=== PATIENT | female | born 1945 | race Caucasian/White ===

== ENCOUNTER → 2017-09-27 08:51 | Outpatient (CLI) | payer MEDICARE, OTHER, SELFPAY ==
[2017-09-27 09:51] LABS: Cholesterol 327 mg/dL (200); High Density Lipoprotein 39 mg/dL; Triglycerides 292 mg/dL; Very Low Density Lipoprotein 58 mg/dL (5-40)
[2017-09-27 09:56] LABS: Hemoglobin A1c 6.7 % (4.2-6.3)
== END ==
PROVIDERS: Family Provider Internal Medicine; PCP Internal Medicine; Visit Provider Internal Medicine
DX: E11.9 Type 2 diabetes mellitus without complications (principal); Z79.899 Other long term (current) drug therapy
CPT/HCPCS: 36415; 80061; 83036

== ENCOUNTER → 2017-10-02 10:39 | Outpatient (CLI) | payer MEDICARE, OTHER, SELFPAY ==
[2017-10-02 11:00] VITALS: PULSE 86; PULSE 89; PULSE 90; PULSE 91; O2SAT 93; O2SAT 94; O2SAT 95; O2SAT 96
--- NOTE | 2017-10-02 11:12 | CPS ---
Addendum entered by Aminta Snyder 10/02/17 11:13: Original Note: PT ARRIVED ON 3L PULSE DOSE OXYGEN. PLACED PATIENT ON ROOM AIR. SHE REMAINED ON ROOM AIR FOR ENTIRE TEST. LOWEST SAT 94% ON ROOM AIR.
--- NOTE | 2017-10-02 12:23 | WT_ITS ---
PSN 6 Minute Walk Test - 6 Minute Walk Test 6 Minute Walk Test: 6 Minute Walk Test PSN:6-Minute Walk Test Start: 10/02/17 11: 10 Freq: Status: Active Protocol: RESP.6MINW Document 10/02/17 11:00 EW (Rec: 10/02/17 11:13 EW [id number]) 6 Minute Walk Test Date Performed 10/02/17 Time Performed 11:00 Height 5 ft 3 in Weight: 245 lb Weight in Pounds 245.[address]: Arya Robertson Assistive device used: Walker Pre-test Oxygen Delivery Method Room Air Pulse Ox (%) 94 Pulse Rate (60-100 beats/min) 86 Dyspnea Clayton Scale (0-10) 2 Exertion Clayton Scale (6-20) 8 1st minute Oxygen Delivery Method Room Air Pulse Ox (%) 96 Pulse Rate (60-100 beats/min) 89 2nd minute Oxygen Delivery Method Room Air Pulse Ox (%) 93 Pulse Rate (60-100 beats/min) 91 3rd minute Oxygen Delivery Method Room Air Pulse Ox (%) 96 Pulse Rate (60-100 beats/min) 90 4th minute Oxygen Delivery Method Room Air Pulse Ox (%) 94 Pulse Rate (60-100 beats/min) 89 Number of Rests Taken 1 5th minute Oxygen Delivery Method Room Air Pulse Ox (%) 95 Pulse Rate (60-100 beats/min) 91 Number of Rests Taken 1 6th minute Oxygen Delivery Method Room Air Pulse Ox (%) 96 Pulse Rate (60-100 beats/min) 91 Post-test Oxygen Delivery Method Room Air Pulse Ox (%) 95 Pulse Rate (60-100 beats/min) 86 Dyspnea Clayton Scale (0-10) 3 Exertion Clayton Scale (6-20) 14 Full Laps Walked 5 Partial Lap, Number of Tiles Walked 28 Total Distance Walked (ft) 323 10/02/17 11:12 Cardiopulmonary Services by Aminta Snyder Addendum entered by Aminta Snyder 10/02/17 11:13: Original Note: PT ARRIVED ON 3L PULSE DOSE OXYGEN. PLACED PATIENT ON ROOM AIR. SHE REMAINED ON ROOM AIR FOR ENTIRE TEST. LOWEST SAT 94% ON ROOM AIR. Initialized on 10/02/17 11:12 - END OF NOTE - Interpretation Interpretation: The patient ambulated 323 feet over the course of 6 minutes on room air with the use of a walker. Pretesting oxygen saturation was noted to be 94% on room air. With ambulation, the vick oxygen saturation was 93%. Although there was evidence of impaired walk distance, there was no significant exertional oxygen desaturation. - Recommendations Recommendations: There is no indication for the use of supplemental oxygen at this time.
== END ==
PROVIDERS: Family Provider Internal Medicine; PCP Internal Medicine; Visit Provider Internal Medicine Critical Care Medicine
DX: J44.9 Chronic obstructive pulmonary disease, unspecified (principal); J96.11 Chronic respiratory failure with hypoxia; I27.20 Pulmonary hypertension, unspecified; G47.33 Obstructive sleep apnea (adult) (pediatric); E66.9 Obesity, unspecified
CPT/HCPCS: 94618

== ENCOUNTER → 2017-10-10 10:11 | Outpatient (CLI) | payer MEDICARE, OTHER, SELFPAY ==
--- NOTE | 2017-10-11 17:50 | PFTCOMP ---
COMPLETE PULMONARY FUNCTION TEST INTERPRETATION Brief HPI: Patient is a 71 year old female, currently under the care of Brittany Parsons, who presents to [facility] for complete pulmonary function tests secondary to diagnosis of COPD. Respiratory therapist reports good effort and reproducible results. Interpretation: Forced expiration spirometry shows a moderately-severe large airways obstructive ventilatory defect with an FEV1 of 57 % predicted. There is no significant bronchodilator response by ATS criteria. Spirograms are of good quality and plateau slowly, indicating slowly emptying areas of the lungs. The respiratory flow volume loop shows decreased expiratory flow rates at all lung volumes consistent with airway obstruction. Lung volumes by body plethysmography show a normal total lung capacity at 4.13 L, 89 % predicted. FRC and RV are elevated out of proportion. Lung volume measurements are consistent with air-trapping. Diffusion capacity by carbon monoxide is decreased at 49 % predicted. The airway resistance is elevated. Compared to previous pulmonary function tests from 01/10/2017, there has been a significant improvement in FVC, FEV1 and TLC by 23%, 14% and 19% respectively. Impression: Irreversible moderately severe large airways obstructive ventilatory defect resulting in air trapping. There has been improvement compared to previous study.
--- NOTE | 2017-10-11 17:53 | PFTCOMP_ITS ---
COMPLETE PULMONARY FUNCTION TEST INTERPRETATION Brief HPI: Patient is a 71 year old female, currently under the care of Brittany Parsons, who presents to [facility] for complete pulmonary function tests secondary to diagnosis of COPD. Respiratory therapist reports good effort and reproducible results. Interpretation: Forced expiration spirometry shows a moderately-severe large airways obstructive ventilatory defect with an FEV1 of 57 % predicted. There is no significant bronchodilator response by ATS criteria. Spirograms are of good quality and plateau slowly, indicating slowly emptying areas of the lungs. The respiratory flow volume loop shows decreased expiratory flow rates at all lung volumes consistent with airway obstruction. Lung volumes by body plethysmography show a normal total lung capacity at 4.13 L , 89 % predicted. FRC and RV are elevated out of proportion. Lung volume measurements are consistent with air-trapping. Diffusion capacity by carbon monoxide is decreased at 49 % predicted. The airway resistance is elevated. Compared to previous pulmonary function tests from 01/10/2017, there has been a significant improvement in FVC, FEV1 and TLC by 23%, 14% and 19% respectively. Impression: Irreversible moderately severe large airways obstructive ventilatory defect resulting in air trapping. There has been improvement compared to previous study.
== END ==
PROVIDERS: Family Provider Internal Medicine; PCP Internal Medicine; Visit Provider Nurse Practitioner Acute Care
DX: J44.9 Chronic obstructive pulmonary disease, unspecified (principal); R06.02 Shortness of breath
CPT/HCPCS: 94060; 94726; 94729

== ENCOUNTER → 2017-10-25 09:16 | Outpatient (CLI) | payer MEDICARE, OTHER, SELFPAY ==
[2017-10-25 10:22] LABS: Microalbumin,Random Urine 35.4 mg/L (NO RANGE EST.)
[2017-10-25 11:13] LABS: ALB/GLOB Ratio 1.2 RATIO (0.9-2.4); AST(SGOT) 15 U/L (15-37); Alanine Aminotransfer ALT/SGPT 26 U/L (13-56); Albumin, Serum 3.9 g/dL (3.2-5.0); Alkaline Phosphatase 72 U/L (45-117); Anion Gap 7 (5-15); BUN 12 mg/dL (7-18); Chloride 102 mmol/L (98-107); Creatinine, Serum 0.57 mg/dL (0.55-1.02); EST Glomerular Filtration Rate 111 mL/min (>60); Est Glom Filt Rate - Afr Amer 135 mL/min (>60); Globulin 3.3 g/dL (2.2-4.2); Glucose 96 mg/dL (74-106); Potassium 3.8 mmol/L (3.5-5.1); Protein, Total 7.2 g/dL (6.4-8.2); Sodium Level 140 mmol/L (136-145)
== END ==
PROVIDERS: Family Provider Internal Medicine; PCP Internal Medicine; Visit Provider Nurse Practitioner Family
DX: E11.9 Type 2 diabetes mellitus without complications (principal); Z79.899 Other long term (current) drug therapy
CPT/HCPCS: 36415; 80053; 82043; 82570

== ENCOUNTER → 2017-12-11 07:44 | Outpatient (CLI) | payer MEDICARE, OTHER, SELFPAY ==
[2017-12-11 08:34] LABS: Cholesterol 283 mg/dL (200); High Density Lipoprotein 37 mg/dL; Triglycerides 294 mg/dL; Very Low Density Lipoprotein 59 mg/dL (5-40)
== END ==
PROVIDERS: Family Provider Internal Medicine; PCP Internal Medicine; Visit Provider Nurse Practitioner Family
DX: E11.9 Type 2 diabetes mellitus without complications (principal); Z79.899 Other long term (current) drug therapy
CPT/HCPCS: 36415; 80061

== ENCOUNTER → 2017-12-19 08:27 | Outpatient (CLI) | payer MEDICARE, OTHER, SELFPAY ==
--- NOTE | 2017-12-19 08:29 | ECHOD_ITS ---
Reason For Study: Dyspnea/SOB Procedure This was a 2D Doppler, Color Flow transthoracic echocardiogram. The exam was of adequate technical quality. Exam performed in department. Left Ventricle Normal LV size. Moderate concentric left ventricular hypertrophy. Left ventricular systolic function is normal. The estimated ejection fraction is 65 %. Transmitral diastolic flow velocities suggest moderate (stage 2) diastolic dysfunction (pseudonormal pattern). No regional wall motion abnormalities noted. Right Ventricle Normal RV size. Normal systolic function. Atria The left atrium is severely enlarged. Normal right atrium. No doppler evidence for ASD. Mitral Valve There is moderate to severe mitral annular calcification. Extension of the mitral annular calcification onto the posterior mitral valve leaflet. Mild (1+) mitral valve insufficiency. Tricuspid Valve Normal tricuspid valve. Mild tricuspid valve insufficiency. Right ventricular systolic pressure estimated to be 45 mmHg. Aortic Valve Trisinus/trileaflet aortic valve. Normal aortic valve. Pulmonic Valve The pulmonic valve is not well visualized. Trivial pulmonic valve insufficiency. Great Vessels Normal sized aortic root. Calcified aortic root. Pericardium/Pleural No pericardial effusion. MMode/2D Measurements & Calculations LVIDd: 5.2 cm IVSd: 1.8 cm Ao root diam: 2.7 cm LVIDs: 3.5 cm LVPWd: 1.3 cm LA dimension: 4.7 cm RVDd: 3.6 cm FS: 32.1 % LAV(MOD-bp): 88.2 ml EDV(MOD-sp4): 75.7 ml SV(MOD-sp4): 48.0 ml LAV(MOD-bp) Indexed: 40.8 ml/m2 ESV(MOD-sp4): 27.7 ml LAV(MOD-sp2): 72.3 ml EF(MOD-sp4): 63.4 % LAV(MOD-sp4): 103.0 ml LA A4 area: 27.3 cm2 RA A4 area: 12.5 cm2 Doppler Measurements & Calculations MV E max nick: 88.8 cm/sec Lat Peak E' Nick: 13.6 cm/sec Med Peak E' Nick: 5.2 cm/sec MV A max nick: 75.5 cm/sec E/E' lat: 6.5 E/E' med: 17.2 MV E/A: 1.2 Ao V2 max: 180.4 cm/sec LV V1 max: 107.5 cm/sec PA V2 max: 82.2 cm/sec Ao max P.0 mmHg LV V1 max P.6 mmHg Ao V2 mean: 126.8 cm/sec Ao mean P.9 mmHg Ao V2 VTI: 41.7 cm TR max nick: 305.8 cm/sec TR max P.4 mmHg Interpretation Summary Left ventricular systolic function is normal. The estimated ejection fraction is 65 %. Moderate concentric left ventricular hypertrophy. The left atrium is severely enlarged. There is moderate to severe mitral annular calcification. Extension of the mitral annular calcification onto the posterior mitral valve leaflet. Mild (1+) mitral valve insufficiency. Mild tricuspid valve insufficiency. Trivial pulmonic valve insufficiency. Calcified aortic root. Right ventricular systolic pressure estimated to be 45 mmHg. Transmitral diastolic flow velocities suggest diastolic dysfunction (pseudonormal pattern). Ordering Physician: Quique Mims Referring Physician: Quique Mims Performed By: Tamiko Joy, TAURUS, RVT
== END ==
PROVIDERS: Family Provider Internal Medicine; PCP Internal Medicine; Visit Provider Internal Medicine
DX: I25.10 Atherosclerotic heart disease of native coronary artery without angina pectoris (principal)
CPT/HCPCS: 93306

== ENCOUNTER → 2018-04-19 09:09 | Outpatient (CLI) | payer MEDICARE, OTHER, SELFPAY ==
[2018-04-19 09:49] VITALS: PULSE 67; PULSE 69; PULSE 72; PULSE 74; PULSE 78; PULSE 81; O2SAT 94; O2SAT 95; O2SAT 96; O2SAT 97
--- NOTE | 2018-04-20 05:57 | PCM.PSN.6M ---
PSN 6 Minute Walk Test - 6 Minute Walk Test 6 Minute Walk Test: 6 Minute Walk Test PSN:6-Minute Walk Test Start: 04/19/18 09:49 Freq: Status: Active Protocol: RESP.6MINW Document 04/19/18 09:49 SMB (Rec: 04/19/18 09:53 SMB [id number]) 6 Minute Walk Test Date Performed 04/19/18 Time Performed 09:22 Height 5 ft 6 in Weight: 107.501 kg Weight in Pounds 237.[address]: Brittany Parsons Assistive device used: None Pre-test Oxygen Delivery Method Room Air Pulse Ox (%) 97 Pulse Rate (60-100 beats/min) 67 Dyspnea Clayton Scale (0-10) 3 Exertion Clayton Scale (6-20) 11 1st minute Oxygen Delivery Method Room Air Pulse Ox (%) 95 Pulse Rate (60-100 beats/min) 74 2nd minute Oxygen Delivery Method Room Air Pulse Ox (%) 96 Pulse Rate (60-100 beats/min) 81 Number of Rests Taken 1 3rd minute Oxygen Delivery Method Room Air Pulse Ox (%) 95 Pulse Rate (60-100 beats/min) 81 4th minute Oxygen Delivery Method Room Air Pulse Ox (%) 94 Pulse Rate (60-100 beats/min) 78 Number of Rests Taken 1 5th minute Oxygen Delivery Method Room Air Pulse Ox (%) 95 Pulse Rate (60-100 beats/min) 72 6th minute Oxygen Delivery Method Room Air Pulse Ox (%) 95 Pulse Rate (60-100 beats/min) 81 Post-test Oxygen Delivery Method Room Air Pulse Ox (%) 96 Pulse Rate (60-100 beats/min) 69 Dyspnea Clayton Scale (0-10) 3 Exertion Clayton Scale (6-20) 14 Full Laps Walked 6 Partial Lap, Number of Tiles Walked 35 Total Distance Walked (ft) 389 - Interpretation Interpretation: The patient was able to ambulate only 389 feet over the course of 6 minutes on room air with no assistive devices and 2 breaks. The patient experienced no significant desaturation or tachycardia. These findings are consistent with a musculoskeletal limitation. - Recommendations Recommendations: No supplemental oxygen is indicated at this time. However, sensitivity for desaturation was significantly reduced given minimal distance traveled.
== END ==
PROVIDERS: Family Provider Internal Medicine; PCP Internal Medicine; Referring Provider Nurse Practitioner Acute Care; Visit Provider Nurse Practitioner Acute Care
DX: R06.02 Shortness of breath (principal)
CPT/HCPCS: 94618

== ENCOUNTER → 2018-04-30 08:31 | Outpatient (CLI) | payer MEDICARE, OTHER, SELFPAY ==
[2018-04-30 09:08] LABS: Microalbumin,Random Urine 63.4 mg/L (NO RANGE EST.); Microalbumin:Creatinine Ratio 74.9 mg/g CRE (<30 mg/g CRE)
[2018-04-30 09:13] LABS: Hemoglobin A1c 6.4 % (4.2-6.3)
[2018-04-30 09:15] LABS: BUN 17 mg/dL (7-18); Creatinine, Serum 0.67 mg/dL (0.55-1.02); Glucose 122 mg/dL (74-106)
[2018-04-30 09:16] LABS: Anion Gap 6 (5-15); BUN/Creat Ratio 25.4 RATIO (10-20); Calcium,Total 8.9 mg/dL (8.5-10.1); Chloride 101 mmol/L (98-107); Cholesterol 287 mg/dL (200); EST Glomerular Filtration Rate 93 mL/min (>60); Est Glom Filt Rate - Afr Amer 112 mL/min (>60); High Density Lipoprotein 35 mg/dL; Potassium 4.4 mmol/L (3.5-5.1); Sodium Level 139 mmol/L (136-145); Triglycerides 310 mg/dL; Very Low Density Lipoprotein 62 mg/dL (5-40)
== END ==
PROVIDERS: Family Provider Internal Medicine; PCP Internal Medicine; Referring Provider Internal Medicine; Visit Provider Internal Medicine
DX: E11.9 Type 2 diabetes mellitus without complications (principal); E78.5 Hyperlipidemia, unspecified; I10 Essential (primary) hypertension
CPT/HCPCS: 36415; 80048; 80061; 82043; 82570; 83036

== ENCOUNTER → 2018-05-08 10:17 | Outpatient (CLI) | payer MEDICARE, OTHER, SELFPAY ==
--- NOTE | 2018-05-08 10:21 | BI_ITS ---
MAMMOGRAPHY - BILATERAL SCREENING REASON FOR EXAM: Female, 72 years old. Routine annual screening examination. PERTINENT HISTORY: Non-contributory. TECHNIQUE: Digital bilateral breast jae (3D mammographic acquisition) in the CC and MLO projections. 2-D mediolateral oblique (MLO) and craniocaudad (CC) views of both breasts were obtained. CAD: Full Field Digital Mammography with Computer Added Detection was performed. COMPARISON: Comparison is made with prior outside examination dated August 04, 2015. FINDINGS: Breast Composition: There are scattered areas of fibroglandular density. There are no dominant masses or suspicious calcifications. No other significant abnormalities are identified. There has been no significant change since the prior study. BI/SCREENING MAMM (CAD), BILAT IMPRESSION: Stable bilateral screening mammogram. Yearly follow-up mammogram recommended. (A) ASSESSMENT CATEGORY: BIRADS Category 1: Negative. A letter regarding these results will be sent to the patient by the facility within 30 days. Approximately 10% of breast cancers are not detected by mammography. A normal mammogram should not delay biopsy of a clinically suspicious abnormality. [id number] Electronically Signed: Omar Reyes MD at 11:04 EDT Tel [phone], Service support ,
== END ==
PROVIDERS: Family Provider Internal Medicine; PCP Internal Medicine; Referring Provider Internal Medicine; Visit Provider Internal Medicine
DX: Z12.31 Encounter for screening mammogram for malignant neoplasm of breast (principal)
CPT/HCPCS: 77063; 77067

== ENCOUNTER 2018-05-16 08:44 | Day surgery (SDC) | payer MEDICARE, OTHER, SELFPAY ==
[2018-05-16] VITALS (17 sets, daily range): BP systolic 126–167; BP diastolic 68–107; PULSE 92–139; RESP 16; TEMP 36.7–37.2; O2SAT 92–96; BMI 42.3
[2018-05-16 09:25] LABS: Bedside Glucose 113 mg/dL (70-110)
--- NOTE | 2018-05-16 09:28 | EKG12_ITS ---
Test Reason : TACHYCARDIA Blood Pressure : / mmHG Vent. Rate : 130 BPM Atrial Rate : 138 BPM P-R Int : 000 ms QRS Dur : 092 ms QT Int : 354 ms P-R-T Axes : 000 029 -73 degrees QTc Int : [address] & T wave abnormality, consider inferior ischemia Abnormal ECG When compared with ECG of 01-JUN-2017 20:01, Atrial fibrillation has replaced Sinus rhythm Vent. rate has increased BY [address] now depressed in Inferior leads ST now depressed in Anterolateral leads T wave inversion now evident in Inferior leads Confirmed by TRINH LUTZ ([id number]), video effects editor FARAZ JAMES ([id number]) on 05/22/2018 11:29:53 AM Referred By: Promise Bond Confirmed By:TRINH LUTZ
--- NOTE | 2018-05-16 09:50 | EKG12_ITS ---
Test Reason : TACHYCARDIA Blood Pressure : / mmHG Vent. Rate : 093 BPM Atrial Rate : 093 BPM P-R Int : 198 ms QRS Dur : 092 ms QT Int : 374 ms P-R-T Axes : 000 031 056 degrees QTc Int : 465 ms Normal sinus rhythm Nonspecific ST abnormality Abnormal ECG When compared with ECG of 16-MAY-2018 09:36, MANUAL COMPARISON REQUIRED, DATA IS UNCONFIRMED Confirmed by TRINH LUTZ ([id number]), editor managing newspaper FARAZ JAMES ([id number]) on 05/22/2018 11:30:03 AM Referred By: Promise Bond Confirmed By:TRINH LUTZ
[2018-05-16 10:03] LABS: Anion Gap 11 (5-15); BUN 11 mg/dL (7-18); BUN/Creat Ratio 16.8 RATIO (10-20); Calcium,Total 9.1 mg/dL (8.5-10.1); Chloride 103 mmol/L (98-107); Creatinine, Serum 0.65 mg/dL (0.55-1.02); EST Glomerular Filtration Rate 95 mL/min (>60); Est Glom Filt Rate - Afr Amer 115 mL/min (>60); Glucose 111 mg/dL (74-106); Magnesium 1.6 mg/dL (1.6-2.6); Potassium 3.2 mmol/L (3.5-5.1); Sodium Level 139 mmol/L (136-145)
--- NOTE | 2018-05-16 10:36 | OP.ENDO_ITS ---
Patient Name: Cayla Chisholm Procedure Date: 05/16/2018 9:58 AM Date of : 1945 Age: 72 Procedure: Colonoscopy Indications: Screening for colorectal malignant neoplasm Providers: Promise Bond MD Referring MD: Promise Bond MD Medicines: Monitored Anesthesia Care Patient Profile: Last Colonoscopy: 10 years ago. Complications: No immediate complications. Procedure: Pre-Anesthesia Assessment: - Prior to the procedure, a History and Physical was performed, and patient medications and allergies were reviewed. The patient's tolerance of previous anesthesia was also reviewed. The risks and benefits of the procedure and the sedation options and risks were discussed with the patient. All questions were answered, and informed consent was obtained. Prior Anticoagulants: The patient has taken Xarelto (rivaroxaban), last dose was 5 days prior to procedure. ASA Grade Assessment: III - A patient with severe systemic disease. After reviewing the risks and benefits, the patient was deemed in satisfactory condition to undergo the procedure. After I obtained informed consent, the scope was passed under direct vision. Throughout the procedure, the patient's blood pressure, pulse, and oxygen saturations were monitored continuously. The Colonoscope was introduced through the anus and advanced to the cecum, identified by the appendiceal orifice, ileocecal valve and palpation. The colonoscopy was performed without difficulty. The patient tolerated the procedure well. The quality of the bowel preparation was good. Scope In: 10:09:44 AM Scope Withdrawal Time 0 hours 13 minutes 16 seconds Scope Out: 10:29:41 AM Total Procedure Duration Time 0 hours 19 minutes 57 seconds Findings: Multiple small-mouthed diverticula were found in the sigmoid colon and descending colon. The entire examined colon appeared normal. Internal hemorrhoids were found during retroflexion. The hemorrhoids were Grade I (internal hemorrhoids that do not prolapse). Hemorrhoids were found on perianal exam. The exam was otherwise without abnormality. Impression: - Diverticulosis in the sigmoid colon and in the descending colon. - The entire examined colon is normal. - Internal hemorrhoids. - The examination was otherwise normal. - No specimens collected. Recommendation: - Discharge patient to home. - High fiber diet. - Continue present medications. - Repeat colonoscopy in 10 years for screening purposes. Procedure Code(s): --- Professional --- G0121, Colorectal cancer screening; colonoscopy on individual not meeting criteria for high risk Diagnosis Code(s): --- Professional --- Z12.11, Encounter for screening for malignant neoplasm of colon K64.0, First degree hemorrhoids K57.30, Diverticulosis of large intestine without perforation or abscess without bleeding CPT copyright 2017 [employer]. All rights reserved. The codes documented in this report are preliminary and upon braille coder review may be revised to meet current compliance requirements. MD Promise Benson MD 05/16/2018 10:36:21 AM This report has been signed electronically. Number of Addenda: 0 Note Initiated On: 05/16/2018 9:58 AM
--- NOTE | 2018-05-16 13:08 | SUR.PHASEI ---
AFTER CARDIZEM GIVEN HEART RATE DECREASED TO IN THE 90S FOR ABOUT 15MINUTES, HEART RATE STARTING TO CREEP BACK UP. DR SAMS WILL SEE PT AT 1400. DR LOGAN OK WITH PATIENT BEING DISCHARGED LONG SHE GOES STRAIGHT TO DR SAMS
== END 2018-05-16 13:29 | disposition home or self-care (01) ==
LOC: EN 08:44 → AC 08:45
PROVIDERS: Family Provider Internal Medicine; PCP Internal Medicine; Referring Provider Surgery; Visit Provider Surgery
PROC: 0DJD8ZZ Inspection of Lower Intestinal Tract, Via Natural or Artificial Opening Endoscopic (ICD-10-PCS; CPT 45378; principal; 2018-05-16 10:10)
DX: Z12.11 Encounter for screening for malignant neoplasm of colon (principal); K57.30 Diverticulosis of large intestine without perforation or abscess without bleeding; K64.0 First degree hemorrhoids; K21.9 Gastro-esophageal reflux disease without esophagitis; I11.0 Hypertensive heart disease with heart failure; I50.32 Chronic diastolic (congestive) heart failure; I25.10 Atherosclerotic heart disease of native coronary artery without angina pectoris; I27.20 Pulmonary hypertension, unspecified; G47.33 Obstructive sleep apnea (adult) (pediatric); E11.9 Type 2 diabetes mellitus without complications; F41.9 Anxiety disorder, unspecified; E78.5 Hyperlipidemia, unspecified; J44.9 Chronic obstructive pulmonary disease, unspecified; I48.0 Paroxysmal atrial fibrillation; E66.01 Morbid (severe) obesity due to excess calories; I25.2 Old myocardial infarction; Z68.39 Body mass index [BMI] 39.0-39.9, adult; F32.9 Major depressive disorder, single episode, unspecified; J45.909 Unspecified asthma, uncomplicated; Z79.02 Long term (current) use of antithrombotics/antiplatelets; Z79.51 Long term (current) use of inhaled steroids; Z79.84 Long term (current) use of oral hypoglycemic drugs; Z79.899 Other long term (current) drug therapy
CPT/HCPCS: G0121; 80048; 82962; 83735; 93005; J7120

== ENCOUNTER → 2018-05-22 08:50 | Outpatient (CLI) | payer MEDICARE, OTHER, SELFPAY ==
--- NOTE | 2018-05-22 08:56 | BD_ITS ---
STUDY: DUAL ENERGY X-RAY ABSORPTIOMETRY / DXA REASON FOR EXAM: Female, 72 years old. The patient is postmenopausal. Loss of height. TECHNIQUE: Bone Mineral Density (BMD) measurements of lumbar spine and bilateral hips were obtained. COMPARISON: None. FINDINGS: Lumbar Spine (L1-L4): g/cm2 (1.004) / T-score (-1.5) / Z-score (0.2) Findings are suggestive of osteopenia with a moderate fracture risk. Left Femur Total: g/cm2 (0.778) / T-score (-1.8) / Z-score (-0.3) Left Femoral Neck: g/cm2 (0.669) / T-score (-2.7) / Z-score (-0.9) Right Femur Total: g/cm2 (0.764) / T-score (-1.9) / Z-score (-0.5) Right Femoral Neck: g/cm2 (0.818) / T-score (-0.6) / Z-score (0.1) BD/Dexa Bone Density Study IMPRESSION: The patient is considered osteoporotic as outlined below according to World Loc Organization (WHO) criteria with a high fracture risk. Reference Information: The T-score is the number of standard deviations above or below the standard which is normal for young adults at their peak bone mineral density. The World Health Organization (WHO) interprets the T-scores as follows: Above -1 Normal bone density Between -1 and -2.5 Osteopenia Equal to / or below -2.5 Osteoporosis As a practical clinical guideline, osteopenia may be graded as follows: Mild -1 through -1.5 Moderate -1.6 through -2.0 Severe -2.1 through -2.4 The Z-score is the number of standard deviations above or below age-matched controls. A Z-score of less than -1.5 would be considered abnormal. References: 1. NIH Osteoporosis and Related Bone Diseases http://www.osteo.org 2. International Society for Clinical Densitometry http://www.iscd.org 3. National Osteoporosis Foundation http://www.nof.org Electronically Signed: Omar Reyes MD at 14:51 EDT Tel [phone], Service support ,
== END ==
PROVIDERS: Family Provider Internal Medicine; PCP Internal Medicine; Referring Provider Internal Medicine; Visit Provider Internal Medicine
DX: Z78.0 Asymptomatic menopausal state (principal)
CPT/HCPCS: 77080

== ENCOUNTER → 2018-06-01 09:22 | Outpatient (CLI) | payer MEDICARE, OTHER, SELFPAY ==
[2018-06-01 10:07] LABS: Anion Gap 7 (5-15); BUN 15 mg/dL (7-18); BUN/Creat Ratio 24.2 RATIO (10-20); Calcium,Total 9.1 mg/dL (8.5-10.1); Chloride 101 mmol/L (98-107); Creatinine, Serum 0.62 mg/dL (0.55-1.02); EST Glomerular Filtration Rate 101 mL/min (>60); Est Glom Filt Rate - Afr Amer 122 mL/min (>60); Glucose 96 mg/dL (74-106); Magnesium 1.7 mg/dL (1.6-2.6); Potassium 3.7 mmol/L (3.5-5.1); Sodium Level 140 mmol/L (136-145)
[2018-06-01 10:14] LABS: Cholesterol 274 mg/dL (200); High Density Lipoprotein 36 mg/dL; Triglycerides 327 mg/dL; Very Low Density Lipoprotein 65 mg/dL (5-40)
== END ==
PROVIDERS: Nurse Practitioner Family; Family Provider Internal Medicine; PCP Internal Medicine; Referring Provider Internal Medicine; Visit Provider Internal Medicine
DX: E78.5 Hyperlipidemia, unspecified (principal); E87.6 Hypokalemia
CPT/HCPCS: 36415; 80048; 80061; 83735

== ENCOUNTER 2018-06-24 14:11 | Emergency (ER) | payer MEDICARE, OTHER, SELFPAY ==
[2018-06-21 16:55] VITALS: BMI 38.6
[2018-06-24 14:11] VITALS: BP 162/73; PULSE 84; RESP 16; TEMP 36.6; O2SAT 96; BMI 39.9
--- NOTE | 2018-06-24 14:46 | RAD_ITS ---
STUDY: X-RAY - RIGHT WRIST REASON FOR EXAM: Female, 72 years old. Pain after fall TECHNIQUE: Three view(s) of the RIGHT wrist were obtained. COMPARISON: None. FINDINGS: Bones: A plate and screws are present along the volar aspect of the distal radius. There is deformity along the dorsal distal radius on the lateral view. There is an old fracture of the ulnar styloid. Joints: There are moderate degenerative changes of the radioulnar joint. There are moderate degenerative changes in the first CMC joint. Soft tissues: There is mild diffuse soft tissue swelling. Foreign body: None RAD/Wrist min 3 Views IMPRESSION: Hardware is present along the volar distal radius and is intact. There is deformity along the dorsal distal radius which may be related to the prior trauma, however an acute injury cannot be excluded since this is only seen on one view. Consider conservative management with repeat imaging in 7-10 days. Electronically Signed: Lisa Engle MD at 16:26 EST Tel Direct: [phone], Service support ,
--- NOTE | 2018-06-24 14:50 | ED.DCSUM_ITS ---
- ER Visit Summary Date of Service: 06/24/18 Chief Complaint: Fall complaining of right wrist pain History of Present Illness: The patient is a 72 F past medical history of prior wrist fracture with orthopedic repair with hardware. History of CAD, MA, COPD, cge-wtdcjay-qixdpcusi diabetes, A. fib on Xarelto. Patient was visiting her son at this hospital. She went to get in a wheelchair missed and fell injuring her right wrist. Denies hitting her head. No LOC. Denies any other complaints. Planning of right wrist discomfort. Denies any hip, back or head injuries. Patient is right-hand dominant. Physical Examination: Older female no acute distress. Sitting upright in bed with family at bedside. Vital signs are stable afebrile. HEENT exam unremarkable atraumatic. Nontender. Pupils are round reactive light. No signs of trauma. C-spine nontender. Trachea midline. Lungs clear to auscultation bilaterally. Heart regular rhythm and rate in the 80s. Chest wall nontender. Abdomen soft nontender. Normal bowel sounds no peritoneal signs. Pelvic girdle intact. Extremities she is moving all 4 extremities. Her left upper extremity is nontender with normal therapeutic specialist strength. Both lower extremities are nontender. Dorsi and plantar flexion intact. No deformities. Both hips are nontender. Right shoulder and elbow are nontender without deformity. Her right wrist has mild tenderness over the distal dorsal radius. There is no gross bony deformity. She is able to squeeze her right hand. Radial pulses intact. The hand itself is nontender. With normal range of motion. Test Results: Right wrist x-ray 3 views shows no acute fracture or dislocation. There is old orthopedic hardware on the distal radius to repair a prior fracture. There is also an old distal ulnar styloid fracture but no acute. Emergency Department Course and Treatment: Patient did not want any medication for pain while in the emergency department. I went over the x-rays with the patient. Treatment Plan: Treated as a right wrist sprain. Ice and elevate. Tylenol for pain. Velcro wrist splint. Follow-up if not improving. Disposition: Discharge Impression: Acute fall Acute right wrist sprain This note was generated with [employer] dictation software. It may contain incorrect words, spelling, and punctuation that were not noted in review of the chart prior to signing ED Disposition - Plan for ED Patient: Chief Complaint: Fall Referrals: Quique Mims MD [Primary Care Provider] -
--- NOTE | 2018-06-24 15:45 | ED.DEP ---
ED Disposition - Plan for ED Patient: Disposition: Home or Assisted Living Chief Complaint: Fall Instructions: ED Sprain Wrist Referrals: Quique Mims MD [Primary Care Provider] - 1 Week if not improving Karly Kirkpatrick DO [STAFF PHYSICIAN] - 1 Week if not improving Additional Instructions: Ice and elevate right wrist. Tylenol for pain. Follow-up with either your primary care physician, Dr. CARL Mace who did your initial wrist repair years ago or Dr. Karly Kirkpatrick if not improving.
[2018-06-24 16:09] VITALS: PULSE 75; RESP 16; O2SAT 96
--- NOTE | 2018-06-24 16:10 | ED.RN ---
REVIEWED D/C INSTRUCTIONS, FOLLOW UP CARE, AND S/S THAT WOULD WARRANT A RETURN TO THE ED WITH PT. PT VERBALIZED AN UNDERSTANDING AND DENIES FURTHER QUESTIONS FOR THIS RN. PT SKIN P/W/D, RESP EVEN AND UNLABORED, PT A&O X 3, NO DISTRESS NOTED. PT ASSISTED OUT OF ED IN WHEELCHAIR.
--- OUTSIDE RECORDS SUMMARY | 2018-08-17 23:54 | XMS RPT_ITS ---
:1945 Author Organization OHIP Support Name Relationship Address Phone ALEX CHISHOLM Unavailable [address] + [place] [address] KRISTYN CHISHOLM Unavailable [address] + [place] [address] R Unavailable Unavailable Unavailable ALEX CHISHOLM Unavailable [address] + [place] [address] KRISTYN CHISHOLM Unavailable [address] + [place] [address] R Unavailable Unavailable Unavailable ALEX CHISHOLM Unavailable [address] + [place] [address] KRISTYN CHISHOLM Unavailable [address] + [place] [address] R Unavailable Unavailable Unavailable ALEX CHISHOLM Unavailable [address] + [place] [address] KRISTYN CHISHOLM Unavailable [address] + [place] [address] R Unavailable Unavailable Unavailable ALEX CHISHOLM Unavailable [address] + [place] [address] KRISTYN CHISHOLM Unavailable [address] + [place] [address] R Unavailable Unavailable Unavailable ALEX CHISHOLM Unavailable [address] + [place] [address] KRISTYN CHISHOLM Unavailable [address] + [place] [address] R Unavailable Unavailable Unavailable ALEX CHISHOLM Unavailable [address] + [place] [address] KRISTYN CHISHOLM Unavailable [address] + [place] [address] R Unavailable Unavailable Unavailable ALEX CHISHOLM Unavailable [address] + [place] [address] HOFSTETTERKRISTYN Unavailable [address] + [place] [address] R Unavailable Unavailable Unavailable ALEX CHISHOLM Unavailable [address] + [place] [address] HOKARLIETETTERKRISTYN Unavailable [address] + [place] [address] R Unavailable Unavailable Unavailable ALEX CHISHOLM Unavailable [address] + [place] [address] HOKARLIETETTERKRISTYN Unavailable [address] + [place] [address] R Unavailable Unavailable Unavailable ALEX CHISHOLM Unavailable [address] + [place] [address] HOKARLIETETTERKRISTYN Unavailable [address] + [place] [address] R Unavailable Unavailable Unavailable ALEX CHISHOLM Unavailable [address] + [place] [address] HOKARLIETETTERKRISTYN Unavailable [address] + [place] [address] R Unavailable Unavailable Unavailable ALEX CHISHOLM Unavailable [address] + [place] [address] HOKARLIETETTERKRISTYN Unavailable [address] + [place] [address] R Unavailable Unavailable Unavailable ALEX CHISHOLM Unavailable [address] + [place] [address] SOFIAERKRISTYN Unavailable [address] + [place] [address] R Unavailable Unavailable Unavailable ALEX CHISHOLM Unavailable [address] + [place] [address] HOKARLIETESIDNEYERKRISTYN Unavailable [address] + [place] [address] R Unavailable Unavailable Unavailable ALEX CHISHOLM Unavailable [address] + [place] [address] KRISTYN CHISHOLM Unavailable [address] + [place] [address] R Unavailable Unavailable Unavailable ALEX CHISHOLM Unavailable [address] + [place] [address] KRISTYN CHISHOLM Unavailable [address] + [place] [address] R Unavailable Unavailable Unavailable ALEX CHISHOLM Unavailable [address] + [place] [address] KRISTYN CHISHOLM Unavailable [address] + [place] [address] R Unavailable Unavailable Unavailable ALEX CHISHOLM Unavailable [address] + [place] [address] KRISTYN CHISHOLM Unavailable [address] + [place] [address] R Unavailable Unavailable Unavailable ALEX CHISHOLM Unavailable [address] + [place] [address] KRISTYN CHISHOLM Unavailable [address] + [place] [address] R Unavailable Unavailable Unavailable ALEX CHISHOLM Unavailable [address] + [place] [address] KRISTYN CHISHOLM Unavailable [address] + [place] [address] R Unavailable Unavailable Unavailable ALEX CHISHOLM Unavailable [address] + [place] [address] KRISTYN CHISHOLM Unavailable [address] + [place] [address] R Unavailable Unavailable Unavailable ALEX CHISHOLM Unavailable [address] + [place] [address] KRISTYN CHISHOLM Unavailable [address] + [place] [address] R Unavailable Unavailable Unavailable ALEX CHISHOLM Unavailable [address] + [place] [address] HOKARLIETETTERKRISTYN Unavailable [address] + [place] [address] R Unavailable Unavailable Unavailable ALEX CHISHOLM Unavailable [address] + [place] [address] HOKARLIETESIDNEYERKRISTYN Unavailable [address] + [place] [address] R Unavailable Unavailable Unavailable ALEX CHISHOLM Unavailable [address] + [place] [address] HOKARLIETETTER, KRISTYN Unavailable [address] + [place] [address] R Unavailable Unavailable Unavailable ALEX CHISHOLM Unavailable [address] + [place] [address] HOFSTETTERKRISTYN Unavailable [address] + [place] [address] R Unavailable Unavailable Unavailable ALEX CHISHOLM Unavailable [address] + [place] [address] HOKARLIETETTERKRISTYN Unavailable [address] + [place] [address] R Unavailable Unavailable Unavailable ALEX CHISHOLM Unavailable [address] + [place] [address] MILENATETTERKRISTYN Unavailable [address] + [place] [address] R Unavailable Unavailable Unavailable ALEX CHISHOLM Unavailable [address] + [place] [address] MILENATETTERKRISTYN Unavailable [address] + [place] [address] R Unavailable Unavailable Unavailable ALEX CHISHOLM Unavailable [address] + [place] [address] MILENATETTERKRISTYN Unavailable [address] + [place] [address] R Unavailable Unavailable Unavailable ALEX CHISHOLM Unavailable [address] + [place] [address] KRISTYN CHISHOLM Unavailable [address] + [place] [address] R Unavailable Unavailable Unavailable ALEX CHISHOLM Unavailable [address] + [place] [address] HOKARLIETETTERKRISTYN Unavailable [address] + [place] [address] R Unavailable Unavailable Unavailable ALEX CHISHOLM Unavailable [address] + [place] [address] HOKARLIETESIDNEYERKRISTYN Unavailable [address] + [place] [address] R Unavailable Unavailable Unavailable ALEX CHISHOLM Unavailable [address] + [place] [address] HOKARLIETETTERKRISTYN Unavailable [address] + [place] [address] R Unavailable Unavailable Unavailable ALEX CHISHOLM Unavailable [address] + [place] [address] HOKARLIETETTKRISTYN TRAN Unavailable [address] + [place] [address] R Unavailable Unavailable Unavailable ALEX CHISHOLM Unavailable [address] + [place] [address] HOKARLIETETTERKRISTYN Unavailable [address] + [place] [address] R Unavailable Unavailable Unavailable ALEX CHISHOLM Unavailable [address] + [place] [address] MILENATETTERKRISTYN Unavailable [address] + [place] [address] R Unavailable Unavailable Unavailable ALEX CHISHOLM Unavailable [address] + [place] [address] KRISTYN CHISHOLM Unavailable [address] + [place] [address] R Unavailable Unavailable Unavailable ALEX CHISHOLM Unavailable [address] + [place] [address] MILENATESIDNEYERKRISTYN Unavailable [address] + [place] [address] R Unavailable Unavailable Unavailable ALEX CHISHOLM Unavailable [address] + [place] [address] MILENASITARICARDOKRISTYN Unavailable [address] + [place] [address] R Unavailable Unavailable Unavailable ALEX CHISHOLM Unavailable [address] + [place] [address] MILENASITARIACRDO KRISTYN Unavailable [address] + [place] [address] R Unavailable Unavailable Unavailable ALEX CHISHOLM Unavailable [address] + [place] [address] MILENASITARICARDOKRISTYN Unavailable [address] + [place] [address] R Unavailable Unavailable Unavailable ALEX CHISHOLM Unavailable [address] + [place] [address] MILENASITARICARDO KRISTYN Unavailable [address] + [place] [address] R Unavailable Unavailable Unavailable Care Team Providers Name Role Leon Carpenter Attending Unavailable Oleghe, Efewongbe Referring Unavailable Oleghe, Efewongbe Attending Unavailable Oleghe, Efewongbe Referring Unavailable Benedict, Gaetano Chi Attending Unavailable Benedict, Gaetano Chi Primary Care Unavailable Reshma Aguirre Attending Unavailable Brittany Parsons Attending Unavailable Benedict, Gaetano Chi Referring Unavailable Ezekiel Perez Attending Unavailable Benedict, Gaetano Chi Referring Unavailable Brittany Parsons Attending Unavailable Benedict, Gaetano Chi Referring Unavailable Benedict, Gaetano Chi Primary Care Unavailable Oleghe, Efewongbe Attending Unavailable Benedict, Gaetano Chi Referring Unavailable Benedict, Gaetano Chi Primary Care Unavailable Brittany Parsons Attending Unavailable Benedict, Gaetano Chi Referring Unavailable Benedict, Gaetano Chi Primary Care Unavailable Oleghe, Efewongbe Attending Unavailable Oleghe, Efewongbe Primary Care Unavailable Arya Robertson D.O. Attending Unavailable Arya Robertson D.O. Referring Unavailable Oleghe, Efewongbe Primary Care Unavailable Brittany Parsons Attending Unavailable Brittany Parsons Referring Unavailable Oleghe, Efewongbe Primary Care Unavailable Timmy Ndiaye [employer] Attending Unavailable Benedict, Gaetano Chi Referring Unavailable Toan Arceo Attending Unavailable Brittany Parsons Referring Unavailable Arya Robertson D.O. Attending Unavailable Arya Robertson D.O. Referring Unavailable Timmy Ndiaye [employer] Attending Unavailable NdiayeTimmy [employer] Referring Unavailable Oleghe, Efewongbe Primary Care Unavailable Timmy Ndiaye [employer]MER[employer]C Attending Unavailable NdiayeTimmy [employer]C Referring Unavailable Oleghe, Efewongbe Primary Care Unavailable Arya Robertson D.O. Attending Unavailable Benedict, Gaetano Chi Referring Unavailable Isadora Love Attending Unavailable Марина Lambert Attending Unavailable Benedict, Gaetano Chi Referring Unavailable Oleghe, Efewongbe Primary Care Unavailable Oleghe, Efewongbe Attending Unavailable Oleghe, Efewongbe Referring Unavailable Oleghe, Efewongbe Primary Care Unavailable Oleghe, Efewongbe Attending Unavailable Oleghe, Efewongbe Referring Unavailable Oleghe, Efewongbe Primary Care Unavailable Oleghe, Efewongbe Attending Unavailable Oleghe, Efewongbe Referring Unavailable Oleghe, Efewongbe Primary Care Unavailable Oleghe, Efewongbe Attending Unavailable Oleghe, Efewongbe Referring Unavailable Oleghe, Efewongbe Primary Care Unavailable Ezekiel Perez Attending Unavailable Oleghe, Efewongbe Attending Unavailable Oleghe, Efewongbe Referring Unavailable Oleghe, Efewongbe Primary Care Unavailable Laury Collins Attending Unavailable Oleghe, Efewongbe Attending Unavailable Oleghe, Efewongbe Referring Unavailable Oleghe, Efewongbe Primary Care Unavailable Brittany Parsons Attending Unavailable Brittany Parsons Referring Unavailable Oleghe, Efewongbe Primary Care Unavailable Oleghe, Efewongbe Attending Unavailable Oleghe, Efewongbe Referring Unavailable Oleghe, Efewongbe Primary Care Unavailable Robotham, Promise Attending Unavailable Oleghe, Efewongbe Referring Unavailable Oleghe, Efewongbe Attending Unavailable Oleghe, Efewongbe Referring Unavailable Oleghe, Efewongbe Primary Care Unavailable Brittany Parsons Attending Unavailable Benedict, Gaetano Chi Referring Unavailable Robotham, Promise Attending Unavailable Robotham, Promise Referring Unavailable Oleghe, Efewongbe Primary Care Unavailable Oleghe, Efewongbe Attending Unavailable Oleghe, Efewongbe Referring Unavailable Oleghe, Efewongbe Primary Care Unavailable Oleghe, Efewongbe Attending Unavailable Oleghe, Efewongbe Referring Unavailable Robottyron Promise Attending Unavailable Oleghe, Efewongbe Attending Unavailable Oleghe, Efewongbe Referring Unavailable Oleghe, Efewongbe Attending Unavailable Oleghe, Efewongbe Referring Unavailable Oleghe, Efewongbe Primary Care Unavailable Leon Joy Attending Unavailable Oleghe, Efewongbe Referring Unavailable Donte Lutz Attending Unavailable Oleghe, Efewongbe Referring Unavailable Moodgeorgepaedward Ezekiel Attending Unavailable Oleghe, Efewongbe Referring Unavailable Oleghe, Efewongbe Primary Care Unavailable Isak Davis Attending Unavailable Oleghe, Efewongbe Primary Care Unavailable Palomo Hill Attending Unavailable PROVIDER, UNKNOWN Attending Unavailable PROBLEMS PROBLEMS DATE TYPE CONDITION / CODE ATTENDING STATUS SOURCE 07/06/2018 Unknown E87.6 - Hypokalemia / Oleghe Active Erika E87.6(ICD-10) [facility] Repository 06/29/2018 Unknown M25.531 - Pain in Isak Davis Active [facility] right wrist / Community M25.531(ICD-10) Hospital Repository 06/22/2018 Unknown I10 - Essential Moodisvincent Ezekiel Active [facility] (primary) [facility] hypertension / Hospital I10(ICD-10) Repository 06/22/2018 Unknown I48.0 - Paroxysmal Moodisphyllisedward Ezekiel Active [facility] atrial fibrillation / [facility] I48.0(ICD-10) Hospital Repository 06/22/2018 Unknown I25.10 - MoodisEzekiel kaur Active [facility] Atherosclerotic heart Community disease of [facility] coronary artery Repository without angina pectoris / I25.10(ICD-10) 06/22/2018 Unknown E78.00 - Pure Moodispaedward Ezekiel Active E[facility] hypercholesterolemia, Community unspecified / Hospital E78.00(ICD-10) Repository 06/20/2018 Active Generalized Unknown Active [facility] hyperhidrosis / Clinic Other R61(ICD-10) [place] Repository 06/20/2018 Active Unspecified atrial Unknown Active [facility] fibrillation / Clinic Other I48.91(ICD-10) [place] Repository 06/18/2018 Unknown I50.32 - Chronic Leon Joy Active [facility] diastolic [facility] (congestive) heart Hospital failure / Repository I50.32(ICD-10) 06/01/2018 Unknown E78.5 - Oleghe, Active [facility] Hyperlipidemia, [facility] unspecified / Hospital E78.5(ICD-10) Repository 05/22/2018 Unknown Z78.0 - Asymptomatic Oleghe, Active [facility] menopausal state / [facility] Z78.0(ICD-10) Hospital Repository 05/22/2018 Unknown N95.9 - Unspecified Oleghe, Active Erika menopausal and [facility] perimenopausal Hospital disorder / Repository N95.9(ICD-10) 05/24/2018 Unknown Z12.11 - Encounter Robotham, Active [facility] for screening for [facility] malignant neoplasm of Hospital colon / Repository Z12.11(ICD-10) 05/24/2018 Unknown K64.0 - First degree Robotham, Active [facility] hemorrhoids / [facility] K64.0(ICD-10) Hospital Repository 05/24/2018 Unknown K57.30 - Robotham, Active [facility] Diverticulosis of [facility] large intestine Hospital without perforation Repository or abscess without bleeding / K57.30(ICD-10) 06/04/2018 Unknown R00.0 - Tachycardia, Donte Lutz Active [facility] unspecified / Community R00.0(ICD-10) Hospital Repository 05/08/2018 Unknown Z12.31 - Encounter Oleghe, Active [facility] for screening [facility] mammogram for Hospital malignant neoplasm of Repository breast / Z12.31(ICD-10) 05/01/2018 Unknown R06.02 - Shortness of Parsons, [facility] R[facility] Hospital Repository 03/30/2018 Unknown E11.9 - Type 2 Oleghe, Active [facility] diabetes mellitus [facility] without complications Hospital / E11.9(ICD-10) Repository 03/30/2018 Unknown R32 - Unspecified Oleghe, Active [facility] urinary incontinence [facility] / R32(ICD-10) Hospital Repository 10/25/2017 Unknown Z79.899 - Other long Ndiaye, Timmy Active [facility] term (current) drug [employer] Community therapy / Hospital Z79.899(ICD-10) Repository 10/13/2017 Unknown F41.9 - Anxiety Ndiaye, Timmy Active [facility] disorder, unspecified [employer] Community / F41.9(ICD-10) Hospital Repository 10/23/2017 Unknown J44.9 - Chronic AdisToan dubose Active [facility] obstructive pulmonary Community disease, unspecified Hospital / J44.9(ICD-10) Repository 08/16/2017 Unknown Z76.89 - Persons Parsons, Active [facility] encountering [facility] services in other Hospital specified Repository circumstances / Z76.89(ICD-10) 07/27/2017 Unknown E55.9 - Vitamin D Benedict, Gaetano Chi Active [facility] deficiency, Community unspecified / Hospital E55.9(ICD-10) Repository PROCEDURES PROCEDURES No Procedure Records FoundRESULTS RESULTS CARDIOLOGY VISIT Observed: 07/05/2018 Status: F Source: [facility] REPORT 7:08 AM [facility] REPOSITORY [facility] [address] [place] [address]. [address] [place] [address] OFFICE VISIT Date of Service: 07/04/18 MR#: [id number] Acct: [id number] Name: CAYLA CHISHOLM Rep #: [id number] : 1945 Provider: SHERRIE Joy Age/Sex: 72/F [place] [facility] Status: Signed HPI HPI Chief Complaint: follow-up visit Details: CAYLA CHISHOLM, is a 72 F who presents to the office today for a cardiovascular outpatient follow-up. She has history of coronary artery disease, paroxysmal atrial fibrillation, hypertension, pulmonary hypertension, hyperlipidemia, COPD, SEVEN with CPAP, and diabetes. Patient presented to [facility] emergency department in June 2018 for palpitations. Her ECG showed sinus rhythm with a ventricular rate of 71 bpm. Her prehospital EKG was reviewed and thought to be atrial fibrillation with RVR. Patient has been referred to [facility] electrophysiology team for further evaluation and consideration for ablation procedure. Pt. denies chest, arm, jaw, or neck discomfort. Her exercise tolerance is stable. Pt. denies symptoms of CHF, or syncopal episodes. Pt. denies edema or claudication issues. Pt. denies orthopnea, PND, fever, chills, blood in urine, blood in stool, myalgia, or unexplainable fatigue. She states continual SOB when going up steps. This has not worsened. Intake Vital Signs07/04/18 Height 5 ft 5 in 07/04/18 Weight: 230 lb 07/04/18 Body Mass Index (BMI) 38.2 07/04/18 Blood Pressure 138/78 H 07/04/18 Blood Pressure Location Lt brachial Intake Visit Reasons: Shortness of breath Allergies labetalol Allergy (Verified 07/04/18 13:39) Unknown pitavastatin [From Livalo] Allergy (Verified 07/04/18 13:39) Other simvastatin [From Zocor] Allergy (Verified 07/04/18 13:39) Other budesonide [From Symbicort] Adverse Reaction (Verified 07/04/18 13:39) Other formoterol [From Symbicort] Adverse Reaction (Verified 07/04/18 13:39) Other hydrocodone [From Vicodin] Adverse Reaction (Verified 07/04/18 13:39) Other Hsrhcvt-Sln-Odc Reductase Inhibitor Adverse Reaction (Verified 07/04/18 13:39) Other Medications Multivitamin [Daily Multiple Vitamin] 1 ea PO DAILY 10/11/16 [History Confirmed 06/21/18] Dextran 70/He-Cell [Tears Naturale, Artificial Tears] 2 drp EACH EYE Q2H PRN PRN bottle 05/17/17 [Rx Confirmed 06/21/18] acetaminophen 500 mg capsule 500 mg PO Q4H PRN 08/10/17 [History Confirmed 06/21/18] albuterol sulfate 2.5 mg/3 mL (0.083 %) solution for nebulization 2.5 mg INHALATION Q4H PRN #180 vial 08/16/17 [Rx Confirmed 06/28/18] mometasone-formoterol HFA 200 mcg-5 mcg/actuation aerosol inhaler 2 puff INHALATION BID 09/19/17 [History Confirmed 06/28/18] omeprazole 20 mg capsule,delayed release 20 mg PO QDAY #90 cap 09/29/17 [Rx Confirmed 06/28/18] duloxetine 60 mg capsule,delayed release 60 mg PO QDAY #90 cap 01/26/18 [Rx Confirmed 06/28/18] ezetimibe 10 mg tablet 10 mg PO QDAY #90 tab 03/02/18 [Rx Confirmed 06/28/18] hydrochlorothiazide 25 mg tablet 25 mg PO QAM #90 tab 03/02/18 [Rx Confirmed 06/28/18] metformin 500 mg tablet 500 mg PO BID #180 tab 03/02/18 [Rx Confirmed 06/28/18] fenofibrate micronized 67 mg capsule 67 mg PO QPM #90 cap 03/15/18 [Rx Confirmed 06/28/18] albuterol sulfate HFA 90 mcg/actuation aerosol inhaler 2 puff INHALATION Q4H PRN #18 g 05/01/18 [Rx Confirmed 06/21/18] potassium chloride 20 mEq oral packet 20 meq PO BID #60 ea 05/10/18 [Rx Confirmed 06/28/18] rivaroxaban 20 mg tablet 20 mg PO DAILY #30 tab 05/10/18 [Rx Confirmed 06/28/18] sotalol 80 mg tablet 120 mg PO BID #90 tab 05/10/18 [Rx Confirmed 06/28/18] buspirone 10 mg tablet 10 mg PO BID #90 tab 06/01/18 [Rx Confirmed 06/28/18] icosapent ethyl 1 gram capsule 2 g PO BID #360 cap 06/06/18 [Rx Confirmed 06/21/18] amlodipine 10 mg tablet 10 mg PO DAILY #60 tab 06/25/18 [Rx Confirmed 06/28/18] Lisinopril 5 mg PO DAILY 06/28/18 [History Confirmed 06/28/18] PFSH Medical History Diastolic congestive heart failure (Chronic) Atherosclerotic heart disease of [place] coronary artery without angina pectoris (Chronic) Long-term use of high-risk medication (Chronic) SOB (shortness of breath) (Chronic) Pulmonary HTN (Chronic) SEVEN (obstructive sleep apnea) (Chronic) Atrial fibrillation with RVR (Chronic) Hypokalemia (Chronic) DM2 (diabetes mellitus, type 2) (Chronic) HTN (hypertension) (Chronic) Anxiety (Chronic) CAD (coronary artery disease) (Chronic) HLD (hyperlipidemia) (Chronic) COPD (chronic obstructive pulmonary disease) (Chronic) PAF (paroxysmal atrial fibrillation) (Chronic) Morbid obesity (Chronic) Spastic colon (Chronic) Junctional rhythm (Chronic) NSTEMI (non-ST elevated myocardial infarction) (Resolved) CAD (coronary artery disease) (Chronic) Acute respiratory failure with hypoxia and hypercarbia (Resolved) Acute exacerbation of chronic obstructive pulmonary disease (COPD) (Chronic) Streptococcal pneumonia (Resolved) Paroxysmal atrial fibrillation with rapid ventricular response (Chronic) Debility (Chronic) Hiatal hernia (Chronic) Panic disorder (Chronic) Sepsis (Resolved) Surgical History history of right wrist surgery (Resolved) History of tonsillectomy and adenoidectomy (Resolved) History of colonoscopy (Acute) Family History Mother Cancer leukemia Father Respiratory disease Grandfather Myocardial infarction Grandmother Myocardial infarction Son Diabetes Social History Smoking Status: Never smoker alcohol intake: never substance use type: does not use caffeine: Yes Type: coffee Number of servings: 1 what type of physical activity do you participate in: none seatbelt use: always do you feel safe at home: Yes ROS Const Const: Positive for fatigue (continual); negative for weakness, weight gain, weight loss, frequent falls or excessive sweating Eyes Eyes: Negative for change in vision, blurry vision or transient loss of vision ENT ENT: Negative for dizziness or balance problems Cardio Chest Pain: No Palpitations: No Edema: Bilateral Muscle aches with walking: None Resp Respiratory: Positive for SOB with activity (when going up steps); negative for SOB at rest, SOB orthopnea\SOB lying down or paroxysmal nocturnal dyspnea GI GI: Negative vomiting or vomiting blood/hematemesis : Negative for hematuria Musc Musc: Negative for balance problems Skin Skin: Negative non-healing lesions or rash Neuro Neuro: Negative for lightheadedness, near syncope, syncope, weakness, frequent falls, blurry vision or dizziness [place] Hematologic/Lymphatic: Negative for easy bleeding Endo Endo: Positive for fatigue (continual); negative for excessive sweating Psych Psych: Negative for anxiety or depression Allergy Allergy/Immunology: Negative for rash Cardiology Exam Const Appearance: cooperative, healthy appearing, comfortable, no acute distress and well developed Nutritional Appearance: well nourished and obese Orientation: alert, awake and oriented x3 Head Head: normal to inspection Ears: hearing grossly normal bilaterally Nose: external nose normal Face and Sinus: face symmetric Mouth: oral mucosae normal Eyes Eyelids: eyelids normal Conjunctivae: conjunctivae normal Pupils: PERRL EOM: EOM intact bilaterally Neck Neck: no JVD, normal visual inspection and full ROM Carotids: normal carotid upstroke Chest Chest inspection: normal inspection of the chest, normal respiratory effort and symmetric chest movement; negative cough Auscultation: Bilateral: Clear to Auscultation Cardio Rate: regular rate Rhythm: regular rhythm and ectopic beats Heart sounds: S1 normal and S2 normal; negative rub, gallop or murmur GI GI: obese Neuro General: alert, awake, oriented x3 and moves all extremities Skin Skin: no rashes or lesions noted Extremities Pulses: Normal: Right Posterior Tibial Pulse, Left Posterior Tibial Pulse, Right Radial Pulse, Left Radial Pulse Lower Extremity Edema: +1: Bilateral Psych Psychological: normal affect Assessment AND Plan 1. Shortness of breath R06.02 Plan This is unchanged. Her heart catheterization September 2016 showed nonobstructive coronary artery disease and ejection fraction 65%. Her most recent echocardiogram in November 2017 showed ejection fraction of 65%. At this time we will not make any medication regimen changes. We will continue to monitor symptoms. 2. Palpitations R00.2 Plan Her symptoms appear consistent with paroxysmal atrial fibrillation. Her heart rate is well-controlled today in office. She will continue with antiarrhythmic/sotalol and factor Xa inhibitor/Xarelto. 3. Paroxysmal atrial fibrillation I48.0 Plan Patient's potassium was on the low end of normal during her most recent emergency department visit. She was asked to discuss with his primary care physician regarding increasing potassium to ensure that electrolyte imbalance does not contribute to paroxysmal atrial fibrillation episodes. She has upcoming appointment with primary care physician later this week. As noted above she will continue with current medications. The electrophysiology can give valuable input regarding patient's symptoms. Her most recent echocardiogram November 2017 showed severely enlarged left atrium. Hopefully by her limiting/reducing episodes of paroxysmal atrial fibrillation her overall symptoms improve. Plan Detail Additional Comments Thank you for allowing us to participate in the patient's plan of care, if you have any questions please do not hesitate to call. This note was generated using a voice recognition system and there may be incorrect words, spelling, or punctuation that were not noted upon reviewing the office note prior to saving. Coding Level of Care Code Off vis,est,level 3 Diagnoses Shortness of breath R06.02 Palpitations R00.2 Paroxysmal atrial fibrillation I48.0 Coding Level of Care Code Off vis,est,level 3 Diagnoses Shortness of breath R06.02 Palpitations R00.2 Paroxysmal atrial fibrillation I48.0 07/05/18 0708 <Electronically signed by Leon LAWSON> Date [facility] LULU Avilez Signature: Date (if applicable) CC: Quique Mims MD 12 LEAD ELECTROCARDIOGRAM Observed: 07/02/2018 Status: F Source: [place] 2:46 PM [facility] Cardiovascular Services [address] [place] [address] 12 Lead EKG 06/28/181911 MR#: [id number] Acct: [id number] Name: CAYLA CHISHOLM Rep #: [id number] : 1945 72 From: Jose Sánchez MD Attending Dr: Status: DEP ER Ordering Dr: Palomo Hill DO Date: 06/28/18 Location: ED Sex: F C Admitted: Test Reason : Blood Pressure : / mmHG Vent. Rate : 071 BPM Atrial Rate : 071 BPM P-R Int : 142 ms QRS Dur : 080 ms QT Int : 436 ms P-R-T Axes : 068 037 034 degrees QTc Int : 473 ms Normal sinus rhythm Normal ECG Confirmed by NAHUM WOLFE, JOSE ([id number]), art editor FARAZ JAMES ([id number]) on 07/02/2018 2:46:18 PM Referred By: SHANELL Confirmed By:JOSE SÁNCHEZ MD 07/02/18 1446 Date Jose Sánchez MD CC: Quique Mims MD; Palomo Hill DO Signed DISCHARGE INSTRUCTION Observed: 06/28/2018 Status: F Source: ERIKA 8:19 PM [facility] Medical Records Department [address] [place] [address] Discharge Instruction 06/28/182017 MR#: [id number] Acct: [id number] Name: CAYLA CHISHOML Rep #: [id number] : 1945 72 From: Palomo Hill DO PCP: Quique Mims MD Status: REG ER ED Disposition - Plan for ED Patient: Chief Complaint: Shortness of Breath Instructions: ED Afib Referrals: Quique Mims MD [Primary Care Provider] - Ezekiel Perez MD [STAFF PHYSICIAN] - 3-5 Days What to do if you have Problems For any increased pain, shortness of breath, bleeding, nausea or vomiting, chest pain, or any unexpected problems, contact your Primary Care Provider. Call [facility] ([phone]) or report to the closest Emergency Room. Call 911 if necessary. 06/28/182018 <Electronically signed by Palomo Hill DO> Date Palomo Hill DO Cosigner Signature (If Indicated): Date CC: Quique Mims MD EMERGENCY DEPARTMENT Observed: 06/28/2018 Status: F Source: [place] SUMMARY 8:18 PM [facility] Medical Records Department [address] [place] [address] Emergency Department Summary 06/28/182014 MR#: [id number] Acct: [id number] Name: CAYLA CHISHOLM Rep #: [id number] : 1945 72 From: Palomo Hill DO PCP: Quique Mims MD Status: REG ER - ER Visit Summary Date of Service: 06/28/18 Chief Complaint: [Tachycardia] History of Present Illness: The patient is a 72 F [presents the emergency department with complaint of racing heart that started around 5 PM. Patient states that she was making dinner when she noticed that her heart was racing. She denied any chest pain. Patient did not feel like she was short of breath but states that EMS felt that she appeared to be short of breath. Patient has a history of intermittent atrial fibrillation but she is not sure that that is the rhythm she was in. Patient felt like the tachycardia lasted about an hour. Patient has had some cold symptoms over the last couple of days with some sinus drainage and a mild cough. She denies any fevers. Patient has been compliant with her medications. Patient is on Xarelto and sotalol.] Physical Examination: [HEENT-PERRLA, EOMI. Cranial nerves II through XII grossly intact. TMs clear. Mucous membranes moist. No adenopathy. Cardiovascular-regular rate and rhythm without murmur or ectopy Lungs-clear to auscultation, chest wall stable without crepitus or subcu emphysema Abdomen-normoactive bowel sounds, soft, nontender, no rebound or rigidity, no peritoneal signs. Extremities-intact 4, normal range of motion, normal pulses, atraumatic] Test Results: [EKG obtained arrival shows sinus rhythm with a ventricular rate of 71 bpm with no acute ST segment changes. CBC with differential is normal. Chemistries were normal. Magnesium was 1.6 and troponin was less than 0.015. Chest x-ray showed nothing acute.] I reviewed patient's prehospital EKG which is difficult to interpret and that the baseline is quite erratic however I do not see any distinct P waves. Patient had a narrow complex tachycardia with a ventricular rate of 143 bpm. I suspect the EKG likely shows A. fib flutter. Emergency Department Course and Treatment: [] Treatment Plan: [Patient case was discussed with Dr. Ezekiel Perez who is the patient's medication care manager who asked that patient follow-up with our office but no further interventions were warranted at this time. Patient is comfortable with this plan.] Disposition: [Discharged home in stable condition] Impression: [Tachycardia] This note was generated with [employer] dictation software. It may contain incorrect words, spelling, and punctuation that were not noted in review of the chart prior to signing ED Disposition - Plan for ED Patient: Chief Complaint: Shortness of Breath Referrals: Quique Mims MD [Primary Care Provider] - What to do if you have Problems For any increased pain, shortness of breath, bleeding, nausea or vomiting, chest pain, or any unexpected problems, contact your Primary Care Provider. Call [facility] ([phone]) or report to the closest Emergency Room. Call 911 if necessary. 06/28/182017 <Electronically signed by Palomo Hill DO> Date Palomo Hill DO Cosigner Signature (If Indicated): Date CC: Quique Mims MD CHEST 1 VIEW Observed: 06/28/2018 Status: F Source: ERIKA (PORTABLE) 7:01 PM [facility] Imaging Services [address] [place] [address] Chest 1 View (Portable) MR#: [id number] Acct: [id number] Name: CAYLA CHISHOLM Rep #: [id number] : 1945 F 72 From: Joelle Cueto MD PCP: Quique Mims MD Status: PRE ER Study: Chest 1 View (Portable) Date of Exam: 06/28/18 Exam# [id number] Ordering Dr: Palomo Hill DO STUDY: X-RAY CHEST REASON FOR EXAM: Female, 72 years old. Tachycardia, SOB. TECHNIQUE: Portable chest. COMPARISON: 06/22/2017. FINDINGS: The lungs are clear and expanded. There is no demonstrated pleural abnormality. Normal size heart. Normal mediastinum and ricardo. Normal visualized pulmonary arteries. Normal visualized aortic arch and descending thoracic aorta. Normal visualized thoracic spine. Normal visualized ribs, clavicles, and shoulders. There is no demonstrated abnormality of the visualized soft tissue structures of the upper abdomen. RAD/Chest 1 View (Portable) IMPRESSION: No acute process. Electronically Signed: Joelle Cueto MD at 19:29 EST Tel , Service support , CC: Quique Mims MD; Palomo Hill DO Collateral Clerk: Signed CBC W/DIFF, AUTOMATED Collected: 06/28/2018 Status: F Source: [place] 6:50 PM [facility] REPOSITORY TYPE CODE TESTS RESULT OUT OF RANGE REFERENCE UNITS LAB L100.1000 4.4-11.0 K/mm3 Normal WBC 8.6 LAB L100.1200 4.2-5.4 M/mm3 Normal RBC 4.76 LAB L100.1300 12.0-15.0 g/dl Normal HGB 13.6 LAB L100.1400 37-47 % Normal HCT 41.7 LAB L100.1500 81-99 fL Normal MCV 87.6 LAB L100.1600 27.0-32.0 pg Normal MCH 28.6 LAB L100.1700 32-36 g/gl Normal MCHC 32.6 LAB L100.1810 11.6-14.6 % Normal RDW CV 13.0 LAB L100.1820 35.1-43.9 fl Normal RDW SD 41.3 LAB L100.1900 150-450 K/mm3 Normal PLT 302 LAB L100.2000 6.2-12.0 fl Normal MPV 10.6 LAB L100.2100 47-70 % Normal NEUT% 65.8 LAB L100.2200 19-41 % Normal LY% 23.9 LAB L100.2300 0-10 % Normal MONO% 8.5 LAB L100.2400 0-5 % Normal EO% 1.6 LAB L100.2500 0-1 % Normal BASO% 0.1 LAB L100.2550 0.0-0.9 % Normal IM GRAN % 0.100 Result Comment: IG% - Immature Granulocytes (promyelocytes, myelocytes and metamyelocytes) > 1% indicates that a LEFT SHIFT is Present. LAB L100.2620 2.0-7.7 X10 3/uL Normal Absolute Neut 5.7 LAB L100.2720 0.83-4.51 X10 3/ul Normal Absolute Lymph 2.06 Performed By: #### L100.0100 #### [facility] [address] [place], [place], [address] BASIC METABOLIC Collected: 06/28/2018 Status: F Source: [place] PROFILE (BMP) 6:50 PM [facility] REPOSITORY TYPE CODE TESTS RESULT OUT OF RANGE REFERENCE UNITS LAB L501.0100 74-106 mg/dL High GLU 129 Result Comment: Fasting Glucose result greater than or equal to 126 mg/dL suggests DIABETES MELLITUS per A.D.A. criteria. Please note revised GLUCOSE reference range effective 2017. LAB L501.1000 7-18 mg/dL Normal BUN 17 LAB L501.1100 0.55-1.02 mg/dL Normal CREAT,SERUM 0.62 Result Comment: The validity of the calculated GFR AND GFRAA in patients over 70 years has not been determined. Clinical correlation is essential. LAB L501.1110 >60 mL/min Normal EST GFR 101 Result Comment: Non- GFR Calc LAB L501.1115 >60 mL/min Normal EST GFR - AA 122 Result Comment: GFR Calc LAB L501.1255 ml/min Normal Estimated CRCL 47.10 LAB L501.1300 10-20 RATIO High BUN/CRE 27.5 LAB L501.2200 8.5-10 mg/dL Normal .1 CA 9.2 LAB L501.5300 136-14 mmol/L Normal 5 NA 140 LAB L501.5600 3.5-5. mmol/L Normal 1 K 3.6 LAB L501.5900 98-107 mmol/L Normal CL 104 LAB L501.6100 21.0-3 mmol/L Normal 2.0 CO2 29.0 LAB L501.6200 5-15 Normal GAP 7 Performed By: #### L500.2500, L501.4010, L501.5200 #### [facility] [address] [place], [address] TROPONIN-I Collected: 06/28/2018 Status: F Source: [place] 6:50 PM [facility] REPOSITORY TYPE CODE TESTS RESULT OUT OF RANGE REFERENCE UNITS LAB L501.4010 <0.045 ng/mL Normal < 0.015 TROPONIN-I Result Comment: TROPONIN-I EXPECTED VALUES <0.045 Negative 0.045 - 0.590 Consistent with Cardiac Damage > OR = 0.600 Critical Value Not every elevated troponin is indicative of RI. These values should be used with clinical judgement in examining the patient's clinical picture for diagnosis. To establish a diagnosis of RI versus myocardial injury, there must be a demonstrated rise and/or fall in the troponin values, in addition to ischemic symptoms, EKG changes, new regional wall motion abnormality, and/or angiographical evidence. PLEASE NOTE: REFERENCE RANGES EDITED 17 Performed By: #### L500.2500, L501.4010, L501.5200 #### [facility] [address] [place], [address] MAGNESIUM Collected: 06/28/2018 Status: F Source: [place] 6:50 PM [facility] REPOSITORY TYPE CODE TESTS RESULT OUT OF RANGE REFERENCE UNITS LAB L501.5200 1.6-2.6 mg/dL Normal MG 1.6 Performed By: #### L500.2500, L501.4010, L501.5200 #### [facility] [address] [place], [address] DISCHARGE INSTRUCTION Observed: 06/24/2018 Status: F Source: [place] 4:37 PM [facility] Medical Records Department [address] [place] [address] Discharge Instruction 06/24/18 1545 MR#: [id number] Acct: [id number] Name: CAYLA CHISHOLM Rep #: [id number] : 1945 72 From: Isak Davis MD PCP: Quique Mims MD Status: DEP ER ED Disposition - Plan for ED Patient: Disposition: Home or Assisted Living Chief Complaint: Fall Instructions: ED Sprain Wrist Referrals: Quique Mims MD [Primary Care Provider] - 1 Week if not improving Karly Kirkpatrick DO [STAFF PHYSICIAN] - 1 Week if not improving Additional Instructions: Ice and elevate right wrist. Tylenol for pain. Follow-up with either your primary care physician, Dr. CARL Mace who did your initial wrist repair years ago or Dr. Karly Chicorelli if not improving. What to do if you have Problems For any increased pain, shortness of breath, bleeding, nausea or vomiting, chest pain, or any unexpected problems, contact your Primary Care Provider. Call [facility] ([phone]) or report to the closest Emergency Room. Call 911 if necessary. 06/24/18 8207 <Electronically signed by Isak Davis MD> Date sIak Davis MD Cosigner Signature (If Indicated): Date CC: Quique Mims MD EMERGENCY DEPARTMENT Observed: 06/24/2018 Status: F Source: [place] SUMMARY 4:37 PM [facility] Medical Records Department [address] [place] [address] Emergency Department Summary 06/24/18 1448 MR#: [id number] Acct: [id number] Name: CAYLA CHISHOLM Rep #: [id number] : 1945 72 From: Isak Davis MD PCP: Quique Mims MD Status: DEP ER - ER Visit Summary Date of Service: 06/24/18 Chief Complaint: Fall complaining of right wrist pain History of Present Illness: The patient is a 72 F past medical history of prior wrist fracture with orthopedic repair with hardware. History of CAD, RI, COPD, mwr-tferncw-butyvlarc diabetes, A. fib on Xarelto. Patient was visiting her son at this hospital. She went to get in a wheelchair missed and fell injuring her right wrist. Denies hitting her head. No LOC. Denies any other complaints. Planning of right wrist discomfort. Denies any hip, back or head injuries. Patient is right-hand dominant. Physical Examination: Older female no acute distress. Sitting upright in bed with family at bedside. Vital signs are stable afebrile. HEENT exam unremarkable atraumatic. Nontender. Pupils are round reactive light. No signs of trauma. C-spine nontender. Trachea midline. Lungs clear to auscultation bilaterally. Heart regular rhythm and rate in the 80s. Chest wall nontender. Abdomen soft nontender. Normal bowel sounds no peritoneal signs. Pelvic girdle intact. Extremities she is moving all 4 extremities. 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 Both lower extremities are nontender. Dorsi and plantar flexion intact. No deformities. Both hips are nontender. Right shoulder and elbow are nontender without deformity. Her right wrist has mild tenderness over the distal dorsal radius. There is no gross bony deformity. She is able to squeeze her right hand. Radial pulses intact. The hand itself is nontender. With normal range of motion. Test Results: Right wrist x-ray 3 views shows no acute fracture or dislocation. There is old orthopedic hardware on the distal radius to repair a prior fracture. There is also an old distal ulnar styloid fracture but no acute. Emergency Department Course and Treatment: Patient did not want any medication for pain while in the emergency department. I went over the x-rays with the patient. Treatment Plan: Treated as a right wrist sprain. Ice and elevate. Tylenol for pain. Velcro wrist splint. Follow-up if not improving. Disposition: Discharge Impression: Acute fall Acute right wrist sprain This note was generated with [employer] dictation software. It may contain incorrect words, spelling, and punctuation that were not noted in review of the chart prior to signing ED Disposition - Plan for ED Patient: Chief Complaint: Fall Referrals: Quique Mims MD [Primary Care Provider] - What to do if you have Problems For any increased pain, shortness of breath, bleeding, nausea or vomiting, chest pain, or any unexpected problems, contact your Primary Care Provider. Call [facility] ([phone]) or report to the closest Emergency Room. Call 911 if necessary. 06/24/18 5398 <Electronically signed by Isak Davis MD> Date Isak Davis MD Cosigner Signature (If Indicated): Date CC: Quique Mims MD WRIST MIN 3 VIEWS Observed: 06/24/2018 Status: F Source: [place] 2:47 PM [facility] Imaging Services [address] [place] [address] Wrist min 3 Views MR#: [id number] Acct: [id number] Name: CAYLA CHISHOLM Rep #: [id number] : 1945 F 72 From: Lisa Engle MD PCP: Quique Mims MD Status: DEP ER Study: Wrist min 3 Views Date of Exam: 06/24/18 Exam# [id number] Ordering Dr: Isak Davis MD STUDY: X-RAY - RIGHT WRIST REASON FOR EXAM: Female, 72 years old. Pain after fall TECHNIQUE: Three view(s) of the RIGHT wrist were obtained. COMPARISON: None. FINDINGS: Bones: A plate and screws are present along the volar aspect of the distal radius. There is deformity along the dorsal distal radius on the lateral view. There is an old fracture of the ulnar styloid. Joints: There are moderate degenerative changes of the radioulnar joint. There are moderate degenerative changes in the first CMC joint. Soft tissues: There is mild diffuse soft tissue swelling. Foreign body: None RAD/Wrist min 3 Views IMPRESSION: Hardware is present along the volar distal radius and is intact. There is deformity along the dorsal distal radius which may be related to the prior trauma, however an acute injury cannot be excluded since this is only seen on one view. Consider conservative management with repeat imaging in 7-10 days. Electronically Signed: Lisa Engle MD at 16:26 EST Tel Direct: [phone], Service support , CC: Quique Mims MD; Isak Davis MD Collateral Clerk: Signed CARDIOLOGY VISIT Observed: 06/21/2018 Status: F Source: [place] REPORT 6:20 PM [facility] REPOSITORY [facility] [address] [place] [address] OFFICE VISIT Date of Service: 06/21/18 MR#: [id number] Acct: [id number] Name: CAYLA CHISHOLM Rep #: [id number] : 1945 Provider: Ezekiel Perez MD Age/Sex: 72/F [place] [facility] Status: Signed HPI HPI Details: CAYLA CHISHOLM, is a 72 F who presents to the office today for outpatient follow-up for her paroxysmal atrial fibrillation. She states while at [facility] yesterday with a family member she developed recurrent PAF. She was evaluated in the emergency department. Her case was discussed with there are emergency department staff. Copies of her medical records were forwarded to them for continuity of care purposes. They were preparing to perform synchronized biphasic DC cardioversion when she subsequently spontaneously returned to sinus rhythm. She states that she knew something was wrong because she became diaphoretic and felt tired. She did not sense chest discomfort or change in her respiratory status. She did not have any evidence of palpitations or rapid rates. She states this is her normal symptoms prior to this type of event happening. She has gone through this on more than one occasion. This is despite being on her medications which have included her antiarrhythmic therapy with sotalol/Betapace. She has remained on her anticoagulant therapy with her Xarelto. She has had no other symptoms concerning for CHF or pulmonary edema. There is been no near syncope or syncope. Intake Vital Signs06/21/18 Height 5 ft 5 in 06/21/18 Weight: 232 lb 06/21/18 Body Mass Index (BMI) 38.6 06/21/18 Blood Pressure 136/64 H Intake Visit Reasons: a-fib Allergies labetalol Allergy (Verified 06/21/18 16:55) Unknown pitavastatin [From Livalo] Allergy (Verified 06/21/18 16:55) Other simvastatin [From Zocor] Allergy (Verified 06/21/18 16:55) Other budesonide [From Symbicort] Adverse Reaction (Verified 06/21/18 16:55) Other formoterol [From Symbicort] Adverse Reaction (Verified 06/21/18 16:55) Other hydrocodone [From Vicodin] Adverse Reaction (Verified 06/21/18 16:55) Other Tutipfb-Snb-Hor Reductase Inhibitor Adverse Reaction (Verified 06/21/18 16:55) Other Medications Multivitamin [Daily Multiple Vitamin] 1 ea PO DAILY 10/11/16 [History Confirmed 06/21/18] Dextran 70/He-Cell [Tears Naturale, Artificial Tears] 2 drp EACH EYE Q2H PRN PRN bottle 05/17/17 [Rx Confirmed 06/21/18] acetaminophen 500 mg capsule 500 mg PO Q4H PRN 08/10/17 [History Confirmed 06/21/18] albuterol sulfate 2.5 mg/3 mL (0.083 %) solution for nebulization 2.5 mg INHALATION Q4H PRN #180 vial 08/16/17 [Rx Confirmed 06/21/18] mometasone-formoterol HFA 200 mcg-5 mcg/actuation aerosol inhaler 2 puff INHALATION BID 09/19/17 [History Confirmed 06/21/18] omeprazole 20 mg capsule,delayed release 20 mg PO QDAY #90 cap 09/29/17 [Rx Confirmed 06/21/18] duloxetine 60 mg capsule,delayed release 60 mg PO QDAY #90 cap 01/26/18 [Rx Confirmed 06/21/18] ezetimibe 10 mg tablet 10 mg PO QDAY #90 tab 03/02/18 [Rx Confirmed 06/21/18] hydrochlorothiazide 25 mg tablet 25 mg PO QAM #90 tab 03/02/18 [Rx Confirmed 06/21/18] metformin 500 mg tablet 500 mg PO BID #180 tab 03/02/18 [Rx Confirmed 06/21/18] fenofibrate micronized 67 mg capsule 67 mg PO QPM #90 cap 03/15/18 [Rx Confirmed 06/21/18] lisinopril 20 mg tablet 20 mg PO QDAY #90 tab 03/30/18 [Rx Confirmed 06/21/18] albuterol sulfate HFA 90 mcg/actuation aerosol inhaler 2 puff INHALATION Q4H PRN #18 g 05/01/18 [Rx Confirmed 06/21/18] potassium chloride 20 mEq oral packet 20 meq PO BID #60 ea 05/10/18 [Rx Confirmed 06/21/18] rivaroxaban 20 mg tablet 20 mg PO DAILY #30 tab 05/10/18 [Rx Confirmed 06/21/18] sotalol 80 mg tablet 120 mg PO BID #90 tab 05/10/18 [Rx Confirmed 06/21/18] amlodipine 10 mg tablet 10 mg PO DAILY #60 tab 06/01/18 [Rx Confirmed 06/21/18] buspirone 10 mg tablet 10 mg PO BID #90 tab 06/01/18 [Rx Confirmed 06/21/18] icosapent ethyl 1 gram capsule 2 g PO BID #360 cap 06/06/18 [Rx Confirmed 06/21/18] [facility] Medical History Diastolic congestive heart failure (Chronic) Atherosclerotic heart disease of [place] coronary artery without angina pectoris (Chronic) Long-term use of high-risk medication (Chronic) SOB (shortness of breath) (Chronic) Pulmonary HTN (Chronic) SEVEN (obstructive sleep apnea) (Chronic) Atrial fibrillation with RVR (Chronic) Hypokalemia (Chronic) DM2 (diabetes mellitus, type 2) (Chronic) HTN (hypertension) (Chronic) Anxiety (Chronic) CAD (coronary artery disease) (Chronic) HLD (hyperlipidemia) (Chronic) COPD (chronic obstructive pulmonary disease) (Chronic) PAF (paroxysmal atrial fibrillation) (Chronic) Morbid obesity (Chronic) Spastic colon (Chronic) Junctional rhythm (Chronic) NSTEMI (non-ST elevated myocardial infarction) (Resolved) CAD (coronary artery disease) (Chronic) Acute respiratory failure with hypoxia and hypercarbia (Resolved) Acute exacerbation of chronic obstructive pulmonary disease (COPD) (Chronic) Streptococcal pneumonia (Resolved) Paroxysmal atrial fibrillation with rapid ventricular response (Chronic) Debility (Chronic) Hiatal hernia (Chronic) Panic disorder (Chronic) Sepsis (Resolved) Surgical History history of right wrist surgery (Resolved) History of tonsillectomy and adenoidectomy (Resolved) History of colonoscopy (Acute) Family History Mother Cancer leukemia Father Respiratory disease Grandfather Myocardial infarction Grandmother Myocardial infarction Son Diabetes Social History Smoking Status: Never smoker alcohol intake: never substance use type: does not use caffeine: Yes Type: coffee Number of servings: 1 what type of physical activity do you participate in: none seatbelt use: always do you feel safe at home: Yes ROS Const Const: Positive for fatigue (continue); negative for weakness, weight gain, weight loss, frequent falls or excessive sweating Eyes Eyes: Negative for change in vision, blurry vision or transient loss of vision ENT ENT: Negative for dizziness or balance problems Cardio Chest Pain: No Palpitations: No Edema: Bilateral (bilat ankle) Muscle aches with walking: None Resp Respiratory: Positive for SOB with activity (some); negative for SOB at rest GI GI: Negative vomiting or vomiting blood/hematemesis : Negative for hematuria Musc Musc: Negative for balance problems, muscle aches/ myalgia, muscle weakness or joint pain Skin Skin: Negative non-healing lesions or rash Neuro Neuro: Negative for weakness, blurry vision, dizziness, lightheadedness, frequent falls or orthostatic symptoms Ayaz Hematologic/Lymphatic: Negative for easy bleeding Endo Endo: Positive for fatigue (continue); negative for excessive sweating Psych Psych: Negative for anxiety or depression Allergy Allergy/Immunology: Negative for hives, Negative for rash Cardiology Exam Const Appearance: cooperative, healthy appearing, comfortable, no acute distress and well developed Nutritional Appearance: well nourished and obese Orientation: alert, awake and oriented x3 Head Head: normal to inspection Ears: hearing grossly normal bilaterally Nose: external nose normal Face and Sinus: face symmetric Mouth: oral mucosae normal Eyes Eyelids: eyelids normal Conjunctivae: conjunctivae normal Pupils: PERRL EOM: EOM intact bilaterally Neck Neck: no JVD, normal visual inspection and full ROM Carotids: normal carotid upstroke Chest Chest inspection: normal inspection of the chest, normal respiratory effort and symmetric chest movement; negative cough Auscultation: Bilateral: Clear to Auscultation Cardio Rate: regular rate Rhythm: regular rhythm and ectopic beats Heart sounds: S1 normal and S2 normal; negative rub, gallop or murmur GI GI: obese, normal to inspection, bowel sounds present and soft Neuro General: alert, awake, oriented x3 and moves all extremities Skin Skin: no rashes or lesions noted Extremities Pulses: Normal: Right Posterior Tibial Pulse, Left Posterior Tibial Pulse, Right Radial Pulse, Left Radial Pulse Lower Extremity Edema: +1: Bilateral Psych Psychological: normal affect Supplemental Info Echocardiogram from November 2017 showed an estimated ejection fraction 65%, moderate concentric left ventricular hypertrophy, severely enlarged left atrium, moderate to severe mitral annular calcification, extension of mitral and a consultation onto the posterior mitral valve leaflet, mild mitral valve insufficiency, mild tricuspid valve deficiency, trivial pulmonic valve insufficiency, calcified aortic root, RVSP of 45 mmHg, and diastolic dysfunction. September 2016 showed peak ECG with no obvious ECG changes and nuclear images showed an element of stress-induced myocardial ischemia involving portion of the distal anterior/anteroapical segment could not necessary be excluded with ejection fraction of 60%. Heart catheterization from September 2016 showed nonobstructive coronary artery disease and a left ventriculogram ejection fraction of 65%. Assessment AND Plan 1. Paroxysmal atrial fibrillation with rapid ventricular response I48.0 Plan At the present time based upon her lack of symptoms and her examination she appears to be in a regular rhythm with an intermittent premature ectopic complex. Her case was reviewed with her. At this time noting that she has been on conservative medical management, antiarrhythmic therapy, etc. and continues with recurrent episodes including 2 episodes recently it was felt reasonable that she be evaluated by elective physiology for possible EPS/RFA. She states she has had family member go through a similar type procedure with good results. She has been requested to be referred to [facility] electrophysiology for evaluation of her atrial dysrhythmia/fibrillation for consideration for EPS/RFA. In the interim she will continue her medical management. If she has recurrent symptoms she will notify the office or present to the hospital for further evaluation Orders Orders: 2. Atherosclerosis of [place] coronary artery of [place] heart without angina pectoris I25.10 Plan She does have a history of non-angiographically significant CAD as noted above. While in the hospital for noncardiovascular issues including underlying pulmonary issues she appeared to have a type II non-ST segment elevation RI. She has had no ongoing symptoms suspicious for angina pectoris. She has not required repeat noninvasive or invasive evaluation of her CAD status since her procedure as noted above. She will continue risk factor modification medical therapy as deemed appropriate. Orders Orders: 3. Pure hypercholesterolemia E78.00 Plan At the present time she continues medical therapy with Zetia. 4. Essential hypertension I10 Plan Her blood pressure appears to be reasonably well controlled today. She will continue her medications Plan Detail Additional Comments Overall at the present time she will continue her current therapy. For her recurrent atrial fibrillation, as noted above, she will be referred to [facility] electrophysiology for outpatient electrophysiology consultation for consideration for EPS/RFA. Thank you for allowing me to participate in the care of your patient. Please don't hesitate to call if any issues arise. This note was generated using a voice recognition system and there may be incorrect words, spelling or punctuation that were not noted when reviewing the office note prior to saving. Follow Up 5 Months (with PFM as scheduled) Coding Level of Care Code Off vis,est,level 3 Diagnoses Paroxysmal atrial fibrillation with rapid ventricular response I48.0 Atherosclerosis of [place] coronary artery of [place] heart without angina pectoris I25.10 [place] vs. transplanted heart: [place] heart Pure hypercholesterolemia E78.00 Hyperlipidemia type: pure hypercholesterolemia Essential hypertension I10 Hypertension type: essential hypertension Coding Level of Care Code Off vis,est,level 3 Diagnoses Paroxysmal atrial fibrillation with rapid ventricular response I48.0 Atherosclerosis of [place] coronary artery of [place] heart without angina pectoris I25.10 [place] vs. transplanted heart: [place] heart Pure hypercholesterolemia E78.00 Hyperlipidemia type: pure hypercholesterolemia Essential hypertension I10 Hypertension type: essential hypertension 06/21/18 1820 <Electronically signed by Ezekiel Perez MD> Date Ezekiel Perez MD Cosigner Signature: Date (if applicable) CC: Quique Mims MD ED PROV NOTE Observed: 06/20/2018 Status: COMPLETED Source: [place] 4:13 PM CLINIC OTHER CAMPUS REPOSITORY O ID: [id number] Author: Butch White DO Service: Emergency Medicine Author Type: Physician Type: ED Provider Notes Filed: 06/21/2018 8:05 AM Note Text: ED Provider Note Patient Name: Cayla Chisholm SERVICE DATE: 06/20/18 History Patient presents with: A-fib 72-year-old female past medical history of paroxysmal atrial fibrillation on xerelto and sotalol presents with diaphoresis. Onset was at 10 AM. She checked her pulse ox and noted a pulse in the 140s. Denies lightheadedness dizziness shortness of breath chest discomfort. Feeling diaphoretic is continuous worsened and relieved by nothing. PAST MEDICAL HISTORY Diagnosis Date - Asthma - Diabetes - Hypertension PAST SURGICAL HISTORY Procedure Laterality Date - TONSILLECTOMY HX No family history on file. Social History Social History Main Topics - Smoking status: Never Smoker - Smokeless tobacco: Not on file - Alcohol use Yes Comment: rare - Drug use: No - Sexual activity: Not on file ALLERGIES Allergen Reactions - Lipitor [Atorvastat* Other: See Comments Muscle cramping - Eejtwdw-Jqr-Qux Red* Other: See Comments Gets jitters - Vicodin [Hydrocodon* Hives Review of Systems Constitutional: Positive for diaphoresis. HENT: Negative. Eyes: Negative. Respiratory: Negative. Cardiovascular: Negative. Gastrointestinal: Negative. Genitourinary: Negative. Musculoskeletal: Negative. Skin: Negative. Neurological: Negative. Psychiatric/Behavioral: Negative. Physical Exam BP 112/58 Pulse 58 Temp (Src) 98.1 (Oral) Resp 16 Wt 233 lb (105.7kg) SpO2 97% Physical Exam Constitutional: She is oriented to person, place, and time. She appears well-developed and well-nourished. HENT: Head: Normocephalic and atraumatic. Eyes: Pupils are equal, round, and reactive to light. Conjunctivae and EOM are normal. No scleral icterus. Neck: Normal range of motion. Neck supple. Cardiovascular: Normal heart sounds and intact distal pulses. Exam reveals no gallop and no friction rub. No murmur heard. Tachycardic/irregular rhythm Pulmonary/Chest: Effort normal and breath sounds normal. No respiratory distress. She has no wheezes. She has no rales. She exhibits no tenderness. Abdominal: Soft. Bowel sounds are normal. She exhibits no distension and no mass. There is no tenderness. There is no rebound and no guarding. Musculoskeletal: Normal range of motion. She exhibits no edema or tenderness. Lymphadenopathy: She has no cervical adenopathy. Neurological: She is alert and oriented to person, place, and time. No cranial nerve deficit. Skin: Skin is warm and dry. No rash noted. No erythema. Psychiatric: She has a normal mood and affect. Her behavior is normal. Nursing note and vitals reviewed. Diagnostic Testing ED Labs Ordered and Reviewed COMP METABOLIC PANEL - Abnormal; Notable for the following: Result Value Ref Range Glucose 158 (*) 74 - 99 mg/dL Creatinine 0.51 (*) 0.58 - 0.96 mg/dL Potassium 3.4 (*) 3.7 - 5.1 mmol/L All other components within normal limits MAGNESIUM BLD - Abnormal; Notable for the following: Magnesium 1.5 (*) 1.7 - 2.3 mg/dL All other components within normal limits NT PRO BNP - Abnormal; Notable for the following: NT Pro BNP 393 (*) <125 pg/mL All other components within normal limits CBC + DIFF - Abnormal; Notable for the following: RBC 5.38 (*) 3.90 - 5.20 m/uL Hematocrit 46.7 (*) 36.0 - 46.0 % Abs Shelby 0.87 (*) <0.87 k/uL All other components within normal limits CK CREATINE KINASE TROPONIN T TSH BLD EKG #1 ordered and interpreted as atrial fibrillation with RVR rate of 133 EKG #2 ordered and interpreted as normal sinus rhythm rate of 64 no appreciable acute ischemic changes ED imaging studies ordered and reviewed Portable chest x-ray IMPRESSION: Limited study secondary to body habitus poor inspiration. ?Within the limits of the exam, slight upper lobe pulmonary vascular prominence, mild CHF Platelike atelectasis left base Procedures ED Course / Clinical Impression Clinical Impressions as of Jun 21 804 Diaphoresis Atrial fibrillation with RVR (HCC) Hypokalemia Hypomagnesemia MDM / Disposition / Plan IV started Nursing notes and vital signs reviewed Triage note reviewed Placed on daily sales audit clerk Medications administered magnesium sulfate potassium chloride Lopressor Consultation obtained medication care manager Dr. High Consultation recommendations trial of IV rate control medication followed by cardioversion if rate not improved Patient arrives tachycardic EKG confirms atrial fibrillation with RVR. Patient's only complaint is diaphoresis. Potassium and magnesium both replaced. Remainder of water grossly unremarkable. Chest x-ray shows slight upper lobe pulmonary vascular prominence mild CHF. Patient discussed with medication care manager as noted above. Treated with IV Lopressor with spontaneous conversion to normal sinus rhythm. Patient asymptomatic upon repeat evaluation. Patient be discharged home in stable condition with close outpatient follow-up by medication care manager for further recommendations and care. Will return immediately with any new or worsening or concerning symptoms. All questions answered bedside. Discharge home. MDM The patient was DISCHARGED: Counseled patient and father regarding lab results AND radiology results AND need for follow-up. Discharged home with verbal and written instructions. They were instructed to return as needed for persistent or worsening symptoms or any new concerns. Condition at time of disposition: improved and stable SIGNATURE: Butch White DO Critical Care I spent a total of 30 minutes of critical care time in the evaluation and management of this patient. This was necessary to treat or prevent deterioration of the following condition(s): Cardiovascular impairment, which the patient had and/or has a high probability of suddenly developing. The patient received IV lopressor , Correction of Electrolyte Abnormality and Consultation by medication care manager during the time that critical care was provided. Critical care time excludes separately billed procedures. DO Butch Gallagher, DO 06/21/18 0804 Butch White, 06/21/18 0805 EKG Observed: 06/20/2018 Status: F Source: [place] 2:48 PM [facility] OTHER CAMPUS REPOSITORY NAME : CAYLA CHISHOLM PID : [id number] : 1945 Gender : Female Race : ORD : [id number] Procedure Date : Jun 20 2018 14:48:49 Edit Date : Jun 20 2018 17:14:57 Diagnosis:NORMAL SINUS RHYTHM NORMAL ECG agree Confirmed by MD WHITE CHRISTOPHER ([id number]), art editor AUBREY DE LA CRUZ ([id number]) on 06/20/2018 5:14:55 PM Ventricular Rate : 64 BPM Atrial Rate : 64 BPM P-R Interval : 124 ms QRS Duration : 84 ms Q-T Interval : 430 ms QTC Calculation(Bezet) : 443 ms P [place] : 56 degrees R [place] : 22 degrees T [place] : 24 degrees Test Reason : Arrhythmia Location : 1 : ER 1 Overread By : MD WHITE CHRISTOPHER Edited By : AUBREY DE LA CRUZ Referred By : , Acquired by : CAM, XR CHEST 1V FRONTAL Observed: 06/20/2018 Status: F Source: [facility] 2:44 PM [facility] OTHER CAMPUS REPOSITORY * * *Final Report* * * DATE OF EXAM: Jun 20 2018 2:44PM MDX [id number] - XR CHEST 1V FRONTAL PORT / PROCEDURE REASON: Shortness of breath * * * * Physician Interpretation * * * * EXAMINATION: CHEST RADIOGRAPH (PORTABLE SINGLE VIEW AP) Exam Date/Time: 06/20/2018 2:44 PM Clinical History: Shortness of breath, MQ: [id number] Comparison: None RESULT: Cardiomegaly. Poor inspiration producing crowded lung markings.. DJD. IMPRESSION: Limited study secondary to body habitus poor inspiration. Within the limits of the exam, slight upper lobe pulmonary vascular prominence, mild CHF Platelike atelectasis left base Collateral Clerk: PSCRishabh Transcribe Date/Time: Jun 20 2018 2:53P Dictated by : AURELIANO BRIONES DO This examination was interpreted and the report reviewed and electronically signed by: AURELIANO BRIONES DO on Jun 20 2018 2:57PM EST [id number] ED NOTE Observed: 06/20/2018 Status: COMPLETED Source: [place] 1:03 PM CLINIC OTHER CAMPUS REPOSITORY HNO ID: [id number] Author: Kaitlynn (Medic) Barbara Burroughs Service: Emergency Medicine Author Type: Cell Technician and Depositing Machine Operator Type: ED Notes Filed: 06/20/2018 1:03 PM Note Text: Labs were drawn and sent. CBC AND DIFFERENTIAL Collected: 06/20/2018 Status: F Source: [place] 1:01 PM [facility] OTHER CAMPUS REPOSITORY TYPE CODE TESTS RESULT OUT OF REFERENCE UNITS RANGE LAB WBC 3.70-11.00 k/uL WBC 8.82 LAB RBC 3.90-5.20 m/uL RBC High 5.38 LAB HGB 11.5-15.5 g/dL Hemoglobin 15.2 LAB HCT 36.0-46.0 % High Hematocrit 46.7 LAB MCV 80.0-100.0 fL MCV 86.8 LAB MCH 26.0-34.0 pG MCH 28.3 LAB MCHC 30.5-36.0 g/dL MCHC 32.5 LAB RDWCV 11.5-15.0 % RDW-CV 13.0 LAB PLTCT 150-400 k/uL Platelet Count 307 LAB MPV 9.0-12.7 fL MPV 10.9 LAB ANEUT % Neut% 68.2 LAB AANEUT 1.45-7.50 k/uL Abs Neut 6.02 LAB ALYMP % Lymph% 20.9 LAB AALYMP 1.00-4.00 k/uL Abs Lymph 1.84 LAB AMONO % Shelby% 9.9 LAB AAMONO <0.87 k/uL Abs Shelby High 0.87 LAB AEOS % Eosin% 0.7 LAB AAEOS <0.46 k/uL Abs Eosin 0.06 LAB ABASO % Baso% 0.3 LAB AABASO <0.11 k/uL Abs Baso 0.03 Performed By: #### CBCDIF, CK, CMP, MG1 #### [facility] [address] [facility] [phone] CK Collected: 06/20/2018 Status: F Source: [facility] 1:01 PM OTHER CAMPUS REPOSITORY TYPE CODE TESTS RESULT OUT OF RANGE REFERENCE UNITS LAB CK 42-196 U/L CK 106 Performed By: #### CBCDIF, CK, CMP, MG1 #### [facility] [address] [place] [address] COMP METABOLIC PANEL Collected: 06/20/2018 Status: F Source: [place] 1:01 PM CLINIC OTHER CAMPUS REPOSITORY TYPE CODE TESTS RESULT OUT OF REFERENCE UNITS RANGE LAB TP 6.3-8.0 g/dL Protein, Total 7.0 LAB ALB 3.9-4.9 g/dL Albumin 4.7 LAB CA 8.5-10.2 mg/dL Calcium, Total 9.9 LAB TBIL 0.2-1.3 mg/dL Bilirubin, Total 0.2 LAB ALKP 34-123 U/L Alkaline Phosphatase 65 LAB AST 13-35 U/L AST 15 LAB GLU 74-99 mg/dL Glucose High 158 Result Comment: The [place] [employer] (ADA) provides guidance for cutoff values for fasting glucose and random glucose. The ADA defines fasting as no caloric intake for at least 8 hours. Fas ting plasma glucose results between 100 to 125 mg/dL indicate increased risk for diabetes (prediabetes). Fasting plasma glucose results greater than or equal to 126 mg/dL meet the criteria for diagnosis of diabetes. In the absence of unequivocal hyperglycemia, results should be confirmed by repeat testing. In a patient with classic symptoms of hyperglycemia or hyperglycemic crisis, random plasma glucose results greater than or equal to 200 mg/dL meet the criteria for diagnosis of diabetes. Reference: Standards of Medical Care in Diabetes 2016, [place] [employer]. Diabetes Care. 2016.39(Suppl 1). LAB BUN 7-21 mg/dL BUN 16 LAB CRET 0.58-0.96 mg/dL Creatinine Low 0.51 LAB NA 136-144 mmol/L Sodium 141 LAB K 3.7-5.1 mmol/L Potassium Low 3.4 LAB CL 97-105 mmol/L Chloride 98 LAB CO2 22-30 mmol/L CO2 25 LAB AGAP 9-18 mmol/L Anion Gap 18 LAB ALT 7-38 U/L ALT 19 LAB GFRAA eGFR- Amer. >60 LAB GFRNAA . eGFR-All Other Races >60 Result Comment: eGFR (Estimated GFR) Units of measure: mL/min/1.73 meters squared eGFR is derived from the reexpressed MDRD Study equation using the following parameters: serum creatinine, age, gender and race. The creatinine assay has been calibrated to be traceable to IDMS. An eGFR <60 mL/min/1.73m2 for >3 months is consistent with chronic kidney disease. Refer to KDOQI guidelines for clinical interpretation. In patients with unstable renal function, e.g. those with acute kidney injury, the eGFR may not accurately reflect actual GFR. Performed By: #### CBCDIF, CK, CMP, MG1 #### [facility] [address] [place] [address] MAGNESIUM Collected: 06/20/2018 Status: F Source: [place] 1:01 CLINIC OTHER CAMPUS REPOSITORY TYPE CODE TESTS RESULT OUT OF REFERENCE UNITS RANGE LAB MG 1.7-2.3 mg/dL Low Magnesium 1.5 Performed By: #### CBCDIF, CK, CMP, MG1 #### [facility] [address] [place] [phone] NT PRO BNP Collected: 06/20/2018 Status: F Source: [place] 1:01 PM CLINIC OTHER CAMPUS REPOSITORY TYPE CODE TESTS RESULT OUT OF REFERENCE UNITS RANGE LAB PBNP <125 pg/mL High PRO B Natr 393 Peptide Performed By: #### NTBNP #### [facility] [address] [place], [place] [phone] TROPONIN T Collected: 06/20/2018 Status: F Source: [place] 1:01 PM CLINIC OTHER CAMPUS REPOSITORY TYPE CODE TESTS RESULT OUT OF REFERENCE UNITS RANGE LAB TROPT 0.000-0.029 ng/mL Troponin T <0.010 Performed By: #### ROSIE #### [facility] [address] [facility] [phone] TSH Collected: 06/20/2018 Status: F Source: [place] 1:01 PM [facility] REPOSITORY TYPE CODE TESTS RESULT OUT OF RANGE REFERENCE UNITS LAB TSH 0.400-5.500 uU/mL TSH 1.270 Performed By: #### TSH #### [facility] [address] [facility] [phone] ED NOTE Observed: 06/20/2018 Status: COMPLETED Source: [place] 12:03 PM [facility] REPOSITORY HNO ID: [id number] Author: Esther PaRn) PASQUALE Gant Service: Nursing Author Type: Registered Nurse Type: ED Notes Filed: 06/20/2018 12:04 PM Note Text: Pt noted a rapid heart rate on her pulse ox monitor at 10 a.m. EKG Observed: 06/20/2018 Status: F Source: [place] 11:50 AM [facility] REPOSITORY NAME : CAYLA CHISHOLM PID : [id number] : 1945 Gender : Female Race : ORD : [id number] Procedure Date : Jun 20 2018 11:50:29 Edit Date : Jun 20 2018 17:15:24 Diagnosis:ATRIAL FIBRILLATION WITH RAPID VENTRICULAR RESPONSE WITH PREMATURE VENTRICULAR OR ABERRANTLY CONDUCTED COMPLEXES POSSIBLE INFERIOR INFARCT , AGE UNDETERMINED ABNORMAL ECG agree Confirmed by MD WHITE CHRISTOPHER ([id number]), art editor AUBREY DE LA CRUZ ([id number]) on 06/20/2018 5:15:20 PM Ventricular Rate : 133 BPM Atrial Rate : 267 BPM QRS Duration : 82 ms Q-T Interval : 344 ms QTC Calculation(Bezet) : 511 ms R [place] : 20 degrees T [place] : 16 degrees Test Reason : Arrhythmia Location : 1 : ER 1 Overread By : MD WHITE CHRISTOPHER Edited By : AUBREY DE LA CRUZ Referred By : , Acquired by : Milana STRATTON, INTERNAL MEDICINE Observed: 06/04/2018 Status: F Source: [place] OFFICE VISIT 4:28 PM [facility] REPOSITORY [facility] [address] [place] [address] OFFICE VISIT Date of Service: 06/01/18 MR#: [id number] Acct: [id number] Name: CAYLA CHISHOLM Rep #: [id number] : 1945 Provider: Quique Mims MD Age/Sex: 72/F [place] [facility] Status: Signed Intake Vital Signs06/01/18 Height 5 ft 5 in Intake Visit Reasons: 2 MO F/U Chief Complaint: follow-up visit Is patient in pain?: No Allergies labetalol Allergy (Verified 05/16/18 14:08) Unknown pitavastatin [From Livalo] Allergy (Verified 05/16/18 14:08) Other simvastatin [From Zocor] Allergy (Verified 05/16/18 14:08) Other budesonide [From Symbicort] Adverse Reaction (Verified 05/16/18 14:08) Other formoterol [From Symbicort] Adverse Reaction (Verified 05/16/18 14:08) Other hydrocodone [From Vicodin] Adverse Reaction (Verified 05/16/18 14:08) Other Fxihuhk-Cbz-Zbz Reductase Inhibitor Adverse Reaction (Verified 05/16/18 14:08) Other Medications Multivitamin [Daily Multiple Vitamin] 1 ea PO DAILY 10/11/16 [History Confirmed 05/16/18] Dextran 70/He-Cell [Tears Naturale, Artificial Tears] 2 drp EACH EYE Q2H PRN PRN bottle 05/17/17 [Rx Confirmed 06/01/18] acetaminophen 500 mg capsule 500 mg PO Q4H PRN 08/10/17 [History Confirmed 06/01/18] albuterol sulfate 2.5 mg/3 mL (0.083 %) solution for nebulization 2.5 mg INHALATION Q4H PRN #180 vial 08/16/17 [Rx Confirmed 06/01/18] mometasone-formoterol HFA 200 mcg-5 mcg/actuation aerosol inhaler 2 puff INHALATION BID 09/19/17 [History Confirmed 05/16/18] omeprazole 20 mg capsule,delayed release 20 mg PO QDAY #90 cap 09/29/17 [Rx Confirmed 06/01/18] duloxetine 60 mg capsule,delayed release 60 mg PO QDAY #90 cap 01/26/18 [Rx Confirmed 06/01/18] ezetimibe 10 mg tablet 10 mg PO QDAY #90 tab 03/02/18 [Rx Confirmed 06/01/18] hydrochlorothiazide 25 mg tablet 25 mg PO QAM #90 tab 03/02/18 [Rx Confirmed 06/01/18] metformin 500 mg tablet 500 mg PO BID #180 tab 03/02/18 [Rx Confirmed 06/01/18] fenofibrate micronized 67 mg capsule 67 mg PO QPM #90 cap 03/15/18 [Rx Confirmed 06/01/18] lisinopril 20 mg tablet 20 mg PO QDAY #90 tab 03/30/18 [Rx Confirmed 06/01/18] albuterol sulfate HFA 90 mcg/actuation aerosol inhaler 2 puff INHALATION Q4H PRN #18 g 05/01/18 [Rx Confirmed 06/01/18] potassium chloride 20 mEq oral packet 20 meq PO BID #60 ea 05/10/18 [Rx Confirmed 06/01/18] rivaroxaban 20 mg tablet 20 mg PO DAILY #30 tab 05/10/18 [Rx Confirmed 06/01/18] sotalol 80 mg tablet 120 mg PO BID #90 tab 05/10/18 [Rx Confirmed 06/01/18] amlodipine 10 mg tablet 10 mg PO DAILY #60 tab 06/01/18 [Rx Confirmed 06/01/18] buspirone 10 mg tablet 10 mg PO TID #90 tab 06/01/18 [Rx Confirmed 06/01/18] PFSH Medical History Diastolic congestive heart failure (Chronic) Atherosclerotic heart disease of [place] coronary artery without angina pectoris (Chronic) Long-term use of high-risk medication (Chronic) SOB (shortness of breath) (Chronic) Pulmonary HTN (Chronic) SEVEN (obstructive sleep apnea) (Chronic) Atrial fibrillation with RVR (Chronic) Hypokalemia (Chronic) DM2 (diabetes mellitus, type 2) (Chronic) HTN (hypertension) (Chronic) Anxiety (Chronic) CAD (coronary artery disease) (Chronic) HLD (hyperlipidemia) (Chronic) COPD (chronic obstructive pulmonary disease) (Chronic) PAF (paroxysmal atrial fibrillation) (Chronic) Morbid obesity (Chronic) Spastic colon (Chronic) Junctional rhythm (Chronic) NSTEMI (non-ST elevated myocardial infarction) (Resolved) CAD (coronary artery disease) (Chronic) Acute respiratory failure with hypoxia and hypercarbia (Resolved) Acute exacerbation of chronic obstructive pulmonary disease (COPD) (Chronic) Streptococcal pneumonia (Resolved) Paroxysmal atrial fibrillation with rapid ventricular response (Chronic) Debility (Chronic) Hiatal hernia (Chronic) Panic disorder (Chronic) Sepsis (Resolved) Surgical History history of right wrist surgery (Resolved) History of tonsillectomy and adenoidectomy (Resolved) History of colonoscopy (Acute) Family History Mother Cancer leukemia Father Respiratory disease Grandfather Myocardial infarction Grandmother Myocardial infarction Son Diabetes Social History Smoking Status: Never smoker alcohol intake: never substance use type: does not use caffeine: Yes Type: coffee Number of servings: 1 what type of physical activity do you participate in: none seatbelt use: always do you feel safe at home: Yes HPI HPI Chief Complaint: follow-up visit Details: CAYLA CHISHOLM, is a 72yo F who presents to the office today for follow-up of her chronic medical conditions. During her last visit she was noted to be in A. fib with RVR after her screening colonoscopy. This resolved after beta-blockers and Cardizem. She had no subsequent episodes however, she states that on Monday she had an episode where she felt her heart rate was fast and irregular and this lasted for about a minute. She denies any known precipitating factor other than having a very high salt diet the night before. She denies any worsening shortness of breath or chest pain. She is scheduled to follow-up with cardiology today. She continues to report increased anxiety. She states she has a lot of stressors at home. Benzodiazepines and not really help much. Currently on Cymbalta and buspirone however does not take buspirone as prescribed. She brings along her blood pressure log which shows poorly controlled blood pressure. Initial blood pressure in office today is 161/72. Repeat done manually was 140/72 mmHg. ROS Const Constitutional: No weight change, body ache, chills, fatigue, sleep problems, fever(s), change in appetite, snoring, weakness, frequent falls or excessive sweating Eyes Eyes: No change in vision, eye pain, light sensitivity or blurry vision ENT ENT: Positive for ear pressure; no abnormal hearing, ear pain, tinnitus, nasal congestion or sore throat Resp Respiratory: No snoring, cough, shortness of breath or wheezing Cardio Cardiology: No excessive sweating, chest pain at rest, chest pain with exertion, shortness of breath, dyspnea on exertion, palpitations, orthopnea or lightheadedness Gastro GI: No abdominal pain, change in bowel habits, constipation, diarrhea, vomiting, nausea/dyspepsia or cramping Genitourinary-Female: No burning urination, painful urination, urinary incontinence, urinary frequency, abnormal vaginal bleeding, pelvic pain or other Musc Musculoskeletal: No abnormal walking, joint pain, back pain, limited range of motion, numbness or tingling Skin Skin: No redness, dry skin, itching, lesions, wounds or rash Neuro Neurology: No weakness, frequent falls, abnormal hearing, abnormal walking, numbness, tingling, abnormal speech, dizziness or memory loss Psych Psychiatric: No change in appetite, No memory loss, No anxiety, No depression, No Thoughts of harming yourself/Others Endo Endocrine: No fatigue, excessive sweating, cold intolerance, increased thirst/drinking, heat intolerance, flushing or increased hunger Aller/Imm Allergy/Immunologic: No wheezing, itchy eyes, hives or seasonal allergy symptoms Ayaz/Lymp Hematologic/Lymphatic: No easy bleeding, easy bruising or enlarged lymph nodes Exam Const General: cooperative, no acute distress Orientation: alert, oriented x3, awake HENAK Head: atraumatic, normocephalic Ears: hearing grossly normal bilaterally Resp Effort AND Inspection: normal respiratory effort, able to speak in complete sentences Auscultation: Bilateral: Diminished Lung Sounds Cardio Rate: regular rate Rhythm: regular rhythm Heart Sounds: S1 normal, S2 normal GI Palpation: soft, no hepatosplenomegaly Neuro General: alert, awake, oriented x3, moves all extremities, CN's II-XI intact bilaterally Extrem General: pedal edema bilaterally Location: of the leg Psych Appearance: grossly normal Mental Status: mental status grossly normal Affect: normal affect Assessment AND Plan 1. PAF (paroxysmal atrial fibrillation) I48.0 Plan Now in normal sinus rhythm. Rate at 66 bpm. Had an episode of A. fib with RVR after colonoscopy. Possibly due to electrolyte imbalance and increased anxiety. Potassium at that time mildly low at 3.2 and magnesium at 1.6. Has had no adjustments to her potassium. Currently on 20 mEq twice daily. Also appears to have had an episode of irregular and fast heart rate on Monday which resolved within a minute. Repeat potassium and magnesium ordered. I have also asked that she follow-up with cardiology. Otherwise continue current management. 2. Essential hypertension I10 Plan Poorly controlled. Probably combination of increased sodium intake and poorly controlled anxiety. Dietary management discussed. Increase amlodipine to 10 mg daily. If significant lower extremity swelling with increased dose, will cut back to 5 and increase lisinopril. Follow-up in 6 weeks. Advised to call the office with any questions or concerns. 3. Anxiety F41.9 Plan Poorly controlled. Currently on Cymbalta and buspirone however has not been taking buspirone as prescribed. Advised that she take 10 mg twice daily. Continue Cymbalta. Follow-up at next visit. This note was generated with [employer] software. It may contain incorrect words, spelling, and punctuation that were not noted in checking the note before signing. Plan Detail Other Orders Orders: Other Medications Changed: Coding Level of Care Code Off vis,est,level 4 Diagnoses PAF (paroxysmal atrial fibrillation) I48.0 Essential hypertension I10 Hypertension type: essential hypertension Anxiety F41.9 06/04/18 1628 <Electronically signed by Quique Mims MD> Date Quique Mims MD Cosigner Signature: Date (if applicable) CC: CARDIOLOGY VISIT Observed: 06/01/2018 Status: F Source: [place] REPORT 3:20 PM [facility] REPOSITORY [facility] [address] [place] [address] OFFICE VISIT Date of Service: 06/01/18 MR#: [id number] Acct: [id number] Name: CAYLA CHISHOLM Rep #: [id number] : 1945 Provider: SHERRIE Joy Age/Sex: 72/F [place] [facility] [place]: Signed HPI HPI Details: CAYLA CHISHOLM, is a 72 F who presents to the office today for a cardiovascular outpatient follow-up. She has history of coronary artery disease, paroxysmal atrial fibrillation, hypertension, pulmonary hypertension, hyperlipidemia, COPD, SEVEN, and diabetes. She recently underwent a colonoscopy and developed atrial fibrillation with RVR. She was evaluated at PCP office. She states four days ago she noticed elevated heart rate. This last for 1-2 minutes. This was was associated with lightheadedness, dizziness, and pre-syncope. This was also associated with fatigue. Pt. denies chest, arm, jaw, or neck discomfort. Her exercise tolerance is stable. Pt. denies symptoms of CHF, or syncopal episodes. Pt. denies edema or claudication issues. Pt. denies orthopnea, PND, fever, chills, blood in urine, blood in stool, myalgia, or unexplainable fatigue. Intake Vital Signs06/01/18 Height 5 ft 5 in 06/01/18 Weight: 237 lb 06/01/18 Body Mass Index (BMI) 39.4 06/01/18 Blood Pressure 138/7 H 06/01/18 Blood Pressure Location Lt brachial Intake Visit Reasons: a-fib Is patient in pain?: No Allergies labetalol Allergy (Verified 06/01/18 10:26) Unknown pitavastatin [From Livalo] Allergy (Verified 06/01/18 10:26) Other simvastatin [From Zocor] Allergy (Verified 06/01/18 10:26) Other budesonide [From Symbicort] Adverse Reaction (Verified 06/01/18 10:26) Other formoterol [From Symbicort] Adverse Reaction (Verified 06/01/18 10:26) Other hydrocodone [From Vicodin] Adverse Reaction (Verified 06/01/18 10:26) Other Cgqmcvf-Heu-Xjo Reductase Inhibitor Adverse Reaction (Verified 06/01/18 10:26) Other Medications Multivitamin [Daily Multiple Vitamin] 1 ea PO DAILY 10/11/16 [History Confirmed 05/16/18] Dextran 70/He-Cell [Tears Naturale, Artificial Tears] 2 drp EACH EYE Q2H PRN PRN bottle 05/17/17 [Rx Confirmed 06/01/18] acetaminophen 500 mg capsule 500 mg PO Q4H PRN 08/10/17 [History Confirmed 06/01/18] albuterol sulfate 2.5 mg/3 mL (0.083 %) solution for nebulization 2.5 mg INHALATION Q4H PRN #180 vial 08/16/17 [Rx Confirmed 06/01/18] mometasone-formoterol HFA 200 mcg-5 mcg/actuation aerosol inhaler 2 puff INHALATION BID 09/19/17 [History Confirmed 05/16/18] omeprazole 20 mg capsule,delayed release 20 mg PO QDAY #90 cap 09/29/17 [Rx Confirmed 06/01/18] duloxetine 60 mg capsule,delayed release 60 mg PO QDAY #90 cap 01/26/18 [Rx Confirmed 06/01/18] ezetimibe 10 mg tablet 10 mg PO QDAY #90 tab 03/02/18 [Rx Confirmed 06/01/18] hydrochlorothiazide 25 mg tablet 25 mg PO QAM #90 tab 03/02/18 [Rx Confirmed 06/01/18] metformin 500 mg tablet 500 mg PO BID #180 tab 03/02/18 [Rx Confirmed 06/01/18] fenofibrate micronized 67 mg capsule 67 mg PO QPM #90 cap 03/15/18 [Rx Confirmed 06/01/18] lisinopril 20 mg tablet 20 mg PO QDAY #90 tab 03/30/18 [Rx Confirmed 06/01/18] albuterol sulfate HFA 90 mcg/actuation aerosol inhaler 2 puff INHALATION Q4H PRN #18 g 05/01/18 [Rx Confirmed 06/01/18] potassium chloride 20 mEq oral packet 20 meq PO BID #60 ea 05/10/18 [Rx Confirmed 06/01/18] rivaroxaban 20 mg tablet 20 mg PO DAILY #30 tab 05/10/18 [Rx Confirmed 06/01/18] sotalol 80 mg tablet 120 mg PO BID #90 tab 05/10/18 [Rx Confirmed 06/01/18] amlodipine 10 mg tablet 10 mg PO DAILY #60 tab 06/01/18 [Rx Confirmed 06/01/18] buspirone 10 mg tablet 10 mg PO BID #90 tab 06/01/18 [Rx Confirmed 06/01/18] PFSH Medical History Diastolic congestive heart failure (Chronic) Atherosclerotic heart disease of [place] coronary artery without angina pectoris (Chronic) Long-term use of high-risk medication (Chronic) SOB (shortness of breath) (Chronic) Pulmonary HTN (Chronic) SEVEN (obstructive sleep apnea) (Chronic) Atrial fibrillation with RVR (Chronic) Hypokalemia (Chronic) DM2 (diabetes mellitus, type 2) (Chronic) HTN (hypertension) (Chronic) Anxiety (Chronic) CAD (coronary artery disease) (Chronic) HLD (hyperlipidemia) (Chronic) COPD (chronic obstructive pulmonary disease) (Chronic) PAF (paroxysmal atrial fibrillation) (Chronic) Morbid obesity (Chronic) Spastic colon (Chronic) Junctional rhythm (Chronic) NSTEMI (non-ST elevated myocardial infarction) (Resolved) CAD (coronary artery disease) (Chronic) Acute respiratory failure with hypoxia and hypercarbia (Resolved) Acute exacerbation of chronic obstructive pulmonary disease (COPD) (Chronic) Streptococcal pneumonia (Resolved) Paroxysmal atrial fibrillation with rapid ventricular response (Chronic) Debility (Chronic) Hiatal hernia (Chronic) Panic disorder (Chronic) Sepsis (Resolved) Surgical History history of right wrist surgery (Resolved) History of tonsillectomy and adenoidectomy (Resolved) History of colonoscopy (Acute) Family History Mother Cancer leukemia Father Respiratory disease Grandfather Myocardial infarction Grandmother Myocardial infarction Son Diabetes Social History Smoking Status: Never smoker alcohol intake: never substance use type: does not use caffeine: Yes Type: coffee Number of servings: 1 what type of physical activity do you participate in: none seatbelt use: always do you feel safe at home: Yes ROS Const Const: Negative for weakness, body ache, fever(s), chills or fatigue ENT ENT: Positive for dizziness Cardio Chest Pain: No Palpitations: Yes Edema: None Muscle aches with walking: None Resp Respiratory: Negative for SOB with activity, SOB at rest, SOB orthopnea\SOB lying down or paroxysmal nocturnal dyspnea GI GI: Negative nausea, black,tarry stools, bright, red blood in stools or vomiting blood/hematemesis : Negative for hematuria or frequent nighttime urination/ nocturia Musc Musc: Negative for muscle aches/ myalgia Skin Skin: Negative non-healing lesions or rash Neuro Neuro: Positive for lightheadedness, near syncope and dizziness; negative for syncope, orthostatic symptoms or weakness Endo Endo: Negative for fatigue Allergy Allergy/Immunology: Negative for rash Cardiology Exam Const Appearance: cooperative, healthy appearing, comfortable and no acute distress Nutritional Appearance: well nourished and obese Orientation: alert, awake and oriented x3 Head Head: normal to inspection Ears: hearing grossly normal bilaterally Nose: external nose normal Face and Sinus: face symmetric Mouth: oral mucosae normal Eyes General: appearance normal, both eyes and all related structures Eyelids: eyelids normal EOM: EOM intact bilaterally Neck Neck: no JVD and normal visual inspection Carotids: normal carotid upstroke Chest Chest inspection: normal inspection of the chest and normal respiratory effort; negative cough Auscultation: Bilateral: Clear to Auscultation Cardio Rate: regular rate Rhythm: regular rhythm Heart sounds: S1 normal and S2 normal; negative rub, gallop or murmur GI GI: normal to inspection and obese Neuro General: alert, awake, oriented x3 and CN's II-XI intact bilaterally Skin Skin: no rashes or lesions noted Extremities Pulses: Normal: Right Posterior Tibial Pulse, Left Posterior Tibial Pulse, Right Radial Pulse, Left Radial Pulse Lower Extremity Edema: +1: Bilateral Psych Psychological: normal affect Supplemental Info Echocardiogram from November 2017 showed an estimated ejection fraction 65%, moderate concentric left ventricular hypertrophy, severely enlarged left atrium, moderate to severe mitral annular calcification, extension of mitral and a consultation onto the posterior mitral valve leaflet, mild mitral valve insufficiency, mild tricuspid valve deficiency, trivial pulmonic valve insufficiency, calcified aortic root, RVSP of 45 mmHg, and diastolic dysfunction. September 2016 showed peak ECG with no obvious ECG changes and nuclear images showed an element of stress-induced myocardial ischemia involving portion of the distal anterior/anteroapical segment could not necessary be excluded with ejection fraction of 60%. Heart catheterization from September 2016 showed nonobstructive coronary artery disease and a left ventriculogram ejection fraction of 65%. Assessment AND Plan 1. Paroxysmal atrial fibrillation I48.0 Plan Her symptoms 4 days of go appear consistent with paroxysmal atrial fibrillation. It is reassuring that this was short lasting. These episodes do not occur regularly. At this time she will continue with antiarrhythmic and anticoagulation. Depending on her overall course she may be considered for EPS/RFA and/or addition of metoprolol. At this time she is asked to continue to monitor symptoms and contact our office if it worsens. 2. Coronary artery disease involving [place] coronary artery of [place] heart without angina pectoris I25.10 Plan Her heart catheterization September 2016 showed nonobstructive coronary artery disease. Patient denies any chest pain, arm pain, jaw pain, neck pain, shortness of breath, or fatigue suggestive of angina at this time. We will continue to monitor this. We will not make any medication regimen changes and will continue risk factor modification. 3. Chronic diastolic congestive heart failure I50.32 Plan Echocardiogram November 2017 showed ejection fraction of 65% and diastolic dysfunction. She does not express any symptoms concerning for congestive heart failure. She will continue with SUKHWINDER inhibitor and diuretic. We will continue to monitor. 4. Essential hypertension I10 Plan Patient's blood pressure is well-controlled today in the office. We will continue to monitor this. We will not make any medication regimen changes. 5. Pure hypercholesterolemia E78.00 Plan Lipid panel from May 2018 showed cholesterol: 274, HDL: 36, LDL: 173, triglycerides: 327. She has been intolerant to statin medication in the past. She will continue with current cholesterol-lowering medications, Zetia and fenofibrate, and continue with lifestyle/risk factor modification. Plan Detail Additional Comments Thank you for allowing us to participate in the patients plan of care, if you have any questions please do not hesitate to call. This note was generated using a voice recognition system and there may be incorrect words, spelling or punctuation that were not noted when reviewing the office note prior to saving. Coding Level of Care Code Off vis,est,level 3 Diagnoses Paroxysmal atrial fibrillation I48.0 Coronary artery disease involving [place] coronary artery of [place] heart without angina pectoris I25.10 Coronary Disease-Associated Artery/Lesion type: [place] artery [place] vs. transplanted heart: [place] heart Associated angina: without angina Chronic diastolic congestive heart failure I50.32 Heart failure chronicity: chronic Essential hypertension I10 Hypertension type: essential hypertension Pure hypercholesterolemia E78.00 Hyperlipidemia type: pure hypercholesterolemia Coding Level of Care Code Off vis,est,level 3 Diagnoses Paroxysmal atrial fibrillation I48.0 Coronary artery disease involving [place] coronary artery of [place] heart without angina pectoris I25.10 Coronary Disease-Associated Artery/Lesion type: [place] artery [place] vs. transplanted heart: [place] heart Associated angina: without angina Chronic diastolic congestive heart failure I50.32 Heart failure chronicity: chronic Essential hypertension I10 Hypertension type: essential hypertension Pure hypercholesterolemia E78.00 Hyperlipidemia type: pure hypercholesterolemia 06/01/18 1520 <Electronically signed by Leon LAWSON> Date Leon LAWSON Cosigner Signature: Date (if applicable) CC: Quique Mims MD BASIC METABOLIC Collected: 06/01/2018 Status: F Source: [place] PROFILE (BMP) 9:26 AM [facility] REPOSITORY TYPE CODE TESTS RESULT OUT OF RANGE REFERENCE UNITS LAB L501.0100 74-106 mg/dL Normal GLU 96 Result Comment: Please note revised GLUCOSE reference range effective 2017. LAB L501.1000 7-18 mg/dL Normal BUN 15 LAB L501.1100 0.55-1.02 mg/dL Normal CREAT,SERUM 0.62 Result Comment: The validity of the calculated GFR AND GFRAA in patients over 70 years has not been determined. Clinical correlation is essential. LAB L501.1110 >60 mL/min Normal EST GFR 101 Result Comment: Non- GFR Calc LAB L501.1115 >60 mL/min Normal EST GFR - AA 122 Result Comment: GFR Calc LAB L501.1300 10-20 RATIO High BUN/CRE 24.2 LAB L501.2200 8.5-10.1 mg/dL CA Normal 9.1 LAB L501.5300 136-145 mmol/L NA Normal 140 LAB L501.5600 3.5-5.1 mmol/L K Normal 3.7 LAB L501.5900 98-107 mmol/L CL Normal 101 LAB L501.6100 21.0-32.0 mmol/L Normal CO2 32.0 LAB L501.6200 5-15 Normal GAP 7 Performed By: #### L500.2500, L501.5200 #### [facility] [address] [place], [place], [id number] MAGNESIUM Collected: 06/01/2018 Status: F Source: [place]KA 9:26 AM [facility] REPOSITORY TYPE CODE TESTS RESULT OUT OF RANGE REFERENCE UNITS LAB L501.5200 1.6-2.6 mg/dL Normal MG 1.7 Performed By: #### L500.2500, L501.5200 #### [facility] [address] [place], [place], [id number] LIPID PROFILE Collected: 06/01/2018 Status: F Source: [place] 9:26 AM [facility] REPOSITORY TYPE CODE TESTS RESULT OUT OF RANGE REFERENCE UNITS LAB L501.4900 200 mg/dL High CHOL 274 Result Comment: <200 mg/dL Desirable 200-240 mg/dL Borderline >240 mg/dL High Risk LAB L501.5000 mg/dL High TRIG 327 Result Comment: The drugs N-Acetylcysteine and Metamizole may falsely depress this assay. Serum Triglycerides Reference Interval Normal <150 mg/dL Borderline high 150 - 199 mg/dL High 200 - 499 mg/dL Very High > or = 500 mg/dL LAB L501.6400 mg/dL Low HDL 36 Result Comment: The drugs N-Acetylcysteine and Metamizole may falsely depress this assay. Reference Range HDL <40 mg/dL Low HDL Cholesterol HDL >or= 60 mg/dL High HDL Cholesterol LAB L501.6500 0-130 mg/dL High LDL 173 LAB L501.6600 5-40 mg/dL High VLDL 65 Performed By: #### L500.4100 #### [facility] [address] [facility], [address] 12 LEAD ELECTROCARDIOGRAM Observed: 05/22/2018 Status: F Source: [place] 11:30 AM [facility] REPOSITORY [facility] [address] [place] [address] 12 Lead EKG 05/16/18 0936 MR#: [id number] Acct: [id number] Name: CAYLA CHISHOLM Rep #: [id number] : 1945 72 From: Donte Lutz MD Attending Dr: Promise Bond MD Status: [facility] Ordering Dr: Norris Morris MD Date: 05/16/18 Location: EN Sex: F C Admitted: Test Reason : TACHYCARDIA Blood Pressure : / mmHG Vent. Rate : 130 BPM Atrial Rate : 138 BPM P-R Int : 000 ms QRS Dur : 092 ms QT Int : 354 ms P-R-T Axes : 000 029 -73 degrees QTc Int : [address] AND T wave abnormality, consider inferior ischemia Abnormal ECG When compared with ECG of 01-JUN-2017 20:01, Atrial fibrillation has replaced Sinus rhythm Vent. rate has increased BY [address] now depressed in Inferior leads ST now depressed in Anterolateral leads T wave inversion now evident in Inferior leads Confirmed by DONTE LUTZ ([id number]), art editor FARAZ JAMES ([id number]) on 05/22/2018 11:29:53 AM Referred By: Promise Bond Confirmed By:DONTE LUTZ 05/22/18 1129 Date Donte Lutz MD CC: Norris Morris MD; Quique Mims MD; Promise Bond MD Signed 12 LEAD ELECTROCARDIOGRAM Observed: 05/22/2018 Status: F Source: [place] 11:30 AM [facility] REPOSITORY [facility] Services [address] [place] [id number] 12 Lead EKG 05/16/18 0936 MR#: [id number] Acct: [id number] Name: CAYLA CHISHOLM Rep #: [id number] : 1945 72 From: Donte Lutz MD Attending Dr: Promise Bond MD Status: [facility] Ordering Dr: Promise Bond MD Date: 05/16/18 Location: EN Sex: F C Admitted: Test Reason : TACHYCARDIA Blood Pressure : / mmHG Vent. Rate : 093 BPM Atrial Rate : 093 BPM P-R Int : 198 ms QRS Dur : 092 ms QT Int : 374 ms P-R-T Axes : 000 031 056 degrees QTc Int : 465 ms Normal sinus rhythm Nonspecific ST abnormality Abnormal ECG When compared with ECG of 16-MAY-2018 09:36, MANUAL COMPARISON REQUIRED, DATA IS UNCONFIRMED Confirmed by DONTE LUTZ ([id number]), art editor FARAZ JAMES ([id number]) on 05/22/2018 11:30:03 AM Referred By: Promise Bond Confirmed By:DONTE LUTZ 05/22/18 1130 Date Donte Lutz MD CC: Quique Mims MD; Promise Bond MD Signed DEXA BONE DENSITY Observed: 05/22/2018 Status: F Source: [place] STUDY 8:55 AM [facility] REPOSITORY [facility] Imaging Services [address] [place] [address] Dexa Bone Density Study MR#: [id number] Acct: [id number] Name: CAYLA CHISHOLM Rep #: [id number] : 1945 F 72 From: Omar Reyse MD PCP: Quique Mims MD Status: REG CLI Study: Dexa Bone Density Study Date of Exam: 05/22/18 Exam# [id number] Ordering Dr: Timmy Ndiaye STUDY: DUAL ENERGY X-RAY ABSORPTIOMETRY / DXA REASON FOR EXAM: Female, 72 years old. The patient is postmenopausal. Loss of height. TECHNIQUE: Bone Mineral Density (BMD) measurements of lumbar spine and bilateral hips were obtained. COMPARISON: None. FINDINGS: Lumbar Spine (L1-L4): g/cm2 (1.004) / T-score (-1.5) / Z-score (0.2) Findings are suggestive of osteopenia with a moderate fracture risk. Left Femur Total: g/cm2 (0.778) / T-score (-1.8) / Z- score (-0.3) Left Femoral Neck: g/cm2 (0.669) / T-score (-2.7) / Z- score (-0.9) Right Femur Total: g/cm2 (0.764) / T-score (-1.9) / Z- score (-0.5) Right Femoral Neck: g/cm2 (0.818) / T-score (-0.6) / Z-score (0.1) BD/Dexa Bone Density Study IMPRESSION: The patient is considered osteoporotic as outlined below according to World Loc Organization (WHO) criteria with a high fracture risk. Reference Information: The T-score is the number of standard deviations above or below the standard which is normal for young adults at their peak bone mineral density. The World Health Organization (WHO) interprets the T-scores as follows: Above -1 Normal bone density Between -1 and -2.5 Osteopenia Equal to / or below -2.5 Osteoporosis As a practical clinical guideline, osteopenia may be graded as follows: Mild -1 through -1.5 Moderate -1.6 through -2.0 Severe -2.1 through -2.4 The Z-score is the number of standard deviations above or below age-matched controls. A Z-score of less than -1.5 would be considered abnormal. References: 1. NIH Osteoporosis and Related Bone Diseases http://www.osteo.org 2. International Society for Clinical Densitometry http://www.iscd.org 3. National Osteoporosis Foundation http://www.nof.org Electronically Signed: Omar Reyes MD at 14:51 EDT Tel [phone], Service support , CC: Quique Mims MD; Timmy Ndiaye NP Collateral Clerk: Signed INTERNAL MEDICINE Observed: 05/21/2018 Status: F Source: [facility] OFFICE VISIT 1:10 PM [facility] [address] [place] [address] [place] [address] OFFICE VISIT Date of Service: 05/16/18 MR#: [id number] Acct: [id number] Name: CAYLA CHISHOLM Rep #: [id number] : 1945 Provider: Quique Mims MD Age/Sex: 72/F [place] [facility] [place] Status: Signed Intake Vital Signs05/16/18 Height 5 ft 5 in 05/16/18 Weight: 230 lb 05/16/18 Body Mass Index (BMI) 38.2 05/16/18 Blood Pressure 116/73 05/16/18 Blood Pressure Location Lt brachial Intake Visit Reasons: colonoscopy today/in AND out of AFIB in recovery Chief Complaint: Had Colonoscopy today AND A FIB in recovery Is patient in pain?: No Allergies labetalol Allergy (Verified 05/16/18 14:08) Unknown pitavastatin [From Livalo] Allergy (Verified 05/16/18 14:08) Other simvastatin [From Zocor] Allergy (Verified 05/16/18 14:08) Other budesonide [From Symbicort] Adverse Reaction (Verified 05/16/18 14:08) Other formoterol [From Symbicort] Adverse Reaction (Verified 05/16/18 14:08) Other hydrocodone [From Vicodin] Adverse Reaction (Verified 05/16/18 14:08) Other Ceevkka-Vre-Lzx Reductase Inhibitor Adverse Reaction (Verified 05/16/18 14:08) Other Medications Multivitamin [Daily Multiple Vitamin] 1 ea PO DAILY 10/11/16 [History Confirmed 05/16/18] Dextran 70/He-Cell [Tears Naturale, Artificial Tears] 2 drp EACH EYE Q2H PRN PRN bottle 05/17/17 [Rx Confirmed 05/16/18] busPIRone [Buspar] 10 mg PO TID tab 05/17/17 [Rx Confirmed 05/16/18] acetaminophen 500 mg capsule 500 mg PO Q4H PRN 08/10/17 [History Confirmed 05/16/18] albuterol sulfate 2.5 mg/3 mL (0.083 %) solution for nebulization 2.5 mg INHALATION Q4H PRN #180 vial 08/16/17 [Rx Confirmed 05/16/18] mometasone-formoterol HFA 200 mcg-5 mcg/actuation aerosol inhaler 2 puff INHALATION BID 09/19/17 [History Confirmed 05/16/18] omeprazole 20 mg capsule,delayed release 20 mg PO QDAY #90 cap 09/29/17 [Rx Confirmed 05/16/18] duloxetine 60 mg capsule,delayed release 60 mg PO QDAY #90 cap 01/26/18 [Rx Confirmed 05/16/18] ezetimibe 10 mg tablet 10 mg PO QDAY #90 tab 03/02/18 [Rx Confirmed 05/16/18] hydrochlorothiazide 25 mg tablet 25 mg PO QAM #90 tab 03/02/18 [Rx Confirmed 05/16/18] metformin 500 mg tablet 500 mg PO BID #180 tab 03/02/18 [Rx Confirmed 05/16/18] fenofibrate micronized 67 mg capsule 67 mg PO QPM #90 cap 03/15/18 [Rx Confirmed 05/16/18] amlodipine 10 mg tablet 5 mg PO DAILY #60 tab 03/30/18 [Rx Confirmed 05/16/18] lisinopril 20 mg tablet 20 mg PO QDAY #90 tab 03/30/18 [Rx Confirmed 05/16/18] albuterol sulfate HFA 90 mcg/actuation aerosol inhaler 2 puff INHALATION Q4H PRN #18 g 05/01/18 [Rx Confirmed 05/16/18] potassium chloride 20 mEq oral packet 20 meq PO BID #60 ea 05/10/18 [Rx Confirmed 05/16/18] rivaroxaban 20 mg tablet 20 mg PO DAILY #30 tab 05/10/18 [Rx Confirmed 05/16/18] sotalol 80 mg tablet 120 mg PO BID #90 tab 05/10/18 [Rx Confirmed 05/16/18] diazepam 5 mg tablet 5 mg PO QHS PRN #5 tab 05/16/18 [Rx Confirmed 05/16/18] metoprolol tartrate 25 mg tablet 25 mg PO BID 5 Days #10 tab 05/16/18 [Rx Confirmed 05/16/18] PFSH Medical History Diastolic congestive heart failure (Chronic) Atherosclerotic heart disease of [place] coronary artery without angina pectoris (Chronic) Long-term use of high-risk medication (Chronic) SOB (shortness of breath) (Chronic) Pulmonary HTN (Chronic) SEVEN (obstructive sleep apnea) (Chronic) Atrial fibrillation with RVR (Chronic) Hypokalemia (Chronic) DM2 (diabetes mellitus, type 2) (Chronic) HTN (hypertension) (Chronic) Anxiety (Chronic) CAD (coronary artery disease) (Chronic) HLD (hyperlipidemia) (Chronic) COPD (chronic obstructive pulmonary disease) (Chronic) PAF (paroxysmal atrial fibrillation) (Chronic) Morbid obesity (Chronic) Spastic colon (Chronic) Junctional rhythm (Chronic) NSTEMI (non-ST elevated myocardial infarction) (Resolved) CAD (coronary artery disease) (Chronic) Acute respiratory failure with hypoxia and hypercarbia (Resolved) Acute exacerbation of chronic obstructive pulmonary disease (COPD) (Chronic) Streptococcal pneumonia (Resolved) Paroxysmal atrial fibrillation with rapid ventricular response (Chronic) Debility (Chronic) Hiatal hernia (Chronic) Panic disorder (Chronic) Sepsis (Resolved) Surgical History history of right wrist surgery (Resolved) History of tonsillectomy and adenoidectomy (Resolved) History of colonoscopy (Acute) Family History Mother Cancer leukemia Father Respiratory disease Grandfather Myocardial infarction Grandmother Myocardial infarction Son Diabetes Social History Smoking Status: Never smoker alcohol intake: never substance use type: does not use caffeine: Yes Type: coffee Number of servings: 1 what type of physical activity do you participate in: none seatbelt use: always do you feel safe at home: Yes HPI HPI Chief Complaint: Had Colonoscopy today AND A FIB in recovery Details: CAYLA CHISHOLM, is a 72yo F who presents to the office today from colonoscopy recovery room due to A. fib with RVR. She has a history of A. fib currently on anticoagulation. However after her colonoscopy today was noted to be in RVR. On review of the records, it appears she received labetalol, Cardizem to help with rate control. She feels well at this time but does states that she is a little anxious. She denies chest pain, worsening shortness of breath, syncopal or near syncopal episodes. She is here with her daughter. ROS Const Constitutional: No chills, fatigue, fever(s), frequent falls, malaise, weakness, sleep problems or change in appetite Eyes Eyes: No blurry vision, change in vision, double vision, discharge or visual disturbances ENT ENT: No abnormal hearing, ear pain, ear pressure, tinnitus or dizziness/vertigo Resp Respiratory: No cough, shortness of breath or wheezing Cardio Cardiology: Positive for dyspnea on exertion; no chest pain at rest, chest pain with exertion, shortness of breath, generalized swelling, irregular heart rhythm, lightheadedness, orthopnea, fast heart rate or palpitations Gastro GI: No abdominal pain, change in bowel habits, constipation, diarrhea, nausea/dyspepsia or vomiting Genitourinary-Female: No difficulty urinating, burning urination, painful urination, urinary incontinence, urinary frequency, urinary urgency, urinary hesitancy, urinary retention, Frequent nighttime urination/ nocturia, sexual problems, genital lesions, abnormal vaginal bleeding, pelvic pain, vaginal dryness, vaginal odor or Vaginal Itching Musc Musculoskeletal: No joint pain, back pain, joint swelling, limited range of motion, numbness or tingling Skin Skin: No change in skin color, itching, rash or wounds Breast Breast: No breast lump or breast pain Neuro Neurology: No frequent falls, weakness, abnormal hearing, numbness, tingling, unsteady gait/balance, dizziness, loss of vision, memory loss or visual disturbances Psych Psychiatric: No memory loss, No anxiety, No change in appetite, No depression, No Thoughts of harming yourself/Others Endo Endocrine: No fatigue, heat intolerance, increased thirst/drinking, increased hunger or increased urination Aller/Imm Allergy/Immunologic: No wheezing, itchy eyes or seasonal allergy symptoms Ayaz/Lymp Hematologic/Lymphatic: No easy bleeding, easy bruising or enlarged lymph nodes Exam Const General: cooperative, no acute distress Orientation: alert, oriented x3, awake HENAK Head: atraumatic, normocephalic Ears: hearing grossly normal bilaterally Resp Effort AND Inspection: normal respiratory effort, able to speak in complete sentences Auscultation: Bilateral: Diminished Lung Sounds Cardio Rate: regular rate Rhythm: abnormal rhythm Heart Sounds: S1 normal, S2 normal GI Palpation: soft, no hepatosplenomegaly Neuro General: alert, awake, oriented x3, moves all extremities, CN's II-XI intact bilaterally Psych Appearance: grossly normal Mental Status: mental status grossly normal Mood: anxious mood Assessment AND Plan 1. Atrial fibrillation with RVR I48.91 Plan Initial heart rate with the monitor was 145. However over about an hour she was rechecked 3 times and her heart rate went from 100 - 79 - 70 respectively. Otherwise asymptomatic. Does have underlying anxiety and states that her anxiety is increased at this time. Prescription for Valium given advised to take 5 mg today. Continue to monitor heart rate at home if she notes heart rate over 110 she was advised to go to the emergency room. She was also advised to go to the emergency room if she notes persistent/worsening shortness of breath and chest discomfort. Advised to call the office with any other concerns. Otherwise follow-up as previously scheduled. This note was generated with [employer] dictation software. It may contain incorrect words, spelling, and punctuation that were not noted in checking the note before signing. Plan Detail Other Medications New: Discontinued: diazepam (Valium) Discontinued Reason: Duplicate5 mg PO DAILY PRN 5 tabs 0RF anxiety Order Coding Level of Care Code Off vis,est,level 3 Diagnoses Atrial fibrillation with RVR I48.91 05/21/18 1310 <Electronically signed by Quique Mims MD> Date Quique Mims MD Cosigner Signature: Date (if applicable) CC: OPERATIVE REPORT - Observed: 05/16/2018 Status: F Source: [facility] 10:36 AM [facility] Medical Records Department [address] [place] [id number] Operative Report - Endoscopy MR#: [id number] Acct: [id number] Name: CAYLA CHISHOLM Rep #: [id number] : 1945 72 From: Promise Bond MD PCP: Quique Mims MD Status: [facility] Patient Name: Cayla Chisholm Procedure Date: 05/16/2018 9:58 AM Date of : 1945 Age: 72 Procedure: Colonoscopy Indications: Screening for colorectal malignant neoplasm Providers: Promise Bond MD Referring MD: Promise Bond MD Medicines: Monitored Anesthesia Care Patient Profile: Last Colonoscopy: 10 years ago. Complications: No immediate complications. Procedure: Pre-Anesthesia Assessment: - Prior to the procedure, a History and Physical was performed, and patient medications and allergies were reviewed. The patient's tolerance of previous anesthesia was also reviewed. The risks and benefits of the procedure and the sedation options and risks were discussed with the patient. All questions were answered, and informed consent was obtained. Prior Anticoagulants: The patient has taken Xarelto (rivaroxaban), last dose was 5 days prior to procedure. ASA Grade Assessment: III - A patient with severe systemic disease. After reviewing the risks and benefits, the patient was deemed in satisfactory condition to undergo the procedure. After I obtained informed consent, the scope was passed under direct vision. Throughout the procedure, the patient's blood pressure, pulse, and oxygen saturations were monitored continuously. The Colonoscope was introduced through the anus and advanced to the cecum, identified by the appendiceal orifice, ileocecal valve and palpation. The colonoscopy was performed without difficulty. The patient tolerated the procedure well. The quality of the bowel preparation was good. Scope In: 10:09:44 AM Scope Withdrawal Time 0 hours 13 minutes 16 seconds Scope Out: 10:29:41 AM Total Procedure Duration Time 0 hours 19 minutes 57 seconds Findings: Multiple small-mouthed diverticula were found in the sigmoid colon and descending colon. The entire examined colon appeared normal. Internal hemorrhoids were found during retroflexion. The hemorrhoids were Grade I (internal hemorrhoids that do not prolapse). Hemorrhoids were found on perianal exam. The exam was otherwise without abnormality. Impression: - Diverticulosis in the sigmoid colon and in the descending colon. - The entire examined colon is normal. - Internal hemorrhoids. - The examination was otherwise normal. - No specimens collected. Recommendation: - Discharge patient to home. - High fiber diet. - Continue present medications. - Repeat colonoscopy in 10 years for screening purposes. Procedure Code(s): --- Professional --- G0121, Colorectal cancer screening; colonoscopy on individual not meeting criteria for high risk Diagnosis Code(s): --- Professional --- Z12.11, Encounter for screening for malignant neoplasm of colon K64.0, First degree hemorrhoids K57.30, Diverticulosis of large intestine without perforation or abscess without bleeding CPT copyright 2017 [employer]. All rights reserved. The codes documented in this report are preliminary and upon ticket printer review may be revised to meet current compliance requirements. MD Promise Benson MD 05/16/2018 10:36:21 AM This report has been signed electronically. Number of Addenda: 0 Note Initiated On: 05/16/2018 9:58 AM 05/16/18 1036 Date Promise Bond MD Cosigner Signature: Date (if indicated) CC: Quique Mims MD; Promise Bond MD Date Dictated: 05/16/1858 Date Transcribed: Collateral Clerk: JANINE Signed BASIC METABOLIC Collected: 05/16/2018 Status: F Source: [facility] PROFILE (BMP) 9:40 AM [facility] REPOSITORY Order Comment: Has pt arrived? Y TYPE CODE TESTS RESULT OUT OF RANGE REFERENCE UNITS LAB L501.0100 74-106 mg/dL High GLU 111 Result Comment: Fasting Glucose result from 100 to 125 mg/dL suggests IMPAIRED HOMEOSTASIS per A.D.A. criteria. Please note revised GLUCOSE reference range effective 2017. LAB L501.1000 7-18 mg/dL Normal BUN 11 LAB L501.1100 0.55-1.02 mg/dL Normal CREAT,SERUM 0.65 Result Comment: The validity of the calculated GFR AND GFRAA in patients over 70 years has not been determined. Clinical correlation is essential. LAB L501.1110 >60 mL/min Normal EST GFR 95 Result Comment: Non- GFR Calc LAB L501.1115 >60 mL/min Normal EST GFR - AA 115 Result Comment: GFR Calc LAB L501.1255 ml/min Normal Estimated CRCL 41.40 LAB L501.1300 10-20 RATIO Normal BUN/CRE 16.8 LAB L501.2200 8.5-10 mg/dL Normal .1 CA 9.1 LAB L501.5300 136-14 mmol/L Normal 5 NA 139 LAB L501.5600 3.5-5. mmol/L Low 1 K 3.2 LAB L501.5900 98-107 mmol/L Normal CL 103 LAB L501.6100 21.0-3 mmol/L Normal 2.0 CO2 25.0 LAB L501.6200 5-15 Normal GAP 11 Performed By: #### L500.2500, L501.5200 #### [facility] [address] [place], [address] MAGNESIUM Collected: 05/16/2018 Status: F Source: [facility] 9:40 AM [facility] REPOSITORY Order Comment: Has pt arrived? Y TYPE CODE TESTS RESULT OUT OF RANGE REFERENCE UNITS LAB L501.5200 1.6-2.6 mg/dL Normal MG 1.6 Performed By: #### L500.2500, L501.5200 #### [facility] [address] [place], [address] BEDSIDE GLUCOSE Collected: 05/16/2018 Status: F Source: [facility] 9:18 AM [facility]POS[facility]ORY TYPE CODE TESTS RESULT OUT OF REFERENCE UNITS RANGE LAB L501.080 70-110 mg/dL High BEDSIDE GLU 113 Result Comment: MANAGEMENT OF PATIENT CARE PER NURSING PROTOCOL Performed By: #### L501.080 #### [facility] Point of Care [address] [place] [address]. [place] [address] SCREENING MAMM (CAD), Observed: 05/08/2018 Status: F Source: [facility] 10:21 AM [facility] Imaging Services [address] [place] [address] SCREENING MAMM (CAD), BIL MR#: [id number] Acct: [id number] Name: CAYLA CHISHOLM Rep #: [id number] : 1945 F 72 From: Omar Reyes MD PCP: Quique Mims MD Status: [facility] Study: SCREENING MAMM (CAD), BILAT Date of Exam: 05/08/18 Exam# [id number] Ordering Dr: Quique Mims MD MAMMOGRAPHY - BILATERAL SCREENING REASON FOR EXAM: Female, 72 years old. Routine annual screening examination. PERTINENT HISTORY: Non-contributory. TECHNIQUE: Digital bilateral breast jae (3D mammographic acquisition) in the CC and MLO projections. 2-D mediolateral oblique (MLO) and craniocaudad (CC) views of both breasts were obtained. CAD: Full Field Digital Mammography with Computer Added Detection was performed. COMPARISON: Comparison is made with prior outside examination dated August 04, 2015. FINDINGS: Breast Composition: There are scattered areas of fibroglandular density. There are no dominant masses or suspicious calcifications. No other significant abnormalities are identified. There has been no significant change since the prior study. BI/SCREENING MAMM (CAD), BILAT IMPRESSION: Stable bilateral screening mammogram. Yearly follow-up mammogram recommended. (A) ASSESSMENT CATEGORY: BIRADS Category 1: Negative. A letter regarding these results will be sent to the patient by the facility within 30 days. Approximately 10% of breast cancers are not detected by mammography. A normal mammogram should not delay biopsy of a clinically suspicious abnormality. [id number] Electronically Signed: Omar Reyes MD at 11:04 EDT Tel [phone], Service support , CC: Quique Mims MD Collateral Clerk: Signed PULMONARY VISIT REPORT Observed: 05/01/2018 Status: F Source: [facility] 1:19 PM [facility] Pulmonary Medicine [address] [place] [address] OFFICE VISIT Date of Service: 05/01/18 MR#: [id number] Acct: [id number] Name: CAYLA CHISHOLM Rep #: [id number] : 1945 Provider: Brittany Parsons Age/Sex: 72/F Location: [facility] Status: Signed Assessment AND Plan 1. SEVEN (obstructive sleep apnea) G47.33 Plan Patient is using and benefiting from Pap therapy. No indication for titration study at this time. Continue to encourage weight loss. Contact the office for any new or worsening symptoms in the meantime. Follow-up in 6 mos. 2. Morbid obesity E66.01 Plan Offered alternatives and encouraged moderate exercise and diet modifications to enhance weight loss. 3. Chronic obstructive pulmonary disease, unspecified COPD type J44.9 Plan Lengthy education on the use of Dulera 2 puffs twice daily as a maintenance medication, will order an albuterol rescue inhaler to be carried when away from home. She may continue to use albuterol nebulizer as needed when at home for rescue. Reinforced rinsing her mouth out after the Dulera. No additional testing at this time. Flu vaccination today. Follow-up with Dr. Robertson in 6 months. Contact the office with any new or worsening symptoms over the winter. The patient conveyed understanding and is agreeable with this plan. 4. Depression with anxiety F41.8 Plan Complicates exam, plan, care and prognosis. Encouraged to discuss her depression and anxiety with her PCP. She reports that she has an upcoming visit with the PCP in the very near future. Emotional support provided. Plan Detail Other Orders Orders: Other Medications New: albuterol sulfate HFA 90 mcg/actuation (Vento2 puffs Inhalation Q4H PRN 18 grams 6RF shor maryjane HFA) tness of breath or wheezing Discontinued: Fluad 2017- 65yr up(PF)45 mcg(15 mcgx3)/0.5 mL intramuscu0.5 mL IM ONCE 1 mL 0RF NS Z23 lar syringe (flu vac 2017 [id number](PF)) Discontinue d Reason: Office Medication has been Documented as given Follow Up 6 Months (DMB) HPI 6 M FU: Chief Complaint: decrease stamina Details: HPI Comments Details: 72-year-old obese female here today to review walk test and PAP compliance report. She is here with her spouse. The patient is answering questions with direct, sometimes single-word answers. July states that she is feeling well. Denies cough, nasal drainage, fever, chills, and chest pressure/heaviness. Denies shortness of breath, however describes daily activities including light walking or climbing stairs causes some shortness of breath requiring her to stop and recover. She denies sputum production or hemoptysis, chest pain or palpitations. See complete ROS. She has not been using Dulera as prescribed. She is using it once daily and as needed. She does rinse her mouth after, and denies any medication side effects such as sore throat or thrush. She is using her albuterol nebulizer several times daily and finds it does a better job. She does not have a rescue inhaler currently. Compliance report shows 100% compliance, with daily use of 10 hours. 9 minutes. AHI of 0.4 and no leaks. The patient states that she naps 1-2 times a day for greater than 45 minutes at a time. She does use PAP when she is napping. July states that she does not feel rested when she awakens from sleep. I don't feel like it makes a real difference, and that ever since September this year, I haven't felt anything has worked for me. I am just not happy or satisfied. Recent walking test revealed that July ambulated 300 feet and did not require supplemental oxygen at this time. July does not feel that she needs oxygen, she is fine taking breaks during her activities. Intake Vital Signs05/01/18 Height 5 ft 6 in 05/01/18 Weight: 238 lb Intake Visit Reasons: 6 M FU Quantitative Manager Required: No DME Vendor: [employer] Accompanied by: Family / Other Allergies labetalol Allergy (Verified 05/01/18 06:56) Unknown pitavastatin [From Livalo] Allergy (Verified 05/01/18 06:56) Other simvastatin [From Zocor] Allergy (Verified 05/01/18 06:56) Other budesonide [From Symbicort] Adverse Reaction (Verified 05/01/18 06:56) Other formoterol [From Symbicort] Adverse Reaction (Verified 05/01/18 06:56) Other hydrocodone [From Vicodin] Adverse Reaction (Verified 05/01/18 06:56) Other Cuwqrdo-Olw-Twz Reductase Inhibitor Adverse Reaction (Verified 05/01/18 06:56) Other Medications Multivitamin [Daily Multiple Vitamin] 1 ea PO DAILY 10/11/16 [History Confirmed 05/01/18] Rivaroxaban [Xarelto] 20 mg PO DAILY #30 tab 10/17/16 [Rx Confirmed 05/01/18] Dextran 70/He-Cell [Tears Naturale, Artificial Tears] 2 drp EACH EYE Q2H PRN PRN bottle 05/17/17 [Rx Confirmed 05/01/18] Sotalol Hydrochloride [Betapace (Beta Rufina)] 120 mg PO BID #90 tab 05/17/17 [Rx Confirmed 05/01/18] busPIRone [Buspar] 10 mg PO TID tab 05/17/17 [Rx Confirmed 05/01/18] acetaminophen 500 mg capsule 500 mg PO Q4H PRN 08/10/17 [History Confirmed 05/01/18] albuterol sulfate 2.5 mg/3 mL (0.083 %) solution for nebulization 2.5 mg INHALATION Q4H PRN #180 vial 08/16/17 [Rx Confirmed 05/01/18] potassium chloride 20 mEq oral packet 20 meq PO BID 08/16/17 [History Confirmed 05/01/18] mometasone-formoterol HFA 200 mcg-5 mcg/actuation aerosol inhaler 2 puff INHALATION BID 09/19/17 [History Confirmed 05/01/18] omeprazole 20 mg capsule,delayed release 20 mg PO QDAY #90 cap 09/29/17 [Rx Confirmed 05/01/18] cholecalciferol (vitamin D3) 50,000 unit capsule 50,000 unit PO .Q1-M cap 11/27/17 [History Confirmed 05/01/18] duloxetine 60 mg capsule,delayed release 60 mg PO QDAY #90 cap 01/26/18 [Rx Confirmed 05/01/18] ezetimibe 10 mg tablet 10 mg PO QDAY #90 tab 03/02/18 [Rx Confirmed 05/01/18] hydrochlorothiazide 25 mg tablet 25 mg PO QAM #90 tab 03/02/18 [Rx Confirmed 05/01/18] metformin 500 mg tablet 500 mg PO BID #180 tab 03/02/18 [Rx Confirmed 05/01/18] fenofibrate micronized 67 mg capsule 67 mg PO QPM #90 cap 03/15/18 [Rx Confirmed 05/01/18] amlodipine 10 mg tablet 5 mg PO DAILY #60 tab 03/30/18 [Rx Confirmed 05/01/18] lisinopril 20 mg tablet 20 mg PO QDAY #90 tab 03/30/18 [Rx Confirmed 05/01/18] albuterol sulfate HFA 90 mcg/actuation aerosol inhaler 2 puff INHALATION Q4H PRN #18 g 05/01/18 [Rx Confirmed 05/01/18] PFSH Medical History Diastolic congestive heart failure (Chronic) Atherosclerotic heart disease of [place] coronary artery without angina pectoris (Chronic) Long-term use of high-risk medication (Chronic) SOB (shortness of breath) (Chronic) Pulmonary HTN (Chronic) SEVEN (obstructive sleep apnea) (Chronic) Atrial fibrillation with RVR (Chronic) Hypokalemia (Chronic) DM2 (diabetes mellitus, type 2) (Chronic) HTN (hypertension) (Chronic) Anxiety (Chronic) CAD (coronary artery disease) (Chronic) HLD (hyperlipidemia) (Chronic) COPD (chronic obstructive pulmonary disease) (Chronic) PAF (paroxysmal atrial fibrillation) (Chronic) Morbid obesity (Chronic) Spastic colon (Chronic) Junctional rhythm (Chronic) NSTEMI (non-ST elevated myocardial infarction) (Resolved) CAD (coronary artery disease) (Chronic) Acute respiratory failure with hypoxia and hypercarbia (Resolved) Acute exacerbation of chronic obstructive pulmonary disease (COPD) (Chronic) Streptococcal pneumonia (Resolved) Paroxysmal atrial fibrillation with rapid ventricular response (Chronic) Debility (Chronic) Hiatal hernia (Chronic) Panic disorder (Chronic) Sepsis (Resolved) Surgical History history of right wrist surgery (Resolved) History of tonsillectomy and adenoidectomy (Resolved) Family History Mother Cancer leukemia Father Respiratory disease Grandfather Myocardial infarction Grandmother Myocardial infarction Son Diabetes Social History Smoking Status: Never smoker alcohol intake: never substance use type: does not use caffeine: Yes Type: coffee Number of servings: 1 what type of physical activity do you participate in: none seatbelt use: always do you feel safe at home: Yes Review of Systems Const CONSTITUTIONAL: Positive fatigue; negative anorexia, body ache, chills, daytime sleepiness, fever(s), night sweats, oral thrush, stops breathing during sleep, weight loss, sleeping in chair, weight loss, weight gain, frequent colds, seasonal allergies, other, headache(s) or orthopnea EETM Ear Nose Throat Mouth: Positive hearing normal; negative hard of hearing, hoarseness, dry mouth in morning, change in vision, itchy eyes, eye pain, swallowing Difficulty, ear pain, nose bleed, headache(s), mouth pain, nasal congestion, nasal discharge, post nasal drip, sinus pain, sinus pressure, sore throat or other Cardio Cardiovascular: Negative chest pain, chest pain at rest, chest pain with activity, irregular heart rhythm, edema, shortness of breath when lying down, palpitations, murmur or other Resp Respiratory: Positive as per HPI and shortness of breath shortness of breath: Positive with activity; negative pain with cough, wheezing, chest congestion, cough, chest tightness, pain on inspiration, inhalers, increase use of rescue inhalers, snoring, apnea or other Gastro Gastrointestional: Negative bloody stools, change in appetite, difficulty swallowing, reflux, hematemesis, melena stool, loose stool, constipation or other Genitourinary: Negative blood in urine, nocturia, pain with urination or other Musc Musculoskeletal: Negative body pain, back pain, neck pain or other Skin/Breast Skin/Breast: Negative dry skin, itching, rash, unusual bruising, breast lump or other Neuro Neurological: Negative restless legs, confusion, weakness or other Psych Psychocological: Negative abnormal sleep pattern, anxiety, thoughts of hurting self/others, hopelessness or other Lymph Lymphatic: Negative easy bleeding, easy bruising, swollen lymph nodes or other Exam Const Constitutional: Positive conversant (very direct, and short answers), cooperative and obese; negative in no acute respiratory distress, smells of smoke, frail appearing, appears older than stated age or wearing supplemental oxygen Head Head: Positive normocephalic and atraumatic; negative cyanosis of lips/distal nose, frontal sinus tenderness or maxillary sinus tenderness Eyes Eye: Positive clear conjunctiva Ears Ear: Positive hearing normal and external ears normal; negative hard of hearing Nose Nose: Positive external nose normal and no nasal discharge; negative epistaxis, clear nasal discharge or purulent nasal discharge Mouth Mouth: Positive oral mucosae normal and posterior oropharynx is adequate; negative post nasal drip or oral thrush present Neck Neck: Positive normal visual inspection and trachea midline Chest Wall Chest: Positive normal inspection of the chest and symmetric chest movement; negative tenderness Resp lung sounds: Positive clear to auscultation, normal respiratory effort and normal expiratory time; negative wheeze present on forced exhalation, prolonged expiratory time, increased work of breathing or use of accessory muscles Cardio Cardiac: Positive regular rate and regular rhythm; negative murmur GI GI: Positive obese, normal to inspection and normal bowel sounds; negative distended Genitourinary: Positive deferred Musc Musculoskeletal: Positive steady gait and ROM normal; negative using an assistive device for ambulation or in a wheelchair Skin Pulmonary Skin Exam: Positive intact; negative rash, lesion, erythema or ulcers Pulses Pulse: Yes pulses normal x4 extremities Extremities Extremities: Yes capillary refill normal, No clubbing, No edema Neuro Neurologic: Yes conversant (very direct, and short answers), Yes no focal neuro deficits, Yes cooperative, Yes understands questions, Yes normal cognition Lymph Lymphatic: No lymphadenopathy, No tenderness, No cervical adenopathy Psych Appearance: Positive grossly normal Mental Status: Positive mental status grossly normal Mood: Positive irritable mood Affect: Positive irritable affect, labile affect and tearful Immunizations Fluad 2017- 65yr up(PF)45 mcg(15 mcgx3)/0.5 mL intramuscular syringe Performing Provider: LULU Wong Administered by: Reshma Aguirre on 05/01/18 10:45 Dose Route Admin Location Lot Number Expiration Date 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 0.5 mL IM Left Deltoid [id number] 11/20/18 [id number] SEQIRUS VIS Given Date VIS Publication Date 05/01/18 02/27/15 Eligibility Eligibility Date Coding Level of Care Code Off vis,est,level 4 Diagnoses SEVEN (obstructive sleep apnea) G47.33 Morbid obesity E66.01 Chronic obstructive pulmonary disease, unspecified COPD type J44.9 COPD type: unspecified COPD Depression with anxiety F41.8 Time Spent (min) 30 05/01/18 1319 <Electronically signed by Brittany LAWSON> Date Brittany LAWSON Cosigner Signature: Date (if applicable) CC: Quique Mims MD MICROALB:SIOBHAN Collected: 04/30/2018 Status: F Source: [place] RATIO,RANDOM UR 8:34 AM [facility] [place] REPOSITORY TYPE CODE TESTS RESULT OUT OF RANGE REFERENCE UNITS LAB L501.1200 NO RANGE EST. mg/dL Normal UR CREAT 84.60 LAB L502.0500 NO RANGE EST. mg/L Normal 63.4 MICROALBUMIN ,UR LAB L502.0600 <30 mg/g CRE mg/g CRE High 74.9 MALB:CREAT Performed By: #### L502.0250, L501.9985, L500.2500, L500.4100 #### [facility] [address] [place], [place], [address] HEMOGLOBIN A1C Collected: 04/30/2018 Status: F Source: [place] 8:34 AM [facility] [place] REPOSITORY TYPE CODE TESTS RESULT OUT OF RANGE REFERENCE UNITS LAB L501.9985 4.2-6.3 % High HGB A1C 6.4 Performed By: #### L502.0250, L501.9985, L500.2500, L500.4100 #### [facility] [address] [place], [place], [address] BASIC METABOLIC Collected: 04/30/2018 Status: F Source: [place] PROFILE (BMP) 8:34 AM [facility] [place] REPOSITORY Order Comment: Comments: Fasting Comments: Fasting TYPE CODE TESTS RESULT OUT OF RANGE REFERENCE UNITS LAB L501.0100 74-106 mg/dL High GLU 122 Result Comment: Fasting Glucose result from 100 to 125 mg/dL suggests IMPAIRED HOMEOSTASIS per A.D.A. criteria. Please note revised GLUCOSE reference range effective 2017. LAB L501.1000 7-18 mg/dL Normal BUN 17 LAB L501.1100 0.55-1.02 mg/dL Normal CREAT,SERUM 0.67 Result Comment: The validity of the calculated GFR AND GFRAA in patients over 70 years has not been determined. Clinical correlation is essential. LAB L501.1110 >60 mL/min Normal EST GFR 93 Result Comment: Non- GFR Calc LAB L501.1115 >60 mL/min Normal EST GFR - AA 112 Result Comment: GFR Calc LAB L501.1300 10-20 RATIO High BUN/CRE 25.4 LAB L501.2200 8.5-10.1 mg/dL CA Normal 8.9 LAB L501.5300 136-145 mmol/L NA Normal 139 LAB L501.5600 3.5-5.1 mmol/L K Normal 4.4 LAB L501.5900 98-107 mmol/L CL Normal 101 LAB L501.6100 21.0-32.0 mmol/L Normal CO2 32.0 LAB L501.6200 5-15 Normal GAP 6 Performed By: #### L502.0250, L501.9985, L500.2500, L500.4100 #### [facility] [address] [place], [address] LIPID PROFILE Collected: 04/30/2018 Status: F Source: [place] 8:34 AM [facility] [place] REPOSITORY Order Comment: Comments: Fasting Comments: Fasting TYPE CODE TESTS RESULT OUT OF RANGE REFERENCE UNITS LAB L501.4900 200 mg/dL High CHOL 287 Result Comment: <200 mg/dL Desirable 200-240 mg/dL Borderline >240 mg/dL High Risk LAB L501.5000 mg/dL High TRIG 310 Result Comment: The drugs N-Acetylcysteine and Metamizole may falsely depress this assay. Serum Triglycerides Reference Interval Normal <150 mg/dL Borderline high 150 - 199 mg/dL High 200 - 499 mg/dL Very High > or = 500 mg/dL LAB L501.6400 mg/dL Low HDL 35 Result Comment: The drugs N-Acetylcysteine and Metamizole may falsely depress this assay. Reference Range HDL <40 mg/dL Low HDL Cholesterol HDL >or= 60 mg/dL High HDL Cholesterol LAB L501.6500 0-130 mg/dL High LDL 190 LAB L501.6600 5-40 mg/dL High VLDL 62 Performed By: #### L502.0250, L501.9985, L500.2500, L500.4100 #### [facility] [address] [place], [address] SURGERY VISIT REPORT Observed: 04/30/2018 Status: F Source: [place] 8:04 AM [facility] [place] REPOSITORY [facility] [address] [place] [address] OFFICE VISIT Date of Service: 04/25/18 MR#: [id number] Acct: [id number] Name: CAYLA CHISHOLM Rep #: [id number] : 1945 Provider: Promise Bond MD Age/Sex: 72/F [place] [facility] Status: Signed Intake Vital Signs04/25/18 Height 5 ft 5 in 04/25/18 Weight: 238 lb Intake Visit Reasons: Schedule Cscope Chief Complaint: follow-up visit Quantitative Manager Required: No Is patient in pain?: No (All over abdominal soreness) Allergies labetalol Allergy (Verified 04/25/18 10:33) Unknown pitavastatin [From Livalo] Allergy (Verified 04/25/18 10:33) Other simvastatin [From Zocor] Allergy (Verified 04/25/18 10:33) Other budesonide [From Symbicort] Adverse Reaction (Verified 04/25/18 10:33) Other formoterol [From Symbicort] Adverse Reaction (Verified 04/25/18 10:33) Other hydrocodone [From Vicodin] Adverse Reaction (Verified 04/25/18 10:33) Other Knmlqpd-Vgd-Wdu Reductase Inhibitor Adverse Reaction (Verified 04/25/18 10:33) Other Medications Multivitamin [Daily Multiple Vitamin] 1 ea PO DAILY 10/11/16 [History Confirmed 04/25/18] Rivaroxaban [Xarelto] 20 mg PO DAILY #30 tab 10/17/16 [Rx Confirmed 04/25/18] Dextran 70/He-Cell [Tears Naturale, Artificial Tears] 2 drp EACH EYE Q2H PRN PRN bottle 05/17/17 [Rx Confirmed 04/25/18] Sotalol Hydrochloride [Betapace (Beta Rufina)] 120 mg PO BID #90 tab 05/17/17 [Rx Confirmed 04/25/18] busPIRone [Buspar] 10 mg PO TID tab 05/17/17 [Rx Confirmed 04/25/18] acetaminophen 500 mg capsule 500 mg PO Q4H PRN 08/10/17 [History Confirmed 04/25/18] albuterol sulfate 2.5 mg/3 mL (0.083 %) solution for nebulization 2.5 mg INHALATION Q4H PRN #180 vial 08/16/17 [Rx Confirmed 04/25/18] potassium chloride 20 mEq oral packet 20 meq PO BID 08/16/17 [History Confirmed 04/25/18] mometasone-formoterol HFA 200 mcg-5 mcg/actuation aerosol inhaler 2 puff INHALATION BID 09/19/17 [History Confirmed 04/25/18] omeprazole 20 mg capsule,delayed release 20 mg PO QDAY #90 cap 09/29/17 [Rx Confirmed 04/25/18] cholecalciferol (vitamin D3) 50,000 unit capsule 50,000 unit PO .Q1-M cap 11/27/17 [History Confirmed 04/25/18] duloxetine 60 mg capsule,delayed release 60 mg PO QDAY #90 cap 01/26/18 [Rx Confirmed 04/25/18] ezetimibe 10 mg tablet 10 mg PO QDAY #90 tab 03/02/18 [Rx Confirmed 04/25/18] hydrochlorothiazide 25 mg tablet 25 mg PO QAM #90 tab 03/02/18 [Rx Confirmed 04/25/18] metformin 500 mg tablet 500 mg PO BID #180 tab 03/02/18 [Rx Confirmed 04/25/18] fenofibrate micronized 67 mg capsule 67 mg PO QPM #90 cap 03/15/18 [Rx Confirmed 04/25/18] amlodipine 10 mg tablet 5 mg PO DAILY #60 tab 03/30/18 [Rx Confirmed 04/25/18] lisinopril 20 mg tablet 20 mg PO QDAY #90 tab 03/30/18 [Rx Confirmed 04/25/18] [facility] Medical History Diastolic congestive heart failure (Chronic) Atherosclerotic heart disease of [place] coronary artery without angina pectoris (Chronic) Long-term use of high-risk medication (Chronic) SOB (shortness of breath) (Chronic) Pulmonary HTN (Chronic) SEVEN (obstructive sleep apnea) (Chronic) Atrial fibrillation with RVR (Chronic) Hypokalemia (Chronic) DM2 (diabetes mellitus, type 2) (Chronic) HTN (hypertension) (Chronic) Anxiety (Chronic) CAD (coronary artery disease) (Chronic) HLD (hyperlipidemia) (Chronic) COPD (chronic obstructive pulmonary disease) (Chronic) PAF (paroxysmal atrial fibrillation) (Chronic) Morbid obesity (Chronic) Spastic colon (Chronic) Junctional rhythm (Chronic) NSTEMI (non-ST elevated myocardial infarction) (Resolved) CAD (coronary artery disease) (Chronic) Acute respiratory failure with hypoxia and hypercarbia (Resolved) Acute exacerbation of chronic obstructive pulmonary disease (COPD) (Chronic) Streptococcal pneumonia (Resolved) Paroxysmal atrial fibrillation with rapid ventricular response (Chronic) Debility (Chronic) Hiatal hernia (Chronic) Panic disorder (Chronic) Sepsis (Resolved) Surgical History history of right wrist surgery (Resolved) History of tonsillectomy and adenoidectomy (Resolved) Family History Mother Cancer leukemia Father Respiratory disease Grandfather Myocardial infarction Grandmother Myocardial infarction Son Diabetes Social History Smoking Status: Never smoker alcohol intake: never substance use type: does not use caffeine: Yes Type: coffee Number of servings: 1 what type of physical activity do you participate in: none seatbelt use: always do you feel safe at home: Yes HPI HPI HPI: CAYLA CHISHOLM, is a 72 F who presents to the office today for colonoscopy for screening. Patient states that she had a colonoscopy about 10 years ago which was negative per the patient denies any blood in the stool. How she does state that she normally has diarrhea daily for many years but currently she states it is worse and she goes more often. However she does state this diarrhea has been related to stress in the past. And she will state that she does have diffuse abdominal pain which is relieved after a bowel movement, and she states that in the past she is also been told she has a spastic colon. She denies any nausea or vomiting. Of note patient is on Xarelto per cardiology. She states in April 2017 she had an RI. ROS General General: Yes fatigue; no weight change or appetite Gastro Gastrointestinal: Yes abdominal pain (Relieved with bowel movement), No nausea or vomiting, No constipation, Yes diarrhea, Yes acid reflux (Controlled with medication) Exam Const General: cooperative, comfortable, no acute distress Resp Effort AND Inspection: normal respiratory effort Cardio Rate: regular rate GI Inspection: non-distended, obesity Palpation: soft, no guarding, nontender Assessment AND Plan Problems 1. Screening for colon cancer Z12.11 Plan I have discussed the above with the patient. I have offered the patient colonoscopy for evaluation. I have explained the risks/benefits of the procedure and described the procedure. I have discussed the risks with the patient, including but not limited to: infection, bleeding, perforation of the GI tract requiring emergency surgery, inability to complete the procedure, injury to any internal organs, complications of anesthesia, etc. - the patient understands and agrees to proceed. I have answered all the patient's questions to the patient's satisfaction and the patient has no further questions. The patient has been given instructions for the colon cleansing preparation. One day Leigh guzmán Dulcolax prep, Promise Bond M.D. Pager: [phone] [facility] [address] [place] [address], [address] [place] [address] Office: [phone] Orders Orders: Plan Detail Follow Up Will schedule colonoscopy Coding Level of Care Code Off vis,new,level 2 Diagnoses Screening for colon cancer Z12.11 04/30/18 0804 <Electronically signed by Promise Bond MD> Date Promise Bond MD [facility] Signature: Date (if applicable) CC: Quique Mims MD; Ezekiel Perez MD INTERNAL MEDICINE Observed: 04/03/2018 Status: F Source: [place] OFFICE VISIT 3:56 PM [facility] [address] [place] [address] [place] [address] OFFICE VISIT Date of Service: 03/30/18 MR#: [id number] Acct: [id number] Name: CAYLA CHISHOLM Rep #: [id number] : 1945 Provider: Quique Mims MD Age/Sex: 72/F [place] [facility] [place] Status: Signed Intake Vital Signs03/30/18 Height 5 ft 3 in Intake Visit Reasons: 2 mo f/u Chief Complaint: follow-up visit Is patient in pain?: No Allergies labetalol Allergy (Verified 01/26/18 07:57) Unknown pitavastatin [From Livalo] Allergy (Verified 01/26/18 07:57) Other simvastatin [From Zocor] Allergy (Verified 01/26/18 07:57) Other budesonide [From Symbicort] Adverse Reaction (Verified 01/26/18 07:57) Other formoterol [From Symbicort] Adverse Reaction (Verified 01/26/18 07:57) Other hydrocodone [From Vicodin] Adverse Reaction (Verified 01/26/18 07:57) Other Jiooant-Sdr-Ukq Reductase Inhibitor Adverse Reaction (Verified 01/26/18 07:57) Other Medications Multivitamin [Daily Multiple Vitamin] 1 ea PO DAILY 10/11/16 [History Confirmed 03/30/18] Rivaroxaban [Xarelto] 20 mg PO DAILY #30 tab 10/17/16 [Rx Confirmed 03/30/18] Dextran 70/He-Cell [Tears Naturale, Artificial Tears] 2 drp EACH EYE Q2H PRN PRN bottle 05/17/17 [Rx Confirmed 03/30/18] Sotalol Hydrochloride [Betapace (Beta Rufina)] 120 mg PO BID #90 tab 05/17/17 [Rx Confirmed 03/30/18] busPIRone [Buspar] 10 mg PO TID tab 05/17/17 [Rx Confirmed 03/30/18] acetaminophen 500 mg capsule 500 mg PO Q4H PRN 08/10/17 [History Confirmed 01/26/18] albuterol sulfate 2.5 mg/3 mL (0.083 %) solution for nebulization 2.5 mg INHALATION Q4H PRN #180 vial 08/16/17 [Rx Confirmed 01/26/18] potassium chloride 20 mEq oral packet 20 meq PO BID 08/16/17 [History Confirmed 03/30/18] mometasone-formoterol HFA 200 mcg-5 mcg/actuation aerosol inhaler 2 puff INHALATION BID 09/19/17 [History Confirmed 03/30/18] omeprazole 20 mg capsule,delayed release 20 mg PO QDAY #90 cap 09/29/17 [Rx Confirmed 03/30/18] cholecalciferol (vitamin D3) 50,000 unit capsule 50,000 unit PO .Q1-M cap 11/27/17 [History Confirmed 03/30/18] duloxetine 60 mg capsule,delayed release 60 mg PO QDAY #90 cap 01/26/18 [Rx Confirmed 03/30/18] ezetimibe 10 mg tablet 10 mg PO QDAY #90 tab 03/02/18 [Rx Confirmed 03/30/18] hydrochlorothiazide 25 mg tablet 25 mg PO QAM #90 tab 03/02/18 [Rx Confirmed 03/30/18] metformin 500 mg tablet 500 mg PO BID #180 tab 03/02/18 [Rx Confirmed 03/30/18] fenofibrate micronized 67 mg capsule 67 mg PO QPM #90 cap 03/15/18 [Rx Confirmed 03/30/18] amlodipine 10 mg tablet 5 mg PO DAILY #60 tab 03/30/18 [Rx Confirmed 03/30/18] lisinopril 20 mg tablet 20 mg PO QDAY #90 tab 03/30/18 [Rx Confirmed 03/30/18] [facility] Medical History Diastolic congestive heart failure (Chronic) Atherosclerotic heart disease of [place] coronary artery without angina pectoris (Chronic) Long-term use of high-risk medication (Chronic) SOB (shortness of breath) (Chronic) Pulmonary HTN (Chronic) SEVEN (obstructive sleep apnea) (Chronic) Atrial fibrillation with RVR (Chronic) Hypokalemia (Chronic) DM2 (diabetes mellitus, type 2) (Chronic) HTN (hypertension) (Chronic) Anxiety (Chronic) CAD (coronary artery disease) (Chronic) HLD (hyperlipidemia) (Chronic) COPD (chronic obstructive pulmonary disease) (Chronic) PAF (paroxysmal atrial fibrillation) (Chronic) Morbid obesity (Chronic) Spastic colon (Chronic) Junctional rhythm (Chronic) NSTEMI (non-ST elevated myocardial infarction) (Resolved) CAD (coronary artery disease) (Chronic) Acute respiratory failure with hypoxia and hypercarbia (Resolved) Acute exacerbation of chronic obstructive pulmonary disease (COPD) (Chronic) Streptococcal pneumonia (Resolved) Paroxysmal atrial fibrillation with rapid ventricular response (Chronic) Debility (Chronic) Hiatal hernia (Chronic) Panic disorder (Chronic) Sepsis (Resolved) Surgical History history of right wrist surgery (Resolved) History of tonsillectomy and adenoidectomy (Resolved) Family History Mother Cancer leukemia Father Respiratory disease Grandfather Myocardial infarction Grandmother Myocardial infarction Son Diabetes Social History Smoking Status: Never smoker alcohol intake: never substance use type: does not use caffeine: Yes Type: coffee Number of servings: 1 what type of physical activity do you participate in: none seatbelt use: always do you feel safe at home: Yes HPI HPI Chief Complaint: follow-up visit Details: CAYLA CHISHOLM, is a 72 F who presents to the office today for follow-up of her chronic medical conditions. She has a history of urinary incontinence which is chronic however she has noted worsening symptoms. She has had no interventions in the past. Patient has been stable however she has had recent life stresses with most recent being the loss of her dog which she is finding her to cope with. She denies any suicidal or homicidal ideations or attempts. Blood pressure still not optimally controlled. ROS Const Constitutional: No body ache, chills, weakness, fever(s) or change in appetite Eyes Eyes: No blurry vision, change in vision, eye pain or discharge ENT ENT: No abnormal hearing, ear pressure, tinnitus, dizziness/vertigo, balance problems or neck pain Resp Respiratory: No cough, shortness of breath or wheezing Cardio Cardiology: No chest pain at rest, shortness of breath, dyspnea on exertion or palpitations Gastro GI: No abdominal pain or bloating Genitourinary-Female: No burning urination, painful urination, urinary incontinence, urinary frequency, abnormal vaginal bleeding, pelvic pain or other Musc Musculoskeletal: No abnormal walking, joint pain, back pain, limited range of motion, neck pain, numbness or tingling Skin Skin: No redness, dry skin, itching, lesions, wounds or rash Neuro Neurology: Positive for dizziness; no weakness, abnormal hearing, abnormal walking, numbness, tingling or memory loss Psych Psychiatric: No change in appetite, No anxiety, Positive for depression (Recently lost her dog and some family), No memory loss, No Thoughts of harming yourself/Others Aller/Imm Allergy/Immunologic: No wheezing or itchy eyes Ayaz/Lymp Hematologic/Lymphatic: No easy bleeding, easy bruising or enlarged lymph nodes Exam Const General: cooperative, no acute distress Orientation: alert, oriented x3, awake HENMT Head: atraumatic, normocephalic Ears: hearing grossly normal bilaterally Resp Effort AND Inspection: normal respiratory effort, able to speak in complete sentences Auscultation: Bilateral: Diminished Lung Sounds Cardio Rate: regular rate Rhythm: regular rhythm Heart Sounds: S1 normal, S2 normal GI Palpation: soft, no hepatosplenomegaly Neuro General: alert, awake, oriented x3, moves all extremities, CN's II-XI intact bilaterally Extrem General: no clubbing, cyanosis or edema Psych Appearance: grossly normal Mental Status: mental status grossly normal Affect: normal affect Assessment AND Plan 1. Urinary incontinence R32 Plan Worsening. Referred to Dr. Arreaga. Follow-up at next visit. Orders Referrals: 2. Depression with anxiety F41.8 Plan Stable for the most part however has had some recent stress use. We will make no changes to her medications at this time however if there is continued difficulty coping, will adjust. Follow-up at next visit. 3. Type 2 diabetes mellitus with complication, without long- term current use of insulin E11.9 Plan Blood sugar log shows pretty decent control. A1c ordered. Continue current medication and lifestyle modifications. Orders Orders: 4. Essential hypertension I10 Plan Not optimally controlled. Will increase lisinopril to 20 mg daily. Continue other lifestyle and dietary modifications. Follow-up at next visit Orders Orders: 5. Pure hypercholesterolemia E78.00 Plan Lipid profile ordered. Continue current medication and lifestyle modifications. 6. Health care maintenance Z00.00 Plan Mammogram, bone density and referral to general surgery for screening colonoscopy ordered. Plan Detail Other Orders Orders: Referrals: Other Medications Changed: Refilled: Follow Up 2 Months Coding Level of Care Code Off vis,est,level 4 Diagnoses Urinary incontinence R32 Depression with anxiety F41.8 Type 2 diabetes mellitus with complication, without long-term current use of insulin E11.9 Essential hypertension I10 Hypertension type: essential hypertension Pure hypercholesterolemia E78.00 Hyperlipidemia type: pure hypercholesterolemia [facility] Z00.00 04/03/18 [id number] <Electronically signed by Quique Mims MD> Date Quique Torreignestela Signature: Date (if applicable) CC: INTERNAL MEDICINE Observed: 01/26/2018 Status: F Source: [place] OFFICE VISIT 1:06 PM [facility] [address] [place] [address] [place] [address] OFFICE VISIT Date of Service: 01/26/18 MR#: [id number] Acct: [id number] Name: CAYLA CHISHOLM Rep #: [id number] : 1945 Provider: Quique Mims MD Age/Sex: 72/F [place] [facility] [place] Status: Signed Intake Vital Signs01/26/18 Height 5 ft 3 in 01/26/18 Weight: 242 lb 01/26/18 Body Mass Index (BMI) 42.8 01/26/18 Blood Pressure 143/81 Intake Visit Reasons: 5 WK FU Chief Complaint: follow-up visit since Echo Is patient in pain?: No Allergies labetalol Allergy (Verified 01/26/18 07:57) Unknown pitavastatin [From Livalo] Allergy (Verified 01/26/18 07:57) Other simvastatin [From Zocor] Allergy (Verified 01/26/18 07:57) Other budesonide [From Symbicort] Adverse Reaction (Verified 01/26/18 07:57) Other formoterol [From Symbicort] Adverse Reaction (Verified 01/26/18 07:57) Other hydrocodone [From Vicodin] Adverse Reaction (Verified 01/26/18 07:57) Other Nafdjqy-Bwg-Bla Reductase Inhibitor Adverse Reaction (Verified 01/26/18 07:57) Other Medications Multivitamin [Daily Multiple Vitamin] 1 ea PO DAILY 10/11/16 [History Confirmed 01/26/18] Rivaroxaban [Xarelto] 20 mg PO DAILY #30 tab 10/17/16 [Rx Confirmed 01/26/18] Dextran 70/He-Cell [Tears Naturale, Artificial Tears] 2 drp EACH EYE Q2H PRN PRN bottle 05/17/17 [Rx Confirmed 01/26/18] Sotalol Hydrochloride [Betapace (Beta Rufina)] 120 mg PO BID #90 tab 05/17/17 [Rx Confirmed 01/26/18] busPIRone [Buspar] 10 mg PO TID tab 05/17/17 [Rx Confirmed 01/26/18] acetaminophen 500 mg capsule 500 mg PO Q4H PRN 08/10/17 [History Confirmed 01/26/18] albuterol sulfate 2.5 mg/3 mL (0.083 %) solution for nebulization 2.5 mg INHALATION Q4H PRN #180 vial 08/16/17 [Rx Confirmed 01/26/18] potassium chloride 20 mEq oral packet 20 meq PO BID 08/16/17 [History Confirmed 01/26/18] mometasone-formoterol HFA 200 mcg-5 mcg/actuation aerosol inhaler 2 puff INHALATION BID 09/19/17 [History Confirmed 01/26/18] omeprazole 20 mg capsule,delayed release 20 mg PO QDAY #90 cap 09/29/17 [Rx Confirmed 01/26/18] cholecalciferol (vitamin D3) 50,000 unit capsule 50,000 unit PO .Q1-M cap 11/27/17 [History Confirmed 01/26/18] metformin 500 mg tablet 500 mg PO BID #180 tab 12/11/17 [Rx Confirmed 01/26/18] fenofibrate micronized 67 mg capsule 67 mg PO QPM #90 cap 12/12/17 [Rx Confirmed 01/26/18] amlodipine 10 mg tablet 5 mg PO DAILY #30 tab 12/20/17 [Rx Confirmed 01/26/18] lisinopril 10 mg tablet 15 mg PO QDAY #45 tab 01/04/18 [Rx Confirmed 01/26/18] ezetimibe 10 mg tablet 10 mg PO QDAY #30 tab 01/10/18 [Rx Confirmed 01/26/18] hydrochlorothiazide 25 mg tablet 25 mg PO QAM #30 tab 01/10/18 [Rx Confirmed 01/26/18] duloxetine 60 mg capsule,delayed release 60 mg PO QDAY #90 cap 01/26/18 [Rx Confirmed 01/26/18] [facility] Medical History Diastolic congestive heart failure (Chronic) Atherosclerotic heart disease of [place] coronary artery without angina pectoris (Chronic) Long-term use of high-risk medication (Chronic) SOB (shortness of breath) (Chronic) Pulmonary HTN (Chronic) SEVEN (obstructive sleep apnea) (Chronic) Atrial fibrillation with RVR (Chronic) Hypokalemia (Chronic) DM2 (diabetes mellitus, type 2) (Chronic) HTN (hypertension) (Chronic) Anxiety (Chronic) CAD (coronary artery disease) (Chronic) HLD (hyperlipidemia) (Chronic) COPD (chronic obstructive pulmonary disease) (Chronic) PAF (paroxysmal atrial fibrillation) (Chronic) Morbid obesity (Chronic) Spastic colon (Chronic) Junctional rhythm (Chronic) NSTEMI (non-ST elevated myocardial infarction) (Resolved) CAD (coronary artery disease) (Chronic) Acute respiratory failure with hypoxia and hypercarbia (Resolved) Acute exacerbation of chronic obstructive pulmonary disease (COPD) (Chronic) Streptococcal pneumonia (Resolved) Paroxysmal atrial fibrillation with rapid ventricular response (Chronic) Debility (Chronic) Hiatal hernia (Chronic) Panic disorder (Chronic) Sepsis (Resolved) Surgical History history of right wrist surgery (Resolved) History of tonsillectomy and adenoidectomy (Resolved) Family History Mother Cancer leukemia Father Respiratory disease Grandfather Myocardial infarction Grandmother Myocardial infarction Son Diabetes Social History Smoking Status: Never smoker alcohol intake: never substance use type: does not use caffeine: Yes Type: coffee Number of servings: 1 what type of physical activity do you participate in: none seatbelt use: always do you feel safe at home: Yes HPI HPI Chief Complaint: follow-up visit since Echo Details: CAYLA CHISHOLM, is a 72yo F who presents to the office today for follow-up of her blood pressure and depression. She has no acute complaints at this time. Recently had an echo due to concerns about worsening shortness of breath. Shortness of breath is said to have been stable and has had no worsening. Echo done without any new changes. ROS Const Constitutional: No chills, fatigue, fever(s), frequent falls, malaise, weakness, sleep problems or change in appetite Eyes Eyes: No blurry vision, change in vision, double vision, discharge or visual disturbances ENT ENT: No abnormal hearing, ear pain, ear pressure, tinnitus or dizziness/vertigo Resp Respiratory: No cough, shortness of breath or wheezing Cardio Cardiology: No chest pain at rest, chest pain with exertion, shortness of breath, dyspnea on exertion, generalized swelling, irregular heart rhythm, lightheadedness, orthopnea, fast heart rate or palpitations Gastro GI: No change in bowel habits, constipation, diarrhea, nausea/dyspepsia or vomiting Genitourinary-Female: No difficulty urinating, burning urination, painful urination, urinary incontinence, urinary frequency, urinary urgency, urinary hesitancy, urinary retention, Frequent nighttime urination/ nocturia, sexual problems, genital lesions, abnormal vaginal bleeding, pelvic pain, vaginal dryness, vaginal odor or Vaginal Itching Musc Musculoskeletal: No joint pain, back pain, joint swelling, limited range of motion, numbness or tingling Skin Skin: No change in skin color, itching, rash or wounds Breast Breast: No breast lump or breast pain Neuro Neurology: No frequent falls, weakness, abnormal hearing, numbness, tingling, unsteady gait/balance, dizziness, loss of vision, memory loss or visual disturbances Psych Psychiatric: No memory loss, No anxiety, No change in appetite, No depression, No Thoughts of harming yourself/Others Endo Endocrine: No fatigue, heat intolerance, increased thirst/drinking, increased hunger or increased urination Aller/Imm Allergy/Immunologic: No wheezing, itchy eyes or seasonal allergy symptoms Ayaz/Lymp Hematologic/Lymphatic: No easy bleeding, easy bruising or enlarged lymph nodes Exam Const General: cooperative, no acute distress Orientation: alert, oriented x3, awake [facility] Head: atraumatic, normocephalic Ears: hearing grossly normal bilaterally Resp Effort AND Inspection: normal respiratory effort, able to speak in complete sentences Auscultation: Bilateral: Diminished Lung Sounds Cardio Rate: regular rate Rhythm: regular rhythm Heart Sounds: S1 normal, S2 normal GI Palpation: soft, no hepatosplenomegaly Neuro General: alert, awake, oriented x3, moves all extremities, CN's II-XI intact bilaterally Extrem General: no clubbing, cyanosis or edema Psych Appearance: grossly normal Mental Status: mental status grossly normal Affect: normal affect Assessment AND Plan 1. Depression with anxiety F41.8 Plan Achieving better control. Increase Cymbalta to 60 mg daily. Follow-up in 2 months. 2. Essential hypertension I10 Plan Stable. Possibly Increase lisinopril to 20 mg at next visit if not at goal. Continue lifestyle modifications. 3. SOB (shortness of breath) R06.02 Plan No worsening since her last visit. Echo on 12/19/2017 with mild increase in pulmonary pressures from 42 in April to 45mmHg. Follow-up with cardio and Pulmo. This note was generated with [employer] software. It may contain incorrect words, spelling, and punctuation that were not noted in checking the note before signing. Plan Detail Other Medications New: Discontinued: Follow Up 2 Months Coding Level of Care Code Off vis,est,level 3 Diagnoses Depression with anxiety F41.8 Essential hypertension I10 Hypertension type: essential hypertension SOB (shortness of breath) R06.02 01/26/18 1306 <Electronically signed by Quique Mims MD> Date Quique Mims MD Cosigner Signature: Date (if applicable) CC: ECHOCARDIOGRAM COMPLETE Observed: 12/19/2017 Status: F Source: [place] 1:14 PM [facility] Cardiovascular Services [address] [place] [id number] Echo Complete 12/19/17 0856 MR#: [id number] Acct: [id number] Name: CAYLA CHISHOLM Rep #: [id number] : 1945 72 From: Ezekiel Perez MD Attending Dr: Quique Mims MD Status: REG CLI Ordering Dr: Quique Mims MD Date: 12/19/17 Location: [facility] Sex: F C Admitted: Reason For Study: Dyspnea/SOB Procedure This was a 2D Doppler, Color Flow transthoracic echocardiogram. The exam was of adequate technical quality. Exam performed in department. Left Ventricle Normal LV size. Moderate concentric left ventricular hypertrophy. Left ventricular systolic function is normal. The estimated ejection fraction is 65 %. Transmitral diastolic flow velocities suggest moderate (stage 2) diastolic dysfunction (pseudonormal pattern). No regional wall motion abnormalities noted. Right Ventricle Normal RV size. Normal systolic function. Atria The left atrium is severely enlarged. Normal right atrium. No doppler evidence for ASD. Mitral Valve There is moderate to severe mitral annular calcification. Extension of the mitral annular calcification onto the posterior mitral valve leaflet. Mild (1+) mitral valve insufficiency. Tricuspid Valve Normal tricuspid valve. Mild tricuspid valve insufficiency. Right ventricular systolic pressure estimated to be 45 mmHg. Aortic Valve Trisinus/trileaflet aortic valve. Normal aortic valve. Pulmonic Valve The pulmonic valve is not well visualized. Trivial pulmonic valve insufficiency. Great Vessels Normal sized aortic root. Calcified aortic root. Pericardium/Pleural No pericardial effusion. MMode/2D Measurements AND Calculations LVIDd: 5.2 cm IVSd: 1.8 cm Ao root diam: 2.7 cm LVIDs: 3.5 cm LVPWd: 1.3 cm LA dimension: 4.7 cm RVDd: 3.6 cm FS: 32.1 % LAV(MOD-bp): 88.2 ml EDV(MOD-sp4): 75.7 ml SV(MOD-sp4): 48.0 ml LAV(MOD-bp) Indexed: 40.8 ml/m2 ESV(MOD-sp4): 27.7 ml LAV(MOD-sp2): 72.3 ml EF(MOD-sp4): 63.4 % LAV(MOD-sp4): 103.0 ml LA A4 area: 27.3 cm2 RA A4 area: 12.5 cm2 Doppler Measurements AND Calculations MV E max mikel: 88.8 cm/sec Lat Peak E' Mikel: 13.6 cm/sec Med Peak E' Mikel: 5.2 cm/sec MV A max mikel: 75.5 cm/sec E/E' lat: 6.5 E/E' med: 17.2 MV E/A: 1.2 Ao V2 max: 180.4 cm/sec LV V1 max: 107.5 cm/sec PA V2 max: 82.2 cm/sec Ao max P.0 mmHg LV V1 max P.6 mmHg Ao V2 mean: 126.8 cm/sec Ao mean P.9 mmHg Ao V2 VTI: 41.7 cm TR max mikel: 305.8 cm/sec TR max P.4 mmHg Interpretation Summary Left ventricular systolic function is normal. The estimated ejection fraction is 65 %. Moderate concentric left ventricular hypertrophy. The left atrium is severely enlarged. There is moderate to severe mitral annular calcification. Extension of the mitral annular calcification onto the posterior mitral valve leaflet. Mild (1+) mitral valve insufficiency. Mild tricuspid valve insufficiency. Trivial pulmonic valve insufficiency. Calcified aortic root. Right ventricular systolic pressure estimated to be 45 mmHg. Transmitral diastolic flow velocities suggest diastolic dysfunction (pseudonormal pattern). Ordering Physician: Quique Mims Referring Physician: Quique Mims Performed By: Tamiko Joy, TAURUS, RVT 12/19/17 1314 Date Ezekiel Perez MD CC: Quique Mims MD Date Dictated: 12/19/17 0856 Date Transcribed: 12/19/171313 Collateral Clerk: Signed INTERNAL MEDICINE Observed: 12/15/2017 Status: F Source: [place] OFFICE VISIT 1:43 PM [facility] [address] [place] [address] OFFICE VISIT Date of Service: 12/11/17 MR#: [id number] Acct: [id number] Name: CAYLA CHISHOLM Rep #: [id number] : 1945 Provider: Quique Mims MD Age/Sex: 72/F Location[place] [facility] Status: Signed Intake Vital Signs12/11/17 Height 5 ft 3 in Intake Visit Reasons: 2 M FU Chief Complaint: follow-up visit Is patient in pain?: No Allergies labetalol Allergy (Verified 10/30/17 11:02) Unknown pitavastatin [From Livalo] Allergy (Verified 10/30/17 11:02) Other simvastatin [From Zocor] Allergy (Verified 10/30/17 11:02) Other budesonide [From Symbicort] Adverse Reaction (Verified 10/30/17 11:02) Other formoterol [From Symbicort] Adverse Reaction (Verified 10/30/17 11:02) Other hydrocodone [From Vicodin] Adverse Reaction (Verified 10/30/17 11:02) Other Hhkzbpu-Ldd-Aau Reductase Inhibitor Adverse Reaction (Verified 10/30/17 11:02) Other Medications Multivitamin [Daily Multiple Vitamin] 1 ea PO DAILY 10/11/16 [History Confirmed 12/11/17] Rivaroxaban [Xarelto] 20 mg PO DAILY #30 tab 10/17/16 [Rx Confirmed 12/11/17] Dextran 70/He-Cell [Tears Naturale, Artificial Tears] 2 drp EACH EYE Q2H PRN PRN bottle 05/17/17 [Rx Confirmed 12/11/17] Sotalol Hydrochloride [Betapace (Beta Rufina)] 120 mg PO BID #90 tab 05/17/17 [Rx Confirmed 12/11/17] busPIRone [Buspar] 10 mg PO TID tab 05/17/17 [Rx Confirmed 12/11/17] acetaminophen 500 mg capsule 500 mg PO Q4H PRN 08/10/17 [History Confirmed 12/11/17] albuterol sulfate 2.5 mg/3 mL (0.083 %) solution for nebulization 2.5 mg INHALATION Q4H PRN #180 vial 08/16/17 [Rx Confirmed 12/11/17] potassium chloride 20 mEq oral packet 20 meq PO BID 08/16/17 [History Confirmed 12/11/17] mometasone-formoterol HFA 200 mcg-5 mcg/actuation aerosol inhaler 2 puff INHALATION BID 09/19/17 [History Confirmed 12/11/17] amlodipine 10 mg tablet 5 mg PO DAILY #30 tab 09/26/17 [Rx Confirmed 12/11/17] ezetimibe 10 mg tablet 10 mg PO QDAY #30 tab 09/28/17 [Rx Confirmed 12/11/17] omeprazole 20 mg capsule,delayed release 20 mg PO QDAY #90 cap 09/29/17 [Rx Confirmed 12/11/17] lisinopril 10 mg tablet 10 mg PO QDAY #60 tab 10/27/17 [Rx Confirmed 12/11/17] alprazolam 0.5 mg tablet 0.5 mg PO BID PRN #45 tab 11/14/17 [Rx Confirmed 12/11/17] hydrochlorothiazide 25 mg tablet 25 mg PO QAM #30 tab 11/23/17 [Rx Confirmed 12/11/17] cholecalciferol (vitamin D3) 50,000 unit capsule 50,000 unit PO .Q1-M cap 11/27/17 [History Confirmed 12/11/17] duloxetine 30 mg capsule,delayed release 30 mg PO QDAY #60 cap 12/11/17 [Rx Confirmed 12/11/17] loperamide 2 mg capsule 2 mg PO Q1-4H PRN 12/11/17 [History Confirmed 12/11/17] metformin 500 mg tablet 500 mg PO BID #180 tab 12/11/17 [Rx Confirmed 12/11/17] fenofibrate micronized 67 mg capsule 67 mg PO QPM #90 cap 12/12/17 [Rx] Post menopausal: Yes PFSH Medical History Diastolic congestive heart failure (Chronic) Atherosclerotic heart disease of [place] coronary artery without angina pectoris (Chronic) Long-term use of high-risk medication (Chronic) SOB (shortness of breath) (Chronic) Pulmonary HTN (Chronic) SEVEN (obstructive sleep apnea) (Chronic) Atrial fibrillation with RVR (Chronic) Hypokalemia (Chronic) DM2 (diabetes mellitus, type 2) (Chronic) HTN (hypertension) (Chronic) Anxiety (Chronic) CAD (coronary artery disease) (Chronic) HLD (hyperlipidemia) (Chronic) COPD (chronic obstructive pulmonary disease) (Chronic) PAF (paroxysmal atrial fibrillation) (Chronic) Morbid obesity (Chronic) Spastic colon (Chronic) Junctional rhythm (Chronic) NSTEMI (non-ST elevated myocardial infarction) (Resolved) CAD (coronary artery disease) (Chronic) Acute respiratory failure with hypoxia and hypercarbia (Resolved) Acute exacerbation of chronic obstructive pulmonary disease (COPD) (Chronic) Streptococcal pneumonia (Resolved) Paroxysmal atrial fibrillation with rapid ventricular response (Chronic) Debility (Chronic) Hiatal hernia (Chronic) Panic disorder (Chronic) Sepsis (Resolved) Surgical History history of right wrist surgery (Resolved) History of tonsillectomy and adenoidectomy (Resolved) Family History Mother Cancer leukemia Father Respiratory disease Grandfather Myocardial infarction Grandmother Myocardial infarction Son Diabetes Social History Smoking Status: Never smoker alcohol intake: never substance use type: does not use caffeine: Yes Type: coffee Number of servings: 1 what type of physical activity do you participate in: none seatbelt use: always do you feel safe at home: Yes HPI HPI Chief Complaint: follow-up visit Details: CAYLA CHISHOLM, is a 72yo F who presents to the office today for follow up. She was seen about 2 weeks ago and managed for COPD exacerbation. Symptoms are now said to have improved. She however is concerned about progressively worsening SOB and has noted increasing difficulty carrying out her daily activities. She also reports persisting/worsening depression and anxiety. She is currently on Paroxetine at 40mg daily however this has not provided much benefit. ROS Const Constitutional: Positive for fatigue; no weight change, body ache, chills, sleep problems, fever(s), change in appetite, snoring, weakness, frequent falls, headache(s) or excessive sweating Eyes Eyes: No change in vision, eye pain, light sensitivity or blurry vision ENT ENT: No headache(s), abnormal hearing, ear pain, tinnitus, nasal congestion, sore throat or neck pain Resp Respiratory: Positive for shortness of breath (increased with activity); no snoring, cough or wheezing Cardio Cardiology: No excessive sweating, chest pain at rest, chest pain with exertion, shortness of breath, dyspnea on exertion, palpitations, orthopnea or lightheadedness Gastro GI: No abdominal pain, change in bowel habits, constipation, diarrhea, vomiting, nausea/dyspepsia or cramping Genitourinary-Female: No burning urination, painful urination, urinary incontinence, urinary frequency, abnormal vaginal bleeding, pelvic pain or other Musc Musculoskeletal: No neck pain, abnormal walking, joint pain, back pain, limited range of motion, numbness or tingling Skin Skin: No redness, dry skin, itching, lesions, wounds or rash Neuro Neurology: No weakness, frequent falls, headache(s), abnormal hearing, abnormal walking, numbness, tingling, abnormal speech, dizziness or memory loss Psych Psychiatric: No change in appetite, No memory loss, Positive for anxiety, Positive for depression (increased, doesn't feel that medication is as effective. ), No Thoughts of harming yourself/Others Endo Endocrine: Positive for fatigue; no excessive sweating, cold intolerance, increased thirst/drinking, heat intolerance, flushing or increased hunger Aller/Imm Allergy/Immunologic: No wheezing, itchy eyes, hives or seasonal allergy symptoms Ayaz/Lymp Hematologic/Lymphatic: No easy bleeding, easy bruising or enlarged lymph nodes Exam Const General: cooperative, no acute distress Orientation: alert, oriented x3, awake HENMT Head: atraumatic, normocephalic Ears: hearing grossly normal bilaterally Resp Effort AND Inspection: normal respiratory effort, able to speak in complete sentences Auscultation: Bilateral: Diminished Lung Sounds Cardio Rate: regular rate Rhythm: regular rhythm Heart Sounds: S1 normal, S2 normal GI Palpation: soft, no hepatosplenomegaly Neuro General: alert, awake, oriented x3, moves all extremities, CN's II-XI intact bilaterally Extrem General: no clubbing, cyanosis or edema Psych Appearance: grossly normal Mental Status: mental status grossly normal Affect: normal affect Assessment AND Plan 1. SOB (shortness of breath) R06.02 Plan Worsening. More with activity. Last ECHO in 09/2016 with RSVP of 42mmHg. Symptoms maybe due to pulmonary hypertension ( ? worsening ). ECHO ordered. Continue follow up with cardiology and pulmo as scheduled. Will follow. 2. Depression with anxiety F41.8 Plan Chronic and not properly controlled per patient. Reduce Paroxetine to 20mg QHS. Start Cymbalta at the end of the 1 week and Dc Paroxetine. Follow up in 1 month. 3. Essential hypertension I10 Plan Stable. Continue Lisinopril at 15mg daily. Life style modifications discussed. Follow up at next visit. Plan Detail Other Orders Orders: Other Medications New: Refilled: Discontinued: amoxicillin-pot clavulanate 875-125 mg Discontinu1 tab PO Q12H Kirsten White ed Reason: Pt no longer taking prednisone Discontinued Reason: Pt no longer tak40 mg (2 x 20 mg) PO QDAY Kirsten White ing Follow Up 5 Weeks Coding Level of Care Code Off vis,est,level 3 Diagnoses SOB (shortness of breath) R06.02 Depression with anxiety F41.8 Essential hypertension I10 Hypertension type: essential hypertension 12/15/17 1343 <Electronically signed by Quique Mims MD> Date Quique Mims MD Cosignestela Signature: Date (if applicable) CC: LIPID PROFILE Collected: 12/11/2017 Status: F Source: [place] 7:48 AM [facility] REPOSITORY TYPE CODE TESTS RESULT OUT OF RANGE REFERENCE UNITS LAB L501.4900 200 mg/dL High CHOL 283 Result Comment: <200 mg/dL Desirable 200-240 mg/dL Borderline >240 mg/dL High Risk LAB L501.5000 mg/dL High TRIG 294 Result Comment: The drugs N-Acetylcysteine and Metamizole may falsely depress this assay. Serum Triglycerides Reference Interval Normal <150 mg/dL Borderline high 150 - 199 mg/dL High 200 - 499 mg/dL Very High > or = 500 mg/dL LAB L501.6400 mg/dL Low HDL 37 Result Comment: The drugs N-Acetylcysteine and Metamizole may falsely depress this assay. Reference Range HDL <40 mg/dL Low HDL Cholesterol HDL >or= 60 mg/dL High HDL Cholesterol LAB L501.6500 0-130 mg/dL High LDL 187 LAB L501.6600 5-40 mg/dL High VLDL 59 Performed By: #### L500.4100 #### [facility] [address] [place], [address] INTERNAL MEDICINE Observed: 11/27/2017 Status: F Source: [place] OFFICE VISIT 1:29 PM [facility] REPOSITORY [facility] [address] [place] [address] [place] [address] OFFICE VISIT Date of Service: 11/27/17 MR#: [id number] Acct: [id number] Name: CAYLA CHISHOLM Gene Rep #: [id number] : 1945 Provider: Quique Mims MD Age/Sex: 72/F Location: [facility] Status: Signed Intake Vital Signs11/27/17 Height 5 ft 3 in 11/27/17 Weight: 247 lb 05/07/18 Body Mass Index (BMI) 43.7 11/27/17 Blood Pressure 143/74 11/27/17 Blood Pressure Location Lt brachial Intake Visit Reasons: Cough Chief Complaint: cough Is patient in pain?: Yes (upper abdomen and chest ) Pain scale (1-10): 3 Allergies labetalol Allergy (Verified 10/30/17 11:02) Unknown pitavastatin [From Livalo] Allergy (Verified 10/30/17 11:02) Other simvastatin [From Zocor] Allergy (Verified 10/30/17 11:02) Other budesonide [From Symbicort] Adverse Reaction (Verified 10/30/17 11:02) Other formoterol [From Symbicort] Adverse Reaction (Verified 10/30/17 11:02) Other hydrocodone [From Vicodin] Adverse Reaction (Verified 10/30/17 11:02) Other Zhttlow-Pzs-Myj Reductase Inhibitor Adverse Reaction (Verified 10/30/17 11:02) Other Medications Multivitamin [Daily Multiple Vitamin] 1 ea PO DAILY 10/11/16 [History Confirmed 10/30/17] Rivaroxaban [Xarelto] 20 mg PO DAILY #30 tab 10/17/16 [Rx Confirmed 10/30/17] Paroxetine HCl [Paxil] 40 mg PO QHS 05/01/17 [History Confirmed 10/30/17] Dextran 70/He-Cell [Tears Naturale, Artificial Tears] 2 drp EACH EYE Q2H PRN PRN bottle 05/17/17 [Rx Confirmed 10/30/17] Sotalol Hydrochloride [Betapace (Beta Rufina)] 120 mg PO BID #90 tab 05/17/17 [Rx Confirmed 10/30/17] busPIRone [Buspar] 10 mg PO TID tab 05/17/17 [Rx Confirmed 10/30/17] acetaminophen 500 mg capsule 500 mg PO Q4H PRN 08/10/17 [History Confirmed 10/30/17] albuterol sulfate 2.5 mg/3 mL (0.083 %) solution for nebulization 2.5 mg INHALATION Q4H PRN #180 vial 08/16/17 [Rx Confirmed 10/30/17] potassium chloride 20 mEq oral packet 20 meq PO BID 08/16/17 [History Confirmed 10/30/17] mometasone-formoterol HFA 200 mcg-5 mcg/actuation aerosol inhaler 2 puff INHALATION BID 09/19/17 [History Confirmed 10/30/17] amlodipine 10 mg tablet 5 mg PO DAILY #30 tab 09/26/17 [Rx Confirmed 10/30/17] ezetimibe 10 mg tablet 10 mg PO QDAY #30 tab 09/28/17 [Rx Confirmed 10/30/17] fenofibrate micronized 67 mg capsule 67 mg PO QPM #30 cap 09/28/17 [Rx Confirmed 10/30/17] omeprazole 20 mg capsule,delayed release 20 mg PO QDAY #90 cap 09/29/17 [Rx Confirmed 10/30/17] metformin 500 mg tablet 500 mg PO BID #60 tab 10/11/17 [Rx Confirmed 10/30/17] lisinopril 10 mg tablet 10 mg PO QDAY #60 tab 10/27/17 [Rx Confirmed 10/30/17] alprazolam 0.5 mg tablet 0.5 mg PO BID PRN #45 tab 11/14/17 [Rx] hydrochlorothiazide 25 mg tablet 25 mg PO QAM #30 tab 11/23/17 [Rx] amoxicillin 875 mg-potassium clavulanate 125 mg tablet 1 tab PO Q12H #20 tab 11/27/17 [Rx Confirmed 11/27/17] benzonatate 100 mg capsule 100 mg PO TID PRN #60 cap 11/27/17 [Rx Confirmed 11/27/17] cholecalciferol (vitamin D3) 50,000 unit capsule 50,000 unit PO .Q1-M cap 11/27/17 [History Confirmed 11/27/17] prednisone 20 mg tablet 40 mg PO QDAY #10 tab 11/27/17 [Rx Confirmed 11/27/17] PFSH Medical History Diastolic congestive heart failure (Chronic) Atherosclerotic heart disease of [place] coronary artery without angina pectoris (Chronic) Long-term use of high-risk medication (Chronic) SOB (shortness of breath) (Chronic) Pulmonary HTN (Chronic) SEVEN (obstructive sleep apnea) (Chronic) Atrial fibrillation with RVR (Chronic) Hypokalemia (Chronic) DM2 (diabetes mellitus, type 2) (Chronic) HTN (hypertension) (Chronic) Anxiety (Chronic) CAD (coronary artery disease) (Chronic) HLD (hyperlipidemia) (Chronic) COPD (chronic obstructive pulmonary disease) (Chronic) PAF (paroxysmal atrial fibrillation) (Chronic) Morbid obesity (Chronic) Spastic colon (Chronic) Junctional rhythm (Chronic) NSTEMI (non-ST elevated myocardial infarction) (Resolved) CAD (coronary artery disease) (Chronic) Acute respiratory failure with hypoxia and hypercarbia (Resolved) Acute exacerbation of chronic obstructive pulmonary disease (COPD) (Chronic) Streptococcal pneumonia (Resolved) Paroxysmal atrial fibrillation with rapid ventricular response (Chronic) Debility (Chronic) Hiatal hernia (Chronic) Panic disorder (Chronic) Sepsis (Resolved) Surgical History history of right wrist surgery (Resolved) History of tonsillectomy and adenoidectomy (Resolved) Family History Mother Cancer leukemia Father Respiratory disease Grandfather Myocardial infarction Grandmother Myocardial infarction Son Diabetes Social History Smoking Status: Never smoker alcohol intake: never substance use type: does not use caffeine: Yes Type: coffee Number of servings: 1 what type of physical activity do you participate in: none seatbelt use: always do you feel safe at home: Yes HPI HPI Chief Complaint: cough Details: CAYLA CHISHOLM, is a 72yo F who presents to the office today due to complaints of worsening facial pressure, nasal drainage and cough. Said to have started about 2 - 3 weeks ago. Now said to be experiencing SOB with the cough. She however denies chest pain, chills or fever. ROS Const Constitutional: Positive for fatigue; no weight change, body ache, chills, sleep problems, fever(s), change in appetite, snoring, weakness, frequent falls, headache(s) or excessive sweating Eyes Eyes: No change in vision, eye pain, light sensitivity or blurry vision ENT ENT: Positive for nasal congestion and nasal discharge; no headache(s), abnormal hearing, ear pain, tinnitus, sore throat or neck pain Resp Respiratory: Positive for cough Cough: Yes productive, shortness of breath and wheezing (hears a whistle and some rattling); no snoring Cardio Cardiology: Positive for chest pain at rest (with the cough); no excessive sweating, chest pain with exertion, shortness of breath, dyspnea on exertion, palpitations, orthopnea or lightheadedness Gastro GI: No abdominal pain, change in bowel habits, constipation, vomiting, nausea/dyspepsia or cramping Genitourinary-Female: No burning urination, painful urination, urinary frequency, abnormal vaginal bleeding, pelvic pain or other Musc Musculoskeletal: No neck pain, abnormal walking, joint pain, back pain, limited range of motion, numbness or tingling Skin Skin: No redness, dry skin, itching, lesions, wounds or rash Neuro Neurology: No weakness, frequent falls, headache(s), abnormal hearing, abnormal walking, numbness, tingling, abnormal speech, dizziness or memory loss Psych Psychiatric: No change in appetite, No memory loss, No anxiety, No depression, No Thoughts of harming yourself/Others Endo Endocrine: Positive for fatigue; no excessive sweating, cold intolerance, increased thirst/drinking, heat intolerance, flushing or increased hunger Aller/Imm Allergy/Immunologic: Positive for wheezing (hears a whistle and some rattling); no itchy eyes, hives or seasonal allergy symptoms Ayaz/Lymp Hematologic/Lymphatic: No easy bleeding, easy bruising or enlarged lymph nodes Exam Const General: cooperative, no acute distress Orientation: alert, oriented x3, awake [facility] Head: atraumatic, normocephalic Ears: hearing grossly normal bilaterally Resp Effort AND Inspection: normal respiratory effort, able to speak in complete sentences Auscultation: Bilateral: Clear to Auscultation Cardio Rate: regular rate Rhythm: regular rhythm Heart Sounds: S1 normal, S2 normal GI Palpation: soft, no hepatosplenomegaly Neuro General: alert, awake, oriented x3, moves all extremities, CN's II-XI intact bilaterally Extrem General: no clubbing, cyanosis or edema Psych Appearance: grossly normal Mental Status: mental status grossly normal Affect: normal affect Assessment AND Plan 1. Chronic obstructive pulmonary disease, unspecified COPD type J44.9 Plan In mild exacerbation secondary to her recent URI/Sinusitis. Prescription for Augmentin 875-125mg BID sent. Prednisone 40mg daily x 5 days. Benzonatate prn for cough. Advised to call the office with any worsening symptoms. 2. Sinusitis, acute J01.90 Plan Plan as above. Tylenol prn for pain. Increased fluid intake and rest. 3. Essential hypertension I10 Plan Still not optimally controlled. Increase Lisinopril to 15mg daily also considering the mild proteinuria. Follow up at next visit. This note was generated with [employer] dictation software. It may contain incorrect words, spelling, and punctuation that were not noted in checking the note before signing. Plan Detail Other Medications New: Coding Level of Care Code Off vis,est,level 3 Diagnoses Chronic obstructive pulmonary disease, unspecified COPD type J44.9 COPD type: unspecified COPD Sinusitis, acute J01.90 Essential hypertension I10 Hypertension type: essential hypertension 11/27/17 1329 <Electronically signed by Quique Mims MD> Date Quique Mims MD Cosigner Signature: Date (if applicable) CC: CARDIOLOGY VISIT Observed: 11/01/2017 Status: F Source: [facility] REPORT 8:22 AM [facility] REPOSITORY [facility] [address] [place] [address] OFFICE VISIT Date of Service: 10/30/17 MR#: [id number] Acct: [id number] Name: CAYLA CHISHOLM Rep #: [id number] : 1945 Provider: Марина Lambert Age/Sex: 72/F Location[place] [facility] Status: Signed HPI HPI Details: CAYLA CHISHOLM, is a 72 F who presents to the office today for a cardiovascular outpatient follow-up. She is a history of mild coronary artery disease, paroxysmal atrial fibrillation, hypertension, pulmonary hypertension, hyperlipidemia, COPD, SEVEN, and diabetes. Her biggest issue is her breathing. She does follow with pulmonary for this. She does not have any chest discomfort/heaviness/tightness. She does not have any symptoms of congestive heart failure. She does not have any palpitations that she is aware of. She does not have any near-syncope or syncope. She does not have any lower extremity edema. . Intake Vital Signs10/30/17 Height 5 ft 3 in 10/30/17 Weight: 249 lb 10/30/17 Body Mass Index (BMI) 44.1 10/30/17 Blood Pressure 102/64 10/30/17 Blood Pressure Location Lt brachial Intake Visit Reasons: 6 M Quantitative Manager Required: No Accompanied by: Is patient in pain?: No Allergies labetalol Allergy (Verified 10/30/17 11:02) Unknown pitavastatin [From Livalo] Allergy (Verified 10/30/17 11:02) Other simvastatin [From Zocor] Allergy (Verified 10/30/17 11:02) Other budesonide [From Symbicort] Adverse Reaction (Verified 10/30/17 11:02) Other formoterol [From Symbicort] Adverse Reaction (Verified 10/30/17 11:02) Other hydrocodone [From Vicodin] Adverse Reaction (Verified 10/30/17 11:02) Other Cguoirh-Hqr-Qgg Reductase Inhibitor Adverse Reaction (Verified 10/30/17 11:02) Other Medications Multivitamin [Daily Multiple Vitamin] 1 ea PO DAILY 10/11/16 [History Confirmed 10/30/17] Rivaroxaban [Xarelto] 20 mg PO DAILY #30 tab 10/17/16 [Rx Confirmed 10/30/17] Paroxetine HCl [Paxil] 40 mg PO QHS 05/01/17 [History Confirmed 10/30/17] Dextran 70/He-Cell [Tears Naturale, Artificial Tears] 2 drp EACH EYE Q2H PRN PRN bottle 05/17/17 [Rx Confirmed 10/30/17] Sotalol Hydrochloride [Betapace (Beta Rufina)] 120 mg PO BID #90 tab 05/17/17 [Rx Confirmed 10/30/17] busPIRone [Buspar] 10 mg PO TID tab 05/17/17 [Rx Confirmed 10/30/17] acetaminophen 500 mg capsule 500 mg PO Q4H PRN 08/10/17 [History Confirmed 10/30/17] albuterol sulfate 2.5 mg/3 mL (0.083 %) solution for nebulization 2.5 mg INHALATION Q4H PRN #180 vial 08/16/17 [Rx Confirmed 10/30/17] cholecalciferol (vitamin D3) 50,000 unit capsule 50,000 unit PO QWEEK 08/16/17 [History Confirmed 10/30/17] potassium chloride 20 mEq oral packet 20 meq PO BID 08/16/17 [History Confirmed 10/30/17] mometasone-formoterol HFA 200 mcg-5 mcg/actuation aerosol inhaler 2 puff INHALATION BID 09/19/17 [History Confirmed 10/30/17] amlodipine 10 mg tablet 5 mg PO DAILY #30 tab 09/26/17 [Rx Confirmed 10/30/17] hydrochlorothiazide 25 mg tablet 25 mg PO QAM #30 tab 09/26/17 [Rx Confirmed 10/30/17] ezetimibe 10 mg tablet 10 mg PO QDAY #30 tab 09/28/17 [Rx Confirmed 10/30/17] fenofibrate micronized 67 mg capsule 67 mg PO QPM #30 cap 09/28/17 [Rx Confirmed 10/30/17] omeprazole 20 mg capsule,delayed release 20 mg PO QDAY #90 cap 09/29/17 [Rx Confirmed 10/30/17] alprazolam 0.5 mg tablet 0.5 mg PO BID PRN #45 tab 10/11/17 [Rx Confirmed 10/30/17] metformin 500 mg tablet 500 mg PO BID #60 tab 10/11/17 [Rx Confirmed 10/30/17] lisinopril 10 mg tablet 10 mg PO QDAY #60 tab 10/27/17 [Rx Confirmed 10/30/17] Ejection fraction %: 65 to 70 PFSH Medical History Diastolic congestive heart failure (Chronic) Atherosclerotic heart disease of [place] coronary artery without angina pectoris (Chronic) Long-term use of high-risk medication (Chronic) SOB (shortness of breath) (Chronic) Pulmonary HTN (Chronic) SEVEN (obstructive sleep apnea) (Chronic) Atrial fibrillation with RVR (Chronic) Hypokalemia (Chronic) DM2 (diabetes mellitus, type 2) (Chronic) HTN (hypertension) (Chronic) Anxiety (Chronic) CAD (coronary artery disease) (Chronic) HLD (hyperlipidemia) (Chronic) COPD (chronic obstructive pulmonary disease) (Chronic) PAF (paroxysmal atrial fibrillation) (Chronic) Morbid obesity (Chronic) Spastic colon (Chronic) Junctional rhythm (Chronic) NSTEMI (non-ST elevated myocardial infarction) (Resolved) CAD (coronary artery disease) (Chronic) Acute respiratory failure with hypoxia and hypercarbia (Resolved) Acute exacerbation of chronic obstructive pulmonary disease (COPD) (Chronic) Streptococcal pneumonia (Resolved) Paroxysmal atrial fibrillation with rapid ventricular response (Chronic) Debility (Chronic) Hiatal hernia (Chronic) Panic disorder (Chronic) Sepsis (Resolved) Surgical History history of right wrist surgery (Resolved) History of tonsillectomy and adenoidectomy (Resolved) Family History Mother Cancer leukemia Father Respiratory disease Grandfather Myocardial infarction Grandmother Myocardial infarction Son Diabetes Social History Smoking Status: Never smoker alcohol intake: never substance use type: does not use caffeine: Yes Type: coffee Number of servings: 1 what type of physical activity do you participate in: none seatbelt use: always do you feel safe at home: Yes ROS Const Const: Negative for weakness, fatigue, fever(s) or headache(s) Eyes Eyes: Negative for blind spots, loss of peripheral vision or transient loss of vision ENT ENT: Negative for headache(s), dizziness, tinnitus or Nosebleed/epistaxis Cardio Chest Pain: No Palpitations: No Edema: None Muscle aches with walking: None Resp Respiratory: Positive for SOB with activity; negative for SOB at rest, SOB orthopnea\SOB lying down or Cough GI GI: Negative nausea, vomiting, heartburn or vomiting blood/hematemesis : Negative for hematuria Musc Musc: Negative for muscle aches/ myalgia Neuro Neuro: Negative for weakness, headache(s), dizziness, near syncope, syncope, lightheadedness or orthostatic symptoms Ayaz Hematologic/Lymphatic: Negative for easy bleeding Endo Endo: Negative for fatigue Cardiology Exam Const Appearance: cooperative, no acute distress and well developed Orientation: alert, awake and oriented x3 Head Head: normocephalic and atraumatic Mouth: moist mucous membranes Eyes General: appearance normal, both eyes and all related structures Conjunctivae: conjunctivae normal Pupils: PERRL EOM: EOM intact bilaterally Neck Neck: normal visual inspection, no lymphadenopathy and no JVD Carotids: Negative bruit Neck Mass: Negative Neck mass Chest Chest inspection: normal inspection of the chest and symmetric chest movement Auscultation: Bilateral: Clear to Auscultation Cardio Palpation: normal PMI Rate: regular rate Rhythm: regular rhythm Heart sounds: S1 normal and S2 normal; negative rub, gallop or murmur GI GI: normal to inspection, soft, no hepatosplenomegaly and bowel sounds present; negative tender Neuro General: alert, awake, oriented x3, CN's II-XI intact bilaterally and moves all extremities Extremities Pulses: Normal: Right Posterior Tibial Pulse, Left Posterior Tibial Pulse, Right Radial Pulse, Left Radial Pulse Lower Extremity Edema: None: Bilateral Psych Psychological: normal affect Supplemental Info Echocardiogram from April 2017 shortness of ejection fraction 65%, mild to moderate eccentric left ventricular hypertrophy, severely enlarged left atrium, moderately enlarged right atrium, moderate to severe mitral annular calcification, extension of the mitral annular calcification to the posterior mitral valve leaflet, mild diffuse mitral valve thickening, mild mitral valve insufficiency, moderate tricuspid valve insufficiency, and an RVSP of 52 mmHg. Heart catheterization from September 2016 showed nonobstructive coronary artery disease and a left ventriculogram ejection fraction of 65% Assessment AND Plan 1. Atherosclerosis of [place] coronary artery of [place] heart without angina pectoris I25.10 Plan - PHYLLIS Broderick Stable, from a cardiac standpoint patient does not have any symptoms of angina. We recommend that they continue with current aggressive medical management and risk factor modification. 2. Essential hypertension I10 Plan - PHYLLIS Broderick Blood pressure is well controlled on current medications, we do not recommend any changes at this time. 3. Pure hypercholesterolemia E78.00; E78.0 Plan - PHYLLIS Broderick Lipids are less than ideal however she recently started Zetia and fenofibrate. These are managed by her primary care doctor. Also discussed dietary modifications 4. PAF (paroxysmal atrial fibrillation) I48.0 Plan - PHYLLIS Broderick Patient has not had any symptomatic recurrence. She will continue with her current dose of sotalol in addition to her current dose of Xarelto. Plan Detail Additional Comments - PHYLLIS Broderick The above patient was discussed with Dr. Sánchez in Dr. Perez's absence, he agrees with plan of care. Thank you for allowing us to participate in patient's plan of care, if you have any questions please do not hesitate to call. This note was generated using a voice recognition system and there may be incorrect words, spelling or punctuation errors that were not noted when reviewing the office note prior to saving. Follow Up 9 Months (PFM) Coding Level of Care Code Off vis,est,level 3 Diagnoses Atherosclerosis of [place] coronary artery of [place] heart without angina pectoris I25.10 [place] vs. transplanted heart: [place] heart Essential hypertension I10 Hypertension type: essential hypertension Pure hypercholesterolemia E78.00; E78.0 Hyperlipidemia type: pure hypercholesterolemia PAF (paroxysmal atrial fibrillation) I48.0 Coding Level of Care Code Off vis,est,level 3 Diagnoses Atherosclerosis of [place] coronary artery of [place] heart without angina pectoris I25.10 [place] vs. transplanted heart: [place] heart Essential hypertension I10 Hypertension type: essential hypertension Pure hypercholesterolemia E78.00; E78.0 Hyperlipidemia type: pure hypercholesterolemia PAF (paroxysmal atrial fibrillation) I48.0 10/30/17 1538 <Electronically signed by Марина FERGUSON> Date Марина FERGUSON 11/01/17 0822<Electronically signed by Jose Sánchez MD> Cosigner Signature: Date (if applicable) Jose Sánchez MD CC: Quique Mims MD PULMONARY VISIT REPORT Observed: 10/25/2017 Status: F Source: [facility] 10:52 AM [facility] [address] [place] [address] OFFICE VISIT Date of Service: 10/25/17 MR#: [id number] Acct: [id number] Name: CAYLA CHISHOLM Rep #: [id number] : 1945 Provider: Arya Robertson D.O. Age/Sex: 71/F Location: [facility] Status: Signed Assessment AND Plan 1. Chronic obstructive pulmonary disease, unspecified COPD type J44.9 Plan The patient has remained stable from a symptom standpoint on her current inhaler regimen, which will be continued without change. Plan for annual PFTs. Recommend repeat 6 minute walk test in 3-6 months. The patient's most recent 6 minute walk test did reveal that she no longer needs her supplemental oxygen. Orders will be placed to discontinue its use accordingly. 2. SEVEN (obstructive sleep apnea) G47.33 Plan The patient is benefiting symptomatically from the use of nocturnal CPAP therapy, which will be continued without change. 3. Obesity E66.9 Plan Weight loss through dietary modification and a graded exercise regimen is strongly encouraged. Plan Detail Follow Up 6 Months (DMB) HPI HPI Comments Details: The patient is a 71-year-old female who presents to the clinic today for a routine scheduled follow-up office visit. If you recall, the patient has a history of underlying atrial fibrillation, diastolic dysfunction and nonobstructive coronary artery disease. Although the patient is a lifelong non-smoker, she does have significant secondhand smoke exposure, having grown up in a smoking household and from being to a smoker. The patient also has known obstructive sleep apnea based off of a split-night sleep study completed in December 2016. It was recommended that the patient be placed on nasal CPAP with a pressure setting of 9 cm of water. The patient has completed pulmonary rehabilitation in the past. She currently utilizes [email or web address] is her DME provider. Pulmonary function testing completed in December 2016 revealed the presence of a partially reversible mixed ventilatory defect that was overall severe in nature. There was a moderate reduction in diffusing capacity. Repeat pulmonary function testing completed in September 2017 demonstrated the presence of an irreversible moderately severe large airways obstructive ventilatory defect with associated air trapping. A repeat 6 minute walk test completed at that time showed evidence of impaired walk distance without significant exertional oxygen desaturation. The patient's nocturnal Pap compliance report was personally reviewed at today's office visit. Over the last 30 days, she has demonstrated 97% compliance with use. She is currently sleeping just under 10 hours per night. She has a residual AHI noted to be 0.3. No significant air leaks were noted. The patient still reports ongoing shortness of breath with exertion. She ambulates with the assistance of a walker. She has not yet discontinued the use of her supplemental oxygen. However, she was notified today that based upon the results of her 6 minute walk test, she no longer needed to utilize her supplemental oxygen. She denies the presence of a cough. She does experience intermittent chest tightness, but denies any significant wheezing. She remains compliant with the use of Dulera and as needed albuterol. She states that she has utilize her rescue inhaler on average 1-2 times per week. She denies fevers, chills or night sweats. Her weight has been stable. She denies chest pain, dizziness or lightheadedness. She does experience improved sleep quality since being started on CPAP and appears to be benefiting from therapy. Intake Vital Signs10/25/17 Height 5 ft 3 in 10/25/17 Weight: 248 lb 10/25/17 Body Mass Index (BMI) 43.9 10/25/17 Blood Pressure 138/68 Intake Visit Reasons: 6 M FU [facility] Vendor: [employer] Accompanied by: Self Allergies labetalol Allergy (Verified 10/25/17 10:05) Unknown pitavastatin [From Livalo] Allergy (Verified 10/25/17 10:05) Other simvastatin [From Zocor] Allergy (Verified 10/25/17 10:05) Other budesonide [From Symbicort] Adverse Reaction (Verified 10/25/17 10:05) Other formoterol [From Symbicort] Adverse Reaction (Verified 10/25/17 10:05) Other hydrocodone [From Vicodin] Adverse Reaction (Verified 10/25/17 10:05) Other Yugmknh-Ioj-Tgd Reductase Inhibitor Adverse Reaction (Verified 10/25/17 10:05) Other Medications Multivitamin [Daily Multiple Vitamin] 1 ea PO DAILY 10/11/16 [History Confirmed 10/25/17] Rivaroxaban [Xarelto] 20 mg PO DAILY #30 tab 10/17/16 [Rx Confirmed 10/25/17] Paroxetine HCl [Paxil] 40 mg PO QHS 05/01/17 [History Confirmed 10/25/17] Dextran 70/He-Cell [Tears Naturale, Artificial Tears] 2 drp EACH EYE Q2H PRN PRN bottle 05/17/17 [Rx Confirmed 10/25/17] Sotalol Hydrochloride [Betapace (Beta Rufina)] 120 mg PO BID #90 tab 05/17/17 [Rx Confirmed 10/25/17] busPIRone [Buspar] 10 mg PO TID tab 05/17/17 [Rx Confirmed 10/25/17] acetaminophen 500 mg capsule 500 mg PO Q4H PRN 08/10/17 [History Confirmed 10/25/17] albuterol sulfate 2.5 mg/3 mL (0.083 %) solution for nebulization 2.5 mg INHALATION Q4H PRN #180 vial 08/16/17 [Rx Confirmed 10/25/17] cholecalciferol (vitamin D3) 50,000 unit capsule 50,000 unit PO QWEEK 08/16/17 [History Confirmed 10/25/17] potassium chloride 20 mEq oral packet 20 meq PO BID 08/16/17 [History Confirmed 10/25/17] mometasone-formoterol HFA 200 mcg-5 mcg/actuation aerosol inhaler 2 puff INHALATION BID 09/19/17 [History Confirmed 10/25/17] amlodipine 10 mg tablet 5 mg PO DAILY #30 tab 09/26/17 [Rx Confirmed 10/25/17] hydrochlorothiazide 25 mg tablet 25 mg PO QAM #30 tab 09/26/17 [Rx Confirmed 10/25/17] ezetimibe 10 mg tablet 10 mg PO QDAY #30 tab 09/28/17 [Rx Confirmed 10/25/17] fenofibrate micronized 67 mg capsule 67 mg PO QPM #30 cap 09/28/17 [Rx Confirmed 10/25/17] omeprazole 20 mg capsule,delayed release 20 mg PO QDAY #90 cap 09/29/17 [Rx Confirmed 10/25/17] alprazolam 0.5 mg tablet 0.5 mg PO BID PRN #45 tab 10/11/17 [Rx Confirmed 10/25/17] lisinopril 5 mg tablet 5 mg PO QDAY #30 tab 10/11/17 [Rx Confirmed 10/25/17] metformin 500 mg tablet 500 mg PO BID #60 tab 10/11/17 [Rx Confirmed 10/25/17] [facility] Medical History Long-term use of high-risk medication (Chronic) SOB (shortness of breath) (Acute) Pulmonary HTN (Chronic) SEVEN (obstructive sleep apnea) (Chronic) Atrial fibrillation with RVR (Acute) Hypokalemia (Acute) DM2 (diabetes mellitus, type 2) (Chronic) HTN (hypertension) (Chronic) Anxiety (Chronic) CAD (coronary artery disease) (Chronic) HLD (hyperlipidemia) (Chronic) COPD (chronic obstructive pulmonary disease) (Chronic) PAF (paroxysmal atrial fibrillation) (Chronic) Morbid obesity (Chronic) Spastic colon (Chronic) Junctional rhythm (Acute) Sepsis (Acute) NSTEMI (non-ST elevated myocardial infarction) (Acute) CAD (coronary artery disease) (Chronic) Acute respiratory failure with hypoxia and hypercarbia (Acute) Acute exacerbation of chronic obstructive pulmonary disease (COPD) (Acute) Streptococcal pneumonia (Acute) Non-ST elevation myocardial infarction (NSTEMI), type 2 (Acute) Paroxysmal atrial fibrillation with rapid ventricular response (Acute) Debility (Acute) Hiatal hernia (Chronic) Panic disorder (Chronic) Surgical History History of tonsillectomy and adenoidectomy (Resolved) history of right wrist surgery (Acute) Family History Mother Cancer leukemia Father Respiratory disease Grandfather Myocardial infarction Grandmother Myocardial infarction Son Diabetes Social History Smoking Status: Never smoker alcohol intake: never substance use type: does not use what type of physical activity do you participate in: none Review of Systems Const CONSTITUTIONAL: Positive fatigue; negative anorexia, body ache, chills, daytime sleepiness, fever(s), night sweats, oral thrush, stops breathing during sleep, weight loss, sleeping in chair, weight loss, weight gain, frequent colds, seasonal allergies, other, headache(s) or orthopnea EETM Ear Nose Throat Mouth: Positive hearing normal; negative hard of hearing, hoarseness, dry mouth in morning, change in vision, itchy eyes, eye pain, swallowing Difficulty, ear pain, nose bleed, headache(s), mouth pain, nasal congestion, nasal discharge, post nasal drip, sinus pain, sinus pressure, sore throat or other Cardio Cardiovascular: Negative chest pain, chest pain at rest, chest pain with activity, irregular heart rhythm, edema, shortness of breath when lying down, palpitations, murmur or other Resp Respiratory: Positive as per HPI, shortness of breath shortness of breath: Positive with activity and inhalers; negative pain with cough, wheezing, chest congestion, cough, chest tightness, pain on inspiration, increase use of rescue inhalers, snoring, apnea or other Gastro Gastrointestional: Negative bloody stools, change in appetite, difficulty swallowing, reflux, hematemesis, melena stool, loose stool, constipation or other Genitourinary: Negative blood in urine, nocturia, pain with urination or other Musc Musculoskeletal: Negative body pain, back pain, neck pain or other Skin/Breast Skin/Breast: Negative dry skin, itching, rash, unusual bruising, breast lump or other Neuro Neurological: Positive weakness; negative restless legs, confusion or other Psych Psychocological: Negative abnormal sleep pattern, anxiety, thoughts of hurting self/others, hopelessness or other Lymph Lymphatic: Negative easy bleeding, easy bruising, swollen lymph nodes or other Exam Const Constitutional: Positive conversant, cooperative, in no acute respiratory distress, well developed, well nourished, obese and wearing supplemental oxygen Head Head: Positive normocephalic and atraumatic; negative cyanosis of lips/distal nose Eyes Eye: Positive clear conjunctiva; negative nystagmus or scleral abnormality Ears Ear: Positive hearing normal and external ears normal; negative hard of hearing Nose Nose: Positive external nose normal; negative epistaxis Mouth Mouth: Positive oral mucosae normal and posterior oropharynx is adequate; negative no lesions or post nasal drip Mallampati Score: II: Mallampati Score Neck Neck: Positive normal visual inspection, trachea midline and thick neck; negative lymphadenopathy Chest Wall Chest: Positive symmetric chest movement Normal AP diameter. Resp lung sounds: Positive diminished diminished: Positive bialteral and normal expiratory time; negative wheezes, rhonchi or rales Cardio Cardiac: Positive regular rate, regular rhythm, S1 normal and S2 normal; negative rub, gallop or murmur GI GI: Positive normal bowel sounds and obese Soft without distention Genitourinary: Positive deferred Musc Musculoskeletal: Positive using an assistive device for ambulation Skin Pulmonary Skin Exam: Positive intact; negative lesion, ulcers, dermal atrophy or rash Pulses Pulse: Yes Pedal pulses present: Extremities Extremities: No clubbing, No cyanosis, No edema Neuro Neurologic: Yes conversant, Yes no focal neuro deficits, Yes cooperative Lymph Lymphatic: No lymphadenopathy Psych Appearance: Positive grossly normal Mental Status: Positive mental status grossly normal Mood: Positive congruent mood Affect: Positive normal affect Coding Level of Care Code Off vis,est,level 3 Diagnoses Chronic obstructive pulmonary disease, unspecified COPD type J44.9 COPD type: unspecified COPD SEVEN (obstructive sleep apnea) G47.33 Obesity E66.9 10/25/17 1052 <Electronically signed by Arya Robertson DO> Date Arya Robertson DO Cosigner Signature: Date (if applicable) CC: Gaetano Mcmullen MD MICROALB:CREAT Collected: 10/25/2017 Status: F Source: [facility] 9:26 AM [facility] [place] REPOSITORY TYPE CODE TESTS RESULT OUT OF RANGE REFERENCE UNITS LAB L501.1200 NO RANGE EST. mg/dL Normal UR CREAT 88.40 LAB L502.0500 NO RANGE EST. mg/L Normal 35.4 MICROALBUMIN ,UR LAB L502.0600 <30 mg/g CRE mg/g CRE High 40.0 MALB:CREAT Performed By: #### L502.0250, L500.4050 #### [facility] [address] [place], [place], [id number] COMPREHENSIVE METABOLIC Collected: 10/25/2017 Status: F Source: [facility] 9:26 AM [facility] [place] REPOSITORY TYPE CODE TESTS RESULT OUT OF RANGE REFERENCE UNITS LAB L501.0100 74-106 mg/dL Normal GLU 96 Result Comment: Please note revised GLUCOSE reference range effective 2017. LAB L501.1000 7-18 mg/dL Normal BUN 12 LAB L501.1100 0.55-1.02 mg/dL Normal CREAT,SERUM 0.57 Result Comment: The validity of the calculated GFR AND GFRAA in patients over 70 years has not been determined. Clinical correlation is essential. LAB L501.1110 >60 mL/min Normal EST GFR 111 Result Comment: Non- GFR Calc LAB L501.1115 >60 mL/min Normal EST GFR - AA 135 Result Comment: GFR Calc LAB L501.1300 10-20 RATIO High BUN/CRE 21.0 LAB L501.1500 6.4-8.2 g/dL T Normal PROT 7.2 LAB L501.1800 3.2-5.0 g/dL Normal ALB 3.9 LAB L501.1950 2.2-4.2 g/dL Normal GLOB 3.3 LAB L501.2000 0.9-2.4 RATIO Normal A/G 1.2 LAB L501.2200 8.5-10.1 mg/dL CA Normal 9.0 LAB L501.4100 15-37 U/L Normal AST 15 LAB L501.4305 45-117 U/L Normal ALK P 72 LAB L501.4405 13-56 U/L Normal ALT 26 Result Comment: Please note revised ALT reference range effective 2017. LAB L501.4600 0.20-1.00 mg/dL Normal T BILI 0.20 LAB L501.5300 136-145 mmol/L Normal NA 140 LAB L501.5600 3.5-5.1 mmol/L Normal K 3.8 LAB L501.5900 98-107 mmol/L Normal CL 102 LAB L501.6100 21.0-32.0 mmol/L Normal CO2 31.0 LAB L501.6200 5-15 Normal GAP 7 Performed By: #### L502.0250, L500.4050 #### [facility] [address] [place], [address] INTERNAL MEDICINE Observed: 10/12/2017 Status: F Source: [facility] OFFICE VISIT 12:08 PM [facility] [address] [place] [address] [address] [place] [address] OFFICE VISIT Date of Service: 10/11/17 MR#: [id number] Acct: [id number] Name: CAYLA CHISHOLM Rep #: [id number] : 1945 Provider: Timmy Ndiaye NP Age/Sex: 71/F Location: [facility] Status: Signed Intake Vital Signs10/11/17 Height 5 ft 3 in Intake Visit Reasons: 3 WK F/U Chief Complaint: follow-up visit Is patient in pain?: Yes (left flank) Pain scale (1-10): 1 Allergies labetalol Allergy (Verified 09/27/17 07:52) Unknown pitavastatin [From Livalo] Allergy (Verified 09/27/17 07:52) Other simvastatin [From Zocor] Allergy (Verified 09/27/17 07:52) Other budesonide [From Symbicort] Adverse Reaction (Verified 09/27/17 07:52) Other formoterol [From Symbicort] Adverse Reaction (Verified 09/27/17 07:52) Other hydrocodone [From Vicodin] Adverse Reaction (Verified 09/27/17 07:52) Other Aykgeou-Imy-Lak Reductase Inhibitor Adverse Reaction (Verified 09/27/17 07:52) Other Medications Multivitamin [Daily Multiple Vitamin] 1 ea PO DAILY 10/11/16 [History Confirmed 09/27/17] Rivaroxaban [Xarelto] 20 mg PO DAILY #30 tab 10/17/16 [Rx Confirmed 10/11/17] Paroxetine HCl [Paxil] 40 mg PO QHS 05/01/17 [History Confirmed 10/11/17] Dextran 70/He-Cell [Tears Naturale, Artificial Tears] 2 drp EACH EYE Q2H PRN PRN bottle 05/17/17 [Rx Confirmed 09/27/17] Sotalol Hydrochloride [Betapace (Beta Rufina)] 120 mg PO BID #90 tab 05/17/17 [Rx Confirmed 10/11/17] busPIRone [Buspar] 10 mg PO TID tab 05/17/17 [Rx Confirmed 10/11/17] acetaminophen 500 mg capsule 500 mg PO Q4H PRN 08/10/17 [History Confirmed 09/27/17] albuterol sulfate 2.5 mg/3 mL (0.083 %) solution for nebulization 2.5 mg INHALATION Q4H PRN #180 vial 08/16/17 [Rx Confirmed 10/11/17] cholecalciferol (vitamin D3) 50,000 unit capsule 50,000 unit PO QWEEK 08/16/17 [History Confirmed 09/27/17] potassium chloride 20 mEq oral packet 20 meq PO BID 08/16/17 [History Confirmed 10/11/17] doxycycline hyclate 100 mg tablet 100 mg PO BID #20 tab 09/19/17 [Rx Confirmed 09/27/17] mometasone-formoterol HFA 200 mcg-5 mcg/actuation aerosol inhaler 2 puff INHALATION BID 09/19/17 [History Confirmed 10/11/17] prednisone 10 mg tablet 10 mg PO QDAY #30 tab 09/19/17 [Rx Confirmed 09/27/17] amlodipine 10 mg tablet 5 mg PO DAILY #30 tab 09/26/17 [Rx Confirmed 10/11/17] hydrochlorothiazide 25 mg tablet 25 mg PO QAM #30 tab 09/26/17 [Rx Confirmed 09/27/17] ezetimibe 10 mg tablet 10 mg PO QDAY #30 tab 09/28/17 [Rx Confirmed 10/11/17] fenofibrate micronized 67 mg capsule 67 mg PO QPM #30 cap 09/28/17 [Rx Confirmed 10/11/17] omeprazole 20 mg capsule,delayed release 20 mg PO QDAY #90 cap 09/29/17 [Rx Confirmed 10/11/17] alprazolam 0.5 mg tablet 0.5 mg PO BID PRN #45 tab 10/11/17 [Rx Confirmed 10/11/17] lisinopril 5 mg tablet 5 mg PO QDAY #30 tab 10/11/17 [Rx Confirmed 10/11/17] metformin 500 mg tablet 500 mg PO BID #60 tab 10/11/17 [Rx Confirmed 10/11/17] [facility] Medical History Long-term use of high-risk medication (Chronic) SOB (shortness of breath) (Acute) Pulmonary HTN (Chronic) SEVEN (obstructive sleep apnea) (Chronic) Atrial fibrillation with RVR (Acute) Hypokalemia (Acute) DM2 (diabetes mellitus, type 2) (Chronic) HTN (hypertension) (Chronic) Anxiety (Chronic) CAD (coronary artery disease) (Chronic) HLD (hyperlipidemia) (Chronic) COPD (chronic obstructive pulmonary disease) (Chronic) PAF (paroxysmal atrial fibrillation) (Chronic) Morbid obesity (Chronic) Spastic colon (Chronic) Junctional rhythm (Acute) Sepsis (Acute) NSTEMI (non-ST elevated myocardial infarction) (Acute) CAD (coronary artery disease) (Chronic) Acute respiratory failure with hypoxia and hypercarbia (Acute) Acute exacerbation of chronic obstructive pulmonary disease (COPD) (Acute) Streptococcal pneumonia (Acute) Non-ST elevation myocardial infarction (NSTEMI), type 2 (Acute) Paroxysmal atrial fibrillation with rapid ventricular response (Acute) Debility (Acute) Hiatal hernia (Chronic) Panic disorder (Chronic) Surgical History History of tonsillectomy and adenoidectomy (Resolved) history of right wrist surgery (Acute) Family History Mother Cancer leukemia Father Respiratory disease Grandfather Myocardial infarction Grandmother Myocardial infarction Son Diabetes Social History Smoking Status: Never smoker alcohol intake: never substance use type: does not use what type of physical activity do you participate in: none HPI HPI Chief Complaint: follow-up visit Details: CAYLA CHISHOLM, is a 71 F who presents to the office today for a two-week follow-up for her hypertension, type 2 diabetes, vitamin D deficiency, COPD, chronic respiratory failure, and hyperlipidemia. She denies any acute complaints at this visit. Regarding her diabetes her most recent A1c was 6.7. She has been taken off of the metformin by previous physician for an unknown reason. She is agreeable to restarting the metformin 500 mg twice a day. She does not routinely check her blood sugar at home. She denies any symptoms of of hypo-or hyperglycemia. She does have yearly diabetic eye exams, but has not seen a plate gauger. She was provided with a referral to see Dr. Adams for diabetic foot exam. With regard to her hypertension, on the last visit she was changed from Lasix to HCTZ. She is tolerating this medication well and has improved control over her blood pressures. Her blood pressure in the office today is 136/67. She denies any symptoms associated with hypertension. Regarding her hyperlipidemia, she was started on Zetia at the last visit and is doing well on this. She has been tolerating vitamin D supplements for her vitamin D deficiency. She does request a refill on her alprazolam which she takes for anxiety. She notes that she has been attempting to wean the dose of alprazolam she takes, currently taking 0.5 mg 1-2 times a day as needed. With regard to her COPD and chronic hypoxic respiratory failure, she has no signs of acute respiratory distress and denies any shortness of breath at rest. In fact she notes improved respiratory status, though still has dyspnea with exertion. At baseline, she wears 3 L of oxygen with exertion and outside home, and 2 L while at rest and at bedtime. She does follow with Dr. Robertson and Brittany Parsons NP, in pulmonology and is hoping that she will be able to be off of oxygen other than with exertion soon. The patient otherwise denies any fever, chills, nausea, vomiting, chest pain or pressure, palpitations, orthopnea, lower extremity edema, syncope or presyncopal episodes. ROS Const Constitutional: No weight change, body ache, chills, fatigue, sleep problems, fever(s), change in appetite, snoring, weakness, frequent falls, headache(s) or excessive sweating Eyes Eyes: No change in vision, eye pain, light sensitivity or blurry vision ENT ENT: No headache(s), abnormal hearing, ear pain, tinnitus, nasal congestion, sore throat or neck pain Resp Respiratory: No snoring, cough, shortness of breath or wheezing Cardio Cardiology: No excessive sweating, chest pain at rest, chest pain with exertion, shortness of breath, dyspnea on exertion, palpitations, orthopnea or lightheadedness Gastro GI: No abdominal pain, change in bowel habits, constipation, diarrhea, vomiting, nausea/dyspepsia or cramping Musc Musculoskeletal: Positive for other (left ankle and thigh cramping at night.); no neck pain, abnormal walking, joint pain, back pain, limited range of motion, numbness or tingling Skin Skin: No redness, dry skin, itching, lesions, wounds or rash Neuro Neurology: No weakness, frequent falls, headache(s), abnormal hearing, abnormal walking, numbness, tingling, abnormal speech, dizziness or memory loss Psych Psychiatric: No change in appetite, No memory loss, No anxiety, No depression, No Thoughts of harming yourself/Others Endo Endocrine: No fatigue, excessive sweating, cold intolerance, increased thirst/drinking, heat intolerance, flushing or increased hunger Aller/Imm Allergy/Immunologic: No wheezing, itchy eyes, hives or seasonal allergy symptoms Ayaz/Lymp Hematologic/Lymphatic: No easy bleeding, easy bruising or enlarged lymph nodes Exam Const General: cooperative, comfortable, no acute distress Nutritional Appearance: well nourished, obese Orientation: alert, oriented x3 Limitations: mental status not altered Resp Effort AND Inspection: normal respiratory effort, able to speak in complete sentences, normal respiratory pattern, symmetric chest movement, no audible wheezes, no cough, other (Wearing 3 L continuous oxygen via nasal cannula) Auscultation: Bilateral: Diminished Base Cardio Palpation: normal PMI Rate: regular rate Heart Sounds: S1 normal, S2 normal, normal S1 and S2, no click, no gallops, no murmurs, no rubs GI Inspection: normal to inspection Auscultation: normal bowel sounds Skin General: no rashes or lesions noted Trauma: no lacerations or abrasions Wounds: no wounds Neuro General: alert, awake, oriented x3, CN's II-XI intact bilaterally Speech: speech normal Gait: normal gait Motor: muscle tone normal throughout Extrem General: normal to inspection, normal gait, edema Laterality: bilateral Location: Generalized Severity: non-pitting Psych Appearance: grossly normal Mental Status: mental status grossly normal Affect: normal affect Attitude: cooperative Thought Process: normal Assessment AND Plan 1. Type 2 diabetes mellitus with complication, without long- term current use of insulin E11.9 Plan A1c was 6.7. Start back on metformin 500 mg twice a day, check urine microalbumin level. Provided podiatry referral for Dr. Adams, patient already gets yearly diabetic eye exams. Encouraged ongoing efforts with dietary and lifestyle changes, and increase checking of blood sugars at home. Also started on lisinopril at 5 mg for nephro protection. Recheck a CMP in 2 weeks d/t med change with microalbumin. Orders Orders: Referrals: 2. Anxiety F41.9 Plan Refill for alprazolam 0.5 mg by mouth 1-2 times daily as needed only provided. OARRS report consistent with routine prescriptions of this medication by PCP, no signs of abuse or medication diversion. Encouraged ongoing attempts at weaning this medication, and only using when necessary. 3. Essential hypertension I10 Plan Hypertension: Controlled on current medications, will not make any adjustments at this time. Will continue with current medication regimen, risk factor reduction, and lifestyle modifications. Discussed dietary changes that should be considered which include reducing the amount of sodium intake. 4. Hyperlipidemia, unspecified hyperlipidemia type E78.5 Plan Continue on Zetia 10 mg daily. recheck a fasting lipid panel in 2 months. Plan Detail Other Orders Orders: Other Medications New: Changed: Follow Up 3 months or sooner if needed Coding Level of Care Code Off vis,est,level 4 Diagnoses Type 2 diabetes mellitus with complication, without long-term current use of insulin E11.9 Anxiety F41.9 Essential hypertension I10 Hyperlipidemia, unspecified hyperlipidemia type E78.5 10/12/17 1208 <Electronically signed by Timmy LAWSON> Date Timmy LAWSON Cosigner Signature: Date (if applicable) CC: PULMONARY FUNCTION Observed: 10/11/2017 Status: F Source: [facility] REPORT COMP 5:53 PM [facility] [place] REPOSITORY [facility] Pulmonary Services/Neurology [address] [place] [address] MR#: [id number] Acct: [id number] Name: CAYLA CHISHOLM Rep #: [id number] : 1945 71 From: Toan Arceo MD Referring Dr: Brittany Parsons NP Status: REG CLI Ordering Dr: Date: Location: [facility] Sex: F C COMPLETE PULMONARY FUNCTION TEST INTERPRETATION Brief HPI: Patient is a 71 year old female, currently under the care of Brittany Parsons, who presents to [facility] for complete pulmonary function tests secondary to diagnosis of COPD. Respiratory therapist reports good effort and reproducible results. Interpretation: Forced expiration spirometry shows a moderately-severe large airways obstructive ventilatory defect with an FEV1 of 57 % predicted. There is no significant bronchodilator response by ATS criteria. Spirograms are of good quality and plateau slowly, indicating slowly emptying areas of the lungs. The respiratory flow volume loop shows decreased expiratory flow rates at all lung volumes consistent with airway obstruction. Lung volumes by body plethysmography show a normal total lung capacity at 4.13 L, 89 % predicted. FRC and RV are elevated out of proportion. Lung volume measurements are consistent with air-trapping. Diffusion capacity by carbon monoxide is decreased at 49 % predicted. The airway resistance is elevated. Compared to previous pulmonary function tests from 01/10/2017, there has been a significant improvement in FVC, FEV1 and TLC by 23%, 14% and 19% respectively. Impression: Irreversible moderately severe large airways obstructive ventilatory defect resulting in air trapping. There has been improvement compared to previous study. 10/11/171752 <Electronically signed by Toan Arceo MD> Date Toan Arceo MD CC: Toan Arceo MD; Brittany Parsons; Quique Mims MD Date Dictated: 10/11/171749 Date Transcribed: 10/11/171749 Collateral Clerk: ROYCE Signed 6 MINUTE WALK TEST Observed: 10/02/2017 Status: F Source: [facility] 12:23 PM [facility] [place] REPOSITORY [facility] Pulmonary Services/Neurology [address] [place] [address] MR#: [id number] Acct: [id number] Name: CAYLA CHISHOLM Rep #: [id number] : 1945 71 From: Arya Robertson DO Referring Dr: Arya Robertson D.O. Date: Ordering Dr: Sex: F C Location: PSN PSN 6 Minute Walk Test - 6 Minute Walk Test 6 Minute Walk Test: 6 Minute Walk Test PSN:6-Minute Walk Test Start: 10/02/17 11:10 Freq: Status: Active Protocol: RESP.6MINW Document 10/02/17 11:00 EW (Rec: 10/02/17 11:13 EW [id number]) 6 Minute Walk Test Date Performed 10/02/17 Time Performed 11:00 Height 5 ft 3 in Weight: 245 lb Weight in Pounds 245.[address]: Arya Robertson Assistive device used: Walker Pre-test Oxygen Delivery Method Room Air Pulse Ox (%) 94 Pulse Rate (60-100 beats/min) 86 Dyspnea Clayton Scale (0-10) 2 Exertion Clayton Scale (6-20) 8 1st minute Oxygen Delivery Method Room Air Pulse Ox (%) 96 Pulse Rate (60-100 beats/min) 89 2nd minute Oxygen Delivery Method Room Air Pulse Ox (%) 93 Pulse Rate (60-100 beats/min) 91 3rd minute Oxygen Delivery Method Room Air Pulse Ox (%) 96 Pulse Rate (60-100 beats/min) 90 4th minute Oxygen Delivery Method Room Air Pulse Ox (%) 94 Pulse Rate (60-100 beats/min) 89 Number of Rests Taken 1 5th minute Oxygen Delivery Method Room Air Pulse Ox (%) 95 Pulse Rate (60-100 beats/min) 91 Number of Rests Taken 1 6th minute Oxygen Delivery Method Room Air Pulse Ox (%) 96 Pulse Rate (60-100 beats/min) 91 Post-test Oxygen Delivery Method Room Air Pulse Ox (%) 95 Pulse Rate (60-100 beats/min) 86 Dyspnea Clayton Scale (0-10) 3 Exertion Clayton Scale (6-20) 14 Full Laps Walked 5 Partial Lap, Number of Tiles Walked 28 Total Distance Walked (ft) 323 10/02/17 11:12 Cardiopulmonary Services by Aminta Snyder Addendum entered by Aminta Snyder 10/02/17 11:13: Original Note: PT ARRIVED ON 3L PULSE DOSE OXYGEN. PLACED PATIENT ON ROOM AIR. SHE REMAINED ON ROOM AIR FOR ENTIRE TEST. LOWEST SAT 94% ON ROOM AIR. Initialized on 10/02/17 11:12 - END OF NOTE - Interpretation Interpretation: The patient ambulated 323 feet over the course of 6 minutes on room air with the use of a walker. Pretesting oxygen saturation was noted to be 94% on room air. With ambulation, the vick oxygen saturation was 93%. Although there was evidence of impaired walk distance, there was no significant exertional oxygen desaturation. - Recommendations Recommendations: There is no indication for the use of supplemental oxygen at this time. 10/02/17 1223 <Electronically signed by Arya Robertson DO> Date Arya Robertson DO CC: Date Dictated: 10/02/17 1222 Date Transcribed: 10/02/171221 Collateral Clerk: Arya Robertson DO Signed PULMONARY VISIT REPORT Observed: 09/29/2017 Status: F Source: [facility] 2:55 PM [facility] REPOSITORY Pulmonary Medicine of [address] [place] [address] OFFICE VISIT Date of Service: 09/27/17 MR#: [id number] Acct: [id number] Name: CAYLA CHISHOLM Rep #: [id number] : 1945 Provider: Brittany Parsons Age/Sex: 71/F [place] [facility] [place] Status: Signed with Addenda ADDENDUM by Brittany Parsons on 09/29/17 at 1454 Addendum entered and electronically signed by LULU Wong 09/29/17 14:54: She is using and benefiting from current supplemental oxygen use. 09/29/17 1455 <Electronically signed by Brittany LAWSON> Date Brittany Parsons cc: Quique Mims MD * Signed Assessment AND Plan 1. COPD with acute exacerbation J44.1 Status Acute Plan Improving. Continue previously prescribed antibiotics and prednisone taper. Continue current maintenance medications. No additional testing at this time. Keep previously scheduled routine follow-up. HPI 1 W FU: Chief Complaint: Dry cough HPI Comments Details: This patient presents to the office today for follow- up after recently being treated for exacerbation of her COPD. She is ambulatory, currently wearing nasal cannula oxygen walking with the assistance of a wheeled walker. She is in the accompaniment of her today. The patient has been compliant taking her doxycycline as previously prescribed, has a few days remaining. She is also been compliant with the prednisone taper, has taken 20 mg today and begins a 10 mg dosing for 3 days tomorrow. She is currently using her albuterol nebulizer 3-4 times per day. Reports that overall her symptoms have improved, however today she did develop a cough. She denies any sputum production or hemoptysis. She denies any increase in shortness of breath. She denies any wheezing or chest tightness. He denies any fever, chills or body aches. Sleep is systems. He continues compliance with Dulera 2 puffs twice daily. She rinses her mouth out after each use. She denies any medication side effects such as sore throat or thrush. Intake Vital Signs09/27/17 Height 5 ft 5 in 09/27/17 Weight: 243 lb 09/27/17 Body Mass Index (BMI) 40.4 Intake Visit Reasons: 1 W FU Quantitative Manager Required: No Allergies labetalol Allergy (Verified 09/27/17 07:52) Unknown pitavastatin [From Livalo] Allergy (Verified 09/27/17 07:52) Other simvastatin [From Zocor] Allergy (Verified 09/27/17 07:52) Other budesonide [From Symbicort] Adverse Reaction (Verified 09/27/17 07:52) Other formoterol [From Symbicort] Adverse Reaction (Verified 09/27/17 07:52) Other hydrocodone [From Vicodin] Adverse Reaction (Verified 09/27/17 07:52) Other Hoqsywg-Nhy-Rbf Reductase Inhibitor Adverse Reaction (Verified 09/27/17 07:52) Other Medications ALPRAZolam [Xanax] 0.5 mg PO TID PRN PRN 10/11/16 [History Confirmed 09/27/17] Multivitamin [Daily Multiple Vitamin] 1 ea PO DAILY 10/11/16 [History Confirmed 09/27/17] Rivaroxaban [Xarelto] 20 mg PO DAILY #30 tab 10/17/16 [Rx Confirmed 09/27/17] Paroxetine HCl [Paxil] 40 mg PO QHS 05/01/17 [History Confirmed 09/27/17] BusPIRone [Buspar] 10 mg PO TID tab 05/17/17 [Rx Confirmed 09/27/17] Dextran 70/He-Cell [Tears Naturale, Artificial Tears] 2 drp EACH EYE Q2H PRN PRN bottle 05/17/17 [Rx Confirmed 09/27/17] Sotalol Hydrochloride [Betapace (Beta Rufina)] 120 mg PO BID #90 tab 05/17/17 [Rx Confirmed 09/27/17] acetaminophen 500 mg capsule 500 mg PO Q4H PRN 08/10/17 [History Confirmed 09/27/17] albuterol sulfate 2.5 mg/3 mL (0.083 %) solution for nebulization 2.5 mg INHALATION Q4H PRN #180 vial 08/16/17 [Rx Confirmed 09/27/17] cholecalciferol (vitamin D3) 50,000 unit capsule 50,000 unit PO QWEEK 08/16/17 [History Confirmed 09/27/17] dexlansoprazole 60 mg capsule,biphase delayed release 60 mg PO QDAY 08/16/17 [History Confirmed 09/27/17] potassium chloride 20 mEq oral packet 20 meq PO BID 08/16/17 [History Confirmed 09/27/17] doxycycline hyclate 100 mg tablet 100 mg PO BID #20 tab 09/19/17 [Rx Confirmed 09/27/17] mometasone-formoterol HFA 200 mcg-5 mcg/actuation aerosol inhaler 2 puff INHALATION BID 09/19/17 [History Confirmed 09/27/17] prednisone 10 mg tablet 10 mg PO QDAY #30 tab 09/19/17 [Rx Confirmed 09/27/17] amlodipine 10 mg tablet 5 mg PO DAILY #30 tab 09/26/17 [Rx Confirmed 09/27/17] hydrochlorothiazide 25 mg tablet 25 mg PO QAM #30 tab 09/26/17 [Rx Confirmed 09/27/17] [facility] Medical History Long-term use of high-risk medication (Chronic) SOB (shortness of breath) (Acute) Pulmonary HTN (Chronic) SEVEN (obstructive sleep apnea) (Chronic) Atrial fibrillation with RVR (Acute) Hypokalemia (Acute) DM2 (diabetes mellitus, type 2) (Chronic) HTN (hypertension) (Chronic) Anxiety (Chronic) CAD (coronary artery disease) (Chronic) HLD (hyperlipidemia) (Chronic) COPD (chronic obstructive pulmonary disease) (Chronic) PAF (paroxysmal atrial fibrillation) (Chronic) Morbid obesity (Chronic) Spastic colon (Chronic) Junctional rhythm (Acute) Sepsis (Acute) NSTEMI (non-ST elevated myocardial infarction) (Acute) CAD (coronary artery disease) (Chronic) Acute respiratory failure with hypoxia and hypercarbia (Acute) Acute exacerbation of chronic obstructive pulmonary disease (COPD) (Acute) Streptococcal pneumonia (Acute) Non-ST elevation myocardial infarction (NSTEMI), type 2 (Acute) Paroxysmal atrial fibrillation with rapid ventricular response (Acute) Debility (Acute) Hiatal hernia (Chronic) Panic disorder (Chronic) Surgical History History of tonsillectomy and adenoidectomy (Resolved) history of right wrist surgery (Acute) Family History Mother Cancer leukemia Father Respiratory disease Grandfather Myocardial infarction Grandmother Myocardial infarction Son Diabetes Social History Smoking Status: Never smoker alcohol intake: never substance use type: does not use what type of physical activity do you participate in: none Review of Systems Const CONSTITUTIONAL: Positive fatigue; negative anorexia, body ache, chills, daytime sleepiness, fever(s), night sweats, oral thrush, stops breathing during sleep, weight loss, sleeping in chair, weight loss, weight gain, frequent colds, seasonal allergies, other, headache(s) or orthopnea EETM Ear Nose Throat Mouth: Positive hearing normal; negative hard of hearing, hoarseness, dry mouth in morning, change in vision, itchy eyes, eye pain, swallowing Difficulty, ear pain, nose bleed, headache(s), mouth pain, nasal congestion, nasal discharge, post nasal drip, sinus pain, sinus pressure, sore throat or other Cardio Cardiovascular: Negative chest pain, chest pain at rest, chest pain with activity, irregular heart rhythm, edema, shortness of breath when lying down, palpitations, murmur or other Resp Respiratory: Positive as per HPI and cough cough: Positive non-productive; negative shortness of breath, pain with cough, wheezing, chest congestion, chest tightness, pain on inspiration, inhalers, increase use of rescue inhalers, snoring, apnea or other Gastro Gastrointestional: Negative bloody stools, change in appetite, difficulty swallowing, reflux, hematemesis, melena stool, loose stool, constipation or other Genitourinary: Negative blood in urine, nocturia, pain with urination or other Musc Musculoskeletal: Negative body pain, back pain, neck pain or other Skin/Breast Skin/Breast: Negative dry skin, itching, rash, unusual bruising, breast lump or other Neuro Neurological: Positive weakness; negative restless legs, confusion or other Psych Psychocological: Negative abnormal sleep pattern, anxiety, thoughts of hurting self/others, hopelessness or other Lymph Lymphatic: Negative easy bleeding, easy bruising, swollen lymph nodes or other Exam Const Constitutional: Positive conversant, cooperative, in no acute respiratory distress, well developed, well nourished, good hygiene, wearing supplemental oxygen and obese Head Head: Positive normocephalic and atraumatic; negative cyanosis of lips/distal nose Eyes Eye: Positive clear conjunctiva and nystagmus; negative scleral abnormality Ears Ear: Positive hearing normal and external ears normal; negative hard of hearing Nose Nose: Positive external nose normal and no nasal discharge; negative epistaxis Mouth Mouth: Positive oral mucosae normal, poor dentition and no lesions; negative post nasal drip, oral thrush present or malodorous breath Mallampati Score: II: Mallampati Score Neck Neck: Positive normal visual inspection, full ROM and trachea midline; negative lymphadenopathy, JVD or tender Chest Wall Chest: Positive normal inspection of the chest and symmetric chest movement; negative increased A/P diameter Resp lung sounds: Positive wheeze present on forced exhalation, diminished, normal expiratory time and normal chronic state of increased work of breathing; negative wheezes, rales, rhonchi or dullness to percussion Cardio Cardiac: Positive regular rate, regular rhythm, S1 normal and S2 normal; negative murmur GI GI: Positive normal to inspection, normal bowel sounds and obese; negative distended Genitourinary: Positive deferred Musc Musculoskeletal: Positive steady gait, ROM normal, kyphosis and using an assistive device for ambulation; negative scoliosis Skin Pulmonary Skin Exam: Positive intact and dermal atrophy; negative rash, lesion, ulcers, erythema, scaly or Eczema Pulses Pulse: Yes pulses normal x4 extremities Extremities Extremities: No edema, Yes capillary refill normal, No clubbing, No cyanosis, No stasis dermatitis Neuro Neurologic: Yes conversant, Yes no focal neuro deficits, Yes cooperative, Yes normal cognition, Yes normal coordination, Yes normal concentration, Yes understands questions Lymph Lymphatic: No lymphadenopathy, No tenderness, No cervical adenopathy, No axillary adenopathy Psych Appearance: Positive grossly normal, eye contact and well kempt Mental Status: Positive mental status grossly normal Mood: Positive congruent mood Affect: Positive normal affect Coding Level of Care Code Off vis,est,level 3 Diagnoses COPD with acute exacerbation J44.1 09/27/17 0949 <Electronically signed by Brittany LAWSON> Date Brittany LAWSON Cosigner Signature: Date (if applicable) CC: Quique Mims MD INTERNAL MEDICINE Observed: 09/27/2017 Status: F Source: [place] OFFICE VISIT 5:57 PM [facility] [address] [facility] [address] [address] OFFICE VISIT Date of Service: 09/26/17 MR#: [id number] Acct: [id number] Name: CAYLA CHISHOLM Rep #: [id number] : 1945 Provider: Quique Mims MD Age/Sex: 71/F [place] [facility] [place] Status: Signed Intake Vital Signs09/26/17 Height 5 ft 5 in 09/26/17 Weight: 242 lb Intake Visit Reasons: EST CARE - NEW PCP Chief Complaint: Establish Care Accompanied by: Is patient in pain?: No Allergies labetalol Allergy (Verified 09/19/17 07:47) Unknown pitavastatin [From Livalo] Allergy (Verified 09/19/17 07:47) Other simvastatin [From Zocor] Allergy (Verified 09/19/17 07:47) Other budesonide [From Symbicort] Adverse Reaction (Verified 09/19/17 07:47) Other formoterol [From Symbicort] Adverse Reaction (Verified 09/19/17 07:47) Other hydrocodone [From Vicodin] Adverse Reaction (Verified 09/19/17 07:47) Other Pfwqemm-Svw-Fjj Reductase Inhibitor Adverse Reaction (Verified 09/19/17 07:47) Other Medications ALPRAZolam [Xanax] 0.5 mg PO TID PRN PRN 10/11/16 [History Confirmed 09/26/17] Multivitamin [Daily Multiple Vitamin] 1 ea PO DAILY 10/11/16 [History Confirmed 09/26/17] Rivaroxaban [Xarelto] 20 mg PO DAILY #30 tab 10/17/16 [Rx Confirmed 09/26/17] Paroxetine HCl [Paxil] 40 mg PO QHS 05/01/17 [History Confirmed 09/26/17] BusPIRone [Buspar] 10 mg PO TID tab 05/17/17 [Rx Confirmed 09/26/17] Dextran 70/He-Cell [Tears Naturale, Artificial Tears] 2 drp EACH EYE Q2H PRN PRN bottle 05/17/17 [Rx Confirmed 09/26/17] Sotalol Hydrochloride [Betapace (Beta Rufina)] 120 mg PO BID #90 tab 05/17/17 [Rx Confirmed 09/26/17] acetaminophen 500 mg capsule 500 mg PO Q4H PRN 08/10/17 [History Confirmed 09/26/17] albuterol sulfate 2.5 mg/3 mL (0.083 %) solution for nebulization 2.5 mg INHALATION Q4H PRN #180 vial 08/16/17 [Rx Confirmed 09/26/17] amlodipine 10 mg tablet 5 mg PO DAILY tab 08/16/17 [History Confirmed 09/26/17] cholecalciferol (vitamin D3) 50,000 unit capsule 50,000 unit PO QWEEK 08/16/17 [History Confirmed 09/26/17] dexlansoprazole 60 mg capsule,biphase delayed release 60 mg PO QDAY 08/16/17 [History Confirmed 09/26/17] potassium chloride 20 mEq oral packet 20 meq PO BID 08/16/17 [History Confirmed 09/26/17] doxycycline hyclate 100 mg tablet 100 mg PO BID #20 tab 09/19/17 [Rx Confirmed 09/26/17] mometasone-formoterol HFA 200 mcg-5 mcg/actuation aerosol inhaler 2 puff INHALATION BID 09/19/17 [History Confirmed 09/26/17] prednisone 10 mg tablet 10 mg PO QDAY #30 tab 09/19/17 [Rx Confirmed 09/26/17] hydrochlorothiazide 25 mg tablet 25 mg PO QAM #30 tab 09/26/17 [Rx Confirmed 09/26/17] PFSH Medical History Long-term use of high-risk medication (Chronic) SOB (shortness of breath) (Acute) Pulmonary HTN (Chronic) SEVEN (obstructive sleep apnea) (Chronic) Atrial fibrillation with RVR (Acute) Hypokalemia (Acute) DM2 (diabetes mellitus, type 2) (Chronic) HTN (hypertension) (Chronic) Anxiety (Chronic) CAD (coronary artery disease) (Chronic) HLD (hyperlipidemia) (Chronic) COPD (chronic obstructive pulmonary disease) (Chronic) PAF (paroxysmal atrial fibrillation) (Chronic) Morbid obesity (Chronic) Spastic colon (Chronic) Junctional rhythm (Acute) Sepsis (Acute) NSTEMI (non-ST elevated myocardial infarction) (Acute) CAD (coronary artery disease) (Chronic) Acute respiratory failure with hypoxia and hypercarbia (Acute) Acute exacerbation of chronic obstructive pulmonary disease (COPD) (Acute) Streptococcal pneumonia (Acute) Non-ST elevation myocardial infarction (NSTEMI), type 2 (Acute) Paroxysmal atrial fibrillation with rapid ventricular response (Acute) Debility (Acute) Hiatal hernia (Chronic) Panic disorder (Chronic) Surgical History History of tonsillectomy and adenoidectomy (Resolved) history of right wrist surgery (Acute) Family History Mother Cancer leukemia Father Respiratory disease Grandfather Myocardial infarction Grandmother Myocardial infarction Son Diabetes Social History Smoking Status: Never smoker alcohol intake: never substance use type: does not use what type of physical activity do you participate in: none HPI HPI Chief Complaint: Establish Care Details: CAYLA CHISHOLM, is a 71yo F who presents to the office today to establish care. She has a history of Hypertension, Hyperlipidemia, ABIOLA, DM type II, Afib, COPD and Pulmonary Hypertension on Home O2. She has no acute complaints at this time. She was seen by pulmonary about a week ago and managed as a case of COPD exacerbation. She was started on Doxycycline and a steroid taper. Symptoms are said to have improved since medication. She just reports a lingering cough which for the most part is said to be improving also. She denies worsening SOB, chills or fever. Blood pressure in office today is elevated at 142/60mmHg. She reports typically poorly controlled blood pressure with systolic Bp ranging in the 150's to 160's. She is currently on Amlodipine and Lasix. She reports a history also of DM type II diagnosed by her prior PCP. She was started on metformin however, this was said to have been discontinued by her most recent PCP. Last A1C in April was 6.3 ROS Const Constitutional: No weight change, body ache, fatigue, sleep problems, fever(s), change in appetite, snoring, weakness, frequent falls or headache(s) Eyes Eyes: No change in vision, eye pain, light sensitivity or blurry vision ENT ENT: No headache(s), abnormal hearing, ear pain, tinnitus, nasal congestion, sore throat or neck pain Resp Respiratory: Positive for cough Cough: Yes productive and shortness of breath (Chronic.); no snoring or wheezing Cardio Cardiology: No chest pain at rest, chest pain with exertion, shortness of breath, dyspnea on exertion, palpitations, orthopnea or lightheadedness Gastro GI: Positive for diarrhea and heartburn; no abdominal pain, change in bowel habits, constipation, vomiting, nausea/dyspepsia or cramping Musc Musculoskeletal: Positive for joint pain and back pain; no neck pain, abnormal walking, limited range of motion, numbness or tingling Skin Skin: No redness, dry skin, itching, lesions, wounds or rash Neuro Neurology: No weakness, frequent falls, headache(s), abnormal hearing, abnormal walking, numbness, tingling, abnormal speech, dizziness or memory loss Psych Psychiatric: No change in appetite, No memory loss, Positive for anxiety, Positive for depression, No Thoughts of harming yourself/Others Endo Endocrine: No fatigue, cold intolerance, increased thirst/drinking, heat intolerance, flushing or increased hunger Aller/Imm Allergy/Immunologic: No wheezing, itchy eyes, hives or seasonal allergy symptoms Ayaz/Lymp Hematologic/Lymphatic: No easy bleeding, easy bruising or enlarged lymph nodes Exam Const General: cooperative, no acute distress Orientation: alert, awake, oriented x3 Other: On Oxygen by nasal cannula. [facility] Head: normal to inspection, normocephalic, atraumatic Ears: hearing grossly normal bilaterally Resp Auscultation: Bilateral: Diminished Lung Sounds Cardio Rate: regular rate Heart Sounds: S1 normal, S2 normal GI Inspection: obesity Palpation: soft, no hepatosplenomegaly Neuro General: alert, awake, oriented x3, moves all extremities, CN's II-XI intact bilaterally Extrem Other: Trace bilateral pitting pedal edema Psych Appearance: grossly normal Affect: normal affect Assessment AND Plan 1. Chronic obstructive pulmonary disease, unspecified COPD type J44.9 Plan S/P recent exacerbation. Patient is stable and symptoms are said to have improved for the most part. Scheduled to follow up with pulmonary tomorrow. Continue current management. 2. Essential hypertension I10 Plan Poorly controlled. Bp in office is 142/60mmHg. No recorded history of aortic regurgitation. No murmur appreciated. Currently on Lasix and Amlodipine. Will switch Lasix to HCTZ. Continue Amlodipine. Follow up in 2 weeks. 3. Type 2 diabetes mellitus with complication, without long- term current use of insulin E11.9 Plan Prior history of Metformin use however, this was discontinued by her most recent PCP. Last A1C in April was 6.3. Will recheck A1C. Patient admits difficulty with dietary/ life style changes. Follow up with results. Orders Orders: 4. Hyperlipidemia, unspecified hyperlipidemia type E78.5 Plan Patient reports a history of hyperlipidemia however, is currently not on a statin due to intolerable side effects. Will get a Lipid panel and possibly try Repatha or Zetia if significantly elevated. This note was generated with [employer] software. It may contain incorrect words, spelling, and punctuation that were not noted in checking the note before signing. Plan Detail Other Orders Orders: Other Medications New: Discontinued: Follow Up 2 Weeks Coding Level of Care Code Off vis,est,level 4 Diagnoses Chronic obstructive pulmonary disease, unspecified COPD type J44.9 COPD type: unspecified COPD Essential hypertension I10 Type 2 diabetes mellitus with complication, without long-term current use of insulin E11.9 Hyperlipidemia, unspecified hyperlipidemia type E78.5 09/27/17 4517 <Electronically signed by Quique Mims MD> Date Quique Mims MD Cosigner Signature: Date (if applicable) CC: LIPID PROFILE Collected: 09/27/2017 Status: F Source: [place] 8:56 AM [facility] [place] REPOSITORY TYPE CODE TESTS RESULT OUT OF RANGE REFERENCE UNITS LAB L501.4900 200 mg/dL High CHOL 327 Result Comment: <200 mg/dL Desirable 200-240 mg/dL Borderline >240 mg/dL High Risk LAB L501.5000 mg/dL High TRIG 292 Result Comment: The drugs N-Acetylcysteine and Metamizole may falsely depress this assay. Serum Triglycerides Reference Interval Normal <150 mg/dL Borderline high 150 - 199 mg/dL High 200 - 499 mg/dL Very High > or = 500 mg/dL LAB L501.6400 mg/dL Low HDL 39 Result Comment: The drugs N-Acetylcysteine and Metamizole may falsely depress this assay. Reference Range HDL <40 mg/dL Low HDL Cholesterol HDL >or= 60 mg/dL High HDL Cholesterol LAB L501.6500 0-130 mg/dL High LDL 230 LAB L501.6600 5-40 mg/dL High VLDL 58 Performed By: #### L500.4100 #### [facility] [address] [place], [address] HEMOGLOBIN A1C Collected: 09/27/2017 Status: F Source: [place] 8:56 AM [facility] [place] REPOSITORY TYPE CODE TESTS RESULT OUT OF RANGE REFERENCE UNITS LAB L501.9985 4.2-6.3 % High HGB A1C 6.7 Performed By: #### L501.9985 #### [facility] [address] [place], [address] PULMONARY VISIT REPORT Observed: 09/19/2017 Status: F Source: [place] 8:25 AM [facility] [place] REPOSITORY Pulmonary Medicine of [address] [place] [address] OFFICE VISIT Date of Service: 09/19/17 MR#: [id number] Acct: [id number] Name: CAYLA CHISHOLM Rep #: [id number] : 1945 Provider: Brittany Parsons Age/Sex: 71/F [facility] Status: Signed Assessment AND Plan 1. COPD with acute exacerbation J44.1 Plan Deteriorated. She appears to be an exacerbation of her COPD. She will be treated with doxycycline 100 mg twice daily and a prednisone taper. She has been advised that should take at least 2 days before she starts to see improvement of her symptoms. I will follow-up with her in 1 week to make sure that she has turned the corner and is improving. She has been advised to contact the office if her blood sugars are greater than 300, as she as is in a transition between primary care providers. If she begins to have an issue with blood sugars in the meantime, I will contact the new PCP to see if I can make arrangements for her to be seen sooner. Plan Detail Other Medications New: prednisone take 4 tabs for three days, then 3 tabs for three days, then 10 mg PO QDAY 2 tabs for three days, then 1 tab for 3 days Follow Up 1 Week ([facility]) HPI cough/cold : Chief Complaint: cough HPI Comments Details: This patient presents the office today for an acute visit regarding cough. She is ambulatory with the assistance of a wheeled walker, wearing nasal cannula oxygen and accompanied by her . The patient reports that her symptoms began 5 days ago. She noticed a more frequent cough that is productive of yellow sputum. She is also having chest tightness and wheezing. She has had to increase the frequency of her nebulizer use. She did notice a fever of 100 on Monday and Monday and utilize Tylenol [id number] for this fever, which was effective. She continues to utilize her oxygen 2 L/min. She denies any chest pain or palpitations. She denies any chest congestion. She denies any sore throat, chills or body aches. See complete review of systems. She has been compliant with her Dulera, 2 puffs twice daily. She denies any medication side effects such as sore throat or thrush. Intake Vital Signs09/19/17 Height 5 ft 5 in 09/19/17 Weight: 247 lb 09/19/17 Body Mass Index (BMI) 41.1 Intake Visit Reasons: cough/cold DME Vendor: [employer] Accompanied by: Self Allergies labetalol Allergy (Verified 09/19/17 07:47) Unknown pitavastatin [From Livalo] Allergy (Verified 09/19/17 07:47) Other simvastatin [From Zocor] Allergy (Verified 09/19/17 07:47) Other budesonide [From Symbicort] Adverse Reaction (Verified 09/19/17 07:47) Other formoterol [From Symbicort] Adverse Reaction (Verified 09/19/17 07:47) Other hydrocodone [From Vicodin] Adverse Reaction (Verified 09/19/17 07:47) Other Yoeilcm-Pbf-Dys Reductase Inhibitor Adverse Reaction (Verified 09/19/17 07:47) Other Medications ALPRAZolam [Xanax] 0.5 mg PO TID PRN PRN 10/11/16 [History Confirmed 09/19/17] Multivitamin [Daily Multiple Vitamin] 1 ea PO DAILY 10/11/16 [History Confirmed 09/19/17] Rivaroxaban [Xarelto] 20 mg PO DAILY #30 tab 10/17/16 [Rx Confirmed 09/19/17] Paroxetine HCl [Paxil] 40 mg PO QHS 05/01/17 [History Confirmed 09/19/17] BusPIRone [Buspar] 10 mg PO TID tab 05/17/17 [Rx Confirmed 09/19/17] Dextran 70/He-Cell [Tears Naturale, Artificial Tears] 2 drp EACH EYE Q2H PRN PRN bottle 05/17/17 [Rx Confirmed 09/19/17] Sotalol Hydrochloride [Betapace (Beta Rufina)] 120 mg PO BID #90 tab 05/17/17 [Rx Confirmed 09/19/17] acetaminophen 500 mg capsule 500 mg PO Q4H PRN 08/10/17 [History Confirmed 09/19/17] albuterol sulfate 2.5 mg/3 mL (0.083 %) solution for nebulization 2.5 mg INHALATION Q4H PRN #180 vial 08/16/17 [Rx Confirmed 09/19/17] amlodipine 10 mg tablet 5 mg PO DAILY tab 08/16/17 [History Confirmed 09/19/17] cholecalciferol (vitamin D3) 50,000 unit capsule 50,000 unit PO QWEEK 08/16/17 [History Confirmed 09/19/17] dexlansoprazole 60 mg capsule,biphase delayed release 60 mg PO QDAY 08/16/17 [History Confirmed 09/19/17] furosemide 40 mg tablet 40 mg PO BID tab 08/16/17 [History Confirmed 09/19/17] potassium chloride 20 mEq oral packet 20 meq PO BID 08/16/17 [History Confirmed 09/19/17] doxycycline hyclate 100 mg tablet 100 mg PO BID #20 tab 09/19/17 [Rx Confirmed 09/19/17] mometasone-formoterol HFA 200 mcg-5 mcg/actuation aerosol inhaler 2 puff INHALATION BID 09/19/17 [History Confirmed 09/19/17] prednisone 10 mg tablet 10 mg PO QDAY #30 tab 09/19/17 [Rx Confirmed 09/19/17] PFSH Medical History Long-term use of high-risk medication (Chronic) SOB (shortness of breath) (Acute) Pulmonary HTN (Chronic) SEVEN (obstructive sleep apnea) (Chronic) Atrial fibrillation with RVR (Acute) Hypokalemia (Acute) DM2 (diabetes mellitus, type 2) (Chronic) HTN (hypertension) (Chronic) Anxiety (Chronic) CAD (coronary artery disease) (Chronic) HLD (hyperlipidemia) (Chronic) COPD (chronic obstructive pulmonary disease) (Chronic) PAF (paroxysmal atrial fibrillation) (Chronic) Morbid obesity (Chronic) Spastic colon (Chronic) Junctional rhythm (Acute) Sepsis (Acute) NSTEMI (non-ST elevated myocardial infarction) (Acute) CAD (coronary artery disease) (Chronic) Acute respiratory failure with hypoxia and hypercarbia (Acute) Acute exacerbation of chronic obstructive pulmonary disease (COPD) (Acute) Streptococcal pneumonia (Acute) Non-ST elevation myocardial infarction (NSTEMI), type 2 (Acute) Paroxysmal atrial fibrillation with rapid ventricular response (Acute) Debility (Acute) Hiatal hernia (Chronic) Panic disorder (Chronic) Surgical History History of tonsillectomy and adenoidectomy (Resolved) Social History Smoking Status: Never smoker alcohol intake: never substance use type: does not use Review of Systems Const CONSTITUTIONAL: Positive anorexia, body ache, daytime sleepiness and fever(s); negative chills, night sweats, oral thrush, stops breathing during sleep, weight loss, sleeping in chair, fatigue, weight loss, weight gain, frequent colds, seasonal allergies, other, headache(s) or orthopnea EETM Ear Nose Throat Mouth: Positive hard of hearing, dry mouth in morning and nasal discharge; negative hearing normal, hoarseness, change in vision, itchy eyes, eye pain, swallowing Difficulty, ear pain, nose bleed, headache(s), mouth pain, nasal congestion, sinus pain, sinus pressure, sore throat or other Cardio Cardiovascular: Positive chest pain; negative chest pain at rest, chest pain with activity, irregular heart rhythm, edema, shortness of breath when lying down, palpitations, murmur or other Resp Respiratory: Positive as per HPI, shortness of breath, pain with cough, wheezing, cough cough: Positive productive color: Positive thick and yellow, chest tightness, inhalers and apnea; negative chest congestion, pain on inspiration, increase use of rescue inhalers, snoring or other Gastro Gastrointestional: Negative bloody stools, change in appetite, difficulty swallowing, reflux, hematemesis, melena stool, loose stool, constipation or other Genitourinary: Positive nocturia; negative blood in urine, pain with urination or other Musc Musculoskeletal: Positive back pain and neck pain; negative body pain or other Skin/Breast Skin/Breast: Negative dry skin, itching, rash, unusual bruising, breast lump or other Neuro Neurological: Negative restless legs, confusion, weakness or other Psych Psychocological: Positive anxiety and hopelessness; negative abnormal sleep pattern, thoughts of hurting self/others or other Lymph Lymphatic: Negative easy bleeding, easy bruising, swollen lymph nodes or other Exam Const Constitutional: Positive conversant, cooperative, in no acute respiratory distress, well developed, well nourished, good hygiene, ill appearing, obese and wearing supplemental oxygen Head Head: Positive normocephalic and atraumatic; negative cyanosis of lips/distal nose Eyes Eye: Positive clear conjunctiva and nystagmus; negative scleral abnormality Ears Ear: Positive hard of hearing and external ears normal; negative hearing normal Nose Nose: Positive external nose normal and no nasal discharge; negative epistaxis Mouth Mallampati Score: I: Mallampati Score Neck Neck: Positive normal visual inspection, full ROM and trachea midline; negative lymphadenopathy, JVD or tender Chest Wall Chest: Positive normal inspection of the chest and symmetric chest movement; negative increased A/P diameter Resp lung sounds: Positive wheezes, diminished, wheeze present on forced exhalation, increased work of breathing and normal expiratory time; negative use of accessory muscles Cardio Cardiac: Positive S1 normal and S2 normal; negative murmur, regular rhythm or regular rate GI GI: Positive normal to inspection, normal bowel sounds and obese; negative distended Genitourinary: Positive deferred [facility] Musculoskeletal: Positive ROM normal and using an assistive device for ambulation; negative kyphosis or scoliosis Skin Pulmonary Skin Exam: Positive intact and dermal atrophy; negative rash, lesion, ulcers, erythema or scaly Pulses Pulse: Yes pulses normal x4 extremities Extremities Extremities: No edema, No clubbing, Yes capillary refill normal, No cyanosis, No stasis dermatitis Neuro Neurologic: Yes conversant, Yes no focal neuro deficits, Yes cooperative, Yes normal cognition, Yes normal coordination, Yes understands questions, Yes normal concentration Lymph Lymphatic: No lymphadenopathy, No tenderness, No cervical adenopathy Psych Appearance: Positive grossly normal, eye contact and well kempt Mental Status: Positive mental status grossly normal Mood: Positive congruent mood Affect: Positive normal affect Coding Level of Care Code Off vis,est,level 3 Diagnoses COPD with acute exacerbation J44.1 09/19/17 0825 <Electronically signed by Brittany LAWSON> Date Brittany LAWSON Cosigner Signature: Date (if applicable) CC: Quique Mims MD PULMONARY VISIT REPORT Observed: 08/16/2017 Status: F Source: [place] 4:36 PM [facility] REPOSITORY [facility] of [address] [place] [address] OFFICE VISIT Date of Service: 08/16/17 MR#: [id number] Acct: [id number] Name: CAYLA CHISHOLM Rep #: [id number] : 1945 Provider: Brittany Parsons Age/Sex: 71/F Location: [facility] Status: Signed Assessment AND Plan 1. SEVEN (obstructive sleep apnea) G47.33 Status Chronic Plan The patient is using and benefiting from current CPAP therapy. No indication for titration study at this time. Keep previously scheduled routine follow- up with Dr. Robertson in October. 2. Pulmonary hypertension I27.20 Status Chronic Plan Continue to treat hypoxia, bolus to maintain saturations 90- 92%. Patient is understanding and agreeable. No additional testing at this time. Pulmonary stress test prior to follow-up with Dr. Robertson. 3. Chronic obstructive pulmonary disease, unspecified COPD type J44.9 Status Chronic Plan Continue current maintenance medications consisting of Dulera and as needed albuterol. Pulmonary function test to be repeated prior to the previously scheduled follow-up with Dr. Robertson. Pending results of the pulmonary function test may be appropriate to change inhalers. If the patient is in fact having a COPD she may benefit from an anticholinergic. She has not had multiple exacerbations, and inhaled corticosteroid may not be necessary. I will defer these decisions until after the PFT can be done and analyzed. Orders Orders: 4. Morbid obesity E66.01 Status Chronic Plan Complicates plan. The patient would like to initiate care with a new primary care provider. She has been referred to an internal medicine doctor. Plan Detail Other Orders Orders: Referrals: Other Medications New: Discontinued: HPI 3 M FU: Chief Complaint: dysnea on exertion HPI Comments Details: Patient presents the office today for routine follow- up on her COPD, chronic hypoxemic respiratory failure and obstructive sleep apnea. She is ambulatory, with the assistance of a walker, wearing nasal cannula oxygen and accompanied by her . The patient reports that she feels stable, she has not been to the emergency room for any respiratory illnesses. She has not required antibiotics or prednisone since her last office visit. She continues maintenance with Dulera 2 puffs twice daily and her albuterol nebulizer which is used 2-3 times per day. She denies any medication side effects such as sore throat or thrush. She does report rinsing her mouth out after each use of Dulera. She continues to have dyspnea on exertion. She denies any wheezing, cough, chest tightness or palpitations. She denies any fever or chills. She denies any sputum production or hemoptysis. She reports using her CPAP all night. She states that she is unable to sleep without it. Compliance report has been reviewed and shows 100% compliance over the past 30 days. Typical use is 10 hours and 44 minutes daily. Current settings are 9 cm of water, current AHI is 0.5 events per hour. Leaks do not appear to be an issue. The patient reports feeling rested in the morning. She continues to take a nap almost daily. She does admit that she uses her CPAP for naps. She denies snoring through the mask. She denies dry mouth. Reports having a muscle pain in her left back area. The pain is worse with certain left shoulder arm movements and as well as breathing a certain way. She occasionally uses Tylenol which relieves her pain. She does believe this is a muscle pain. She continues compliance with oxygen, typically requiring 3 L/min at all times. She does have a pulse oximeter at home and checks her oxygen saturations randomly. She reports that she is able to maintain a 90% saturation. Intake Vital Signs08/16/17 Height 5 ft 5 in 08/16/17 Weight: 240 lb 08/16/17 Body Mass Index (BMI) 39.9 Intake Visit Reasons: 3 M FU [facility] Vendor: [facility] Allergies labetalol Allergy (Verified 08/10/17 10:14) Unknown pitavastatin [From Livalo] Allergy (Verified 08/10/17 10:14) Other simvastatin [From Zocor] Allergy (Verified 08/10/17 10:14) Other budesonide [From Symbicort] Adverse Reaction (Verified 08/10/17 10:14) Other formoterol [From Symbicort] Adverse Reaction (Verified 08/10/17 10:14) Other hydrocodone [From Vicodin] Adverse Reaction (Verified 08/10/17 10:14) Other Cbqvcpz-Foh-Uct Reductase Inhibitor Adverse Reaction (Verified 08/10/17 10:14) Other Medications ALPRAZolam [Xanax] 0.5 mg PO TID PRN PRN 10/11/16 [History Confirmed 08/16/17] Multivitamin [Daily Multiple Vitamin] 1 ea PO DAILY 10/11/16 [History Confirmed 08/16/17] Rivaroxaban [Xarelto] 20 mg PO DAILY #30 tab 10/17/16 [Rx Confirmed 08/16/17] Paroxetine HCl [Paxil] 40 mg PO QHS 05/01/17 [History Confirmed 08/16/17] BusPIRone [Buspar] 10 mg PO TID tab 05/17/17 [Rx Confirmed 08/16/17] Dextran 70/He-Cell [Tears Naturale, Artificial Tears] 2 drp EACH EYE Q2H PRN PRN bottle 05/17/17 [Rx Confirmed 08/16/17] Sotalol Hydrochloride [Betapace (Beta Rufina)] 120 mg PO BID #90 tab 05/17/17 [Rx Confirmed 08/16/17] acetaminophen 500 mg capsule 500 mg PO Q4H PRN 08/10/17 [History Confirmed 08/10/17] albuterol sulfate 2.5 mg/3 mL (0.083 %) solution for nebulization 2.5 mg INHALATION Q4H PRN #180 vial 08/16/17 [Rx Confirmed 08/16/17] amlodipine 10 mg tablet 5 mg PO DAILY tab 08/16/17 [History] cholecalciferol (vitamin D3) 50,000 unit capsule 50,000 unit PO QWEEK 08/16/17 [History Confirmed 08/16/17] dexlansoprazole 60 mg capsule,biphase delayed release 60 mg PO QDAY 08/16/17 [History Confirmed 08/16/17] furosemide 40 mg tablet 40 mg PO BID tab 08/16/17 [History Confirmed 08/16/17] potassium chloride 20 mEq oral packet 20 meq PO BID 08/16/17 [History Confirmed 08/16/17] PFSH Medical History Long-term use of high-risk medication (Chronic) SOB (shortness of breath) (Acute) Pulmonary HTN (Chronic) SEVEN (obstructive sleep apnea) (Chronic) Atrial fibrillation with RVR (Acute) Hypokalemia (Acute) DM2 (diabetes mellitus, type 2) (Chronic) HTN (hypertension) (Chronic) Anxiety (Chronic) CAD (coronary artery disease) (Chronic) HLD (hyperlipidemia) (Chronic) COPD (chronic obstructive pulmonary disease) (Chronic) PAF (paroxysmal atrial fibrillation) (Chronic) Morbid obesity (Chronic) Spastic colon (Chronic) Junctional rhythm (Acute) Sepsis (Acute) NSTEMI (non-ST elevated myocardial infarction) (Acute) CAD (coronary artery disease) (Chronic) Acute respiratory failure with hypoxia and hypercarbia (Acute) Acute exacerbation of chronic obstructive pulmonary disease (COPD) (Acute) Streptococcal pneumonia (Acute) Non-ST elevation myocardial infarction (NSTEMI), type 2 (Acute) Paroxysmal atrial fibrillation with rapid ventricular response (Acute) Debility (Acute) Hiatal hernia (Chronic) Panic disorder (Chronic) Surgical History History of tonsillectomy and adenoidectomy (Resolved) Social History Smoking Status: Never smoker alcohol intake: never substance use type: does not use Review of Systems Const CONSTITUTIONAL: Positive body ache, daytime sleepiness and fatigue; negative anorexia, chills, fever(s), night sweats, oral thrush, stops breathing during sleep, weight loss, sleeping in chair, weight loss, weight gain, frequent colds, seasonal allergies, other, headache(s) or orthopnea EETM Ear Nose Throat Mouth: Positive hearing normal; negative hard of hearing, hoarseness, dry mouth in morning, change in vision, itchy eyes, eye pain, swallowing Difficulty, ear pain, nose bleed, headache(s), mouth pain, nasal congestion, nasal discharge, post nasal drip, sinus pain, sinus pressure, sore throat or other Cardio Cardiovascular: Positive other (blood thinner); negative chest pain, chest pain at rest, chest pain with activity, irregular heart rhythm, edema, shortness of breath when lying down, palpitations or murmur Resp Respiratory: Positive as per HPI and shortness of breath shortness of breath: Positive with activity; negative pain with cough, wheezing, chest congestion, cough, chest tightness, pain on inspiration, inhalers, increase use of rescue inhalers, snoring, apnea or other Gastro Gastrointestional: Negative bloody stools, change in appetite, difficulty swallowing, reflux, hematemesis, melena stool, loose stool, constipation or other Genitourinary: Negative blood in urine, nocturia, pain with urination or other Musc Musculoskeletal: Positive back pain; negative body pain, neck pain or other Skin/Breast Skin/Breast: Negative dry skin, itching, rash, unusual bruising, breast lump or other Neuro Neurological: Negative restless legs, confusion, weakness or other Psych Psychocological: Positive anxiety; negative abnormal sleep pattern, thoughts of hurting self/others, hopelessness or other Lymph Lymphatic: Negative easy bleeding, easy bruising, swollen lymph nodes or other Exam Const Constitutional: Positive conversant, cooperative, in no acute respiratory distress, healthy appearing, well developed, well nourished, good hygiene, wearing supplemental oxygen and obese Head Head: Positive normocephalic and atraumatic; negative cyanosis of lips/distal nose Eyes Eye: Positive clear conjunctiva and nystagmus; negative scleral abnormality Ears Ear: Positive hearing normal and external ears normal; negative hard of hearing Nose Nose: Positive external nose normal and no nasal discharge; negative epistaxis Mouth Mouth: Positive oral mucosae normal, no lesions, dentures and crowded posterior oropharynx; negative post nasal drip, oral thrush present or malodorous breath Mallampati Score: III: Mallampati Score Neck Neck: Positive normal visual inspection, full ROM, trachea midline, thick neck and female neck greater than 37 cm (15 in); negative lymphadenopathy, JVD or tender Chest Wall Chest: Positive normal inspection of the chest and symmetric chest movement; negative increased A/P diameter Resp lung sounds: Positive diminished, clear to auscultation, normal expiratory time and normal respiratory effort; negative wheezes, wheeze present on forced exhalation, rhonchi, rales, dullness to percussion or use of accessory muscles Cardio Cardiac: Positive regular rate, regular rhythm, S1 normal and S2 normal; negative murmur GI GI: Positive normal to inspection, normal bowel sounds and obese; negative distended Genitourinary: Positive deferred Musc Musculoskeletal: Positive ROM normal and using an assistive device for ambulation; negative kyphosis or scoliosis Skin Pulmonary Skin Exam: Positive intact; negative rash, lesion, ulcers, erythema, scaly or dermal atrophy Pulses Pulse: Yes pulses normal x4 extremities Extremities Extremities: Yes edema Location: lower extremity location: Bilateral leg swelling: pitting pitting: trace, Yes capillary refill normal, No clubbing, No cyanosis, No stasis dermatitis Neuro Neurologic: Yes conversant, Yes no focal neuro deficits, Yes cooperative, Yes normal cognition, Yes normal coordination, Yes normal concentration, Yes understands questions Lymph Lymphatic: No lymphadenopathy, No tenderness, No cervical adenopathy, No axillary adenopathy Psych Appearance: Positive grossly normal, eye contact and well kempt Mental Status: Positive mental status grossly normal Mood: Positive congruent mood Affect: Positive normal affect Coding Level of Care Code Off vis,est,level 4 Diagnoses SEVEN (obstructive sleep apnea) G47.33 Pulmonary hypertension I27.20 Chronic obstructive pulmonary disease, unspecified COPD type J44.9 COPD type: unspecified COPD Morbid obesity E66.01 08/16/17 1636 <Electronically signed by Brittany LAWSON> Date Brittany LAWSON Cosigner Signature: Date (if applicable) CC: Quique Mims MD COMPREHENSIVE METABOLIC Collected: 07/27/2017 Status: F Source: [place] 1:53 PM [facility] REPOSITORY TYPE CODE TESTS RESULT OUT OF RANGE REFERENCE UNITS LAB L501.0100 70-110 mg/dL High GLU 136 Result Comment: Fasting Glucose result greater than or equal to 126 mg/dL suggests DIABETES MELLITUS per A.D.A. criteria. LAB L501.1000 7-18 mg/dL High BUN 19 LAB L501.1100 0.55-1.02 mg/dL Normal CREAT,SERUM 0.60 Result Comment: The validity of the calculated GFR AND GFRAA in patients over 70 years has not been determined. Clinical correlation is essential. LAB L501.1110 >60 mL/min Normal EST GFR 106 Result Comment: Non- GFR Calc LAB L501.1115 >60 mL/min Normal EST GFR - AA 128 Result Comment: GFR Calc LAB L501.1300 10-20 RATIO High BUN/CRE 31.8 LAB L501.1500 6.4-8.2 g/dL T Normal PROT 7.1 LAB L501.1800 3.4-5.0 g/dL Normal ALB 3.7 Result Comment: Please note revised Albumin AND Globulin reference range effective 2017. LAB L501.1950 2.2-4.2 g/dL Normal GLOB 3.4 LAB L501.2000 0.9-2.4 RATIO Normal A/G 1.1 LAB L501.2200 8.5-10.1 mg/dL Normal CA 8.7 LAB L501.4100 15-37 U/L Low AST 12 LAB L501.4305 45-117 U/L Normal ALK P 80 LAB L501.4405 12-78 U/L Normal ALT 21 LAB L501.4600 0.20-1.00 mg/dL Normal T BILI 0.20 LAB L501.5300 136-145 mmol/L Normal NA 142 LAB L501.5600 3.5-5.1 mmol/L Normal K 3.9 LAB L501.5900 98-107 mmol/L Normal CL 105 LAB L501.6100 21.0-32.0 mmol/L Normal CO2 30.0 LAB L501.6200 5-15 Normal GAP 7 Performed By: #### L500.4050, L501.9520 #### [facility] [address] [place], [place], [address] THYROID STIM HORMONE Collected: 07/27/2017 Status: F Source: [place] (TSH) 1:53 PM [facility] REPOSITORY TYPE CODE TESTS RESULT OUT OF RANGE REFERENCE UNITS LAB L501.9520 0.358-3.74 uIU/mL Normal TSH 1.76 Performed By: #### L500.4050, L501.9520 #### [facility] [address] [place], [place], [address] CBC W/DIFF, AUTOMATED Collected: 07/27/2017 Status: F Source: [place] 1:53 PM [facility] REPOSITORY TYPE CODE TESTS RESULT OUT OF RANGE REFERENCE UNITS LAB L100.1000 4.4-11.0 K/mm3 Normal WBC 7.8 LAB L100.1200 4.2-5.4 M/mm3 Normal RBC 4.48 LAB L100.1300 12.0-15.0 g/dl Normal HGB 12.5 LAB L100.1400 37-47 % Normal HCT 39.5 LAB L100.1500 81-99 fL Normal MCV 88.2 LAB L100.1600 27.0-32.0 pg Normal MCH 27.9 LAB L100.1700 32-36 g/gl Low MCHC 31.6 LAB L100.1810 11.6-14.6 % Normal RDW CV 13.5 LAB L100.1820 35.1-43.9 fl Normal RDW SD 42.5 LAB L100.1900 150-450 K/mm3 Normal PLT 261 LAB L100.2000 6.2-12.0 fl Normal MPV 11.7 LAB L100.2100 47-70 % Normal NEUT% 65.4 LAB L100.2200 19-41 % Normal LY% 23.7 LAB L100.2300 0-10 % Normal MONO% 9.6 LAB L100.2400 0-5 % Normal EO% 0.9 LAB L100.2500 0-1 % Normal BASO% 0.1 LAB L100.2550 0.0-0.9 % Normal IM GRAN % 0.300 Result Comment: IG% - Immature Granulocytes (promyelocytes, myelocytes and metamyelocytes) > 1% indicates that a LEFT SHIFT is Present. LAB L100.2620 2.0-7.7 X10 3/uL Normal Absolute Neut 5.1 LAB L100.2720 0.83-4.51 X10 3/ul Normal Absolute Lymph 1.85 Performed By: #### L100.0100 #### [facility] [address] [place], [address] VITAMIN D,25 HYDROXY Collected: 07/27/2017 Status: F Source: [place] 1:53 PM [facility] REPOSITORY TYPE CODE TESTS RESULT OUT OF RANGE REFERENCE UNITS LAB L506.1000 ng/mL Normal Vitamin D 17.4 25-OH Result Comment: Vitamin D 25(OH) Status Range Deficiency <20 ng/mL (50nmol/L) Insuffciency 20 - 30 ng/mL (50 - 75 nmol/L) Sufficiency 30 - 100 ng/mL (75 - 250 nmol/L) Toxicity >100 ng/mL (>250 nmol/L) Performed By: #### L506.1000 #### [facility] [address] [place], [address] ALLERGIES ALLERGIES DATE TYPE / CODE NAME / CODE REACTION SEVERITY SOURCE 07/06/2018 Drug Ysksxex-Vuj-Svx Other Unknown [place] Allergy/416 [facility] 707206([facility] Inhibitor/[id number] Hospital ED CT) 5(RXNORM) Repository 07/06/2018 Drug hydrocodone/[id number] Other Unknown [place] Allergy/416 554(RXNORM) [facility] 444251([facility] ED CT) Repository 07/06/2018 Drug labetalol/[id number] Unknown Unknown [place] Allergy/416 9(RXNORM) [facility] 414969([facility] ED CT) Repository 07/06/2018 Drug simvastatin/[id number] Other Unknown [place] Allergy/416 621(RXNORM) [facility] 506889([facility] ED CT) Repository 07/06/2018 Drug budesonide/[id number] Other Unknown [place] Allergy/416 14(RXNORM) [facility] 441315([facility] ED CT) Repository 07/06/2018 Drug formoterol/[id number] Other Unknown [place] Allergy/416 21(RXNORM) [facility] 682259([facility] ED CT) Repository 07/06/2018 Drug pitavastatin/F80718 Other Unknown [place] Allergy/416 3206(RXNORM) [facility] 306333([facility] ED CT) Repository 06/20/2018 DRUG ATORVASTATIN OTHER: SEE C [facility] INGREDI/419 CALCIUM Other [place] [address](SNOM Repository ED CT) 06/20/2018 Drug BOHSNHE-PEL-SNB OTHER: SEE C [facility] Class/50659 REDUCTASE Other [place] 1003(SNOMED INHIBITORS Repository CT) 02/13/2012 DRUG/730564 HYDROCODONE-ACETAMI HIVES [facility] 003(SNOMED NOPHEN Other [place] CT) Repository ENCOUNTERS ENCOUNTERS ADMIT/DISCHARGE ACCOUNT ADMITTING ENCOUNTER LOCATION SOURCE NUMBER CLASS 07/06/2018/07/06/20 [id number] Ambulatory BMSBuilding:B [place] [address] MS.[facility] Repository 07/04/2018/07/04/20 [id number] Ambulatory BMSBuilding:B [place] [address] MS.[facility] Repository 06/28/2018/06/28/20 [id number] Emergency [address] Hospital ing:ED Repository 06/24/2018/06/24/20 [id number] Emergency [address] Hospital ing:ED Repository 06/21/2018/06/21/20 [id number] Ambulatory BMSBuilding:B [place] [address] MS.[facility] Repository 06/20/2018/06/20/20 [id number] Emergency [address] Other [place] Repository 06/01/2018/06/01/20 [id number] Ambulatory BMSBuilding:B [place] [address] MS.[facility] Repository 06/01/2018 [id number] Ambulatory [facility] Hospital ing:LAB Repository 06/01/2018/06/01/20 [id number] Ambulatory BMSBuilding:B [place] [address] MS.[facility] Repository 05/22/2018 [id number] Ambulatory [facility] Hospital ing:OPBD Repository 05/16/2018/05/16/20 [id number] Ambulatory BMSBuilding:B [place] [address] MS.[facility] Hospital Repository 05/16/2018/05/16/20 [id number] Ambulatory [address] Hospital[facility] Hospital ing:ENRoom: Repository AC14 05/16/2018/05/16/20 [id number] Ambulatory BMSBuilding:B [place] [address] MS.CF.[facility] Hospital Repository 05/16/2018 [id number] Ambulatory BMSBuilding:W [facility] Hospital Repository 05/08/2018 [id number] Ambulatory [facility] HospitalBuild Hospital ing:OPBD Repository 05/01/2018/05/01/20 [id number] Ambulatory BMSBuilding:B Erika 18 [place].[facility] Repository 04/30/2018 [id number] Ambulatory [facility] HospitalBuild Hospital ing:LAB Repository 04/25/2018/04/25/20 [id number] Ambulatory BMSBuilding:B Langeloth 18 MS.[facility] Hospital Repository 04/19/2018 [id number] Ambulatory [facility] HospitalBuild Hospital ing:PSN Repository 03/30/2018/03/30/20 [id number] Ambulatory BMSBuilding:B Erika 18 MS.[facility] Hospital Repository 02/13/2018 [id number] Ambulatory BMS [facility] Hospital Repository 01/26/2018/01/27/20 [id number] Ambulatory BMSBuilding:B Langeloth 18 MS.[facility] Hospital Repository 12/29/2017/12/30/19 [id number] Ambulatory BMSBuilding:B Erika 18 MS.[facility] Hospital Repository 12/19/2017 [id number] Ambulatory [facility] HospitalBuild Hospital ing:CVS Repository 12/19/2017 [id number] Ambulatory BMSBuilding:W [facility] Hospital Repository 12/11/2017/12/12/19 [id number] Ambulatory BMSBuilding:B Erika 18 MS.[facility] Hospital Repository 12/11/2017 [id number] Ambulatory [facility] HospitalBuild Hospital ing:LAB.FUTUR Repository E 11/27/2017/11/28/19 [id number] Ambulatory BMSBuilding:B Erika 18 MS.[facility] Hospital Repository 10/30/2017 [id number] Ambulatory BMSBuilding:B Erika MS.[facility] Hospital Repository 10/30/2017/10/31/19 [id number] Ambulatory BMSBuilding:B Erika 18 MS.[facility] Hospital Repository 10/27/2017 [id number] Ambulatory BMSBuilding:B L[place] MS.[facility] Hospital Repository 10/25/2017/10/26/19 [id number] Ambulatory BMSBuilding:B Erika 18 [facility] Repository 10/25/2017 [id number] Ambulatory [facility] Hospital ing:LAB Repository 10/11/2017/10/12/19 [id number] Ambulatory BMSBuilding:B Erika 18 MS.[facility] Hospital Repository 10/11/2017 [id number] Ambulatory BMSBuilding:W [facility] Repository 10/10/2017 [id number] Ambulatory [facility] Hospitalild Hospital ing:PSN Repository 10/02/2017 [id number] Ambulatory [facility] Hospitalild Hospital ing:PSN Repository 10/02/2017 [id number] Ambulatory BMSBuilding:W [facility] Repository 09/27/2017 [id number] Ambulatory [facility] Hospitalild Hospital ing:LAB Repository 09/27/2017/09/28/19 [id number] Ambulatory BMSBuilding:B L[place] 18 MS.[facility] Repository 09/26/2017/09/27/19 [id number] Ambulatory BMSBuilding:B Erika 18 MS.[facility] Hospital Repository 09/19/2017/09/19/19 [id number] Ambulatory BMSBuilding:B L[place] 18 MS.[facility] Repository 08/16/2017/08/16/19 [id number] Ambulatory BMSBuilding:B Langeloth 18 MS.[facility] Repository 08/10/2017 [id number] Ambulatory [facility] Hospital Repository 07/27/2017 [id number] Ambulatory [facility] ing:POLAB3 Repository PAYERS PAYERS ENCOUNTER GUARANTOR PAYER SUBSCRIBER SOURCE 07/06/2018 CAYLA A Primary CAYLA A Erika [id number] Insurance:MEDICARE HOFSTETTERDOB: [address] [place] [facility] [id number] [place] [address]Wcx: Number: Repository [id number] (HP) Date:2018-06-01 07/06/2018 Secondary CAYLA A Erika Insurance:PHYSICIAN SHAEFSTETTERDOB: [facility] MUTUAL INS [facility] [id number] Hospital Number: Repository [id number] Date:8756-57-12RT[address] [address]CZ: 07/06/2018 Tertiary NOT GIVENUNK Erika Insurance:SELF PAY [facility] Number: Effective Repository Date:2018-07-05 07/04/2018 CAYLA A Primary CAYLA A Erika [id number] Insurance:MEDICARE HOFSTETTERDOB: [address] [facility] [id number] [place] [address]Wox: Number: Repository [id number] (HP) Date:2018-06-29 07/04/2018 Secondary CAYLA A Langeloth Insurance:PHYSICIAN MILENATESIDNEYERDOB: [facility] MUTUAL INS [facility] [id number] Hospital Number: Repository [id number] Date:9958-22-98MS[address] [address]VO: 07/04/2018 Tertiary NOT GIVENUNK Langeloth Insurance:SELF PAY [facility] Number: Effective Repository Date:2018-07-04 06/28/2018 CAYLA A Primary CAYLA A Erika [id number] Insurance:MEDICARE HOFSTETTERDOB: [address] [facility] [id number] [place] [address]Xdn: Number: Repository [id number] (HP) Date:2018-06-28 06/28/2018 Secondary CAYLA A Langeloth Insurance:PHYSICIAN SHAEFSTESIDNEYERDOB: Community MUTUAL INS [facility] [id number] Hospital Number: Repository [id number] Date:3082-54-16TK[address] [address]JH: 06/28/2018 Tertiary NOT GIVENUNK Langeloth Insurance:SELF PAY [facility] Number: Effective Repository Date:2018-06-28 06/24/2018 CAYLA A Primary CAYLA A Erika [id number] Insurance:MEDICARE HOFSTETTERDOB: [place] [address] [place] o[place] [id number] [place] [address]Nvq: Number: Repository [id number] () Date:2018-06-24 06/24/2018 Secondary CAYLA A Langeloth Insurance:PHYSICIAN LIZB: Community MUTUAL INS [facility] [id number] Hospital Number: Repository [id number] Date:0648-96-53MV[address] [address]AX: 06/24/2018 Tertiary NOT GIVENUNK Langeloth Insurance:SELF PAY [facility] Number: Effective Repository Date:2018-06-24 06/21/2018 CAYLA A Primary CAYLA A Erika [id number] Insurance:MEDICARE HOFSTETTERDOB: [place] [address] olicy [id number] [place] [address]Emb: Number: Repository [id number] () Date:2018-06-21 06/21/2018 Secondary CAYLA A Erika Insurance:PHYSICIAN HOABEERDOB: Community MUTUAL INS [facility] [id number] Hospital Number: Repository [id number] Date:1885-96-25JH [address] [address]VT: 06/21/2018 Tertiary NOT GIVENUNK Langeloth Insurance:SELF PAY [facility] Number: Effective Repository Date:2018-06-21 06/01/2018 CAYLA A Primary CAYLA A Langeloth [id number] Insurance:MEDICARE HOFSTETTERDOB: [place] [address] [place] [facility] [id number] Indian Medical Center [address]Wbx: Number: Repository [id number] (HP) Date:2018-05-31 06/01/2018 Secondary CAYLA A Erika Insurance:PHYSICIAN SOFIAERDOB: Community MUTUAL INS [facility] [id number] Hospital Number: Repository [id number] Date:3854-21-61LS[address] [address]NT: 06/01/2018 Tertiary NOT GIVENUNK Erika Insurance:SELF PAY [facility] Number: Effective Repository Date:2018-06-01 06/01/2018 CAYLA A Primary CAYLA A Langeloth [id number] Insurance:MEDICARE HOFSTETTERDOB: Community [address] [facility] [id number] Indian Medical Center [address]Glo: Number: Repository [id number] (HP) Date:2018-06-01 06/01/2018 Secondary CAYLA A Langeloth Insurance:PHYSICIAN LIZB: Community MUTUAL INS [facility] [id number] Hospital Number: Repository [id number] Date:0462-42-41KT[address] [address]RU: 06/01/2018 Tertiary NOT GIVENUNK Erika Insurance:SELF PAY [facility] Number: Effective Repository Date:2018-06-01 06/01/2018 CAYLA A Primary CAYLA A Erika [id number] Insurance:MEDICARE HOFSTETTERDOB: [place] [address] [facility] [id number] [place] [address]Vru: Number: Repository [id number] (HP) Date:2018-03-30 06/01/2018 Secondary CAYLA A Erika Insurance:PHYSICIAN LIZB: Community [facility] [id number] Hospital Number: Repository [id number] Date:6630-48-21TR [address] [place] [address]SC: 06/01/2018 Tertiary NOT GIVENUNK Erika Insurance:SELF PAY [facility] Number: Effective Repository Date:2018-06-01 05/22/2018 CAYLA A Primary CAYLA A Erika [id number] Insurance:MEDICARE HOFSTETTERDOB: [place] [address] [facility] [id number] [place] [address]Udd: Number: Repository [id number] (HP) Date:2018-05-08 05/22/2018 Secondary CAYLA A Langeloth Insurance:PHYSICIAN LIZB: Community MUTUAL INS [facility] [id number] Hospital Number: Repository [id number] Date:9074-10-77ZO [address] [place] [address]BL: 05/22/2018 Tertiary NOT GIVENUNK Erika Insurance:SELF PAY [facility] Number: Effective Repository Date:2018-05-08 05/16/2018 CAYLA A Primary CAYLA A Erika [id number] Insurance:MEDICARE HOFSTETTERDOB: [place] [address] [facility] [id number] [place] [address]Qae: Number: Repository [id number] (HP) Date:2018-05-16 05/16/2018 Secondary CAYLA A Langeloth Insurance:PHYSICIAN CAROLINEDOB: Community [facility] [id number] Hospital Number: Repository [id number] Date:4505-90-23ON [address] [place] [address]VU: 05/16/2018 Tertiary NOT GIVENUNK Erika Insurance:SELF PAY [facility] Number: Effective Repository Date:2018-05-16 05/16/2018 CAYLA A Primary CAYLA A Erika [id number] Insurance:MEDICARE HOFSTETTERDOB: [place] [address] [facility] [id number] [place] [address]Rdq: Number: Repository [id number] (HP) Date:2018-04-30 05/16/2018 Secondary CAYLA [place] Langeloth Insurance:PHYSICIAN HOFSTESIDNEYERDOB: Community MUTUAL INS [facility] [id number] Hospital Number: Repository [id number] Date:7690-77-86DQ [address] [address]YI: 05/16/2018 Tertiary NOT GIVENUNK Langeloth Insurance:SELF PAY [facility] Number: Effective Repository Date:2018-04-30 05/16/2018 CAYLA A Primary CAYLA A Langeloth [id number] Insurance:MEDICARE HOFSTETTERDOB: Community [facility] [place] [facility] [id number] Indian Medical Center [address]Clq: Number: Repository [id number] (HP) Date:2018-04-30 05/16/2018 Secondary CAYLA A Langeloth Insurance:PHYSICIAN CAROLINEDOB: Community MUTUAL INS [facility] [id number] Hospital Number: Repository [id number] Date:6857-41-20XX [address] [address]FX: 05/16/2018 Tertiary NOT GIVENUNK Erika Insurance:SELF PAY [facility] Number: Effective Repository Date:2018-05-16 05/16/2018 CAYLA A Primary CAYLA A Erika [id number] Insurance:MEDICARE HOFSTETTERDOB: [place] [address] [facility] [id number] Indian Medical Center [address]Hic: Number: Repository [id number] (HP) Date:2018-04-30 05/16/2018 Secondary CAYLA A Langeloth Insurance:PHYSICIAN HOFSTETTERDOB: Community MUTUAL INS [facility] [id number] Hospital Number: Repository [id number] Date:2164-14-07AE [address] [address]NA: 05/16/2018 Tertiary NOT GIVENUNK Erika Insurance:SELF PAY [facility] Number: Effective Repository Date:2018-05-16 05/08/2018 CAYLA A Primary CAYLA A Erika [id number] Insurance:MEDICARE HOFSTETTERDOB: [place] [address] [facility] [id number] Indian Medical Center [address]Sxm: Number: Repository [id number] (HP) Date:2018-03-30 05/08/2018 Secondary CAYLA A Langeloth Insurance:PHYSICIAN LIZB: Community [facility] [id number] Hospital Number: Repository [id number] Date:1056-27-37MK[address] [address]ZG: 05/08/2018 Tertiary NOT GIVENUNK Erika Insurance:SELF PAY [facility] Number: Effective Repository Date:2018-03-30 05/01/2018 Alex Primary CAYLA A Erika [id number] Insurance:MEDICARE HOFSTETTERDOB: Community [address] [place], [place] [address], PART A [facility] [id number] Indian Medical Center [address]Vpn: Number: Repository [id number] (HP) Date:2017-10-25 05/01/2018 Secondary CAYLA A Langeloth Insurance:PHYSICIAN LIZB: [facility] MUTUAL INS [facility] [id number] Hospital Number: Repository [id number] Date:9260-36-88ID[address] [address]NK: 05/01/2018 Tertiary NOT GIVENUNK Langeloth Insurance:SELF PAY [facility] Number: Effective Repository Date:2018-04-17 04/30/2018 CAYLA A Primary CAYLA A Langeloth [id number] Insurance:MEDICARE HOFSTETTERDOB: [place] [address] [facility] [id number] Indian Medical Center [address]Sdi: Number: Repository [id number] (HP) Date:2018-04-30 04/30/2018 Secondary CAYLA A Erika Insurance:PHYSICIAN CAROLINEDOB: Community [facility] [id number] Hospital Number: Repository [id number] Date:7953-63-34AM [address] [place] [address]CP: 04/30/2018 Tertiary NOT GIVENUNK Erika Insurance:SELF PAY [facility] Number: Effective Repository Date:2018-04-30 04/25/2018 CAYLA A Primary CAYLA A Langeloth [id number] Insurance:MEDICARE HOFSTETTERDOB: [place] [address] [facility] [id number] [place] [address]Gqs: Number: Repository [id number] (HP) Date:2018-04-10 04/25/2018 Secondary CAYLA A Langeloth Insurance:PHYSICIAN LIZB: Community MUTUAL INS [facility] [id number] Hospital Number: Repository [id number] Date:1450-20-58PU [address] [place] [address]RM: 04/25/2018 Tertiary NOT GIVENUNK Erika Insurance:SELF PAY [facility] Number: Effective Repository Date:2018-04-25 04/19/2018 CAYLA A Primary CAYLA A Erika [id number] Insurance:MEDICARE HOFSTETTERDOB: [place] [address] [facility] [id number] Indian Medical Center [address]Jgq: Number: Repository [id number] (HP) Date:2018-04-17 04/19/2018 Secondary CAYLA A Erika Insurance:PHYSICIAN SOFIAERDOB: Community MUTUAL INS [facility] [id number] Hospital Number: Repository [id number] Date:7276-46-93JC [address] [place] [address]FU: 04/19/2018 Tertiary NOT GIVENUNK Erika Insurance:SELF PAY [facility] Number: Effective Repository Date:2018-04-17 03/30/2018 CAYLA A Primary CAYLA A Erika [id number] Insurance:MEDICARE HOFSTETTERDOB: [place] [address] [facility] [id number] [place] [address]Wqj: Number: Repository [id number] (HP) Date:2018-01-26 03/30/2018 Secondary CAYLA A Erika Insurance:PHYSICIAN SOFIAERDOB: Community MUTUAL INS [facility] [id number] Hospital Number: Repository [id number] Date:6917-01-74JM [address] [address]RX: 03/30/2018 Tertiary NOT GIVENUNK Langeloth Insurance:SELF PAY [facility] Number: Effective Repository Date:2018-03-30 02/13/2018 CAYLA A Primary CAYLA A Langeloth [id number] Insurance:MEDICARE HOFSTETTERDOB: [place] [address] [facility] [id number] Indian Medical Center [address]Wmn: Number: Repository [id number] (HP) Date:2018-02-13 02/13/2018 Secondary CAYLA A Langeloth Insurance:PHYSICIAN LIZB: Community [facility] [id number] Hospital Number: Repository [id number] Date:7763-45-43VI [address] [place] [address]OF: 02/13/2018 Tertiary NOT GIVENUNK Langeloth Insurance:SELF PAY [facility] Number: Effective Repository Date:2018-02-13 01/26/2018 CAYLA A Primary CAYLA A Langeloth [id number] Insurance:MEDICARE HOFSTETTERDOB: [place] [address] [facility] [id number] Indian Medical Center [address]Gny: Number: Repository [id number] (HP) Date:2017-12-11 01/26/2018 Secondary CAYLA A Langeloth Insurance:PHYSICIAN SOFIAERDOB: Community [facility] [id number] Hospital Number: Repository [id number] Date:5840-08-00OD [address] [address]PJ: 01/26/2018 Tertiary NOT GIVENUNK Langeloth Insurance:SELF PAY [facility] Hospital Number: Effective Repository Date:2018-01-15 12/29/2017 CAYLA A Primary CAYLA A Langeloth [id number] Insurance:MEDICARE HOFSTETTERDOB: Community [facility] [place] [facility] [id number] Indian Medical Center [address]Dgn: Number: Repository [id number] (HP) Date:2018-01-05 12/29/2017 Secondary CAYLA A Erika Insurance:PHYSICIAN LIZB: Community MUTUAL INS [facility] [id number] Hospital Number: Repository [id number] Date:7195-91-87GV [address] [address]IU: 12/29/2017 Tertiary NOT GIVENUNK Langeloth Insurance:SELF PAY [facility] Number: Effective Repository Date:2018-01-05 12/19/2017 CAYLA A Primary CAYLA A Erika [id number] Insurance:MEDICARE HOFSTETTERDOB: [address] [facility] [id number] Indian Medical Center [address]Zrd: Number: Repository [id number] (HP) Date:2017-12-11 12/19/2017 Secondary CAYLA A Erika Insurance:PHYSICIAN LIZB: [facility] MUTUAL INS [facility] [id number] Hospital Number: Repository [id number] Date:3622-96-92FD [address] [address]CZ: 12/19/2017 Tertiary NOT GIVENUNK Langeloth Insurance:SELF PAY [facility] Number: Effective Repository Date:2017-12-11 12/19/2017 CAYLA A Primary CAYLA A Erika [id number] Insurance:MEDICARE HOFSTETTERDOB: [address] [place] [facility] [id number] Indian Medical Center [address]Sgn: Number: Repository [id number] (HP) Date:2017-12-11 12/19/2017 Secondary CAYLA A Erika Insurance:PHYSICIAN LIZB: Community MUTUAL INS [facility] [id number] Hospital Number: Repository [id number] Date:8394-10-19PD [address] [place] [address]TI: 12/19/2017 Tertiary NOT GIVENUNK Erika Insurance:SELF PAY [facility] Number: Effective Repository Date:2017-12-19 12/11/2017 [place] CAYLA A Langeloth [id number] Insurance:MEDICARE HOFSTETTERDOB: [place] [address] [facility] [id number] [place] [address]Ium: Number: Repository [id number] (HP) Date:2017-10-11 12/11/2017 Secondary CAYLA A Erika Insurance:PHYSICIAN LIZB: Community MUTUAL INS [facility] [id number] Hospital Number: Repository [id number] Date:3527-09-14PO [address] [address]MV: 12/11/2017 Tertiary NOT GIVENUNK L[place]oth Insurance:SELF PAY [facility] Number: Effective Repository Date:2017-12-08 12/11/2017 [place] Primary CAYLA A Langeloth [id number] Insurance:MEDICARE HOFSTETTERDOB: [place] [address] [place] [facility] [id number] Indian Medical Center [address]Xrg: Number: Repository [id number] (HP) Date:2017-10-25 12/11/2017 Secondary CAYLA A Erika Insurance:PHYSICIAN LIZB: Community [facility] [id number] Hospital Number: Repository [id number] Date:5550-15-83ON [address] [address]IP: 12/11/2017 Tertiary NOT GIVENUNK L[place]oth Insurance:SELF PAY [facility] Number: Effective Repository Date:2017-10-25 11/27/2017 [place] Primary CAYLA A Langeloth [id number] Insurance:MEDICARE HOFSTETTERDOB: [place] [address] [place] [facility] [id number] [place] [address]Vec: Number: Repository [id number] (HP) Date:2017-11-27 11/27/2017 Secondary CAYLA A Erika Insurance:PHYSICIAN SOFIAERDOB: Community MUTUAL INS [facility] [id number] Hospital Number: Repository [id number] Date:8431-99-48MM [address] [address]UM: 11/27/2017 Tertiary NOT GIVENUNK Erika Insurance:SELF PAY [facility] Number: Effective Repository Date:2017-11-27 10/30/2017 Alex Primary CAYLA [place] Erika [id number] Insurance:MEDICARE HOFSTETTERDOB: Community [address] PART A [facility] [id number] Number[place] Repository [id number]: [id number] [phone] (HP) Date:2017-07-07 10/30/2017 Secondary CAYLA A Erika Insurance:PHYSICIAN CAROLINEDOB: Community MUTUAL INS [facility] [id number] Hospital Number: Repository [id number] Date:4892-73-27BA [address] [place] [address]RO: 10/30/2017 Tertiary NOT GIVENUNK Erika Insurance:SELF PAY [facility] Number: Effective Repository Date:2017-07-07 10/30/2017 [place] Primary CAYLA A Langeloth [id number] Insurance:MEDICARE HOFSTETTERDOB: [facility] [address] [facility], PART A [facility] [id number] Indian Medical Center [address]Qgn: Number: Repository [id number] (HP) Date:2017-08-26 10/30/2017 Secondary CAYLA A Erika Insurance:PHYSICIAN SOFIAERDOB: Community MUTUAL INS [facility] [id number] Hospital Number: Repository [id number] Date:9927-36-47CV [address] [address]ON: 10/30/2017 Tertiary NOT GIVENUNK Erika Insurance:SELF PAY [facility] Hospital Number: Effective Repository Date:2017-10-30 10/27/2017 [place] Primary CAYLA A Langeloth [id number] Insurance:MEDICARE HOFSTETTERDOB: [place] [address] [place] [facility] [id number] Indian Medical Center [address]Xbq: Number: Repository [id number] (HP) Date:2017-10-27 10/27/2017 Secondary CAYLA A Langeloth Insurance:PHYSICIAN LIZB: Community MUTUAL INS COP[facility] [id number] Hospital Number: Repository [id number] Date:6886-63-02VB [address] [address]HN: 10/27/2017 Tertiary NOT GIVENUNK Erika Insurance:SELF PAY [facility] Number: Effective Repository Date:2017-10-27 10/25/2017 [place] Primary CAYLA A Erika [id number] Insurance:MEDICARE HOFSTETTERDOB: [place] [address] [place] [facility] [id number] Indian Medical Center [address]Tus: Number: Repository [id number] (HP) Date:2017-07-03 10/25/2017 Secondary CAYLA A Erika Insurance:PHYSICIAN LIZB: Community MUTUAL INS [facility] [id number] Hospital Number: Repository [id number] Date:0311-37-33LM [address] [address]NK: 10/25/2017 Tertiary NOT GIVENUNK [place] Insurance:SELF PAY [facility] Number: Effective Repository Date:2017-10-20 10/25/2017 [place] Primary CAYLA A Erika [id number] Insurance:MEDICARE HOFSTETTERDOB: [place] [address] [place] [facility] [id number] Indian Medical Center [address]Lkp: Number: Repository [id number] (HP) Date:2017-10-25 10/25/2017 Secondary CAYLA A Langeloth Insurance:PHYSICIAN SOFIAERDOB: Community MUTUAL INS [facility] [id number] Hospital Number: Repository [id number] Date:0338-21-73HA [address] [place] [address]AB: 10/25/2017 Tertiary NOT GIVENUNK [place] Insurance:SELF PAY [facility] Number: Effective Repository Date:2017-10-25 10/11/2017 [place] Primary CAYLA Mills Erika [id number] Insurance:MEDICARE HOFSTETTERDOB: Community Second PART A [facility] [id number] Number: Repository [id number]: 330 [id number] [phone] (HP) Date:2017-09-26 10/11/2017 Secondary CAYLA A Erika Insurance:PHYSICIAN CAROLINEDOB: Community MUTUAL INS [facility] [id number] Hospital Number: Repository [id number] Date:[id number] [address] [place] [address]RH: 10/11/2017 Tertiary NOT GIVENUNK [place] Insurance:SELF PAY [facility] Number: Effective Repository Date:2017-10-11 10/11/2017 [place] CAYLA [place] Langeloth [id number] Insurance:MEDICARE HOFSTETTERDOB: Community [address] [place] [address], PART A [facility] [id number] [address]Fck: Number: Repository [id number] () Date:2017-08-16 10/11/2017 Secondary CAYLA A Erika Insurance:PHYSICIAN SOFIAERDOB: Community MUTUAL INS [facility] [id number] Hospital Number: Repository [id number] Date:4640-36-07TT [address] [place] [address]ME: 10/11/2017 Tertiary NOT GIVENUNK Erika Insurance:SELF PAY [facility] Number: Effective Repository Date:2017-10-11 10/10/2017 [place] Primary CAYLA A Erika [id number] Insurance:MEDICARE HOFSTETTERDOB: Community Second PART A [facility] [id number] Number: Repository [id number]: 330 [id number] [phone] () Date:2017-08-16 10/10/2017 Secondary CAYLA A Langeloth Insurance:PHYSICIAN SHAEFSTESIDNEYERDOB: Community MUTUAL INS [facility] [id number] Hospital Number: Repository [id number] Date:[id number] [address]QQ: 10/10/2017 Tertiary NOT GIVENUNK [place] Insurance:SELF PAY [facility] Effective Rep[facility] Date:2017-08-16 10/02/2017 [place] Primary CAYLA [place] Langeloth [id number] Insurance:MEDICARE HOFSTETTERDOB: [address] [facility]y [id number] [address]Xuf: Number: Repository [id number] () Date:2012-10-22 10/02/2017 Secondary CAYLA A Erika Insurance:PHYSICIAN SOFIAERDOB: Community MUTUAL INS [facility] [id number] Hospital Number: Repository [id number] Date:0907-03-01SH[address] [address]DI: 10/02/2017 Tertiary NOT GIVENUNK [place] Insurance:SELF PAY [facility] Effective Rep[facility] Date:2017-04-26 10/02/2017 [place] Primary CAYLA Mills Langeloth [id number] Insurance:MEDICARE HOFSTETTERDOB: [address] [facility] [id number] [address]Gyy: Number: Repository [id number] () Date:2012-10-22 10/02/2017 Secondary CAYLA A Langeloth Insurance:PHYSICIAN SHAEFSTETTERDOB: Community MUTUAL INS [facility] [id number] Hospital Number: Repository [id number] Date:[id number] [address]EW: 10/02/2017 Tertiary NOT GIVENUNK [place] Insurance:SELF PAY [facility] Number: Effective Repository Date:2017-10-02 09/27/2017 [place] Primary CAYLA A Langeloth [id number] Insurance:MEDICARE HOFSTETTERDOB: Community Second PART A [facility] [id number] Number: Repository [id number]: 330 [id number] [phone] () Date:2017-09-27 09/27/2017 Secondary CAYLA A Erika Insurance:PHYSICIAN SOFIAERDOB: Community MUTUAL INS [facility] [id number] Hospital Number: Repository [id number] Date:9414-76-70MD [address] [address]YP: 09/27/2017 Tertiary NOT GIVENUNK [place] Insurance:SELF PAY [facility] Number: Effective Repository Date:2017-09-27 09/27/2017 [place] Primary CAYLA A Erika [id number] Insurance:MEDICARE HOFSTETTERDOB: Community Second PART A [facility] [id number], [place] Number: Repository [id number]: 330 [id number] [phone] () Date:2017-09-19 09/27/2017 Secondary CAYLA A Erika Insurance:PHYSICIAN SOFIAERDOB: [facility] [id number] [facility] Number: Repository [id number] Date:3794-55-74WF [address] [address]ZR: 09/27/2017 Tertiary NOT GIVENUNK Erika Insurance:SELF PAY [facility] Number: Effective Repository Date:2017-09-19 09/26/2017 [place] Primary CAYLA A Erika [id number] Insurance:MEDICARE HOFSTETTERDOB: Community Second PART A [facility] [id number] Number: Repository [address]Rsb: 330 [id number] [phone] () Date:2017-08-16 09/26/2017 Secondary CAYLA A Langeloth Insurance:PHYSICIAN SHAEFSTESIDNEYERDOB: Community MUTUAL INS [facility] [id number] Hospital Number: Repository [id number] Date:6289-46-73XO [address] [place] [address]WE: 09/26/2017 Tertiary NOT GIVENUNK [place] Insurance:SELF PAY [facility] Number: Effective Repository Date:2017-08-16 09/19/2017 Alex Primary CAYLA Mills Langeloth [id number] Insurance:MEDICARE HOFSTETTERDOB: Community Second PART A [facility] [id number], [place] Number: Repository [address]Nfy: 330 [id number] [phone] () Date:2017-09-18 09/19/2017 Secondary CAYLA A Langeloth Insurance:PHYSICIAN HOKARLIETESIDNEYERDOB: Community [facility] [id number] Hospital Number: Repository [id number] Date:3441-25-26YV [address] [place] [address]CD: 09/19/2017 Tertiary NOT GIVENUNK Erika Insurance:SELF PAY [facility] Number: Effective Repository Date:2017-09-18 08/16/2017 [place] Primary CAYLA A Erika [id number] Insurance:MEDICARE HOFSTETTERDOB: Community Second PART A [facility] [id number] [place] Number[facility] Repository [id number]: 330 [id number] [phone] () Date:2017-06-30 08/16/2017 Secondary CAYLA A Langeloth Insurance:PHYSICIAN HOAKRLIETESIDNEYERDOB: Community MUTUAL INS [employer] [id number] Hospital Number: Repository [id number] Date:2261-70-60WH [address] [place] [address]CL: 08/16/2017 Tertiary NOT GIVENUNK Erika Insurance:SELF PAY [facility] Number: Effective Repository Date:2017-06-30 08/10/2017 [place] Primary CAYLA A Erika [id number] Insurance:MEDICARE HOFSTETTERDOB: Community Second PART A [facility] [id number] [facility] [place] Number: Repository [id number]: 330 [id number] [phone] () Date:2017-08-10 08/10/2017 Secondary CAYLA Mills Langeloth Insurance:PHYSICIAN LIZB: Community [facility] [id number] Hospital Number: Repository [id number] Date:7951-50-27IZ [address] [place] [address]ZA: 08/10/2017 Tertiary NOT GIVENUNK Erika Insurance:SELF PAY [facility] Number: Effective Repository Date:2017-08-10 07/27/2017 Alex Primary CAYLA James [id number] Insurance:MEDICARE LIZB: [facility] Second PART A [facility] [id number], [place] Number: Repository [id number]: [phone] [id number] [phone] () Date:2017-07-27 07/27/2017 Secondary CAYLA Mills Langeloth Insurance:PHYSICIAN LIZB: Community MUTUAL INS [facility] [id number] Hospital Number: Repository [id number] Date:9087-84-59CQ [address] [place] [address]AO: 07/27/2017 Tertiary NOT GIVENUNK Erika Insurance:SELF PAY [facility] Effective Repository Date:2017-07-27
== END 2018-06-24 16:11 | disposition home or self-care (01) ==
PROVIDERS: Emergency Provider Emergency Medicine; Family Provider Internal Medicine; PCP Internal Medicine
DX: S63.501A Unspecified sprain of right wrist, initial encounter (principal); I48.91 Unspecified atrial fibrillation; Z79.02 Long term (current) use of antithrombotics/antiplatelets; W18.30XA Fall on same level, unspecified, initial encounter; Y93.89 Activity, other specified; Y92.238 Other place in hospital as the place of occurrence of the external cause; Y99.8 Other external cause status
CPT/HCPCS: 73110; 99283

== ENCOUNTER 2018-06-28 18:36 | Emergency (ER) | payer MEDICARE, OTHER, SELFPAY ==
[2018-06-28 18:38] VITALS: BP 156/80; PULSE 80; RESP 18; TEMP 36.8; O2SAT 93; BMI 38.6
[2018-06-28 18:50] VITALS: O2SAT 95
--- NOTE | 2018-06-28 19:00 | RAD_ITS ---
STUDY: X-RAY CHEST REASON FOR EXAM: Female, 72 years old. Tachycardia, SOB. TECHNIQUE: Portable chest. COMPARISON: 06/22/2017. FINDINGS: The lungs are clear and expanded. There is no demonstrated pleural abnormality. Normal size heart. Normal mediastinum and ricardo. Normal visualized pulmonary arteries. Normal visualized aortic arch and descending thoracic aorta. Normal visualized thoracic spine. Normal visualized ribs, clavicles, and shoulders. There is no demonstrated abnormality of the visualized soft tissue structures of the upper abdomen. RAD/Chest 1 View (Portable) IMPRESSION: No acute process. Electronically Signed: Joelle Cueto MD at 19:29 EST Tel , Service support ,
--- NOTE | 2018-06-28 19:00 | EKG12_ITS ---
Test Reason : Blood Pressure : / mmHG Vent. Rate : 071 BPM Atrial Rate : 071 BPM P-R Int : 142 ms QRS Dur : 080 ms QT Int : 436 ms P-R-T Axes : 068 037 034 degrees QTc Int : 473 ms Normal sinus rhythm Normal ECG Confirmed by NAHUM WOLFE, CRISTI ([id number]), web editor FARAZ JAMES ([id number]) on 07/02/2018 2:46:18 PM Referred By: SHANELL Confirmed By:CRISTI SIDHU MD
[2018-06-28] MEDS: 0.9% Normal Saline 1,000 ML 150 ML IV (19:21)
[2018-06-28 19:22] LABS: Absolute Lymphocyte Count 2.06 X10^3/ul (0.83-4.51); Absolute Neutrophil Count 5.7 X10^3/uL (2.0-7.7); Basophil# 0.01 X10^3/uL; Basophil% 0.1 % (0-1); Eosinophil# 0.14 X10^3/uL; Eosinophils% 1.6 % (0-5); Hematocrit 41.7 % (37-47); Hemoglobin 13.6 g/dl (12.0-15.0); Lymphocyte # 2.06 X10^3/ul (4.0); Lymphocyte % 23.9 % (19-41); Mean Corp Hgb Conc 32.6 g/gl (32-36); Mean Corpuscular Hgb 28.6 pg (27.0-32.0); Mean Corpuscular Volume 87.6 fL (81-99); Mean Platelet Vol. 10.6 fl (6.2-12.0); Monocyte# 0.73 X10^3/uL; Monocyte% 8.5 % (0-10); Neutrophil # 5.66 X10^3/uL (2.7-7.7); Neutrophil % 65.8 % (47-70); Platelet Count 302 K/mm3 (150-450); RBC Distribution Width SD 41.3 fl (35.1-43.9); Red Blood Count 4.76 M/mm3 (4.2-5.4); White Blood Count 8.6 K/mm3 (4.4-11.0)
[2018-06-28 19:29] LABS: POSITIVE COUNT NO; POSITIVE DIFFERENTIAL NO; POSITIVE MORPHOLOGY NO
[2018-06-28 19:37] LABS: Anion Gap 7 (5-15); BUN 17 mg/dL (7-18); BUN/Creat Ratio 27.5 RATIO (10-20); Calcium,Total 9.2 mg/dL (8.5-10.1); Chloride 104 mmol/L (98-107); Creatinine, Serum 0.62 mg/dL (0.55-1.02); EST Glomerular Filtration Rate 101 mL/min (>60); Est Glom Filt Rate - Afr Amer 122 mL/min (>60); Glucose 129 mg/dL (74-106); Magnesium 1.6 mg/dL (1.6-2.6); Potassium 3.6 mmol/L (3.5-5.1); Sodium Level 140 mmol/L (136-145)
--- NOTE | 2018-06-28 20:15 | ED.VISSUMM ---
- ER Visit Summary Date of Service: 06/28/18 Chief Complaint: [Tachycardia] History of Present Illness: The patient is a 72 F [presents the emergency department with complaint of racing heart that started around 5 PM. Patient states that she was making dinner when she noticed that her heart was racing. She denied any chest pain. Patient did not feel like she was short of breath but states that EMS felt that she appeared to be short of breath. Patient has a history of intermittent atrial fibrillation but she is not sure that that is the rhythm she was in. Patient felt like the tachycardia lasted about an hour. Patient has had some cold symptoms over the last couple of days with some sinus drainage and a mild cough. She denies any fevers. Patient has been compliant with her medications. Patient is on Xarelto and sotalol.] Physical Examination: [HEENT-PERRLA, EOMI. Cranial nerves II through XII grossly intact. TMs clear. Mucous membranes moist. No adenopathy. Cardiovascular-regular rate and rhythm without murmur or ectopy Lungs-clear to auscultation, chest wall stable without crepitus or subcu emphysema Abdomen-normoactive bowel sounds, soft, nontender, no rebound or rigidity, no peritoneal signs. Extremities-intact ?4, normal range of motion, normal pulses, atraumatic] Test Results: [EKG obtained arrival shows sinus rhythm with a ventricular rate of 71 bpm with no acute ST segment changes. CBC with differential is normal. Chemistries were normal. Magnesium was 1.6 and troponin was less than 0.015. Chest x-ray showed nothing acute.] I reviewed patient's prehospital EKG which is difficult to interpret and that the baseline is quite erratic however I do not see any distinct P waves. Patient had a narrow complex tachycardia with a ventricular rate of 143 bpm. I suspect the EKG likely shows A. fib flutter. Emergency Department Course and Treatment: [] Treatment Plan: [Patient case was discussed with Dr. Ezekiel Perez who is the patient's speaking unit assembler who asked that patient follow-up with our office but no further interventions were warranted at this time. Patient is comfortable with this plan.] Disposition: [Discharged home in stable condition] Impression: [Tachycardia] This note was generated with [employer] software. It may contain incorrect words, spelling, and punctuation that were not noted in review of the chart prior to signing ED Disposition - Plan for ED Patient: Chief Complaint: Shortness of Breath Referrals: Quique Mims MD [Primary Care Provider] -
--- NOTE | 2018-06-28 20:18 | ED.DCSUM_ITS ---
- ER Visit Summary Date of Service: 06/28/18 Chief Complaint: [Tachycardia] History of Present Illness: The patient is a 72 F [presents the emergency department with complaint of racing heart that started around 5 PM. Patient states that she was making dinner when she noticed that her heart was racing. She denied any chest pain. Patient did not feel like she was short of breath but states that EMS felt that she appeared to be short of breath. Patient has a history of intermittent atrial fibrillation but she is not sure that that is the rhythm she was in. Patient felt like the tachycardia lasted about an hour. Patient has had some cold symptoms over the last couple of days with some sinus drainage and a mild cough. She denies any fevers. Patient has been compliant with her medications. Patient is on Xarelto and sotalol.] Physical Examination: [HEENT-PERRLA, EOMI. Cranial nerves II through XII grossly intact. TMs clear. Mucous membranes moist. No adenopathy. Cardiovascular-regular rate and rhythm without murmur or ectopy Lungs-clear to auscultation, chest wall stable without crepitus or subcu emphysema Abdomen-normoactive bowel sounds, soft, nontender, no rebound or rigidity, no peritoneal signs. Extremities-intact ?4, normal range of motion, normal pulses, atraumatic] Test Results: [EKG obtained arrival shows sinus rhythm with a ventricular rate of 71 bpm with no acute ST segment changes. CBC with differential is normal. C hemistries were normal. Magnesium was 1.6 and troponin was less than 0.015. Chest x-ray showed nothing acute.] I reviewed patient's prehospital EKG which is difficult to interpret and that the baseline is quite erratic however I do not see any distinct P waves. Patient had a narrow complex tachycardia with a ventricular rate of 143 bpm. I suspect the EKG likely shows A. fib flutter. Emergency Department Course and Treatment: [] Treatment Plan: [Patient case was discussed with Dr. Ezekiel Perez who is the patient's group fitness manager who asked that patient follow-up with our office but no further interventions were warranted at this time. Patient is comfortable with this plan.] Disposition: [Discharged home in stable condition] Impression: [Tachycardia] This note was generated with [employer] software. It may contain incorrect words, spelling, and punctuation that were not noted in review of the chart prior to signing ED Disposition - Plan for ED Patient: Chief Complaint: Shortness of Breath Referrals: Quique Mims MD [Primary Care Provider] -
--- NOTE | 2018-06-28 20:18 | ED.DEP ---
ED Disposition - Plan for ED Patient: Chief Complaint: Shortness of Breath Instructions: ED Afib Referrals: Quique Mims MD [Primary Care Provider] - Ezekiel Perez MD [STAFF PHYSICIAN] - 3-5 Days
[2018-06-28 20:26] VITALS: BP 171/78; PULSE 66; RESP 14; O2SAT 96
== END 2018-06-28 20:42 | disposition home or self-care (01) ==
LOC: ED 19:47
PROVIDERS: Emergency Provider Emergency Medicine; Family Provider Internal Medicine; PCP Internal Medicine
DX: R00.0 Tachycardia, unspecified (principal); I48.0 Paroxysmal atrial fibrillation; I11.0 Hypertensive heart disease with heart failure; I50.9 Heart failure, unspecified; I25.10 Atherosclerotic heart disease of native coronary artery without angina pectoris; J44.9 Chronic obstructive pulmonary disease, unspecified; I27.20 Pulmonary hypertension, unspecified; E11.9 Type 2 diabetes mellitus without complications; Z79.02 Long term (current) use of antithrombotics/antiplatelets; Z79.51 Long term (current) use of inhaled steroids; Z79.84 Long term (current) use of oral hypoglycemic drugs; Z79.899 Other long term (current) drug therapy
CPT/HCPCS: 71045; 80048; 83735; 84484; 85025; 93005; 99285; J7030; A4216

== ENCOUNTER 2018-08-10 13:12 | Emergency (ER) | payer MEDICARE, OTHER, SELFPAY ==
[2018-07-06 09:39] VITALS: BMI 38.2
[2018-08-10 13:13] VITALS: BP 151/102; PULSE 150; RESP 22; TEMP 36.4; O2SAT 97; BMI 38.7
--- NOTE | 2018-08-10 13:44 | RAD_ITS ---
STUDY: X-RAY CHEST REASON FOR EXAM: Female, 72 years old. Atrial fibrillation. TECHNIQUE: Single AP portable view of the chest. COMPARISON: 06/28/2018. FINDINGS: The lungs are clear and expanded. There is no demonstrated pleural abnormality. Normal size heart. Normal mediastinum and ricardo. Normal visualized pulmonary arteries. Normal visualized aortic arch and descending thoracic aorta. Normal visualized thoracic spine. Normal visualized ribs, clavicles, and shoulders. There is no demonstrated abnormality of the visualized soft tissue structures of the upper abdomen. RAD/Chest 1 View (Portable) IMPRESSION: Normal x-ray examination of the chest. Electronically Signed: Flaco Williamson MD at 14:03 EST , Service support ,
--- NOTE | 2018-08-10 13:44 | EKG12_ITS ---
Test Reason : PALPS Blood Pressure : / mmHG Vent. Rate : 137 BPM Atrial Rate : 144 BPM P-R Int : 000 ms QRS Dur : 086 ms QT Int : 320 ms P-R-T Axes : 000 047 002 degrees QTc Int : 483 ms Atrial fibrillation with rapid ventricular response Abnormal ECG Confirmed by NAHUM WOLFE, CRISTI ([id number]), map editor GALILEO SINGLETARY ([id number]) on 08/13/2018 9:43:00 AM Referred By: SHANELL Confirmed By:CRISTI SIDHU MD
[2018-08-10] MEDS: dilTIAZem 25 MG/5 ML Vial 20 MG IV BOLUS (14:05)
[2018-08-10 14:17] LABS: Absolute Lymphocyte Count 1.88 X10^3/ul (0.83-4.51); Absolute Neutrophil Count 4.8 X10^3/uL (2.0-7.7); Basophil# 0.01 X10^3/uL; Basophil% 0.1 % (0-1); Eosinophil# 0.17 X10^3/uL; Eosinophils% 2.2 % (0-5); Hemoglobin 14.7 g/dl (12.0-15.0); Lymphocyte # 1.88 X10^3/ul (4.0); Lymphocyte % 24.9 % (19-41); Mean Corpuscular Hgb 28.5 pg (27.0-32.0); Mean Corpuscular Volume 89.1 fL (81-99); Mean Platelet Vol. 10.5 fl (6.2-12.0); Monocyte# 0.72 X10^3/uL; Monocyte% 9.5 % (0-10); Neutrophil # 4.77 X10^3/uL (2.7-7.7); Neutrophil % 63.2 % (47-70); POSITIVE COUNT NO; POSITIVE DIFFERENTIAL NO; POSITIVE MORPHOLOGY NO; Platelet Count 331 K/mm3 (150-450); RBC Distribution Width CV 12.7 % (11.6-14.6); Red Blood Count 5.16 M/mm3 (4.2-5.4); White Blood Count 7.6 K/mm3 (4.4-11.0)
[2018-08-10 14:20] VITALS: BP 113/83; PULSE 107; RESP 21; O2SAT 95
[2018-08-10 14:25] LABS: Anion Gap 10 (5-15); BUN 11 mg/dL (7-18); BUN/Creat Ratio 17.3 RATIO (10-20); Chloride 104 mmol/L (98-107); Creatinine, Serum 0.64 mg/dL (0.55-1.02); EST Glomerular Filtration Rate 98 mL/min (>60); Est Glom Filt Rate - Afr Amer 118 mL/min (>60); Glucose 137 mg/dL (74-106); Potassium 3.6 mmol/L (3.5-5.1); Sodium Level 140 mmol/L (136-145)
[2018-08-10 15:00] VITALS: PULSE 113; RESP 20; O2SAT 94
--- NOTE | 2018-08-10 15:37 | ED.VISSUMM ---
- ER Visit Summary Date of Service: 08/10/18 Chief Complaint: [Palpitations with history of atrial fibrillation] History of Present Illness: The patient is a 72 F [presents the emergency department with complaint of thinking that she is in atrial fibrillation. Patient states that she was just working around the house picking some things up when she began feeling very sweaty which is typically what happens when she has A. fib. Patient checked her pulse via pulse oximeter and noted that it was elevated and presents to the ER for evaluation. She denies any chest pain. Denies any significant dyspnea. She denies recent illness. Patient currently being evaluated by access liaison in [place] for possible need for ablation. Patient is wearing a event monitor. Patient is currently on Xarelto and has been compliant with her medications. Patient also on sotalol and Norvasc.] Physical Examination: [HEENT-PERRLA, EOMI. Cranial nerves II through XII grossly intact. TMs clear. Mucous membranes moist. No adenopathy. Cardiovascular-irregularly irregular and tachycardic. There is a 2 out of 6 systolic ejection murmur. Lungs-clear to auscultation, chest wall stable without crepitus or subcu emphysema Abdomen-normoactive bowel sounds, soft, nontender, no rebound or rigidity, no peritoneal signs. Extremities-intact ?4, normal range of motion, normal pulses, atraumatic] Test Results: EKG obtained showed atrial fibrillation with a rapid ventricular response with a rate of 137 bpm. CBC with differential was unremarkable. Chemistries unremarkable. Troponin was less than 0.015. Chest x-ray showed nothing acute.] Emergency Department Course and Treatment: [Patient received Cardizem 20 mg IV bolus. Patient converted to sinus rhythm. Patient without any complaints currently.] Treatment Plan: [We will plan to discuss case with patient's access liaison and assure follow-up. Patient is currently anticoagulated. Patient also following up with access liaison in [place]] Disposition: [Discharged home in stable condition] Impression: [Paroxysmal atrial fibrillation] This note was generated with [employer] software. It may contain incorrect words, spelling, and punctuation that were not noted in review of the chart prior to signing ED Disposition - Plan for ED Patient: Chief Complaint: Palpitations Referrals: Quique Mims MD [Primary Care Provider] -
--- NOTE | 2018-08-10 15:40 | ED.DCSUM_ITS ---
- ER Visit Summary Date of Service: 08/10/18 Chief Complaint: [Palpitations with history of atrial fibrillation] History of Present Illness: The patient is a 72 F [presents the emergency department with complaint of thinking that she is in atrial fibrillation. Patient states that she was just working around the house picking some things up when she began feeling very sweaty which is typically what happens when she has A. fib. Patient checked her pulse via pulse oximeter and noted that it was elevated and presents to the ER for evaluation. She denies any chest pain. Denies any significant dyspnea. She denies recent illness. Patient currently being evaluated by personalized living manager nurse in [place] for possible need for ablation. Patient is wearing a event monitor. Patient is currently on Xarelto and has been compliant with her medications. Patient also on sotalol and Norvasc.] Physical Examination: [HEENT-PERRLA, EOMI. Cranial nerves II through XII grossly intact. TMs clear. Mucous membranes moist. No adenopathy. Cardiovascular-irregularly irregular and tachycardic. There is a 2 out of 6 systolic ejection murmur. Lungs-clear to auscultation, chest wall stable without crepitus or subcu emphysema Abdomen-normoactive bowel sounds, soft, nontender, no rebound or rigidity, no peritoneal signs. Extremities-intact ?4, normal range of motion, normal pulses, atraumatic] Test Results: EKG obtained showed atrial fibrillation with a rapid ventricular response with a rate of 137 bpm. CBC with differential was unremarkable. Chemistries unremarkable. Troponin was less than 0.015. Chest x-ray showed nothing acute.] Emergency Department Course and Treatment: [Patient received Cardizem 20 mg IV bolus. Patient converted to sinus rhythm. Patient without any complaints currently.] Treatment Plan: [We will plan to discuss case with patient's personalized living manager nurse and assure follow-up. Patient is currently anticoagulated. Patient also following up with personalized living manager nurse in [place]] Disposition: [Discharged home in stable condition] Impression: [Paroxysmal atrial fibrillation] This note was generated with [employer] software. It may contain incorrect words, spelling, and punctuation that were not noted in review of the chart prior to signing ED Disposition - Plan for ED Patient: Chief Complaint: Palpitations Referrals: Quique Mims MD [Primary Care Provider] -
--- NOTE | 2018-08-10 15:40 | ED.DEP ---
ED Disposition - Plan for ED Patient: Chief Complaint: Palpitations Instructions: ED Afib Referrals: Quique Mims MD [Primary Care Provider] - Ezekiel Perez MD [STAFF PHYSICIAN] - As Needed
[2018-08-10 16:01] VITALS: BP 152/82; PULSE 90; RESP 18; O2SAT 94
--- OUTSIDE RECORDS SUMMARY | 2018-10-15 04:07 | XMS RPT_ITS ---
:1945 Author Organization OHIP Support Name Relationship Address Phone ALEX CHISHOLM Unavailable [address] + [place] [address] KRISTYN CHISHOLM Unavailable [address] + [place] [address] R Unavailable Unavailable Unavailable Alex Chisholm Unavailable Unavailable + ALEX CHISHOLM Unavailable [address] + [place] [address] KRISTYN CHISHOLM Unavailable [address] + [place] [address] R Unavailable Unavailable Unavailable ALEX CHISHOLM Unavailable [address] + [place] [address] KRISTYN CHISHOLM Unavailable [address] + [place] [address] R Unavailable Unavailable Unavailable ALEX CHISHOLM Unavailable [address] + [place] [address] KRISTYN CHISHOLM Unavailable [address] + [place] [address] R Unavailable Unavailable Unavailable ALEX CHISHOLM Unavailable [address] + [place] [address] KRISTYN CHISHOLM Unavailable [address] + [place] [address] R Unavailable Unavailable Unavailable ALEX CHISHOLM Unavailable [address] + [place] [address] KRISTYN CHISHOLM Unavailable [address] + [place] [address] R Unavailable Unavailable Unavailable ALEX CHISHOLM Unavailable [address] + [place] [address] HOKARLIETETTERKRISTYN Unavailable [address] + [place] [address] R Unavailable Unavailable Unavailable ALEX CHISHOLM Unavailable [address] + [place] [address] HOKARLIETETTERKRISTYN Unavailable [address] + [place] [address] R Unavailable Unavailable Unavailable ALEX CHISHOLM Unavailable [address] + [place] [address] HOFSTETTER, KRISTYN Unavailable [address] + [place] [address] R Unavailable Unavailable Unavailable ALEX CHISHOLM Unavailable [address] + [place] [address] HOKARLIETETTERKRISTYN Unavailable [address] + [place] [address] R Unavailable Unavailable Unavailable ALEX CHISHOLM Unavailable [address] + [place] [address] HOKARLIETETTERKRISTYN Unavailable [address] + [place] [address] R Unavailable Unavailable Unavailable ALEX CHISHOLM Unavailable [address] + [place] [address] MILENATETTERKRISTYN Unavailable [address] + [place] [address] R Unavailable Unavailable Unavailable ALEX CHISHOLM Unavailable [address] + [place] [address] MILENATETTERKRISTYN Unavailable [address] + [place] [address] R Unavailable Unavailable Unavailable ALEX CHISHOLM Unavailable [address] + [place] [address] MILENATETTERKRISTYN Unavailable [address] + [place] [address] R Unavailable Unavailable Unavailable ALEX CHISHLOM Unavailable [address] + [place] [address] KRISTYN CHISHOLM Unavailable [address] + [place] [address] R Unavailable Unavailable Unavailable ALEX CHISHOLM Unavailable [address] + [place] [address] HOFSTETTERKRISTYN Unavailable [address] + [place] [address] R Unavailable Unavailable Unavailable ALEX CHISHOLM Unavailable [address] + [place] [address] HOFSTETTERKRISTYN Unavailable [address] + [place] [address] R Unavailable Unavailable Unavailable ALEX CHISHOLM Unavailable [address] + [place] [address] HOFSTETTERKRISTYN Unavailable [address] + [place] [address] R Unavailable Unavailable Unavailable ALEX CHISHOLM Unavailable [address] + [place] [address] HOFSTETTERKRISTYN Unavailable [address] + [place] [address] R Unavailable Unavailable Unavailable ALEX CHISHOLM Unavailable [address] + [place] [address] HOFSTETTERKRISTYN Unavailable [address] + [place] [address] R Unavailable Unavailable Unavailable ALEX CHISHOLM Unavailable [address] + [place] [address] HOKARLIETETTERKRISTYN Unavailable [address] + [place] [address] R Unavailable Unavailable Unavailable ALEX CHISHOLM Unavailable [address] + [place] [address] MILENATETTERKRISTYN Unavailable [address] + [place] [address] R Unavailable Unavailable Unavailable ALEX CHISHOLM Unavailable [address] + [place] [address] HOKARLIETETTERKRISTYN Unavailable [address] + [place] [address] R Unavailable Unavailable Unavailable ALEX CHISHOLM Unavailable [address] + [place] [address] KRISTYN CHISHOLM Unavailable [address] + [place] [address] R Unavailable Unavailable Unavailable ALEX CHISHOLM Unavailable [address] + [place] [address] KRISTYN CHISHOLM Unavailable [address] + [place] [address] R Unavailable Unavailable Unavailable ALEX CHISHOLM Unavailable [address] + [place] [address] KRISTYN CHISHOLM Unavailable [address] + [place] [address] R Unavailable Unavailable Unavailable ALEX CHISHOLM Unavailable [address] + [place] [address] KRISTYN CHISHOLM Unavailable [address] + [place] [address] R Unavailable Unavailable Unavailable ALEX CHISHOLM Unavailable [address] + [place] [address] KRISTYN CHISHOLM Unavailable [address] + [place] [address] R Unavailable Unavailable Unavailable ALEX CHISHOLM Unavailable [address] + [place] [address] KRISTYN CHISHOLM Unavailable [address] + [place] [address] R Unavailable Unavailable Unavailable ALEX CHISHOLM Unavailable [address] + [place] [address] KRISTYN CHISHOLM Unavailable [address] + [place] [address] R Unavailable Unavailable Unavailable ALEX CHISHOLM Unavailable [address] + [place] [address] MILENATEKRISTYN SILVA Unavailable [address] + [place] [address] R Unavailable Unavailable Unavailable ALEX CHISHOLM Unavailable [address] + [place] [address] HOKARLIETETTERKRISTYN Unavailable [address] + [place] [address] R Unavailable Unavailable Unavailable ALEX CHISHOLM Unavailable [address] + [place] [address] HOKARLIETETTERKRISTYN Unavailable [address] + [place] [address] R Unavailable Unavailable Unavailable ALEX CHISHOLM Unavailable [address] + [place] [address] HOFSTETTER, KRISTYN Unavailable [address] + [place] [address] R Unavailable Unavailable Unavailable ALEX CHISHOLM Unavailable [address] + [place] [address] HOKARLIETESIDNEYERKRISTYN Unavailable [address] + [place] [address] R Unavailable Unavailable Unavailable ALEX CHISHOLM Unavailable [address] + [place] [address] HOKARLIETETTERKRISTYN Unavailable [address] + [place] [address] R Unavailable Unavailable Unavailable ALEX CHISHOLM Unavailable [address] + [place] [address] MILENATESIDNEYERKRISTYN Unavailable [address] + [place] [address] R Unavailable Unavailable Unavailable ALEX CHISHOLM Unavailable [address] + [place] [address] MILENATETTERKRISTYN Unavailable [address] + [place] [address] R Unavailable Unavailable Unavailable ALEX CHISHOLM Unavailable [address] + [place] [address] MILENATETTERKRISTYN Unavailable [address] + [place] [address] R Unavailable Unavailable Unavailable ALXE CHISHOLM Unavailable [address] + [place] [address] KRISTYN CHISHOLM Unavailable [address] + [place] [address] R Unavailable Unavailable Unavailable ALEX CHISHOLM Unavailable [address] + [place] [address] KRISTYN CHISHOLM Unavailable [address] + [place] [address] R Unavailable Unavailable Unavailable ALEX CHISHOLM Unavailable [address] + [place] [address] KRISTYN CHISHOLM Unavailable [address] + [place] [address] R Unavailable Unavailable Unavailable Care Team Providers Name Role Phone PROVIDER, UNKNOWN Attending Unavailable Kash Tierney Attending Unavailable PROVIDER, UNKNOWN Referring Unavailable Ciryak, Christopher Primary Care Unavailable Leon Joy Attending Unavailable Oleghe, Efewongbe Referring Unavailable Oleghe, Efewongbe Attending Unavailable Oleghe, Efewongbe Referring Unavailable [place]he, Efewongbe Primary Care Unavailable Palomo Hill Attending Unavailable Ezekiel Perez Attending Unavailable Benedict, Gaetano [...] [place], Efewongbe Primary Care Unavailable Timmy Ndiaye [facility] Attending Unavailable Benedict, Gaetano Chi Referring Unavailable Toan Arceo Attending Unavailable Brittany Parsons Referring Unavailable Arya Robertson D.O. Attending Unavailable Arya Robertson D.O. Referring Unavailable Timmy Ndiaye [facility]-C Attending Unavailable Timmy Ndiaye [facility]-C Referring Unavailable Oleghe, Efewongbe Primary Care Unavailable Timmy Ndiaye [facility]-C Attending Unavailable Timmy Ndiaye [facility]-C Referring Unavailable [place]he, Efewongbe Primary Care Unavailable [...] Efewongbe Attending Unavailable [place], Efewongbe Referring Unavailable Robotham, Promise Attending Unavailable [place]he, Efewongbe Attending Unavailable [place], Efewongbe Referring Unavailable [place]leghe, Efewongbe Attending Unavailable [place]he, Efewongbe Referring Unavailable [place]leghe, Efewongbe Primary Care Unavailable Leon Joy Attending Unavailable [place], Efewongbe Referring Unavailable Donte Lutz Attending Unavailable [place], Efewongbe Referring Unavailable NilayvanceEzekiel leon Attending Unavailable [place], Efewongbe Referring Unavailable [place]he, Efewongbe Primary Care Unavailable Isak Davis Attending Unavailable [place], Efewongbe Primary Care Unavailable Palomo Hill Attending Unavailable PROBLEMS PROBLEMS DATE TYPE CONDITION / CODE ATTENDING STATUS SOURCE 07/06/2018 Unknown E87.6 - Hypokalemia / [place], Active [place] E87.6(ICD-10) [facility] Hospital Repository 06/29/2018 Unknown M25.531 - Pain in Isak Davis Active [place] right wrist / [facility] M25.531(ICD-10) Hospital Repository 06/22/2018 Unknown I10 - Essential MoodEzekiel son Active [place] (primary) [facility] hypertension / Hospital I10(ICD-10) Repository 06/22/2018 Unknown I48.0 - Paroxysmal MoodisEzekiel kaur Active [place] atrial fibrillation / Community I48.0(ICD-10) Hospital Repository 06/22/2018 Unknown 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 Repository without angina pectoris / I25.10(ICD-10) 06/22/2018 Unknown E78.00 - Pure MoodEzekiel son Active [place] hypercholesterolemia, Community unspecified / Hospital E78.00(ICD-10) Repository 06/20/2018 Active Generalized Unknown Active [place] hyperhidrosis / Clinic Other R61(ICD-10) [place] Repository 06/20/2018 Active Unspecified atrial Unknown Active [place] fibrillation / Clinic Other I48.91(ICD-10) [place] Repository 06/18/2018 Unknown I50.32 - Chronic Leon Joy Active [place] diastolic [facility] (congestive) heart Hospital failure / Repository I50.32(ICD-10) 06/01/2018 Unknown E78.5 - Oleghe, Active [place] [facility] unspecified / Hospital E78.5(ICD-10) Repository 05/22/2018 Unknown Z78.0 - Asymptomatic [place], Active [place] menopausal state / [facility] Z78.0(ICD-10) Hospital Repository 05/22/2018 Unknown N95.9 - Unspecified [place]leghe, Active [place] menopausal and [facility] perimenopausal Hospital disorder / Repository N95.9(ICD-10) 05/24/2018 Unknown Z12.11 - Encounter Robottyron, Active [place] for screening for [facility] malignant neoplasm of Hospital colon / Repository Z12.11(ICD-10) 05/24/2018 Unknown K64.0 - First degree Ronda, Active [place] hemorrhoids / [facility] K64.0(ICD-10) Hospital Repository 05/24/2018 Unknown K57.30 - Robotham, Active [place] Diverticulosis of [facility] large intestine Hospital without perforation Repository or abscess without bleeding / K57.30(ICD-10) 06/04/2018 Unknown R00.0 - Tachycardia, Donte Lutz Active [place] unspecified / [facility] R00.0(ICD-10) Hospital Repository 05/08/2018 Unknown Z12.31 - Encounter Olelaura, Active [place] for screening [facility] mammogram for Hospital malignant neoplasm of Repository breast / Z12.31(ICD-10) 05/01/2018 Unknown R06.02 - Shortness of Parsons, Active [place] breath / [facility] R06.02(ICD-10) Hospital Repository 03/30/2018 Unknown E11.9 - Type 2 [place]leghe, Active [place] diabetes mellitus [facility] without complications Hospital / E11.9(ICD-10) Repository 03/30/2018 Unknown R32 - Unspecified [place]leghe, Active [place] urinary incontinence [facility] / R32(ICD-10) Hospital Repository 10/25/2017 Unknown Z79.899 - Other long Timmy Ndiaye Active [place] term (current) drug [facility] Community therapy / Hospital Z79.899(ICD-10) Repository 10/13/2017 Unknown F41.9 - Anxiety Timmy Ndiaye Active [place] disorder, unspecified [facility] Community / F41.9(ICD-10) Hospital Repository 10/23/2017 Unknown J44.9 - Chronic AdisToan dubose Active [place] obstructive pulmonary Community disease, unspecified Hospital / J44.9(ICD-10) Repository PROCEDURES PROCEDURES No Procedure Records FoundRESULTS RESULTS 12 LEAD ELECTROCARDIOGRAM Observed: 08/13/2018 Status: F Source: [place] 9:43 AM [facility] Cardiovascular Services [address] [place] [address] 12 Lead EKG 08/10/18 1322 MR#: [id number] Acct: [id number] Name: CAYLA CHISHOLM Rep #: [id number] : 1945 72 From: Jose Sánchez MD Attending Dr: Status: DEP ER Ordering Dr: Palomo Hill DO Date: 08/10/18 Location: ED Sex: F C Admitted: Test Reason : PALPS Blood Pressure : / mmHG Vent. Rate : 137 BPM Atrial Rate : 144 BPM P-R Int : 000 ms QRS Dur : 086 ms QT Int : 320 ms P-R-T Axes : 000 047 002 degrees QTc Int : 483 ms Atrial fibrillation with rapid ventricular response Abnormal ECG Confirmed by NAHUM WOLFE, JOSE ([id number]), editor school photograph GALILEO SINGLETARY ([id number]) on 08/13/2018 9:43:00 AM Referred By: SHANELL Confirmed By:JOSE SÁNCHEZ MD 08/13/18 0943 Date Jose Sánchez MD CC: Quique Mims MD; Palomo Hill DO Signed DISCHARGE INSTRUCTION Observed: 08/10/2018 Status: F Source: [place] 3:41 PM [facility] [place] [place] REPOSITORY [facility] Medical Records Department [address] [place] [address] Discharge Instruction 08/10/18 1540 MR#: [id number] Acct: [id number] Name: CAYLA CHISHOLM Rep #: [id number] : 1945 72 From: Palomo Hill DO PCP: Quique Mims MD Status: REG ER ED Disposition - Plan for ED Patient: Chief Complaint: Palpitations Instructions: ED Afib Referrals: Quique Mims MD [Primary Care Provider] - Ezekiel Perez MD [STAFF PHYSICIAN] - As Needed What to do if you have Problems For any increased pain, shortness of breath, bleeding, nausea or vomiting, chest pain, or any unexpected problems, contact your Primary Care Provider. Call [facility] ([phone]) or report to the closest Emergency Room. Call 911 if necessary. 08/10/18 1541 <Electronically signed by Palomo Hill DO> Date Palomo Hill DO Cosigner Signature (If Indicated): Date CC: Quique Mims MD EMERGENCY DEPARTMENT Observed: 08/10/2018 Status: F Source: [place] SUMMARY 3:40 PM [facility] [place], [place] REPOSITORY [facility] Medical Records Department [address] [place] [address] Emergency Department Summary 08/10/18 1537 MR#: [id number] Acct: [id number] Name: CAYLA CHISHOLM Rep #: [id number] : 1945 72 From: Palomo Hill DO PCP: Quique Mims MD Status: REG ER - ER Visit Summary Date of Service: 08/10/18 Chief Complaint: [Palpitations with history of atrial fibrillation] History of Present Illness: The patient is a 72 F [presents the emergency department with complaint of thinking that she is in atrial fibrillation. Patient states that she was just working around the house picking some things up when she began feeling very sweaty which is typically what happens when she has A. fib. Patient checked her pulse via pulse oximeter and noted that it was elevated and presents to the ER for evaluation. She denies any chest pain. Denies any significant dyspnea. She denies recent illness. Patient currently being evaluated by gastroenterology manager in [place] for possible need for ablation. Patient is wearing a event monitor. Patient is currently on Xarelto and has been compliant with her medications. Patient also on sotalol and Norvasc.] Physical Examination: [HEENT-PERRLA, EOMI. Cranial nerves II through XII grossly intact. TMs clear. Mucous membranes moist. No adenopathy. Cardiovascular-irregularly irregular and tachycardic. There is a 2 out of 6 systolic ejection murmur. Lungs-clear to auscultation, chest wall stable without crepitus or subcu emphysema Abdomen-normoactive bowel sounds, soft, nontender, no rebound or rigidity, no peritoneal signs. Extremities-intact 4, normal range of motion, normal pulses, atraumatic] Test Results: EKG obtained showed atrial fibrillation with a rapid ventricular response with a rate of 137 bpm. CBC with differential was unremarkable. Chemistries unremarkable. Troponin was less than 0.015. Chest x-ray showed nothing acute.] Emergency Department Course and Treatment: [Patient received Cardizem 20 mg IV bolus. Patient converted to sinus rhythm. Patient without any complaints currently.] Treatment Plan: [We will plan to discuss case with patient's gastroenterology manager and assure follow-up. Patient is currently anticoagulated. Patient also following up with gastroenterology manager in [place]] Disposition: [Discharged home in stable condition] Impression: [Paroxysmal atrial fibrillation] This note was generated with [employer] dictation software. It may contain incorrect words, spelling, and punctuation that were not noted in review of the chart prior to signing ED Disposition - Plan for ED Patient: Chief Complaint: Palpitations Referrals: Quique Mims MD [Primary Care Provider] - What to do if you have Problems For any increased pain, shortness of breath, bleeding, nausea or vomiting, chest pain, or any unexpected problems, contact your Primary Care Provider. Call [facility] ([phone]) or report to the closest Emergency Room. Call 911 if necessary. 08/10/18 3560 <Electronically signed by Palomo Hill DO> Date Palomo Hill DO Cosigner Signature (If Indicated): Date CC: Quique Mims MD CBC W/DIFF, AUTOMATED Collected: 08/10/2018 Status: F Source: [place] 2:00 PM [facility] [place], [place] REPOSITORY TYPE CODE TESTS RESULT OUT OF RANGE REFERENCE UNITS LAB L100.1000 4.4-11.0 K/mm3 Normal WBC 7.6 LAB L100.1200 4.2-5.4 M/mm3 Normal RBC 5.16 LAB L100.1300 12.0-15.0 g/dl Normal HGB 14.7 LAB L100.1400 37-47 % Normal HCT 46.0 LAB L100.1500 81-99 fL Normal MCV 89.1 LAB L100.1600 27.0-32.0 pg Normal MCH 28.5 LAB L100.1700 32-36 g/gl Normal MCHC 32.0 LAB L100.1810 11.6-14.6 % Normal RDW CV 12.7 LAB L100.1820 35.1-43.9 fl Normal RDW SD 41.0 LAB L100.1900 150-450 K/mm3 Normal PLT 331 LAB L100.2000 6.2-12.0 fl Normal MPV 10.5 LAB L100.2100 47-70 % Normal NEUT% 63.2 LAB L100.2200 19-41 % Normal LY% 24.9 LAB L100.2300 0-10 % Normal MONO% 9.5 LAB L100.2400 0-5 % Normal EO% 2.2 LAB L100.2500 0-1 % Normal BASO% 0.1 LAB L100.2550 0.0-0.9 % Normal IM GRAN % 0.100 Result Comment: IG% - Immature Granulocytes (promyelocytes, myelocytes and metamyelocytes) > 1% indicates that a LEFT SHIFT is Present. LAB L100.2620 2.0-7.7 X10 3/uL Normal Absolute Neut 4.8 LAB L100.2720 0.83-4.51 X10 3/ul Normal Absolute Lymph 1.88 Performed By: #### L100.0100 #### [facility] [address] [place], [address] BASIC METABOLIC Collected: 08/10/2018 Status: F Source: [place] PROFILE (BMP) 2:00 PM [facility] [place], [place] REPOSITORY TYPE CODE TESTS RESULT OUT OF RANGE REFERENCE UNITS LAB L501.0100 74-106 mg/dL High GLU 137 Result Comment: Fasting Glucose result greater than or equal to 126 mg/dL suggests DIABETES MELLITUS per A.D.A. criteria. Please note revised GLUCOSE reference range effective 2017. LAB L501.1000 7-18 mg/dL Normal BUN 11 LAB L501.1100 0.55-1.02 mg/dL Normal CREAT,SERUM 0.64 Result Comment: The validity of the calculated GFR AND GFRAA in patients over 70 years has not been determined. Clinical correlation is essential. LAB L501.1110 >60 mL/min Normal EST GFR 98 Result Comment: Non- GFR Calc LAB L501.1115 >60 mL/min Normal EST GFR - AA 118 Result Comment: GFR Calc LAB L501.1255 ml/min Normal Estimated CRCL 47.10 LAB L501.1300 10-20 RATIO Normal BUN/CRE 17.3 LAB L501.2200 8.5-10 mg/dL Normal .1 CA 9.0 LAB L501.5300 136-14 mmol/L Normal 5 NA 140 LAB L501.5600 3.5-5. mmol/L Normal 1 K 3.6 LAB L501.5900 98-107 mmol/L Normal CL 104 LAB L501.6100 21.0-3 mmol/L Normal 2.0 CO2 26.0 LAB L501.6200 5-15 Normal GAP 10 Performed By: #### L500.2500, L501.4010 #### [facility] [address] [place], [address] TROPONIN-I Collected: 08/10/2018 Status: F Source: [place] 2:00 PM [facility] [place] [place] REPOSITORY TYPE CODE TESTS RESULT OUT OF RANGE REFERENCE UNITS LAB L501.4010 <0.045 ng/mL Normal < 0.015 TROPONIN-I Result Comment: TROPONIN-I EXPECTED VALUES <0.045 Negative 0.045 - 0.590 Consistent with Cardiac Damage > OR = 0.600 Critical Value Not every elevated troponin is indicative of HI. These values should be used with clinical judgement in examining the patient's clinical picture for diagnosis. To establish a diagnosis of HI versus myocardial injury, there must be a demonstrated rise and/or fall in the troponin values, in addition to ischemic symptoms, EKG changes, new regional wall motion abnormality, and/or angiographical evidence. PLEASE NOTE: REFERENCE RANGES EDITED 17 Performed By: #### L500.2500, L501.4010 #### [facility] [address] [place], [address] CHEST 1 VIEW Observed: 08/10/2018 Status: F Source: [place] (PORTABLE) 1:45 PM [facility] [place] [place] REPOSITORY [facility] Imaging Services [address] [place] [address] Chest 1 View (Portable) MR#: [id number] Acct: [id number] Name: CAYLA CHISHOLM Rep #: [id number] : 1945 F 72 From: Flaco Williamson MD PCP: Quique Mims MD Status: REG ER Study: Chest 1 View (Portable) Date of Exam: 08/10/18 Exam# [id number] Ordering Dr: Palomo Hill DO STUDY: X-RAY CHEST REASON FOR EXAM: Female, 72 years old. Atrial fibrillation. TECHNIQUE: Single AP portable view of the chest. COMPARISON: 06/28/2018. FINDINGS: The lungs are clear and expanded. There is no demonstrated pleural abnormality. Normal size heart. Normal mediastinum and ricardo. Normal visualized pulmonary arteries. Normal visualized aortic arch and descending thoracic aorta. Normal visualized thoracic spine. Normal visualized ribs, clavicles, and shoulders. There is no demonstrated abnormality of the visualized soft tissue structures of the upper abdomen. RAD/Chest 1 View (Portable) IMPRESSION: Normal x-ray examination of the chest. Electronically Signed: Flaco Williamson MD at 14:03 EST , Service support , CC: Quique Mims MD; Palomo Hill DO Space Studies Faculty Member: Signed INTERNAL MEDICINE Observed: 07/11/2018 Status: F Source: [place] OFFICE VISIT 4:59 PM [facility] Internal Medicine [address] [place] [address] [place] [address] OFFICE VISIT Date of Service: 07/06/18 MR#: [id number] Acct: [id number] Name: CAYLA CHISHOLM Rep #: [id number] : 1945 Provider: Quique Mims MD Age/Sex: 72/F Location: [facility] Status: Signed Intake Vital Signs07/06/18 Body Mass Index (BMI) 38.2 07/06/18 Height 5 ft 5 in 07/06/18 Weight: 231 lb 07/06/18 Body Mass Index (BMI) 38.4 07/06/18 Blood Pressure 130/74 H Intake Visit Reasons: 1 mo follow up Chief Complaint: 1 Mo follow-up visit Allergies labetalol Allergy (Verified 07/06/18 09:30) Unknown pitavastatin [From Livalo] Allergy (Verified 07/06/18 09:30) Other simvastatin [From Zocor] Allergy (Verified 07/06/18 09:30) Other budesonide [From Symbicort] Adverse Reaction (Verified 07/06/18 09:30) Other formoterol [From Symbicort] Adverse Reaction (Verified 07/06/18 09:30) Other hydrocodone [From Vicodin] Adverse Reaction (Verified 07/06/18 09:30) Other Hqejqyq-Iny-Xgg Reductase Inhibitor Adverse Reaction (Verified 07/06/18 09:30) Other Medications Multivitamin [Daily Multiple Vitamin] 1 ea PO DAILY 10/11/16 [History Confirmed 07/06/18] Dextran 70/He-Cell [Tears Naturale, Artificial Tears] 2 drp EACH EYE Q2H PRN PRN bottle 05/17/17 [Rx Confirmed 07/06/18] acetaminophen 500 mg capsule 500 mg PO Q4H PRN 08/10/17 [History Confirmed 07/06/18] albuterol sulfate 2.5 mg/3 mL (0.083 %) solution for nebulization 2.5 mg INHALATION Q4H PRN #180 vial 08/16/17 [Rx Confirmed 07/06/18] mometasone-formoterol HFA 200 mcg-5 mcg/actuation aerosol inhaler 2 puff INHALATION BID 09/19/17 [History Confirmed 07/06/18] duloxetine 60 mg capsule,delayed release 60 mg PO QDAY #90 cap 01/26/18 [Rx Confirmed 07/06/18] ezetimibe 10 mg tablet 10 mg PO QDAY #90 tab 03/02/18 [Rx Confirmed 07/06/18] hydrochlorothiazide 25 mg tablet 25 mg PO QAM #90 tab 03/02/18 [Rx Confirmed 07/06/18] metformin 500 mg tablet 500 mg PO BID #180 tab 03/02/18 [Rx Confirmed 07/06/18] fenofibrate micronized 67 mg capsule 67 mg PO QPM #90 cap 03/15/18 [Rx Confirmed 07/06/18] albuterol sulfate HFA 90 mcg/actuation aerosol inhaler 2 puff INHALATION Q4H PRN #18 g 05/01/18 [Rx Confirmed 07/06/18] potassium chloride 20 mEq oral packet 20 meq PO BID #60 ea 05/10/18 [Rx Confirmed 07/06/18] rivaroxaban 20 mg tablet 20 mg PO DAILY #30 tab 05/10/18 [Rx Confirmed 07/06/18] sotalol 80 mg tablet 120 mg PO BID #90 tab 05/10/18 [Rx Confirmed 07/06/18] buspirone 10 mg tablet 10 mg PO BID #90 tab 06/01/18 [Rx Confirmed 07/06/18] amlodipine 10 mg tablet 10 mg PO DAILY #60 tab 06/25/18 [Rx Confirmed 07/06/18] Lisinopril 5 mg PO DAILY 06/28/18 [History Confirmed 07/06/18] alendronate 70 mg tablet 70 mg PO QWEEK #10 tab 07/06/18 [Rx Confirmed 07/06/18] lorazepam 0.5 mg tablet 0.5 mg PO QD-BID PRN #30 tab 07/06/18 [Rx Confirmed 07/06/18] magnesium oxide 400 mg capsule 400 mg PO DAILY #90 cap 07/06/18 [Rx Confirmed 07/06/18] omeprazole 20 mg capsule,delayed release 20 mg PO QDAY #90 cap 07/06/18 [Rx Confirmed 07/06/18] Nurse's Note: Has been in ER for several episodes of AFib PFSH Medical History Diastolic congestive heart failure (Chronic) Atherosclerotic heart disease of [place] coronary artery without angina pectoris (Chronic) Long-term [...] at home: Yes HPI HPI Chief Complaint: 1 Mo follow-up visit Details: CAYLA CHISHOLM, is a 72yo F who presents to the office today for follow-up. During her last visit, she had adjustments to her blood pressure medications due to poorly controlled blood pressure. Amlodipine was increased from 5-10 mg daily. She reports compliance with her medication. Blood pressure is better controlled at this time. She continues to report intermittent episodes of irregular heartbeat most often with emotional triggers. She has followed up with her gastroenterology manager and has been referred to an drying can worker in [place]. She has done well so far with the addition of buspirone for anxiety. She however still has occasional episodes of panic attacks. ROS Const Constitutional: No chills, fatigue, fever(s), [...] pain Neuro Neurology: No frequent falls, weakness, visual disturbances, abnormal hearing, numbness, tingling, unsteady gait/balance, dizziness, loss of vision or memory loss Psych Psychiatric: No change in appetite, No memory loss, Positive for anxiety, No depression, No Thoughts of harming [...] II-XI intact bilaterally Extrem General: pedal edema Psych Appearance: grossly normal Mental Status: mental status grossly normal Affect: normal affect Assessment AND Plan 1. Essential hypertension I10 Plan Better controlled. Continue current medication. Continue lifestyle and dietary modifications. 2. PAF (paroxysmal atrial fibrillation) I48.0 Plan Persistent. At this time she is in normal sinus rhythm with a heart rate of 60 bpm. Scheduled to follow-up with an drying can worker in [place] in July. Magnesium is borderline, will start on magnesium supplements with a goal of 2. Continue current dose of potassium supplements. Repeat BMP in 1 month. 3. Depression with anxiety F41.8 Plan Doing well for the most part however still has occasional panic attacks. Continue Cymbalta and buspirone. Lorazepam as needed for panic attacks. Follow-up at next visit. Medications New: 4. Osteoporosis M81.0 Plan Bone density done in April suggestive of osteoporosis. Calcium 600 mg twice daily and 2000 units of vitamin D recommended. Prescription for Fosamax also sent. Advised to take it first thing in the morning on empty stomach with a full glass of water to stay seated for at least an hour after taking. Advised to call with any questions or concerns. If poorly tolerant, will switch to Prolia. This note was generated with [employer] dictation software. It may contain incorrect words, spelling, and punctuation that were not noted in checking the note before signing. Plan Detail Other Orders Orders: Other Medications New: Refilled: Coding Level of Care Code Off vis,est,level 4 Diagnoses Essential hypertension I10 Hypertension type: essential hypertension PAF (paroxysmal atrial fibrillation) I48.0 Depression with anxiety F41.8 Osteoporosis M81.0 07/11/18 1809 <Electronically signed by Quique Mims MD> Date Quique Mims MD Cosigner Signature: Date (if applicable) CC: CARDIOLOGY VISIT Observed: 07/05/2018 Status: F Source: [place] REPORT 7:08 AM [facility] [place] [place] REPOSITORY [facility] [address] [place] [address] OFFICE VISIT Date of Service: 07/04/18 MR#: [id number] Acct: [id number] Name: CAYLA CHISHOLM Rep #: [id number] : 1945 Provider: SHERRIE Joy Age/Sex: 72/F [place] [facility] Status: Signed HPI HPI Chief Complaint: follow-up visit Details: CAYLA CHISHOLM, is a 72 F who presents to the office today for a cardiovascular outpatient follow-up. She has history of coronary artery disease, paroxysmal atrial fibrillation, hypertension, pulmonary hypertension, hyperlipidemia, COPD, SEVEN with CPAP, and diabetes. Patient presented to [facility] emergency department in June 2018 for palpitations. Her ECG showed sinus rhythm with a ventricular rate of 71 bpm. Her prehospital EKG was reviewed and thought to be atrial fibrillation with RVR. Patient has been referred to [facility] electrophysiology team for further evaluation and consideration [...] Vicodin] Adverse Reaction (Verified 07/04/18 13:39) Other Budrnkv-Wxo-Kal Reductase Inhibitor Adverse Reaction (Verified 07/04/18 13:39) [...] heart failure (Chronic) Atherosclerotic heart disease of [place] coronary artery without angina pectoris (Chronic) Long-term [...] 0708 <Electronically signed by Leon LAWSON> Date Leon LAWSON Cosigner Signature: Date (if applicable) CC: Quique Mims MD 12 LEAD ELECTROCARDIOGRAM Observed: 07/02/2018 Status: F Source: [place] 2:46 PM [facility] Cardiovascular Services [address] [place] [address] 12 Lead EKG 06/28/181911 MR#: [id number] Acct: [id number] Name: CAYLA CHISHOLM Rep #: [id number] : 1945 72 From: Jose Sánchez MD [...] ECG Confirmed by NAHUM WOLFE, JOSE ([id number]), editor school photograph FARAZ JAMES ([id number]) on 07/02/2018 2:46:18 PM Referred By: SHANELL Confirmed By:JOSE SÁNCHEZ MD 07/02/18 1446 Date Jose Sánchez MD CC: Quique Mims MD; Palomo Hill DO Signed DISCHARGE INSTRUCTION Observed: 06/28/2018 Status: F Source: [place] 8:19 PM [facility] [place] [place] REPOSITORY [facility] Medical Records Department [address] [place] [address] Discharge Instruction 06/28/182017 MR#: [id number] Acct: [id number] Name: CAYLA CHISHOLM Rep #: [id number] : 1945 72 From: Palomo Hill DO [...] your Primary Care Provider. Call [facility] ([phone]) or report to the closest Emergency Room. Call 911 if necessary. 06/28/182018 <Electronically signed by Palomo Hill DO> Date Palomo Hill DO Cosigner Signature (If Indicated): Date CC: Quique Mims MD EMERGENCY DEPARTMENT Observed: 06/28/2018 Status: F Source: [place] SUMMARY 8:18 PM [facility] [place] [place] REPOSITORY [facility] Medical Records Department [address] [place] [address] Emergency Department Summary 06/28/182014 MR#: [id number] Acct: [id number] Name: CAYLA CHISHOLM Rep #: [id number] : 1945 72 From: Palomo Hill DO [...] Dr. Ezekiel Perez who is the patient's gastroenterology manager who asked that patient follow-up with our office but no further interventions were warranted at this time. Patient is comfortable with this plan.] Disposition: [Discharged home in stable condition] Impression: [Tachycardia] This note was generated with [employer] dictation software. It may contain incorrect words, [...] your Primary Care Provider. Call [facility] ([phone]) or report to the closest Emergency Room. Call 911 if necessary. 06/28/182017 <Electronically signed by Palomo Hill DO> Date Palomo Hill DO Cosigner Signature (If Indicated): Date CC: Quique Mims MD CHEST 1 VIEW Observed: 06/28/2018 Status: F Source: [place] (PORTABLE) 7:01 PM [facility] [place] [place] REPOSITORY [facility] Imaging Services [address] [place] [address] Chest 1 View (Portable) MR#: [id number] Acct: [id number] Name: CAYLA CHISHOLM Rep #: [id number] : 1945 F 72 From: Joelle Cueto MD PCP: Quique Mims MD Status: PRE ER Study: Chest 1 View (Portable) Date of Exam: 06/28/18 Exam# [id number] Ordering Dr: Palomo Hill DO STUDY: X-RAY [...] CC: Quique Mims MD; Palomo Hill DO Space Studies Faculty Member: Signed CBC W/DIFF, AUTOMATED Collected: 06/28/2018 Status: F Source: [place] 6:50 PM [facility] [place] [place] REPOSITORY TYPE CODE TESTS RESULT OUT OF [...] Lymph 2.06 Performed By: #### L100.0100 #### [facility] [address] [place], [place], [id number] BASIC METABOLIC Collected: 06/28/2018 Status: F Source: [place] PROFILE (BMP) 6:50 PM [facility] [place] [place] REPOSITORY TYPE CODE TESTS RESULT OUT OF [...] Performed By: #### L500.2500, L501.4010, L501.5200 #### [facility] [address] [place], [address] TROPONIN-I Collected: 06/28/2018 Status: F Source: [place] 6:50 PM [facility] [place] [place] REPOSITORY TYPE CODE TESTS RESULT OUT OF RANGE REFERENCE UNITS LAB L501.4010 <0.045 ng/mL Normal < 0.015 TROPONIN-I Result Comment: TROPONIN-I EXPECTED VALUES <0.045 Negative 0.045 - 0.590 Consistent with Cardiac Damage > OR = 0.600 Critical Value Not every elevated troponin is indicative of HI. These values should be used with clinical judgement in examining the patient's clinical picture for diagnosis. To establish a diagnosis of HI versus myocardial injury, there must be a demonstrated rise and/or fall in the troponin values, in addition to ischemic symptoms, EKG changes, new regional wall motion abnormality, and/or angiographical evidence. PLEASE NOTE: REFERENCE RANGES EDITED 17 Performed By: #### L500.2500, L501.4010, L501.5200 #### [facility] [address] [place], [address] MAGNESIUM Collected: 06/28/2018 Status: F Source: [place] 6:50 PM [facility] [place] [place] REPOSITORY TYPE CODE TESTS RESULT OUT OF RANGE REFERENCE UNITS LAB L501.5200 1.6-2.6 mg/dL Normal MG 1.6 Performed By: #### L500.2500, L501.4010, L501.5200 #### [facility] [address] [place], [address] DISCHARGE INSTRUCTION Observed: 06/24/2018 Status: F Source: [place] 4:37 PM [facility] [place] [place] REPOSITORY [facility] Medical Records Department [address] [place] [address] Discharge Instruction 06/24/18 1545 MR#: [id number] Acct: [id number] Name: CAYLA CHISHOLM Rep #: [id number] : 1945 72 From: Isak Davis MD [...] wrist repair years ago or Dr. Karly Kirkpatrick if not improving. What to do if you have Problems For any increased pain, shortness of breath, bleeding, nausea or vomiting, chest pain, or any unexpected problems, contact your Primary Care Provider. Call [email or web address] ([phone]) or report to the closest Emergency Room. Call 911 if necessary. 06/24/18 6605 <Electronically signed by Isak Davis MD> Date Isak Davis MD Cosigner Signature (If Indicated): Date CC: Quique Mims MD EMERGENCY DEPARTMENT Observed: 06/24/2018 Status: F Source: [place] SUMMARY 4:37 PM [facility] [place] [place] REPOSITORY [facility] Medical Records Department [address] [place] [address] Emergency Department Summary 06/24/18 1448 MR#: [id number] Acct: [id number] Name: CAYLA CHISHOLM Rep #: [id number] : 1945 72 From: Isak Davis MD PCP: Quique Mims MD Status: DEP ER - ER Visit Summary Date of Service: 06/24/18 Chief Complaint: Fall complaining of right wrist pain History of Present Illness: The patient is a 72 F past medical history of prior wrist fracture with orthopedic repair with hardware. History of CAD, HI, COPD, zac-vsazsqv-mjcpktanl diabetes, A. fib on Xarelto. Patient was [...] left upper extremity is nontender with normal internal sales strength. Both lower extremities are nontender. Dorsi [...] wrist sprain This note was generated with [employer] dictation software. It may contain incorrect words, [...] your Primary Care Provider. Call [facility] ([phone]) or report to the closest Emergency Room. Call 911 if necessary. 06/24/18 3234 <Electronically signed by Isak Davis MD> Date Isak Davis MD Cosigner Signature (If Indicated): Date CC: Quique Mims MD WRIST MIN 3 VIEWS Observed: 06/24/2018 Status: F Source: [place] 2:47 PM [facility] [place] [place] REPOSITORY [facility] Imaging Services [facility] [place] [address] [place] [address] Wrist min 3 Views MR#: [id number] Acct: [id number] Name: CAYLA CHISHOLM Rep #: [id number] : 1945 F 72 From: Lisa Engle MD PCP: Quique Mims MD Status: DEP ER Study: Wrist min 3 Views Date of Exam: 06/24/18 Exam# [id number] Ordering Dr: Isak Davis MD STUDY: X-RAY [...] Engle MD at 16:26 EST Tel Direct: [phone], Service support , CC: Quique Mims MD; Isak Davis MD Space Studies Faculty Member: Signed CARDIOLOGY VISIT Observed: 06/21/2018 Status: F Source: [place] REPORT 6:20 PM [facility] [place] [place] REPOSITORY [facility] [address] [place] [address]. [address] [place] [address] OFFICE VISIT Date of Service: 06/21/18 MR#: [id number] Acct: [id number] Name: CAYLA CHISHOLM Rep #: [id number] : 1945 Provider: Ezekiel Perez MD Age/Sex: 72/F Location[place] [facility] Status: Signed HPI HPI Details: CAYLA CHISHOLM, is a 72 F who presents to the office today for outpatient follow-up for her paroxysmal atrial fibrillation. She states while at [facility] yesterday with a family member she developed [...] Vicodin] Adverse Reaction (Verified 06/21/18 16:55) Other Lsxegof-Yot-Mez Reductase Inhibitor Adverse Reaction (Verified 06/21/18 16:55) Other Medications Multivitamin [Daily Multiple Vitamin] 1 ea PO DAILY 03/21/17 [History Confirmed 06/21/18] Dextran 70/He-Cell [Tears Naturale, [...] BID #360 cap 06/06/18 [Rx Confirmed 06/21/18] [facility] Medical History Diastolic congestive heart failure (Chronic) Atherosclerotic heart disease of [place] coronary artery without angina pectoris (Chronic) Long-term [...] has been requested to be referred to [facility] electrophysiology for evaluation of her atrial dysrhythmia/fibrillation for consideration for EPS/RFA. In the interim she will continue her medical management. If she has recurrent symptoms she will notify the office or present to the hospital for further evaluation Orders Orders: 2. Atherosclerosis of [place] coronary artery of [place] heart without angina pectoris I25.10 Plan She does have a history of non-angiographically significant CAD as noted above. While in the hospital for noncardiovascular issues including underlying pulmonary issues she appeared to have a type II non-ST segment elevation HI. She has had no ongoing symptoms suspicious [...] noted above, she will be referred to [facility] electrophysiology for outpatient electrophysiology consultation for [...] with rapid ventricular response I48.0 Atherosclerosis of [place] coronary artery of [place] heart without angina pectoris I25.10 [place] vs. transplanted heart: [place] heart Pure hypercholesterolemia E78.00 Hyperlipidemia type: pure hypercholesterolemia Essential hypertension I10 Hypertension type: essential hypertension Coding Level of Care Code Off vis,est,level 3 Diagnoses Paroxysmal atrial fibrillation with rapid ventricular response I48.0 Atherosclerosis of [place] coronary artery of [place] heart without angina pectoris I25.10 [place] vs. transplanted heart: [place] heart Pure hypercholesterolemia E78.00 Hyperlipidemia type: pure hypercholesterolemia Essential hypertension I10 Hypertension type: essential hypertension 06/21/18 1820 <Electronically signed by Ezekiel Perez MD> Date Ezekiel Perez MD Cosigner Signature: Date (if applicable) CC: Quique Mims MD ED PROV NOTE Observed: 06/20/2018 Status: COMPLETED Source: [place] 4:13 PM CLINIC OTHER CAMPUS REPOSITORY [facility] ID: [id number] Author: Butch White DO Service: Emergency Medicine [...] [Atorvastat* Other: See Comments Muscle cramping - Vtxahas-Kvn-Lzm Red* Other: See Comments Gets jitters - [...] 46.7 (*) 36.0 - 46.0 % Abs [place]atham 0.87 (*) <0.87 k/uL All other components [...] signs reviewed Triage note reviewed Placed on secured entrance monitor Medications administered magnesium sulfate potassium chloride Lopressor Consultation obtained gastroenterology manager Dr. High Consultation recommendations trial of IV rate control medication followed by cardioversion if rate not improved Patient arrives tachycardic EKG confirms atrial fibrillation with RVR. Patient's only complaint is diaphoresis. Potassium and magnesium both replaced. Remainder of water grossly unremarkable. Chest x-ray shows slight upper lobe pulmonary vascular prominence mild CHF. Patient discussed with gastroenterology manager as noted above. Treated with IV Lopressor with spontaneous conversion to normal sinus rhythm. Patient asymptomatic upon repeat evaluation. Patient be discharged home in stable condition with close outpatient follow-up by gastroenterology manager for further recommendations and care. Will [...] Correction of Electrolyte Abnormality and Consultation by gastroenterology manager during the time that critical care was provided. Critical care time excludes separately billed procedures. DO Butch Gallagher DO 06/21/18803 Butch White, 06/21/18804 EKG Observed: 06/20/2018 Status: F Source: [place] 2:48 PM [facility] OTHER CAMPUS REPOSITORY NAME : CAYLA CHISHOLM PID : [id number] : 1945 Gender : Female Race : ORD : [id number] Procedure Date : Jun 20 2018 14:48:49 Edit Date : Jun 20 2018 17:14:57 Diagnosis:NORMAL SINUS RHYTHM NORMAL ECG agree Confirmed by MD WHITE CHRISTOPHER ([id number]), editor school photograph AUBREY DE LA CRUZ ([id number]) on 06/20/2018 5:14:55 PM Ventricular Rate : 64 BPM Atrial Rate : 64 BPM P-R Interval : 124 ms QRS Duration : 84 ms Q-T Interval : 430 ms QTC Calculation(Bezet) : 443 ms P [place] : 56 degrees R [place] : 22 degrees T [place] : 24 degrees Test Reason : Arrhythmia Location : 1 : ER 1 Overread By : MD WHITE CHRISTOPHER Edited By : AUBREY DE LA CRUZ Referred By : , Acquired by : CAM, XR CHEST 1V FRONTAL Observed: 06/20/2018 Status: F Source: [facility] 2:44 PM [facility] OTHER CAMPUS REPOSITORY * * *Final [...] prominence, mild CHF Platelike atelectasis left base Space Studies Faculty Member: TERESA Transcribe Date/Time: Jun 20 2018 2:53P Dictated by : AURELIANO BRIONES DO This examination was interpreted and the report reviewed and electronically signed by: AURELIANO BRIONES DO on Jun 20 2018 2:57PM EST [id number] ED NOTE Observed: 06/20/2018 Status: COMPLETED Source: [place] 1:03 PM CLINIC OTHER CAMPUS REPOSITORY [facility] ID: [id number] Author: Kaitlynn (Medic) Barbara Burroughs Service: Emergency Medicine Author Type: Change Consultant and Rug Renovator Type: ED Notes Filed: 06/20/2018 1:03 PM Note Text: Labs were drawn and sent. CBC AND DIFFERENTIAL Collected: 06/20/2018 Status: F Source: [place] 1:01 PM [facility] OTHER CAMPUS REPOSITORY TYPE CODE TESTS [...] k/uL Abs Lymph 1.84 LAB AMONO % [place]% 9.9 LAB AAMONO <0.87 k/uL Abs [place] High 0.87 LAB AEOS % Eosin% 0.7 LAB AAEOS <0.46 k/uL Abs Eosin 0.06 LAB ABASO % Baso% 0.3 LAB AABASO <0.11 k/uL Abs Baso 0.03 Performed By: #### CBCDIF, CK, CMP, MG1 #### [facility] [address] [facility] [phone] CK Collected: 06/20/2018 Status: F Source: [facility] 1:01 PM OTHER CAMPUS REPOSITORY TYPE CODE TESTS RESULT OUT OF RANGE REFERENCE UNITS LAB CK 42-196 U/L CK 106 Performed By: #### CBCDIF, CK, CMP, MG1 #### [facility] [address] [facility] [phone] COMP METABOLIC PANEL Collected: 06/20/2018 Status: F Source: [place] 1:01 PM CLINIC OTHER CAMPUS REPOSITORY TYPE [...] mg/dL Glucose High 158 Result Comment: The [place] Diabetes Association (ADA) provides guidance for cutoff [...] Standards of Medical Care in Diabetes 2016, [place] [employer]. Diabetes Care. 2016.39(Suppl 1). LAB [...] By: #### CBCDIF, CK, CMP, MG1 #### [facility] [address] [place], [place] [id number] MAGNESIUM Collected: 06/20/2018 Status: F Source: [place] 1:[address] [place] [address] OTHER [place] REPOSITORY TYPE CODE TESTS RESULT OUT OF REFERENCE UNITS RANGE LAB MG 1.7-2.3 mg/dL Low Magnesium 1.5 Performed By: #### CBCDIF, CK, CMP, MG1 #### [facility] [address] [place], [place] [id number] NT PRO BNP Collected: 06/20/2018 Status: F Source: [place] 1:01 [facility] OTHER [place] REPOSITORY TYPE CODE TESTS RESULT OUT OF REFERENCE UNITS RANGE LAB PBNP <125 pg/mL High PRO B Natr 393 Peptide Performed By: #### NTBNP #### [facility] [address] [place], [place] [id number] TROPONIN T Collected: 06/20/2018 Status: F Source: [place] 1:01 [facility] OTHER [place] REPOSITORY TYPE CODE TESTS RESULT OUT OF REFERENCE UNITS RANGE LAB TROPT 0.000-0.029 ng/mL Troponin T <0.010 Performed By: #### ROSIE #### [facility] [address] [place], [place] [id number] TSH Collected: 06/20/2018 Status: F Source: [place] 1:[address] [place] [address] OTHER [place] REPOSITORY TYPE CODE TESTS RESULT OUT OF RANGE REFERENCE UNITS LAB TSH 0.400-5.500 uU/mL TSH 1.270 Performed By: #### TSH #### [facility] [address] [place] [address] ED NOTE Observed: 06/20/2018 Status: COMPLETED Source: [place] 12:03 PM CLINIC OTHER CAMPUS REPOSITORY [facility] ID: [id number] Author: Esther (Rn) APSQUALE Gant Service: Nursing Author Type: Registered Nurse Type: ED Notes Filed: 06/20/2018 12:04 PM Note Text: Pt noted a rapid heart rate on her pulse ox monitor at 10 a.m. EKG Observed: 06/20/2018 Status: F Source: [place] 11:50 AM CLINIC OTHER CAMPUS REPOSITORY NAME : CAYLA CHISHOLM PID : [id number] : 1945 Gender : Female Race : ORD : [id number] Procedure Date : Jun 20 2018 11:50:29 Edit Date : Jun 20 2018 17:15:24 Diagnosis:ATRIAL FIBRILLATION WITH RAPID VENTRICULAR RESPONSE WITH PREMATURE VENTRICULAR OR ABERRANTLY CONDUCTED COMPLEXES POSSIBLE INFERIOR INFARCT , AGE UNDETERMINED ABNORMAL ECG agree Confirmed by MD WHITE CHRISTOPHER ([id number]), editor school photograph AUBREY DE LA CRUZ ([id number]) on 06/20/2018 5:15:20 PM Ventricular Rate : 133 BPM Atrial Rate : 267 BPM QRS Duration : 82 ms Q-T Interval : 344 ms QTC Calculation(Bezet) : 511 ms R [place] : 20 degrees T [place] : 16 degrees Test Reason : Arrhythmia Location : 1 : ER 1 Overread By : MD WHITE CHRISTOPHER Edited By : AUBREY DE LA CRUZ Referred By : , Acquired by : Milana STRATTON, INTERNAL MEDICINE Observed: 06/04/2018 Status: F Source: [place] OFFICE VISIT 4:28 PM [facility] [place] [place] REPOSITORY [facility] [address] [place] [address] [place] [address] OFFICE VISIT Date of Service: 06/01/18 MR#: [id number] Acct: [id number] Name: CAYLA CHISHOLM Rep #: [id number] : 1945 Provider: Quique Mims MD Age/Sex: 72/F Location: [facility] Status: Signed Intake Vital Signs06/01/18 Height 5 [...] Vicodin] Adverse Reaction (Verified 05/16/18 14:08) Other Mehmepr-Bce-Bkq Reductase Inhibitor Adverse Reaction (Verified 05/16/18 14:08) [...] heart failure (Chronic) Atherosclerotic heart disease of [place] coronary artery without angina pectoris (Chronic) Long-term [...] acute distress Orientation: alert, oriented x3, awake HENNE Head: atraumatic, normocephalic Ears: hearing grossly normal [...] next visit. This note was generated with [employer] Wear dictation software. It may contain incorrect words, [...] CARDIOLOGY VISIT Observed: 06/01/2018 Status: F Source: AHMEEK REPORT 3:20 PM [facility] [place] [place] REPOSITORY [facility] [address] [place] [address]. [address] [place] [address] OFFICE VISIT Date of Service: 06/01/18 MR#: [id number] Acct: [id number] Name: CAYLA CHISHOLM Rep #: [id number] : 1945 Provider: SHERRIE Joy Age/Sex: 72/F [place] [facility] [place]: Signed HPI HPI Details: CAYLA CHISHOLM, [...] Vicodin] Adverse Reaction (Verified 06/01/18 10:26) Other Vakomxm-Wyr-Vpv Reductase Inhibitor Adverse Reaction (Verified 06/01/18 10:26) [...] heart failure (Chronic) Atherosclerotic heart disease of [place] coronary artery without angina pectoris (Chronic) Long-term [...] it worsens. 2. Coronary artery disease involving [place] coronary artery of [place] heart without angina pectoris I25.10 Plan Her [...] atrial fibrillation I48.0 Coronary artery disease involving [place] coronary artery of [place] heart without angina pectoris I25.10 Coronary Disease-Associated Artery/Lesion type: [place] artery [place] vs. transplanted heart: [place] heart Associated angina: without angina Chronic diastolic congestive heart failure I50.32 Heart failure chronicity: chronic Essential hypertension I10 Hypertension type: essential hypertension Pure hypercholesterolemia E78.00 Hyperlipidemia type: pure hypercholesterolemia Coding Level of Care Code Off vis,est,level 3 Diagnoses Paroxysmal atrial fibrillation I48.0 Coronary artery disease involving [place] coronary artery of [place] heart without angina pectoris I25.10 Coronary Disease-Associated Artery/Lesion type: [place] artery [place] vs. transplanted heart: [place] heart Associated angina: without angina Chronic diastolic congestive heart failure I50.32 Heart failure chronicity: chronic Essential hypertension I10 Hypertension type: essential hypertension Pure hypercholesterolemia E78.00 Hyperlipidemia type: pure hypercholesterolemia 06/01/18 1520 <Electronically signed by Leon LAWSON> Date Leon LAWSON Cosigner Signature: Date (if applicable) CC: Quique Mims MD BASIC METABOLIC Collected: 06/01/2018 Status: F Source: ERIKA PROFILE (BMP) 9:26 AM [facility] REPOSITORY TYPE CODE TESTS RESULT OUT OF [...] 7 Performed By: #### L500.2500, L501.5200 #### [facility] [address] [facility] [place], [place], [address] MAGNESIUM Collected: 06/01/2018 Status: F Source: AHMEEK 9:26 AM [facility] [place] [place] REPOSITORY TYPE CODE TESTS RESULT OUT OF RANGE REFERENCE UNITS LAB L501.5200 1.6-2.6 mg/dL Normal MG 1.7 Performed By: #### L500.2500, L501.5200 #### [facility] [address] [place], [place], [address] LIPID PROFILE Collected: 06/01/2018 Status: F Source: AHMEEK 9:26 AM [facility] [place] [place] REPOSITORY TYPE CODE TESTS RESULT OUT OF [...] VLDL 65 Performed By: #### L500.4100 #### [facility] [address] [facility] [place], [address] 12 LEAD ELECTROCARDIOGRAM Observed: 05/22/2018 Status: F Source: AHMEEK 11:30 AM [facility] [place] [place] REPOSITORY [facility] Cardiovascular Services [address] [place] [address] 12 Lead EKG 05/16/18 0936 MR#: [id number] Acct: [id number] Name: CAYLA CHISHOLM Rep #: [id number] : 1945 72 From: Donte Lutz MD Attending Dr: Promise Bond MD Status: [facility] Ordering Dr: Norris Morris MD Date: 05/16/18 [...] Inferior leads Confirmed by DONTE LUTZ ([id number]), editor school photograph FARAZ JAMES (56) on 05/22/2018 11:29:53 AM Referred By: Promise Bond Confirmed By:DONTE LUTZ 05/22/18 1129 Date Donte Lutz MD CC: Norris Morris MD; Quique Mims MD; Promise Bond MD Signed 12 LEAD ELECTROCARDIOGRAM Observed: 05/22/2018 Status: F Source: ERIKA 11:30 AM [facility] [place] [place] REPOSITORY [facility] Cardiovascular Services [address] [place] [address] 12 Lead EKG 05/16/18 0936 MR#: [id number] Acct: [id number] Name: CAYLA CHISHOLM Rep #: [id number] : 1945 72 From: Donte Lutz MD Attending Dr: Promise Bond MD Status: [facility] Ordering Dr: Promise Bond MD Date: 05/16/18 Location: Sex: F C Admitted: Test Reason : [...] IS UNCONFIRMED Confirmed by DONTE LUTZ ([id number]), editor school photograph FARAZ JAMES (56) on 05/22/2018 11:30:03 AM Referred By: Promise Bond Confirmed By:DONTE LUTZ 05/22/18 1130 Date Donte Lutz MD CC: Quique Mims MD; Promise Bond MD Signed DEXA BONE DENSITY Observed: 05/22/2018 Status: F Source: ERIKA STUDY 8:55 AM [facility] [place] [place] REPOSITORY [facility] Imaging Services [address] [place] [address] Dexa Bone Density Study MR#: [id number] Acct: [id number] Name: CAYLA CHISHOLM Rep #: [id number] : 1945 F 72 From: Omar Reyes MD PCP: Quique Mims MD Status: REG CLI Study: Dexa Bone Density Study Date of Exam: 05/22/18 Exam# [id number] Ordering Dr: Timmy NdiayeC STUDY: DUAL ENERGY X-RAY ABSORPTIOMETRY / DXA [...] Omar Reyes MD at 14:51 EDT Tel [phone], Service support , CC: Quique Mims MD; Timmy Ndiaye NP Space Studies Faculty Member: Signed INTERNAL MEDICINE Observed: 05/21/2018 Status: F Source: ERIKA OFFICE VISIT 1:10 PM [facility] Internal Medicine [address] [place] [address] [place] [address] OFFICE VISIT Date of Service: 05/16/18 MR#: [id number] Acct: [id number] Name: CAYLA CHISHOLM Rep #: [id number] : 1945 Provider: Quique Mims MD Age/Sex: 72/F [place] [facility] [place] Status: Signed Intake Vital Signs05/16/18 Height 5 [...] Vicodin] Adverse Reaction (Verified 05/16/18 14:08) Other Gdqxzge-Hsh-Gib Reductase Inhibitor Adverse Reaction (Verified 05/16/18 14:08) [...] heart failure (Chronic) Atherosclerotic heart disease of [place] coronary artery without angina pectoris (Chronic) Long-term [...] previously scheduled. This note was generated with [employer] Wear dictation software. It may contain incorrect words, [...] REPORT - Observed: 05/16/2018 Status: F Source: AHMEEK ENDOSCOPY 10:36 AM [facility] [place] [place] REPOSITORY [facility] Medical Records Department [address] [place] [address] Operative Report - Endoscopy MR#: [id number] Acct: [id number] Name: CAYLA CHISHOLM Rep #: [id number] : 1945 72 From: Promise Bond MD PCP: Quique Mims MD Status: REG [facility] Patient Name: Cayla Chisholm Procedure Date: 05/16/2018 [...] or abscess without bleeding CPT copyright 2017 [employer]. All rights reserved. The codes documented in this report are preliminary and upon wireless telegrapher review may be revised to meet current compliance requirements. MD Promise Benson MD 05/16/2018 10:36:21 AM This report has been signed electronically. Number of Addenda: 0 Note Initiated On: 05/16/2018 9:58 AM 05/16/18 1036 Date Promise Valencia Signature: Date (if indicated) CC: Quique Mims MD; Promise Bond MD Date Dictated: 05/16/18 0958 Date Transcribed: Space Studies Faculty Member: TR Signed BASIC METABOLIC Collected: 05/16/2018 Status: F Source: ERIKA PROFILE (BMP) 9:40 AM [facility] [place] [place] REPOSITORY Order Comment: Has pt arrived? Y [...] 11 Performed By: #### L500.2500, L501.5200 #### [facility] [address] [place], [place], [address] MAGNESIUM Collected: 05/16/2018 Status: F Source: ERIKA 9:40 AM [facility] [place] [place] REPOSITORY Order Comment: Has pt arrived? Y TYPE CODE TESTS RESULT OUT OF RANGE REFERENCE UNITS LAB L501.5200 1.6-2.6 mg/dL Normal MG 1.6 Performed By: #### L500.2500, L501.5200 #### [facility] [address] [place], [address] BEDSIDE GLUCOSE Collected: 05/16/2018 Status: F Source: ERIKA 9:18 AM [facility] [place] [place] REPOSITORY TYPE CODE TESTS RESULT OUT OF REFERENCE UNITS RANGE LAB L501.080 70-110 mg/dL High BEDSIDE GLU 113 Result Comment: MANAGEMENT OF PATIENT CARE PER NURSING PROTOCOL Performed By: #### L501.080 #### [facility] Point of Care [address] [place] [address] SCREENING MAMM (CAD), Observed: 05/08/2018 Status: F Source: ERIKA BIL 10:21 AM [facility] [place] [place] REPOSITORY [facility] Imaging Services [address] [place] [address] SCREENING MAMM (CAD), BIL MR#: [id number] Acct: [id number] Name: CAYLA CHISHOLM Rep #: [id number] : 1945 F 72 From: Omar Reyes MD PCP: Quique Mims MD Status: REG CLI Study: SCREENING MAMM (CAD), BIL Date of Exam: 05/08/18 Exam# [id number] Ordering Dr: Quique Mims MD MAMMOGRAPHY - [...] delay biopsy of a clinically suspicious abnormality. [id number] Electronically Signed: Omar Reyes MD at 11:04 EDT Tel [phone], Service support , CC: Quique Mims MD Space Studies Faculty Member: Signed PULMONARY VISIT REPORT Observed: 05/01/2018 Status: F Source: AHMEEK 1:19 PM [facility] [place] [place] REPOSITORY Pulmonary Medicine of [address] [place] [address] OFFICE VISIT Date of Service: 05/01/18 MR#: [id number] Acct: [id number] Name: CAYLA CHISHOLM Rep #: [id number] : 1945 Provider: Brittany Parsons Age/Sex: 72/F [place] [facility] Status: Signed Assessment AND Plan 1. SEVEN [...] NS Z23 lar syringe (flu vac 2017 [id number](PF)) Discontinue d Reason: Office Medication has been [...] lb Intake Visit Reasons: 6 M FU Oncology Rn Required: No comScore Vendor: [employer] Accompanied by: Family / Other Allergies labetalol Allergy (Verified 05/01/18 06:56) Unknown pitavastatin [From Livalo] Allergy (Verified 05/01/18 06:56) Other simvastatin [From Zocor] Allergy (Verified 05/01/18 06:56) Other budesonide [From Symbicort] Adverse Reaction (Verified 05/01/18 06:56) Other formoterol [From Symbicort] Adverse Reaction (Verified 05/01/18 06:56) Other hydrocodone [From Vicodin] Adverse Reaction (Verified 05/01/18 06:56) Other Tlklbdf-Ejb-Txu Reductase Inhibitor Adverse Reaction (Verified 05/01/18 06:56) [...] PRN #18 g 05/01/18 [Rx Confirmed 05/01/18] [facility] Medical History Diastolic congestive heart failure (Chronic) Atherosclerotic heart disease of [place] coronary artery without angina pectoris (Chronic) Long-term [...] Admin Location Lot Number Expiration Date NDC Waiter 0.5 mL IM Left Deltoid [id number] 11/20/18 80018-374-47 SEQIRUS VIS Given Date VIS Publication Date [...] Date (if applicable) CC: Quique Mims MD MICROALB:CREAT Collected: 04/30/2018 Status: F Source: ERIKA RATIO,RANDOM UR 8:34 AM [facility] [place] [place] REPOSITORY TYPE CODE TESTS RESULT OUT OF RANGE REFERENCE UNITS LAB L501.1200 NO RANGE EST. mg/dL Normal UR CREAT 84.60 LAB L502.0500 NO RANGE EST. mg/L Normal 63.4 MICROALBUMIN ,UR LAB L502.0600 <30 mg/g CRE mg/g CRE High 74.9 MALB:CREAT Performed By: #### L502.0250, L501.9985, L500.2500, L500.4100 #### [facility] [address] [place], [address] HEMOGLOBIN A1C Collected: 04/30/2018 Status: F Source: ERIKA 8:34 AM [facility] [place] [place] REPOSITORY TYPE CODE TESTS RESULT OUT OF RANGE REFERENCE UNITS LAB L501.9985 4.2-6.3 % High HGB A1C 6.4 Performed By: #### L502.0250, L501.9985, L500.2500, L500.4100 #### [facility] [address] [place], [place], [address] BASIC METABOLIC Collected: 04/30/2018 Status: F Source: ERIKA PROFILE (BMP) 8:34 AM [facility] [place] [place] REPOSITORY Order Comment: Comments: Fasting Comments: Fasting [...] By: #### L502.0250, L501.9985, L500.2500, L500.4100 #### [facility] [address] [place], [address] LIPID PROFILE Collected: 04/30/2018 Status: F Source: AHMEEK 8:34 AM [facility] [place] [place] REPOSITORY Order Comment: Comments: Fasting Comments: Fasting [...] By: #### L502.0250, L501.9985, L500.2500, L500.4100 #### [facility] [address] [place], [address] SURGERY VISIT REPORT Observed: 04/30/2018 Status: F Source: AHMEEK 8:04 AM [facility] [place] [place] REPOSITORY [facility] [address] [place] [address] OFFICE VISIT Date of Service: 04/25/18 MR#: [id number] Acct: [id number] Name: CAYLA CHISHOLM Rep #: [id number] : 1945 Provider: Promise Bond MD Age/Sex: 72/F Location: [facility] Status: Signed Intake Vital Signs04/25/18 Height 5 ft 5 in 04/25/18 Weight: 238 lb Intake Visit Reasons: Schedule Cscope Chief Complaint: follow-up visit Oncology Rn Required: No Is patient in pain?: No (All over abdominal soreness) Allergies labetalol Allergy (Verified 04/25/18 10:33) Unknown pitavastatin [From Livalo] Allergy (Verified 04/25/18 10:33) Other simvastatin [From Zocor] Allergy (Verified 04/25/18 10:33) Other budesonide [From Symbicort] Adverse Reaction (Verified 04/25/18 10:33) Other formoterol [From Symbicort] Adverse Reaction (Verified 04/25/18 10:33) Other hydrocodone [From Vicodin] Adverse Reaction (Verified 04/25/18 10:33) Other Rzlhuyn-Dwz-Iuk Reductase Inhibitor Adverse Reaction (Verified 04/25/18 10:33) [...] QDAY #90 tab 03/30/18 [Rx Confirmed 04/25/18] [facility] Medical History Diastolic congestive heart failure (Chronic) Atherosclerotic heart disease of [place] coronary artery without angina pectoris (Chronic) Long-term [...] states in April 2017 she had an HI. ROS General General: Yes fatigue; no weight [...] for the colon cleansing preparation. One day clears, MiraLAX Dulcolax prep, Promise Bond M.D. Pager: [phone] [facility] [address] [place] [address], [facility], [address] [place] [address] Office: [phone] Orders Orders: Plan Detail Follow Up Will schedule colonoscopy Coding Level of Care Code Off vis,new,level 2 Diagnoses Screening for colon cancer Z12.11 04/30/18 0804 <Electronically signed by Promise Bond MD> Date Promise Bond MD Cosigner Signature: Date (if applicable) CC: Quique Mims MD; Ezekiel Perez MD INTERNAL MEDICINE Observed: 04/03/2018 Status: F Source: ERIKA OFFICE VISIT 3:56 PM [facility] Internal Medicine [address] [place] [address] [place] [address] OFFICE VISIT Date of Service: 03/30/18 MR#: [id number] Acct: [id number] Name: CAYLA CHISHOLM Rep #: [id number] : 1945 Provider: Quique Mims MD Age/Sex: 72/F Location: [facility] Status: Signed Intake Vital Signs03/30/18 Height 5 [...] Vicodin] Adverse Reaction (Verified 01/26/18 07:57) Other Erhxjjn-Jmd-Efq Reductase Inhibitor Adverse Reaction (Verified 01/26/18 07:57) [...] QDAY #90 tab 03/30/18 [Rx Confirmed 03/30/18] [facility] Medical History Diastolic congestive heart failure (Chronic) Atherosclerotic heart disease of [place] coronary artery without angina pectoris (Chronic) Long-term [...] Pure hypercholesterolemia E78.00 Hyperlipidemia type: pure hypercholesterolemia Health care maintenance Z00.00 04/03/18 1556 <Electronically signed by Quique Mims MD> Date Quique Mims MD Cosigner Signature: Date (if applicable) CC: INTERNAL MEDICINE Observed: 01/26/2018 Status: F Source: ERIKA OFFICE VISIT 1:06 PM [facility] [place] [place] REPOSITORY [facility] [address] [place] [address] OFFICE VISIT Date of Service: 01/26/18 MR#: [id number] Acct: [id number] Name: CAYLA CHISHOLM Rep #: [id number] : 1945 Provider: Quique Mims MD Age/Sex: 72/F Location[place] [facility] [place] Status: Signed Intake Vital Signs01/26/18 Height 5 [...] Vicodin] Adverse Reaction (Verified 01/26/18 07:57) Other Hcmvjfh-Nfk-Sib Reductase Inhibitor Adverse Reaction (Verified 01/26/18 07:57) [...] QDAY #90 cap 01/26/18 [Rx Confirmed 01/26/18] [facility] Medical History Diastolic congestive heart failure (Chronic) Atherosclerotic heart disease of [place] coronary artery without angina pectoris (Chronic) Long-term [...] acute distress Orientation: alert, oriented x3, awake HENNE Head: atraumatic, normocephalic Ears: hearing grossly normal [...] and Pulmo. This note was generated with [employer] W[employer] dictation software. It may contain incorrect words, [...] ECHOCARDIOGRAM COMPLETE Observed: 12/19/2017 Status: F Source: AHMEEK 1:14 PM [facility] [place] [place] REPOSITORY [facility] Cardiovascular Services [address] [place] [address] Echo Complete 12/19/17 0856 MR#: [id number] Acct: [id number] Name: CAYLA CHISHOLM Rep #: [id number] : 1945 72 From: Ezekiel Perez MD Attending Dr: Quique Mims MD Status: REG I Ordering Dr: Quique Mims MD Date: 12/19/17 Location: [facility] Sex: F C Admitted: Reason For [...] Physician: Quique Mims Performed By: Tamiko Joy, RDCS, RVT 12/19/17 1314 Date Ezekiel Perez MD CC: Quique Mims MD Date Dictated: 12/19/17 0856 Date Transcribed: 12/19/17 1314 Space Studies Faculty Member: Signed INTERNAL MEDICINE Observed: 12/15/2017 Status: F Source: ERIKA OFFICE VISIT 1:43 PM [facility] Internal Medicine [address] [place] [address] OFFICE VISIT Date of Service: 12/11/17 MR#: [id number] Acct: [id number] Name: CAYLA CHISHOLM Rep #: [id number] : 1945 Provider: Quique Mims MD Age/Sex: 72/F Location[place] [facility] [place] Status: Signed Intake Vital Signs12/11/17 Height 5 [...] Vicodin] Adverse Reaction (Verified 10/30/17 11:02) Other Khtafmv-Ogq-Fzo Reductase Inhibitor Adverse Reaction (Verified 10/30/17 11:02) [...] heart failure (Chronic) Atherosclerotic heart disease of [place] coronary artery without angina pectoris (Chronic) Long-term [...] 12/11/2017 Status: F Source: ERIKA 7:48 AM [facility] [place] [place] REPOSITORY TYPE CODE TESTS RESULT OUT OF [...] VLDL 59 Performed By: #### L500.4100 #### [facility] [address] [place], [address] INTERNAL MEDICINE Observed: 11/27/2017 Status: F Source: ERIKA OFFICE VISIT 1:29 PM [facility] [place] [place] REPOSITORY [facility] [address] [place] [address] [place] [address] OFFICE VISIT Date of Service: 11/27/17 MR#: [id number] Acct: [id number] Name: CAYLA CHISHOLM Rep #: [id number] : 1945 Provider: Quique Mims MD Age/Sex: 72/F Location: [facility] Status: Signed Intake Vital Signs11/27/17 Height 5 ft 3 in 11/27/17 Weight: 247 lb 11/27/17 Body Mass Index (BMI) 43.7 11/27/17 Blood [...] Vicodin] Adverse Reaction (Verified 10/30/17 11:02) Other Swqkheu-Adq-Ipw Reductase Inhibitor Adverse Reaction (Verified 10/30/17 11:02) [...] heart failure (Chronic) Atherosclerotic heart disease of [place] coronary artery without angina pectoris (Chronic) Long-term [...] next visit. This note was generated with 8[employer]y Wear dictation software. It may contain incorrect words, [...] CARDIOLOGY VISIT Observed: 11/01/2017 Status: F Source: AHMEEK REPORT 8:22 AM [facility] [place] [place] REPOSITORY [facility] [address] [place] [address] OFFICE VISIT Date of Service: 10/30/17 MR#: [id number] Acct: [id number] Name: CAYLA CHISHOLM Rep #: [id number] : 1945 Provider: Марина Lambert Age/Sex: 72/F [place] [facility] Status: Signed [facility] HPI Details: CAYLA CHISHOLM, is a 72 [...] Lt brachial Intake Visit Reasons: 6 M FU Oncology Rn Required: No Accompanied by: Is patient in pain?: No Allergies labetalol Allergy (Verified 10/30/17 11:02) Unknown pitavastatin [From Livalo] Allergy (Verified 10/30/17 11:02) Other simvastatin [From Zocor] Allergy (Verified 10/30/17 11:02) Other budesonide [From Symbicort] Adverse Reaction (Verified 10/30/17 11:02) Other formoterol [From Symbicort] Adverse Reaction (Verified 10/30/17 11:02) Other hydrocodone [From Vicodin] Adverse Reaction (Verified 10/30/17 11:02) Other Zbdlknr-Gvy-Vjt Reductase Inhibitor Adverse Reaction (Verified 10/30/17 11:02) [...] heart failure (Chronic) Atherosclerotic heart disease of [place] coronary artery without angina pectoris (Chronic) Long-term [...] 65% Assessment AND Plan 1. 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 transplanted heart: [place] heart Essential hypertension I10 Hypertension type: essential hypertension Pure hypercholesterolemia E78.00; E78.0 Hyperlipidemia type: pure hypercholesterolemia PAF (paroxysmal atrial fibrillation) I48.0 Coding Level of Care Code Off vis,est,level 3 Diagnoses Atherosclerosis of [place] coronary artery of [place] heart without angina pectoris I25.10 [place] vs. transplanted heart: [place] heart Essential hypertension I10 Hypertension type: essential hypertension Pure hypercholesterolemia E78.00; E78.0 Hyperlipidemia type: pure hypercholesterolemia PAF (paroxysmal atrial fibrillation) I48.0 10/30/17 1538 <Electronically signed by Марина FERGUSON> Date Марина FERGUSON 11/01/17 0822<Electronically signed by Jose Sánchez MD> Cosigner Signature: Date (if applicable) Jose Sánchez MD CC: Quique Mims MD PULMONARY VISIT REPORT Observed: 10/25/2017 Status: F Source: AHMEEK 10:52 AM [facility] [place] [place] REPOSITORY Pul[facility] Medicine of [address] [place] [address] OFFICE VISIT Date of Service: 10/25/17 MR#: [id number] Acct: [id number] Name: CAYLA CHISHOLM Rep #: [id number] : 1945 Provider: Arya Robertson D.O. Age/Sex: 71/F Location: [facility] Status: Signed Assessment AND Plan 1. [...] placed to discontinue its use accordingly. 2. SVEEN (obstructive sleep apnea) G47.33 Plan The patient is benefiting symptomatically from the use of nocturnal CPAP therapy, which will be continued without change. 3. Obesity E66.9 Plan Weight loss through dietary modification and a graded exercise regimen is strongly encouraged. Plan Detail Follow Up 6 Months (VICKI) HPI HPI Comments Details: The patient is [...] rehabilitation in the past. She currently utilizes [facility] is her DME provider. Pulmonary function testing [...] 138/68 Intake Visit Reasons: 6 M FU [facility] Vendor: [employer] Accompanied by: Self Allergies labetalol Allergy (Verified 10/25/17 10:05) Unknown pitavastatin [From Livalo] Allergy (Verified 10/25/17 10:05) Other simvastatin [From Zocor] Allergy (Verified 10/25/17 10:05) Other budesonide [From Symbicort] Adverse Reaction (Verified 10/25/17 10:05) Other formoterol [From Symbicort] Adverse Reaction (Verified 10/25/17 10:05) Other hydrocodone [From Vicodin] Adverse Reaction (Verified 10/25/17 10:05) Other Lwyfcxr-Eev-Atw Reductase Inhibitor Adverse Reaction (Verified 10/25/17 10:05) [...] BID #60 tab 10/11/17 [Rx Confirmed 10/25/17] PFS Medical History Long-term use of high-risk medication [...] MD MICROALB:CREAT Collected: 10/25/2017 Status: F Source: [facility] 9:26 AM [facility] [place] [place] REPOSITORY TYPE CODE TESTS RESULT OUT OF RANGE REFERENCE UNITS LAB L501.1200 NO RANGE EST. mg/dL Normal UR CREAT 88.40 LAB L502.0500 NO RANGE EST. mg/L Normal 35.4 MICROALBUMIN ,UR LAB L502.0600 <30 mg/g CRE mg/g CRE High 40.0 MALB:CREAT Performed By: #### L502.0250, L500.4050 #### [facility] [address] [place], [address] COMPREHENSIVE METABOLIC Collected: 10/25/2017 Status: F Source: [facility] PROFIL 9:26 AM [facility] [place] [place] REPOSITORY TYPE CODE TESTS RESULT OUT OF [...] 7 Performed By: #### L502.0250, L500.4050 #### [facility] [address] [place], [address] INTERNAL MEDICINE Observed: 10/12/2017 Status: F Source: [facility] OFFICE VISIT 12:08 PM [facility] [place] [place] REPOSITORY [facility] [address] [place] [address] [place] [address] OFFICE VISIT Date of Service: 10/11/17 MR#: [id number] Acct: [id number] Name: CAYLA CHISHOLM Rep #: [id number] : 1945 Provider: Timmy Ndiaye NP Age/Sex: 71/F Location[place] [facility] [place] Status: Signed Intake Vital Signs10/11/17 Height 5 [...] Vicodin] Adverse Reaction (Verified 09/27/17 07:52) Other Gsabwvn-Bwj-Psh Reductase Inhibitor Adverse Reaction (Verified 09/27/17 07:52) [...] BID #60 tab 10/11/17 [Rx Confirmed 10/11/17] [facility] Medical History Long-term use of high-risk [...] eye exams, but has not seen a chrome worker. She was provided with a referral to [...] does follow with Dr. Robertson and Brittany Parsons, SHERRIE, in pulmonology and is hoping that she [...] <Electronically signed by Timmy LAWSON> Date Timmy Zelda SPONGE FISHERMAN-C Yelitzaigner Signature: Date (if applicable) CC: PULMONARY FUNCTION Observed: 10/11/2017 Status: F Source: [facility] REPORT COMP 5:53 PM [facility] [place] REPOSITORY [facility] Pulmonary Services/Neurology [address] [place] [address] MR#: [id number] Acct: [id number] Name: CAYLA CHISHOLM Rep #: [id number] : 1945 71 From: Toan Arceo MD Referring Dr: Brittany Parsons SPONGE FISHERMAN Status: REG CLI Ordering Dr: Date: Location: [facility] [place] Sex: F C COMPLETE PULMONARY FUNCTION TEST INTERPRETATION Brief HPI: Patient is a 71 year old female, currently under the care of Brittany Parsons, who presents to [facility] for complete pulmonary function tests secondary to [...] has been improvement compared to previous study. 10/11/17 3923 <Electronically signed by Toan Arceo MD> Date Toan Arceo MD CC: Toan Arceo MD; Brittany Parsons; Quique Mims MD Date Dictated: 10/11/171749 Date Transcribed: 10/11/171749 Space Studies Faculty Member: ROYCE Signed 6 MINUTE WALK TEST Observed: 10/02/2017 Status: F Source: ERIKA 12:23 PM [facility] [place] REPOSITORY [facility] Pulmonary Services/Neurology [address] [place] [address] MR#: [id number] Acct: [id number] Name: CAYLA CHISHOLM Rep #: [id number] : 1945 71 From: Arya Robertson DO Referring Dr: Arya Robertson D.O. Date: Ordering Dr: Sex: F C Location: PSN PSN 6 Minute Walk Test - 6 Minute Walk Test 6 Minute Walk Test: 6 Minute Walk Test PSN:6-Minute Walk Test Start: 10/02/17 11:10 Freq: Status: Active Protocol: RESP.6MINW Document 10/02/17 11:00 EW (Rec: 10/02/17 11:13 EW [id number]) 6 Minute Walk Test Date Performed 10/02/17 [...] CC: Date Dictated: 10/02/17 1222 Date Transcribed: 10/02/17 1222 Space Studies Faculty Member: Arya Robertson DO Signed PULMONARY VISIT REPORT Observed: 09/29/2017 Status: F Source: [facility] 2:55 PM [facility] Pulmonary Medicine of [address] [place] [address] OFFICE VISIT Date of Service: 09/27/17 MR#: [id number] Acct: [id number] Name: CAYLA CHISHOLM Rep #: [id number] : 1945 Provider: Brittany Parsons Age/Sex: 71/F [place] [facility] [place] Status: Signed with Addenda ADDENDUM by Brittany Parsons on 09/29/17 at 1454 Addendum entered and electronically signed by LULU Wong 09/29/17 14:54: She is using and benefiting from current supplemental oxygen use. 09/29/17 0695 <Electronically signed by Brittany LAWSON> Date Brittany [...] 40.4 Intake Visit Reasons: 1 W FU Oncology Rn Required: No Allergies labetalol Allergy (Verified 09/27/17 07:52) Unknown pitavastatin [From Livalo] Allergy (Verified 09/27/17 07:52) Other simvastatin [From Zocor] Allergy (Verified 09/27/17 07:52) Other budesonide [From Symbicort] Adverse Reaction (Verified 09/27/17 07:52) Other formoterol [From Symbicort] Adverse Reaction (Verified 09/27/17 07:52) Other hydrocodone [From Vicodin] Adverse Reaction (Verified 09/27/17 07:52) Other Waqwzkd-Hri-Vkk Reductase Inhibitor Adverse Reaction (Verified 09/27/17 07:52) [...] QAM #30 tab 09/26/17 [Rx Confirmed 09/27/17] [facility] Medical History Long-term use of high-risk [...] F Source: ERIKA OFFICE VISIT 5:57 PM [facility] Medicine [address] [place] [address] [place] [address] OFFICE VISIT Date of Service: 09/26/17 MR#: [id number] Acct: [id number] Name: CAYLA CHISHOLM Rep #: [id number] : 1945 Provider: Quique Mims MD Age/Sex: 71/F Location[place] [facility] [place] Status: Signed Intake Vital Signs09/26/17 Height 5 [...] Vicodin] Adverse Reaction (Verified 09/19/17 07:47) Other Glrlbuo-Swa-Csq Reductase Inhibitor Adverse Reaction (Verified 09/19/17 07:47) [...] x3 Other: On Oxygen by nasal cannula. [facility] Head: normal to inspection, normocephalic, atraumatic [...] significantly elevated. This note was generated with MeetCastation software. It may contain incorrect words, spelling, [...] E11.9 Hyperlipidemia, unspecified hyperlipidemia type E78.5 09/27/17 1757 <Electronically signed by Quique Mims MD> Date Quique Mims MD Cosigner Signature: Date (if applicable) CC: LIPID PROFILE Collected: 09/27/2017 Status: F Source: ERIKA 8:56 AM [facility] [place] REPOSITORY TYPE CODE TESTS RESULT OUT OF [...] VLDL 58 Performed By: #### L500.4100 #### [facility] [address] [place], [address] HEMOGLOBIN A1C Collected: 09/27/2017 Status: F Source: [facility] 8:56 AM [facility] [place] [place] REPOSITORY TYPE CODE TESTS RESULT OUT OF RANGE REFERENCE UNITS LAB L501.9985 4.2-6.3 % High HGB A1C 6.7 Performed By: #### L501.9985 #### [facility] [address] [place], [address] PULMONARY VISIT REPORT Observed: 09/19/2017 Status: F Source: [facility] 8:25 AM [facility] [place] REPOSITORY [facility] Medicine of [address] [place] [address] OFFICE VISIT Date of Service: 09/19/17 MR#: [id number] Acct: [id number] Name: CAYLA CHIHSOLM Rep #: [id number] : 1945 Provider: Brittany Parsons Age/Sex: 71/F [place] [facility] [place] Status: Signed Assessment AND Plan 1. COPD [...] for 3 days Follow Up 1 Week ([facility]) HPI cough/cold : Chief Complaint: cough HPI [...] on Monday and Monday and utilize Tylenol xjfi-zhs-ekydbcs for this fever, which was effective. She [...] 41.1 Intake Visit Reasons: cough/cold DME Vendor: [employer] Accompanied by: Self Allergies labetalol Allergy (Verified 09/19/17 07:47) Unknown pitavastatin [From Livalo] Allergy (Verified 09/19/17 07:47) Other simvastatin [From Zocor] Allergy (Verified 09/19/17 07:47) Other budesonide [From Symbicort] Adverse Reaction (Verified 09/19/17 07:47) Other formoterol [From Symbicort] Adverse Reaction (Verified 09/19/17 07:47) Other hydrocodone [From Vicodin] Adverse Reaction (Verified 09/19/17 07:47) Other Vrhguct-Ccd-Ute Reductase Inhibitor Adverse Reaction (Verified 09/19/17 07:47) [...] QDAY #30 tab 09/19/17 [Rx Confirmed 09/19/17] [facility] Medical History Long-term use of high-risk [...] <Electronically signed by Brittany LAWSON> Date Brittany GRIFFITHC Cosigner Signature: Date (if applicable) CC: Quique Mims MD ALLERGIES ALLERGIES DATE TYPE / CODE NAME / CODE REACTION SEVERITY SOURCE 08/10/2018 Drug Thwzqcq-Rli-Mcs Other Unknown [place] Allergy/416 Reductase Community 808714([facility] Inhibitor/[id number] Hospital ED CT) 5(RXNORM) Repository 08/10/2018 Drug hydrocodone/Y441837 Other Unknown [place] Allergy/416 554(RXNORM) Community 309833([facility] ED CT) Repository 08/10/2018 Drug labetalol/[id number] Unknown Unknown [place] Allergy/416 9(RXNORM) Community 568449([facility] ED CT) Repository 08/10/2018 Drug simvastatin/I355245 Other Unknown [place] Allergy/416 621(RXNORM) Community 909915([facility] ED CT) Repository 08/10/2018 Drug budesonide/I9970401 Other Unknown [place] Allergy/416 14(RXNORM) Community 773536([facility] ED CT) Repository 08/10/2018 Drug formoterol/O5457357 Other Unknown [place] Allergy/416 21(RXNORM) Community 716090([facility] ED CT) Repository 08/10/2018 Drug pitavastatin/E54756 Other Unknown [place] Allergy/416 3206(RXNORM) Community 740477([facility] ED CT) Repository 06/20/2018 DRUG ATORVASTATIN OTHER: SEE C [facility] INGREDI/419 CALCIUM Other [place] 226460([facility] Repository ED CT) 06/20/2018 Drug NTEUCXP-FYP-CBQ OTHER: SEE C [facility] Class/39040 REDUCTASE Other [place] 1003(SNOMED INHIBITORS Repository CT) 02/13/2012 DRUG/155105 HYDROCODONE-ACETAMI HIVES [facility] 003(SNOMED NOPHEN Other [place] CT) Repository ENCOUNTERS ENCOUNTERS ADMIT/DISCHARGE ACCOUNT NUMBER ADMITTING ENCOUNTER LOCATION SOURCE CLASS 08/10/2018/08/10/19 [id number] Emergency [address] ding:ED Repository 08/06/2018 [id number] Ambulatory [facility] Repository 07/06/2018/07/06/20 [id number] Ambulatory BMSBuilding: [place] 18 BMS.[facility] Repository 07/04/2018/07/04/20 [id number] Ambulatory BMSBuilding: [place] 18 BMS.[facility] Repository 06/28/2018/06/28/20 [id number] Emergency [address] ding:ED Repository 06/24/2018/06/24/20 [id number] Emergency [address] ding:ED Repository 06/21/2018/06/21/20 [id number] Ambulatory BMSBuilding: [place] 18 BMS.[facility] Repository 06/20/2018/06/20/20 [id number] Emergency [address] Repository 06/01/2018/06/01/20 [id number] Ambulatory BMSBuilding: [place] 18 BMS.[facility] Repository 06/01/2018 [id number] Ambulatory [facility] ding:LAB Repository 06/01/2018/06/01/20 [id number] Ambulatory BMSBuilding: [place] 18 BMS.[facility] Repository 05/22/2018 [id number] Ambulatory [facility] ding:OPBD Repository 05/16/2018/05/16/20 [id number] Ambulatory BMSBuilding: [place] 18 BMS.[facility] Repository 05/16/2018/05/16/20 [id number] Ambulatory [address] ding:ENRoom: Repository AC14 05/16/2018/05/16/20 [id number] Ambulatory BMSBuilding: [place] 18 BMS.[facility] Repository 05/16/2018 [id number] Ambulatory BMSBuilding: [facility] Repository 05/08/2018 [id number] Ambulatory [facility] ding:OPBD Repository 05/01/2018/05/01/20 [id number] Ambulatory BMSBuilding: [place] 18 BMS.[facility] Repository 04/30/2018 [id number] Ambulatory [facility] ding:LAB Repository 04/25/2018/04/25/20 [id number] Ambulatory BMSBuilding: [place] 18 BMS.[facility] Repository 04/19/2018 [id number] Ambulatory [facility] ding:PSN Repository 03/30/2018/03/30/20 [id number] Ambulatory BMSBuilding: [place] 18 BMS.[facility] Repository 02/13/2018 [id number] Ambulatory BMS [facility] Repository 01/26/2018/01/27/20 [id number] Ambulatory BMSBuilding: [place] 18 BMS.[facility] Repository 12/29/2017/12/30/19 [id number] Ambulatory BMSBuilding: [place] 18 BMS.[facility] Repository 12/19/2017 [id number] Ambulatory [facility] ding:[facility] Repository 12/19/2017 [id number] Ambulatory BMSBuilding: [place] [facility] Repository 12/11/2017/12/12/19 [id number] Ambulatory BMSBuilding: [place] 18 BMS.[facility] Repository 12/11/2017 [id number] Ambulatory [facility] ding:LAB.FUT Repository URE 11/27/2017/11/28/19 [id number] Ambulatory BMSBuilding: [place] 18 BMS.[facility] Repository 10/30/2017 [id number] Ambulatory BMSBuilding: [place] BMS.[facility] Repository 10/30/2017/10/31/19 [id number] Ambulatory BMSBuilding: [place] 18 BMS.[facility] Repository 10/27/2017 [id number] Ambulatory BMSBuilding: [place] BMS.[facility] Repository 10/25/2017/10/26/19 [id number] Ambulatory BMSBuilding: [place] 18 BMS.[facility] Repository 10/25/2017 [id number] Ambulatory [facility] ding:LAB Repository 10/11/2017/10/12/19 [id number] Ambulatory BMSBuilding: [place] 18 BMS.[facility] Repository 10/11/2017 [id number] Ambulatory BMSBuilding: [facility] Repository 10/10/2017 [id number] Ambulatory [facility] ding:PSN Repository 10/02/2017 [id number] Ambulatory [facility] ding:PSN Repository 10/02/2017 [id number] Ambulatory BMSBuilding: [facility] Repository 09/27/2017 [id number] Ambulatory [facility] ding:LAB Repository 09/27/2017/09/28/19 [id number] Ambulatory BMSBuilding: [place] 18 BMS.[facility] Repository 09/26/2017/09/27/19 [id number] Ambulatory BMSBuilding: [place] 18 BMS.[facility] Repository 09/19/2017/09/19/19 [id number] Ambulatory BMSBuilding: [place] 18 BMS.[facility] Repository PAYERS PAYERS ENCOUNTER GUARANTOR PAYER SUBSCRIBER SOURCE 08/10/2018 CAYLA A Primary CAYLA A [place] [id number] Insurance:[facility]DOB: [address], PART A [facility] [id number] [address]Lag: Number: Repository [id number] () Date:2018-08-10 08/10/2018 Secondary CAYLA A [place] Insurance:PHYSICIAN LIZB: [facility] [id number] Hospital Number: Repository [id number] Date:6582-10-47RG PREMA BERNAL [address]PM: 08/10/2018 Tertiary NOT GIVENUNK [place] Insurance:SELF PAY [facility] Number: Effective Repository Date:2018-08-10 08/06/2018 Cayla Primary [facility] HofstetterDOB: Insurance:MedicarePol [facility] HospitaltetterDOB: System [id number] icy Number: Effective [id number] [address]: [place] [address]Hvl: () 08/06/2018 Secondary [facility] Insurance:MedicarePol HofstetterDOB: System icy Number: Effective [id number] Repository Date: 07/06/2018 CAYLA Mills Primary CAYLA Mills [place] [id number] Insurance:MEDICARE HOFSTETTERDOB: [address] [place] [id number] County Hospital [address]Ysg: Number: Repository [id number] () Date:2018-06-01 07/06/2018 Secondary CAYLA Mills [place] Insurance:PHYSICIAN SHAEASHANTIERDOB: Community MUTUAL INS [facility] [id number] Hospital Number: Repository [id number] Date:4573-35-56QB [address] [address]DK: 07/06/2018 Tertiary NOT GIVENUNK [place] Insurance:SELF PAY [facility] Number: Effective Repository Date:2018-07-05 07/04/2018 CAYLA A Primary CAYLA Mills [place] [id number] Insurance:MEDICARE HOFSTETTERDOB: [address] [id number] County Hospital [address]Wwo: Number: Repository [id number] (HP) Date:2018-06-29 07/04/2018 Secondary CAYLA A [place] Insurance:PHYSICIAN SHAEFSTETTERDOB: Community MUTUAL INS [facility] [id number] Hospital Number: Repository [id number] Date:4258-41-58SB[address] [address]VD: 07/04/2018 Tertiary NOT GIVENUNK [place] Insurance:SELF PAY [facility] Number: Effective Repository Date:2018-07-04 06/28/2018 CAYLA A Primary CAYLA A [place] [id number] Insurance:MEDICARE HOFSTETTERDOB: [place] [address] [facility] [id number] County Hospital [address]Ibf: Number: Repository [id number] (HP) Date:2018-06-28 06/28/2018 Secondary CAYLA A [place] Insurance:PHYSICIAN CAROLINEDOB: Community MUTUAL INS COPolicy [id number] Hospital Number: Repository [id number] Date:7831-16-06TD [address] [place] [address]LK: 06/28/2018 Tertiary NOT GIVENUNK [place] Insurance:SELF PAY [facility] Number: Effective Repository Date:2018-06-28 06/24/2018 CAYLA A Primary CAYLA A [place] [id number] Insurance:MEDICARE HOFSTETTERDOB: Community [address] [place], [place] [address], [place] A [facility] [id number] County Hospital [address]Kdv: Number: Repository [id number] (HP) Date:2018-06-24 06/24/2018 Secondary CAYLA A [place] Insurance:PHYSICIAN LIZB: [facility] [id number] Hospital Number: Repository [id number] Date:3141-18-95DU [address] [address]KE: 06/24/2018 Tertiary NOT GIVENUNK [place] Insurance:SELF PAY [facility] Number: Effective Repository Date:2018-06-24 06/21/2018 CAYLA A Primary CAYLA A [place] [id number] Insurance:MEDICARE HOFSTETTERDOB: Community [address] [facility] [id number] County Hospital [address]Thy: Number: Repository [id number] (HP) Date:2018-06-21 06/21/2018 Secondary CAYLA A [place] Insurance:PHYSICIAN SOFIAERDOB: Community MUTUAL INS COPolicy [id number] Hospital Number: Repository [id number] Date:8999-01-44IB[address] [address]YP: 06/21/2018 Tertiary NOT GIVENUNK [place] Insurance:SELF PAY [facility] Number: Effective Repository Date:2018-06-21 06/01/2018 CAYLA A Primary CAYLA A [place] [id number] Insurance:MEDICARE HOFSTETTERDOB: Community [address] [facility] [id number] County Hospital [address]Tdr: Number: Repository [id number] (HP) Date:2018-05-31 06/01/2018 Secondary CAYLA A [place] Insurance:PHYSICIAN LIZB: Community MUTUAL INS [facility] [id number] Hospital Number: Repository [id number] Date:3963-50-01RZ[address] [address]NW: 06/01/2018 Tertiary NOT GIVENUNK [place] Insurance:SELF PAY [facility] Number: Effective Repository Date:2018-06-01 06/01/2018 CAYLA A Primary CAYLA A [place] [id number] Insurance:MEDICARE HOFSTETTERDOB: Community [address] olic [id number] County Hospital [address]Bqq: Number: Repository [id number] (HP) Date:2018-06-01 06/01/2018 Secondary CAYLA A [place] Insurance:PHYSICIAN LIZB: Community MUTUAL INS [facility] [id number] Hospital Number: Repository [id number] Date:0068-34-88VT [address] [address]TM: 06/01/2018 Tertiary NOT GIVENUNK [place] Insurance:SELF PAY [facility] Number: Effective Repository Date:2018-06-01 06/01/2018 CAYLA A Primary CAYLA A [place] [id number] Insurance:MEDICARE HOFSTETTERDOB: Community [address] [facility] [id number] County Hospital [address]Dkk: Number: Repository [id number] (HP) Date:2018-03-30 06/01/2018 Secondary CAYLA A [place] Insurance:PHYSICIAN HOFSTETTERDOB: Community MUTUAL INS [facility] [id number] Hospital Number: Repository [id number] Date:0390-52-86DO [address] [address]QM: 06/01/2018 Tertiary NOT GIVENUNK [place] Insurance:SELF PAY [facility] Number: Effective Repository Date:2018-06-01 05/22/2018 CALYA A Primary CAYLA A [place] [id number] Insurance:MEDICARE HOFSTETTERDOB: Community [address] [facility] [id number] County Hospital [address]Nmd: Number: Repository [id number] (HP) Date:2018-05-08 05/22/2018 Secondary CAYLA A [place] Insurance:PHYSICIAN LIZB: [facility] [id number] Hospital Number: Repository [id number] Date:5572-49-57GI [address] [address]VI: 05/22/2018 Tertiary NOT GIVENUNK [place] Insurance:SELF PAY [facility] Number: Effective Repository Date:2018-05-08 05/16/2018 CAYLA A Primary CAYLA A [place] [id number] Insurance:MEDICARE HOFSTETTERDOB: Community [address] [facility] [id number] Hospital [place] [address]Rvj: Number: Repository [id number] (HP) Date:2018-05-16 05/16/2018 Secondary CAYLA A [place] Insurance:PHYSICIAN SHAEFSTETTERDOB: Community MUTUAL INS [facility] [id number] Hospital Number: Repository [id number] Date:6849-00-84LT [address] [address]IW: 05/16/2018 Tertiary NOT GIVENUNK [place] Insurance:SELF PAY [facility] Number: Effective Repository Date:2018-05-16 05/16/2018 CAYLA A Primary CAYLA [id number] Insurance:MEDICARE HOFSTETTERDOB: Community [address] olicy [id number] [place] [address]Phr: Number: Repository [id number] (HP) Date:2018-04-30 05/16/2018 Secondary CAYLA A [place] Insurance:PHYSICIAN LIZB: Community [facility] [id number] Hospital Number: Repository [id number] Date:1823-08-31OH[address] [address]GV: 05/16/2018 Tertiary NOT GIVENUNK [place] Insurance:SELF PAY [facility] Number: Effective Repository Date:2018-04-30 05/16/2018 CAYLA A Primary CAYLA A [place] [id number] Insurance:MEDICARE HOFSTETTERDOB: Community [address] [facility] [id number] Hospital [place] [address]Opd: Number: Repository [id number] (HP) Date:2018-04-30 05/16/2018 Secondary CAYLA A [place] Insurance:PHYSICIAN LIZB: Community MUTUAL INS [facility] [id number] Hospital Number: Repository [id number] Date:8874-48-14IB[address] [address]TW: 05/16/2018 Tertiary NOT GIVENUNK [place] Insurance:SELF PAY [facility] Number: Effective Repository Date:2018-05-16 05/16/2018 CAYLA A Primary CAYLA A [place] [id number] Insurance:MEDICARE HOFSTETTERDOB: Community [address] olic [id number] Hospital [place] [address]Zax: Number: Repository [id number] (HP) Date:2018-04-30 05/16/2018 Secondary CAYLA A [place] Insurance:PHYSICIAN HOFSTETTERDOB: Community MUTUAL INS [facility] [id number] Hospital Number: Repository [id number] Date:5158-43-65LS[address] [address]YO: 05/16/2018 Tertiary NOT GIVENUNK [place] Insurance:SELF PAY [facility] Number: Effective Repository Date:2018-05-16 05/08/2018 CAYLA A Primary CAYLA A [place] [id number] Insurance:MEDICARE HOFSTETTERDOB: [place] [address] olicy [id number] County Hospital [address]Hqs: Number: Repository [id number] (HP) Date:2018-03-30 05/08/2018 Secondary CAYLA A [place] Insurance:PHYSICIAN LIZB: Community MUTUAL INS [facility] [id number] Hospital Number: Repository [id number] Date:[id number] [address]RW: 05/08/2018 Tertiary NOT GIVENUNK [place] Insurance:SELF PAY [facility] Number: Effective Repository Date:2018-03-30 05/01/2018 Alex Primary CAYLA A [place] [id number] Insurance:MEDICARE HOFSTETTERDOB: [address] [place] [id number] [address]Fej: Number: Repository [id number] (HP) Date:2017-10-25 05/01/2018 Secondary CAYLA A Erika Insurance:PHYSICIAN SOFIAERDOB: Community MUTUAL INS COPolicy [id number] Hospital Number: Repository [id number] Date:[id number] [address]ZM: 05/01/2018 Tertiary NOT GIVENUNK [place] Insurance:SELF PAY [facility]: Effective Repository Date:2018-04-17 04/30/2018 CAYLA A Primary CAYLA A [place] [id number] Insurance:MEDICARE HOFSTETTERDOB: [address] [place] [id number] [place] [address]Rij: Number: Repository [id number] (HP) Date:2018-04-30 04/30/2018 Secondary CAYLA A [place] Insurance:PHYSICIAN HOFSTESIDNEYERDOB: Community MUTUAL INS COPolicy [id number] Hospital Number: Repository [id number] Date:5528-49-92WG [address] [address]XE: 04/30/2018 Tertiary NOT GIVENUNK Erika Insurance:SELF PAY [facility] Number: Effective Repository Date:2018-04-30 04/25/2018 CAYLA A Primary CAYLA A [place] [id number] Insurance:MEDICARE HOFSTETTERDOB: Community [address] [place] [id number] [place] [address]Whi: Number: Repository [id number] (HP) Date:2018-04-10 04/25/2018 Secondary CAYLA A Erika Insurance:PHYSICIAN LIZB: Community MUTUAL INS [employer] [id number] Hospital Number: Repository [id number] Date:9782-73-10CS[address] [address]EG: 04/25/2018 Tertiary NOT GIVENUNK Erika Insurance:SELF PAY [facility] Number: Effective Repository Date:2018-04-25 04/19/2018 CAYLA A Primary CAYLA A [place] [id number] Insurance:MEDICARE HOFSTETTERDOB: Community [address] [place] [id number] [place] [address]Fsf: Number: Repository [id number] (HP) Date:2018-04-17 04/19/2018 Secondary CAYLA A [place] Insurance:PHYSICIAN MILENATESIDNEYERDOB: Community MUTUAL INS [employer]olicy [id number] Hospital Number: Repository [id number] Date:1873-61-31FA [address] [address]XR: 04/19/2018 Tertiary NOT GIVENUNK Erika Insurance:SELF PAY [facility] Number: Effective Repository Date:2018-04-17 03/30/2018 CAYLA A Primary CAYLA A [place] [id number] Insurance:MEDICARE HOFSTETTERDOB: Community [address] [place] [id number] [place] [address]Ich: Number: Repository [id number] (HP) Date:2018-01-26 03/30/2018 Secondary CAYLA A Erika Insurance:PHYSICIAN LIZB: Community MUTUAL INS [facility] [id number] Hospital Number: Repository [id number] Date:5396-91-01KS[address] [address]AL: 03/30/2018 Tertiary NOT GIVENUNK [place] Insurance:SELF PAY [facility] Number: Effective Repository Date:2018-03-30 02/13/2018 CAYLA A Primary CAYLA A [place] [id number] Insurance:MEDICARE HOFSTETTERDOB: [place] [address] [facility] [id number] [place] [address]Fds: Number: Repository [id number] (HP) Date:2018-02-13 02/13/2018 Secondary CAYLA A [place] Insurance:PHYSICIAN LIZB: Community MUTUAL INS [facility] [id number] Hospital Number: Repository [id number] Date:6378-39-67DE [address] [address]ML: 02/13/2018 Tertiary NOT GIVENUNK Erika Insurance:SELF PAY [facility] Number: Effective Repository Date:2018-02-13 01/26/2018 CAYLA A Primary CAYLA A [place] [id number] Insurance:MEDICARE HOFSTETTERDOB: Community [address] [facility] [id number] [place] [address]Gtw: Number: Repository [id number] (HP) Date:2017-12-11 01/26/2018 Secondary CAYLA A Erika Insurance:PHYSICIAN MILENATESIDNEYERDOB: Community MUTUAL INS [employer]icy [id number] Hospital Number: Repository [id number] Date:5409-44-97PI [address] [address]PX: 01/26/2018 Tertiary NOT GIVENUNK [place] Insurance:SELF PAY [facility] Number: Effective Repository Date:2018-01-15 12/29/2017 CAYLA A Primary CAYLA A Erika [id number] Insurance:MEDICARE HOFSTETTERDOB: [address] [place] [id number] County Hospital [address]Joy: Number: Repository [id number] () Date:2018-01-05 12/29/2017 Secondary CAYLA A [place] Insurance:PHYSICIAN CAROLINEDOB: Community MUTUAL INS [employer]icy [id number] Hospital Number: Repository [id number] Date:0843-44-69MK [address] [address]BW: 12/29/2017 Tertiary NOT GIVENUNK Erika Insurance:SELF PAY [facility] Number: Effective Repository Date:2018-01-05 12/19/2017 CAYLA A Primary CAYLA A Erika [id number] Insurance:MEDICARE HOFSTETTERDOB: Community [address] [place] [id number] [place] [address]Kzu: Number: Repository [id number] (HP) Date:2017-12-11 12/19/2017 Secondary CAYLA A Erika Insurance:PHYSICIAN SOFIAERDOB: Community MUTUAL INS [employer] [id number] Hospital Number: Repository [id number] Date:2707-47-65ZB [address] [address]LX: 12/19/2017 Tertiary NOT GIVENUNK [place] Insurance:SELF PAY [facility] Number: Effective Repository Date:2017-12-11 12/19/2017 CAYLA A Primary CAYLA A Erika [id number] Insurance:MEDICARE HOFSTETTERDOB: Community [address] [place] [id number] [place] [address]Luo: Number: Repository [id number] (HP) Date:2017-12-11 12/19/2017 Secondary CAYLA A Erika Insurance:PHYSICIAN HOFSTESIDNEYERDOB: Community MUTUAL INS [employer] [id number] Hospital Number: Repository [id number] Date:3525-13-26WY[address] [address]MX: 12/19/2017 Tertiary NOT GIVENUNK [place] Insurance:SELF PAY [facility] Number: Effective Repository Date:2017-12-19 12/11/2017 Alex Primary CAYLA A Erika [id number] Insurance:MEDICARE HOFSTETTERDOB: [address] [place] [id number] County Hospital [address]Ygd: Number: Repository [id number] (HP) Date:2017-10-11 12/11/2017 Secondary CAYLA A Erika Insurance:PHYSICIAN LIZB: Community MUTUAL INS [facility] [id number] Hospital Number: Repository [id number] Date:8415-92-46LL[address] [address]BG: 12/11/2017 Tertiary NOT GIVENUNK [place] Insurance:SELF PAY [facility] Number: Effective Repository Date:2017-12-08 12/11/2017 Alex Primary CAYLA A [place] [id number] Insurance:MEDICARE HOFSTETTERDOB: [address] [place] [id number] [place] [address]Dyz: Number: Repository [id number] (HP) Date:2017-10-25 12/11/2017 Secondary CAYLA A Erika Insurance:PHYSICIAN MILENATETTERDOB: Community MUTUAL INS [employer] [id number] Hospital Number: Repository [id number] Date:5525-05-17JM[address] [address]QB: 12/11/2017 Tertiary NOT GIVENUNK [place] Insurance:SELF PAY [facility] Number: Effective Repository Date:2017-10-25 11/27/2017 Alex Primary CA[place]LA [place] [id number] Insurance:MEDICARE HOFSTETTERDOB: [place] [address] [place] [id number] [place] [address]Ycn: Number: Repository [id number] (HP) Date:2017-11-27 11/27/2017 Secondary CAYLA A Erika Insurance:PHYSICIAN LIZB: Community MUTUAL INS [facility] [id number] Hospital Number: Repository [id number] Date:5485-17-28OF [address] [address]GS: 11/27/2017 Tertiary NOT GIVENUNK Erika Insurance:SELF PAY [facility] Number: Effective Repository Date:2017-11-27 10/30/2017 Alex Primary CAYLA A [place] [id number] Insurance:MEDICARE HOFSTETTERDOB: Community Second PART A [facility] [id number] Number: Repository [id number]: 330 [id number] [phone] (HP) Date:2017-07-07 10/30/2017 Secondary CAYLA A [place] Insurance:PHYSICIAN LIZB: Community MUTUAL INS [facility] [id number] Hospital Number: Repository [id number] Date:9017-93-69RV [address] [address]JV: 10/30/2017 Tertiary NOT GIVENUNK [place] Insurance:SELF PAY [facility] Number: Effective Repository Date:2017-07-07 10/30/2017 Alex Primary CAYLA A Erika [id number] Insurance:MEDICARE HOFSTETTERDOB: [address] [facility] [id number] [place] [address]Sbc: Number: Repository [id number] (HP) Date:2017-08-26 10/30/2017 Secondary CAYLA A [place] Insurance:PHYSICIAN SOFIAERDOB: Community MUTUAL INS [employer] [id number] Hospital Number: Repository [id number] Date:0772-02-76YU[address] [address]GO: 10/30/2017 Tertiary NOT GIVENUNK Erika Insurance:SELF PAY [facility] Number: Effective Repository Date:2017-10-30 10/27/2017 Alex Primary CAYLA [id number] Insurance:MEDICARE HOFSTETTERDOB: [address] [place] [id number] County Hospital [address]Vnk: Number: Repository [id number] (HP) Date:2017-10-27 10/27/2017 Secondary CAYLA A Erika Insurance:PHYSICIAN LIZB: Community MUTUAL INS [employer] [id number] Hospital Number: Repository [id number] Date:8856-48-00YI [address] [address]JK: 10/27/2017 Tertiary NOT GIVENUNK [place] Insurance:SELF PAY [facility] Number: Effective Repository Date:2017-10-27 10/25/2017 [facility] Primary CAYLA [place] [id number] Insurance:MEDICARE HOFSTETTERDOB: [address] [place] [id number] County Hospital [address]Vqd: Number: Repository [id number] (HP) Date:2017-07-03 10/25/2017 Secondary CAYLA A Erika Insurance:PHYSICIAN SOFIAERDOB: Community MUTUAL INS [employer] [id number] Hospital Number: Repository [id number] Date:8337-15-49BF[address] [address]TX: 10/25/2017 Tertiary NOT GIVENUNK [place] Insurance:SELF PAY [facility] Number: Effective Repository Date:2017-10-20 10/25/2017 [facility] Primary CAYLA [place]rika [id number] Insurance:MEDICARE HOFSTETTERDOB: [address] [facility] [id number] [place] [address]Hym: Number: Repository [id number] (HP) Date:2017-10-25 10/25/2017 Secondary CAYLA A Erika Insurance:PHYSICIAN HOFSTETTERDOB: Community MUTUAL INS [employer] [id number] Hospital Number: Repository [id number] Date:4084-96-23HV[address] [address]EJ: 10/25/2017 Tertiary NOT GIVENUNK [place] Insurance:SELF PAY [facility] Number: Effective Repository Date:2017-10-25 10/11/2017 Alex Primary CAYLA A Erika [id number] Insurance:MEDICARE HOFSTETTERDOB: Community Second PART A [facility] [id number] Number: Repository [id number]: 330 [id number] [phone] (HP) Date:2017-09-26 10/11/2017 Secondary CAYLA A [place] Insurance:PHYSICIAN LIZB: Community MUTUAL INS [employer] [id number] Hospital Number: Repository [id number] Date:4018-37-91TT[address] [address]CJ: 10/11/2017 Tertiary NOT GIVENUNK Erika Insurance:SELF PAY [facility] Number: Effective Repository Date:2017-10-11 10/11/2017 Alex Primary CAYLA A Erika [id number] Insurance:MEDICARE HOFSTETTERDOB: Community [address] [facility], PART A [facility] [id number] County Hospital [address]Zpc: Number: Repository [id number] (HP) Date:2017-08-16 10/11/2017 Secondary CAYLA A Erika Insurance:PHYSICIAN SOFIAERDOB: Community MUTUAL INS [employer] [id number] Hospital Number: Repository [id number] Date:1958-13-90XP [address] [address]ML: 10/11/2017 Tertiary NOT GIVENUNK [place]rika Insurance:SELF PAY [facility] Number: Effective Repository Date:2017-10-11 10/10/2017 Alex Primary CAYLA [id number] Insurance:MEDICARE HOFSTETTERDOB: Community Second PART A [facility] [id number] Number: Repository [id number]: 330 [id number] [phone] () Date:2017-08-16 10/10/2017 Secondary CAYLA A Erika Insurance:PHYSICIAN LIZB: Community MUTUAL INS [facility] [id number] Hospital Number: Repository [id number] Date:7644-49-66WW [address] [address]PI: 10/10/2017 Tertiary NOT GIVENUNK [place] Insurance:SELF PAY [facility] Number: Effective Repository Date:2017-08-16 10/02/2017 Alex Primary CAYLA A [place] [id number] Insurance:MEDICARE HOFSTETTERDOB: Community [address] [place] [address], PART A [facility] [id number] [place] [address]Ilz: Number: Repository [id number] () Date:2012-10-22 10/02/2017 Secondary CAYLA A [place] Insurance:PHYSICIAN LIZB: Community MUTUAL INS [facility] [id number] Hospital Number: Repository [id number] Date:7618-93-79GY [address] [address]UX: 10/02/2017 Tertiary NOT GIVENUNK [place]rika Insurance:SELF PAY [facility] Number: Effective Repository Date:2017-04-26 10/02/2017 Alex Primary CAYLA A Erika [id number] Insurance:MEDICARE HOFSTETTERDOB: Community [address] [place] [address], PART A [facility] [id number] [place] [address]Rdc: Number: Repository [id number] (HP) Date:2012-10-22 10/02/2017 Secondary CAYLA A Erika Insurance:PHYSICIAN HOFSTETTERDOB: Community MUTUAL INS [employer] [id number] Hospital Number: Repository [id number] Date:0096-57-31BR [address] [address]TH: 10/02/2017 Tertiary NOT GIVENUNK [place] Insurance:SELF PAY [facility] Number: Effective Repository Date:2017-10-02 09/27/2017 Alex Primary CA[place]LA [place] [id number] Insurance:MEDICARE HOFSTETTERDOB: Community Second PART A olic [id number] [facility] [place] Number: Repository [id number]: 330 [id number] [phone] () Date:2017-09-27 09/27/2017 Secondary CAYLA A [place] Insurance:PHYSICIAN MILENATETTERDOB: Community MUTUAL INS [employer] [id number] Hospital Number: Repository [id number] Date:5893-92-90ZG [address] [address]HV: 09/27/2017 Tertiary NOT GIVENUNK [place] Insurance:SELF PAY [facility] Number: Effective Repository Date:2017-09-27 09/27/2017 [facility] Primary CA[place]LA [place] [id number] Insurance:MEDICARE HOFSTETTERDOB: Community Second PART A [facility] [id number] [place] Number: Repository [address]Vbo: 330 [id number] [phone] () Date:2017-09-19 09/27/2017 Secondary CAYLA A [place] Insurance:PHYSICIAN SHAEFSTESIDNEYERDOB: Community MUTUAL INS [employer] [id number] Hospital Number: Repository [id number] Date:7842-85-26FS [address] [address]VO: 09/27/2017 Tertiary NOT GIVENUNK [place] Insurance:SELF PAY [facility] Number: Effective Repository Date:2017-09-19 09/26/2017 Alex Primary CAYLA A [place] [id number] Insurance:MEDICARE HOFSTETTERDOB: Community Second PART A [facility] [id number] Number: Repository [id number]: [phone] [id number] [phone] () Date:2017-08-16 09/26/2017 Secondary CAYLA Gene Erika Insurance:PHYSICIAN LIZB: Community MUTUAL INS [facility] [id number] Hospital Number: Repository [id number] Date:1562-15-43[address] [place] [address]PG: 09/26/2017 Tertiary NOT GIVENUNK Erika Insurance:SELF PAY [facility] Number: Effective Repository Date:2017-08-16 09/19/2017 Alex Primary CAYLA James [id number] Insurance:MEDICARE LIZB: Community Second PART A [facility] [id number] Number: Repository [id number]: ([phone] [id number] [phone] () Date:2017-09-18 09/19/2017 Secondary CAYLA James Insurance:PHYSICIAN LIZB: Community MUTUAL INS [facility] [id number] Hospital Number: Repository [id number] Date:5244-30-95[address] [place] [address]OJ: 09/19/2017 Tertiary NOT GIVENUNK Erika Insurance:SELF PAY [facility] Number: Effective Repository Date:2017-09-18
== END 2018-08-10 16:02 | disposition home or self-care (01) ==
PROVIDERS: Emergency Provider Emergency Medicine; Family Provider Internal Medicine; PCP Internal Medicine
DX: I48.0 Paroxysmal atrial fibrillation (principal); I25.10 Atherosclerotic heart disease of native coronary artery without angina pectoris; E11.9 Type 2 diabetes mellitus without complications; I10 Essential (primary) hypertension; E78.00 Pure hypercholesterolemia, unspecified; Z79.02 Long term (current) use of antithrombotics/antiplatelets; Z79.51 Long term (current) use of inhaled steroids; Z79.84 Long term (current) use of oral hypoglycemic drugs; Z79.899 Other long term (current) drug therapy
CPT/HCPCS: 71045; 80048; 84484; 85025; 93005; 96374; 99284

== ENCOUNTER 2018-11-01 09:15 | Emergency (ER) | payer MEDICARE, OTHER, SELFPAY ==
[2018-10-23 09:56] VITALS: BMI 38.7
[2018-11-01 09:16] VITALS: BP 143/71; PULSE 98; RESP 16; TEMP 36.4; O2SAT 99; BMI 38.7
--- NOTE | 2018-11-01 09:34 | EKG12_ITS ---
Test Reason : AFIB Blood Pressure : / mmHG Vent. Rate : 104 BPM Atrial Rate : 120 BPM P-R Int : 000 ms QRS Dur : 088 ms QT Int : 364 ms P-R-T Axes : 000 032 -07 degrees QTc Int : 478 ms Atrial fibrillation with rapid ventricular response Abnormal ECG Confirmed by TRINH LUTZ ([id number]), non linear editor FARAZ JAMES (56) on 11/05/2018 4:57:55 PM Referred By: SHAENLL Confirmed By:TRINH LUTZ
[2018-11-01 09:46] VITALS: BP 140/110; PULSE 67; RESP 17; O2SAT 95
--- NOTE | 2018-11-01 09:53 | EKG12_ITS ---
Test Reason : REPEAT Blood Pressure : / mmHG Vent. Rate : 065 BPM Atrial Rate : 065 BPM P-R Int : 128 ms QRS Dur : 084 ms QT Int : 424 ms P-R-T Axes : 075 041 034 degrees QTc Int : 440 ms Normal sinus rhythm Normal ECG Confirmed by TRINH LUTZ ([id number]), avid editor FARAZ JAMES (56) on 11/05/2018 4:58:10 PM Referred By: SHANELL Confirmed By:TRINH LUTZ
--- NOTE | 2018-11-01 09:56 | RAD_ITS ---
STUDY: X-RAY CHEST REASON FOR EXAM: Female, 73 years old. Weakness. Palpitations. TECHNIQUE: Single AP portable view of the chest. COMPARISON: Comparison is made with prior study dated August 10, 2018. FINDINGS: EKG electrodes are seen Hyperinflation. Minimal increased linear markings at the left lung base suggestive of basilar linear scarring and/or atelectasis. There is no demonstrated pleural abnormality. Normal size heart. Normal mediastinum and ricardo. Normal visualized pulmonary arteries. There is atherosclerotic calcification of the aortic arch with tortuosity. Normal visualized thoracic spine. Normal visualized ribs, clavicles, and shoulders. There is no demonstrated abnormality of the visualized soft tissue structures of the upper abdomen. RAD/Chest 1 View (Portable) IMPRESSION: Minimal linear scarring and/or atelectasis at the left lung base. Electronically Signed: Omar Reyes, at 10:28 EDT , Service support ,
[2018-11-01] MEDS: 0.9% Normal Saline 1,000 ML 150 ML IV (10:03)
[2018-11-01 10:04] LABS: Absolute Lymphocyte Count 1.83 X10^3/ul (0.83-4.51); Absolute Neutrophil Count 5.6 X10^3/uL (2.0-7.7); Basophil# 0.01 X10^3/uL; Basophil% 0.1 % (0-1); Eosinophil# 0.09 X10^3/uL; Eosinophils% 1.1 % (0-5); Hematocrit 45.4 % (37-47); Hemoglobin 14.8 g/dl (12.0-15.0); Lymphocyte # 1.83 X10^3/ul (4.0); Lymphocyte % 22.2 % (19-41); Mean Corp Hgb Conc 32.6 g/gl (32-36); Mean Corpuscular Hgb 28.3 pg (27.0-32.0); Mean Corpuscular Volume 86.8 fL (81-99); Mean Platelet Vol. 10.6 fl (6.2-12.0); Monocyte# 0.69 X10^3/uL; Monocyte% 8.4 % (0-10); Neutrophil # 5.61 X10^3/uL (2.7-7.7); Neutrophil % 68.2 % (47-70); POSITIVE COUNT NO; POSITIVE DIFFERENTIAL NO; POSITIVE MORPHOLOGY NO; Platelet Count 385 K/mm3 (150-450); RBC Distribution Width CV 13.1 % (11.6-14.6); RBC Distribution Width SD 41.8 fl (35.1-43.9); Red Blood Count 5.23 M/mm3 (4.2-5.4); White Blood Count 8.2 K/mm3 (4.4-11.0)
[2018-11-01 10:20] LABS: Anion Gap 8 (5-15); BUN 19 mg/dL (7-18); BUN/Creat Ratio 27.4 RATIO (10-20); Calcium,Total 9.2 mg/dL (8.5-10.1); Chloride 104 mmol/L (98-107); Creatinine, Serum 0.69 mg/dL (0.55-1.02); EST Glomerular Filtration Rate 89 mL/min (>60); Est Glom Filt Rate - Afr Amer 107 mL/min (>60); Estimated Creatinine Clearance 46.43 ml/min; Glucose 122 mg/dL (74-106); Magnesium 1.8 mg/dL (1.6-2.6); Sodium Level 139 mmol/L (136-145)
--- NOTE | 2018-11-01 10:29 | ED.VISSUMM ---
- ER Visit Summary Date of Service: 11/01/18 Chief Complaint: [Palpitations] History of Present Illness: The patient is a 73 F [presents the emergency department with complaint of going back into atrial fibrillation yesterday morning. Patient states that she has a history of paroxysmal atrial fibrillation and her last episode was about a month ago. Patient was seen in July in the emergency department for similar episode at which time she received Cardizem and she returned into a sinus rhythm. Last month she states she had an episode that resolved spontaneously. Patient was scheduled to have cardiac ablation in [place] however the physician had a job transfer up to [place] and she will would have to wait for a new employment assistant. Patient denies any chest pain or shortness of breath. She does describe some mild fatigue. Patient otherwise does not feel ill. She has had no recent illness. She has not had any change in her medications. Patient has been compliant with her medications. Patient is on sotalol and Xarelto.] Physical Examination: [HEENT-PERRLA, EOMI. Cranial nerves II through XII grossly intact. TMs clear. Mucous membranes moist. No adenopathy. Cardiovascular-irregularly irregular and tachycardic. No murmurs auscultated. Lungs-clear to auscultation, chest wall stable without crepitus or subcu emphysema Abdomen-normoactive bowel sounds, soft, nontender, no rebound or rigidity, no peritoneal signs. Extremities-intact ?4, normal range of motion, normal pulses, atraumatic] Test Results: [EKG obtained on arrival showed atrial fibrillation with a rapid ventricular response at a rate of 104 bpm. While patient was having her EKG performed she had a bradycardic episode into the 30s and then she converted to a sinus rhythm and repeat EKG shows sinus rhythm at the rate of 65 bpm with no acute I segment changes. CBC with differential is normal. Chemistries were normal. Magnesium was 1.8. Troponin was less than 0.015. Chest x-ray showed nothing acute.] Emergency Department Course and Treatment: [Case was discussed with patient's a p supervisor Dr. Ezekiel Perez who does not want to make any adjustments to the patient's medications and no other treatment indicated at this time.] Treatment Plan: [Patient to follow-up with cardiology] Disposition: [Discharged home in stable condition] Impression: [Atrial fibrillation with rapid ventricular response-resolved] This note was generated with Munchkin dictation software. It may contain incorrect words, spelling, and punctuation that were not noted in review of the chart prior to signing ED Disposition - Plan for ED Patient: Referrals: Quique Mims MD [Primary Care Provider] -
--- NOTE | 2018-11-01 10:32 | ED.DCSUM_ITS ---
- ER Visit Summary Date of Service: 11/01/18 Chief Complaint: [Palpitations] History of Present Illness: The patient is a 73 F [presents the emergency department with complaint of going back into atrial fibrillation yesterday morning. Patient states that she has a history of paroxysmal atrial fibrillation and her last episode was about a month ago. Patient was seen in July in the emergency department for similar episode at which time she received Cardizem and she returned into a sinus rhythm. Last month she states she had an episode that resolved spontaneously. 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 Patient denies any chest pain or shortness of breath. She does describe some mild fatigue. Patient otherwise does not feel ill. She has had no recent ill ness. She has not had any change in her medications. Patient has been compliant with her medications. Patient is on sotalol and Xarelto.] Physical Examination: [HEENT-PERRLA, EOMI. Cranial nerves II through XII grossly intact. TMs clear. Mucous membranes moist. No adenopathy. Cardiovascular-irregularly irregular and tachycardic. No murmurs auscultated. Lungs-clear to auscultation, chest wall stable without crepitus or subcu emphysema Abdomen-normoactive bowel sounds, soft, nontender, no rebound or rigidity, no peritoneal signs. Extremities-intact ?4, normal range of motion, normal pulses, atraumatic] Test Results: [EKG obtained on arrival showed atrial fibrillation with a rapid ventricular response at a rate of 104 bpm. While patient was having her EKG performed she had a bradycardic episode into the 30s and then she converted to a sinus rhythm and repeat EKG shows sinus rhythm at the rate of 65 bpm with no acute I segment changes. CBC with differential is normal. Chemistries were normal. Magnesium was 1.8. Troponin was less than 0.015. Chest x-ray showed nothing acute.] Emergency Department Course and Treatment: [Case was discussed with patient's arts and crafts instructor Dr. Ezekiel Perez who does not want to make any adjustments to the patient's medications and no other treatment indicated at this time.] Treatment Plan: [Patient to follow-up with cardiology] Disposition: [Discharged home in stable condition] Impression: [Atrial fibrillation with rapid ventricular response-resolved] This note was generated with Think Passenger dictation software. It may contain incorrect words, spelling, and punctuation that were not noted in review of the chart prior to signing ED Disposition - Plan for ED Patient: Referrals: Quique Mims MD [Primary Care Provider] -
--- NOTE | 2018-11-01 10:32 | ED.DEP ---
ED Disposition - Plan for ED Patient: Instructions: ED Afib Referrals: Quique Mims MD [Primary Care Provider] - Ezekiel Perez MD [STAFF PHYSICIAN] - As Needed
[2018-11-01 10:48] VITALS: BP 137/85; PULSE 62; RESP 15; O2SAT 98
== END 2018-11-01 10:48 | disposition home or self-care (01) ==
LOC: ED 09:49
PROVIDERS: Emergency Provider Emergency Medicine; Family Provider Internal Medicine; PCP Internal Medicine
DX: I48.91 Unspecified atrial fibrillation (principal); I25.10 Atherosclerotic heart disease of native coronary artery without angina pectoris; I11.0 Hypertensive heart disease with heart failure; I50.9 Heart failure, unspecified; E11.9 Type 2 diabetes mellitus without complications; E78.00 Pure hypercholesterolemia, unspecified; I27.20 Pulmonary hypertension, unspecified; Z79.01 Long term (current) use of anticoagulants; Z79.84 Long term (current) use of oral hypoglycemic drugs; Z79.899 Other long term (current) drug therapy
CPT/HCPCS: 71045; 80048; 83735; 84484; 85025; 93005; 96360; 99284; J7030

== ENCOUNTER → 2018-12-07 | Outpatient (CLI) | payer MEDICARE, OTHER, SELFPAY ==
[2018-11-09 10:24] VITALS: BMI 38.7
[2018-12-07 11:06] VITALS: BMI 38.7
[2018-12-07 11:29] LABS: Mucous, Urine 0 SEEN /hpf (<or=2+)
[2018-12-07 12:27] LABS: Color, Urine Yellow (Yellow); Glucose, Dipstick Normal (Normal); Ketone-Dipstick Negative (Negative); Leukocyte Esterase-Dipstick 100 /ul (Negative); Nitrite-Dipstick Positive (Negative); Occult Blood-Urine 10 /ul (Negative); Protein-Dipstick 15 mg/dl (Negative); Urine Bilirubin Dipstick Negative (Negative); Urine Clarity Sl. Cloudy (Clear); Urine Urobilinogen Normal (Normal)
[2018-12-07 12:49] LABS: Bacteria 1+ /hpf (None Seen); Red Blood Cells-Urine 0-5 SEEN /hpf (0-5); Squamous Epithelial Cells - UA 0-5 SEEN /hpf (5-10); White Blood Cells 10-25 SEEN /hpf (0-5)
== END | disposition home or self-care (01) ==
LOC: BIMLAB 11:15
PROVIDERS: Family Provider Internal Medicine; PCP Internal Medicine; Visit Provider Internal Medicine
DX: R35.0 Frequency of micturition (principal)
CPT/HCPCS: 81001; 87086; 87088; 87186

== ENCOUNTER 2019-01-01 07:50 | Emergency (ER) | payer MEDICARE, OTHER, SELFPAY ==
[2018-12-07 11:06] VITALS: BMI 38.7
[2019-01-01 07:51] VITALS: BP 159/103; PULSE 113; RESP 20; TEMP 36.7; O2SAT 94; BMI 39.6
--- NOTE | 2019-01-01 08:00 | EKG12_ITS ---
Test Reason : AFIB Blood Pressure : / mmHG Vent. Rate : 114 BPM Atrial Rate : 120 BPM P-R Int : 000 ms QRS Dur : 088 ms QT Int : 346 ms P-R-T Axes : 000 035 006 degrees QTc Int : 476 ms Atrial fibrillation with rapid ventricular response Abnormal ECG Confirmed by FLOYD TATUM ([id number]), newspaper copy editor HARSHA DAVE ([id number]) on 01/03/2019 11:51:11 AM Referred By: STEPHAN Confirmed By:ARNOLD TATUM
[2019-01-01 08:07] LABS: Hematocrit 44.6 % (37-47); Hemoglobin 14.5 g/dl (12.0-15.0); Mean Corp Hgb Conc 32.5 g/gl (32-36); Mean Corpuscular Hgb 27.9 pg (27.0-32.0); Mean Corpuscular Volume 85.9 fL (81-99); Mean Platelet Vol. 10.3 fl (6.2-12.0); Platelet Count 301 K/mm3 (150-450); RBC Distribution Width CV 13.1 % (11.6-14.6); RBC Distribution Width SD 41.7 fl (35.1-43.9); Red Blood Count 5.19 M/mm3 (4.2-5.4); White Blood Count 10.1 K/mm3 (4.4-11.0)
[2019-01-01 08:08] LABS: Scan Indicated on CBC? Y/N NO
--- NOTE | 2019-01-01 08:14 | ED.VIS.GEN ---
History of Present Illness Chief Complaint: Palpitations Informant: Patient Onset: Today Context: Sudden Onset Timing: Continuous - Fast irregular heartbeat Quality: Palpitations/irregular fast heartbeat Location: Mid chest Current Severity: Mild Maximum Severity: Moderate Worsened by: Activity Relieved by: Nothing Associated Symptoms: Patient reported slight shortness of breath upon awakening. Narrative: Patient is an elderly woman with history of paroxysmal H fibrillation on Xarelto and sotalol. She took her dose of sotalol this morning. She states she was seen in the [facility] 1 month ago and given medication. Her records were reviewed and she apparently spontaneously converted. She denies fever, chills night sweats. She denies ocular, visual auditory symptoms. She denies chest pain. She denies nausea, vomiting or diarrhea. She denies black or maroon stool. She denies leg pain, swelling discoloration. She denies orthopnea or PND. She was scheduled to see an EP pole classifier at [facility]. Her appointment was canceled because he transferred to [facility] and needed to reschedule with new EP pole classifier. 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 Comment: MILD (3) COPD (chronic obstructive pulmonary disease) Status: Chronic (4) DM2 (diabetes mellitus, type 2) Status: Chronic (5) Diastolic congestive heart failure Status: Chronic (6) Essential hypertension Status: Chronic (7) HLD (hyperlipidemia) Status: Chronic (8) Long-term use of high-risk medication Status: Chronic (9) SEVEN (obstructive sleep apnea) Status: Chronic (10) PAF (paroxysmal atrial fibrillation) Status: Chronic (11) Pulmonary HTN Status: Chronic Past Medical History - Allergies and Home Meds Allergies/Adverse Reactions: Allergies labetalol Allergy (Verified 01/01/19 07:53) Unknown pitavastatin [From Livalo] Allergy (Verified 01/01/19 07:53) Other simvastatin [From Zocor] Allergy (Verified 01/01/19 07:53) Other budesonide [From Symbicort] Adverse Reaction (Verified 01/01/19 07:53) Other JITTERS formoterol [From Symbicort] Adverse Reaction (Verified 01/01/19 07:53) Other JITTERS hydrocodone [From Vicodin] Adverse Reaction (Verified 01/01/19 07:53) Other HEADACHE Btwylic-Tjj-Jzv Reductase Inhibitor Adverse Reaction (Verified 01/01/19 07:53) Other PAIN AND JITTERS Primary Care Physician: Quique Mims MD [Primary Care Provider] - Prior records reviewed: Yes - Prior ED visit Surgical History: coronary bypass surgery, tonsillectomy, - Lives: Alone Smoking Status: Never smoker Alcohol: None - Family History Maternal Family History: Family History (Last Reviewed 12/07/18 @ 10:15 by Kirsten Braga) Mother Cancer Father Respiratory disease Grandfather Myocardial infarction Grandmother Myocardial infarction Son Diabetes Family History: Reports: Heart Disease Paternal Family History: Family History (Last Reviewed 12/07/18 @ 10:15 by Kirsten Braga) Mother Cancer Father Respiratory disease Grandfather Myocardial infarction Grandmother Myocardial infarction Son Diabetes Family History: Reports: No pertinent history Review of Systems General: Denies: Chills, Fever, Malaise, Sweats, Weight loss Eyes: Denies: Visual changes - bilaterally, Blurred Vision - bilaterally, Diplopia ENT: Denies: Rhinorrhea, Sore throat Cardiovascular: Reports: Palpitations. Denies: Chest pain, Heart racing, -, - Respiratory: Reports: Dyspnea. Denies: Cough, Sputum, Dyspnea on exertion, Orthopnea, Paroxysmal nocturnal dyspnea, -, - Gastrointestinal: Denies: Abdominal pain, Nausea, Vomiting, Diarrhea, Melena, Hematochezia Genitourinary: Denies: Dysuria, Hematuria, Frequency Musculoskeletal: Denies: Myalgias, Arthralgias, Neck pain, Back pain, Extremity Pain Skin: Denies: Rash, Wounds Neurological: Denies: Headache, Weakness, Numbness Allergy: Denies: Uticaria, Swelling of the mouth Physical Exam Vital Signs/Narrative: Vital Signs Temp Pulse Resp BP Pulse Ox 01/01/19 07:51 98.0 F 113 H 20 H 159/103 H 94 Inital Vital Signs reviewed: Yes General: Well nourished, Well developed, No Acute Distress Head: Normocephalic, Atraumatic Eyes: Perrl, EOMI. Negative for: Pale conjunctiva, Scleral icterus, - ENT: Moist mucous membranes, No rhinorrhea Neck: Supple, Nontender, No lymphadenopathy, No JVD, - Cardiovascular: No murmurs, Irregular, Tachycardia Respiratory: No distress, CTA bilaterally, Chest nontender Abdomen: Soft, Nontender, Nondistended, Normal bowel sounds, No masses Rectal: Deferred Back: Nontender, Normal Inspection Extremities: Nontender, Edema - Plus minus pitting edema anterior right and left leg and feet. Skin: No rash, No Trauma. Negative for: Normal color, Cyanosis, Diaphoresis, Jaundice Neurological: Alert, Oriented x3, Cranial nerves II-XII grossly intact, Normal Strength, Normal Sensation Psychological: Normal affect, Normal Mood Diagnostic/Tx/Re-eval Laboratory Results 01/01/19 01/01/19 07:55 07:55 WBC 10.1 RBC 5.19 Hgb 14.5 Hct 44.6 MCV 85.9 MCH 27.9 MCHC 32.5 RDW 13.1 RDW Differential 41.7 Plt Count 301 MPV 10.3 Sodium 143 Potassium 3.7 Chloride 104 Carbon Dioxide 27.0 Anion Gap 12 BUN 13 Creatinine 0.70 Estim Creat Clear Calc 46.43 Est GFR (MDRD) Af Amer 106 Est GFR (MDRD) Non-Af 88 BUN/Creatinine Ratio 18.6 Glucose 159 H Calcium 9.5 - EKG Initial EKG Interpretation: Atrial Fibrillation - Ventricular rate is 114. QRS duration 80 ms. QT interval 346 ms. [place] is normal. Wandering baseline secondary to artifact. - Medical Decision Making EKG was obtained and blood work. Will discuss case with her pole classifier Dr. Perez. If patient does not spontaneously convert while awaiting results we will discuss cardioversion versus administration of additional sotalol. Patient laboratory results are unremarkable. Patient converted on her own. Case was discussed with Dr. Perez. Plan is not to change any medications. ED Disposition - Plan for ED Patient: Disposition: Home or Assisted Living Diagnosis: Paroxysmal atrial fibrillation with rapid ventricular response Instructions: ED Paroxysmal Atrial Flutter Referrals: Quique Mims MD [Primary Care Provider] - Ezekiel Perez MD [STAFF PHYSICIAN] - 1 Week
--- NOTE | 2019-01-01 08:18 | ED.DCSUM_ITS ---
History of Present Illness Chief Complaint: Palpitations Informant: Patient Onset: Today Context: Sudden Onset Timing: Continuous - Fast irregular heartbeat Quality: Palpitations/irregular fast heartbeat Location: Mid chest Current Severity: Mild Maximum Severity: Moderate Worsened by: Activity Relieved by: Nothing Associated Symptoms: Patient reported slight shortness of breath upon awakening. Narrative: Patient is an elderly woman with history of paroxysmal H fibrillation on Xarelto and sotalol. She took her dose of sotalol this morning. She states she was seen in the emerge department 1 month ago and given medication. Her records w ere reviewed and she apparently spontaneously converted. She denies fever, chills night sweats. She denies ocular, visual auditory symptoms. She denies chest pain. She denies nausea, vomiting or diarrhea. She denies black or maroon stool. She denies leg pain, swelling discoloration. She denies orthopnea or PND. She was scheduled to see an EP crop setting out machine operator at [facility]. Her appointment was canceled because he transferred to [facility] and needed to reschedule with new EP crop setting out machine operator. Prior similar symptoms: Yes Recent Illness/Hospitalization: Yes - Past Medical History (1) Anxiety Status: Chronic (2) Atherosclerotic heart disease of [place] coronary artery without angina pectoris Status: Chronic Comment: MILD (3) COPD (chronic obstructive pulmonary disease) Status: Chronic (4) DM2 (diabetes mellitus, type 2) Status: Chronic (5) Diastolic congestive heart failure Status: Chronic (6) Essential hypertension Status: Chronic (7) HLD (hyperlipidemia) Status: Chronic (8) Long-term use of high-risk medication Status: Chronic (9) SEVEN (obstructive sleep apnea) Status: Chronic (10) PAF (paroxysmal atrial fibrillation) Status: Chronic (11) Pulmonary HTN Status: Chronic Past Medical History - Allergies and Home Meds Allergies/Adverse Reactions: Allergies labetalol Allergy (Verified 01/01/19 07:53) Unknown pitavastatin [From Livalo] Allergy (Verified 01/01/19 07:53) Other simvastatin [From Zocor] Allergy (Verified 01/01/19 07:53) Other budesonide [From Symbicort] Adverse Reaction (Verified 01/01/19 07:53) Other JITTERS formoterol [From Symbicort] Adverse Reaction (Verified 01/01/19 07:53) Other JITTERS hydrocodone [From Vicodin] Adverse Reaction (Verified 01/01/19 07:53) Other HEADACHE Fsvkbpk-Woa-Vps Reductase Inhibitor Adverse Reaction (Verified 01/01/19 07:53) Other PAIN AND JITTERS Primary Care Physician: Quique Mims MD [Primary Care Provider] - Prior records reviewed: Yes - Prior ED visit Surgical History: coronary bypass surgery, tonsillectomy, - Lives: Alone Smoking Status: Never smoker Alcohol: None - Family History Maternal Family History: Family History (Last Reviewed 12/07/18 @ 10:15 by Kirsten Braga) Mother Cancer Father Respiratory disease Grandfather Myocardial infarction Grandmother Myocardial infarction Son Diabetes Family History: Reports: Heart Disease Paternal Family History: Family History (Last Reviewed 12/07/18 @ 10:15 by Kirsten Braga) Mother Cancer Father Respiratory disease Grandfather Myocardial infarction Grandmother Myocardial infarction Son Diabetes Family History: Reports: No pertinent history Review of Systems General: Denies: Chills, Fever, Malaise, Sweats, Weight loss Eyes: Denies: Visual changes - bilaterally, Blurred Vision - bilaterally, Diplopia ENT: Denies: Rhinorrhea, Sore throat Cardiovascular: Reports: Palpitations. Denies: Chest pain, Heart racing, -, - Respiratory: Reports: Dyspnea. Denies: Cough, Sputum, Dyspnea on exertion, Orthopnea, Paroxysmal nocturnal dyspnea, -, - Gastrointestinal: Denies: Abdominal pain, Nausea, Vomiting, Diarrhea, Melena, Hematochezia Genitourinary: Denies: Dysuria, Hematuria, Frequency Musculoskeletal: Denies: Myalgias, Arthralgias, Neck pain, Back pain, Extremity Pain Skin: Denies: Rash, Wounds Neurological: Denies: Headache, Weakness, Numbness Allergy: Denies: Uticaria, Swelling of the mouth Physical Exam Vital Signs/Narrative: Vital Signs Temp Pulse Resp BP Pulse Ox 01/01/19 07:51 98.0 F 113 H 20 H 159/103 H 94 Inital Vital Signs reviewed: Yes General: Well nourished, Well developed, No Acute Distress Head: Normocephalic, Atraumatic Eyes: Perrl, EOMI. Negative for: Pale conjunctiva, Scleral icterus, - ENT: Moist mucous membranes, No rhinorrhea Neck: Supple, Nontender, No lymphadenopathy, No JVD, - Cardiovascular: No murmurs, Irregular, Tachycardia Respiratory: No distress, CTA bilaterally, Chest nontender Abdomen: Soft, Nontender, Nondistended, Normal bowel sounds, No masses Rectal: Deferred Back: Nontender, Normal Inspection Extremities: Nontender, Edema - Plus minus pitting edema anterior right and left leg and feet. Skin: No rash, No Trauma. Negative for: Normal color, Cyanosis, Diaphoresis, Jaundice Neurological: Alert, Oriented x3, Cranial nerves II-XII grossly intact, Normal Strength, Normal Sensation Psychological: Normal affect, Normal Mood Diagnostic/Tx/Re-eval Laboratory Results 01/01/19 01/01/19 07:55 07:55 WBC 10.1 RBC 5.19 Hgb 14.5 Hct 44.6 MCV 85.9 MCH 27.9 MCHC 32.5 RDW 13.1 RDW Differential 41.7 Plt Count 301 MPV 10.3 Sodium 143 Potassium 3.7 Chloride 104 Carbon Dioxide 27.0 Anion Gap 12 BUN 13 Creatinine 0.70 Estim Creat Clear Calc 46.43 Est GFR (MDRD) Af Amer 106 Est GFR (MDRD) Non-Af 88 BUN/Creatinine Ratio 18.6 Glucose 159 H Calcium 9.5 - EKG Initial EKG Interpretation: Atrial Fibrillation - Ventricular rate is 114. QRS duration 80 ms. QT interval 346 ms. [place] is normal. Wandering baseline secondary to artifact. - Medical Decision Making EKG was obtained and blood work. Will discuss case with her crop setting out machine operator Dr. Perez. If patient does not spontaneously convert while awaiting results we will discuss cardioversion versus administration of additional sotalol. Patient laboratory results are unremarkable. Patient converted on her own. Case was discussed with Dr. Perez. Plan is not to change any medications. ED Disposition - Plan for ED Patient: Disposition: Home or Assisted Living Diagnosis: Paroxysmal atrial fibrillation with rapid ventricular response Instructions: ED Paroxysmal Atrial Flutter Referrals: Quique Mims MD [Primary Care Provider] - Ezekiel ePrez MD [STAFF PHYSICIAN] - 1 Week
[2019-01-01 08:28] LABS: Anion Gap 12 (5-15); BUN 13 mg/dL (7-18); BUN/Creat Ratio 18.6 RATIO (10-20); Calcium,Total 9.5 mg/dL (8.5-10.1); Chloride 104 mmol/L (98-107); EST Glomerular Filtration Rate 88 mL/min (>60); Est Glom Filt Rate - Afr Amer 106 mL/min (>60); Estimated Creatinine Clearance 46.43 ml/min; Glucose 159 mg/dL (74-106); Potassium 3.7 mmol/L (3.5-5.1); Sodium Level 143 mmol/L (136-145)
--- NOTE | 2019-01-01 09:09 | NURSING ---
DR MCKEON PAGED
== END 2019-01-01 10:03 | disposition home or self-care (01) ==
PROVIDERS: Emergency Provider Emergency Medicine; Family Provider Internal Medicine; PCP Internal Medicine
DX: I48.0 Paroxysmal atrial fibrillation (principal); I11.0 Hypertensive heart disease with heart failure; I50.32 Chronic diastolic (congestive) heart failure; I25.10 Atherosclerotic heart disease of native coronary artery without angina pectoris; J44.9 Chronic obstructive pulmonary disease, unspecified; E11.9 Type 2 diabetes mellitus without complications; I27.20 Pulmonary hypertension, unspecified; F41.9 Anxiety disorder, unspecified; E78.5 Hyperlipidemia, unspecified; G47.33 Obstructive sleep apnea (adult) (pediatric); Z79.02 Long term (current) use of antithrombotics/antiplatelets; Z79.51 Long term (current) use of inhaled steroids; Z79.84 Long term (current) use of oral hypoglycemic drugs; Z79.899 Other long term (current) drug therapy
CPT/HCPCS: 80048; 85027; 93005; 99284; A4216

== ENCOUNTER → 2019-01-22 | Outpatient (CLI) | payer MEDICARE, OTHER, SELFPAY ==
[2019-01-16 15:00] VITALS: BMI 39.6
== END | disposition home or self-care (01) ==
LOC: PSN 10:38
PROVIDERS: Family Provider Internal Medicine; PCP Internal Medicine; Referring Provider Nurse Practitioner Family; Visit Provider Nurse Practitioner Family
DX: R00.2 Palpitations (principal); I48.0 Paroxysmal atrial fibrillation
CPT/HCPCS: 93225; 93226

== ENCOUNTER → 2019-07-11 15:42 | Outpatient (CLI) | payer MEDICARE, OTHER, SELFPAY ==
[2019-07-11 13:40] VITALS: BMI 38.6
[2019-07-11 16:00] LABS: Bacteria 0 SEEN /hpf (None Seen); Mucous, Urine 0 SEEN /hpf (<or=2+); Red Blood Cells-Urine 0 SEEN /hpf (0-5); Squamous Epithelial Cells - UA 0 SEEN /hpf (5-10); White Blood Cells 0 SEEN /hpf (0-5)
[2019-07-11 16:50] LABS: Color, Urine Yellow (Yellow); Glucose, Dipstick Normal (Normal); Ketone-Dipstick Negative (Negative); Leukocyte Esterase-Dipstick Negative /ul (Negative); Nitrite-Dipstick Negative (Negative); Occult Blood-Urine Negative /ul (Negative); Protein-Dipstick Negative (Negative); Urine Bilirubin Dipstick Negative (Negative); Urine Clarity Clear (Clear); Urine Urobilinogen Normal (Normal)
== END ==
PROVIDERS: Family Provider Internal Medicine; PCP Internal Medicine; Referring Provider Internal Medicine; Visit Provider Internal Medicine
DX: N39.0 Urinary tract infection, site not specified (principal)
CPT/HCPCS: 81001

== ENCOUNTER → 2019-08-16 10:23 | Outpatient (CLI) | payer MEDICARE, OTHER, SELFPAY ==
[2019-08-05 10:24] VITALS: BMI 38.4
--- NOTE | 2019-08-16 10:30 | BI_ITS ---
MAMMOGRAPHY - BILATERAL SCREENING REASON FOR EXAM: Female, 73 years old. Routine annual screening examination. PERTINENT HISTORY: Non-contributory. TECHNIQUE: Digital bilateral breast ignacio (3D mammographic acquisition) in the CC and MLO projections. 2-D mediolateral oblique (MLO) and craniocaudad (CC) views of both breasts were obtained. CAD: Full Field Digital Mammography with Computer Added Detection was performed. COMPARISON: Comparison is made with prior study dated May 08, 2018. FINDINGS: Breast Composition: There are scattered areas of fibroglandular density. There are no dominant masses or suspicious calcifications. Stable scattered calcifications bilaterally more prominent in the right breast. No other significant abnormalities are identified. There has been no significant change since the prior study. BI/SCREEN MAMM (CAD) W/IGNACIO BILAT IMPRESSION: Stable bilateral screening mammogram. Yearly follow-up mammogram recommended. (A) ASSESSMENT CATEGORY: BIRADS Category 2: Benign. A letter regarding these results will be sent to the patient by the facility within 30 days. Approximately 10% of breast cancers are not detected by mammography. A normal mammogram should not delay biopsy of a clinically suspicious abnormality. [id number] Electronically Signed: Omar Reyes, at 12:22 EST , Service support ,
== END ==
PROVIDERS: PCP Internal Medicine; Referring Provider Internal Medicine; Visit Provider Internal Medicine
DX: Z12.31 Encounter for screening mammogram for malignant neoplasm of breast (principal)
CPT/HCPCS: 77063; 77067

== ENCOUNTER → 2020-02-03 11:42 | Outpatient (CLI) | payer MEDICARE, OTHER, SELFPAY ==
[2020-02-03 11:06] VITALS: BMI 38.4
[2020-02-03 12:45] LABS: Absolute Neutrophil Count 5.2 X10^3/uL (2.0-7.7); Basophil# 0.01 X10^3/uL; Basophil% 0.1 % (0-1); Eosinophil# 0.16 X10^3/uL; Hematocrit 43.9 % (37-47); Lymphocyte % 22.9 % (19-41); Mean Corp Hgb Conc 31.9 g/dL (32-36); Mean Corpuscular Hgb 29.3 pg (27.0-32.0); Mean Corpuscular Volume 91.8 fL (81-99); Mean Platelet Vol. 11.2 fl (6.2-12.0); Monocyte# 0.66 X10^3/uL; Monocyte% 8.4 % (0-10); NRBC Flagged by Analyzer 0 % (0-5); Neutrophil # 5.23 X10^3/uL (2.7-7.7); Neutrophil % 66.5 % (47-70); Platelet Count 262 K/mm3 (150-450); RBC Distribution Width CV 13.1 % (11.6-14.6); RBC Distribution Width SD 43.5 fl (35.1-43.9); Red Blood Count 4.78 M/mm3 (4.2-5.4); White Blood Count 7.9 K/mm3 (4.4-11.0)
[2020-02-03 13:32] LABS: ALB/GLOB Ratio 1.4 RATIO (0.9-2.4); AST(SGOT) 21 U/L (15-37); Alanine Aminotransfer ALT/SGPT 36 U/L (13-56); Albumin, Serum 4.1 g/dL (3.2-5.0); Alkaline Phosphatase 47 U/L (45-117); Anion Gap 9 (5-15); BUN 22 mg/dL (7-18); BUN/Creat Ratio 28.6 RATIO (10-20); Calcium,Total 8.8 mg/dL (8.5-10.1); Chloride 105 mmol/L (98-107); Creatinine, Serum 0.77 mg/dL (0.55-1.02); EST Glomerular Filtration Rate 79 mL/min (>60); Est Glom Filt Rate - Afr Amer 95 mL/min (>60); Glucose 177 mg/dL (74-106); Potassium 3.9 mmol/L (3.5-5.1); Protein, Total 7.1 g/dL (6.4-8.2); Sodium Level 141 mmol/L (136-145)
== END ==
PROVIDERS: PCP Internal Medicine; Referring Provider Internal Medicine; Visit Provider Internal Medicine
DX: I87.2 Venous insufficiency (chronic) (peripheral) (principal); F41.8 Other specified anxiety disorders; I10 Essential (primary) hypertension
CPT/HCPCS: 36415; 80053; 85025

== ENCOUNTER → 2020-08-03 10:25 | Outpatient (CLI) | payer MEDICARE, OTHER, SELFPAY ==
[2020-06-22 10:19] VITALS: BMI 42.3
[2020-08-03 11:26] LABS: AST(SGOT) 27 U/L (15-37); Alanine Aminotransfer ALT/SGPT 46 U/L (13-56); Albumin, Serum 4.2 g/dL (3.2-5.0); Alkaline Phosphatase 54 U/L (45-117); Bilirubin, Direct 0.09 mg/dL (0.00-0.30); Cholesterol 289 mg/dL (200); Globulin 3.1 g/dL (2.2-4.2); High Density Lipoprotein 38 mg/dL; Protein, Total 7.3 g/dL (6.4-8.2); Triglycerides 305 mg/dL; Very Low Density Lipoprotein 61 mg/dL (5-40)
== END ==
PROVIDERS: PCP Internal Medicine; Visit Provider Internal Medicine Cardiovascular Disease
DX: E78.00 Pure hypercholesterolemia, unspecified (principal)
CPT/HCPCS: 36415; 80061; 80076

== ENCOUNTER → 2020-11-02 11:42 | Outpatient (CLI) | payer MEDICARE, OTHER, SELFPAY ==
[2020-11-02 10:58] VITALS: BMI 41.5
[2020-11-02 15:30] LABS: ALB/GLOB Ratio 1.1 RATIO (0.9-2.4); AST(SGOT) 23 U/L (15-37); Alanine Aminotransfer ALT/SGPT 37 U/L (13-56); Albumin, Serum 3.9 g/dL (3.2-5.0); Alkaline Phosphatase 60 U/L (45-117); Anion Gap 7 (5-15); BUN 15 mg/dL (7-18); BUN/Creat Ratio 21.5 RATIO (10-20); Calcium,Total 9.4 mg/dL (8.5-10.1); Chloride 104 mmol/L (98-107); EST Glomerular Filtration Rate 87 mL/min (>60); Est Glom Filt Rate - Afr Amer 106 mL/min (>60); Globulin 3.5 g/dL (2.2-4.2); Glucose 102 mg/dL (74-106); Potassium 4.1 mmol/L (3.5-5.1); Protein, Total 7.4 g/dL (6.4-8.2); Sodium Level 138 mmol/L (136-145)
== END ==
PROVIDERS: PCP Internal Medicine; Visit Provider Internal Medicine
DX: E11.9 Type 2 diabetes mellitus without complications (principal); I10 Essential (primary) hypertension
CPT/HCPCS: 36415; 80053

== ENCOUNTER → 2020-12-07 12:32 | Outpatient (CLI) | payer MEDICARE, OTHER, SELFPAY ==
[2020-11-02 10:58] VITALS: BMI 41.5
[2020-12-07 11:03] VITALS: BMI 41.5
--- NOTE | 2020-12-07 12:35 | BI_ITS ---
MAMMOGRAPHY - BILATERAL SCREENING 3-D TOMOSYNTHESIS REASON FOR EXAM: Female, 75 years old. Routine screening PERTINENT HISTORY: No significant family history. TECHNIQUE: 2-D mammograms and 3-D Tomosynthesis of the breast (s) were performed. CAD was performed. COMPARISON: 08/16/2019 FINDINGS: The breast composition is composed of scattered fibroglandular density. Scattered benign calcifications are seen. No dense spiculated masses or suspicious microcalcifications are identified. No architectural distortion is identified. There is no skin thickening or retraction. There has been no significant change since the prior study. BI/SCRN MAMM (CAD)W/IGNACIO BILAT IMPRESSION: No mammographic signs of malignancy. Routine yearly mammograms recommended. ASSESSMENT CATEGORY: BIRADS Category 2: Benign. A letter regarding these results will be sent to the patient by the facility within 30 days. FOLLOW UP RECOMMENDATION: Yearly follow up mammogram recommended. (A) Approximately 10% of breast cancers are not detected by mammography. A normal mammogram should not delay biopsy of a clinically suspicious abnormality. Electronically Signed: Jalen Caro MD at 13:30 EDT , Service support ,
== END ==
PROVIDERS: PCP Internal Medicine; Referring Provider Internal Medicine; Visit Provider Internal Medicine
DX: Z12.31 Encounter for screening mammogram for malignant neoplasm of breast (principal)
CPT/HCPCS: 77063; 77067

== ENCOUNTER 2021-01-16 05:07 | Emergency (ER) | payer MEDICARE, OTHER, SELFPAY ==
[2020-12-07 11:03] VITALS: BMI 41.5
[2021-01-16 05:08] VITALS: BP 184/75; PULSE 82; RESP 22; TEMP 37; O2SAT 94; BMI 40.8
--- NOTE | 2021-01-16 05:18 | EKG12_ITS ---
Test Reason : CP Blood Pressure : / mmHG Vent. Rate : 079 BPM Atrial Rate : 079 BPM P-R Int : 128 ms QRS Dur : 094 ms QT Int : 402 ms P-R-T Axes : 077 043 018 degrees QTc Int : 460 ms Normal sinus rhythm with sinus arrhythmia Normal ECG Confirmed by NAHUM WOLFE, CRISTI ([id number]), editorial clerk MONTY ARIZMENDI ([id number]) on 01/19/2021 8:41:16 AM Referred By: MICHELLE Confirmed By:CRISTI SIDHU MD
[2021-01-16] MEDS: Aspirin 81 MG TAB.CHEW 324 MG PO (05:26)
[2021-01-16] MEDS: fentaNYL 100 MCG/2 ML Ampul 12.5 MCG IV (05:27)
[2021-01-16 05:30] LABS: Absolute Lymphocyte Count 1.36 X10^3/uL (0.83-4.51); Absolute Neutrophil Count 5.3 X10^3/uL (2.0-7.7); Basophil# 0.01 X10^3/uL; Basophil% 0.1 % (0-1); Eosinophil# 0.17 X10^3/uL; Eosinophils% 2.3 % (0-5); Hematocrit 43.5 % (37-47); Hemoglobin 13.8 g/dL (12.0-15.0); Lymphocyte # 1.36 X10^3/ul (0.83-4.51); Lymphocyte % 18.1 % (19-41); Mean Corp Hgb Conc 31.7 g/dL (32-36); Mean Corpuscular Volume 88.2 fL (81-99); Mean Platelet Vol. 10.9 fl (6.2-12.0); Monocyte# 0.64 X10^3/uL; Monocyte% 8.5 % (0-10); NRBC Flagged by Analyzer 0 % (0-5); Neutrophil # 5.31 X10^3/uL (2.7-7.7); Neutrophil % 70.5 % (47-70); Platelet Count 277 K/mm3 (150-450); RBC Distribution Width CV 12.7 % (11.6-14.6); RBC Distribution Width SD 41.1 fl (35.1-43.9); Red Blood Count 4.93 M/mm3 (4.2-5.4); White Blood Count 7.5 K/mm3 (4.4-11.0)
--- NOTE | 2021-01-16 05:52 | RAD_ITS ---
INDICATION: chest pain EXAMINATION/TECHNIQUE: X-RAY - XR Chest 1 View COMPARISON: Radiograph dated 11/01/2018 FINDINGS: LINES/DEVICES: No invasive tubes, lines or drains. LUNGS: There are streaky opacities in the lung bases, more prominent on the right. This is nonspecific and could represent atelectasis or scarring or developing infectious process. Costophrenic angles are sharp without evidence of pleural effusion or large pneumothorax. MEDIASTINUM AND CARDIOVASCULAR STRUCTURES: Cardiac silhouette not enlarged. Central airways and mediastinal contour are unremarkable. BONES AND SOFT TISSUES: Degenerative changes are noted in the osseous structures, without evidence of acute fracture. RAD/Chest 1 View (Portable) IMPRESSION: Streaky opacities in the lung bases, more pronounced on the right. This is nonspecific and may represent atelectasis or scarring. Developing infectious process is not entirely excluded. Electronically Signed: Carlos Najera MD at 8:18 EDT Tel , Service support ,
[2021-01-16 05:59] LABS: Anion Gap 6 (5-15); BUN 17 mg/dL (7-18); BUN/Creat Ratio 24.3 RATIO (10-20); Calcium,Total 9.1 mg/dL (8.5-10.1); Chloride 101 mmol/L (98-107); EST Glomerular Filtration Rate 87 mL/min (>60); Est Glom Filt Rate - Afr Amer 105 mL/min (>60); Estimated Creatinine Clearance 45.09 ml/min; Glucose 153 mg/dL (74-106); Potassium 4.3 mmol/L (3.5-5.1); Sodium Level 137 mmol/L (136-145); Troponin-I HS 8.5 pg/mL (3.0-53.7)
--- NOTE | 2021-01-16 06:37 | ED.VIS.CHEST ---
HPI History of Present Illness Chief Complaint: Chest Pain Informant: patient Onset/Context/Timing Onset: Today Activity at onset: - (Woke with pain) Timing: Intermittent Quality: Positive for Sharp and Stabbing Location: Left Parasternal Current Severity: Mild Maximum Severity: Moderate Worsened By: Movement of Arm, Movement of Torso, Palpation and Breathing Relieved By: Rest and Remaining Still Narrative Narrative: Patient presents secondary to sharp stabbing pain along the left sternal border near the left breast. Patient states she woke around 330 this morning with pain. She denies shortness of breath but states with a deep breath pain will sometimes worsen. Pain is also worsened with movement. Patient states she felt well when she went to bed last evening. Patient does have cardiac history including coronary disease, prior CT, atrial fibrillation. She is currently on Xarelto. [facility] Medical History (Updated 01/16/21 @ 08:[address] Lisa Casey MD) Acute exacerbation of chronic obstructive pulmonary disease (COPD) Acute respiratory failure with hypoxia and hypercarbia Anxiety Atherosclerotic heart disease of [place] coronary artery without angina pectoris Atrial fibrillation with RVR CAD (coronary artery disease) CAD (coronary artery disease) COPD (chronic obstructive pulmonary disease) Debility Diastolic congestive heart failure DM2 (diabetes mellitus, type 2) Essential hypertension Hiatal hernia HLD (hyperlipidemia) HTN (hypertension) Hypokalemia Junctional rhythm Long-term use of high-risk medication Morbid obesity NSTEMI (non-ST elevated myocardial infarction) SEVEN (obstructive sleep apnea) PAF (paroxysmal atrial fibrillation) Panic disorder Paroxysmal atrial fibrillation with rapid ventricular response Pulmonary HTN Sepsis SOB (shortness of breath) Spastic colon Streptococcal pneumonia Home Medications cholecalciferol (vitamin D3) 50 mcg (2,000 unit) tablet 2,000 unit PO DAILY #90 tab 02/04/19 [Rx Last Taken Unknown] compress.stocking,knee,reg,lrg #2 ea 05/06/19 [Rx Last Taken Unknown] magnesium oxide 400 mg PO DAILY #90 cap 07/01/19 [Rx Last Taken Unknown] albuterol sulfate 90 mcg/actuation aerosol inhaler 2 puff INHALATION Q4H PRN #18 g 11/05/19 [Rx Last Taken Unknown] duloxetine 60 mg capsule,delayed release 60 mg PO QDAY #90 cap 01/29/20 [Rx Last Taken Unknown] multivitamin 1 tab PO DAILY 02/03/20 [History Last Taken Unknown] ezetimibe 10 mg tablet 10 mg PO QDAY #90 tab 05/04/20 [Rx Last Taken Unknown] hydrochlorothiazide 25 mg tablet 25 mg PO DAILY #90 tab 05/04/20 [Rx Last Taken Unknown] metformin 500 mg tablet 500 mg PO BID #180 tab 05/04/20 [Rx Last Taken Unknown] potassium chloride 20 mEq tablet,extended release(part/cryst) 20 meq PO BID #180 tab 05/04/20 [Rx Last Taken Unknown] buspirone 10 mg tablet 10 mg PO TID tab 09/22/20 [History Last Taken Unknown] Breo Ellipta 100-25 Mcg INH 1 puff 09/24/20 [History Last Taken Unknown] Sotalol 120 mg PO BID 09/24/20 [History Last Taken Unknown] omeprazole 20 mg capsule,delayed release 20 mg PO DAILY #90 cap 09/28/20 [Rx Last Taken Unknown] lisinopril 40 mg tablet 40 mg PO DAILY #90 tab 10/02/20 [Rx Last Taken Unknown] rivaroxaban 20 mg tablet 20 mg PO DAILY #30 tab 10/14/20 [Rx Last Taken Unknown] fenofibrate micronized 67 mg capsule 67 mg PO QPM #90 cap 11/05/20 [Rx Last Taken Unknown] alendronate 70 mg tablet 70 mg PO QWEEK 12/07/20 [History Last Taken Unknown] amlodipine 5 mg tablet 7.5 mg PO DAILY #90 tab 12/17/20 [Rx Last Taken Unknown] lancing device #1 ea 12/29/20 [Rx Last Taken Unknown] lorazepam 0.5 mg tablet 0.5 mg PO BID PRN PRN #20 tablet 01/05/21 [Rx Last Taken Unknown] prednisone 40 mg PO DAILY #6 tab 01/16/21 [Rx Last Taken Unknown] Allergy/AdvReac Type Severity Reaction Status Date / Time amoxicillin Allergy Severe hives Verified 01/16/21 05:16 labetalol Allergy Unknown Verified 01/16/21 05:16 pitavastatin [From Livalo] Allergy Other Verified 01/16/21 05:16 simvastatin [From Zocor] Allergy Other Verified 01/16/21 05:16 budesonide [From Symbicort] AdvReac Other Verified 01/16/21 05:16 formoterol [From Symbicort] AdvReac Other Verified 01/16/21 05:16 hydrocodone [From Vicodin] AdvReac Other Verified 01/16/21 05:16 Ynvsvbr-Cuj-Glq Reductase AdvReac Other Verified 01/16/21 05:16 Inhibitor Family History Mother Cancer leukemia Father Respiratory disease Grandfather Myocardial infarction Grandmother Myocardial infarction Son Diabetes Surgical History History of colonoscopy History of surgery on right wrist History of tonsillectomy and adenoidectomy Social History Smoking Status: Never smoker alcohol intake: never substance use type: does not use caffeine: Yes Type: coffee Number of servings: 1 what type of physical activity do you participate in: none seatbelt use: always do you feel safe at home: Yes ROS ROS ED Constitutional Constitutional ED: Denies chills or fever(s) Eyes Eyes: Denies change in vision ENT ENT ED: Denies sore throat Cardiovascular Cardiovascular: Reports chest pain Respiratory/Chest Respiratory/Chest: Denies cough or dyspnea Gastrointestinal Gastrointestinal: Denies abdominal pain, diarrhea, nausea or vomiting Genitourinary Genitourinary ED: Denies dysuria Musculoskeletal Musculoskeletal: Denies back pain Integumentary Denies rash Neurologic Neurologic: Denies headache(s) or weakness Psychiatric Psychiatric: Denies anxiety or depression Endocrine Endocrinology: Denies polydipsia or polyuria Allergic/Immunologic Allergic/Immunologic ED: Denies urticaria EXAM Physical Exam Const Vital Signs: 01/16/21 05:08 01/16/21 05:17 01/16/21 05:21 Temperature 98.6 F Temperature Source Oral Pulse Rate 82 Respiratory Rate 22 H Respiratory Effort Normal Non-Labored Blood Pressure 184/75 H Blood Pressure Mean 111 Pulse Ox 94 Oxygen Delivery Method Room Air Room Air 01/16/21 07:11 01/16/21 07:32 Temperature Temperature Source Pulse Rate 75 78 Respiratory Rate 22 H 20 H Respiratory Effort Blood Pressure 181/96 H 173/118 H Blood Pressure Mean 124 136 Pulse Ox 96 94 Oxygen Delivery Method Positive well nourished and well developed General Appearance ED: well developed HEENT Reports normocephalic and head/scalp atraumatic Eyes PERRL and EOMs intact bilaterally Neck supple Chest Wall inspection of chest normal Chest Narrative: Reproducible tenderness of the left sternal border. Resp normal respiratory effort and clear to auscultation bilaterally Cardio regular rate and regular rhythm GI normal to inspection, nondistended, normoactive bowel sounds Palpation: soft Extremity normal to inspection Neuro oriented x3 and no sensory deficits noted Sensorium / Orientation: alert Motor Exam: strength 5/5 throughout Psych mental status grossly normal Skin no rashes or lesions noted Heart Score History: Slightly/Non-Suspicious ECG: Normal Age: >/= 65 years Risk Factors: >/= 3 Risk Factors or History of CAD Troponin: </= Normal Limit Score: 4 MDM MDM MDM Narrative Medical decision making narrative: Patient was given aspirin along with a small dose of fentanyl for pain. EKG, chest x-ray, labs are obtained. Lab Data Attestation: I reviewed the patient's lab results. Labs: Laboratory Results - last 24 hr 01/16/21 01/16/21 01/16/21 05:20 05:20 07:30 WBC 7.5 RBC 4.93 Hgb 13.8 Hct 43.5 MCV 88.2 MCH 28.0 MCHC 31.7 L RDW Std Deviation 41.1 RDW Coeff of Nabor 12.7 Plt Count 277 MPV 10.9 Immature Gran % (Auto) 0.500 Neut % (Auto) 70.5 H Lymph % (Auto) 18.1 L [place] % (Auto) 8.5 Eos % (Auto) 2.3 Baso % (Auto) 0.1 Absolute Neuts (auto) 5.3 Absolute Lymphs (auto) 1.36 Nucleated RBC % 0 Sodium 137 Potassium 4.3 Chloride 101 Carbon Dioxide 30.0 Anion Gap 6 BUN 17 Creatinine 0.70 Estim Creat Clear Calc 45.09 Est GFR (MDRD) Af Amer 105 Est GFR (MDRD) Non-Af 87 BUN/Creatinine Ratio 24.3 H Glucose 153 H Calcium 9.1 Troponin I High Sens 8.5 9.0 Radiography Chest X-Ray - ED: 1 View, Read by ED Physician and Chronic Changes Diagnostic Testing: Radiology Impression Chest X-Ray 01/16/21 05:52 IMPRESSION: Streaky opacities in the lung bases, more pronounced on the right. This is nonspecific and may represent atelectasis or scarring. Developing infectious process is not entirely excluded. Electronically Signed: Carlos Najera MD at 8:18 EDT Tel , Service support , EKG Initial EKG: Attestation: I personally reviewed and interpreted this EKG as follows: Interpretation: Sinus Rhythm (Sinus at 79 with no acute ischemia.) Follow-up EKG: Attestation: I personally reviewed and interpreted this EKG as follows: Interpretation: Sinus Rhythm (Sinus at 78 with no acute ischemia.) Treatment and Re-Evaluation Comments:: Portable chest x-ray per my interpretation was chronic changes. EKG does not reveal sign of ischemia. Initial lab work is unremarkable with troponin of 8.5. Although the pain does not sound cardiac in nature, because of her extensive cardiac history delta troponin is obtained. This is unremarkable at 9.0. Repeat EKG is also normal. Patient will be given a short course of steroids to help with chest wall inflammation. Discharge Plan Triage Chief Complaint: Chest Pain ED Provider: Lisa Casey Dx/Rx/DC Orders Clinical Impression: Acute chest wall pain Instructions: ED Chest Wall Pain, Costochondritis Prescriptions: New prednisone 20 mg tablet 40 mg PO DAILY Qty: 6 RF: 0 No Action Ventolin HFA 90 mcg/actuation HFA aerosol inhaler 2 puff INHALATION Q4H PRN (Reason: shortness of breath or wheezing) Qty: 18 RF: 6 (DME) compress.stocking,knee,reg,lrg Misc See Rx Instructions .ROUTE .MEDSUPPLY Qty: 2 RF: 1 multivitamin tablet,chewable 1 tab PO DAILY RF: 0 hydrochlorothiazide 25 mg tablet 25 mg PO DAILY Qty: 90 RF: 3 metformin 500 mg tablet 500 mg PO BID Qty: 180 RF: 3 ezetimibe [Zetia] 10 mg tablet 10 mg PO QDAY Qty: 90 RF: 3 potassium chloride [Klor-Con M20] 20 mEq tablet,ER particles/crystals 20 meq PO BID Qty: 180 RF: 3 alendronate 70 mg tablet 70 mg PO QWEEK RF: 0 Sotalol 120 mg PO BID RF: 0 Breo Ellipta 100-25 Mcg INH 1 puff RF: 0 cholecalciferol (vitamin D3) 2,000 unit tablet 2,000 unit PO DAILY Qty: 90 RF: 3 magnesium oxide 400 mg capsule 400 mg magnesium capsule 400 mg PO DAILY Qty: 90 RF: 3 duloxetine 60 mg capsule,delayed release(DR/EC) 60 mg PO QDAY Qty: 90 RF: 3 buspirone 10 mg tablet 10 mg PO TID RF: 0 omeprazole 20 mg capsule,delayed release(DR/EC) 20 mg PO DAILY Qty: 90 RF: 1 lisinopril 40 mg tablet 40 mg PO DAILY Qty: 90 RF: 3 rivaroxaban 20 mg tablet 20 mg PO DAILY Qty: 30 RF: 3 fenofibrate micronized 67 mg capsule 67 mg PO QPM Qty: 90 RF: 3 amlodipine 5 mg tablet 7.5 mg PO DAILY Qty: 90 RF: 3 (DME) lancing device Misc See Rx Instructions .ROUTE .MEDSUPPLY Qty: 1 RF: 0 lorazepam 0.5 mg tablet 0.5 mg PO BID PRN PRN (Reason: anxiety) Qty: 20 RF: 0 Primary Care Provider: Quique Mims Referrals: Quique Mims MD [Primary Care Provider] - 1 Week Disposition Disposition: Home, Self Care
[2021-01-16 07:11] VITALS: BP 181/96; PULSE 75; RESP 22; O2SAT 96
--- NOTE | 2021-01-16 07:30 | EKG12_ITS ---
Test Reason : REPEAT Blood Pressure : / mmHG Vent. Rate : 078 BPM Atrial Rate : 078 BPM P-R Int : 140 ms QRS Dur : 090 ms QT Int : 404 ms P-R-T Axes : 068 044 012 degrees QTc Int : 460 ms Sinus rhythm with marked sinus arrhythmia Otherwise normal ECG Confirmed by NAHUM WOLFE, CRISTI ([id number]), editorial intern MONTY ARIZMENDI ([id number]) on 01/19/2021 8:41:39 AM Referred By: MICHELLE Confirmed By:CRISTI SIDHU MD
[2021-01-16 07:32] VITALS: BP 173/118; PULSE 78; RESP 20; O2SAT 94
[2021-01-16] MEDS: predniSONE 20 MG Tablet 40 MG PO (08:22)
[2021-01-16 08:24] VITALS: BP 161/79; PULSE 81; RESP 22; O2SAT 95
--- NOTE | 2021-01-16 08:24 | ED.RN ---
THIS NURSE REVIEWED D/C INSTRUCTIONS WITH PT. PT VERBALIZED UNDERSTANDING OF INSTRUCTIONS. IV D/C. IV CATHETER INTACT. PT TOLERATED WELL. PT DENIES FURTHER NEEDS OR QUESTIONS AT THIS TIME
== END 2021-01-16 08:26 | disposition home or self-care (01) ==
PROVIDERS: Emergency Provider Emergency Medicine; PCP Internal Medicine
DX: R07.89 Other chest pain (principal); I25.10 Atherosclerotic heart disease of native coronary artery without angina pectoris; E66.01 Morbid (severe) obesity due to excess calories; E11.9 Type 2 diabetes mellitus without complications; F41.9 Anxiety disorder, unspecified; I25.2 Old myocardial infarction; I11.0 Hypertensive heart disease with heart failure; I50.9 Heart failure, unspecified; I48.0 Paroxysmal atrial fibrillation; J44.9 Chronic obstructive pulmonary disease, unspecified; Z79.84 Long term (current) use of oral hypoglycemic drugs; Z79.899 Other long term (current) drug therapy
CPT/HCPCS: 71045; 80048; 84484; 85025; 93005; 96374; 99285; A4216

== ENCOUNTER → 2021-04-27 11:18 | Outpatient (CLI) | payer MEDICARE, OTHER, SELFPAY ==
[2021-04-27 12:48] LABS: AST(SGOT) 28 U/L (15-37); Alanine Aminotransfer ALT/SGPT 29 U/L (13-56); Albumin, Serum 3.8 g/dL (3.2-5.0); Alkaline Phosphatase 53 U/L (45-117); Anion Gap 7 (5-15); BUN 17 mg/dL (7-18); BUN/Creat Ratio 25.7 RATIO (10-20); Calcium,Total 9.6 mg/dL (8.5-10.1); Chloride 104 mmol/L (98-107); Creatinine, Serum 0.66 mg/dL (0.55-1.02); EST Glomerular Filtration Rate 93 mL/min (>60); Est Glom Filt Rate - Afr Amer 113 mL/min (>60); Globulin 3.7 g/dL (2.2-4.2); Glucose 134 mg/dL (74-106); Potassium 4.1 mmol/L (3.5-5.1); Protein, Total 7.5 g/dL (6.4-8.2); Sodium Level 140 mmol/L (136-145)
[2021-04-27 12:49] LABS: Vitamin D,25 Hydroxy 18.9 ng/mL
== END ==
PROVIDERS: PCP Internal Medicine; Referring Provider Internal Medicine; Visit Provider Internal Medicine
DX: E11.9 Type 2 diabetes mellitus without complications (principal); M81.0 Age-related osteoporosis without current pathological fracture
CPT/HCPCS: 36415; 80053; 82306

== ENCOUNTER → 2021-06-10 09:16 | Outpatient (CLI) | payer MEDICARE, OTHER, SELFPAY ==
[2021-06-10 10:39] LABS: AST(SGOT) 19 U/L (15-37); Alanine Aminotransfer ALT/SGPT 24 U/L (13-56); Albumin, Serum 3.6 g/dL (3.2-5.0); Alkaline Phosphatase 53 U/L (45-117); Bilirubin, Direct 0.11 mg/dL (0.00-0.30); Cholesterol 260 mg/dL (200); Globulin 3.6 g/dL (2.2-4.2); High Density Lipoprotein 32 mg/dL; Protein, Total 7.2 g/dL (6.4-8.2); Triglycerides 281 mg/dL; Very Low Density Lipoprotein 56 mg/dL (5-40)
== END ==
PROVIDERS: PCP Internal Medicine; Referring Provider Nurse Practitioner Family; Visit Provider Nurse Practitioner Family
DX: E78.00 Pure hypercholesterolemia, unspecified (principal)
CPT/HCPCS: 36415; 80061; 80076

== ENCOUNTER 2021-10-27 10:36 | Outpatient (CLI) | payer MEDICARE, OTHER, SELFPAY ==
[2021-10-27 12:10] LABS: Absolute Lymphocyte Count 1.38 X10^3/uL (0.83-4.51); Absolute Neutrophil Count 7.4 X10^3/uL (2.0-7.7); Basophil# 0.01 X10^3/uL; Basophil% 0.1 % (0-1); Eosinophil# 0.09 X10^3/uL; Eosinophils% 0.9 % (0-5); Hemoglobin 13.4 g/dL (12.0-15.0); Lymphocyte # 1.38 X10^3/ul (0.83-4.51); Lymphocyte % 13.9 % (19-41); Mean Corp Hgb Conc 30.5 g/dL (32-36); Mean Corpuscular Hgb 26.2 pg (27.0-32.0); Mean Corpuscular Volume 86.1 fL (81-99); Mean Platelet Vol. 11.1 fl (6.2-12.0); Monocyte# 1.09 X10^3/uL; NRBC Flagged by Analyzer 0 % (0-5); Neutrophil # 7.35 X10^3/uL (2.7-7.7); Neutrophil % 73.8 % (47-70); Platelet Count 543 K/mm3 (150-450); RBC Distribution Width CV 13.9 % (11.6-14.6); RBC Distribution Width SD 43.7 fl (35.1-43.9); Red Blood Count 5.11 M/mm3 (4.2-5.4)
[2021-10-27 12:26] LABS: ALB/GLOB Ratio 0.9 RATIO (0.9-2.4); AST(SGOT) 31 U/L (15-37); Alanine Aminotransfer ALT/SGPT 23 U/L (13-56); Albumin, Serum 3.5 g/dL (3.2-5.0); Alkaline Phosphatase 65 U/L (45-117); Anion Gap 4 (5-15); BUN 21 mg/dL (7-18); BUN/Creat Ratio 24.9 RATIO (10-20); Calcium,Total 9.4 mg/dL (8.5-10.1); Chloride 104 mmol/L (98-107); Cholesterol 225 mg/dL (200); Creatinine, Serum 0.84 mg/dL (0.55-1.02); EST Glomerular Filtration Rate 70 mL/min (>60); Est Glom Filt Rate - Afr Amer 85 mL/min (>60); Globulin 3.7 g/dL (2.2-4.2); Glucose 101 mg/dL (74-106); High Density Lipoprotein 30 mg/dL; Potassium 4.9 mmol/L (3.5-5.1); Protein, Total 7.2 g/dL (6.4-8.2); Sodium Level 137 mmol/L (136-145); Triglycerides 296 mg/dL; Very Low Density Lipoprotein 59 mg/dL (5-40)
== END 2021-10-27 23:59 | disposition home or self-care (01) ==
LOC: BIMLAB 10:37
PROVIDERS: PCP Internal Medicine; Referring Provider Internal Medicine; Visit Provider Internal Medicine
DX: E11.69 Type 2 diabetes mellitus with other specified complication (principal)
CPT/HCPCS: 36415; 80053; 80061; 85025

== ENCOUNTER → 2021-12-13 | Outpatient (CLI) | payer MEDICARE, OTHER, SELFPAY ==
[2021-12-13 11:23] LABS: Erythrocyte Sedimentation Rate 33 mm/hr (0-30)
[2021-12-13 11:52] LABS: LDH 486 U/L (84-246); Thyroid Stim Hormone (TSH) 1.32 uIU/mL (0.358-3.74)
[2021-12-14 12:18] LABS: Anti-Centromere B Ab <0.2 AI (0.0-0.9); Anti-Chromatin <0.2 AI (0.0-0.9); Anti-Jo <0.2 AI (0.0-0.9); Anti-Scleroderma-70 AB <0.2 AI (0.0-0.9); RNP Ab 0.3 AI (0.0-0.9); SJOGREN'S Anti-SS-A test < 0.2 AI (0.0-0.9); SJOGREN'S Anti-SS-B test < 0.2 AI (0.0-0.9); Smith Ab <0.2 AI (0.0-0.9)
[2021-12-14 14:50] LABS: Anti-dsDNA Ab <1 IU/mL (0-9)
[2021-12-15 09:08] LABS: Cytoplasmic Ab (C-ANCA) <1:20 titer (Neg:<1:20); Endomysial Antibody IgA Negative (Negative); Immunoglobulin A 78 mg/dL (64-422)
[2021-12-15 10:03] LABS: Gastrin, Serum 324 pg/mL (0-115); Perinuclear Ab (P-ANCA) <1:20 titer (Neg:<1:20); t-Transglutaminase IgA <2 U/mL (0-3)
== END | disposition home or self-care (01) ==
PROVIDERS: PCP Internal Medicine; Referring Provider Nurse Practitioner Adult Health; Visit Provider Nurse Practitioner Adult Health
DX: R19.7 Diarrhea, unspecified (principal); R10.9 Unspecified abdominal pain; R68.81 Early satiety
CPT/HCPCS: 36415; 82784; 82941; 83516; 83615; 84443; 85652; 86140; 86225; 86235; 86255; 86256

== ENCOUNTER → 2021-12-16 | Outpatient (CLI) | payer MEDICARE, OTHER, SELFPAY ==
--- NOTE | 2021-12-16 15:07 | CT_ITS ---
STUDY: CT ABDOMEN AND PELVIS WITH CONTRAST REASON FOR EXAM: Female, 76 years old. Abdominal pain and diarrhea. RADIATION DOSAGE (If Supplied By Facility): CTDIvol = ( 18.19 ) mGy, DLP = ( 1318.41 ) mGycm TECHNIQUE: Transaxial images were obtained from the dome of the diaphragm to the symphysis pubis with oral contrast. 100 mL of ISOVUE-300 was administered. Sagittal and coronal images were reconstructed. Individualized dose optimization techniques were used for this CT. COMPARISON: None. FINDINGS: There is increased AP diameter of the chest. Lung bases appear clear. There is atelectatic changes at the left lung base along the left oblique fissure with large left pleural effusion. The visualized portions of the heart are within normal limits. Mitral valve calcifications. 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 No hepatic mass. Normal gallbladder and extrahepatic biliary system. There are vague hypodensities in the spleen which may be secondary to cysts or low attenuation solid masses. Normal pancreas. Normal bilateral adrenal glands. This is small exophytic cyst off the upper pole right kidney. Question parapelvic cyst. There is no renal calculi. No hydronephrosis. Normal visualized right ureter. There is a 1 cm exophytic cyst off the upper pole the left kidney. Parapelvic cysts. There is arthritic calcification in upper pole calyx. No hydronephrosis. Normal visualized ureter. Small hiatal hernia. The stomach is poorly distended with possible gastritis for mass cannot be definitively ruled out. Normal small intestine. There is descending and sigmoid diverticulosis without acute inflammatory change. The colon is otherwise unremarkable. The appendix is visualized and appears normal. There is diffuse atherosclerotic calcification of the abdominal aorta, without a demonstrated aneurysm. Normal inferior vena cava. Normal retroperitoneum. The urinary bladder is collapsed. Anterior to the atrophic uterus is a large heterogenous soft tissue mass which fills the pelvis and lower abdomen. This measures approximately 14.1 x 14 x 13.8 cm. Area is marked irregularity and involvement of the left greater omental which approximates the mass. There is diffuse ascites without free air. No obvious evidence of peritoneal implantation. There is no pelvic lymphadenopathy. There is diffuse anasarca of the abdominal wall. There is a fluid density mass in the subumbilical region with a small enhancing nodule. There are diffuse degenerative changes of the visualized lumbar spine. No lytic or blastic lesions are seen. CT/Abdomen/Pelvis WITH Contrast IMPRESSION: 1. Mixed heterogenous mass in the pelvis thought most likely represent an ovarian malignancy. There is associated metastatic disease involving the greater omentum. 2. Marked ascites. 3. Large left pleural effusion. 4. Hypodensities within the spleen. Question metastatic disease. 5. Bilateral renal cysts. There is a question left renal calculus. 6. Hiatal hernia. 7. Colonic diverticulosis. Electronically Signed: Luke Ladd DO at 16:13 EDT Reading Location ID and State: [facility] / [place] Tel [phone], Service support ,
[2021-12-16 15:26] LABS: CREATININE FINGERSTICK < 0.9 mg/dL (0.55-1.02); EGFR FINGERSTICK > 60.0000 mL/min (>60)
[2021-12-21 09:07] LABS: H. PYLORI STOOL AG Negative (Negative)
[2021-12-21 10:37] LABS: Giardia Lamblia, Stool EIA Negative (Negative)
[2021-12-22 09:11] LABS: Calprotectin, Stool 115 ug/g (0-120)
== END | disposition home or self-care (01) ==
PROVIDERS: PCP Internal Medicine; Referring Provider Nurse Practitioner Adult Health; Visit Provider Nurse Practitioner Adult Health
DX: R19.7 Diarrhea, unspecified (principal)
CPT/HCPCS: 74177; 83630; 83993; 87329; 87493; 87506; Q9967; A4216

== ENCOUNTER → 2021-12-22 | Outpatient (CLI) | payer MEDICARE, OTHER, SELFPAY ==
--- NOTE | 2021-12-22 | IMM_PTH ---
PATIENT: ANDREW VELAZQUEZ LOC: [facility]#:[id number] AGE/SX: 76/F ROOM: RE12/22/[address]: LULU Dangelo : 1945 BED: DIS: 12/22/2021 SPEC #: [id number] RECD: 12/23/21 14:12 STATUS: BEKAH REQ #: [id number] JOAO: 12/22/21 00:[address]: Mary Alegria NP DEPT: IMMUNOHISTOCHEMISTRY RECD BY: Lesli Sanchez ENTERED: 12/23/21 14:16 SP TYPE: IMMUNO OTHR DR: Dr. Quique Mims MD Tissues: PARACENTESIS FLUID Procedures: RCC (add) SMA (add) NAPSIN A (add) CA-125 (add) [place] Ret (add) CEA (add) CK19 (add) CK20 (add) CK7 (add) CK8 (add) CAMERON (add) HEP PAR (add) KI-67 (add) P53 (add) SD (add) TTF1 (add) Vimentin (add) Pankeratin (add) GATA3 (add) CD44 (add) ER (initial) S-100 (add) PHYSICIAN & INSTITUTION [place] [id number] SPECIMEN INFORMATION: Tissue Source: Paracentesis fluid Clinical Info: Ascites Specimen Number: [id number] CPT code: 73792, 33136 x21 METHODOLOGY: Deparaffinized sections of prefer/formalin-fixed tissue or PAP/DQ stained slides are incubated with monoclonal/polyclonal antibodies/oligonucleotide probes. Localization is made via biotin free immunoperoxidase method. Appropriate controls are performed and reacted as expected. Results on target cell population are indicated in the following table: RESULTS: ANTIBODY / CLONE RESULT ER (6F11) negative SD (1E2) negative GATA3 (L50-823) negative AE1-3 (AE1/AE3/PCK26) positive CK7 (OV-TL12/30) positive CK8 (97bgdsK35) positive CK20 (KS20.8) negative Vimentin (V9) positive Actin (1A4) negative S-100 (4C4.9) negative CK19 (A53-B/A2.26) positive TTF-1 (8G7G3/1) negative Napsin A (Rabbit Polyclonal) negative HepPar (OCh1E5) negative RCC (PN-15) negative CALRET (polyclonal) negative anti-CD44 (SP37) positive CAMERON (E29) positive CEA (11-7/TF-3HB-1) negative CA125 (OC125) positive P53 (DO-7) negative Ki-67 (30-9) positive These tests were developed and their performance characteristics determined by [facility]. They may not have been cleared or approved by the U.S. Food and Drug Administration. The FDA has determined that such clearance or approval is not necessary. The above immunohistochemical/dualISH markers are ordered and reviewed by the Pathologist. INTERPRETATION: Paracentesis fluid (cell block): Metastatic carcinoma consistent with ovarian primary. AM:yamileth 12/24/2021
--- NOTE | 2021-12-22 | FLU_PTH ---
PATIENT: ANDREW VELAZQUEZ LOC: [facility]#:[id number] AGE/SX: 76/F ROOM: RE12/22/[address]: LULU Dangelo : 1945 BED: DIS: 12/22/2021 SPEC #: [id number] RECD: 12/22/21 10:13 STATUS: BEKAH REGinger #: [id number] JOAO: 12/22/21 00:[address]: Mary Alegria NP DEPT: CYTOLOGY RECD BY: Andre Nunes ENTERED: 12/22/21 10:14 SP TYPE: Fluid OTHR DR: Dr. 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 See comment. AM:yamileth 12/23/2021 COMMENT Immunohistochemistry ([id number]) supports the above diagnosis. Mucin stain with matched control was used in the evaluation of this case. CYTOLOGY STUDY Slides are reviewed. CYTOLOGY GROSS Received is 85 ml of yellow cloudy fluid labeled with the patient's name and and designated per the requisition as paracentesis. Submitted for cytology preparation including cell block. / yamileth 12/22/2021 TC:0 CPT: 72386, 16604, 13930
--- NOTE | 2021-12-22 07:41 | US_ITS ---
PROCEDURE: Ultrasound guided paracentesis. DATE OF EXAMINATION: 12/22/2021. INDICATION: Female, 76 years old. Ascites. PHYSICIAN: Omar Reyes M.D. TECHNIQUE: The risks, benefits, and alternatives to the procedure were explained to the patient. The specific risks of bleeding, infection, and damage to bowel were detailed and accepted. Witnessed informed consent was obtained. The abdomen was ultrasonographically surveyed. An appropriate pocket of fluid was identified at the right lower quadrant. The skin were cleaned and prepped in the usual sterile fashion. Using ultrasound guidance, the peritoneal cavity was accessed with a 5-Tristanian paracentesis needle/catheter system. The trocar was removed. A total of 6450 ml of angelique-colored fluid were removed from the peritoneal cavity. A 100 mL sample was sent to the laboratory for analysis. The catheter was removed and a sterile dressing was applied. The procedure was well tolerated. US/Paracentesis with US IMPRESSION: Ultrasound guided paracentesis. Electronically Signed: Omar Reyes MD at 9:34 EDT ,
[2021-12-22 08:19] VITALS: BP 113/50; BP 135/61; BP 140/68; PULSE 72; PULSE 73; PULSE 74; RESP 16; RESP 18; RESP 20; O2SAT 92; O2SAT 94
[2021-12-22] MEDS: Lidocaine 2% (20 ml mdv) 20 ML Vial INFILT (08:20)
[2021-12-22] MEDS: Albumin Human 25% (100 mL) 25 GM/100 ML BAG IV (09:53)
[2021-12-22] MEDS: Albumin Human 25% (50 mL) 12.5 GM/50 ML IV.SOLN IV (11:21)
[2021-12-22 12:20] VITALS: BP 109/53; PULSE 74
== END | disposition home or self-care (01) ==
LOC: US 08:47 → MEDOUTP 09:19
PROVIDERS: PCP Internal Medicine; Visit Provider Nurse Practitioner Adult Health
DX: R18.8 Other ascites (principal)
CPT/HCPCS: 96365; 96366 ×2; 49083; 88108; 88305; 88313; 88341; 88342; P9047

== ENCOUNTER 2021-12-28 08:49 | Outpatient (CLI) | payer MEDICARE, OTHER, SELFPAY ==
--- NOTE | 2021-12-28 09:12 | NM_ITS ---
Study: Gastric emptying scan. COMPARISON: None. TECHNIQUE: Multiple images of the abdomen were obtained following oral administration of 1 mCi TECHNETIUM 99M sulfur colloid. HISTORY: Pain. FINDINGS: Normal emptying of radiotracer by the stomach is noted. Gastric emptying half time is calculated at 28 minutes. NM/Gastric Emptying Study IMPRESSION: Normal gastric emptying study. Electronically Signed: Tacho Rodriguez MD at 3:09 EDT ,
[2021-12-29 15:08] LABS: Alpha-1-Globulins 0.5 g/dL (0.0-0.4); Alpha-2-Globulins 1.2 g/dL (0.4-1.0); Gamma Globulin 0.4 g/dL (0.4-1.8); Immunoglobulin A 65 mg/dL (64-422); Immunoglobulin G 483 mg/dL (586-1602); Immunoglobulin M 50 mg/dL (26-217); PROEL- TOTAL PROTEIN 6.2 g/dL (6.0-8.5)
[2021-12-29 21:07] LABS: CA 15-3 97.7 U/mL (0.0-25.0); Carbohydrate Ag 19-9 2261 258 U/mL (0-35); Carcinoembryonic Antigen 1.6 ng/mL (0.0-4.7)
== END 2021-12-28 23:59 | disposition home or self-care (01) ==
LOC: NM 08:51
PROVIDERS: PCP Internal Medicine; Referring Provider Nurse Practitioner Adult Health; Visit Provider Nurse Practitioner Adult Health
DX: R18.8 Other ascites (principal); R68.81 Early satiety
CPT/HCPCS: 36415; 78264; 82378; 82784; 84165; 86300; 86301; 86304; 86334; A9541

== ENCOUNTER → 2021-12-31 | Outpatient (CLI) | payer MEDICARE, OTHER, SELFPAY ==
--- NOTE | 2021-12-31 11:28 | US_ITS ---
PROCEDURE: ULTRASOUND GUIDED PARACENTESIS CLINICAL HISTORY: Female, 76 years old. ASCITES CONSENT: PROCEDURE: Ultrasound guided paracentesis. DATE OF EXAMINATION: 12/31/2021. INDICATION: Female, 76 years old. Ascites. PHYSICIAN: Vishal Delaney DO TECHNIQUE: The risks, benefits, and alternatives to the procedure were explained to the patient. The specific risks of bleeding, infection, and damage to bowel were detailed and accepted. Witnessed informed consent was obtained. The abdomen was ultrasonographically surveyed. An appropriate pocket of fluid was identified at the right lower quadrant. The skin were cleaned and prepped in the usual sterile fashion. Using ultrasound guidance, the peritoneal cavity was accessed with a 5-Japanese paracentesis needle/catheter system. The trocar was removed. A total of 2150 ml of clear angleique-colored fluid were removed from the peritoneal cavity and discarded. The catheter was removed and a sterile dressing was applied. The procedure was well tolerated. There were no complications and the patient was discharged in stable condition. US/Paracentesis with US IMPRESSION: Ultrasound guided therapeutic paracentesis. Electronically Signed: Vishal Delaney, at 13:10 EDT ,
[2021-12-31] MEDS: Lidocaine 2% (20 ml mdv) 20 ML Vial INFILT (12:05)
[2021-12-31 12:23] VITALS: BP 107/54; BP 112/61; BP 116/47; PULSE 74; PULSE 75; PULSE 76; RESP 20; O2SAT 94; O2SAT 95
== END | disposition home or self-care (01) ==
PROVIDERS: PCP Internal Medicine; Referring Provider Nurse Practitioner Adult Health; Visit Provider Nurse Practitioner Adult Health
DX: R19.00 Intra-abdominal and pelvic swelling, mass and lump, unspecified site (principal)
CPT/HCPCS: 49083

== ENCOUNTER → 2022-01-07 | Outpatient (CLI) | payer MEDICARE, OTHER, SELFPAY ==
--- NOTE | 2022-01-07 08:11 | US_ITS ---
STUDY: ABDOMINAL ULTRASOUND - RIGHT UPPER QUADRANT REASON FOR VISIT: Female, 76 years old ASCITES assessment. TECHNIQUE: Ultrasound evaluation of the 4 quadrants was performed with real-time and static charles-scale imaging. TECHNICAL QUALITY: Adequate. COMPARISON: None. FINDINGS: Small amount of free fluid is seen in the right lower quadrant. Not enough fluid for safe paracentesis. US/Abdomen Limited IMPRESSION: Small amount of fluid is seen in the right lower quadrant. Not enough fluid for safe paracentesis. Electronically Signed: Omar Reyes MD at 10:18 EDT ,
== END | disposition home or self-care (01) ==
PROVIDERS: PCP Internal Medicine; Referring Provider Nurse Practitioner Adult Health; Visit Provider Nurse Practitioner Adult Health
DX: R18.8 Other ascites (principal)
CPT/HCPCS: 76705

== ENCOUNTER → 2022-01-14 | Outpatient (CLI) | payer MEDICARE, OTHER, SELFPAY ==
--- NOTE | 2022-01-14 08:06 | US_ITS ---
PROCEDURE: ULTRASOUND GUIDED PARACENTESIS CLINICAL HISTORY: Female, 76 years old. ASCITES CONSENT: PROCEDURE: Ultrasound guided paracentesis. DATE OF EXAMINATION: 01/14/2022. INDICATION: Female, 76 years old. Ascites. PHYSICIAN: Vishal Delaney DO TECHNIQUE: The risks, benefits, and alternatives to the procedure were explained to the patient. The specific risks of bleeding, infection, and damage to bowel were detailed and accepted. Witnessed informed consent was obtained. The abdomen was ultrasonographically surveyed. An appropriate pocket of fluid was identified at the right lower quadrant. The skin were cleaned and prepped in the usual sterile fashion. Using ultrasound guidance, the peritoneal cavity was accessed with a 5-Mongolian paracentesis needle/catheter system. The trocar was removed. A total of 4300 ml of clear straw-colored ascites fluid were removed from the peritoneal cavity and discarded. The catheter was removed and a sterile dressing was applied. The procedure was well tolerated. There were no complications and the patient was discharged in stable condition. US/Paracentesis with US IMPRESSION: Ultrasound guided therapeutic paracentesis. Electronically Signed: Vishal Delaney, at 11:41 EDT ,
[2022-01-14 08:25] VITALS: BP 132/70; BP 138/65; BP 142/72; PULSE 79; PULSE 88; RESP 18; TEMP 37.2; O2SAT 93; O2SAT 94
[2022-01-14] MEDS: Lidocaine 2% (20 ml mdv) 20 ML Vial INFILT (08:28)
== END | disposition home or self-care (01) ==
PROVIDERS: PCP Internal Medicine; Referring Provider Nurse Practitioner Adult Health; Visit Provider Nurse Practitioner Adult Health
DX: R18.8 Other ascites (principal)
CPT/HCPCS: 49083; A4216

== ENCOUNTER 2022-01-19 05:16 | Emergency (ER) | payer MEDICARE, OTHER, SELFPAY ==
[2022-01-19 05:17] VITALS: BP 149/98; PULSE 106; RESP 26; TEMP 36.8; O2SAT 94; BMI 33.9
--- NOTE | 2022-01-19 05:38 | EKG12_ITS ---
Test Reason : ABD PAIN Blood Pressure : / mmHG Vent. Rate : 093 BPM Atrial Rate : 093 BPM P-R Int : 138 ms QRS Dur : 080 ms QT Int : 374 ms P-R-T Axes : 069 056 043 degrees QTc Int : 465 ms Sinus rhythm with occasional Premature ventricular complexes Otherwise normal ECG Confirmed by DEEPTI WOLFE, FLOYD ([id number]), editor & co founder MONTY ARIZMENDI ([id number]) on 01/20/2022 11:18:14 A M Referred By: CARLOS Confirmed By:ARNOLD TATUM MD
--- NOTE | 2022-01-19 05:39 | ED.VIS.GI ---
HPI <Dr. Nara Marcum DO - Last Filed: 01/19/22 07:26> HPI - GI History of Present Illness Chief Complaint: Abd Pain Informant: patient Narrative Narrative: Patient is a 76-year-old female with complex medical history including atrial fibrillation on Xarelto (has not missed any doses) and malignant neoplasm of ovary as well as malignant ascites who just started chemotherapy with Dr. Ochoa 3 days ago presenting with abdominal discomfort. Patient is on bevacizumab, paclitaxel and carboplatin. She also received 20 mg of Decadron with her first chemo. She states she started having a slight headache yesterday which improved with Tylenol. This morning she developed pain in her epigastric region that radiates up to her chest. She has nausea but no vomiting. She has a prescription for Phenergan but has not taken it. She states her bowel movements fluctuate between soft and runny. Denies any blood in her stool. Denies any fever or shortness of breath. States she spoke to the on-call who recommended coming to the emergency room in case she had a PE. Patient denies any history of PE and does not think she has 1 she is not feeling short of breath. She knows she does feel little dizzy. Denies any chest pain. Is worried that there could be something wrong with her stomach and wants that to be evaluated. Was told that she could have abdominal pain as a side effect from her chemotherapy. [facility] <Dr. Nara Marcum DO - Last Filed: 01/19/22 07:26> [facility] Medical History Abdominal pain Acute exacerbation of chronic obstructive pulmonary disease (COPD) Acute respiratory failure with hypoxia and hypercarbia Anxiety Ascites Atherosclerotic heart disease of [place] coronary artery without angina pectoris Atrial fibrillation with RVR CAD (coronary artery disease) CAD (coronary artery disease) COPD (chronic obstructive pulmonary disease) Debility Diarrhea Diastolic congestive heart failure DM2 (diabetes mellitus, type 2) Essential hypertension Flu vaccine need Hiatal hernia HLD (hyperlipidemia) HTN (hypertension) Hypokalemia Junctional rhythm Long-term use of high-risk medication Morbid obesity NSTEMI (non-ST elevated myocardial infarction) SEVEN (obstructive sleep apnea) PAF (paroxysmal atrial fibrillation) Panic disorder Paroxysmal atrial fibrillation with rapid ventricular response Pelvic mass Pulmonary HTN Sepsis SOB (shortness of breath) Spastic colon Streptococcal pneumonia Vitamin D deficiency Home Medications compress.stocking,knee,reg,lrg #2 ea 05/06/19 [Rx Last Taken Unknown] magnesium oxide 400 mg PO DAILY #90 caps 07/01/19 [Rx Last Taken Unknown] albuterol sulfate 90 mcg/actuation aerosol inhaler (Ventolin HFA) 2 puff inhalation Q4H PRN shortness of breath or wheezing #18 grams 11/05/19 [Rx Last Taken Unknown] multivitamin 1 tab PO DAILY 02/03/20 [History Last Taken Unknown] lancing device #1 ea 12/29/20 [Rx Last Taken Unknown] duloxetine 60 mg capsule,delayed release 60 mg PO QDAY #90 caps 02/10/21 [Rx Last Taken Unknown] potassium chloride 20 mEq tablet,extended release(part/cryst) (Klor-Con M) 20 meq PO BID #180 tabs 04/23/21 [Rx Last Taken Unknown] cholecalciferol (vitamin D3) 1,250 mcg (50,000 unit) tablet 50,000 unit PO QWEEK #20 tabs 04/28/21 [Rx Last Taken Unknown] rivaroxaban 20 mg tablet 20 mg PO DAILY #90 tabs 05/18/21 [Rx Last Taken Unknown] hydrochlorothiazide 25 mg tablet 25 mg PO DAILY #90 tabs 05/28/21 [Rx Last Taken Unknown] ezetimibe 10 mg tablet (Zetia) 10 mg PO QDAY #90 tabs 07/27/21 [Rx Last Taken Unknown] pantoprazole 40 mg tablet,delayed release 40 mg PO BID 3 months #180 tabs 07/27/21 [Rx Last Taken Unknown] sotalol 120 mg tablet 120 mg PO BID #180 tabs 09/03/21 [Rx Last Taken Unknown] lisinopril 40 mg tablet 40 mg PO DAILY #90 tabs 10/13/21 [Rx Last Taken Unknown] fenofibrate micronized 67 mg capsule 67 mg PO QPM #90 caps 11/10/21 [Rx Last Taken Unknown] amlodipine 5 mg tablet 7.5 mg PO DAILY #135 tabs 12/30/21 [Rx Last Taken Unknown] buspirone 15 mg tablet 15 mg PO TID 3 months #270 tabs 01/03/22 [Rx Last Taken Unknown] lorazepam 0.5 mg tablet 0.5 mg PO BID PRN anxiety #20 tabs 01/03/22 [Rx Last Taken Unknown] metformin 500 mg tablet 500 mg PO BID #180 tabs 01/03/22 [Rx Last Taken Unknown] fluticasone furoate 200 mcg-vilanterol 25 mcg/dose inhalation powder (Breo Ellipta) 1 inh inhalation QDAY #60 ea 01/11/22 [Rx Last Taken Unknown] dexamethasone 4 mg tablet 20 mg PO PRN PRN CHEMO 01/19/22 [History Last Taken Unknown] promethazine 25 mg tablet 25 mg PO Q6H PRN Nausea 01/19/22 [History Last Taken Unknown] Allergy/AdvReac Type Severity Reaction Status Date / Time amoxicillin Allergy Severe hives Verified 01/19/22 05:23 labetalol Allergy Unknown Verified 01/19/22 05:23 pitavastatin [From Livalo] Allergy Other Verified 01/19/22 05:23 simvastatin [From Zocor] Allergy Other Verified 01/19/22 05:23 budesonide [From Symbicort] AdvReac Other Verified 01/19/22 05:23 formoterol [From Symbicort] AdvReac Other Verified 01/19/22 05:23 hydrocodone [From Vicodin] AdvReac Other Verified 01/19/22 05:23 [place]-DEX-BmA Reductase AdvReac Other Verified 01/19/22 05:23 Inhibitor [Lxccqav-Hms-Fbf Reductase Inhibitor] Family History Mother Cancer leukemia Father Respiratory disease Grandfather Myocardial infarction Grandmother Myocardial infarction Son Diabetes Surgical History History of cataract surgery History of colonoscopy History of surgery on right wrist History of tonsillectomy and adenoidectomy Social History Smoking Status: Never smoker alcohol intake: never substance use type: does not use caffeine: Yes Type: coffee Number of servings: 1 what type of physical activity do you participate in: none seatbelt use: always do you feel safe at home: Yes ROS <Dr. Nara Marcum DO - Last Filed: 01/19/22 07:26> ROS ED Constitutional Constitutional ED: Reports other Details: dizziness ; Denies chills or fever(s) ENT ENT ED: Denies rhinorrhea or sore throat Cardiovascular Cardiovascular: Denies chest pain or palpitations Respiratory/Chest Respiratory/Chest: Denies cough or dyspnea Gastrointestinal Gastrointestinal: Reports abdominal pain, diarrhea and nausea; Denies vomiting Genitourinary Genitourinary ED: Denies dysuria or hematuria Musculoskeletal Musculoskeletal: Denies arthralgias Integumentary Denies rash Neurologic Neurologic: Reports headache(s); Denies paresthesias or weakness Psychiatric Psychiatric: Denies anxiety Hematologic/Lymphatic Hematologic/Lymphatic: Reports easy bleeding and easy bruising EXAM <Dr. Nara Marcum DO - Last Filed: 01/19/22 07:26> Physical Exam Const Vital Signs: 01/19/22 05:17 01/19/22 08:05 Temperature 98.3 F Temperature Source Oral Pulse Rate 106 H 94 Respiratory Rate 26 H 31 H Blood Pressure 149/98 H 164/98 H Blood Pressure Mean 115 120 Pulse Ox 94 Oxygen Delivery Method Room Air Positive well nourished and well developed General Appearance ED: well developed and NAD; Negative for pallor HEENT Reports moist mucous membranes Eyes PERRL and EOMs intact bilaterally Neck supple Resp normal respiratory effort and clear to auscultation bilaterally Cardio regular rate and no murmurs Rhythm: abnormal rhythm irregularly irregular GI non-tender and non-distended Auscultation: normoactive bowel sounds Back/Spine no CVA tenderness Extremity full ROM General Extremety ED: Negative for edema or tenderness General Extremity: Negative for edema Neuro moves all extremities and no sensory deficits noted Motor Exam: general weakness Psych mental status grossly normal Skin no wounds General Skin Exam: Negative for jaundice or pallor <Dr. Lisa Casey MD - Last Filed: 01/19/22 09:18> Physical Exam Const Vital Signs: 01/19/22 05:17 01/19/22 08:05 Temperature 98.3 F Temperature Source Oral Pulse Rate 106 H 94 Respiratory Rate 26 H 31 H Blood Pressure 149/98 H 164/98 H Blood Pressure Mean 115 120 Pulse Ox 94 Oxygen Delivery Method Room Air MDM <Dr. Nara Marcum DO - Last Filed: 01/19/22 07:26> [facility] MDM Narrative Medical decision making narrative: Patient is evaluated for epigastric abdominal discomfort as well as nausea. Patient is a complex medical history including ovarian cancer with malignant ascites and just started chemotherapy 2 days ago. She called Dr. Crockett and was describing chest pain so we sent her to the emergency room for further cardiac evaluation. On my evaluation patient points to her subxiphoid area as the area of her pain. Cardiac work-up is performed including EKG which does not show any acute ischemic changes and initial high-sensitivity troponin is 16. Will obtain delta. Other lab work is largely unremarkable with no obvious source of infection. Abdomen is soft and nontender. We will trial a GI cocktail. Results are reviewed with Dr. Crockett who has no further concerns besides a cardiac evaluation. While in the ER patient does intermittently desat to 8990% however she will go back up spontaneously. She does not wear home oxygen. Will obtain a chest x-ray to rule out any large pleural effusion given that she does have a history of ascites. She has paracentesis weekly on Fridays and does not feel that she is fluid overloaded at this time. She is on Xarelto and has not missed any doses so I do not suspect PE as the cause of any of her symptoms today. Chart review does show that patient frequently has low normal O2 saturations between 90 and 92%. Will ambulate on pulse ox as well in the emergency room. Patient will be signed out to oncoming provider pending repeat high-sensitivity troponin results and chest x-ray. If these are normal anticipate discharge home with outpatient follow-up. Lab Data Attestation: I reviewed the patient's lab results. Labs: Laboratory Results - last 24 hr 01/19/22 01/19/22 01/19/22 05:40 05:45 05:45 WBC 9.8 RBC 5.48 H Hgb 14.0 Hct 45.8 MCV 83.6 MCH 25.5 L MCHC 30.6 L RDW Std Deviation 46.1 H RDW Coeff of [place] 15.4 H Plt Count 377 MPV 11.5 Immature Gran % (Auto) 0.500 Neut % (Auto) 90.9 H Lymph % (Auto) 5.2 L [place] % (Auto) 2.5 Eos % (Auto) 0.8 Baso % (Auto) 0.1 Absolute Neuts (auto) 8.9 H Absolute Lymphs (auto) 0.51 L Nucleated RBC % 0 Anisocytosis 1+ Sodium 137 Potassium 4.2 Chloride 100 Carbon Dioxide 26.0 Anion Gap 11 BUN 23 H Creatinine 0.67 Estim Creat Clear Calc 42.62 Est GFR (MDRD) Af Amer 111 Est GFR (MDRD) Non-Af 92 BUN/Creatinine Ratio 34.5 H Glucose 148 H Lactic Acid Calcium 8.9 Total Bilirubin 0.40 Direct Bilirubin 0.15 AST 31 ALT 24 Alkaline Phosphatase 59 Troponin I High Sens 16 Total Protein 6.7 Albumin 3.0 L Globulin 3.7 Lipase 113 Urine Color Yellow Urine Clarity Clear Urine pH 6.0 Ur Specific [place] 1.010 Urine Protein Negative Urine Glucose (UA) Normal Urine Ketones Negative Urine Occult Blood Negative Urine Nitrite Negative Urine Bilirubin Negative Urine Urobilinogen Normal Ur Leukocyte Esterase Negative Urine RBC 0 SEEN Urine WBC 0-5 SEEN Ur Squamous Epith Cells 0 SEEN Urine Bacteria RARE Urine Mucus 0 SEEN 01/19/22 01/19/22 05:57 08:10 WBC RBC Hgb Hct MCV MCH MCHC RDW Std Deviation RDW Coeff of [place] Plt Count MPV Immature Gran % (Auto) Neut % (Auto) Lymph % (Auto) [place] % (Auto) Eos % (Auto) Baso % (Auto) Absolute Neuts (auto) Absolute Lymphs (auto) Nucleated RBC % Anisocytosis Sodium Potassium Chloride Carbon Dioxide Anion Gap BUN Creatinine Estim Creat Clear Calc Est GFR (MDRD) Af Amer Est GFR (MDRD) Non-Af BUN/Creatinine Ratio Glucose Lactic Acid 1.2 Calcium Total Bilirubin Direct Bilirubin AST ALT Alkaline Phosphatase Troponin I High Sens 17 Total Protein Albumin Globulin Lipase Urine Color Urine Clarity Urine pH Ur Specific [place] Urine Protein Urine Glucose (UA) Urine Ketones Urine Occult Blood Urine Nitrite Urine Bilirubin Urine Urobilinogen Ur Leukocyte Esterase Urine RBC Urine WBC Ur Squamous Epith Cells Urine Bacteria Urine Mucus Radiography Diagnostic Testing: Clinical Impression(s) from Imaging Studies Chest X-Ray 01/19/22 07:16 IMPRESSION: Mild degree of CHF. Atelectasis and/or infiltrate in the left lower lobe. Electronically Signed: Omar Reyes MD at 8:20 EDT , Rhythm Strip Rhythm Strip: Sinus Rhythm Rate: 93 Ectopy: PVC(s) EKG Initial EKG: Attestation: I personally reviewed and interpreted this EKG as follows: Interpretation: Sinus Rhythm Comments: Normal sinus rhythm at a rate of 93 with PVCs Normal axis Normal intervals Normal ST segments <Dr. Lisa Casey MD - Last Filed: 01/19/22 09:18> [facility] Lab Data Labs: Laboratory Results - last 24 hr 01/19/22 01/19/22 01/19/22 05:40 05:45 05:45 WBC 9.8 RBC 5.48 H Hgb 14.0 Hct 45.8 MCV 83.6 MCH 25.5 L MCHC 30.6 L RDW Std Deviation 46.1 H RDW Coeff of [place] 15.4 H Plt Count 377 MPV 11.5 Immature Gran % (Auto) 0.500 Neut % (Auto) 90.9 H Lymph % (Auto) 5.2 L [place] % (Auto) 2.5 Eos % (Auto) 0.8 Baso % (Auto) 0.1 Absolute Neuts (auto) 8.9 H Absolute Lymphs (auto) 0.51 L Nucleated RBC % 0 Anisocytosis 1+ Sodium 137 Potassium 4.2 Chloride 100 Carbon Dioxide 26.0 Anion Gap 11 BUN 23 H Creatinine 0.67 Estim Creat Clear Calc 42.62 Est GFR (MDRD) Af Amer 111 Est GFR (MDRD) Non-Af 92 BUN/Creatinine Ratio 34.5 H Glucose 148 H Lactic Acid Calcium 8.9 Total Bilirubin 0.40 Direct Bilirubin 0.15 AST 31 ALT 24 Alkaline Phosphatase 59 Troponin I High Sens 16 Total Protein 6.7 Albumin 3.0 L Globulin 3.7 Lipase 113 Urine Color Yellow Urine Clarity Clear Urine pH 6.0 Ur Specific [place] 1.010 Urine Protein Negative Urine Glucose (UA) Normal Urine Ketones Negative Urine Occult Blood Negative Urine Nitrite Negative Urine Bilirubin Negative Urine Urobilinogen Normal Ur Leukocyte Esterase Negative Urine RBC 0 SEEN Urine WBC 0-5 SEEN Ur Squamous Epith Cells 0 SEEN Urine Bacteria RARE Urine Mucus 0 SEEN 01/19/22 01/19/22 05:57 08:10 WBC RBC Hgb Hct MCV MCH MCHC RDW Std Deviation RDW Coeff of [place] Plt Count MPV Immature Gran % (Auto) Neut % (Auto) Lymph % (Auto) [place] % (Auto) Eos % (Auto) Baso % (Auto) Absolute Neuts (auto) Absolute Lymphs (auto) Nucleated RBC % Anisocytosis Sodium Potassium Chloride Carbon Dioxide Anion Gap BUN Creatinine Estim Creat Clear Calc Est GFR (MDRD) Af Amer Est GFR (MDRD) Non-Af BUN/Creatinine Ratio Glucose Lactic Acid 1.2 Calcium Total Bilirubin Direct Bilirubin AST ALT Alkaline Phosphatase Troponin I High Sens 17 Total Protein Albumin Globulin Lipase Urine Color Urine Clarity Urine pH Ur Specific [place] Urine Protein Urine Glucose (UA) Urine Ketones Urine Occult Blood Urine Nitrite Urine Bilirubin Urine Urobilinogen Ur Leukocyte Esterase Urine RBC Urine WBC Ur Squamous Epith Cells Urine Bacteria Urine Mucus Radiography Diagnostic Testing: Clinical Impression(s) from Imaging Studies Chest X-Ray 01/19/22 07:16 IMPRESSION: Mild degree of CHF. Atelectasis and/or infiltrate in the left lower lobe. Electronically Signed: Omar Reyes MD at 8:20 EDT , Treatment and Re-Evaluation Narrative: Patient signed out to me pending chest x-ray and repeat troponin. Chest x-ray per my interpretation reveals chronic changes with what appears to be atelectasis at the left base. Radiology interpretation is reviewed. Repeat troponin is 17 with first troponin being 16. Test results are discussed with patient and daughter at bedside. She did have some improvement in her pain after GI cocktail. She is currently on pantoprazole and will continue this at home. She was ambulated on room air and did not become hypoxic. Disposition will be discharged home with family. Discharge Plan Triage Chief Complaint: Abd Pain ED Provider: Nara Marcum Dx/Rx/DC Orders Clinical Impression: Abdominal discomfort, epigastric, Nausea Instructions: ED Abdominal Pain Unkn Cause Fem Prescriptions: No Action Ventolin HFA 90 mcg/actuation HFA aerosol inhaler 2 puff INHALATION Q4H PRN (Reason: shortness of breath or wheezing) Qty: 18 6RF (DME) compress.stocking,knee,reg,lrg Misc See Rx Instructions .ROUTE .MEDSUPPLY Qty: 2 1RF Rx Instructions: wear daily for venous insufficiency 20-30 mmHg multivitamin tablet,chewable 1 tab PO DAILY ezetimibe [Zetia] 10 mg tablet 10 mg PO QDAY Qty: 90 3RF pantoprazole 40 mg tablet,delayed release (DR/EC) 40 mg PO BID 90 Days Qty: 180 2RF promethazine 25 mg Tablet 25 mg PO Q6H PRN (Reason: Nausea) dexamethasone 4 mg Tablet 20 mg PO PRN PRN (Reason: CHEMO) magnesium oxide 400 mg magnesium capsule 400 mg PO DAILY Qty: 90 3RF (DME) lancing device Misc See Rx Instructions .ROUTE .MEDSUPPLY Qty: 1 0RF Rx Instructions: As directed duloxetine 60 mg capsule,delayed release(DR/EC) 60 mg PO QDAY Qty: 90 3RF potassium chloride [Klor-Con M20] 20 mEq tablet,ER particles/crystals 20 meq PO BID Qty: 180 3RF cholecalciferol (vitamin D3) 1,250 mcg (50,000 unit) tablet 50,000 unit PO QWEEK Qty: 20 3RF rivaroxaban 20 mg tablet 20 mg PO DAILY Qty: 90 3RF Label Comments: Blood thinner hydrochlorothiazide 25 mg tablet 25 mg PO DAILY Qty: 90 3RF sotalol 120 mg tablet 120 mg PO BID Qty: 180 1RF lisinopril 40 mg tablet 40 mg PO DAILY Qty: 90 3RF fenofibrate micronized 67 mg capsule 67 mg PO QPM Qty: 90 3RF amlodipine 5 mg tablet 7.5 mg PO DAILY Qty: 135 3RF buspirone 15 mg tablet 15 mg PO TID 90 Days Qty: 270 2RF metformin 500 mg tablet 500 mg PO BID Qty: 180 3RF lorazepam 0.5 mg tablet 0.5 mg PO BID PRN (Reason: anxiety) Qty: 20 0RF fluticasone furoate-vilanterol [Breo Ellipta] 200-25 mcg/dose blister with device 1 inh inhalation QDAY Qty: 60 6RF Rx Instructions: after inhalation, rinse mouth with water and spit out; do not swallow Primary Care Provider: Quique Mims Referrals: Quique Mims MD [Primary Care Provider] - Disposition Disposition: Home, Self Care
[2022-01-19 05:52] LABS: Mucous, Urine 0 SEEN /hpf (<or=2+); Red Blood Cells-Urine 0 SEEN /hpf (0-5); Squamous Epithelial Cells - UA 0 SEEN /hpf (5-10)
[2022-01-19 05:54] LABS: Color, Urine Yellow (Yellow); Glucose, Dipstick Normal (Normal); Ketone-Dipstick Negative (Negative); Leukocyte Esterase-Dipstick Negative /ul (Negative); Nitrite-Dipstick Negative (Negative); Occult Blood-Urine Negative /ul (Negative); Protein-Dipstick Negative (Negative); Urine Bilirubin Dipstick Negative (Negative); Urine Clarity Clear (Clear); Urine Urobilinogen Normal (Normal)
[2022-01-19 05:54] LABS: Absolute Lymphocyte Count 0.51 X10^3/uL (0.83-4.51); Absolute Neutrophil Count 8.9 X10^3/uL (2.0-7.7); Basophil# 0.01 X10^3/uL; Basophil% 0.1 % (0-1); Eosinophil# 0.08 X10^3/uL; Eosinophils% 0.8 % (0-5); Hematocrit 45.8 % (37-47); Lymphocyte # 0.51 X10^3/ul (0.83-4.51); Lymphocyte % 5.2 % (19-41); Mean Corp Hgb Conc 30.6 g/dL (32-36); Mean Corpuscular Hgb 25.5 pg (27.0-32.0); Mean Corpuscular Volume 83.6 fL (81-99); Mean Platelet Vol. 11.5 fl (6.2-12.0); Monocyte# 0.24 X10^3/uL; Monocyte% 2.5 % (0-10); NRBC Flagged by Analyzer 0 % (0-5); Neutrophil # 8.88 X10^3/uL (2.7-7.7); Neutrophil % 90.9 % (47-70); POSITIVE DIFFERENTIAL YES; Platelet Count 377 K/mm3 (150-450); RBC Distribution Width CV 15.4 % (11.6-14.6); RBC Distribution Width SD 46.1 fl (35.1-43.9); Red Blood Count 5.48 M/mm3 (4.2-5.4); White Blood Count 9.8 K/mm3 (4.4-11.0)
[2022-01-19] MEDS: Ondansetron 4 MG/2 ML Vial IV (05:57)
[2022-01-19] MEDS: 0.9% Normal Saline 1,000 ML 125 ML IV (06:00)
[2022-01-19 06:10] LABS: Differential Indicated SCAN CRITERIA MET
[2022-01-19 06:12] LABS: Bacteria RARE /hpf (None Seen); White Blood Cells 0-5 SEEN /hpf (0-5)
[2022-01-19 06:14] LABS: AST(SGOT) 31 U/L (15-37); Alanine Aminotransfer ALT/SGPT 24 U/L (13-56); Alkaline Phosphatase 59 U/L (45-117); Anion Gap 11 (5-15); BUN 23 mg/dL (7-18); BUN/Creat Ratio 34.5 RATIO (10-20); Bilirubin, Direct 0.15 mg/dL (0.00-0.30); Calcium,Total 8.9 mg/dL (8.5-10.1); Chloride 100 mmol/L (98-107); Creatinine, Serum 0.67 mg/dL (0.55-1.02); EST Glomerular Filtration Rate 92 mL/min (>60); Est Glom Filt Rate - Afr Amer 111 mL/min (>60); Estimated Creatinine Clearance 42.62 ml/min; Globulin 3.7 g/dL (2.2-4.2); Glucose 148 mg/dL (74-106); Lipase 113 U/L (73-393); Potassium 4.2 mmol/L (3.5-5.1); Protein, Total 6.7 g/dL (6.4-8.2); Sodium Level 137 mmol/L (136-145); Troponin-I HS 16 pg/mL (3.0-54.0)
[2022-01-19 06:17] LABS: Anisocytosis 1+
[2022-01-19 06:53] LABS: Lactic Acid 1.2 mmol/L (0.4-1.9)
--- NOTE | 2022-01-19 07:16 | RAD_ITS ---
STUDY: X-RAY CHEST REASON FOR EXAM: Female, 76 years old. Chest pain TECHNIQUE: AP and lateral views of the chest. COMPARISON: Comparison is made with prior study dated 01/16/2021. FINDINGS: EKG electrodes are seen. There is evidence of vascular congestion and mild CHF. Findings suggestive of atelectasis and/or infiltrate in the left lower lobe. Blunting of both costophrenic angles. Normal size heart. Normal mediastinum and ricardo. Normal visualized pulmonary arteries. Normal visualized aortic arch and descending thoracic aorta. There are diffuse degenerative changes of the visualized thoracic spine. There is degenerative osteoarthritis of the bilateral shoulders. There is no demonstrated abnormality of the visualized soft tissue structures of the upper abdomen. RAD/Chest PA and Lateral IMPRESSION: Mild degree of CHF. Atelectasis and/or infiltrate in the left lower lobe. Electronically Signed: Omar Reyes MD at 8:20 EDT ,
[2022-01-19] MEDS: Mag Hydrox/Al Hydrox/Simeth 30 ML UDC PO (07:51)
[2022-01-19 08:05] VITALS: BP 164/98; PULSE 94; RESP 31
[2022-01-19 08:32] LABS: Troponin-I HS 17 pg/mL (3.0-54.0)
[2022-01-19 08:42] VITALS: O2SAT 89
[2022-01-19 09:32] VITALS: BP 166/95; PULSE 90; RESP 19; O2SAT 92
== END 2022-01-19 09:38 | disposition home or self-care (01) ==
PROVIDERS: Emergency Provider Emergency Medicine; PCP Internal Medicine; Visit Provider Emergency Medicine
DX: R10.13 Epigastric pain (principal); C56.9 Malignant neoplasm of unspecified ovary; J44.9 Chronic obstructive pulmonary disease, unspecified; I11.0 Hypertensive heart disease with heart failure; I50.9 Heart failure, unspecified; I48.0 Paroxysmal atrial fibrillation; E11.9 Type 2 diabetes mellitus without complications; R11.0 Nausea; I25.10 Atherosclerotic heart disease of native coronary artery without angina pectoris; R18.0 Malignant ascites; G47.33 Obstructive sleep apnea (adult) (pediatric); I25.2 Old myocardial infarction; E55.9 Vitamin D deficiency, unspecified; F41.9 Anxiety disorder, unspecified; Z79.899 Other long term (current) drug therapy; Z79.01 Long term (current) use of anticoagulants; Z79.84 Long term (current) use of oral hypoglycemic drugs
CPT/HCPCS: 71046; 80048; 80076; 81001; 83605; 83690; 84484; 85025; 93005; 96374; 99284; J2405

== ENCOUNTER → 2022-01-21 | Outpatient (CLI) | payer MEDICARE, OTHER, SELFPAY ==
--- NOTE | 2022-01-21 08:05 | US_ITS ---
STUDY: ABDOMINAL ULTRASOUND - RIGHT UPPER QUADRANT REASON FOR VISIT: Female, 76 years old ASCITES TECHNIQUE: Ultrasound evaluation of the right upper quadrant was performed with real-time and static charles-scale imaging. TECHNICAL QUALITY: Adequate. COMPARISON: None. FINDINGS: The 4 quadrants were examined for ascites. A small amount of fluid is seen in the right and left lower quadrants. Not enough fluid for safe paracentesis. US/Abdomen Limited IMPRESSION: Not enough fluid for a safe paracentesis. Electronically Signed: Omar Reyes MD at 12:15 EDT ,
== END | disposition home or self-care (01) ==
PROVIDERS: PCP Internal Medicine; Referring Provider Nurse Practitioner Adult Health; Visit Provider Nurse Practitioner Adult Health
DX: R18.8 Other ascites (principal)
CPT/HCPCS: 76705; A4216

== ENCOUNTER → 2022-01-26 | Outpatient (CLI) | payer MEDICARE, OTHER, SELFPAY ==
[2022-01-26 16:51] LABS: Vitamin D,25 Hydroxy 57.6 ng/mL
[2022-01-26 16:53] LABS: Hemoglobin A1c 6.7 % (3.8-5.6)
== END | disposition home or self-care (01) ==
LOC: BIMLAB 15:05
PROVIDERS: PCP Internal Medicine; Referring Provider Internal Medicine; Visit Provider Internal Medicine
DX: E11.9 Type 2 diabetes mellitus without complications (principal); M81.0 Age-related osteoporosis without current pathological fracture; Z79.899 Other long term (current) drug therapy
CPT/HCPCS: 36415; 82306; 83036

== ENCOUNTER → 2022-01-31 | Outpatient (CLI) | payer MEDICARE, OTHER, SELFPAY ==
--- NOTE | 2022-01-31 09:05 | US_ITS ---
STUDY: ABDOMINAL ULTRASOUND - RIGHT UPPER QUADRANT REASON FOR VISIT: Female, 76 years old ASCITES survey only TECHNIQUE: Ultrasound evaluation of the 4 quadrants was performed with real-time and static charles-scale imaging. TECHNICAL QUALITY: Adequate. COMPARISON: None. FINDINGS: Assessment for ascites and paracentesis. Small amount of free fluid is seen in the right upper quadrant. Not enough fluid for safe paracentesis. US/Abdomen Limited IMPRESSION: Not enough fluid for a safe paracentesis. Electronically Signed: Omar Reyes MD at 15:43 EDT ,
== END | disposition home or self-care (01) ==
PROVIDERS: PCP Internal Medicine; Visit Provider Nurse Practitioner Adult Health
DX: R18.8 Other ascites (principal)
CPT/HCPCS: 76705

== ENCOUNTER → 2022-02-08 | Outpatient (CLI) | payer MEDICARE, OTHER, SELFPAY | END | disposition home or self-care (01) | LOC: PSN 10:44 | PROVIDERS: PCP Internal Medicine; Referring Provider Internal Medicine Cardiovascular Disease; Visit Provider Internal Medicine Cardiovascular Disease | DX: R00.2 Palpitations (principal); Z91.89 Other specified personal risk factors, not elsewhere classified | CPT/HCPCS: 93225; 93226 ==

== ENCOUNTER → 2022-02-11 | Outpatient (CLI) | payer MEDICARE, OTHER, SELFPAY ==
--- NOTE | 2022-02-11 08:07 | US_ITS ---
STUDY: ABDOMINAL ULTRASOUND - 4 quadrants for ascites assessment. REASON FOR VISIT: Female, 76 years old ASCITES TECHNIQUE: Ultrasound evaluation of the 4 quadrants was performed with real-time and static charles-scale imaging. TECHNICAL QUALITY: Adequate. COMPARISON: Comparison is made with prior examination dated 01/31/2022. FINDINGS: Not enough ascites for safe paracentesis. US/Abdomen Limited IMPRESSION: Not enough ascites for a safe paracentesis. Electronically Signed: Omar Reyes MD at 10:48 EDT ,
== END | disposition home or self-care (01) ==
PROVIDERS: PCP Internal Medicine; Referring Provider Nurse Practitioner Adult Health; Visit Provider Nurse Practitioner Adult Health
DX: R18.8 Other ascites (principal)
CPT/HCPCS: 76705

== ENCOUNTER → 2022-03-02 | Outpatient (CLI) | payer MEDICARE, OTHER, SELFPAY ==
--- NOTE | 2022-03-02 08:32 | US_ITS ---
STUDY: ABDOMINAL ULTRASOUND - 4 quadrants. REASON FOR VISIT: Female, 76 years old PELVIC MASS -- ascites TECHNIQUE: Ultrasound evaluation of the right upper quadrant was performed with real-time and static charles-scale imaging. TECHNICAL QUALITY: Adequate. COMPARISON: Comparison is made with prior examination dated 02/11/2022. FINDINGS: Imaging of the 4 quadrants was obtained. Minimal perihepatic fluid as well as tiny amount of fluid in the lower pelvis. Not enough fluid for a safe paracentesis. US/Abdomen Limited IMPRESSION: Not enough ascitic fluid for safe paracentesis. Electronically Signed: Omar Reyes MD at 12:17 EDT ,
== END | disposition home or self-care (01) ==
PROVIDERS: PCP Internal Medicine; Referring Provider Nurse Practitioner Adult Health; Visit Provider Nurse Practitioner Adult Health
DX: R18.8 Other ascites (principal)
CPT/HCPCS: 76705; A4216

== ENCOUNTER → 2022-04-20 | Outpatient (CLI) | payer MEDICARE, OTHER, MEDICAID, SELFPAY ==
--- NOTE | 2022-04-20 09:51 | ECHODONC_ITS ---
Reason For Study: PRE OP Procedure This was a 2D Doppler, Color Flow transthoracic echocardiogram. Myocardial strain analysis was performed in this exam to aid in the assessment of cardiac function. Bubble study declined by patient. Exam performed in department. Left Ventricle Normal LV size. Left ventricular systolic function is normal. The estimated ejection fraction is 70 %. Stage 3 diastolic dysfunction. No regional wall motion abnormalities noted. Right Ventricle Normal RV size. Normal systolic function. Atria The left atrium is severely enlarged. Normal right atrium. Based upon the 2D echocardiographic/color-flow Doppler information obtained a small ASD with [id number] interatrial shunt cannot necessarily be excluded. (Of note: The patient declined further evaluation with an agitated saline contrast study). Mitral Valve There is moderate to severe mitral annular calcification. Extension of the mitral annular calcification onto the base of the posterior mitral valve leaflet. Anterior leaflet diffuse mitral valve thickening. Moderate (2+) eccentric mitral valve insufficiency. Tricuspid Valve Normal tricuspid valve. Moderate (2+) tricuspid valve insufficiency. Right ventricular systolic pressure estimated to be 52 mmHg. Aortic Valve Trisinus/trileaflet aortic valve. Mild focal aortic valve calcification. Aortic sclerosis, no stenosis. Pulmonic Valve The pulmonic valve is not well visualized. Mild (1+) pulmonic valve insufficiency. Great Vessels Normal sized aortic root. Pericardium/Pleural No pericardial effusion. MMode/2D Measurements & Calculations LVIDd: 5.2 cm IVSd: 1.0 cm Ao root diam: 2.9 cm LVIDs: 2.7 cm LVPWd: 1.1 cm RVDd: 3.8 cm FS: 47.8 % LAV(MOD-sp4): 142.0 ml LVAd ap4: 23.3 cm2 SV(MOD-sp4): 39.3 ml LVLd ap4: 6.7 cm EDV(MOD-sp4): 64.6 ml EDV(sp4-el): 68.9 ml LVAs ap4: 12.9 cm2 LVLs ap4: 5.9 cm ESV(MOD-sp4): 25.3 ml ESV(sp4-el): 23.6 ml EF(MOD-sp4): 60.9 % EF(sp4-el): 65.7 % SV(sp4-el): 45.3 ml LA A4 area: 34.8 cm2 LA dimension(2D): 4.9 cm RA A4 area: 15.6 cm2 Time Measurements MV dec time: 0.13 sec Doppler Measurements & Calculations MV E max nick: 142.3 cm/sec Lat Peak E' Nick: 9.0 cm/sec Med Peak E' Nick: 6.6 cm/sec MV A max nick: 31.3 cm/sec E/E' lat: 15.8 E/E' med: 21.7 MV E/A: 4.6 MV V2 max: 146.3 cm/sec Ao V2 max: 185.3 cm/sec MV max P.6 mmHg MV dec slope: 1111 cm/sec2 Ao max P.7 mmHg MV V2 mean: 61.9 cm/sec Ao V2 mean: 125.1 cm/sec MV mean P.2 mmHg Ao mean P.3 mmHg MV V2 VTI: 33.1 cm Ao V2 VTI: 42.3 cm LV V1 max: 93.3 cm/sec PA V2 max: 82.5 cm/sec TR max nick: 351.4 cm/sec LV V1 max P.5 mmHg PA V2 mean: 52.1 cm/sec TR max P.4 mmHg LV V1 mean P.1 mmHg LV V1 mean: 68.5 cm/sec LV V1 VTI: 23.3 cm ECHO/ONC Echo Complete Interpretation Summary Left ventricular systolic function is normal. The estimated ejection fraction is 70 %. The left atrium is severely enlarged. There is moderate to severe mitral annular calcification. Extension of the mitral annular calcification onto the base of the posterior mi tral valve leaflet. Anterior leaflet diffuse mitral valve thickening. Moderate (2+) eccentric mitral valve insufficiency. Moderate (2+) tricuspid valve insufficiency. Aortic sclerosis, no stenosis. Mild (1+) pulmonic valve insufficiency. Right ventricular systolic pressure estimated to be 52 mmHg. Stage 3 diastolic dysfunction. Based upon the 2D echocardiographic/color-flow Doppler information obtained a s mall ASD with right- to-left interatrial shunt cannot necessarily be excluded. (Of note: The patient declined further evaluation with an agitated saline contrast study). Ordering Physician: Leon Joy Referring Physician: Leon Joy Performed By: Priyanka Stanford RCS
== END | disposition home or self-care (01) ==
LOC: CVS 09:50
PROVIDERS: PCP Internal Medicine; Referring Provider Nurse Practitioner Family; Visit Provider Nurse Practitioner Family
DX: Z01.810 Encounter for preprocedural cardiovascular examination (principal); I48.0 Paroxysmal atrial fibrillation; I25.10 Atherosclerotic heart disease of native coronary artery without angina pectoris; I10 Essential (primary) hypertension; E78.00 Pure hypercholesterolemia, unspecified
CPT/HCPCS: 93306; 93356

== ENCOUNTER 2022-05-04 16:48 | Inpatient (IN) | payer MEDICARE, OTHER, MEDICAID, SELFPAY ==
[2022-05-04 16:58] VITALS: BP 137/57; PULSE 76; RESP 18; TEMP 36.6; O2SAT 100
[2022-05-04] MEDS: Sotalol Hydrochloride 80 MG Tablet 120 MG PO (20:05)
[2022-05-04] MEDS: DULoxetine Hcl 60 MG Capsule PO (20:05)
[2022-05-04] MEDS: Potassium Chloride Oral Tablet 20 MEQ PO (20:05)
[2022-05-04] MEDS: metFORMIN HCl 500 MG Tablet PO (20:06)
[2022-05-04] MEDS: Pantoprazole Sodium 40 MG Tablet PO (20:07)
[2022-05-04] MEDS: Fenofibrate 48 MG Tablet PO (20:08)
--- NOTE | 2022-05-04 20:08 | HP.PCM_ITS ---
[facility] General General Date of Admission: 05/04/22 Date of Service: 05/04/22 Chief Complaint: Here for rehab. [facility] Narrative ANDREW VELAZQUEZ, is a 76 Female who presents with metastatic ovarian cancer. Patient undergoes [address] Ochoa. 04/20/2022 Echo LVSF normal, EF 70%, LA severely enlarged. Moderate mitral valve insufficiency. Moderate tricusopid valve insufficiency. RVSP 52mm HG. Stage 3 diastolic dysfunction. 04/27/2022 Admit to [facility]. 04/27/2022 [facility] performs exploratory laparotomy, CHENTE, BSO. Tumor debulking, omentectomy with en bloc resection of portion of transverse colon, Side to side functional end to end anastomosis of transverse colon, Cystoscopy. 05/01/2022 Transfuse 1 unit PRBC. 05/02/2022 GI consulted for lower GI bleed, Xarelto on hold, Lovenox ordered for DVT prophylaxis. 05/04/2022 Admit to TCU with debility, here for rehabilitation, strengthening, prior to discharge home with . [facility] Medical History (Updated 05/04/22 @ 20:[address] Gaetano Mcmullen MD) Abdominal pain Acute exacerbation of chronic obstructive pulmonary disease (COPD) Acute respiratory failure with hypoxia and hypercarbia Anxiety Ascites Atherosclerotic heart disease of [place] coronary artery without angina pectoris Atrial fibrillation with RVR CAD (coronary artery disease) CAD (coronary artery disease) COPD (chronic obstructive pulmonary disease) Debility Diarrhea Diastolic congestive heart failure DM2 (diabetes mellitus, type 2) Essential hypertension Flu vaccine need Hiatal hernia HLD (hyperlipidemia) HTN (hypertension) Hypokalemia Junctional rhythm Long-term use of high-risk medication Morbid obesity NSTEMI (non-ST elevated myocardial infarction) SEVEN (obstructive sleep apnea) Ovarian cancer PAF (paroxysmal atrial fibrillation) Panic disorder Paroxysmal atrial fibrillation with rapid ventricular response Pelvic mass Port-A-Cath in place Pulmonary HTN Sepsis SOB (shortness of breath) Spastic colon Streptococcal pneumonia Vitamin D deficiency Home Medications compress.stocking,knee,reg,lrg #2 ea 05/06/19 [Rx Last Taken Unknown] magnesium oxide 400 mg PO DAILY #90 caps 07/01/19 [Rx Last Taken Unknown] multivitamin 1 tab PO DAILY supplement 02/03/20 [History Last Taken Unknown] lancing device #1 ea 12/29/20 [Rx Last Taken Unknown] lorazepam 0.5 mg tablet 0.5 mg PO BID PRN anxiety #20 tabs 01/03/22 [Rx Last Taken Unknown] dexamethasone 4 mg tablet 20 mg PO PRN PRN CHEMO 01/19/22 [History Last Taken Unknown] promethazine 25 mg tablet 25 mg PO Q6H PRN Nausea 01/19/22 [History Last Taken Unknown] carboplatin 10 mg/mL intravenous solution continuous IV infusion NA 01/26/22 [History Last Taken Unknown] metformin 500 mg tablet 500 mg PO BID blood sugars 02/11/22 [History Last Taken Unknown] alendronate 70 mg tablet 70 mg PO QMONTH bones 04/08/22 [History Last Taken Unknown] diphenhydramine HCl 25 mg capsule (Benadryl) 25 mg PO Q6H PRN Itching 04/08/22 [History Last Taken Unknown] lidocaine-prilocaine 2.5 %-2.5 % topical cream 1 applic topical 04/08/22 [History Last Taken Unknown] loperamide 2 mg capsule 2 mg PO Q6H PRN bowels 04/08/22 [History Last Taken Unknown] magnesium oxide 400 mg PO DAILY supplement 04/08/22 [History Last Taken Unknown] acetaminophen 650 mg tablet 650 mg PO Q6H PRN Pain 05/04/22 [History Last Taken Unknown] albuterol sulfate 90 mcg/actuation aerosol inhaler (Ventolin HFA) 2 puff inhalation Q4H PRN shortness of breath or wheezing 05/04/22 [History Last Taken Unknown] amlodipine 5 mg tablet 7.5 mg PO DAILY BP 05/04/22 [History Last Taken Unknown] buspirone 15 mg tablet 15 mg PO TID depression 05/04/22 [History Last Taken Unknown] cholecalciferol (vitamin D3) 1,250 mcg (50,000 unit) tablet 50,000 unit PO QWEEK supplement 05/04/22 [History Last Taken Unknown] docusate sodium 100 mg capsule (Colace) 100 mg PO BID bowels 05/04/22 [History Last Taken Unknown] duloxetine 60 mg capsule,delayed release 60 mg PO QDAY depression 05/04/22 [History Last Taken Unknown] enoxaparin 40 mg/0.4 mL subcutaneous syringe (Lovenox) 40 mg subcut DAILY blood thinner 05/04/22 [History Last Taken Unknown] ezetimibe 10 mg tablet (Zetia) 10 mg PO QDAY cholesterol 05/04/22 [History Last Taken Unknown] fenofibrate micronized 67 mg capsule 67 mg PO QPM fiber 05/04/22 [History Last Taken Unknown] fluticasone furoate 200 mcg-vilanterol 25 mcg/dose inhalation powder (Breo Ellipta) 1 inh inhalation QDAY breathing 05/04/22 [History Last Taken Unknown] furosemide 40 mg tablet (Lasix) 40 mg PO DAILY fluid pill 05/04/22 [History Last Taken Unknown] ibuprofen 600 mg tablet 600 mg PO Q6H PRN Pain 05/04/22 [History Last Taken Unknown] lisinopril 40 mg tablet 40 mg PO DAILY BP 05/04/22 [History Last Taken Unknown] pantoprazole 40 mg tablet,delayed release 40 mg PO BID gastic reflux 05/04/22 [History Last Taken Unknown] polyethylene glycol 3350 17 gram oral powder packet (Miralax) 17 g PO DAILY constipation 05/04/22 [History Last Taken Unknown] potassium chloride 20 mEq tablet,extended release(part/cryst) (Klor-Con M) 20 meq PO BID supplement 05/04/22 [History Last Taken Unknown] rivaroxaban 20 mg tablet 20 mg PO DAILY blood thinner 05/04/22 [History Last Taken Unknown] sotalol 120 mg tablet 120 mg PO BID BP 05/04/22 [History Last Taken Unknown] Allergy/AdvReac Type Severity Reaction Status Date / Time amoxicillin Allergy Severe hives Verified 04/08/22 10:50 chlorhexidine Allergy Unknown red skin Verified 04/08/22 10:50 morphine Allergy Unknown headaches Verified 04/08/22 10:50 labetalol Allergy Unknown Verified 04/08/22 10:50 pitavastatin [From Livalo] Allergy Other Verified 04/08/22 10:50 simvastatin [From Zocor] Allergy Other Verified 04/08/22 10:50 atorvastatin [From Lipitor] AdvReac Unknown myalgias Verified 04/08/22 10:50 budesonide [From Symbicort] AdvReac Other Verified 04/08/22 10:50 formoterol [From Symbicort] AdvReac Other Verified 04/08/22 10:50 hydrocodone [From Vicodin] AdvReac Other Verified 04/08/22 10:50 [id number] Reductase AdvReac Other Verified 04/08/22 10:50 Inhibitor [Wjkqaif-Unl-Cwo Reductase Inhibitor] Family History Mother Cancer leukemia Father Respiratory disease Grandfather Myocardial infarction Grandmother Myocardial infarction Son Diabetes Surgical History (Updated 05/04/22 @ 20:[address] Gaetano Mcmullen MD) History of cataract surgery History of colonoscopy History of exploratory laparotomy History of surgery on right wrist History of tonsillectomy and adenoidectomy Social History (Updated 05/04/22 @ 20:[address] Gaetano Mcmullen MD) household members: spouse Smoking Status: Never smoker alcohol intake: never substance use type: does not use caffeine: Yes Type: coffee Number of servings: 1 what type of physical activity do you participate in: none seatbelt use: always do you feel safe at home: Yes ROS Constitutional Constitutional: Denies chills, fever(s) or weight gain ENT HEENT: Denies headache(s), nasal congestion or nasal discharge Cardiovascular Cardiovascular: Denies chest pain or palpitations Respiratory/Chest Respiratory/Chest: Denies cough, excessive phlegm production or shortness of breath with exertion Gastrointestinal Gastrointestinal: Denies abdominal pain, nausea or vomiting Genitourinary Genitourinary: Denies dysuria Musculoskeletal Musculoskeletal: Denies joint pain or joint swelling Integumentary Integumentary: Denies rash or wounds Neurologic Neurologic: Denies focal weakness, numbness or tingling Psychiatric Psychiatric: Denies anxiety, auditory hallucinations, depression, homicidal ideation or suicidal ideation Vital Signs Vital Signs Vital Signs: 05/04/22 16:58 05/04/22 16:58 Temperature 97.8 F Temperature Source Temporal Pulse Rate 76 Pulse Rhythm Irregular Pulse Strength Normal (2+) Respiratory Rate 18 Respiratory Effort Normal Non-Labored Respiratory Depth Normal Respiratory Pattern Normal Blood Pressure 137/57 H Blood Pressure Mean 83 Blood Pressure Source Monitor Pulse Ox 100 Oxygen Delivery Method Room Air Room Air Physical Exam Const alert General Appearance: cooperative HEENT normocephalic Eyes PERRL and EOMs intact bilaterally Neck supple, no JVD and no carotid bruits Resp normal respiratory effort, normal air movement and clear to auscultation bilaterally Cardio regular rate and regular rhythm GI normal to inspection, nondistended, normoactive bowel sounds, non-tender and non-distended Extremity normal capillary refill General Extremity: Negative for edema Skin no rashes or lesions noted General Skin Exam: no breakdown Psych affect normal Appearance: appropriate Assessment & Plan Assessment/Plan (1) Debility: (2) Primary cancer of ovary with widespread metastatic disease: (3) Malignant ascites: (4) Lower gastrointestinal bleeding: (5) Vitamin D deficiency: (6) GERD (gastroesophageal reflux disease): (7) Hypertension: (8) Hyperlipidemia: (9) Anxiety: (10) Nausea: (11) Depression: (12) Hypokalemia: (13) Diabetes mellitus: (14) Atrial fibrillation: (15) Chronic obstructive pulmonary disease: (16) Obstructive sleep apnea: PLAN: Plan 76 year old female with below past medical history significant for stage 4a ovarian cancer, underwent CHENTE, BSO, debulking surgery 04/27/2022 at [facility], postoperative course complicated by lower gastrointestinal bleeding, admitted to TCU with debility, here for rehabilitation, strengthening, prior to discharge home with . * Debility - PT/OT. * Pain - Tylenol 1000mg q6 prn pain (1-5), Motrin 600mg q6h prn pain (6-10). * Bowel - Miralax 17gm daily, Colace 100mg bid, MOM 30ml daily prn. * Adult immunization - Administer pneumonia vaccine, covid19 vaccine, flu vaccine as appropriate. * DVT prophylaxis - Lovenox 40mg sc daily. * COPD - Fluticasone/salmeterol 1 puff q12, Albuterol MDI 2 puff q4h prn. * Hypertension - Sotalol 120mg bid, Amlodipine 7.5mg daily. 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 * Vitamin D deficiency - D2 1.25mg qweek. * Hyperlipidemia - Zetia 10mg daily, Fenofibrate 48mg qhs. * Chronic diastolic congestive heart failure - Sotalol 120mg bid, Lisinopril 40mg daily, Furosemide 40mg daily. * Hypomagnesemia - Magnesium chloride 128mg daily. * Diabetes Mellitus II - Metformin 500mg bid. * GERD - Pantoprazole 40mg bid. * Hypokalemia KCL 20meq bidcm. * Atrial fibrillation - Sotalol 120mg bid, Xarelto on hold due to lower GI bleed.
[2022-05-04 20:16] VITALS: BMI 34.3
[2022-05-05 05:42] LABS: Absolute Lymphocyte Count 1.37 X10^3/uL (0.83-4.51); Absolute Neutrophil Count 3.8 X10^3/uL (2.0-7.7); Basophil# 0.01 X10^3/uL; Basophil% 0.2 % (0-1); Eosinophil# 0.18 X10^3/uL; Eosinophils% 2.9 % (0-5); Hematocrit 28.4 % (37-47); Hemoglobin 9.3 g/dL (12.0-15.0); Lymphocyte # 1.37 X10^3/ul (0.83-4.51); Lymphocyte % 22.4 % (19-41); Mean Corp Hgb Conc 32.7 g/dL (32-36); Mean Corpuscular Hgb 31.1 pg (27.0-32.0); Mean Platelet Vol. 10.3 fl (6.2-12.0); Monocyte# 0.69 X10^3/uL; Monocyte% 11.3 % (0-10); NRBC Flagged by Analyzer 0 % (0-5); Neutrophil # 3.82 X10^3/uL (2.7-7.7); Neutrophil % 62.4 % (47-70); Platelet Count 288 K/mm3 (150-450); RBC Distribution Width CV 16.9 % (11.6-14.6); RBC Distribution Width SD 57.1 fl (35.1-43.9); Red Blood Count 2.99 M/mm3 (4.2-5.4); White Blood Count 6.1 K/mm3 (4.4-11.0)
[2022-05-05 06:20] LABS: Anion Gap 6 (5-15); BUN 14 mg/dL (7-18); BUN/Creat Ratio 20.6 RATIO (10-20); Calcium,Total 8.5 mg/dL (8.5-10.1); Chloride 103 mmol/L (98-107); Creatinine, Serum 0.68 mg/dL (0.55-1.02); EST Glomerular Filtration Rate 90 mL/min (>60); Est Glom Filt Rate - Afr Amer 108 mL/min (>60); Estimated Creatinine Clearance 42.62 ml/min; Glucose 103 mg/dL (74-106); Potassium 3.6 mmol/L (3.5-5.1); Sodium Level 140 mmol/L (136-145)
[2022-05-05 06:30] LABS: Bedside Glucose 129 mg/dL (74-106)
[2022-05-05] MEDS: Sotalol Hydrochloride 80 MG Tablet 120 MG PO ×2 (07:01→18:22)
[2022-05-05] MEDS: Magnesium Chloride 64 MG Delay Rel.Tablet 128 MG PO (07:03)
[2022-05-05] MEDS: Enoxaparin 40 MG/0.4 ML Syringe SC (07:03)
[2022-05-05] MEDS: Furosemide 40 MG Tablet PO (07:03)
[2022-05-05] MEDS: Lisinopril 40 MG Tablet PO (07:04)
[2022-05-05] MEDS: Pantoprazole Sodium 40 MG Tablet PO ×2 (07:04→18:23)
[2022-05-05] MEDS: amLODIPine 5 MG Tablet 7.5 MG PO (07:04)
[2022-05-05] MEDS: Ezetimibe 10 MG Tablet PO (07:04)
[2022-05-05] MEDS: Fluticasone/Salmeterol 232-14 Inhaler 1 PUFF INHALATION (07:05)
[2022-05-05] MEDS: Potassium Chloride Oral Tablet 20 MEQ PO ×2 (07:53→18:22)
[2022-05-05] MEDS: metFORMIN HCl 500 MG Tablet PO ×2 (07:53→18:22)
[2022-05-05] MEDS: Acetaminophen 500 MG Tablet 1000 MG PO (11:53)
[2022-05-05] MEDS: Tuberculin,Purif.prot.deriv. 50 TU/ML Vial 0.1 ML ID (11:54)
[2022-05-05 13:47] VITALS: BP 111/53; PULSE 84; RESP 16; TEMP 35.9; O2SAT 96
--- NOTE | 2022-05-05 14:22 | NURSING ---
Html Web Developer Note; Activity Asst: Complete
--- NOTE | 2022-05-05 15:42 | CHAPLAIN ---
Type of Pastoral Visit _x__ Initial Visit ___ Follow-up Visit ___ On-call Visit ___ General Patient Visit ___ Spiritual Assessment ___ Family Conference ___ Bereavement ___ Rapid Response ___ Code Blue ___ Other (describe below) Pastoral Care Referral From _x__ Patient ___ Family ___ Nurse ___ Physician ___ Knifeman ___ Psychiatry Instructor ___ Other (describe below) Sacrament/Intervention _x__ Active listening ___ Anointing ___ Adventism ___ Bereavement ___ Communion _x__ Gisselle exploration ___ _x__ Life review _x__ Prayer ___ Reconciliation ___ Sacrament of Sick ___ Supportive presence ___ Wedding ___ Other (describe below) Pastoral Comments patient is welcoming and speaks of her rehab needs; pt identifies herself as just a mom which leads to discussion about her family; pt is member of [employer] in [place] and has good support of prayer; pt welcomes presence and prayer
--- NOTE | 2022-05-05 16:55 | CASEMGMT ---
Addendum entered by Tabatha Burgos 05/06/22 12:27: Late entry: during conversation, SW noted Dr requesting palliative consult. Pt unaware of palliative program. SW briefly educated and offered to make referral to schedule an informational meeting. Pt agreed and requesting dtr be present as well. SW agreed. Order entered. Referral made at this date/time via email to [facility]. Original Note: Social Work Met with patient to complete initial assessment. Pt known to this worker from previous stay. Updated assessment answers to reflect PLOF. Pt reports to just being enrolled in [facility] through [facility]. Pt's CM is Mary Mcdermott, and CM is aware of pt's admission, per pt. CM started [facility], [employer] and searching for PSYCHIATRIC SPECIALIST in the home, however, staffing is an issue. Pt is active with [facility] and reports to having close relationship with ELIA Justice. Pt also used [facility] prior. Educated to Medicare benefit. Pt does have secondary insurance prior to Medicaid tertiary insurance, thus pt may remain in TCU throughout benefit period, as appropriate. Pt states her secondary insurance will cover the copays. Discussed code status and MOLST form. SW noted pt signed DNR-CC form, however, order changed to full code. Pt became tearful and expressed being conflicted with decision, stating my daughter wants me to be full code - I don't like talking or thinking about - I'm scared. Empathized with hard decision and conversation. Encouraged to make decision for herself, it is pt's wishes. Explored statements further with feeling scared. Pt leans on lorena and is not scared in that way, but just wants to quickly and peacefully. SW provided supportive listening. Educated to differences between DNR-CC, DNR-CCA and full code, noting pt's responses appear to align with DNR-CC. Pt expressed wishing her daughter was present. SW offered to postpone discussion until pt discussed further with dtr. Offered to provide explanation of code status' to daughter, if needed. Per protocol, SW kindly educated pt will remain full code until changes are made. Pt expressed understanding. MOLST was not completed at this time. Offered to change the subject as noted pt still remaining upset and uncomfortable with the conversation. Pt agreed. SW finished assessment questions. Offered ongoing support and assistance throughout stay as needed. Pt appreciative. SW to continue to follow for DC planning and support. Tabatha Burgos, ELECTRICAL INSTALLATION INSPECTOR CHAIN OFFBEARER
--- NOTE | 2022-05-05 19:24 | NURSING ---
Pt asked this nurse about code status and what the options where. Pt stated I do want CPR if my Heart stops beating. Educated pt that would be a Full Code. Pt agreed she wishes to be Full Code. Orders changed.
[2022-05-05] MEDS: DULoxetine Hcl 60 MG Capsule PO (21:03)
[2022-05-05] MEDS: Fenofibrate 48 MG Tablet PO (21:03)
[2022-05-05 22:00] VITALS: PULSE 89; RESP 16; O2SAT 96
[2022-05-06] MEDS: Acetaminophen 500 MG Tablet 1000 MG PO ×2 (00:50→18:16)
[2022-05-06] MEDS: Enoxaparin 40 MG/0.4 ML Syringe SC (05:01)
[2022-05-06] MEDS: Pantoprazole Sodium 40 MG Tablet PO ×2 (05:03→18:10)
[2022-05-06] MEDS: amLODIPine 5 MG Tablet 7.5 MG PO (05:03)
[2022-05-06] MEDS: Ezetimibe 10 MG Tablet PO (05:03)
[2022-05-06] MEDS: Lisinopril 40 MG Tablet PO (05:03)
[2022-05-06] MEDS: Magnesium Chloride 64 MG Delay Rel.Tablet 128 MG PO (05:03)
[2022-05-06] MEDS: Furosemide 40 MG Tablet PO (05:03)
[2022-05-06] MEDS: Ergocalciferol 1.25 MG (50, 000 UNIT) Capsule PO (05:03)
[2022-05-06] MEDS: Sotalol Hydrochloride 80 MG Tablet 120 MG PO ×2 (05:03→18:09)
[2022-05-06] MEDS: Fluticasone/Salmeterol 232-14 Inhaler 1 PUFF INHALATION (05:10)
[2022-05-06] MEDS: Potassium Chloride Oral Tablet 20 MEQ PO ×2 (08:53→18:09)
[2022-05-06] MEDS: busPIRone 15 MG TABLET PO ×3 (08:53→20:44)
[2022-05-06] MEDS: metFORMIN HCl 500 MG Tablet PO ×2 (08:53→18:09)
[2022-05-06 11:48] VITALS: PULSE 82; RESP 16; O2SAT 97
[2022-05-06] MEDS: Glucerna Shake 120 ML LIQUID PO ×2 (12:51→18:15)
[2022-05-06 15:21] VITALS: BP 108/58; PULSE 90; RESP 14; TEMP 36.1; O2SAT 96
[2022-05-06] MEDS: Glycerin/Hypromellose/PEG400 15 ml Bottle 2 DRP EACH EYE (18:11)
[2022-05-06] MEDS: DULoxetine Hcl 60 MG Capsule PO (20:44)
[2022-05-06] MEDS: Fenofibrate 48 MG Tablet PO (20:45)
[2022-05-06] MEDS: Petrolatum 33% Tube 1 APPLIC TOPICAL (20:46)
[2022-05-07] MEDS: amLODIPine 5 MG Tablet 7.5 MG PO (04:12)
[2022-05-07] MEDS: Magnesium Chloride 64 MG Delay Rel.Tablet 128 MG PO (04:14)
[2022-05-07] MEDS: Pantoprazole Sodium 40 MG Tablet PO ×2 (04:14→16:50)
[2022-05-07] MEDS: Ezetimibe 10 MG Tablet PO (04:14)
[2022-05-07] MEDS: Furosemide 40 MG Tablet PO (04:14)
[2022-05-07] MEDS: Lisinopril 40 MG Tablet PO (04:14)
[2022-05-07] MEDS: Enoxaparin 40 MG/0.4 ML Syringe SC (04:15)
[2022-05-07] MEDS: busPIRone 15 MG TABLET PO ×3 (04:15→21:58)
[2022-05-07] MEDS: Docusate Sodium 100 MG Capsule PO (04:15)
[2022-05-07] MEDS: Sotalol Hydrochloride 80 MG Tablet 120 MG PO ×2 (04:15→16:50)
[2022-05-07] MEDS: Fluticasone/Salmeterol 232-14 Inhaler 1 PUFF INHALATION (04:16)
[2022-05-07 06:33] VITALS: BP 122/71; PULSE 84
[2022-05-07 07:00] LABS: Bedside Glucose 114 mg/dL (74-106)
[2022-05-07] MEDS: metFORMIN HCl 500 MG Tablet PO ×2 (07:52→16:51)
[2022-05-07] MEDS: Glucerna Shake 120 ML LIQUID PO ×3 (07:52→16:51)
[2022-05-07] MEDS: Potassium Chloride Oral Tablet 20 MEQ PO ×2 (07:52→16:50)
[2022-05-07 14:59] VITALS: BP 124/55; PULSE 85; RESP 22; TEMP 36.9; O2SAT 97
[2022-05-07] MEDS: Acetaminophen 500 MG Tablet 1000 MG PO (16:50)
[2022-05-07] MEDS: Petrolatum 33% Tube 1 APPLIC TOPICAL (21:55)
[2022-05-07] MEDS: DULoxetine Hcl 60 MG Capsule PO (21:58)
[2022-05-07] MEDS: Fenofibrate 48 MG Tablet PO (21:58)
[2022-05-07 23:45] VITALS: PULSE 68; RESP 14; O2SAT 99
[2022-05-08] MEDS: Acetaminophen 500 MG Tablet 1000 MG PO ×3 (01:09→15:49)
[2022-05-08 05:00] VITALS: BP 134/67; PULSE 73; RESP 16
[2022-05-08] MEDS: Lisinopril 40 MG Tablet PO (05:24)
[2022-05-08] MEDS: Furosemide 40 MG Tablet PO (05:24)
[2022-05-08] MEDS: Pantoprazole Sodium 40 MG Tablet PO ×2 (05:24→16:44)
[2022-05-08] MEDS: busPIRone 15 MG TABLET PO ×3 (05:24→22:06)
[2022-05-08] MEDS: Magnesium Chloride 64 MG Delay Rel.Tablet 128 MG PO (05:24)
[2022-05-08] MEDS: Sotalol Hydrochloride 80 MG Tablet 120 MG PO ×2 (05:25→16:44)
[2022-05-08] MEDS: Fluticasone/Salmeterol 232-14 Inhaler 1 PUFF INHALATION (05:25)
[2022-05-08] MEDS: amLODIPine 5 MG Tablet 7.5 MG PO (05:26)
[2022-05-08] MEDS: Ezetimibe 10 MG Tablet PO (05:29)
[2022-05-08] MEDS: Enoxaparin 40 MG/0.4 ML Syringe SC (05:29)
[2022-05-08 06:56] LABS: Bedside Glucose 111 mg/dL (74-106)
[2022-05-08] MEDS: Potassium Chloride Oral Tablet 20 MEQ PO ×2 (08:28→16:44)
[2022-05-08] MEDS: Glucerna Shake 120 ML LIQUID PO ×3 (08:29→16:44)
[2022-05-08] MEDS: metFORMIN HCl 500 MG Tablet PO ×2 (08:29→16:44)
[2022-05-08 09:24] VITALS: RESP 16; O2SAT 97
[2022-05-08 14:33] VITALS: BP 102/47; PULSE 83; RESP 16; TEMP 36.2; O2SAT 98
[2022-05-08] MEDS: Petrolatum 33% Tube 1 APPLIC TOPICAL (22:04)
[2022-05-08] MEDS: Fenofibrate 48 MG Tablet PO (22:06)
[2022-05-08] MEDS: DULoxetine Hcl 60 MG Capsule PO (22:06)
[2022-05-09] MEDS: Glycerin/Hypromellose/PEG400 15 ml Bottle 2 DRP EACH EYE (05:21)
[2022-05-09] MEDS: Magnesium Chloride 64 MG Delay Rel.Tablet 128 MG PO (05:21)
[2022-05-09] MEDS: amLODIPine 5 MG Tablet 7.5 MG PO (05:21)
[2022-05-09] MEDS: Fluticasone/Salmeterol 232-14 Inhaler 1 PUFF INHALATION (05:21)
[2022-05-09] MEDS: Acetaminophen 500 MG Tablet 1000 MG PO ×3 (05:21→21:32)
[2022-05-09] MEDS: Ezetimibe 10 MG Tablet PO (05:21)
[2022-05-09] MEDS: busPIRone 15 MG TABLET PO ×3 (05:21→21:26)
[2022-05-09] MEDS: Enoxaparin 40 MG/0.4 ML Syringe SC (05:21)
[2022-05-09] MEDS: Sotalol Hydrochloride 80 MG Tablet 120 MG PO ×2 (05:25→17:37)
[2022-05-09] MEDS: Furosemide 40 MG Tablet PO (05:25)
[2022-05-09] MEDS: Pantoprazole Sodium 40 MG Tablet PO ×2 (05:26→17:45)
[2022-05-09] MEDS: Lisinopril 40 MG Tablet PO (05:26)
[2022-05-09 05:49] VITALS: BP 126/58; PULSE 76; RESP 18
[2022-05-09 06:50] LABS: Bedside Glucose 164 mg/dL (74-106)
[2022-05-09] MEDS: Potassium Chloride Oral Tablet 20 MEQ PO ×2 (08:14→17:34)
[2022-05-09] MEDS: metFORMIN HCl 500 MG Tablet PO ×2 (08:14→17:34)
[2022-05-09] MEDS: Glucerna Shake 120 ML LIQUID PO ×3 (08:16→17:34)
--- NOTE | 2022-05-09 09:32 | PHA.CONS_ITS ---
TCU RX Drug Regimen Review Subjective: TCU Admission. 76 YOF presented with metastatic ovarian cancer. Admitted to [facility] and underwent CHENTE, BSO, debulking surgery 04/27/2022 at [facility], postoperative course complicated by lower gastrointestinal bleeding. Admitted to TCU with debility for strengthening and rehabilitation. Objective: Allergies amoxicillin Allergy (Severe, Verified 04/08/22 10:50) hives chlorhexidine Allergy (Unknown, Verified 04/08/22 10:50) red skin morphine Allergy (Unknown, Verified 04/08/22 10:50) headaches labetalol Allergy (Verified 04/08/22 10:50) Unknown pitavastatin [From Livalo] Allergy (Verified 04/08/22 10:50) Other simvastatin [From Zocor] Allergy (Verified 04/08/22 10:50) Other atorvastatin [From Lipitor] Adverse Reaction (Unknown, Verified 04/08/22 10:50) myalgias budesonide [From Symbicort] Adverse Reaction (Verified 04/08/22 10:50) Other JITTERS formoterol [From Symbicort] Adverse Reaction (Verified 04/08/22 10:50) Other JITTERS hydrocodone [From Vicodin] Adverse Reaction (Verified 04/08/22 10:50) Other HEADACHE Yhwryuc-YQY-WyD Reductase Inhibitor [Fjwkwom-Gmd-Ubl Reductase Inhibitor] Adverse Reaction (Verified 04/08/22 10:50) Other PAIN AND JITTERS Current Medications Generic Name Dose Route Start Last Admin Trade Name Freq PRN Reason Stop Dose Admin Acetaminophen 1,000 mg 05/04/22 20:31 05/09/22 05:21 Acetaminophen 500 Mg Tablet PO 1,000 mg Q6H PRN Administration Pain Score 1-5 Albuterol Sulfate 2 puff 05/04/22 17:43 Albuterol Ih (6.7 Gm) 1 Puff Inhaler INHALATION Q4H PRN SOB/WHEEZING Amlodipine Besylate 7.5 mg 05/05/22 06:00 05/09/22 05:21 Amlodipine 5 Mg Tablet PO 7.5 mg DAILY EM Administration Buspirone HCl 15 mg 05/06/22 08:00 05/09/22 05:21 Buspirone 15 Mg Tablet PO 15 mg TID EM Administration Docusate Sodium 100 mg 05/04/22 18:00 05/09/22 05:25 Docusate Sodium 100 Mg Capsule PO Not Given BID EM Duloxetine HCl 60 mg 05/04/22 22:00 05/08/22 22:06 Duloxetine Hcl 60 Mg Capsule PO 60 mg QHS EM Administration Ezetimibe 10 mg 05/05/22 06:00 05/09/22 05:21 Ezetimibe 10 Mg Tablet PO 10 mg DAILY EM Administration Enoxaparin Sodium 40 mg 05/05/22 06:00 05/09/22 05:21 Enoxaparin 40 Mg/0.4 Ml Syringe SC 40 mg DAILY EM Administration Ergocalciferol 1.25 mg 05/06/22 06:00 05/06/22 05:03 Ergocalciferol 1.25 Mg (50, 000 Unit) Capsule PO 1.25 mg Fr EM Administration Fenofibrate 48 mg 05/04/22 22:00 05/08/22 22:06 Fenofibrate 48 Mg Tablet PO 48 mg QHS EM Administration Furosemide 40 mg 05/05/22 06:00 05/09/22 05:25 Furosemide 40 Mg Tablet PO 40 mg DAILY ME Administration Glycerin/Hypromellose/Polyethylene 2 drp 05/05/22 17:32 05/09/22 05:21 Glycerin/Hypromellose/[id number] 15 Ml Bottle EACH EYE 2 drp Q1H PRN Administration DRY EYES Heparin Sodium (Beef Lung) 50 units 05/04/22 20:03 Heparin Pf Lock 10 Units/Ml 50 Units/5 Ml Syringe IV UD PRN R Port Heparin Flush Heparin Sodium (Beef Lung) 50 units 05/07/22 07:23 Heparin Pf Lock 10 Units/Ml 50 Units/5 Ml Syringe IV UD PRN Port-a-Cath (VAD)Heparin Flush Ibuprofen 600 mg 05/04/22 20:31 Ibuprofen 600 Mg Tablet PO Q6H PRN Pain Score 6-10 Lisinopril 40 mg 05/05/22 06:00 05/09/22 05:26 Lisinopril 40 Mg Tablet PO 40 mg DAILY EM Administration Magnesium Chloride 128 mg 05/05/22 06:00 05/09/22 05:21 Magnesium Chloride 64 Mg Delay Rel.Tablet PO 128 mg DAILY EM Administration Magnesium Hydroxide 30 ml 05/04/22 20:30 Magnesium Hydroxide 30 Ml Udc PO X1 PRN Constipation Metformin HCl 500 mg 05/04/22 18:00 05/09/22 08:14 Metformin Hcl 500 Mg Tablet PO 500 mg BIDCM EM Administration Multi-Ingredient Cream 1 applic 05/06/22 22:00 05/08/22 22:04 Petrolatum 33% Tube TOPICAL 1 applic QHS EM Administration Protocol Nutritional Formula (Lactose Free) 120 ml 05/06/22 12:45 05/09/22 08:16 Glucerna Shake 120 Ml Liquid PO 120 ml TIDCM EM Administration Pantoprazole Sodium 40 mg 05/04/22 18:00 05/09/22 05:26 Pantoprazole Sodium 40 Mg Tablet PO 40 mg BID EM Administration Polyethylene Glycol 17 gm 05/05/22 06:00 05/09/22 05:24 Polyethylene Glycol 3350 17 Gm Packet PO Not Given DAILY EM Potassium Chloride 20 meq 05/04/22 18:00 05/09/22 08:14 Potassium Chloride Oral Tablet 20 Meq PO 20 meq BIDCM EM Administration Fluticasone/Salmeterol 1 puff 05/07/22 06:00 05/09/22 05:21 Fluticasone/Salmeterol 232-14 Inhaler INHALATION 1 puff DAILY EM Administration Sodium Chloride 10 - 40 ml 05/04/22 20:03 0.9% Saline Lock 10 Ml Syringe IV UD PRN R Port Saline Flush Sodium Chloride 10 - 40 ml 05/04/22 20:03 0.9 % Nacl (Sterile) Posiflush 10 Ml IV UD PRN Port access or dressing change Sodium Chloride 10 - 40 ml 05/07/22 07:23 0.9% Saline Lock 10 Ml Syringe IV UD PRN Port-a-Cath (VAD) Flush Sodium Chloride 10 - 40 ml 05/07/22 07:23 0.9 % Nacl (Sterile) Posiflush 10 Ml IV UD PRN Port access or dressing change Sotalol HCl 120 mg 05/04/22 18:00 05/09/22 05:25 Sotalol Hydrochloride 80 Mg Tablet PO 120 mg BID EM Administration Tuberculin PPD 0.1 ml 05/12/22 10:00 Tuberculin,Purif.Prot.Deriv. 50 Tu/Ml Vial ID 05/12/22 10:01 X1 ONE Problem List (Last Reviewed 05/04/22 @ 20:[address] Gaetano Mcmullen MD) Obstructive sleep apnea (Acute) Chronic obstructive pulmonary disease (Chronic) Atrial fibrillation (Acute) Diabetes mellitus (Acute) Hypokalemia (Acute) Depression (Acute) Nausea (Acute) Anxiety (Acute) Hyperlipidemia (Acute) Hypertension (Chronic) GERD (gastroesophageal reflux disease) (Acute) Vitamin D deficiency (Acute) Lower gastrointestinal bleeding (Acute) Malignant ascites (Acute) Primary cancer of ovary with widespread metastatic disease (Acute) Debility (Acute) Vital Signs Temp Pulse Resp BP Pulse Ox O2 Del Method 97.2 F L 76 18 126/58 H 98 Room Air 05/08/22 14:33 05/09/22 05:49 05/09/22 05:49 05/09/22 05:49 05/08/22 14:33 05/08/22 14:33 Oxygen Delivery Method Room Air Weight: 90.7 kg Body Mass Index (BMI) 34.3 Sodium 140 mmol/L (136-145) 05/05/22 05:21 Potassium 3.6 mmol/L (3.5-5.1) 05/05/22 05:21 Chloride 103 mmol/L (98-107) 05/05/22 05:21 Carbon Dioxide 31.0 mmol/L (21.0-32.0) 05/05/22 05:21 Anion Gap 6 (5-15) 05/05/22 05:21 BUN 14 mg/dL (7-18) 05/05/22 05:21 Creatinine 0.68 mg/dL (0.55-1.02) 05/05/22 05:21 Est GFR (MDRD) Af Amer 108 mL/min (>60) 05/05/22 05:21 Est GFR (MDRD) Non-Af 90 mL/min (>60) 05/05/22 05:21 BUN/Creatinine Ratio 20.6 RATIO (10-20) H 05/05/22 05:21 Glucose 103 mg/dL (74-106) 05/05/22 05:21 Assessment/Plan: 1. Pain: acetaminophen 1000mg PO Q6H PRN pain 1-5 and ibuprofen 600mg PO Q6H PRN pain 6-10. Resident has had 10 doses of acetaminophen for pain scores 1-3 (back, generalized, abdomen) and no doses of ibuprofen. Please continue to monitor for increased pain and PRN usage. 2. Bowel: Miralax 17gm PO daily, docusate 100mg PO BID and MOM 30ML PO daily PRN constipation. Please consider changing Miralax and docusate to PRN constipation. Resident has refused 5/5 doses of Miralax and 9/10 doses of docusate. Thanks. Please continue to monitor for S/S of constipation and PRN usage. Last documented bowel movement 05/06. Resident has not received any doses of MOM. 3. DVT prophylaxis: enoxaparin 40mg PO SC daily. Please continue to monitor for S/S of DVT/bleeding, hemoglobin (last 9.3g/dL), platelets (last 288) and renal function. 4. COPD: fluticasone/salmeterol 1puff inhalation Q12 and albuterol MDT 2puff inhalation Q4H PRN SOB/wheezing. Please continue to monitor HR (last 76), S/S of thrush, PRN usage and SOB/wheezing. Resident has not used any doses of albutero l. Please rinse mouth with water and spit following fluticasone/salmeterol administration to prevent thrush. 5. Hypertension/CHF/atrial fibrillation: sotalol 120mg PO BID, amlodipine 7.5mg PO daily, lisinopril 40mg PO daily, furosemide 40mg PO daily. Xarelto on hold due to lower GIB. Please continue to monitor for HR (last 76), BP (last 126/58), swelling, potassium (last 3.6mmol/L), sodium (last 140mmol/L), renal function, cough. 6. Hyperlipidemia: ezetimibe 10mg PO daily and fenofibrate 48mg PO QHS. Please continue to monitor lipid panel (last 10/27/21). 7. Diabetes mellitus II: metformin 500mg PO BIDCM. Please consider ordering a hemoglobin A1c every 3 months (last 01/26/22) if clinically appropriate. Thanks. Please continue to monitor eGFR (last 90mL/min), glucose (last 164mg/dL), diarr hea, and S/S of hypoglycemia. 8. GERD/lower GIB: pantoprazole 40mg PO BID. Please continue to monitor for S/S of diarrhea (BEERs list medication for increased risk of C diff infection) and GERD. 9. Hypokalemia: potassium chloride 20mEq PO BIDCM. Please continue to monitor potassium levels (last 3.6mmol/L). 10. Hypomagnesium: magnesium chloride 128mg PO daily. Please consider ordering a magnesium level (last 1.8mg/dL on 10/2018). Thanks. 11. Vitamin D deficiency: ergocalciferol 1.25mg PO Fridays. Please continue to monitor vitamin D levels (last 01/26/22). 12. Dry eyes: artificial tears 2gtt OU Q1H PRN dry eyes. Resident has received 2 doses of artificial tears. Pleae continue to monitor for S/S of dry eyes and PRN usage. Assessment/Plan for indications treated with psychotropic medications: 1. Depression: duloxetine 60mg PO QHS. Please see physician note regarding GDR. Please continue to monitor for suicidal ideation (black box warning), falls/fractures (BEERs list medication) and renal function. 2. Anxiety (per PMH): buspirone 15mg PO TID. Please consider GDR by 10/2022 if clinically appropriate. Thanks. Please continue to monitor for S/S of anxiety, dizziness and drowsiness. Medical chart and medication regimen reviewed. The following medication irregularities or issues were identified: *1. Miralax 17gm PO daily and docusate 100mg PO BID. Please consider changing Miralax and docusate to PRN constipation. Resident has refused 5/5 doses of Miralax and 9/10 doses of docusate. Thanks. *2. Buspirone 15mg PO TID. Please consider GDR by 10/2022 if clinically appropriate. Thanks. *3. Metformin 500mg PO BIDCM. Please consider ordering a hemoglobin A1c every 3 months (last 01/26/22) if clinically appropriate. Thanks. *4. Magnesium chloride 128mg PO daily. Please consider ordering a magnesium level (last 1.8mg/dL on 10/2018). Thanks. Date of Note:: 05/09/22
[2022-05-09 14:00] VITALS: BP 104/44; PULSE 71; RESP 18; TEMP 36.3; O2SAT 99
[2022-05-09] MEDS: DULoxetine Hcl 60 MG Capsule PO (21:27)
[2022-05-09] MEDS: Petrolatum 33% Tube 1 APPLIC TOPICAL (21:28)
[2022-05-09] MEDS: Fenofibrate 48 MG Tablet PO (21:28)
[2022-05-09 22:00] VITALS: PULSE 68; RESP 16; O2SAT 98
[2022-05-10] MEDS: Sotalol Hydrochloride 80 MG Tablet 120 MG PO ×2 (05:13→17:13)
[2022-05-10] MEDS: Enoxaparin 40 MG/0.4 ML Syringe SC (05:13)
[2022-05-10] MEDS: busPIRone 15 MG TABLET PO ×3 (05:14→20:47)
[2022-05-10] MEDS: Pantoprazole Sodium 40 MG Tablet PO ×2 (05:15→17:13)
[2022-05-10] MEDS: Magnesium Chloride 64 MG Delay Rel.Tablet 128 MG PO (05:15)
[2022-05-10] MEDS: amLODIPine 5 MG Tablet 7.5 MG PO (05:15)
[2022-05-10] MEDS: Ezetimibe 10 MG Tablet PO (05:15)
[2022-05-10] MEDS: Lisinopril 40 MG Tablet PO (05:16)
[2022-05-10] MEDS: Furosemide 40 MG Tablet PO (05:16)
[2022-05-10] MEDS: Fluticasone/Salmeterol 232-14 Inhaler 1 PUFF INHALATION (05:18)
[2022-05-10 06:40] LABS: Bedside Glucose 88 mg/dL (74-106)
[2022-05-10] MEDS: metFORMIN HCl 500 MG Tablet PO ×2 (08:54→17:13)
[2022-05-10] MEDS: Glucerna Shake 120 ML LIQUID PO ×3 (08:54→17:12)
[2022-05-10] MEDS: FLUCONAZOLE 150 MG TABLET PO (08:54)
[2022-05-10] MEDS: Potassium Chloride Oral Tablet 20 MEQ PO ×2 (08:54→17:12)
[2022-05-10 09:46] VITALS: PULSE 79; RESP 16; O2SAT 79
--- NOTE | 2022-05-10 13:42 | NURSING ---
[facility] called and stated pt has a standing order for a paracentesis which was last done in December, and they were wondering how pt is doing currently. pt denies bloating or discomfort. Abdomen is soft and non-tender. Dr Mcmullen made aware.
[2022-05-10 14:16] VITALS: BP 115/67; PULSE 73; RESP 17; TEMP 36.6; O2SAT 98
[2022-05-10] MEDS: Acetaminophen 500 MG Tablet 1000 MG PO (15:51)
[2022-05-10] MEDS: Petrolatum 33% Tube 1 APPLIC TOPICAL (20:48)
[2022-05-10] MEDS: DULoxetine Hcl 60 MG Capsule PO (20:48)
[2022-05-10] MEDS: Fenofibrate 48 MG Tablet PO (20:48)
[2022-05-11] MEDS: Sotalol Hydrochloride 80 MG Tablet 120 MG PO ×2 (04:44→17:08)
[2022-05-11] MEDS: amLODIPine 5 MG Tablet 7.5 MG PO (04:44)
[2022-05-11] MEDS: Magnesium Chloride 64 MG Delay Rel.Tablet 128 MG PO (04:45)
[2022-05-11] MEDS: Enoxaparin 40 MG/0.4 ML Syringe SC (04:45)
[2022-05-11] MEDS: Lisinopril 40 MG Tablet PO (04:45)
[2022-05-11] MEDS: Ezetimibe 10 MG Tablet PO (04:45)
[2022-05-11] MEDS: Pantoprazole Sodium 40 MG Tablet PO ×2 (04:45→17:11)
[2022-05-11] MEDS: Fluticasone/Salmeterol 232-14 Inhaler 1 PUFF INHALATION (04:46)
[2022-05-11] MEDS: Docusate Sodium 100 MG Capsule PO ×2 (04:46→17:11)
[2022-05-11] MEDS: Furosemide 40 MG Tablet PO (04:46)
[2022-05-11] MEDS: busPIRone 15 MG TABLET PO ×3 (04:46→20:23)
[2022-05-11] MEDS: Menthol/Lanolin/Calamine/Znox 113 GM Tube 1 APPLIC TOPICAL ×2 (04:58→17:10)
[2022-05-11 06:31] LABS: Bedside Glucose 160 mg/dL (74-106)
[2022-05-11] MEDS: Glucerna Shake 120 ML LIQUID PO ×3 (08:13→17:06)
[2022-05-11] MEDS: metFORMIN HCl 500 MG Tablet PO ×2 (08:14→17:06)
[2022-05-11] MEDS: Potassium Chloride Oral Tablet 20 MEQ PO ×2 (09:13→17:07)
--- NOTE | 2022-05-11 09:17 | NURSING ---
Case Maker Note; MDS Complete
--- NOTE | 2022-05-11 10:30 | CASEMGMT ---
Social Work BIMS and PHQ9 interviews completed on this date for MDS assessment. BIMS score , PHQ9 score 10/17. ELIA Rodriguez
--- NOTE | 2022-05-11 13:01 | CASEMGMT ---
Social Work IDT met with patient, dtr and via conference call for care plan meeting. Discussed patient's progress in PT/OT/SN. Educated to Medicare benefit. Pts goal is to return home with . Pt is started with services through [employer] [facility] [employer], [facility], and searching for CUTTER TENDER. Inquired about electing palliative. Pt still deciding on services. Offered to set DC date when pt is ready. Pt requesting FWW at DC. SW will continue to follow for DC planning. Tabatha Burgos, DAISY BROUSSARDW
[2022-05-11 13:41] VITALS: BP 108/57; PULSE 70; RESP 16; TEMP 36.7; O2SAT 98
--- NOTE | 2022-05-11 17:27 | PCM.CONS.GEN ---
Assessment & Plan Assessment/Plan (1) Nail dystrophy: (2) Diabetes mellitus: (3) Corns and callosities: (4) Pain in right foot: PLAN: Plan Evaluation performed. Debrided toenails 1-5 bilateral using a nail nipper. This was done without incident. Also debrided callusing from the plantar right forefoot using a scalpel blade. There was a very small superficial microbleed - applied betadine soln and bandaid - ok to remove tomorrow. Reviewed proper foot care. Patient to follow up as outpatient from on going diabetic foot care needs. HPI Consult Data Date of Consult: 05/12/22 HPI Narrative Reason for Consultation: Diabetic foot care HPI Narrative: ANDREW VELAZQUEZ, is a 76 F who presents for bilateral foot care. She has hx of diabetes. She has long, thickened toenails which need to be reduced. She also has a callus on the right foot which is painful and needs reduced. She has no other pedal complaints at this time. COUNTS INCLUDE 234 BEDS AT THE [facility] Medical History (Updated 05/12/22 @ 20:[address] Isak Green, DPApryl) Abdominal pain Acute exacerbation of chronic obstructive pulmonary disease (COPD) Acute respiratory failure with hypoxia and hypercarbia Anxiety Ascites Atherosclerotic heart disease of [place] coronary artery without angina pectoris Atrial fibrillation with RVR CAD (coronary artery disease) CAD (coronary artery disease) COPD (chronic obstructive pulmonary disease) Debility Diarrhea Diastolic congestive heart failure DM2 (diabetes mellitus, type 2) Essential hypertension Flu vaccine need Hiatal hernia HLD (hyperlipidemia) HTN (hypertension) Hypokalemia Junctional rhythm Long-term use of high-risk medication Morbid obesity NSTEMI (non-ST elevated myocardial infarction) SEVEN (obstructive sleep apnea) Ovarian cancer PAF (paroxysmal atrial fibrillation) Panic disorder Paroxysmal atrial fibrillation with rapid ventricular response Pelvic mass Port-A-Cath in place Pulmonary HTN Sepsis SOB (shortness of breath) Spastic colon Streptococcal pneumonia Vitamin D deficiency Home Medications compress.stocking,knee,reg,lrg #2 ea 05/06/19 [Rx Last Taken Unknown] magnesium oxide 400 mg PO DAILY #90 caps 07/01/19 [Rx Last Taken Unknown] multivitamin 1 tab PO DAILY supplement 02/03/20 [History Last Taken Unknown] lancing device #1 ea 12/29/20 [Rx Last Taken Unknown] lorazepam 0.5 mg tablet 0.5 mg PO BID PRN anxiety #20 tabs 01/03/22 [Rx Last Taken Unknown] dexamethasone 4 mg tablet 20 mg PO PRN PRN CHEMO 01/19/22 [History Last Taken Unknown] promethazine 25 mg tablet 25 mg PO Q6H PRN Nausea 01/19/22 [History Last Taken Unknown] carboplatin 10 mg/mL intravenous solution continuous IV infusion NA 01/26/22 [History Last Taken Unknown] metformin 500 mg tablet 500 mg PO BID blood sugars 02/11/22 [History Last Taken Unknown] alendronate 70 mg tablet 70 mg PO QMONTH bones 04/08/22 [History Last Taken Unknown] diphenhydramine HCl 25 mg capsule (Benadryl) 25 mg PO Q6H PRN Itching 04/08/22 [History Last Taken Unknown] lidocaine-prilocaine 2.5 %-2.5 % topical cream 1 applic topical 04/08/22 [History Last Taken Unknown] loperamide 2 mg capsule 2 mg PO Q6H PRN bowels 04/08/22 [History Last Taken Unknown] magnesium oxide 400 mg PO DAILY supplement 04/08/22 [History Last Taken Unknown] acetaminophen 650 mg tablet 650 mg PO Q6H PRN Pain 05/04/22 [History Last Taken Unknown] albuterol sulfate 90 mcg/actuation aerosol inhaler (Ventolin HFA) 2 puff inhalation Q4H PRN shortness of breath or wheezing 05/04/22 [History Last Taken Unknown] amlodipine 5 mg tablet 7.5 mg PO DAILY BP 05/04/22 [History Last Taken Unknown] buspirone 15 mg tablet 15 mg PO TID depression 05/04/22 [History Last Taken Unknown] cholecalciferol (vitamin D3) 1,250 mcg (50,000 unit) tablet 50,000 unit PO QWEEK supplement 05/04/22 [History Last Taken Unknown] docusate sodium 100 mg capsule (Colace) 100 mg PO BID bowels 05/04/22 [History Last Taken Unknown] duloxetine 60 mg capsule,delayed release 60 mg PO QDAY depression 05/04/22 [History Last Taken Unknown] enoxaparin 40 mg/0.4 mL subcutaneous syringe (Lovenox) 40 mg subcut DAILY blood thinner 05/04/22 [History Last Taken Unknown] ezetimibe 10 mg tablet (Zetia) 10 mg PO QDAY cholesterol 05/04/22 [History Last Taken Unknown] fenofibrate micronized 67 mg capsule 67 mg PO QPM fiber 05/04/22 [History Last Taken Unknown] fluticasone furoate 200 mcg-vilanterol 25 mcg/dose inhalation powder (Breo Ellipta) 1 inh inhalation QDAY breathing 05/04/22 [History Last Taken Unknown] furosemide 40 mg tablet (Lasix) 40 mg PO DAILY fluid pill 05/04/22 [History Last Taken Unknown] ibuprofen 600 mg tablet 600 mg PO Q6H PRN Pain 05/04/22 [History Last Taken Unknown] lisinopril 40 mg tablet 40 mg PO DAILY BP 05/04/22 [History Last Taken Unknown] polyethylene glycol 3350 17 gram oral powder packet (Miralax) 17 g PO DAILY constipation 05/04/22 [History Last Taken Unknown] potassium chloride 20 mEq tablet,extended release(part/cryst) (Klor-Con M) 20 meq PO BID supplement 05/04/22 [History Last Taken Unknown] rivaroxaban 20 mg tablet 20 mg PO DAILY blood thinner 05/04/22 [History Last Taken Unknown] sotalol 120 mg tablet 120 mg PO BID BP 05/04/22 [History Last Taken Unknown] pantoprazole 40 mg tablet,delayed release See Rx Instructions .Route .COMPLEX #180 TABLETS 05/11/22 [Rx Last Taken Unknown] Allergy/AdvReac Type Severity Reaction Status Date / Time amoxicillin Allergy Severe hives Verified 04/08/22 10:50 chlorhexidine Allergy Unknown red skin Verified 04/08/22 10:50 morphine Allergy Unknown headaches Verified 04/08/22 10:50 labetalol Allergy Unknown Verified 04/08/22 10:50 pitavastatin [From Livalo] Allergy Other Verified 04/08/22 10:50 simvastatin [From Zocor] Allergy Other Verified 04/08/22 10:50 atorvastatin [From Lipitor] AdvReac Unknown myalgias Verified 04/08/22 10:50 budesonide [From Symbicort] AdvReac Other Verified 04/08/22 10:50 formoterol [From Symbicort] AdvReac Other Verified 04/08/22 10:50 hydrocodone [From Vicodin] AdvReac Other Verified 04/08/22 10:50 Iywlryx-CHO-SbT Reductase AdvReac Other Verified 04/08/22 10:50 Inhibitor [Wvgovkb-Prh-Mpm Reductase Inhibitor] Family History Mother Cancer leukemia Father Respiratory disease Grandfather Myocardial infarction Grandmother Myocardial infarction Son Diabetes Surgical History (Updated 05/04/22 @ 20:[address] Gaetano Mcmullen MD) History of cataract surgery History of colonoscopy History of exploratory laparotomy History of surgery on right wrist History of tonsillectomy and adenoidectomy Social History (Updated 05/04/22 @ 20:[address] Gaetano Mcmullen MD) household members: spouse Smoking Status: Never smoker alcohol intake: never substance use type: does not use caffeine: Yes Type: coffee Number of servings: 1 what type of physical activity do you participate in: none seatbelt use: always do you feel safe at home: Yes ROS Constitutional Constitutional: Denies chills or fever(s) Physical Exam Narrative Toenails 1-5 bilateral are elongated, thickened, dystrophic, yellow with subungual debris. There is a HPK callus porokeratosis plantar central forefoot on the right foot. No open lesions, no macerations, no drainage, no erythema, no ecchymosis bilateral foot/ankle. CFT < 2 seconds to all toes bilateral with intact vascular status bilateral foot, sensation is intact to light touch bilateral foot. No m/s POP or pain on ROM to the foot or ankle bilateral. No evidence of charcot neuroarthropathy bilateral. Lab / Micro Data Result Diagrams: 05/12/22 05:15 05/12/22 05:15 Labs: Laboratory Results - last 24 hr 05/11/22 06:01: POC Glucose 160 H
[2022-05-11] MEDS: Acetaminophen 500 MG Tablet 1000 MG PO (20:22)
[2022-05-11] MEDS: DULoxetine Hcl 60 MG Capsule PO (20:22)
[2022-05-11] MEDS: Fenofibrate 48 MG Tablet PO (20:22)
[2022-05-11] MEDS: Petrolatum 33% Tube 1 APPLIC TOPICAL (20:23)
[2022-05-11 22:14] VITALS: PULSE 76; RESP 16; O2SAT 97
[2022-05-12 05:37] LABS: Absolute Lymphocyte Count 1.52 X10^3/uL (0.83-4.51); Absolute Neutrophil Count 4.1 X10^3/uL (2.0-7.7); Basophil# 0.02 X10^3/uL; Basophil% 0.3 % (0-1); Eosinophil# 0.12 X10^3/uL; Eosinophils% 1.8 % (0-5); Hematocrit 31.5 % (37-47); Hemoglobin 9.8 g/dL (12.0-15.0); Lymphocyte # 1.52 X10^3/ul (0.83-4.51); Lymphocyte % 23.2 % (19-41); Mean Corp Hgb Conc 31.1 g/dL (32-36); Mean Corpuscular Hgb 30.2 pg (27.0-32.0); Mean Corpuscular Volume 97.2 fL (81-99); Mean Platelet Vol. 10.7 fl (6.2-12.0); Monocyte# 0.78 X10^3/uL; Monocyte% 11.9 % (0-10); NRBC Flagged by Analyzer 0 % (0-5); Neutrophil # 4.07 X10^3/uL (2.7-7.7); Neutrophil % 62.2 % (47-70); Platelet Count 338 K/mm3 (150-450); RBC Distribution Width CV 15.8 % (11.6-14.6); RBC Distribution Width SD 56.4 fl (35.1-43.9); Red Blood Count 3.24 M/mm3 (4.2-5.4); White Blood Count 6.6 K/mm3 (4.4-11.0)
[2022-05-12] MEDS: Fluticasone/Salmeterol 232-14 Inhaler 1 PUFF INHALATION (05:43)
[2022-05-12] MEDS: Enoxaparin 40 MG/0.4 ML Syringe SC (05:43)
[2022-05-12] MEDS: Pantoprazole Sodium 40 MG Tablet PO ×2 (05:44→17:03)
[2022-05-12] MEDS: Magnesium Chloride 64 MG Delay Rel.Tablet 128 MG PO (05:44)
[2022-05-12] MEDS: busPIRone 15 MG TABLET PO ×2 (05:44→21:04)
[2022-05-12] MEDS: Ezetimibe 10 MG Tablet PO (05:44)
[2022-05-12] MEDS: Sotalol Hydrochloride 80 MG Tablet 120 MG PO ×2 (05:44→17:04)
[2022-05-12] MEDS: Glucerna Shake 120 ML LIQUID PO ×2 (05:53→17:05)
[2022-05-12] MEDS: Menthol/Lanolin/Calamine/Znox 113 GM Tube 1 APPLIC TOPICAL ×2 (05:57→17:06)
[2022-05-12 06:20] LABS: Anion Gap 7 (5-15); BUN 35 mg/dL (7-18); BUN/Creat Ratio 42.7 RATIO (10-20); Calcium,Total 8.9 mg/dL (8.5-10.1); Chloride 107 mmol/L (98-107); Creatinine, Serum 0.82 mg/dL (0.55-1.02); EST Glomerular Filtration Rate 72 mL/min (>60); Est Glom Filt Rate - Afr Amer 88 mL/min (>60); Estimated Creatinine Clearance 51.98 ml/min; Glucose 107 mg/dL (74-106); Potassium 4.6 mmol/L (3.5-5.1); Sodium Level 140 mmol/L (136-145)
[2022-05-12 06:51] LABS: Bedside Glucose 121 mg/dL (74-106)
[2022-05-12] MEDS: metFORMIN HCl 500 MG Tablet PO ×2 (09:05→17:00)
[2022-05-12] MEDS: Potassium Chloride Oral Tablet 20 MEQ PO ×2 (09:05→17:03)
[2022-05-12] MEDS: Tuberculin,Purif.prot.deriv. 50 TU/ML Vial 0.1 ML ID (09:08)
[2022-05-12] MEDS: Acetaminophen 500 MG Tablet 1000 MG PO (10:05)
[2022-05-12 16:55] VITALS: BP 133/55; PULSE 74; RESP 18; TEMP 36.6; O2SAT 95
[2022-05-12] MEDS: Docusate Sodium 100 MG Capsule PO (17:05)
[2022-05-12] MEDS: Glycerin/Hypromellose/PEG400 15 ml Bottle 2 DRP EACH EYE (17:06)
[2022-05-12] MEDS: DULoxetine Hcl 60 MG Capsule PO (21:04)
[2022-05-12] MEDS: Fenofibrate 48 MG Tablet PO (21:04)
[2022-05-12] MEDS: Petrolatum 33% Tube 1 APPLIC TOPICAL (21:06)
[2022-05-13] MEDS: Ezetimibe 10 MG Tablet PO (05:19)
[2022-05-13] MEDS: Pantoprazole Sodium 40 MG Tablet PO ×2 (05:19→17:10)
[2022-05-13] MEDS: Ergocalciferol 1.25 MG (50, 000 UNIT) Capsule PO (05:19)
[2022-05-13] MEDS: Magnesium Chloride 64 MG Delay Rel.Tablet 128 MG PO (05:19)
[2022-05-13 05:20] VITALS: BP 125/46; PULSE 79; RESP 18; O2SAT 97
[2022-05-13] MEDS: busPIRone 15 MG TABLET PO ×3 (05:20→22:14)
[2022-05-13] MEDS: Sotalol Hydrochloride 80 MG Tablet 120 MG PO ×2 (05:20→17:09)
[2022-05-13] MEDS: Menthol/Lanolin/Calamine/Znox 113 GM Tube 1 APPLIC TOPICAL ×2 (05:21→17:11)
[2022-05-13] MEDS: Docusate Sodium 100 MG Capsule PO (05:21)
[2022-05-13] MEDS: Glucerna Shake 120 ML LIQUID PO ×4 (05:23→22:16)
[2022-05-13] MEDS: Fluticasone/Salmeterol 232-14 Inhaler 1 PUFF INHALATION (05:24)
[2022-05-13 06:21] LABS: Anion Gap 5 (5-15); BUN 26 mg/dL (7-18); BUN/Creat Ratio 38.1 RATIO (10-20); Calcium,Total 8.9 mg/dL (8.5-10.1); Chloride 107 mmol/L (98-107); Creatinine, Serum 0.68 mg/dL (0.55-1.02); EST Glomerular Filtration Rate 90 mL/min (>60); Est Glom Filt Rate - Afr Amer 108 mL/min (>60); Estimated Creatinine Clearance 42.62 ml/min; Glucose 110 mg/dL (74-106); Potassium 4.6 mmol/L (3.5-5.1); Sodium Level 138 mmol/L (136-145)
[2022-05-13 06:40] LABS: Bedside Glucose 124 mg/dL (74-106)
[2022-05-13] MEDS: Potassium Chloride Oral Tablet 20 MEQ PO ×2 (07:51→17:08)
[2022-05-13] MEDS: metFORMIN HCl 500 MG Tablet PO ×2 (07:51→17:08)
[2022-05-13] MEDS: FLUCONAZOLE 150 MG TABLET PO (07:51)
[2022-05-13] MEDS: Acetaminophen 500 MG Tablet 1000 MG PO (11:58)
[2022-05-13 11:59] VITALS: PULSE 73; RESP 18; O2SAT 99
[2022-05-13 13:48] VITALS: BP 105/47; PULSE 71; RESP 18; TEMP 36.6; O2SAT 96
[2022-05-13] MEDS: Rivaroxaban 20 MG Tablet PO (17:08)
--- NOTE | 2022-05-13 19:28 | EKG12_ITS ---
Test Reason : CP Blood Pressure : / mmHG Vent. Rate : 070 BPM Atrial Rate : 070 BPM P-R Int : 140 ms QRS Dur : 092 ms QT Int : 432 ms P-R-T Axes : 071 054 045 degrees QTc Int : 466 ms Normal sinus rhythm with sinus arrhythmia Normal ECG When compared with ECG of 19-JAN-2022 05:55, Premature ventricular complexes are no longer Present Confirmed by NAHUM WOLFE, CRISTI ([id number]), department editor MONTY ARIZMENDI ([id number]) on 05/16/2022 2:04:54 PM Referred By: Confirmed By:CRISTI SIDHU MD
[2022-05-13 19:31] VITALS: BP 132/51; PULSE 68; RESP 18; TEMP 36.2; O2SAT 97
--- NOTE | 2022-05-13 19:32 | NURSING ---
Addendum entered by Lisa Underwood 05/13/22 19:50: Dr. Mcmullen updated with EKG. New order for Milk of Mag 30 mL x1 dose. Original Note: pt c/o epigastric pain, comes and goes. vitals stable. EKG ordered, RT here now. daughter at bedside. pt resting in bed but not in a very helpful position, pt had just finished eating supper. will update dr mcmullen.
[2022-05-13] MEDS: Magnesium Hydroxide 30 ML UDC PO (22:11)
[2022-05-13] MEDS: DULoxetine Hcl 60 MG Capsule PO (22:14)
[2022-05-13] MEDS: Fenofibrate 48 MG Tablet PO (22:14)
[2022-05-13] MEDS: Petrolatum 33% Tube 1 APPLIC TOPICAL (22:16)
[2022-05-14] MEDS: Ezetimibe 10 MG Tablet PO (06:25)
[2022-05-14] MEDS: busPIRone 15 MG TABLET PO ×3 (06:25→21:18)
[2022-05-14] MEDS: Pantoprazole Sodium 40 MG Tablet PO ×2 (06:25→17:37)
[2022-05-14] MEDS: Docusate Sodium 100 MG Capsule PO (06:25)
[2022-05-14] MEDS: Sotalol Hydrochloride 80 MG Tablet 120 MG PO ×2 (06:25→17:37)
[2022-05-14] MEDS: Fluticasone/Salmeterol 232-14 Inhaler 1 PUFF INHALATION (06:25)
[2022-05-14] MEDS: Magnesium Chloride 64 MG Delay Rel.Tablet 128 MG PO (06:25)
[2022-05-14] MEDS: Menthol/Lanolin/Calamine/Znox 113 GM Tube 1 APPLIC TOPICAL ×2 (06:30→17:38)
[2022-05-14 06:46] LABS: Bedside Glucose 105 mg/dL (74-106)
[2022-05-14] MEDS: metFORMIN HCl 500 MG Tablet PO ×2 (08:16→17:37)
[2022-05-14] MEDS: Potassium Chloride Oral Tablet 20 MEQ PO ×2 (08:16→17:37)
[2022-05-14] MEDS: Glucerna Shake 120 ML LIQUID PO ×3 (13:26→21:14)
[2022-05-14 14:58] VITALS: BP 110/54; PULSE 70; RESP 16; TEMP 35.9; O2SAT 98
[2022-05-14] MEDS: Rivaroxaban 20 MG Tablet PO (17:37)
[2022-05-14] MEDS: DULoxetine Hcl 60 MG Capsule PO (21:16)
[2022-05-14] MEDS: Fenofibrate 48 MG Tablet PO (21:16)
[2022-05-14] MEDS: Petrolatum 33% Tube 1 APPLIC TOPICAL (21:20)
[2022-05-15] MEDS: Sotalol Hydrochloride 80 MG Tablet 120 MG PO ×2 (05:11→17:19)
[2022-05-15] MEDS: Magnesium Chloride 64 MG Delay Rel.Tablet 128 MG PO (05:11)
[2022-05-15] MEDS: Ezetimibe 10 MG Tablet PO (05:12)
[2022-05-15] MEDS: Pantoprazole Sodium 40 MG Tablet PO ×2 (05:12→17:19)
[2022-05-15] MEDS: Docusate Sodium 100 MG Capsule PO (05:12)
[2022-05-15] MEDS: busPIRone 15 MG TABLET PO ×3 (05:13→21:17)
[2022-05-15] MEDS: Menthol/Lanolin/Calamine/Znox 113 GM Tube 1 APPLIC TOPICAL ×2 (05:13→17:21)
[2022-05-15] MEDS: Glucerna Shake 120 ML LIQUID PO ×4 (05:14→21:17)
[2022-05-15] MEDS: Fluticasone/Salmeterol 232-14 Inhaler 1 PUFF INHALATION (05:15)
[2022-05-15 05:19] VITALS: BP 134/63; PULSE 79
[2022-05-15 06:30] LABS: Bedside Glucose 107 mg/dL (74-106)
[2022-05-15] MEDS: Potassium Chloride Oral Tablet 20 MEQ PO ×2 (07:49→17:20)
[2022-05-15] MEDS: metFORMIN HCl 500 MG Tablet PO ×2 (07:49→17:20)
--- NOTE | 2022-05-15 13:07 | NURSING ---
Pt and Daughter will cancel appt with Primary care Doctor. Dr. Piedra and schedule it once Discharged.
[2022-05-15 14:59] VITALS: BP 119/50; PULSE 69; RESP 16; TEMP 36.2; O2SAT 97
[2022-05-15] MEDS: Rivaroxaban 20 MG Tablet PO (17:20)
[2022-05-15] MEDS: Glycerin/Hypromellose/PEG400 15 ml Bottle 2 DRP EACH EYE (17:21)
[2022-05-15 17:26] VITALS: BP 127/51; PULSE 68
[2022-05-15] MEDS: Nystatin Powder 15gm Bottle 1 APPLIC TOPICAL (21:17)
[2022-05-15] MEDS: DULoxetine Hcl 60 MG Capsule PO (21:17)
[2022-05-15] MEDS: Fenofibrate 48 MG Tablet PO (21:18)
[2022-05-15] MEDS: Petrolatum 33% Tube 1 APPLIC TOPICAL (21:21)
[2022-05-16] MEDS: Sotalol Hydrochloride 80 MG Tablet 120 MG PO ×2 (05:08→16:48)
[2022-05-16] MEDS: Fluticasone/Salmeterol 232-14 Inhaler 1 PUFF INHALATION (05:08)
[2022-05-16] MEDS: busPIRone 15 MG TABLET PO ×3 (05:09→20:20)
[2022-05-16] MEDS: Glucerna Shake 120 ML LIQUID PO ×4 (05:09→20:20)
[2022-05-16] MEDS: Docusate Sodium 100 MG Capsule PO ×2 (05:09→16:48)
[2022-05-16] MEDS: Magnesium Chloride 64 MG Delay Rel.Tablet 128 MG PO (05:10)
[2022-05-16] MEDS: Ezetimibe 10 MG Tablet PO (05:11)
[2022-05-16] MEDS: Pantoprazole Sodium 40 MG Tablet PO ×2 (05:11→16:49)
[2022-05-16] MEDS: Menthol/Lanolin/Calamine/Znox 113 GM Tube 1 APPLIC TOPICAL ×2 (05:14→16:49)
[2022-05-16 05:30] VITALS: BP 130/58; PULSE 77
[2022-05-16 06:36] LABS: Bedside Glucose 145 mg/dL (74-106)
[2022-05-16] MEDS: Potassium Chloride Oral Tablet 20 MEQ PO ×2 (09:39→16:47)
[2022-05-16] MEDS: metFORMIN HCl 500 MG Tablet PO ×2 (09:39→16:47)
[2022-05-16] MEDS: Nystatin Powder 15gm Bottle 1 APPLIC TOPICAL ×2 (09:40→16:50)
[2022-05-16 14:27] VITALS: BP 124/58; PULSE 79; RESP 18; TEMP 36.2; O2SAT 98
--- NOTE | 2022-05-16 16:47 | CASEMGMT ---
Addendum entered by Tabatha Burgos 05/17/22 14:53: Spoke with Mary GERMAIN at [facility] of DC and services. Addendum entered by Tabatha Burgos 05/17/22 14:26: [facility] does not have FWW in stock. Updated pt and pt agreeable to pickle solution maker at [facility]. Script faxed to [facility]. Addendum entered by Tabatha Burgos 05/17/22 10:37: Notified palliative of DC. They will follow up with pt after DC to determine if pt is agreeable to services. Original Note: Social Work Spoke with pt about request to DC home 05/18. IDT agreeable. Pt requesting HHC PT/OT. SW provided printed list of skilled C providers with quality and resource data via [employer]. [facility] Referral made via phone. Pt requesting FWW. Referral faxed and emailed to [facility]. Dtr to transport in the afternoon. Plan: DC home alone 05/18, [facility], FWW Tabatha Burgos MSW SERVICE UNIT OPERATOR [employer]
[2022-05-16] MEDS: Rivaroxaban 20 MG Tablet PO (16:48)
--- NOTE | 2022-05-16 20:02 | PCM.DC.SUM ---
Providers Date of Admission: 05/04/22 Primary Care Physician: Dr. Quique Mims MD Consultations 05/06/22 12:29 Consult: Hospice / Palliative Care Routine Consulting Provider: [facility] Reason for Consult: PALLIATIVE - ovarian cancer, decline, anxiety EMERGENT Consult: No Notified: Yes Date Notified: 05/06/22 Time Notified: 12:29 Method of Notification: ED Physician Initiated 05/09/22 07:57 Consult: Podiatry Routine Consulting Provider: Donte Abdi Reason for Consult: Diabetic foot care EMERGENT Consult: No MD Notified: Yes Date Notified: 05/10/22 Time Notified: 08:46 Method of Notification: Verbal Reason For Visit: TOTAL HYSTERECTOMY Diagnosis Discharge Diagnosis (1) Nail dystrophy: Status: Acute Code(s): L60.3 - Nail dystrophy (2) Diabetes mellitus: Status: Acute Code(s): E11.9 - Type 2 diabetes mellitus without complications (3) Corns and callosities: Status: Acute Code(s): L84 - Corns and callosities (4) Pain in right foot: Status: Acute Code(s): M79.671 - Pain in right foot (5) Debility: Status: Acute Code(s): R53.81 - Other malaise (6) Primary cancer of ovary with widespread metastatic disease: Status: Acute Code(s): C56.9 - Malignant neoplasm of unspecified ovary; C80.0 - Disseminated malignant neoplasm, unspecified (7) Malignant ascites: Status: Acute Code(s): R18.0 - Malignant ascites (8) Lower gastrointestinal bleeding: Status: Acute Code(s): K92.2 - Gastrointestinal hemorrhage, unspecified (9) Vitamin D deficiency: Status: Acute Code(s): E55.9 - Vitamin D deficiency, unspecified (10) GERD (gastroesophageal reflux disease): Status: Acute Code(s): K21.9 - Gastro-esophageal reflux disease without esophagitis (11) Hypertension: Status: Chronic Code(s): I10 - Essential (primary) hypertension (12) Hyperlipidemia: Status: Acute Code(s): E78.5 - Hyperlipidemia, unspecified (13) Anxiety: Status: Acute Code(s): F41.9 - Anxiety disorder, unspecified (14) Nausea: Status: Acute Code(s): R11.0 - Nausea (15) Depression: Status: Acute Code(s): F32.A - Depression, unspecified (16) Hypokalemia: Status: Acute Code(s): E87.6 - Hypokalemia (17) Atrial fibrillation: Status: Acute Code(s): I48.91 - Unspecified atrial fibrillation (18) Chronic obstructive pulmonary disease: Status: Chronic Code(s): J44.9 - Chronic obstructive pulmonary disease, unspecified (19) Obstructive sleep apnea: Status: Acute Code(s): G47.33 - Obstructive sleep apnea (adult) (pediatric) Plan 76 year old female with below past medical history significant for stage 4a ovarian cancer, underwent CHENTE, BSO, debulking surgery 04/27/2022 at [facility], postoperative course complicated by lower gastrointestinal bleeding, admitted to TCU with debility, here for rehabilitation, strengthening, prior to discharge home with . Debility - PT/OT. Pain - Tylenol 1000mg q6 prn pain (1-5), Motrin 600mg q6h prn pain (6-10). Bowel - Miralax 17gm daily, Colace 100mg bid, MOM 30ml daily prn. Adult immunization - Administer pneumonia vaccine, covid19 vaccine, flu vaccine as appropriate. DVT prophylaxis - Lovenox 40mg sc daily. COPD - Fluticasone/salmeterol 1 puff q12, Albuterol MDI 2 puff q4h prn. Hypertension - Sotalol 120mg bid, Amlodipine 7.5mg daily. Depression - Duloxetine 60mg qhs, stable chronic buttermaker continuous churn use, GDR not recommended. Vitamin D deficiency - D2 1.25mg qweek. Hyperlipidemia - Zetia 10mg daily, Fenofibrate 48mg qhs. Chronic diastolic congestive heart failure - Sotalol 120mg bid, Lisinopril 40mg daily, Furosemide 40mg daily. Hypomagnesemia - Magnesium chloride 128mg daily. Diabetes Mellitus II - Metformin 500mg bid. GERD - Pantoprazole 40mg bid. Hypokalemia KCL 20meq bidcm. Atrial fibrillation - Sotalol 120mg bid, Xarelto on hold due to lower GI bleed. Medications at Discharge Home Medications compress.stocking,knee,reg,lrg #2 ea 05/06/19 lancing device #1 ea 12/29/20 metformin 500 mg tablet 500 mg PO BID blood sugars 02/11/22 magnesium oxide 400 mg PO DAILY supplement 04/08/22 cholecalciferol (vitamin D3) 1,250 mcg (50,000 unit) tablet 50,000 unit PO QWEEK supplement 05/04/22 docusate sodium 100 mg capsule (Colace) 100 mg PO BID bowels 05/04/22 duloxetine 60 mg capsule,delayed release 60 mg PO QDAY depression 05/04/22 ezetimibe 10 mg tablet (Zetia) 10 mg PO QDAY cholesterol 05/04/22 fenofibrate micronized 67 mg capsule 67 mg PO QPM fiber 05/04/22 fluticasone furoate 200 mcg-vilanterol 25 mcg/dose inhalation powder (Breo Ellipta) 1 inh inhalation QDAY breathing 05/04/22 potassium chloride 20 mEq tablet,extended release(part/cryst) (Klor-Con M) 20 meq PO BID supplement 05/04/22 sotalol 120 mg tablet 120 mg PO BID BP 05/04/22 acetaminophen 500 mg tablet 1,000 mg PO Q6H PRN Pain Score 1-5 #0 tabs 05/16/22 buspirone 15 mg tablet 15 mg PO TID #0 tabs 05/16/22 pantoprazole 40 mg tablet,delayed release 40 mg PO BID #0 tabs 05/16/22 rivaroxaban 20 mg tablet (Xarelto) 20 mg PO DINNER #0 tabs 05/16/22 Hospital Course Operations hysterectomy (BSO, debulking surgery.) CHENTE Procedures None Summary of Care Provided Minutes Spent on Discharge: 35 Hospital Course: 76 year old female with below past medical history significant for stage 4a ovarian cancer, underwent CHENTE, BSO, debulking surgery 04/27/2022 at [facility], postoperative course complicated by lower gastrointestinal bleeding, admitted to TCU with debility, here for rehabilitation, strengthening, prior to discharge home with . Discharge home alone 05/18/2022, [facility] PT/OT, Front wheeled walker. Physical Exam Const alert General Appearance: cooperative HEENT normocephalic Eyes PERRL and EOMs intact bilaterally Neck supple, no JVD and no carotid bruits Resp normal respiratory effort, normal air movement and clear to auscultation bilaterally Cardio regular rate and regular rhythm GI normal to inspection, nondistended, normoactive bowel sounds, non-tender and non-distended Extremity normal capillary refill General Extremity: Negative for edema Skin no rashes or lesions noted General Skin Exam: no breakdown Psych affect normal Appearance: appropriate Weight / BMI Weight Weight: 82.917 kg Body Mass Index (BMI) 34.3 ABG / Lab / Microbiology Data Result Diagrams: 05/12/22 05:15 05/13/22 05:17 Laboratory: Laboratory Results - last 24 hr 05/16/22 05:57: POC Glucose 145 H Microbiology: Microbiology 05/05/22 00:42 Nasal Secretion SARS-CoV-2 Antigen (Rapid) - Final D/C Instructions Discharge Diet: No restrictions Discharge Activity: Return to Normal Activity, May Shower and Use Walker Weight Bearing Status: Weight bearing as tolerated Call your doctor if you observe: Fever of 101 or Higher, Inability to urinate, Inability to have a bowel movement, Shortness of breath, Dizziness, Fainting spells, Swelling in the ankles, Chest pain and Uncontrolled pain Additional Instructions: Discharge home alone 05/18/2022, [facility] PT/OT, Front wheeled walker. Please Follow Up With: Ezekiel Ochoa, DO When: As scheduled. Meaningful Use Info Meaningful Use Diagnoses (Choose all that apply): None applicable Discharge Plan Admission Admit Date/Time: 05/04/22 16:48 Primary Reason for Your Visit: Debility. Attending Provider: Gaetano Mcmullen Chi Primary Care Provider: Quique Mims Consulting Providers: Manjula Sampson ; Iker Germain ; Minna Reis ; Gabriela Locke ; Ana María Andrews [employer] FOUNTAIN CLERK ; Donte Abdi Instructions Additional Instructions / Restrictions: Discharge home alone 05/18/2022, [facility] PT/OT, Front wheeled walker. Discharge Orders/Prescriptions Prescriptions: New acetaminophen 500 mg Tablet 1,000 mg PO Q6H PRN (Reason: Pain Score 1-5) Qty: 0 0RF pantoprazole 40 mg Tablet,Delayed Release (Dr/Ec) 40 mg PO BID Qty: 0 0RF buspirone 15 mg Tablet 15 mg PO TID Qty: 0 0RF Xarelto 20 mg Tablet 20 mg PO DINNER Qty: 0 0RF Continued magnesium oxide 400 mg magnesium capsule 400 mg PO DAILY metformin 500 mg tablet 500 mg PO BID Rx Instructions: May increase to 1000 mg per day after chemo if needed docusate sodium [Colace] 100 mg Capsule 100 mg PO BID fenofibrate micronized 67 mg capsule 67 mg PO QPM sotalol 120 mg tablet 120 mg PO BID potassium chloride [Klor-Con M20] 20 mEq tablet,ER particles/crystals 20 meq PO BID ezetimibe [Zetia] 10 mg tablet 10 mg PO QDAY duloxetine 60 mg capsule,delayed release(DR/EC) 60 mg PO QDAY cholecalciferol (vitamin D3) 1,250 mcg (50,000 unit) tablet 50,000 unit PO QWEEK fluticasone furoate-vilanterol [Breo Ellipta] 200-25 mcg/dose blister with device 1 inh inhalation QDAY Rx Instructions: after inhalation, rinse mouth with water and spit out; do not swallow Discontinued multivitamin tablet,chewable 1 tab PO DAILY loperamide 2 mg capsule 2 mg PO Q6H PRN (Reason: bowels) alendronate 70 mg tablet 70 mg PO QMONTH diphenhydramine HCl [Benadryl] 25 mg capsule 25 mg PO Q6H PRN (Reason: Itching) lidocaine-prilocaine 2.5-2.5 % cream 1 applic topical Label Comments: APPLY TO PORT SITE 60 MINUTES PRIOR TO ACCESSING carboplatin 10 mg/mL solution continuous IV infusion promethazine 25 mg Tablet 25 mg PO Q6H PRN (Reason: Nausea) dexamethasone 4 mg Tablet 20 mg PO PRN PRN (Reason: CHEMO) polyethylene glycol 3350 [Miralax] 17 gram Powder In Packet 17 g PO DAILY acetaminophen 650 mg Tablet 650 mg PO Q6H PRN (Reason: Pain) ibuprofen 600 mg Tablet 600 mg PO Q6H PRN (Reason: Pain) enoxaparin [Lovenox] 40 mg/0.4 mL Syringe 40 mg SUBCUT DAILY furosemide [Lasix] 40 mg tablet 40 mg PO DAILY amlodipine 5 mg tablet 7.5 mg PO DAILY albuterol sulfate [Ventolin HFA] 90 mcg/actuation HFA aerosol inhaler 2 puff inhalation Q4H PRN (Reason: shortness of breath or wheezing) lisinopril 40 mg tablet 40 mg PO DAILY buspirone 15 mg tablet 15 mg PO TID rivaroxaban 20 mg tablet 20 mg PO DAILY Label Comments: Blood thinner lorazepam 0.5 mg tablet 0.5 mg PO BID PRN (Reason: anxiety) Qty: 20 0RF pantoprazole 40 mg tablet,delayed release (DR/EC) See Rx Instructions .ROUTE .COMPLEX Qty: 180 2RF Dose Instruction: TAKE 1 TABLET BY MOUTH TWICE A DAY Rx Instructions: TAKE 1 TABLET BY MOUTH TWICE A DAY No Action (DME) compress.stocking,knee,reg,lrg Misc See Rx Instructions .ROUTE .MEDSUPPLY Qty: 2 1RF Rx Instructions: wear daily for venous insufficiency 20-30 mmHg (DME) lancing device Misc See Rx Instructions .ROUTE .MEDSUPPLY Qty: 1 0RF Rx Instructions: As directed Referrals / Follow Up: Quique Mims MD [Primary Care Provider] - Disposition Disposition (needs filled in before D/C Order can be placed): Home Health Service
[2022-05-16 20:15] VITALS: O2SAT 98
[2022-05-16] MEDS: Petrolatum 33% Tube 1 APPLIC TOPICAL (20:15)
[2022-05-16] MEDS: DULoxetine Hcl 60 MG Capsule PO (20:21)
[2022-05-16] MEDS: Fenofibrate 48 MG Tablet PO (20:21)
[2022-05-17 04:20] VITALS: BP 123/55; PULSE 76
[2022-05-17] MEDS: Docusate Sodium 100 MG Capsule PO (04:26)
[2022-05-17] MEDS: Sotalol Hydrochloride 80 MG Tablet 120 MG PO ×2 (04:26→17:21)
[2022-05-17] MEDS: Magnesium Chloride 64 MG Delay Rel.Tablet 128 MG PO (04:26)
[2022-05-17] MEDS: Ezetimibe 10 MG Tablet PO (04:26)
[2022-05-17] MEDS: Pantoprazole Sodium 40 MG Tablet PO ×2 (04:26→17:21)
[2022-05-17] MEDS: busPIRone 15 MG TABLET PO ×3 (04:28→21:49)
[2022-05-17] MEDS: Glucerna Shake 120 ML LIQUID PO ×4 (04:29→21:48)
[2022-05-17] MEDS: Fluticasone/Salmeterol 232-14 Inhaler 1 PUFF INHALATION (04:31)
[2022-05-17] MEDS: Menthol/Lanolin/Calamine/Znox 113 GM Tube 1 APPLIC TOPICAL ×2 (04:32→17:22)
[2022-05-17] MEDS: Nystatin Powder 15gm Bottle 1 APPLIC TOPICAL ×2 (04:32→17:24)
[2022-05-17 07:00] LABS: Bedside Glucose 127 mg/dL (74-106)
--- NOTE | 2022-05-17 08:07 | MDS.RN ---
Information for the mds was obtained from review of the clinical record, interview of resident, staff, and direct observation of resident's care.
[2022-05-17] MEDS: metFORMIN HCl 500 MG Tablet PO ×2 (08:33→17:21)
[2022-05-17] MEDS: Potassium Chloride Oral Tablet 20 MEQ PO ×2 (08:33→17:21)
[2022-05-17 08:35] VITALS: PULSE 79; RESP 18; O2SAT 99
[2022-05-17 13:59] VITALS: BP 118/58; PULSE 76; RESP 16; TEMP 36.1; O2SAT 98
--- NOTE | 2022-05-17 15:41 | CASEMGMT ---
Social Work BIMS and PHQ-9 completed for MDS assessment. Tabatha Burgos, CLINICAL LABORATORY AIDE PROJECT HIRE
[2022-05-17] MEDS: Rivaroxaban 20 MG Tablet PO (17:21)
[2022-05-17] MEDS: Acetaminophen 500 MG Tablet 1000 MG PO (17:24)
[2022-05-17] MEDS: DULoxetine Hcl 60 MG Capsule PO (21:49)
[2022-05-17] MEDS: Fenofibrate 48 MG Tablet PO (21:50)
[2022-05-17] MEDS: Petrolatum 33% Tube 1 APPLIC TOPICAL (21:50)
[2022-05-18] MEDS: Glucerna Shake 120 ML LIQUID PO ×2 (06:45→12:48)
[2022-05-18] MEDS: Sotalol Hydrochloride 80 MG Tablet 120 MG PO (06:46)
[2022-05-18] MEDS: Fluticasone/Salmeterol 232-14 Inhaler 1 PUFF INHALATION (06:46)
[2022-05-18] MEDS: busPIRone 15 MG TABLET PO ×2 (06:47→12:48)
[2022-05-18] MEDS: Glycerin/Hypromellose/PEG400 15 ml Bottle 2 DRP EACH EYE (06:47)
[2022-05-18] MEDS: Magnesium Chloride 64 MG Delay Rel.Tablet 128 MG PO (06:48)
[2022-05-18] MEDS: Ezetimibe 10 MG Tablet PO (06:48)
[2022-05-18] MEDS: Pantoprazole Sodium 40 MG Tablet PO (06:48)
[2022-05-18] MEDS: Menthol/Lanolin/Calamine/Znox 113 GM Tube 1 APPLIC TOPICAL (06:50)
[2022-05-18] MEDS: Nystatin Powder 15gm Bottle 1 APPLIC TOPICAL (06:50)
[2022-05-18 06:51] LABS: Bedside Glucose 123 mg/dL (74-106)
[2022-05-18] MEDS: Potassium Chloride Oral Tablet 20 MEQ PO (07:52)
[2022-05-18] MEDS: metFORMIN HCl 500 MG Tablet PO (07:52)
[2022-05-18 14:31] VITALS: BP 126/66; PULSE 82; RESP 18; TEMP 35.9
--- NOTE | 2022-05-18 14:40 | NURSING ---
D/c home at 1400 with daughter. Home meds and f/u appts reviewed. Discussed dx history and home going needs. Pt and daughter report understanding.
== END 2022-05-18 14:00 | disposition home health service (06) | DRG 949 ==
PROVIDERS: Admitting Provider Family Medicine Geriatric Medicine; PCP Internal Medicine; Visit Provider Family Medicine Geriatric Medicine
DX: Z48.3 Aftercare following surgery for neoplasm (principal); C56.9 Malignant neoplasm of unspecified ovary; R18.0 Malignant ascites; C79.9 Secondary malignant neoplasm of unspecified site; K92.2 Gastrointestinal hemorrhage, unspecified; I50.32 Chronic diastolic (congestive) heart failure; I11.0 Hypertensive heart disease with heart failure; I48.0 Paroxysmal atrial fibrillation; E11.9 Type 2 diabetes mellitus without complications; J44.9 Chronic obstructive pulmonary disease, unspecified; F41.9 Anxiety disorder, unspecified; E78.5 Hyperlipidemia, unspecified; E55.9 Vitamin D deficiency, unspecified; I25.10 Atherosclerotic heart disease of native coronary artery without angina pectoris; K21.9 Gastro-esophageal reflux disease without esophagitis; G47.33 Obstructive sleep apnea (adult) (pediatric); I25.2 Old myocardial infarction; E87.6 Hypokalemia; L84 Corns and callosities; L60.3 Nail dystrophy; Z79.01 Long term (current) use of anticoagulants; Z79.84 Long term (current) use of oral hypoglycemic drugs; F32.A Depression, unspecified; Z79.899 Other long term (current) drug therapy; Z28.21 Immunization not carried out because of patient refusal
CPT/HCPCS: 36415; 80048; 82962; 85025; 87426; 93005; 97110; 97116; 97162; 97166; 97530; 97535; 97802

== ENCOUNTER → 2022-05-30 | Outpatient (CLI) | payer MEDICARE, MEDICAID, SELFPAY ==
[2022-05-30 11:03] LABS: Anion Gap 5 (5-15); BUN 22 mg/dL (7-18); BUN/Creat Ratio 29.9 RATIO (10-20); Calcium,Total 8.9 mg/dL (8.5-10.1); Chloride 105 mmol/L (98-107); Creatinine, Serum 0.74 mg/dL (0.55-1.02); EST Glomerular Filtration Rate 82 mL/min (>60); Est Glom Filt Rate - Afr Amer 99 mL/min (>60); Glucose 150 mg/dL (74-106); Potassium 4.1 mmol/L (3.5-5.1); Sodium Level 140 mmol/L (136-145)
== END | disposition home or self-care (01) ==
PROVIDERS: PCP Internal Medicine; Referring Provider Internal Medicine; Visit Provider Internal Medicine
DX: E87.6 Hypokalemia (principal)
CPT/HCPCS: 36415; 80048

== ENCOUNTER 2022-06-27 09:51 | Inpatient (IN) | payer MEDICARE, MEDICAID, OTHER, SELFPAY ==
[2022-06-27] VITALS (38 sets, daily range): BP systolic 106–166; BP diastolic 63–104; PULSE 62–126; RESP 13–27; TEMP 36.3–36.7; O2SAT 96–100; BMI 33.5; BMI 33.0
--- NOTE | 2022-06-27 10:03 | EKG12_ITS ---
Test Reason : PALP Blood Pressure : / mmHG Vent. Rate : 126 BPM Atrial Rate : 000 BPM P-R Int : 000 ms QRS Dur : 074 ms QT Int : 362 ms P-R-T Axes : 000 047 002 degrees QTc Int : 524 ms Accelerated Junctional rhythm with retrograde conduction Abnormal ECG When compared with ECG of 13-MAY-2022 19:38, Junctional rhythm has replaced Sinus rhythm Vent. rate has increased BY 56 BPM T wave inversion now evident in Inferior leads Confirmed by NAHUM WOLFE, CRISTI ([id number]), acquisitions editor MONTY ARIZMENDI ([id number]) on 06/29/2022 1:14:02 PM Referred By: ARCHIE Confirmed By:CRISTI SIDHU MD
--- NOTE | 2022-06-27 10:28 | EKG12_ITS ---
Test Reason : RHYTHM CHANGE Blood Pressure : / mmHG Vent. Rate : 062 BPM Atrial Rate : 248 BPM P-R Int : 000 ms QRS Dur : 090 ms QT Int : 460 ms P-R-T Axes : 087 059 056 degrees QTc Int : 466 ms Atrial flutter with 4:1 A-V conduction Abnormal ECG Confirmed by LINDA WOLFE, LOBO ([id number]), technical writer and editor MONTY ARIZMENDI ([id number]) on 06/29/2022 8:57:43 AM Referred By: Confirmed By:LOBO MCKEON MD
--- NOTE | 2022-06-27 10:30 | EDS_ITS ---
HPI History of Present Illness Chief Complaint: Palpitations Informant: patient and family Onset/Context/Timing Onset: Days (6) Context: Sudden Onset Timing: Continuous Quality: Fatigue Location: Generalized Worsened by: Nothing Relieved by: Nothing Narrative Narrative: Patient presents with atrial fibrillation that began 6 days ago. Patient states that she just feels tired over the last 6 days. Patient states that her home health nurse checked her pulse oximeter and noticed that her heart rate was fast a few days ago. Patient denied any symptoms. Patient followed up with her system safety engineer today who noticed that she was in atrial fibrillation and referred to the emergency department. Patient states she had chemotherapy recently. Patient states this was started on 06/13/2022. Patient states she developed some hives a few days ago. Patient denies any difficulty breathing or difficulty swallowing. [facility] Medical History Abdominal pain Acute exacerbation of chronic obstructive pulmonary disease (COPD) Acute respiratory failure with hypoxia and hypercarbia Anxiety Ascites Atherosclerotic heart disease of [place] coronary artery without angina pectoris Atrial fibrillation with RVR CAD (coronary artery disease) CAD (coronary artery disease) COPD (chronic obstructive pulmonary disease) Debility Diarrhea Diastolic congestive heart failure DM2 (diabetes mellitus, type 2) Essential hypertension Flu vaccine need Hiatal hernia HLD (hyperlipidemia) HTN (hypertension) Hypokalemia Junctional rhythm Long-term use of high-risk medication Morbid obesity NSTEMI (non-ST elevated myocardial infarction) SEVEN (obstructive sleep apnea) Ovarian cancer PAF (paroxysmal atrial fibrillation) Panic disorder Paroxysmal atrial fibrillation with rapid ventricular response Pelvic mass Port-A-Cath in place Pulmonary HTN Sepsis SOB (shortness of breath) Spastic colon Streptococcal pneumonia Vitamin D deficiency Home Medications compress.stocking,knee,reg,lrg #2 ea 05/06/19 [Rx Last Taken Unknown] magnesium oxide 400 mg PO DAILY #90 caps 07/01/19 [Rx Last Taken Unknown] lancing device #1 ea 12/29/20 [Rx Last Taken Unknown] metformin 500 mg tablet 500 mg PO BID blood sugars 02/11/22 [History Last Taken Unknown] magnesium oxide 400 mg PO DAILY supplement 04/08/22 [History Last Taken Unknown] cholecalciferol (vitamin D3) 1,250 mcg (50,000 unit) tablet 50,000 unit PO QWEEK supplement 05/04/22 [History Last Taken Unknown] docusate sodium 100 mg capsule (Colace) 100 mg PO BID PRN Constipation 05/04/22 [History Last Taken Unknown] duloxetine 60 mg capsule,delayed release 60 mg PO QDAY depression 05/04/22 [History Last Taken Unknown] potassium chloride 20 mEq tablet,extended release(part/cryst) (Klor-Con M) 20 meq PO DAILY supplement 05/04/22 [History Last Taken Unknown] acetaminophen 500 mg tablet 1,000 mg PO Q6H PRN Pain Score 1-5 #0 tabs 05/16/22 [Rx Last Taken Unknown] buspirone 15 mg tablet 15 mg PO TID #0 tabs 05/16/22 [Rx Last Taken Unknown] albuterol sulfate 90 mcg/actuation aerosol inhaler (Ventolin HFA) 1 inh inhalation ONCE 05/23/22 [History Last Taken Unknown] alendronate 70 mg tablet (Fosamax) 70 mg PO QMONTH 05/23/22 [History Last Taken Unknown] ezetimibe 10 mg tablet (Zetia) 10 mg PO QDAY cholesterol #90 tabs 06/03/22 [Rx Last Taken Unknown] fluticasone furoate 200 mcg-vilanterol 25 mcg/dose inhalation powder (Breo Ellipta) 1 inh inhalation QDAY breathing #60 ea 06/10/22 [Rx Last Taken Unknown] pantoprazole 40 mg tablet,delayed release 40 mg PO BID #180 tabs 06/10/22 [Rx Last Taken Unknown] rivaroxaban 20 mg tablet (Xarelto) 20 mg PO DINNER #90 tabs 06/10/22 [Rx Last Taken Unknown] furosemide 40 mg tablet 20 mg PO DAILY 06/15/22 [History Last Taken Unknown] sotalol 120 mg tablet 120 mg PO BID BP #180 tabs 06/15/22 [Rx Last Taken Unknown] fenofibrate micronized 67 mg capsule 67 mg PO QPM fiber #90 caps 06/23/22 [Rx Last Taken Unknown] fluticasone furoate 200 mcg-vilanterol 25 mcg/dose inhalation powder (Breo Ellipta) 1 inh inhalation DAILY 06/27/22 [History Last Taken Unknown] loperamide 2 mg tablet 2 mg PO Q6H PRN Diarrhea 06/27/22 [History Last Taken Unknown] lorazepam 0.5 mg tablet (Ativan) 0.5 mg PO BID PRN Anxiety #30 tabs 06/27/22 [Rx Last Taken Unknown] Allergy/AdvReac Type Severity Reaction Status Date / Time amoxicillin Allergy Severe hives Verified 06/27/22 09:53 chlorhexidine Allergy Unknown red skin Verified 06/27/22 09:53 morphine Allergy Unknown headaches Verified 06/27/22 09:53 labetalol Allergy Unknown Verified 06/27/22 09:53 pitavastatin [From Livalo] Allergy Other Verified 06/27/22 09:53 simvastatin [From Zocor] Allergy Other Verified 06/27/22 09:53 atorvastatin [From Lipitor] AdvReac Unknown myalgias Verified 06/27/22 09:53 budesonide [From Symbicort] AdvReac Other Verified 06/27/22 09:53 formoterol [From Symbicort] AdvReac Other Verified 06/27/22 09:53 hydrocodone [From Vicodin] AdvReac Other Verified 06/27/22 09:53 Zvdynbq-[id number]-KoI Reductase AdvReac Other Verified 06/27/22 09:53 Inhibitor [Wyajsig-Ppl-Axv Reductase Inhibitor] Family History Mother Cancer leukemia Father Respiratory disease Grandfather Myocardial infarction Grandmother Myocardial infarction Son Diabetes Surgical History History of cataract surgery History of colonoscopy History of exploratory laparotomy History of hysterectomy History of surgery on right wrist History of tonsillectomy and adenoidectomy Social History household members: spouse Smoking Status: Never smoker alcohol intake: never substance use type: does not use caffeine: Yes Type: coffee Number of servings: 1 what type of physical activity do you participate in: none seatbelt use: always do you feel safe at home: Yes ROS ROS ED Constitutional Constitutional ED: Denies chills or fever(s) Eyes Eyes: Denies blurry vision or change in vision ENT ENT ED: Denies rhinorrhea or sore throat Cardiovascular Cardiovascular: Denies chest pain or palpitations Respiratory/Chest Respiratory/Chest: Denies cough or dyspnea Gastrointestinal Gastrointestinal: Denies nausea or vomiting Genitourinary Genitourinary ED: Denies dysuria or hematuria Musculoskeletal Musculoskeletal: Reports back pain; Denies neck pain Integumentary Denies abscess or rash Neurologic Neurologic: Denies headache(s) or weakness Allergic/Immunologic Allergic/Immunologic ED: Reports urticaria; Denies mouth swelling EXAM Physical Exam Const Vital Signs: 06/27/22 09:52 06/27/22 10:38 06/27/22 10:48 Temperature 97.4 F L Temperature Source Temporal Pulse Rate 126 H 126 H 84 Respiratory Rate 18 20 H 20 H Blood Pressure 151/104 H 106/63 Blood Pressure Mean 119 77 Pulse Ox 99 97 97 Oxygen Delivery Method Room Air Room Air Room Air 06/27/22 10:55 06/27/22 11:53 06/27/22 12:09 Temperature Temperature Source Pulse Rate 74 84 108 H Respiratory Rate 19 H 25 H Blood Pressure 106/63 135/76 H 135/76 H Blood Pressure Mean 77 95 95 Pulse Ox 96 96 Oxygen Delivery Method Room Air Room Air 06/27/22 12:10 06/27/22 12:52 06/27/22 13:10 Temperature Temperature Source Pulse Rate 102 H 94 117 H Respiratory Rate 22 H 23 H Blood Pressure 135/88 H Blood Pressure Mean 103 Pulse Ox 97 Oxygen Delivery Method Room Air 06/27/22 14:20 Temperature Temperature Source Pulse Rate 111 H Respiratory Rate 27 H Blood Pressure 143/86 H Blood Pressure Mean 105 Pulse Ox 96 Oxygen Delivery Method Room Air Positive well nourished, well developed and obese General Appearance ED: well developed and NAD Nutritional Appearance: obese HEENT Reports moist mucous membranes Neck supple and no JVD Resp normal respiratory effort and clear to auscultation bilaterally Cardio Rate: tachycardic Rhythm: abnormal rhythm irregularly irregular GI normal to inspection, nondistended, normoactive bowel sounds and non-tender Palpation: soft Extremity normal to inspection General Extremety ED: Negative for edema or tenderness General Extremity: Negative for edema Neuro oriented x3, CN's II-XII intact bilaterally and no sensory deficits noted Sensorium / Orientation: alert Motor Exam: strength 5/5 throughout Psych mental status grossly normal Skin no rashes or lesions noted MDM MDM MDM Narrative Medical decision making narrative: EKG was obtained. On my interpretation, it shows atrial fibrillation with a rate of 126. QRS interval was within normal limits. QTc interval was slightly prolonged at 524 ms. [place] was normal. There are no acute ST or T wave changes. Patient was given a dose of Cardizem here. Patient blood pressure dropped to 106/63 so the Cardizem drip was held. CBC shows a white blood cell count of 3.3. Hemoglobin was 10.5 and hematocrit 33.6. PT was INR and PTT were within normal limits. Comprehensive metabolic profile was within normal limits. High- sensitivity troponin was normal at 14. PA and lateral chest x-ray was obtained. There are 2 views. On my interpretation, lung shukla are clear. There is normal cardiac silhouette. Bony thorax is normal. There is no acute process noted. Radiologist also interpreted the x-ray and agrees. 2-hour repeat high- sensitivity troponin was also normal at 14. Patient's heart rate started to go back up into the 110s and 120s. Cardizem drip was started. Case was discussed with Dr. Sánchez. He recommended starting the drip and consulting Dr. Perez tomorrow. Case was discussed with the hospitalist. She will admit the patient to her service. Patient understood and was agreeable with the plan. All questions were answered. Lab Data Attestation: I reviewed the patient's lab results. Labs: Laboratory Results - last 24 hr 06/27/22 06/27/22 06/27/22 10:35 10:35 10:35 WBC 3.3 L RBC 3.73 L Hgb 10.5 L Hct 33.6 L MCV 90.1 MCH 28.2 MCHC 31.3 L RDW Std Deviation 45.0 H RDW Coeff of Nabor 13.7 Plt Count 243 MPV 10.2 Immature Gran % (Auto) 0.600 Neut % (Auto) 37.4 L Lymph % (Auto) 39.4 [place] % (Auto) 21.1 H Eos % (Auto) 1.2 Baso % (Auto) 0.3 Absolute Neuts (auto) 1.2 L Absolute Lymphs (auto) 1.29 Nucleated RBC % 0 PT 14.7 INR 1.2 APTT 32.6 Sodium 141 Potassium 4.0 Chloride 106 Carbon Dioxide 27.0 Anion Gap 8 BUN 22 H Creatinine 0.70 Estim Creat Clear Calc 42.62 Est GFR (MDRD) Af Amer 106 Est GFR (MDRD) Non-Af 87 BUN/Creatinine Ratio 31.6 H Glucose 99 Calcium 8.9 Total Bilirubin 0.20 AST 14 L ALT 21 Alkaline Phosphatase 63 Troponin I High Sens 14 Total Protein 6.8 Albumin 3.3 Globulin 3.5 Albumin/Globulin Ratio 0.9 06/27/22 13:25 WBC RBC Hgb Hct MCV MCH MCHC RDW Std Deviation RDW Coeff of [place]abor Plt Count MPV Immature Gran % (Auto) Neut % (Auto) Lymph % (Auto) [place] % (Auto) Eos % (Auto) Baso % (Auto) Absolute Neuts (auto) Absolute Lymphs (auto) Nucleated RBC % PT INR APTT Sodium Potassium Chloride Carbon Dioxide Anion Gap BUN Creatinine Estim Creat Clear Calc Est GFR (MDRD) Af Amer Est GFR (MDRD) Non-Af BUN/Creatinine Ratio Glucose Calcium Total Bilirubin AST ALT Alkaline Phosphatase Troponin I High Sens 14 Total Protein Albumin Globulin Albumin/Globulin Ratio Radiography Chest X-Ray - ED: 2 View, Read by ED Physician, Read by Radiologist and No Acute Disease Diagnostic Testing: Clinical Impression(s) from Imaging Studies Chest X-Ray 06/27/22 11:00 IMPRESSION: No acute abnormality is seen. Electronically Signed: Omar Reyes MD at 11:11 EST Reading Location ID and State: [address] [place] [address] , Service support , EKG Initial EKG: Attestation: I personally reviewed and interpreted this EKG as follows: Interpretation: No Acute Injury Pattern and Atrial Fibrillation (126) Prior EKG tracings: available for review Prior: Changed (Compared to EKG from 05/13/2022, the atrial fibrillation is new) Discharge Plan Triage Chief Complaint: Palpitations ED Provider: Rogelio Araya Dx/Rx/DC Orders Clinical Impression: Atrial fibrillation with RVR, DM2 (diabetes mellitus, type 2), Ovarian cancer Prescriptions: No Action (DME) compress.stocking,knee,reg,lrg Misc See Rx Instructions .ROUTE .MEDSUPPLY Qty: 2 1RF Rx Instructions: wear daily for venous insufficiency 20-30 mmHg magnesium oxide 400 mg magnesium capsule 400 mg PO DAILY loperamide 2 mg tablet 2 mg PO Q6H PRN (Reason: Diarrhea) albuterol sulfate [Ventolin HFA] 90 mcg/actuation HFA aerosol inhaler 1 inh inhalation ONCE alendronate [Fosamax] 70 mg tablet 70 mg PO QMONTH metformin 500 mg tablet 500 mg PO BID Rx Instructions: May increase to 1000 mg per day after chemo if needed furosemide 40 mg tablet 20 mg PO DAILY docusate sodium [Colace] 100 mg Capsule 100 mg PO BID PRN (Reason: Constipation) potassium chloride [Klor-Con M20] 20 mEq tablet,ER particles/crystals 20 meq PO DAILY duloxetine 60 mg capsule,delayed release(DR/EC) 60 mg PO QDAY cholecalciferol (vitamin D3) 1,250 mcg (50,000 unit) tablet 50,000 unit PO QWEEK acetaminophen 500 mg Tablet 1,000 mg PO Q6H PRN (Reason: Pain Score 1-5) Qty: 0 0RF buspirone 15 mg Tablet 15 mg PO TID Qty: 0 0RF fluticasone furoate-vilanterol [Breo Ellipta] 200-25 mcg/dose blister with device 1 inh INHALATION DAILY Label Comments: INHALE 1 PUFF INTO THE LUNGS ONCE DAILY. RINSE MOUTH AFTER AND SPIT OUT (DME) lancing device Misc See Rx Instructions .ROUTE .MEDSUPPLY Qty: 1 0RF Rx Instructions: As directed ezetimibe [Zetia] 10 mg tablet 10 mg PO QDAY Qty: 90 3RF fluticasone furoate-vilanterol [Breo Ellipta] 200-25 mcg/dose blister with device 1 inh inhalation QDAY Qty: 60 1RF Rx Instructions: after inhalation, rinse mouth with water and spit out; do not swallow pantoprazole 40 mg tablet,delayed release (DR/EC) 40 mg PO BID Qty: 180 3RF Xarelto 20 mg tablet 20 mg PO DINNER Qty: 90 0RF sotalol 120 mg tablet 120 mg PO BID Qty: 180 1RF fenofibrate micronized 67 mg capsule 67 mg PO QPM Qty: 90 0RF lorazepam [Ativan] 0.5 mg tablet 0.5 mg PO BID PRN (Reason: Anxiety) Qty: 30 0RF Primary Care Provider: Quique Mims Referrals: Quique Mims MD [Primary Care Provider] - Disposition Disposition: Acute Care Hospital [facility]
[2022-06-27] MEDS: dilTIAZem 25 MG/5 ML Vial IV BOLUS (10:41)
[2022-06-27 10:44] LABS: Absolute Lymphocyte Count 1.29 X10^3/uL (0.83-4.51); Absolute Neutrophil Count 1.2 X10^3/uL (2.0-7.7); Basophil# 0.01 X10^3/uL; Basophil% 0.3 % (0-1); Eosinophil# 0.04 X10^3/uL; Eosinophils% 1.2 % (0-5); Hematocrit 33.6 % (37-47); Hemoglobin 10.5 g/dL (12.0-15.0); Lymphocyte # 1.29 X10^3/ul (0.83-4.51); Lymphocyte % 39.4 % (19-41); Mean Corp Hgb Conc 31.3 g/dL (32-36); Mean Corpuscular Hgb 28.2 pg (27.0-32.0); Mean Corpuscular Volume 90.1 fL (81-99); Mean Platelet Vol. 10.2 fl (6.2-12.0); Monocyte# 0.69 X10^3/uL; Monocyte% 21.1 % (0-10); NRBC Flagged by Analyzer 0 % (0-5); Neutrophil # 1.22 X10^3/uL (2.7-7.7); Neutrophil % 37.4 % (47-70); Platelet Count 243 K/mm3 (150-450); RBC Distribution Width CV 13.7 % (11.6-14.6); Red Blood Count 3.73 M/mm3 (4.2-5.4); White Blood Count 3.3 K/mm3 (4.4-11.0)
[2022-06-27 10:49] LABS: International Normalized Ratio 1.2; Prothrombin Time (Protime)PT. 14.7 SECONDS (11.7-14.9)
[2022-06-27 10:50] LABS: Partial Thromboplast Time 32.6 Seconds (24.1-36.2)
--- NOTE | 2022-06-27 11:00 | RAD_ITS ---
STUDY: X-RAY CHEST REASON FOR EXAM: Female, 76 years old. Tachycardia. Dizziness. History of atrial fibrillation. TECHNIQUE: PA and lateral views of the chest. COMPARISON: Comparison is made with prior study dated 01/19/2022. FINDINGS: A right-sided portacatheter is seen with the tip in the midportion of the superior vena cava. EKG electrodes are seen. Hyperinflation. Minimal increased markings at the lung bases slightly more prominent on the left side suggestive of bibasilar scarring. There is no demonstrated pleural abnormality. Normal size heart. Normal mediastinum and ricardo. Normal visualized pulmonary arteries. Calcification of the mitral valve annulus. There are diffuse degenerative changes of the visualized thoracic spine. Normal visualized ribs, clavicles, and shoulders. There is no demonstrated abnormality of the visualized soft tissue structures of the upper abdomen. RAD/Chest PA and Lateral IMPRESSION: No acute abnormality is seen. Electronically Signed: Omar Reyes MD at 11:11 EST ,
[2022-06-27 11:06] LABS: ALB/GLOB Ratio 0.9 RATIO (0.9-2.4); AST(SGOT) 14 U/L (15-37); Alanine Aminotransfer ALT/SGPT 21 U/L (13-56); Albumin, Serum 3.3 g/dL (3.2-5.0); Alkaline Phosphatase 63 U/L (45-117); Anion Gap 8 (5-15); BUN 22 mg/dL (7-18); BUN/Creat Ratio 31.6 RATIO (10-20); Calcium,Total 8.9 mg/dL (8.5-10.1); Chloride 106 mmol/L (98-107); EST Glomerular Filtration Rate 87 mL/min (>60); Est Glom Filt Rate - Afr Amer 106 mL/min (>60); Estimated Creatinine Clearance 42.62 ml/min; Globulin 3.5 g/dL (2.2-4.2); Glucose 99 mg/dL (74-106); Protein, Total 6.8 g/dL (6.4-8.2); Sodium Level 141 mmol/L (136-145); Troponin-I HS (w/2H Reflex) 14 pg/mL (3.0-54.0)
[2022-06-27 12:38] LABS: Reflex Troponin-HS? (from REC) Y
[2022-06-27 13:57] LABS: Troponin-I HS 14 pg/mL (3.0-54.0)
--- NOTE | 2022-06-27 14:31 | PCM.HP.STD ---
HPI - General General Date of Admission: 06/27/22 Date of Service: 06/27/22 Chief Complaint: A. fib?5 days HPI Narrative ANDREW VELAZQUEZ, is a 76 F who presents A. fib with RVR, noticed 5 days ago by her home health nurse. Patient has past medical history of paroxysmal atrial fibrillation, status post ablation about 3 years ago, on sotalol and Xarelto, CAD, hypertension, hyperlipidemia, who follows with [facility]. Patient also has history of ovarian cancer status post CHENTE/BSO, follows with [facility] oncology and is on chemotherapy. She last had chemotherapy on June 13, 2022. Her recent 2D echo in April 14 showed EF of 70%, stage III diastolic dysfunction Patient had gone into see her primary customs collector and told her customs collector that her heart rate was elevated. She denies any chest pain or dizziness or palpitations or shortness of breath or diaphoresis. She denies any orthopnea or PND. She lives with her and her daughter. Her vitals in the ED showed blood pressure 151/104, heart rate was 126, respiratory rate 18, temperature 97.4 F, oxygen sat was 99% on room air. Patient WBC count 3.3, hemoglobin 10.5, platelet count 243. Her CMP was unremarkable. Chest X-ray was unremarkable. [facility] Medical History Abdominal pain Acute exacerbation of chronic obstructive pulmonary disease (COPD) Acute respiratory failure with hypoxia and hypercarbia Anxiety Ascites Atherosclerotic heart disease of [place] coronary artery without angina pectoris Atrial fibrillation with RVR CAD (coronary artery disease) CAD (coronary artery disease) COPD (chronic obstructive pulmonary disease) Debility Diarrhea Diastolic congestive heart failure DM2 (diabetes mellitus, type 2) Essential hypertension Flu vaccine need Hiatal hernia HLD (hyperlipidemia) HTN (hypertension) Hypokalemia Junctional rhythm Long-term use of high-risk medication Morbid obesity NSTEMI (non-ST elevated myocardial infarction) SEVEN (obstructive sleep apnea) Ovarian cancer PAF (paroxysmal atrial fibrillation) Panic disorder Paroxysmal atrial fibrillation with rapid ventricular response Pelvic mass Port-A-Cath in place Pulmonary HTN Sepsis SOB (shortness of breath) Spastic colon Streptococcal pneumonia Vitamin D deficiency Home Medications compress.stocking,knee,reg,lrg #2 ea 05/06/19 [Rx Last Taken Unknown] magnesium oxide 400 mg PO DAILY #90 caps 07/01/19 [Rx Last Taken Unknown] lancing device #1 ea 12/29/20 [Rx Last Taken Unknown] metformin 500 mg tablet 500 mg PO BID blood sugars 02/11/22 [History Last Taken 06/27/22] magnesium oxide 800 mg PO DAILY supplement 04/08/22 [History Last Taken 06/26/22] cholecalciferol (vitamin D3) 1,250 mcg (50,000 unit) tablet 50,000 unit PO QWEEK supplement 05/04/22 [History Last Taken 06/24/22] docusate sodium 100 mg capsule (Colace) 100 mg PO BID PRN Constipation 05/04/22 [History Last Taken Unknown] duloxetine 60 mg capsule,delayed release 60 mg PO QDAY depression 05/04/22 [History Last Taken 06/26/22] potassium chloride 20 mEq tablet,extended release(part/cryst) (Klor-Con M) 20 meq PO DAILY supplement 05/04/22 [History Last Taken 06/27/22] acetaminophen 500 mg tablet 1,000 mg PO Q6H PRN Pain Score 1-5 #0 tabs 05/16/22 [Rx Last Taken 06/26/22] albuterol sulfate 90 mcg/actuation aerosol inhaler (Ventolin HFA) 1 inh inhalation ONCE SOB 05/23/22 [History Last Taken Unknown] alendronate 70 mg tablet (Fosamax) 70 mg PO QMONTH bone 05/23/22 [History Last Taken 05/07/22] ezetimibe 10 mg tablet (Zetia) 10 mg PO QDAY cholesterol #90 tabs 06/03/22 [Rx Last Taken 06/27/22] fluticasone furoate 200 mcg-vilanterol 25 mcg/dose inhalation powder (Breo Ellipta) 1 inh inhalation QDAY breathing #60 ea 06/10/22 [Rx Last Taken 06/26/22] furosemide 40 mg tablet 20 mg PO DAILY fluid 06/15/22 [History Last Taken 06/26/22] buspirone 15 mg tablet 15 mg PO TID mood 06/27/22 [History Last Taken 06/27/22] fenofibrate micronized 67 mg capsule 67 mg PO QPM cholesterol 06/27/22 [History Last Taken 06/26/22] loperamide 2 mg tablet 2 mg PO Q6H PRN Diarrhea 06/27/22 [History Last Taken Unknown] lorazepam 0.5 mg tablet (Ativan) 0.5 mg PO BID PRN Anxiety #30 tabs 06/27/22 [Rx Last Taken Unknown] pantoprazole 40 mg tablet,delayed release 40 mg PO BID GERD 06/27/22 [History Last Taken 06/27/22] rivaroxaban 20 mg tablet (Xarelto) 20 mg PO DINNER afib 06/27/22 [History Last Taken 06/26/22] sotalol 120 mg tablet 120 mg PO BID heart 06/27/22 [History Last Taken 06/27/22] Allergy/AdvReac Type Severity Reaction Status Date / Time amoxicillin Allergy Severe hives Verified 06/27/22 09:53 chlorhexidine Allergy Unknown red skin Verified 06/27/22 09:53 morphine Allergy Unknown headaches Verified 06/27/22 09:53 labetalol Allergy Unknown Verified 06/27/22 09:53 pitavastatin [From Livalo] Allergy Other Verified 06/27/22 09:53 simvastatin [From Zocor] Allergy Other Verified 06/27/22 09:53 atorvastatin [From Lipitor] AdvReac Unknown myalgias Verified 06/27/22 09:53 budesonide [From Symbicort] AdvReac Other Verified 06/27/22 09:53 formoterol [From Symbicort] AdvReac Other Verified 06/27/22 09:53 hydrocodone [From Vicodin] AdvReac Other Verified 06/27/22 09:53 Hxosddc-FAR-IdI Reductase AdvReac Other Verified 06/27/22 09:53 Inhibitor [Rqvloey-Yyb-Mjz Reductase Inhibitor] Family History Mother Cancer leukemia Father Respiratory disease Grandfather Myocardial infarction Grandmother Myocardial infarction Son Diabetes Surgical History History of cataract surgery History of colonoscopy History of exploratory laparotomy History of hysterectomy History of surgery on right wrist History of tonsillectomy and adenoidectomy Social History household members: spouse Smoking Status: Never smoker alcohol intake: never substance use type: does not use caffeine: Yes Type: coffee Number of servings: 1 what type of physical activity do you participate in: none seatbelt use: always do you feel safe at home: Yes ROS ROS Narrative Constitutional: Denies: Anorexia, Chills, Fever, Night Sweats, Weight Change Eyes: Denies: Blurred vision, Cataracts, Conjunctivae Inflammation, Pain, Redness, Vision Change HEENT: Denies: Difficulty Hearing, Difficulty Swallowing, Head Aches, Hearing Changes, Sinus Congestion, Sinus Drainage Cardiovascular: Denies: Chest Pain, Orthopnea, Palpitations Respiratory: Denies: Cough, Shortness of breath at rest, Sputum production Gastrointestinal: Denies: Abdominal Pain, Nausea, Vomiting Genitourinary: Denies: Dysuria Musculoskeletal: Denies: Joint Pain, Joint stiffness, Joint swelling, Joint Tenderness Skin: Denies: Rash, Wounds Neurological: Denies: Numbness, Tingling, Focal weakness Vital Signs Vital Signs Vital Signs: 06/27/22 09:52 06/27/22 10:38 06/27/22 10:48 Temperature 97.4 F L Temperature Source Temporal Pulse Rate 126 H 126 H 84 Respiratory Rate 18 20 H 20 H Blood Pressure 151/104 H 106/63 Blood Pressure Mean 119 77 Pulse Ox 99 97 97 Oxygen Delivery Method Room Air Room Air Room Air 06/27/22 10:55 06/27/22 11:53 06/27/22 12:09 Temperature Temperature Source Pulse Rate 74 84 108 H Respiratory Rate 19 H 25 H Blood Pressure 106/63 135/76 H 135/76 H Blood Pressure Mean 77 95 95 Pulse Ox 96 96 Oxygen Delivery Method Room Air Room Air 06/27/22 12:10 06/27/22 12:52 06/27/22 13:10 Temperature Temperature Source Pulse Rate 102 H 94 117 H Respiratory Rate 22 H 23 H Blood Pressure 135/88 H Blood Pressure Mean 103 Pulse Ox 97 Oxygen Delivery Method Room Air 06/27/22 14:20 Temperature Temperature Source Pulse Rate 111 H Respiratory Rate 27 H Blood Pressure 143/86 H Blood Pressure Mean 105 Pulse Ox 96 Oxygen Delivery Method Room Air Weight Weight: 88.541 kg Body Mass Index (BMI) 33.5 Physical Exam Narrative Physical exam: General: Alert, Oriented x3, Cooperative, obese, looks slightly pale, not jaundiced HEENT: Atraumatic Oral: Moist Mucosa Neck: Supple Lungs: Clear to auscultation, right upper chest medport Cardiovascular: HS I+II, regular, no murmurs Abdomen: Bowel Sounds Present, Soft, Non Tender Extremities: No edema Skin: No rashes, No breakdown Neurological: Grossly intact Psych/Mental Status: Appropriate Results Lab / Micro Data Result Diagrams: 06/27/22 10:35 06/27/22 10:35 Labs: Laboratory Results - last 24 hr 06/27/22 10:35: WBC 3.3 L, RBC 3.73 L, Hgb 10.5 L, Hct 33.6 L, MCV 90.1, MCH 28.2, MCHC 31.3 L, RDW Std Deviation 45.0 H, RDW Coeff of [place] 13.7, Plt Count 243, MPV 10.2, Immature Gran % (Auto) 0.600, Neut % (Auto) 37.4 L, Lymph % (Auto) 39.4, [place] % (Auto) 21.1 H, Eos % (Auto) 1.2, Baso % (Auto) 0.3, Absolute Neuts (auto) 1.2 L, Absolute Lymphs (auto) 1.29, Nucleated RBC % 0 06/27/22 10:35: PT 14.7, INR 1.2, APTT 32.6 06/27/22 10:35: Sodium 141, Potassium 4.0, Chloride 106, Carbon Dioxide 27.0, Anion Gap 8, BUN 22 H, Creatinine 0.70, Estim Creat Clear Calc 42.62, Est GFR (MDRD) Af Amer 106, Est GFR (MDRD) Non-Af 87, BUN/Creatinine Ratio 31.6 H, Glucose 99, Calcium 8.9, Total Bilirubin 0.20, AST 14 L, ALT 21, Alkaline Phosphatase 63, Troponin I High Sens 14, Total Protein 6.8, Albumin 3.3, Globulin 3.5, Albumin/Globulin Ratio 0.9 06/27/22 13:25: Troponin I High Sens 14 Radiology Impression Chest X-Ray 06/27/22 11:00 IMPRESSION: No acute abnormality is seen. Electronically Signed: Omar Reyes MD at 11:11 EST , Assessment & Plan Assessment/Plan (1) Chronic atrial fibrillation with RVR: PLAN: Plan 1. A. fib with RVR, in a patient with known history of paroxysmal atrial fibrillation Status post Cardizem bolus, currently on drip, heart rate is still uncontrolled Recent 2D echo showed EF of 70%, stage III diastolic dysfunction Admit to PCU, continue on Cardizem drip, Cardiology consult, will follow up on cardiology recommendations on sotalol and hope to wean off Cardizem drip when heart rate is better controlled Continue with Xarelto 2. Hypertension/CAD/hyperlipidemia, stable for now Continue Zetia, fenofibrate, Lasix Not currently on blood pressure medication patient because of recent relative hypotension Continue to monitor blood pressure as well as on Cardizem drip 3.Type II DM, on metformin, will hold metformin, continue blood glucose checks with insulin sliding scale 4.Ovarian CA, status post radical CHENTE/BSO 5.Osteoporosis, continue alendronate 6. Anxiety/depression, continue on BuSpar, Ativan, Cymbalta 7. Recent GI bleed, continue on PPI twice daily 8. COPD, not in acute exacerbation/SEVEN We will continue on Breo, breathing treatments as needed 9. DVT prophylaxis?on Xarelto I discussed and explained in details the various types of CODE STATUS-full code, DNR CCA, DNR CC. Patient chose to be full code and would like her daughter Olivia to be her power of title attorney for healthcare. Time spent discussing CODE STATUS 18 minutes Charges/Coding Visit Charges Inpatient E&M: 41526 Init Hosp L3 Procedures Hospitalists Procedures: 79702 Advncd Care Plan 30 Min
[2022-06-27 17:31] LABS: Bedside Glucose 95 mg/dL (74-106)
[2022-06-27] MEDS: Fenofibrate 48 MG Tablet PO (17:44)
[2022-06-27] MEDS: Rivaroxaban 20 MG Tablet PO (17:44)
[2022-06-27 18:20] LABS: Troponin-I HS 13 pg/mL (3.0-54.0)
[2022-06-27] MEDS: Budesonide Respules 0.5 MG/2 ML AMPUL.NEB. INHALATION (20:02)
[2022-06-27] MEDS: Pantoprazole Sodium 40 MG Tablet PO (20:58)
[2022-06-27] MEDS: busPIRone 15 MG TABLET PO (20:58)
[2022-06-27] MEDS: Sotalol Hydrochloride 80 MG Tablet 120 MG PO (20:59)
[2022-06-27] MEDS: DULoxetine Hcl 60 MG Capsule PO (21:06)
--- NOTE | 2022-06-27 22:06 | EKG12_ITS ---
Test Reason : POST CARDIOVERSION Blood Pressure : / mmHG Vent. Rate : 068 BPM Atrial Rate : 068 BPM P-R Int : 152 ms QRS Dur : 076 ms QT Int : 442 ms P-R-T Axes : 039 027 014 degrees QTc Int : 469 ms Normal sinus rhythm Normal ECG Confirmed by LINDA WOLFE, LOOB ([id number]), associate editor MONTY ARIZMENDI ([id number]) on 06/29/2022 8:56:54 AM Referred By: LINDA Confirmed By:LOBO MCKEON MD
[2022-06-27 22:35] LABS: Bedside Glucose 108 mg/dL (74-106)
[2022-06-28] VITALS (31 sets, daily range): BP systolic 116–152; BP diastolic 57–98; PULSE 62–94; RESP 15–28; TEMP 36.2–36.8; O2SAT 87–99
--- NOTE | 2022-06-28 04:55 | NURSING ---
Assumed care of pt at this time.
[2022-06-28 05:18] LABS: Absolute Lymphocyte Count 1.28 X10^3/uL (0.83-4.51); Basophil# 0.01 X10^3/uL; Basophil% 0.3 % (0-1); Eosinophil# 0.04 X10^3/uL; Eosinophils% 1.4 % (0-5); Hemoglobin 10.8 g/dL (12.0-15.0); Lymphocyte # 1.28 X10^3/ul (0.83-4.51); Lymphocyte % 44.1 % (19-41); Mean Corp Hgb Conc 32.7 g/dL (32-36); Mean Corpuscular Hgb 29.1 pg (27.0-32.0); Mean Corpuscular Volume 88.9 fL (81-99); Mean Platelet Vol. 10.4 fl (6.2-12.0); Monocyte# 0.59 X10^3/uL; Monocyte% 20.3 % (0-10); NRBC Flagged by Analyzer 0 % (0-5); Neutrophil # 0.97 X10^3/uL (2.7-7.7); Neutrophil % 33.6 % (47-70); POSITIVE DIFFERENTIAL YES; Platelet Count 231 K/mm3 (150-450); RBC Distribution Width CV 13.8 % (11.6-14.6); RBC Distribution Width SD 44.6 fl (35.1-43.9); Red Blood Count 3.71 M/mm3 (4.2-5.4); White Blood Count 2.9 K/mm3 (4.4-11.0)
[2022-06-28 05:24] LABS: Differential Indicated SCAN CRITERIA MET
[2022-06-28 05:44] LABS: Differential Comment SCANNED
[2022-06-28 05:47] LABS: ALB/GLOB Ratio 0.9 RATIO (0.9-2.4); AST(SGOT) 13 U/L (15-37); Alanine Aminotransfer ALT/SGPT 19 U/L (13-56); Alkaline Phosphatase 60 U/L (45-117); Anion Gap 8 (5-15); BUN 16 mg/dL (7-18); BUN/Creat Ratio 25.5 RATIO (10-20); Calcium,Total 8.8 mg/dL (8.5-10.1); Chloride 103 mmol/L (98-107); Creatinine, Serum 0.63 mg/dL (0.55-1.02); EST Glomerular Filtration Rate 98 mL/min (>60); Est Glom Filt Rate - Afr Amer 119 mL/min (>60); Estimated Creatinine Clearance 42.62 ml/min; Globulin 3.3 g/dL (2.2-4.2); Glucose 109 mg/dL (74-106); Potassium 3.6 mmol/L (3.5-5.1); Protein, Total 6.3 g/dL (6.4-8.2); Sodium Level 138 mmol/L (136-145)
[2022-06-28] MEDS: busPIRone 15 MG TABLET PO ×3 (06:31→21:22)
[2022-06-28 06:55] LABS: Bedside Glucose 110 mg/dL (74-106)
[2022-06-28] MEDS: Budesonide Respules 0.5 MG/2 ML AMPUL.NEB. INHALATION ×2 (07:25→19:05)
[2022-06-28] MEDS: Albuterol 2.5 MG/3 ML VIAL.NEB. INHALATION (07:25)
--- NOTE | 2022-06-28 08:21 | PCM.CONS.C ---
Assessment & Plan Assessment/Plan (1) Atrial fibrillation and flutter: PLAN: The patient has had recurrence of her atrial fibrillation/flutter. The patient has had recurrence of her atrial dysrhythmia. At the moment she appears stable without any acute adverse events. She will continue to be monitored. She will continue rate control therapy, antiarrhythmic therapy, and anticoagulant therapy. The patient states she has not interrupted her anticoagulant therapy since it was restarted following her previous noncardiovascular procedures. Thus, she states she has been on her anticoagulant therapy without interruption for minimum of 4 weeks. She will be considered for an attempt at regaining sinus rhythm with synchronized biphasic DC cardioversion. The procedure and risk were discussed with her. She was agreeable to this approach. (2) Status post catheter ablation of atrial fibrillation: PLAN: The patient has undergone EPS/RFA as previously noted. At the moment she has had recurrence of her atrial dysrhythmia. She will continue to be monitored. She will continue medical management as noted. She will be considered for an attempt at regaining sinus rhythm with synchronized biphasic DC cardioversion. (3) Atherosclerotic heart disease of [place] coronary artery without angina pectoris: QUALIFIERS: [place] vs. transplanted heart: [place] heart Qualified Code(s): I25.10 - Atherosclerotic heart disease of [place] coronary artery without angina pectoris PLAN: The patient has a history of CAD as noted. Its been thought to be nonobstructive. She will continue risk factor modification medical therapy. (4) HLD (hyperlipidemia): QUALIFIERS: Hyperlipidemia type: pure hypercholesterolemia Qualified Code(s): E78.00 - Pure hypercholesterolemia, unspecified; E78.0 - Pure hypercholesterolemia PLAN: Again the patient has a history of hyperlipidemia. She will continue medical therapy as tolerated. (5) Essential hypertension: PLAN: The patient's blood pressure will need to be monitored with her medicines adjusted as needed. (6) COPD (chronic obstructive pulmonary disease): QUALIFIERS: COPD type: unspecified COPD Qualified Code(s): J44.9 - Chronic obstructive pulmonary disease, unspecified PLAN: The patient has a history of COPD which may be a contributing factor to her underlying atrial dysrhythmia. At the present time she appears without acute change. She will continue under the evaluation care of pulmonology/critical care medicine. (7) SEVEN (obstructive sleep apnea): PLAN: The patient has a history of SEVEN. Again, this may be a contributing factor to her atrial dysrhythmia. Again she will continue under the evaluation and care of pulmonology and critical care medicine. Addt'l Comments The above was discussed and reviewed with the patient. She was agreeable to this approach. This note was generated using a voice recognition system and there may be incorrect words, spelling or punctuation that were not noted when reviewing the office note prior to saving. HPI Consult Data Date of Consult: 06/28/22 HPI Narrative HPI Narrative: ANDREW VELAZQUEZ, is a 76 year old white female who presents for cardiac vascular consultation based upon concerns of recurrent paroxysmal atrial fibrillation/flutter superimposed upon a history of CAD (mild), hyperlipidemia, hypertension, diabetes mellitus, COPD, SEVEN, and ovarian carcinoma status post CHENTE/BSO, receiving chemotherapy. The patient states she was reported as having a recurrent high heart rate recently. She states she knows this based upon information provided by home health care nursing and subsequently provided by her pulmonology office yesterday. Otherwise, she states she would not be aware of the elevated heart rate. She denies any ongoing palpitations and she has had no near-syncope or syncope. There is been no obvious issues of acute chest discomfort or acute change in her respiratory status. She has had no obvious orthopnea or PND or the development of peripheral pitting edema. She states in the outpatient pulmonology office she was told there were no acute pulmonary changes. Based upon her elevated heart rates she was referred to the emergency department for further evaluation. There she was found to be in what appeared to be an underlying atrial flutter. She was subsequently placed in the PCU for continued inpatient evaluation and care. This has included continued cardiac rhythm monitoring, cardiac enzyme follow-up which was negative, ECG follow-up which demonstrated atrial flutter with no acute ECG changes, and treatment with IV diltiazem to slow her heart rate. She remains in atrial flutter at this time. [facility] Medical History Abdominal pain Acute exacerbation of chronic obstructive pulmonary disease (COPD) Acute respiratory failure with hypoxia and hypercarbia Anxiety Ascites Atherosclerotic heart disease of [place] coronary artery without angina pectoris Atrial fibrillation with RVR CAD (coronary artery disease) CAD (coronary artery disease) COPD (chronic obstructive pulmonary disease) Debility Diarrhea Diastolic congestive heart failure DM2 (diabetes mellitus, type 2) Essential hypertension Flu vaccine need Hiatal hernia HLD (hyperlipidemia) HTN (hypertension) Hypokalemia Junctional rhythm Long-term use of high-risk medication Morbid obesity NSTEMI (non-ST elevated myocardial infarction) SEVEN (obstructive sleep apnea) Ovarian cancer PAF (paroxysmal atrial fibrillation) Panic disorder Paroxysmal atrial fibrillation with rapid ventricular response Pelvic mass Port-A-Cath in place Pulmonary HTN Sepsis SOB (shortness of breath) Spastic colon Streptococcal pneumonia Vitamin D deficiency Home Medications compress.stocking,knee,reg,lrg #2 ea 05/06/19 [Rx Last Taken Unknown] magnesium oxide 400 mg PO DAILY #90 caps 07/01/19 [Rx Last Taken Unknown] lancing device #1 ea 12/29/20 [Rx Last Taken Unknown] metformin 500 mg tablet 500 mg PO BID blood sugars 02/11/22 [History Last Taken 06/27/22] magnesium oxide 800 mg PO DAILY supplement 04/08/22 [History Last Taken 06/26/22] cholecalciferol (vitamin D3) 1,250 mcg (50,000 unit) tablet 50,000 unit PO QWEEK supplement 05/04/22 [History Last Taken 06/24/22] docusate sodium 100 mg capsule (Colace) 100 mg PO BID PRN Constipation 05/04/22 [History Last Taken Unknown] duloxetine 60 mg capsule,delayed release 60 mg PO QDAY depression 05/04/22 [History Last Taken 06/26/22] potassium chloride 20 mEq tablet,extended release(part/cryst) (Klor-Con M) 20 meq PO DAILY supplement 05/04/22 [History Last Taken 06/27/22] acetaminophen 500 mg tablet 1,000 mg PO Q6H PRN Pain Score 1-5 #0 tabs 05/16/22 [Rx Last Taken 06/26/22] albuterol sulfate 90 mcg/actuation aerosol inhaler (Ventolin HFA) 1 inh inhalation ONCE SOB 05/23/22 [History Last Taken Unknown] alendronate 70 mg tablet (Fosamax) 70 mg PO QMONTH bone 05/23/22 [History Last Taken 05/07/22] ezetimibe 10 mg tablet (Zetia) 10 mg PO QDAY cholesterol #90 tabs 06/03/22 [Rx Last Taken 06/27/22] fluticasone furoate 200 mcg-vilanterol 25 mcg/dose inhalation powder (Breo Ellipta) 1 inh inhalation QDAY breathing #60 ea 06/10/22 [Rx Last Taken 06/26/22] furosemide 40 mg tablet 20 mg PO DAILY fluid 06/15/22 [History Last Taken 06/26/22] buspirone 15 mg tablet 15 mg PO TID mood 06/27/22 [History Last Taken 06/27/22] fenofibrate micronized 67 mg capsule 67 mg PO QPM cholesterol 06/27/22 [History Last Taken 06/26/22] loperamide 2 mg tablet 2 mg PO Q6H PRN Diarrhea 06/27/22 [History Last Taken Unknown] lorazepam 0.5 mg tablet (Ativan) 0.5 mg PO BID PRN Anxiety #30 tabs 06/27/22 [Rx Last Taken Unknown] pantoprazole 40 mg tablet,delayed release 40 mg PO BID GERD 06/27/22 [History Last Taken 06/27/22] rivaroxaban 20 mg tablet (Xarelto) 20 mg PO DINNER afib 06/27/22 [History Last Taken 06/26/22] sotalol 120 mg tablet 120 mg PO BID heart 06/27/22 [History Last Taken 06/27/22] Allergy/AdvReac Type Severity Reaction Status Date / Time amoxicillin Allergy Severe hives Verified 06/27/22 09:53 chlorhexidine Allergy Unknown red skin Verified 06/27/22 09:53 morphine Allergy Unknown headaches Verified 06/27/22 09:53 labetalol Allergy Unknown Verified 06/27/22 09:53 pitavastatin [From Livalo] Allergy Other Verified 06/27/22 09:53 simvastatin [From Zocor] Allergy Other Verified 06/27/22 09:53 atorvastatin [From Lipitor] AdvReac Unknown myalgias Verified 06/27/22 09:53 budesonide [From Symbicort] AdvReac Other Verified 06/27/22 09:53 formoterol [From Symbicort] AdvReac Other Verified 06/27/22 09:53 hydrocodone [From Vicodin] AdvReac Other Verified 06/27/22 09:53 Xxmqkcy-XXW-KoZ Reductase AdvReac Other Verified 06/27/22 09:53 Inhibitor [Glbrqfa-Ijz-Paj Reductase Inhibitor] Family History Mother Cancer leukemia Father Respiratory disease Grandfather Myocardial infarction Grandmother Myocardial infarction Son Diabetes Surgical History History of cataract surgery History of colonoscopy History of exploratory laparotomy History of hysterectomy History of surgery on right wrist History of tonsillectomy and adenoidectomy Social History household members: spouse Smoking Status: Never smoker alcohol intake: never substance use type: does not use caffeine: Yes Type: coffee Number of servings: 1 what type of physical activity do you participate in: none seatbelt use: always do you feel safe at home: Yes ROS Constitutional Constitutional: Reports as per HPI Eyes Eyes: Reports as per HPI ENT HEENT: Reports as per HPI Cardiovascular Cardiovascular: Reports as per HPI Respiratory/Chest Respiratory/Chest: Reports as per HPI Gastrointestinal Gastrointestinal: Reports as per HPI Genitourinary Genitourinary: Reports as per HPI Musculoskeletal Musculoskeletal: Reports as per HPI Integumentary Integumentary: Reports as per HPI Neurologic Neurologic: Reports as per HPI Physical Exam Const alert, oriented x3 and no apparent distress Orientation / Consciousness: awake HEENT normocephalic, head/scalp atraumatic and hearing grossly normal bilaterally Eyes PERRL, EOMs intact bilaterally, conjunctivae normal and no scleral icterus Neck full ROM, supple and no JVD Carotids: normal carotid upstroke Chest Chest Narrative: Right sided port placement Resp normal respiratory effort and clear to auscultation bilaterally Cardio Rhythm: abnormal rhythm irregularly irregular Heart Sounds: S1 normal and S2 normal GI normal to inspection, nondistended, normoactive bowel sounds Extremity no pedal edema Skin no rashes or lesions noted Psych mental status grossly normal Risk Stratification Risk Stratification Applicable: No Procedure Criteria Type of Procedure Procedure Type: Elective Elective Risks - COVID COVID Risk Discussion: The surgeon/proceduralist and patient have discussed in detail the risk of exposure to and/or potential harm posed by the COVID-19 virus with having a surgery/procedure at this time versus the risk of delaying the surgery/procedure. It is not possible to know either the risk of delaying the surgery or procedure or chance of getting an infection with perfect accuracy, but a joint decision was made between the patient and the surgeon/proceduralist to proceed at this time with the scheduled surgery/procedure as indicated on the consent form. Objective Data Vital Signs: Vital Signs Temp Pulse Resp BP Pulse Ox O2 Del Method 97.7 F L 94 15 151/98 H 97 Room Air 06/28/22 02:00 06/28/22 08:00 06/28/22 08:00 06/28/22 08:00 06/28/22 08:00 06/28/22 08:00 Oxygen Delivery Method Room Air Weight: 192 lb 7.417 oz Body Mass Index (BMI) 33.0 Intake & Output: Intake and Output for Last 24 Hours 06/26/22 06/27/22 06/28/22 23:59 23:59 23:59 Intake Total 93.09 / 98.09 585 / 585 Output Total 500 / 500 Balance 93.09 / 98.09 85 / 85 Lab / Micro Data Result Diagrams: 06/28/22 04:50 06/28/22 04:50 Labs: Laboratory Results - last 24 hr 06/27/22 10:35: WBC 3.3 L, RBC 3.73 L, Hgb 10.5 L, Hct 33.6 L, MCV 90.1, MCH 28.2, MCHC 31.3 L, RDW Std Deviation 45.0 H, RDW Coeff of [place] 13.7, Plt Count 243, MPV 10.2, Immature Gran % (Auto) 0.600, Neut % (Auto) 37.4 L, Lymph % (Auto) 39.4, [place] % (Auto) 21.1 H, Eos % (Auto) 1.2, Baso % (Auto) 0.3, Absolute Neuts (auto) 1.2 L, Absolute Lymphs (auto) 1.29, Nucleated RBC % 0 06/27/22 10:35: PT 14.7, INR 1.2, APTT 32.6 06/27/22 10:35: Sodium 141, Potassium 4.0, Chloride 106, Carbon Dioxide 27.0, Anion Gap 8, BUN 22 H, Creatinine 0.70, Estim Creat Clear Calc 42.62, Est GFR (MDRD) Af Amer 106, Est GFR (MDRD) Non-Af 87, BUN/Creatinine Ratio 31.6 H, Glucose 99, Calcium 8.9, Total Bilirubin 0.20, AST 14 L, ALT 21, Alkaline Phosphatase 63, Troponin I High Sens 14, Total Protein 6.8, Albumin 3.3, Globulin 3.5, Albumin/Globulin Ratio 0.9 06/27/22 13:25: Troponin I High Sens 14 06/27/22 16:57: Troponin I High Sens 13 06/27/22 17:09: POC Glucose 95 06/27/22 21:59: POC Glucose 108 H 06/28/22 04:50: WBC 2.9 L, RBC 3.71 L, Hgb 10.8 L, Hct 33.0 L, MCV 88.9, MCH 29.1, MCHC 32.7, RDW Std Deviation 44.6 H, RDW Coeff of [place] 13.8, Plt Count 231, MPV 10.4, Immature Gran % (Auto) 0.300, Neut % (Auto) 33.6 L, Lymph % (Auto) 44.1 H, [place] % (Auto) 20.3 H, Eos % (Auto) 1.4, Baso % (Auto) 0.3, Absolute Neuts (auto) 1.0 L, Absolute Lymphs (auto) 1.28, Nucleated RBC % 0, Differential Comment SCANNED 06/28/22 04:50: Sodium 138, Potassium 3.6, Chloride 103, Carbon Dioxide 27.0, Anion Gap 8, BUN 16, Creatinine 0.63, Estim Creat Clear Calc 42.62, Est GFR (MDRD) Af Amer 119, Est GFR (MDRD) Non-Af 98, BUN/Creatinine Ratio 25.5 H, Glucose 109 H, Calcium 8.8, Total Bilirubin 0.20, AST 13 L, ALT 19, Alkaline Phosphatase 60, Total Protein 6.3 L, Albumin 3.0 L, Globulin 3.3, Albumin/Globulin Ratio 0.9 06/28/22 06:33: POC Glucose 110 H Cardiology Labs/Tests 06/27/22 10:35: WBC 3.3 L, RBC 3.73 L, Hgb 10.5 L, Hct 33.6 L, MCV 90.1, MCH 28.2, MCHC 31.3 L, Plt Count 243, MPV 10.2, Immature Gran % (Auto) 0.600, Neut % (Auto) 37.4 L, Lymph % (Auto) 39.4, [place] % (Auto) 21.1 H, Eos % (Auto) 1.2, Baso % (Auto) 0.3, Absolute Neuts (auto) 1.2 L, Nucleated RBC % 0 06/27/22 10:35: PT 14.7, INR 1.2, APTT 32.6 06/27/22 10:35: Sodium 141, Potassium 4.0, Chloride 106, Carbon Dioxide 27.0, Anion Gap 8, BUN 22 H, Creatinine 0.70, Est GFR (MDRD) Af Amer 106, Est GFR (MDRD) Non-Af 87, BUN/Creatinine Ratio 31.6 H, Glucose 99, Calcium 8.9, Total Bilirubin 0.20 06/28/22 04:50: WBC 2.9 L, RBC 3.71 L, Hgb 10.8 L, Hct 33.0 L, MCV 88.9, MCH 29.1, MCHC 32.7, Plt Count 231, MPV 10.4, Immature Gran % (Auto) 0.300, Neut % (Auto) 33.6 L, Lymph % (Auto) 44.1 H, [place] % (Auto) 20.3 H, Eos % (Auto) 1.4, Baso % (Auto) 0.3, Absolute Neuts (auto) 1.0 L, Nucleated RBC % 0 06/28/22 04:50: Sodium 138, Potassium 3.6, Chloride 103, Carbon Dioxide 27.0, Anion Gap 8, BUN 16, Creatinine 0.63, Est GFR (MDRD) Af Amer 119, Est GFR (MDRD) Non-Af 98, BUN/Creatinine Ratio 25.5 H, Glucose 109 H, Calcium 8.8, Total Bilirubin 0.20 Rhythm: Atrial flutter EKG: Atrial flutter Transthoracic echocardiogram: 12/19/2017 Interpretation Summary Left ventricular systolic function is normal. The estimated ejection fraction is 65 %. Moderate concentric left ventricular hypertrophy. The left atrium is severely enlarged. There is moderate to severe mitral annular calcification. Extension of the mitral annular calcification onto the posterior mitral valve leaflet. Mild (1+) mitral valve insufficiency. Mild tricuspid valve insufficiency. Trivial pulmonic valve insufficiency. Calcified aortic root. Right ventricular systolic pressure estimated to be 45 mmHg. Transmitral diastolic flow velocities suggest diastolic dysfunction (pseudonormal pattern). Transthoracic echocardiogram: 04-20-2022 Interpretation Summary Left ventricular systolic function is normal. The estimated ejection fraction is 70 %. The left atrium is severely enlarged. There is moderate to severe mitral annular calcification. Extension of the mitral annular calcification onto the base of the posterior mitral valve leaflet. Anterior leaflet diffuse mitral valve thickening. Moderate (2+) eccentric mitral valve insufficiency. Moderate (2+) tricuspid valve insufficiency. Aortic sclerosis, no stenosis. Mild (1+) pulmonic valve insufficiency. Right ventricular systolic pressure estimated to be 52 mmHg. Stage 3 diastolic dysfunction. Based upon the 2D echocardiographic/color-flow Doppler information obtained a small ASD with right- to-left interatrial shunt cannot necessarily be excluded. (Of note: The patient declined further evaluation with an agitated saline contrast study). EXERCISE TOLERANCE TEST: 10/14/2016 The patient underwent pharmacologic (regadenoson) evaluation with a peak heart rate of 139 beats per minute (91% predicted maximum heart rate) and a peak blood pressure of 125/101 mmHg. The baseline ECG demonstrated atrial fibrillation.? The peak pharmacologic ECG demonstrated no obvious ECG changes. There were occasional PVCs pretest, during infusion, and recovery. There was no report of chest discomfort during pharmacologic infusion or recovery. The examination was discontinued secondary to completion of protocol. IMPRESSION: 1.? Pharmacologic (regadenoson) evaluation. 2.? Peak pharmacologic ECG with no obvious ECG changes. 3.? Occasional PVCs pretest, during infusion, and recovery. 4.? Nuclear images pending. MYOCARDIAL PERFUSION IMAGING STUDY: TECHNIQUE: The patient was injected with 14.8 mCi of Tc99m Cardiolite and subsequently rest SPECT Cardiolite nuclear imaging was obtained in the horizontal long, vertical long and short axes views.? The patient underwent pharmacologic (regadenoson) evaluation with a peak heart rate of 139 beats per minute (91% predicted maximum heart rate) and a peak blood pressure of 175/101 mmHg.? The patient was injected with 45.0 mCi of Tc99m Cardiolite and subsequently stress SPECT Cardiolite nuclear imaging was obtained in the horizontal long, vertical long and short axes views.? A gated Cardiolite study at peak stress was obtained. INTERPRETATION: Rest and stress SPECT Cardiolite nuclear imaging status post realignment, normalization, and attenuation correction the appearance of extracardiac/hepatic gastrointestinal tracer uptake near the inferior segments.? This is noted on both the resting and stress SPECT images.? At rest, there appears to be relative uniform tracer uptake.? Status post stress, there is notation of subtle diminished tracer uptake near the distal anterior/anteroapical segments.? There is notation of end systolic thickening and brightening.? The gated Cardiolite study demonstrates myocardial thickening and inward wall motion.? The reported LVEF was 60%.? The aforementioned changes may be compatible with shifting soft tissue attenuation/artifact, however, an element of stress-induced myocardial ischemia in this area cannot necessarily be excluded. IMPRESSION: 1.? Rest and SPECT Cardiolite nuclear imaging demonstrate myocardial perfusion changes potentially compatible with shifting soft tissue attenuation/artifact.? However, an element of stress-induced myocardial ischemia involving portions of the distal anterior/anteroapical segments cannot necessarily be excluded. 2.? The gated Cardiolite study reports an LVEF of 60%. Cardiac catheterization: 10/17/2016 Summary: Left ventricle normal with an LVEF of 65%; decreased diastolic compliance; coronary arteries with mild luminal irregularities; mitral valve annulus with moderate to severe mitral annular calcification 48 Hr HM: 01/28/2019 Holter monitor: 48 hours: Sinus rhythm/sinus arrhythmia; PACs; PVCs; episodes appearing compatible with paroxysmal atrial fibrillation with the longest episode being approximately 18 beats in duration; no symptoms reported. Electrophysiology procedure: EPS/RFA: 03-11-2019: [facility]: Atrial fibrillation: EPS/RFA: Considered successful Radiography Diagnostic Testing: Radiology Impression Chest X-Ray 06/27/22 11:00 IMPRESSION: No acute abnormality is seen. Electronically Signed: Omar Reyes MD at 11:11 EST ,
--- NOTE | 2022-06-28 09:39 | PN.HOSP_ITS ---
Subjective Subjective Doing well, no issues overnight. Heart rate is controlled with Cardizem drip Objective Data Objective Data Vital Signs: Vital Signs Temp Pulse Resp BP Pulse Ox O2 Del Method 98.2 F 89 18 132/64 H 98 Room Air 06/28/22 09:00 06/28/22 09:00 06/28/22 09:00 06/28/22 09:00 06/28/22 09:00 06/28/22 09:00 Oxygen Delivery Method Room Air Weight: 192 lb 7.417 oz Body Mass Index (BMI) 33.0 Intake & Output: Intake and Output for Last 24 Hours 06/27/22 06/28/22 06/29/22 03:59 03:59 03:59 Intake Total 128.09 / 138.09 560 / 560 Output Total 500 / 500 Balance 128.09 / 138.09 60 / 60 Lab / Micro Data Result Diagrams: 06/28/22 04:50 06/28/22 04:50 Labs: Laboratory Results - last 24 hr 06/27/22 10:35: WBC 3.3 L, RBC 3.73 L, Hgb 10.5 L, Hct 33.6 L, MCV 90.1, MCH 28.2, MCHC 31.3 L, RDW Std Deviation 45.0 H, RDW Coeff of Nabor 13.7, Plt Count 243, MPV 10.2, Immature Gran % (Auto) 0.600, Neut % (Auto) 37.4 L, Lymph % (Auto) 39.4, [place] % (Auto) 21.1 H, Eos % (Auto) 1.2, Baso % (Auto) 0.3, Absolute Neuts (auto) 1.2 L, Absolute Lymphs (auto) 1.29, Nucleated RBC % 0 06/27/22 10:35: PT 14.7, INR 1.2, APTT 32.6 06/27/22 10:35: Sodium 141, Potassium 4.0, Chloride 106, Carbon Dioxide 27.0, Anion Gap 8, BUN 22 H, Creatinine 0.70, Estim Creat Clear Calc 42.62, Est GFR (MDRD) Af Amer 106, Est GFR (MDRD) Non-Af 87, BUN/Creatinine Ratio 31.6 H, Glucose 99, Calcium 8.9, Total Bilirubin 0.20, AST 14 L, ALT 21, Alkaline Phosphatase 63, Troponin I High Sens 14, Total Protein 6.8, Albumin 3.3, Globulin 3.5, Albumin/Globulin Ratio 0.9 06/27/22 13:25: Troponin I High Sens 14 06/27/22 16:57: Troponin I High Sens 13 06/27/22 17:09: POC Glucose 95 06/27/22 21:59: POC Glucose 108 H 06/28/22 04:50: WBC 2.9 L, RBC 3.71 L, Hgb 10.8 L, Hct 33.0 L, MCV 88.9, MCH 29.1, MCHC 32.7, RDW Std Deviation 44.6 H, RDW Coeff of Nabor 13.8, Plt Count 231, MPV 10.4, Immature Gran % (Auto) 0.300, Neut % (Auto) 33.6 L, Lymph % (Auto) 44.1 H, [place] % (Auto) 20.3 H, Eos % (Auto) 1.4, Baso % (Auto) 0.3, Absolute Neuts (auto) 1.0 L, Absolute Lymphs (auto) 1.28, Nucleated RBC % 0, Differential Comment SCANNED 06/28/22 04:50: Sodium 138, Potassium 3.6, Chloride 103, Carbon Dioxide 27.0, Anion Gap 8, BUN 16, Creatinine 0.63, Estim Creat Clear Calc 42.62, Est GFR ( MDRD) Af Amer 119, Est GFR (MDRD) Non-Af 98, BUN/Creatinine Ratio 25.5 H, Glucose 109 H, Calcium 8.8, Total Bilirubin 0.20, AST 13 L, ALT 19, Alkaline Phosphatase 60, Total Protein 6.3 L, Albumin 3.0 L, Globulin 3.3, Albumin/Globulin Ratio 0.9 06/28/22 06:33: POC Glucose 110 H Radiography Diagnostic Testing: Radiology Impression Chest X-Ray 06/27/22 11:00 IMPRESSION: No acute abnormality is seen. Electronically Signed: Omar Reyes MD at 11:11 EST , Physical Exam Narrative General: Alert, Oriented x3, Cooperative, No apparent distress HEENT: Atraumatic, PERRLA, EOMI, Normocephalic Oral: Moist Mucosa Neck: Supple, No JVD Lungs: Diminished, Normal air movement, No rhonchi, No wheeze, No rales Cardiovascular: Regular rate, irregular rhythm, Normal S1, Normal S2, No murmurs Abdomen: Soft, Non Tender, Non-Distended, No Hepato-splenomegaly Extremities: No edema, Capillary Refill Less than 3 Seconds Skin: No rashes, No breakdown Musculoskeletal: No Tenderness to Palpation of Joints or Extremities Neurological: Cranial nerves II-XII grossly intact, Motor Exam 5/5 strength throughout, Sensory exam intact to light touch and pain Psych/Mental Status: Normal Affect, Appropriate Assessment & Plan Assessment/Plan (1) Chronic atrial fibrillation with RVR: PLAN: Plan 1. A. fib with RVR/HTN/HLD/CAD ? Blood pressures are stable ? She is chronically anticoagulated on Xarelto ? Discussion with cardiology plan for cardioversion ? Continue with her sotalol currently on a Cardizem ? She did have a recent echo with an EF of 70% and stage III diastolic dysfunction ? Continue with her home cholesterol medications 2. DM2 ? Hold metformin ? Continue sliding scale insulin ? Accu-Cheks AC at bedtime ? We will monitor and make adjustments as necessary 3. Ovarian CA ? Status post radical CHENTE/BSO 4. Osteoporosis ? Continue alendronate ? Stable 5. Anxiety/depression ? Stable ? continue on BuSpar, Ativan, Cymbalta 6. Recent GI bleed ? Stable ? Continue on PPI twice daily 8. COPD/SEVEN ? Not in acute exacerbation ?We will continue on Breo, breathing treatments as needed DVT: Xarelto Charges/Coding Visit Charges Inpatient E&M: 36640 Subs Hosp L2
--- NOTE | 2022-06-28 10:15 | CASEMGMT ---
RN CM Face to Face with patient for initial transition planning/care coordination assessment. RN CM introduced self and role at [facility]. Patient sitting in chair, alert and oriented. Patient willing to participate in assessment and is able to answer all questions appropriately. Care providers, pharmacy, and demographics verified. Patient wishes to discharge home, denies need for home health at this time. Will monitor progress with therapy for disposition recommendations. Patient states she has no further needs or concerns at this time. CM to follow for discharge planning needs that may arise. PCP: Felicita Specialists: Rosendo Robertson, medical appointment clerk; Chris, professional fee coder; Gabriela, oncologist Preferred Pharmacy: [facility] Insurance: [facility] Dual Prescription Benefit: yes Living Will/HPOA: yes, daughter Olivia Chisholm LNOK: and daughter Living Arrangements: Patient lives with and daughter in a 2 story home with bed and bath on first floor. 3 steps to enter the home. Patient states she is independent Transportation: daughter, [facility] Van DME/HHC: Patient states she has shower chair, raised toilet, grab bars, walker, wheelchair, cpap, nebulizer, and pulse ox at home. Patient has had [facility] HHC in the past. Patient has previously been to TCU. Disposition Plan: Patient to discharge home with family support and follow-up plans in place. Will monitor for HHC vs SNF pending progress with therapy. Taylor CORONEL, RN, CM
[2022-06-28 11:51] LABS: Bedside Glucose 103 mg/dL (74-106)
[2022-06-28] MEDS: Midazolam 5 MG/ML Syringe 10 MG IV (12:12)
[2022-06-28] MEDS: 0.9% Saline Lock 10 ML Syringe IV ×2 (12:24→14:27)
--- NOTE | 2022-06-28 12:28 | CARDIOVERS ---
Cardioversion Cardioversion: Date: 06-28-2022 Procedure: Synchronized Biphasic DC Cardioversion Indications: Atrial fibrillation/flutter Consent: Per the Patient Anesthesia: per Dr. Ness of pulmonology and critical care medicine with midazolam/Versed and 6 mg IV push total Procedure: Synchronized Biphasic DC Cardioversion: 200 J x 1: Result: Sinus rhythm Complications: no apparent complications This note was generated with [employer] software. It may contain incorrect words, spelling, and punctuation that were not noted in checking the note before signing.
--- NOTE | 2022-06-28 12:30 | EX.PCM.CONCC ---
Assessment & Plan Assessment/Plan (1) Status post catheter ablation of atrial fibrillation: PLAN: Patient has recurrent AF RVR after ablation ~3 years ago. (2) Chronic atrial fibrillation with RVR: PLAN: Proceed with plan for elective cardioversion by Dr. Perez (3) Obstructive sleep apnea: PLAN: CPAP 6 cm during moderate sedation for procedure Respiratory and hemodynamic support at bedside as needed for procedure. (4) Chronic obstructive pulmonary disease: PLAN: Stable, continue current inhalers per med list. (5) Diabetes mellitus: PLAN: Per primary team management (6) Hypokalemia: PLAN: Supplemented per orders. (7) Depression: (8) Port-A-Cath in place: (9) At risk for prolonged QT interval syndrome: PLAN: Plan ASA 3 patient for moderate sedation for elective cardioversion of atrial fibrillation. Patient is likely to tolerate the procedure well from a respiratory standpoint with CPAP support while asleep to minimize chance of oxygen desaturation during sedation for procedure. Moderate SEVEN, well controlled on home CPAP 6 cm. CPAP will be used for the procedure. Ovarian CA COPD, well controlled on maintenance inhalers. Anxiety/depression, on buspar and infrequent ativan 0.5 mg PO q8h, last was days prior to admission. Post-procedure assessment: patient was cardioverted uneventfully after 6 mg versed IV in divided doses for moderate sedation. VSS after procedure. Minimum SpO2 92% on CPAP 6 cm, now 98%. Patient was easily arousable for post procedure assessment, monitored on unit with satisfactory recovery. See cardiology notes for further details. HPI Consult Data Date of Consult: 06/28/22 PCP / Referring MD: Consulted for moderate conscious sedation for elective cardioversion for atrial fibrillation with RVR, in a patient s/p ablation ~3 years ago, and ovarian cancer on chemotherapy via port, last 2 weeks ago, due for her last treatment later this week. She has SEVEN on CPAP 6 cm, wears it with stated good compliance. Last night, she wore her home CPAP for 5.4 hours. PMH, PSH, All, Medications, fam and social history reviewed, discussed procedure and conscious sedation for the procedure with the patient and her daughter Olivia at the bedside. Patient wishes to proceed. She is anticoagulated with Xarelto x ~5 days prior to procedure. She last used PRN ativan about 2 weeks ago, and uses buspirone for anxiety/depression, last dose this AM. NPO for the procedure. HPI Narrative Reason for Consultation: Consulted for moderate conscious sedation for elective cardioversio HPI Narrative: ANDREW VELAZQUEZ, is a 76 F who presents [facility] Medical History Abdominal pain Acute exacerbation of chronic obstructive pulmonary disease (COPD) Acute respiratory failure with hypoxia and hypercarbia Anxiety Ascites Atherosclerotic heart disease of [place] coronary artery without angina pectoris Atrial fibrillation with RVR CAD (coronary artery disease) CAD (coronary artery disease) COPD (chronic obstructive pulmonary disease) Debility Diarrhea Diastolic congestive heart failure DM2 (diabetes mellitus, type 2) Essential hypertension Flu vaccine need Hiatal hernia HLD (hyperlipidemia) HTN (hypertension) Hypokalemia Junctional rhythm Long-term use of high-risk medication Morbid obesity NSTEMI (non-ST elevated myocardial infarction) SEVEN (obstructive sleep apnea) Ovarian cancer PAF (paroxysmal atrial fibrillation) Panic disorder Paroxysmal atrial fibrillation with rapid ventricular response Pelvic mass Port-A-Cath in place Pulmonary HTN Sepsis SOB (shortness of breath) Spastic colon Streptococcal pneumonia Vitamin D deficiency Home Medications compress.stocking,knee,reg,lrg #2 ea 05/06/19 [Rx Last Taken Unknown] magnesium oxide 400 mg PO DAILY #90 caps 07/01/19 [Rx Last Taken Unknown] lancing device #1 ea 12/29/20 [Rx Last Taken Unknown] metformin 500 mg tablet 500 mg PO BID blood sugars 02/11/22 [History Last Taken 06/27/22] magnesium oxide 800 mg PO DAILY supplement 04/08/22 [History Last Taken 06/26/22] cholecalciferol (vitamin D3) 1,250 mcg (50,000 unit) tablet 50,000 unit PO QWEEK supplement 05/04/22 [History Last Taken 06/24/22] docusate sodium 100 mg capsule (Colace) 100 mg PO BID PRN Constipation 05/04/22 [History Last Taken Unknown] duloxetine 60 mg capsule,delayed release 60 mg PO QDAY depression 05/04/22 [History Last Taken 06/26/22] potassium chloride 20 mEq tablet,extended release(part/cryst) (Klor-Con M) 20 meq PO DAILY supplement 05/04/22 [History Last Taken 06/27/22] acetaminophen 500 mg tablet 1,000 mg PO Q6H PRN Pain Score 1-5 #0 tabs 05/16/22 [Rx Last Taken 06/26/22] albuterol sulfate 90 mcg/actuation aerosol inhaler (Ventolin HFA) 1 inh inhalation ONCE SOB 05/23/22 [History Last Taken Unknown] alendronate 70 mg tablet (Fosamax) 70 mg PO QMONTH bone 05/23/22 [History Last Taken 05/07/22] ezetimibe 10 mg tablet (Zetia) 10 mg PO QDAY cholesterol #90 tabs 06/03/22 [Rx Last Taken 06/27/22] fluticasone furoate 200 mcg-vilanterol 25 mcg/dose inhalation powder (Breo Ellipta) 1 inh inhalation QDAY breathing #60 ea 06/10/22 [Rx Last Taken 06/26/22] furosemide 40 mg tablet 20 mg PO DAILY fluid 06/15/22 [History Last Taken 06/26/22] buspirone 15 mg tablet 15 mg PO TID mood 06/27/22 [History Last Taken 06/27/22] fenofibrate micronized 67 mg capsule 67 mg PO QPM cholesterol 06/27/22 [History Last Taken 06/26/22] loperamide 2 mg tablet 2 mg PO Q6H PRN Diarrhea 06/27/22 [History Last Taken Unknown] lorazepam 0.5 mg tablet (Ativan) 0.5 mg PO BID PRN Anxiety #30 tabs 06/27/22 [Rx Last Taken Unknown] pantoprazole 40 mg tablet,delayed release 40 mg PO BID GERD 06/27/22 [History Last Taken 06/27/22] rivaroxaban 20 mg tablet (Xarelto) 20 mg PO DINNER afib 06/27/22 [History Last Taken 06/26/22] sotalol 120 mg tablet 120 mg PO BID heart 06/27/22 [History Last Taken 06/27/22] Allergy/AdvReac Type Severity Reaction Status Date / Time amoxicillin Allergy Severe hives Verified 06/27/22 09:53 chlorhexidine Allergy Unknown red skin Verified 06/27/22 09:53 morphine Allergy Unknown headaches Verified 06/27/22 09:53 labetalol Allergy Unknown Verified 06/27/22 09:53 pitavastatin [From Livalo] Allergy Other Verified 06/27/22 09:53 simvastatin [From Zocor] Allergy Other Verified 06/27/22 09:53 atorvastatin [From Lipitor] AdvReac Unknown myalgias Verified 06/27/22 09:53 budesonide [From Symbicort] AdvReac Other Verified 06/27/22 09:53 formoterol [From Symbicort] AdvReac Other Verified 06/27/22 09:53 hydrocodone [From Vicodin] AdvReac Other Verified 06/27/22 09:53 [id number] Reductase AdvReac Other Verified 06/27/22 09:53 Inhibitor [Fnnepnk-Rjw-Dgy Reductase Inhibitor] Family History Mother Cancer leukemia Father Respiratory disease Grandfather Myocardial infarction Grandmother Myocardial infarction Son Diabetes Surgical History History of cataract surgery History of colonoscopy History of exploratory laparotomy History of hysterectomy History of surgery on right wrist History of tonsillectomy and adenoidectomy Social History household members: spouse Smoking Status: Never smoker alcohol intake: never substance use type: does not use caffeine: Yes Type: coffee Number of servings: 1 what type of physical activity do you participate in: none seatbelt use: always do you feel safe at home: Yes ROS Constitutional Constitutional: Denies body ache(s), chills or fever(s) ENT HEENT: Denies dysphagia, headache(s) or nasal congestion Cardiovascular Cardiovascular: Reports irregular heart rhythm; Denies chest pain, dizziness, dyspnea, edema or lightheadedness Respiratory/Chest Respiratory/Chest: Reports shortness of breath with exertion; Denies cough, dyspnea or non-rest sleep EDS Gastrointestinal Gastrointestinal: Denies abdominal pain Integumentary Integumentary: Denies rash Neurologic Neurologic: Denies abnormal speech, confusion or focal weakness Psychiatric Psychiatric: Reports anxiety, depression and panic attacks Hematologic/Lymphatic Hematologic/Lymphatic: Reports easy bruising Physical Exam Narrative WDWN obese NAD, pleasant, cooperative, mildly anxious. HEENT: Mallampati 3, narrow hypopharynx, mmm, no thrush, Eyes EOMs intact bilaterally and no scleral icterus Neck full ROM and no JVD General: trachea midline and CVC in place Chest inspection of chest normal Chest Narrative: Port in place, infusing well, R upper chest. Resp normal respiratory effort and no use of accessory muscles Effort and Inspection: able to speak in complete sentences Auscultation: clear to auscultation bilaterally Cardio Rhythm: abnormal rhythm irregularly irregular GI normal to inspection, nondistended, normoactive bowel sounds GI Narrative: Healing incision from hysterectomy/bowel resection 2 months ago to R of midline, no erythema or drainage. Inspection: incision healing well; Negative for anasarca present or abdominal distention Auscultation: normoactive bowel sounds Back/Spine Back/Spine Narrative: able to sit up for exam without assistance Extremity no clubbing, cyanosis or edema Skin no rashes or lesions noted Neuro oriented x3, CN's II-XII intact bilaterally, moves all extremities and no focal motor deficits Psych affect normal Speech: normal speech Lab / Micro Data Attestation: I reviewed the patient's lab results. Result Diagrams: 06/28/22 04:50 06/28/22 04:50 Labs: Laboratory Results - last 24 hr 06/27/22 13:25: Troponin I High Sens 14 06/27/22 16:57: Troponin I High Sens 13 06/27/22 17:09: POC Glucose 95 06/27/22 21:59: POC Glucose 108 H 06/28/22 04:50: WBC 2.9 L, RBC 3.71 L, Hgb 10.8 L, Hct 33.0 L, MCV 88.9, MCH 29.1, MCHC 32.7, RDW Std Deviation 44.6 H, RDW Coeff of Nabor 13.8, Plt Count 231, MPV 10.4, Immature Gran % (Auto) 0.300, Neut % (Auto) 33.6 L, Lymph % (Auto) 44.1 H, [place] % (Auto) 20.3 H, Eos % (Auto) 1.4, Baso % (Auto) 0.3, Absolute Neuts (auto) 1.0 L, Absolute Lymphs (auto) 1.28, Nucleated RBC % 0, Differential Comment SCANNED 06/28/22 04:50: Sodium 138, Potassium 3.6, Chloride 103, Carbon Dioxide 27.0, Anion Gap 8, BUN 16, Creatinine 0.63, Estim Creat Clear Calc 42.62, Est GFR (MDRD) Af Amer 119, Est GFR (MDRD) Non-Af 98, BUN/Creatinine Ratio 25.5 H, Glucose 109 H, Calcium 8.8, Total Bilirubin 0.20, AST 13 L, ALT 19, Alkaline Phosphatase 60, Total Protein 6.3 L, Albumin 3.0 L, Globulin 3.3, Albumin/Globulin Ratio 0.9 06/28/22 06:33: POC Glucose 110 H 06/28/22 11:29: POC Glucose 103 Rhythm Strip Rhythm Strip: A-fib Ectopy: None Charges/Coding Visit Charges Office Visits / Consults: 48054 IP Consult L4 (includes 30 minute consultation and record review, 45 minutes at bedside in unit for procedure, CPAP management, and post-procedure recovery.)
[2022-06-28] MEDS: Magnesium Chloride 64 MG Delay Rel.Tablet 128 MG PO (14:27)
[2022-06-28] MEDS: Furosemide 20 MG Tablet PO (14:28)
[2022-06-28] MEDS: Sotalol Hydrochloride 80 MG Tablet 120 MG PO ×2 (14:28→21:21)
[2022-06-28] MEDS: Pantoprazole Sodium 40 MG Tablet PO ×2 (14:28→21:21)
[2022-06-28] MEDS: Ezetimibe 10 MG Tablet PO (14:28)
--- NOTE | 2022-06-28 14:34 | CASEMGMT ---
Patient is active with [facility]. Patient's case finisher is Marvin. will continue to follow and notify Marvin when patient is being discharged. Aminta DOMINGUEZ
--- NOTE | 2022-06-28 15:51 | PN.CC_ITS ---
Objective Data Objective Data Post-procedure followup visit: Patient has remained in NSR since cardioversion at noon. She is awake and alert today, with no complaints. Denies pain at pad sites She has no recollection of the procedure, consistent with desired benzodiazepine amnestic effect. Exam without I have changed albuterol to atrovent, to decrease arrhythmogenic potential of her inhalers. I recommend 20 mg BID pantoprazole PO, down from 40 mg daily, due to prolonged QT on post-cardioversion EKG. Vital Signs: Vital Signs Temp Pulse Resp BP Pulse Ox O2 Del Method 98.2 F 76 18 132/57 H 97 Room Air 06/28/22 09:00 06/28/22 15:00 06/28/22 15:00 06/28/22 15:00 06/28/22 15:00 06/28/22 15:00 Oxygen Delivery Method Room Air Weight: 192 lb 7.417 oz Body Mass Index (BMI) 33.0 Intake & Output: Intake and Output for Last 24 Hours 06/26/22 06/27/22 06/28/22 23:59 23:59 23:59 Intake Total 93.09 / 98.09 627 / 627 Output Total 850 / 850 Balance 93.09 / 98.09 -223 / -223 Lab / Micro Data Result Diagrams: 06/28/22 04:50 06/28/22 04:50 Labs: Laboratory Results - last 24 hr 06/27/22 16:57: Troponin I High Sens 13 06/27/22 17:09: POC Glucose 95 06/27/22 21:59: POC Glucose 108 H 06/28/22 04:50: WBC 2.9 L, RBC 3.71 L, Hgb 10.8 L, Hct 33.0 L, MCV 88.9, MCH 29.1, MCHC 32.7, RDW Std Deviation 44.6 H, RDW Coeff of Nabor 13.8, Plt Count 231, MPV 10.4, Immature Gran % (Auto) 0.300, Neut % (Auto) 33.6 L, Lymph % (Auto) 44.1 H, [place] % (Auto) 20.3 H, Eos % (Auto) 1.4, Baso % (Auto) 0.3, Absolute Neuts (auto) 1.0 L, Absolute Lymphs (auto) 1.28, Nucleated RBC % 0, Differential Comment SCANNED 06/28/22 04:50: Sodium 138, Potassium 3.6, Chloride 103, Carbon Dioxide 27.0, Anion Gap 8, BUN 16, Creatinine 0.63, Estim Creat Clear Calc 42.62, Est GFR (MDRD) Af Amer 119, Est GFR (MDRD) Non-Af 98, BUN/Creatinine Ratio 25.5 H, Glucose 109 H, Calcium 8.8, Total Bilirubin 0.20, AST 13 L, ALT 19, Alkaline Ph osphatase 60, Total Protein 6.3 L, Albumin 3.0 L, Globulin 3.3, Albumin/Globulin Ratio 0.9 06/28/22 06:33: POC Glucose 110 H 06/28/22 11:29: POC Glucose 103 Rhythm Strip Rhythm Strip: A-fib Ectopy: None
[2022-06-28 17:05] LABS: Bedside Glucose 139 mg/dL (74-106)
[2022-06-28] MEDS: Fenofibrate 48 MG Tablet PO (18:04)
[2022-06-28] MEDS: Rivaroxaban 20 MG Tablet PO (18:04)
[2022-06-28] MEDS: DULoxetine Hcl 60 MG Capsule PO (21:22)
[2022-06-28 22:46] LABS: Bedside Glucose 140 mg/dL (74-106)
[2022-06-29] VITALS (8 sets, daily range): BP systolic 139–156; BP diastolic 72–74; PULSE 65–82; RESP 16–20; TEMP 36.6–36.7; O2SAT 94–97
[2022-06-29] MEDS: LORazepam 0.5 MG Tablet PO (04:45)
[2022-06-29 05:18] LABS: Absolute Lymphocyte Count 1.13 X10^3/uL (0.83-4.51); Absolute Neutrophil Count 2.1 X10^3/uL (2.0-7.7); Basophil# 0.01 X10^3/uL; Basophil% 0.3 % (0-1); Eosinophil# 0.04 X10^3/uL; Hematocrit 33.7 % (37-47); Hemoglobin 10.4 g/dL (12.0-15.0); Lymphocyte # 1.13 X10^3/ul (0.83-4.51); Mean Corp Hgb Conc 30.9 g/dL (32-36); Mean Corpuscular Hgb 28.1 pg (27.0-32.0); Mean Corpuscular Volume 91.1 fL (81-99); Mean Platelet Vol. 9.9 fl (6.2-12.0); Monocyte# 0.61 X10^3/uL; Monocyte% 15.6 % (0-10); NRBC Flagged by Analyzer 0 % (0-5); Neutrophil # 2.07 X10^3/uL (2.7-7.7); Neutrophil % 53.1 % (47-70); Platelet Count 234 K/mm3 (150-450); RBC Distribution Width CV 13.8 % (11.6-14.6); RBC Distribution Width SD 45.2 fl (35.1-43.9); White Blood Count 3.9 K/mm3 (4.4-11.0)
[2022-06-29 05:39] LABS: Anion Gap 9 (5-15); BUN 26 mg/dL (7-18); BUN/Creat Ratio 30.3 RATIO (10-20); Chloride 102 mmol/L (98-107); Creatinine, Serum 0.86 mg/dL (0.55-1.02); EST Glomerular Filtration Rate 69 mL/min (>60); Est Glom Filt Rate - Afr Amer 83 mL/min (>60); Estimated Creatinine Clearance 49.56 ml/min; Glucose 131 mg/dL (74-106); Potassium 4.1 mmol/L (3.5-5.1); Sodium Level 136 mmol/L (136-145)
[2022-06-29] MEDS: busPIRone 15 MG TABLET PO ×2 (06:41→13:23)
[2022-06-29 07:06] LABS: Bedside Glucose 118 mg/dL (74-106)
[2022-06-29] MEDS: Budesonide Respules 0.5 MG/2 ML AMPUL.NEB. INHALATION (07:27)
--- NOTE | 2022-06-29 08:25 | PN.CARD_ITS ---
Subjective Subjective The patient is awake and alert. She has no new acute complaints. Objective Data Vital Signs: Vital Signs Temp Pulse Resp BP Pulse Ox O2 Del Method 97.9 F 72 20 H 156/72 H 95 Room Air 06/29/22 03:15 06/29/22 07:40 06/29/22 07:40 06/29/22 03:15 06/29/22 07:59 06/29/22 07:59 Oxygen Delivery Method Room Air Weight: 192 lb 7.417 oz Body Mass Index (BMI) 33.0 Intake & Output: Intake and Output for Last 24 Hours 06/27/22 06/28/22 06/29/22 23:59 23:59 23:59 Intake Total 93.09 / 98.09 977 / 977 Output Total 850 / 850 Balance 93.09 / 98.09 127 / 127 Lab / Micro Data Result Diagrams: 06/29/22 05:08 06/29/22 05:08 Labs: Laboratory Results - last 24 hr 06/28/22 11:29: POC Glucose 103 06/28/22 16:43: POC Glucose 139 H 06/28/22 21:20: POC Glucose 140 H 06/29/22 05:08: WBC 3.9 L, RBC 3.70 L, Hgb 10.4 L, Hct 33.7 L, MCV 91.1, MCH 28.1, MCHC 30.9 L D, RDW Std Deviation 45.2 H, RDW Coeff of [place] 13.8, Plt Count 234, MPV 9.9, Immature Gran % (Auto) 1.000 H, Neut % (Auto) 53.1, Lymph % (Auto) 29.0, [place] % (Auto) 15.6 H, Eos % (Auto) 1.0, Baso % (Auto) 0.3, Absolute Neuts (auto) 2.1, Absolute Lymphs (auto) 1.13, Nucleated RBC % 0 06/29/22 05:08: Sodium 136, Potassium 4.1, Chloride 102, Carbon Dioxide 25.0, Anion Gap 9, BUN 26 H, Creatinine 0.86, Estim Creat Clear Calc 49.56, Est GFR (MDRD) Af Amer 83, Est GFR (MDRD) Non-Af 69, BUN/Creatinine Ratio 30.3 H, Gluco se 131 H, Calcium 9.0 06/29/22 06:39: POC Glucose 118 H Rhythm Strip Rhythm Strip: A-fib Ectopy: None Cardiology Labs/Tests 06/29/22 05:08: WBC 3.9 L, RBC 3.70 L, Hgb 10.4 L, Hct 33.7 L, MCV 91.1, MCH 28.1, MCHC 30.9 L D, Plt Count 234, MPV 9.9, Immature Gran % (Auto) 1.000 H, N eut % (Auto) 53.1, Lymph % (Auto) 29.0, [place] % (Auto) 15.6 H, Eos % (Auto) 1.0, Baso % (Auto) 0.3, Absolute Neuts (auto) 2.1, Nucleated RBC % 0 06/29/22 05:08: Sodium 136, Potassium 4.1, Chloride 102, Carbon Dioxide 25.0, Anion Gap 9, BUN 26 H, Creatinine 0.86, Est GFR (MDRD) Af Amer 83, Est GFR (MDRD) Non-Af 69, BUN/Creatinine Ratio 30.3 H, Glucose 131 H, Calcium 9.0 Rhythm: Sinus rhythm Physical Exam Const alert, oriented x3 and no apparent distress Orientation / Consciousness: awake HEENT normocephalic, head/scalp atraumatic and hearing grossly normal bilaterally Eyes PERRL, EOMs intact bilaterally, conjunctivae normal and no scleral icterus Neck full ROM, supple and no JVD Carotids: normal carotid upstroke Chest Chest Narrative: Right sided port placement Resp normal respiratory effort and clear to auscultation bilaterally Cardio regular rate and regular rhythm Heart Sounds: S1 normal and S2 normal GI normal to inspection, nondistended, normoactive bowel sounds Extremity no pedal edema Skin no rashes or lesions noted Psych mental status grossly normal Assessment & Plan Assessment/Plan (1) Atrial fibrillation and flutter: PLAN: The patient has had recurrence of her atrial fibrillation/flutter. The patient has had recurrence of her atrial dysrhythmia. She is now status post synchronized biphasic DC cardioversion. She did regain sinus rhythm. (2) Status post catheter ablation of atrial fibrillation: PLAN: The patient has undergone EPS/RFA as previously noted. Again she is now status post synchronized biphasic DC cardioversion. She did regain sinus rhythm. (3) Atherosclerotic heart disease of [place] coronary artery without angina pectoris: QUALIFIERS: [place] vs. transplanted heart: [place] heart Qualified Code(s): I25.10 - Atherosclerotic heart disease of [place] coronary artery without angina pectoris PLAN: The patient has a history of CAD as noted. Its been thought to be nonobstructive. She will continue risk factor modification medical therapy. (4) HLD (hyperlipidemia): QUALIFIERS: Hyperlipidemia type: pure hypercholesterolemia Qualified Code(s): E78.00 - Pure hypercholesterolemia, unspecified; E78.0 - Pure hypercholesterolemia PLAN: Again the patient has a history of hyperlipidemia. She will continue medical therapy as tolerated. (5) Essential hypertension: PLAN: The patient's blood pressure will need to be monitored with her medicines adjusted as needed. (6) COPD (chronic obstructive pulmonary disease): QUALIFIERS: COPD type: unspecified COPD Qualified Code(s): J44.9 - Chronic obstructive pulmonary disease, unspecified PLAN: The patient has a history of COPD which may be a contributing factor to her underlying atrial dysrhythmia. At the present time she appears without acute change. She will continue under the evaluation care of pulmonology/critical care medicine. (7) SEVEN (obstructive sleep apnea): PLAN: The patient has a history of SEVEN. Again, this may be a contributing factor to her atrial dysrhythmia. Again she will continue under the evaluation and care of [facility] and [facility]. Addt'l Comments Overall, at the present time, the patient appears to be symptomatically stable. She will continue her current medical therapy. Will be followed as an outpatient for any obvious recurrence of her atrial dysrhythmia. If she has recurrences and consideration to be given as to whether or not she needs continued rate control and anticoagulant therapy versus reevaluation by electrophysiology with respect to adjustment of her medications and/or consideration for any other form of electrophysiologic procedures/intervention. This note was generated using a voice recognition system and there may be incorrect words, spelling or punctuation that were not noted when reviewing the office note prior to saving. Procedure Criteria Type of Procedure Procedure Type: Elective Elective Risks - COVID COVID Risk Discussion: The surgeon/proceduralist and patient have discussed in detail the risk of exposure to and/or potential harm posed by the COVID-19 virus with having a surgery/procedure at this time versus the risk of delaying the surgery/procedure. It is not possible to know either the risk of delaying the surgery or procedure or chance of getting an infection with perfect accuracy, but a joint decision was made between the patient and the surgeon/proceduralist to proceed at this time with the scheduled surgery/procedure as indicated on the consent form.
[2022-06-29] MEDS: Magnesium Chloride 64 MG Delay Rel.Tablet 128 MG PO (09:11)
[2022-06-29] MEDS: Furosemide 20 MG Tablet PO (09:13)
[2022-06-29] MEDS: Ezetimibe 10 MG Tablet PO (09:14)
[2022-06-29] MEDS: Pantoprazole Sodium 40 MG Tablet PO (09:14)
[2022-06-29] MEDS: Sotalol Hydrochloride 80 MG Tablet 120 MG PO (09:15)
[2022-06-29 11:26] LABS: Bedside Glucose 162 mg/dL (74-106)
[2022-06-29] MEDS: Insulin Lispro 100 UNIT/ML INSULN.PEN SC (11:38)
--- NOTE | 2022-06-29 11:40 | CASEMGMT ---
Addendum entered by Taylor So 06/29/22 13:50: Bryan at [facility] updated that pt will d/c home today and declines any further therapy. Jody RN CM Original Note: This RN CM to room to discuss discharge plan with pt. Before this RN CM could even introduce self, pt started shaking head no and this RN CM inquired why she was shaking head and pt states 'I don't need anything at home, I am fine.' Pt declines HHC and OP therapy and states plan is to go home. Pt is agreeable for HHC list to be left at bedside. This RN CM provided pt with list of HHC providers including quality and resource use data and consistent with with pt's preferred geographic region, medical needs, and insurance network. Pt aware to alert this RN CM if she changes her mind at all, voices understanding and states 'I would use [facility], if I decided to have HHC.' Pt states recently had [facility] but 'they didn't help much.' CM to follow. Jody RN CM
--- NOTE | 2022-06-29 12:11 | DCINST_ITS ---
Discharge Instructions Diet Discharge Diet: Low fat / Low cholesterol and Carb Control Diet Activity Discharge Activity: Return to Normal Activity Dressing / Incision Call your doctor if you observe: Fever of 101 or Higher, Shortness of breath, Dizziness, Fainting spells, Swelling in the ankles, Chest pain and Increased palpitations (irregular heartbeat) Follow Up Care Test Results: Test results from this visit will be discussed in further detail at your follow- up appointment, if applicable. Discharge Plan Admission Admit Date/Time: 06/27/22 14:26 Attending Provider: Hakan Chilel Primary Care Provider: Quique Mims Consulting Providers: Consuelo Pereira ; Ezekiel Perez Discharge Orders/Prescriptions Prescriptions: Continued (DME) compress.stocking,knee,reg,lrg Misc See Rx Instructions .ROUTE .MEDSUPPLY Qty: 2 1RF Rx Instructions: wear daily for venous insufficiency 20-30 mmHg magnesium oxide 400 mg magnesium capsule 800 mg PO DAILY loperamide 2 mg tablet 2 mg PO Q6H PRN (Reason: Diarrhea) albuterol sulfate [Ventolin HFA] 90 mcg/actuation HFA aerosol inhaler 1 inh inhalation ONCE alendronate [Fosamax] 70 mg tablet 70 mg PO QMONTH metformin 500 mg tablet 500 mg PO BID Rx Instructions: May increase to 1000 mg per day after chemo if needed furosemide 40 mg tablet 20 mg PO DAILY docusate sodium [Colace] 100 mg Capsule 100 mg PO BID PRN (Reason: Constipation) potassium chloride [Klor-Con M20] 20 mEq tablet,ER particles/crystals 20 meq PO DAILY duloxetine 60 mg capsule,delayed release(DR/EC) 60 mg PO QDAY cholecalciferol (vitamin D3) 1,250 mcg (50,000 unit) tablet 50,000 unit PO QWEEK acetaminophen 500 mg Tablet 1,000 mg PO Q6H PRN (Reason: Pain Score 1-5) Qty: 0 0RF buspirone 15 mg tablet 15 mg PO TID fenofibrate micronized 67 mg capsule 67 mg PO QPM sotalol 120 mg tablet 120 mg PO BID pantoprazole 40 mg tablet,delayed release (DR/EC) 40 mg PO BID Xarelto 20 mg tablet 20 mg PO DINNER (DME) lancing device Misc See Rx Instructions .ROUTE .MEDSUPPLY Qty: 1 0RF Rx Instructions: As directed ezetimibe [Zetia] 10 mg tablet 10 mg PO QDAY Qty: 90 3RF fluticasone furoate-vilanterol [Breo Ellipta] 200-25 mcg/dose blister with device 1 inh inhalation QDAY Qty: 60 1RF Rx Instructions: after inhalation, rinse mouth with water and spit out; do not swallow lorazepam [Ativan] 0.5 mg tablet 0.5 mg PO BID PRN (Reason: Anxiety) Qty: 30 0RF Label Comments: ran out in April Referrals / Follow Up: Quique Mims MD [Primary Care Provider] - Within 1 Week Ezekiel Perez MD [Med Staff - Active Staff] - Within 1 Month Disposition Disposition (needs filled in before D/C Order can be placed): Home, Self Care
--- NOTE | 2022-06-29 13:47 | DS.PCM_ITS ---
Providers Date of Admission: 06/27/22 Primary Care Physician: Dr. Quique Mims MD Consultations 06/27/22 16:21 Consult: Cardiology Routine Consulting Provider: Ezekiel Perez Reason for Consult: A. fib with RVR EMERGENT Consult: No MD Notified: Yes Date Notified: 06/27/22 Time Notified: 17:19 Method of Notification: Text Reason For Visit: AFIB WITH RVR Diagnosis Discharge Diagnosis (1) Atrial fibrillation and flutter: Status: Acute Code(s): I48.91 - Unspecified atrial fibrillation; I48.92 - Unspecified atrial flutter (2) Status post catheter ablation of atrial fibrillation: Status: Acute Code(s): Z98.890 - Other specified postprocedural states (3) Atherosclerotic heart disease of [place] coronary artery without angina pectoris: Status: Chronic Code(s): I25.10 - Atherosclerotic heart disease of [place] coronary artery without angina pectoris Qualifiers: [place] vs. transplanted heart: [place] heart Qualified Code(s): I25.10 - Atherosclerotic heart disease of [place] coronary artery without angina pectoris (4) HLD (hyperlipidemia): Status: Chronic Code(s): E78.5 - Hyperlipidemia, unspecified Qualifiers: Hyperlipidemia type: pure hypercholesterolemia Qualified Code(s): E78.00 - Pure hypercholesterolemia, unspecified; E78.0 - Pure hypercholesterolemia (5) Essential hypertension: Status: Chronic Code(s): I10 - Essential (primary) hypertension (6) COPD (chronic obstructive pulmonary disease): Status: Chronic Code(s): J44.9 - Chronic obstructive pulmonary disease, unspecified Qualifiers: COPD type: unspecified COPD Qualified Code(s): J44.9 - Chronic obstructive pulmonary disease, unspecified (7) SEVEN (obstructive sleep apnea): Status: Chronic Code(s): G47.33 - Obstructive sleep apnea (adult) (pediatric) Plan 1. A. fib with RVR/HTN/HLD/CAD ? Blood pressures are stable ? She is chronically anticoagulated on Xarelto ? Discussion with cardiology plan for cardioversion ? Continue with her sotalol currently on a Cardizem ? She did have a recent echo with an EF of 70% and stage III diastolic dysfunction ? Continue with her home cholesterol medications 2. DM2 ? Hold metformin ? Continue sliding scale insulin ? Accu-Cheks AC at bedtime ? We will monitor and make adjustments as necessary 3. Ovarian CA ? Status post radical CHENTE/BSO 4. Osteoporosis ? Continue alendronate ? Stable 5. Anxiety/depression ? Stable ? continue on BuSpar, Ativan, Cymbalta 6. Recent GI bleed ? Stable ? Continue on PPI twice daily 8. COPD/SEVEN ? Not in acute exacerbation ?We will continue on Breo, breathing treatments as needed DVT: Xarelto Medications at Discharge Home Medications compress.stocking,knee,reg,lrg #2 ea 05/06/19 lancing device #1 ea 12/29/20 metformin 500 mg tablet 500 mg PO BID blood sugars 02/11/22 magnesium oxide 800 mg PO DAILY supplement 04/08/22 cholecalciferol (vitamin D3) 1,250 mcg (50,000 unit) tablet 50,000 unit PO QWEEK supplement 05/04/22 docusate sodium 100 mg capsule (Colace) 100 mg PO BID PRN Constipation 05/04/22 duloxetine 60 mg capsule,delayed release 60 mg PO QDAY depression 05/04/22 potassium chloride 20 mEq tablet,extended release(part/cryst) (Klor-Con M) 20 meq PO DAILY supplement 05/04/22 acetaminophen 500 mg tablet 1,000 mg PO Q6H PRN Pain Score 1-5 #0 tabs 05/16/22 albuterol sulfate 90 mcg/actuation aerosol inhaler (Ventolin HFA) 1 inh inhalation ONCE SOB 05/23/22 alendronate 70 mg tablet (Fosamax) 70 mg PO QMONTH bone 05/23/22 ezetimibe 10 mg tablet (Zetia) 10 mg PO QDAY cholesterol #90 tabs 06/03/22 fluticasone furoate 200 mcg-vilanterol 25 mcg/dose inhalation powder (Breo Ellipta) 1 inh inhalation QDAY breathing #60 ea 06/10/22 furosemide 40 mg tablet 20 mg PO DAILY fluid 06/15/22 buspirone 15 mg tablet 15 mg PO TID mood 06/27/22 fenofibrate micronized 67 mg capsule 67 mg PO QPM cholesterol 06/27/22 loperamide 2 mg tablet 2 mg PO Q6H PRN Diarrhea 06/27/22 lorazepam 0.5 mg tablet (Ativan) 0.5 mg PO BID PRN Anxiety #30 tabs 06/27/22 pantoprazole 40 mg tablet,delayed release 40 mg PO BID GERD 06/27/22 rivaroxaban 20 mg tablet (Xarelto) 20 mg PO DINNER afib 06/27/22 sotalol 120 mg tablet 120 mg PO BID heart 06/27/22 Hospital Course Operations None Procedures Cardioversion Summary of Care Provided Minutes Spent on Discharge: 43 Hospital Course: Per HPI: ANDREW VELAZQUEZ, is a 76 F who presents A. fib with RVR, noticed 5 days ago by her home health nurse.? Patient has past medical history of paroxysmal atrial fibrillation, status post ablation about 3 years ago, on sotalol and Xarelto, CAD, hypertension, hyperlipidemia, who follows with [facility]. Patient also has history of ovarian cancer status post CHENTE/BSO, follows with [facility] oncology and is on chemotherapy.? She last had chemotherapy on June 13, 2022. Her recent 2D echo in April 14 showed EF of 70%, stage III diastolic dysfunction Patient had gone into see her primary agriculture laborer and told her agriculture laborer that her heart rate was elevated. She denies any chest pain or dizziness or palpitations or shortness of breath or diaphoresis.? She denies any orthopnea or PND.? She lives with her and her daughter. Her vitals in the ED showed blood pressure 151/104, heart rate was 126, respiratory rate 18, temperature 97.4 F, oxygen sat was 99% on room air.? Patient WBC count 3.3, hemoglobin 10.5, platelet count 243. Her CMP was unremarkable. Chest X-ray was unremarkable. Hospital Course: 1. A. fib with RVR/HTN/HLD/CAD?76-year-old female with a history of A. fib presented in RVR that was noticed by her home health nurse a few days prior. Sh chris did have an ablation about 3 years ago and has been maintained on sotalol and Xarelto. On presentation she had cardiology consulted who proceeded with cardioversion. She was cardioverted back into normal sinus rhythm therefore her Cardizem was discontinued. She has been maintained on all of her baseline home medications and will need to follow-up with cardiology as an outpatient. I discussed with her the plan for discharge today and she expressed understanding of the risk and benefits of going home and would like to go home today. 2. Type 2 diabetes, ovarian cancer history, osteoporosis, anxiety, depression, history of GI bleed, COPD, SEVEN are all chronic medical conditions which complicate her care. Her home medications were continued where appropriate Physical Exam Narrative General: Alert, Oriented x3, Cooperative, No apparent distress HEENT: Atraumatic, PERRLA, EOMI, Normocephalic Oral: Moist Mucosa Neck: Supple, No JVD Lungs: Diminished, Normal air movement, No rhonchi, No wheeze, No rales Cardiovascular: Regular rate, regular rhythm, Normal S1, Normal S2, No murmurs Abdomen: Soft, Non Tender, Non-Distended, No Hepato-splenomegaly Extremities: No edema, Capillary Refill Less than 3 Seconds Skin: No rashes, No breakdown Musculoskeletal: No Tenderness to Palpation of Joints or Extremities Neurological: Cranial nerves II-XII grossly intact, Motor Exam 5/5 strength thr oughout, Sensory exam intact to light touch and pain Psych/Mental Status: Normal Affect, Appropriate Weight / BMI Weight Weight: 192 lb 7.417 oz Body Mass Index (BMI) 33.0 ABG / Lab / Microbiology Data Result Diagrams: 06/29/22 05:08 06/29/22 05:08 Laboratory: Laboratory Results - last 24 hr 06/28/22 16:43: POC Glucose 139 H 06/28/22 21:20: POC Glucose 140 H 06/29/22 05:08: WBC 3.9 L, RBC 3.70 L, Hgb 10.4 L, Hct 33.7 L, MCV 91.1, MCH 28.1, MCHC 30.9 L D, RDW Std Deviation 45.2 H, RDW Coeff of [place] 13.8, Plt Count 234, MPV 9.9, Immature Gran % (Auto) 1.000 H, Neut % (Auto) 53.1, Lymph % (Auto) 29.0, [place] % (Auto) 15.6 H, Eos % (Auto) 1.0, Baso % (Auto) 0.3, Absolute Neuts (auto) 2.1, Absolute Lymphs (auto) 1.13, Nucleated RBC % 0 06/29/22 05:08: Sodium 136, Potassium 4.1, Chloride 102, Carbon Dioxide 25.0, Anion Gap 9, BUN 26 H, Creatinine 0.86, Estim Creat Clear Calc 49.56, Est GFR (MDRD) Af Amer 83, Est GFR (MDRD) Non-Af 69, BUN/Creatinine Ratio 30.3 H, Glucose 131 H, Calcium 9.0 06/29/22 06:39: POC Glucose 118 H 06/29/22 11:07: POC Glucose 162 H D/C Instructions Discharge Diet: Low fat / Low cholesterol and Carb Control Diet Call your doctor if you observe: Fever of 101 or Higher, Shortness of breath, Dizziness, Fainting spells, Swelling in the ankles, Chest pain and Increased palpitations (irregular heartbeat) Meaningful Use Info Meaningful Use Diagnoses (Choose all that apply): None applicable Discharge Plan Admission Admit Date/Time: 06/27/22 14:26 Attending Provider: Hakan Chilel Primary Care Provider: Quique Mims Consulting Providers: Consuelo Pereira ; Ezekiel Perez Discharge Orders/Prescriptions Prescriptions: Continued (DME) compress.stocking,knee,reg,lrg Misc See Rx Instructions .ROUTE .MEDSUPPLY Qty: 2 1RF Rx Instructions: wear daily for venous insufficiency 20-30 mmHg magnesium oxide 400 mg magnesium capsule 800 mg PO DAILY loperamide 2 mg tablet 2 mg PO Q6H PRN (Reason: Diarrhea) albuterol sulfate [Ventolin HFA] 90 mcg/actuation HFA aerosol inhaler 1 inh inhalation ONCE alendronate [Fosamax] 70 mg tablet 70 mg PO QMONTH metformin 500 mg tablet 500 mg PO BID Rx Instructions: May increase to 1000 mg per day after chemo if needed furosemide 40 mg tablet 20 mg PO DAILY docusate sodium [Colace] 100 mg Capsule 100 mg PO BID PRN (Reason: Constipation) potassium chloride [Klor-Con M20] 20 mEq tablet,ER particles/crystals 20 meq PO DAILY duloxetine 60 mg capsule,delayed release(DR/EC) 60 mg PO QDAY cholecalciferol (vitamin D3) 1,250 mcg (50,000 unit) tablet 50,000 unit PO QWEEK acetaminophen 500 mg Tablet 1,000 mg PO Q6H PRN (Reason: Pain Score 1-5) Qty: 0 0RF buspirone 15 mg tablet 15 mg PO TID fenofibrate micronized 67 mg capsule 67 mg PO QPM sotalol 120 mg tablet 120 mg PO BID pantoprazole 40 mg tablet,delayed release (DR/EC) 40 mg PO BID Xarelto 20 mg tablet 20 mg PO DINNER (DME) lancing device Misc See Rx Instructions .ROUTE .MEDSUPPLY Qty: 1 0RF Rx Instructions: As directed ezetimibe [Zetia] 10 mg tablet 10 mg PO QDAY Qty: 90 3RF fluticasone furoate-vilanterol [Breo Ellipta] 200-25 mcg/dose blister with device 1 inh inhalation QDAY Qty: 60 1RF Rx Instructions: after inhalation, rinse mouth with water and spit out; do not swallow lorazepam [Ativan] 0.5 mg tablet 0.5 mg PO BID PRN (Reason: Anxiety) Qty: 30 0RF Label Comments: ran out in April Referrals / Follow Up: Ezekiel Perez MD [Med Staff - Active Staff] - 07/14/22 11:00 am Dinorah Foster PA [Non-Staff -Ordering Privileges] - 07/06/22 9:00 am Disposition Disposition (needs filled in before D/C Order can be placed): Home, Self Care Charges/Coding Visit Charges Inpatient E&M: 37181 Disch Hosp
[2022-06-29] MEDS: 0.9% Saline Lock 10 ML Syringe IV (14:57)
== END 2022-06-29 15:45 | disposition home or self-care (01) | DRG 309 ==
LOC: ED 14:33 → PCU 15:24
PROVIDERS: Admitting Provider Internal Medicine; Emergency Provider Emergency Medicine; PCP Internal Medicine; Visit Provider Family Medicine
DX: I48.20 Chronic atrial fibrillation, unspecified (principal); I50.32 Chronic diastolic (congestive) heart failure; C56.9 Malignant neoplasm of unspecified ovary; I11.0 Hypertensive heart disease with heart failure; E11.9 Type 2 diabetes mellitus without complications; J44.9 Chronic obstructive pulmonary disease, unspecified; Z79.4 Long term (current) use of insulin; I48.92 Unspecified atrial flutter; I25.10 Atherosclerotic heart disease of native coronary artery without angina pectoris; G47.33 Obstructive sleep apnea (adult) (pediatric); E87.6 Hypokalemia; E78.00 Pure hypercholesterolemia, unspecified; F41.9 Anxiety disorder, unspecified; Z79.01 Long term (current) use of anticoagulants; M81.0 Age-related osteoporosis without current pathological fracture; Z90.710 Acquired absence of both cervix and uterus; Z79.83 Long term (current) use of bisphosphonates; F32.A Depression, unspecified; I34.81 Nonrheumatic mitral (valve) annulus calcification; Z92.21 Personal history of antineoplastic chemotherapy; Z79.899 Other long term (current) drug therapy
CPT/HCPCS: 36415; 36591; 71046; 80048; 80053; 82962; 84484; 85025; 85610; 85730; 93005; 94640; 94762; 97162; 97166; 99251; 99285; A4216; G0463

== ENCOUNTER → 2022-08-04 | Outpatient (CLI) | payer MEDICARE, MEDICAID, OTHER, SELFPAY ==
[2022-08-04 12:54] LABS: Ferritin 20 ng/mL (8-252)
[2022-08-05 15:08] LABS: Cytoplasmic Ab (C-ANCA) <1:20 titer (Neg:<1:20); Endomysial Antibody IgA Negative (Negative); Immunoglobulin A 66 mg/dL (64-422)
[2022-08-05 17:16] LABS: Anti-Smooth Muscle ABS 11 Units (0-19); Perinuclear Ab (P-ANCA) <1:20 titer (Neg:<1:20); t-Transglutaminase IgA <2 U/mL (0-3)
== END | disposition home or self-care (01) ==
PROVIDERS: PCP Internal Medicine; Referring Provider Internal Medicine Gastroenterology; Visit Provider Internal Medicine Gastroenterology
DX: R10.9 Unspecified abdominal pain (principal); Z92.89 Personal history of other medical treatment; I49.8 Other specified cardiac arrhythmias
CPT/HCPCS: 36415; 82728; 82784; 83516; 86255; 86256

== ENCOUNTER → 2022-08-30 | Outpatient (CLI) | payer MEDICARE, MEDICAID, OTHER, SELFPAY ==
[2022-08-30 12:33] LABS: Anion Gap 9 (5-15); BUN 27 mg/dL (7-18); BUN/Creat Ratio 30.2 RATIO (10-20); Calcium,Total 9.8 mg/dL (8.5-10.1); Chloride 104 mmol/L (98-107); Creatinine, Serum 0.89 mg/dL (0.55-1.02); EST Glomerular Filtration Rate 66 mL/min (>60); Est Glom Filt Rate - Afr Amer 79 mL/min (>60); Glucose 84 mg/dL (74-106); Potassium 4.1 mmol/L (3.5-5.1); Sodium Level 143 mmol/L (136-145)
[2022-08-30 13:31] LABS: Microalbumin,Random Urine 24.7 mg/L (NO RANGE EST.)
[2022-08-30 14:11] LABS: Hemoglobin A1c 6.1 % (3.8-5.6)
== END | disposition home or self-care (01) ==
PROVIDERS: Nurse Practitioner Family; PCP Internal Medicine; Referring Provider Internal Medicine; Visit Provider Internal Medicine
DX: I11.0 Hypertensive heart disease with heart failure (principal); I50.32 Chronic diastolic (congestive) heart failure; E11.9 Type 2 diabetes mellitus without complications; Z79.899 Other long term (current) drug therapy
CPT/HCPCS: 36415; 80048; 82043; 82570; 83036

== ENCOUNTER → 2022-09-07 | Outpatient (CLI) | payer MEDICARE, MEDICAID, OTHER, SELFPAY ==
--- NOTE | 2022-09-07 09:31 | BD_ITS ---
STUDY: DUAL ENERGY X-RAY ABSORPTIOMETRY / DXA REASON FOR EXAM: Female, 76 years old. Osteoporosis on Fosamax TECHNIQUE: Bone Mineral Density (BMD) measurements of lumbar spine and bilateral hips were obtained. COMPARISON: Comparison is made with prior study 05/22/2018. FINDINGS: Lumbar Spine (L1-L4): g/cm2 (1.030) / T-score (-0.2) / Z-score (2.2) Findings are suggestive of normal bone density with a low fracture risk. Left Femur Total: g/cm2 (0.773) / T-score (-1.4) / Z-score (0.4) Left Femoral Neck: g/cm2 (0.541) / T-score (-2.8) / Z-score (-0.7) Right Femur Total: g/cm2 (0.776) / T-score (-1.4) / Z-score (0.4) Right Femoral Neck: g/cm2 (0.662) / T-score (-1.7) / Z-score (0.4) The T-Scores on the most recent prior examination were: Lumbar Spine (L1-L4): There has been improvement of bone density since the previous examination. Left Femur Total: which represents an improvement of 7.6%. Right Femur Total: which represents an improvement of 10.2%. BD/Dexa Bone Density Study IMPRESSION: The patient is considered osteoporotic as outlined below according to World Loc Organization (WHO) criteria with a high fracture risk. There has been improvement of bone density since the previous examination. Reference Information: The T-score is the number of standard deviations above or below the standard which is normal for young adults at their peak bone mineral density. The World Health Organization (WHO) interprets the T-scores as follows: Above -1 Normal bone density Between -1 and -2.5 Osteopenia Equal to / or below -2.5 Osteoporosis As a practical clinical guideline, osteopenia may be graded as follows: Mild -1 through -1.5 Moderate -1.6 through -2.0 Severe -2.1 through -2.4 The Z-score is the number of standard deviations above or below age-matched controls. A Z-score of less than -1.5 would be considered abnormal. References: 1. NIH Osteoporosis and Related Bone Diseases www osteo.org 2. International Society for Clinical Densitometry www iscd.org 3. National Osteoporosis Foundation www nof.org Electronically Signed: Omar Reyes MD at 9:44 EST ,
== END | disposition home or self-care (01) ==
PROVIDERS: PCP Internal Medicine; Visit Provider Internal Medicine
DX: M81.0 Age-related osteoporosis without current pathological fracture (principal)
CPT/HCPCS: 77080

== ENCOUNTER → 2022-10-26 | Outpatient (CLI) | payer MEDICARE, MEDICAID, SELFPAY | END | disposition home or self-care (01) | LOC: SL 15:21 | PROVIDERS: PCP Internal Medicine; Visit Provider Nurse Practitioner Acute Care | DX: Z46.89 Encounter for fitting and adjustment of other specified devices (principal) ==

== ENCOUNTER 2023-02-04 07:27 | Emergency (ER) | payer MEDICARE, SELFPAY ==
[2023-02-04 07:29] VITALS: BP 133/90; PULSE 116; RESP 16; TEMP 36.5; O2SAT 99; BMI 39.1
--- NOTE | 2023-02-04 07:59 | EX.ED.DYSGE1 ---
HPI History of Present Illness Chief Complaint: Palpitations Narrative Narrative: 77-year-old female past medical history of ovarian cancer undergoing chemotherapy, had round of her chemotherapy performed yesterday. She also has a history of atrial fibrillation and is status post ablation. Around 5 PM yesterday evening she began feeling off like she does when she is in atrial fibrillation. She denies any chest pain or shortness of breath, but states that while she does not feel palpitations, when she feels like this she thinks she is in atrial fibrillation. She takes sotalol for this and used to see Dr. 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 She and her daughter states that at times when she has chemotherapy, she will go into atrial fibrillation. She had a procedure at the end of December for which she had to hold her Xarelto for 3 days. Hence, she has not had anticoagulation for 3 weeks straight. She admits those 3 days of dosing. She did state that she had to be cardioverted previously. [facility] Medical History Abdominal pain Acute exacerbation of chronic obstructive pulmonary disease (COPD) Acute respiratory failure with hypoxia and hypercarbia Anxiety Ascites Atherosclerotic heart disease of [place] coronary artery without angina pectoris CAD (coronary artery disease) CAD (coronary artery disease) Chronic atrial fibrillation with RVR Chronic obstructive pulmonary disease Debility Depression Diarrhea Diastolic congestive heart failure DM2 (diabetes mellitus, type 2) Essential hypertension Essential hypertension Flu vaccine need Grief reaction Hiatal hernia History of cardioversion (~06/28/22) HLD (hyperlipidemia) HTN (hypertension) Hypokalemia Junctional rhythm Long-term use of high-risk medication Morbid obesity Non-rheumatic mitral regurgitation Non-rheumatic tricuspid valve insufficiency NSTEMI (non-ST elevated myocardial infarction) Obstructive sleep apnea Ovarian cancer PAF (paroxysmal atrial fibrillation) Panic disorder Paroxysmal atrial fibrillation with rapid ventricular response Pelvic mass Port-A-Cath in place Preop cardiovascular exam Pulmonary HTN Sepsis SOB (shortness of breath) Spastic colon Streptococcal pneumonia Vitamin D deficiency Home Medications compress.stocking,knee,reg,lrg #2 ea 05/06/19 [Rx Last Taken Unknown] lancing device #1 ea 12/29/20 [Rx Last Taken Unknown] magnesium oxide 400 mg PO BID supplement 04/08/22 [History Last Taken 06/26/22] docusate sodium 100 mg capsule (Colace) 100 mg PO BID PRN Constipation 05/04/22 [History Last Taken Unknown] acetaminophen 500 mg tablet 1,000 mg (2 x 500 mg) PO Q6H PRN Pain Score 1-5 #0 tabs 05/16/22 [Rx Last Taken 06/26/22] albuterol sulfate 90 mcg/actuation aerosol inhaler (Ventolin HFA) 1 inh inhalation ONCE SOB 05/23/22 [History Last Taken Unknown] ezetimibe 10 mg tablet (Zetia) 10 mg PO QDAY cholesterol #90 tabs 06/03/22 [Rx Last Taken 06/27/22] loperamide 2 mg tablet 2 mg PO Q6H PRN Diarrhea 06/27/22 [History Last Taken Unknown] pantoprazole 40 mg tablet,delayed release 40 mg PO BID GERD 06/27/22 [History Last Taken 06/27/22] lisinopril 20 mg tablet 20 mg PO BID #180 tabs 07/14/22 [Rx Last Taken Unknown] duloxetine 60 mg capsule,delayed release 60 mg PO QDAY depression #90 caps 08/24/22 [Rx Last Taken Unknown] cholecalciferol (vitamin D3) 1,250 mcg (50,000 unit) tablet 50,000 unit PO QWEEK supplement #12 tabs 09/30/22 [Rx Last Taken Unknown] lorazepam 0.5 mg tablet (Ativan) 0.5 mg PO BID PRN Anxiety #30 tabs 11/01/22 [Rx Last Taken Unknown] amlodipine 5 mg tablet 5 mg PO QHS med increased by Dr. Ochoa. 11/08/22 [History Last Taken Unknown] hydrochlorothiazide 25 mg tablet 25 mg PO DAILY #90 tabs 11/09/22 [Rx Last Taken Unknown] potassium chloride 20 mEq tablet,extended release(part/cryst) (Klor-Con M) 20 meq PO DAILY Please give pt 3 refills. #90 tabs 11/16/22 [Rx Last Taken Unknown] furosemide 40 mg tablet 20 mg (1/2 x 40 mg) PO DAILY fluid #90 tabs 11/23/22 [Rx Last Taken Unknown] albuterol sulfate 90 mcg/actuation aerosol inhaler 2 puff inhalation Q4H PRN shortness of breath or wheezing #3 device 11/25/22 [Rx Last Taken Unknown] ibandronate 150 mg tablet 150 mg PO QMONTH #14 tabs 11/25/22 [Rx Last Taken Unknown] multivitamin 1 tab PO DAILY 11/25/22 [History Last Taken Unknown] buspirone 15 mg tablet 15 mg PO TID 12/12/22 [History Last Taken Unknown] fenofibrate micronized 134 mg capsule 134 mg PO QPM 12/12/22 [History Last Taken Unknown] fluticasone furoate 200 mcg-vilanterol 25 mcg/dose inhalation powder (Breo Ellipta) 1 inh inhalation DAILY 12/12/22 [History Last Taken Unknown] rivaroxaban 20 mg tablet (Xarelto) 20 mg PO DINNER afib #90 tabs 12/14/22 [Rx Last Taken Unknown] sotalol 120 mg tablet 120 mg PO BID heart #180 tabs 12/21/22 [Rx Last Taken Unknown] metformin 500 mg tablet 500 mg PO BID #180 tabs 01/30/23 [Rx Last Taken Unknown] Allergy/AdvReac Type Severity Reaction Status Date / Time amoxicillin Allergy Severe hives Verified 02/04/23 07:31 chlorhexidine Allergy Unknown red skin Verified 02/04/23 07:31 morphine Allergy Unknown headaches Verified 02/04/23 07:31 labetalol Allergy Unknown Verified 02/04/23 07:31 pitavastatin [From Livalo] Allergy Other Verified 02/04/23 07:31 simvastatin [From Zocor] Allergy Other Verified 02/04/23 07:31 atorvastatin [From Lipitor] AdvReac Unknown myalgias Verified 02/04/23 07:31 budesonide [From Symbicort] AdvReac Other Verified 02/04/23 07:31 formoterol [From Symbicort] AdvReac Other Verified 02/04/23 07:31 hydrocodone [From Vicodin] AdvReac Other Verified 02/04/23 07:31 Hhhdmoa-PIS-TcW Reductase AdvReac Other Verified 02/04/23 07:31 Inhibitor [Mihwwno-Aoj-Znm Reductase Inhibitor] Family History Mother Cancer leukemia Father Respiratory disease Grandfather Myocardial infarction Grandmother Myocardial infarction Son Diabetes Surgical History History of cataract surgery History of colonoscopy History of exploratory laparotomy History of hysterectomy History of surgery on right wrist History of tonsillectomy and adenoidectomy Status post catheter ablation of atrial fibrillation Social History household members: spouse Smoking Status: Never smoker alcohol intake: never substance use type: does not use caffeine: Yes Type: coffee Number of servings: 1 what type of physical activity do you participate in: none seatbelt use: always do you feel safe at home: Yes ROS ROS ED ROS Narrative Constitutional: No fever, no chills. HEENT: No sore throat. No neck pain. No loss of vision. No rhinorrhea. Cardiovascular: No chest pain. No palpitations. However, feels off with atrial fibrillation. No pedal edema. Respiratory: No cough, no shortness of breath. Abdominal: No abdominal pain. No nausea. No vomiting. Genitourinary: No dysuria. No hematuria. Musculoskeletal: No myalgias. No arthralgias. Neurologic: No headaches. No dizziness. Positive lightheadedness. Skin: No rash. No change in color. Psychiatric: No depression. No anxiety. EXAM Physical Exam Narrative Exam Narrative: Afebrile. Vital signs noted. HEENT: Normocephalic. Atraumatic. PERRL, EOMI. Neck soft and supple. No point tenderness or step off. Cardiovascular: Irregular tachycardia at 114 bpm no murmurs, rubs, or gallops appreciated. Respiratory: No tachypnea. Lungs clear to auscultation bilaterally. Gastrointestinal: Abdomen soft, nontender, with normoactive bowel sounds. No rebound or guarding. Neurological: Awake. Alert. Nonfocal, nonlateralizing. Skin: No rash. Normal color. No pallor. Musculoskeletal: No pedal edema. Full range of motion extremities. Const Vital Signs: 02/04/23 07:29 02/04/23 08:23 02/04/23 08:23 Temperature 97.7 F L Temperature Source Temporal Pulse Rate 116 H Respiratory Rate 16 Respiratory Effort Normal Blood Pressure 133/90 H Blood Pressure Mean 104 Pulse Ox 99 Oxygen Delivery Method Room Air Room Air MDM MDM MDM Narrative Medical decision making narrative: Comprehensive work-up was pursued. On the monitor it appears as if she is in a relatively rate controlled atrial fibrillation. Upon exiting the room, it looked as if she was slowing down into the 70s. She is states that she took her 120 mg of sotalol this morning. Her daughter had stated that when she was administered Cardizem in the past that it did not work. I was going to administer labetalol, however patient states in the electronic medical record and in person that she has an unknown allergy to it. Her daughter states that if it is listed that she probably has an allergy. When I was asking her about her allergy, on the monitor her heart rate ranged from the 50s to 60s and she was no longer tachycardic. I reviewed the patient's laboratory work, and she has a normal white count of 7.0 she is not neutropenic from her chemotherapy. Hemoglobin normal at 14.0, hematocrit 45.4. Platelet count normal at 262. In review of her electrolytes, she has a normal sodium of 138, potassium normal at 3.6, chloride normal at 104. She has slightly elevated BUN of 20 with a normal creatinine of 0.97. Glucose is appropriately elevated at 150 with a normal anion gap of 7. I am not concerned for diabetic ketoacidosis. Her high-sensitivity troponin is normal at 22. EKG was obtained and interpreted by myself independently as normal sinus rhythm with underlying sinus arrhythmia with occasional premature ventricular complexes. Upon repeat examination at approximately 10:35 AM, she remains rate controlled and her rhythm appears normal/sinus on the monitor. Her daughter states that she did go into an irregular rhythm intermittently, but regardless of if she were in atrial fibrillation, she is rate controlled. I feel she be discharged safely home with follow-up to cardiology. She will continue her Xarelto and her sotalol. Return instructions to the emergency department were reviewed. I do not feel she requires observation or admission at this time. Disposition is discharged home in stable condition. History & Record Review Discussion w/independent historian: Patient and Family Additional record(s) reviewed:: Prior ED visit and Prior labs Lab Data Attestation: I reviewed the patient's lab results. Labs: Laboratory Results - last 24 hr 02/04/23 08:06 WBC 7.0 RBC 5.26 Hgb 14.0 Hct 45.4 MCV 86.3 MCH 26.6 L MCHC 30.8 L RDW Std Deviation 49.7 H RDW Coeff of Nabor 15.9 H Plt Count 262 MPV 10.6 Immature Gran % (Auto) 0.400 Neut % (Auto) 72.3 H Lymph % (Auto) 16.9 L Mckinley % (Auto) 9.0 Eos % (Auto) 1.3 Baso % (Auto) 0.1 Absolute Neuts (auto) 5.1 Absolute Lymphs (auto) 1.18 Nucleated RBC % 0 Sodium 138 Potassium 3.6 Chloride 104 Carbon Dioxide 27.0 Anion Gap 7 BUN 20 H Creatinine 0.97 Estim Creat Clear Calc 39.63 Est GFR (MDRD) Af Amer 72 Est GFR (MDRD) Non-Af 59 L BUN/Creatinine Ratio 20.6 H Glucose 150 H Calcium 9.3 Troponin I High Sens 22 Radiography Diagnostic Testing: Clinical Impression(s) from Imaging Studies Chest X-Ray 02/04/23 08:09 IMPRESSION: No active disease. Cardiomegaly. Electronically Signed: Vega Melchor MD at 8:48 EDT , Discharge Plan Triage Chief Complaint: Palpitations ED Provider: José Miguel Haq Dx/Rx/DC Orders Clinical Impression: Malaise and fatigue, Paroxysmal atrial fibrillation Instructions: ED AFIB, ED Weakness (Uncertain Cause) Prescriptions: No Action (DME) compress.stocking,knee,reg,lrg Misc See Rx Instructions .ROUTE .MEDSUPPLY Qty: 2 1RF Rx Instructions: wear daily for venous insufficiency 20-30 mmHg magnesium oxide 400 mg magnesium capsule 400 mg PO BID loperamide 2 mg tablet 2 mg PO Q6H PRN (Reason: Diarrhea) albuterol sulfate [Ventolin HFA] 90 mcg/actuation HFA aerosol inhaler 1 inh inhalation ONCE fenofibrate micronized 134 mg capsule 134 mg PO QPM buspirone 15 mg tablet 15 mg PO TID fluticasone furoate-vilanterol [Breo Ellipta] 200-25 mcg/dose blister with device 1 inh inhalation DAILY lisinopril 20 mg tablet 20 mg PO BID Qty: 180 3RF multivitamin Tablet 1 tab PO DAILY ibandronate 150 mg tablet 150 mg PO QMONTH Qty: 14 2RF docusate sodium [Colace] 100 mg Capsule 100 mg PO BID PRN (Reason: Constipation) acetaminophen 500 mg Tablet 1,000 mg PO Q6H PRN (Reason: Pain Score 1-5) Qty: 0 0RF pantoprazole 40 mg tablet,delayed release (DR/EC) 40 mg PO BID (DME) lancing device Misc See Rx Instructions .ROUTE .MEDSUPPLY Qty: 1 0RF Rx Instructions: As directed ezetimibe [Zetia] 10 mg tablet 10 mg PO QDAY Qty: 90 3RF duloxetine 60 mg capsule,delayed release(DR/EC) 60 mg PO QDAY Qty: 90 2RF cholecalciferol (vitamin D3) 1,250 mcg (50,000 unit) tablet 50,000 unit PO QWEEK Qty: 12 2RF lorazepam [Ativan] 0.5 mg tablet 0.5 mg PO BID PRN (Reason: Anxiety) Qty: 30 0RF Patient Comments: ran out in April amlodipine 5 mg tablet 5 mg PO QHS hydrochlorothiazide 25 mg tablet 25 mg PO DAILY Qty: 90 3RF potassium chloride [Klor-Con M20] 20 mEq tablet,ER particles/crystals 20 meq PO DAILY Qty: 90 3RF furosemide 40 mg tablet 20 mg PO DAILY Qty: 90 1RF albuterol sulfate 90 mcg/actuation HFA aerosol inhaler 2 puff inhalation Q4H PRN (Reason: shortness of breath or wheezing) Qty: 3 3RF Xarelto 20 mg tablet 20 mg PO DINNER Qty: 90 3RF sotalol 120 mg tablet 120 mg PO BID Qty: 180 3RF metformin 500 mg tablet 500 mg PO BID Qty: 180 3RF Primary Care Provider: Quique Mims Referrals: Quique Mims MD [Primary Care Provider] - Juan Daniel Herman MD [Med Staff - Active Staff] - As soon as possible Disposition Disposition: Home, Self Care
--- NOTE | 2023-02-04 08:09 | RAD_ITS ---
STUDY: X-RAY CHEST REASON FOR EXAM: Female, 77 years old. chest pain TECHNIQUE: Single AP portable view of the chest. COMPARISON: 06/27/2022 FINDINGS: Right internal jugular chest port which is unchanged. The lungs are clear and expanded. There is no demonstrated pleural abnormality. There is moderate cardiac enlargement. Normal mediastinum and ricardo. Normal visualized pulmonary arteries. Normal visualized aortic arch and descending thoracic aorta. Normal visualized thoracic spine. Normal visualized ribs, clavicles, and shoulders. There is no demonstrated abnormality of the visualized soft tissue structures of the upper abdomen. RAD/Chest 1 View (Portable) IMPRESSION: No active disease. Cardiomegaly. Electronically Signed: Vega Melchor MD at 8:48 EDT ,
[2023-02-04 08:15] LABS: Absolute Lymphocyte Count 1.18 X10^3/uL (0.83-4.51); Absolute Neutrophil Count 5.1 X10^3/uL (2.0-7.7); Basophil# 0.01 X10^3/uL; Basophil% 0.1 % (0-1); Eosinophil# 0.09 X10^3/uL; Eosinophils% 1.3 % (0-5); Hematocrit 45.4 % (37-47); Lymphocyte # 1.18 X10^3/ul (0.83-4.51); Lymphocyte % 16.9 % (19-41); Mean Corp Hgb Conc 30.8 g/dL (32-36); Mean Corpuscular Hgb 26.6 pg (27.0-32.0); Mean Corpuscular Volume 86.3 fL (81-99); Mean Platelet Vol. 10.6 fl (6.2-12.0); Monocyte# 0.63 X10^3/uL; NRBC Flagged by Analyzer 0 % (0-5); Neutrophil # 5.06 X10^3/uL (2.7-7.7); Neutrophil % 72.3 % (47-70); Platelet Count 262 K/mm3 (150-450); RBC Distribution Width CV 15.9 % (11.6-14.6); RBC Distribution Width SD 49.7 fl (35.1-43.9); Red Blood Count 5.26 M/mm3 (4.2-5.4)
[2023-02-04 08:29] LABS: Anion Gap 7 (5-15); BUN 20 mg/dL (7-18); BUN/Creat Ratio 20.6 RATIO (10-20); Calcium,Total 9.3 mg/dL (8.5-10.1); Chloride 104 mmol/L (98-107); Creatinine, Serum 0.97 mg/dL (0.55-1.02); EST Glomerular Filtration Rate 59 mL/min (>60); Est Glom Filt Rate - Afr Amer 72 mL/min (>60); Estimated Creatinine Clearance 39.63 ml/min; Glucose 150 mg/dL (74-106); Potassium 3.6 mmol/L (3.5-5.1); Sodium Level 138 mmol/L (136-145); Troponin-I HS 22 pg/mL (3.0-54.0)
[2023-02-04] MEDS: 0.9% Normal Saline 1,000 ML 1000 ML IV (08:30)
[2023-02-04 10:46] VITALS: BP 135/65; PULSE 59; RESP 20; O2SAT 96
== END 2023-02-04 11:43 | disposition home or self-care (01) ==
PROVIDERS: Emergency Provider Emergency Medicine; PCP Internal Medicine; Visit Provider Emergency Medicine
DX: R53.81 Other malaise (principal); I50.32 Chronic diastolic (congestive) heart failure; I48.0 Paroxysmal atrial fibrillation; I25.10 Atherosclerotic heart disease of native coronary artery without angina pectoris; I25.2 Old myocardial infarction; G47.33 Obstructive sleep apnea (adult) (pediatric)
CPT/HCPCS: 36591; 71045; 80048; 84484; 85025; 93005; 99283; J7030; A4216

== ENCOUNTER 2023-03-13 07:15 | Emergency (ER) | payer MEDICARE, SELFPAY ==
[2023-03-13] VITALS (15 sets, daily range): BP systolic 121–174; BP diastolic 64–139; PULSE 54–125; RESP 11–26; TEMP 35.8; O2SAT 95–97
--- NOTE | 2023-03-13 07:42 | EDS_ITS ---
HPI History of Present Illness Chief Complaint: Palpitations Informant: patient Onset/Context/Timing Onset: Yesterday Context: Sudden Onset Timing: Continuous Quality: Different Location: Chest Worsened by: Nothing Relieved by: Nothing Narrative Narrative: Patient presents with palpitations that began yesterday afternoon. Patient states it began rather suddenly at approximately 1300 hrs. Patient states they have been constant. Patient states she has a history of paroxysmal atrial fibrillation. Patient states that she tried to wait it out hoping that the atrial fibrillation would resolve. Patient states nothing makes it better nothing makes it worse. Patient midst to some shortness of breath. Patient also admits to some lightheadedness. Patient denies any nausea or vomiting. Patient denies any diaphoresis. [facility] Medical History Abdominal pain Acute exacerbation of chronic obstructive pulmonary disease (COPD) Acute respiratory failure with hypoxia and hypercarbia Anxiety Ascites Atherosclerotic heart disease of [place] coronary artery without angina pectoris CAD (coronary artery disease) CAD (coronary artery disease) Chronic atrial fibrillation with RVR Chronic obstructive pulmonary disease Debility Depression Diarrhea Diastolic congestive heart failure DM2 (diabetes mellitus, type 2) Essential hypertension Essential hypertension Flu vaccine need Grief reaction Hiatal hernia History of cardioversion (~06/28/22) HLD (hyperlipidemia) HTN (hypertension) Hypokalemia Junctional rhythm Long-term use of high-risk medication Morbid obesity Non-rheumatic mitral regurgitation Non-rheumatic tricuspid valve insufficiency NSTEMI (non-ST elevated myocardial infarction) Obstructive sleep apnea Ovarian cancer PAF (paroxysmal atrial fibrillation) Panic disorder Paroxysmal atrial fibrillation with rapid ventricular response Pelvic mass Port-A-Cath in place Preop cardiovascular exam Pulmonary HTN Sepsis SOB (shortness of breath) Spastic colon Streptococcal pneumonia Vitamin D deficiency Home Medications compress.stocking,knee,reg,lrg #2 ea 05/06/19 [Rx Last Taken Unknown] lancing device #1 ea 12/29/20 [Rx Last Taken Unknown] magnesium oxide 400 mg PO BID supplement 04/08/22 [History Last Taken 06/26/22] docusate sodium 100 mg capsule (Colace) 100 mg PO BID PRN Constipation 05/04/22 [History Last Taken Unknown] acetaminophen 500 mg tablet 1,000 mg (2 x 500 mg) PO Q6H PRN Pain Score 1-5 #0 tabs 05/16/22 [Rx Last Taken 06/26/22] albuterol sulfate 90 mcg/actuation aerosol inhaler (Ventolin HFA) 1 inh inhalation ONCE SOB 05/23/22 [History Last Taken Unknown] ezetimibe 10 mg tablet (Zetia) 10 mg PO QDAY cholesterol #90 tabs 06/03/22 [Rx Last Taken 06/27/22] loperamide 2 mg tablet 2 mg PO Q6H PRN Diarrhea 06/27/22 [History Last Taken Unknown] pantoprazole 40 mg tablet,delayed release 40 mg PO BID GERD 06/27/22 [History Last Taken 06/27/22] lisinopril 20 mg tablet 20 mg PO BID #180 tabs 07/14/22 [Rx Last Taken Unknown] duloxetine 60 mg capsule,delayed release 60 mg PO QDAY depression #90 caps 08/24/22 [Rx Last Taken Unknown] cholecalciferol (vitamin D3) 1,250 mcg (50,000 unit) tablet 50,000 unit PO QWEEK supplement #12 tabs 09/30/22 [Rx Last Taken Unknown] amlodipine 5 mg tablet 5 mg PO QHS med increased by Dr. Ochoa. 11/08/22 [History Last Taken Unknown] albuterol sulfate 90 mcg/actuation aerosol inhaler 2 puff inhalation Q4H PRN shortness of breath or wheezing #3 device 11/25/22 [Rx Last Taken Unknown] ibandronate 150 mg tablet 150 mg PO QMONTH #14 tabs 11/25/22 [Rx Last Taken Unknown] multivitamin 1 tab PO DAILY 11/25/22 [History Last Taken Unknown] fenofibrate micronized 134 mg capsule 134 mg PO QPM 12/12/22 [History Last Taken Unknown] fluticasone furoate 200 mcg-vilanterol 25 mcg/dose inhalation powder (Breo Ellipta) 1 inh inhalation DAILY 12/12/22 [History Last Taken Unknown] rivaroxaban 20 mg tablet (Xarelto) 20 mg PO DINNER afib #90 tabs 12/14/22 [Rx Last Taken Unknown] sotalol 120 mg tablet 120 mg PO BID heart #180 tabs 12/21/22 [Rx Last Taken Unknown] metformin 500 mg tablet 500 mg PO BID #180 tabs 01/30/23 [Rx Last Taken Unknown] lorazepam 0.5 mg tablet (Ativan) 0.5 mg PO BID PRN Anxiety #30 tabs 02/08/23 [Rx Last Taken Unknown] furosemide 40 mg tablet 20 mg PO PRN fluid 02/22/23 [History Last Taken Unknown] buspirone 10 mg tablet 20 mg (2 x 10 mg) PO TID 3 months #540 TABLETS 03/01/23 [Rx Last Taken Unknown] spironolactone 25 mg tablet 25 mg PO DAILY #90 tabs 03/09/23 [Rx Last Taken Unknown] Allergy/AdvReac Type Severity Reaction Status Date / Time amoxicillin Allergy Severe hives Verified 03/13/23 07:16 chlorhexidine Allergy Unknown red skin Verified 03/13/23 07:16 morphine Allergy Unknown headaches Verified 03/13/23 07:16 labetalol Allergy Unknown Verified 03/13/23 07:16 pitavastatin [From Livalo] Allergy Other Verified 03/13/23 07:16 simvastatin [From Zocor] Allergy Other Verified 03/13/23 07:16 atorvastatin [From Lipitor] AdvReac Unknown myalgias Verified 03/13/23 07:16 budesonide [From Symbicort] AdvReac Other Verified 03/13/23 07:16 formoterol [From Symbicort] AdvReac Other Verified 03/13/23 07:16 hydrocodone [From Vicodin] AdvReac Other Verified 03/13/23 07:16 [id number]-DqR Reductase AdvReac Other Verified 03/13/23 07:16 Inhibitor [Oukymse-Lym-Arn Reductase Inhibitor] Family History Mother Cancer leukemia Father Respiratory disease Grandfather Myocardial infarction Grandmother Myocardial infarction Son Diabetes Surgical History History of cataract surgery History of colonoscopy History of exploratory laparotomy History of hysterectomy History of surgery on right wrist History of tonsillectomy and adenoidectomy Status post catheter ablation of atrial fibrillation Social History household members: spouse Smoking Status: Never smoker alcohol intake: never substance use type: does not use caffeine: Yes Type: coffee Number of servings: 1 what type of physical activity do you participate in: none seatbelt use: always do you feel safe at home: Yes ROS ROS ED Constitutional Constitutional ED: Denies chills or fever(s) Eyes Eyes: Denies blurry vision or change in vision ENT ENT ED: Denies rhinorrhea or sore throat Cardiovascular Cardiovascular: Reports palpitations; Denies chest pain Respiratory/Chest Respiratory/Chest: Reports dyspnea; Denies cough Gastrointestinal Gastrointestinal: Denies nausea or vomiting Genitourinary Genitourinary ED: Denies dysuria or hematuria Musculoskeletal Musculoskeletal: Reports neck pain; Denies back pain Integumentary Denies abscess or rash Neurologic Neurologic: Reports headache(s); Denies weakness Allergic/Immunologic Allergic/Immunologic ED: Denies mouth swelling or urticaria EXAM Physical Exam Const Vital Signs: 03/13/23 07:16 03/13/23 07:15 03/13/23 07:56 Temperature 96.4 F L Temperature Source Temporal Pulse Rate 125 H Pulse Rate [1 (Initial Baseline)] Pulse Rate [2] Respiratory Rate 16 Respiratory Rate [1 (Initial Baseline)] Respiratory Rate [2] Respiratory Effort Short of Breath Short of Breath Respiratory Depth Normal Respiratory Pattern Normal Blood Pressure 158/90 H Blood Pressure [1 (Initial Baseline)] Blood Pressure [2] Blood Pressure Mean 112 Pulse Ox 97 Oxygen Delivery Method Room Air Room Air Oxygen Delivery Method [1 (Initial Baseline)] Oxygen Delivery Method [2] Oxygen Flow Rate (L/min) [2] 03/13/23 08:04 03/13/23 10:23 03/13/23 09:20 Temperature Temperature Source Pulse Rate 77 76 Pulse Rate [1 (Initial Baseline)] Pulse Rate [2] Respiratory Rate 13 20 H Respiratory Rate [1 (Initial Baseline)] Respiratory Rate [2] Respiratory Effort Respiratory Depth Respiratory Pattern Blood Pressure 172/139 H Blood Pressure [1 (Initial Baseline)] Blood Pressure [2] Blood Pressure Mean Pulse Ox 95 Oxygen Delivery Method Room Air Room Air Oxygen Delivery Method [1 (Initial Baseline)] Oxygen Delivery Method [2] Oxygen Flow Rate (L/min) [2] 03/13/23 09:30 03/13/23 09:40 03/13/23 09:50 Temperature Temperature Source Pulse Rate 66 69 65 Pulse Rate [1 (Initial Baseline)] Pulse Rate [2] Respiratory Rate 18 19 H 19 H Respiratory Rate [1 (Initial Baseline)] Respiratory Rate [2] Respiratory Effort Respiratory Depth Respiratory Pattern Blood Pressure Blood Pressure [1 (Initial Baseline)] Blood Pressure [2] Blood Pressure Mean Pulse Ox Oxygen Delivery Method Oxygen Delivery Method [1 (Initial Baseline)] Oxygen Delivery Method [2] Oxygen Flow Rate (L/min) [2] 03/13/23 10:05 03/13/23 10:11 03/13/23 10:17 Temperature Temperature Source Pulse Rate 79 84 78 Pulse Rate [1 (Initial Baseline)] Pulse Rate [2] Respiratory Rate 26 H 21 H 18 Respiratory Rate [1 (Initial Baseline)] Respiratory Rate [2] Respiratory Effort Respiratory Depth Respiratory Pattern Blood Pressure 163/92 H Blood Pressure [1 (Initial Baseline)] Blood Pressure [2] Blood Pressure Mean 112 Pulse Ox Oxygen Delivery Method Oxygen Delivery Method [1 (Initial Baseline)] Oxygen Delivery Method [2] Oxygen Flow Rate (L/min) [2] 03/13/23 10:20 03/13/23 10:34 03/13/23 10:40 Temperature Temperature Source Pulse Rate 90 Pulse Rate [1 (Initial Baseline)] 84 Pulse Rate [2] 54 L Respiratory Rate 11 L Respiratory Rate [1 (Initial Baseline)] 20 H Respiratory Rate [2] 25 H Respiratory Effort Respiratory Depth Respiratory Pattern Blood Pressure 172/139 H Blood Pressure [1 (Initial Baseline)] 174/92 H Blood Pressure [2] 147/64 H Blood Pressure Mean 151 Pulse Ox Oxygen Delivery Method Room Air Oxygen Delivery Method [1 (Initial Baseline)] Room Air Oxygen Delivery Method [2] Venturi Mask Oxygen Flow Rate (L/min) [2] 3 03/13/23 10:45 03/13/23 11:10 Temperature Temperature Source Pulse Rate 63 Pulse Rate [1 (Initial Baseline)] Pulse Rate [2] Respiratory Rate Respiratory Rate [1 (Initial Baseline)] Respiratory Rate [2] Respiratory Effort Respiratory Depth Respiratory Pattern Blood Pressure 152/77 H Blood Pressure [1 (Initial Baseline)] Blood Pressure [2] Blood Pressure Mean Pulse Ox 95 Oxygen Delivery Method Room Air Oxygen Delivery Method [1 (Initial Baseline)] Oxygen Delivery Method [2] Oxygen Flow Rate (L/min) [2] Positive well nourished and well developed General Appearance ED: well developed HEENT Reports moist mucous membranes Neck supple and no JVD Resp normal respiratory effort and clear to auscultation bilaterally Cardio regular rate Rhythm: abnormal rhythm irregularly irregular GI normal to inspection, nondistended, normoactive bowel sounds and non-tender Palpation: soft Extremity normal to inspection General Extremety ED: Negative for edema or tenderness General Extremity: Negative for edema Neuro oriented x3, CN's II-XII intact bilaterally and no sensory deficits noted Sensorium / Orientation: alert Motor Exam: strength 5/5 throughout Psych mental status grossly normal Skin no rashes or lesions noted MDM MDM MDM Narrative Medical decision making narrative: Differential diagnosis includes cardiac dysrhythmia, cardiac ischemia, electrolyte abnormality, anemia, pneumonia, and pulmonary embolism. EKG will be obtained to assess for cardiac dysrhythmia and cardiac ischemia. Chest x-ray will be obtained to assess for pneumonia. CBC will be obtained to assess for anemia and leukocytosis. Basic metabolic profile will be obtained to assess for electrolyte abnormality and renal function. D-dimer will be obtained to assess for pulmonary embolism. High-sensitivity troponin will be obtained to assess for cardiac ischemia. PT with INR and PTT will be obtained to assess for coagulopathy. Lab Data Attestation: I reviewed the patient's lab results. Lab results narrative: CBC was reviewed and was within normal limits. Basic metabolic profile was reviewed. BUN was slightly elevated at 19. Creatinine was normal. High- sensitivity troponin was reviewed and was normal at 17. PT with INR and PTT were reviewed and were essentially within normal limits. D-dimer was reviewed and was normal at 0.29. Labs: Laboratory Results - last 24 hr 03/13/23 07:51 WBC 7.2 RBC 5.18 Hgb 13.9 Hct 45.5 MCV 87.8 MCH 26.8 L MCHC 30.5 L RDW Std Deviation 49.4 H RDW Coeff of Nabor 15.4 H Plt Count 279 MPV 10.9 Immature Gran % (Auto) 0.300 Neut % (Auto) 72.7 H Lymph % (Auto) 16.3 L [place] % (Auto) 9.1 Eos % (Auto) 1.3 Baso % (Auto) 0.3 Absolute Neuts (auto) 5.2 Absolute Lymphs (auto) 1.17 Nucleated RBC % 0 PT 14.6 INR 1.1 APTT 40.4 H D-Dimer Quant (PE/DVT) 0.29 Sodium 140 Potassium 3.5 Chloride 106 Carbon Dioxide 28.0 Anion Gap 6 BUN 19 H Creatinine 0.87 Est GFR (MDRD) Af Amer 82 Est GFR (MDRD) Non-Af 68 BUN/Creatinine Ratio 21.9 H Glucose 133 H Calcium 9.3 Troponin I High Sens 17 Radiography Chest X-Ray - ED: 2 View, Read by ED Physician, Read by Radiologist and No Acute Disease Diagnostic Testing: Clinical Impression(s) from Imaging Studies Chest X-Ray 03/13/23 08:10 IMPRESSION: 1. No acute findings in the chest. 2. No significant interval change when compared to 02/04/2023. Electronically Signed: José Miguel Barron MD at 8:28 EDT , PA and lateral chest x-ray was obtained. There are 2 views. On my independent interpretation, lung shukla are clear. There is normal cardiac silhouette. Bony thorax is normal. There is no acute process noted. Radiologist also interpreted the x-ray and agrees. EKG Initial EKG: Attestation: I personally reviewed and interpreted this EKG as follows: Interpretation: Atrial Fibrillation (110) and Non-Specific ST Changes Comments: EKG was obtained. On my independent interpretation, it shows atrial fibrillation with a rate of 110. QRS interval was normal at 94 ms. QTc interval was 481 ms. [place] was normal. There are nonspecific ST-T wave changes noted. Prior EKG tracings: available for review Prior: Changed (Compared to EKG dated 02/04/2023, the atrial fibrillation is new. Compared to EKG dated 06/27/2022, atrial fibrillation was noted.) Follow-up EKG: Attestation: I personally reviewed and interpreted this EKG as follows: Interpretation: Sinus Rhythm and Non-Specific ST Changes Comments: EKG was obtained. On my independent interpretation, it showed a normal sinus rhythm with a rate of 61. [place] interval, QRS interval, and QTc intervals were all normal. [place] was normal. There are nonspecific ST-T wave changes. Prior EKG tracings: available for review Prior: Unchanged Treatment and Re-Evaluation :: Patient was given a bolus of cardizem. Patient was advised of her findings. Patient remained in atrial fibrillation with improved rate. Patient is a candidate for cardioversion since she is on anticoagulants with Xarelto. Patient is agreeable with the procedure. Patient states she has had it done in the past. Patient was given the opportunity ask further questions. Patient had no further questions. Patient was advised of the risks and benefits. Patient is agreeable with this. Informed consent was signed. Patient was placed on continuous cardiac and pulse oximeter monitors. Patient was given 50 mg of propofol IV. After sedation, patient was cardioverted with synchronized cardioversion at 200 J. Patient converted to a normal sinus rhythm. Patient tolerated the procedure well. Patient will be awakened easily after the procedure. Repeat EKG was obtained. On my independent interpretation, it showed a normal sinus rhythm with a rate of 61. [place] interval, QRS interval, and QTc intervals were all normal. [place] was normal. There are nonspecific ST-T wave changes. Patient is feeling better on reevaluation. Patient will be discharged home. Patient was instructed to follow-up with her primary care physician in 5 to 7 days. Patient understood and was agreeable with the plan. All questions were answered. Procedures Procedural Sedation 1 (Initial Baseline): Consent Signed: Yes Any Problems With Anesthesia: No You/Your family experience fever (hyperthermia) w/anesthesia: No Sedation medication: Propofol Dose: 50 Route: IV Maliampati Score: Class II ASA Classification: III Discharge Plan Triage Chief Complaint: Palpitations Other Complaint: Shortness of Breath ED Provider: Rogelio Araya Dx/Rx/DC Orders Clinical Impression: History of cardioversion, Palpitations, Atrial fibrillation Instructions: ED AFIB Prescriptions: No Action (DME) compress.stocking,knee,reg,lrg Misc See Rx Instructions .ROUTE .MEDSUPPLY Qty: 2 1RF Rx Instructions: wear daily for venous insufficiency 20-30 mmHg magnesium oxide 400 mg magnesium capsule 400 mg PO BID loperamide 2 mg tablet 2 mg PO Q6H PRN (Reason: Diarrhea) albuterol sulfate [Ventolin HFA] 90 mcg/actuation HFA aerosol inhaler 1 inh inhalation ONCE fenofibrate micronized 134 mg capsule 134 mg PO QPM fluticasone furoate-vilanterol [Breo Ellipta] 200-25 mcg/dose blister with device 1 inh inhalation DAILY lisinopril 20 mg tablet 20 mg PO BID Qty: 180 3RF multivitamin Tablet 1 tab PO DAILY ibandronate 150 mg tablet 150 mg PO QMONTH Qty: 14 2RF buspirone 10 mg tablet 20 mg PO TID 90 Days Qty: 540 1RF furosemide 40 mg tablet 20 mg PO PRN docusate sodium [Colace] 100 mg Capsule 100 mg PO BID PRN (Reason: Constipation) acetaminophen 500 mg Tablet 1,000 mg PO Q6H PRN (Reason: Pain Score 1-5) Qty: 0 0RF pantoprazole 40 mg tablet,delayed release (DR/EC) 40 mg PO BID (DME) lancing device Misc See Rx Instructions .ROUTE .MEDSUPPLY Qty: 1 0RF Rx Instructions: As directed ezetimibe [Zetia] 10 mg tablet 10 mg PO QDAY Qty: 90 3RF duloxetine 60 mg capsule,delayed release(DR/EC) 60 mg PO QDAY Qty: 90 2RF cholecalciferol (vitamin D3) 1,250 mcg (50,000 unit) tablet 50,000 unit PO QWEEK Qty: 12 2RF amlodipine 5 mg tablet 5 mg PO QHS albuterol sulfate 90 mcg/actuation HFA aerosol inhaler 2 puff inhalation Q4H PRN (Reason: shortness of breath or wheezing) Qty: 3 3RF Xarelto 20 mg tablet 20 mg PO DINNER Qty: 90 3RF sotalol 120 mg tablet 120 mg PO BID Qty: 180 3RF metformin 500 mg tablet 500 mg PO BID Qty: 180 3RF lorazepam [Ativan] 0.5 mg tablet 0.5 mg PO BID PRN (Reason: Anxiety) Qty: 30 0RF Patient Comments: ran out in April spironolactone 25 mg tablet 25 mg PO DAILY Qty: 90 3RF Primary Care Provider: Quique Mims Referrals: Jose Sánchez MD [Med Staff - Active Staff] - 3-5 Days Quique Mims MD [Primary Care Provider] - 5-7 Days Disposition Disposition: Home, Self Care Discharge Date/Time: 03/13/23 11:23
--- NOTE | 2023-03-13 08:10 | RAD_ITS ---
EXAM: XR CHEST, 2 VIEWS CLINICAL INDICATION: Palpitations TECHNIQUE: Frontal and lateral views of the chest. COMPARISON: 02/04/2023. FINDINGS: LUNGS AND PLEURAL SPACES: Unremarkable. No pneumothorax. No effusion. No pulmonary vascular redistribution. No suspicious infiltrates. HEART: Cardiomegaly and mitral annular calcifications are unchanged. MEDIASTINUM: Central airways and mediastinal contour are unremarkable. 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 Old fracture of at least the left posterior eighth rib is unchanged. SOFT TISSUES: Unremarkable. TUBES, LINES AND DEVICES: Right IJ approach portacatheter tip remains in the mid SVC. RAD/Chest PA and Lateral IMPRESSION: 1. No acute findings in the chest. 2. No significant interval change when compared to 02/04/2023. Electronically Signed: José Miguel Barron MD at 8:28 EDT ,
[2023-03-13 08:28] LABS: Absolute Lymphocyte Count 1.17 X10^3/uL (0.83-4.51); Absolute Neutrophil Count 5.2 X10^3/uL (2.0-7.7); Basophil# 0.02 X10^3/uL; Basophil% 0.3 % (0-1); Eosinophil# 0.09 X10^3/uL; Eosinophils% 1.3 % (0-5); Hematocrit 45.5 % (37-47); Hemoglobin 13.9 g/dL (12.0-15.0); Lymphocyte # 1.17 X10^3/ul (0.83-4.51); Lymphocyte % 16.3 % (19-41); Mean Corp Hgb Conc 30.5 g/dL (32-36); Mean Corpuscular Hgb 26.8 pg (27.0-32.0); Mean Corpuscular Volume 87.8 fL (81-99); Mean Platelet Vol. 10.9 fl (6.2-12.0); Monocyte# 0.65 X10^3/uL; Monocyte% 9.1 % (0-10); NRBC Flagged by Analyzer 0 % (0-5); Neutrophil # 5.22 X10^3/uL (2.7-7.7); Neutrophil % 72.7 % (47-70); Platelet Count 279 K/mm3 (150-450); RBC Distribution Width CV 15.4 % (11.6-14.6); RBC Distribution Width SD 49.4 fl (35.1-43.9); Red Blood Count 5.18 M/mm3 (4.2-5.4); White Blood Count 7.2 K/mm3 (4.4-11.0)
[2023-03-13] MEDS: dilTIAZem 25 MG/5 ML Vial IV BOLUS (08:29)
[2023-03-13 08:42] LABS: International Normalized Ratio 1.1; Prothrombin Time (Protime)PT. 14.6 SECONDS (11.7-14.9)
[2023-03-13 08:43] LABS: Partial Thromboplast Time 40.4 Seconds (24.1-36.2)
[2023-03-13 08:47] LABS: Anion Gap 6 (5-15); BUN 19 mg/dL (7-18); BUN/Creat Ratio 21.9 RATIO (10-20); Calcium,Total 9.3 mg/dL (8.5-10.1); Chloride 106 mmol/L (98-107); Creatinine, Serum 0.87 mg/dL (0.55-1.02); EST Glomerular Filtration Rate 68 mL/min (>60); Est Glom Filt Rate - Afr Amer 82 mL/min (>60); Glucose 133 mg/dL (74-106); Potassium 3.5 mmol/L (3.5-5.1); Sodium Level 140 mmol/L (136-145); Troponin-I HS 17 pg/mL (3.0-54.0)
[2023-03-13 08:54] LABS: D-Dimer Quantitative (DVT/PE) 0.29 FEU/ug/m (0.27-0.49)
[2023-03-13] MEDS: Propofol 200 MG/20 ML Vial IV BOLUS (10:33)
== END 2023-03-13 11:23 | disposition home or self-care (01) ==
PROVIDERS: Emergency Provider Emergency Medicine; PCP Internal Medicine; Visit Provider Emergency Medicine
DX: R00.2 Palpitations (principal); J44.9 Chronic obstructive pulmonary disease, unspecified; I11.0 Hypertensive heart disease with heart failure; I50.32 Chronic diastolic (congestive) heart failure; I48.0 Paroxysmal atrial fibrillation; E11.9 Type 2 diabetes mellitus without complications; I25.10 Atherosclerotic heart disease of native coronary artery without angina pectoris; I25.2 Old myocardial infarction; Z79.84 Long term (current) use of oral hypoglycemic drugs; Z79.899 Other long term (current) drug therapy; Z79.01 Long term (current) use of anticoagulants
CPT/HCPCS: 36591; 71046; 80048; 84484; 85025; 85379; 85610; 85730; 93005; 99284; J7030; A4216

== ENCOUNTER 2023-03-17 00:45 | Emergency (ER) | payer MEDICARE, SELFPAY ==
[2023-03-17 00:45] VITALS: BP 185/95
[2023-03-17 00:46] VITALS: BP 195/54; PULSE 72; RESP 19; TEMP 36.9; O2SAT 93; BMI 38.9
[2023-03-17 01:37] VITALS: BP 167/77; PULSE 62; RESP 19; O2SAT 92
--- NOTE | 2023-03-17 01:37 | EX.ED.DYSGE1 ---
HPI History of Present Illness Chief Complaint: Hypertension Detail of Chief Complaint: Acute on chronic hypertension. No chest pain or headache. Informant: patient and family Onset/Context/Timing Onset: Days Context: Gradual Onset Timing: Intermittent Current Severity: Mild Maximum Severity: Mild Narrative Narrative: 77-year-old female history of A-fib, hypertension, diabetes, COPD, CAD and currently being treated for ovarian cancer and chemotherapy. Her blood pressures been running high lately. They have been adjusting her medications. Today she had chemotherapy. The nurse there stated her blood pressure was elevated. She thinks it made her more anxious. She has been taking her normal medications. Prior similar symptoms: Yes Recent Illness/Hospitalization: No PFSH PFS Medical History Abdominal pain Acute exacerbation of chronic obstructive pulmonary disease (COPD) Acute respiratory failure with hypoxia and hypercarbia Anxiety Ascites Atherosclerotic heart disease of [place] coronary artery without angina pectoris CAD (coronary artery disease) CAD (coronary artery disease) Chronic atrial fibrillation with RVR Chronic obstructive pulmonary disease Debility Depression Diarrhea Diastolic congestive heart failure DM2 (diabetes mellitus, type 2) Essential hypertension Essential hypertension Flu vaccine need Grief reaction Hiatal hernia History of cardioversion (~06/28/22) HLD (hyperlipidemia) HTN (hypertension) Hypokalemia Junctional rhythm Long-term use of high-risk medication Morbid obesity Non-rheumatic mitral regurgitation Non-rheumatic tricuspid valve insufficiency NSTEMI (non-ST elevated myocardial infarction) Obstructive sleep apnea Ovarian cancer PAF (paroxysmal atrial fibrillation) Panic disorder Paroxysmal atrial fibrillation with rapid ventricular response Pelvic mass Port-A-Cath in place Preop cardiovascular exam Pulmonary HTN Sepsis SOB (shortness of breath) Spastic colon Streptococcal pneumonia Vitamin D deficiency Home Medications compress.stocking,knee,reg,lrg #2 ea 05/06/19 [Rx Last Taken Unknown] lancing device #1 ea 12/29/20 [Rx Last Taken Unknown] magnesium oxide 400 mg PO BID supplement 04/08/22 [History Last Taken 06/26/22] docusate sodium 100 mg capsule (Colace) 100 mg PO BID PRN Constipation 05/04/22 [History Last Taken Unknown] acetaminophen 500 mg tablet 1,000 mg (2 x 500 mg) PO Q6H PRN Pain Score 1-5 #0 tabs 05/16/22 [Rx Last Taken 06/26/22] albuterol sulfate 90 mcg/actuation aerosol inhaler (Ventolin HFA) 1 inh inhalation ONCE SOB 05/23/22 [History Last Taken Unknown] ezetimibe 10 mg tablet (Zetia) 10 mg PO QDAY cholesterol #90 tabs 06/03/22 [Rx Last Taken 06/27/22] loperamide 2 mg tablet 2 mg PO Q6H PRN Diarrhea 06/27/22 [History Last Taken Unknown] pantoprazole 40 mg tablet,delayed release 40 mg PO BID GERD 06/27/22 [History Last Taken 06/27/22] lisinopril 20 mg tablet 20 mg PO BID #180 tabs 07/14/22 [Rx Last Taken Unknown] duloxetine 60 mg capsule,delayed release 60 mg PO QDAY depression #90 caps 08/24/22 [Rx Last Taken Unknown] cholecalciferol (vitamin D3) 1,250 mcg (50,000 unit) tablet 50,000 unit PO QWEEK supplement #12 tabs 09/30/22 [Rx Last Taken Unknown] amlodipine 5 mg tablet 5 mg PO QHS med increased by Dr. Ochoa. 11/08/22 [History Last Taken Unknown] albuterol sulfate 90 mcg/actuation aerosol inhaler 2 puff inhalation Q4H PRN shortness of breath or wheezing #3 device 11/25/22 [Rx Last Taken Unknown] ibandronate 150 mg tablet 150 mg PO QMONTH #14 tabs 11/25/22 [Rx Last Taken Unknown] multivitamin 1 tab PO DAILY 11/25/22 [History Last Taken Unknown] fenofibrate micronized 134 mg capsule 134 mg PO QPM 12/12/22 [History Last Taken Unknown] fluticasone furoate 200 mcg-vilanterol 25 mcg/dose inhalation powder (Breo Ellipta) 1 inh inhalation DAILY 12/12/22 [History Last Taken Unknown] rivaroxaban 20 mg tablet (Xarelto) 20 mg PO DINNER afib #90 tabs 12/14/22 [Rx Last Taken Unknown] sotalol 120 mg tablet 120 mg PO BID heart #180 tabs 12/21/22 [Rx Last Taken Unknown] metformin 500 mg tablet 500 mg PO BID #180 tabs 01/30/23 [Rx Last Taken Unknown] lorazepam 0.5 mg tablet (Ativan) 0.5 mg PO BID PRN Anxiety #30 tabs 02/08/23 [Rx Last Taken Unknown] furosemide 40 mg tablet 20 mg PO PRN fluid 02/22/23 [History Last Taken Unknown] buspirone 10 mg tablet 20 mg (2 x 10 mg) PO TID 3 months #540 TABLETS 03/01/23 [Rx Last Taken Unknown] spironolactone 25 mg tablet 25 mg PO DAILY #90 tabs 03/16/23 [Rx Last Taken Unknown] Allergy/AdvReac Type Severity Reaction Status Date / Time amoxicillin Allergy Severe hives Verified 03/17/23 00:48 chlorhexidine Allergy Unknown red skin Verified 03/17/23 00:48 morphine Allergy Unknown headaches Verified 03/17/23 00:48 labetalol Allergy Unknown Verified 03/17/23 00:48 pitavastatin [From Livalo] Allergy Other Verified 03/17/23 00:48 simvastatin [From Zocor] Allergy Other Verified 03/17/23 00:48 atorvastatin [From Lipitor] AdvReac Unknown myalgias Verified 03/17/23 00:48 budesonide [From Symbicort] AdvReac Other Verified 03/17/23 00:48 formoterol [From Symbicort] AdvReac Other Verified 03/17/23 00:48 hydrocodone [From Vicodin] AdvReac Other Verified 03/17/23 00:48 Roadhve-[id number] Reductase AdvReac Other Verified 03/17/23 00:48 Inhibitor [Ahbnxft-[id number] Reductase Inhibitor] Family History Mother Cancer leukemia Father Respiratory disease Grandfather Myocardial infarction Grandmother Myocardial infarction Son Diabetes Surgical History History of cataract surgery History of colonoscopy History of exploratory laparotomy History of hysterectomy History of surgery on right wrist History of tonsillectomy and adenoidectomy Status post catheter ablation of atrial fibrillation Social History household members: spouse Smoking Status: Never smoker alcohol intake: never substance use type: does not use caffeine: Yes Type: coffee Number of servings: 1 what type of physical activity do you participate in: none seatbelt use: always do you feel safe at home: Yes ROS ROS ED ROS Narrative Mild nausea. Review of Systems ROS Unobtainable: Denies due to encephalopathy Constitutional Constitutional ED: Denies chills or fever(s) Eyes Eyes: Denies blurry vision ENT ENT ED: Denies ear pain Cardiovascular Cardiovascular: Denies chest pain Respiratory/Chest Respiratory/Chest: Denies cough or dyspnea Gastrointestinal Gastrointestinal: Reports nausea; Denies abdominal pain, constipation, diarrhea, melena or vomiting Genitourinary Genitourinary ED: Denies dysuria or hematuria Musculoskeletal Musculoskeletal: Denies arthralgias Integumentary Denies abscess Neurologic Neurologic: Denies headache(s) Psychiatric Psychiatric: Denies anxiety Endocrine Endocrinology: Denies cold intolerance Hematologic/Lymphatic Hematologic/Lymphatic: Reports none Allergic/Immunologic Allergic/Immunologic ED: Denies mouth swelling or tongue swelling EXAM Physical Exam Narrative Exam Narrative: Well-appearing 77-year-old female. Vital signs stable afebrile. Initial blood pressure 195/54. While in the room she is 179/82. Patient does not look septic toxic or in distress. No complaints. H EENT exam unremarkable. Moist with membranes. Lungs clear to auscultation. Heart regular rhythm no murmur. Rate about 70. Sinus rhythm on the monitor. Abdomen soft nontender. Normal bowel sounds. No peritoneal signs. Moving all 4 extremities. Neurologically she is awake and alert with no focal motor deficits. Very benign exam. Daughter present in room. Const Vital Signs: 03/17/23 00:46 03/17/23 00:45 03/17/23 00:45 Temperature 98.5 F Temperature Source Oral Pulse Rate 72 Respiratory Rate 19 H Respiratory Effort Normal Non-Labored Respiratory Pattern Normal Blood Pressure 195/54 H 185/95 H Blood Pressure Mean 101 125 Pulse Ox 93 Oxygen Delivery Method Room Air Positive well nourished and well developed; Negative for cachectic or contractures General Appearance ED: well developed and NAD; Negative for cachectic, contractures, cyanotic, diaphoretic or pallor Nutritional Appearance: Negative for cachectic HEENT Reports moist mucous membranes; Denies dry mucous membranes Negative for trauma or tenderness Mouth ED: No dry mucous membranes Mouth: No dry mucous membranes Eyes PERRL and EOMs intact bilaterally General Eye ED: Negative for pale conjunctiva or scleral icterus Neck no lymphadenopathy, supple and no JVD General: Negative for tenderness Lymph Lymphatic: Negative for other Chest Wall inspection of chest normal and palpation of chest normal Chest: Negative for other Resp normal respiratory effort and clear to auscultation bilaterally Effort and Inspection: Negative for retractions Auscultation: Negative for rales, rhonchi or wheezes Cardio regular rate, regular rhythm, S1 normal heart sound, S2 normal heart sound and no murmurs Rhythm: Negative for abnormal rhythm GI normal to inspection, nondistended, normoactive bowel sounds, non-tender, non-distended and no masses Auscultation: normoactive bowel sounds Palpation: soft; Negative for tender or guarding Back/Spine no CVA tenderness General Back: Negative for CVA tenderness Cervical Spine: Negative for cervical spine tenderness Thoracic Spine / Upper Back: Negative for thoracic spinal tenderness Lumbar Spine / Lower Back: Negative for lumbar spinal tenderness Extremity normal to inspection General Extremety ED: Negative for edema or tenderness General Extremity: Negative for edema Neuro oriented x3 and CN's II-XII intact bilaterally Sensorium / Orientation: alert; Negative for orientation impaired Motor Exam: strength 5/5 throughout Psych mental status grossly normal Appearance: Negative for other Attitude: No agitated Mood & Affect: Negative for depressed, anxious or tearful Skin no rashes or lesions noted, no wounds and skin turgor normal General Skin Exam: elasticity normal; Negative for jaundice or pallor Lesions: No lesion noted Rashes: No rashes noted Trauma: Negative for abrasion Wounds: Negative for wounds noted MDM MDM MDM Narrative Medical decision making narrative: 77-year-old female with acute on chronic hypertension. Exam benign. She does not need any acute treatment emergency department. She has nausea medication at home. She will take her normal blood pressure medications. Follow-up with either primary care physician or service center assistant to have them adjust her blood pressure medication if it continually runs high. Patient and family understand this. They are comfortable with the plan. I did review her recent labs that were basically unremarkable from being in the emergency department several days ago. History & Record Review Discussion w/independent historian: Patient and Family Discharge Plan Triage Chief Complaint: Hypertension ED Provider: Zachary Davis Dx/Rx/DC Orders Clinical Impression: Chronic anticoagulation, Chronic hypertension, History of ovarian cancer, History of atrial fibrillation Instructions: ED High Blood Pressure Hypertension Prescriptions: No Action (DME) compress.stocking,knee,reg,lrg Misc See Rx Instructions .ROUTE .MEDSUPPLY Qty: 2 1RF Rx Instructions: wear daily for venous insufficiency 20-30 mmHg magnesium oxide 400 mg magnesium capsule 400 mg PO BID loperamide 2 mg tablet 2 mg PO Q6H PRN (Reason: Diarrhea) albuterol sulfate [Ventolin HFA] 90 mcg/actuation HFA aerosol inhaler 1 inh inhalation ONCE fenofibrate micronized 134 mg capsule 134 mg PO QPM fluticasone furoate-vilanterol [Breo Ellipta] 200-25 mcg/dose blister with device 1 inh inhalation DAILY lisinopril 20 mg tablet 20 mg PO BID Qty: 180 3RF multivitamin Tablet 1 tab PO DAILY ibandronate 150 mg tablet 150 mg PO QMONTH Qty: 14 2RF buspirone 10 mg tablet 20 mg PO TID 90 Days Qty: 540 1RF furosemide 40 mg tablet 20 mg PO PRN docusate sodium [Colace] 100 mg Capsule 100 mg PO BID PRN (Reason: Constipation) acetaminophen 500 mg Tablet 1,000 mg PO Q6H PRN (Reason: Pain Score 1-5) Qty: 0 0RF pantoprazole 40 mg tablet,delayed release (DR/EC) 40 mg PO BID (DME) lancing device Misc See Rx Instructions .ROUTE .MEDSUPPLY Qty: 1 0RF Rx Instructions: As directed ezetimibe [Zetia] 10 mg tablet 10 mg PO QDAY Qty: 90 3RF duloxetine 60 mg capsule,delayed release(DR/EC) 60 mg PO QDAY Qty: 90 2RF cholecalciferol (vitamin D3) 1,250 mcg (50,000 unit) tablet 50,000 unit PO QWEEK Qty: 12 2RF amlodipine 5 mg tablet 5 mg PO QHS albuterol sulfate 90 mcg/actuation HFA aerosol inhaler 2 puff inhalation Q4H PRN (Reason: shortness of breath or wheezing) Qty: 3 3RF Xarelto 20 mg tablet 20 mg PO DINNER Qty: 90 3RF sotalol 120 mg tablet 120 mg PO BID Qty: 180 3RF metformin 500 mg tablet 500 mg PO BID Qty: 180 3RF lorazepam [Ativan] 0.5 mg tablet 0.5 mg PO BID PRN (Reason: Anxiety) Qty: 30 0RF Patient Comments: ran out in April spironolactone 25 mg tablet 25 mg PO DAILY Qty: 90 3RF Primary Care Provider: Quique Mims Referrals: Quique Mims MD [Primary Care Provider] - 1 Week Activity Restrictions/Additional Instructions: Take your normal medications especially your blood pressure medications. Log your blood pressures and follow-up with your primary care physician or your service center assistant to see if they need to adjust or change in your blood pressure medications. Disposition Disposition: Home, Self Care
== END 2023-03-17 02:12 | disposition home or self-care (01) ==
PROVIDERS: Emergency Provider Emergency Medicine; PCP Internal Medicine; Visit Provider Emergency Medicine
DX: I11.0 Hypertensive heart disease with heart failure (principal); I50.32 Chronic diastolic (congestive) heart failure; I48.0 Paroxysmal atrial fibrillation; I25.10 Atherosclerotic heart disease of native coronary artery without angina pectoris; I25.2 Old myocardial infarction; Z92.21 Personal history of antineoplastic chemotherapy; Z79.01 Long term (current) use of anticoagulants
CPT/HCPCS: 99284

== ENCOUNTER → 2023-03-29 | Outpatient (CLI) | payer MEDICARE, SELFPAY ==
[2023-03-29 13:29] LABS: Absolute Lymphocyte Count 1.24 X10^3/uL (0.83-4.51); Absolute Neutrophil Count 6.8 X10^3/uL (2.0-7.7); Basophil# 0.01 X10^3/uL; Basophil% 0.1 % (0-1); Eosinophil# 0.06 X10^3/uL; Eosinophils% 0.7 % (0-5); Hematocrit 43.1 % (37-47); Hemoglobin 13.8 g/dL (12.0-15.0); Lymphocyte # 1.24 X10^3/ul (0.83-4.51); Lymphocyte % 13.6 % (19-41); Mean Corpuscular Hgb 27.4 pg (27.0-32.0); Mean Corpuscular Volume 85.5 fL (81-99); Mean Platelet Vol. 10.6 fl (6.2-12.0); Monocyte# 0.94 X10^3/uL; Monocyte% 10.3 % (0-10); NRBC Flagged by Analyzer 0 % (0-5); Neutrophil # 6.84 X10^3/uL (2.7-7.7); Platelet Count 268 K/mm3 (150-450); RBC Distribution Width SD 46.3 fl (35.1-43.9); Red Blood Count 5.04 M/mm3 (4.2-5.4); White Blood Count 9.1 K/mm3 (4.4-11.0)
[2023-03-29 14:03] LABS: Anion Gap 8 (5-15); BUN 25 mg/dL (7-18); BUN/Creat Ratio 26.3 RATIO (10-20); Calcium,Total 9.2 mg/dL (8.5-10.1); Chloride 108 mmol/L (98-107); Creatinine, Serum 0.95 mg/dL (0.55-1.02); EST Glomerular Filtration Rate 61 mL/min (>60); Est Glom Filt Rate - Afr Amer 74 mL/min (>60); Glucose 127 mg/dL (74-106); Magnesium 1.5 mg/dL (1.6-2.6); Sodium Level 141 mmol/L (136-145); T4 Free Direct 1.14 ng/dL (0.76-1.46); Thyroid Stim Hormone (TSH) 1.48 uIU/mL (0.358-3.74)
== END | disposition home or self-care (01) ==
LOC: LAB 12:34
PROVIDERS: PCP Internal Medicine; Referring Provider Nurse Practitioner Family; Visit Provider Nurse Practitioner Family
DX: Z51.81 Encounter for therapeutic drug level monitoring (principal); I11.0 Hypertensive heart disease with heart failure; I50.32 Chronic diastolic (congestive) heart failure; I48.0 Paroxysmal atrial fibrillation; I25.10 Atherosclerotic heart disease of native coronary artery without angina pectoris; E78.5 Hyperlipidemia, unspecified; Z79.899 Other long term (current) drug therapy
CPT/HCPCS: 36415; 80048; 83735; 84439; 84443; 85025

== ENCOUNTER → 2023-05-29 | Outpatient (CLI) | payer MEDICARE, SELFPAY | END | disposition home or self-care (01) | LOC: LABSPEC 15:30 | PROVIDERS: PCP Internal Medicine; Referring Provider Internal Medicine; Visit Provider Internal Medicine | DX: R30.0 Dysuria (principal) | CPT/HCPCS: 87077; 87086; 87088; 87186 ==

== ENCOUNTER → 2023-06-23 | Outpatient (CLI) | payer MEDICARE, SELFPAY ==
--- NOTE | 2023-06-23 13:13 | ECHODONC_ITS ---
Reason For Study: DRUG MONITORING Procedure This was a 2D Doppler, Color Flow transthoracic echocardiogram. Myocardial strain analysis was performed in this exam to aid in the assessment of cardiac function. Exam performed in department. Left Ventricle Normal LV size. Mild concentric left ventricular hypertrophy. Left ventricular systolic function is normal. The estimated ejection fraction is 60 %. Stage 3 diastolic dysfunction. No regional wall motion abnormalities noted. Right Ventricle Normal RV size. Normal systolic function. Atria The left atrium is severely enlarged. Normal right atrium. Mitral Valve Normal mitral valve. Tricuspid Valve Normal tricuspid valve. Aortic Valve Trisinus/trileaflet aortic valve. Pulmonic Valve Normal pulmonic valve. Great Vessels Normal aortic root. The pulmonary artery is normal size. Normal inferior vena cava. Pericardium/Pleural No pericardial effusion. MMode/2D Measurements & Calculations LVIDd: 4.9 cm IVSd: 1.4 cm Ao root diam: 3.1 cm LVIDs: 3.2 cm LVPWd: 1.4 cm RVDd: 3.5 cm FS: 34.2 % LAV(MOD-bp): 114.0 ml LVAd ap4: 24.8 cm2 SV(MOD-sp4): 40.8 ml LAV(MOD-bp) Indexed: 55.8 ml/m2 LVLd ap4: 7.2 cm LAV(MOD-sp2): 98.9 ml EDV(MOD-sp4): 70.4 ml LAV(MOD-sp4): 134.6 ml EDV(sp4-el): 73.1 ml LVAs ap4: 13.8 cm2 LVLs ap4: 5.6 cm ESV(MOD-sp4): 29.6 ml ESV(sp4-el): 29.0 ml EF(MOD-sp4): 57.9 % EF(sp4-el): 60.3 % SV(sp4-el): 44.1 ml LA A4 area: 34.8 cm2 LA dimension(2D): 4.5 cm RA A4 area: 16.0 cm2 TAPSE: 2.3 cm Time Measurements MV dec time: 0.16 sec Doppler Measurements & Calculations MV E max nick: 107.6 cm/sec Lat Peak E' Nick: 12.0 cm/sec Med Peak E' Nick: 6.0 cm/sec MV A max nick: 34.0 cm/sec E/E' lat: 9.0 E/E' med: 18.1 MV E/A: 3.2 MV V2 max: 121.3 cm/sec Ao V2 max: 197.7 cm/sec MV max P.9 mmHg MV dec slope: 686.5 cm/sec2 Ao max P.7 mmHg MV V2 mean: 53.3 cm/sec Ao V2 mean: 131.8 cm/sec MV mean P.5 mmHg Ao mean P.0 mmHg MV V2 VTI: 33.2 cm Ao V2 VTI: 46.3 cm AV (velocity ratio): 0.58 LV V1 max: 120.2 cm/sec PA V2 max: 121.9 cm/sec LV V1 max P.8 mmHg PA V2 mean: 85.3 cm/sec LV V1 mean P.0 mmHg LV V1 mean: 81.0 cm/sec LV V1 VTI: 26.7 cm ECHO/ONC Echo Complete Interpretation Summary Normal LV size. Mild concentric left ventricular hypertrophy. Left ventricular systolic function is normal. The estimated ejection fraction is 60 %. Stage 3 diastolic dysfunction. The left atrium is severely enlarged. The global longitudinal strain is normal. The global longitudinal strain = -16. 4% (abnormal). Ordering Physician: Leon Joy Referring Physician: Leon Joy Performed By: Priyanka Stanford RCS
== END | disposition home or self-care (01) ==
LOC: CVS 13:12
PROVIDERS: PCP Internal Medicine; Referring Provider Nurse Practitioner Family; Visit Provider Nurse Practitioner Family
DX: I10 Essential (primary) hypertension (principal); I48.91 Unspecified atrial fibrillation; I34.0 Nonrheumatic mitral (valve) insufficiency; Z51.81 Encounter for therapeutic drug level monitoring; Z79.899 Other long term (current) drug therapy
CPT/HCPCS: 93306; 93356

== ENCOUNTER → 2023-10-02 | Outpatient (CLI) | payer MEDICARE, SELFPAY ==
[2023-10-02 12:36] LABS: Absolute Lymphocyte Count 1.49 X10^3/uL (0.83-4.51); Absolute Neutrophil Count 5.6 X10^3/uL (2.0-7.7); Basophil# 0.04 X10^3/uL; Basophil% 0.5 % (0-1); Eosinophil# 0.09 X10^3/uL; Eosinophils% 1.1 % (0-5); Hematocrit 47.3 % (37-47); Hemoglobin 14.4 g/dL (12.0-15.0); Lymphocyte # 1.49 X10^3/ul (0.83-4.51); Lymphocyte % 18.2 % (19-41); Mean Corp Hgb Conc 30.4 g/dL (32-36); Mean Corpuscular Hgb 28.6 pg (27.0-32.0); Mean Corpuscular Volume 93.8 fL (81-99); Mean Platelet Vol. 11.3 fl (6.2-12.0); Monocyte# 0.92 X10^3/uL; Monocyte% 11.2 % (0-10); NRBC Flagged by Analyzer 0 % (0-5); Neutrophil # 5.61 X10^3/uL (2.7-7.7); Neutrophil % 68.6 % (47-70); Platelet Count 206 K/mm3 (150-450); RBC Distribution Width CV 13.1 % (11.6-14.6); RBC Distribution Width SD 44.8 fl (35.1-43.9); Red Blood Count 5.04 M/mm3 (4.2-5.4); White Blood Count 8.2 K/mm3 (4.4-11.0)
[2023-10-02 12:54] LABS: BNP,B-Type NATRIURETIC PEPTIDE 266.8 pg/mL (0-100)
[2023-10-02 13:27] LABS: ALB/GLOB Ratio 1.2 RATIO (0.9-2.4); AST(SGOT) 28 U/L (15-37); Alanine Aminotransfer ALT/SGPT 24 U/L (13-56); Albumin, Serum 3.8 g/dL (3.2-5.0); Alkaline Phosphatase 46 U/L (45-117); Anion Gap 6 (5-15); BUN 28 mg/dL (7-18); BUN/Creat Ratio 25.2 RATIO (10-20); Calcium,Total 9.6 mg/dL (8.5-10.1); Chloride 107 mmol/L (98-107); Creatinine, Serum 1.11 mg/dL (0.55-1.02); EST Glomerular Filtration Rate 51 mL/min (>60); Est Glom Filt Rate - Afr Amer 62 mL/min (>60); Globulin 3.1 g/dL (2.2-4.2); Glucose 117 mg/dL (74-106); Potassium 5.3 mmol/L (3.5-5.1); Protein, Total 6.9 g/dL (6.4-8.2); Sodium Level 140 mmol/L (136-145)
== END | disposition home or self-care (01) ==
LOC: BIMLAB 11:36
PROVIDERS: PCP Internal Medicine; Visit Provider Internal Medicine
DX: I21.4 Non-ST elevation (NSTEMI) myocardial infarction (principal); I11.0 Hypertensive heart disease with heart failure; I50.30 Unspecified diastolic (congestive) heart failure
CPT/HCPCS: 36415; 80053; 83880; 85025

== ENCOUNTER → 2023-10-04 | Outpatient (CLI) | payer MEDICARE, SELFPAY ==
--- NOTE | 2023-10-04 10:15 | RAD_ITS ---
STUDY: X-RAY CHEST REASON FOR EXAM: Female, 77 years old. Shortness of breath. TECHNIQUE: Frontal and lateral views of the chest. COMPARISON: None. FINDINGS: Right internal jugular catheter with tip projected over the upper SVC. Mild hyperinflation. Mild diffuse interstitial prominence. There is no demonstrated pleural abnormality. Cardiomegaly. Normal mediastinum and ricardo. Prominent central pulmonary arteries. Aortic tortuosity. Diffuse thoracic osteopenia with diffuse mild spondylosis and increased kyphosis. Normal visualized ribs, clavicles, and shoulders. No abnormality of the visualized soft tissue structures of the upper abdomen. RAD/Chest PA and Lateral IMPRESSION: Cardiomegaly with hyperinflation and no acute or active cardiopulmonary disease. Electronically Signed: Aniceto Mcarthur MD at 10:59 EDT ,
== END | disposition home or self-care (01) ==
PROVIDERS: PCP Internal Medicine; Referring Provider Internal Medicine; Visit Provider Internal Medicine
DX: R06.02 Shortness of breath (principal)
CPT/HCPCS: 71046

== ENCOUNTER → 2023-10-16 | Outpatient (CLI) | payer MEDICARE, SELFPAY ==
[2023-10-16 13:45] LABS: Anion Gap 6 (5-15); BUN 41 mg/dL (7-18); BUN/Creat Ratio 33.6 RATIO (10-20); Calcium,Total 9.6 mg/dL (8.5-10.1); Chloride 106 mmol/L (98-107); Creatinine, Serum 1.22 mg/dL (0.55-1.02); EST Glomerular Filtration Rate 46 mL/min (>60); Est Glom Filt Rate - Afr Amer 55 mL/min (>60); Glucose 80 mg/dL (74-106); Potassium 4.9 mmol/L (3.5-5.1); Sodium Level 138 mmol/L (136-145)
== END | disposition home or self-care (01) ==
LOC: LAB 12:22
PROVIDERS: PCP Internal Medicine; Referring Provider Nurse Practitioner Gerontology; Visit Provider Nurse Practitioner Gerontology
DX: E87.5 Hyperkalemia (principal)
CPT/HCPCS: 36415; 80048

== ENCOUNTER 2024-02-18 07:14 | Emergency (ER) | payer MEDICARE, SELFPAY ==
[2024-02-18 07:17] VITALS: BP 174/73; PULSE 69; RESP 23; TEMP 36.3; O2SAT 95
--- NOTE | 2024-02-18 07:21 | EKG12_ITS ---
Test Reason : CP Blood Pressure : / mmHG Vent. Rate : 061 BPM Atrial Rate : 061 BPM P-R Int : 142 ms QRS Dur : 096 ms QT Int : 454 ms P-R-T Axes : 088 062 052 degrees QTc Int : 457 ms Normal sinus rhythm with sinus arrhythmia Normal ECG Confirmed by DEEPTI WOLFE, FLOYD ([id number]), editor managing director THADDEUS GARCIA ([id number]) on 02/20/2024 2:24:03 PM Referred By: Confirmed By:ARNOLD TATUM MD
--- NOTE | 2024-02-18 07:52 | RAD_ITS ---
STUDY: X-RAY CHEST REASON FOR EXAM: Female, 78 years old. Chest pain TECHNIQUE: Frontal view of the chest COMPARISON: 10/04/2023 FINDINGS: There is a right-sided port with its tip in the superior vena cava. The lungs are clear. There are no pleural effusions. There is no pneumothorax. The heart is normal in size. The visualized osseous structures are within normal limits. RAD/Chest 1 View (Portable) IMPRESSION: No acute thoracic pathology. Electronically Signed: Daniel Cote MD at 8:27 EDT ,
[2024-02-18 07:56] LABS: Absolute Lymphocyte Count 0.99 X10^3/uL (0.83-4.51); Absolute Neutrophil Count 4.9 X10^3/uL (2.0-7.7); Basophil# 0.02 X10^3/uL; Basophil% 0.3 % (0-1); Eosinophil# 0.09 X10^3/uL; Eosinophils% 1.4 % (0-5); Hematocrit 44.4 % (37-47); Lymphocyte # 0.99 X10^3/ul (0.83-4.51); Lymphocyte % 14.9 % (19-41); Mean Corp Hgb Conc 31.5 g/dL (32-36); Mean Corpuscular Hgb 27.8 pg (27.0-32.0); Mean Corpuscular Volume 88.1 fL (81-99); Mean Platelet Vol. 10.5 fl (6.2-12.0); Monocyte# 0.61 X10^3/uL; Monocyte% 9.2 % (0-10); NRBC Flagged by Analyzer 0 % (0-5); Neutrophil # 4.91 X10^3/uL (2.7-7.7); Neutrophil % 73.7 % (47-70); Platelet Count 212 K/mm3 (150-450); RBC Distribution Width CV 14.1 % (11.6-14.6); RBC Distribution Width SD 45.2 fl (35.1-43.9); Red Blood Count 5.04 M/mm3 (4.2-5.4); White Blood Count 6.7 K/mm3 (4.4-11.0)
--- NOTE | 2024-02-18 08:02 | ED.VIS.CHEST ---
HPI History of Present Illness Chief Complaint: Chest Pain Narrative Narrative: 78-year-old female presenting with sharp intermittent chest pain that started at 530 this morning. She states he is currently pain-free. No other associated symptoms. Patient states the pain woke her up from sleep. She has a history of A-fib is on Eliquis. Patient denies fever, chills, cough. She denies nausea, vomiting. She denies shortness of breath. Patient denies previous SD. [facility] Medical History Breast cancer screening Grief reaction Non-rheumatic tricuspid valve insufficiency Non-rheumatic mitral regurgitation History of cardioversion (~06/28/22) Chronic atrial fibrillation with RVR Obstructive sleep apnea Chronic obstructive pulmonary disease Depression Preop cardiovascular exam Port-A-Cath in place Ovarian cancer Pelvic mass Ascites Diarrhea Abdominal pain Flu vaccine need Vitamin D deficiency Essential hypertension Diastolic congestive heart failure Atherosclerotic heart disease of [place] coronary artery without angina pectoris Long-term use of high-risk medication SOB (shortness of breath) Pulmonary HTN Panic disorder Hiatal hernia Debility Paroxysmal atrial fibrillation with rapid ventricular response Streptococcal pneumonia Acute exacerbation of chronic obstructive pulmonary disease (COPD) Acute respiratory failure with hypoxia and hypercarbia NSTEMI (non-ST elevated myocardial infarction) Sepsis Junctional rhythm Spastic colon Morbid obesity PAF (paroxysmal atrial fibrillation) HLD (hyperlipidemia) CAD (coronary artery disease) Anxiety DM2 (diabetes mellitus, type 2) Hypokalemia Home Medications ?Medication ?Instructions ?Recorded ?Last Taken ?Type compress.stocking,knee,reg,lrg #2 ea 05/06/19 Unknown Rx lancing device #1 ea 12/29/20 Unknown Rx magnesium oxide 400 mg PO BID supplement 04/08/22 06/26/22 History docusate sodium 100 mg capsule 100 mg PO BID PRN Constipation 05/04/22 Unknown History (Colace) acetaminophen 500 mg tablet 1,000 mg (2 x 500 mg) PO Q6H PRN 05/16/22 06/26/22 Rx Pain Score 1-5 #0 tabs albuterol sulfate 90 mcg/actuation 1 inh inhalation ONCE SOB 05/23/22 Unknown History aerosol inhaler (Ventolin HFA) loperamide 2 mg tablet 2 mg PO Q6H PRN Diarrhea 06/27/22 Unknown History multivitamin 1 tab PO DAILY 11/25/22 Unknown History metformin 500 mg tablet 500 mg PO BID #180 tabs 01/30/23 Unknown Rx furosemide 40 mg tablet 20 mg PO PRN fluid 02/22/23 Unknown History hydrochlorothiazide 25 mg tablet 25 mg PO DAILY #90 tabs 03/29/23 Unknown Rx pantoprazole 40 mg tablet,delayed 40 mg PO BID GERD #180 tabs 04/05/23 Unknown Rx release cholecalciferol (vitamin D3) 1,250 50,000 unit PO QWEEK supplement 04/17/23 Unknown Rx mcg (50,000 unit) tablet #12 tabs duloxetine 60 mg capsule,delayed See Rx Instructions .Route 04/17/23 Unknown Rx release .COMPLEX #90 caps albuterol sulfate 90 mcg/actuation 2 puff inhalation Q4H PRN 04/21/23 Unknown Rx aerosol inhaler shortness of breath or wheezing #3 device ibandronate 150 mg tablet 150 mg PO QMONTH #14 tabs 06/09/23 Unknown Rx spironolactone 25 mg tablet 25 mg PO DAILY Dose decreased 10/06/23 Unknown Rx today #90 tabs fenofibrate micronized 134 mg 134 mg PO QPM #90 caps 10/17/23 Unknown Rx capsule amlodipine 10 mg tablet 5 mg (1/2 x 10 mg) PO BID #90 tabs 10/23/23 Unknown Rx doxazosin 2 mg tablet 2 mg PO QHS #30 tabs 10/23/23 Unknown Rx bevacizumab 25 mg/mL intravenous mg intravitreal MONTHLY 11/24/23 Unknown History solution (Avastin) lorazepam 0.5 mg tablet (Ativan) 0.5 mg PO BID PRN Anxiety #30 tabs 12/11/23 Unknown Rx buspirone 10 mg tablet 20 mg (2 x 10 mg) PO TID 3 months 12/13/23 Unknown Rx #540 TABLETS sotalol 120 mg tablet 120 mg PO BID heart #180 tabs 12/13/23 Unknown Rx fluticasone 500 mcg-salmeterol 50 1 inh inhalation BID #3 ea 02/01/24 Unknown Rx mcg/dose blistr powdr for inhalation (Wixela Inhub) ezetimibe 10 mg tablet (Zetia) 10 mg PO QDAY cholesterol #90 tabs 02/06/24 Unknown Rx apixaban 5 mg tablet (Eliquis) 5 mg PO BID #180 tabs 02/08/24 Unknown Rx lisinopril 20 mg tablet 20 mg PO .COMPLEX 02/15/24 Unknown History lisinopril 30 mg tablet 30 mg PO .COMPLEX 02/15/24 Unknown History Allergy/AdvReac Type Severity Reaction Status Date / Time amoxicillin Allergy Severe hives Verified 01/12/24 11:21 chlorhexidine Allergy Unknown red skin Verified 01/12/24 11:21 morphine Allergy Unknown headaches Verified 01/12/24 11:21 labetalol Allergy Unknown Verified 01/12/24 11:21 pitavastatin (From Livalo) Allergy Other Verified 01/12/24 11:21 simvastatin (From Zocor) Allergy Other Verified 01/12/24 11:21 atorvastatin (From Lipitor) AdvReac Unknown myalgias Verified 01/12/24 11:21 budesonide (From Symbicort) AdvReac Other Verified 01/12/24 11:21 formoterol (From Symbicort) AdvReac Other Verified 01/12/24 11:21 hydrocodone (From Vicodin) AdvReac Other Verified 01/12/24 11:21 [id number]-[id number]-ZxL Reductase AdvReac Other Verified 01/12/24 11:21 Inhibitor (Byqjatw-Nlm-Ewt Reductase Inhibitor) Family History Mother Cancer leukemia Father Respiratory disease Grandfather Myocardial infarction Grandmother Myocardial infarction Son Diabetes Surgical History Status post catheter ablation of atrial fibrillation History of hysterectomy History of exploratory laparotomy History of cataract surgery History of tonsillectomy and adenoidectomy History of surgery on right wrist History of colonoscopy Social History household members: spouse Smoking Status: Never smoker alcohol intake: never substance use type: does not use caffeine: Yes Type: coffee Number of servings: 1 what type of physical activity do you participate in: none seatbelt use: always do you feel safe at home: Yes ROS ROS ED Constitutional Constitutional ED: Denies chills, fever(s) or sweats Eyes Eyes: Denies blurry vision or change in vision ENT ENT ED: Denies ear pain or sore throat Cardiovascular Cardiovascular: Reports as per HPI; Denies chest pain, palpitations or racing heartbeat Respiratory/Chest Respiratory/Chest: Denies cough, dyspnea or sputum Gastrointestinal Gastrointestinal: Denies abdominal pain, constipation, diarrhea, nausea or vomiting Genitourinary Genitourinary ED: Denies dysuria, hematuria or urinary frequency Musculoskeletal Musculoskeletal: Denies arthralgias, myalgias or neck pain Integumentary Denies abscess, Abrasions or rash Neurologic Neurologic: Denies headache(s), paresthesias or weakness Psychiatric Psychiatric: Denies anxiety, depression, suicidal ideation or suicidal thoughts Endocrine Endocrinology: Denies polydipsia or polyuria EXAM Physical Exam Const Vital Signs: 02/18/24 07:17 02/18/24 07:17 02/18/24 07:21 Temperature 97.4 F L Temperature Source Temporal Pulse Rate 69 Respiratory Rate 23 H Respiratory Effort Normal Non-Labored Blood Pressure 174/73 H Blood Pressure Mean 106 Pulse Ox 95 Oxygen Delivery Method Room Air Room Air Positive well nourished General Appearance ED: NAD; Negative for pallor HEENT Reports moist mucous membranes normocephalic Eyes PERRL and EOMs intact bilaterally Chest Wall inspection of chest normal Resp normal respiratory effort and clear to auscultation bilaterally Auscultation: Negative for rales, rhonchi or wheezes Cardio regular rate and regular rhythm GI normal to inspection, nondistended, normoactive bowel sounds Neuro oriented x3 and CN's II-XII intact bilaterally Sensorium / Orientation: awake and alert Psych mental status grossly normal Skin no rashes or lesions noted General Skin Exam: Negative for jaundice or pallor Heart Score History: Slightly/Non-Suspicious ECG: Normal Age: >/= 65 years Risk Factors: >/= 3 Risk Factors or History of CAD Troponin: </= Normal Limit Score: 4 MDM MDM Lab Data Labs: Laboratory Results - last 24 hr 02/18/24 07:45 WBC 6.7 RBC 5.04 Hgb 14.0 Hct 44.4 MCV 88.1 MCH 27.8 MCHC 31.5 L RDW Std Deviation 45.2 H RDW Coeff of [place] 14.1 Plt Count 212 MPV 10.5 Immature Gran % (Auto) 0.500 Neut % (Auto) 73.7 H Lymph % (Auto) 14.9 L [place] % (Auto) 9.2 Eos % (Auto) 1.4 Baso % (Auto) 0.3 Absolute Neuts (auto) 4.9 Absolute Lymphs (auto) 0.99 Nucleated RBC % 0 Discharge Plan Triage Chief Complaint: Chest Pain ED Provider: Juan Luis Jennings Dx/Rx/DC Orders Prescriptions: No Action (DME) compress.stocking,knee,reg,lrg Misc See Rx Instructions .ROUTE .MEDSUPPLY Qty: 2 1RF Rx Instructions: wear daily for venous insufficiency 20-30 mmHg magnesium oxide 400 mg magnesium capsule 400 mg PO BID loperamide 2 mg tablet 2 mg PO Q6H PRN (Reason: Diarrhea) albuterol sulfate [Ventolin HFA] 90 mcg/actuation HFA aerosol inhaler 1 inh inhalation ONCE multivitamin Tablet 1 tab PO DAILY ibandronate 150 mg tablet 150 mg PO QMONTH Qty: 14 2RF hydrochlorothiazide 25 mg tablet 25 mg PO DAILY Qty: 90 3RF Avastin 25 mg/mL solution intravitreal MONTHLY furosemide 40 mg tablet 20 mg PO PRN docusate sodium [Colace] 100 mg Capsule 100 mg PO BID PRN (Reason: Constipation) acetaminophen 500 mg Tablet 1,000 mg PO Q6H PRN (Reason: Pain Score 1-5) Qty: 0 0RF (DME) lancing device Misc See Rx Instructions .ROUTE .MEDSUPPLY Qty: 1 0RF Rx Instructions: As directed metformin 500 mg tablet 500 mg PO BID Qty: 180 3RF pantoprazole 40 mg tablet,delayed release (DR/EC) 40 mg PO BID Qty: 180 3RF duloxetine 60 mg capsule,delayed release(DR/EC) See Rx Instructions .ROUTE .COMPLEX Qty: 90 3RF Dose Instruction: TAKE 1 CAPSULE BY MOUTH DAILY FOR DEPRESSION Rx Instructions: TAKE 1 CAPSULE BY MOUTH DAILY FOR DEPRESSION cholecalciferol (vitamin D3) 1,250 mcg (50,000 unit) tablet 50,000 unit PO QWEEK Qty: 12 2RF albuterol sulfate 90 mcg/actuation HFA aerosol inhaler 2 puff inhalation Q4H PRN (Reason: shortness of breath or wheezing) Qty: 3 3RF spironolactone 25 mg tablet 25 mg PO DAILY Qty: 90 3RF fenofibrate micronized 134 mg capsule 134 mg PO QPM Qty: 90 1RF amlodipine 10 mg tablet 5 mg PO BID Qty: 90 3RF doxazosin 2 mg tablet 2 mg PO QHS Qty: 30 11RF lorazepam [Ativan] 0.5 mg tablet 0.5 mg PO BID PRN (Reason: Anxiety) Qty: 30 0RF Patient Comments: ran out in April buspirone 10 mg tablet 20 mg PO TID 90 Days Qty: 540 1RF sotalol 120 mg tablet 120 mg PO BID Qty: 180 3RF fluticasone propion-salmeterol [Wixela Inhub] 500-50 mcg/dose blister with device 1 inh inhalation BID Qty: 3 3RF ezetimibe [Zetia] 10 mg tablet 10 mg PO QDAY Qty: 90 2RF Eliquis 5 mg tablet 5 mg PO BID Qty: 180 4RF lisinopril 30 mg tablet 30 mg PO .COMPLEX Rx Instructions: 30 mg orally qhs: pt takes 20 mg of Lisinopril qam per Dr. Ochoa; lisinopril 20 mg tablet 20 mg PO .COMPLEX Rx Instructions: 20 mg orally Q AM: pt takes 30 mg tablet of Lisinporil at [facility], ordered by Dr. Ochoa; Primary Care Provider: Quique Mims Referrals: Quique Mims MD [Primary Care Provider] - Print Language: Bengali
[2024-02-18 08:08] LABS: Anion Gap 5 (5-15); BUN 26 mg/dL (7-18); BUN/Creat Ratio 25.2 RATIO (10-20); Calcium,Total 9.2 mg/dL (8.5-10.1); Chloride 105 mmol/L (98-107); Creatinine, Serum 1.03 mg/dL (0.55-1.02); EST Glomerular Filtration Rate 55 mL/min (>60); Est Glom Filt Rate - Afr Amer 67 mL/min (>60); Glucose 127 mg/dL (74-106); Potassium 4.1 mmol/L (3.5-5.1); Sodium Level 138 mmol/L (136-145); Troponin-I HS (w/2H Reflex) 14 pg/mL (3.0-54.0)
[2024-02-18 08:15] VITALS: BP 164/77; PULSE 65; RESP 21; O2SAT 93
[2024-02-18 09:00] VITALS: BP 167/76; PULSE 65; RESP 19; O2SAT 96
[2024-02-18 09:48] LABS: Reflex Troponin-HS? (from REC) Y
[2024-02-18 10:00] VITALS: BP 163/81; PULSE 62; RESP 21; O2SAT 95
[2024-02-18 10:40] LABS: Troponin-I HS 12 pg/mL (3.0-54.0)
[2024-02-18 11:00] VITALS: BP 172/84; PULSE 65; RESP 16; O2SAT 95
[2024-02-18 11:20] VITALS: BP 172/84; PULSE 65; RESP 16; TEMP 36; O2SAT 95
== END 2024-02-18 11:21 | disposition home or self-care (01) ==
PROVIDERS: Emergency Provider Student in an Organized Health Care Education/Training Program; PCP Internal Medicine; Visit Provider Student in an Organized Health Care Education/Training Program
DX: R07.9 Chest pain, unspecified (principal); I11.0 Hypertensive heart disease with heart failure; I50.32 Chronic diastolic (congestive) heart failure; J44.9 Chronic obstructive pulmonary disease, unspecified; I48.91 Unspecified atrial fibrillation; E11.9 Type 2 diabetes mellitus without complications; I25.10 Atherosclerotic heart disease of native coronary artery without angina pectoris; E78.5 Hyperlipidemia, unspecified; G47.33 Obstructive sleep apnea (adult) (pediatric); I25.2 Old myocardial infarction; Z79.01 Long term (current) use of anticoagulants
CPT/HCPCS: 36415; 71045; 80048; 84484; 85025; 93005; 99285; A4216

== ENCOUNTER → 2024-02-28 | Outpatient (CLI) | payer MEDICARE, SELFPAY ==
[2024-02-28 10:21] LABS: Mucous, Urine 0 SEEN /hpf (<or=2+)
[2024-02-28 12:17] LABS: Color, Urine Yellow (Yellow); Glucose, Dipstick Normal (Normal); Ketone-Dipstick Negative (Negative); Leukocyte Esterase-Dipstick 500 /ul (Negative); Nitrite-Dipstick Negative (Negative); Occult Blood-Urine 10 /ul (Negative); Protein-Dipstick 30 mg/dl (Negative); Urine Bilirubin Dipstick Negative (Negative); Urine Clarity Sl. Cloudy (Clear); Urine Urobilinogen Normal (Normal)
[2024-02-28 12:26] LABS: Bacteria 2+ /hpf (None Seen); Squamous Epithelial Cells - UA 5-10 SEEN /hpf (5-10); White Blood Cells 25-50 SEEN /hpf (0-5)
[2024-02-28 12:27] LABS: Red Blood Cells-Urine 0-5 SEEN /hpf (0-5)
== END | disposition home or self-care (01) ==
LOC: LABSPEC 10:20
PROVIDERS: PCP Internal Medicine; Referring Provider Internal Medicine; Visit Provider Internal Medicine
DX: R35.0 Frequency of micturition (principal); R82.90 Unspecified abnormal findings in urine
CPT/HCPCS: 81001; 87086; 87088

== ENCOUNTER 2024-05-08 12:41 | Inpatient (IN) | payer MEDICARE, SELFPAY ==
[2024-05-08] VITALS (29 sets, daily range): BP systolic 73–180; BP diastolic 43–94; PULSE 72–104; RESP 12–49; TEMP 36.5–40.7; O2SAT 91–99; BMI 43.8; BMI 41.0
--- NOTE | 2024-05-08 13:08 | EKG12_ITS ---
Test Reason : Blood Pressure : / mmHG Vent. Rate : 097 BPM Atrial Rate : 000 BPM P-R Int : 000 ms QRS Dur : 088 ms QT Int : 322 ms P-R-T Axes : 000 071 -01 degrees QTc Int : 408 ms Accelerated Junctional rhythm ST & T wave abnormality, consider inferior ischemia Abnormal ECG When compared with ECG of 08-MAY-2024 13:13, MANUAL COMPARISON REQUIRED, DATA IS UNCONFIRMED Confirmed by Bryce Bender ([id number]), editorial project manager MONTY ARIZMENDI ([id number]) on 05/09/2024 10:44:26 AM Referred By: Confirmed By:Bryce Bender
[2024-05-08 13:32] LABS: Absolute Lymphocyte Count 0.22 X10^3/uL (0.83-4.51); Absolute Neutrophil Count 4.7 X10^3/uL (2.0-7.7); Basophil# 0.03 X10^3/uL; Basophil% 0.6 % (0-1); Eosinophil# 0.03 X10^3/uL; Eosinophils% 0.6 % (0-5); Hematocrit 49.5 % (37-47); Hemoglobin 15.6 g/dL (12.0-15.0); Lymphocyte # 0.22 X10^3/ul (0.83-4.51); Lymphocyte % 4.3 % (19-41); Mean Corp Hgb Conc 31.5 g/dL (32-36); Mean Corpuscular Hgb 27.8 pg (27.0-32.0); Mean Corpuscular Volume 88.1 fL (81-99); Mean Platelet Vol. 10.3 fl (6.2-12.0); Monocyte# 0.03 X10^3/uL; Monocyte% 0.6 % (0-10); NRBC Flagged by Analyzer 0 % (0-5); Neutrophil % 92.5 % (47-70); POSITIVE DIFFERENTIAL YES; POSITIVE MORPHOLOGY YES; Platelet Count 237 K/mm3 (150-450); RBC Distribution Width CV 14.3 % (11.6-14.6); RBC Distribution Width SD 45.4 fl (35.1-43.9); Red Blood Count 5.62 M/mm3 (4.2-5.4); White Blood Count 5.1 K/mm3 (4.4-11.0)
[2024-05-08 13:33] LABS: Differential Indicated SCAN CRITERIA MET
[2024-05-08 13:42] LABS: International Normalized Ratio 1.2; Prothrombin Time (Protime)PT. 15.2 SECONDS (11.7-14.9)
[2024-05-08 13:50] LABS: Differential Comment SCANNED; Reactive Lymphocyte 1+
[2024-05-08 13:51] LABS: AST(SGOT) 31 U/L (15-37); Alanine Aminotransfer ALT/SGPT 28 U/L (13-56); Albumin, Serum 3.5 g/dL (3.2-5.0); Alkaline Phosphatase 76 U/L (45-117); Anion Gap 10 (5-15); BUN 42 mg/dL (7-18); BUN/Creat Ratio 28.8 RATIO (10-20); Calcium,Total 9.3 mg/dL (8.5-10.1); Chloride 106 mmol/L (98-107); Creatinine, Serum 1.46 mg/dL (0.55-1.02); EST Glomerular Filtration Rate 37 mL/min (>60); Est Glom Filt Rate - Afr Amer 45 mL/min (>60); Estimated Creatinine Clearance 38.08 ml/min; Globulin 3.6 g/dL (2.2-4.2); Glucose 138 mg/dL (74-106); Potassium 4.2 mmol/L (3.5-5.1); Protein, Total 7.1 g/dL (6.4-8.2); Sodium Level 139 mmol/L (136-145); Troponin-I HS 24 pg/mL (3.0-54.0)
[2024-05-08 14:00] LABS: Lactic Acid 1.9 mmol/L (0.4-1.9)
[2024-05-08 14:05] LABS: Bacteria 0 SEEN /hpf (None Seen); Mucous, Urine 0 SEEN /hpf (<or=2+); White Blood Cells 0 SEEN /hpf (0-5)
--- NOTE | 2024-05-08 14:05 | RAD_ITS ---
INDICATION: cough EXAMINATION/TECHNIQUE: X-RAY - XR Chest 1 View COMPARISON: Prior study dated: 02/18/2024 FINDINGS: LINES/DEVICES: Right-sided Port-A-Cath in stable position. LUNGS: No consolidation, edema or effusion. No pneumothorax. MEDIASTINUM AND CARDIOVASCULAR STRUCTURES: Cardiac silhouette not enlarged. Central airways and mediastinal contour are unremarkable. BONES AND SOFT TISSUES: Stable soft tissues and osseous structures. RAD/Chest 1 View (Portable) IMPRESSION: No radiographic evidence of acute cardiopulmonary disease. Electronically Signed: Roel Peter MD at 14:26 EDT ,
--- NOTE | 2024-05-08 14:08 | EX.ED.DYSGE1 ---
HPI <Dr. Donte Vaca DO - Last Filed: 05/08/24 14:27> History of Present Illness Chief Complaint: Back Informant: patient and family Narrative Narrative: 78-year-old female presenting to the emergency room with chief complaint of low back pain left flank pain and chills. Patient has multiple medical problems including a history of atrial fibrillation diabetes ovarian cancer pulmonary hypertension and chronic anticoagulation. Patient states that she got her flu shot on Monday. She began to feel ill last evening. She states her biggest complaint is chills. She states she is also been having dry heaves. She is on apixaban. No reported fevers. She does not wear home oxygen. She notes a slight cough but states that it is normal for her. She denies any rashes or leg swelling. She notes chronic urinary incontinence. She currently receives avastin for her chemotherapy [facility] <Dr. Donte Vaca DO - Last Filed: 05/08/24 14:27> [facility] Medical History OAB (overactive bladder) Atypical chest pain Urinary frequency Breast cancer screening Grief reaction Non-rheumatic tricuspid valve insufficiency Non-rheumatic mitral regurgitation History of cardioversion (~06/28/22) Chronic atrial fibrillation with RVR Obstructive sleep apnea Chronic obstructive pulmonary disease Depression Preop cardiovascular exam Port-A-Cath in place Ovarian cancer Pelvic mass Ascites Diarrhea Abdominal pain Flu vaccine need Vitamin D deficiency Essential hypertension Diastolic congestive heart failure Atherosclerotic heart disease of [place] coronary artery without angina pectoris Long-term use of high-risk medication SOB (shortness of breath) Pulmonary HTN Panic disorder Hiatal hernia Debility Paroxysmal atrial fibrillation with rapid ventricular response Streptococcal pneumonia Acute exacerbation of chronic obstructive pulmonary disease (COPD) Acute respiratory failure with hypoxia and hypercarbia NSTEMI (non-ST elevated myocardial infarction) Sepsis Junctional rhythm Spastic colon Morbid obesity PAF (paroxysmal atrial fibrillation) HLD (hyperlipidemia) CAD (coronary artery disease) Anxiety DM2 (diabetes mellitus, type 2) Hypokalemia Home Medications ?Medication ?Instructions ?Recorded ?Last Taken ?Type compress.stocking,knee,reg,lrg #2 ea 05/06/19 Unknown Rx lancing device #1 ea 12/29/20 Unknown Rx docusate sodium 100 mg capsule 100 mg PO BID PRN Constipation 05/04/22 Unknown History (Colace) acetaminophen 500 mg tablet 1,000 mg (2 x 500 mg) PO Q6H PRN 05/16/22 06/26/22 Rx Pain Score 1-5 #0 tabs albuterol sulfate 90 mcg/actuation 1 inh inhalation ONCE SOB 05/23/22 Unknown History aerosol inhaler (Ventolin HFA) loperamide 2 mg tablet 2 mg PO Q6H PRN Diarrhea 06/27/22 Unknown History multivitamin 1 tab PO DAILY 11/25/22 Unknown History furosemide 40 mg tablet 20 mg PO PRN fluid 02/22/23 Unknown History hydrochlorothiazide 25 mg tablet 25 mg PO DAILY #90 tabs 03/29/23 Unknown Rx cholecalciferol (vitamin D3) 1,250 50,000 unit PO QWEEK supplement 04/17/23 Unknown Rx mcg (50,000 unit) tablet #12 tabs duloxetine 60 mg capsule,delayed See Rx Instructions .Route 04/17/23 Unknown Rx release .COMPLEX #90 caps ibandronate 150 mg tablet 150 mg PO QMONTH #14 tabs 06/09/23 Unknown Rx spironolactone 25 mg tablet 25 mg PO DAILY Dose decreased 10/06/23 Unknown Rx today #90 tabs doxazosin 2 mg tablet 2 mg PO QHS #30 tabs 10/23/23 Unknown Rx bevacizumab 25 mg/mL intravenous mg intravitreal MONTHLY 11/24/23 Unknown History solution (Avastin) buspirone 10 mg tablet 20 mg (2 x 10 mg) PO TID 3 months 12/13/23 Unknown Rx #540 TABLETS fluticasone 500 mcg-salmeterol 50 1 inh inhalation BID #3 ea 02/01/24 Unknown Rx mcg/dose blistr powdr for inhalation (Wixela Inhub) ezetimibe 10 mg tablet (Zetia) 10 mg PO QDAY cholesterol #90 tabs 02/06/24 Unknown Rx amlodipine 5 mg tablet 5 mg PO BID #180 tabs 02/21/24 Unknown Rx lorazepam 0.5 mg tablet (Ativan) 0.5 mg PO BID PRN Anxiety #30 tabs 02/27/24 Unknown Rx pantoprazole 40 mg tablet,delayed 40 mg PO BID GERD #180 tabs 03/12/24 Unknown Rx release magnesium oxide 400 mg PO DAILY supplement 03/22/24 Unknown History metformin 500 mg tablet 500 mg PO BID #180 tabs 03/29/24 Unknown Rx sotalol 120 mg tablet 120 mg PO DAILY heart #180 tabs 04/10/24 Unknown Rx oxybutynin chloride 10 mg 10 mg PO DAILY #90 tabs 04/15/24 Unknown Rx tablet,extended release 24 hr apixaban 5 mg tablet (Eliquis) 5 mg PO BID #180 tabs 04/22/24 Unknown Rx fenofibrate micronized 134 mg 134 mg PO QPM #90 caps 04/25/24 Unknown Rx capsule lisinopril 20 mg tablet 20 mg PO BID #200 TABLETS 04/30/24 Unknown Rx Allergy/AdvReac Type Severity Reaction Status Date / Time amoxicillin Allergy Severe hives Verified 05/08/24 12:53 chlorhexidine Allergy Unknown red skin Verified 05/08/24 12:53 morphine Allergy Unknown headaches Verified 05/08/24 12:53 labetalol Allergy Unknown Verified 05/08/24 12:53 pitavastatin (From Livalo) Allergy Other Verified 05/08/24 12:53 simvastatin (From Zocor) Allergy Other Verified 05/08/24 12:53 atorvastatin (From Lipitor) AdvReac Unknown myalgias Verified 05/08/24 12:53 budesonide (From Symbicort) AdvReac Other Verified 05/08/24 12:53 formoterol (From Symbicort) AdvReac Other Verified 05/08/24 12:53 hydrocodone (From Vicodin) AdvReac Other Verified 05/08/24 12:53 Vskhzyo-SIP-OhN Reductase AdvReac Other Verified 05/08/24 12:53 Inhibitor (Jekxsbp-Ala-Dax Reductase Inhibitor) Family History Mother Cancer leukemia Father Respiratory disease Grandfather Myocardial infarction Grandmother Myocardial infarction Son Diabetes Surgical History Status post catheter ablation of atrial fibrillation History of hysterectomy History of exploratory laparotomy History of cataract surgery History of tonsillectomy and adenoidectomy History of surgery on right wrist History of colonoscopy Social History household members: spouse and children Smoking Status: Never smoker alcohol intake: never substance use type: does not use caffeine: Yes Type: coffee Number of servings: 1 what type of physical activity do you participate in: none seatbelt use: always do you feel safe at home: Yes ROS <Dr. Donte Vaca, - Last Filed: 05/08/24 14:27> ROS ED Constitutional Constitutional ED: Reports chills; Denies fever(s) or weight loss Eyes Eyes: Denies change in vision or diplopia ENT ENT ED: Denies ear pain, rhinorrhea or sore throat Cardiovascular Cardiovascular: Denies chest pain, orthopnea, palpitations or racing heartbeat Respiratory/Chest Respiratory/Chest: Reports cough; Denies dyspnea or orthopnea Gastrointestinal Gastrointestinal: Reports abdominal pain and nausea; Denies diarrhea or vomiting Genitourinary Genitourinary ED: Denies dysuria, hematuria or urinary frequency Musculoskeletal Musculoskeletal: Reports back pain; Denies arthralgias or myalgias Integumentary Denies abscess, Abrasions or rash Neurologic Neurologic: Denies headache(s), paresthesias or weakness Psychiatric Psychiatric: Denies anxiety, depression, suicidal ideation or suicidal thoughts Endocrine Endocrinology: Denies polydipsia, polyphagia or polyuria Allergic/Immunologic Allergic/Immunologic ED: Denies mouth swelling, tongue swelling or urticaria EXAM <Dr. Donte Vaca, - Last Filed: 05/08/24 14:27> Physical Exam Narrative Exam Narrative: Patient is shaking stating that she has child Const Vital Signs: 05/08/24 12:42 05/08/24 12:48 05/08/24 13:48 Temperature 98 F 98 F 98 F Temperature Source Oral Oral Oral Pulse Rate 78 94 96 Respiratory Rate 19 H 23 H 36 H Blood Pressure 180/83 H 180/83 H 174/71 H Blood Pressure Mean 115 115 105 Pulse Ox 91 92 Oxygen Delivery Method Room Air Venturi Mask Oxygen Flow Rate (L/min) 2 05/08/24 13:57 05/08/24 14:00 05/08/24 15:00 Temperature 98 F 98 F Temperature Source Oral Oral Pulse Rate 95 86 Respiratory Rate 35 H 30 H Blood Pressure 160/65 H 134/58 H Blood Pressure Mean 96 83 Pulse Ox 93 95 Oxygen Delivery Method Nasal Cannula Nasal Cannula Nasal Cannula Oxygen Flow Rate (L/min) 2 2 2 05/08/24 16:00 Temperature 98 F Temperature Source Oral Pulse Rate 86 Respiratory Rate 25 H Blood Pressure 129/54 H Blood Pressure Mean 79 Pulse Ox 96 Oxygen Delivery Method Nasal Cannula Oxygen Flow Rate (L/min) 2 Positive well nourished, well developed and obese General Appearance ED: well developed and NAD Nutritional Appearance: obese HEENT Reports normocephalic, head/scalp atraumatic and moist mucous membranes Eyes PERRL and EOMs intact bilaterally Neck no lymphadenopathy, supple and no JVD Resp normal respiratory effort and clear to auscultation bilaterally Cardio regular rate, regular rhythm and no murmurs GI normal to inspection, nondistended, normoactive bowel sounds and non-tender Palpation: soft Back/Spine no CVA tenderness Back/Spine Narrative: Tender to palpation across the lower lumbar soft tissues. I do not appreciate a rash. Extremity normal to inspection General Extremety ED: Negative for edema General Extremity: Negative for edema Neuro oriented x3 and CN's II-XII intact bilaterally Sensorium / Orientation: alert Motor Exam: strength 5/5 throughout Psych mental status grossly normal Mood & Affect: Negative for depressed or tearful Skin no rashes or lesions noted and no wounds <Dr. Zachary Davis MD - Last Filed: 05/08/24 16:17> Physical Exam Const Vital Signs: 05/08/24 12:42 05/08/24 12:48 05/08/24 13:48 Temperature 98 F 98 F 98 F Temperature Source Oral Oral Oral Pulse Rate 78 94 96 Respiratory Rate 19 H 23 H 36 H Blood Pressure 180/83 H 180/83 H 174/71 H Blood Pressure Mean 115 115 105 Pulse Ox 91 92 Oxygen Delivery Method Room Air Venturi Mask Oxygen Flow Rate (L/min) 2 05/08/24 13:57 05/08/24 14:00 05/08/24 15:00 Temperature 98 F 98 F Temperature Source Oral Oral Pulse Rate 95 86 Respiratory Rate 35 H 30 H Blood Pressure 160/65 H 134/58 H Blood Pressure Mean 96 83 Pulse Ox 93 95 Oxygen Delivery Method Nasal Cannula Nasal Cannula Nasal Cannula Oxygen Flow Rate (L/min) 2 2 2 05/08/24 16:00 Temperature 98 F Temperature Source Oral Pulse Rate 86 Respiratory Rate 25 H Blood Pressure 129/54 H Blood Pressure Mean 79 Pulse Ox 96 Oxygen Delivery Method Nasal Cannula Oxygen Flow Rate (L/min) 2 MDM <Dr. Donte Vaca DO - Last Filed: 05/08/24 14:27> MDM MDM Narrative Medical decision making narrative: Differential diagnosis is extremely broad. It would include but not limited to diverticulitis colitis bowel obstruction UTI/pyelonephritis viral syndrome postvaccination reaction anemia sepsis pneumonia White count 5.1 hemoglobin 15.6 platelet count is 237 PTT 15.2 INR 1.2 BUN of 42 creatinine 1.46 glucose 138 normal lactic acid of 1.9 troponin is 24 normal LFTs. Urinalysis was obtained which is a catheter specimen. This is negative for overt infection or gross hematuria. COVID influenza and RSV swabs were negative. My independent interpretation of the chest x-ray is chronic changes no acute findings. CT of the abdomen pelvis with IV contrast was obtained. History & Record Review Discussion w/independent historian: Patient and Family Lab Data Attestation: I reviewed the patient's lab results. Labs: Laboratory Results - last 24 hr 05/08/24 05/08/24 13:25 13:50 WBC 5.1 RBC 5.62 H Hgb 15.6 H Hct 49.5 H MCV 88.1 MCH 27.8 MCHC 31.5 L RDW Std Deviation 45.4 H RDW Coeff of [place] 14.3 Plt Count 237 MPV 10.3 Immature Gran % (Auto) 1.400 H Neut % (Auto) 92.5 H Lymph % (Auto) 4.3 L [place] % (Auto) 0.6 Eos % (Auto) 0.6 Baso % (Auto) 0.6 Absolute Neuts (auto) 4.7 Absolute Lymphs (auto) 0.22 L Nucleated RBC % 0 Differential Comment SCANNED Reactive Lymphocytes 1+ PT 15.2 H INR 1.2 APTT 25.0 Sodium 139 Potassium 4.2 Chloride 106 Carbon Dioxide 23.0 Anion Gap 10 BUN 42 H Creatinine 1.46 H Estim Creat Clear Calc 38.08 Est GFR (MDRD) Af Amer 45 L Est GFR (MDRD) Non-Af 37 L BUN/Creatinine Ratio 28.8 H Glucose 138 H Lactic Acid 1.9 Calcium 9.3 Total Bilirubin 0.80 AST 31 ALT 28 Alkaline Phosphatase 76 Troponin I High Sens 24 Total Protein 7.1 Albumin 3.5 Globulin 3.6 Albumin/Globulin Ratio 1.0 Urine Color Yellow Urine Clarity Sl. Cloudy Urine pH 6.0 Ur Specific [place] 1.010 Urine Protein 100 H Urine Glucose (UA) Normal Urine Ketones Negative Urine Occult Blood 50 H Urine Nitrite Negative Urine Bilirubin Negative Urine Urobilinogen Normal Ur Leukocyte Esterase Negative Urine RBC 0-5 SEEN Urine WBC 0 SEEN Ur Squamous Epith Cells 0-5 SEEN Urine Bacteria 0 SEEN Urine Mucus 0 SEEN Radiography Diagnostic Testing: Clinical Impression(s) from Imaging Studies Chest X-Ray 05/08/24 14:05 IMPRESSION: No radiographic evidence of acute cardiopulmonary disease. Electronically Signed: Roel Peter MD at 14:26 EDT , Abdomen/Pelvis CT 05/08/24 15:10 IMPRESSION: 1. Mild left hydronephrosis with extensive perinephric stranding likely due to 2 mm stone in the proximal left ureter. Superimposed pyelonephritis cannot be excluded. 2. Umbilical hernia containing small bowel loops without evidence of bowel obstruction. 3. Surgical anastomosis sutures in the mid transverse colon. Electronically Signed: Roel Peter MD at 15:40 EDT , EKG Initial EKG: Attestation: I personally reviewed and interpreted this EKG as follows: Comments: Normal sinus rhythm ventricular rate of 95 bpm <Dr. Zachary Davis MD - Last Filed: 05/08/24 16:17> [facility] Narrative Medical decision making narrative: Differential diagnosis is extremely broad. It would include but not limited to diverticulitis colitis bowel obstruction UTI/pyelonephritis viral syndrome postvaccination reaction anemia sepsis pneumonia White count 5.1 hemoglobin 15.6 platelet count is 237 PTT 15.2 INR 1.2 BUN of 42 creatinine 1.46 glucose 138 normal lactic acid of 1.9 troponin is 24 normal LFTs. Urinalysis was obtained which is a catheter specimen. This is negative for overt infection or gross hematuria. COVID influenza and RSV swabs were negative. My independent interpretation of the chest x-ray is chronic changes no acute findings. CT of the abdomen pelvis with IV contrast was obtained. Patient turned over to me from the prior physician. Her labs are unremarkable other than she is acute kidney injury with BUN 42 creatinine 1.46. Urine looks clean as is the chest x-ray. CT of her flank shows a left 2 mm UPJ stone with hydronephrosis. On repeat exam patient is doing well at 4:10 PM. She is feeling better. She is currently undergoing IV infusions of chemotherapy every 3 weeks for ovarian cancer. Given the stone with the obstruction cannot rule out pyelonephritis. She was started on IV Rocephin. I have the hospitalist on page for admission. Lab Data Lab results narrative: CBC shows white count of 5. H&H 15 and 49. Platelets 237. Electrolytes show gap 10. BUN 42 creatinine 1.46 consistent with acute kidney injury from prior labs. Glucose 138. Liver enzymes normal. UA was cloudy but no white or red cells. No bacteria or nitrites. CT flank study showed a 2 mm left UPJ stone with hydronephrosis and ureter. Labs: Laboratory Results - last 24 hr 05/08/24 05/08/24 13:25 13:50 WBC 5.1 RBC 5.62 H Hgb 15.6 H Hct 49.5 H MCV 88.1 MCH 27.8 MCHC 31.5 L RDW Std Deviation 45.4 H RDW Coeff of [place] 14.3 Plt Count 237 MPV 10.3 Immature Gran % (Auto) 1.400 H Neut % (Auto) 92.5 H Lymph % (Auto) 4.3 L [place] % (Auto) 0.6 Eos % (Auto) 0.6 Baso % (Auto) 0.6 Absolute Neuts (auto) 4.7 Absolute Lymphs (auto) 0.22 L Nucleated RBC % 0 Differential Comment SCANNED Reactive Lymphocytes 1+ PT 15.2 H INR 1.2 APTT 25.0 Sodium 139 Potassium 4.2 Chloride 106 Carbon Dioxide 23.0 Anion Gap 10 BUN 42 H Creatinine 1.46 H Estim Creat Clear Calc 38.08 Est GFR (MDRD) Af Amer 45 L Est GFR (MDRD) Non-Af 37 L BUN/Creatinine Ratio 28.8 H Glucose 138 H Lactic Acid 1.9 Calcium 9.3 Total Bilirubin 0.80 AST 31 ALT 28 Alkaline Phosphatase 76 Troponin I High Sens 24 Total Protein 7.1 Albumin 3.5 Globulin 3.6 Albumin/Globulin Ratio 1.0 Urine Color Yellow Urine Clarity Sl. Cloudy Urine pH 6.0 Ur Specific [place] 1.010 Urine Protein 100 H Urine Glucose (UA) Normal Urine Ketones Negative Urine Occult Blood 50 H Urine Nitrite Negative Urine Bilirubin Negative Urine Urobilinogen Normal Ur Leukocyte Esterase Negative Urine RBC 0-5 SEEN Urine WBC 0 SEEN Ur Squamous Epith Cells 0-5 SEEN Urine Bacteria 0 SEEN Urine Mucus 0 SEEN Radiography Diagnostic Testing: Clinical Impression(s) from Imaging Studies Chest X-Ray 05/08/24 14:05 IMPRESSION: No radiographic evidence of acute cardiopulmonary disease. Electronically Signed: Roel Peter MD at 14:26 EDT , Abdomen/Pelvis CT 05/08/24 15:10 IMPRESSION: 1. Mild left hydronephrosis with extensive perinephric stranding likely due to 2 mm stone in the proximal left ureter. Superimposed pyelonephritis cannot be excluded. 2. Umbilical hernia containing small bowel loops without evidence of bowel obstruction. 3. Surgical anastomosis sutures in the mid transverse colon. Electronically Signed: Roel Peter MD at 15:40 EDT , Discharge Plan Dx/Rx/DC Orders Clinical Impression: Acute left flank pain, Hydronephrosis concurrent with and due to calculi of kidney and ureter, History of ovarian cancer, History of cancer chemotherapy Disposition Disposition: [facility]
[2024-05-08 14:13] LABS: Color, Urine Yellow (Yellow); Glucose, Dipstick Normal (Normal); Ketone-Dipstick Negative (Negative); Leukocyte Esterase-Dipstick Negative /ul (Negative); Nitrite-Dipstick Negative (Negative); Occult Blood-Urine 50 /ul (Negative); Protein-Dipstick 100 mg/dl (Negative); Urine Bilirubin Dipstick Negative (Negative); Urine Clarity Sl. Cloudy (Clear); Urine Urobilinogen Normal (Normal)
[2024-05-08 14:20] LABS: Red Blood Cells-Urine 0-5 SEEN /hpf (0-5); Squamous Epithelial Cells - UA 0-5 SEEN /hpf (5-10)
[2024-05-08] MEDS: Ketorolac 15 MG/ML Vial IV (14:33)
--- NOTE | 2024-05-08 15:10 | CT_ITS ---
STUDY: CT ABDOMEN AND PELVIS WITH CONTRAST REASON FOR EXAM: Female, 78 years old. Left flank/back pain RADIATION DOSAGE (If Supplied By Facility): CTDIvol = ( 18.99 ) mGy, DLP = ( 2599.18 ) mGycm TECHNIQUE: IV 100mL Isovue-300 was administered. Transaxial images were obtained from the dome of the diaphragm to the symphysis pubis in the arterial, nephrographic and excretory phases. Multiplanar coronal and sagittal images were reformatted. The protocol utilizes one or more of the following dose reduction techniques: automated exposure control, adjustment of mA and/or kV according to patient size,and/or use of iterative reconstruction technique. COMPARISON: No relevant prior comparison study available FINDINGS: The visualized lung bases are unremarkable. Normal heart size. Calcifications of the mitral annulus. Coronary calcifications. Calcifications of the aortic root. Normal liver. Normal gallbladder and extrahepatic biliary system. Normal spleen. Normal pancreas. Normal bilateral adrenal glands. Bilateral small renal cysts appears to be simple and no further follow-up exam is needed, the largest measures about 2 cm. Left intrarenal cyst. Mild prominence of the left pelvicalyceal system. Left perinephric stranding extending to the left ureteropelvic junction and proximal ureter likely due to 2 mm stone in the proximal left ureter. Superimposed pyelonephritis cannot be excluded. No evidence of right hydronephrosis. Normal visualized stomach. Normal in caliber small bowel loops. Medical hernia containing small bowel loops without evidence of obstruction. Surgical anastomosis sutures in the mid transverse colon. The ascending colon is collapsed. There is non-visualization of the appendix. There is diffuse atherosclerotic calcification of the abdominal aorta, without a demonstrated aneurysm. No retroperitoneal adenopathy. Normal urinary bladder. There is absence of the uterus consistent with a prior hysterectomy. Degenerative changes in the lower lumbar spine. Grade 1 anterolisthesis of L4 over L5. CT/Abdomen/Pelvis W IV Cont ONLY IMPRESSION: 1. Mild left hydronephrosis with extensive perinephric stranding likely due to 2 mm stone in the proximal left ureter. Superimposed pyelonephritis cannot be excluded. 2. Umbilical hernia containing small bowel loops without evidence of bowel obstruction. 3. Surgical anastomosis sutures in the mid transverse colon. Electronically Signed: Roel Peter MD at 15:40 EDT ,
--- NOTE | 2024-05-08 16:29 | PCM.HP.STD ---
HPI - General General Date of Admission: 05/08/24 Date of Service: 05/08/24 Chief Complaint: Left flank pain since yesterday evening HPI Narrative ANDREW VELAZQUEZ, is a 78 F came to ED with intermittent left flank pain that started last evening. Yesterday she had a flu shot and felt like some chills. Her symptoms got worse today with more feeling chills with shivering left flank pain and dry heaving. She denies acute Loritax symptoms including burning micturition, frequency but has chronic urinary incontinence and urgency. She is also on Avastin for ovarian cancer. Patient denies recent history of UTI or pyelonephritis or kidney stone in the past In ED, vitals reviewed. No fever. BP was high 180/83 but no tachycardia. No hypoxia or tachypnea. Patient has mild chronic cough with no change in frequency or severity [facility]LY [facility] Medical History Depression Diabetes Kidney stones Non-smoker CPAP (continuous positive airway pressure) dependence Congestive heart failure (CHF) Myocardial infarct OAB (overactive bladder) Atypical chest pain Urinary frequency Breast cancer screening Grief reaction Non-rheumatic tricuspid valve insufficiency Non-rheumatic mitral regurgitation History of cardioversion (~06/28/22) Chronic atrial fibrillation with RVR Obstructive sleep apnea Chronic obstructive pulmonary disease Depression Preop cardiovascular exam Port-A-Cath in place Ovarian cancer Pelvic mass Ascites Diarrhea Abdominal pain Flu vaccine need Vitamin D deficiency Essential hypertension Diastolic congestive heart failure Atherosclerotic heart disease of [place] coronary artery without angina pectoris Long-term use of high-risk medication SOB (shortness of breath) Pulmonary HTN Panic disorder Hiatal hernia Debility Paroxysmal atrial fibrillation with rapid ventricular response Streptococcal pneumonia Acute exacerbation of chronic obstructive pulmonary disease (COPD) Acute respiratory failure with hypoxia and hypercarbia NSTEMI (non-ST elevated myocardial infarction) Sepsis Junctional rhythm Spastic colon Morbid obesity PAF (paroxysmal atrial fibrillation) HLD (hyperlipidemia) CAD (coronary artery disease) Anxiety DM2 (diabetes mellitus, type 2) Hypokalemia Home Medications ?Medication ?Instructions ?Recorded ?Last Taken ?Type compress.stocking,knee,reg,lrg #2 ea 05/06/19 Unknown Rx lancing device #1 ea 12/29/20 Unknown Rx docusate sodium 100 mg capsule 100 mg PO BID PRN Constipation 10/12/22 Unknown History (Colace) albuterol sulfate 90 mcg/actuation 1 inh inhalation ONCE PRN SOB 05/23/22 Unknown History aerosol inhaler (Ventolin HFA) loperamide 2 mg tablet 2 mg PO Q6H PRN Diarrhea 06/27/22 Unknown History multivitamin 1 tab PO DAILY 11/25/22 Unknown History furosemide 40 mg tablet 20 mg PO PRN SWELLING 02/22/23 Unknown History hydrochlorothiazide 25 mg tablet 25 mg PO DAILY #90 tabs 03/29/23 Unknown Rx ibandronate 150 mg tablet 150 mg PO QMONTH #14 tabs 06/09/23 Unknown Rx spironolactone 25 mg tablet 25 mg PO DAILY #90 tabs 10/06/23 Unknown Rx doxazosin 2 mg tablet 2 mg PO QHS #30 tabs 10/23/23 Unknown Rx bevacizumab 25 mg/mL intravenous mg intravitreal MONTHLY CHEMO 11/24/23 Unknown History solution (Avastin) buspirone 10 mg tablet 20 mg (2 x 10 mg) PO TID 3 months 12/13/23 Unknown Rx #540 TABLETS fluticasone 500 mcg-salmeterol 50 1 inh inhalation BID #3 ea 02/01/24 Unknown Rx mcg/dose blistr powdr for inhalation (Wixela Inhub) ezetimibe 10 mg tablet (Zetia) 10 mg PO QDAY cholesterol #90 tabs 02/06/24 Unknown Rx amlodipine 5 mg tablet 5 mg PO BID #180 tabs 02/21/24 Unknown Rx pantoprazole 40 mg tablet,delayed 40 mg PO BID GERD #180 tabs 03/12/24 Unknown Rx release magnesium oxide 400 mg PO DAILY supplement 03/22/24 Unknown History metformin 500 mg tablet 500 mg PO BID #180 tabs 03/29/24 Unknown Rx sotalol 120 mg tablet 120 mg PO DAILY heart #180 tabs 04/10/24 Unknown Rx oxybutynin chloride 10 mg 10 mg PO DAILY #90 tabs 04/15/24 Unknown Rx tablet,extended release 24 hr apixaban 5 mg tablet (Eliquis) 5 mg PO BID #180 tabs 04/22/24 Unknown Rx fenofibrate micronized 134 mg 134 mg PO QPM #90 caps 04/25/24 Unknown Rx capsule lisinopril 20 mg tablet 20 mg PO BID #200 TABLETS 04/30/24 Unknown Rx cholecalciferol (vitamin D3) 1,250 50,000 unit PO FR supplement 05/08/24 Unknown History mcg (50,000 unit) tablet duloxetine 60 mg capsule,delayed 60 mg PO DAILY #90 caps 05/08/24 Unknown Rx release lorazepam 0.5 mg tablet (Ativan) 0.5 mg PO BID PRN Anxiety #30 tabs 05/08/24 Unknown Rx Allergy/AdvReac Type Severity Reaction Status Date / Time amoxicillin Allergy Severe hives Verified 05/08/24 12:53 chlorhexidine Allergy Unknown red skin Verified 05/08/24 12:53 morphine Allergy Unknown headaches Verified 05/08/24 12:53 labetalol Allergy Unknown Verified 05/08/24 12:53 pitavastatin (From Livalo) Allergy Other Verified 05/08/24 12:53 simvastatin (From Zocor) Allergy Other Verified 05/08/24 12:53 atorvastatin (From Lipitor) AdvReac Unknown myalgias Verified 05/08/24 12:53 budesonide (From Symbicort) AdvReac Other Verified 05/08/24 12:53 formoterol (From Symbicort) AdvReac Other Verified 05/08/24 12:53 hydrocodone (From Vicodin) AdvReac Other Verified 05/08/24 12:53 Myuptfy-YCW-YrQ Reductase AdvReac Other Verified 05/08/24 12:53 Inhibitor (Fqgnvyo-Toq-Wnw Reductase Inhibitor) Family History Mother Cancer leukemia Father Respiratory disease Grandfather Myocardial infarction Grandmother Myocardial infarction Son Diabetes Surgical History Hx of prior ablation treatment Status post catheter ablation of atrial fibrillation History of hysterectomy History of exploratory laparotomy History of cataract surgery History of tonsillectomy and adenoidectomy History of surgery on right wrist History of colonoscopy Social History household members: spouse and children Smoking Status: Never smoker alcohol intake: never substance use type: does not use caffeine: Yes Type: coffee Number of servings: 1 what type of physical activity do you participate in: none seatbelt use: always do you feel safe at home: Yes ROS ROS Narrative Constitutional: Reports fatigue and weakness. No fever. Severe chills and shivering HEENT: Reports systems reviewed and no addt'l complaints, except as documented Respiratory/Chest: Mild chronic cough. No acute shortness of breath or respiratory distress or wheezing. CVS: No chest pain or tightness Gastrointestinal: Denies coffee ground emesis, hematemesis or vomiting Genitourinary: Left flank pain. Denies burning urination or new urinary tract symptoms Musculoskeletal: Denies acute joint pain or limited range of motion. No acute injury Neurologic: Denies seizure-like symptoms. skin: No ulcer. No rash Endocrinology: Reports systems reviewed and no addt'l complaints, except as documented Hematologic/Lymphatic: Reports systems reviewed and no addt'l complaints, except as documented Rest 14 ROS are negative except as mentioned in HPI Vital Signs Vital Signs Vital Signs: 05/08/24 12:42 05/08/24 12:48 05/08/24 13:48 Temperature 98 F 98 F 98 F Temperature Source Oral Oral Oral Pulse Rate 78 94 96 Respiratory Rate 19 H 23 H 36 H Blood Pressure 180/83 H 180/83 H 174/71 H Blood Pressure Mean 115 115 105 Pulse Ox 91 92 Oxygen Delivery Method Room Air Venturi Mask Oxygen Flow Rate (L/min) 2 05/08/24 13:57 05/08/24 14:00 05/08/24 15:00 Temperature 98 F 98 F Temperature Source Oral Oral Pulse Rate 95 86 Respiratory Rate 35 H 30 H Blood Pressure 160/65 H 134/58 H Blood Pressure Mean 96 83 Pulse Ox 93 95 Oxygen Delivery Method Nasal Cannula Nasal Cannula Nasal Cannula Oxygen Flow Rate (L/min) 2 2 2 05/08/24 16:00 Temperature 98 F Temperature Source Oral Pulse Rate 86 Respiratory Rate 25 H Blood Pressure 129/54 H Blood Pressure Mean 79 Pulse Ox 96 Oxygen Delivery Method Nasal Cannula Oxygen Flow Rate (L/min) 2 Weight Weight: 239 lb 13.807 oz Body Mass Index (BMI) 43.8 Physical Exam Narrative General: Alert, Oriented x3, Cooperative, feeling cold and shivering HEENT: Atraumatic, PERRLA, EOMI, Normocephalic Oral: Oral mucosa dry no Gingival or Mucosal Lesions/ Ulcerations Neck: Supple, No JVD, Negative Carotid Bruits Chest wall/Lungs: Air entry diminished in bilateral lung bases. No crepitation/rhonchi Cardiovascular: Regular rate, Regular Rhythm, Normal S1, Normal S2, no murmur gallop or rub. Abdomen: Bowel Sounds Present, Soft, Non-Distended : Mild tenderness on left renal angle/flank. No dysuria. No suprapubic tenderness. Extremities: No edema, Capillary Refill Less than 3 Seconds Skin: No rashes, No breakdown Musculoskeletal: No Tenderness to Palpation of Joints or Extremities Neurological: Cranial nerves II-XII grossly intact, DTR 2+/4. No acute focal neurological deficit. Psych/Mental Status: Flat affect. Results Lab / Micro Data 05/08/24 13:25 05/08/24 13:25 Labs: Laboratory Results - last 24 hr 05/08/24 13:25: WBC 5.1, RBC 5.62 H, Hgb 15.6 H, Hct 49.5 H, MCV 88.1, MCH 27.8, MCHC 31.5 L, RDW Std Deviation 45.4 H, RDW Coeff of [place]abor 14.3, Plt Count 237, MPV 10.3, Immature Gran % (Auto) 1.400 H, Neut % (Auto) 92.5 H, Lymph % (Auto) 4.3 L, Dyer % (Auto) 0.6, Eos % (Auto) 0.6, Baso % (Auto) 0.6, Absolute Neuts (auto) 4.7, Absolute Lymphs (auto) 0.22 L, Nucleated RBC % 0, Differential Comment SCANNED, Reactive Lymphocytes 1+, PT 15.2 H, INR 1.2, APTT 25.0, Sodium 139, Potassium 4.2, Chloride 106, Carbon Dioxide 23.0, Anion Gap 10, BUN 42 H, Creatinine 1.46 H, Estim Creat Clear Calc 38.08, Est GFR (MDRD) Af Amer 45 L, Est GFR (MDRD) Non-Af 37 L, BUN/Creatinine Ratio 28.8 H, Glucose 138 H, Lactic Acid 1.9, Calcium 9.3, Total Bilirubin 0.80, AST 31, ALT 28, Alkaline Phosphatase 76, Troponin I High Sens 24, Total Protein 7.1, Albumin 3.5, Globulin 3.6, Albumin/Globulin Ratio 1.0 05/08/24 13:50: Urine Color Yellow, Urine Clarity Sl. Cloudy, Urine pH 6.0, Ur Specific [place] 1.010, Urine Protein 100 H, Urine Glucose (UA) Normal, Urine Ketones Negative, Urine Occult Blood 50 H, Urine Nitrite Negative, Urine Bilirubin Negative, Urine Urobilinogen Normal, Ur Leukocyte Esterase Negative, Urine RBC 0-5 SEEN, Urine WBC 0 SEEN, Ur Squamous Epith Cells 0-5 SEEN, Urine Bacteria 0 SEEN, Urine Mucus 0 SEEN Micro: Microbiology 05/08/24 13:25 Mucosa - Nose SARS-CoV-2, Influenza & RSV (PCR) - Final Imaging Radiology Impression Chest X-Ray 05/08/24 14:05 IMPRESSION: No radiographic evidence of acute cardiopulmonary disease. Electronically Signed: Roel Peter MD at 14:26 EDT , Abdomen/Pelvis CT 05/08/24 15:10 IMPRESSION: 1. Mild left hydronephrosis with extensive perinephric stranding likely due to 2 mm stone in the proximal left ureter. Superimposed pyelonephritis cannot be excluded. 2. Umbilical hernia containing small bowel loops without evidence of bowel obstruction. 3. Surgical anastomosis sutures in the mid transverse colon. Electronically Signed: Roel Peter MD at 15:40 EDT , Assessment & Plan Assessment/Plan (1) Acute left flank pain: PLAN: Plan This is a 28-year-old female is being admitted for left flank pain, chills and found to have left pyelonephritis with mild left hydronephrosis. 1. Acute left-sided pyelonephritis with mild left hydronephrosis due to 2 mm stone in proximal left ureter: Patient is being admitted [facility] floor. Abdomen/pelvis CT done in ED individually reviewed and shows 2 mm stone in the proximal left ureter with extensive perinephric stranding and mild left hydronephrosis. Clinically to monitor stone should pass. Blood culture, urine culture ordered in the ED. Patient started on IV ceftriaxone and IV fluid. No leukocytosis. 2. ROSANA on CKD stage III with: BUNs/creatinine elevated 42/1.46. Last BUN/creatinine 26/1.03. On IV fluid normal saline. Monitor kidney function. Electrolytes are in normal range 3. CAD, chronic HFpEF and paroxysmal A-fib: Twelve-lead EKG done in ED initially reviewed and shows NSR 95 beats minute, QTc 457 ms. Last echo in June 2023 shows EF 60% with severely enlarged left atrium. Continue Xarelto 20 mg daily and sotalol 120 mg twice daily 4. Hypertension and dyslipidemia: BP was high in ED but the most recent is 129/54. On fenofibrate and Zetia, hold traders patient having dry heaving. But resume when symptoms of nausea subside. 5. Ovarian cancer: Follows Dr. Castro. She is on Avastin. 6. COPD/obstructive sleep apnea: She is on Pap therapy. Has mild chronic cough with no change in severity or frequency. Continue Breo Ellipta. 7. DM type II: Hold metformin. Glucose 138 in BMP. Accu-Chek before meals and at bedtime with Humalog sliding scale coverage and hypoglycemia protocol. 8. Anxiety depression and osteoporosis: Hold alendronate. Living will/advanced directive/end of life care: Patient does not have living will or advanced directive. Her daughter is power of cork tile floor layer for health. After discussion of benefits/risks procedures involved with full code, DNR CC arrest and DNR CC, the patient opted for full code. Patient does want artificial life support including intubation, tube feed, ventilator and/chest compression, central venous catheter, vasopressor and DC shock if needed Total time spent in [id number] encounter in discussion of advanced directive 17 minutes. Microbiology Past 72 Hours 05/08/24 13:25 Mucosa - Nose SARS-CoV-2, Influenza & RSV (PCR) - Final Laboratory Results 05/08/24 13:25: WBC 5.1, RBC 5.62 H, Hgb 15.6 H, Hct 49.5 H, MCV 88.1, MCH 27.8, MCHC 31.5 L, RDW Std Deviation 45.4 H, RDW Coeff of [place] 14.3, Plt Count 237, MPV 10.3, Immature Gran % (Auto) 1.400 H, Neut % (Auto) 92.5 H, Lymph % (Auto) 4.3 L, Dyer % (Auto) 0.6, Eos % (Auto) 0.6, Baso % (Auto) 0.6, Absolute Neuts (auto) 4.7, Absolute Lymphs (auto) 0.22 L, Nucleated RBC % 0, Differential Comment SCANNED, Reactive Lymphocytes 1+, PT 15.2 H, INR 1.2, APTT 25.0, Sodium 139, Potassium 4.2, Chloride 106, Carbon Dioxide 23.0, Anion Gap 10, BUN 42 H, Creatinine 1.46 H, Estim Creat Clear Calc 38.08, Est GFR (MDRD) Af Amer 45 L, Est GFR (MDRD) Non-Af 37 L, BUN/Creatinine Ratio 28.8 H, Glucose 138 H, Lactic Acid 1.9, Calcium 9.3, Total Bilirubin 0.80, AST 31, ALT 28, Alkaline Phosphatase 76, Troponin I High Sens 24, Total Protein 7.1, Albumin 3.5, Globulin 3.6, Albumin/Globulin Ratio 1.0 05/08/24 13:50: Urine Color Yellow, Urine Clarity Sl. Cloudy, Urine pH 6.0, Ur Specific [place] 1.010, Urine Protein 100 H, Urine Glucose (UA) Normal, Urine Ketones Negative, Urine Occult Blood 50 H, Urine Nitrite Negative, Urine Bilirubin Negative, Urine Urobilinogen Normal, Ur Leukocyte Esterase Negative, Urine RBC 0-5 SEEN, Urine WBC 0 SEEN, Ur Squamous Epith Cells 0-5 SEEN, Urine Bacteria 0 SEEN, Urine Mucus 0 SEEN Clinical Impression(s) from Imaging Studies Chest X-Ray 05/08/24 14:05 IMPRESSION: No radiographic evidence of acute cardiopulmonary disease. Electronically Signed: Roel Peter MD at 14:26 EDT , Abdomen/Pelvis CT 05/08/24 15:10
[2024-05-08] MEDS: Ceftriaxone 1 GM/50 ML BAG IV (16:58)
[2024-05-08] MEDS: Morphine 2 MG/ML Syringe IV (18:43)
--- NOTE | 2024-05-08 20:03 | CT_ITS ---
EXAM: CT HEAD WITHOUT INTRAVENOUS CONTRAST CLINICAL INDICATION: change in mental status TECHNIQUE: Multiple axial images were obtained of the head without intravenous contrast. This CT exam was performed using one or more of the following dose reduction techniques: automated exposure control, adjustment of the mA and/or kV according to patient size, and/or use of iterative reconstruction technique. COMPARISON: No relevant prior studies available. FINDINGS: BRAIN AND EXTRA-AXIAL SPACES: See below. BONES/JOINTS: Mild bilateral TMJ arthrosis. There is non-specific periventricular hypoattenuation which is most commonly related to chronic microvascular ischemic disease in a patient of this age. There is no mass, mass-effect, or shift of the midline structures. No evidence of acute infarct or acute intracranial hemorrhage. There is no evidence of pathologic extra-axial fluid. There is no hydrocephalus. Patent basal cisterns. VASCULATURE: Arteriosclerosis. SINUSES: No significant findings. MASTOID AIR CELLS: No significant effusion. ORBITS: Bilateral ocular lens extraction presumptively for the treatment of cataracts. Otherwise, no acute orbital pathology. CT/Brain/Head without Contrast IMPRESSION: Chronic microvascular ischemic changes. No CT evidence of acute intracranial pathology. Electronically Signed: Jad Howard DO at 20:36 EDT ,
[2024-05-08 20:12] LABS: Allen Test Positive; Base Excess -9 mmol/L (-2 to +2); Bicarbonate 17.7 mmol/L (22-26); Blood Gas Specimen Type ART; Mode Not entered; O2 Delivery Device NRB; PO2 170 mmHG (75-100); SITE L Radial; SO2 99 % (95-99); Total Carbon Dioxide 19 mmol/L; pH 7.27 (7.35-7.45)
[2024-05-08 20:30] LABS: International Normalized Ratio 1.5; Partial Thromboplast Time 33.1 Seconds (24.1-36.2); Prothrombin Time (Protime)PT. 17.6 SECONDS (11.7-14.9)
[2024-05-08 20:43] LABS: Phosphorus 3.3 mg/dL (2.5-4.9)
[2024-05-08 20:52] LABS: Magnesium 1.1 mg/dL (1.6-2.6); Troponin-I HS 424 pg/mL (3.0-54.0)
--- NOTE | 2024-05-08 20:55 | RAD_ITS ---
EXAM: XR CHEST, 1 VIEW CLINICAL INDICATION: ETT placement TECHNIQUE: Frontal view of the chest. COMPARISON: Chest radiograph earlier on the same date FINDINGS: LUNGS AND PLEURAL SPACES: Hyperinflated lungs without focal airspace disease perhaps secondary to COPD. No pneumothorax. No effusion. HEART: Borderline enlargement of the cardiac silhouette perhaps indicative of cardiomegaly rather than pericardial effusion. MEDIASTINUM: Central airways and mediastinal contour are unremarkable. BONES/JOINTS: No significant abnormality. No acute fracture. SOFT TISSUES: No significant abnormality. VASCULATURE: Atherosclerosis. TUBES, LINES AND DEVICES: Endotracheal tube is well-positioned, 3.2 cm above the [place]. Enteric tube extends below the GE junction. Right side chest port appears well-positioned. RAD/Chest 1 View (Portable) IMPRESSION: 1. Borderline enlargement of the cardiac silhouette perhaps indicative of cardiomegaly rather than pericardial effusion. 2. Endotracheal tube is well-positioned, 3.2 cm above the [place]. Other tubes and lines as above. 3. Hyperinflated lungs without focal airspace disease perhaps secondary to COPD. Electronically Signed: Jad Howard DO at 21:25 EDT ,
--- NOTE | 2024-05-08 20:55 | RAD_ITS ---
EXAM: XR ABDOMEN, 1 VIEW CLINICAL INDICATION: Confirm OG placement -- Prior to admin of any med,fluid,flush,enteral feed TECHNIQUE: Frontal supine view of the abdomen/pelvis. COMPARISON: Chest radiograph on the same date. FINDINGS: GASTROINTESTINAL TRACT: No evidence of bowel obstruction insofar seen. ORGANS: No distinct abnormality. BONES/JOINTS: No definite acute pathology. SOFT TISSUES: No definite acute pathology. TUBES, LINES AND DEVICES: Enteric tube tip is well below the level of the GE junction. RAD/Abdomen Single View (Portable) IMPRESSION: Enteric tube tip is well below the level of the GE junction. Otherwise, the examination is limited due to technique and patient body habitus. Electronically Signed: Jad Howard DO at 21:24 EDT ,
[2024-05-08] MEDS: Etomidate 20 MG/10 ML Vial IV (21:00)
[2024-05-08] MEDS: Propofol 10MG/Ml 1,000 MG/100 ML Bottle 6.1 MG CONT INF (21:00)
[2024-05-08] MEDS: Midazolam 2 MG/2 ML Syringe 4 MG IV (21:00)
--- NOTE | 2024-05-08 21:00 | NURSING ---
Code blue called by MS staff on MS3 for lethargy, bradycardia, and staff concern for deterioration. Pt was very lethargic and would not respond to voice except for some moaning at times. Dr. Snyder to bedside to assess patient. Orders given for lab work and decision made to take to CT d/t pupil asymmetry and decreased LOC. This RN, primary RN, and Dr. Snyder took pt down for brain CT. After CT, pt transferred to ICU d/t MD concern regarding airway protection. 2042: 20 mg etomidate IVP x1 given, followed by 4 mg versed IVP x1. 2043: 100 mg succinylcholine IVP x1 given. 2046: Pt intubated w/ #7.5 ETT, 22 @ lip; bilateral breath sounds and positive color change noted. 2049: OG placed and orders placed for CXR/KUB for placement verification.
--- NOTE | 2024-05-08 21:01 | PN.HOSP_ITS ---
Hospitalist Note INITIALLY CALLED CODE BLUE->TRANSITIONED TO RAPID 7:55 PM Initially called as a CODE BLUE however patient always had a pulse and was breathing, transition to a rapid. Nursing staff noted patient was unresponsive and not interacting. Examination with minimally responsive status, eyes open, staring off, moaning intermittently, asymmetric pupils and family believes it was chronic but could not discern. Blood sugar was appropriate, vital signs not severe appearing. Patient transition to CT scanner to be cautious stat with CT of the head with no acute intracranial findings preliminarily and confirmed on final radiology read. Requested CBC, CMP, coags, mag, Phos given history of recent chemotherapy, troponin, lactic acid repeat, ammonia and ABG. ABG obtained and not marked appearing more metabolic. Patient ammonia level normal. Troponin repeat greater in the 400 range and was previously normal. Given patient's status and belly breathing with unresponsive presentation and concern for airway decision for intubation with transition to the ICU following CT of the head. Discussed these findings and concerns and plan of care with family to which they are amenable. Will initiate 30 cc/kg IV fluid bolus given concern for sepsis as etiology for this current presentation, broadened antibiotic therapy per order set to meropenem, intubated and sedated, echocardiogram requested, magnesium as noted pending, FLP in AM, will administer 300 mg aspirin MA and follow with daily 81 mg, holding Eliquis with transition this evening to heparin drip as has not had her evening dose per discussion with nursing staff and family. Will hold off on any immediate cardiology involvement to suspect this is likely demand but low threshold to involve. Grades 7 8 Tutor consultation also requested. Intubation Note: Patient with evidence of respiratory and/or impending distress. Medications administered: Etomidate, Versed and succinylcholine. ETT size: 8 initially tried however difficult and transition to 7.5 with successful intubation following Patient intubated in standard fashion with visualization of the vocal cords and passage of the ETT. Positioning verified with auscultation. Initially had tried 8 however difficulty passing through the vocal cords because of size with mental transition to 7.5. Post-intubation CXR requested and pending. Continue plan of care as noted above. Procedures Hospitalists Procedures: 17005 Insert Emergency Airway
--- NOTE | 2024-05-08 21:04 | ECHOCS_ITS ---
Reason For Study: CORONARY ARTERY DISEASE Procedure This was a 2D Doppler, Color Flow transthoracic echocardiogram. The study was technically difficult. Patient was scanned in supine position during reflux assessment. Contrast injection was performed. Patient was on ventillator during exam. Exam performed portable in ICU/CCU. Left Ventricle Normal LV size. The estimated ejection fraction is 65 %. Unable to assess diastolic dysfunction. No regional wall motion abnormalities noted. Right Ventricle Normal RV size. Normal systolic function. Atria The left atrium is moderately enlarged. Normal right atrium. No doppler evidence for ASD. Mitral Valve There is moderate mitral annular calcification. There is no mitral valve stenosis. Trivial mitral valve insufficiency. Tricuspid Valve There is no tricuspid stenosis. Trivial tricuspid valve insufficiency. Pulmonary artery systolic pressure is 30 mmHg. Aortic Valve Trisinus/trileaflet aortic valve. There is no aortic stenosis. No aortic valve insufficiency. Pulmonic Valve There is no pulmonic valvular stenosis. Trivial pulmonic valve insufficiency. Great Vessels Normal aortic root. Pericardium/Pleural No pericardial effusion. Medication Diluted definity 1ml given slow IV push to enhance endocardial definition. MMode/2D Measurements & Calculations LVIDd: 3.8 cm IVSd: 1.5 cm LVOT diam: 1.9 cm LVIDs: 2.1 cm LVPWd: 1.2 cm RVDd: 4.2 cm FS: 43.5 % LVOT area: 2.9 cm2 asc Aorta Diam: 3.1 cm LAV(MOD-bp): 70.4 ml LVAd ap4: 21.2 cm2 LAV(MOD-bp) Indexed: 33.6 ml/m2 LVLd ap4: 6.9 cm LAV(MOD-sp2): 59.1 ml EDV(MOD-sp4): 54.7 ml LAV(MOD-sp4): 71.8 ml EDV(sp4-el): 55.4 ml LVAs ap4: 13.8 cm2 LVLs ap4: 6.5 cm ESV(MOD-sp4): 24.1 ml ESV(sp4-el): 24.9 ml EF(MOD-sp4): 56.0 % EF(sp4-el): 55.1 % LVAd ap2: 24.1 cm2 SV(MOD-sp4): 30.6 ml SV(MOD-sp2): 34.5 ml LVLd ap2: 7.1 cm EDV(MOD-sp2): 66.5 ml EDV(sp2-el): 68.9 ml LVAs ap2: 16.0 cm2 LVLs ap2: 6.7 cm ESV(MOD-sp2): 32.0 ml ESV(sp2-el): 32.1 ml EF(MOD-sp2): 51.9 % SV(sp4-el): 30.5 ml Ao sinus diam: 2.[address] Junction: 2.1 cm LA dimension(2D): 5.1 cm LA A4 area: 24.0 cm2 RA A4 area: 24.1 cm2 TAPSE: 1.3 cm Time Measurements MV dec time: 0.18 sec Doppler Measurements & Calculations MV E max nick: 88.1 cm/sec Lat Peak E' Nick: 8.7 cm/sec Med Peak E' Nick: 8.6 cm/sec E/E' lat: 10.1 E/E' med: 10.2 Ao V2 max: 103.4 cm/sec LV V1 max: 52.4 cm/sec SV(LVOT): 23.7 ml Ao max P.3 mmHg LV V1 max P.1 mmHg Ao V2 mean: 78.4 cm/sec LV V1 mean P.63 mmHg Ao mean P.6 mmHg LV V1 mean: 37.7 cm/sec Ao V2 VTI: 13.9 cm LV V1 VTI: 8.1 cm AV (velocity ratio): 0.58 SINDHU(I,D): 1.7 cm2 SINDHU(V,D): 1.5 cm2 PA V2 max: 61.9 cm/sec TR max nick: 250.5 cm/sec PA max PG (full): 0.65 mmHg TR max P.1 mmHg ECHO/Echo Complete W/ Contrast Interpretation Summary The estimated ejection fraction is 65 %. Unable to assess diastolic dysfunction. The left atrium is moderately enlarged. Trivial mitral valve insufficiency. Ordering Physician: Elen Snyder Referring Physician: Quique Mims Performed By: Laurence Dawson RDCS
[2024-05-08] MEDS: Acetaminophen 325 MG Tablet 650 MG PO (21:27)
[2024-05-08] MEDS: 0.9% Saline Lock 10 ML Syringe IV (21:27)
[2024-05-08] MEDS: Lactated Ringers 1,000 ML 999 ML IV ×3 (21:39→22:47)
[2024-05-08] MEDS: Succinylcholine Chloride 200 MG/10 ML SYRINGE 100 MG IV (21:41)
[2024-05-08] MEDS: fentaNYL drip 100 ML 5 MCG CONT INF (21:50)
[2024-05-08] MEDS: HEPARIN/D5w 25,000 UNITS 25,000 UNITS/250 ML IV.SOLN. 10 UNITS CONT INF (21:55)
[2024-05-08] MEDS: Meropenem 1 GM in 0.9% Normal Saline (100mL MB+) 100 ML IV (22:01)
[2024-05-08 22:06] LABS: CPK Total, Creatine Kinase 77 U/L (26-192); Triglycerides 189 mg/dL
--- NOTE | 2024-05-08 22:14 | CON.PCM.CC_ITS ---
HPI Consult Data Date of Consult: 05/08/24 HPI Narrative Reason for Consultation: septic shock, respiratory failure, encephalopathy HPI Narrative: 78Y F PMH including but not limited to DM, Afib on Eliquis, HFpEF, ovarian cancer on Avastin & morbid obesity who presented earlier today with intermittent left flank pain that started last evening with progressive worsening a/w fevers/chills and dry heaving. ROS + chronic urinary incontinence and urgency. CT notable for mild hydronephrosis with a likely 2mm stone in the prox Lt ureter and perinephric stranding with possible superimposed pyelonephritis. She was admitted to med-surg for treatment of UTI & mild hydronephrosis but became unresponsive. 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 Pupils noted to be irregular sized but per family this may not be an acute finding. Initial head CT unremarkable. She received 3L fluid bolus and Abx broadened to meropenem. Pulmonary/critical care consulted for on-going management of her acute issues. Prop @ 5 Fent @ 50 Hep gtt 12 450 5 30 PFSH Medical History Depression Diabetes Kidney stones Non-smoker CPAP (continuous positive airway pressure) dependence Congestive heart failure (CHF) Myocardial infarct OAB (overactive bladder) Atypical chest pain Urinary frequency Breast cancer screening Grief reaction Non-rheumatic tricuspid valve insufficiency Non-rheumatic mitral regurgitation History of cardioversion (~06/28/22) Chronic atrial fibrillation with RVR Obstructive sleep apnea Chronic obstructive pulmonary disease Depression Preop cardiovascular exam Port-A-Cath in place Ovarian cancer Pelvic mass Ascites Diarrhea Abdominal pain Flu vaccine need Vitamin D deficiency Essential hypertension Diastolic congestive heart failure Atherosclerotic heart disease of [place] coronary artery without angina pectoris Long-term use of high-risk medication SOB (shortness of breath) Pulmonary HTN Panic disorder Hiatal hernia Debility Paroxysmal atrial fibrillation with rapid ventricular response Streptococcal pneumonia Acute exacerbation of chronic obstructive pulmonary disease (COPD) Acute respiratory failure with hypoxia and hypercarbia NSTEMI (non-ST elevated myocardial infarction) Sepsis Junctional rhythm Spastic colon Morbid obesity PAF (paroxysmal atrial fibrillation) HLD (hyperlipidemia) CAD (coronary artery disease) Anxiety DM2 (diabetes mellitus, type 2) Hypokalemia Home Medications ?Medication ?Instructions ?Recorded ?Last Taken ?Type compress.stocking,knee,reg,lrg #2 ea 05/06/19 Unknown Rx lancing device #1 ea 12/29/20 Unknown Rx docusate sodium 100 mg capsule 100 mg PO BID PRN Constipation 05/04/22 Unknown History (Colace) albuterol sulfate 90 mcg/actuation 1 inh inhalation ONCE PRN SOB 05/23/22 Unknown History aerosol inhaler (Ventolin HFA) loperamide 2 mg tablet 2 mg PO Q6H PRN Diarrhea 06/27/22 Unknown History multivitamin 1 tab PO DAILY 11/25/22 Unknown History furosemide 40 mg tablet 20 mg PO PRN SWELLING 02/22/23 Unknown History hydrochlorothiazide 25 mg tablet 25 mg PO DAILY #90 tabs 03/29/23 Unknown Rx ibandronate 150 mg tablet 150 mg PO QMONTH #14 tabs 06/09/23 Unknown Rx spironolactone 25 mg tablet 25 mg PO DAILY #90 tabs 10/06/23 Unknown Rx doxazosin 2 mg tablet 2 mg PO QHS #30 tabs 10/23/23 Unknown Rx bevacizumab 25 mg/mL intravenous mg intravitreal MONTHLY CHEMO 11/24/23 Unknown History solution (Avastin) buspirone 10 mg tablet 20 mg (2 x 10 mg) PO TID 3 months 12/13/23 Unknown Rx #540 TABLETS fluticasone 500 mcg-salmeterol 50 1 inh inhalation BID #3 ea 02/01/24 Unknown Rx mcg/dose blistr powdr for inhalation (Wixela Inhub) ezetimibe 10 mg tablet (Zetia) 10 mg PO QDAY cholesterol #90 tabs 02/06/24 Unknown Rx amlodipine 5 mg tablet 5 mg PO BID #180 tabs 02/21/24 Unknown Rx pantoprazole 40 mg tablet,delayed 40 mg PO BID GERD #180 tabs 03/12/24 Unknown Rx release magnesium oxide 400 mg PO DAILY supplement 03/22/24 Unknown History metformin 500 mg tablet 500 mg PO BID #180 tabs 03/29/24 Unknown Rx sotalol 120 mg tablet 120 mg PO DAILY heart #180 tabs 04/10/24 Unknown Rx oxybutynin chloride 10 mg 10 mg PO DAILY #90 tabs 04/15/24 Unknown Rx tablet,extended release 24 hr apixaban 5 mg tablet (Eliquis) 5 mg PO BID #180 tabs 04/22/24 Unknown Rx fenofibrate micronized 134 mg 134 mg PO QPM #90 caps 04/25/24 Unknown Rx capsule lisinopril 20 mg tablet 20 mg PO BID #200 TABLETS 04/30/24 Unknown Rx cholecalciferol (vitamin D3) 1,250 50,000 unit PO FR supplement 05/08/24 Unknown History mcg (50,000 unit) tablet duloxetine 60 mg capsule,delayed 60 mg PO DAILY #90 caps 05/08/24 Unknown Rx release lorazepam 0.5 mg tablet (Ativan) 0.5 mg PO BID PRN Anxiety #30 tabs 05/08/24 Unknown Rx Allergy/AdvReac Type Severity Reaction Status Date / Time amoxicillin Allergy Severe hives Verified 05/08/24 12:53 chlorhexidine Allergy Unknown red skin Verified 05/08/24 12:53 morphine Allergy Unknown headaches Verified 05/08/24 12:53 labetalol Allergy Unknown Verified 05/08/24 12:53 pitavastatin (From Livalo) Allergy Other Verified 05/08/24 12:53 simvastatin (From Zocor) Allergy Other Verified 05/08/24 12:53 atorvastatin (From Lipitor) AdvReac Unknown myalgias Verified 05/08/24 12:53 budesonide (From Symbicort) AdvReac Other Verified 05/08/24 12:53 formoterol (From Symbicort) AdvReac Other Verified 05/08/24 12:53 hydrocodone (From Vicodin) AdvReac Other Verified 05/08/24 12:53 Uxtatvf-QCM-SaW Reductase AdvReac Other Verified 05/08/24 12:53 Inhibitor (Mtrfzpl-Dlu-Zsi Reductase Inhibitor) Family History Mother Cancer leukemia Father Respiratory disease Grandfather Myocardial infarction Grandmother Myocardial infarction Son Diabetes Surgical History Hx of prior ablation treatment Status post catheter ablation of atrial fibrillation History of hysterectomy History of exploratory laparotomy History of cataract surgery History of tonsillectomy and adenoidectomy History of surgery on right wrist History of colonoscopy Social History household members: spouse and children Smoking Status: Never smoker alcohol intake: never substance use type: does not use caffeine: Yes Type: coffee Number of servings: 1 what type of physical activity do you participate in: none seatbelt use: always do you feel safe at home: Yes ROS ROS Narrative Unable to obtain due to clinical condition. Objective Data Objective Data Vital Signs: Vital Signs Last response 3 Temperature 40.4 C H 05/08/24 22:00 Temperature Source Core 05/08/24 22:00 Pulse Rate 104 H 05/08/24 22:00 Pulse Strength Weak (1+) 05/08/24 22:00 Respiratory Rate 33 H 05/08/24 22:00 Respiratory Pattern Normal 05/08/24 20:49 Blood Pressure 80/43 L 05/08/24 22:00 Blood Pressure Mean 55 05/08/24 22:00 Blood Pressure Source Monitor 05/08/24 22:00 Blood Pressure Position Semi-Fowlers 05/08/24 22:00 Blood Pressure Location Right Arm 05/08/24 22:00 Pulse Ox 97 05/08/24 22:00 Oxygen Delivery Method Mechanical Ventilator 05/08/24 22:00 Oxygen Flow Rate (L/min) 3 05/08/24 18:52 Fraction of Inspired Oxygen (FIO2) 30 05/08/24 22:00 I&O: I&O Last 24 Hours 3 05/07/24 05/08/24 05/08/24 23:59 11:59 23:59 Intake Total 56.90 / 56.90 Balance 56.90 / 56.90 I&O: Total Stay 3 05/08/24 12:41 thru 05/08/24 22:00 Intake Total 56.90 Balance 56.90 Current Meds Ordered / Administered: Current meds ordered / Administered 3 Generic Name Dose Route Start Last Admin Trade Name Freq PRN Reason Stop Dose Admin Acetaminophen 650 mg 05/08/24 21:48 Acetaminophen 325 Mg Tablet GT Q6H PRN PRN Pain 1-10 Or Fever >100.7 Albuterol/Ipratropium 3 ml 05/08/24 18:57 Ipratropium/Albuterol Sulfate 3 Ml Ampul.Neb INHALATION Q4HWA.RT PRN SHORTNESS OF BREATH Amlodipine Besylate 5 mg 05/08/24 22:00 Amlodipine 5 Mg Tablet GT BID EM Protocol Aspirin 81 mg 05/09/24 08:00 Aspirin 81 Mg Tab.Chew GT BREAKFAST EM Buspirone HCl 20 mg 05/08/24 22:00 Buspirone 5 Mg Tablet GT TID [facility] Calamine/Phenol 1 applic 05/08/24 22:00 Menthol/Lanolin/Calamine/Znox 113 Gm Tube TOPICAL BID EM Protocol Chlorhexidine Gluconate 15 ml 05/08/24 22:00 Chlorhexidine 15 Ml PO BID EM Doxazosin Mesylate 2 mg 05/08/24 22:00 Doxazosin 4 Mg Tablet GT QHS EM Duloxetine HCl 60 mg 05/09/24 10:00 Duloxetine Hcl 60 Mg Capsule PO DAILY [facility] Ergocalciferol 1.25 mg 05/10/24 10:00 Ergocalciferol 1.25 Mg (50, 000 Unit) Capsule PO Fr@1000 [facility] Glucagon 1 mg 05/08/24 18:59 Glucagon 1 Mg/Ml Syringe IM X1 PRN Hypoglycemia Protocol Heparin Sodium (Beef Lung) 50 units 05/08/24 17:49 Heparin Pf Lock 10 Units/Ml 50 Units/5 Ml Syringe IV UD PRN Port-a-Cath (VAD)Heparin Flush Heparin Sodium (Porcine) 0 unit 05/08/24 22:00 Heparin Injection (Vial) 5,000 Unit/Ml Vial IV UD PRN dose adjustment Protocol Sodium Chloride 1,000 mls @ 100 mls/hr 05/08/24 18:35 IV 05/09/24 14:34 .Q10H EM Protocol Dextrose 250 mls @ 0 mls/hr 05/08/24 18:59 Dextrose 10%-Water IV .Q0M PRN HYPOGLYCEMIA Protocol As Directed Propofol 1,000 mg in 100 mls @ 6.104 mls/hr 05/08/24 20:50 05/08/24 22:00 Diprivan CONT INF 5 mcg/kg/min .Q12H EM 3.1 mls/hr Titration Protocol 10 MCG/KG/MIN Meropenem 1 gm/ Sodium 120 mls @ 33 mls/hr 05/08/24 22:00 05/08/24 22:01 Chloride IV 33 mls/hr Q12 EM Administration Lactated Ringer's 1,000 mls @ 999 mls/hr 05/08/24 21:15 05/08/24 21:39 IV 10/17/24 00:15 999 mls/hr .Q1H1M EM Administration Fentanyl 100 mls @ 5 mls/hr 05/08/24 21:05 05/08/24 21:50 CONT INF 50 mcg/hr UD EM 5 mls/hr Administration Protocol 50 MCG/HR Heparin Sodium/Dextrose 25,000 units in 250 mls @ 10 mls/hr 05/08/24 22:00 05/08/24 21:55 CONT INF 1,000 units/hr .Q25H EM 10 mls/hr Administration Protocol As Directed Norepinephrine Bitartrate 8 mg 250 mls @ 9.375 mls/hr 05/08/24 22:10 / Sodium Chloride CONT INF .[id number] [facility] Protocol 5 MCG/MIN Insulin Human Lispro 0 unit 05/08/24 21:15 Insulin Lispro 100 Unit/Ml Insuln.Pen SC Q6H [facility] Protocol Lorazepam 0.5 mg 05/08/24 18:57 Lorazepam 0.5 Mg Tablet PO BID PRN Anxiety Magnesium Chloride 128 mg 05/09/24 10:00 Magnesium Chloride 64 Mg Delay Rel.Tablet PO DAILY EM Multivitamins 1 tablet 05/09/24 08:00 Multivitamins,Therapeutic Tablet GT DAILYCM EM Nystatin 1 applic 05/08/24 22:00 Nystatin Powder 15gm Bottle TOPICAL TID [facility] Protocol Oxycodone HCl 2.5 - 5 mg 05/08/24 18:38 Oxycodone 5 Mg Tablet PO Q4H PRN PRN Pain Score 4-10 Pantoprazole Sodium 40 mg 05/08/24 22:00 Pantoprazole Sodium 40 Mg Tablet PO BID [facility] Prochlorperazine Edisylate 5 mg 05/08/24 18:38 Prochlorperazine 10 Mg/2 Ml Vial IV Q4H PRN PRN Breakthrough nausea/vomiting Senna/Docusate Sodium 2 tablet 05/08/24 22:00 Senna/Docusate Sodium 1 Tablet GT BID EM Sodium Chloride 10 - 40 ml 05/08/24 17:49 0.9 % Nacl (Sterile) Posiflush 10 Ml IV UD PRN Port access or dressing change Sodium Chloride 10 - 40 ml 05/08/24 17:49 05/08/24 21:27 0.9% Saline Lock 10 Ml Syringe IV 40 ml UD PRN Administration Port-a-Cath (VAD) Flush Sodium Chloride 5 ml 10/16/24 22:00 Sodium Cl For Inhalation 15 Ml Vial.Neb. INHALATION Q5M PRN Suctioning Sotalol HCl 120 mg 05/09/24 10:00 Sotalol Hydrochloride 80 Mg Tablet GT DAILY [facility] Tolterodine Tartrate 2 mg 05/09/24 10:00 Tolterodine Tartrate 2 Mg Cap.Sa PO DAILY [facility] Lab / Micro Data 05/08/24 13:25 05/08/24 13:25 Labs: Laboratory Results - last 24 hr 05/08/24 13:25: WBC 5.1, RBC 5.62 H, Hgb 15.6 H, Hct 49.5 H, MCV 88.1, MCH 27.8, MCHC 31.5 L, RDW Std Deviation 45.4 H, RDW Coeff of Nabor 14.3, Plt Count 237, MPV 10.3, Immature Gran % (Auto) 1.400 H, Neut % (Auto) 92.5 H, Lymph % (Auto) 4.3 L , Mcdowell % (Auto) 0.6, Eos % (Auto) 0.6, Baso % (Auto) 0.6, Absolute Neuts (auto) 4.7, Absolute Lymphs (auto) 0.22 L, Nucleated RBC % 0, Differential Comment SCANNED, Reactive Lymphocytes 1+, PT 15.2 H, INR 1.2, APTT 25.0, Sodium 139, Potassium 4.2, Chloride 106, Carbon Dioxide 23.0, Anion Gap 10, BUN 42 H, C reatinine 1.46 H, Estim Creat Clear Calc 38.08, Est GFR (MDRD) Af Amer 45 L, Est GFR (MDRD) Non-Af 37 L, BUN/Creatinine Ratio 28.8 H, Glucose 138 H, Lactic Acid 1.9, Calcium 9.3, Total Bilirubin 0.80, AST 31, ALT 28, Alkaline Phosphatase 76, Total Creatine Kinase 77, Troponin I High Sens 24, Total Protein 7.1, Albumin 3.5, Globulin 3.6, Albumin/Globulin Ratio 1.0, Triglycerides 189 05/08/24 13:50: Urine Color Yellow, Urine Clarity Sl. Cloudy, Urine pH 6.0, Ur Specific [employer] 1.010, Urine Protein 100 H, Urine Glucose (UA) Normal, Urine Ketones Negative, Urine Occult Blood 50 H, Urine Nitrite Negative, Urine Bilirubin Negative, Urine Urobilinogen Normal, Ur Leukocyte Esterase Negative, Urine RBC 0-5 SEEN, Urine WBC 0 SEEN, Ur Squamous Epith Cells 0-5 SEEN, Urine Bacteria 0 SEEN, Urine Mucus 0 SEEN 05/08/24 20:05: PT 17.6 H, INR 1.5, APTT 33.1, Phosphorus 3.3, Magnesium 1.1 L, Ammonia 27.0, Troponin I High Sens 424 H* Micro: Microbiology 05/08/24 13:25 Mucosa - Nose SARS-CoV-2, Influenza & RSV (PCR) - Final ABG Data ABG results: ABG 05/08/24 20:09 Specimen Type ART Sample Site L Radial pH 7.27 L Bicarbonate Actual 17.7 L Total CO2 19 Base Excess -9 L O2 Saturation 99 O2 % 15.0 ABG pCO2 39.0 ABG pO2 170 H Rafa Test Positive O2 Delivery Device NRB Vent Mode Not entered Imaging Radiology Impression Chest X-Ray 05/08/24 14:05 IMPRESSION: No radiographic evidence of acute cardiopulmonary disease. Electronically Signed: Roel Peter MD at 14:26 EDT , Abdomen/Pelvis CT 05/08/24 15:10 IMPRESSION: 1. Mild left hydronephrosis with extensive perinephric stranding likely due to 2 mm stone in the proximal left ureter. Superimposed pyelonephritis cannot be excluded. 2. Umbilical hernia containing small bowel loops without evidence of bowel obstruction. 3. Surgical anastomosis sutures in the mid transverse colon. Electronically Signed: Roel Peter MD at 15:40 EDT , Brain CT 05/08/24 20:03 IMPRESSION: Chronic microvascular ischemic changes. No CT evidence of acute intracranial pathology. Electronically Signed: Jad Howard DO at 20:36 EDT , Chest X-Ray 05/08/24 20:55 IMPRESSION: 1. Borderline enlargement of the cardiac silhouette perhaps indicative of cardiomegaly rather than pericardial effusion. 2. Endotracheal tube is well-positioned, 3.2 cm above the [place]. Other tubes and lines as above. 3. Hyperinflated lungs without focal airspace disease perhaps secondary to COPD. Electronically Signed: Jad SantamariaSabrina Howard DO at 21:25 EDT , KUB X-Ray 05/08/24 20:55 IMPRESSION: Enteric tube tip is well below the level of the GE junction. Otherwise, the examination is limited due to technique and patient body habitus. Electronically Signed: Jad VSabrina Howard DO at 21:24 EDT , Assessment and Plan . Assessment and plan: PE: General: Acute on chronically ill appearing morbidly obese female; + MV HEENT: anicteric Sclera; + ETT, nl nose; supple neck, no masses Cardiovascular: +S1/S2; No rubs, gallops; no displaced PMI Respiratory: diminished but clear; no crackles, wheezes, or rhonchi Abdominal: Non-tender; Non distended; hypoBS x 4; No Hepatosplenomegaly Extremities: Warm, well perfused; No clubbing, cyanosis; capillary refill < 2 sec Neurological: sedated A/P: #Acute hypercapnic respiratory failure: cont MV; F/U postintubation ABG; cont sedation/analgesia; SAT/SBT per protocol #Septic shock: sp fluid boluses; start Nepi to keep MAP > 65; consider stress dose steroids if remains hypotensive; trend lactate; emp IV Abx; F/U Cx; TTE in AM #Pyelonephritis: see above #Lt hydronephrosis with likely nephrolithiasis: cont supportive management; urology consulted in case intervention required #ROSANA: ?prerenal vs ATN vs other; start maintenance IVF after initial resuscitation; strict I/Os; may need nephro involvement #NSTEMI: likely type II but given significant bump now on emp hep gtt; F/U TTE; cards consultation #Acute encephalopathy: likely toxic/metabolic; initial head CT unremarkable; cont supportive management #COPD (nonsmoker, 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
[2024-05-08 22:24] LABS: Lactic Acid 6.5 mmol/L (0.4-1.9)
[2024-05-08 22:26] LABS: Bedside Glucose 119 mg/dL (74-106)
[2024-05-08] MEDS: Norepinephrine 8 MG in 0.9% Normal Saline (250mL Bag) 242 ML 9.4 MG CONT INF (22:30)
[2024-05-08] MEDS: Pantoprazole Sodium 40 MG Tablet PO (22:44)
[2024-05-08] MEDS: busPIRone 5 MG Tablet 20 MG GT (22:45)
[2024-05-08] MEDS: Nystatin Powder 15gm Bottle 1 APPLIC TOPICAL (22:45)
[2024-05-08] MEDS: Senna/Docusate Sodium 1 Tablet 2 TABLET GT (22:47)
[2024-05-08] MEDS: Chlorhexidine 15 ML PO (22:47)
[2024-05-08 22:54] LABS: Allen Test Positive; Base Excess -13 mmol/L (-2 to +2); Bicarbonate 12.6 mmol/L (22-26); Blood Gas Specimen Type ART; Mode AC; O2 Delivery Device Adult Vent; PEEP 5; PO2 88 mmHG (75-100); RR 12; SITE R Radial; SO2 97 % (95-99); Total Carbon Dioxide 13 mmol/L; pCO2 23.3 mmHg (35-45); pH 7.34 (7.35-7.45)
[2024-05-08] MEDS: Menthol/Lanolin/Calamine/Znox 113 GM Tube 1 APPLIC TOPICAL (22:54)
[2024-05-08] MEDS: Aspirin 300 MG Suppository RC (23:07)
[2024-05-08] MEDS: Magnesium Sulfate 2 GM in Dextrose 5%-Water (100mL Bag) 100 ML IV (23:07)
[2024-05-08] MEDS: Lactated Ringers 1,000 ML 100 ML IV (23:54)
[2024-05-08 23:56] LABS: Troponin-I HS 1478 pg/mL (3.0-54.0)
[2024-05-09] VITALS (79 sets, daily range): BP systolic 67–134; BP diastolic 40–64; PULSE 62–114; RESP 16–28; TEMP 37.2–40.1; O2SAT 96–100; BMI 42.6; BMI 41.0
[2024-05-09] MEDS: Vasopressin 20 UNITS in 0.9% Normal Saline (50mL Bag) 24 ML 3 UNITS CONT INF ×4 (00:16→21:54)
[2024-05-09] MEDS: Hydrocortisone Sod Succinate 100 MG/2 ML Vial IV ×4 (00:35→20:40)
[2024-05-09] MEDS: CHLORHEXIDINE GLUC 2% CLOTH 1 EACH TOWELETTE TOPICAL (00:36)
[2024-05-09] MEDS: Phenylephrine 10 MG in 0.9% Normal Saline (250mL Bag) 249 ML 15 MG CONT INF (01:00)
[2024-05-09] MEDS: 0.9% Saline Lock 10 ML Syringe IV ×2 (01:43→03:04)
[2024-05-09] MEDS: Vancomycin HCl 1,500 MG in 0.9% Normal Saline (500mL Bag) 500 ML 250 MG IV (01:43)
[2024-05-09 01:52] LABS: Reflex Lactate? Y
[2024-05-09] MEDS: Phenylephrine 10 MG in 0.9% Normal Saline (250mL Bag) 249 ML 270 MG CONT INF ×5 (02:27→07:51)
[2024-05-09 02:41] LABS: Absolute Lymphocyte Count 0.66 X10^3/uL (0.83-4.51); Absolute Neutrophil Count 20.9 X10^3/uL (2.0-7.7); Basophil# 0.07 X10^3/uL; Basophil% 0.3 % (0-1); Eosinophil# 0.02 X10^3/uL; Eosinophils% 0.1 % (0-5); Hematocrit 42.6 % (37-47); Hemoglobin 13.5 g/dL (12.0-15.0); Lymphocyte # 0.66 X10^3/ul (0.83-4.51); Lymphocyte % 2.9 % (19-41); Mean Corp Hgb Conc 31.7 g/dL (32-36); Mean Corpuscular Hgb 28.2 pg (27.0-32.0); Mean Corpuscular Volume 89.1 fL (81-99); Mean Platelet Vol. 11.2 fl (6.2-12.0); Monocyte# 0.19 X10^3/uL; Monocyte% 0.8 % (0-10); NRBC Flagged by Analyzer 0.2 % (0-5); Neutrophil % 93.5 % (47-70); POSITIVE DIFFERENTIAL YES; POSITIVE MORPHOLOGY YES; Platelet Count 146 K/mm3 (150-450); RBC Distribution Width CV 14.7 % (11.6-14.6); RBC Distribution Width SD 47.9 fl (35.1-43.9); Red Blood Count 4.78 M/mm3 (4.2-5.4); White Blood Count 22.4 K/mm3 (4.4-11.0)
--- NOTE | 2024-05-09 02:43 | PCM.RX.CS ---
Consult Antibiotic Management Pharmacy has been consulted to manage selected antibiotic: Vancomycin Type of Intervention Type of Consult: New start Suspected Infection Suspected Infection: Sepsis Microbiology Microbiology: Microbiology 05/08/24 13:25 Blood Culture (Wb) - Anticubital Left Blood Culture - Preliminary 05/08/24 13:25 Mucosa - Nose SARS-CoV-2, Influenza & RSV (PCR) - Final Goal Trough Goal Trough: 15-20 mcg/mL Pharmacy Plan for Drug Dosing Pharmacy Plan for Drug Dosing: NEW START IV VANCOMYCIN Consulting Physician: Dr. Luque Indication: Sepsis Goal Trough: 15-20 SrCr: 1.46 CrCl: 36.6 ml/min Comments: Standard initial dose (15 mg/kg) 1500mg x1 given at 01:43 05/09/24 Vancomycin Dose: 1500mg Q214H to start @ 02:00 05/10/24 Pending Level: Vancomycin trough @ 01:30 05/12/24 prior to 4th scheduled dose Pharmacy Service will continue to monitor and adjust dosing as required. Follow-Up Labs Follow-Up Labs: Trough: Vancomycin (0130 05/10/24)
[2024-05-09] MEDS: Albumin Human 25% (50 mL) 12.5 GM/50 ML IV.SOLN IV (03:03)
[2024-05-09] MEDS: Norepinephrine 8 MG in 0.9% Normal Saline (250mL Bag) 242 ML 65.6 MG CONT INF (03:05)
[2024-05-09 03:09] LABS: Anion Gap 15 (5-15); BUN 47 mg/dL (7-18); BUN/Creat Ratio 17.7 RATIO (10-20); Calcium,Total 7.8 mg/dL (8.5-10.1); Chloride 111 mmol/L (98-107); Cholesterol 126 mg/dL (200); Creatinine, Serum 2.66 mg/dL (0.55-1.02); EST Glomerular Filtration Rate 19 mL/min (>60); Est Glom Filt Rate - Afr Amer 22 mL/min (>60); Glucose 127 mg/dL (74-106); High Density Lipoprotein 31 mg/dL; Potassium 3.9 mmol/L (3.5-5.1); Sodium Level 140 mmol/L (136-145); Triglycerides 148 mg/dL; Very Low Density Lipoprotein 30 mg/dL (5-40)
[2024-05-09 03:10] LABS: Differential Indicated SCAN CRITERIA MET
[2024-05-09 03:22] LABS: Allen Test Positive; Base Excess -15 mmol/L (-2 to +2); Bicarbonate 11.5 mmol/L (22-26); Blood Gas Specimen Type ART; Mode AC; O2 Delivery Device Adult Vent; PEEP 5; PO2 90 mmHG (75-100); RR 28; SITE R Radial; SO2 96 % (95-99); Total Carbon Dioxide 12 mmol/L; pCO2 22.5 mmHg (35-45); pH 7.32 (7.35-7.45)
[2024-05-09 03:24] LABS: Troponin-I HS 1395 pg/mL (3.0-54.0)
[2024-05-09 03:24] LABS: Bedside Glucose 109 mg/dL (74-106)
[2024-05-09 04:06] LABS: Differential Comment SCANNED; Platelet Morphology LARGE
[2024-05-09] MEDS: Sodium Bicarbonate 150 MEQ in Dextrose 5%-Water (1000mL Bag) 1,000 ML 100 MEQ IV ×2 (04:30→15:38)
[2024-05-09] MEDS: busPIRone 5 MG Tablet 20 MG GT ×3 (05:13→20:37)
[2024-05-09] MEDS: Nystatin Powder 15gm Bottle 1 APPLIC TOPICAL ×3 (05:13→20:36)
[2024-05-09 05:35] LABS: Reflex Lactate? Y
--- NOTE | 2024-05-09 05:55 | RAD_ITS ---
INDICATION: dyspnea EXAMINATION/TECHNIQUE: X-RAY - XR Chest 1 View COMPARISON: 05/08/2024. FINDINGS: The lungs are unchanged. The cardiomediastinal silhouette is stable. Unchanged position of endotracheal tube NG tube and right IJ chest port. No pleural effusion or pneumothorax. The osseous structures are unchanged. RAD/Chest 1 View (Portable) IMPRESSION: No change from prior study. Electronically Signed: Butch Moon MD at 22:05 EDT ,
[2024-05-09 06:28] LABS: Lactic Acid 4.8 mmol/L (0.4-1.9)
--- NOTE | 2024-05-09 06:33 | PCM.PN.INT ---
Assessment & Plan Assessment/Plan (1) Septic shock: PLAN: Plan RECOMMENDATIONS: 1. Continue Levophed, vasopressin and Devan-Synephrine. Attempt to wean as tolerated. 2. Continue stress dose steroids as ordered. 3. Continue heparin infusion. 4. Continue empiric antimicrobials, pending infectious workup. 5. Continue sodium bicarbonate infusion for now. 6. Continue current sedation regimen. 7. Continue appropriate GI prophylaxis. IMPRESSIONS: 1. Septic shock Presumed gram-negative septic shock in the setting of acute pyelonephritis status post left retrograde pyelogram and left stent placement due to obstructing stone from left UPJ. Plan to continue current supportive measures including vasopressors in an attempt to maintain hemodynamic stability. Continue empiric broad-spectrum antimicrobials, pending finalized culture results. In addition, the patient will be continued on stress dose steroids until she can be successfully weaned from vasopressors. 2. Acute respiratory failure with hypoxemia and hypercapnia The patient was intubated for airway protection in the setting of metabolic encephalopathy, likely secondary to her presenting septic shock and subsequent hypotension. Arterial blood gas has improved with invasive mechanical ventilatory support. Sputum culture is currently pending. However, there does not appear to be an overt pulmonary infectious etiology. 3. ROSANA on CKD Most likely prerenal in etiology with possible ischemic ATN in the setting of #1. If renal function were to continue to worsen, will obtain nephrology consultation. Otherwise, continue current supportive measures for now, including sodium bicarb infusion. 4. Acute metabolic encephalopathy Most likely secondary to presenting septic shock. The patient appears to be mentating appropriately with invasive mechanical ventilatory support. ABG has improved. CT head was unremarkable. Continue supportive measures as outlined above. 5. NSTEMI Most likely secondary to demand ischemia in the setting of #1. Echocardiogram and cardiology consultation are pending. 6. Questionable history of COPD/atrial fibrillation on Eliquis/diabetes mellitus/history of ovarian CA/CAD/HFpEF Complicates care, management, recovery and prognosis. Continue to hold Eliquis for now. Okay to continue weight-based heparin infusion. Hold off on initiation of tube feeding for now. TIME: 40 minutes of critical care time, independent of procedures, was spent addressing the patient's septic shock, acute respiratory failure, acute kidney injury, acute metabolic encephalopathy, NSTEMI, review of all data and collaboration with the care team. Subjective Subjective The patient was seen and examined at the bedside this morning. Events from the last 24 hours have been reviewed. The patient is currently afebrile, hemodynamically stable and maintaining appropriate oxygen saturations on assist-control mode mechanical ventilation with an FiO2 requirement of 30%. White count is elevated this morning at 22,000. Platelet count has dropped to 146,000. Arterial blood gas obtained this morning demonstrated a pH of 7.32 with a pCO2 of 23 and pO2 of 90. Chemistry profile was notable for a bicarbonate of 14 and creatinine of 2.6. Troponin is elevated at 1395. This morning, the patient underwent successful cystoscopy with left stent placement secondary to an obstructing stone in the left UPJ. The patient remains on empiric broad-spectrum antimicrobials along with Levophed, vasopressin and Devan-Synephrine. Stress dose steroids were also initiated overnight along with a sodium bicarbonate infusion. Objective Data Objective Data The patient's most recent lab work, culture data and imaging studies have all been personally reviewed. Surface echocardiogram from June 2023 demonstrated mild concentric LVH with an ejection fraction of 60% and stage III diastolic dysfunction. Blood, urine and sputum cultures are pending. COVID, influenza and RSV PCR's were negative. Vital Signs: Vital Signs Temp Pulse Resp BP Pulse Ox O2 Del Method O2 Flow Rate 99.0 F 64 28 H 121/51 H 97 Mechanical Ventilator 3 05/09/24 05:00 05/09/24 05:00 05/09/24 05:00 05/09/24 05:00 05/09/24 05:00 05/09/24 05:00 05/08/24 18:52 FiO2 30 05/09/24 05:00 Oxygen Flow Rate (L/min) 3 Oxygen Delivery Method Mechanical Ventilator Weight: 224 lb 4.8 oz Body Mass Index (BMI) 41.0 Intake & Output: Intake and Output for Last 24 Hours 05/07/24 05/08/24 05/09/24 23:59 23:59 23:59 Intake Total 2334.81 / 2353.89 2594.35 / 2594.35 Output Total 50 / 50 Balance 2284.81 / 2303.89 2594.35 / 2594.35 Lab / Micro Data Attestation: I reviewed the patient's lab results. 05/09/24 02:30 05/09/24 02:30 Labs: Laboratory Results - last 24 hr 05/08/24 13:25: WBC 5.1, RBC 5.62 H, Hgb 15.6 H, Hct 49.5 H, MCV 88.1, MCH 27.8, MCHC 31.5 L, RDW Std Deviation 45.4 H, RDW Coeff of Nabor 14.3, Plt Count 237, MPV 10.3, Immature Gran % (Auto) 1.400 H, Neut % (Auto) 92.5 H, Lymph % (Auto) 4.3 L, [place] % (Auto) 0.6, Eos % (Auto) 0.6, Baso % (Auto) 0.6, Absolute Neuts (auto) 4.7, Absolute Lymphs (auto) 0.22 L, Nucleated RBC % 0, Differential Comment SCANNED, Reactive Lymphocytes 1+, PT 15.2 H, INR 1.2, APTT 25.0, Sodium 139, Potassium 4.2, Chloride 106, Carbon Dioxide 23.0, Anion Gap 10, BUN 42 H, Creatinine 1.46 H, Estim Creat Clear Calc 38.08, Est GFR (MDRD) Af Amer 45 L, Est GFR (MDRD) Non-Af 37 L, BUN/Creatinine Ratio 28.8 H, Glucose 138 H, Lactic Acid 1.9, Calcium 9.3, Total Bilirubin 0.80, AST 31, ALT 28, Alkaline Phosphatase 76, Total Creatine Kinase 77, Troponin I High Sens 24, Total Protein 7.1, Albumin 3.5, Globulin 3.6, Albumin/Globulin Ratio 1.0, Triglycerides 189 05/08/24 13:50: Urine Color Yellow, Urine Clarity Sl. Cloudy, Urine pH 6.0, Ur Specific Pearl 1.010, Urine Protein 100 H, Urine Glucose (UA) Normal, Urine Ketones Negative, Urine Occult Blood 50 H, Urine Nitrite Negative, Urine Bilirubin Negative, Urine Urobilinogen Normal, Ur Leukocyte Esterase Negative, Urine RBC 0-5 SEEN, Urine WBC 0 SEEN, Ur Squamous Epith Cells 0-5 SEEN, Urine Bacteria 0 SEEN, Urine Mucus 0 SEEN 05/08/24 20:05: PT 17.6 H, INR 1.5, APTT 33.1, Phosphorus 3.3, Magnesium 1.1 L, Ammonia 27.0, Troponin I High Sens 424 H* 05/08/24 21:48: Lactic Acid 6.5 H* 05/08/24 22:07: POC Glucose 119 H 05/08/24 23:15: Troponin I High Sens 1478 H* 05/09/24 01:20: Lactic Acid 6.0 H* 05/09/24 02:30: WBC 22.4 H, RBC 4.78, Hgb 13.5, Hct 42.6, MCV 89.1, MCH 28.2, MCHC 31.7 L, RDW Std Deviation 47.9 H, RDW Coeff of Nabor 14.7 H, Plt Count 146 L, MPV 11.2, Immature Gran % (Auto) 2.400 H, Neut % (Auto) 93.5 H, Lymph % (Auto) 2.9 L, [place] % (Auto) 0.8, Eos % (Auto) 0.1, Baso % (Auto) 0.3, Absolute Neuts (auto) 20.9 H, Absolute Lymphs (auto) 0.66 L, Nucleated RBC % 0.2, Differential Comment SCANNED, Plt Morphology Comment LARGE, Sodium 140, Potassium 3.9, Chloride 111 H, Carbon Dioxide 14.0 L, Anion Gap 15, BUN 47 H, Creatinine 2.66 H, Estim Creat Clear Calc 20.10, Est GFR (MDRD) Af Amer 22 L, Est GFR (MDRD) Non-Af 19 L, BUN/Creatinine Ratio 17.7, Glucose 127 H, Calcium 7.8 L, Troponin I High Sens 1395 H*, Triglycerides 148, Cholesterol 126, LDL Cholesterol 65, VLDL Cholesterol 30, HDL Cholesterol 31 L 05/09/24 02:37: POC Glucose 109 H 05/09/24 03:55: APTT 77.0 H 05/09/24 05:45: Lactic Acid 4.8 H* Micro: Microbiology 05/09/24 01:00 Stool Enteric Bacteriology - Final 05/09/24 01:00 Stool Clostridioides difficile (PCR) - Final 05/08/24 13:25 Blood Culture (Wb) - Anticubital Left Blood Culture - Preliminary 05/08/24 13:25 Mucosa - Nose SARS-CoV-2, Influenza & RSV (PCR) - Final ABG Data ABG results: ABG 05/08/24 05/08/24 05/09/24 20:09 22:50 03:17 Specimen Type ART ART ART Sample Site L Radial R Radial R Radial pH 7.27 L 7.34 L 7.32 L Bicarbonate Actual 17.7 L 12.6 L 11.5 L Total CO2 19 13 12 Base Excess -9 L -13 L -15 L O2 Saturation 99 97 96 O2 % 15.0 30.0 25.0 ABG pCO2 39.0 23.3 L 22.5 L ABG pO2 170 H 88 90 Rafa Test Positive Positive Positive Respiration Rate 12 28 O2 Delivery Device NRB Adult Vent Adult Vent Vent Mode Not entered [facility] Tidal Volume 450.0 450.0 POC PEEP 5 5 Radiography Diagnostic Testing: Radiology Impression Chest X-Ray 05/08/24 14:05 IMPRESSION: No radiographic evidence of acute cardiopulmonary disease. Electronically Signed: Roel Peter MD at 14:26 EDT , Abdomen/Pelvis CT 05/08/24 15:10 IMPRESSION: 1. Mild left hydronephrosis with extensive perinephric stranding likely due to 2 mm stone in the proximal left ureter. Superimposed pyelonephritis cannot be excluded. 2. Umbilical hernia containing small bowel loops without evidence of bowel obstruction. 3. Surgical anastomosis sutures in the mid transverse colon. Electronically Signed: Roel Peter MD at 15:40 EDT , Brain CT 05/08/24 20:03 IMPRESSION: Chronic microvascular ischemic changes. No CT evidence of acute intracranial pathology. Electronically Signed: Jad Howard DO at 20:36 EDT , Chest X-Ray 05/08/24 20:55 IMPRESSION: 1. Borderline enlargement of the cardiac silhouette perhaps indicative of cardiomegaly rather than pericardial effusion. 2. Endotracheal tube is well-positioned, 3.2 cm above the [place]. Other tubes and lines as above. 3. Hyperinflated lungs without focal airspace disease perhaps secondary to COPD. Electronically Signed: Jad Howard DO at 21:25 EDT , KUB X-Ray 05/08/24 20:55 IMPRESSION: Enteric tube tip is well below the level of the GE junction. Otherwise, the examination is limited due to technique and patient body habitus. Electronically Signed: Jad Howard DO at 21:24 EDT , Physical Exam Const Constitutional Narrative: Intubated, sedated and mechanically ventilated. Morbidly obese. HEENT normocephalic and head/scalp atraumatic Mouth: endotracheal tube in place Eyes PERRL, EOMs intact bilaterally and conjunctivae normal Neck supple General: trachea midline Chest inspection of chest normal Resp normal respiratory effort Effort and Inspection: tachypneic Auscultation: Negative for rales, rhonchi or wheezes Cardio regular rate and regular rhythm GI normal to inspection, nondistended, normoactive bowel sounds Extremity no clubbing, cyanosis or edema Skin no rashes or lesions noted Neuro Sensorium / Orientation: sedated on vent Charges/Coding Procedures Hospitalists Procedures: 00587 Critical Care 1st Hr
--- NOTE | 2024-05-09 06:41 | NURSING ---
Report given to Manuel, ELECTROSTATIC PAINT OPERATOR via telephone. Dr. Wolfe, Dr. Herrera, Manuel, and another ELECTROSTATIC PAINT OPERATOR came up to the floor to get the patient. Dr. Wolfe called Olivia, pt's daughter, to obtain consent for the procedure. Dr. Wolfe and Dr. Herrera both spoke with Olivia and obtained consent. Pt sent down to the OR with staff. Neosynephrine running @ 180 mcg/min, levophed running @ 30 mcg/hr, vasopressin @ 0.04 un/hr, and fentanyl @ 75 mcg/hr. Extra bags of ezra and levo sent down as well. Heparin gtt paused at [address] Wolfe and Dr. Herrera. Pt being bagged down to the OR, left unit at 0635.
--- NOTE | 2024-05-09 07:07 | PCM.CONS.U ---
HPI Consult Data Date of Consult: 05/09/24 HPI Narrative Reason for Consultation: Sepsis from obstructing stone HPI Narrative: ANDREW VELAZQUEZ, is a 78 F who presents to the hospital with an obstructing stone in the proximal left ureter she reports was admitted to the floor then overnight she became septic this morning I was made aware that she was in the intensive care unit with sepsis from obstructing stones around to take her immediately to surgery this morning for cystoscopy and stent placement [facility] Medical History Depression Diabetes Kidney stones Non-smoker CPAP (continuous positive airway pressure) dependence Congestive heart failure (CHF) Myocardial infarct OAB (overactive bladder) Atypical chest pain Urinary frequency Breast cancer screening Grief reaction Non-rheumatic tricuspid valve insufficiency Non-rheumatic mitral regurgitation History of cardioversion (~06/28/22) Chronic atrial fibrillation with RVR Obstructive sleep apnea Chronic obstructive pulmonary disease Depression Preop cardiovascular exam Port-A-Cath in place Ovarian cancer Pelvic mass Ascites Diarrhea Abdominal pain Flu vaccine need Vitamin D deficiency Essential hypertension Diastolic congestive heart failure Atherosclerotic heart disease of [place] coronary artery without angina pectoris Long-term use of high-risk medication SOB (shortness of breath) Pulmonary HTN Panic disorder Hiatal hernia Debility Paroxysmal atrial fibrillation with rapid ventricular response Streptococcal pneumonia Acute exacerbation of chronic obstructive pulmonary disease (COPD) Acute respiratory failure with hypoxia and hypercarbia NSTEMI (non-ST elevated myocardial infarction) Sepsis Junctional rhythm Spastic colon Morbid obesity PAF (paroxysmal atrial fibrillation) HLD (hyperlipidemia) CAD (coronary artery disease) Anxiety DM2 (diabetes mellitus, type 2) Hypokalemia Home Medications ?Medication ?Instructions ?Recorded ?Last Taken ?Type compress.stocking,knee,reg,lrg #2 ea 05/06/19 Unknown Rx lancing device #1 ea 12/29/20 Unknown Rx docusate sodium 100 mg capsule 100 mg PO BID PRN Constipation 05/04/22 Unknown History (Colace) albuterol sulfate 90 mcg/actuation 1 inh inhalation ONCE PRN SOB 05/23/22 Unknown History aerosol inhaler (Ventolin HFA) loperamide 2 mg tablet 2 mg PO Q6H PRN Diarrhea 06/27/22 Unknown History multivitamin 1 tab PO DAILY 11/25/22 Unknown History furosemide 40 mg tablet 20 mg PO PRN SWELLING 08/02/23 Unknown History hydrochlorothiazide 25 mg tablet 25 mg PO DAILY #90 tabs 03/29/23 Unknown Rx ibandronate 150 mg tablet 150 mg PO QMONTH #14 tabs 06/09/23 Unknown Rx spironolactone 25 mg tablet 25 mg PO DAILY #90 tabs 10/06/23 Unknown Rx doxazosin 2 mg tablet 2 mg PO QHS #30 tabs 10/23/23 Unknown Rx bevacizumab 25 mg/mL intravenous mg intravitreal MONTHLY CHEMO 11/24/23 Unknown History solution (Avastin) buspirone 10 mg tablet 20 mg (2 x 10 mg) PO TID 3 months 12/13/23 Unknown Rx #540 TABLETS fluticasone 500 mcg-salmeterol 50 1 inh inhalation BID #3 ea 02/01/24 Unknown Rx mcg/dose blistr powdr for inhalation (Wixela Inhub) ezetimibe 10 mg tablet (Zetia) 10 mg PO QDAY cholesterol #90 tabs 02/06/24 Unknown Rx amlodipine 5 mg tablet 5 mg PO BID #180 tabs 02/21/24 Unknown Rx pantoprazole 40 mg tablet,delayed 40 mg PO BID GERD #180 tabs 03/12/24 Unknown Rx release magnesium oxide 400 mg PO DAILY supplement 03/22/24 Unknown History metformin 500 mg tablet 500 mg PO BID #180 tabs 03/29/24 Unknown Rx sotalol 120 mg tablet 120 mg PO DAILY heart #180 tabs 04/10/24 Unknown Rx oxybutynin chloride 10 mg 10 mg PO DAILY #90 tabs 04/15/24 Unknown Rx tablet,extended release 24 hr apixaban 5 mg tablet (Eliquis) 5 mg PO BID #180 tabs 04/22/24 Unknown Rx fenofibrate micronized 134 mg 134 mg PO QPM #90 caps 04/25/24 Unknown Rx capsule lisinopril 20 mg tablet 20 mg PO BID #200 TABLETS 04/30/24 Unknown Rx cholecalciferol (vitamin D3) 1,250 50,000 unit PO FR supplement 05/08/24 Unknown History mcg (50,000 unit) tablet duloxetine 60 mg capsule,delayed 60 mg PO DAILY #90 caps 05/08/24 Unknown Rx release lorazepam 0.5 mg tablet (Ativan) 0.5 mg PO BID PRN Anxiety #30 tabs 05/08/24 Unknown Rx Allergy/AdvReac Type Severity Reaction Status Date / Time amoxicillin Allergy Severe hives Verified 05/08/24 12:53 chlorhexidine Allergy Unknown red skin Verified 05/08/24 12:53 morphine Allergy Unknown headaches Verified 05/08/24 12:53 labetalol Allergy Unknown Verified 05/08/24 12:53 pitavastatin (From Livalo) Allergy Other Verified 05/08/24 12:53 simvastatin (From Zocor) Allergy Other Verified 05/08/24 12:53 atorvastatin (From Lipitor) AdvReac Unknown myalgias Verified 05/08/24 12:53 budesonide (From Symbicort) AdvReac Other Verified 05/08/24 12:53 formoterol (From Symbicort) AdvReac Other Verified 05/08/24 12:53 hydrocodone (From Vicodin) AdvReac Other Verified 05/08/24 12:53 Jgyornt-XRN-YyC Reductase AdvReac Other Verified 05/08/24 12:53 Inhibitor (Kwdeigd-Nic-Pxt Reductase Inhibitor) Family History Mother Cancer leukemia Father Respiratory disease Grandfather Myocardial infarction Grandmother Myocardial infarction Son Diabetes Surgical History Hx of prior ablation treatment Status post catheter ablation of atrial fibrillation History of hysterectomy History of exploratory laparotomy History of cataract surgery History of tonsillectomy and adenoidectomy History of surgery on right wrist History of colonoscopy Social History household members: spouse and children Smoking Status: Never smoker alcohol intake: never substance use type: does not use caffeine: Yes Type: coffee Number of servings: 1 what type of physical activity do you participate in: none seatbelt use: always do you feel safe at home: Yes Lab / Micro Data 05/09/24 02:30 05/09/24 02:30 Labs: Laboratory Results - last 24 hr 05/08/24 13:25: WBC 5.1, RBC 5.62 H, Hgb 15.6 H, Hct 49.5 H, MCV 88.1, MCH 27.8, MCHC 31.5 L, RDW Std Deviation 45.4 H, RDW Coeff of Nabor 14.3, Plt Count 237, MPV 10.3, Immature Gran % (Auto) 1.400 H, Neut % (Auto) 92.5 H, Lymph % (Auto) 4.3 L, [place] % (Auto) 0.6, Eos % (Auto) 0.6, Baso % (Auto) 0.6, Absolute Neuts (auto) 4.7, Absolute Lymphs (auto) 0.22 L, Nucleated RBC % 0, Differential Comment SCANNED, Reactive Lymphocytes 1+, PT 15.2 H, INR 1.2, APTT 25.0, Sodium 139, Potassium 4.2, Chloride 106, Carbon Dioxide 23.0, Anion Gap 10, BUN 42 H, Creatinine 1.46 H, Estim Creat Clear Calc 38.08, Est GFR (MDRD) Af Amer 45 L, Est GFR (MDRD) Non-Af 37 L, BUN/Creatinine Ratio 28.8 H, Glucose 138 H, Lactic Acid 1.9, Calcium 9.3, Total Bilirubin 0.80, AST 31, ALT 28, Alkaline Phosphatase 76, Total Creatine Kinase 77, Troponin I High Sens 24, Total Protein 7.1, Albumin 3.5, Globulin 3.6, Albumin/Globulin Ratio 1.0, Triglycerides 189 05/08/24 13:50: Urine Color Yellow, Urine Clarity Sl. Cloudy, Urine pH 6.0, Ur Specific [place] 1.010, Urine Protein 100 H, Urine Glucose (UA) Normal, Urine Ketones Negative, Urine Occult Blood 50 H, Urine Nitrite Negative, Urine Bilirubin Negative, Urine Urobilinogen Normal, Ur Leukocyte Esterase Negative, Urine RBC 0-5 SEEN, Urine WBC 0 SEEN, Ur Squamous Epith Cells 0-5 SEEN, Urine Bacteria 0 SEEN, Urine Mucus 0 SEEN 05/08/24 20:05: PT 17.6 H, INR 1.5, APTT 33.1, Phosphorus 3.3, Magnesium 1.1 L, Ammonia 27.0, Troponin I High Sens 424 H* 05/08/24 21:48: Lactic Acid 6.5 H* 05/08/24 22:07: POC Glucose 119 H 05/08/24 23:15: Troponin I High Sens 1478 H* 05/09/24 01:20: Lactic Acid 6.0 H* 05/09/24 02:30: WBC 22.4 H, RBC 4.78, Hgb 13.5, Hct 42.6, MCV 89.1, MCH 28.2, MCHC 31.7 L, RDW Std Deviation 47.9 H, RDW Coeff of Nabor 14.7 H, Plt Count 146 L, MPV 11.2, Immature Gran % (Auto) 2.400 H, Neut % (Auto) 93.5 H, Lymph % (Auto) 2.9 L, [place] % (Auto) 0.8, Eos % (Auto) 0.1, Baso % (Auto) 0.3, Absolute Neuts (auto) 20.9 H, Absolute Lymphs (auto) 0.66 L, Nucleated RBC % 0.2, Differential Comment SCANNED, Plt Morphology Comment LARGE, Sodium 140, Potassium 3.9, Chloride 111 H, Carbon Dioxide 14.0 L, Anion Gap 15, BUN 47 H, Creatinine 2.66 H, Estim Creat Clear Calc 20.10, Est GFR (MDRD) Af Amer 22 L, Est GFR (MDRD) Non-Af 19 L, BUN/Creatinine Ratio 17.7, Glucose 127 H, Calcium 7.8 L, Troponin I High Sens 1395 H*, Triglycerides 148, Cholesterol 126, LDL Cholesterol 65, VLDL Cholesterol 30, HDL Cholesterol 31 L 05/09/24 02:37: POC Glucose 109 H 05/09/24 03:55: APTT 77.0 H 05/09/24 05:45: Lactic Acid 4.8 H* Micro: Microbiology 05/09/24 01:00 Stool Enteric Bacteriology - Final 05/09/24 01:00 Stool Clostridioides difficile (PCR) - Final 05/08/24 13:25 Blood Culture (Wb) - Anticubital Left Blood Culture - Preliminary 05/08/24 13:25 Mucosa - Nose SARS-CoV-2, Influenza & RSV (PCR) - Final ABG Data ABG results: ABG 05/08/24 05/08/24 05/09/24 20:09 22:50 03:17 Specimen Type ART ART ART Sample Site L Radial R Radial R Radial pH 7.27 L 7.34 L 7.32 L Bicarbonate Actual 17.7 L 12.6 L 11.5 L Total CO2 19 13 12 Base Excess -9 L -13 L -15 L O2 Saturation 99 97 96 O2 % 15.0 30.0 25.0 ABG pCO2 39.0 23.3 L 22.5 L ABG pO2 170 H 88 90 Rafa Test Positive Positive Positive Respiration Rate 12 28 O2 Delivery Device NRB Adult Vent Adult Vent Vent Mode Not entered AC AC Tidal Volume 450.0 450.0 POC PEEP 5 5 Imaging Radiology Impression Chest X-Ray 05/08/24 14:05 IMPRESSION: No radiographic evidence of acute cardiopulmonary disease. Electronically Signed: Roel Peter MD at 14:26 EDT , Abdomen/Pelvis CT 05/08/24 15:10 IMPRESSION: 1. Mild left hydronephrosis with extensive perinephric stranding likely due to 2 mm stone in the proximal left ureter. Superimposed pyelonephritis cannot be excluded. 2. Umbilical hernia containing small bowel loops without evidence of bowel obstruction. 3. Surgical anastomosis sutures in the mid transverse colon. Electronically Signed: Roel Peter MD at 15:40 EDT , Brain CT 05/08/24 20:03 IMPRESSION: Chronic microvascular ischemic changes. No CT evidence of acute intracranial pathology. Electronically Signed: Jad Howard DO at 20:36 EDT , Chest X-Ray 05/08/24 20:55 IMPRESSION: 1. Borderline enlargement of the cardiac silhouette perhaps indicative of cardiomegaly rather than pericardial effusion. 2. Endotracheal tube is well-positioned, 3.2 cm above the [place]. Other tubes and lines as above. 3. Hyperinflated lungs without focal airspace disease perhaps secondary to COPD. Electronically Signed: Jad Howard DO at 21:25 EDT , KUB X-Ray 05/08/24 20:55 IMPRESSION: Enteric tube tip is well below the level of the GE junction. Otherwise, the examination is limited due to technique and patient body habitus. Electronically Signed: Jad Howard DO at 21:24 EDT ,
--- NOTE | 2024-05-09 07:08 | OP.PCM_ITS ---
Report of Operation Date of Procedure: 05/09/24 Pre-Operative Diagnosis: Obstructing stone from left UPJ stone and sepsis pyelo nephritis Post-Operative Diagnosis: The same Surgery/Procedure Performed:: Cystoscopy, left retrograde pyelogram and left stent placement Description of Surgical Findings:: 78-year-old female who is in intensive care unit with some sepsis from obstructing stone and UTI and urosepsis, she was brought down from the intensive care unit she is on pressors she has pressors on, intubated with an A-line she was taken down from the ICU directly to the operating room #4 she underwent anesthesia by Dr. Herrera she was placed in dorsolithotomy position. The urethrovaginal area prepped and draped in usual fashion, went into the bladder with a 21 Tristanian rigid cystourethroscope identified the left ureteral orifice ca nnulated this with the Pollick catheter performed a retrograde pyelogram see contrast going up into the kidney delineate the anatomy I then put a wire up into the kidney coiled it and then over the wire I advanced a stent 6 Tristanian by 26 cm stent once the stent was in good position then I pulled the wire and the stent coiled in the kidney and bladder had a significant amount of purulent pus draining from the left kidney and then we placed a Bruno catheter the patient was then transferred back to the intensive care unit to continue her resuscitation. Surgeon: Kevin Wolfe Type of Anesthesia: General Drains: left stent Estimated Blood Loss (mL): 0 Procedure Start Time: 06:59 Procedure Stop Time: 07:10 Admit VTE Documentation VTE Present on Admission: No VTE Mechan Device Prophylaxis: SCD's VTE Pharm Prophylaxis ordered?: No
[2024-05-09] MEDS: Multivitamins,Therapeutic Tablet 1 TABLET GT (07:46)
[2024-05-09] MEDS: Menthol/Lanolin/Calamine/Znox 113 GM Tube 1 APPLIC TOPICAL ×2 (07:46→20:37)
[2024-05-09] MEDS: Aspirin 81 MG TAB.CHEW GT (07:47)
[2024-05-09] MEDS: Chlorhexidine 15 ML PO ×2 (07:48→20:37)
[2024-05-09] MEDS: DULoxetine Hcl 60 MG Capsule PO (07:48)
[2024-05-09] MEDS: Magnesium Chloride 64 MG Delay Rel.Tablet 128 MG PO (07:50)
[2024-05-09 07:51] LABS: Hemoglobin A1c 6.3 % (3.8-5.6)
[2024-05-09] MEDS: Norepinephrine 8 MG in 0.9% Normal Saline (250mL Bag) 242 ML 56.3 MG CONT INF (07:51)
[2024-05-09] MEDS: Senna/Docusate Sodium 1 Tablet 2 TABLET GT (07:52)
[2024-05-09] MEDS: Meropenem 1 GM in 0.9% Normal Saline (100mL MB+) 100 ML IV ×2 (08:16→20:36)
[2024-05-09] MEDS: Sotalol Hydrochloride 80 MG Tablet 120 MG GT (08:28)
--- NOTE | 2024-05-09 08:37 | PCM.CONS.C ---
Assessment & Plan Assessment/Plan (1) Septic shock: PLAN: The patient is being treated for presumed urosepsis and septic shock. She remains on pressors and is intubated. Management as per the primary service and intensive care physicians. (2) Atrial fibrillation: QUALIFIERS: Atrial fibrillation type: paroxysmal Qualified Code(s): I48.0 - Paroxysmal atrial fibrillation PLAN: Patient has a history of paroxysmal atrial fibrillation. She has been controlled with a combination of sotalol and Eliquis. The Eliquis is appropriately being held at this given time. I would recommend if blood pressure will tolerate it that the Betapace (sotalol) be continued for maintenance of sinus rhythm. It is likely she would revert into atrial fibrillation given the septic stressors. Given her renal function deterioration her Betapace should be decreased to 120 mg every other day. Once her renal function creatinine clearance is above 30 it should be reinstituted to 120 mg daily. (3) Atherosclerotic heart disease of [place] coronary artery without angina pectoris: QUALIFIERS: Three Affiliated vs. transplanted heart: [place] heart Qualified Code(s): I25.10 - Atherosclerotic heart disease of [place] coronary artery without angina pectoris PLAN: Patient carries a history of mild coronary artery disease. The elevated troponins are most likely related to small vessel disease in this diabetic patient under tremendous stress with hypotension and septic shock. We should reevaluate her LV function with an echocardiogram once she is extubated. At this point in time supportive care is indicated. (4) Ovarian cancer: QUALIFIERS: Laterality: unspecified laterality Qualified Code(s): C56.9 - Malignant neoplasm of unspecified ovary PLAN: Treatment management per the primary service (5) Elevated troponin: PLAN: The patient's troponin is highly likely related to the septic shock and demand ischemia. We will reevaluate her LV function. PLAN: Plan 1. Give 1 dose of sotalol today 120 mg and then make the dose every other day. 2. We will obtain 2D echocardiogram when patient is off the ventilator. If remains ventilated more than 24 hours we will do a limited echo to look at LV function in the next 24 hours. 3. Continue current therapy per ICU team and primary service. HPI Consult Data Date of Consult: 05/09/24 HPI Narrative Reason for Consultation: Elevated troponins HPI Narrative: ANDREW VELAZQUEZ, is a 78 F who presents initially with left flank pain and subsequently developed urosepsis. The patient had an obstructed ureter that was treated with emergent cystoscopy with stent placement and removal of the stone. Since that the patient's lactic acid has started to come down she remains on pressors to maintain her blood pressure and heart rate. The patient has a history of her troponins being initial 1478 they have come down to 1395. The patient's cardiac history is consistent with paroxysmal atrial fibrillation she has been cared for by electrophysiology at [facility]. She has has previous cardioversions and has been maintaining sinus rhythm on sotalol and Eliquis. Currently the patient is in normal sinus rhythm with a heart rate of 68. The patient is denying any chest pain that is difficult to communicate that she because she is intubated. Patient's previous EKG in our office March 22, 2024 all showed normal sinus rhythm and was within normal limits. The patient's initial EKG May 08 at 1947 hrs. showed what appeared to be possible accelerated junctional rhythm with retrograde P waves. Heart rate was [address]-T wave changes. The patient's creatinine clearance in January 2024 was 55 with a creatinine of 1.03. It is up to 2.6 with a GFR of 19. The patient has a history of diabetes and ovarian cancer for which she is receiving chemotherapy through a port. [facility] Medical History Depression Diabetes Kidney stones Non-smoker CPAP (continuous positive airway pressure) dependence Congestive heart failure (CHF) Myocardial infarct OAB (overactive bladder) Atypical chest pain Urinary frequency Breast cancer screening Grief reaction Non-rheumatic tricuspid valve insufficiency Non-rheumatic mitral regurgitation History of cardioversion (~06/28/22) Chronic atrial fibrillation with RVR Obstructive sleep apnea Chronic obstructive pulmonary disease Depression Preop cardiovascular exam Port-A-Cath in place Ovarian cancer Pelvic mass Ascites Diarrhea Abdominal pain Flu vaccine need Vitamin D deficiency Essential hypertension Diastolic congestive heart failure Atherosclerotic heart disease of [place] coronary artery without angina pectoris Long-term use of high-risk medication SOB (shortness of breath) Pulmonary HTN Panic disorder Hiatal hernia Debility Paroxysmal atrial fibrillation with rapid ventricular response Streptococcal pneumonia Acute exacerbation of chronic obstructive pulmonary disease (COPD) Acute respiratory failure with hypoxia and hypercarbia NSTEMI (non-ST elevated myocardial infarction) Sepsis Junctional rhythm Spastic colon Morbid obesity PAF (paroxysmal atrial fibrillation) HLD (hyperlipidemia) CAD (coronary artery disease) Anxiety DM2 (diabetes mellitus, type 2) Hypokalemia Home Medications ?Medication ?Instructions ?Recorded ?Last Taken ?Type compress.stocking,knee,reg,lrg #2 ea 05/06/19 Unknown Rx lancing device #1 ea 12/29/20 Unknown Rx docusate sodium 100 mg capsule 100 mg PO BID PRN Constipation 05/04/22 Unknown History (Colace) albuterol sulfate 90 mcg/actuation 1 inh inhalation ONCE PRN SOB 05/23/22 Unknown History aerosol inhaler (Ventolin HFA) loperamide 2 mg tablet 2 mg PO Q6H PRN Diarrhea 06/27/22 Unknown History multivitamin 1 tab PO DAILY 11/25/22 Unknown History furosemide 40 mg tablet 20 mg PO PRN SWELLING 02/22/23 Unknown History hydrochlorothiazide 25 mg tablet 25 mg PO DAILY #90 tabs 03/29/23 Unknown Rx ibandronate 150 mg tablet 150 mg PO QMONTH #14 tabs 06/09/23 Unknown Rx spironolactone 25 mg tablet 25 mg PO DAILY #90 tabs 10/06/23 Unknown Rx doxazosin 2 mg tablet 2 mg PO QHS #30 tabs 10/23/23 Unknown Rx bevacizumab 25 mg/mL intravenous mg intravitreal MONTHLY CHEMO 11/24/23 Unknown History solution (Avastin) buspirone 10 mg tablet 20 mg (2 x 10 mg) PO TID 3 months 12/13/23 Unknown Rx #540 TABLETS fluticasone 500 mcg-salmeterol 50 1 inh inhalation BID #3 ea 02/01/24 Unknown Rx mcg/dose blistr powdr for inhalation (Wixela Inhub) ezetimibe 10 mg tablet (Zetia) 10 mg PO QDAY cholesterol #90 tabs 02/06/24 Unknown Rx amlodipine 5 mg tablet 5 mg PO BID #180 tabs 02/21/24 Unknown Rx pantoprazole 40 mg tablet,delayed 40 mg PO BID GERD #180 tabs 03/12/24 Unknown Rx release magnesium oxide 400 mg PO DAILY supplement 03/22/24 Unknown History metformin 500 mg tablet 500 mg PO BID #180 tabs 03/29/24 Unknown Rx sotalol 120 mg tablet 120 mg PO DAILY heart #180 tabs 04/10/24 Unknown Rx oxybutynin chloride 10 mg 10 mg PO DAILY #90 tabs 04/15/24 Unknown Rx tablet,extended release 24 hr apixaban 5 mg tablet (Eliquis) 5 mg PO BID #180 tabs 04/22/24 Unknown Rx fenofibrate micronized 134 mg 134 mg PO QPM #90 caps 04/25/24 Unknown Rx capsule lisinopril 20 mg tablet 20 mg PO BID #200 TABLETS 04/30/24 Unknown Rx cholecalciferol (vitamin D3) 1,250 50,000 unit PO FR supplement 05/08/24 Unknown History mcg (50,000 unit) tablet duloxetine 60 mg capsule,delayed 60 mg PO DAILY #90 caps 05/08/24 Unknown Rx release lorazepam 0.5 mg tablet (Ativan) 0.5 mg PO BID PRN Anxiety #30 tabs 05/08/24 Unknown Rx Allergy/AdvReac Type Severity Reaction Status Date / Time amoxicillin Allergy Severe hives Verified 05/08/24 12:53 chlorhexidine Allergy Unknown red skin Verified 05/08/24 12:53 morphine Allergy Unknown headaches Verified 05/08/24 12:53 labetalol Allergy Unknown Verified 05/08/24 12:53 pitavastatin (From Livalo) Allergy Other Verified 05/08/24 12:53 simvastatin (From Zocor) Allergy Other Verified 05/08/24 12:53 atorvastatin (From Lipitor) AdvReac Unknown myalgias Verified 05/08/24 12:53 budesonide (From Symbicort) AdvReac Other Verified 05/08/24 12:53 formoterol (From Symbicort) AdvReac Other Verified 05/08/24 12:53 hydrocodone (From Vicodin) AdvReac Other Verified 05/08/24 12:53 Lsnxcus-NHF-VwF Reductase AdvReac Other Verified 05/08/24 12:53 Inhibitor (Mjznxlo-Mvq-Jop Reductase Inhibitor) Family History Mother Cancer leukemia Father Respiratory disease Grandfather Myocardial infarction Grandmother Myocardial infarction Son Diabetes Surgical History Hx of prior ablation treatment Status post catheter ablation of atrial fibrillation History of hysterectomy History of exploratory laparotomy History of cataract surgery History of tonsillectomy and adenoidectomy History of surgery on right wrist History of colonoscopy Social History household members: spouse and children Smoking Status: Never smoker alcohol intake: never substance use type: does not use caffeine: Yes Type: coffee Number of servings: 1 what type of physical activity do you participate in: none seatbelt use: always do you feel safe at home: Yes ROS Review of Systems ROS Unobtainable: due to endotracheal tube Physical Exam Const Constitutional Narrative: Patient is intubated arousable and awake but unable to answer questions. She is lethargic. Orientation / Consciousness: awake HEENT normocephalic Eyes EOMs intact bilaterally Neck Neck Narrative: Intubated Resp Resp Narrative: Patient is intubated with mechanical ventilation. Auscultation: diminished lung sounds diffuse Cardio regular rate, regular rhythm, S1 normal heart sound and S2 normal heart sound; Negative for no murmurs, no rub or no gallops Cardio Narrative: Very distant heart tones due to body habitus and intubated status. GI soft to palpation GI Narrative: Obese Extremity no pedal edema Extremity Narrative: All extremities are cool to touch as the patient remains on pressors. General Extremity: Negative for edema Neuro Neuro Narrative: Intubated Psych Psych Narrative: Unable to assess Risk Stratification Risk Stratification Applicable: Yes Age >/= 65: Yes >/= 3 CAD Risk Factors (HTN, HLD, DM, family hx of CAD, or current smoker): Yes Aspirin Use in the Past 7 Days: No Severe Angina (>/= episodes in 24 hours): No EKG ST Changes >/= 0.5mm: No Positive Cardiac Marker: Yes TATA Risk Stratification Score: 3 TATA % Risk: 13% Risk Charges/Coding Visit Charges Inpatient E&M: 93001 Init Hosp L3 Objective Data Vital Signs: Vital Signs Temp Pulse Resp BP Pulse Ox O2 Del Method O2 Flow Rate 99.3 F H 64 28 H 129/56 H 96 Mechanical Ventilator 3 05/09/24 08:00 05/09/24 08:00 05/09/24 08:00 05/09/24 08:15 05/09/24 08:00 05/09/24 08:00 05/08/24 18:52 FiO2 25 05/09/24 08:00 Oxygen Flow Rate (L/min) 3 Oxygen Delivery Method Mechanical Ventilator Weight: 224 lb 4.8 oz Body Mass Index (BMI) 41.0 Intake & Output: Intake and Output for Last 24 Hours 05/07/24 05/08/24 05/09/24 23:59 23:59 23:59 Intake Total 2334.81 / 2353.89 3132.15 / 3132.15 Output Total 50 / 50 30 / 30 Balance 2284.81 / 2303.89 3102.15 / 3102.15 Lab / Micro Data Attestation: I reviewed the patient's lab results. 05/09/24 02:30 05/09/24 02:30 Labs: Laboratory Results - last 24 hr 05/08/24 13:25: WBC 5.1, RBC 5.62 H, Hgb 15.6 H, Hct 49.5 H, MCV 88.1, MCH 27.8, MCHC 31.5 L, RDW Std Deviation 45.4 H, RDW Coeff of [place] 14.3, Plt Count 237, MPV 10.3, Immature Gran % (Auto) 1.400 H, Neut % (Auto) 92.5 H, Lymph % (Auto) 4.3 L, [place] % (Auto) 0.6, Eos % (Auto) 0.6, Baso % (Auto) 0.6, Absolute Neuts (auto) 4.7, Absolute Lymphs (auto) 0.22 L, Nucleated RBC % 0, Differential Comment SCANNED, Reactive Lymphocytes 1+, PT 15.2 H, INR 1.2, APTT 25.0, Sodium 139, Potassium 4.2, Chloride 106, Carbon Dioxide 23.0, Anion Gap 10, BUN 42 H, Creatinine 1.46 H, Estim Creat Clear Calc 38.08, Est GFR (MDRD) Af Amer 45 L, Est GFR (MDRD) Non-Af 37 L, BUN/Creatinine Ratio 28.8 H, Glucose 138 H, Lactic Acid 1.9, Calcium 9.3, Total Bilirubin 0.80, AST 31, ALT 28, Alkaline Phosphatase 76, Total Creatine Kinase 77, Troponin I High Sens 24, Total Protein 7.1, Albumin 3.5, Globulin 3.6, Albumin/Globulin Ratio 1.0, Triglycerides 189 05/08/24 13:50: Urine Color Yellow, Urine Clarity Sl. Cloudy, Urine pH 6.0, Ur Specific [place] 1.010, Urine Protein 100 H, Urine Glucose (UA) Normal, Urine Ketones Negative, Urine Occult Blood 50 H, Urine Nitrite Negative, Urine Bilirubin Negative, Urine Urobilinogen Normal, Ur Leukocyte Esterase Negative, Urine RBC 0-5 SEEN, Urine WBC 0 SEEN, Ur Squamous Epith Cells 0-5 SEEN, Urine Bacteria 0 SEEN, Urine Mucus 0 SEEN 05/08/24 20:05: PT 17.6 H, INR 1.5, APTT 33.1, Phosphorus 3.3, Magnesium 1.1 L, Ammonia 27.0, Troponin I High Sens 424 H* 05/08/24 21:48: Lactic Acid 6.5 H* 05/08/24 22:07: POC Glucose 119 H 05/08/24 23:15: Troponin I High Sens 1478 H* 05/09/24 01:20: Lactic Acid 6.0 H* 05/09/24 02:30: WBC 22.4 H, RBC 4.78, Hgb 13.5, Hct 42.6, MCV 89.1, MCH 28.2, MCHC 31.7 L, RDW Std Deviation 47.9 H, RDW Coeff of [place] 14.7 H, Plt Count 146 L, MPV 11.2, Immature Gran % (Auto) 2.400 H, Neut % (Auto) 93.5 H, Lymph % (Auto) 2.9 L, [place] % (Auto) 0.8, Eos % (Auto) 0.1, Baso % (Auto) 0.3, Absolute Neuts (auto) 20.9 H, Absolute Lymphs (auto) 0.66 L, Nucleated RBC % 0.2, Differential Comment SCANNED, Plt Morphology Comment LARGE, Sodium 140, Potassium 3.9, Chloride 111 H, Carbon Dioxide 14.0 L, Anion Gap 15, BUN 47 H, Creatinine 2.66 H, Estim Creat Clear Calc 20.10, Est GFR (MDRD) Af Amer 22 L, Est GFR (MDRD) Non-Af 19 L, BUN/Creatinine Ratio 17.7, Glucose 127 H, Hemoglobin A1c 6.3 H, Calcium 7.8 L, Troponin I High Sens 1395 H*, Triglycerides 148, Cholesterol 126, LDL Cholesterol 65, VLDL Cholesterol 30, HDL Cholesterol 31 L 05/09/24 02:37: POC Glucose 109 H 05/09/24 03:55: APTT 77.0 H 05/09/24 05:45: Lactic Acid 4.8 H* Micro: Microbiology 05/08/24 13:25 Blood Culture (Wb) - Anticubital Left Blood Culture - Preliminary Gram negative scarlett 05/09/24 01:00 Stool Enteric Bacteriology - Final 05/09/24 01:00 Stool Clostridioides difficile (PCR) - Final 05/08/24 13:25 Mucosa - Nose SARS-CoV-2, Influenza & RSV (PCR) - Final ABG Data ABG results: ABG 05/08/24 05/08/24 05/09/24 20:09 22:50 03:17 Specimen Type ART ART ART Sample Site L Radial R Radial R Radial pH 7.27 L 7.34 L 7.32 L Bicarbonate Actual 17.7 L 12.6 L 11.5 L Total CO2 19 13 12 Base Excess -9 L -13 L -15 L O2 Saturation 99 97 96 O2 % 15.0 30.0 25.0 ABG pCO2 39.0 23.3 L 22.5 L ABG pO2 170 H 88 90 Rafa Test Positive Positive Positive Respiration Rate 12 28 O2 Delivery Device NRB Adult Vent Adult Vent Vent Mode Not entered AC AC Tidal Volume 450.0 450.0 POC PEEP 5 5 Rhythm Strip Rhythm Strip: Sinus Rhythm Rate: 66 Cardiology Labs/Tests 05/08/24 13:25: WBC 5.1, RBC 5.62 H, Hgb 15.6 H, Hct 49.5 H, MCV 88.1, MCH 27.8, MCHC 31.5 L, Plt Count 237, MPV 10.3, Immature Gran % (Auto) 1.400 H, Neut % (Auto) 92.5 H, Lymph % (Auto) 4.3 L, [place] % (Auto) 0.6, Eos % (Auto) 0.6, Baso % (Auto) 0.6, Absolute Neuts (auto) 4.7, Nucleated RBC % 0, PT 15.2 H, INR 1.2, APTT 25.0, Sodium 139, Potassium 4.2, Chloride 106, Carbon Dioxide 23.0, Anion Gap 10, BUN 42 H, Creatinine 1.46 H, Est GFR (MDRD) Af Amer 45 L, Est GFR (MDRD) Non-Af 37 L, BUN/Creatinine Ratio 28.8 H, Glucose 138 H, Lactic Acid 1.9, Calcium 9.3, Total Bilirubin 0.80, Triglycerides 189 05/08/24 13:50: Urine Color Yellow, Urine Clarity Sl. Cloudy, Urine pH 6.0, Ur Specific [place] 1.010, Urine Protein 100 H, Urine Glucose (UA) Normal, Urine Ketones Negative, Urine Occult Blood 50 H, Urine Nitrite Negative, Urine Bilirubin Negative, Urine Urobilinogen Normal, Ur Leukocyte Esterase Negative, Urine RBC 0-5 SEEN, Urine WBC 0 SEEN 05/08/24 20:05: PT 17.6 H, INR 1.5, APTT 33.1, Phosphorus 3.3, Magnesium 1.1 L 05/08/24 20:09: pH 7.27 L, Bicarbonate Actual 17.7 L, Base Excess -9 L, O2 Saturation 99, ABG pCO2 39.0, ABG pO2 170 H, Rafa Test Positive 05/08/24 21:48: Lactic Acid 6.5 H* 05/08/24 22:50: pH 7.34 L, Bicarbonate Actual 12.6 L, Base Excess -13 L, O2 Saturation 97, ABG pCO2 23.3 L, ABG pO2 88, Rafa Test Positive 05/09/24 01:20: Lactic Acid 6.0 H* 05/09/24 02:30: WBC 22.4 H, RBC 4.78, Hgb 13.5, Hct 42.6, MCV 89.1, MCH 28.2, MCHC 31.7 L, Plt Count 146 L, MPV 11.2, Immature Gran % (Auto) 2.400 H, Neut % (Auto) 93.5 H, Lymph % (Auto) 2.9 L, [place] % (Auto) 0.8, Eos % (Auto) 0.1, Baso % (Auto) 0.3, Absolute Neuts (auto) 20.9 H, Nucleated RBC % 0.2, Sodium 140, Potassium 3.9, Chloride 111 H, Carbon Dioxide 14.0 L, Anion Gap 15, BUN 47 H, Creatinine 2.66 H, Est GFR (MDRD) Af Amer 22 L, Est GFR (MDRD) Non-Af 19 L, BUN/Creatinine Ratio 17.7, Glucose 127 H, Hemoglobin A1c 6.3 H, Calcium 7.8 L, Triglycerides 148, Cholesterol 126, LDL Cholesterol 65, VLDL Cholesterol 30, HDL Cholesterol 31 L 05/09/24 03:17: pH 7.32 L, Bicarbonate Actual 11.5 L, Base Excess -15 L, O2 Saturation 96, ABG pCO2 22.5 L, ABG pO2 90, Rafa Test Positive 05/09/24 03:55: APTT 77.0 H 05/09/24 05:45: Lactic Acid 4.8 H* Rhythm: EKG: ECHO: Stress Test: Cardiac Cath: PCI: CT Surgery: Holter monitor: EPS: PPM: CXR: Chest CT Scan: Radiography Diagnostic Testing: Radiology Impression Chest X-Ray 05/08/24 14:05 IMPRESSION: No radiographic evidence of acute cardiopulmonary disease. Electronically Signed: Roel Peter MD at 14:26 EDT , Abdomen/Pelvis CT 05/08/24 15:10 IMPRESSION: 1. Mild left hydronephrosis with extensive perinephric stranding likely due to 2 mm stone in the proximal left ureter. Superimposed pyelonephritis cannot be excluded. 2. Umbilical hernia containing small bowel loops without evidence of bowel obstruction. 3. Surgical anastomosis sutures in the mid transverse colon. Electronically Signed: Roel Peter MD at 15:40 EDT , Brain CT 05/08/24 20:03 IMPRESSION: Chronic microvascular ischemic changes. No CT evidence of acute intracranial pathology. Electronically Signed: Jad Howard DO at 20:36 EDT , Chest X-Ray 05/08/24 20:55 IMPRESSION: 1. Borderline enlargement of the cardiac silhouette perhaps indicative of cardiomegaly rather than pericardial effusion. 2. Endotracheal tube is well-positioned, 3.2 cm above the [place]. Other tubes and lines as above. 3. Hyperinflated lungs without focal airspace disease perhaps secondary to COPD. Electronically Signed: Jad Howard, at 21:25 EDT , KUB X-Ray 05/08/24 20:55 IMPRESSION: Enteric tube tip is well below the level of the GE junction. Otherwise, the examination is limited due to technique and patient body habitus. Electronically Signed: Jad Howard DO at 21:24 EDT ,
[2024-05-09] MEDS: Phenylephrine 10 MG in 0.9% Normal Saline (250mL Bag) 249 ML 210 MG CONT INF ×3 (09:08→11:41)
--- NOTE | 2024-05-09 10:04 | CON.PCM.ID_ITS ---
Assessment & Plan Assessment/Plan (1) Septic shock: PLAN: due to GNR bacteremia from pyelo and L sided hydro. L ureteral stent placed by Dr. Wolfe 05/09/24. Will repeat ucx. Cont vanc/kenroy, likely can stop vanc soon. On vent and 3 pressors. Will follow, thank you, d/w Dr. Robertson (2) History of ovarian cancer: (3) Hydronephrosis concurrent with and due to calculi of kidney and ureter: (4) Bacteremia due to Gram-negative bacteria: HPI Consult Data Date of Consult: 05/09/24 HPI Narrative Reason for Consultation: septic shock HPI Narrative: ANDREW VELAZQUEZ, is a 78 F with h/o DM, ovarian cancer, port in place, COPD, presented to ED 05/08 with acute onset fever, chills, flank pain. Daughter reports 05/05, pt c/o some sore throat. No recent uti or abx. Came to ED, found to be hypotensive, febrile. Admitted to icu on vanc/kenroy, 3 pressors, and vent. Taken to OR this AM by urology for L stent placement. ROS unobtainable due to intubation. [facility] Medical History Depression Diabetes Kidney stones Non-smoker CPAP (continuous positive airway pressure) dependence Congestive heart failure (CHF) Myocardial infarct OAB (overactive bladder) Atypical chest pain Urinary frequency Breast cancer screening Grief reaction Non-rheumatic tricuspid valve insufficiency Non-rheumatic mitral regurgitation History of cardioversion (~06/28/22) Chronic atrial fibrillation with RVR Obstructive sleep apnea Chronic obstructive pulmonary disease Depression Preop cardiovascular exam Port-A-Cath in place Ovarian cancer Pelvic mass Ascites Diarrhea Abdominal pain Flu vaccine need Vitamin D deficiency Essential hypertension Diastolic congestive heart failure Atherosclerotic heart disease of [place] coronary artery without angina pectoris Long-term use of high-risk medication SOB (shortness of breath) Pulmonary HTN Panic disorder Hiatal hernia Debility Paroxysmal atrial fibrillation with rapid ventricular response Streptococcal pneumonia Acute exacerbation of chronic obstructive pulmonary disease (COPD) Acute respiratory failure with hypoxia and hypercarbia NSTEMI (non-ST elevated myocardial infarction) Sepsis Junctional rhythm Spastic colon Morbid obesity PAF (paroxysmal atrial fibrillation) HLD (hyperlipidemia) CAD (coronary artery disease) Anxiety DM2 (diabetes mellitus, type 2) Hypokalemia Home Medications ?Medication ?Instructions ?Recorded ?Last Taken ?Type compress.stocking,knee,reg,lrg #2 ea 05/06/19 Unknown Rx lancing device #1 ea 12/29/20 Unknown Rx docusate sodium 100 mg capsule 100 mg PO BID PRN Constipation 05/04/22 Unknown History (Colace) albuterol sulfate 90 mcg/actuation 1 inh inhalation ONCE PRN SOB 05/23/22 Unknown History aerosol inhaler (Ventolin HFA) loperamide 2 mg tablet 2 mg PO Q6H PRN Diarrhea 06/27/22 Unknown History multivitamin 1 tab PO DAILY 11/25/22 Unknown History furosemide 40 mg tablet 20 mg PO PRN SWELLING 02/22/23 Unknown History hydrochlorothiazide 25 mg tablet 25 mg PO DAILY #90 tabs 03/29/23 Unknown Rx ibandronate 150 mg tablet 150 mg PO QMONTH #14 tabs 06/09/23 Unknown Rx spironolactone 25 mg tablet 25 mg PO DAILY #90 tabs 10/06/23 Unknown Rx doxazosin 2 mg tablet 2 mg PO QHS #30 tabs 10/23/23 Unknown Rx bevacizumab 25 mg/mL intravenous mg intravitreal MONTHLY CHEMO 11/24/23 Unknown History solution (Avastin) buspirone 10 mg tablet 20 mg (2 x 10 mg) PO TID 3 months 12/13/23 Unknown Rx #540 TABLETS fluticasone 500 mcg-salmeterol 50 1 inh inhalation BID #3 ea 02/01/24 Unknown Rx mcg/dose blistr powdr for inhalation (Wixela Inhub) ezetimibe 10 mg tablet (Zetia) 10 mg PO QDAY cholesterol #90 tabs 02/06/24 Unknown Rx amlodipine 5 mg tablet 5 mg PO BID #180 tabs 02/21/24 Unknown Rx pantoprazole 40 mg tablet,delayed 40 mg PO BID GERD #180 tabs 03/12/24 Unknown Rx release magnesium oxide 400 mg PO DAILY supplement 03/22/24 Unknown History metformin 500 mg tablet 500 mg PO BID #180 tabs 03/29/24 Unknown Rx sotalol 120 mg tablet 120 mg PO DAILY heart #180 tabs 04/10/24 Unknown Rx oxybutynin chloride 10 mg 10 mg PO DAILY #90 tabs 04/15/24 Unknown Rx tablet,extended release 24 hr apixaban 5 mg tablet (Eliquis) 5 mg PO BID #180 tabs 04/22/24 Unknown Rx fenofibrate micronized 134 mg 134 mg PO QPM #90 caps 04/25/24 Unknown Rx capsule lisinopril 20 mg tablet 20 mg PO BID #200 TABLETS 04/30/24 Unknown Rx cholecalciferol (vitamin D3) 1,250 50,000 unit PO FR supplement 05/08/24 Unknown History mcg (50,000 unit) tablet duloxetine 60 mg capsule,delayed 60 mg PO DAILY #90 caps 05/08/24 Unknown Rx release lorazepam 0.5 mg tablet (Ativan) 0.5 mg PO BID PRN Anxiety #30 tabs 05/08/24 Unknown Rx Allergy/AdvReac Type Severity Reaction Status Date / Time amoxicillin Allergy Severe hives Verified 05/08/24 12:53 chlorhexidine Allergy Unknown red skin Verified 05/08/24 12:53 morphine Allergy Unknown headaches Verified 05/08/24 12:53 labetalol Allergy Unknown Verified 05/08/24 12:53 pitavastatin (From Livalo) Allergy Other Verified 05/08/24 12:53 simvastatin (From Zocor) Allergy Other Verified 05/08/24 12:53 atorvastatin (From Lipitor) AdvReac Unknown myalgias Verified 05/08/24 12:53 budesonide (From Symbicort) AdvReac Other Verified 05/08/24 12:53 formoterol (From Symbicort) AdvReac Other Verified 05/08/24 12:53 hydrocodone (From Vicodin) AdvReac Other Verified 05/08/24 12:53 Cwnmveh-EQJ-GyC Reductase AdvReac Other Verified 05/08/24 12:53 Inhibitor (Uvjxzqb-Wvm-Wdj Reductase Inhibitor) Family History Mother Cancer leukemia Father Respiratory disease Grandfather Myocardial infarction Grandmother Myocardial infarction Son Diabetes Surgical History Hx of prior ablation treatment Status post catheter ablation of atrial fibrillation History of hysterectomy History of exploratory laparotomy History of cataract surgery History of tonsillectomy and adenoidectomy History of surgery on right wrist History of colonoscopy Social History household members: spouse and children Smoking Status: Never smoker alcohol intake: never substance use type: does not use caffeine: Yes Type: coffee Number of servings: 1 what type of physical activity do you participate in: none seatbelt use: always do you feel safe at home: Yes Physical Exam Const no apparent distress General Appearance: lethargic HEENT normocephalic and head/scalp atraumatic Eyes PERRL and EOMs intact bilaterally Neck supple and No nodes Resp normal air movement and clear to auscultation bilaterally Cardio no murmurs Rate: tachycardic GI soft to palpation, non-tender and non-distended Extremity General Extremity: edema Skin no rashes or lesions noted Neuro CN's II-XII intact bilaterally Lab / Micro Data Attestation: I reviewed the patient's lab results. 05/09/24 02:30 05/09/24 02:30 Labs: Laboratory Results - last 24 hr 05/08/24 13:25: WBC 5.1, RBC 5.62 H, Hgb 15.6 H, Hct 49.5 H, MCV 88.1, MCH 27.8, MCHC 31.5 L, RDW Std Deviation 45.4 H, RDW Coeff of Nabor 14.3, Plt Count 237, MPV 10.3, Immature Gran % (Auto) 1.400 H, Neut % (Auto) 92.5 H, Lymph % (Auto) 4.3 L , [place] % (Auto) 0.6, Eos % (Auto) 0.6, Baso % (Auto) 0.6, Absolute Neuts (auto) 4.7, Absolute Lymphs (auto) 0.22 L, Nucleated RBC % 0, Differential Comment SCANNED, Reactive Lymphocytes 1+, PT 15.2 H, INR 1.2, APTT 25.0, Sodium 139, Potassium 4.2, Chloride 106, Carbon Dioxide 23.0, Anion Gap 10, BUN 42 H, C reatinine 1.46 H, Estim Creat Clear Calc 38.08, Est GFR (MDRD) Af Amer 45 L, Est GFR (MDRD) Non-Af 37 L, BUN/Creatinine Ratio 28.8 H, Glucose 138 H, Lactic Acid 1.9, Calcium 9.3, Total Bilirubin 0.80, AST 31, ALT 28, Alkaline Phosphatase 76, Total Creatine Kinase 77, Troponin I High Sens 24, Total Protein 7.1, Albumin 3.5, Globulin 3.6, Albumin/Globulin Ratio 1.0, Triglycerides 189 05/08/24 13:50: Urine Color Yellow, Urine Clarity Sl. Cloudy, Urine pH 6.0, Ur Specific [place] 1.010, Urine Protein 100 H, Urine Glucose (UA) Normal, Urine Ketones Negative, Urine Occult Blood 50 H, Urine Nitrite Negative, Urine Bilirubin Negative, Urine Urobilinogen Normal, Ur Leukocyte Esterase Negative, Urine RBC 0-5 SEEN, Urine WBC 0 SEEN, Ur Squamous Epith Cells 0-5 SEEN, Urine Bacteria 0 SEEN, Urine Mucus 0 SEEN 05/08/24 20:05: PT 17.6 H, INR 1.5, APTT 33.1, Phosphorus 3.3, Magnesium 1.1 L, Ammonia 27.0, Troponin I High Sens 424 H* 05/08/24 21:48: Lactic Acid 6.5 H* 05/08/24 22:07: POC Glucose 119 H 05/08/24 23:15: Troponin I High Sens 1478 H* 05/09/24 01:20: Lactic Acid 6.0 H* 05/09/24 02:30: WBC 22.4 H, RBC 4.78, Hgb 13.5, Hct 42.6, MCV 89.1, MCH 28.2, M CHC 31.7 L, RDW Std Deviation 47.9 H, RDW Coeff of Nabor 14.7 H, Plt Count 146 L, MPV 11.2, Immature Gran % (Auto) 2.400 H, Neut % (Auto) 93.5 H, Lymph % (Auto) 2.9 L, [place] % (Auto) 0.8, Eos % (Auto) 0.1, Baso % (Auto) 0.3, Absolute Neuts (auto) 20.9 H, Absolute Lymphs (auto) 0.66 L, Nucleated RBC % 0.2, Differential Comment SCANNED, Plt Morphology Comment LARGE, Sodium 140, Potassium 3.9, C hloride 111 H, Carbon Dioxide 14.0 L, Anion Gap 15, BUN 47 H, Creatinine 2.66 H, Estim Creat Clear Calc 20.10, Est GFR (MDRD) Af Amer 22 L, Est GFR (MDRD) Non-Af 19 L, BUN/Creatinine Ratio 17.7, Glucose 127 H, Hemoglobin A1c 6.3 H, Calcium 7.8 L, Troponin I High Sens 1395 H*, Triglycerides 148, Cholesterol 126, LDL Cholesterol 65, VLDL Cholesterol 30, HDL Cholesterol 31 L 05/09/24 02:37: POC Glucose 109 H 05/09/24 03:55: APTT 77.0 H 05/09/24 05:45: Lactic Acid 4.8 H* Micro: Microbiology 05/09/24 02:02 Sputum, Induced/Lukens Gram Stain - Final 05/08/24 13:25 Blood Culture (Wb) - Anticubital Left Blood Culture - Preliminary Gram negative scarlett 05/09/24 01:00 Stool Enteric Bacteriology - Final 05/09/24 01:00 Stool Clostridioides difficile (PCR) - Final 05/08/24 13:25 Mucosa - Nose SARS-CoV-2, Influenza & RSV (PCR) - Final ABG Data ABG results: ABG 05/08/24 05/08/24 05/09/24 20:09 22:50 03:17 Specimen Type ART ART ART Sample Site L Radial R Radial R Radial pH 7.27 L 7.34 L 7.32 L Bicarbonate Actual 17.7 L 12.6 L 11.5 L Total CO2 19 13 12 Base Excess -9 L -13 L -15 L O2 Saturation 99 97 96 O2 % 15.0 30.0 25.0 ABG pCO2 39.0 23.3 L 22.5 L ABG pO2 170 H 88 90 Rafa Test Positive Positive Positive Respiration Rate 12 28 O2 Delivery Device NRB Adult Vent Adult Vent Vent Mode Not entered AC AC Tidal Volume 450.0 450.0 POC PEEP 5 5 Rhythm Strip Rhythm Strip: Sinus Rhythm Rate: 66 Imaging Radiology Impression Chest X-Ray 05/08/24 14:05 IMPRESSION: No radiographic evidence of acute cardiopulmonary disease. Electronically Signed: Roel Peter MD at 14:26 EDT , Abdomen/Pelvis CT 05/08/24 15:10 IMPRESSION: 1. Mild left hydronephrosis with extensive perinephric stranding likely due to 2 mm stone in the proximal left ureter. Superimposed pyelonephritis cannot be excluded. 2. Umbilical hernia containing small bowel loops without evidence of bowel obstruction. 3. Surgical anastomosis sutures in the mid transverse colon. Electronically Signed: Roel Peter MD at 15:40 EDT , Brain CT 05/08/24 20:03 IMPRESSION: Chronic microvascular ischemic changes. No CT evidence of acute intracranial pathology. Electronically Signed: Jad CastillojaimenaseemDO at 20:36 EDT , Chest X-Ray 05/08/24 20:55 IMPRESSION: 1. Borderline enlargement of the cardiac silhouette perhaps indicative of cardiomegaly rather than pericardial effusion. 2. Endotracheal tube is well-positioned, 3.2 cm above the [place]. Other tubes and lines as above. 3. Hyperinflated lungs without focal airspace disease perhaps secondary to COPD. Electronically Signed: Jad CastilloDO nayeli at 21:25 EDT , KUB X-Ray 05/08/24 20:55 IMPRESSION: Enteric tube tip is well below the level of the GE junction. Otherwise, the examination is limited due to technique and patient body habitus. Electronically Signed: Jad Mehta DO Anita at 21:24 EDT ,
--- NOTE | 2024-05-09 10:14 | CASEMGMT ---
RN CM Assessment Face to Face with patient for initial transition planning/care coordination assessment. Pt is currently on the ventilator and is unable to answer this RN CM questions accordingly. Pt Daughter, Olivia, at bedside and willing to help answer this RN CM questions for assessment. Care providers, pharmacy, and demographics verified. Admitting dx: Lt Hydronephritis and Pyelonephritis LACE Strata: 3 PCP: Felicita Specialists: Rosendo Robertson (Pulm), Napoleon ([facility]), Gabriela (Oncology), Xiao (Cardio -[facility]) Preferred Pharmacy: [facility] [place] Insurance: [facility] [employer] ADV Prescription Benefit: Yes LNOK: Olivia Chisholm ([place]) Living Arrangements: Pt lives with her son and daughter in a two story home with 3 steps to enter ADLs/IADLs: Pt daughter states that the pt cooks and does dishes, but the pt son and daughter assist with many other IADLs Transportation: [facility] Van. Daughter DME: PAP and supplies through [employer] but no oxygen equipment. Pox. Nebulizer. Shower chair. Raised TS. Grab bars. FWW. W/C HHC/SNF: Hx with [facility] HH and [facility] TCU. Pt is active with [facility] Plan: TBD. Follow therapy and oxygen needs. Today is VD#2. Per ICU rounds, PT is to be held today. CM and SW to follow. Rishabh Cast RN, CM
[2024-05-09 10:32] LABS: Bedside Glucose 134 mg/dL (74-106)
[2024-05-09] MEDS: Acetaminophen 325 MG Tablet 650 MG GT ×2 (11:21→18:13)
[2024-05-09 11:36] LABS: Base Excess -17 mmol/L (-2 to +2); Bicarbonate 10.5 mmol/L (22-26); Blood Gas Specimen Type ART; Mode AC; O2 Delivery Device Adult Vent; PEEP 5; PO2 85 mmHG (75-100); RR 16; SITE Art Line; SO2 95 % (95-99); Total Carbon Dioxide 11 mmol/L; pCO2 23.6 mmHg (35-45); pH 7.26 (7.35-7.45)
[2024-05-09 12:06] LABS: Partial Thromboplast Time 94.8 Seconds (24.1-36.2)
[2024-05-09] MEDS: Norepinephrine 16 mg/250 mL 0.9% NS 28.1 MG CONT INF (12:19)
[2024-05-09] MEDS: fentaNYL drip 100 ML 12.5 MCG CONT INF (12:30)
--- NOTE | 2024-05-09 12:50 | EKG12_ITS ---
Test Reason : gen Blood Pressure : / mmHG Vent. Rate : 095 BPM Atrial Rate : 095 BPM P-R Int : 130 ms QRS Dur : 094 ms QT Int : 364 ms P-R-T Axes : 070 063 080 degrees QTc Int : 457 ms Normal sinus rhythm Nonspecific ST abnormality Abnormal ECG Confirmed by Bryce Bender ([id number]), newspaper editor managing MONTY ARIZMENDI ([id number]) on 05/10/2024 1:28:50 PM Referred By: Confirmed By:Bryce Bender
[2024-05-09] MEDS: Phenylephrine 40 mg/250 mL 0.9% NS 67.5 MG CONT INF (12:52)
--- NOTE | 2024-05-09 12:55 | EKG12_ITS ---
Test Reason : afib Blood Pressure : / mmHG Vent. Rate : 104 BPM Atrial Rate : 000 BPM P-R Int : 000 ms QRS Dur : 088 ms QT Int : 402 ms P-R-T Axes : 000 051 038 degrees QTc Int : 528 ms Atrial fibrillation with rapid ventricular response Prolonged QT Abnormal ECG Confirmed by Bryce Bender ([id number]), advertising editor MONTY ARIZMENDI ([id number]) on 05/10/2024 1:48:33 PM Referred By: Marcelo Confirmed By:Bryce Bender
--- NOTE | 2024-05-09 13:40 | CHAPLAIN ---
Type of Pastoral Visit _x__ Initial Visit ___ Follow-up Visit ___ On-call Visit ___ General Patient Visit ___ Spiritual Assessment ___ Family Conference ___ Bereavement ___ Rapid Response ___ Code Blue ___ Other (describe below) Pastoral Care Referral From ___ Patient _x__ Family ___ Nurse ___ Physician ___ X Ray Technician ___ Secondary Connector Armature ___ Other (describe below) Sacrament/Intervention _x__ Active listening ___ Anointing ___ Pentecostalism ___ Bereavement ___ Communion ___ Gisselle exploration ___ ___ Life review _x__ Prayer ___ Reconciliation ___ Sacrament of Sick _x__ Supportive presence ___ Wedding ___ Other (describe below) Pastoral Comments patient is on the vent; daughter and granddaughter are in the room at bedside; offer of presence and support given; daughter reviews some of the pt's health needs and her concerns about getting well or not; family answers questions given but do not initiate their own conversation with the hospital plan administrator; daughter does welcome a prayer and acknowledges that pt has a gisselle community and connection
--- NOTE | 2024-05-09 14:38 | PN_ITS ---
Subjective Subjective Patient seen and examined. Her daughter and son as well as granddaughter by bedside. Patient is intubated but alert. She denies being in pain. She is on Levophed, vasopressin and phenylephrine. She is tachycardic and tachypneic and also having fever. Unable to do a more comprehensive review of systems. Objective Data Objective Data Vital Signs: Vital Signs Temp Pulse Resp BP Pulse Ox O2 Del Method O2 Flow Rate 102.7 F H 111 H 22 H 122/58 H 97 Mechanical Ventilator 3 05/09/24 14:00 05/09/24 14:00 05/09/24 14:00 05/09/24 14:00 05/09/24 14:00 05/09/24 14:00 05/08/24 18:52 FiO2 25 05/09/24 14:00 Oxygen Flow Rate (L/min) 3 Oxygen Delivery Method Mechanical Ventilator Weight: 224 lb 4.808 oz Body Mass Index (BMI) 41.0 Intake & Output: Intake and Output for Last 24 Hours 05/07/24 05/08/24 05/09/24 23:59 23:59 23:59 Intake Total 2334.81 / 2353.89 5082.45 / 5082.45 Output Total 50 / 50 70 / 70 Balance 2284.81 / 2303.89 5012.45 / 5012.45 Lab / Micro Data 05/09/24 02:30 05/09/24 02:30 Labs: Laboratory Results - last 24 hr 05/08/24 13:25: Total Creatine Kinase 77, Triglycerides 189 05/08/24 20:05: PT 17.6 H, INR 1.5, APTT 33.1, Phosphorus 3.3, Magnesium 1.1 L, Ammonia 27.0, Troponin I High Sens 424 H* 05/08/24 21:48: Lactic Acid 6.5 H* 05/08/24 22:07: POC Glucose 119 H 05/08/24 23:15: Troponin I High Sens 1478 H* 05/09/24 01:20: Lactic Acid 6.0 H* 05/09/24 02:30: WBC 22.4 H, RBC 4.78, Hgb 13.5, Hct 42.6, MCV 89.1, MCH 28.2, M CHC 31.7 L, RDW Std Deviation 47.9 H, RDW Coeff of Nabor 14.7 H, Plt Count 146 L, MPV 11.2, Immature Gran % (Auto) 2.400 H, Neut % (Auto) 93.5 H, Lymph % (Auto) 2.9 L, [place] % (Auto) 0.8, Eos % (Auto) 0.1, Baso % (Auto) 0.3, Absolute Neuts (auto) 20.9 H, Absolute Lymphs (auto) 0.66 L, Nucleated RBC % 0.2, Differential Comment SCANNED, Plt Morphology Comment LARGE, Sodium 140, Potassium 3.9, C hloride 111 H, Carbon Dioxide 14.0 L, Anion Gap 15, BUN 47 H, Creatinine 2.66 H, Estim Creat Clear Calc 20.10, Est GFR (MDRD) Af Amer 22 L, Est GFR (MDRD) Non-Af 19 L, BUN/Creatinine Ratio 17.7, Glucose 127 H, Hemoglobin A1c 6.3 H, Calcium 7.8 L, Troponin I High Sens 1395 H*, Triglycerides 148, Cholesterol 126, LDL Cholesterol 65, VLDL Cholesterol 30, HDL Cholesterol 31 L 05/09/24 02:37: POC Glucose 109 H 05/09/24 03:55: APTT 77.0 H 05/09/24 05:45: Lactic Acid 4.8 H* 05/09/24 08:30: POC Glucose 134 H 05/09/24 11:30: APTT 94.8 H* Micro: Microbiology 05/08/24 13:50 Urine, Clean Catch Urine Culture - Preliminary Presumptive E. coli 05/09/24 02:02 Sputum, Induced/Lukens Gram Stain - Final 05/08/24 13:25 Blood Culture (Wb) - Anticubital Left Blood Culture - Preliminary Gram negative scarlett 05/09/24 01:00 Stool Enteric Bacteriology - Final 05/09/24 01:00 Stool Clostridioides difficile (PCR) - Final 05/08/24 13:25 Mucosa - Nose SARS-CoV-2, Influenza & RSV (PCR) - Final ABG Data ABG results: ABG 05/08/24 05/08/24 05/09/24 20:09 22:50 03:17 Specimen Type ART ART ART Sample Site L Radial R Radial R Radial pH 7.27 L 7.34 L 7.32 L Bicarbonate Actual 17.7 L 12.6 L 11.5 L Total CO2 19 13 12 Base Excess -9 L -13 L -15 L O2 Saturation 99 97 96 O2 % 15.0 30.0 25.0 ABG pCO2 39.0 23.3 L 22.5 L ABG pO2 170 H 88 90 Rafa Test Positive Positive Positive Respiration Rate 12 28 O2 Delivery Device NRB Adult Vent Adult Vent Vent Mode Not entered AC AC Tidal Volume 450.0 450.0 POC PEEP 5 5 05/09/24 11:32 Specimen Type ART Sample Site Art Line pH 7.26 L Bicarbonate Actual 10.5 L Total CO2 11 Base Excess -17 L O2 Saturation 95 O2 % 25.0 ABG pCO2 23.6 L ABG pO2 85 Rafa Test Respiration Rate 16 O2 Delivery Device Adult Vent Vent Mode AC Tidal Volume 450.0 POC PEEP 5 Radiography Diagnostic Testing: Radiology Impression Chest X-Ray 05/08/24 14:05 IMPRESSION: No radiographic evidence of acute cardiopulmonary disease. Electronically Signed: Roel Peter MD at 14:26 EDT , Abdomen/Pelvis CT 05/08/24 15:10 IMPRESSION: 1. Mild left hydronephrosis with extensive perinephric stranding likely due to 2 mm stone in the proximal left ureter. Superimposed pyelonephritis cannot be excluded. 2. Umbilical hernia containing small bowel loops without evidence of bowel obstruction. 3. Surgical anastomosis sutures in the mid transverse colon. Electronically Signed: Roel Peter MD at 15:40 EDT , Brain CT 05/08/24 20:03 IMPRESSION: Chronic microvascular ischemic changes. No CT evidence of acute intracranial pathology. Electronically Signed: Jad Howard DO at 20:36 EDT , Chest X-Ray 05/08/24 20:55 IMPRESSION: 1. Borderline enlargement of the cardiac silhouette perhaps indicative of cardiomegaly rather than pericardial effusion. 2. Endotracheal tube is well-positioned, 3.2 cm above the [place]. Other tubes and lines as above. 3. Hyperinflated lungs without focal airspace disease perhaps secondary to COPD. Electronically Signed: Jad Howard, at 21:25 EDT , KUB X-Ray 05/08/24 20:55 IMPRESSION: Enteric tube tip is well below the level of the GE junction. Otherwise, the examination is limited due to technique and patient body habitus. Electronically Signed: Jad Howard, at 21:24 EDT , Rhythm Strip Rhythm Strip: Sinus Rhythm Rate: 66 Physical Exam Const alert Orientation / Consciousness: lethargic HEENT normocephalic and head/scalp atraumatic Mouth: dry mucous membranes Eyes PERRL and EOMs intact bilaterally Neck no lymphadenopathy, supple and no JVD Lymph Lymphatic: no lymphadenopathy noted Resp Resp Narrative: intubated, alert, RASS score is 0, diminished breath sounds bibasally, no wheezes or crackles. Effort and Inspection: tachypneic Cardio S1 normal heart sound, S2 normal heart sound and no murmurs Cardio Narrative: tachypneic GI normal to inspection, nondistended, normoactive bowel sounds, soft to palpation, non-tender and non-distended Extremity normal capillary refill, no clubbing, cyanosis or edema and no calf tenderness General Extremity: no tenderness to palpation of joints or extremities Skin General Skin Exam: no breakdown Neuro CN's II-XII intact bilaterally and no focal motor deficits Motor Exam: general weakness Psych Psych Narrative: lethargic, intubated, RASS is 0 Assessment & Plan Assessment/Plan (1) Bacteremia due to Gram-negative bacteria: (2) Septic shock: (3) Elevated troponin: PLAN: Plan #Septic shock * Likely due to infected kidney stone and left-sided pyelonephritis. * CT of the abdomen showed 2 mm stone in the proximal left ureter with extensive perinephric stranding and mild left hydronephrosis * she is s/p cystoscopy with stent placement in the proximal left ureter * Patient now on Levophed, vasopressin and phenylephrine. * Critical care and urology on board. ID also on board. On IV meropenem and vancomycin * Patient tachycardic and tachypneic. He is also febrile. Blood and urine cultures pending * Titrate vasopressors to maintain MAP more than 65 * Blood cultures growing gram-negative rods #Acute hypoxic respiratory failure * A CODE BLUE was called the patient still had a pulse so was changed to a rapid response. She was breathing rapidly. CT of the brain showed no acute intracranial pathology. * Was intubated to protect airway. She remains intubated. Per critical care to attempt extubation likely tomorrow * Breathing treatments and bronchodilators. * #Non-STEMI * Patient noted to have markedly elevated troponins. Cardiology was therefore consulted. * She is to have 2D echo and then further recommendations per cardiology. * Currently on heparin drip * Likely due to demand ischemia from septic shock * On aspirin * #ROSANA on CKD with anion gap metabolic acidosis * Creatinine is up to 2.66. Bicarb is 14 anion gap is 15. She is on bicarb drip. Creatinine further trend supports consult nephrology. * This is likely prerenal due to the septic shock. * #Lactic acidosis: Likely due to the septic shock. Also contributing to the anion gap metabolic acidosis. Should improve as shock resolves. #COPD: Not in exacerbation. Currently intubated. Breathing treatments bronchodilators #A-fib: sotalol on hold. Eliquis also on hold and currently on heparin drip #Type 2 diabetes mellitus: Currently n.p.o. as she is intubated. Insulin sliding scale. Accu-Cheks every 6 hours #History of ovarian cancer: On Avastin. To follow with Dr. Ochoa on discharge #CAD: has known EF of 60% #heart failure preserved ejection fraction: has known EF of 60%. Stable. Lasix on hold DVT prophylaxis: Not indicated as she is on heparin drip Charges/Coding Visit Charges Inpatient E&M: 50557 Subs Hosp L3 Procedures Hospitalists Procedures: 45784 Advncd Care Plan 30 Min
[2024-05-09] MEDS: Phenylephrine 40 mg/250 mL 0.9% NS 30 MG CONT INF (16:25)
--- NOTE | 2024-05-09 16:30 | NUR.TO.PHY ---
Cooling blanket has been on, ice packs on neck and groin, and fan on
[2024-05-09 17:30] LABS: Bedside Glucose 101 mg/dL (74-106)
[2024-05-09] MEDS: Ipratropium/Albuterol Sulfate 3 ML AMPUL.NEB INHALATION (17:48)
[2024-05-09] MEDS: fentaNYL drip 100 ML 15 MCG CONT INF (18:40)
[2024-05-09 19:15] LABS: Partial Thromboplast Time 82.6 Seconds (24.1-36.2)
[2024-05-09] MEDS: Pantoprazole Sodium 40 MG in 0.9% Normal Saline (100mL MB+) 100 ML 330 MG IV (20:36)
[2024-05-09] MEDS: Norepinephrine 16 mg/250 mL 0.9% NS 23.4 MG CONT INF (21:54)
[2024-05-10] VITALS (59 sets, daily range): BP systolic 84–150; BP diastolic 45–86; PULSE 83–116; RESP 16–25; TEMP 37.2–38.7; O2SAT 93–100; BMI 46.0
[2024-05-10 00:45] LABS: Bedside Glucose 117 mg/dL (74-106)
[2024-05-10] MEDS: Propofol 10MG/Ml 1,000 MG/100 ML Bottle 6.1 MG CONT INF (01:05)
[2024-05-10] MEDS: Vancomycin HCl 1,500 MG in 0.9% Normal Saline (500mL Bag) 500 ML 250 MG IV (01:29)
[2024-05-10] MEDS: fentaNYL drip 100 ML 15 MCG CONT INF (01:29)
[2024-05-10 02:33] LABS: Hemoglobin 13.5 g/dL (12.0-15.0); Mean Corp Hgb Conc 32.9 g/dL (32-36); Mean Corpuscular Hgb 28.4 pg (27.0-32.0); Mean Corpuscular Volume 86.1 fL (81-99); Mean Platelet Vol. 11.6 fl (6.2-12.0); POSITIVE COUNT YES; POSITIVE DIFFERENTIAL YES; POSITIVE MORPHOLOGY YES; Platelet Count 64 K/mm3 (150-450); RBC Distribution Width CV 15.4 % (11.6-14.6); RBC Distribution Width SD 48.5 fl (35.1-43.9); Red Blood Count 4.76 M/mm3 (4.2-5.4)
[2024-05-10 02:43] LABS: Partial Thromboplast Time 62.5 Seconds (24.1-36.2)
[2024-05-10 03:02] LABS: Differential Indicated MANUAL DIFF; White Blood Count 33.8 K/mm3 (4.4-11.0)
[2024-05-10 03:08] LABS: ALB/GLOB Ratio 0.8 RATIO (0.9-2.4); AST(SGOT) 3355 U/L (15-37); Alanine Aminotransfer ALT/SGPT 1743 U/L (13-56); Albumin, Serum 2.2 g/dL (3.2-5.0); Alkaline Phosphatase 106 U/L (45-117); Anion Gap 14 (5-15); BUN 56 mg/dL (7-18); BUN/Creat Ratio 21.3 RATIO (10-20); Calcium,Total 6.7 mg/dL (8.5-10.1); Chloride 108 mmol/L (98-107); Creatinine, Serum 2.63 mg/dL (0.55-1.02); EST Glomerular Filtration Rate 19 mL/min (>60); Est Glom Filt Rate - Afr Amer 23 mL/min (>60); Estimated Creatinine Clearance 20.33 ml/min; Globulin 2.9 g/dL (2.2-4.2); Glucose 156 mg/dL (74-106); Potassium 4.1 mmol/L (3.5-5.1); Protein, Total 5.1 g/dL (6.4-8.2); Sodium Level 138 mmol/L (136-145)
[2024-05-10 03:21] LABS: Lymphocyte 7 % (19-41); Metamyelocyte 4 % (0-1); Monocyte 5 % (0-10); Myelocyte 4 % (0-0); Neutrophil-Band 44 % (0-5); Neutrophil-Segmented 36 % (47-70); Total Cells Counted 100 (MANUAL DIFF)
[2024-05-10 03:22] LABS: Burr Cells RARE; Platelet Estimate MOD DEC (ADEQ)
[2024-05-10 03:23] LABS: Absolute Lymphocyte Count 2.36 X10^3/uL (0.83-4.51)
[2024-05-10] MEDS: Sodium Bicarbonate 150 MEQ in Dextrose 5%-Water (1000mL Bag) 1,000 ML 100 MEQ IV (03:56)
[2024-05-10] MEDS: CHLORHEXIDINE GLUC 2% CLOTH 1 EACH TOWELETTE TOPICAL (03:56)
[2024-05-10] MEDS: Nystatin Powder 15gm Bottle 1 APPLIC TOPICAL ×3 (05:09→20:50)
[2024-05-10] MEDS: Hydrocortisone Sod Succinate 100 MG/2 ML Vial IV ×3 (05:10→20:49)
[2024-05-10] MEDS: busPIRone 5 MG Tablet 20 MG GT ×3 (05:10→20:50)
[2024-05-10 05:37] LABS: Bedside Glucose 105 mg/dL (74-106)
[2024-05-10] MEDS: Vasopressin 20 UNITS in 0.9% Normal Saline (50mL Bag) 24 ML 3 UNITS CONT INF (07:26)
--- NOTE | 2024-05-10 07:59 | PCM.PN.CARD ---
Subjective Subjective Patient remains intubated and sedated. She did revert into atrial fibrillation yesterday with a controlled ventricular response. The patient remains on pressors but her vent settings have been weaned significantly. Objective Data Vital Signs: Vital Signs Temp Pulse Resp BP Pulse Ox O2 Del Method O2 Flow Rate 100.0 F H 92 23 H 127/69 H 93 Mechanical Ventilator 3 05/10/24 07:00 05/10/24 07:15 05/10/24 07:15 05/10/24 07:00 05/10/24 07:15 05/10/24 07:15 05/08/24 18:52 FiO2 25 05/10/24 07:15 Oxygen Flow Rate (L/min) 3 Oxygen Delivery Method Mechanical Ventilator Weight: 250 lb 7.122 oz Body Mass Index (BMI) 46.0 Intake & Output: Intake and Output for Last 24 Hours 05/08/24 05/09/24 05/10/24 23:59 23:59 23:59 Intake Total 2334.81 / 2353.89 6502.60 / 6597.30 2300.67 / 2300.67 Output Total 50 / 50 165 / 165 200 / 200 Balance 2284.81 / 2303.89 6337.60 / 6432.30 2100.67 / 2100.67 Lab / Micro Data 05/10/24 02:20 05/10/24 02:20 Labs: Laboratory Results - last 24 hr 05/09/24 08:30: POC Glucose 134 H 05/09/24 11:30: APTT 94.8 H* 05/09/24 17:01: POC Glucose 101 05/09/24 18:55: APTT 82.6 H 05/10/24 00:26: POC Glucose 117 H 05/10/24 02:20: WBC 33.8 H*, RBC 4.76, Hgb 13.5, Hct 41.0, MCV 86.1, MCH 28.4, MCHC 32.9, RDW Std Deviation 48.5 H, RDW Coeff of Nabor 15.4 H, Plt Count 64 L, MPV 11.6, Neut % (Auto) Not Reportable, Absolute Neuts (auto) 27.0 H, Absolute Lymphs (auto) 2.36, Total Counted 100, Neutrophils % (Manual) 36 L, Band Neutrophils % 44 H, Lymphocytes % (Manual) 7 L, Monocytes % (Manual) 5, Metamyelocytes % 4 H, Myelocytes % 4 H, Diff Path Review May foll, Platelet Estimate MOD DEC, [place] Cells RARE, APTT 62.5 H, Sodium 138, Potassium 4.1, Chloride 108 H, Carbon Dioxide 16.0 L, Anion Gap 14, BUN 56 H, Creatinine 2.63 H, Estim Creat Clear Calc 20.33, Est GFR (MDRD) Af Amer 23 L, Est GFR (MDRD) Non-Af 19 L, BUN/Creatinine Ratio 21.3 H, Glucose 156 H, Calcium 6.7 L, Total Bilirubin 1.90 H, AST 3355 H, ALT 1743 H, Alkaline Phosphatase 106, Total Protein 5.1 L, Albumin 2.2 L, Globulin 2.9, Albumin/Globulin Ratio 0.8 L 05/10/24 05:09: POC Glucose 105 Micro: Microbiology 05/08/24 13:25 Blood Culture (Wb) - Anticubital Left Blood Culture - Final Escherichia coli 05/08/24 13:50 Urine, Clean Catch Urine Culture - Preliminary Presumptive E. coli 05/09/24 02:02 Sputum, Induced/Lukens Gram Stain - Final 05/09/24 01:00 Stool Enteric Bacteriology - Final 05/09/24 01:00 Stool Clostridioides difficile (PCR) - Final ABG Data ABG results: ABG 05/09/24 11:32 Specimen Type ART Sample Site Art Line pH 7.26 L Bicarbonate Actual 10.5 L Total CO2 11 Base Excess -17 L O2 Saturation 95 O2 % 25.0 ABG pCO2 23.6 L ABG pO2 85 Respiration Rate 16 O2 Delivery Device Adult Vent Vent Mode AC Tidal Volume 450.0 POC PEEP 5 Rhythm Strip Rhythm Strip: A-fib Rate: 90 Cardiology Labs/Tests 05/09/24 11:30: APTT 94.8 H* 05/09/24 11:32: pH 7.26 L, Bicarbonate Actual 10.5 L, Base Excess -17 L, O2 Saturation 95, ABG pCO2 23.6 L, ABG pO2 85 05/09/24 18:55: APTT 82.6 H 05/10/24 02:20: WBC 33.8 H*, RBC 4.76, Hgb 13.5, Hct 41.0, MCV 86.1, MCH 28.4, MCHC 32.9, Plt Count 64 L, MPV 11.6, Neut % (Auto) Not Reportable, Absolute Neuts (auto) 27.0 H, Total Counted 100, Neutrophils % (Manual) 36 L, Band Neutrophils % 44 H, Lymphocytes % (Manual) 7 L, Monocytes % (Manual) 5, Metamyelocytes % 4 H, Myelocytes % 4 H, APTT 62.5 H, Sodium 138, Potassium 4.1, Chloride 108 H, Carbon Dioxide 16.0 L, Anion Gap 14, BUN 56 H, Creatinine 2.63 H, Est GFR (MDRD) Af Amer 23 L, Est GFR (MDRD) Non-Af 19 L, BUN/Creatinine Ratio 21.3 H, Glucose 156 H, Calcium 6.7 L, Total Bilirubin 1.90 H Rhythm: EKG: ECHO: Stress Test: Cardiac Cath: PCI: CT Surgery: Holter monitor: EPS: PPM: CXR: Chest CT Scan: Radiography Diagnostic Testing: Radiology Impression Chest X-Ray 05/09/24 05:55 IMPRESSION: No change from prior study. Electronically Signed: Butch Moon MD at 22:05 EDT , Physical Exam Narrative Patient is intubated and sedated. Const Constitutional Narrative: Intubated and sedated. HEENT normocephalic Neck Neck Narrative: Thick neck no JVD appreciated. Chest Chest Narrative: Increased AP diameter Resp normal respiratory effort Auscultation: rhonchi throughout (Scattered throughout on the vent.) Cardio Cardio Narrative: Distant heart tones due to body habitus and ventilatory support. Rate: regular rate Rhythm: abnormal rhythm irregularly irregular Heart Sounds: S1 normal and S2 normal; Negative for click, gallop or murmur GI GI Narrative: Obese Extremity no pedal edema Extremity Narrative: Extremities are cool to touch. Neuro Neuro Narrative: Intubated and sedated. Psych Psych Narrative: Intubated and sedated. Assessment & Plan Assessment/Plan (1) Septic shock: PLAN: Patient has Gram negative E. coli growing in the blood culture. This is being treated by the primary service she remains intubated sedated and on pressors. (2) Atrial fibrillation: QUALIFIERS: Atrial fibrillation type: paroxysmal Qualified Code(s): I48.0 - Paroxysmal atrial fibrillation PLAN: Patient reverted into atrial fibrillation which is not unexpected given her septic stress. Given her renal failure we had to adjust her Betapace (sotalol) 220 mg every 48 hours. Eliquis is on hold. The patient is on heparin. Heart rate is appropriate at 90-110 for her septic situation. (3) Long-term use of high-risk medication: PLAN: Patient's sotalol therapy is being addressed due to her acute renal failure. We will monitor recovery of her renal status to alter the dosing as indicated. (4) Elevated troponin: PLAN: The patient's troponin elevation is related to her sepsis and overall demand ischemia. I do not feel this represents a non-STEMI. A limited 2D echocardiogram will be done today to evaluate her LV function. PLAN: Plan 1. Limited 2D echocardiogram today. 2. Continue sotalol 120 mg every 48 hours. 3. Continue sepsis therapy and ICU treatments per ICU team and primary service. 4. I will follow-up with you as directed. Charges/Coding Visit Charges Inpatient E&M: 05968 [facility] Hosp L3
[2024-05-10] MEDS: Calcium Chloride IV 1 GM in 0.9% Normal Saline (100mL Bag) 100 ML IV (08:02)
[2024-05-10] MEDS: Aspirin 81 MG TAB.CHEW GT (08:09)
[2024-05-10] MEDS: Menthol/Lanolin/Calamine/Znox 113 GM Tube 1 APPLIC TOPICAL ×2 (08:09→20:50)
[2024-05-10] MEDS: DULoxetine Hcl 60 MG Capsule PO (08:09)
[2024-05-10] MEDS: Chlorhexidine 15 ML PO ×2 (08:09→20:58)
[2024-05-10] MEDS: Magnesium Chloride 64 MG Delay Rel.Tablet 128 MG PO (08:09)
[2024-05-10] MEDS: Norepinephrine 16 mg/250 mL 0.9% NS 18.8 MG CONT INF (08:19)
--- NOTE | 2024-05-10 09:27 | PCM.PN.TICU ---
Objective Data Objective Data Vital Signs: Vital Signs Last response Temperature 37.9 C H 05/10/24 08:00 Temperature Source Core 05/10/24 08:00 Pulse Rate 103 H 05/10/24 09:00 Pulse Strength Weak (1+) 05/09/24 19:31 Respiratory Rate 22 H 05/10/24 09:00 Respiratory Effort Normal, Non-Labored, Mechanically Ventilated 05/10/24 03:40 Respiratory Depth Normal 05/10/24 03:40 Respiratory Pattern Tachypnea 05/10/24 07:15 Blood Pressure 122/68 H 05/10/24 09:00 Blood Pressure Mean 86 05/10/24 09:00 Blood Pressure Source Arterial Line 05/10/24 08:00 Blood Pressure Position Semi-Fowlers 05/10/24 07:00 Blood Pressure Location Left Arm 05/10/24 07:00 Pulse Ox 96 05/10/24 09:00 Oxygen Delivery Method Mechanical Ventilator 05/10/24 09:00 Oxygen Flow Rate (L/min) 3 05/08/24 18:52 Fraction of Inspired Oxygen (FIO2) 25 05/10/24 09:00 CLA-BSI maintained Yes 05/10/24 05:40 I&O: I&O Last 24 Hours 05/09/24 05/09/24 05/10/24 11:59 23:59 11:59 Intake Total 4277.08 / 6597.30 2225.52 / 6597.30 2358.97 / 2358.97 Output Total 70 / 165 95 / 165 200 / 200 Balance 4207.08 / 6432.30 2130.52 / 6432.30 2158.97 / 2158.97 I&O: Total Stay 05/08/24 12:41 thru 05/10/24 09:00 Intake Total 11482.38 Output Total 415 Balance 56482.38 Current Meds Ordered / Administered: Current meds ordered / Administered Generic Name Dose Route Start Last Admin Trade Name Freq PRN Reason Stop Dose Admin Acetaminophen 650 mg 05/08/24 21:48 05/09/24 18:13 Acetaminophen 325 Mg Tablet GT 650 mg Q6H PRN PRN Administration Pain 1-10 Or Fever >100.7 Albuterol/Ipratropium 3 ml 05/08/24 18:57 05/09/24 17:48 Ipratropium/Albuterol Sulfate 3 Ml Ampul.Neb INHALATION 3 ml Q4HWA.RT PRN Administration SHORTNESS OF BREATH Aspirin 81 mg 05/09/24 08:00 05/10/24 08:09 Aspirin 81 Mg Tab.Chew GT 81 mg BREAKFAST EM Administration Buspirone HCl 20 mg 05/08/24 22:00 05/10/24 05:10 Buspirone 5 Mg Tablet GT 20 mg TID EM Administration Calamine/Phenol 1 applic 05/08/24 22:00 05/10/24 08:09 Menthol/Lanolin/Calamine/Znox 113 Gm Tube TOPICAL 1 applic BID EM Administration Protocol Chlorhexidine Gluconate 15 ml 05/08/24 22:00 05/10/24 08:09 Chlorhexidine 15 Ml PO 15 ml BID EM Administration Chlorhexidine Gluconate 1 each 05/09/24 10:00 05/10/24 03:56 Chlorhexidine Gluc 2% Cloth 1 Each [place] TOPICAL 1 each DAILY EM Administration Doxazosin Mesylate 2 mg 05/08/24 22:00 05/09/24 20:31 Doxazosin 4 Mg Tablet GT Not Given QHS EM Duloxetine HCl 60 mg 05/09/24 10:00 05/10/24 08:09 Duloxetine Hcl 60 Mg Capsule PO 60 mg DAILY EM Administration Ergocalciferol 1.25 mg 05/10/24 10:00 05/10/24 08:08 Ergocalciferol 1.25 Mg (50, 000 Unit) Capsule PO Not Given Fr@1000 EM Glucagon 1 mg 05/08/24 18:59 Glucagon 1 Mg/Ml Syringe IM X1 PRN Hypoglycemia Protocol Heparin Sodium (Beef Lung) 50 units 05/08/24 17:49 Heparin Pf Lock 10 Units/Ml 50 Units/5 Ml Syringe IV UD PRN Port-a-Cath (VAD)Heparin Flush Heparin Sodium (Porcine) 0 unit 05/08/24 22:00 Heparin Injection (Vial) 5,000 Unit/Ml Vial IV UD PRN dose adjustment Protocol Hydrocortisone Sodium Succinate 100 mg 05/08/24 23:55 05/10/24 05:10 Hydrocortisone Sod Succinate 100 Mg/2 Ml Vial IV 100 mg Q8 EM Administration Dextrose 250 mls @ 0 mls/hr 05/08/24 18:59 Dextrose 10%-Water IV .Q0M PRN HYPOGLYCEMIA Protocol As Directed Propofol 1,000 mg in 100 mls @ 6.816 mls/hr 05/08/24 20:50 05/10/24 09:00 Diprivan CONT INF 0 mcg/kg/min .Q12H EM 0 mls/hr Titration Protocol 10 MCG/KG/MIN Meropenem 1 gm/ Sodium 120 mls @ 33 mls/hr 05/08/24 22:00 05/10/24 00:15 Chloride IV Infused Q12 EM Infusion Fentanyl 100 mls @ 5 mls/hr 05/08/24 21:05 05/10/24 09:00 CONT INF 0 mcg/hr UD EM 0 mls/hr Titration Protocol 50 MCG/HR Heparin Sodium/Dextrose 25,000 units in 250 mls @ 10 mls/hr 05/08/24 22:00 05/10/24 03:24 CONT INF 600 units/hr .Q25H EM 6 mls/hr Titration Protocol As Directed Vasopressin 20 units/ Sodium 25 mls @ 3 mls/hr 05/09/24 00:30 05/10/24 07:26 Chloride CONT INF 0.04 units/min .Q8H20M EM 3 mls/hr Administration 0.04 UNITS/MIN Vancomycin IV-PHARMACY TO DOSE 500 mls @ 250 mls/hr 05/09/24 01:12 1 each/ Sodium Chloride IV PRN PRN Rx to Dose Protocol Sodium Bicarbonate 150 meq/ 1,150 mls @ 100 mls/hr 05/09/24 04:00 05/10/24 03:56 Dextrose IV 100 mls/hr .[id number] EM Administration Phenylephrine HCl 40 mg/ 250 mls @ 3.75 mls/hr 05/09/24 11:05 05/09/24 19:00 Sodium Chloride CONT INF 0 mcg/min .[id number] EM 0 mls/hr Titration Protocol 10 MCG/MIN Norepinephrine Bitartrate 16 250 mls @ 4.688 mls/hr 05/09/24 11:50 05/10/24 09:00 mg/ Sodium Chloride CONT INF 20 mcg/min .[id number] EM 18.8 mls/hr Titration Protocol 5 MCG/MIN Pantoprazole Sodium 40 mg/ 110 mls @ 330 mls/hr 05/09/24 22:00 05/09/24 21:35 Sodium Chloride IV Infused Q12 EM Infusion Insulin Human Lispro 0 unit 05/09/24 18:00 05/10/24 05:10 Insulin Lispro 100 Unit/Ml Insuln.Pen SC Not Given Q6H [facility] Protocol Lorazepam 0.5 mg 05/08/24 18:57 Lorazepam 0.5 Mg Tablet PO BID PRN Anxiety Magnesium Chloride 128 mg 05/09/24 10:00 05/10/24 08:09 Magnesium Chloride 64 Mg Delay Rel.Tablet PO 128 mg DAILY [facility] Administration Multivitamins 1 tablet 05/09/24 08:00 05/10/24 08:07 Multivitamins,Therapeutic Tablet GT Not Given DAILYCM [facility] Nystatin 1 applic 05/08/24 22:00 05/10/24 05:09 Nystatin Powder 15gm Bottle TOPICAL 1 applic TID [facility] Administration Protocol Oxycodone HCl 2.5 - 5 mg 05/08/24 18:38 Oxycodone 5 Mg Tablet PO Q4H PRN PRN Pain Score 4-10 Prochlorperazine Edisylate 5 mg 05/08/24 18:38 Prochlorperazine 10 Mg/2 Ml Vial IV Q4H PRN PRN Breakthrough nausea/vomiting Senna/Docusate Sodium 2 tablet 05/08/24 22:00 05/10/24 08:07 Senna/Docusate Sodium 1 Tablet GT Not Given BID [facility] Sodium Chloride 10 - 40 ml 05/08/24 17:49 05/09/24 03:04 0.9% Saline Lock 10 Ml Syringe IV 30 ml UD PRN Administration Port-a-Cath (VAD) Flush Sodium Chloride 5 ml 05/08/24 22:00 Sodium Cl For Inhalation 15 Ml Vial.Neb. INHALATION Q5M PRN Suctioning Sotalol HCl 120 mg 05/11/24 10:00 Sotalol Hydrochloride 80 Mg Tablet PO 05/11/24 10:01 X1 ONE Protocol Tolterodine Tartrate 2 mg 05/09/24 10:00 05/10/24 08:07 Tolterodine Tartrate 2 Mg Cap.Sa PO Not Given DAILY [facility] Vancomycin Protocol 1 lab 05/11/24 23:30 Vancomycin Trough/Random Due MC 05/12/24 03:30 DAILY [facility] Lab / Micro Data 05/10/24 02:20 05/10/24 02:20 Labs: Laboratory Results - last 24 hr 05/09/24 08:30: POC Glucose 134 H 05/09/24 11:30: APTT 94.8 H* 05/09/24 17:01: POC Glucose 101 05/09/24 18:55: APTT 82.6 H 05/10/24 00:26: POC Glucose 117 H 05/10/24 02:20: WBC 33.8 H*, RBC 4.76, Hgb 13.5, Hct 41.0, MCV 86.1, MCH 28.4, MCHC 32.9, RDW Std Deviation 48.5 H, RDW Coeff of Nabor 15.4 H, Plt Count 64 L, MPV 11.6, Neut % (Auto) Not Reportable, Absolute Neuts (auto) 27.0 H, Absolute Lymphs (auto) 2.36, Total Counted 100, Neutrophils % (Manual) 36 L, Band Neutrophils % 44 H, Lymphocytes % (Manual) 7 L, Monocytes % (Manual) 5, Metamyelocytes % 4 H, Myelocytes % 4 H, Diff Path Review May foll, Platelet Estimate MOD DEC, [place] Cells RARE, APTT 62.5 H, Sodium 138, Potassium 4.1, Chloride 108 H, Carbon Dioxide 16.0 L, Anion Gap 14, BUN 56 H, Creatinine 2.63 H, Estim Creat Clear Calc 20.33, Est GFR (MDRD) Af Amer 23 L, Est GFR (MDRD) Non-Af 19 L, BUN/Creatinine Ratio 21.3 H, Glucose 156 H, Calcium 6.7 L, Total Bilirubin 1.90 H, AST 3355 H, ALT 1743 H, Alkaline Phosphatase 106, Total Protein 5.1 L, Albumin 2.2 L, Globulin 2.9, Albumin/Globulin Ratio 0.8 L 05/10/24 05:09: POC Glucose 105 Micro: Microbiology 05/08/24 13:50 Urine, Clean Catch Urine Culture - Final Presumptive E. coli 05/08/24 13:25 Blood Culture (Wb) - Anticubital Left Blood Culture - Final Escherichia coli 05/09/24 02:02 Sputum, Induced/Lukens Gram Stain - Final 05/09/24 01:00 Stool Enteric Bacteriology - Final 05/09/24 01:00 Stool Clostridioides difficile (PCR) - Final ABG Data ABG results: ABG 05/09/24 11:32 Specimen Type ART Sample Site Art Line pH 7.26 L Bicarbonate Actual 10.5 L Total CO2 11 Base Excess -17 L O2 Saturation 95 O2 % 25.0 ABG pCO2 23.6 L ABG pO2 85 Respiration Rate 16 O2 Delivery Device Adult Vent Vent Mode AC Tidal Volume 450.0 POC PEEP 5 Rhythm Strip Rhythm Strip: A-fib Rate: 90 Imaging Radiology Impression Chest X-Ray 05/09/24 05:55 IMPRESSION: No change from prior study. Electronically Signed: Butch Moon MD at 22:05 EDT , Assessment and Plan . Assessment and plan: Critical Care Time: The entirety of this encounter was done via Telemedicine Subjective Subjective Pt seen and examined. Intubated, sedated. Did not tolerate SAT this AM due to tachycardia/tachypnea. Making urine. Prop @ 5 Fent @ 100 Nepi @ 15 Vaso @ 0.04 HCO3 @ 100 16 450 5 25 PE: General: Acute on chronically ill appearing morbidly obese female; + MV HEENT: anicteric Sclera; + ETT, nl nose; supple neck, no masses Cardiovascular: +S1/S2; No rubs, gallops; no displaced PMI Respiratory: diminished; no crackles, wheezes, or rhonchi Abdominal: Non-tender; Non distended; hypoBS x 4; No Hepatosplenomegaly Extremities: Warm, well perfused; No clubbing, cyanosis; capillary refill < 2 sec Neurological: sedated but easily agitated A/P: #Acute hypercapnic respiratory failure: cont MV; cont sedation/analgesia but will trial Precedex to see if better able to tolerate future SAT +/- SBTs per protocol; also on PO buspirone #Septic shock: sp fluid boluses; cont pressors to keep MAP > 65; stress dose steroids, emp IV Abx; F/U Cx --> pressor requirements improving, down to moderate NEpi doses + vaso; cont titrating as possible #Pyelonephritis: see above; monitor temp curve/WBC/band %; pansensitive E. coli on initial BCx; ID on board & helping manage antimicrobials #Lt hydronephrosis 2* to obstructing nephrolithiasis: sp cystoscopy with stent placement; urology on board #ROSANA: ?prerenal vs ATN vs other; nonoliguric; will switch HCO3 gtt to LR; cont strict I/Os #Elevated LFTs: ?shock liver from earlier severe hypotension vs other; get abd U/S; avoid hepatoxic meds #AFib on Eliquis: cardiology following; cont sotalol and F/U limited TTE; currently on hep gtt #NSTEMI: likely type II; on hep gtt given concurrent AF; cardiology following #Acute encephalopathy: likely toxic/metabolic; initial head CT unremarkable; cont supportive management #COPD (nonsmoker, 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
--- NOTE | 2024-05-10 09:29 | PCM.RX.CS ---
Consult Antibiotic Management Pharmacy has been consulted to manage selected antibiotic: Vancomycin Type of Intervention Type of Consult: Follow-up Suspected Infection Suspected Infection: Sepsis Prior Doses of Antibiotics Prior Doses of Antibiotics Received/Current Regimen: Presently on 1500mg iv q24h. Labs Labs: Sodium 138 mmol/L (136-145) 05/10/24 02:20 Potassium 4.1 mmol/L (3.5-5.1) 05/10/24 02:20 Chloride 108 mmol/L (98-107) H 05/10/24 02:20 Carbon Dioxide 16.0 mmol/L (21.0-32.0) L 05/10/24 02:20 Anion Gap 14 (5-15) 05/10/24 02:20 BUN 56 mg/dL (7-18) H 05/10/24 02:20 Creatinine 2.63 mg/dL (0.55-1.02) H 05/10/24 02:20 Est GFR (MDRD) Af Amer 23 mL/min (>60) L 05/10/24 02:20 Est GFR (MDRD) Non-Af 19 mL/min (>60) L 05/10/24 02:20 BUN/Creatinine Ratio 21.3 RATIO (10-20) H 05/10/24 02:20 Glucose 156 mg/dL (74-106) H 05/10/24 02:20 Microbiology Microbiology: Microbiology 05/08/24 13:50 Urine, Clean Catch Urine Culture - Final Presumptive E. coli 05/08/24 13:25 Blood Culture (Wb) - Anticubital Left Blood Culture - Final Escherichia coli 05/09/24 02:02 Sputum, Induced/Lukens Gram Stain - Final 05/09/24 01:00 Stool Enteric Bacteriology - Final 05/09/24 01:00 Stool Clostridioides difficile (PCR) - Final 05/08/24 13:25 Mucosa - Nose SARS-CoV-2, Influenza & RSV (PCR) - Final Dosing Weight Weight used for dosin.7 kg Estimated Creatinine Clearance Estimated Creatinine Clearance: 20ml/min Goal Trough Goal Trough: 15-20 mcg/mL Pharmacy Plan for Drug Dosing Pharmacy Plan for Drug Dosing: Renal function changed from Cr 1.46 to 2.63 with CrCl from ~37 to 20ml/min. Recommend changing dose to 1000mg iv q24h. Trough level ordered for 05.12.24 @7300. Pharmacy Service will continue to monitor and adjust dosing as required. Follow-Up Labs Follow-Up Labs: Trough: Vancomycin (05.12.24 @7529)
[2024-05-10] MEDS: Pantoprazole Sodium 40 MG in 0.9% Normal Saline (100mL MB+) 100 ML 330 MG IV ×2 (09:44→21:06)
[2024-05-10 10:04] LABS: Partial Thromboplast Time 51.7 Seconds (24.1-36.2)
--- NOTE | 2024-05-10 10:24 | PN_ITS ---
Subjective Subjective Patient seen and examined. She remains intubated. She is tachycardic and tachypneic. Unable to do review of systems due to her being intubated. Her WBC has climbed up to 33 today. Creatinine is 2.63 bicarb is 16 without a gap of 14. Objective Data Objective Data Vital Signs: Vital Signs Temp Pulse Resp BP Pulse Ox O2 Del Method O2 Flow Rate 100.3 F H 105 H 21 H 122/68 H 96 Mechanical Ventilator 3 05/10/24 08:00 05/10/24 09:59 05/10/24 09:59 05/10/24 09:00 05/10/24 09:59 05/10/24 09:00 05/08/24 18:52 FiO2 25 05/10/24 09:59 Oxygen Flow Rate (L/min) 3 Oxygen Delivery Method Mechanical Ventilator Weight: 250 lb 7.122 oz Body Mass Index (BMI) 46.0 Intake & Output: Intake and Output for Last 24 Hours 05/08/24 05/09/24 05/10/24 23:59 23:59 23:59 Intake Total 2334.81 / 2353.89 6502.60 / 6597.30 2621.57 / 2621.57 Output Total 50 / 50 165 / 165 200 / 200 Balance 2284.81 / 2303.89 6337.60 / 6432.30 2421.57 / 2421.57 Lab / Micro Data 05/10/24 02:20 05/10/24 02:20 Labs: Laboratory Results - last 24 hr 05/09/24 08:30: POC Glucose 134 H 05/09/24 11:30: APTT 94.8 H* 05/09/24 17:01: POC Glucose 101 05/09/24 18:55: APTT 82.6 H 05/10/24 00:26: POC Glucose 117 H 05/10/24 02:20: WBC 33.8 H*, RBC 4.76, Hgb 13.5, Hct 41.0, MCV 86.1, MCH 28.4, MCHC 32.9, RDW Std Deviation 48.5 H, RDW Coeff of Nabor 15.4 H, Plt Count 64 L, MPV 11.6, Neut % (Auto) Not Reportable, Absolute Neuts (auto) 27.0 H, Absolute Lymphs (auto) 2.36, Total Counted 100, Neutrophils % (Manual) 36 L, Band Neutrophils % 44 H, Lymphocytes % (Manual) 7 L, Monocytes % (Manual) 5, M etamyelocytes % 4 H, Myelocytes % 4 H, Diff Path Review May foll, Platelet Estimate MOD DEC, [place] Cells RARE, APTT 62.5 H, Sodium 138, Potassium 4.1, C hloride 108 H, Carbon Dioxide 16.0 L, Anion Gap 14, BUN 56 H, Creatinine 2.63 H, Estim Creat Clear Calc 20.33, Est GFR (MDRD) Af Amer 23 L, Est GFR (MDRD) Non-Af 19 L, BUN/Creatinine Ratio 21.3 H, Glucose 156 H, Calcium 6.7 L, Total Bilirubin 1.90 H, AST 3355 H, ALT 1743 H, Alkaline Phosphatase 106, Total Protein 5.1 L, A lbumin 2.2 L, Globulin 2.9, Albumin/Globulin Ratio 0.8 L 05/10/24 05:09: POC Glucose 105 05/10/24 09:40: APTT 51.7 H Micro: Microbiology 05/08/24 13:50 Urine, Clean Catch Urine Culture - Final Presumptive E. coli 05/08/24 13:25 Blood Culture (Wb) - Anticubital Left Blood Culture - Final Escherichia coli 05/09/24 02:02 Sputum, Induced/Lukens Gram Stain - Final 05/09/24 01:00 Stool Enteric Bacteriology - Final 05/09/24 01:00 Stool Clostridioides difficile (PCR) - Final 05/08/24 13:25 Mucosa - Nose SARS-CoV-2, Influenza & RSV (PCR) - Final ABG Data ABG results: ABG 05/09/24 11:32 Specimen Type ART Sample Site Art Line pH 7.26 L Bicarbonate Actual 10.5 L Total CO2 11 Base Excess -17 L O2 Saturation 95 O2 % 25.0 ABG pCO2 23.6 L ABG pO2 85 Respiration Rate 16 O2 Delivery Device Adult Vent Vent Mode AC Tidal Volume 450.0 POC PEEP 5 Radiography Diagnostic Testing: Radiology Impression Chest X-Ray 05/09/24 05:55 IMPRESSION: No change from prior study. Electronically Signed: Butch Moon MD at 22:05 EDT , Rhythm Strip Rhythm Strip: A-fib Rate: 90 Physical Exam Const Constitutional Narrative: lethargic, sedated, RASS score is -3 Orientation / Consciousness: lethargic HEENT normocephalic and head/scalp atraumatic Eyes PERRL and EOMs intact bilaterally Neck no lymphadenopathy, supple and no JVD Lymph Lymphatic: no lymphadenopathy noted Resp Resp Narrative: intubated, sedated, RASS score is -3, diminished breath sounds bibasally, no wheezes or crackles. Effort and Inspection: tachypneic Cardio S1 normal heart sound, S2 normal heart sound and no murmurs Cardio Narrative: tachypneic GI normal to inspection, nondistended, normoactive bowel sounds, soft to palpation, non-tender and non-distended Extremity normal capillary refill, no clubbing, cyanosis or edema and no calf tenderness General Extremity: no tenderness to palpation of joints or extremities Skin General Skin Exam: no breakdown Neuro CN's II-XII intact bilaterally and no focal motor deficits Motor Exam: general weakness Psych Psych Narrative: lethargic, intubated, RASS is -3 Assessment & Plan Assessment/Plan (1) Bacteremia due to Gram-negative bacteria: (2) Septic shock: (3) Elevated troponin: PLAN: Plan #Septic shock * Likely due to infected kidney stone and left-sided pyelonephritis. * CT of the abdomen showed 2 mm stone in the proximal left ureter with extensive perinephric stranding and mild left hydronephrosis * she is s/p cystoscopy with stent placement in the proximal left ureter * Patient remains on vasopressors. * Critical care and urology on board. ID also on board. On IV meropenem and vancomycin * Patient tachycardic and tachypneic. He is also febrile. * urine culture and blood culture growing E coli. * Titrate vasopressors to maintain MAP more than 65 * #Acute hypoxic respiratory failure * A CODE BLUE was called the patient still had a pulse so was changed to a rapid response. She was breathing rapidly. CT of the brain showed no acute intracranial pathology. * Was intubated to protect airway. She still remains intubated. * Breathing treatments and bronchodilators. * critical care on board. * #Non-STEMI * Patient noted to have markedly elevated troponins. Cardiology was on board * She is to have 2D echo and then further recommendations per cardiology. * Currently on heparin drip * Likely due to demand ischemia from septic shock * On aspirin * 2D echo done today and read is pending * #ROSANA on CKD with anion gap metabolic acidosis * Creatinine is 2.63 today. * Bicarb is 16 anion gap is 14. She is on bicarb drip. * This is likely prerenal due to the septic shock. * consider nephrology consult if Cr continues to trend upwards. * #Lactic acidosis: * Likely due to the septic shock. * Also contributing to the anion gap metabolic acidosis. * Should improve as shock resolves. #Elevated liver enzymes: * Bilirubin is 1.9 and AST and ALT also markedly elevated. * This is likely due to shock liver from septic shock. * It would likely improve as liver function improves. #Hypocalcemia * Calcium is 6.7 today. Will replace and trend. #COPD: Not in exacerbation. Remains intubated. Breathing treatments bronchodilators #A-fib: sotalol on hold. Eliquis also on hold and currently on heparin drip #Type 2 diabetes mellitus: Currently n.p.o. as she is intubated. Insulin sliding scale. Accu-Cheks every 6 hours #History of ovarian cancer: On Avastin. To follow with Dr. Ochoa on discharge #CAD: has known EF of 60% #heart failure preserved ejection fraction: has known EF of 60%. Stable. Lasix on hold DVT prophylaxis: Not indicated as she is on heparin drip Charges/Coding Visit Charges Inpatient E&M: 15562 [facility] L3
[2024-05-10] MEDS: Meropenem 1 GM in 0.9% Normal Saline (100mL MB+) 100 ML IV (10:25)
[2024-05-10] MEDS: fentaNYL drip 100 ML 10 MCG CONT INF (10:26)
[2024-05-10] MEDS: HEPARIN/D5w 25,000 UNITS 25,000 UNITS/250 ML IV.SOLN. 7 UNITS CONT INF (10:26)
[2024-05-10 11:06] LABS: Base Excess -7 mmol/L (-2 to +2); Bicarbonate 17.5 mmol/L (22-26); Blood Gas Specimen Type ART; Mode AC; O2 Delivery Device Adult Vent; PEEP 5; PO2 74 mmHG (75-100); RR 16; SITE Art Line; SO2 95 % (95-99); Total Carbon Dioxide 18 mmol/L; pCO2 28.6 mmHg (35-45); pH 7.39 (7.35-7.45)
[2024-05-10] MEDS: dexMEDEtomidine 400 MCG in 0.9% Normal Saline (100mL Bag) 96 ML 14.2 MCG CONT INF (11:40)
[2024-05-10] MEDS: Acetaminophen 325 MG Tablet 650 MG GT (11:41)
--- NOTE | 2024-05-10 11:46 | US_ITS ---
INDICATION: elevated LFTs, ROSANA EXAMINATION: Ultrasound US Abdomen Complete TECHNIQUE: Burnette-scale and color Doppler imaging was performed of the abdomen. COMPARISON: CT dated May 08, 2024 FINDINGS: LIVER: There is normal echotexture. No focal hepatic lesion. No intrahepatic biliary ductal dilatation. The liver is enlarged. There is a small volume of free fluid. GALLBLADDER AND BILIARY TREE: There is sludge within the gallbladder. No shadowing gallstone, pericholecystic fluid or gallbladder wall thickening is demonstrated. The proximal common bile duct measures 9.6 mm. SONOGRAPHIC THOMAS''S SIGN: Negative. PANCREAS: No focal abnormality is demonstrated in the pancreas. No pancreatic ductal dilatation. SPLEEN: The spleen is normal in size and homogeneous in echotexture. KIDNEYS: There is no hydronephrosis. No shadowing calculus, or perinephric collection is demonstrated. There is a 2.1 x 2.0 cm left renal cyst. VESSELS: Submitted longitudinal images of the intra-abdominal aorta demonstrate no gross abnormalities and are unremarkable. The IVC is patent. US/Abdomen Complete IMPRESSION: Ascites. Dilated common bile duct measuring up to 9.6 mm. Sludge within the gallbladder with no associated gallbladder wall thickening nor pericholecystic fluid. Left renal cyst. Electronically Signed: Chika Rebollar MD at 14:34 EDT ,
[2024-05-10] MEDS: Lactated Ringers 1,000 ML 100 ML IV ×2 (11:51→21:57)
[2024-05-10 12:19] LABS: Bedside Glucose 120 mg/dL (74-106)
--- NOTE | 2024-05-10 13:07 | PCM.PN.ID ---
Physical Exam Narrative On vent, getting echo, fever overnight, family at bedside Const no apparent distress Resp Effort and Inspection: mechanically ventilated Cardio Rate: tachycardic GI soft to palpation, non-tender and non-distended Extremity General Extremity: edema Skin no rashes or lesions noted ID ID: Route of nutrition/ use of supplements: [] Nutritional Intake: [] IV Site: [] Bruno Catheter: [] Assessment & Plan Assessment/Plan (1) Septic shock: PLAN: due to ecoli bacteremia from pyelo and L sided hydro. L ureteral stent placed by Dr. Wolfe 05/09/24. On vent. Remains on 1 pressor, other two have been stopped. Will narrow vanc/kenroy to ceftriaxone. Will follow (2) History of ovarian cancer: (3) Hydronephrosis concurrent with and due to calculi of kidney and ureter: (4) Bacteremia due to Gram-negative bacteria:
[2024-05-10] MEDS: Ceftriaxone 2 GM in 0.9% Normal Saline (50mL MB+) 50 ML IV (13:37)
[2024-05-10] MEDS: 0.9% Saline Lock 10 ML Syringe IV (13:50)
[2024-05-10 14:37] LABS: Pathologist Review Reviewed
[2024-05-10 16:27] LABS: Partial Thromboplast Time 49.4 Seconds (24.1-36.2)
[2024-05-10 17:36] LABS: Bedside Glucose 102 mg/dL (74-106)
[2024-05-10 23:09] LABS: Partial Thromboplast Time 45.8 Seconds (24.1-36.2)
[2024-05-10] MEDS: dexMEDEtomidine 400 MCG in 0.9% Normal Saline (100mL Bag) 96 ML 8.5 MCG CONT INF (23:49)
[2024-05-11] VITALS (44 sets, daily range): BP systolic 95–140; BP diastolic 58–91; PULSE 77–141; RESP 16–26; TEMP 36.4–38.6; O2SAT 97–100; BMI 47.8
[2024-05-11 00:50] LABS: Bedside Glucose 74 mg/dL (74-106)
[2024-05-11] MEDS: fentaNYL drip 100 ML 2.5 MCG CONT INF (04:35)
[2024-05-11] MEDS: Hydrocortisone Sod Succinate 100 MG/2 ML Vial IV ×3 (05:00→20:51)
[2024-05-11] MEDS: Nystatin Powder 15gm Bottle 1 APPLIC TOPICAL ×3 (05:00→20:50)
[2024-05-11] MEDS: 0.9% Saline Lock 10 ML Syringe IV (05:04)
[2024-05-11 05:24] LABS: Absolute Lymphocyte Count 1.15 X10^3/uL (0.83-4.51); Absolute Neutrophil Count 32.8 X10^3/uL (2.0-7.7); Basophil# 0.02 X10^3/uL; Basophil% 0.1 % (0-1); Hemoglobin 13.1 g/dL (12.0-15.0); Lymphocyte # 1.15 X10^3/ul (0.83-4.51); Lymphocyte % 3.2 % (19-41); Mean Corp Hgb Conc 34.5 g/dL (32-36); Mean Corpuscular Hgb 28.4 pg (27.0-32.0); Mean Corpuscular Volume 82.4 fL (81-99); Mean Platelet Vol. 11.2 fl (6.2-12.0); Monocyte# 1.07 X10^3/uL; NRBC Flagged by Analyzer 0.1 % (0-5); Neutrophil # 32.79 X10^3/uL (2.7-7.7); POSITIVE COUNT YES; POSITIVE DIFFERENTIAL YES; POSITIVE MORPHOLOGY YES; Platelet Count 59 K/mm3 (150-450); RBC Distribution Width CV 15.3 % (11.6-14.6); RBC Distribution Width SD 46.1 fl (35.1-43.9); Red Blood Count 4.61 M/mm3 (4.2-5.4)
[2024-05-11 05:29] LABS: Bedside Glucose 132 mg/dL (74-106)
[2024-05-11 05:45] LABS: Partial Thromboplast Time 38.8 Seconds (24.1-36.2)
[2024-05-11 05:46] LABS: ALB/GLOB Ratio 0.6 RATIO (0.9-2.4); AST(SGOT) 684 U/L (15-37); Alanine Aminotransfer ALT/SGPT 1094 U/L (13-56); Albumin, Serum 1.9 g/dL (3.2-5.0); Alkaline Phosphatase 177 U/L (45-117); Anion Gap 9 (5-15); BUN 59 mg/dL (7-18); BUN/Creat Ratio 29.4 RATIO (10-20); Calcium,Total 7.5 mg/dL (8.5-10.1); Chloride 106 mmol/L (98-107); Creatinine, Serum 2.01 mg/dL (0.55-1.02); EST Glomerular Filtration Rate 26 mL/min (>60); Est Glom Filt Rate - Afr Amer 31 mL/min (>60); Estimated Creatinine Clearance 29.04 ml/min; Globulin 3.2 g/dL (2.2-4.2); Glucose 146 mg/dL (74-106); Potassium 3.8 mmol/L (3.5-5.1); Protein, Total 5.1 g/dL (6.4-8.2); Sodium Level 136 mmol/L (136-145)
[2024-05-11] MEDS: Heparin Injection (Vial) 5,000 UNIT/ML VIAL IV (05:58)
[2024-05-11 06:28] LABS: Differential Indicated SCAN CRITERIA MET; White Blood Count 35.6 K/mm3 (4.4-11.0)
[2024-05-11 06:29] LABS: Differential Comment SCANNED
--- NOTE | 2024-05-11 07:38 | EX.PCM.CON.S ---
Assessment & Plan Assessment/Plan (1) Gallbladder sludge: (2) Elevated LFTs: (3) Hydronephrosis concurrent with and due to calculi of kidney and ureter: PLAN: s/p cysto w stent (4) Bacteremia due to Gram-negative bacteria: (5) Elevated troponin: (6) Septic shock: PLAN: Plan Did review patient's ultrasound. Patient has normal wall, minimal sludge in the gallbladder. No signs of inflammation. Patient is on the vent but able to shake yes or no to questions denies any abdominal pain even in the right upper quadrant. Likely patient's elevated LFTs are due to shock liver which are improved as they were almost 3300/1700 and total bili is 1.9 to 1.1. Patient was previously maxed on 3 pressors currently only on levo at 5 mcg. Patient white blood count elevated however patient is on IV steroids. No plans for any current surgical intervention discussed with Dr. Valverde. Promise Bond M.D. Pager: [phone] [facility] [address] [place] [address], Outpatient [facility]ilion, [address] [place] [address] Office: [phone] HPI Consult Data Date of Consult: 05/11/24 HPI Narrative HPI Narrative: ANDREW VELAZQUEZ, is a 78 F who admitted due to septic shock secondary to hydronephrosis/UTI/bactremia status post stent placement on 10/07. Patient did have elevated LFTs total bili 1.9 down to 1.1 AST 3300, ALT 1700 patient also had an elevated troponin last 1 on the was almost 1400. Patient was previously maxed on 3 pressors currently only on levo at 5. Patient's LFTs are improving. Patient is currently on the vent and also receiving steroids IV. patient's white blood cell count is up to 35 from 33 however she is on the IV steroids. Patient denies any abdominal pain and she is able to shake her head yes or no to questions. COUNTS INCLUDE 234 BEDS AT THE [facility] Medical History Depression Diabetes Kidney stones Non-smoker CPAP (continuous positive airway pressure) dependence Congestive heart failure (CHF) Myocardial infarct OAB (overactive bladder) Atypical chest pain Urinary frequency Breast cancer screening Grief reaction Non-rheumatic tricuspid valve insufficiency Non-rheumatic mitral regurgitation History of cardioversion (~06/28/22) Chronic atrial fibrillation with RVR Obstructive sleep apnea Chronic obstructive pulmonary disease Depression Preop cardiovascular exam Port-A-Cath in place Ovarian cancer Pelvic mass Ascites Diarrhea Abdominal pain Flu vaccine need Vitamin D deficiency Essential hypertension Diastolic congestive heart failure Atherosclerotic heart disease of [place] coronary artery without angina pectoris Long-term use of high-risk medication SOB (shortness of breath) Pulmonary HTN Panic disorder Hiatal hernia Debility Paroxysmal atrial fibrillation with rapid ventricular response Streptococcal pneumonia Acute exacerbation of chronic obstructive pulmonary disease (COPD) Acute respiratory failure with hypoxia and hypercarbia NSTEMI (non-ST elevated myocardial infarction) Sepsis Junctional rhythm Spastic colon Morbid obesity PAF (paroxysmal atrial fibrillation) HLD (hyperlipidemia) CAD (coronary artery disease) Anxiety DM2 (diabetes mellitus, type 2) Hypokalemia Home Medications ?Medication ?Instructions ?Recorded ?Last Taken ?Type compress.stocking,knee,reg,lrg #2 ea 05/06/19 Unknown Rx lancing device #1 ea 12/29/20 Unknown Rx docusate sodium 100 mg capsule 100 mg PO BID PRN Constipation 05/04/22 Unknown History (Colace) albuterol sulfate 90 mcg/actuation 1 inh inhalation ONCE PRN SOB 05/23/22 Unknown History aerosol inhaler (Ventolin HFA) loperamide 2 mg tablet 2 mg PO Q6H PRN Diarrhea 06/27/22 Unknown History multivitamin 1 tab PO DAILY 11/25/22 Unknown History furosemide 40 mg tablet 20 mg PO PRN SWELLING 02/22/23 Unknown History hydrochlorothiazide 25 mg tablet 25 mg PO DAILY #90 tabs 03/29/23 Unknown Rx ibandronate 150 mg tablet 150 mg PO QMONTH #14 tabs 06/09/23 Unknown Rx spironolactone 25 mg tablet 25 mg PO DAILY #90 tabs 10/06/23 Unknown Rx doxazosin 2 mg tablet 2 mg PO QHS #30 tabs 10/23/23 Unknown Rx bevacizumab 25 mg/mL intravenous mg intravitreal MONTHLY CHEMO 11/24/23 Unknown History solution (Avastin) buspirone 10 mg tablet 20 mg (2 x 10 mg) PO TID 3 months 12/13/23 Unknown Rx #540 TABLETS fluticasone 500 mcg-salmeterol 50 1 inh inhalation BID #3 ea 02/01/24 Unknown Rx mcg/dose blistr powdr for inhalation (Wixela Inhub) ezetimibe 10 mg tablet (Zetia) 10 mg PO QDAY cholesterol #90 tabs 02/06/24 Unknown Rx amlodipine 5 mg tablet 5 mg PO BID #180 tabs 02/21/24 Unknown Rx pantoprazole 40 mg tablet,delayed 40 mg PO BID GERD #180 tabs 03/12/24 Unknown Rx release magnesium oxide 400 mg PO DAILY supplement 03/22/24 Unknown History metformin 500 mg tablet 500 mg PO BID #180 tabs 03/29/24 Unknown Rx sotalol 120 mg tablet 120 mg PO DAILY heart #180 tabs 04/10/24 Unknown Rx oxybutynin chloride 10 mg 10 mg PO DAILY #90 tabs 04/15/24 Unknown Rx tablet,extended release 24 hr apixaban 5 mg tablet (Eliquis) 5 mg PO BID #180 tabs 04/22/24 Unknown Rx fenofibrate micronized 134 mg 134 mg PO QPM #90 caps 04/25/24 Unknown Rx capsule lisinopril 20 mg tablet 20 mg PO BID #200 TABLETS 04/30/24 Unknown Rx cholecalciferol (vitamin D3) 1,250 50,000 unit PO FR supplement 05/08/24 Unknown History mcg (50,000 unit) tablet duloxetine 60 mg capsule,delayed 60 mg PO DAILY #90 caps 05/08/24 Unknown Rx release lorazepam 0.5 mg tablet (Ativan) 0.5 mg PO BID PRN Anxiety #30 tabs 05/08/24 Unknown Rx Allergy/AdvReac Type Severity Reaction Status Date / Time amoxicillin Allergy Severe hives Verified 05/08/24 12:53 chlorhexidine Allergy Unknown red skin Verified 05/08/24 12:53 morphine Allergy Unknown headaches Verified 05/08/24 12:53 labetalol Allergy Unknown Verified 05/08/24 12:53 pitavastatin (From Livalo) Allergy Other Verified 05/08/24 12:53 simvastatin (From Zocor) Allergy Other Verified 05/08/24 12:53 atorvastatin (From Lipitor) AdvReac Unknown myalgias Verified 05/08/24 12:53 budesonide (From Symbicort) AdvReac Other Verified 05/08/24 12:53 formoterol (From Symbicort) AdvReac Other Verified 05/08/24 12:53 hydrocodone (From Vicodin) AdvReac Other Verified 05/08/24 12:53 Pgznebe-QPP-NqG Reductase AdvReac Other Verified 05/08/24 12:53 Inhibitor (Ajszvbd-Mqe-Rfx Reductase Inhibitor) Family History Mother Cancer leukemia Father Respiratory disease Grandfather Myocardial infarction Grandmother Myocardial infarction Son Diabetes Surgical History Hx of prior ablation treatment Status post catheter ablation of atrial fibrillation History of hysterectomy History of exploratory laparotomy History of cataract surgery History of tonsillectomy and adenoidectomy History of surgery on right wrist History of colonoscopy Social History household members: spouse and children Smoking Status: Never smoker alcohol intake: never substance use type: does not use caffeine: Yes Type: coffee Number of servings: 1 what type of physical activity do you participate in: none seatbelt use: always do you feel safe at home: Yes ROS Review of Systems ROS Unobtainable: due to endotracheal tube Physical Exam Const Constitutional Narrative: Patient intubated and sedated able to shake her head yes or no to questions HEENT normocephalic Resp Resp Narrative: ET tube in place on the ventilator Cardio regular rate GI soft to palpation and non-tender; Negative for non-distended GI Narrative: Umbilicus is dressed with some fibular due to bleeding after coming back from stent placement after umbilicus was cleaned in OR currently no evidence of active bleeding. Palpation: Negative for guarding Extremity no calf tenderness Skin no rashes or lesions noted Lab / Micro Data 05/11/24 05:10 05/11/24 05:10 Labs: Laboratory Results - last 24 hr 05/10/24 02:20: Diff Path Review Reviewed 05/10/24 09:40: APTT 51.7 H 05/10/24 11:55: POC Glucose 120 H 05/10/24 16:12: APTT 49.4 H 05/10/24 17:14: POC Glucose 102 05/10/24 22:45: APTT 45.8 H 05/10/24 23:07: POC Glucose 74 05/11/24 04:25: POC Glucose 132 H 05/11/24 05:10: WBC 35.6 H*, RBC 4.61, Hgb 13.1, Hct 38.0, MCV 82.4, MCH 28.4, MCHC 34.5, RDW Std Deviation 46.1 H, RDW Coeff of Nabor 15.3 H, Plt Count 59 L, MPV 11.2, Immature Gran % (Auto) 1.700 H, Neut % (Auto) 92.0 H, Lymph % (Auto) 3.2 L, Wells % (Auto) 3.0, Eos % (Auto) 0.0, Baso % (Auto) 0.1, Absolute Neuts (auto) 32.8 H, Absolute Lymphs (auto) 1.15, Nucleated RBC % 0.1, Differential Comment SCANNED, Diff Path Review November, APTT 38.8 H, Sodium 136, Potassium 3.8, Chloride 106, Carbon Dioxide 21.0, Anion Gap 9, BUN 59 H, Creatinine 2.01 H, Estim Creat Clear Calc 29.04, Est GFR (MDRD) Af Amer 31 L, Est GFR (MDRD) Non-Af 26 L, BUN/Creatinine Ratio 29.4 H, Glucose 146 H, Calcium 7.5 L, Total Bilirubin 1.10 H, AST 684 H, ALT 1094 H, Alkaline Phosphatase 177 H, Total Protein 5.1 L, Albumin 1.9 L, Globulin 3.2, Albumin/Globulin Ratio 0.6 L Micro: Microbiology 05/08/24 13:50 Urine, Clean Catch Urine Culture - Final Presumptive E. coli 05/08/24 13:25 Blood Culture (Wb) - Anticubital Left Blood Culture - Final Escherichia coli ABG Data ABG results: ABG 05/10/24 11:01 Specimen Type ART Sample Site Art Line pH 7.39 Bicarbonate Actual 17.5 L Total CO2 18 Base Excess -7 L O2 Saturation 95 O2 % 25.0 ABG pCO2 28.6 L ABG pO2 74 L Respiration Rate 16 O2 Delivery Device Adult Vent Vent Mode AC Tidal Volume 450.0 POC PEEP 5 Rhythm Strip Rhythm Strip: A-fib Rate: 90 Imaging Radiology Impression Echocardiogram 05/08/24 21:04 Interpretation Summary The estimated ejection fraction is 65 %. Unable to assess diastolic dysfunction. The left atrium is moderately enlarged. Trivial mitral valve insufficiency. Ordering Physician: Elen Snydre Referring Physician: Quique Mims Performed By: Laurence Dawson RDCS Abdomen Ultrasound 05/10/24 11:46 IMPRESSION: Ascites. Dilated common bile duct measuring up to 9.6 mm. Sludge within the gallbladder with no associated gallbladder wall thickening nor pericholecystic fluid. Left renal cyst. Electronically Signed: Chika Rebollar MD at 14:34 EDT , Charges/Coding Visit Charges Inpatient E&M: 54702 [facility] L3
[2024-05-11] MEDS: Magnesium Chloride 64 MG Delay Rel.Tablet 128 MG PO (07:47)
[2024-05-11] MEDS: DULoxetine Hcl 60 MG Capsule PO (07:47)
[2024-05-11] MEDS: Tolterodine Tartrate 2 MG CAP.SA PO (07:47)
[2024-05-11] MEDS: Menthol/Lanolin/Calamine/Znox 113 GM Tube 1 APPLIC TOPICAL ×2 (07:48→20:50)
[2024-05-11] MEDS: Multivitamins,Therapeutic Tablet 1 TABLET GT (07:48)
[2024-05-11] MEDS: Chlorhexidine 15 ML PO ×2 (07:48→20:51)
[2024-05-11] MEDS: Aspirin 81 MG TAB.CHEW GT (07:49)
[2024-05-11] MEDS: Ceftriaxone 2 GM in 0.9% Normal Saline (50mL MB+) 50 ML IV (07:54)
[2024-05-11] MEDS: CHLORHEXIDINE GLUC 2% CLOTH 1 EACH TOWELETTE TOPICAL (07:55)
[2024-05-11] MEDS: Pantoprazole Sodium 40 MG in 0.9% Normal Saline (100mL MB+) 100 ML 330 MG IV ×2 (07:55→20:49)
[2024-05-11] MEDS: Sotalol Hydrochloride 80 MG Tablet 120 MG PO (08:01)
--- NOTE | 2024-05-11 08:38 | PN.CARD_ITS ---
Subjective Subjective Patient remains sedated and on the ventilator. There was a weaning trial yesterday her heart rate went up to 130-140 bpm in atrial fibrillation. The patient has been in atrial fibrillation now since early on in this admission. Her creatinine clearance today has improved but it is still less than 30 so she will remain on sotalol 120 mg every other day until her creatinine clearance is above 30. Pressors have been weaned significantly and her blood pressure is tolerating the weaning of the pressors. Objective Data Vital Signs: Vital Signs Temp Pulse Resp BP Pulse Ox O2 Del Method O2 Flow Rate 97.5 F L 86 18 135/81 H 99 Mechanical Ventilator 3 05/11/24 06:00 05/11/24 07:09 05/11/24 07:09 05/11/24 07:00 05/11/24 07:09 05/11/24 07:00 05/08/24 18:52 FiO2 30 05/11/24 07:09 Oxygen Flow Rate (L/min) 3 Oxygen Delivery Method Mechanical Ventilator Weight: 260 lb 2.327 oz Body Mass Index (BMI) 47.8 Intake & Output: Intake and Output for Last 24 Hours 05/09/24 05/10/24 05/11/24 23:59 23:59 23:59 Intake Total 6502.60 / 6597.30 5244.13 / 5249.37 176.19 / 176.19 Output Total 165 / 165 905 / 905 350 / 350 Balance 6337.60 / 6432.30 4339.13 / 4344.37 -173.81 / -173.81 Lab / Micro Data Attestation: I reviewed the patient's lab results. 05/11/24 05:10 05/11/24 05:10 Labs: Laboratory Results - last 24 hr 05/10/24 02:20: Diff Path Review Reviewed 05/10/24 09:40: APTT 51.7 H 05/10/24 11:55: POC Glucose 120 H 05/10/24 16:12: APTT 49.4 H 05/10/24 17:14: POC Glucose 102 05/10/24 22:45: APTT 45.8 H 05/10/24 23:07: POC Glucose 74 05/11/24 04:25: POC Glucose 132 H 05/11/24 05:10: WBC 35.6 H*, RBC 4.61, Hgb 13.1, Hct 38.0, MCV 82.4, MCH 28.4, MCHC 34.5, RDW Std Deviation 46.1 H, RDW Coeff of Nabor 15.3 H, Plt Count 59 L, MPV 11.2, Immature Gran % (Auto) 1.700 H, Neut % (Auto) 92.0 H, Lymph % (Auto) 3.2 L, Wayne % (Auto) 3.0, Eos % (Auto) 0.0, Baso % (Auto) 0.1, Absolute Neuts (auto) 32.8 H, Absolute Lymphs (auto) 1.15, Nucleated RBC % 0.1, Differential Comment SCANNED, Diff Path Review November, APTT 38.8 H, Sodium 136, Potassium 3.8, Chloride 106, Carbon Dioxide 21.0, Anion Gap 9, BUN 59 H, Creatinine 2.01 H , Estim Creat Clear Calc 29.04, Est GFR (MDRD) Af Amer 31 L, Est GFR (MDRD) Non- Af 26 L, BUN/Creatinine Ratio 29.4 H, Glucose 146 H, Calcium 7.5 L, Total Bilirubin 1.10 H, AST 684 H, ALT 1094 H, Alkaline Phosphatase 177 H, Total Protein 5.1 L, Albumin 1.9 L, Globulin 3.2, Albumin/Globulin Ratio 0.6 L Micro: Microbiology 05/08/24 22:40 Blood Culture (Wb) - Line Draw Blood Culture - Preliminary No growth in 48 hours. 05/08/24 20:05 Blood Culture (Wb) - Port Blood Culture - Preliminary No growth in 48 hours. 05/08/24 13:50 Urine, Clean Catch Urine Culture - Final Presumptive E. coli 05/08/24 13:25 Blood Culture (Wb) - Anticubital Left Blood Culture - Final Escherichia coli ABG Data ABG results: ABG 05/10/24 11:01 Specimen Type ART Sample Site Art Line pH 7.39 Bicarbonate Actual 17.5 L Total CO2 18 Base Excess -7 L O2 Saturation 95 O2 % 25.0 ABG pCO2 28.6 L ABG pO2 74 L Respiration Rate 16 O2 Delivery Device Adult Vent Vent Mode AC Tidal Volume 450.0 POC PEEP 5 Rhythm Strip Rhythm Strip: A-fib Rate: 85 Cardiology Labs/Tests 05/10/24 09:40: APTT 51.7 H 10/18/24 11:01: pH 7.39, Bicarbonate Actual 17.5 L, Base Excess -7 L, O2 Saturation 95, ABG pCO2 28.6 L, ABG pO2 74 L 05/10/24 16:12: APTT 49.4 H 05/10/24 22:45: APTT 45.8 H 05/11/24 05:10: WBC 35.6 H*, RBC 4.61, Hgb 13.1, Hct 38.0, MCV 82.4, MCH 28.4, MCHC 34.5, Plt Count 59 L, MPV 11.2, Immature Gran % (Auto) 1.700 H, Neut % (Auto) 92.0 H, Lymph % (Auto) 3.2 L, Wayne % (Auto) 3.0, Eos % (Auto) 0.0, Baso % (Auto) 0.1, Absolute Neuts (auto) 32.8 H, Nucleated RBC % 0.1, APTT 38.8 H, Sodium 136, Potassium 3.8, Chloride 106, Carbon Dioxide 21.0, Anion Gap 9, BUN 59 H, Creatinine 2.01 H, Est GFR (MDRD) Af Amer 31 L, Est GFR (MDRD) Non-Af 26 L , BUN/Creatinine Ratio 29.4 H, Glucose 146 H, Calcium 7.5 L, Total Bilirubin 1.10 H Rhythm: EKG: ECHO: Stress Test: Cardiac Cath: PCI: CT Surgery: Holter monitor: EPS: PPM: CXR: Chest CT Scan: Radiography Diagnostic Testing: Radiology Impression Echocardiogram 05/08/24 21:04 Interpretation Summary The estimated ejection fraction is 65 %. Unable to assess diastolic dysfunction. The left atrium is moderately enlarged. Trivial mitral valve insufficiency. Ordering Physician: Elen Snyder Referring Physician: Quique Mims Performed By: Laurence Dawson RDCS Abdomen Ultrasound 05/10/24 11:46 IMPRESSION: Ascites. Dilated common bile duct measuring up to 9.6 mm. Sludge within the gallbladder with no associated gallbladder wall thickening nor pericholecystic fluid. Left renal cyst. Electronically Signed: Chika Rebollar MD at 14:34 EDT , Physical Exam Narrative Intubated and sedated Const Constitutional Narrative: Sedated HEENT head/scalp atraumatic Neck Neck Narrative: Thick neck with no obvious JVD. Chest Chest Narrative: Increased AP diameter due to body habitus Resp normal respiratory effort Resp Narrative: On the ventilator Auscultation: diminished lung sounds bilateral lower Cardio Cardio Narrative: Distant heart tones due to body habitus and ventilatory support. Rate: regular rate Rhythm: abnormal rhythm irregularly irregular Heart Sounds: S1 normal and S2 normal; Negative for click, gallop or murmur GI soft to palpation GI Narrative: Obese Extremity no pedal edema Skin no rashes or lesions noted Neuro Neuro Narrative: Sedated Psych Psych Narrative: Sedated Assessment & Plan Assessment/Plan (1) Septic shock: PLAN: Patient's blood pressure is improving with titration and weaning of pressors. Heart rate is appropriate for her atrial fibrillation given her septic situation. The patient does have shock liver with elevated LFTs. She remains on heparin for her atrial fibrillation and I would recommend checking a PT for liver function. (2) Atrial fibrillation: QUALIFIERS: Atrial fibrillation type: paroxysmal Qualified Code(s): I48.0 - Paroxysmal atrial fibrillation PLAN: Patient's atrial fibrillation is rate controlled and she is on IV heparin. Historically the patient has been controlled with Betapace she does have a moderately enlarged left atrium on her echo done yesterday with an ejection fraction of 65% and normal LV function. She has no significant valvular heart disease on the echo. Will continue sotalol at 120 mg every other day until her creatinine clearance is above 30 then will increase it to 120 mg daily. This will help with rate control and also potentially allow us to obtain chemical cardioversion back to sinus rhythm once her sepsis clears. She should remain anticoagulated unless surgical intervention is needed. Then the anticoagulation can be interrupted as needed. Once taking oral and her LFTs returned back toward baseline with near normal or normal PT her Eliquis could be reinstituted. Given her renal situation I would recommend instituting it at 2.5 mg twice daily because of her age and creatinine above 1.5. If possible surgical intervention is contemplated later in this hospitalization then she should remain on IV heparin or full dose Lovenox. Cardiology will be available to address changes in her status as they impact the management of her atrial fibrillation. (3) Long-term use of high-risk medication: PLAN: Patient should continue on her sotalol the dose will be adjusted as her creatinine clearance and renal function improved. Her home dose was 120 mg daily. Her creatinine clearance prior to this admission was 55. PLAN: Plan 1. Continue anticoagulation for atrial fibrillation. 2. Anticoagulation can be interrupted as needed for surgical intervention. 3. Continue to monitor creatinine clearance once above 30 would increase his sotalol to 120 mg daily. 4. Cardiology will follow peripherally please call if further assistance is needed. Charges/Coding Visit Charges Inpatient E&M: [id number] [place] [id number]
[2024-05-11] MEDS: TITRATION PARAMETER CHANGE 1 EACH IV (09:19)
--- NOTE | 2024-05-11 09:43 | PN.CC_ITS ---
Objective Data Objective Data Vital Signs: Vital Signs Last response 3 Temperature 36.6 C 05/11/24 08:00 Temperature Source Core 05/11/24 08:00 Pulse Rate 90 05/11/24 08:00 Pulse Strength Weak (1+) 05/09/24 19:31 Respiratory Rate 19 H 05/11/24 08:00 Respiratory Effort Mechanically Ventilated 05/11/24 04:00 Respiratory Depth Normal 05/11/24 04:00 Respiratory Pattern Normal 05/11/24 07:09 Blood Pressure 119/70 05/11/24 08:45 Blood Pressure Mean 86 05/11/24 08:45 Blood Pressure Source Arterial Line 05/11/24 08:45 Blood Pressure Position Semi-Fowlers 05/10/24 07:00 Blood Pressure Location Left Arm 05/10/24 07:00 Pulse Ox 99 05/11/24 08:00 Oxygen Delivery Method Mechanical Ventilator 05/11/24 08:00 Oxygen Flow Rate (L/min) 3 05/08/24 18:52 Fraction of Inspired Oxygen (FIO2) 30 05/11/24 08:00 CLA-BSI maintained Yes 05/11/24 08:00 I&O: I&O Last 24 Hours 3 05/10/24 05/10/24 05/11/24 11:59 23:59 11:59 Intake Total 3467.44 / 5249.37 1776.69 / 5249.37 1343.97 / 1343.97 Output Total 425 / 905 480 / 905 350 / 350 Balance 3042.44 / 4344.37 1296.69 / 4344.37 993.97 / 993.97 I&O: Total Stay 3 05/08/24 12:41 thru 05/11/24 08:52 Intake Total 79045.51 Output Total 1470 Balance 44544.51 Current Meds Ordered / Administered: Current meds ordered / Administered 3 Generic Name Dose Route Start Last Admin Trade Name Freq PRN Reason Stop Dose Admin Acetaminophen 650 mg 05/08/24 21:48 05/10/24 11:41 Acetaminophen 325 Mg Tablet GT 650 mg Q6H PRN PRN Administration Pain 1-10 Or Fever >100.7 Albuterol/Ipratropium 3 ml 05/08/24 18:57 05/09/24 17:48 Ipratropium/Albuterol Sulfate 3 Ml Ampul.Neb INHALATION 3 ml Q4HWA.RT PRN Administration SHORTNESS OF BREATH Aspirin 81 mg 05/09/24 08:00 05/11/24 07:49 Aspirin 81 Mg Tab.Chew GT 81 mg BREAKFAST EM Administration Buspirone HCl 20 mg 05/08/24 22:00 05/11/24 04:59 Buspirone 5 Mg Tablet GT Not Given TID EM Calamine/Phenol 1 applic 05/08/24 22:00 05/11/24 07:48 Menthol/Lanolin/Calamine/Znox 113 Gm Tube TOPICAL 1 applic BID EM Administration Protocol Chlorhexidine Gluconate 15 ml 05/08/24 22:00 05/11/24 07:48 Chlorhexidine 15 Ml PO 15 ml BID EM Administration Chlorhexidine Gluconate 1 each 05/09/24 10:00 05/11/24 07:55 Chlorhexidine Gluc 2% Cloth 1 Each Tow[place]lette TOPICAL 1 each DAILY EM Administration Doxazosin Mesylate 2 mg 05/08/24 22:00 05/10/24 20:47 Doxazosin 4 Mg Tablet GT Not Given QHS EM Duloxetine HCl 60 mg 05/09/24 10:00 05/11/24 07:47 Duloxetine Hcl 60 Mg Capsule PO 60 mg DAILY EM Administration Ergocalciferol 1.25 mg 05/10/24 10:00 05/10/24 08:08 Ergocalciferol 1.25 Mg (50, 000 Unit) Capsule PO Not Given Fr@1000 EM Glucagon 1 mg 05/08/24 18:59 Glucagon 1 Mg/Ml Syringe IM X1 PRN Hypoglycemia Protocol Heparin Sodium (Beef Lung) 50 units 05/08/24 17:49 Heparin Pf Lock 10 Units/Ml 50 Units/5 Ml Syringe IV UD PRN Port-a-Cath (VAD)Heparin Flush Heparin Sodium (Porcine) 0 unit 05/08/24 22:00 05/11/24 05:58 Heparin Injection (Vial) 5,000 Unit/Ml Vial IV 1,000 unit UD PRN Administration dose adjustment Protocol Hydrocortisone Sodium Succinate 100 mg 05/08/24 23:55 05/11/24 05:00 Hydrocortisone Sod Succinate 100 Mg/2 Ml Vial IV 100 mg Q8 EM Administration Dextrose 250 mls @ 0 mls/hr 05/08/24 18:59 Dextrose 10%-Water IV .Q0M PRN HYPOGLYCEMIA Protocol As Directed Fentanyl 100 mls @ 5 mls/hr 05/08/24 21:05 05/11/24 07:00 CONT INF 25 mcg/hr UD EM 2.5 mls/hr Titration Protocol 50 MCG/HR Vasopressin 20 units/ Sodium 25 mls @ 3 mls/hr 05/09/24 00:30 05/11/24 08:45 Chloride CONT INF Not Given .Q8H20M EM 0.04 UNITS/MIN Phenylephrine HCl 40 mg/ 250 mls @ 3.75 mls/hr 05/09/24 11:05 05/09/24 19:00 Sodium Chloride CONT INF 0 mcg/min .[id number] EM 0 mls/hr Titration Protocol 10 MCG/MIN Norepinephrine Bitartrate 16 250 mls @ 4.688 mls/hr 05/09/24 11:50 05/11/24 08:45 mg/ Sodium Chloride CONT INF 4 mcg/min .[id number] EM 3.8 mls/hr Titration Protocol 5 MCG/MIN Pantoprazole Sodium 40 mg/ 110 mls @ 330 mls/hr 05/09/24 22:00 05/11/24 08:46 Sodium Chloride IV Infused Q12 EM Infusion Dexmedetomidine HCl 400 mcg/ 100 mls @ 14.2 mls/hr 05/10/24 11:00 05/11/24 07:48 Sodium Chloride CONT INF Not Given .Q7H3M EM Protocol 0.5 MCG/KG/HR Ceftriaxone Sodium 2 gm/ 50 mls @ 100 mls/hr 05/10/24 13:10 05/11/24 08:46 Sodium Chloride IV Infused QAM EM Infusion Heparin Sodium/Dextrose 25,000 units in 250 mls @ 11 mls/hr 05/11/24 09:00 CONT INF .[id number] EM Protocol As Directed Insulin Human Lispro 0 unit 05/09/24 18:00 05/11/24 04:59 Insulin Lispro 100 Unit/Ml Insuln.Pen SC Not Given Q6H EM Protocol Lorazepam 0.5 mg 05/08/24 18:57 Lorazepam 0.5 Mg Tablet PO BID PRN Anxiety Magnesium Chloride 128 mg 05/09/24 10:00 05/11/24 07:47 Magnesium Chloride 64 Mg Delay Rel.Tablet PO 128 mg DAILY EM Administration Multivitamins 1 tablet 05/09/24 08:00 05/11/24 07:48 Multivitamins,Therapeutic Tablet GT 1 tablet DAILYCM EM Administration Nystatin 1 applic 05/08/24 22:00 05/11/24 05:00 Nystatin Powder 15gm Bottle TOPICAL 1 applic TID [facility] Administration Protocol Oxycodone HCl 2.5 - 5 mg 05/08/24 18:38 Oxycodone 5 Mg Tablet PO Q4H PRN PRN Pain Score 4-10 Prochlorperazine Edisylate 5 mg 05/08/24 18:38 Prochlorperazine 10 Mg/2 Ml Vial IV Q4H PRN PRN Breakthrough nausea/vomiting Senna/Docusate Sodium 2 tablet 05/08/24 22:00 05/11/24 07:49 Senna/Docusate Sodium 1 Tablet GT Not Given BID [facility] Sodium Chloride 10 - 40 ml 05/08/24 17:49 05/11/24 05:04 0.9% Saline Lock 10 Ml Syringe IV 20 ml UD PRN Administration Port-a-Cath (VAD) Flush Sodium Chloride 5 ml 05/08/24 22:00 Sodium Cl For Inhalation 15 Ml Vial.Neb. INHALATION Q5M PRN Suctioning Sotalol HCl 120 mg 05/11/24 10:00 05/11/24 08:01 Sotalol Hydrochloride 80 Mg Tablet PO 05/11/24 10:01 120 mg X1 ONE Administration Protocol Tolterodine Tartrate 2 mg 05/09/24 10:00 05/11/24 07:47 Tolterodine Tartrate 2 Mg Cap.Sa PO 2 mg DAILY [facility] Administration Lab / Micro Data 05/11/24 05:10 05/11/24 05:10 Labs: Laboratory Results - last 24 hr 05/10/24 02:20: Diff Path Review Reviewed 05/10/24 09:40: APTT 51.7 H 05/10/24 11:55: POC Glucose 120 H 05/10/24 16:12: APTT 49.4 H 05/10/24 17:14: POC Glucose 102 05/10/24 22:45: APTT 45.8 H 05/10/24 23:07: POC Glucose 74 05/11/24 04:25: POC Glucose 132 H 05/11/24 05:10: WBC 35.6 H*, RBC 4.61, Hgb 13.1, Hct 38.0, MCV 82.4, MCH 28.4, MCHC 34.5, RDW Std Deviation 46.1 H, RDW Coeff of Nabor 15.3 H, Plt Count 59 L, MPV 11.2, Immature Gran % (Auto) 1.700 H, Neut % (Auto) 92.0 H, Lymph % (Auto) 3.2 L, Blanco % (Auto) 3.0, Eos % (Auto) 0.0, Baso % (Auto) 0.1, Absolute Neuts (auto) 32.8 H, Absolute Lymphs (auto) 1.15, Nucleated RBC % 0.1, Differential Comment SCANNED, Diff Path Review November, APTT 38.8 H, Sodium 136, Potassium 3.8, Chloride 106, Carbon Dioxide 21.0, Anion Gap 9, BUN 59 H, Creatinine 2.01 H , Estim Creat Clear Calc 29.04, Est GFR (MDRD) Af Amer 31 L, Est GFR (MDRD) Non- Af 26 L, BUN/Creatinine Ratio 29.4 H, Glucose 146 H, Calcium 7.5 L, Total Bilirubin 1.10 H, AST 684 H, ALT 1094 H, Alkaline Phosphatase 177 H, Total Protein 5.1 L, Albumin 1.9 L, Globulin 3.2, Albumin/Globulin Ratio 0.6 L Micro: Microbiology 05/08/24 22:40 Blood Culture (Wb) - Line Draw Blood Culture - Preliminary No growth in 48 hours. 05/08/24 20:05 Blood Culture (Wb) - Port Blood Culture - Preliminary No growth in 48 hours. 05/08/24 13:50 Urine, Clean Catch Urine Culture - Final Presumptive E. coli 05/08/24 13:25 Blood Culture (Wb) - Anticubital Left Blood Culture - Final Escherichia coli ABG Data ABG results: ABG 05/10/24 11:01 Specimen Type ART Sample Site Art Line pH 7.39 Bicarbonate Actual 17.5 L Total CO2 18 Base Excess -7 L O2 Saturation 95 O2 % 25.0 ABG pCO2 28.6 L ABG pO2 74 L Respiration Rate 16 O2 Delivery Device Adult Vent Vent Mode AC Tidal Volume 450.0 POC PEEP 5 Rhythm Strip Rhythm Strip: A-fib Rate: 85 Imaging Radiology Impression Echocardiogram 05/08/24 21:04 Interpretation Summary The estimated ejection fraction is 65 %. Unable to assess diastolic dysfunction. The left atrium is moderately enlarged. Trivial mitral valve insufficiency. Ordering Physician: Elen Snyder Referring Physician: Quique Mims Performed By: Laurence Dawson, RDCS Abdomen Ultrasound 05/10/24 11:46 IMPRESSION: Ascites. Dilated common bile duct measuring up to 9.6 mm. Sludge within the gallbladder with no associated gallbladder wall thickening nor pericholecystic fluid. Left renal cyst. Electronically Signed: Chika Rebollar MD at 14:34 EDT , Assessment and Plan . Assessment and plan: Critical Care Time: The entirety of this encounter was done via Telemedicine Subjective Subjective Pt seen and examined. Intubated, sedated. Still having RVR when stimulated/awake limiting SAT/SBT yet. Making more urine. Precedex @ 0.4 Fent @ 50 Nepi @ 2 Hep gtt 16 450 5 30 PE: General: Acute on chronically ill appearing morbidly obese female; + MV HEENT: anicteric Sclera; + ETT, nl nose; supple neck, no masses Cardiovascular: irreg irreg; +S1/S2; No rubs, gallops; no displaced PMI Respiratory: diminished; no crackles, wheezes, or rhonchi Abdominal: Non-tender; Non distended; hypoBS x 4; No Hepatosplenomegaly Extremities: Warm, well perfused; No clubbing, cyanosis; capillary refill < 2 sec Neurological: sedated but easily agitated A/P: #Acute hypercapnic respiratory failure: cont MV; cont sedation/analgesia but will trial Precedex to see if better able to tolerate future SAT +/- SBTs per protocol; cont PO buspirone #Septic shock: sp fluid boluses; cont pressors to keep MAP > 65; stress dose steroids, emp IV Abx; F/U Cx --> pressor requirements improving, down to low dose NEpi doses but off vaso/Devan #Pyelonephritis: see above; monitor temp curve/WBC/band %; pansensitive E. coli on initial BCx; ID on board & helping manage antimicrobials #Lt hydronephrosis 2* to obstructing nephrolithiasis: sp cystoscopy with stent placement; urology on board #ROSANA: ?prerenal vs ATN vs other; nonoliguric; will switch HCO3 gtt to LR; cont strict I/Os --> IVF D/C, monitor #Elevated LFTs: ?shock liver from earlier severe hypotension vs other; get abd U/S; avoid hepatoxic meds --> surgery consult noted, agree with recommendations #AFib on Eliquis: cardiology following; cont sotalol and F/U limited TTE; currently on hep gtt but being discontinued today due to low PLTs #NSTEMI: likely type II; on hep gtt given concurrent AF; cardiology following --> hep gtt D/C #Acute encephalopathy: likely toxic/metabolic; initial head CT unremarkable; cont supportive management #COPD (nonsmoker, 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
[2024-05-11] MEDS: dexMEDEtomidine 400 MCG in 0.9% Normal Saline (100mL Bag) 96 ML 11.4 MCG CONT INF (11:07)
[2024-05-11 11:24] LABS: Bedside Glucose 121 mg/dL (74-106)
--- NOTE | 2024-05-11 11:29 | PN_ITS ---
Subjective Subjective Patient seen and examined. She remains intubated and sedated. Her daughter was by her bedside. She is now on Precedex and only norepinephrine drips. Her platelets have dropped to 59 today. There was 64 yesterday. WBC is also good up to 35.6. Of note she is on IV hydrocortisone though. Cr is 2.01. Liver enzymes have trended down very slightly. Objective Data Objective Data Vital Signs: Vital Signs Temp Pulse Resp BP Pulse Ox O2 Del Method O2 Flow Rate 97.8 F 79 19 H 99/58 L 99 Mechanical Ventilator 3 05/11/24 08:00 05/11/24 10:22 05/11/24 10:22 05/11/24 10:45 05/11/24 10:22 05/11/24 10:00 05/08/24 18:52 FiO2 30 05/11/24 10:22 Oxygen Flow Rate (L/min) 3 Oxygen Delivery Method Mechanical Ventilator Weight: 260 lb 2.327 oz Body Mass Index (BMI) 47.8 Intake & Output: Intake and Output for Last 24 Hours 05/09/24 05/10/24 05/11/24 23:59 23:59 23:59 Intake Total 6502.60 / 6597.30 5244.13 / 5249.37 1499.38 / 1499.38 Output Total 165 / 165 905 / 905 650 / 650 Balance 6337.60 / 6432.30 4339.13 / 4344.37 849.38 / 849.38 Lab / Micro Data 05/11/24 05:10 05/11/24 05:10 Labs: Laboratory Results - last 24 hr 05/10/24 02:20: Diff Path Review Reviewed 05/10/24 11:55: POC Glucose 120 H 05/10/24 16:12: APTT 49.4 H 05/10/24 17:14: POC Glucose 102 05/10/24 22:45: APTT 45.8 H 05/10/24 23:07: POC Glucose 74 05/11/24 04:25: POC Glucose 132 H 05/11/24 05:10: WBC 35.6 H*, RBC 4.61, Hgb 13.1, Hct 38.0, MCV 82.4, MCH 28.4, MCHC 34.5, RDW Std Deviation 46.1 H, RDW Coeff of Nabor 15.3 H, Plt Count 59 L, MPV 11.2, Immature Gran % (Auto) 1.700 H, Neut % (Auto) 92.0 H, Lymph % (Auto) 3.2 L, [place] % (Auto) 3.0, Eos % (Auto) 0.0, Baso % (Auto) 0.1, Absolute Neuts (auto) 32.8 H, Absolute Lymphs (auto) 1.15, Nucleated RBC % 0.1, Differential Comment SCANNED, Diff Path Review November, APTT 38.8 H, Sodium 136, Potassium 3.8, Chloride 106, Carbon Dioxide 21.0, Anion Gap 9, BUN 59 H, Creatinine 2.01 H , Estim Creat Clear Calc 29.04, Est GFR (MDRD) Af Amer 31 L, Est GFR (MDRD) Non- Af 26 L, BUN/Creatinine Ratio 29.4 H, Glucose 146 H, Calcium 7.5 L, Total Bilirubin 1.10 H, AST 684 H, ALT 1094 H, Alkaline Phosphatase 177 H, Total Protein 5.1 L, Albumin 1.9 L, Globulin 3.2, Albumin/Globulin Ratio 0.6 L 05/11/24 11:06: POC Glucose 121 H Micro: Microbiology 05/08/24 22:40 Blood Culture (Wb) - Line Draw Blood Culture - Preliminary No growth in 48 hours. 05/08/24 20:05 Blood Culture (Wb) - Port Blood Culture - Preliminary No growth in 48 hours. 05/08/24 13:50 Urine, Clean Catch Urine Culture - Final Presumptive E. coli 05/08/24 13:25 Blood Culture (Wb) - Anticubital Left Blood Culture - Final Escherichia coli 05/09/24 02:02 Sputum, Induced/Lukens Gram Stain - Final 05/09/24 01:00 Stool Enteric Bacteriology - Final 05/09/24 01:00 Stool Clostridioides difficile (PCR) - Final 05/08/24 13:25 Mucosa - Nose SARS-CoV-2, Influenza & RSV (PCR) - Final Radiography Diagnostic Testing: Radiology Impression Echocardiogram 05/08/24 21:04 Interpretation Summary The estimated ejection fraction is 65 %. Unable to assess diastolic dysfunction. The left atrium is moderately enlarged. Trivial mitral valve insufficiency. Ordering Physician: Elen Snyder Referring Physician: Quique Mims Performed By: Laurence Dawson, RDCS Abdomen Ultrasound 05/10/24 11:46 IMPRESSION: Ascites. Dilated common bile duct measuring up to 9.6 mm. Sludge within the gallbladder with no associated gallbladder wall thickening nor pericholecystic fluid. Left renal cyst. Electronically Signed: Chika Rebollar MD at 14:34 EDT , Rhythm Strip Rhythm Strip: A-fib Rate: 85 Physical Exam Const Constitutional Narrative: lethargic, sedated, RASS score is -4 HEENT normocephalic and head/scalp atraumatic Eyes PERRL and EOMs intact bilaterally Neck no lymphadenopathy, supple and no JVD Lymph Lymphatic: no lymphadenopathy noted Resp Resp Narrative: intubated, sedated, RASS score is -4, diminished breath sounds bibasally, no wheezes or crackles. Effort and Inspection: tachypneic Cardio S1 normal heart sound, S2 normal heart sound and no murmurs Cardio Narrative: tachypneic GI normal to inspection, nondistended, normoactive bowel sounds, soft to palpation, non-tender and non-distended Extremity normal capillary refill, no clubbing, cyanosis or edema and no calf tenderness General Extremity: no tenderness to palpation of joints or extremities Skin General Skin Exam: no breakdown Neuro Motor Exam: general weakness Psych Psych Narrative: lethargic, intubated, RASS is -4 Assessment & Plan Assessment/Plan (1) Bacteremia due to Gram-negative bacteria: (2) Septic shock: (3) Elevated troponin: PLAN: Plan #Septic shock * Likely due to infected kidney stone and left-sided pyelonephritis. * CT of the abdomen showed 2 mm stone in the proximal left ureter with extensive perinephric stranding and mild left hydronephrosis * she is s/p cystoscopy with stent placement in the proximal left ureter * Patient remains on vasopressors; is now off vasopressin and neosynephrine. * Critical care and urology on board. ID also on board. Antibiotics narrowed down to IV ceftriaxone due to culture results. * urine culture and blood culture growing E coli. * Titrate vasopressors to maintain MAP more than 65 * WBC has trended up further to 35.6 today. However I feel this is likely also due to her being on IV hydrocortisone. #Acute hypoxic respiratory failure * A CODE BLUE was called the patient still had a pulse so was changed to a rapid response. She was breathing rapidly. CT of the brain showed no acute intracranial pathology. * Was intubated to protect airway. She still remains intubated. * Breathing treatments and bronchodilators. * critical care on board. * #Non-STEMI * Patient noted to have markedly elevated troponins. Cardiology was on board * She is to have 2D echo and then further recommendations per cardiology. * Currently on heparin drip * Likely due to demand ischemia from septic shock * On aspirin * 2D echo showed EF of 65% and unable to assess diastolic dysfunction and no regional wall motion abnormalities noted. Left atrium moderately enlarged with no Doppler evidence for ASD * #ROSANA on CKD with anion gap metabolic acidosis * Creatinine has trended down slightly to 2.01 from 2.63 yesterday * Anion gap is only 9. Bicarb is now 21. Was on bicarb drip. * Will continue monitoring. Hold off on nephrology consult for now. * #Thrombocytopenia: * Platelets down to 59 today. It was 64 yesterday. * Was normal at admission. Likely due to sepsis and septic shock. * However she has been on heparin drip and this could also be contributing. * Will DC heparin drip today. * If platelets continue to trend downwards will consult hematology * #Lactic acidosis: * Likely due to the septic shock. * Also contributing to the anion gap metabolic acidosis. * Should improve as shock resolves. #Elevated liver enzymes: * Bilirubin is 1.9 and AST and ALT also markedly elevated. * This is likely due to shock liver from septic shock. * Liver enzymes have trended down slightly today. Gallbladder ultrasound did show some gallbladder sludge. General surgery consulted and does not think there is any gallbladder pathology and thinks it would likely lead to the septic shock. * It would likely improve as shock resolves. Bilirubin is down to 1.1 today and AST is down to 684 from 3335 yesterday. ALT is also down 2094 from 1743 yesterday. ALP has however gone up to 177. #Hypocalcemia * Calcium today is up to 7.5.Will replace and trend #COPD: Not in exacerbation. Remains intubated. Breathing treatments bronchodilators #A-fib: sotalol on hold. Eliquis also on hold and currently on heparin drip. Heparin drip discontinued today because of her thrombocytopenia. #Type 2 diabetes mellitus: Currently n.p.o. as she is intubated. Insulin sliding scale. Accu-Cheks every 6 hours #History of ovarian cancer: On Avastin. To follow with Dr. Ochoa on discharge #CAD: has known EF of 60% #heart failure preserved ejection fraction: has known EF of 60%. Stable. Lasix on hold DVT prophylaxis: SCDs. Heparin drip discontinued due to thrombocytopenia Charges/Coding Visit Charges Inpatient E&M: 02862 Subs Hosp L3
[2024-05-11 12:08] LABS: International Normalized Ratio 1.2; Prothrombin Time (Protime)PT. 15.1 SECONDS (11.7-14.9)
[2024-05-11] MEDS: busPIRone 5 MG Tablet 20 MG GT ×2 (13:03→20:48)
[2024-05-11] MEDS: dexMEDEtomidine 400 MCG in 0.9% Normal Saline (100mL Bag) 96 ML 25.6 MCG CONT INF ×3 (15:43→23:38)
[2024-05-11] MEDS: Vital AF 1.2 Cal Liquid 1,000 ML 30 ML GT (16:29)
[2024-05-11 16:50] LABS: Bedside Glucose 104 mg/dL (74-106)
[2024-05-11] MEDS: Acetaminophen 325 MG Tablet 650 MG GT (20:49)
[2024-05-11] MEDS: Insulin Lispro 100 UNIT/ML INSULN.PEN SC (23:45)
[2024-05-11 23:57] LABS: Bedside Glucose 161 mg/dL (74-106)
[2024-05-12] VITALS (33 sets, daily range): BP systolic 120–155; BP diastolic 71–88; PULSE 69–96; RESP 12–36; TEMP 38.2–39.4; O2SAT 97–99; BMI 47.8
[2024-05-12] MEDS: CHLORHEXIDINE GLUC 2% CLOTH 1 EACH TOWELETTE TOPICAL (03:15)
[2024-05-12] MEDS: dexMEDEtomidine 400 MCG in 0.9% Normal Saline (100mL Bag) 96 ML 31.2 MCG CONT INF ×3 (03:15→09:37)
[2024-05-12] MEDS: 0.9% Saline Lock 10 ML Syringe IV ×2 (03:15→05:15)
[2024-05-12] MEDS: Hydrocortisone Sod Succinate 100 MG/2 ML Vial IV (05:15)
[2024-05-12] MEDS: Nystatin Powder 15gm Bottle 1 APPLIC TOPICAL ×3 (05:15→20:25)
[2024-05-12] MEDS: Acetaminophen 325 MG Tablet 650 MG GT ×2 (05:16→20:27)
[2024-05-12] MEDS: busPIRone 5 MG Tablet 20 MG GT ×3 (05:16→20:27)
[2024-05-12] MEDS: Insulin Lispro 100 UNIT/ML INSULN.PEN SC ×4 (05:23→23:14)
[2024-05-12 05:43] LABS: Absolute Lymphocyte Count 1.23 X10^3/uL (0.83-4.51); Absolute Neutrophil Count 34.4 X10^3/uL (2.0-7.7); Basophil# 0.01 X10^3/uL; Eosinophil# 0.06 X10^3/uL; Eosinophils% 0.2 % (0-5); Hematocrit 39.3 % (37-47); Hemoglobin 13.4 g/dL (12.0-15.0); Lymphocyte # 1.23 X10^3/ul (0.83-4.51); Lymphocyte % 3.2 % (19-41); Mean Corp Hgb Conc 34.1 g/dL (32-36); Mean Corpuscular Hgb 27.9 pg (27.0-32.0); Mean Corpuscular Volume 81.7 fL (81-99); Mean Platelet Vol. 13.4 fl (6.2-12.0); Monocyte# 1.15 X10^3/uL; NRBC Flagged by Analyzer 0.2 % (0-5); Neutrophil # 34.39 X10^3/uL (2.7-7.7); Neutrophil % 90.8 % (47-70); POSITIVE COUNT YES; POSITIVE DIFFERENTIAL YES; POSITIVE MORPHOLOGY YES; Platelet Count 64 K/mm3 (150-450); RBC Distribution Width CV 14.9 % (11.6-14.6); RBC Distribution Width SD 44.2 fl (35.1-43.9); Red Blood Count 4.81 M/mm3 (4.2-5.4)
[2024-05-12 05:51] LABS: Bedside Glucose 204 mg/dL (74-106)
[2024-05-12 06:05] LABS: ALB/GLOB Ratio 0.5 RATIO (0.9-2.4); AST(SGOT) 199 U/L (15-37); Alanine Aminotransfer ALT/SGPT 678 U/L (13-56); Albumin, Serum 1.7 g/dL (3.2-5.0); Alkaline Phosphatase 189 U/L (45-117); Anion Gap 10 (5-15); BUN 63 mg/dL (7-18); Calcium,Total 7.6 mg/dL (8.5-10.1); Chloride 108 mmol/L (98-107); EST Glomerular Filtration Rate 29 mL/min (>60); Est Glom Filt Rate - Afr Amer 35 mL/min (>60); Estimated Creatinine Clearance 32.55 ml/min; Globulin 3.3 g/dL (2.2-4.2); Glucose 229 mg/dL (74-106); Potassium 3.6 mmol/L (3.5-5.1); Sodium Level 138 mmol/L (136-145)
[2024-05-12 06:49] LABS: Differential Indicated SCAN CRITERIA MET; White Blood Count 37.9 K/mm3 (4.4-11.0)
[2024-05-12] MEDS: Chlorhexidine 15 ML PO ×2 (08:38→20:26)
[2024-05-12] MEDS: DULoxetine Hcl 60 MG Capsule PO (08:39)
[2024-05-12] MEDS: Tolterodine Tartrate 2 MG CAP.SA PO (08:39)
[2024-05-12] MEDS: Aspirin 81 MG TAB.CHEW GT (08:39)
[2024-05-12] MEDS: Multivitamins,Therapeutic Tablet 1 TABLET GT (08:39)
[2024-05-12] MEDS: Magnesium Chloride 64 MG Delay Rel.Tablet 128 MG PO (08:39)
[2024-05-12] MEDS: Menthol/Lanolin/Calamine/Znox 113 GM Tube 1 APPLIC TOPICAL ×2 (08:40→20:26)
[2024-05-12] MEDS: Ceftriaxone 2 GM in 0.9% Normal Saline (50mL MB+) 50 ML IV (08:46)
[2024-05-12] MEDS: Pantoprazole Sodium 40 MG in 0.9% Normal Saline (100mL MB+) 100 ML 330 MG IV ×2 (08:46→20:27)
--- NOTE | 2024-05-12 09:11 | PN.SURG_ITS ---
Subjective Subjective Patient is off pressors. Patient's LFTs are much improved. Patient still on the ventilator as she is having issues with anxiety when they are doing the weaning trials. Objective Data Objective Data Vital Signs: Vital Signs Temp Pulse Resp BP Pulse Ox O2 Del Method O2 Flow Rate 101.3 F H 80 27 H 149/83 H 98 Mechanical Ventilator 3 05/12/24 08:00 05/12/24 08:00 05/12/24 08:00 05/12/24 08:00 05/12/24 08:00 05/12/24 08:00 05/08/24 18:52 FiO2 30 05/12/24 08:00 Oxygen Flow Rate (L/min) 3 Oxygen Delivery Method Mechanical Ventilator Weight: 261 lb 11.2 oz Body Mass Index (BMI) 47.8 Intake & Output: Intake and Output for Last 24 Hours 05/10/24 05/11/24 05/12/24 23:59 23:59 23:59 Intake Total 5244.13 / 5249.37 2187.09 / 2298.98 740.50 / 740.50 Output Total 905 / 905 1125 / 1125 350 / 350 Balance 4339.13 / 4344.37 1062.09 / 1173.98 390.50 / 390.50 Lab / Micro Data 05/12/24 05:25 05/12/24 05:25 Labs: Laboratory Results - last 24 hr 05/11/24 11:06: POC Glucose 121 H 05/11/24 11:25: PT 15.1 H, INR 1.2 05/11/24 16:31: POC Glucose 104 05/11/24 23:38: POC Glucose 161 H 05/12/24 05:22: POC Glucose 204 H 05/12/24 05:25: WBC 37.9 H*, RBC 4.81, Hgb 13.4, Hct 39.3, MCV 81.7, MCH 27.9, MCHC 34.1, RDW Std Deviation 44.2 H, RDW Coeff of Nabor 14.9 H, Plt Count 64 L, M PV 13.4 H, Immature Gran % (Auto) 2.800 H, Neut % (Auto) 90.8 H, Lymph % (Auto) 3.2 L, [place] % (Auto) 3.0, Eos % (Auto) 0.2, Baso % (Auto) 0.0, Absolute Neuts (auto) 34.4 H, Absolute Lymphs (auto) 1.23, Nucleated RBC % 0.2, Diff Path Review November, Sodium 138, Potassium 3.6, Chloride 108 H, Carbon Dioxide 20.0 L, Anion Gap 10, BUN 63 H, Creatinine 1.80 H, Estim Creat Clear Calc 32.55, Est GFR (MDRD) Af Amer 35 L, Est GFR (MDRD) Non-Af 29 L, BUN/Creatinine Ratio 35.0 H , Glucose 229 H, Calcium 7.6 L, Total Bilirubin 0.60, AST 199 H, ALT 678 H, A lkaline Phosphatase 189 H, Total Protein 5.0 L, Albumin 1.7 L, Globulin 3.3, A lbumin/Globulin Ratio 0.5 L Micro: Microbiology 05/09/24 02:02 Sputum, Induced/Lukens Gram Stain - Final 05/09/24 02:02 Sputum, Induced/Lukens Respiratory Culture - Final Presumptive C albicans 05/09/24 13:00 Urine Catheter - Bruno Urine Culture - Final Culture exhibits no growth. 05/08/24 22:40 Blood Culture (Wb) - Line Draw Blood Culture - Preliminary No growth in 48 hours. 05/08/24 20:05 Blood Culture (Wb) - Port Blood Culture - Preliminary No growth in 48 hours. 05/08/24 13:50 Urine, Clean Catch Urine Culture - Final Presumptive E. coli 05/08/24 13:25 Blood Culture (Wb) - Anticubital Left Blood Culture - Final Escherichia coli 05/09/24 01:00 Stool Enteric Bacteriology - Final 05/09/24 01:00 Stool Clostridioides difficile (PCR) - Final 05/08/24 13:25 Mucosa - Nose SARS-CoV-2, Influenza & RSV (PCR) - Final Rhythm Strip Rhythm Strip: A-fib Rate: 85 Physical Exam Narrative Patient intubated and sedated GI soft to palpation Inspection: Negative for abdominal distention Assessment & Plan Assessment/Plan (1) Gallbladder sludge: (2) Elevated LFTs: (3) Hydronephrosis concurrent with and due to calculi of kidney and ureter: PLAN: s/p cysto w stent (4) Bacteremia due to Gram-negative bacteria: (5) Elevated troponin: (6) Septic shock: PLAN: Plan Patient's LFTs are much improved after being off pressors completely. No plans for any surgical intervention. Will sign off?please call with questions. Promise Bond M.D. Pager: [phone] [facility] [address] [place] [address], [address] [place] [id number] Office: [phone] Charges/Coding Visit Charges Inpatient E&M: 85306 Subs Hosp L2
[2024-05-12] MEDS: Fluconazole IVPB 400 MG/200 ML BAG 100 MG IV (10:25)
--- NOTE | 2024-05-12 10:31 | PN_ITS ---
Subjective Subjective Patient seen and examined. She remains intubated and sedated. RASS score remains -4. She has a fever today. Unable to do review of systems as she is still intubated and sedated. wbc today is 37.9. She is on IV hydrocortisone. WIll dc. Objective Data Objective Data Vital Signs: Vital Signs Temp Pulse Resp BP Pulse Ox O2 Del Method O2 Flow Rate 102.0 F H 82 26 H 145/80 H 98 Mechanical Ventilator 3 05/12/24 10:00 05/12/24 10:00 05/12/24 10:00 05/12/24 10:00 05/12/24 10:00 05/12/24 10:00 05/08/24 18:52 FiO2 30 05/12/24 10:00 Oxygen Flow Rate (L/min) 3 Oxygen Delivery Method Mechanical Ventilator Weight: 261 lb 11.2 oz Body Mass Index (BMI) 47.8 Intake & Output: Intake and Output for Last 24 Hours 05/10/24 05/11/24 05/12/24 23:59 23:59 23:59 Intake Total 5244.13 / 5249.37 2208.10 / 2319.99 1107.30 / 1107.30 Output Total 905 / 905 1125 / 1125 350 / 350 Balance 4339.13 / 4344.37 1083.10 / 1194.99 757.30 / 757.30 Lab / Micro Data 05/12/24 05:25 05/12/24 05:25 Labs: Laboratory Results - last 24 hr 05/11/24 11:06: POC Glucose 121 H 05/11/24 11:25: PT 15.1 H, INR 1.2 05/11/24 16:31: POC Glucose 104 05/11/24 23:38: POC Glucose 161 H 05/12/24 05:22: POC Glucose 204 H 05/12/24 05:25: WBC 37.9 H*, RBC 4.81, Hgb 13.4, Hct 39.3, MCV 81.7, MCH 27.9, MCHC 34.1, RDW Std Deviation 44.2 H, RDW Coeff of Nabor 14.9 H, Plt Count 64 L, M PV 13.4 H, Immature Gran % (Auto) 2.800 H, Neut % (Auto) 90.8 H, Lymph % (Auto) 3.2 L, [place] % (Auto) 3.0, Eos % (Auto) 0.2, Baso % (Auto) 0.0, Absolute Neuts (auto) 34.4 H, Absolute Lymphs (auto) 1.23, Nucleated RBC % 0.2, Diff Path Review November, Sodium 138, Potassium 3.6, Chloride 108 H, Carbon Dioxide 20.0 L, Anion Gap 10, BUN 63 H, Creatinine 1.80 H, Estim Creat Clear Calc 32.55, Est GFR (MDRD) Af Amer 35 L, Est GFR (MDRD) Non-Af 29 L, BUN/Creatinine Ratio 35.0 H , Glucose 229 H, Calcium 7.6 L, Total Bilirubin 0.60, AST 199 H, ALT 678 H, A lkaline Phosphatase 189 H, Total Protein 5.0 L, Albumin 1.7 L, Globulin 3.3, A lbumin/Globulin Ratio 0.5 L Micro: Microbiology 05/09/24 02:02 Sputum, Induced/Lukens Gram Stain - Final 05/09/24 02:02 Sputum, Induced/Lukens Respiratory Culture - Final Presumptive C albicans 05/09/24 13:00 Urine Catheter - Bruno Urine Culture - Final Culture exhibits no growth. 05/08/24 22:40 Blood Culture (Wb) - Line Draw Blood Culture - Preliminary No growth in 48 hours. 05/08/24 20:05 Blood Culture (Wb) - Port Blood Culture - Preliminary No growth in 48 hours. 05/08/24 13:50 Urine, Clean Catch Urine Culture - Final Presumptive E. coli 05/08/24 13:25 Blood Culture (Wb) - Anticubital Left Blood Culture - Final Escherichia coli 05/09/24 01:00 Stool Enteric Bacteriology - Final 05/09/24 01:00 Stool Clostridioides difficile (PCR) - Final 05/08/24 13:25 Mucosa - Nose SARS-CoV-2, Influenza & RSV (PCR) - Final Rhythm Strip Rhythm Strip: A-fib Rate: 85 Physical Exam Const Constitutional Narrative: lethargic, sedated, RASS score is -4 Orientation / Consciousness: lethargic HEENT normocephalic and head/scalp atraumatic Eyes PERRL and EOMs intact bilaterally Neck no lymphadenopathy, supple and no JVD Lymph Lymphatic: no lymphadenopathy noted Resp Resp Narrative: intubated, sedated, RASS score is -4, diminished breath sounds bibasally, no wheezes or crackles. Effort and Inspection: tachypneic Cardio S1 normal heart sound, S2 normal heart sound and no murmurs Cardio Narrative: tachypneic GI normal to inspection, nondistended, normoactive bowel sounds, soft to palpation, non-tender and non-distended Extremity normal capillary refill, no clubbing, cyanosis or edema and no calf tenderness General Extremity: no tenderness to palpation of joints or extremities Skin General Skin Exam: no breakdown Neuro CN's II-XII intact bilaterally and no focal motor deficits Motor Exam: general weakness Psych Psych Narrative: lethargic, intubated, RASS is -4 Assessment & Plan Assessment/Plan (1) Bacteremia due to Gram-negative bacteria: (2) Septic shock: (3) Elevated troponin: PLAN: Plan #Septic shock * Likely due to infected kidney stone and left-sided pyelonephritis. * CT of the abdomen showed 2 mm stone in the proximal left ureter with extensive perinephric stranding and mild left hydronephrosis * she is s/p cystoscopy with stent placement in the proximal left ureter * Patient remains on low dose levophed. She is on precedex and propofol * Critical care and urology on board. ID also on board. Antibiotics narrowed down to IV ceftriaxone due to culture results. * urine culture and blood culture growing E coli. Repeat blood cultures were negative * Titrate vasopressors to maintain MAP more than 65 * wbc is further up to 37.9 today. Will dc IV hydrocortisone * #Acute hypoxic respiratory failure * A CODE BLUE was called the patient still had a pulse so was changed to a rapid response. She was breathing rapidly. CT of the brain showed no acute intracranial pathology. * Was intubated to protect airway. She still remains intubated. * Breathing treatments and bronchodilators. * critical care on board. * sputum cultures growing yoselyn. WIll start on IV fluconazole 400mg daily * #Non-STEMI * Patient noted to have markedly elevated troponins. Cardiology was on board * She is to have 2D echo and then further recommendations per cardiology. * heparin drip dc'd due to thrombocytopenia * Likely due to demand ischemia from septic shock * On aspirin * 2D echo showed EF of 65% and unable to assess diastolic dysfunction and no regional wall motion abnormalities noted. Left atrium moderately enlarged with no Doppler evidence for ASD * #ROSANA on CKD with anion gap metabolic acidosis * Cr is 1.9 toay, continues to trend downwards. * Anion gap is only 9. Bicarb is 20 today. Was on bicarb drip. * Will continue monitoring. Hold off on nephrology consult for now. * #Thrombocytopenia: * platelets are slightly up to 64 from 59 yesterday. * Now off heparin drip. * will continue to trend platelets. likely due to septic shock * * #Lactic acidosis: * Likely due to the septic shock. * Also contributing to the anion gap metabolic acidosis. * Should improve as shock resolves. #Elevated liver enzymes: * Resolving. Total bilirubin is 0.6. AST and ALT continue to trend downwards. ALP slightly up from 1 7 7-1 89 today. * This is likely due to shock liver from septic shock. * Gallbladder ultrasound did show some gallbladder sludge. General surgery consulted and does not think there is any gallbladder pathology and thinks it would likely lead to the septic shock. * #Hypocalcemia * Calcium today is up to 7.6. Will continue to monitor. #COPD: Not in exacerbation. Remains intubated. Breathing treatments bronchodilators #A-fib: sotalol on hold. eliquis on hold as well as heparin drip due to thrombocytopenia #Type 2 diabetes mellitus: Currently n.p.o. as she is intubated. Insulin sliding scale. Accu-Cheks every 6 hours #History of ovarian cancer: On Avastin. To follow with Dr. Ochoa on discharge #CAD: has known EF of 60% #heart failure preserved ejection fraction: has known EF of 60%. Stable. Lasix on hold DVT prophylaxis: SCDs. Heparin drip discontinued due to thrombocytopenia Charges/Coding Visit Charges Inpatient E&M: 56636 [facility] Hosp L3
--- NOTE | 2024-05-12 11:34 | PN.CC_ITS ---
Objective Data Objective Data Vital Signs: Vital Signs Last response 3 Temperature 38.9 C H 05/12/24 11:00 Temperature Source Core 05/12/24 11:00 Pulse Rate 74 05/12/24 11:00 Pulse Strength Weak (1+) 05/09/24 19:31 Respiratory Rate 23 H 05/12/24 11:00 Respiratory Effort Mechanically Ventilated 05/12/24 08:00 Respiratory Depth Normal 05/12/24 08:00 Respiratory Pattern Normal 05/12/24 09:43 Blood Pressure 153/86 H 05/12/24 11:00 Blood Pressure Mean 108 05/12/24 11:00 Blood Pressure Source Arterial Line 05/12/24 11:00 Blood Pressure Position Semi-Fowlers 05/10/24 07:00 Blood Pressure Location Left Arm 05/10/24 07:00 Pulse Ox 98 05/12/24 11:00 Oxygen Delivery Method Mechanical Ventilator 05/12/24 11:00 Oxygen Flow Rate (L/min) 3 05/08/24 18:52 Fraction of Inspired Oxygen (FIO2) 30 05/12/24 11:00 CLA-BSI maintained Yes 05/12/24 10:00 I&O: I&O Last 24 Hours 3 05/11/24 05/11/24 05/12/24 11:59 23:59 11:59 Intake Total 1513.21 / 2319.99 694.89 / 2319.99 1128.60 / 1128.60 Output Total 650 / 1125 475 / 1125 350 / 350 Balance 863.21 / 1194.99 219.89 / 1194.99 778.60 / 778.60 I&O: Total Stay 3 05/08/24 12:41 thru 05/12/24 11:00 Intake Total 79856.24 Output Total 2595 Balance 51967.24 Current Meds Ordered / Administered: Current meds ordered / Administered 3 Generic Name Dose Route Start Last Admin Trade Name Freq PRN Reason Stop Dose Admin Acetaminophen 650 mg 05/08/24 21:48 05/12/24 05:16 Acetaminophen 325 Mg Tablet GT 650 mg Q6H PRN PRN Administration Pain 1-10 Or Fever >100.7 Albuterol/Ipratropium 3 ml 05/08/24 18:57 05/09/24 17:48 Ipratropium/Albuterol Sulfate 3 Ml Ampul.Neb INHALATION 3 ml Q4HWA.RT PRN Administration SHORTNESS OF BREATH Aspirin 81 mg 05/09/24 08:00 05/12/24 08:39 Aspirin 81 Mg Tab.Chew GT 81 mg BREAKFAST EM Administration Buspirone HCl 20 mg 05/08/24 22:00 05/12/24 05:16 Buspirone 5 Mg Tablet GT 20 mg TID EM Administration Calamine/Phenol 1 applic 05/08/24 22:00 05/12/24 08:40 Menthol/Lanolin/Calamine/Znox 113 Gm Tube TOPICAL 1 applic BID EM Administration Protocol Chlorhexidine Gluconate 15 ml 05/08/24 22:00 05/12/24 08:38 Chlorhexidine 15 Ml PO 15 ml BID EM Administration Chlorhexidine Gluconate 1 each 05/09/24 10:00 05/12/24 03:15 Chlorhexidine Gluc 2% Cloth 1 Each [place] TOPICAL 1 each DAILY EM Administration Doxazosin Mesylate 2 mg 05/08/24 22:00 05/11/24 20:52 Doxazosin 4 Mg Tablet GT Not Given QHS EM Duloxetine HCl 60 mg 05/09/24 10:00 05/12/24 08:39 Duloxetine Hcl 60 Mg Capsule PO 60 mg DAILY EM Administration Ergocalciferol 1.25 mg 05/10/24 10:00 05/10/24 08:08 Ergocalciferol 1.25 Mg (50, 000 Unit) Capsule PO Not Given Fr@1000 EM Glucagon 1 mg 05/08/24 18:59 Glucagon 1 Mg/Ml Syringe IM X1 PRN Hypoglycemia Protocol Heparin Sodium (Beef Lung) 50 units 05/08/24 17:49 Heparin Pf Lock 10 Units/Ml 50 Units/5 Ml Syringe IV UD PRN Port-a-Cath (VAD)Heparin Flush Heparin Sodium (Porcine) 0 unit 05/08/24 22:00 05/11/24 05:58 Heparin Injection (Vial) 5,000 Unit/Ml Vial IV 1,000 unit UD PRN Administration dose adjustment Protocol Dextrose 250 mls @ 0 mls/hr 05/08/24 18:59 Dextrose 10%-Water IV .Q0M PRN HYPOGLYCEMIA Protocol As Directed Fentanyl 100 mls @ 5 mls/hr 05/08/24 21:05 05/12/24 10:00 CONT INF 25 mcg/hr UD EM 2.5 mls/hr Titration Protocol 50 MCG/HR Norepinephrine Bitartrate 16 250 mls @ 4.688 mls/hr 05/09/24 11:50 05/12/24 10:07 mg/ Sodium Chloride CONT INF Infused .[id number] EM Titration Protocol 5 MCG/MIN Pantoprazole Sodium 40 mg/ 110 mls @ 330 mls/hr 05/09/24 22:00 05/12/24 10:02 Sodium Chloride IV Infused Q12 EM Infusion Ceftriaxone Sodium 2 gm/ 50 mls @ 100 mls/hr 05/10/24 13:10 05/12/24 10:03 Sodium Chloride IV Infused QAM EM Infusion Enteral Nutritional Formula 1,000 mls @ 50 mls/hr 05/11/24 13:30 05/12/24 08:39 Vital Af 1.2 [place] Liquid GT Not Given .Q20H EM Fluconazole 400 mg in 200 mls @ 100 mls/hr 05/12/24 10:00 05/12/24 10:25 Diflucan Ivpb IV 05/12/24 11:59 100 mls/hr X1 ONE Administration Fluconazole 200 mg in 100 mls @ 100 mls/hr 05/13/24 10:00 IV Q24 EM Dexmedetomidine HCl 1,000 mcg/ 250 mls @ 14.2 mls/hr 05/12/24 10:30 Sodium Chloride CONT INF .[id number] EM Protocol 0.5 MCG/KG/HR Insulin Human Lispro 0 unit 05/09/24 18:00 05/12/24 05:23 Insulin Lispro 100 Unit/Ml Insuln.Pen SC 4 u Q6H EM Administration Protocol Lorazepam 0.5 mg 05/08/24 18:57 Lorazepam 0.5 Mg Tablet PO BID PRN Anxiety Magnesium Chloride 128 mg 05/09/24 10:00 05/12/24 08:39 Magnesium Chloride 64 Mg Delay Rel.Tablet PO 128 mg DAILY EM Administration Multivitamins 1 tablet 05/09/24 08:00 05/12/24 08:39 Multivitamins,Therapeutic Tablet GT 1 tablet DAILYCM EM Administration Nystatin 1 applic 05/08/24 22:00 05/12/24 05:15 Nystatin Powder 15gm Bottle TOPICAL 1 applic TID EM Administration Protocol Oxycodone HCl 2.5 - 5 mg 05/08/24 18:38 Oxycodone 5 Mg Tablet PO Q4H PRN PRN Pain Score 4-10 Prochlorperazine Edisylate 5 mg 05/08/24 18:38 Prochlorperazine 10 Mg/2 Ml Vial IV Q4H PRN PRN Breakthrough nausea/vomiting Senna/Docusate Sodium 2 tablet 05/08/24 22:00 05/12/24 08:43 Senna/Docusate Sodium 1 Tablet GT Not Given BID [facility] Sodium Chloride 10 - 40 ml 05/08/24 17:49 05/12/24 05:15 0.9% Saline Lock 10 Ml Syringe IV 10 ml UD PRN Administration Port-a-Cath (VAD) Flush Sodium Chloride 5 ml 05/08/24 22:00 Sodium Cl For Inhalation 15 Ml Vial.Neb. INHALATION Q5M PRN Suctioning Sotalol HCl 120 mg 05/13/24 10:00 Sotalol Hydrochloride 80 Mg Tablet PO QODAY [facility] Protocol Tolterodine Tartrate 2 mg 05/09/24 10:00 05/12/24 08:39 Tolterodine Tartrate 2 Mg Cap.Sa PO 2 mg DAILY EM Administration Lab / Micro Data 05/12/24 05:25 05/12/24 05:25 Labs: Laboratory Results - last 24 hr 05/11/24 11:25: PT 15.1 H, INR 1.2 05/11/24 16:31: POC Glucose 104 05/11/24 23:38: POC Glucose 161 H 05/12/24 05:22: POC Glucose 204 H 05/12/24 05:25: WBC 37.9 H*, RBC 4.81, Hgb 13.4, Hct 39.3, MCV 81.7, MCH 27.9, MCHC 34.1, RDW Std Deviation 44.2 H, RDW Coeff of Nabor 14.9 H, Plt Count 64 L, M PV 13.4 H, Immature Gran % (Auto) 2.800 H, Neut % (Auto) 90.8 H, Lymph % (Auto) 3.2 L, Mason % (Auto) 3.0, Eos % (Auto) 0.2, Baso % (Auto) 0.0, Absolute Neuts (auto) 34.4 H, Absolute Lymphs (auto) 1.23, Nucleated RBC % 0.2, Diff Path Review November, Sodium 138, Potassium 3.6, Chloride 108 H, Carbon Dioxide 20.0 L, Anion Gap 10, BUN 63 H, Creatinine 1.80 H, Estim Creat Clear Calc 32.55, Est GFR (MDRD) Af Amer 35 L, Est GFR (MDRD) Non-Af 29 L, BUN/Creatinine Ratio 35.0 H , Glucose 229 H, Calcium 7.6 L, Total Bilirubin 0.60, AST 199 H, ALT 678 H, A lkaline Phosphatase 189 H, Total Protein 5.0 L, Albumin 1.7 L, Globulin 3.3, A lbumin/Globulin Ratio 0.5 L Micro: Microbiology 05/09/24 02:02 Sputum, Induced/Lukens Gram Stain - Final 05/09/24 02:02 Sputum, Induced/Lukens Respiratory Culture - Final Presumptive C albicans 05/09/24 13:00 Urine Catheter - Bruno Urine Culture - Final Culture exhibits no growth. 05/08/24 22:40 Blood Culture (Wb) - Line Draw Blood Culture - Preliminary No growth in 48 hours. 05/08/24 20:05 Blood Culture (Wb) - Port Blood Culture - Preliminary No growth in 48 hours. Rhythm Strip Rhythm Strip: A-fib Rate: 85 Assessment and Plan . Assessment and plan: Critical Care Time: The entirety of this encounter was done via Telemedicine Subjective Subjective Pt seen and examined. Intubated, sedated. Less episodes of RVR but now febrile again with temp up to 102.3. Making more urine. Precedex @ 1 Fent @ 25 TFs @ 40 + 100cc q4h 16 450 5 30 PE: General: Acute on chronically ill appearing morbidly obese female; + MV HEENT: anicteric Sclera; + ETT, nl nose; supple neck, no masses Cardiovascular: irreg irreg; +S1/S2; No rubs, gallops; no displaced PMI Respiratory: diminished; no crackles, wheezes, or rhonchi Abdominal: Non-tender; Non distended; hypoBS x 4; No Hepatosplenomegaly Extremities: Warm, well perfused; No clubbing, cyanosis; capillary refill < 2 sec Neurological: sedated but easily agitated A/P: #Acute hypercapnic respiratory failure: cont MV; cont sedation/analgesia; cont PO buspirone; F/U CXR/ABG #Septic shock: sp fluid boluses; cont pressors to keep MAP > 65; stress dose steroids, emp IV Abx; F/U Cx --> off pressors, stress dose steroids D/C by hospitalist this AM in the setting of C. albicans in sputum; given new onset fever and on-going critical illness will rebroaden emp IV Abx to vanc/Merrem and cover with micafungin; repeat BCx today & F/U additional ID recommendations #Pyelonephritis: see above; monitor temp curve/WBC/band %; pansensitive E. coli on initial BCx; ID on board #Lt hydronephrosis 2* to obstructing nephrolithiasis: sp cystoscopy with stent placement; urology on board #ROSANA: ?prerenal vs ATN vs other; nonoliguric; will switch HCO3 gtt to LR; cont strict I/Os --> improving; cont monitor #Elevated LFTs: ?shock liver from earlier severe hypotension vs other; get abd U/S; avoid hepatoxic meds --> surgery consult noted, agree with recommendations #AFib on Eliquis: cardiology following; cont sotalol and F/U limited TTE; sp hep gtt discontinued 05/11 due to low PLTs #NSTEMI: likely type II; on hep gtt given concurrent AF; cardiology following --> hep gtt D/C #Acute encephalopathy: likely toxic/metabolic; initial head CT unremarkable; cont supportive management #COPD (nonsmoker, felt to be 2* to industrial exposure 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
[2024-05-12 11:58] LABS: Bedside Glucose 210 mg/dL (74-106)
[2024-05-12] MEDS: fentaNYL drip 100 ML 2.5 MCG CONT INF (12:56)
[2024-05-12] MEDS: dexMEDEtomidine 1,000 MCG in 0.9% Normal Saline (250mL Bag) 240 ML 28.4 MCG CONT INF ×2 (12:56→20:53)
--- NOTE | 2024-05-12 13:20 | RAD_ITS ---
HISTORY: resp failure on vent. TECHNIQUE: XR Chest 1 View. COMPARISON: 05/09/2024. FINDINGS: LINES/TUBES: Right chest wall port, endotracheal, and nasogastric tube again seen. CARDIOMEDIASTINAL BORDERS: Stable. LUNGS: Mild bibasilar opacities. PLEURA: Mild pleural effusions. RAD/Chest 1 View (Portable) IMPRESSION: Mild pleural effusions with bibasilar atelectasis or pneumonia. Electronically Signed: Inés Crwo MD at 14:42 EDT ,
[2024-05-12] MEDS: Meropenem 1 GM in 0.9% Normal Saline (100mL MB+) 100 ML IV ×2 (13:29→20:53)
[2024-05-12] MEDS: Vancomycin HCl 1,750 MG in 0.9% Normal Saline (500mL Bag) 500 ML 250 MG IV (15:41)
[2024-05-12] MEDS: Vital AF 1.2 Cal Liquid 1,000 ML 50 ML GT (15:49)
--- NOTE | 2024-05-12 15:55 | PCM.RX.CS ---
Consult Antibiotic Management Pharmacy has been consulted to manage selected antibiotic: Vancomycin Type of Intervention Type of Consult: New start Labs Labs: Sodium 138 mmol/L (136-145) 05/12/24 05:25 Potassium 3.6 mmol/L (3.5-5.1) 05/12/24 05:25 Chloride 108 mmol/L (98-107) H 05/12/24 05:25 Carbon Dioxide 20.0 mmol/L (21.0-32.0) L 05/12/24 05:25 Anion Gap 10 (5-15) 05/12/24 05:25 BUN 63 mg/dL (7-18) H 05/12/24 05:25 Creatinine 1.80 mg/dL (0.55-1.02) H 05/12/24 05:25 Est GFR (MDRD) Af Amer 35 mL/min (>60) L 05/12/24 05:25 Est GFR (MDRD) Non-Af 29 mL/min (>60) L 05/12/24 05:25 BUN/Creatinine Ratio 35.0 RATIO (10-20) H 05/12/24 05:25 Glucose 229 mg/dL (74-106) H 05/12/24 05:25 Microbiology Microbiology: Microbiology 05/09/24 02:02 Sputum, Induced/Lukens Gram Stain - Final 05/09/24 02:02 Sputum, Induced/Lukens Respiratory Culture - Final Presumptive C albicans 05/09/24 13:00 Urine Catheter - Bruno Urine Culture - Final Culture exhibits no growth. 05/08/24 22:40 Blood Culture (Wb) - Line Draw Blood Culture - Preliminary No growth in 48 hours. 05/08/24 20:05 Blood Culture (Wb) - Port Blood Culture - Preliminary No growth in 48 hours. 05/08/24 13:50 Urine, Clean Catch Urine Culture - Final Presumptive E. coli 05/08/24 13:25 Blood Culture (Wb) - Anticubital Left Blood Culture - Final Escherichia coli 05/09/24 01:00 Stool Enteric Bacteriology - Final 05/09/24 01:00 Stool Clostridioides difficile (PCR) - Final 05/08/24 13:25 Mucosa - Nose SARS-CoV-2, Influenza & RSV (PCR) - Final Dosing Weight Weight used for dosin.7 kg Estimated Creatinine Clearance Estimated Creatinine Clearance: 33 ML/MIN Goal Trough Goal Trough: 15-20 mcg/mL Pharmacy Plan for Drug Dosing Pharmacy Plan for Drug Dosing: This is a restart from a couple days ago but since the patient has not had a dose for over 2.5 days will begin with an initial dose of 1750mg followed by 1500mg IV q24h. Will check a trough before the 3rd overall dose. Pharmacy Service will continue to monitor and adjust dosing as required. Follow-Up Labs Follow-Up Labs: Trough: Vancomycin Date/Time Labs Ordered Labs to be done on [date and time ordered]: 05/14/24 15:30
[2024-05-12 18:07] LABS: Bedside Glucose 229 mg/dL (74-106)
[2024-05-12] MEDS: Doxazosin 4 MG Tablet 2 MG GT (20:26)
[2024-05-12] MEDS: Senna/Docusate Sodium 1 Tablet 2 TABLET GT (20:27)
[2024-05-13] VITALS (35 sets, daily range): BP systolic 122–156; BP diastolic 65–91; PULSE 71–137; RESP 12–33; TEMP 36.6–38.8; O2SAT 94–99; BMI 48.9
[2024-05-13 00:20] LABS: Bedside Glucose 203 mg/dL (74-106)
[2024-05-13 00:24] LABS: Base Excess -4 mmol/L (-2 to +2); Bicarbonate 18.5 mmol/L (22-26); Blood Gas Specimen Type ART; Mode AC; O2 Delivery Device ET Tube; PEEP 5; PO2 89 mmHG (75-100); RR 16; SITE Art Line; SO2 98 % (95-99); Total Carbon Dioxide 19 mmol/L; pCO2 20.1 mmHg (35-45); pH 7.57 (7.35-7.45)
[2024-05-13] MEDS: busPIRone 5 MG Tablet 20 MG GT (05:36)
[2024-05-13] MEDS: dexMEDEtomidine 1,000 MCG in 0.9% Normal Saline (250mL Bag) 240 ML 28.4 MCG CONT INF (05:36)
[2024-05-13] MEDS: Insulin Lispro 100 UNIT/ML INSULN.PEN SC ×4 (05:36→23:35)
[2024-05-13] MEDS: Nystatin Powder 15gm Bottle 1 APPLIC TOPICAL ×3 (05:36→20:04)
[2024-05-13] MEDS: Acetaminophen 325 MG Tablet 650 MG GT (05:43)
[2024-05-13 05:45] LABS: Base Excess -5 mmol/L (-2 to +2); Bicarbonate 18.8 mmol/L (22-26); Blood Gas Specimen Type ART; Mode AC; O2 Delivery Device Adult Vent; PEEP 5; PO2 78 mmHG (75-100); RR 12; SITE Art Line; SO2 97 % (95-99); Total Carbon Dioxide 20 mmol/L; pCO2 24.6 mmHg (35-45); pH 7.49 (7.35-7.45)
[2024-05-13 05:47] LABS: Absolute Lymphocyte Count 1.73 X10^3/uL (0.83-4.51); Basophil# 0.04 X10^3/uL; Basophil% 0.1 % (0-1); Eosinophil# 0.01 X10^3/uL; Hematocrit 40.3 % (37-47); Hemoglobin 13.3 g/dL (12.0-15.0); Lymphocyte # 1.73 X10^3/ul (0.83-4.51); Lymphocyte % 5.7 % (19-41); Mean Corpuscular Hgb 27.4 pg (27.0-32.0); Mean Corpuscular Volume 82.9 fL (81-99); Mean Platelet Vol. 12.4 fl (6.2-12.0); Monocyte# 1.69 X10^3/uL; Monocyte% 5.5 % (0-10); NRBC Flagged by Analyzer 0.4 % (0-5); Neutrophil # 25.99 X10^3/uL (2.7-7.7); Neutrophil % 85.2 % (47-70); POSITIVE COUNT YES; POSITIVE DIFFERENTIAL YES; POSITIVE MORPHOLOGY YES; Platelet Count 68 K/mm3 (150-450); RBC Distribution Width CV 15.1 % (11.6-14.6); RBC Distribution Width SD 45.6 fl (35.1-43.9); Red Blood Count 4.86 M/mm3 (4.2-5.4)
--- NOTE | 2024-05-13 05:55 | RAD_ITS ---
INDICATION: resp failure on vent EXAMINATION/TECHNIQUE: X-RAY - XR Chest 1 View COMPARISON: Prior study dated: 05/12/2024 FINDINGS: LINES/DEVICES: Endotracheal tube terminates 3 [address] the [place]. CT compatible right chest wall port terminates near the cavoatrial junction. Enteric tube extends into the stomach. Cardiac leads overlie the chest. LUNGS: The lungs are well expanded. Small bilateral pleural effusions with hazy basilar opacities. No pneumothorax. MEDIASTINUM AND CARDIOVASCULAR STRUCTURES: Cardiac silhouette is unchanged. Central airways and mediastinal contour are unremarkable. BONES AND SOFT TISSUES: No acute abnormality. RAD/Chest 1 View (Portable) IMPRESSION: Endotracheal tube terminates 3 cm above the [place]. Small pleural effusions with hazy basilar opacities favoring atelectasis. Electronically Signed: Jamil Gupta MD at 5:51 EDT ,
[2024-05-13 05:57] LABS: Bedside Glucose 222 mg/dL (74-106)
[2024-05-13 06:21] LABS: ALB/GLOB Ratio 0.5 RATIO (0.9-2.4); AST(SGOT) 61 U/L (15-37); Alanine Aminotransfer ALT/SGPT 374 U/L (13-56); Albumin, Serum 1.7 g/dL (3.2-5.0); Alkaline Phosphatase 199 U/L (45-117); Anion Gap 9 (5-15); BUN 64 mg/dL (7-18); BUN/Creat Ratio 41.3 RATIO (10-20); Calcium,Total 7.5 mg/dL (8.5-10.1); Chloride 112 mmol/L (98-107); Creatinine, Serum 1.55 mg/dL (0.55-1.02); EST Glomerular Filtration Rate 35 mL/min (>60); Est Glom Filt Rate - Afr Amer 42 mL/min (>60); Globulin 3.4 g/dL (2.2-4.2); Glucose 256 mg/dL (74-106); Potassium 3.6 mmol/L (3.5-5.1); Protein, Total 5.1 g/dL (6.4-8.2); Sodium Level 140 mmol/L (136-145)
[2024-05-13 06:50] LABS: Differential Comment SCANNED; Differential Indicated SCAN CRITERIA MET; White Blood Count 30.5 K/mm3 (4.4-11.0)
--- NOTE | 2024-05-13 07:15 | PN.HOSP_ITS ---
Reason for Visit Reason for Visit: Left flank pain Subjective Subjective Mrs. Chisholm is a 78-year-old white female who presented to the emergency department [facility] on 05/08/2024 with a chief complaint of left leg pain that started the day prior to presentation. Patient reported she had the flu shot and then felt some chills on the day prior to presentation. On the day of presentation, her symptoms got dramatically worse with increasing chills and rigors along with left flank pain and dry heaving. She denied any dysuria, or frequency but did report chronic urinary incontinence and urgency. She also has a history of ovarian cancer and is on a Avastin for this. She denied any history of UTI or pyelonephritis/nephrolithiasis previously. Vital signs on presentation showed temperature of 98, pulse 78, respiratory 19, blood pressure 180/83 and pulse ox was 92% on 2 L nasal cannula. CBC showed a normal white count with a hemoglobin of 15.6 and normal platelets. Chemistry panel showed normal electrolytes, BUN of 42 and a serum creatinine of 1.46 with blood sugar 138. Chest x-ray was unremarkable for any acute findings. CT of the abdomen pelvis showed mild left hydronephrosis with extensive perinephritic stranding likely due to a 2 mm stone in the proximal left ureter with superimposed pyelonephritis, umbilical hernia containing small bowel loops with no evidence of bowel obstruction and surgical anastomosis in the transverse colon. Cultures were obtained on admission and showed E. coli bacteremia urinary tract infection. The organism was fairly sensitive. On the evening after admission a CODE BLUE was initially called however was transition to a rapid response as the patient had a pulse and was breathing. Nursing staff noted the patient was unresponsive and not interacting. CT of the head was performed and was unremarkable. ABG was obtained and ammonia level was found to be normal. Troponin was done and found to be elevated at 400 when previously it was normal. Patient seemed to have some respiratory distress and was unresponsive therefore elective intubation was performed at that time she was also given 30 cc/kg IV fluids with concern for sepsis and antibiotic coverage was broadened to add meropenem. Echocardiogram was ordered. Echo showed an EF of 65% without wall motion abnormality and moderate left atrial enlargement. She was transferred to the ICU after intubation and urology was consulted given nephrolithiasis with concerns for sepsis. Once urology was called, she was taken immediately for cystoscopy and stent placement due to obstructing nephrolithiasis. With her troponin elevation cardiology was consulted. With her normal echo it is felt that her troponin elevation was likely due to demand ischemia from septic shock. She had a known history of paroxysmal atrial fibrillation and reverted into A-fib intermittently during her hospital course. She had previously been on sotalol and Eliquis. We did hold her Eliquis due to her needing procedures while hospitalized and to minimize bleeding risk. She did require pressors during her hospital course but has subsequently been weaned off of these at this time. She did suffer some ROSANA secondary to ATN but has been nonoliguric. Urine output has been improving. Clinically she seemed to be improving however she did develop a temperature overnight up to 102.3. Antibiotics were transitioned by critical care medicine to meropenem, vancomycin and micafungin was added due to sputum culture growing Lenora. Repeat cultures are pending at this time. Patient with ongoing fevers overnight. No other new problems. Patient has been on Precedex for a while so there is concern that her fevers may be drug related. Will trial off Precedex and put her back on propofol. Objective Data Objective Data Vital Signs: Vital Signs Temp Pulse Resp BP Pulse Ox O2 Del Method O2 Flow Rate 101.6 F H 89 32 H 140/78 H 98 Mechanical Ventilator 3 05/13/24 06:00 05/13/24 06:00 05/13/24 06:00 05/13/24 06:00 05/13/24 06:00 05/13/24 06:00 05/08/24 18:52 FiO2 30 05/13/24 06:00 Oxygen Flow Rate (L/min) 3 Oxygen Delivery Method Mechanical Ventilator Weight: 120.7 kg Body Mass Index (BMI) 48.9 Intake & Output: Intake and Output for Last 24 Hours 05/11/24 05/12/24 05/13/24 23:59 23:59 23:59 Intake Total 2208.10 / 2319.99 3718.38 / 3754.28 502.05 / 502.05 Output Total 1125 / 1125 1550 / 1550 600 / 600 Balance 1083.10 / 1194.99 2168.38 / 2204.28 -97.95 / -97.95 Lab / Micro Data 05/13/24 05:30 05/13/24 05:30 Labs: Laboratory Results - last 24 hr 05/12/24 11:40: POC Glucose 210 H 05/12/24 17:48: POC Glucose 229 H 05/12/24 23:15: POC Glucose 203 H 05/13/24 05:30: WBC 30.5 H*, RBC 4.86, Hgb 13.3, Hct 40.3, MCV 82.9, MCH 27.4, MCHC 33.0, RDW Std Deviation 45.6 H, RDW Coeff of Nabor 15.1 H, Plt Count 68 L, M PV 12.4 H, Immature Gran % (Auto) 3.500 H, Neut % (Auto) 85.2 H, Lymph % (Auto) 5.7 L, [place] % (Auto) 5.5, Eos % (Auto) 0.0, Baso % (Auto) 0.1, Absolute Neuts (auto) 26.0 H, Absolute Lymphs (auto) 1.73, Nucleated RBC % 0.4, Differential Comment SCANNED, Diff Path Review November, Sodium 140, Potassium 3.6, Chloride 112 H, Carbon Dioxide 20.0 L, Anion Gap 9, BUN 64 H, Creatinine 1.55 H, Estim Creat Clear Calc 37.80, Est GFR (MDRD) Af Amer 42 L, Est GFR (MDRD) Non-Af 35 L, BUN/Creatinine Ratio 41.3 H, Glucose 256 H, Calcium 7.5 L, Total Bilirubin 0.50, AST 61 H, ALT 374 H, Alkaline Phosphatase 199 H, Total Protein 5.1 L, Albumin 1.7 L, Globulin 3.4, Albumin/Globulin Ratio 0.5 L 05/13/24 05:35: POC Glucose 222 H Micro: Microbiology 05/09/24 02:02 Sputum, Induced/Lukens Gram Stain - Final 05/09/24 02:02 Sputum, Induced/Lukens Respiratory Culture - Final Presumptive C albicans 05/09/24 13:00 Urine Catheter - Bruno Urine Culture - Final Culture exhibits no growth. 05/08/24 22:40 Blood Culture (Wb) - Line Draw Blood Culture - Preliminary No growth in 48 hours. 05/08/24 20:05 Blood Culture (Wb) - Port Blood Culture - Preliminary No growth in 48 hours. 05/08/24 13:50 Urine, Clean Catch Urine Culture - Final Presumptive E. coli 05/08/24 13:25 Blood Culture (Wb) - Anticubital Left Blood Culture - Final Escherichia coli 05/09/24 01:00 Stool Enteric Bacteriology - Final 05/09/24 01:00 Stool Clostridioides difficile (PCR) - Final 05/08/24 13:25 Mucosa - Nose SARS-CoV-2, Influenza & RSV (PCR) - Final ABG Data ABG results: ABG 05/12/24 05/13/24 13:43 05:40 Specimen Type ART ART Sample Site Art Line Art Line pH 7.57 H 7.49 H Bicarbonate Actual 18.5 L 18.8 L Total CO2 19 20 Base Excess -4 L -5 L O2 Saturation 98 97 O2 % 30.0 30.0 ABG pCO2 20.1 L 24.6 L ABG pO2 89 78 Rafa Test N/A N/A Respiration Rate 16 12 O2 Delivery Device ET Tube Adult Vent Vent Mode AC AC Tidal Volume 450.0 350.0 POC PEEP 5 5 Radiography Diagnostic Testing: Radiology Impression Chest X-Ray 05/12/24 13:20 IMPRESSION: Mild pleural effusions with bibasilar atelectasis or pneumonia. Electronically Signed: Inés Crow MD at 14:42 EDT , Chest X-Ray 05/13/24 05:55 IMPRESSION: Endotracheal tube terminates 3 cm above the [place]. Small pleural effusions with hazy basilar opacities favoring atelectasis. Electronically Signed: Jamil Gupta MD at 5:51 EDT , Rhythm Strip Rhythm Strip: A-fib Rate: 85 Physical Exam Const no apparent distress; Negative for alert, oriented x3, average body habitus or healthy appearing Constitutional Narrative: Morbidly obese, older, white female, lying in bed intubated and sedated, appears older than stated age, family at bedside HEENT head/scalp atraumatic and moist oral mucous membranes HEENT Narrative: Edentulous, ET tube and OG in place Head and Scalp: normocephalic Eyes conjunctivae normal Eyes Narrative: Pupils are constricted due to fentanyl use, no scleral icterus Neck no lymphadenopathy and supple Neck Narrative: Neck is short and thick, trachea midline Resp normal respiratory effort, no retractions and no use of accessory muscles Resp Narrative: Crackles at bases bilaterally, intubated and sedated Auscultation: crackles; Negative for rhonchi or wheezes Cardio regular rhythm, S1 normal heart sound, S2 normal heart sound, no murmurs, no rub, no gallops and no clicks Cardio Narrative: Mild sinus tachycardia GI normal to inspection, nondistended, normoactive bowel sounds, soft to palpation and non-tender Extremity Extremity Narrative: 1+ pitting edema bilaterally, pedal pulses are 2+, radial pulses 2+ on the right with art line in the left Neuro Neuro Narrative: Unable to assess as patient is intubated and sedated Psych Psych Narrative: Unable to assess due to intubation and sedation Assessment & Plan Assessment/Plan (1) Elevated LFTs: (2) Bacteremia due to Gram-negative bacteria: (3) Elevated troponin: (4) Septic shock: PLAN: Plan Septic shock secondary to E. coli bacteremia from UTI with pyelonephritis and left-sided hydronephrosis -Patient is off pressors -Left ureteral stent placed by Dr. Aiden jorgensen on 05/09/2024 -Patient with ongoing fevers so repeat cultures are pending -Continue vancomycin, meropenem, and micafungin -Stress dose steroids have been discontinued -May be able to remove art line tomorrow -ID and critical care medicine following-appreciate input Acute hypoxic respiratory failure secondary to the above -Continue ventilator -Ventilator wean per critical care/pulmonary medicine -Lasix as ordered by critical care Fever -Etiology is unclear -white count has gone up dramatically after initially normalizing -Will change from Precedex to rule out drug fever -Repeat cultures are pending as above -Continue broad-spectrum antibiotics with vancomycin, meropenem and micafungin Leukocytosis -See above Thrombocytopenia -Likely related to the above -Had been on heparin drip but discontinued due to platelet counts -Is on Eliquis as an outpatient for atrial fibrillation A-fib with RVR -Currently in sinus rhythm -Historically she had been controlled with sotalol -Off anticoagulation due to thrombocytopenia -LFTs are trending down -Once able to restart Eliquis will likely start at 5 mg daily ROSANA -Baseline serum creatinine appears to run between 0.8 and 1.1 -Peak serum creatinine during hospitalization is 2.66 and is now trending back down -1.55 today -Lasix per pulmonary/critical care medicine and will need to monitor renal function closely -Repeat BMP in a.m. 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
[2024-05-13] MEDS: DULoxetine Hcl 60 MG Capsule PO (09:20)
[2024-05-13] MEDS: Sotalol Hydrochloride 80 MG Tablet 120 MG PO (09:20)
[2024-05-13] MEDS: Senna/Docusate Sodium 1 Tablet 2 TABLET GT ×2 (09:20→20:04)
[2024-05-13] MEDS: Magnesium Chloride 64 MG Delay Rel.Tablet 128 MG PO (09:20)
[2024-05-13] MEDS: Chlorhexidine 15 ML PO ×2 (09:21→20:05)
[2024-05-13] MEDS: Aspirin 81 MG TAB.CHEW GT (09:21)
[2024-05-13 09:32] LABS: Pathologist Review Reviewed
[2024-05-13 09:33] LABS: Pathologist Review Reviewed
[2024-05-13] MEDS: Pantoprazole Sodium 40 MG in 0.9% Normal Saline (100mL MB+) 100 ML 330 MG IV ×2 (09:44→20:04)
[2024-05-13] MEDS: 0.9% Saline Lock 10 ML Syringe IV ×2 (09:45→15:38)
[2024-05-13] MEDS: Micafungin Sodium 100 MG in Dextrose 5%-Water (100mL Bag) 100 ML IV (10:33)
[2024-05-13 11:02] LABS: Pathologist Review Reviewed
[2024-05-13] MEDS: Menthol/Lanolin/Calamine/Znox 113 GM Tube 1 APPLIC TOPICAL ×2 (11:44→20:12)
[2024-05-13] MEDS: Meropenem 1 GM in 0.9% Normal Saline (100mL MB+) 100 ML IV ×2 (11:44→20:04)
[2024-05-13] MEDS: Insulin Glargine-YFGN 100 UNIT/ML Pen 10 UNIT SC (11:44)
[2024-05-13] MEDS: CHLORHEXIDINE GLUC 2% CLOTH 1 EACH TOWELETTE TOPICAL (11:44)
--- NOTE | 2024-05-13 11:51 | CHAPLAIN ---
Type of Pastoral Visit ___ Initial Visit _x__ Follow-up Visit ___ On-call Visit ___ General Patient Visit ___ Spiritual Assessment ___ Family Conference ___ Bereavement ___ Rapid Response ___ Code Blue ___ Other (describe below) Pastoral Care Referral From ___ Patient _x__ Family _x__ Nurse ___ Physician ___ Service Writer ___ [employer] Supervisor ___ Other (describe below) Sacrament/Intervention _x__ Active listening ___ Anointing ___ Evangelical ___ Bereavement ___ Communion ___ Gisselle exploration ___ ___ Life review _x__ Prayer ___ Reconciliation ___ Sacrament of Sick _x__ Supportive presence ___ Wedding ___ Other (describe below) Pastoral Comments patient remains on the vent and there has not been much changed; daughter is in the room and is offered support and presence; daughter is able to express how she is coping and how difficult it is to wait; pt daughter does ask for prayer and states that gisselle is what is helping her at this time; other family members and friends have been asked to not visit so daughter is mostly the one at the bedside waiting for a change; daughter is realistic that improvement may not come
[2024-05-13] MEDS: Propofol 10MG/Ml 1,000 MG/100 ML Bottle 7.2 MG CONT INF (12:23)
[2024-05-13] MEDS: fentaNYL drip 100 ML 5 MCG CONT INF (12:36)
[2024-05-13 12:52] LABS: Bedside Glucose 178 mg/dL (74-106)
--- NOTE | 2024-05-13 13:19 | PN.CC_ITS ---
Objective Data Objective Data Vital Signs: Vital Signs Last response 3 Temperature 38.6 C H 05/13/24 11:00 Temperature Source Core 05/13/24 11:00 Pulse Rate 79 05/13/24 11:00 Pulse Strength Weak (1+) 05/09/24 19:31 Respiratory Rate 28 H 05/13/24 11:00 Respiratory Effort Mechanically Ventilated 05/13/24 08:00 Respiratory Depth Normal 05/13/24 08:00 Respiratory Pattern Tachypnea 05/13/24 08:00 Blood Pressure 153/80 H 05/13/24 11:00 Blood Pressure Mean 104 05/13/24 11:00 Blood Pressure Source Arterial Line 05/13/24 11:00 Blood Pressure Position Semi-Fowlers 05/13/24 11:00 Blood Pressure Location Left Forearm 05/13/24 11:00 Pulse Ox 98 05/13/24 11:00 Oxygen Delivery Method Mechanical Ventilator 05/13/24 11:00 Oxygen Flow Rate (L/min) 3 05/08/24 18:52 Fraction of Inspired Oxygen (FIO2) 30 05/13/24 11:00 CLA-BSI maintained Yes 05/13/24 06:00 I&O: I&O Last 24 Hours 3 05/12/24 05/13/24 05/13/24 23:59 11:59 23:59 Intake Total 2588.95 / 3754.28 831.48 / 831.48 Output Total 1200 / 1550 600 / 600 Balance 1388.95 / 2204.28 231.48 / 231.48 I&O: Total Stay 3 05/08/24 12:41 thru 05/13/24 11:36 Intake Total 28756.50 Output Total 4395 Balance 11157.50 Current Meds Ordered / Administered: Current meds ordered / Administered 3 Generic Name Dose Route Start Last Admin Trade Name Freq PRN Reason Stop Dose Admin Acetaminophen 650 mg 05/08/24 21:48 05/13/24 05:43 Acetaminophen 325 Mg Tablet GT 650 mg Q6H PRN PRN Administration Pain 1-10 Or Fever >100.7 Albuterol/Ipratropium 3 ml 05/08/24 18:57 05/09/24 17:48 Ipratropium/Albuterol Sulfate 3 Ml Ampul.Neb INHALATION 3 ml Q4HWA.RT PRN Administration SHORTNESS OF BREATH Aspirin 81 mg 05/09/24 08:00 05/13/24 09:21 Aspirin 81 Mg Tab.Chew GT 81 mg BREAKFAST EM Administration Buspirone HCl 20 mg 05/08/24 22:00 05/13/24 05:36 Buspirone 5 Mg Tablet GT 20 mg TID EM Administration Calamine/Phenol 1 applic 05/08/24 22:00 05/13/24 11:44 Menthol/Lanolin/Calamine/Znox 113 Gm Tube TOPICAL 1 applic BID EM Administration Protocol Chlorhexidine Gluconate 15 ml 05/08/24 22:00 05/13/24 09:21 Chlorhexidine 15 Ml PO 15 ml BID EM Administration Chlorhexidine Gluconate 1 each 05/09/24 10:00 05/13/24 11:44 Chlorhexidine Gluc 2% Cloth 1 Each Towelette TOPICAL 1 each DAILY EM Administration Doxazosin Mesylate 2 mg 05/08/24 22:00 05/12/24 20:26 Doxazosin 4 Mg Tablet GT 2 mg QHS EM Administration Duloxetine HCl 60 mg 05/09/24 10:00 05/13/24 09:20 Duloxetine Hcl 60 Mg Capsule PO 60 mg DAILY EM Administration Ergocalciferol 1.25 mg 05/10/24 10:00 05/10/24 08:08 Ergocalciferol 1.25 Mg (50, 000 Unit) Capsule PO Not Given Fr@1000 EM Glucagon 1 mg 05/08/24 18:59 Glucagon 1 Mg/Ml Syringe IM X1 PRN Hypoglycemia Protocol Heparin Sodium (Beef Lung) 50 units 05/08/24 17:49 Heparin Pf Lock 10 Units/Ml 50 Units/5 Ml Syringe IV UD PRN Port-a-Cath (VAD)Heparin Flush Heparin Sodium (Porcine) 0 unit 05/08/24 22:00 05/11/24 05:58 Heparin Injection (Vial) 5,000 Unit/Ml Vial IV 1,000 unit UD PRN Administration dose adjustment Protocol Dextrose 250 mls @ 0 mls/hr 05/08/24 18:59 Dextrose 10%-Water IV .Q0M PRN HYPOGLYCEMIA Protocol As Directed Fentanyl 100 mls @ 5 mls/hr 05/08/24 21:05 05/13/24 12:36 CONT INF 50 mcg/hr UD EM 5 mls/hr Administration Protocol 50 MCG/HR Norepinephrine Bitartrate 16 250 mls @ 4.688 mls/hr 05/09/24 11:50 05/12/24 10:07 mg/ Sodium Chloride CONT INF Infused .[id number] EM Titration Protocol 5 MCG/MIN Pantoprazole Sodium 40 mg/ 110 mls @ 330 mls/hr 05/09/24 22:00 05/13/24 10:04 Sodium Chloride IV Infused Q12 EM Infusion Enteral Nutritional Formula 1,000 mls @ 50 mls/hr 05/11/24 13:30 05/13/24 05:04 Vital Af 1.2 [place] Liquid GT Not Given .Q20H EM Meropenem 1 gm/ Sodium 120 mls @ 33 mls/hr 05/12/24 12:30 05/13/24 11:44 Chloride IV 33 mls/hr Q12 EM Administration Vancomycin IV-PHARMACY TO DOSE 500 mls @ 250 mls/hr 05/12/24 12:27 1 each/ Sodium Chloride IV X1 PRN Rx to Dose Protocol Micafungin Sodium 100 mg/ 105 mls @ 100 mls/hr 05/13/24 10:00 05/13/24 11:36 Dextrose IV Infused Q24 EM Infusion Vancomycin HCl 1,500 mg/ 530 mls @ 250 mls/hr 05/13/24 16:00 Sodium Chloride IV Q24H EM Propofol 1,000 mg in 100 mls @ 7.242 mls/hr 05/13/24 12:00 05/13/24 12:23 Diprivan CONT INF 10 mcg/kg/min .Q12H EM 7.2 mls/hr Administration Protocol 10 MCG/KG/MIN Insulin Glargine 10 unit 05/13/24 10:13 05/13/24 11:44 Insulin Glargine-Yfgn 100 Unit/Ml Pen SC 10 unit DAILY EM Administration Insulin Human Lispro 0 unit 05/09/24 18:00 05/13/24 11:45 Insulin Lispro 100 Unit/Ml Insuln.Pen SC 2 u Q6H EM Administration Protocol Lorazepam 0.5 mg 05/08/24 18:57 Lorazepam 0.5 Mg Tablet PO BID PRN Anxiety Magnesium Chloride 128 mg 05/09/24 10:00 05/13/24 09:20 Magnesium Chloride 64 Mg Delay Rel.Tablet PO 128 mg DAILY EM Administration Multivitamins 1 tablet 05/09/24 08:00 05/13/24 09:18 Multivitamins,Therapeutic Tablet GT Not Given DAILYCM EM Nystatin 1 applic 05/08/24 22:00 05/13/24 05:36 Nystatin Powder 15gm Bottle TOPICAL 1 applic TID [facility] Administration Protocol Oxycodone HCl 2.5 - 5 mg 05/08/24 18:38 Oxycodone 5 Mg Tablet PO Q4H PRN PRN Pain Score 4-10 Prochlorperazine Edisylate 5 mg 05/08/24 18:38 Prochlorperazine 10 Mg/2 Ml Vial IV Q4H PRN PRN Breakthrough nausea/vomiting Senna/Docusate Sodium 2 tablet 05/08/24 22:00 05/13/24 09:20 Senna/Docusate Sodium 1 Tablet GT 2 tablet BID EM Administration Sodium Chloride 10 - 40 ml 05/08/24 17:49 05/13/24 09:45 0.9% Saline Lock 10 Ml Syringe IV 10 ml UD PRN Administration Port-a-Cath (VAD) Flush Sodium Chloride 5 ml 05/08/24 22:00 Sodium Cl For Inhalation 15 Ml Vial.Neb. INHALATION Q5M PRN Suctioning Sotalol HCl 120 mg 05/13/24 10:00 05/13/24 09:20 Sotalol Hydrochloride 80 Mg Tablet PO 120 mg QODAY [facility] Administration Protocol Tolterodine Tartrate 2 mg 05/09/24 10:00 05/13/24 09:19 Tolterodine Tartrate 2 Mg Cap.Sa PO Not Given DAILY [facility] Vancomycin Protocol 1 lab 05/14/24 13:30 Vancomycin Trough/Random Due MC 05/14/24 17:30 DAILY [facility] Lab / Micro Data 05/13/24 05:30 05/13/24 05:30 Labs: Laboratory Results - last 24 hr 05/11/24 05:10: Diff Path Review Reviewed 05/12/24 05:25: Diff Path Review Reviewed 05/12/24 17:48: POC Glucose 229 H 05/12/24 23:15: POC Glucose 203 H 05/13/24 05:30: WBC 30.5 H*, RBC 4.86, Hgb 13.3, Hct 40.3, MCV 82.9, MCH 27.4, MCHC 33.0, RDW Std Deviation 45.6 H, RDW Coeff of Nabor 15.1 H, Plt Count 68 L, M PV 12.4 H, Immature Gran % (Auto) 3.500 H, Neut % (Auto) 85.2 H, Lymph % (Auto) 5.7 L, Steele % (Auto) 5.5, Eos % (Auto) 0.0, Baso % (Auto) 0.1, Absolute Neuts (auto) 26.0 H, Absolute Lymphs (auto) 1.73, Nucleated RBC % 0.4, Differential Comment SCANNED, Diff Path Review Reviewed, Sodium 140, Potassium 3.6, Chloride 112 H, Carbon Dioxide 20.0 L, Anion Gap 9, BUN 64 H, Creatinine 1.55 H, Estim Creat Clear Calc 37.80, Est GFR (MDRD) Af Amer 42 L, Est GFR (MDRD) Non-Af 35 L, BUN/Creatinine Ratio 41.3 H, Glucose 256 H, Calcium 7.5 L, Total Bilirubin 0.50, AST 61 H, ALT 374 H, Alkaline Phosphatase 199 H, Total Protein 5.1 L, Albumin 1.7 L, Globulin 3.4, Albumin/Globulin Ratio 0.5 L 05/13/24 05:35: POC Glucose 222 H 05/13/24 11:43: POC Glucose 178 H Micro: Microbiology 05/12/24 13:00 Sputum, Induced/Lukens Gram Stain - Final 05/12/24 13:00 Sputum, Induced/Lukens Respiratory Culture - Preliminary Presumptive C albicans ABG Data ABG results: ABG 05/12/24 05/13/24 13:43 05:40 Specimen Type ART ART Sample Site Art Line Art Line pH 7.57 H 7.49 H Bicarbonate Actual 18.5 L 18.8 L Total CO2 19 20 Base Excess -4 L -5 L O2 Saturation 98 97 O2 % 30.0 30.0 ABG pCO2 20.1 L 24.6 L ABG pO2 89 78 Rafa Test N/A N/A Respiration Rate 16 12 O2 Delivery Device ET Tube Adult Vent Vent Mode AC AC Tidal Volume 450.0 350.0 POC PEEP 5 5 Rhythm Strip Rhythm Strip: A-fib Rate: 85 Imaging Radiology Impression Chest X-Ray 05/12/24 13:20 IMPRESSION: Mild pleural effusions with bibasilar atelectasis or pneumonia. Electronically Signed: Inés Crow MD at 14:42 EDT , Chest X-Ray 05/13/24 05:55 IMPRESSION: Endotracheal tube terminates 3 cm above the [place]. Small pleural effusions with hazy basilar opacities favoring atelectasis. Electronically Signed: Jamil Gupta MD at 5:51 EDT , Assessment and Plan . Assessment and plan: Subjective: Pt seen and examined. Intubated, sedated. Vasopressors off. MV reviewed. Persistent fever despite ABX. Markedly (+) fluid balance. Renal function improved. HR is OK currently. PE: General: Acute on chronically ill appearing morbidly obese female; + MV HEENT: anicteric Sclera; + ETT, nl nose; supple neck, no masses Cardiovascular: irreg irreg; +S1/S2; No rubs, gallops; no displaced PMI Respiratory: diminished; no crackles, wheezes, or rhonchi Abdominal: Non-tender; Non distended; hypoBS x 4; No Hepatosplenomegaly Extremities: Warm, well perfused; No clubbing, cyanosis; capillary refill < 2 sec Neurological: sedated but easily agitated A/P: #Acute hypercapnic respiratory failure: cont MV; cont sedation/analgesia; F/U CXR/ABG #Septic shock: sp fluid boluses; cont pressors to keep MAP > 65; emp IV Abx; F/U Cx --> off pressors, stress dose steroids D/C by hospitalist in the setting of C. albicans in sputum; given new onset fever and on-going critical illness will rebroaden emp IV Abx to vanc/Merrem and cover with micafungin; repeat BCx today & F/U additional ID recommendations #Pyelonephritis: see above; monitor temp curve/WBC/band %; pansensitive E. coli on initial BCx; ID on board #Lt hydronephrosis 2* to obstructing nephrolithiasis: sp cystoscopy with stent placement; urology on board #ROSANA: ?prerenal vs ATN vs other; nonoliguric; loop diuretics as tolerated #Elevated LFTs: ?shock liver from earlier severe hypotension vs other; avoid hepatoxic meds --> surgery consult noted, agree with recommendations #AFib on Eliquis: cardiology following; cont sotalol and F/U limited TTE; sp hep gtt discontinued 05/11 due to low PLTs #NSTEMI: likely type II; cardiology following --> hep gtt D/C #Acute encephalopathy: likely toxic/metabolic; initial head CT unremarkable; cont supportive management #COPD (nonsmoker, 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
--- NOTE | 2024-05-13 13:48 | NURSING ---
Fentanyl gtt running at 50mcg/hr after 0900 05/13 regardless of titration charting
[2024-05-13 13:59] LABS: CPK Total, Creatine Kinase 31 U/L (26-192); Triglycerides 513 mg/dL
[2024-05-13] MEDS: Vital AF 1.2 Cal Liquid 1,000 ML 50 ML GT (15:37)
[2024-05-13] MEDS: Furosemide 100 MG/10 ML Vial 60 MG IV ×2 (15:38→23:36)
[2024-05-13] MEDS: Vancomycin HCl 1,500 MG in 0.9% Normal Saline (500mL Bag) 500 ML 250 MG IV (16:01)
--- NOTE | 2024-05-13 17:08 | PCM.PN.ID ---
Physical Exam Narrative Continued fevers, off pressors, family at bedside Resp Effort and Inspection: mechanically ventilated Cardio regular rate and regular rhythm GI soft to palpation, non-tender and non-distended Skin no rashes or lesions noted ID ID: Route of nutrition/ use of supplements: [] Nutritional Intake: [] IV Site: [] Bruno Catheter: [] Assessment & Plan Assessment/Plan (1) Septic shock: PLAN: due to ecoli bacteremia from pyelo and L sided hydro. L ureteral stent placed by Dr. Wolfe 05/09/24. On vent. Off pressors. LFTs improved. Surgery following. On vanc/[place]. Will follow (2) History of ovarian cancer: (3) Hydronephrosis concurrent with and due to calculi of kidney and ureter: (4) Bacteremia due to Gram-negative bacteria:
[2024-05-13] MEDS: Doxazosin 4 MG Tablet 2 MG GT (20:03)
[2024-05-13 23:39] LABS: Bedside Glucose 165 mg/dL (74-106)
[2024-05-13 23:43] LABS: Bedside Glucose 172 mg/dL (74-106)
[2024-05-14] VITALS (33 sets, daily range): BP systolic 115–163; BP diastolic 68–112; PULSE 113–146; RESP 12–24; TEMP 36.9–37.3; O2SAT 94–99; BMI 47.2
[2024-05-14] MEDS: Propofol 10MG/Ml 1,000 MG/100 ML Bottle 7.2 MG CONT INF (00:23)
[2024-05-14] MEDS: Digoxin 250 MCG/ML Ampul IV (01:28)
[2024-05-14 04:19] LABS: Absolute Lymphocyte Count 1.77 X10^3/uL (0.83-4.51); Absolute Neutrophil Count 24.1 X10^3/uL (2.0-7.7); Basophil# 0.05 X10^3/uL; Basophil% 0.2 % (0-1); Eosinophils% 0.3 % (0-5); Hematocrit 41.6 % (37-47); Hemoglobin 13.9 g/dL (12.0-15.0); Lymphocyte # 1.77 X10^3/ul (0.83-4.51); Lymphocyte % 6.2 % (19-41); Mean Corp Hgb Conc 33.4 g/dL (32-36); Mean Corpuscular Hgb 27.9 pg (27.0-32.0); Mean Corpuscular Volume 83.5 fL (81-99); Monocyte% 5.2 % (0-10); NRBC Flagged by Analyzer 0.2 % (0-5); Neutrophil # 24.07 X10^3/uL (2.7-7.7); Neutrophil % 84.1 % (47-70); POSITIVE COUNT YES; POSITIVE DIFFERENTIAL YES; POSITIVE MORPHOLOGY YES; Platelet Count 73 K/mm3 (150-450); RBC Distribution Width CV 15.2 % (11.6-14.6); Red Blood Count 4.98 M/mm3 (4.2-5.4); White Blood Count 28.6 K/mm3 (4.4-11.0)
[2024-05-14 04:40] LABS: ALB/GLOB Ratio 0.6 RATIO (0.9-2.4); AST(SGOT) 37 U/L (15-37); Alanine Aminotransfer ALT/SGPT 246 U/L (13-56); Alkaline Phosphatase 192 U/L (45-117); Anion Gap 8 (5-15); BUN 59 mg/dL (7-18); Calcium,Total 8.6 mg/dL (8.5-10.1); Chloride 109 mmol/L (98-107); Creatinine, Serum 1.31 mg/dL (0.55-1.02); EST Glomerular Filtration Rate 42 mL/min (>60); Est Glom Filt Rate - Afr Amer 51 mL/min (>60); Estimated Creatinine Clearance 45.18 ml/min; Globulin 3.3 g/dL (2.2-4.2); Glucose 199 mg/dL (74-106); Potassium 3.3 mmol/L (3.5-5.1); Protein, Total 5.3 g/dL (6.4-8.2); Sodium Level 141 mmol/L (136-145)
[2024-05-14] MEDS: Nystatin Powder 15gm Bottle 1 APPLIC TOPICAL ×3 (04:54→21:30)
[2024-05-14] MEDS: Insulin Lispro 100 UNIT/ML INSULN.PEN SC ×2 (04:54→12:37)
[2024-05-14] MEDS: Furosemide 100 MG/10 ML Vial 60 MG IV (04:54)
[2024-05-14 05:21] LABS: Bedside Glucose 177 mg/dL (74-106)
[2024-05-14 05:23] LABS: Differential Comment SCANNED; Differential Indicated SCAN CRITERIA MET; Platelet Estimate SLT DEC (ADEQ)
[2024-05-14 05:24] LABS: Reactive Lymphocyte 2+
--- NOTE | 2024-05-14 05:55 | RAD_ITS ---
INDICATION: resp failure on vent EXAMINATION/TECHNIQUE: X-RAY - XR Chest 1 View COMPARISON: May 13, 2024. FINDINGS: LINES/DEVICES: Endotracheal tube 4.7 cm above the [place]. Enteric tube subdiaphragmatic in the stomach. Unchanged accessed right chest port. LUNGS: Hazy opacification left lung base, decreased from prior exam. No new consolidation. No pneumothorax. MEDIASTINUM AND CARDIOVASCULAR STRUCTURES: Unchanged cardiac mediastinal silhouette. BONES AND SOFT TISSUES: Unremarkable. RAD/Chest 1 View (Portable) IMPRESSION: Mild improved aeration in the left lung base with residual patchy opacification and likely small layering effusion. Electronically Signed: Brandin Marshall MD at 6:35 EDT ,
[2024-05-14 06:06] LABS: Base Excess 1 mmol/L (-2 to +2); Blood Gas Specimen Type ART; Mode AC; O2 Delivery Device Adult Vent; PEEP 5; PO2 84 mmHG (75-100); RR 12; SITE Art Line; SO2 97 % (95-99); Total Carbon Dioxide 25 mmol/L; pCO2 31.5 mmHg (35-45); pH 7.49 (7.35-7.45)
[2024-05-14] MEDS: dilTIAZem 60 MG Tablet PO (08:10)
[2024-05-14] MEDS: Potassium Chloride Oral Soln 20 MEQ/15 ML UDC 40 MEQ PO (08:10)
[2024-05-14] MEDS: Tolterodine Tartrate 2 MG CAP.SA PO (08:11)
[2024-05-14] MEDS: Magnesium Chloride 64 MG Delay Rel.Tablet 128 MG PO (08:12)
[2024-05-14] MEDS: Multivitamins,Therapeutic Tablet 1 TABLET GT (08:12)
[2024-05-14] MEDS: Aspirin 81 MG TAB.CHEW GT (08:12)
[2024-05-14] MEDS: DULoxetine Hcl 60 MG Capsule PO (08:12)
[2024-05-14] MEDS: Menthol/Lanolin/Calamine/Znox 113 GM Tube 1 APPLIC TOPICAL ×2 (08:12→21:29)
[2024-05-14] MEDS: Chlorhexidine 15 ML PO (08:13)
[2024-05-14] MEDS: Insulin Glargine-YFGN 100 UNIT/ML Pen 20 UNIT SC (08:29)
[2024-05-14] MEDS: CHLORHEXIDINE GLUC 2% CLOTH 1 EACH TOWELETTE TOPICAL (08:29)
[2024-05-14] MEDS: Pantoprazole Sodium 40 MG in 0.9% Normal Saline (100mL MB+) 100 ML 330 MG IV ×2 (08:30→21:30)
[2024-05-14] MEDS: Meropenem 1 GM in 0.9% Normal Saline (100mL MB+) 100 ML IV ×2 (09:30→21:30)
--- NOTE | 2024-05-14 10:28 | PN.ID_ITS ---
Physical Exam Narrative On vent, fever resolved Const no apparent distress Resp normal air movement and clear to auscultation bilaterally Cardio Rate: tachycardic GI soft to palpation, non-tender and non-distended Skin no rashes or lesions noted ID ID: Route of nutrition/ use of supplements: [] Nutritional Intake: [] IV Site: [] Bruno Catheter: [] Assessment & Plan Assessment/Plan (1) Septic shock: PLAN: due to ecoli bacteremia from pyelo and L sided hydro. L ureteral stent placed by Dr. Wolfe 05/09/24. On vent. Off pressors. LFTs improved. Fever r esolved. Will stop vanc, cont kenroy. Will follow (2) History of ovarian cancer: (3) Hydronephrosis concurrent with and due to calculi of kidney and ureter: (4) Bacteremia due to Gram-negative bacteria:
--- NOTE | 2024-05-14 11:12 | PN.CC_ITS ---
Objective Data Objective Data Vital Signs: Vital Signs Last response 3 Temperature 37.2 C 05/14/24 05:00 Temperature Source Core 05/14/24 05:00 Pulse Rate 130 H 05/14/24 10:08 Pulse Strength Normal (2+) 05/14/24 08:01 Respiratory Rate 20 H 05/14/24 10:08 Respiratory Effort Mechanically Ventilated 05/14/24 07:52 Respiratory Depth Normal 05/14/24 07:52 Respiratory Pattern Normal 05/14/24 09:34 Blood Pressure 144/81 H 05/14/24 10:08 Blood Pressure Mean 102 05/14/24 10:08 Blood Pressure Source Arterial Line 05/14/24 10:08 Blood Pressure Position Semi-Fowlers 05/14/24 07:00 Blood Pressure Location Left Arm 05/14/24 07:00 Pulse Ox 98 05/14/24 10:08 Oxygen Delivery Method Mechanical Ventilator 05/14/24 10:08 Oxygen Flow Rate (L/min) 3 05/08/24 18:52 Fraction of Inspired Oxygen (FIO2) 50 05/14/24 10:08 CLA-BSI maintained Yes 05/14/24 05:44 I&O: I&O Last 24 Hours 3 05/13/24 05/13/24 05/14/24 11:59 23:59 11:59 Intake Total 1935.93 / 3303.10 1354.97 / 3303.10 255.52 / 255.52 Output Total 600 / 3770 3170 / 3770 1850 / 1850 Balance 1335.93 / -466.90 -1815.03 / -466.90 -1594.48 / -1594.48 I&O: Total Stay 3 05/08/24 12:41 thru 05/14/24 11:03 Intake Total 26187.44 Output Total 9415 Balance 06891.44 Current Meds Ordered / Administered: Current meds ordered / Administered 3 Generic Name Dose Route Start Last Admin Trade Name Freq PRN Reason Stop Dose Admin Acetaminophen 650 mg 05/08/24 21:48 05/13/24 05:43 Acetaminophen 325 Mg Tablet GT 650 mg Q6H PRN PRN Administration Pain 1-10 Or Fever >100.7 Albuterol/Ipratropium 3 ml 05/08/24 18:57 05/09/24 17:48 Ipratropium/Albuterol Sulfate 3 Ml Ampul.Neb INHALATION 3 ml Q4HWA.RT PRN Administration SHORTNESS OF BREATH Aspirin 81 mg 05/09/24 08:00 05/14/24 08:12 Aspirin 81 Mg Tab.Chew GT 81 mg BREAKFAST EM Administration Buspirone HCl 20 mg 05/08/24 22:00 05/13/24 14:59 Buspirone 5 Mg Tablet GT Not Given TID EM Calamine/Phenol 1 applic 05/08/24 22:00 05/14/24 08:12 Menthol/Lanolin/Calamine/Znox 113 Gm Tube TOPICAL 1 applic BID EM Administration Protocol Chlorhexidine Gluconate 15 ml 05/08/24 22:00 05/14/24 08:13 Chlorhexidine 15 Ml PO 15 ml BID EM Administration Chlorhexidine Gluconate 1 each 05/09/24 10:00 05/14/24 08:29 Chlorhexidine Gluc 2% Cloth 1 Each [place] TOPICAL 1 each DAILY EM Administration Diltiazem HCl 60 mg 05/14/24 12:00 05/14/24 08:10 Diltiazem 60 Mg Tablet PO 60 mg Q6 EM Administration Protocol Doxazosin Mesylate 2 mg 05/08/24 22:00 05/13/24 20:03 Doxazosin 4 Mg Tablet GT 2 mg QHS EM Administration Duloxetine HCl 60 mg 05/09/24 10:00 05/14/24 08:12 Duloxetine Hcl 60 Mg Capsule PO 60 mg DAILY EM Administration Ergocalciferol 1.25 mg 05/10/24 10:00 05/10/24 08:08 Ergocalciferol 1.25 Mg (50, 000 Unit) Capsule PO Not Given Fr@1000 EM Glucagon 1 mg 05/08/24 18:59 Glucagon 1 Mg/Ml Syringe IM X1 PRN Hypoglycemia Protocol Heparin Sodium (Beef Lung) 50 units 05/08/24 17:49 Heparin Pf Lock 10 Units/Ml 50 Units/5 Ml Syringe IV UD PRN Port-a-Cath (VAD)Heparin Flush Heparin Sodium (Porcine) 0 unit 05/08/24 22:00 05/11/24 05:58 Heparin Injection (Vial) 5,000 Unit/Ml Vial IV 1,000 unit UD PRN Administration dose adjustment Protocol Dextrose 250 mls @ 0 mls/hr 05/08/24 18:59 Dextrose 10%-Water IV .Q0M PRN HYPOGLYCEMIA Protocol As Directed Fentanyl 100 mls @ 5 mls/hr 05/08/24 21:05 05/14/24 11:00 CONT INF Infused UD EM Titration Protocol 50 MCG/HR Pantoprazole Sodium 40 mg/ 110 mls @ 330 mls/hr 05/09/24 22:00 05/14/24 11:03 Sodium Chloride IV Infused Q12 EM Infusion Enteral Nutritional Formula 1,000 mls @ 50 mls/hr 05/11/24 13:30 05/13/24 15:37 Vital Af 1.2 [place] Liquid GT 50 mls/hr .Q20H EM Administration Meropenem 1 gm/ Sodium 120 mls @ 33 mls/hr 05/12/24 12:30 05/14/24 09:30 Chloride IV 33 mls/hr Q12 EM Administration Micafungin Sodium 100 mg/ 105 mls @ 100 mls/hr 05/13/24 10:00 05/13/24 11:36 Dextrose IV Infused Q24 EM Infusion Propofol 1,000 mg in 100 mls @ 7.242 mls/hr 05/13/24 12:00 05/14/24 11:00 Diprivan CONT INF 15 mcg/kg/min .Q12H EM 10.9 mls/hr Titration Protocol 10 MCG/KG/MIN Insulin Glargine 20 unit 05/14/24 10:00 05/14/24 08:29 Insulin Glargine-Yfgn 100 Unit/Ml Pen SC 20 unit DAILY EM Administration Insulin Human Lispro 0 unit 05/09/24 18:00 05/14/24 04:54 Insulin Lispro 100 Unit/Ml Insuln.Pen SC 2 u Q6H EM Administration Protocol Lorazepam 0.5 mg 05/08/24 18:57 Lorazepam 0.5 Mg Tablet PO BID PRN Anxiety Magnesium Chloride 128 mg 05/09/24 10:00 05/14/24 08:12 Magnesium Chloride 64 Mg Delay Rel.Tablet PO 128 mg DAILY EM Administration Multivitamins 1 tablet 05/09/24 08:00 05/14/24 08:12 Multivitamins,Therapeutic Tablet GT 1 tablet DAILYCM EM Administration Nystatin 1 applic 05/08/24 22:00 05/14/24 04:54 Nystatin Powder 15gm Bottle TOPICAL 1 applic TID EM Administration Protocol Oxycodone HCl 2.5 - 5 mg 05/08/24 18:38 Oxycodone 5 Mg Tablet PO Q4H PRN PRN Pain Score 4-10 Prochlorperazine Edisylate 5 mg 05/08/24 18:38 Prochlorperazine 10 Mg/2 Ml Vial IV Q4H PRN PRN Breakthrough nausea/vomiting Senna/Docusate Sodium 2 tablet 05/08/24 22:00 05/14/24 08:26 Senna/Docusate Sodium 1 Tablet GT Not Given BID EM Sodium Chloride 10 - 40 ml 05/08/24 17:49 05/13/24 15:38 0.9% Saline Lock 10 Ml Syringe IV 10 ml UD PRN Administration Port-a-Cath (VAD) Flush Sodium Chloride 5 ml 05/08/24 22:00 Sodium Cl For Inhalation 15 Ml Vial.Neb. INHALATION Q5M PRN Suctioning Sotalol HCl 120 mg 05/13/24 10:00 05/13/24 09:20 Sotalol Hydrochloride 80 Mg Tablet PO 120 mg QODAY EM Administration Protocol Tolterodine Tartrate 2 mg 05/09/24 10:00 05/14/24 08:11 Tolterodine Tartrate 2 Mg Cap.Sa PO 2 mg DAILY EM Administration Lab / Micro Data 05/14/24 04:10 05/14/24 04:10 Labs: Laboratory Results - last 24 hr 05/13/24 05:30: Total Creatine Kinase 31, Triglycerides 513 H 05/13/24 11:43: POC Glucose 178 H 05/13/24 18:43: POC Glucose 165 H 05/13/24 23:26: POC Glucose 172 H 05/14/24 04:10: WBC 28.6 H, RBC 4.98, Hgb 13.9, Hct 41.6, MCV 83.5, MCH 27.9, MCHC 33.4, RDW Std Deviation 46.0 H, RDW Coeff of Nabor 15.2 H, Plt Count 73 L, MPV TNP, Immature Gran % (Auto) 4.000 H, Neut % (Auto) 84.1 H, Lymph % (Auto) 6.2 L, [place] % (Auto) 5.2, Eos % (Auto) 0.3, Baso % (Auto) 0.2, Absolute Neuts (auto) 24.1 H, Absolute Lymphs (auto) 1.77, Nucleated RBC % 0.2, Differential Comment SCANNED, Diff Path Review May foll, Reactive Lymphocytes 2+, Platelet Estimate SLT DEC, Sodium 141, Potassium 3.3 L, Chloride 109 H, Carbon Dioxide 24.0, Anion Gap 8, BUN 59 H, Creatinine 1.31 H, Estim Creat Clear Calc 45.18, E st GFR (MDRD) Af Amer 51 L, Est GFR (MDRD) Non-Af 42 L, BUN/Creatinine Ratio 45.0 H, Glucose 199 H, Calcium 8.6, Total Bilirubin 0.60, AST 37, ALT 246 H, A lkaline Phosphatase 192 H, Total Protein 5.3 L, Albumin 2.0 L, Globulin 3.3, A lbumin/Globulin Ratio 0.6 L 05/14/24 04:53: POC Glucose 177 H Micro: Microbiology 05/12/24 13:00 Blood Culture (Wb) - Left Wrist Blood Culture - Preliminary No growth in 48 hours. 05/12/24 12:50 Blood Culture (Wb) - Port Blood Culture - Preliminary No growth in 48 hours. 05/12/24 13:00 Sputum, Induced/Lukens Gram Stain - Final 05/12/24 13:00 Sputum, Induced/Lukens Respiratory Culture - Final Presumptive C albicans 05/08/24 20:05 Blood Culture (Wb) - Port Blood Culture - Final No growth in 5 days. 05/08/24 22:40 Blood Culture (Wb) - Line Draw Blood Culture - Final No growth in 5 days. ABG Data ABG results: ABG 05/14/24 05:39 Specimen Type ART Sample Site Art Line pH 7.49 H Bicarbonate Actual 24.0 Total CO2 25 Base Excess 1 O2 Saturation 97 O2 % 30.0 ABG pCO2 31.5 L ABG pO2 84 Respiration Rate 12 O2 Delivery Device Adult Vent Vent Mode AC Tidal Volume 350.0 POC PEEP 5 Rhythm Strip Rhythm Strip: A-fib Rate: 85 Imaging Radiology Impression Chest X-Ray 05/14/24 05:55 IMPRESSION: Mild improved aeration in the left lung base with residual patchy opacification and likely small layering effusion. Electronically Signed: Brandin Marshall MD at 6:35 EDT , Assessment and Plan . Assessment and plan: Subjective: Pt seen and examined. Intubated, sedated. Vasopressors off. MV reviewed. Fever trend down. HR remains elevated. Brisk UOP w/ furosemide. Plan for SAT/SBT today. PE: General: Acute on chronically ill appearing morbidly obese female; + MV HEENT: anicteric Sclera; + ETT, nl nose; supple neck, no masses Cardiovascular: irreg irreg; +S1/S2; No rubs, gallops; no displaced PMI Respiratory: diminished; no crackles, wheezes, or rhonchi Abdominal: Non-tender; Non distended; hypoBS x 4; No Hepatosplenomegaly Extremities: Warm, well perfused; No clubbing, cyanosis; capillary refill < 2 sec Neurological: sedated but easily agitated A/P: #Acute hypercapnic respiratory failure: cont MV; cont sedation/analgesia; F/U CXR/ABG #Septic shock: sp fluid boluses; cont pressors to keep MAP > 65; emp IV Abx; F/U Cx --> off pressors, stress dose steroids D/C by hospitalist in the setting of C. albicans in sputum; given new onset fever and on-going critical illness will rebroaden emp IV Abx to vanc/Merrem and cover with micafungin; repeat BCx today & F/U additional ID recommendations #Pyelonephritis: see above; monitor temp curve/WBC/band %; pansensitive E. coli on initial BCx; ID on board #Lt hydronephrosis 2* to obstructing nephrolithiasis: sp cystoscopy with stent placement; urology on board #ROSANA: ?prerenal vs ATN vs other; nonoliguric; loop diuretics as tolerated #Elevated LFTs: ?shock liver from earlier severe hypotension vs other; avoid hepatoxic meds --> surgery consult noted, agree with recommendations #AFib on Eliquis: cardiology following; cont sotalol and F/U limited TTE; sp hep gtt discontinued 05/11 due to low PLTs #NSTEMI: likely type II; cardiology following --> hep gtt D/C #Acute encephalopathy: likely toxic/metabolic; initial head CT unremarkable; cont supportive management #COPD (nonsmoker, felt to be 2* to industrial exposure while working at [employer]): cont nebs #DM: cont glycemic monitoring; goal BG ~140-200 mg/dL #Ovarian cancer on Avastin #Morbid obesity TFs SCDs, PPI Critical Care Time: 50 min The entirety of this encounter was done via Telemedicine
[2024-05-14] MEDS: Micafungin Sodium 100 MG in Dextrose 5%-Water (100mL Bag) 100 ML IV (12:36)
[2024-05-14 12:59] LABS: Bedside Glucose 181 mg/dL (74-106)
[2024-05-14 13:12] LABS: Pathologist Review Reviewed
[2024-05-14] MEDS: Diltiazem 125 MG in Dextrose 5%-Water (100mL Bag) 100 ML IV (14:02)
--- NOTE | 2024-05-14 15:09 | CM.UR ---
Social Work A list of?SNF providers including quality and resource use data and consistent with the patient's preferred geographic region, medical needs, and insurance network was created in [employer] and printed, SW will give to family when appropriate if SNF placement needed.? TRU Rivera
[2024-05-14 17:03] LABS: Bedside Glucose 146 mg/dL (74-106)
--- NOTE | 2024-05-14 18:12 | PN.HOSP_ITS ---
Reason for Visit Reason for Visit: Left flank pain Subjective Subjective Fevers seem to be improving. White count is coming down. Overall clinically seems to be more stable. Tolerated diuresis well yesterday with improving renal function. Mentation seems to be better today per family at bedside. Objective Data Objective Data Vital Signs: Vital Signs Temp Pulse Resp BP Pulse Ox O2 Del Method O2 Flow Rate 99.2 F H 142 H 20 H 152/97 H 98 Nasal Cannula 4 05/14/24 14:02 05/14/24 14:30 05/14/24 14:02 05/14/24 14:30 05/14/24 14:02 05/14/24 14:02 05/14/24 14:02 FiO2 30 05/14/24 11:36 Oxygen Flow Rate (L/min) 4 Oxygen Delivery Method Nasal Cannula Weight: 117.299 kg Body Mass Index (BMI) 47.2 Intake & Output: Intake and Output for Last 24 Hours 05/12/24 05/13/24 05/14/24 23:59 23:59 23:59 Intake Total 3718.38 / 3754.28 3290.90 / 3303.10 1496.54 / 1496.54 Output Total 1550 / 1550 3770 / 3770 1850 / 1850 Balance 2168.38 / 2204.28 -479.10 / -466.90 -353.46 / -353.46 Lab / Micro Data 05/14/24 04:10 05/14/24 04:10 Labs: Laboratory Results - last 24 hr 05/13/24 18:43: POC Glucose 165 H 05/13/24 23:26: POC Glucose 172 H 05/14/24 04:10: WBC 28.6 H, RBC 4.98, Hgb 13.9, Hct 41.6, MCV 83.5, MCH 27.9, MCHC 33.4, RDW Std Deviation 46.0 H, RDW Coeff of Nabor 15.2 H, Plt Count 73 L, MPV TNP, Immature Gran % (Auto) 4.000 H, Neut % (Auto) 84.1 H, Lymph % (Auto) 6.2 L, [place] % (Auto) 5.2, Eos % (Auto) 0.3, Baso % (Auto) 0.2, Absolute Neuts (auto) 24.1 H, Absolute Lymphs (auto) 1.77, Nucleated RBC % 0.2, Differential Comment SCANNED, Diff Path Review Reviewed, Reactive Lymphocytes 2+, Platelet Estimate SLT DEC, Sodium 141, Potassium 3.3 L, Chloride 109 H, Carbon Dioxide 24.0, Anion Gap 8, BUN 59 H, Creatinine 1.31 H, Estim Creat Clear Calc 45.18, E st GFR (MDRD) Af Amer 51 L, Est GFR (MDRD) Non-Af 42 L, BUN/Creatinine Ratio 45.0 H, Glucose 199 H, Calcium 8.6, Total Bilirubin 0.60, AST 37, ALT 246 H, A lkaline Phosphatase 192 H, Total Protein 5.3 L, Albumin 2.0 L, Globulin 3.3, A lbumin/Globulin Ratio 0.6 L 05/14/24 04:53: POC Glucose 177 H 05/14/24 12:34: POC Glucose 181 H 05/14/24 16:45: POC Glucose 146 H Micro: Microbiology 05/12/24 13:00 Blood Culture (Wb) - Left Wrist Blood Culture - Preliminary No growth in 48 hours. 05/12/24 12:50 Blood Culture (Wb) - Port Blood Culture - Preliminary No growth in 48 hours. 05/12/24 13:00 Sputum, Induced/Lukens Gram Stain - Final 05/12/24 13:00 Sputum, Induced/Lukens Respiratory Culture - Final Presumptive C albicans 05/08/24 20:05 Blood Culture (Wb) - Port Blood Culture - Final No growth in 5 days. 05/08/24 22:40 Blood Culture (Wb) - Line Draw Blood Culture - Final No growth in 5 days. 05/09/24 02:02 Sputum, Induced/Lukens Gram Stain - Final 05/09/24 02:02 Sputum, Induced/Lukens Respiratory Culture - Final Presumptive C albicans 05/09/24 13:00 Urine Catheter - Bruno Urine Culture - Final Culture exhibits no growth. 05/08/24 13:50 Urine, Clean Catch Urine Culture - Final Presumptive E. coli 05/08/24 13:25 Blood Culture (Wb) - Anticubital Left Blood Culture - Final Escherichia coli 05/09/24 01:00 Stool Enteric Bacteriology - Final 05/09/24 01:00 Stool Clostridioides difficile (PCR) - Final 10/16/24 13:25 Mucosa - Nose SARS-CoV-2, Influenza & RSV (PCR) - Final ABG Data ABG results: ABG 05/14/24 05:39 Specimen Type ART Sample Site Art Line pH 7.49 H Bicarbonate Actual 24.0 Total CO2 25 Base Excess 1 O2 Saturation 97 O2 % 30.0 ABG pCO2 31.5 L ABG pO2 84 Respiration Rate 12 O2 Delivery Device Adult Vent Vent Mode AC Tidal Volume 350.0 POC PEEP 5 Radiography Diagnostic Testing: Radiology Impression Chest X-Ray 05/14/24 05:55 IMPRESSION: Mild improved aeration in the left lung base with residual patchy opacification and likely small layering effusion. Electronically Signed: Brandin Marshall MD at 6:35 EDT , Rhythm Strip Rhythm Strip: A-fib Rate: 85 Physical Exam Const no apparent distress and well nourished; Negative for alert, oriented x3, average body habitus or healthy appearing Constitutional Narrative: Morbidly obese, older, white female, lying in bed intubated and sedated, appears older than stated age, family at bedside Orientation / Consciousness: lethargic HEENT normocephalic, head/scalp atraumatic and moist oral mucous membranes HEENT Narrative: ET tube and OG in place Resp normal respiratory effort, no retractions, no use of accessory muscles and clear to auscultation bilaterally Auscultation: Negative for crackles, rhonchi or wheezes Cardio S1 normal heart sound, S2 normal heart sound, no murmurs, no rub, no gallops and no clicks Cardio Narrative: Tachycardia with irregularly irregular rhythm GI normal to inspection, nondistended, normoactive bowel sounds, soft to palpation and non-tender Extremity no clubbing, cyanosis or edema Extremity Narrative: 1+ pitting edema bilaterally, pedal pulses are 2+, radial art line removed and radial pulses are 2+ bilaterally Neuro Neuro Narrative: Unable to assess as patient is intubated and sedated Psych Psych Narrative: Unable to assess due to intubation and sedation Assessment & Plan Assessment/Plan (1) Elevated LFTs: (2) Bacteremia due to Gram-negative bacteria: (3) Elevated troponin: (4) Septic shock: PLAN: Plan Septic shock secondary to E. coli bacteremia from UTI with pyelonephritis and left-sided hydronephrosis -Remains hemodynamically stable without pressors -Left ureteral stent placed by Dr. Aiden jorgensen on 05/09/2024 -Patient with ongoing fevers so repeat cultures are pending -ID recommended discontinuing vancomycin and continue meropenem -Will discuss micafungin further tomorrow with ID -ID and critical care medicine following-appreciate input Acute hypoxic respiratory failure secondary to the above -Continue ventilator -Ventilator wean per critical care/pulmonary medicine -Lasix as ordered by critical care Fever -Fevers are improved with transition from Precedex to propofol -White count is also improving -Continue broad-spectrum antibiotics as ordered -Blood cultures are negative Urine culture is negative -Sputum culture shows presumptive Lenora albicans Leukocytosis -Trending down Thrombocytopenia -Seems to be recovering A-fib with RVR -Currently in sinus rhythm -Off anticoagulation due to thrombocytopenia -Continue sotalol -Add scheduled Cardizem -Once able to restart Eliquis will likely start at 5 mg daily ROSANA -Baseline serum creatinine appears to run between 0.8 and 1.1 -Peak serum creatinine during hospitalization is 2.66 and is now trending back down -1. 3 1 today -Lasix per pulmonary/critical care medicine and will need to monitor renal function closely -Repeat BMP in a.m. Elevated LFTs -Continuing to improve -Likely shock liver Hypokalemia -Replace and recheck Elevated troponin -Likely from demand ischemia -Not clear that this is a true NSTEMI as it is not clear if she had any symptoms -Continue current management -Will need outpatient cardiology follow-up after discharge Toxic/metabolic encephalopathy -Likely related the above -CT of the brain unremarkable -Continue management History of COPD -Patient lifelong non-smoker and felt to be secondary to industrial exposure while working at a [employer] If and continue nebulizers DM-2 -Blood sugar is not at goal -Continue SSI -Lantus on hold due to possible extubation Ovarian cancer -Avastin is on hold due to the above Morbid obesity -BMI 47.3 -Complicates treatment, prognosis, outcomes -Recommend weight loss DVT/GI prophylaxis -Patient with significant thrombocytopenia -Mechanical DVT prophylaxis with SCDs -Continue IV Protonix 40 daily CODE STATUS -Full code -Overall prognosis is poor Charges/Coding Visit Charges Inpatient E&M: 17843 Subs Hosp L2
[2024-05-14] MEDS: Diltiazem 125 MG in Dextrose 5%-Water (100mL Bag) 100 ML 15 MG IV (21:37)
[2024-05-15] VITALS (27 sets, daily range): BP systolic 127–165; BP diastolic 63–115; PULSE 106–142; RESP 16–25; TEMP 37.1–37.3; O2SAT 93–99; BMI 45.6
[2024-05-15 01:18] LABS: Bedside Glucose 125 mg/dL (74-106)
[2024-05-15 04:28] LABS: Absolute Lymphocyte Count 1.88 X10^3/uL (0.83-4.51); Absolute Neutrophil Count 27.9 X10^3/uL (2.0-7.7); Basophil# 0.21 X10^3/uL; Basophil% 0.6 % (0-1); Eosinophils% 0.3 % (0-5); Hemoglobin 13.8 g/dL (12.0-15.0); Lymphocyte # 1.88 X10^3/ul (0.83-4.51); Lymphocyte % 5.7 % (19-41); Mean Corp Hgb Conc 32.1 g/dL (32-36); Mean Corpuscular Hgb 27.7 pg (27.0-32.0); Mean Corpuscular Volume 86.2 fL (81-99); Monocyte# 1.55 X10^3/uL; Monocyte% 4.7 % (0-10); NRBC Flagged by Analyzer 0.2 % (0-5); Neutrophil # 27.87 X10^3/uL (2.7-7.7); Neutrophil % 85.4 % (47-70); POSITIVE COUNT YES; POSITIVE DIFFERENTIAL YES; Platelet Count 95 K/mm3 (150-450); RBC Distribution Width CV 15.9 % (11.6-14.6); RBC Distribution Width SD 46.7 fl (35.1-43.9); Red Blood Count 4.99 M/mm3 (4.2-5.4)
[2024-05-15 04:33] LABS: White Blood Count 32.7 K/mm3 (4.4-11.0)
[2024-05-15 04:34] LABS: Differential Indicated SCAN CRITERIA MET
[2024-05-15 04:43] LABS: ALB/GLOB Ratio 0.6 RATIO (0.9-2.4); AST(SGOT) 28 U/L (15-37); Alanine Aminotransfer ALT/SGPT 160 U/L (13-56); Alkaline Phosphatase 187 U/L (45-117); Anion Gap 6 (5-15); BUN 48 mg/dL (7-18); BUN/Creat Ratio 42.9 RATIO (10-20); Calcium,Total 8.7 mg/dL (8.5-10.1); Chloride 110 mmol/L (98-107); Creatinine, Serum 1.12 mg/dL (0.55-1.02); EST Glomerular Filtration Rate 50 mL/min (>60); Est Glom Filt Rate - Afr Amer 61 mL/min (>60); Estimated Creatinine Clearance 51.93 ml/min; Globulin 3.3 g/dL (2.2-4.2); Glucose 134 mg/dL (74-106); Potassium 3.7 mmol/L (3.5-5.1); Protein, Total 5.3 g/dL (6.4-8.2); Sodium Level 145 mmol/L (136-145)
[2024-05-15] MEDS: Nystatin Powder 15gm Bottle 1 APPLIC TOPICAL ×3 (05:26→20:11)
[2024-05-15] MEDS: 0.9% Saline Lock 10 ML Syringe IV ×2 (05:26→16:09)
[2024-05-15 05:31] LABS: Differential Comment SCANNED
[2024-05-15 05:32] LABS: Platelet Estimate SLT DEC (ADEQ)
--- NOTE | 2024-05-15 05:55 | RAD_ITS ---
STUDY: X-RAY CHEST REASON FOR EXAM: Female, 78 years old. reps failure on vent TECHNIQUE: Single AP portable view of the chest. COMPARISON: Comparison is made with prior study May 14, 2024. FINDINGS: The endotracheal tube and orogastric tube have been removed. A right-sided portacatheter is seen at the junction of the superior vena cava and right atrium. EKG electrodes are seen. Stable mild degree of increased markings at the lung bases. There is no demonstrated pleural abnormality. Normal size heart. Normal mediastinum and ricardo. Normal visualized pulmonary arteries. Normal visualized aortic arch and descending thoracic aorta. Normal visualized thoracic spine. Normal visualized ribs, clavicles, and shoulders. There is no demonstrated abnormality of the visualized soft tissue structures of the upper abdomen. RAD/Chest 1 View (Portable) IMPRESSION: Stable mild increased markings at the lung bases. The endotracheal tube and orogastric tube of been removed. Electronically Signed: Omar Reyes MD at 8:34 EDT ,
[2024-05-15] MEDS: Diltiazem 125 MG in Dextrose 5%-Water (100mL Bag) 100 ML 15 MG IV ×2 (05:57→15:20)
[2024-05-15 06:38] LABS: Bedside Glucose 141 mg/dL (74-106)
--- NOTE | 2024-05-15 07:39 | PCM.CONS.B ---
Consult Date of Consult: 05/15/24 Reason for Consult Status post emergency stent placement as her sepsis she is off the ventilator she is slowly improving. Off to let her fully recover before I plan any surgical intervention for her stone for now the stent is in place and she is improving.
--- NOTE | 2024-05-15 07:51 | PCM.PN.CARD ---
Subjective Subjective Asked to see patient in reconsultation. Patient developed atrial fibrillation with a rapid ventricular response rate. Denies any chest pain or shortness of breath. Objective Data Vital Signs: Vital Signs Temp Pulse Resp BP Pulse Ox O2 Del Method O2 Flow Rate 99.1 F 134 H 19 H 135/92 H 98 Nasal Cannula 2 05/15/24 06:00 05/15/24 07:00 05/15/24 07:00 05/15/24 07:00 05/15/24 07:00 05/15/24 07:00 05/15/24 07:00 FiO2 30 05/14/24 13:00 Oxygen Flow Rate (L/min) 2 Oxygen Delivery Method Nasal Cannula Weight: 249 lb 4.8 oz Body Mass Index (BMI) 45.6 Intake & Output: Intake and Output for Last 24 Hours 05/13/24 05/14/24 05/15/24 23:59 23:59 23:59 Intake Total 3290.90 / 3303.10 1734.04 / 1749.04 240.00 / 240.00 Output Total 3770 / 3770 3750 / 3750 600 / 600 Balance -479.10 / -466.90 -2015.96 / -2000.96 -360.00 / -360.00 Lab / Micro Data 05/15/24 04:15 05/15/24 04:15 Labs: Laboratory Results - last 24 hr 05/14/24 04:10: Diff Path Review Reviewed 05/14/24 12:34: POC Glucose 181 H 05/14/24 16:45: POC Glucose 146 H 05/15/24 01:00: POC Glucose 125 H 05/15/24 04:15: WBC 32.7 H*, RBC 4.99, Hgb 13.8, Hct 43.0, MCV 86.2, MCH 27.7, MCHC 32.1, RDW Std Deviation 46.7 H, RDW Coeff of Nabor 15.9 H, Plt Count 95 L, MPV TNP, Immature Gran % (Auto) 3.300 H, Neut % (Auto) 85.4 H, Lymph % (Auto) 5.7 L, [place] % (Auto) 4.7, Eos % (Auto) 0.3, Baso % (Auto) 0.6, Absolute Neuts (auto) 27.9 H, Absolute Lymphs (auto) 1.88, Nucleated RBC % 0.2, Differential Comment SCANNED, Diff Path Review May , Platelet Estimate SLT DEC, Sodium 145, Potassium 3.7, Chloride 110 H, Carbon Dioxide 29.0, Anion Gap 6, BUN 48 H, Creatinine 1.12 H, Estim Creat Clear Calc 51.93, Est GFR (MDRD) Af Amer 61, Est GFR (MDRD) Non-Af 50 L, BUN/Creatinine Ratio 42.9 H, Glucose 134 H, Calcium 8.7, Total Bilirubin 0.70, AST 28, ALT 160 H, Alkaline Phosphatase 187 H, Total Protein 5.3 L, Albumin 2.0 L, Globulin 3.3, Albumin/Globulin Ratio 0.6 L 05/15/24 05:25: POC Glucose 141 H Micro: Microbiology 05/12/24 13:00 Blood Culture (Wb) - Left Wrist Blood Culture - Preliminary No growth in 48 hours. 05/12/24 12:50 Blood Culture (Wb) - Port Blood Culture - Preliminary No growth in 48 hours. 05/12/24 13:00 Sputum, Induced/Lukens Gram Stain - Final 05/12/24 13:00 Sputum, Induced/Lukens Respiratory Culture - Final Presumptive C albicans 05/08/24 20:05 Blood Culture (Wb) - Port Blood Culture - Final No growth in 5 days. 05/08/24 22:40 Blood Culture (Wb) - Line Draw Blood Culture - Final No growth in 5 days. Rhythm Strip Rhythm Strip: A-fib Rate: 85 Cardiology Labs/Tests 05/15/24 04:15: WBC 32.7 H*, RBC 4.99, Hgb 13.8, Hct 43.0, MCV 86.2, MCH 27.7, MCHC 32.1, Plt Count 95 L, MPV TNP, Immature Gran % (Auto) 3.300 H, Neut % (Auto) 85.4 H, Lymph % (Auto) 5.7 L, [place] % (Auto) 4.7, Eos % (Auto) 0.3, Baso % (Auto) 0.6, Absolute Neuts (auto) 27.9 H, Nucleated RBC % 0.2, Sodium 145, Potassium 3.7, Chloride 110 H, Carbon Dioxide 29.0, Anion Gap 6, BUN 48 H, Creatinine 1.12 H, Est GFR (MDRD) Af Amer 61, Est GFR (MDRD) Non-Af 50 L, BUN/Creatinine Ratio 42.9 H, Glucose 134 H, Calcium 8.7, Total Bilirubin 0.70 Rhythm: EKG: ECHO: Stress Test: Cardiac Cath: PCI: CT Surgery: Holter monitor: EPS: PPM: CXR: Chest CT Scan: Physical Exam Const alert, oriented x3 and no apparent distress General Appearance: cooperative HEENT hearing grossly normal bilaterally Head and Scalp: atraumatic Eyes EOMs intact bilaterally Neck General: normal visual inspection Chest inspection of chest normal and palpation of chest normal Resp normal respiratory effort Auscultation: clear to auscultation bilaterally Cardio S1 normal heart sound and S2 normal heart sound Jugular Venous Distention: JVD Rhythm: abnormal rhythm irregularly irregular GI normal to inspection, nondistended, normoactive bowel sounds Extremity normal capillary refill and no pedal edema Peripheral Pulses: Yes pulses 2+ throughout and femoral pulses present Skin no rashes or lesions noted Neuro oriented x3 and CN's II-XII intact bilaterally Psych Appearance: grossly normal and appropriate Assessment & Plan Assessment/Plan (1) Atrial fibrillation: QUALIFIERS: Atrial fibrillation type: paroxysmal Qualified Code(s): I48.0 - Paroxysmal atrial fibrillation PLAN: Patient's atrial fibrillation is uncontrolled. I would recommend that she maintain on the intravenous diltiazem and I would like us to add intravenous amiodarone. The diltiazem can be titrated. I think that the bioavailability issues with the sotalol and my recommendation at this time will be to discontinue it and continue with diltiazem and amiodarone. The heparinization has been discontinued due to her low platelet count. Her ejection fraction is preserved and we will continue to monitor her. Above discussed with intensive care unit nurses.
[2024-05-15] MEDS: Pantoprazole Sodium 40 MG in 0.9% Normal Saline (100mL MB+) 100 ML 330 MG IV ×2 (08:12→20:11)
[2024-05-15] MEDS: Menthol/Lanolin/Calamine/Znox 113 GM Tube 1 APPLIC TOPICAL ×2 (08:12→20:11)
[2024-05-15] MEDS: Meropenem 1 GM in 0.9% Normal Saline (100mL MB+) 100 ML IV (08:12)
[2024-05-15] MEDS: Amiodarone 150 MG in Dextrose 5%-Water (100mL Bag) 100 ML 600 MG IV BOLUS (08:27)
[2024-05-15] MEDS: Amiodarone 360 MG in Dextrose 5% Viaflo Bag 192.8 ML 33.3 MG CONT INF (08:41)
[2024-05-15] MEDS: Enoxaparin 40 MG/0.4 ML Syringe SC ×2 (09:58→20:12)
[2024-05-15] MEDS: Micafungin Sodium 100 MG in Dextrose 5%-Water (100mL Bag) 100 ML IV (09:58)
--- NOTE | 2024-05-15 11:08 | CASEMGMT ---
Social Work SW met with pt and dgt Olivia and discussed discharge plan. They are agreeable that pt will need short term rehab prior to returning home. A list of SNF providers including quality and resource use data and consistent with the patient?s preferred geographic region, medical needs, and insurance network were provided from the [facility] Guide. Pt preferred provider is TCU. DC will make referral when pt is closer to discharge. Plan: TCU, will make referral when pt is closer to discharge ELIA Rodriguez
[2024-05-15] MEDS: Insulin Lispro 100 UNIT/ML INSULN.PEN SC ×2 (11:56→17:08)
[2024-05-15 12:17] LABS: Bedside Glucose 175 mg/dL (74-106)
--- NOTE | 2024-05-15 13:15 | PN.CC_ITS ---
Objective Data Objective Data Vital Signs: Vital Signs Last response 3 Temperature 37.2 C 05/15/24 13:00 Temperature Source Core 05/15/24 13:00 Pulse Rate 116 H 05/15/24 13:00 Pulse Strength Normal (2+) 05/14/24 08:01 Respiratory Rate 20 H 05/15/24 13:00 Respiratory Effort Normal, Non-Labored 05/15/24 12:00 Respiratory Depth Normal 05/15/24 12:00 Respiratory Pattern Normal 05/15/24 12:00 Blood Pressure 147/95 H 05/15/24 13:00 Blood Pressure Mean 112 05/15/24 13:00 Blood Pressure Source Monitor 05/15/24 12:00 Blood Pressure Position Supine 05/15/24 12:00 Blood Pressure Location Left Arm 05/15/24 12:00 Pulse Ox 95 05/15/24 13:00 Oxygen Delivery Method Room Air 05/15/24 13:00 Oxygen Flow Rate (L/min) 2 05/15/24 08:00 Fraction of Inspired Oxygen (FIO2) 30 05/14/24 13:00 CLA-BSI maintained Yes 05/14/24 12:00 I&O: I&O Last 24 Hours 3 05/14/24 05/15/24 05/15/24 23:59 11:59 23:59 Intake Total 1478.52 / 1749.04 748.55 / 778.55 30 / 778.55 Output Total 1900 / 3750 1200 / 1200 Balance -421.48 / -2000.96 -451.45 / -421.45 30 / -421.45 I&O: Total Stay 3 05/08/24 12:41 thru 05/15/24 13:00 Intake Total 56020.51 Output Total 61941 Balance 57982.51 Current Meds Ordered / Administered: Current meds ordered / Administered 3 Generic Name Dose Route Start Last Admin Trade Name Freq PRN Reason Stop Dose Admin Acetaminophen 650 mg 05/08/24 21:48 05/13/24 05:43 Acetaminophen 325 Mg Tablet GT 650 mg Q6H PRN PRN Administration Pain 1-10 Or Fever >100.7 Albuterol/Ipratropium 3 ml 05/08/24 18:57 05/09/24 17:48 Ipratropium/Albuterol Sulfate 3 Ml Ampul.Neb INHALATION 3 ml Q4HWA.RT PRN Administration SHORTNESS OF BREATH Aspirin 81 mg 05/09/24 08:00 05/15/24 08:10 Aspirin 81 Mg Tab.Chew GT Not Given BREAKFAST EM Buspirone HCl 20 mg 05/08/24 22:00 05/13/24 14:59 Buspirone 5 Mg Tablet GT Not Given TID ME Calamine/Phenol 1 applic 05/08/24 22:00 05/15/24 08:12 Menthol/Lanolin/Calamine/Znox 113 Gm Tube TOPICAL 1 applic BID EM Administration Protocol Doxazosin Mesylate 2 mg 05/08/24 22:00 05/14/24 21:36 Doxazosin 4 Mg Tablet GT Not Given QHS EM Duloxetine HCl 60 mg 05/09/24 10:00 05/15/24 09:16 Duloxetine Hcl 60 Mg Capsule PO Not Given DAILY EM Enoxaparin Sodium 40 mg 05/15/24 10:00 05/15/24 09:58 Enoxaparin 40 Mg/0.4 Ml Syringe SC 40 mg BID EM Administration Ergocalciferol 1.25 mg 05/10/24 10:00 05/10/24 08:08 Ergocalciferol 1.25 Mg (50, 000 Unit) Capsule PO Not Given Fr@1000 EM Glucagon 1 mg 05/08/24 18:59 Glucagon 1 Mg/Ml Syringe IM X1 PRN Hypoglycemia Protocol Heparin Sodium (Beef Lung) 50 units 05/08/24 17:49 Heparin Pf Lock 10 Units/Ml 50 Units/5 Ml Syringe IV UD PRN Port-a-Cath (VAD)Heparin Flush Dextrose 250 mls @ 0 mls/hr 05/08/24 18:59 Dextrose 10%-Water IV .Q0M PRN HYPOGLYCEMIA Protocol As Directed Pantoprazole Sodium 40 mg/ 110 mls @ 330 mls/hr 05/09/24 22:00 05/15/24 08:33 Sodium Chloride IV Infused Q12 EM Infusion Meropenem 1 gm/ Sodium 120 mls @ 33 mls/hr 05/12/24 12:30 05/15/24 11:58 Chloride IV Infused Q12 EM Infusion Micafungin Sodium 100 mg/ 105 mls @ 100 mls/hr 05/13/24 10:00 05/15/24 11:02 Dextrose IV Infused Q24 EM Infusion Diltiazem HCl 125 mg/ Dextrose 125 mls @ 5 mls/hr 05/14/24 12:35 05/15/24 13:00 IV 15 mg/hr .Q25H EM 15 mls/hr Titration Protocol 5 MG/HR Amiodarone HCl 360 mg/ 200 mls @ 33.333 mls/hr 05/15/24 08:30 05/15/24 09:00 Dextrose CONT INF 05/15/24 14:29 1 mg/min .Q6H EM 33.3 mls/hr Infusion 1 MG/MIN Amiodarone HCl 360 mg/ 200 mls @ 16.667 mls/hr 05/15/24 14:30 Dextrose CONT INF 05/16/24 08:29 .Q12H EM 0.5 MG/MIN Insulin Glargine 20 unit 05/14/24 10:00 05/14/24 08:29 Insulin Glargine-Yfgn 100 Unit/Ml Pen SC 20 unit DAILY EM Administration Insulin Human Lispro 0 unit 05/09/24 18:00 05/15/24 11:56 Insulin Lispro 100 Unit/Ml Insuln.Pen SC 2 u Q6H [facility] Administration Protocol Magnesium Chloride 128 mg 05/09/24 10:00 05/15/24 09:15 Magnesium Chloride 64 Mg Delay Rel.Tablet PO Not Given DAILY [facility] Multivitamins 1 tablet 05/09/24 08:00 05/15/24 08:12 Multivitamins,Therapeutic Tablet GT Not Given DAILYCM [facility] Nystatin 1 applic 05/08/24 22:00 05/15/24 11:56 Nystatin Powder 15gm Bottle TOPICAL 1 applic TID [facility] Administration Protocol Oxycodone HCl 2.5 - 5 mg 05/08/24 18:38 Oxycodone 5 Mg Tablet PO Q4H PRN PRN Pain Score 4-10 Prochlorperazine Edisylate 5 mg 05/08/24 18:38 Prochlorperazine 10 Mg/2 Ml Vial IV Q4H PRN PRN Breakthrough nausea/vomiting Senna/Docusate Sodium 2 tablet 05/08/24 22:00 05/15/24 08:13 Senna/Docusate Sodium 1 Tablet GT Not Given BID [facility] Sodium Chloride 10 - 40 ml 05/08/24 17:49 05/15/24 05:26 0.9% Saline Lock 10 Ml Syringe IV 10 ml UD PRN Administration Port-a-Cath (VAD) Flush Sodium Chloride 5 ml 05/08/24 22:00 Sodium Cl For Inhalation 15 Ml Vial.Neb. INHALATION Q5M PRN Suctioning Tolterodine Tartrate 2 mg 05/09/24 10:00 05/15/24 09:15 Tolterodine Tartrate 2 Mg Cap.Sa PO Not Given DAILY EM Lab / Micro Data 05/15/24 04:15 05/15/24 04:15 Labs: Laboratory Results - last 24 hr 05/14/24 16:45: POC Glucose 146 H 05/15/24 01:00: POC Glucose 125 H 05/15/24 04:15: WBC 32.7 H*, RBC 4.99, Hgb 13.8, Hct 43.0, MCV 86.2, MCH 27.7, MCHC 32.1, RDW Std Deviation 46.7 H, RDW Coeff of Nabor 15.9 H, Plt Count 95 L, MPV TNP, Immature Gran % (Auto) 3.300 H, Neut % (Auto) 85.4 H, Lymph % (Auto) 5.7 L, [place] % (Auto) 4.7, Eos % (Auto) 0.3, Baso % (Auto) 0.6, Absolute Neuts (auto) 27.9 H, Absolute Lymphs (auto) 1.88, Nucleated RBC % 0.2, Differential Comment SCANNED, Diff Path Review November, Platelet Estimate SLT DEC, Sodium 145, Potassium 3.7, Chloride 110 H, Carbon Dioxide 29.0, Anion Gap 6, BUN 48 H, Creatinine 1.12 H, Estim Creat Clear Calc 51.93, Est GFR (MDRD) Af Amer 61, Est GFR (MDRD) Non-Af 50 L, BUN/Creatinine Ratio 42.9 H, Glucose 134 H, Calcium 8.7, Total Bilirubin 0.70, AST 28, ALT 160 H, Alkaline Phosphatase 187 H, Total Protein 5.3 L, Albumin 2.0 L, Globulin 3.3, Albumin/Globulin Ratio 0.6 L 05/15/24 05:25: POC Glucose 141 H 05/15/24 11:54: POC Glucose 175 H Rhythm Strip Rhythm Strip: A-fib Rate: 85 Imaging Radiology Impression Chest X-Ray 05/15/24 05:55 IMPRESSION: Stable mild increased markings at the lung bases. The endotracheal tube and orogastric tube of been removed. Electronically Signed: Omar Reyes MD at 8:34 EDT , Assessment and Plan . Assessment and plan: Subjective: Pt seen and examined. Extubated yesterday. Breathing O2 via N/C comfortably. HR remains elevated. PE: General: Acute on chronically ill appearing morbidly obese female HEENT: anicteric Sclera, nl nose; supple neck, no masses Cardiovascular: irreg irreg; +S1/S2; No rubs, gallops; no displaced PMI Respiratory: diminished; no crackles, wheezes, or rhonchi Abdominal: Non-tender; Non distended; hypoBS x 4; No Hepatosplenomegaly Extremities: Warm, well perfused; No clubbing, cyanosis; capillary refill < 2 sec Neurological: NF A/P: #Acute hypercapnic respiratory failure: extubated #Septic shock: resolved #Pyelonephritis: see above; monitor temp curve/WBC/band %; pansensitive E. coli on initial BCx; ID on board #Lt hydronephrosis 2* to obstructing nephrolithiasis: sp cystoscopy with stent placement; urology on board #ROSANA: resolving #Elevated LFTs: ?shock liver from earlier severe hypotension vs other; avoid hepatoxic meds --> surgery consult noted, agree with recommendations #AFib on Eliquis: cardiology following; cont sotalol and F/U limited TTE; sp hep gtt discontinued 05/11 due to low PLTs #NSTEMI: likely type II; cardiology following --> hep gtt D/C #Acute encephalopathy: likely toxic/metabolic; initial head CT unremarkable; cont supportive management - improved #COPD (nonsmoker, 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
--- NOTE | 2024-05-15 13:30 | PCM.PN.ID ---
Physical Exam Narrative Off vent, no dyspnea, some mild sputum, no fever, no abd pain Const alert and no apparent distress General Appearance: cooperative Resp normal air movement and clear to auscultation bilaterally Cardio regular rhythm Rate: tachycardic GI soft to palpation, non-tender and non-distended Extremity General Extremity: edema Skin no rashes or lesions noted ID ID: Route of nutrition/ use of supplements: [] Nutritional Intake: [] IV Site: [] Bruno Catheter: [] Assessment & Plan Assessment/Plan (1) Septic shock: PLAN: due to ecoli bacteremia from pyelo and L sided hydro. L ureteral stent placed by Dr. Wolfe 05/09/24. Off pressors. LFTs improved. Fever resolved. Sputum with yeast but minimal basilar changes on cxr, off vent and on room air. Received 3 days micafungin, will stop now. Will narrow meropenem to ceftriaxone. Will follow (2) History of ovarian cancer: (3) Hydronephrosis concurrent with and due to calculi of kidney and ureter: (4) Bacteremia due to Gram-negative bacteria:
[2024-05-15 14:07] LABS: Pathologist Review Reviewed
[2024-05-15] MEDS: Amiodarone 360 MG in Dextrose 5% Viaflo Bag 192.8 ML 16.7 MG CONT INF (15:22)
[2024-05-15] MEDS: Ceftriaxone 2 GM in 0.9% Normal Saline (50mL MB+) 50 ML IV (15:22)
--- NOTE | 2024-05-15 15:31 | PN.HOSP_ITS ---
Reason for Visit Reason for Visit: Left flank pain Subjective Subjective Patient extubated late yesterday. Denies any complaints at this time. Seems to be doing much better. Speech therapy to evaluate and anticipate need for swallow study. Discussed with patient that if she does not do well enough and food cannot be taken in for an extended period time may need to place an NG tube for tube feeds. Heart rate still fast and cardiology is addressing. Objective Data Objective Data Vital Signs: Vital Signs Temp Pulse Resp BP Pulse Ox O2 Del Method O2 Flow Rate 99.0 F 122 H 25 H 137/101 H 95 Room Air 2 05/15/24 13:00 05/15/24 14:00 05/15/24 14:00 05/15/24 14:00 05/15/24 14:00 05/15/24 14:00 05/15/24 08:00 FiO2 30 05/14/24 13:00 Oxygen Flow Rate (L/min) 2 Oxygen Delivery Method Room Air Weight: 113.081 kg Body Mass Index (BMI) 45.6 Intake & Output: Intake and Output for Last 24 Hours 05/13/24 05/14/24 05/15/24 23:59 23:59 23:59 Intake Total 3290.90 / 3303.10 1734.04 / 1749.04 797.80 / 797.80 Output Total 3770 / 3770 3750 / 3750 1200 / 1200 Balance -479.10 / -466.90 -2015.96 / -2000.96 -402.20 / -402.20 Lab / Micro Data 05/15/24 04:15 05/15/24 04:15 Labs: Laboratory Results - last 24 hr 05/14/24 16:45: POC Glucose 146 H 05/15/24 01:00: POC Glucose 125 H 05/15/24 04:15: WBC 32.7 H*, RBC 4.99, Hgb 13.8, Hct 43.0, MCV 86.2, MCH 27.7, MCHC 32.1, RDW Std Deviation 46.7 H, RDW Coeff of Nabor 15.9 H, Plt Count 95 L, MPV TNP, Immature Gran % (Auto) 3.300 H, Neut % (Auto) 85.4 H, Lymph % (Auto) 5.7 L, [place] % (Auto) 4.7, Eos % (Auto) 0.3, Baso % (Auto) 0.6, Absolute Neuts (auto) 27.9 H, Absolute Lymphs (auto) 1.88, Nucleated RBC % 0.2, Differential Comment SCANNED, Diff Path Review Reviewed, Platelet Estimate SLT DEC, Sodium 145, Potassium 3.7, Chloride 110 H, Carbon Dioxide 29.0, Anion Gap 6, BUN 48 H, Creatinine 1.12 H, Estim Creat Clear Calc 51.93, Est GFR (MDRD) Af Amer 61, Est GFR (MDRD) Non-Af 50 L, BUN/Creatinine Ratio 42.9 H, Glucose 134 H, Calcium 8.7, Total Bilirubin 0.70, AST 28, ALT 160 H, Alkaline Phosphatase 187 H, Total Protein 5.3 L, Albumin 2.0 L, Globulin 3.3, Albumin/Globulin Ratio 0.6 L 05/15/24 05:25: POC Glucose 141 H 05/15/24 11:54: POC Glucose 175 H Micro: Microbiology 05/12/24 13:00 Blood Culture (Wb) - Left Wrist Blood Culture - Preliminary No growth in 48 hours. 05/12/24 12:50 Blood Culture (Wb) - Port Blood Culture - Preliminary No growth in 48 hours. 05/12/24 13:00 Sputum, Induced/Lukens Gram Stain - Final 05/12/24 13:00 Sputum, Induced/Lukens Respiratory Culture - Final Presumptive C albicans 05/08/24 20:05 Blood Culture (Wb) - Port Blood Culture - Final No growth in 5 days. 05/08/24 22:40 Blood Culture (Wb) - Line Draw Blood Culture - Final No growth in 5 days. 05/09/24 02:02 Sputum, Induced/Lukens Gram Stain - Final 05/09/24 02:02 Sputum, Induced/Lukens Respiratory Culture - Final Presumptive C albicans 05/09/24 13:00 Urine Catheter - Bruno Urine Culture - Final Culture exhibits no growth. 05/08/24 13:50 Urine, Clean Catch Urine Culture - Final Presumptive E. coli 05/08/24 13:25 Blood Culture (Wb) - Anticubital Left Blood Culture - Final Escherichia coli 05/09/24 01:00 Stool Enteric Bacteriology - Final 05/09/24 01:00 Stool Clostridioides difficile (PCR) - Final 05/08/24 13:25 Mucosa - Nose SARS-CoV-2, Influenza & RSV (PCR) - Final Radiography Diagnostic Testing: Radiology Impression Chest X-Ray 05/15/24 05:55 IMPRESSION: Stable mild increased markings at the lung bases. The endotracheal tube and orogastric tube of been removed. Electronically Signed: Omar Reyes MD at 8:34 EDT , Rhythm Strip Rhythm Strip: A-fib Rate: 85 Physical Exam Const alert, oriented x3, no apparent distress and well nourished; Negative for average body habitus or healthy appearing Constitutional Narrative: Morbidly obese, older, white female, sitting up in bed watching television, extubated, appears comfortable, nontoxic Orientation / Consciousness: lethargic HEENT normocephalic, head/scalp atraumatic and moist oral mucous membranes HEENT Narrative: Lips are dry but mucous membranes are moist, Mallampati 3, no thrush Resp normal respiratory effort, no retractions, no use of accessory muscles and clear to auscultation bilaterally Resp Narrative: On room air with comfortable breathing and no signs of respiratory distress or conversation with dyspnea Auscultation: Negative for crackles, rhonchi or wheezes Cardio S1 normal heart sound, S2 normal heart sound, no murmurs, no rub, no gallops and no clicks Cardio Narrative: Tachycardia with irregularly irregular rhythm GI normal to inspection, nondistended, normoactive bowel sounds, soft to palpation and non-tender GI Narrative: protuberant abdomen Extremity Extremity Narrative: 1+ pitting edema bilaterally upper and lower extremities, pedal pulses are 2+, radial art line removed and radial pulses are 2+ bilaterally General Extremity: no tenderness to palpation of joints or extremities Skin General Skin Exam: no breakdown Neuro oriented x3, moves all extremities and no focal motor deficits Neuro Narrative: Appears marked, speech is clear but soft Speech: Negative for speech normal Motor Exam: general weakness Psych Psych Narrative: Affect is flat but appropriate for current situation eye contact is good, response times are slightly slow Assessment & Plan Assessment/Plan (1) Elevated LFTs: (2) Bacteremia due to Gram-negative bacteria: (3) Elevated troponin: (4) Septic shock: PLAN: Plan Septic shock secondary to E. coli bacteremia from UTI with pyelonephritis and left-sided hydronephrosis -Shock has resolved -Left ureteral stent placed by Dr. Aiden jorgensen on 05/09/2024 -Follow-up cultures are unremarkable -ID has transitioned her to ceftriaxone only -ID and critical care medicine following-appreciate input Acute hypoxic respiratory failure secondary to the above -Extubated on 05/15/2024 -Speech therapy to evaluate with modified barium swallow pending for tomorrow -Lasix 40 mg IV push today Fever -Resolved -Highly suspect this was drug-induced fever from Precedex Leukocytosis -Remains elevated-->? Leukemoid reaction Thrombocytopenia -Slowly trending up -Start subcu Lovenox today and if continues to improve we will add Eliquis tomorrow A-fib with RVR -Remains in atrial fibrillation with RVR -Management per cardiology -Once platelet count greater than 100,000 will start apixaban 5 mg twice daily ROSANA -Baseline serum creatinine appears to run between 0.8 and 1.1 -Peak serum creatinine during hospitalization is 2.66 -1.12 today -Repeat BMP in a.m. 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 -Continue to hold Lantus until p.o. diet can be reinitiated and then will reassess Ovarian cancer -Avastin is on hold due to the above Morbid obesity -BMI 45.6 -Complicates treatment, prognosis, outcomes -Recommend weight loss DVT/GI prophylaxis -Start Lovenox SQ twice daily 40 mg--> will discontinue once we can start Eliquis 5 mg p.o. twice daily -Continue IV Protonix 40 daily CODE STATUS -Full code Charges/Coding Visit Charges Inpatient E&M: 26126 Subs Hosp L2
[2024-05-15] MEDS: Furosemide 40 MG/4 ML Vial IV (16:09)
[2024-05-15 18:54] LABS: Bedside Glucose 158 mg/dL (74-106)
[2024-05-15] MEDS: Ipratropium/Albuterol Sulfate 3 ML AMPUL.NEB INHALATION (19:23)
[2024-05-15] MEDS: Senna/Docusate Sodium 1 Tablet 2 TABLET GT (20:12)
[2024-05-15] MEDS: Doxazosin 4 MG Tablet 2 MG GT (20:12)
[2024-05-16] VITALS (26 sets, daily range): BP systolic 130–160; BP diastolic 72–102; PULSE 86–127; RESP 17–29; TEMP 37.2–37.7; O2SAT 92–95; BMI 46.2
[2024-05-16 00:15] LABS: Bedside Glucose 134 mg/dL (74-106)
[2024-05-16] MEDS: Amiodarone 360 MG in Dextrose 5% Viaflo Bag 192.8 ML 16.7 MG CONT INF ×2 (03:19→15:48)
[2024-05-16 04:24] LABS: Absolute Lymphocyte Count 1.58 X10^3/uL (0.83-4.51); Absolute Neutrophil Count 21.9 X10^3/uL (2.0-7.7); Basophil# 0.12 X10^3/uL; Basophil% 0.5 % (0-1); Eosinophil# 0.08 X10^3/uL; Eosinophils% 0.3 % (0-5); Hematocrit 41.9 % (37-47); Hemoglobin 13.4 g/dL (12.0-15.0); Lymphocyte # 1.58 X10^3/ul (0.83-4.51); Lymphocyte % 6.1 % (19-41); Mean Corpuscular Hgb 27.9 pg (27.0-32.0); Mean Corpuscular Volume 87.1 fL (81-99); Monocyte# 1.18 X10^3/uL; Monocyte% 4.6 % (0-10); NRBC Flagged by Analyzer 0.2 % (0-5); Neutrophil # 21.89 X10^3/uL (2.7-7.7); Neutrophil % 85.1 % (47-70); POSITIVE DIFFERENTIAL YES; Platelet Count 122 K/mm3 (150-450); RBC Distribution Width CV 16.8 % (11.6-14.6); RBC Distribution Width SD 47.4 fl (35.1-43.9); Red Blood Count 4.81 M/mm3 (4.2-5.4); White Blood Count 25.7 K/mm3 (4.4-11.0)
[2024-05-16 04:28] LABS: Differential Indicated SCAN CRITERIA MET
[2024-05-16 04:47] LABS: ALB/GLOB Ratio 0.6 RATIO (0.9-2.4); AST(SGOT) 30 U/L (15-37); Alanine Aminotransfer ALT/SGPT 116 U/L (13-56); Albumin, Serum 2.2 g/dL (3.2-5.0); Alkaline Phosphatase 170 U/L (45-117); Anion Gap 7 (5-15); BUN 41 mg/dL (7-18); Calcium,Total 8.8 mg/dL (8.5-10.1); Chloride 107 mmol/L (98-107); Creatinine, Serum 1.14 mg/dL (0.55-1.02); EST Glomerular Filtration Rate 49 mL/min (>60); Est Glom Filt Rate - Afr Amer 60 mL/min (>60); Globulin 3.5 g/dL (2.2-4.2); Glucose 157 mg/dL (74-106); Magnesium 1.6 mg/dL (1.6-2.6); Phosphorus 4.7 mg/dL (2.5-4.9); Potassium 3.6 mmol/L (3.5-5.1); Protein, Total 5.7 g/dL (6.4-8.2); Sodium Level 144 mmol/L (136-145)
[2024-05-16 05:08] LABS: Differential Comment SCANNED
[2024-05-16] MEDS: Insulin Lispro 100 UNIT/ML INSULN.PEN SC ×3 (06:43→23:13)
[2024-05-16] MEDS: Nystatin Powder 15gm Bottle 1 APPLIC TOPICAL ×3 (06:43→20:24)
[2024-05-16 07:04] LABS: Bedside Glucose 150 mg/dL (74-106)
--- NOTE | 2024-05-16 07:42 | PCM.PN.HOSP ---
Reason for Visit Reason for Visit: Flank pain Subjective Subjective No issues overnight. Patient still remains tachycardic however heart rates do seem to be coming down with amiodarone drip and diltiazem drip. Her A-fib has been difficult to control. Plan is for modified barium swallow later today. Tmax in the last 24 hours is 99.2. Objective Data Objective Data Vital Signs: Vital Signs Temp Pulse Resp BP Pulse Ox O2 Del Method O2 Flow Rate 99.2 F H 112 H 22 H 152/92 H 95 Room Air 2 05/16/24 00:00 05/16/24 07:00 05/16/24 07:00 05/16/24 07:00 05/16/24 07:00 05/16/24 07:00 05/15/24 08:00 FiO2 30 05/15/24 19:00 Oxygen Flow Rate (L/min) 2 Oxygen Delivery Method Room Air Weight: 114 kg Body Mass Index (BMI) 46.2 Intake & Output: Intake and Output for Last 24 Hours 05/14/24 05/15/24 05/16/24 23:59 23:59 23:59 Intake Total 1734.04 / 1749.04 1272.25 / 1272.25 304.57 / 304.57 Output Total 3750 / 3750 3450 / 3450 650 / 650 Balance -2015.96 / -2000.96 -2177.75 / -2177.75 -345.43 / -345.43 Lab / Micro Data 05/16/24 04:07 05/16/24 04:07 Labs: Laboratory Results - last 24 hr 05/15/24 04:15: Diff Path Review Reviewed 05/15/24 11:54: POC Glucose 175 H 05/15/24 17:07: POC Glucose 158 H 05/15/24 23:20: POC Glucose 134 H 05/16/24 04:07: WBC 25.7 H, RBC 4.81, Hgb 13.4, Hct 41.9, MCV 87.1, MCH 27.9, MCHC 32.0, RDW Std Deviation 47.4 H, RDW Coeff of Nabor 16.8 H, Plt Count 122 L, MPV 13.0 H, Immature Gran % (Auto) 3.400 H, Neut % (Auto) 85.1 H, Lymph % (Auto) 6.1 L, [place] % (Auto) 4.6, Eos % (Auto) 0.3, Baso % (Auto) 0.5, Absolute Neuts (auto) 21.9 H, Absolute Lymphs (auto) 1.58, Nucleated RBC % 0.2, Differential Comment SCANNED, Sodium 144, Potassium 3.6, Chloride 107, Carbon Dioxide 30.0, Anion Gap 7, BUN 41 H, Creatinine 1.14 H, Estim Creat Clear Calc 49.90, Est GFR (MDRD) Af Amer 60, Est GFR (MDRD) Non-Af 49 L, BUN/Creatinine Ratio 36.0 H, Glucose 157 H, Calcium 8.8, Phosphorus 4.7, Magnesium 1.6, Total Bilirubin 0.70, AST 30, ALT 116 H, Alkaline Phosphatase 170 H, Total Protein 5.7 L, Albumin 2.2 L, Globulin 3.5, Albumin/Globulin Ratio 0.6 L 05/16/24 06:41: POC Glucose 150 H Micro: Microbiology 05/12/24 13:00 Blood Culture (Wb) - Left Wrist Blood Culture - Preliminary No growth in 48 hours. 05/12/24 12:50 Blood Culture (Wb) - Port Blood Culture - Preliminary No growth in 48 hours. 05/12/24 13:00 Sputum, Induced/Lukens Gram Stain - Final 05/12/24 13:00 Sputum, Induced/Lukens Respiratory Culture - Final Presumptive C albicans 05/08/24 20:05 Blood Culture (Wb) - Port Blood Culture - Final No growth in 5 days. 05/08/24 22:40 Blood Culture (Wb) - Line Draw Blood Culture - Final No growth in 5 days. 05/09/24 02:02 Sputum, Induced/Lukens Gram Stain - Final 05/09/24 02:02 Sputum, Induced/Lukens Respiratory Culture - Final Presumptive C albicans 05/09/24 13:00 Urine Catheter - Bruno Urine Culture - Final Culture exhibits no growth. 05/08/24 13:50 Urine, Clean Catch Urine Culture - Final Presumptive E. coli 05/08/24 13:25 Blood Culture (Wb) - Anticubital Left Blood Culture - Final Escherichia coli 05/09/24 01:00 Stool Enteric Bacteriology - Final 05/09/24 01:00 Stool Clostridioides difficile (PCR) - Final 05/08/24 13:25 Mucosa - Nose SARS-CoV-2, Influenza & RSV (PCR) - Final Radiography Diagnostic Testing: Radiology Impression Chest X-Ray 05/15/24 05:55 IMPRESSION: Stable mild increased markings at the lung bases. The endotracheal tube and orogastric tube of been removed. Electronically Signed: Omar Reyes MD at 8:34 EDT , Rhythm Strip Rhythm Strip: A-fib Rate: 85 Physical Exam Const alert, oriented x3, no apparent distress and well nourished; Negative for average body habitus or healthy appearing Constitutional Narrative: Morbidly obese, older, white female, lying in bed sleeping but awakens easily, currently appears comfortable, nontoxic HEENT normocephalic and head/scalp atraumatic HEENT Narrative: Oropharynx is dry, Mallampati is 2-3, no thrush Resp normal respiratory effort, no retractions, no use of accessory muscles and clear to auscultation bilaterally Resp Narrative: Remains on room air and appears comfortable with regards to respiratory effort Auscultation: Negative for crackles, rhonchi or wheezes Cardio S1 normal heart sound, S2 normal heart sound, no murmurs, no rub, no gallops and no clicks Cardio Narrative: Tachycardia with irregularly irregular rhythm GI normal to inspection, nondistended, normoactive bowel sounds, soft to palpation and non-tender GI Narrative: protuberant abdomen Extremity no clubbing, cyanosis or edema Extremity Narrative: 1+ pitting edema bilaterally upper and lower extremities, pedal pulses are 2+ Neuro oriented x3, moves all extremities and no focal motor deficits Neuro Narrative: Speech 3 main soft, severe generalized weakness Speech: Negative for speech normal Psych Psych Narrative: Affect is flat but appropriate for current situation eye contact is good, response times are more appropriate today Assessment & Plan Assessment/Plan (1) Elevated LFTs: (2) Bacteremia due to Gram-negative bacteria: (3) Elevated troponin: (4) Septic shock: PLAN: Plan Septic shock secondary to E. coli bacteremia from UTI with pyelonephritis and left-sided hydronephrosis -Shock has resolved -Left ureteral stent placed by Dr. Aiden jorgensen on 05/09/2024 -Follow-up cultures are unremarkable -Continue ceftriaxone with duration per infectious disease -ID and critical care medicine following-appreciate input Acute hypoxic respiratory failure secondary to the above -Extubated on 05/15/2024 -Speech therapy to evaluate with modified barium swallow pending for tomorrow -Repeat Lasix 40 mg IV push today -If passes p.o. diet will give some p.o. potassium if not we will supplement with IV potassium Leukocytosis -Seems to now be trending down Thrombocytopenia -Greater than 100,000 -Will start Eliquis if passes for p.o. diet A-fib with RVR -Remains in atrial fibrillation with RVR -Management per cardiology--> currently on amiodarone and diltiazem drip -Plan to start apixaban 5 mg p.o. twice daily today if passes p.o. diet ROSANA -Baseline serum creatinine appears to run between 0.8 and 1.1 -Peak serum creatinine during hospitalization is 2.66 -1.14 today -Repeat BMP in a.m. 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 -Continue to hold Lantus until p.o. diet can be reinitiated and then will reassess -Fasting blood sugar this morning was 157 Ovarian cancer -Avastin is on hold due to the above Morbid obesity -BMI 46 -Complicates treatment, prognosis, outcomes -Recommend weight loss DVT/GI prophylaxis -Continue Lovenox 40 subcu twice daily but will discontinue if able to transition to Eliquis later today -Continue IV Protonix 40 daily CODE STATUS -Full code Charges/Coding Visit Charges Inpatient E&M: 28462 Subs Hosp L2
[2024-05-16] MEDS: Digoxin 250 MCG/ML Ampul 500 MCG IV (07:54)
[2024-05-16] MEDS: Furosemide 40 MG/4 ML Vial IV (07:54)
[2024-05-16] MEDS: 0.9% Saline Lock 10 ML Syringe IV ×3 (07:58→15:48)
[2024-05-16] MEDS: Diltiazem 125 MG in Dextrose 5%-Water (100mL Bag) 100 ML 15 MG IV ×3 (09:05→18:00)
[2024-05-16] MEDS: Pantoprazole Sodium 40 MG in 0.9% Normal Saline (100mL MB+) 100 ML 330 MG IV ×2 (09:50→20:28)
[2024-05-16] MEDS: Enoxaparin 40 MG/0.4 ML Syringe SC (09:53)
[2024-05-16] MEDS: Menthol/Lanolin/Calamine/Znox 113 GM Tube 1 APPLIC TOPICAL ×2 (09:54→20:24)
[2024-05-16] MEDS: Ceftriaxone 2 GM in 0.9% Normal Saline (50mL MB+) 50 ML IV (09:54)
--- NOTE | 2024-05-16 10:01 | PCM.PN.ID ---
Physical Exam Narrative Feeling ok, no fever, no abd pain, some trouble managing secretions. No dyspnea. Const alert and no apparent distress Resp normal air movement and clear to auscultation bilaterally Cardio Rate: tachycardic GI soft to palpation, non-tender and non-distended Skin no rashes or lesions noted ID ID: Route of nutrition/ use of supplements: [] Nutritional Intake: [] IV Site: [] Bruno Catheter: [] Assessment & Plan Assessment/Plan (1) Septic shock: PLAN: due to ecoli bacteremia from pyelo and L sided hydro. L ureteral stent placed by Dr. Wolfe 05/09/24. Off pressors. LFTs improved. Fever resolved. Sputum with yeast but minimal basilar changes on cxr, off vent and on room air. Received 3 days micafungin. Cont ceftriaxone. Wbc improved today. Will follow (2) History of ovarian cancer: (3) Hydronephrosis concurrent with and due to calculi of kidney and ureter: (4) Bacteremia due to Gram-negative bacteria:
--- NOTE | 2024-05-16 11:09 | PCM.PN.TICU ---
Objective Data Objective Data Vital Signs: Vital Signs Last response Temperature 37.4 C H 05/16/24 10:00 Temperature Source Core 05/16/24 10:00 Pulse Rate 102 H 05/16/24 10:00 Pulse Strength Normal (2+) 05/14/24 08:01 Respiratory Rate 22 H 05/16/24 10:00 Respiratory Effort Normal, Non-Labored 05/16/24 08:00 Respiratory Depth Normal 05/16/24 08:00 Respiratory Pattern Normal 05/16/24 08:00 Blood Pressure 154/78 H 05/16/24 10:00 Blood Pressure Mean 103 05/16/24 10:00 Blood Pressure Source Monitor 05/16/24 10:00 Blood Pressure Position Semi-Fowlers 05/16/24 10:00 Blood Pressure Location Left Forearm 05/16/24 10:00 Pulse Ox 92 05/16/24 10:00 Oxygen Delivery Method Room Air 05/16/24 10:00 Oxygen Flow Rate (L/min) 2 05/15/24 08:00 Fraction of Inspired Oxygen (FIO2) 30 05/15/24 19:00 CLA-BSI maintained Yes 05/14/24 12:00 I&O: I&O Last 24 Hours 05/15/24 05/15/24 05/16/24 11:59 23:59 11:59 Intake Total 748.55 / 1272.25 523.70 / 1272.25 498.32 / 498.32 Output Total 1200 / 3450 2250 / 3450 1650 / 1650 Balance -451.45 / -2177.75 -1726.30 / -2177.75 -1151.68 / -1151.68 I&O: Total Stay 05/08/24 12:41 thru 05/16/24 10:29 Intake Total 83323.53 Output Total 12162 Balance 16392.53 Current Meds Ordered / Administered: Current meds ordered / Administered Generic Name Dose Route Start Last Admin Trade Name Freq PRN Reason Stop Dose Admin Acetaminophen 650 mg 05/16/24 04:39 Acetaminophen 325 Mg Tablet PO Q6H PRN PRN Pain 1-10 Or Fever >100.7 Albuterol/Ipratropium 3 ml 05/08/24 18:57 05/15/24 19:23 Ipratropium/Albuterol Sulfate 3 Ml Ampul.Neb INHALATION 3 ml Q4HWA.RT PRN Administration SHORTNESS OF BREATH Aspirin 81 mg 05/16/24 08:00 05/16/24 07:39 Aspirin 81 Mg Tab.Chew PO Not Given BREAKFAST ME Buspirone HCl 20 mg 05/16/24 06:00 05/16/24 06:43 Buspirone 5 Mg Tablet PO Not Given TID EM Calamine/Phenol 1 applic 05/08/24 22:00 05/16/24 09:54 Menthol/Lanolin/Calamine/Znox 113 Gm Tube TOPICAL 1 applic BID EM Administration Protocol Doxazosin Mesylate 2 mg 05/16/24 22:00 Doxazosin 4 Mg Tablet PO QHS EM Duloxetine HCl 60 mg 05/09/24 10:00 05/16/24 09:21 Duloxetine Hcl 60 Mg Capsule PO Not Given DAILY EM Enoxaparin Sodium 40 mg 05/15/24 10:00 05/16/24 09:53 Enoxaparin 40 Mg/0.4 Ml Syringe SC 40 mg BID EM Administration Ergocalciferol 1.25 mg 05/10/24 10:00 05/10/24 08:08 Ergocalciferol 1.25 Mg (50, 000 Unit) Capsule PO Not Given Fr@1000 EM Glucagon 1 mg 05/08/24 18:59 Glucagon 1 Mg/Ml Syringe IM X1 PRN Hypoglycemia Protocol Heparin Sodium (Beef Lung) 50 units 05/08/24 17:49 Heparin Pf Lock 10 Units/Ml 50 Units/5 Ml Syringe IV UD PRN Port-a-Cath (VAD)Heparin Flush Dextrose 250 mls @ 0 mls/hr 05/08/24 18:59 Dextrose 10%-Water IV .Q0M PRN HYPOGLYCEMIA Protocol As Directed Pantoprazole Sodium 40 mg/ 110 mls @ 330 mls/hr 05/09/24 22:00 05/16/24 10:21 Sodium Chloride IV Infused Q12 EM Infusion Diltiazem HCl 125 mg/ Dextrose 125 mls @ 5 mls/hr 05/14/24 12:35 05/16/24 10:00 IV 15 mg/hr .Q25H EM 15 mls/hr Titration Protocol 5 MG/HR Ceftriaxone Sodium 2 gm/ 50 mls @ 100 mls/hr 05/15/24 13:30 05/16/24 10:29 Sodium Chloride IV Infused Q24 EM Infusion Amiodarone HCl 360 mg/ 200 mls @ 16.667 mls/hr 05/16/24 08:30 Dextrose CONT INF .Q12H [facility] 0.5 MG/MIN Insulin Glargine 20 unit 05/14/24 10:00 05/14/24 08:29 Insulin Glargine-Yfgn 100 Unit/Ml Pen SC 20 unit DAILY [facility] Administration Insulin Human Lispro 0 unit 05/09/24 18:00 05/16/24 06:43 Insulin Lispro 100 Unit/Ml Insuln.Pen SC 2 u Q6H [facility] Administration Protocol Magnesium Chloride 128 mg 05/09/24 10:00 05/16/24 09:22 Magnesium Chloride 64 Mg Delay Rel.Tablet PO Not Given DAILY [facility] Multivitamins 1 tablet 05/16/24 08:00 05/16/24 07:39 Multivitamins,Therapeutic Tablet PO Not Given DAILYCM [facility] Nystatin 1 applic 05/08/24 22:00 05/16/24 06:43 Nystatin Powder 15gm Bottle TOPICAL 1 applic TID [facility] Administration Protocol Oxycodone HCl 2.5 - 5 mg 05/08/24 18:38 Oxycodone 5 Mg Tablet PO Q4H PRN PRN Pain Score 4-10 Prochlorperazine Edisylate 5 mg 05/08/24 18:38 Prochlorperazine 10 Mg/2 Ml Vial IV Q4H PRN PRN Breakthrough nausea/vomiting Senna/Docusate Sodium 2 tablet 05/16/24 10:00 05/16/24 09:48 Senna/Docusate Sodium 1 Tablet PO Not Given BID [facility] Sodium Chloride 10 - 40 ml 05/08/24 17:49 05/16/24 09:53 0.9% Saline Lock 10 Ml Syringe IV 20 ml UD PRN Administration Port-a-Cath (VAD) Flush Sodium Chloride 5 ml 05/08/24 22:00 Sodium Cl For Inhalation 15 Ml Vial.Neb. INHALATION Q5M PRN Suctioning Tolterodine Tartrate 2 mg 05/09/24 10:00 05/16/24 09:21 Tolterodine Tartrate 2 Mg Cap.Sa PO Not Given DAILY [facility] Lab / Micro Data 05/16/24 04:07 05/16/24 04:07 Labs: Laboratory Results - last 24 hr 05/15/24 04:15: Diff Path Review Reviewed 05/15/24 11:54: POC Glucose 175 H 05/15/24 17:07: POC Glucose 158 H 05/15/24 23:20: POC Glucose 134 H 05/16/24 04:07: WBC 25.7 H, RBC 4.81, Hgb 13.4, Hct 41.9, MCV 87.1, MCH 27.9, MCHC 32.0, RDW Std Deviation 47.4 H, RDW Coeff of Nabor 16.8 H, Plt Count 122 L, MPV 13.0 H, Immature Gran % (Auto) 3.400 H, Neut % (Auto) 85.1 H, Lymph % (Auto) 6.1 L, [place] % (Auto) 4.6, Eos % (Auto) 0.3, Baso % (Auto) 0.5, Absolute Neuts (auto) 21.9 H, Absolute Lymphs (auto) 1.58, Nucleated RBC % 0.2, Differential Comment SCANNED, Sodium 144, Potassium 3.6, Chloride 107, Carbon Dioxide 30.0, Anion Gap 7, BUN 41 H, Creatinine 1.14 H, Estim Creat Clear Calc 49.90, Est GFR (MDRD) Af Amer 60, Est GFR (MDRD) Non-Af 49 L, BUN/Creatinine Ratio 36.0 H, Glucose 157 H, Calcium 8.8, Phosphorus 4.7, Magnesium 1.6, Total Bilirubin 0.70, AST 30, ALT 116 H, Alkaline Phosphatase 170 H, Total Protein 5.7 L, Albumin 2.2 L, Globulin 3.5, Albumin/Globulin Ratio 0.6 L 05/16/24 06:41: POC Glucose 150 H Rhythm Strip Rhythm Strip: A-fib Rate: 85 Assessment and Plan . Assessment and plan: Subjective: Pt seen and examined. Breathing O2 via N/C comfortably. HR remains elevated - receiving amiodarone, cardizem, digoxin. She is globally weak. Speech therapy ongoing. I/O (-) PE: General: Acute on chronically ill appearing morbidly obese female HEENT: anicteric Sclera, nl nose; supple neck, no masses Cardiovascular: irreg irreg; +S1/S2; No rubs, gallops; no displaced PMI Respiratory: diminished; no crackles, wheezes, or rhonchi Abdominal: Non-tender; Non distended; hypoBS x 4; No Hepatosplenomegaly Extremities: Warm, well perfused; No clubbing, cyanosis; capillary refill < 2 sec Neurological: NF A/P: #Acute hypercapnic respiratory failure: extubated 05/14/24 #Septic shock: resolved #Leukocytosis #Pyelonephritis: see above; monitor temp curve/WBC/band %; pansensitive E. 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
[2024-05-16 13:08] LABS: Bedside Glucose 173 mg/dL (74-106)
--- NOTE | 2024-05-16 13:50 | SP.MBSS_ITS ---
Modified Barium Swallow Patient Information Study Date: 05/16/24 Study Time: 13:00 Direct Billable Minutes: 99 Total Minutes procedure & reportin Diagnosis: GERD K21.9, COPD J44.9 Referring Physician: Beatrice Aguilar Reason for Referral: Objectively assess swallow function, assess risk for aspiration, and determine recommendations for least restrictive diet textures and compensatory strategies to improve safety of swallow. Medical History: Pt is a 78 F who came to ED with intermittent left flank pain that started day before admission. Yesterday she had a flu shot and felt like some chills. Her symptoms got worse today with more chills with shivering, left flank pain, and dry heaving. She was admitted to [facility] and a code blue was called, she was unresponsive and subsequently intubated and transferred to ICU. Intubated 05/08/24 @ 2047 w/ #7.5 ETT, 22 @ lip x 7 days, extubated 05/14/24 pm. She was referred for BSE 05/15/2024 to assess concerns for swallowing difficulty. Pt was recommended NPO w/ ice chips and recommended for MBSS prior to diet advancement. PMHx: Depression, Diabetes, Kidney stones, Non-smoker, CPAP (continuous positive airway pressure) dependence, Congestive heart failure (CHF), Myocardial infarct, OAB (overactive bladder), Atypical chest pain, Urinary frequency, Breast cancer screening, Grief reaction, Non-rheumatic tricuspid valve insufficiency, Non- rheumatic mitral regurgitation, History of cardioversion (~06/28/22), Chronic atrial fibrillation with RVR, Obstructive sleep apnea, Chronic obstructive pulmonary disease, Depression, Preop cardiovascular exam, Port-A-Cath in place, Ovarian cancer, Pelvic mass, Ascites, Diarrhea, Abdominal pain, Flu vaccine need, Vitamin D deficiency, Essential hypertension, Diastolic congestive heart failure, Atherosclerotic heart disease of [place] coronary artery without angina pectoris, Long-term use of high-risk medication, SOB (shortness of breath), Pulmonary HTN, Panic disorder, Hiatal hernia, Debility, Paroxysmal atrial fibrillation with rapid ventricular response, Streptococcal pneumonia, Acute exacerbation of chronic obstructive pulmonary disease (COPD), Acute respiratory failure with hypoxia and hypercarbia, NSTEMI (non-ST elevated myocardial infarction), Sepsis, Junctional rhythm, Spastic colon, Morbid obesity, PAF (paroxysmal atrial fibrillation), HLD (hyperlipidemia), CAD (coronary artery disease), Anxiety, DM2 (diabetes mellitus, type 2), Hypokalemia. Current Diet Ordered: NPO w/ ice chips Dentition: Natural Teeth Mental Status: WNL (Able to follow commands to complete the assessment. Appeared fatigued.) Respiratory Status: Oxygenating on Room Air Penetration-Aspiration Scale Penetration-Aspiration Scale: OBJECTIVE ASSESSMENT OF SWALLOW FUNCTION (QUANTITATIVE ? PER TRIAL): PENETRATION / ASPIRATION SCALE (MYERS): 1 = does not enter airway 2 = enters airway/above vocal folds/ejected 3 = enters airway/above vocal folds/not ejected 4 = enters airway/contacts vocal folds/ejected 5 = enters airway/contacts vocal folds/not ejected 6 = enters airway/below vocal folds/ejected 7 = enters airway/below vocal folds/not ejected despite effort 8 = enters airway/below vocal folds/no effort VIDEOFLOROSCOPIC SCALE SCORE (MYERS): Grade I = aspiration of material that has penetrated into the laryngeal vestibule, intact cough reflex Grade II = aspiration < 10 % of the bolus, intact cough reflex Grade III = aspiration of < 10 % of the bolus, reduced cough reflex or aspiration of > 10 % of the bolus, intact cough reflex Grade IV = aspiration of > 10 % of the bolus, reduced cough reflex Penetration-Aspiration Scale Score Thin Liquid via teaspoon: Result: 1= does not enter airway Thin Liquid via teaspoon Trial 2: Result: 8= enters airway/below vocal folds/no effort Comment: Cued cough and re-swallow = somewhat effective. [place] Thick Liquid via teaspoon: Result: 2= enter airway/above vocal folds/ejected [place] Thick Liquid via large single sip: cup: Result: 5= enters airways/contacts vocal folds/not ejected Comment: Reflexive throat clear = somewhat effective. Pudding via teaspoon: Result: 2= enter airway/above vocal folds/ejected [place] Thick Liquid via teaspoon Trial 2: Result: 8= enters airway/below vocal folds/no effort Comment: Cued cough and re-swallow = somewhat effective. [place] Thick Liquid via teaspoon: Result: 1= does not enter airway Pudding via teaspoon Trial 2: Result: 1= does not enter airway [place] Thick Liquid via small single sip: cup: Result: 1= does not enter airway Thin Liquid via teaspoon Effortful swallow: Result: 7= enters airways/below vocal folds/not ejected despite effort Comment: Reflexive throat clear = not effective. Cued cough and re-swallow = somewhat effective. Thin Liquid via teaspoon Chin tuck: Result: 5= enters airways/contacts vocal folds/not ejected Comment: Cued cough and re-swallow = somewhat effective. Oral Phase Labial Seal: Escape beyond mid-chin Tongue Control During Bolus Hold: Posterior escape of greater than half of bolus Bolus Transport/Lingual Motion: Repetitive/disorganized tongue motion Oral Residue: Residue collection on oral structures Pharyngeal Phase Initiation of Pharyngeal Swallow: Bolus head in pyriforms (thin by tsp trial 2 in laryngeal vestibule prior to swallow onset) Soft Palate Elevation: Trace column of contrast/air between soft palate and pharyngeal wall Laryngeal Elevation: Partial superior movement thyroid cart/partial apprx aryt- epig petiole Anterior Hyoid Excursion: Partial anterior movement Epiglottic Movement: Partial inversion Laryngeal Vestibule Closure at Height of Swallow: Incomplete; narrow column of air/contrast in laryngeal vestibule Pharyngeal Stripping Wave: Present - diminished Pharyngoesophageal Segment Opening: Parital distension and partial duration; parital obstruction of flow Tongue Base Retraction: Wide column of contrast between tongue base & post. pharyngeal wall Pharyngeal Residue: Majority of contrast within or on pharyngeal structures (~50% of pudding after the first) Esophageal Phase Esophageal Clearance: Esophageal retention Treatment Strategies Effects of treatment strategies attemped:: Effortful swallow = not effective. Chin tuck = not effective. Cough and re-swallow = somewhat effective. Double swallow = somewhat effective. Liquid wash (w/ honey thick) = somewhat effective. Diagnosis/Impression Diagnosis: Moderate-severe oropharyngeal dysphagia R13.12 Impression: The oral phase is primarily marked by... -Very poor labial seal w/ consistent anterior loss of thin and mildly thick liquids trials spilling beyond the pt's chin. -Premature posterior loss of thin liquids via tsp to the laryngeal vestibule prior to swallow onset resulting in aspiration during the swallow. -Slowed and disorganized tongue motion for A-P transport. -Did not assess cookie due to concerns for choking given slowed, disorganized lingual movements, premature posterior loss of various consistencies, and poor pharyngeal clearance of pudding. The pharyngeal phase is primarily marked by... -Moderate pharyngeal residue due to decreased tongue base retraction, pharyngeal stripping wave, and UES opening/duration, most notable w/ ~50% of pudding bolus remaining in the pharynx after the first swallows. Double swallows and liquid wash were both somewhat effective in clearing residues. -Decreased airway closure during the swallow due to decreased anterior hyoid excursion, laryngeal elevation, and inconsistent epiglottic inversion (at times full, at times partial). -SILENT aspiration of thin and mildly thick liquids via tsp. Aspiration of thin liquids via tsp w/ effortful swallow w/ weak reflexive throat clear. The esophageal phase is primarily marked by... -Mild retention of pudding in mid and lower esophagus. Recommendations Diet: Puree Textures and Honey-thick Liquids Comment: Meds crushed in applesauce Compensatory Strategies: Small Bites, Liquid by Teaspoon Only, Slow Rate, Multiple Swallows, Alternate bites/solids and sips/liquids, Sitting upright and Remain sitting upright for 30 minutes after PO intake Supervision: Total Feed Recommend Repeat Modified Barium Swallow: Yes Comment: Repeat MBSS in 1 week to re-assess swallow function to determine appropriateness for diet advancement. Need for Skilled Speech Therapy Services: Yes Comment: -Ongoing assessment of diet tolerance. INSTRUCTIONAL TECHNOLOGY COORDINATOR informed RNChar, that if patient appears to have s/s of aspiration w/ meals, please make NPO and INSTRUCTIONAL TECHNOLOGY COORDINATOR will re- assess. -Train pt in strategies to decrease risk for aspiration. -Implement oropharyngeal strengthening to improve bolus control, TB retraction, airway closure during the swallow, and pharyngeal stripping wave (lingual resistance, Tame[place], Nic, Effortful). Education Completed: 1. Described result of evaluation., 2. Pt understands evaluation & agrees with goals and treatment plan. and 7. Pt requires further education on strategies & risks. Status Active ST Patient: Active Contact Information [facility] Speech Therapy:: Nusrat Ansari M.A. CCC-INSTRUCTIONAL TECHNOLOGY COORDINATOR? Speech-Language Pathologist?? [facility] [address] [place] [address]? [email or web address]?? [phone]
[2024-05-16 17:38] LABS: Bedside Glucose 175 mg/dL (74-106)
[2024-05-16] MEDS: busPIRone 5 MG Tablet 20 MG PO (20:23)
[2024-05-16] MEDS: APIXABAN 5 MG TABLET PO (20:23)
[2024-05-16] MEDS: Doxazosin 4 MG Tablet 2 MG PO (20:23)
[2024-05-16] MEDS: Senna/Docusate Sodium 1 Tablet 2 TABLET PO (20:24)
[2024-05-16 23:35] LABS: Bedside Glucose 177 mg/dL (74-106)
[2024-05-17] VITALS (28 sets, daily range): BP systolic 130–164; BP diastolic 64–98; PULSE 61–103; RESP 17–28; TEMP 36.2–37.6; O2SAT 92–95; BMI 43.7
[2024-05-17] MEDS: Diltiazem 125 MG in Dextrose 5%-Water (100mL Bag) 100 ML 15 MG IV (02:19)
[2024-05-17] MEDS: Amiodarone 360 MG in Dextrose 5% Viaflo Bag 192.8 ML 16.7 MG CONT INF (03:47)
[2024-05-17] MEDS: Nystatin Powder 15gm Bottle 1 APPLIC TOPICAL ×3 (05:02→22:29)
[2024-05-17] MEDS: busPIRone 5 MG Tablet 20 MG PO ×3 (05:02→22:29)
[2024-05-17] MEDS: 0.9% Saline Lock 10 ML Syringe IV (05:04)
[2024-05-17] MEDS: Insulin Lispro 100 UNIT/ML INSULN.PEN SC ×3 (05:10→16:58)
[2024-05-17 05:38] LABS: Bedside Glucose 174 mg/dL (74-106)
[2024-05-17 05:41] LABS: Absolute Lymphocyte Count 1.04 X10^3/uL (0.83-4.51); Absolute Neutrophil Count 14.8 X10^3/uL (2.0-7.7); Basophil# 0.04 X10^3/uL; Basophil% 0.2 % (0-1); Eosinophil# 0.08 X10^3/uL; Eosinophils% 0.5 % (0-5); Hematocrit 43.3 % (37-47); Hemoglobin 13.3 g/dL (12.0-15.0); Lymphocyte # 1.04 X10^3/ul (0.83-4.51); Mean Corp Hgb Conc 30.7 g/dL (32-36); Mean Corpuscular Hgb 27.2 pg (27.0-32.0); Mean Corpuscular Volume 88.5 fL (81-99); Mean Platelet Vol. 12.8 fl (6.2-12.0); Monocyte# 0.93 X10^3/uL; Monocyte% 5.4 % (0-10); NRBC Flagged by Analyzer 0.1 % (0-5); Neutrophil # 14.82 X10^3/uL (2.7-7.7); Neutrophil % 85.9 % (47-70); Platelet Count 135 K/mm3 (150-450); RBC Distribution Width CV 16.3 % (11.6-14.6); RBC Distribution Width SD 48.1 fl (35.1-43.9); Red Blood Count 4.89 M/mm3 (4.2-5.4); White Blood Count 17.3 K/mm3 (4.4-11.0)
[2024-05-17 06:06] LABS: ALB/GLOB Ratio 0.6 RATIO (0.9-2.4); AST(SGOT) 32 U/L (15-37); Alanine Aminotransfer ALT/SGPT 89 U/L (13-56); Albumin, Serum 2.3 g/dL (3.2-5.0); Alkaline Phosphatase 156 U/L (45-117); Anion Gap 5 (5-15); BUN 36 mg/dL (7-18); BUN/Creat Ratio 31.9 RATIO (10-20); Calcium,Total 8.8 mg/dL (8.5-10.1); Chloride 106 mmol/L (98-107); Creatinine, Serum 1.13 mg/dL (0.55-1.02); EST Glomerular Filtration Rate 50 mL/min (>60); Est Glom Filt Rate - Afr Amer 60 mL/min (>60); Estimated Creatinine Clearance 48.93 ml/min; Globulin 3.6 g/dL (2.2-4.2); Glucose 164 mg/dL (74-106); Magnesium 1.5 mg/dL (1.6-2.6); Potassium 3.6 mmol/L (3.5-5.1); Protein, Total 5.9 g/dL (6.4-8.2); Sodium Level 143 mmol/L (136-145)
--- NOTE | 2024-05-17 07:43 | PN.CARD_ITS ---
Subjective Subjective Patient seen and evaluated. Appears to be doing better this morning. Objective Data Vital Signs: Vital Signs Temp Pulse Resp BP Pulse Ox O2 Del Method O2 Flow Rate 99 F 86 24 H 155/98 H 94 Room Air 2 05/17/24 06:00 05/17/24 07:00 05/17/24 07:00 05/17/24 07:00 05/17/24 07:00 05/17/24 07:00 05/15/24 08:00 FiO2 30 05/15/24 19:00 Oxygen Flow Rate (L/min) 2 Oxygen Delivery Method Room Air Weight: 237 lb 10.533 oz Body Mass Index (BMI) 43.7 Intake & Output: Intake and Output for Last 24 Hours 05/15/24 05/16/24 05/17/24 23:59 23:59 23:59 Intake Total 1272.25 / 1272.25 994.57 / 1009.57 120.00 / 120.00 Output Total 3450 / 3450 3550 / 3550 550 / 550 Balance -2177.75 / -2177.75 -2555.43 / -2540.43 -430.00 / -430.00 Lab / Micro Data 05/17/24 05:10 05/17/24 05:10 Labs: Laboratory Results - last 24 hr 05/16/24 12:43: POC Glucose 173 H 05/16/24 17:20: POC Glucose 175 H 05/16/24 23:11: POC Glucose 177 H 05/17/24 05:10: WBC 17.3 H, RBC 4.89, Hgb 13.3, Hct 43.3, MCV 88.5, MCH 27.2, M CHC 30.7 L, RDW Std Deviation 48.1 H, RDW Coeff of [place]abor 16.3 H, Plt Count 135 L, MPV 12.8 H, Immature Gran % (Auto) 2.000 H, Neut % (Auto) 85.9 H, Lymph % (Auto) 6.0 L, [place] % (Auto) 5.4, Eos % (Auto) 0.5, Baso % (Auto) 0.2, Absolute Neuts (auto) 14.8 H, Absolute Lymphs (auto) 1.04, Nucleated RBC % 0.1, Sodium 143, Potassium 3.6, Chloride 106, Carbon Dioxide 32.0, Anion Gap 5, BUN 36 H, C reatinine 1.13 H, Estim Creat Clear Calc 48.93, Est GFR (MDRD) Af Amer 60, Est GFR (MDRD) Non-Af 50 L, BUN/Creatinine Ratio 31.9 H, Glucose 164 H, Calcium 8.8, Phosphorus 5.0 H, Magnesium 1.5 L, Total Bilirubin 0.80, AST 32, ALT 89 H, A lkaline Phosphatase 156 H, Total Protein 5.9 L, Albumin 2.3 L, Globulin 3.6, A lbumin/Globulin Ratio 0.6 L, POC Glucose 174 H Rhythm Strip Rhythm Strip: A-fib Rate: 85 Cardiology Labs/Tests 05/17/24 05:10: WBC 17.3 H, RBC 4.89, Hgb 13.3, Hct 43.3, MCV 88.5, MCH 27.2, M CHC 30.7 L, Plt Count 135 L, MPV 12.8 H, Immature Gran % (Auto) 2.000 H, Neut % (Auto) 85.9 H, Lymph % (Auto) 6.0 L, [place] % (Auto) 5.4, Eos % (Auto) 0.5, Baso % (Auto) 0.2, Absolute Neuts (auto) 14.8 H, Nucleated RBC % 0.1, Sodium 143, Potassium 3.6, Chloride 106, Carbon Dioxide 32.0, Anion Gap 5, BUN 36 H, C reatinine 1.13 H, Est GFR (MDRD) Af Amer 60, Est GFR (MDRD) Non-Af 50 L, B UN/Creatinine Ratio 31.9 H, Glucose 164 H, Calcium 8.8, Phosphorus 5.0 H, M agnesium 1.5 L, Total Bilirubin 0.80 Rhythm: EKG: ECHO: Stress Test: Cardiac Cath: PCI: CT Surgery: Holter monitor: EPS: PPM: CXR: Chest CT Scan: Physical Exam Const alert, oriented x3 and no apparent distress General Appearance: cooperative HEENT hearing grossly normal bilaterally Head and Scalp: atraumatic Eyes EOMs intact bilaterally Neck General: normal visual inspection Chest inspection of chest normal and palpation of chest normal Resp normal respiratory effort Auscultation: clear to auscultation bilaterally Cardio S1 normal heart sound and S2 normal heart sound Jugular Venous Distention: JVD Rhythm: abnormal rhythm irregularly irregular GI normal to inspection, nondistended, normoactive bowel sounds Extremity normal capillary refill and no pedal edema Peripheral Pulses: Yes pulses 2+ throughout and femoral pulses present Skin no rashes or lesions noted Neuro oriented x3 and CN's II-XII intact bilaterally Psych Appearance: grossly normal and appropriate Assessment & Plan Assessment/Plan (1) Atrial fibrillation: QUALIFIERS: Atrial fibrillation type: paroxysmal Qualified Code(s): I48.0 - Paroxysmal atrial fibrillation PLAN: Patient's atrial fibrillation is better controlled. I would recommend that she wean off the intravenous diltiazem and discontinue the intravenous amiodarone. Will substitute oral amiodarone 200 mg twice daily Start metoprolol 100 mg twice daily May need to add diltiazem at some point or low-dose digoxin. Continue anticoagulation Will recommend discontinue aspirin
[2024-05-17] MEDS: Aspirin 81 MG TAB.CHEW PO (08:54)
[2024-05-17] MEDS: Metoprolol Tartrate 100 MG Tablet PO ×2 (08:55→22:29)
[2024-05-17] MEDS: Magnesium Sulfate 2 GM in Dextrose 5%-Water (100mL Bag) 100 ML IV (08:55)
[2024-05-17] MEDS: Furosemide 40 MG/4 ML Vial IV ×2 (08:55→17:57)
[2024-05-17] MEDS: Potassium Chloride Oral Soln 20 MEQ/15 ML UDC 40 MEQ PO (08:55)
[2024-05-17] MEDS: DULoxetine Hcl 60 MG Capsule PO (08:56)
[2024-05-17] MEDS: Amiodarone 200 MG Tablet PO ×2 (08:56→22:29)
[2024-05-17] MEDS: APIXABAN 5 MG TABLET PO ×2 (08:56→22:29)
[2024-05-17] MEDS: Senna/Docusate Sodium 1 Tablet 2 TABLET PO (08:56)
--- NOTE | 2024-05-17 09:22 | CASEMGMT ---
Addendum entered by Clara Guillen 05/17/24 09:46: Social Work SW spoke with Shalini in TCU. There are currently no beds available in TCU however pt is not medically ready this weekend. SW to follow up on referral to TCU on Monday. ELIA Rodriguez Original Note: Social Work Per physician, pt is improving and will be here through the weekend with possible dc early to mid next week. Referral sent to Shalini in TCU as this was families preferred SNF provider. [facility] will await determination of acceptance. ELIA Rodriguez
--- NOTE | 2024-05-17 09:58 | PCM.PN.ID ---
Physical Exam Narrative Feeling better, no fever, no dyspnea Const alert and no apparent distress General Appearance: cooperative Cardio regular rate; Negative for regular rhythm GI soft to palpation, non-tender and non-distended Skin no rashes or lesions noted ID ID: Route of nutrition/ use of supplements: [] Nutritional Intake: [] IV Site: [] Bruno Catheter: [] Assessment & Plan Assessment/Plan (1) Septic shock: PLAN: due to ecoli bacteremia from pyelo and L sided hydro. L ureteral stent placed by Dr. Wolfe 05/09/24. Off pressors. LFTs improved. Fever resolved. Sputum with yeast but minimal basilar changes on cxr, off vent and on room air. Received 3 days micafungin. Cont ceftriaxone. Wbc improved today. HR much improved. Will follow (2) History of ovarian cancer: (3) Hydronephrosis concurrent with and due to calculi of kidney and ureter: (4) Bacteremia due to Gram-negative bacteria:
[2024-05-17] MEDS: Digoxin 125 MCG Tablet PO (10:40)
[2024-05-17] MEDS: Magnesium Chloride 64 MG Delay Rel.Tablet 128 MG PO (10:40)
[2024-05-17] MEDS: Menthol/Lanolin/Calamine/Znox 113 GM Tube 1 APPLIC TOPICAL ×2 (10:41→22:30)
[2024-05-17] MEDS: Ceftriaxone 2 GM in 0.9% Normal Saline (50mL MB+) 50 ML IV (11:35)
--- NOTE | 2024-05-17 11:48 | PCM.PN.TICU ---
Objective Data Objective Data Vital Signs: Vital Signs Last response Temperature 37.2 C 05/17/24 06:00 Temperature Source Core 05/17/24 06:00 Pulse Rate 63 05/17/24 10:40 Pulse Strength Normal (2+) 05/14/24 08:01 Respiratory Rate 24 H 05/17/24 07:00 Respiratory Effort Normal, Non-Labored 05/17/24 08:00 Respiratory Depth Normal 05/17/24 08:00 Respiratory Pattern Tachypnea 05/17/24 08:00 Blood Pressure 155/98 H 05/17/24 07:00 Blood Pressure Mean 117 05/17/24 07:00 Blood Pressure Source Monitor 05/17/24 07:00 Blood Pressure Position Semi-Fowlers 05/16/24 18:00 Blood Pressure Location Left Forearm 05/16/24 18:00 Pulse Ox 95 05/17/24 11:39 Oxygen Delivery Method Room Air 05/17/24 11:39 Oxygen Flow Rate (L/min) 2 05/15/24 08:00 Fraction of Inspired Oxygen (FIO2) 30 05/15/24 19:00 CLA-BSI maintained Yes 05/14/24 12:00 I&O: I&O Last 24 Hours 05/16/24 05/16/24 05/17/24 11:59 23:59 11:59 Intake Total 513.32 / 1009.57 481.25 / 1009.57 120.00 / 120.00 Output Total 1650 / 3550 1900 / 3550 550 / 550 Balance -1136.68 / -2540.43 -1418.75 / -2540.43 -430.00 / -430.00 I&O: Total Stay 05/08/24 12:41 thru 05/17/24 09:17 Intake Total 37668.78 Output Total 82205 Balance 8554.78 Current Meds Ordered / Administered: Current meds ordered / Administered Generic Name Dose Route Start Last Admin Trade Name Freq PRN Reason Stop Dose Admin Acetaminophen 650 mg 05/16/24 04:39 Acetaminophen 325 Mg Tablet PO Q6H PRN PRN Pain 1-10 Or Fever >100.7 Albuterol/Ipratropium 3 ml 05/08/24 18:57 05/15/24 19:23 Ipratropium/Albuterol Sulfate 3 Ml Ampul.Neb INHALATION 3 ml Q4HWA.RT PRN Administration SHORTNESS OF BREATH Amiodarone HCl 200 mg 05/17/24 10:00 05/17/24 08:56 Amiodarone 200 Mg Tablet PO 200 mg BID EM Administration Apixaban 5 mg 05/16/24 22:00 05/17/24 08:56 Apixaban 5 Mg Tablet PO 5 mg BID EM Administration Aspirin 81 mg 05/16/24 08:00 05/17/24 08:54 Aspirin 81 Mg Tab.Chew PO 81 mg BREAKFAST EM Administration Buspirone HCl 20 mg 05/16/24 06:00 05/17/24 05:02 Buspirone 5 Mg Tablet PO 20 mg TID EM Administration Calamine/Phenol 1 applic 05/08/24 22:00 05/17/24 10:41 Menthol/Lanolin/Calamine/Znox 113 Gm Tube TOPICAL 1 applic BID EM Administration Protocol Digoxin 125 mcg 05/17/24 10:00 05/17/24 10:40 Digoxin 125 Mcg Tablet PO 125 mcg DAILY EM Administration Doxazosin Mesylate 2 mg 05/16/24 22:00 05/16/24 20:23 Doxazosin 4 Mg Tablet PO 2 mg QHS EM Administration Duloxetine HCl 60 mg 05/09/24 10:00 05/17/24 08:56 Duloxetine Hcl 60 Mg Capsule PO 60 mg DAILY EM Administration Ergocalciferol 1.25 mg 05/10/24 10:00 05/17/24 08:54 Ergocalciferol 1.25 Mg (50, 000 Unit) Capsule PO Not Given Fr@1000 EM Glucagon 1 mg 05/08/24 18:59 Glucagon 1 Mg/Ml Syringe IM X1 PRN Hypoglycemia Protocol Heparin Sodium (Beef Lung) 50 units 05/08/24 17:49 Heparin Pf Lock 10 Units/Ml 50 Units/5 Ml Syringe IV UD PRN Port-a-Cath (VAD)Heparin Flush Dextrose 250 mls @ 0 mls/hr 05/08/24 18:59 Dextrose 10%-Water IV .Q0M PRN HYPOGLYCEMIA Protocol As Directed Diltiazem HCl 125 mg/ Dextrose 125 mls @ 5 mls/hr 05/14/24 12:35 05/17/24 07:00 IV 15 mg/hr .Q25H EM 15 mls/hr Titration Protocol 5 MG/HR Ceftriaxone Sodium 2 gm/ 50 mls @ 100 mls/hr 05/15/24 13:30 05/17/24 11:35 Sodium Chloride IV 100 mls/hr Q24 EM Administration Insulin Glargine 20 unit 05/14/24 10:00 05/14/24 08:29 Insulin Glargine-Yfgn 100 Unit/Ml Pen SC 20 unit DAILY EM Administration Insulin Human Lispro 0 unit 05/17/24 11:00 05/17/24 11:38 Insulin Lispro 100 Unit/Ml Insuln.Pen SC 2 units ACHS [facility] Administration Protocol Magnesium Chloride 128 mg 05/09/24 10:00 05/17/24 10:40 Magnesium Chloride 64 Mg Delay Rel.Tablet PO 128 mg DAILY [facility] Administration Metoprolol Tartrate 100 mg 05/17/24 08:30 05/17/24 08:55 Metoprolol Tartrate 100 Mg Tablet PO 100 mg BID [facility] Administration Protocol Multivitamins 1 tablet 05/16/24 08:00 05/17/24 08:52 Multivitamins,Therapeutic [facility]t [facility] Nystatin 1 applic 05/08/24 22:00 05/17/24 05:02 Nystatin Powder 15gm Bottle TOPICAL 1 applic TID [facility] Administration Protocol Prochlorperazine Edisylate 5 mg 05/08/24 18:38 Prochlorperazine 10 Mg/2 Ml Vial IV Q4H PRN PRN Breakthrough nausea/vomiting Senna/Docusate Sodium 2 tablet 05/16/24 10:00 05/17/24 08:56 Senna/Docusate Sodium 1 Tablet PO 2 tablet BID [facility] Administration Sodium Chloride 10 - 40 ml 05/08/24 17:49 05/17/24 05:04 0.9% Saline Lock 10 Ml Syringe IV 20 ml UD PRN Administration Port-a-Cath (VAD) Flush Tolterodine Tartrate 2 mg 05/09/24 10:00 05/17/24 08:53 Tolterodine Tartrate 2 Mg Cap.Sa PO Not Given DAILY [facility] Lab / Micro Data 05/17/24 05:10 05/17/24 05:10 Labs: Laboratory Results - last 24 hr 05/16/24 12:43: POC Glucose 173 H 05/16/24 17:20: POC Glucose 175 H 05/16/24 23:11: POC Glucose 177 H 05/17/24 05:10: WBC 17.3 H, RBC 4.89, Hgb 13.3, Hct 43.3, MCV 88.5, MCH 27.2, MCHC 30.7 L, RDW Std Deviation 48.1 H, RDW Coeff of [place] 16.3 H, Plt Count 135 L, MPV 12.8 H, Immature Gran % (Auto) 2.000 H, Neut % (Auto) 85.9 H, Lymph % (Auto) 6.0 L, [place] % (Auto) 5.4, Eos % (Auto) 0.5, Baso % (Auto) 0.2, Absolute Neuts (auto) 14.8 H, Absolute Lymphs (auto) 1.04, Nucleated RBC % 0.1, Sodium 143, Potassium 3.6, Chloride 106, Carbon Dioxide 32.0, Anion Gap 5, BUN 36 H, Creatinine 1.13 H, Estim Creat Clear Calc 48.93, Est GFR (MDRD) Af Amer 60, Est GFR (MDRD) Non-Af 50 L, BUN/Creatinine Ratio 31.9 H, Glucose 164 H, Calcium 8.8, Phosphorus 5.0 H, Magnesium 1.5 L, Total Bilirubin 0.80, AST 32, ALT 89 H, Alkaline Phosphatase 156 H, Total Protein 5.9 L, Albumin 2.3 L, Globulin 3.6, Albumin/Globulin Ratio 0.6 L, POC Glucose 174 H Rhythm Strip Rhythm Strip: A-fib Rate: 85 Assessment and Plan . Assessment and plan: Subjective: Pt seen and examined. Breathing O2 via N/C comfortably. HR much better controlled - receiving amiodarone, cardizem, digoxin. She is globally weak. I/O (-). Ongoing therapies We are available as needed. PE: General: chronically ill appearing morbidly obese female HEENT: anicteric Sclera, nl nose; supple neck, no masses Cardiovascular: irreg irreg; +S1/S2; No rubs, gallops; no displaced PMI Respiratory: diminished; no crackles, wheezes, or rhonchi Abdominal: Non-tender; Non distended; hypoBS x 4; No Hepatosplenomegaly Extremities: Warm, well perfused; No clubbing, cyanosis; capillary refill < 2 sec Neurological: NF A/P: #Acute hypercapnic respiratory failure: extubated 05/14/24 #Septic shock: resolved #Leukocytosis: improving #Pyelonephritis: see above; monitor temp curve/WBC/band %; pansensitive E. 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
[2024-05-17 11:59] LABS: Bedside Glucose 179 mg/dL (74-106)
[2024-05-17 17:06] LABS: Bedside Glucose 163 mg/dL (74-106)
--- NOTE | 2024-05-17 17:31 | PN.HOSP_ITS ---
Reason for Visit Reason for Visit: Flank pain Subjective Subjective Patient has no complaints. She states she is feeling okay. No specific complaints. States she does feel weak. We did discuss again plan will be to discharge to rehab and anticipate that will be probably early next week. Objective Data Objective Data Vital Signs: Vital Signs Temp Pulse Resp BP Pulse Ox O2 Del Method O2 Flow Rate 99.6 F H 81 23 H 156/72 H 94 Room Air 2 05/17/24 14:00 05/17/24 14:00 05/17/24 14:00 05/17/24 14:00 05/17/24 14:05 05/17/24 14:00 05/15/24 08:00 FiO2 30 05/15/24 19:00 Oxygen Flow Rate (L/min) 2 Oxygen Delivery Method Room Air Weight: 107.8 kg Body Mass Index (BMI) 43.7 Intake & Output: Intake and Output for Last 24 Hours 05/15/24 05/16/24 05/17/24 23:59 23:59 23:59 Intake Total 1272.25 / 1272.25 994.57 / 1009.57 413.22 / 413.22 Output Total 3450 / 3450 3550 / 3550 1750 / 1750 Balance -2177.75 / -2177.75 -2555.43 / -2540.43 -1336.78 / -1336.78 Lab / Micro Data 05/17/24 05:10 05/17/24 05:10 Labs: Laboratory Results - last 24 hr 05/16/24 17:20: POC Glucose 175 H 05/16/24 23:11: POC Glucose 177 H 05/17/24 05:10: WBC 17.3 H, RBC 4.89, Hgb 13.3, Hct 43.3, MCV 88.5, MCH 27.2, M CHC 30.7 L, RDW Std Deviation 48.1 H, RDW Coeff of Nabor 16.3 H, Plt Count 135 L, MPV 12.8 H, Immature Gran % (Auto) 2.000 H, Neut % (Auto) 85.9 H, Lymph % (Auto) 6.0 L, [place] % (Auto) 5.4, Eos % (Auto) 0.5, Baso % (Auto) 0.2, Absolute Neuts (auto) 14.8 H, Absolute Lymphs (auto) 1.04, Nucleated RBC % 0.1, Sodium 143, Potassium 3.6, Chloride 106, Carbon Dioxide 32.0, Anion Gap 5, BUN 36 H, C reatinine 1.13 H, Estim Creat Clear Calc 48.93, Est GFR (MDRD) Af Amer 60, Est GFR (MDRD) Non-Af 50 L, BUN/Creatinine Ratio 31.9 H, Glucose 164 H, Calcium 8.8, Phosphorus 5.0 H, Magnesium 1.5 L, Total Bilirubin 0.80, AST 32, ALT 89 H, A lkaline Phosphatase 156 H, Total Protein 5.9 L, Albumin 2.3 L, Globulin 3.6, A lbumin/Globulin Ratio 0.6 L, POC Glucose 174 H 05/17/24 11:26: POC Glucose 179 H 05/17/24 16:49: POC Glucose 163 H Micro: Microbiology 05/12/24 13:00 Blood Culture (Wb) - Left Wrist Blood Culture - Final No growth in 5 days. 05/12/24 12:50 Blood Culture (Wb) - Port Blood Culture - Final No growth in 5 days. 05/12/24 13:00 Sputum, Induced/Lukens Gram Stain - Final 05/12/24 13:00 Sputum, Induced/Lukens Respiratory Culture - Final Presumptive C albicans 05/08/24 20:05 Blood Culture (Wb) - Port Blood Culture - Final No growth in 5 days. 05/08/24 22:40 Blood Culture (Wb) - Line Draw Blood Culture - Final No growth in 5 days. 05/09/24 02:02 Sputum, Induced/Lukens Gram Stain - Final 05/09/24 02:02 Sputum, Induced/Lukens Respiratory Culture - Final Presumptive C albicans 05/09/24 13:00 Urine Catheter - Bruno Urine Culture - Final Culture exhibits no growth. 05/08/24 13:50 Urine, Clean Catch Urine Culture - Final Presumptive E. coli 05/08/24 13:25 Blood Culture (Wb) - Anticubital Left Blood Culture - Final Escherichia coli 05/09/24 01:00 Stool Enteric Bacteriology - Final 05/09/24 01:00 Stool Clostridioides difficile (PCR) - Final 05/08/24 13:25 Mucosa - Nose SARS-CoV-2, Influenza & RSV (PCR) - Final Rhythm Strip Rhythm Strip: A-fib Rate: 85 Physical Exam Const alert, oriented x3, no apparent distress and well nourished; Negative for average body habitus or healthy appearing Constitutional Narrative: Morbidly obese, older, white female, sitting up in bed, appears comfortable, nontoxic Orientation / Consciousness: lethargic HEENT normocephalic, head/scalp atraumatic and moist oral mucous membranes HEENT Narrative: Mallampati 3, no thrush Resp normal respiratory effort, no retractions, no use of accessory muscles and clear to auscultation bilaterally Auscultation: Negative for crackles, rhonchi or wheezes Cardio regular rate, S1 normal heart sound, S2 normal heart sound, no murmurs, no rub, no gallops and no clicks GI normal to inspection, nondistended, normoactive bowel sounds, soft to palpation and non-tender GI Narrative: protuberant abdomen Extremity Extremity Narrative: Lower extremity pitting edema is trace, hand pitting edema bilaterally is 1+ still, no cyanosis or clubbing Neuro oriented x3, moves all extremities and no focal motor deficits Neuro Narrative: Speech does seem to be getting a bit stronger, but remains with severe generalized weakness Speech: Negative for speech normal Psych Psych Narrative: Affect remains flat but appropriate, interacts well, very pleasant Assessment & Plan Assessment/Plan (1) Elevated LFTs: (2) Bacteremia due to Gram-negative bacteria: (3) Elevated troponin: (4) Septic shock: PLAN: Plan Septic shock secondary to E. coli bacteremia from UTI with pyelonephritis and left-sided hydronephrosis -Shock has resolved -Left ureteral stent placed by Dr. Aiden jorgensen on 05/09/2024 -Follow-up cultures are unremarkable -Continue ceftriaxone with duration per infectious disease--> length of treatment is still not been clarified -Remove Bruno -ID and critical care medicine following-appreciate input Acute hypoxic respiratory failure secondary to the above -Extubated on 05/15/2024 -Speech therapy to evaluate with modified barium swallow pending for tomorrow -Repeat Lasix IV push twice daily today Dysphagia -Continue speech therapy -Modified diet per recommendations -Patient is currently a total feed with liquid by teaspoon's and alternate bites and sips with meds crushed in applesauce Leukocytosis -Continues to downtrend Thrombocytopenia -Continues to uptrend Hypomagnesemia -IV bolus given -will give some potassium as well with Lasix dosing -Repeat lab in a.m. A-fib with RVR -Remains in A-fib but now rate controlled -Transition of amiodarone to oral and start p.o. metoprolol per cardiology recommendations -Continue apixaban ROSANA -Baseline serum creatinine appears to run between 0.8 and 1.1 -Peak serum creatinine during hospitalization is 2.66 -1.13 today -Repeat BMP in a.m. 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 -Restart Lantus at 10 units (had been on 20 units when she was on tube feed) -Fasting blood sugar this morning was 164 Ovarian cancer -Avastin is on hold due to the above Morbid obesity -BMI 43.5 -Complicates treatment, prognosis, outcomes -Recommend weight loss DVT/GI prophylaxis -Continue Eliquis -Discontinue IV Protonix as patient is now on p.o. diet CODE STATUS -Full code Charges/Coding Visit Charges Inpatient E&M: 47471 Subs Hosp L2
[2024-05-17] MEDS: Insulin Glargine-YFGN 100 UNIT/ML Pen 10 UNIT SC (22:28)
[2024-05-17] MEDS: Doxazosin 4 MG Tablet 2 MG PO (22:29)
[2024-05-17 23:07] LABS: Bedside Glucose 148 mg/dL (74-106)
[2024-05-18] VITALS (9 sets, daily range): BP systolic 147–152; BP diastolic 74–101; PULSE 86–112; RESP 15–20; TEMP 36.1–36.2; O2SAT 95–97; BMI 43.1
[2024-05-18 04:08] LABS: Hematocrit 45.1 % (37-47); Hemoglobin 14.2 g/dL (12.0-15.0); Mean Corp Hgb Conc 31.5 g/dL (32-36); Mean Corpuscular Hgb 27.8 pg (27.0-32.0); Mean Corpuscular Volume 88.3 fL (81-99); Mean Platelet Vol. 12.5 fl (6.2-12.0); Platelet Count 139 K/mm3 (150-450); RBC Distribution Width CV 16.9 % (11.6-14.6); RBC Distribution Width SD 47.4 fl (35.1-43.9); Red Blood Count 5.11 M/mm3 (4.2-5.4); White Blood Count 14.8 K/mm3 (4.4-11.0)
[2024-05-18 04:35] LABS: Anion Gap 6 (5-15); BUN 36 mg/dL (7-18); Calcium,Total 8.9 mg/dL (8.5-10.1); Chloride 106 mmol/L (98-107); Creatinine, Serum 1.16 mg/dL (0.55-1.02); EST Glomerular Filtration Rate 48 mL/min (>60); Est Glom Filt Rate - Afr Amer 58 mL/min (>60); Estimated Creatinine Clearance 47.67 ml/min; Glucose 161 mg/dL (74-106); Potassium 3.8 mmol/L (3.5-5.1); Sodium Level 141 mmol/L (136-145)
[2024-05-18] MEDS: busPIRone 5 MG Tablet 20 MG PO ×3 (06:08→21:35)
[2024-05-18] MEDS: Nystatin Powder 15gm Bottle 1 APPLIC TOPICAL ×3 (06:08→21:40)
[2024-05-18] MEDS: Insulin Lispro 100 UNIT/ML INSULN.PEN SC ×4 (06:11→21:30)
[2024-05-18] MEDS: Amiodarone 200 MG Tablet PO ×2 (10:47→21:34)
[2024-05-18] MEDS: Multivitamins,Therapeutic Tablet 1 TABLET PO (10:47)
[2024-05-18] MEDS: Tolterodine Tartrate 2 MG CAP.SA PO (10:47)
[2024-05-18] MEDS: Magnesium Chloride 64 MG Delay Rel.Tablet 128 MG PO (10:47)
[2024-05-18] MEDS: APIXABAN 5 MG TABLET PO ×2 (10:47→21:32)
[2024-05-18] MEDS: Senna/Docusate Sodium 1 Tablet 2 TABLET PO ×2 (10:47→21:33)
[2024-05-18] MEDS: Aspirin 81 MG TAB.CHEW PO (10:48)
[2024-05-18] MEDS: DULoxetine Hcl 60 MG Capsule PO (10:48)
[2024-05-18] MEDS: 0.9% Saline Lock 10 ML Syringe IV ×2 (10:48→17:04)
[2024-05-18] MEDS: Insulin Glargine-YFGN 100 UNIT/ML Pen 14 UNIT SC (10:51)
[2024-05-18] MEDS: Menthol/Lanolin/Calamine/Znox 113 GM Tube 1 APPLIC TOPICAL ×2 (10:51→21:40)
[2024-05-18] MEDS: Ceftriaxone 2 GM in 0.9% Normal Saline (50mL MB+) 50 ML IV (10:55)
[2024-05-18] MEDS: Digoxin 125 MCG Tablet PO (10:55)
[2024-05-18] MEDS: Metoprolol Tartrate 100 MG Tablet PO ×2 (10:55→21:33)
[2024-05-18] MEDS: Furosemide 40 MG/4 ML Vial IV ×2 (10:56→17:04)
[2024-05-18] MEDS: Ezetimibe 10 MG Tablet PO (10:57)
[2024-05-18] MEDS: Lisinopril 20 MG Tablet PO ×2 (10:57→21:32)
--- NOTE | 2024-05-18 11:37 | PN.HOSP_ITS ---
Reason for Visit Reason for Visit: Flank pain Subjective Subjective Patient has no complaints today. Family at the bedside asking if we can write a letter to give to the patient's career placement specialist as she has a trust fund and they are unable to access her bank account to pay bills despite her daughter being the DPOA for healthcare. I discussed with the daughter we would have to discuss this with legal here to make sure that everything was kosher and if so we should be able to do so. Patient states her appetite is improving. States she feels her hand swelling is much better and I do agree it looks much better. Objective Data Objective Data Vital Signs: Vital Signs Temp Pulse Resp BP Pulse Ox O2 Del Method O2 Flow Rate 97.0 F L 94 15 151/74 H 97 Room Air 2 05/18/24 04:40 05/18/24 10:55 05/18/24 04:40 05/18/24 04:40 05/18/24 04:40 05/18/24 04:40 05/15/24 08:00 FiO2 30 05/15/24 19:00 Oxygen Flow Rate (L/min) 2 Oxygen Delivery Method Room Air Weight: 106.9 kg Body Mass Index (BMI) 43.1 Intake & Output: Intake and Output for Last 24 Hours 05/16/24 05/17/24 05/18/24 23:59 23:59 23:59 Intake Total 994.57 / 1009.57 413.22 / 413.22 Output Total 3550 / 3550 2350 / 2350 Balance -2555.43 / -2540.43 -1936.78 / -1936.78 Lab / Micro Data 05/18/24 03:48 05/18/24 03:48 Labs: Laboratory Results - last 24 hr 05/17/24 11:26: POC Glucose 179 H 05/17/24 16:49: POC Glucose 163 H 05/17/24 22:23: POC Glucose 148 H 05/18/24 03:48: WBC 14.8 H, RBC 5.11, Hgb 14.2, Hct 45.1, MCV 88.3, MCH 27.8, M CHC 31.5 L, RDW Std Deviation 47.4 H, RDW Coeff of Nabor 16.9 H, Plt Count 139 L, MPV 12.5 H, Sodium 141, Potassium 3.8, Chloride 106, Carbon Dioxide 29.0, Anion Gap 6, BUN 36 H, Creatinine 1.16 H, Estim Creat Clear Calc 47.67, Est GFR (MDRD) Af Amer 58 L, Est GFR (MDRD) Non-Af 48 L, BUN/Creatinine Ratio 31.0 H, Glucose 161 H, Calcium 8.9, Magnesium 2.0 Micro: Microbiology 05/12/24 13:00 Blood Culture (Wb) - Left Wrist Blood Culture - Final No growth in 5 days. 05/12/24 12:50 Blood Culture (Wb) - Port Blood Culture - Final No growth in 5 days. 05/12/24 13:00 Sputum, Induced/Lukens Gram Stain - Final 05/12/24 13:00 Sputum, Induced/Lukens Respiratory Culture - Final Presumptive C albicans 05/08/24 20:05 Blood Culture (Wb) - Port Blood Culture - Final No growth in 5 days. 05/08/24 22:40 Blood Culture (Wb) - Line Draw Blood Culture - Final No growth in 5 days. 05/09/24 02:02 Sputum, Induced/Lukens Gram Stain - Final 05/09/24 02:02 Sputum, Induced/Lukens Respiratory Culture - Final Presumptive C albicans 05/09/24 13:00 Urine Catheter - Bruno Urine Culture - Final Culture exhibits no growth. 05/08/24 13:50 Urine, Clean Catch Urine Culture - Final Presumptive E. coli 05/08/24 13:25 Blood Culture (Wb) - Anticubital Left Blood Culture - Final Escherichia coli 05/09/24 01:00 Stool Enteric Bacteriology - Final 05/09/24 01:00 Stool Clostridioides difficile (PCR) - Final 05/08/24 13:25 Mucosa - Nose SARS-CoV-2, Influenza & RSV (PCR) - Final Rhythm Strip Rhythm Strip: A-fib Rate: 85 Physical Exam Const alert, oriented x3, no apparent distress and well nourished; Negative for average body habitus or healthy appearing Constitutional Narrative: Morbidly obese, older, white female, sitting up in bed, family at bedside and her daughter is feeding her. She seems to be doing quite well with this, appears comfortable, nontoxic HEENT normocephalic, head/scalp atraumatic and moist oral mucous membranes HEENT Narrative: Mallampati 3, no thrush Resp normal respiratory effort, no retractions, no use of accessory muscles and clear to auscultation bilaterally Auscultation: Negative for crackles, rhonchi or wheezes Cardio regular rate, S1 normal heart sound, S2 normal heart sound, no murmurs, no rub, no gallops and no clicks Cardio Narrative: Irregularly irregular rhythm but remains rate controlled GI normal to inspection, nondistended, normoactive bowel sounds, soft to palpation, non-tender and non-distended GI Narrative: protuberant abdomen Extremity normal capillary refill, no clubbing, cyanosis or edema and no calf tenderness Extremity Narrative: Trace bilateral lower extremity and hand edema, no cyanosis or clubbing, pedal pulses are 2+ Neuro oriented x3, moves all extremities and no focal motor deficits Neuro Narrative: Speech seems to be almost normalized and vocal quality is much improved, patient still with marked generalized weakness Speech: Negative for speech normal Psych affect normal Psych Narrative: Very pleasant, interacts appropriately, affect is much improved Assessment & Plan Assessment/Plan (1) Elevated LFTs: (2) Bacteremia due to Gram-negative bacteria: (3) Elevated troponin: (4) Septic shock: PLAN: Plan Septic shock secondary to E. coli bacteremia from UTI with pyelonephritis and left-sided hydronephrosis -Shock has resolved -Left ureteral stent placed by Dr. Wolfe no on 05/09/2024 -Continue ceftriaxone with duration per infectious disease--> length of treatment is still not been clarified -Antibiotics may be completed prior to discharge -ID and critical care medicine following-appreciate input -Outpatient follow-up with Dr. Wolfe per his recommendations Acute hypoxic respiratory failure secondary to the above -Extubated on 05/15/2024 -Speech therapy to evaluate with modified barium swallow pending for tomorrow -Continue Lasix IV twice daily and reevaluate for further need -Edema is much improved Dysphagia -Continue speech therapy -Modified diet per recommendations -Patient is currently a total feed on a pur?e honey thick liquid diet with liquid by teaspoon's and alternate bites and sips with meds crushed in applesauce Leukocytosis -Now almost normalized Thrombocytopenia -Almost normalized Hypomagnesemia -Resolved A-fib with RVR -Remains in A-fib but now rate controlled -Continue p.o. amiodarone -Continue p.o. metoprolol -Continue p.o. dig -Continue apixaban -Cardiology assisting-appreciate input ROSANA on CKD stage IIIa -Baseline serum creatinine appears to run between 0.8 and 1.2 -Peak serum creatinine during hospitalization is 2.66 -1.16 today and appears to have stabilized -Repeat BMP in a.m. Elevated troponin -Likely from demand ischemia -NSTEMI ruled out -Continue current management -Will need outpatient cardiology follow-up after discharge Essential hypertension -Restart home lisinopril -Continue metoprolol History of COPD -Patient lifelong non-smoker and felt to be secondary to industrial exposure while working at a [employer] If and continue nebulizers DM-2 -Continue SSI -patient remains n.p.o. -Increase Lantus to 14 units (had been on 20 units when she was on tube feed) -Fasting blood sugar this morning was 161 Ovarian cancer -Avastin is on hold due to the above Morbid obesity -BMI 43.1 -Complicates treatment, prognosis, outcomes -Recommend weight loss DVT/GI prophylaxis -Continue Eliquis CODE STATUS -Full code Charges/Coding Visit Charges Inpatient E&M: 66071 Subs Hosp L2
[2024-05-18 12:05] LABS: Bedside Glucose 150 mg/dL (74-106)
[2024-05-18 12:36] LABS: Bedside Glucose 154 mg/dL (74-106)
[2024-05-18] MEDS: Albuterol 2.5 MG/3 ML VIAL.NEB. INHALATION ×2 (13:47→20:04)
--- NOTE | 2024-05-18 13:56 | CASEMGMT ---
Social Work Referral made to TCU via email. SW to follow up on Monday. TRU Rivera
[2024-05-18 17:41] LABS: Bedside Glucose 153 mg/dL (74-106)
[2024-05-18] MEDS: Budesonide Respules 0.5 MG/2 ML AMPUL.NEB. INHALATION (20:04)
[2024-05-18] MEDS: Fenofibrate 145 MG Tablet PO (21:31)
[2024-05-18] MEDS: Doxazosin 4 MG Tablet 2 MG PO (21:34)
[2024-05-18 23:25] LABS: Bedside Glucose 152 mg/dL (74-106)
[2024-05-19] VITALS (9 sets, daily range): BP systolic 135–150; BP diastolic 89–102; PULSE 85–118; RESP 16–18; TEMP 36.1–36.3; O2SAT 94–97; BMI 41.4
[2024-05-19] MEDS: Nystatin Powder 15gm Bottle 1 APPLIC TOPICAL ×3 (06:15→23:47)
[2024-05-19] MEDS: busPIRone 5 MG Tablet 20 MG PO ×3 (06:15→23:41)
[2024-05-19 06:49] LABS: Bedside Glucose 143 mg/dL (74-106)
[2024-05-19 06:50] LABS: Absolute Lymphocyte Count 0.92 X10^3/uL (0.83-4.51); Absolute Neutrophil Count 13.1 X10^3/uL (2.0-7.7); Basophil# 0.08 X10^3/uL; Basophil% 0.5 % (0-1); Eosinophil# 0.04 X10^3/uL; Eosinophils% 0.3 % (0-5); Hemoglobin 14.6 g/dL (12.0-15.0); Lymphocyte # 0.92 X10^3/ul (0.83-4.51); Lymphocyte % 6.1 % (19-41); Mean Corp Hgb Conc 31.7 g/dL (32-36); Mean Corpuscular Volume 88.3 fL (81-99); Mean Platelet Vol. 12.6 fl (6.2-12.0); Monocyte# 0.92 X10^3/uL; Monocyte% 6.1 % (0-10); NRBC Flagged by Analyzer 0 % (0-5); Neutrophil # 13.06 X10^3/uL (2.7-7.7); Neutrophil % 85.9 % (47-70); Platelet Count 146 K/mm3 (150-450); RBC Distribution Width CV 17.3 % (11.6-14.6); RBC Distribution Width SD 48.2 fl (35.1-43.9); Red Blood Count 5.21 M/mm3 (4.2-5.4); White Blood Count 15.2 K/mm3 (4.4-11.0)
[2024-05-19 07:11] LABS: ALB/GLOB Ratio 0.6 RATIO (0.9-2.4); AST(SGOT) 32 U/L (15-37); Alanine Aminotransfer ALT/SGPT 59 U/L (13-56); Albumin, Serum 2.5 g/dL (3.2-5.0); Alkaline Phosphatase 139 U/L (45-117); Anion Gap 8 (5-15); BUN 42 mg/dL (7-18); BUN/Creat Ratio 34.7 RATIO (10-20); Calcium,Total 9.1 mg/dL (8.5-10.1); Chloride 105 mmol/L (98-107); Creatinine, Serum 1.21 mg/dL (0.55-1.02); EST Glomerular Filtration Rate 46 mL/min (>60); Est Glom Filt Rate - Afr Amer 56 mL/min (>60); Estimated Creatinine Clearance 44.42 ml/min; Glucose 144 mg/dL (74-106); Magnesium 1.8 mg/dL (1.6-2.6); Phosphorus 5.3 mg/dL (2.5-4.9); Potassium 3.4 mmol/L (3.5-5.1); Protein, Total 6.5 g/dL (6.4-8.2); Sodium Level 141 mmol/L (136-145)
[2024-05-19] MEDS: Budesonide Respules 0.5 MG/2 ML AMPUL.NEB. INHALATION (07:35)
[2024-05-19] MEDS: Albuterol 2.5 MG/3 ML VIAL.NEB. INHALATION ×2 (07:35→13:47)
[2024-05-19] MEDS: Digoxin 125 MCG Tablet PO (09:53)
[2024-05-19] MEDS: Aspirin 81 MG TAB.CHEW PO (09:54)
[2024-05-19] MEDS: Senna/Docusate Sodium 1 Tablet 2 TABLET PO (09:54)
[2024-05-19] MEDS: DULoxetine Hcl 60 MG Capsule PO (09:54)
[2024-05-19] MEDS: Ezetimibe 10 MG Tablet PO (09:54)
[2024-05-19] MEDS: Amiodarone 200 MG Tablet PO ×2 (09:54→23:34)
[2024-05-19] MEDS: Metoprolol Tartrate 100 MG Tablet PO ×2 (09:55→23:35)
[2024-05-19] MEDS: Lisinopril 20 MG Tablet PO ×2 (09:55→23:40)
[2024-05-19] MEDS: Multivitamins,Therapeutic Tablet 1 TABLET PO (09:56)
[2024-05-19] MEDS: Magnesium Chloride 64 MG Delay Rel.Tablet 128 MG PO (09:56)
[2024-05-19] MEDS: APIXABAN 5 MG TABLET PO ×2 (09:57→23:34)
[2024-05-19] MEDS: Tolterodine Tartrate 2 MG CAP.SA PO (09:57)
[2024-05-19] MEDS: Menthol/Lanolin/Calamine/Znox 113 GM Tube 1 APPLIC TOPICAL ×2 (09:58→23:48)
[2024-05-19] MEDS: Insulin Glargine-YFGN 100 UNIT/ML Pen 14 UNIT SC (10:29)
[2024-05-19] MEDS: amLODIPine 5 MG Tablet PO (10:29)
[2024-05-19] MEDS: Ceftriaxone 2 GM in 0.9% Normal Saline (50mL MB+) 50 ML IV (10:32)
--- NOTE | 2024-05-19 10:42 | PN.HOSP_ITS ---
Reason for Visit Reason for Visit: Flank pain Subjective Subjective Patient only complains that she is thirsty. Nursing at bedside getting ready to help her with her breakfast. Has no pain complaints. States she was not out of bed yesterday. So I have asked nursing to work on getting her up to a chair and work on sitting up. We did discuss that she was going to need a lot of rehab but she is going to be incredibly weak. Also discussed the importance of therapy. Objective Data Objective Data Vital Signs: Vital Signs Temp Pulse Resp BP Pulse Ox O2 Del Method O2 Flow Rate 97.0 F L 108 H 16 148/90 H 97 Room Air 2 05/19/24 09:51 05/19/24 09:55 05/19/24 09:51 05/19/24 09:51 05/19/24 09:51 05/19/24 09:51 05/15/24 08:00 FiO2 30 05/15/24 19:00 Oxygen Flow Rate (L/min) 2 Oxygen Delivery Method Room Air Weight: 102.7 kg Body Mass Index (BMI) 41.4 Intake & Output: Intake and Output for Last 24 Hours 05/17/24 05/18/24 05/19/24 23:59 23:59 23:59 Intake Total 413.22 / 413.22 150 / 150 60 / 60 Output Total 2350 / 2350 1000 / 1000 400 / 400 Balance -1936.78 / -1936.78 -850 / -850 -340 / -340 Lab / Micro Data 05/19/24 05:54 05/19/24 05:54 Labs: Laboratory Results - last 24 hr 05/18/24 06:10: POC Glucose 150 H 05/18/24 11:34: POC Glucose 154 H 05/18/24 16:50: POC Glucose 153 H 05/18/24 21:29: POC Glucose 152 H 05/19/24 05:54: WBC 15.2 H, RBC 5.21, Hgb 14.6, Hct 46.0, MCV 88.3, MCH 28.0, M CHC 31.7 L, RDW Std Deviation 48.2 H, RDW Coeff of Nabor 17.3 H, Plt Count 146 L, MPV 12.6 H, Immature Gran % (Auto) 1.100 H, Neut % (Auto) 85.9 H, Lymph % (Auto) 6.1 L, Christian % (Auto) 6.1, Eos % (Auto) 0.3, Baso % (Auto) 0.5, Absolute Neuts (auto) 13.1 H, Absolute Lymphs (auto) 0.92, Nucleated RBC % 0, Sodium 141, P otassium 3.4 L, Chloride 105, Carbon Dioxide 28.0, Anion Gap 8, BUN 42 H, C reatinine 1.21 H, Estim Creat Clear Calc 44.42, Est GFR (MDRD) Af Amer 56 L, Est GFR (MDRD) Non-Af 46 L, BUN/Creatinine Ratio 34.7 H, Glucose 144 H, Calcium 9.1, Phosphorus 5.3 H, Magnesium 1.8, Total Bilirubin 0.90, AST 32, ALT 59 H, A lkaline Phosphatase 139 H, Total Protein 6.5, Albumin 2.5 L, Globulin 4.0, A lbumin/Globulin Ratio 0.6 L 05/19/24 06:14: POC Glucose 143 H Micro: Microbiology 05/12/24 13:00 Blood Culture (Wb) - Left Wrist Blood Culture - Final No growth in 5 days. 05/12/24 12:50 Blood Culture (Wb) - Port Blood Culture - Final No growth in 5 days. 05/12/24 13:00 Sputum, Induced/Lukens Gram Stain - Final 05/12/24 13:00 Sputum, Induced/Lukens Respiratory Culture - Final Presumptive C albicans 05/08/24 20:05 Blood Culture (Wb) - Port Blood Culture - Final No growth in 5 days. 05/08/24 22:40 Blood Culture (Wb) - Line Draw Blood Culture - Final No growth in 5 days. 05/09/24 02:02 Sputum, Induced/Lukens Gram Stain - Final 05/09/24 02:02 Sputum, Induced/Lukens Respiratory Culture - Final Presumptive C albicans 05/09/24 13:00 Urine Catheter - Bruno Urine Culture - Final Culture exhibits no growth. 05/08/24 13:50 Urine, Clean Catch Urine Culture - Final Presumptive E. coli 05/08/24 13:25 Blood Culture (Wb) - Anticubital Left Blood Culture - Final Escherichia coli 05/09/24 01:00 Stool Enteric Bacteriology - Final 05/09/24 01:00 Stool Clostridioides difficile (PCR) - Final 05/08/24 13:25 Mucosa - Nose SARS-CoV-2, Influenza & RSV (PCR) - Final Rhythm Strip Rhythm Strip: A-fib Rate: 85 Physical Exam Const alert, oriented x3, no apparent distress and well nourished; Negative for average body habitus or healthy appearing Constitutional Narrative: Morbidly obese, older, white female, sitting up in bed, nursing is getting ready to feed her breakfast, appears comfortable, does not look toxic HEENT normocephalic, head/scalp atraumatic and moist oral mucous membranes HEENT Narrative: Mallampati 3, no thrush Resp normal respiratory effort, no retractions, no use of accessory muscles and clear to auscultation bilaterally Auscultation: Negative for crackles, rhonchi or wheezes Cardio regular rate, S1 normal heart sound, S2 normal heart sound, no murmurs, no rub, no gallops and no clicks; Negative for regular rhythm Cardio Narrative: Rate remained controlled but rhythm is persistently irregularly irregular GI normal to inspection, nondistended, normoactive bowel sounds, soft to palpation and non-tender GI Narrative: protuberant abdomen Extremity no clubbing, cyanosis or edema Extremity Narrative: Trace edema right hand, no edema left hand, no lower extremity edema, pedal and radial pulses are 2+ Neuro oriented x3, moves all extremities and no focal motor deficits Neuro Narrative: Appears markedly weak with generalized weakness no focal deficits noted, vocal quality and volume seems to be improving but still not quite normal, I was able to observe the patient eat and she does seem to be doing well with her current diet and no signs of aspiration Speech: Negative for speech normal Motor Exam: general weakness Psych affect normal Psych Narrative: Very pleasant Assessment & Plan Assessment/Plan (1) Elevated LFTs: (2) Bacteremia due to Gram-negative bacteria: (3) Elevated troponin: (4) Septic shock: PLAN: Plan Septic shock secondary to E. coli bacteremia from UTI with pyelonephritis and left-sided hydronephrosis -Shock has resolved -Left ureteral stent placed by Dr. Aiden jorgensen on 05/09/2024 -Continue ceftriaxone with duration per infectious disease--> length of treatment is still not been clarified -Suspect patient will not need antibiotics at discharge --> await finalized ID recommendations -ID and critical care medicine following-appreciate input -Outpatient follow-up with Dr. Wolfe per his recommendations Acute hypoxic respiratory failure secondary to the above -Extubated on 05/15/2024 -Speech therapy to evaluate with modified barium swallow pending for tomorrow -No further diuretics today Dysphagia -Continue speech therapy -Modified diet per recommendations -Patient is currently a total feed on a pur?e honey thick liquid diet with liquid by teaspoon's and alternate bites and sips with meds crushed in applesauce Leukocytosis -Almost normalized Thrombocytopenia -Almost normalized and currently at 146,000 Hypomagnesemia -Resolved A-fib with RVR -Remains in A-fib but remains with fairly good rate control -Continue p.o. amiodarone -Continue p.o. metoprolol -Continue p.o. dig -Continue apixaban Hemoglobin stable- -Cardiology assisting-appreciate input ROSANA on CKD stage IIIa -Baseline serum creatinine appears to run between 0.8 and 1.2 -Peak serum creatinine during hospitalization is 2.66 -1.21 today and relatively stable -Repeat BMP in a.m. Elevated troponin -Likely from demand ischemia -NSTEMI ruled out -Continue current management -Will need outpatient cardiology follow-up after discharge Essential hypertension -Continue home lisinopril -Continue metoprolol -Restart home p.o. 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 nebulizers DM-2 -Patient does appear to be well-controlled at home as hemoglobin A1c on admission is 6.3 -Takes only oral medications at baseline -Suspect elevations while hospitalized likely related to acute illness - -Continue SSI as ordered(medium-high dose) -Patient is on cardiac calorie controlled diet -Continue Lantus 14 units -Fasting blood sugar this morning was 144 and overall control appears to be fairly good at this time Ovarian cancer -Avastin is on hold due to the above Morbid obesity -BMI 41.4 -Complicates treatment, prognosis, outcomes -Recommend weight loss DVT prophylaxis -Continue Eliquis CODE STATUS -Full code Charges/Coding Visit Charges Inpatient E&M: 81805 Subs Hosp L2
[2024-05-19 10:58] LABS: Bedside Glucose 139 mg/dL (74-106)
[2024-05-19] MEDS: Potassium Chloride Oral Soln 20 MEQ/15 ML UDC 40 MEQ PO (12:39)
[2024-05-19 17:20] LABS: Bedside Glucose 137 mg/dL (74-106)
--- NOTE | 2024-05-19 22:38 | CT_ITS ---
STUDY: CT BRAIN WITHOUT CONTRAST REASON FOR EXAM: Female, 78 years old patient with increased confusion. RADIATION DOSAGE (If Supplied By Facility): CTDIvol = ( 44.99 ) mGy, DLP = ( 863.60 ) mGycm TECHNIQUE: Transaxial CT imaging of the brain was performed without administration of intravenous contrast material. Individualized dose optimization techniques were used for this CT. COMPARISON: No relevant priors. FINDINGS: Normal soft tissue structures. Normal calvarium. There is mild cerebral atrophy with widening of the extra-axial spaces and ventricular dilatation. There are areas of decreased attenuation within the white matter tracts of the supratentorial brain, consistent with microvascular disease changes. Normal basal ganglia and thalami. Normal brainstem. Normal cerebellum. There is no intracranial hemorrhage. There is mild atherosclerotic calcification of the intracranial arteries. Normal visualized paranasal sinuses. CT/Brain/Head without Contrast IMPRESSION: 1. Chronic involutional changes of the brain. 2. No CT evidence for mass or acute intracranial hemorrhage. Electronically Signed: Roya Cast MD at 0:27 EDT ,
[2024-05-19 22:58] LABS: Allen Test Positive; Base Excess 5 mmol/L (-2 to +2); Bicarbonate 28.2 mmol/L (22-26); Blood Gas Specimen Type ART; Mode Not entered; O2 Delivery Device Room Air; PO2 81 mmHG (75-100); SITE R Radial; SO2 97 % (95-99); Total Carbon Dioxide 29 mmol/L; pCO2 34.2 mmHg (35-45); pH 7.53 (7.35-7.45)
[2024-05-19] MEDS: Doxazosin 4 MG Tablet 2 MG PO (23:33)
[2024-05-19] MEDS: Insulin Lispro 100 UNIT/ML INSULN.PEN SC (23:38)
[2024-05-19] MEDS: Fenofibrate 145 MG Tablet PO (23:40)
[2024-05-20] VITALS (10 sets, daily range): BP systolic 126–164; BP diastolic 72–86; PULSE 70–97; RESP 16–20; TEMP 35.9–36.7; O2SAT 95–97; BMI 40.4
[2024-05-20 00:09] LABS: Amphetamine Urine VISTA NEGATIVE (<1000 ng/mL); Barbiturate Urine VISTA NEGATIVE (< 200 ng/mL); Benzodiazepine Urine VISTA NEGATIVE (< 200 ng/mL); Cocaine Urine VISTA NEGATIVE (< 300 ng/mL); Ecstacy Urine VISTA NEGATIVE (< 500 ng/mL); Methadone Urine VISTA NEGATIVE (< 300 ng/mL); PCP Urine VISTA NEGATIVE (< 25 ng/mL); THC Urine VISTA NEGATIVE (< 50 ng/mL); Vista UDS pH Range 5
[2024-05-20 01:13] LABS: Bedside Glucose 151 mg/dL (74-106)
[2024-05-20] MEDS: busPIRone 5 MG Tablet 20 MG PO ×3 (05:16→20:05)
[2024-05-20] MEDS: Nystatin Powder 15gm Bottle 1 APPLIC TOPICAL ×3 (05:21→20:10)
[2024-05-20 06:14] LABS: Hemoglobin 13.6 g/dL (12.0-15.0); Mean Corp Hgb Conc 30.9 g/dL (32-36); Mean Corpuscular Hgb 27.6 pg (27.0-32.0); Mean Corpuscular Volume 89.2 fL (81-99); Platelet Count 146 K/mm3 (150-450); RBC Distribution Width CV 17.2 % (11.6-14.6); RBC Distribution Width SD 49.3 fl (35.1-43.9); Red Blood Count 4.93 M/mm3 (4.2-5.4); White Blood Count 12.5 K/mm3 (4.4-11.0)
[2024-05-20] MEDS: Insulin Lispro 100 UNIT/ML INSULN.PEN SC (06:23)
[2024-05-20 07:13] LABS: Anion Gap 7 (5-15); BUN 41 mg/dL (7-18); BUN/Creat Ratio 35.7 RATIO (10-20); Calcium,Total 8.7 mg/dL (8.5-10.1); Chloride 108 mmol/L (98-107); Creatinine, Serum 1.15 mg/dL (0.55-1.02); EST Glomerular Filtration Rate 49 mL/min (>60); Est Glom Filt Rate - Afr Amer 59 mL/min (>60); Estimated Creatinine Clearance 46.06 ml/min; Glucose 134 mg/dL (74-106); Potassium 3.5 mmol/L (3.5-5.1); Sodium Level 142 mmol/L (136-145)
[2024-05-20 07:15] LABS: Bedside Glucose 160 mg/dL (74-106)
[2024-05-20] MEDS: Aspirin 81 MG TAB.CHEW PO (07:50)
[2024-05-20] MEDS: Multivitamins,Therapeutic Tablet 1 TABLET PO (07:50)
[2024-05-20] MEDS: Ceftriaxone 2 GM in 0.9% Normal Saline (50mL MB+) 50 ML IV (07:50)
[2024-05-20] MEDS: Senna/Docusate Sodium 1 Tablet 2 TABLET PO ×2 (07:50→20:10)
[2024-05-20] MEDS: APIXABAN 5 MG TABLET PO ×2 (07:50→20:07)
[2024-05-20] MEDS: Tolterodine Tartrate 2 MG CAP.SA PO (07:51)
[2024-05-20] MEDS: Amiodarone 200 MG Tablet PO ×2 (07:51→20:06)
[2024-05-20] MEDS: Digoxin 125 MCG Tablet PO (07:51)
[2024-05-20] MEDS: DULoxetine Hcl 60 MG Capsule PO (07:51)
[2024-05-20] MEDS: hydroCHLOROthiazide 25 MG Tablet PO (07:52)
[2024-05-20] MEDS: Menthol/Lanolin/Calamine/Znox 113 GM Tube 1 APPLIC TOPICAL ×2 (07:52→20:05)
[2024-05-20] MEDS: Magnesium Chloride 64 MG Delay Rel.Tablet 128 MG PO (07:52)
[2024-05-20] MEDS: Insulin Glargine-YFGN 100 UNIT/ML Pen 14 UNIT SC (07:53)
[2024-05-20] MEDS: Lisinopril 20 MG Tablet PO ×2 (07:53→20:12)
[2024-05-20] MEDS: Ezetimibe 10 MG Tablet PO (07:53)
--- NOTE | 2024-05-20 08:53 | CASEMGMT ---
[facility] TCU does not have any beds available. SW to talk with family regarding alternate SNF choices. Aminta Handley SILK BRUSHER ANGEL[facility]
[2024-05-20] MEDS: Metoprolol Tartrate 100 MG Tablet PO ×2 (10:20→20:07)
[2024-05-20] MEDS: amLODIPine 5 MG Tablet PO (10:20)
--- NOTE | 2024-05-20 11:16 | CASEMGMT ---
Addendum entered by Aminta Handley 05/20/24 11:43: SW will talk with family and check to see if they have spoken to patient's primary care physician. As it would make more sense to have a physician that will be continuing to follow patient complete the letter. Aminta DOMINGUEZ Original Note: SOREN spoke with patient's daughter Olivia. Introduced self and role at [facility]. SOREN explained TCU is full and they do not anticipate any openings this week. Olivia said she needs a new list. SOREN provided Olivia with a list of correction facility providers including quality and resource use data and consistent with patient?s preferred geographic region, medical needs, and insurance network were provided from the [employer]. SOREN received a call from the hospitalist that had patient over the weekend. Per physician patient's family needs to pay patient's bills, but cannot access her accounts to pay the bills. Patient is currently confused. Per patient's family patient's privacy attorney needs a letter. SOREN spoke with patient's daughter about this and obtained patient's fingernail former's name and number. Patient's privacy attorney is Butch Montgomery at [employer] [facility]. SOERN called Mr Montgomery and he forwarded SOREN the wording that would be needed in the letter. SOREN spoke with patient's physician and at this time she is not comfortable with completing a letter for patient. Aminta DOMINGUEZ
[2024-05-20 11:33] LABS: Bedside Glucose 120 mg/dL (74-106)
--- NOTE | 2024-05-20 11:49 | CASEMGMT ---
Social Work This SW followed up with patient's daughter, Olivia, after SNF list was provided. Patient's daughter reports being disappointed that TCU does not have any beds, but she identified [facility] as another option. Patient's daughter requested a referral be sent to [facility]. Referral sent to [facility] upon request and DC strategy planning consultant updated. Grecia Mora, HOSE INSPECTOR AND PATCHER, FIRE TECHNICIAN
--- NOTE | 2024-05-20 12:03 | PCM.PROGNOTE ---
Subjective Subjective Patient seen and examined. She was alert and communicative and had no active complaints. Review of systems is otherwise negative. SHe has remained hemodynamically stable. Objective Data Objective Data Vital Signs: Vital Signs Temp Pulse Resp BP Pulse Ox O2 Del Method O2 Flow Rate 96.6 F L 89 16 164/72 H 95 Room Air 2 05/20/24 07:45 05/20/24 10:20 05/20/24 07:45 05/20/24 10:18 05/20/24 07:45 05/20/24 08:40 05/15/24 08:00 FiO2 30 05/15/24 19:00 Oxygen Flow Rate (L/min) 2 Oxygen Delivery Method Room Air Weight: 220 lb 10.923 oz Body Mass Index (BMI) 40.4 Intake & Output: Intake and Output for Last 24 Hours 05/18/24 05/19/24 05/20/24 23:59 23:59 23:59 Intake Total 150 / 150 230 / 230 50 / 50 Output Total 1000 / 1000 1150 / 1150 450 / 450 Balance -850 / -850 -920 / -920 -400 / -400 Lab / Micro Data 05/20/24 05:48 05/20/24 05:48 Labs: Laboratory Results - last 24 hr 05/19/24 17:01: POC Glucose 137 H 05/19/24 22:03: POC Glucose 151 H 05/19/24 23:00: Urine Opiates Screen NEGATIVE, Urine Methadone Screen NEGATIVE, Ur Barbiturates Screen NEGATIVE, Ur Phencyclidine Scrn NEGATIVE, Ur Amphetamines Screen NEGATIVE, MDMA (Ecstasy) Screen NEGATIVE, U Benzodiazepines Scrn NEGATIVE, Urine Cocaine Screen NEGATIVE, U Cannabinoids Screen NEGATIVE, Ur Drug Screen Comment 05/20/24 05:48: WBC 12.5 H, RBC 4.93, Hgb 13.6, Hct 44.0, MCV 89.2, MCH 27.6, MCHC 30.9 L, RDW Std Deviation 49.3 H, RDW Coeff of Nabor 17.2 H, Plt Count 146 L, MPV 12.0, Sodium 142, Potassium 3.5, Chloride 108 H, Carbon Dioxide 27.0, Anion Gap 7, BUN 41 H, Creatinine 1.15 H, Estim Creat Clear Calc 46.06, Est GFR (MDRD) Af Amer 59 L, Est GFR (MDRD) Non-Af 49 L, BUN/Creatinine Ratio 35.7 H, Glucose 134 H, Calcium 8.7 05/20/24 06:20: POC Glucose 160 H 05/20/24 11:11: POC Glucose 120 H Micro: Microbiology 05/12/24 13:00 Blood Culture (Wb) - Left Wrist Blood Culture - Final No growth in 5 days. 05/12/24 12:50 Blood Culture (Wb) - Port Blood Culture - Final No growth in 5 days. 05/12/24 13:00 Sputum, Induced/Lukens Gram Stain - Final 05/12/24 13:00 Sputum, Induced/Lukens Respiratory Culture - Final Presumptive C albicans 05/08/24 20:05 Blood Culture (Wb) - Port Blood Culture - Final No growth in 5 days. 05/08/24 22:40 Blood Culture (Wb) - Line Draw Blood Culture - Final No growth in 5 days. 05/09/24 02:02 Sputum, Induced/Lukens Gram Stain - Final 05/09/24 02:02 Sputum, Induced/Lukens Respiratory Culture - Final Presumptive C albicans 05/09/24 13:00 Urine Catheter - Bruno Urine Culture - Final Culture exhibits no growth. 05/08/24 13:50 Urine, Clean Catch Urine Culture - Final Presumptive E. coli 05/08/24 13:25 Blood Culture (Wb) - Anticubital Left Blood Culture - Final Escherichia coli 05/09/24 01:00 Stool Enteric Bacteriology - Final 05/09/24 01:00 Stool Clostridioides difficile (PCR) - Final 05/08/24 13:25 Mucosa - Nose SARS-CoV-2, Influenza & RSV (PCR) - Final ABG Data ABG results: ABG 05/19/24 22:54 Specimen Type ART Sample Site R Radial pH 7.53 H Bicarbonate Actual 28.2 H Total CO2 29 Base Excess 5 H O2 Saturation 97 ABG pCO2 34.2 L ABG pO2 81 Rafa Test Positive O2 Delivery Device Room Air Vent Mode Not entered Radiography Diagnostic Testing: Radiology Impression Brain CT 05/19/24 22:38 IMPRESSION: 1. Chronic involutional changes of the brain. 2. No CT evidence for mass or acute intracranial hemorrhage. Electronically Signed: Roya Cast MD at 0:27 EDT , Rhythm Strip Rhythm Strip: A-fib Rate: 85 Physical Exam Const alert, oriented x3 and no apparent distress Constitutional Narrative: obese, frail General Appearance: cooperative HEENT normocephalic, head/scalp atraumatic and moist oral mucous membranes Eyes PERRL and EOMs intact bilaterally Neck no lymphadenopathy and supple Lymph Lymphatic: no lymphadenopathy noted and no lymphedema noted Resp normal respiratory effort, normal air movement and clear to auscultation bilaterally Cardio regular rate, regular rhythm, S1 normal heart sound, S2 normal heart sound and no murmurs GI normal to inspection, nondistended, normoactive bowel sounds, soft to palpation, non-tender and non-distended Extremity normal capillary refill, no clubbing, cyanosis or edema and no calf tenderness General Extremity: no tenderness to palpation of joints or extremities Skin General Skin Exam: no breakdown Neuro CN's II-XII intact bilaterally, no focal motor deficits, no sensory deficits noted and deep tendon reflexes 2+ bilaterally Motor Exam: strength 5/5 throughout and general weakness Psych thought process normal, cooperative and affect normal Appearance: appropriate Assessment & Plan Assessment/Plan (1) Septic shock: (2) Bacteremia due to Gram-negative bacteria: (3) Elevated troponin: PLAN: Plan #Septic shock due to E coli bacteremia due to UTI with pyelonephritis and left sided hydronephrosis Had a left ureteral stent inserted by urology on 05/09/2024. Initially required multiple pressors but now weaned off of all of them and transferred out of the ICU. On IV ceftriaxone. ID on board. To follow-up with urology on outpatient basis. #Acute hypoxic respiratory failure Had a CODE BLUE called in the onset of admission which was changed to rapid response. Had to be intubated for airway protection. Now subsequently extubated. had modified barium swallow and now on puree gamal thick liquid diet as per speech recommendatioins #Dysphagia: as above. Modified barium swallow done on 05/16/2024 showed moderate severe oropharyngeal dysphagia. #Thrombocytopenia:improving. platelets are 146 today. Will continue to monitor #A-fib: Now rate controlled. On p.o. amiodarone and metoprolol as well as digoxin. On Eliquis. #ROSANA on CKD stage IIIa Resolved. Creatinine is back down to her baseline. Will monitor. #Benign essential hypertension: On lisinopril and metoprolol. Also on hydrochlorothiazide. Also on amlodipine. #COPD: Breathing treatments bronchodilators. Not in Exacerbation #Type 2 diabetes mellitus On Lantus 14 units daily. Insulin Sliding scale. Accu-Cheks ACHS. A1c on admission was 6.3. #Ovarian cancer: On Avastin. Follow-up with [facility]ology on outpatient basis #Morbid obesity: BMI is 40.4. Complicates acute care expected prognosis. DVT prophylaxis: On Eliquis Charges/Coding Visit Charges Inpatient E&M: 01548 Subs Hosp L2
--- NOTE | 2024-05-20 13:35 | CASEMGMT ---
[facility] has accepted patient. SOREN called patient's daughter Olivia and let her know [facility] has accepted and is [facility] her facility of choice. Olivia asked if she could get back with tomorrow. SOREN told Olivia as long as she has an answer tomorrow am. SOREN also let Olivia know that the physician is not comfortable with writing a letter due to patient's issue being acute and the hospitalist will not be following patient after discharge. SOREN suggested Olivia contact patient's primary care doctor to see if she would be willing to help. Plan: SNF pending family's decision and then pre-cert. Aminta Handley PUBLIC WORKS SUPERVISOR ANGELICA
--- NOTE | 2024-05-20 14:53 | PN.CARD_ITS ---
Subjective Subjective Patient evaluated Objective Data Vital Signs: Vital Signs Temp Pulse Resp BP Pulse Ox O2 Del Method O2 Flow Rate 96.9 F L 70 18 126/80 H 97 Room Air 2 05/20/24 12:15 05/20/24 12:15 05/20/24 12:15 05/20/24 12:15 05/20/24 12:15 05/20/24 12:15 05/15/24 08:00 FiO2 30 05/15/24 19:00 Oxygen Flow Rate (L/min) 2 Oxygen Delivery Method Room Air Weight: 220 lb 10.923 oz Body Mass Index (BMI) 40.4 Intake & Output: Intake and Output for Last 24 Hours 05/18/24 05/19/24 05/20/24 23:59 23:59 23:59 Intake Total 150 / 150 230 / 230 50 / 50 Output Total 1000 / 1000 1150 / 1150 450 / 450 Balance -850 / -850 -920 / -920 -400 / -400 Lab / Micro Data 05/20/24 05:48 05/20/24 05:48 Labs: Laboratory Results - last 24 hr 05/19/24 17:01: POC Glucose 137 H 05/19/24 22:03: POC Glucose 151 H 05/19/24 23:00: Urine Opiates Screen NEGATIVE, Urine Methadone Screen NEGATIVE, Ur Barbiturates Screen NEGATIVE, Ur Phencyclidine Scrn NEGATIVE, Ur Amphetamines Screen NEGATIVE, MDMA (Ecstasy) Screen NEGATIVE, U Benzodiazepines Scrn NEGATIVE, Urine Cocaine Screen NEGATIVE, U Cannabinoids Screen NEGATIVE, Ur Drug Screen Comment 05/20/24 05:48: WBC 12.5 H, RBC 4.93, Hgb 13.6, Hct 44.0, MCV 89.2, MCH 27.6, M CHC 30.9 L, RDW Std Deviation 49.3 H, RDW Coeff of Nabor 17.2 H, Plt Count 146 L, MPV 12.0, Sodium 142, Potassium 3.5, Chloride 108 H, Carbon Dioxide 27.0, Anion Gap 7, BUN 41 H, Creatinine 1.15 H, Estim Creat Clear Calc 46.06, Est GFR (MDRD) Af Amer 59 L, Est GFR (MDRD) Non-Af 49 L, BUN/Creatinine Ratio 35.7 H, Glucose 134 H, Calcium 8.7 05/20/24 06:20: POC Glucose 160 H 05/20/24 11:11: POC Glucose 120 H ABG Data ABG results: ABG 05/19/24 22:54 Specimen Type ART Sample Site R Radial pH 7.53 H Bicarbonate Actual 28.2 H Total CO2 29 Base Excess 5 H O2 Saturation 97 ABG pCO2 34.2 L ABG pO2 81 Rafa Test Positive O2 Delivery Device Room Air Vent Mode Not entered Rhythm Strip Rhythm Strip: A-fib Rate: 85 Cardiology Labs/Tests 05/19/24 22:54: pH 7.53 H, Bicarbonate Actual 28.2 H, Base Excess 5 H, O2 Saturation 97, ABG pCO2 34.2 L, ABG pO2 81, Rafa Test Positive 05/20/24 05:48: WBC 12.5 H, RBC 4.93, Hgb 13.6, Hct 44.0, MCV 89.2, MCH 27.6, M CHC 30.9 L, Plt Count 146 L, MPV 12.0, Sodium 142, Potassium 3.5, Chloride 108 H , Carbon Dioxide 27.0, Anion Gap 7, BUN 41 H, Creatinine 1.15 H, Est GFR (MDRD) Af Amer 59 L, Est GFR (MDRD) Non-Af 49 L, BUN/Creatinine Ratio 35.7 H, Glucose 134 H, Calcium 8.7 Rhythm: EKG: ECHO: Stress Test: Cardiac Cath: PCI: CT Surgery: Holter monitor: EPS: PPM: CXR: Chest CT Scan: Radiography Diagnostic Testing: Radiology Impression Brain CT 05/19/24 22:38 IMPRESSION: 1. Chronic involutional changes of the brain. 2. No CT evidence for mass or acute intracranial hemorrhage. Electronically Signed: Roya Cast MD at 0:27 EDT Reading Location ID and State: [address] [place] [address] , Service support , Physical Exam Const no apparent distress General Appearance: cooperative HEENT hearing grossly normal bilaterally Head and Scalp: atraumatic Eyes EOMs intact bilaterally Neck General: normal visual inspection Chest inspection of chest normal and palpation of chest normal Resp normal respiratory effort Auscultation: clear to auscultation bilaterally Cardio S1 normal heart sound and S2 normal heart sound Jugular Venous Distention: JVD Rhythm: abnormal rhythm irregularly irregular GI normal to inspection, nondistended, normoactive bowel sounds Extremity normal capillary refill and no pedal edema Peripheral Pulses: Yes pulses 2+ throughout and femoral pulses present Skin no rashes or lesions noted Neuro oriented x3 and CN's II-XII intact bilaterally Psych Appearance: grossly normal and appropriate Assessment & Plan Assessment/Plan (1) Atrial fibrillation: QUALIFIERS: Atrial fibrillation type: paroxysmal Qualified Code(s): I48.0 - Paroxysmal atrial fibrillation PLAN: Patient's atrial fibrillation is better controlled. Continue amiodarone p.o. Continue metoprolol 100 mg twice daily Continue digoxin and check digoxin level Will recommend discontinue aspirin Will sign off for now. Please reconsult as necessary.
--- NOTE | 2024-05-20 15:11 | PCM.PN.ID ---
Physical Exam Narrative Feeling ok, no fever, no abd pain Const alert and no apparent distress Resp normal air movement and clear to auscultation bilaterally Cardio regular rate and regular rhythm GI soft to palpation, non-tender and non-distended Skin no rashes or lesions noted ID ID: Route of nutrition/ use of supplements: [] Nutritional Intake: [] IV Site: [] Bruno Catheter: [] Assessment & Plan Assessment/Plan (1) Septic shock: PLAN: due to ecoli bacteremia from pyelo and L sided hydro. L ureteral stent placed by Dr. Wolfe 05/09/24. Off pressors. LFTs improved. Fever resolved. Sputum with yeast but minimal basilar changes on cxr, off vent and on room air. Received 3 days micafungin. Out of icu. Will stop ceftriaxone today. Will follow (2) History of ovarian cancer: (3) Hydronephrosis concurrent with and due to calculi of kidney and ureter: (4) Bacteremia due to Gram-negative bacteria:
[2024-05-20 17:31] LABS: Bedside Glucose 122 mg/dL (74-106)
[2024-05-20] MEDS: Glucerna Shake 120 ML LIQUID PO ×2 (18:33→20:11)
[2024-05-20] MEDS: Budesonide Respules 0.5 MG/2 ML AMPUL.NEB. INHALATION (19:52)
[2024-05-20] MEDS: Albuterol 2.5 MG/3 ML VIAL.NEB. INHALATION (19:52)
[2024-05-20] MEDS: Doxazosin 4 MG Tablet 2 MG PO (20:06)
[2024-05-20] MEDS: Fenofibrate 145 MG Tablet PO (20:12)
[2024-05-20 21:01] LABS: Bedside Glucose 149 mg/dL (74-106)
[2024-05-21] VITALS (10 sets, daily range): BP systolic 142–157; BP diastolic 74–126; PULSE 70–87; RESP 16–18; TEMP 36.4–36.6; O2SAT 95–99; BMI 39.9
[2024-05-21] MEDS: Nystatin Powder 15gm Bottle 1 APPLIC TOPICAL ×2 (06:20→15:07)
[2024-05-21] MEDS: busPIRone 5 MG Tablet 20 MG PO ×3 (06:20→19:55)
[2024-05-21 06:39] LABS: Bedside Glucose 123 mg/dL (74-106)
[2024-05-21] MEDS: Budesonide Respules 0.5 MG/2 ML AMPUL.NEB. INHALATION ×2 (07:11→19:04)
[2024-05-21] MEDS: Albuterol 2.5 MG/3 ML VIAL.NEB. INHALATION ×3 (07:11→19:04)
[2024-05-21 08:16] LABS: Absolute Lymphocyte Count 1.21 X10^3/uL (0.83-4.51); Absolute Neutrophil Count 7.8 X10^3/uL (2.0-7.7); Basophil# 0.07 X10^3/uL; Basophil% 0.7 % (0-1); Eosinophil# 0.13 X10^3/uL; Eosinophils% 1.3 % (0-5); Lymphocyte # 1.21 X10^3/ul (0.83-4.51); Mean Corp Hgb Conc 31.8 g/dL (32-36); Mean Corpuscular Hgb 28.2 pg (27.0-32.0); Mean Corpuscular Volume 88.7 fL (81-99); Mean Platelet Vol. 12.4 fl (6.2-12.0); NRBC Flagged by Analyzer 0 % (0-5); Neutrophil # 7.78 X10^3/uL (2.7-7.7); Neutrophil % 77.4 % (47-70); Platelet Count 187 K/mm3 (150-450); RBC Distribution Width CV 17.4 % (11.6-14.6); RBC Distribution Width SD 48.6 fl (35.1-43.9); Red Blood Count 4.96 M/mm3 (4.2-5.4); White Blood Count 10.1 K/mm3 (4.4-11.0)
[2024-05-21 08:26] LABS: Anion Gap 9 (5-15); BUN 44 mg/dL (7-18); BUN/Creat Ratio 42.7 RATIO (10-20); Calcium,Total 8.7 mg/dL (8.5-10.1); Chloride 107 mmol/L (98-107); Creatinine, Serum 1.03 mg/dL (0.55-1.02); EST Glomerular Filtration Rate 55 mL/min (>60); Est Glom Filt Rate - Afr Amer 67 mL/min (>60); Estimated Creatinine Clearance 51.16 ml/min; Glucose 120 mg/dL (74-106); Potassium 3.4 mmol/L (3.5-5.1); Sodium Level 142 mmol/L (136-145)
--- NOTE | 2024-05-21 09:34 | CASEMGMT ---
Social work This SW checked back in with patient's daughter this morning per her request to think overnight about SWCC placement. Patient's daughter requested one more check to TCU for bed availability; SW Aminta checked and there are still no beds. Patient's daughter gave permission to pursue SWCC placement if no TCU beds are available. Patient's daughter also requested SW check with SW[facility] that patient's port would be flushed every 3 weeks. SOREN Lemos verifying this with [facility]. Plan: [facility], pending precert and medically ready Grecia Mora, CCO, ELECTRO MECHANICAL DESIGNER
--- NOTE | 2024-05-21 09:42 | CASEMGMT ---
Addendum entered by Aminta Handley 05/21/24 11:32: Physician was going to review patient's chart to see if patient is ready for d/c today. Then SOREN spoke with Speech Therapy who said patient is going to have a swallow study today at 230. SOREN notified physician. SOREN also notified patient's daughter that insurance did approve patient. SW and physician are aware patient will be getting a repeat swallow study today. SW told patient's daughter it is possible patient could still go today. Someone will update her when more is known. Plan: [facility] when medically ready. Aminta DOMINGUEZ Addendum entered by Aminta Handley 05/21/24 11:16: [facility] is not able to flush patient's port. SOREN notified patient's daughter that TCU does not have any beds. SW also let her know [facility] will not be able to flush patient's port. Patient normally goes to see Dr Ochoa for this. Patient's daughter asked if patient will be discharged today and SOREN told her it is doubtful as not sure insurance would give an answer that fast. SOREN then received a message that patient was approved by insurance for [facility]. SOREN notified physician and asked if she will send patient today. Await response. Aminta DOMINGUEZ Original Note: SOREN asked [facility] if they would be able to flush patient's port every 3 weeks. SOREN also asked TCU if there were any beds and Shalini said there are no beds. SOREN then asked [facility] to please start the pre-cert. Plan: d/c to [facility] pending insurance approval. Aminta DOMINGUEZ
[2024-05-21] MEDS: Aspirin 81 MG TAB.CHEW PO (10:38)
[2024-05-21] MEDS: Multivitamins,Therapeutic Tablet 1 TABLET PO (10:38)
[2024-05-21] MEDS: APIXABAN 5 MG TABLET PO ×2 (10:38→19:55)
[2024-05-21] MEDS: Senna/Docusate Sodium 1 Tablet 2 TABLET PO ×2 (10:39→19:56)
[2024-05-21] MEDS: Lisinopril 20 MG Tablet PO ×2 (10:39→19:56)
[2024-05-21] MEDS: amLODIPine 5 MG Tablet PO (10:39)
[2024-05-21] MEDS: DULoxetine Hcl 60 MG Capsule PO (10:39)
[2024-05-21] MEDS: hydroCHLOROthiazide 25 MG Tablet PO (10:40)
[2024-05-21] MEDS: Amiodarone 200 MG Tablet PO ×2 (10:40→19:56)
[2024-05-21] MEDS: Magnesium Chloride 64 MG Delay Rel.Tablet 128 MG PO (10:40)
[2024-05-21] MEDS: Digoxin 125 MCG Tablet PO (10:41)
[2024-05-21] MEDS: Insulin Glargine-YFGN 100 UNIT/ML Pen 14 UNIT SC (10:41)
[2024-05-21] MEDS: Menthol/Lanolin/Calamine/Znox 113 GM Tube 1 APPLIC TOPICAL (10:52)
[2024-05-21] MEDS: Ezetimibe 10 MG Tablet PO (10:55)
[2024-05-21] MEDS: Metoprolol Tartrate 100 MG Tablet PO ×2 (11:52→19:55)
[2024-05-21 12:11] LABS: Bedside Glucose 185 mg/dL (74-106)
--- NOTE | 2024-05-21 14:45 | TREXTCAR_ITS ---
Diet Diet Order/Speech Therapy: 05/20/24 15:24 Diet: Carbohydrate Controlled Food consistency:: Pureed Liquid Consistency:: Honey/Moderately Thick Diet Comments: TOTAL FEED, liq by tsp, alt bites/sips,meds crushed in , yog@B,MC@L,pud@D Routine Orders/Code Status Enema Type: Fleetz Enema Frequency: Daily PRN Suppository Type: Dulcolax 10mg Suppository Frequency: Daily PRN O2 Frequency: PRN Keep PO Greater than or Equal to (%): 90 Wound(s) umbilicus: Wound Type: Laceration left mid abdomen: Wound Type: Abrasion right abdomen: Wound Type: blisters Therapies Weight Bearing: Weight bearing as tolerated Physical Therapy: Eval and Treat Occupational Therapy: Eval and Treat Problem/Diagnosis (1) Septic shock: Status: Acute Code(s): A41.9 - Sepsis, unspecified organism; R65.21 - Severe sepsis with septic shock (2) History of ovarian cancer: Status: Acute Code(s): Z85.43 - Personal history of malignant neoplasm of ovary (3) Hydronephrosis concurrent with and due to calculi of kidney and ureter: Status: Acute Code(s): N13.2 - Hydronephrosis with renal and ureteral calculous obstruction (4) Bacteremia due to Gram-negative bacteria: Status: Acute Code(s): R78.81 - Bacteremia Plan #Septic shock due to E coli bacteremia * due to UTI with pyelonephritis and left sided hydronephrosis * Had a left ureteral stent inserted by urology on 05/09/2024. * Initially required multiple pressors but now weaned off of all of them and transferred out of the ICU. On IV ceftriaxone. * ID on board. To follow-up with urology on outpatient basis. #Acute hypoxic respiratory failure * Had a CODE BLUE called in the onset of admission which was changed to rapid response. Had to be intubated for airway protection. * Now subsequently extubated. * had modified barium swallow and now on puree gamal thick liquid diet as per speech recommendatioins * #Dysphagia: as above. Modified barium swallow done on 05/16/2024 showed moderate severe oropharyngeal dysphagia. #Thrombocytopenia:improving. platelets are 146 today. Will continue to monitor #A-fib: Now rate controlled. On p.o. amiodarone and metoprolol as well as digoxin. On Eliquis. #ROSANA on CKD stage IIIa * Resolved. Creatinine is back down to her baseline. Will monitor. #Benign essential hypertension: On lisinopril and metoprolol. Also on hydrochlorothiazide. Also on amlodipine. #COPD: Breathing treatments bronchodilators. Not in Exacerbation #Type 2 diabetes mellitus * On Lantus 14 units daily. * Insulin Sliding scale. Accu-Cheks ACHS. A1c on admission was 6.3. #Ovarian cancer: On Avastin. Follow-up with [employer] [facility] oncology on outpatient basis #Morbid obesity: BMI is 40.4. Complicates acute care expected prognosis. DVT prophylaxis: On Eliquis Allergies/Procedures Done in Hospital Allergies amoxicillin Allergy (Severe, Verified 05/08/24 12:53) hives chlorhexidine Allergy (Unknown, Verified 05/08/24 12:53) red skin morphine Allergy (Unknown, Verified 05/08/24 12:53) headaches labetalol Allergy (Verified 05/08/24 12:53) Unknown pitavastatin (From Livalo) Allergy (Verified 05/08/24 12:53) Other simvastatin (From Zocor) Allergy (Verified 05/08/24 12:53) Other atorvastatin (From Lipitor) Adverse Reaction (Unknown, Verified 05/08/24 12:53) myalgias budesonide (From Symbicort) Adverse Reaction (Verified 05/08/24 12:53) Other JITTERS formoterol (From Symbicort) Adverse Reaction (Verified 05/08/24 12:53) Other JITTERS hydrocodone (From Vicodin) Adverse Reaction (Verified 05/08/24 12:53) Other HEADACHE Iqsohoz-MKD-MaV Reductase Inhibitor (Wyrtnpi-Ggu-Ygb Reductase Inhibitor) Adverse Reaction (Verified 05/08/24 12:53) Other PAIN AND JITTERS Type of Care/Length of Stay Estimated LOS: Convalescent Care Less Than 30 days Type of Care Needed: Skilled Rehab Potential: Fair Prognosis: Fair Additional Orders/Day of Discharge Day of Discharge: 05/21/24 Dietary and Speech Recommendations Dietitian Recommendations/Changes: Adjust to 1800 calorie controlled diet per [employer] consistency/texture recommendations. Will provide ONS w/ meals (yogurt w/ B, magic cup w/ L, pudding w/ D) Move 120ml glucerna 4x daily to medpass. Will d/c glucerna with meals. Will monitor weight, as available. Reviewed and approved by Alena Singleton, RD, LD. Discharge Plan Admission Admit Date/Time: 05/08/24 16:26 Primary Reason for Your Visit: septic shock, E coli bacteremia, Acute hypoxic respiratory failure Attending Provider: Li Valverde Primary Care Provider: Qiuque Mims Consulting Providers: King Watkins; Li Valverde; Bryce Bender; Promise oBnd; Richard Macedo; Roldan Henson; Jonn Fields; Arya Robertson; Iker Braga; Wilbur Lopez; Arnie Wood; Iman Aldridge; Newton José; Ernesto Martin; Kimberlee Ruano; Yaneth Padron; Magdiel Fernandez; Baldemar Mckinley; Pramod Luque; Jhony Unger; Francisco Dubois; Dereck Vargas; Kevin Wolfe; Beatrice Aguilar Instructions Patient Instructions: ED Bacteremia, Suspected (Adult) Discharge Orders/Prescriptions Prescriptions: New metoprolol tartrate 100 mg Tablet 100 mg PO BID Qty: 60 2RF amiodarone 200 mg Tablet 200 mg PO BID Qty: 60 2RF amlodipine 5 mg Tablet 5 mg PO DAILY Qty: 30 2RF digoxin 125 mcg (0.125 mg) Tablet 125 mcg PO DAILY Qty: 30 2RF insulin glargine-yfgn 100 unit/mL (3 mL) Insulin Pen 14 unit subcut DAILY Qty: 15 2RF Continued (DME) compress.stocking,knee,reg,lrg Misc See Rx Instructions .ROUTE .MEDSUPPLY Qty: 2 1RF Rx Instructions: wear daily for venous insufficiency 20-30 mmHg magnesium oxide 400 mg magnesium capsule 400 mg PO DAILY loperamide 2 mg tablet 2 mg PO Q6H PRN (Reason: Diarrhea) albuterol sulfate [Ventolin HFA] 90 mcg/actuation HFA aerosol inhaler 1 inh inhalation ONCE PRN (Reason: SOB) multivitamin Tablet 1 tab PO DAILY ibandronate 150 mg tablet 150 mg PO QMONTH Qty: 14 2RF Patient Comments: PT TAKES ON 15TH OF EVERY MONTH hydrochlorothiazide 25 mg tablet 25 mg PO DAILY Qty: 90 3RF Avastin 25 mg/mL solution intravitreal MONTHLY Patient Comments: scheduled for tomorrow, but it has been cancelled. oxybutynin chloride 10 mg tablet extended release 24hr 10 mg PO DAILY Qty: 90 1RF docusate sodium [Colace] 100 mg Capsule 100 mg PO BID PRN (Reason: Constipation) cholecalciferol (vitamin D3) 1,250 mcg (50,000 unit) tablet 50,000 unit PO FR (DME) lancing device Misc See Rx Instructions .ROUTE .MEDSUPPLY Qty: 1 0RF Rx Instructions: As directed spironolactone 25 mg tablet 25 mg PO DAILY Qty: 90 3RF doxazosin 2 mg tablet 2 mg PO QHS Qty: 30 11RF buspirone 10 mg tablet 20 mg PO TID 90 Days Qty: 540 1RF fluticasone propion-salmeterol [Wixela Inhub] 500-50 mcg/dose blister with device 1 inh inhalation BID Qty: 3 3RF ezetimibe [Zetia] 10 mg tablet 10 mg PO QDAY Qty: 90 2RF pantoprazole 40 mg tablet,delayed release (DR/EC) 40 mg PO BID Qty: 180 5RF metformin 500 mg tablet 500 mg PO BID Qty: 180 1RF Eliquis 5 mg tablet 5 mg PO BID Qty: 180 3RF fenofibrate micronized 134 mg capsule 134 mg PO QPM Qty: 90 3RF lisinopril 20 mg tablet 20 mg PO BID Qty: 200 2RF lorazepam [Ativan] 0.5 mg tablet 0.5 mg PO BID PRN (Reason: Anxiety) Qty: 30 0RF Patient Comments: ran out in April duloxetine 60 mg capsule,delayed release(DR/EC) 60 mg PO DAILY Qty: 90 3RF Discontinued furosemide 40 mg tablet 20 mg PO PRN amlodipine 5 mg tablet 5 mg PO BID Qty: 180 3RF sotalol 120 mg tablet 120 mg PO DAILY Qty: 180 3RF Referrals / Follow Up: Quique Mims MD [Primary Care Provider] - Within 1 Week Disposition Disposition (needs filled in before D/C Order can be placed): Detention Facility
[2024-05-21] MEDS: Glucerna Shake 120 ML LIQUID PO (15:08)
--- NOTE | 2024-05-21 15:39 | ST.MBS ---
Modified Barium Swallow Patient Information Study Date: 05/21/24 Study Time: 14:00 Direct Billable Minutes: 114 Total Minutes procedure & reportin Diagnosis: GERD K21.9; COPD J44.9 Referring Physician: Li Valverde Reason for Referral: Objectively assess swallow function, assess risk for aspiration, and determine recommendations for least restrictive diet textures and compensatory strategies to improve safety of swallow. Medical History: Pt is a 78 F who came to ED 04/28/2024 with intermittent left flank pain that started day before admission. Day before admission she had chills. Her symptoms got worse day of presentation to ED with more chills with shivering, left flank pain, and dry heaving. She was admitted to [facility] and a code blue was called, she was unresponsive and subsequently intubated and transferred to ICU. Intubated 05/08/24 @ 20:47 w/ #7.5 ETT, 22 @ lip x 7 days, extubated 05/14/24 pm. She was referred for BSE 05/15/2024 to assess concerns for swallowing difficulty. Pt was recommended NPO w/ ice chips and recommended for MBSS prior to diet advancement. MBSS 05/16/2024 revealed moderate-severe oropharyngeal dysphagia w/ silent aspriation of thin and nectar thick liquids. She was recommended diet advancement to puree textures / honey (moderately) thick liquids by tsp w/ total feeding assistance. Pt tolerated diet textures and was recommended for repeat MBSS today to consider diet advancement. PMHx: Depression, Diabetes, Kidney stones, Non-smoker, CPAP dependence, CHF, TN, OAB , Atypical chest pain, Urinary frequency, Breast cancer screening, Grief reaction, Non-rheumatic tricuspid valve insufficiency, Non-rheumatic mitral regurgitation, History of cardioversion (~06/28/22), Chronic atrial fibrillation with RVR, Obstructive sleep apnea, Chronic obstructive pulmonary disease, Depression, Preop cardiovascular exam, Port-A-Cath in place, Ovarian cancer, Pelvic mass, Ascites, Diarrhea, Abdominal pain, Flu vaccine need, Vitamin D deficiency, Essential hypertension, Diastolic congestive heart failure, Atherosclerotic heart disease of [place] coronary artery without angina pectoris, Long-term use of high-risk medication, SOB, Pulmonary HTN, Panic disorder, Hiatal hernia, Debility, Paroxysmal atrial fibrillation with rapid ventricular response, Streptococcal pneumonia, Acute exacerbation of COPD, Acute respiratory failure with hypoxia and hypercarbia, NSTEMI, Sepsis, Junctional rhythm, Spastic colon, Morbid obesity, PAF, HLD, CAD, Anxiety, DM2, Hypokalemia. Current Diet Ordered: Puree / Honey (moderately) thick liquid Dentition: Natural Teeth and Missing Teeth Mental Status: WNL (Able to follow commands for evaluation) Respiratory Status: Oxygenating on Room Air Penetration-Aspiration Scale Penetration-Aspiration Scale: OBJECTIVE ASSESSMENT OF SWALLOW FUNCTION (QUANTITATIVE ? PER TRIAL): PENETRATION / ASPIRATION SCALE (MYERS): 1 = does not enter airway 2 = enters airway/above vocal folds/ejected 3 = enters airway/above vocal folds/not ejected 4 = enters airway/contacts vocal folds/ejected 5 = enters airway/contacts vocal folds/not ejected 6 = enters airway/below vocal folds/ejected 7 = enters airway/below vocal folds/not ejected despite effort 8 = enters airway/below vocal folds/no effort VIDEOFLOROSCOPIC SCALE SCORE (MYERS): Grade I = aspiration of material that has penetrated into the laryngeal vestibule, intact cough reflex Grade II = aspiration < 10 % of the bolus, intact cough reflex Grade III = aspiration of < 10 % of the bolus, reduced cough reflex or aspiration of > 10 % of the bolus, intact cough reflex Grade IV = aspiration of > 10 % of the bolus, reduced cough reflex Penetration-Aspiration Scale Score Thin Liquid via teaspoon: Result: 8= enters airway/below vocal folds/no effort Comment: Delayed throat clear ~8 seconds after the swallow had completed was somewhat effective in clearing laryngeal vestibule; however, aspirated barium remained in trachea. Thin Liquid via teaspoon Effortful swallow: Result: 5= enters airways/contacts vocal folds/not ejected [place] Thick Liquid via teaspoon: Result: 2= enter airway/above vocal folds/ejected Honey Thick Liquid via small single sip: cup: Result: 1= does not enter airway Pudding via teaspoon: Result: 1= does not enter airway Comment: Esophageal screen - Complete clearance. 07/27 Cookie: Result: 1= does not enter airway Comment: Esophageal screen - Mild retention in lower esophagus w/ min retrograde flow. [place] Thick Liquid via teaspoon Trial 2: Result: 2= enter airway/above vocal folds/ejected [place] Thick Liquid via large single sip: cup: Result: 2= enter airway/above vocal folds/ejected [place] Thick Liquid via small single sip: cup: Result: 1= does not enter airway Comment: Esophageal screen - Complete clearance of this trial and previous trial of cookie coated in barium pudding. Oral Phase Labial Seal: Interlabial escape, no progression to anterior lip Tongue Control During Bolus Hold: Posterior escape of less than half of bolus Bolus Preparation/Mastication: Slow prolonged chewing/mashing with complete recollection Bolus Transport/Lingual Motion: Slowed tongue motion Oral Residue: Residue collection on oral structures Pharyngeal Phase Initiation of Pharyngeal Swallow: Bolus head in pyriforms (thin barium on vocal folds at swallow onset) Soft Palate Elevation: Trace column of contrast/air between soft palate and pharyngeal wall Laryngeal Elevation: Partial superior movement thyroid cart/partial apprx aryt-epig petiole Anterior Hyoid Excursion: Partial anterior movement (on second swallow of thin by tsp; otherwise, complete inversion) Epiglottic Movement: Partial inversion (on second swallow of thin by tsp; otherwise, complete inversion) Laryngeal Vestibule Closure at Height of Swallow: Incomplete; narrow column of air/contrast in laryngeal vestibule Pharyngeal Stripping Wave: Present - diminished Pharyngoesophageal Segment Opening: Parital distension and partial duration; parital obstruction of flow (trace retention of barium in UES) Tongue Base Retraction: Narrow column of contrast between tongue base & post. pharyngeal wall Pharyngeal Residue: Collection of residue within or on pharyngeal structures Esophageal Phase Esophageal Clearance: Esophageal retention w/ retrograde flow below pharyngoesophageal seg. Diagnosis/Impression Diagnosis: Mild-moderate oropharyngeal dysphagia R13.12 Impression: The oral phase is primarily marked by... -Greatly improved lip seal as compared to previous study. -Premature posterior loss of thin liquids via tsp to the vocal folds prior to swallow onset resulting in aspiration during the swallow. -Slowed and delayed tongue motion for A-P transport. -Slowed, but complete mastication of 1/4 cookie. Piecemeal deglutition. The pharyngeal phase is primarily marked by... -Mild-moderate pharyngeal residue due to decreased tongue base retraction, pharyngeal stripping wave, and UES opening/duration most notable w/ cookie. Only mild pudding residue as compared to >50% of pudding remaining in throat after MBSS on 05/16/24. -Decreased airway closure during the swallow due to decreased anterior hyoid excursion, laryngeal elevation, and inconsistent epiglottic inversion (epiglottis inverted fully on all trials, but one - thin by tsp, second swallow). -SILENT aspiration of thin liquids via tsp. See PAS scoring above for full details re: laryngeal penetration and aspiration. The esophageal phase is primarily marked by... -Mild retention of cookie in lower esophagus w/ min retrograde flow, which fully cleared w/ mildly thick liquid wash. Recommendations Diet: Mechanical Soft Textures (Soft and Bite Size - IDDSI Level 6) and Thin Liquids Compensatory Strategies: Small Bites (chew thoroughly), Small Sips, Slow Rate, Alternate bites/solids and sips/liquids, Sitting upright and Remain sitting upright for 30 minutes after PO intake Supervision: 1:1 Close Supervision Recommend Repeat Modified Barium Swallow: Yes (2-4 weeks after continued oropharyngeal strengthening to consider diet advancement of liquids due to silent nature of aspiration of thin liquids) Need for Skilled Speech Therapy Services: Yes Comment: Pt is likely discharging to SNF today. Will recommend ST at next level of care for the following: -Ongoing assessment of diet tolerance w/ close monitoring of respiratory status. -Training in strategies to decrease risk for aspiration. -Training in oropharyngeal exercises (consider lingual resistance, Tameka, Nic, effortful). -Implementation of [place] Free Water Protocol if deemed appropriate by treating STORE LOSS PREVENTION MANAGER. -Repeat MBSS to consider diet advancement of liquids due to silent aspiration of thin liquids. Education Completed: 1. Described result of evaluation. Status Active ST Patient: Active Contact Information [facility] Speech Therapy:: Nusrat Ansari M.A. [facility]-STORE LOSS PREVENTION MANAGER? Speech-Language Pathologist?? [facility] [address] [place] [address]? [email or web address]?? [phone]
--- NOTE | 2024-05-21 15:39 | CASEMGMT ---
Addendum entered by Aminta Handley 05/21/24 15:43: Speech Therapy printed out their diet recommendations. SW attached the recommendations to the transfer to extended care. Aminta DOMINGUEZ Original Note: Patient is going to be discharged to [facility] today. 7000 completed in HENS. Plan: d/c to [facility] under skilled level of care on a convalescent stay. Physicians will transport via cot. Aminta DOMINGUEZ
--- NOTE | 2024-05-21 15:46 | DS.PCM_ITS ---
Providers Date of Admission: 05/08/24 Date of Discharge: 05/21/24 Primary Care Physician: Dr. Quique Mims MD Consultations 05/08/24 16:29 Consult: Urology Routine Consulting Provider: Kevin Wolfe Reason for Consult: left hydro and pyelo from 2 mm UPJ EMERGENT Consult: No MD Notified: Yes Date Notified: 05/08/24 Time Notified: 16:28 Method of Notification: ED Physician Initiated 05/08/24 21:02 Consult: Infectious Disease Routine Consulting Provider: Richard Macedo Reason for Consult: Sepsis, pyelonephritis EMERGENT Consult: No MD Notified: Yes Date Notified: 05/09/24 Time Notified: 06:51 Method of Notification: Answering Service Consult: Contact Center Team Lead / Pulmonary Medicine Routine Consulting Provider: Intensivists/Pulmonary Med Reason for Consult: Sepsis, encephalopathic, pyelo EMERGENT Consult: No MD Notified: Yes Date Notified: 05/08/24 Time Notified: 21:03 Method of Notification: Text 05/09/24 00:03 Consult: Cardiology Routine Consulting Provider: Bryce Bender Reason for Consult: NSTEMI EMERGENT Consult: No Notified: Yes Date Notified: 05/09/24 Time Notified: 00:03 Method of Notification: Text 05/11/24 07:10 Consult: General Surgery Routine Consulting Provider: Promise Bond Reason for Consult: sepsis, dilated common bile duct, suspect gallbladder etiology EMERGENT Consult: No Notified: Yes Date Notified: 05/11/24 Time Notified: 07:10 Method of Notification: Text Reason For Visit: LEFT HYDRONEPHRITIS AND PYELONEPHTIIS Diagnosis Discharge Diagnosis (1) Septic shock: Status: Acute Code(s): A41.9 - Sepsis, unspecified organism; R65.21 - Severe sepsis with septic shock (2) History of ovarian cancer: Status: Acute Code(s): Z85.43 - Personal history of malignant neoplasm of ovary (3) Hydronephrosis concurrent with and due to calculi of kidney and ureter: Status: Acute Code(s): N13.2 - Hydronephrosis with renal and ureteral calculous obstruction (4) Bacteremia due to Gram-negative bacteria: Status: Acute Code(s): R78.81 - Bacteremia Plan #Septic shock due to E coli bacteremia * due to UTI with pyelonephritis and left sided hydronephrosis * Had a left ureteral stent inserted by urology on 05/09/2024. * Initially required multiple pressors but now weaned off of all of them and transferred out of the ICU. On IV ceftriaxone. * ID on board. To follow-up with urology on outpatient basis. #Acute hypoxic respiratory failure * Had a CODE BLUE called in the onset of admission which was changed to rapid response. Had to be intubated for airway protection. * Now subsequently extubated. * had modified barium swallow and now on puree gamal thick liquid diet as per speech recommendatioins * #Dysphagia: as above. Modified barium swallow done on 05/16/2024 showed moderate severe oropharyngeal dysphagia. #Thrombocytopenia:improving. platelets are 146 today. Will continue to monitor #A-fib: Now rate controlled. On p.o. amiodarone and metoprolol as well as digoxin. On Eliquis. #ROSANA on CKD stage IIIa * Resolved. Creatinine is back down to her baseline. Will monitor. #Benign essential hypertension: On lisinopril and metoprolol. Also on hydrochlorothiazide. Also on amlodipine. #COPD: Breathing treatments bronchodilators. Not in Exacerbation #Type 2 diabetes mellitus * On Lantus 14 units daily. * Insulin Sliding scale. Accu-Cheks ACHS. A1c on admission was 6.3. #Ovarian cancer: On Avastin. Follow-up with [facility] oncology on outpatient basis #Morbid obesity: BMI is 40.4. Complicates acute care expected prognosis. DVT prophylaxis: On Eliquis Medications at Discharge Home Medications compress.stocking,knee,reg,lrg #2 ea 05/06/19 lancing device #1 ea 12/29/20 docusate sodium 100 mg capsule (Colace) 100 mg PO BID PRN Constipation 05/04/22 albuterol sulfate 90 mcg/actuation aerosol inhaler (Ventolin HFA) 1 inh inhalation ONCE PRN SOB 05/23/22 loperamide 2 mg tablet 2 mg PO Q6H PRN Diarrhea 06/27/22 multivitamin 1 tab PO DAILY 11/25/22 hydrochlorothiazide 25 mg tablet 25 mg PO DAILY #90 tabs 03/29/23 ibandronate 150 mg tablet 150 mg PO QMONTH #14 tabs 06/09/23 spironolactone 25 mg tablet 25 mg PO DAILY #90 tabs 10/06/23 doxazosin 2 mg tablet 2 mg PO QHS #30 tabs 10/23/23 bevacizumab 25 mg/mL intravenous solution (Avastin) mg intravitreal MONTHLY CHEMO 11/24/23 buspirone 10 mg tablet 20 mg (2 x 10 mg) PO TID 3 months #540 TABLETS 12/13/23 fluticasone 500 mcg-salmeterol 50 mcg/dose blistr powdr for inhalation (Wixela Inhub) 1 inh inhalation BID #3 ea 02/01/24 ezetimibe 10 mg tablet (Zetia) 10 mg PO QDAY cholesterol #90 tabs 02/06/24 pantoprazole 40 mg tablet,delayed release 40 mg PO BID GERD #180 tabs 03/12/24 magnesium oxide 400 mg PO DAILY supplement 03/22/24 metformin 500 mg tablet 500 mg PO BID #180 tabs 03/29/24 oxybutynin chloride 10 mg tablet,extended release 24 hr 10 mg PO DAILY #90 tabs 04/15/24 apixaban 5 mg tablet (Eliquis) 5 mg PO BID #180 tabs 04/22/24 fenofibrate micronized 134 mg capsule 134 mg PO QPM #90 caps 04/25/24 lisinopril 20 mg tablet 20 mg PO BID #200 TABLETS 04/30/24 cholecalciferol (vitamin D3) 1,250 mcg (50,000 unit) tablet 50,000 unit PO FR supplement 05/08/24 duloxetine 60 mg capsule,delayed release 60 mg PO DAILY #90 caps 05/08/24 lorazepam 0.5 mg tablet (Ativan) 0.5 mg PO BID PRN Anxiety #30 tabs 05/08/24 amiodarone 200 mg tablet 200 mg PO BID #60 tabs 05/21/24 amlodipine 5 mg tablet 5 mg PO DAILY #30 tabs 05/21/24 digoxin 125 mcg (0.125 mg) tablet 125 mcg PO DAILY #30 tabs 05/21/24 insulin glargine-yfgn 100 unit/mL (3 mL) subcutaneous pen 14 unit (0.14 mL) subcut DAILY #15 mL 05/21/24 metoprolol tartrate 100 mg tablet 100 mg PO BID #60 tabs 05/21/24 Hospital Course Operations None Procedures - (ureteral stent insertion) Summary of Care Provided Minutes Spent on Discharge: 57 Hospital Course: Patient is a 78-year-old female with past medical history as outlined was admitted to the ED on 05/08/2024 with complaint of intermittent left flank pain which started the night before admission. His symptoms worsened on the day of admission with assisted chills and shivering and dry heaving. She denied any burning with urination or frequency though she did have chronic urinary incontinence. Patient did have a history of ovarian cancer and was on Avastin for that. On admission in the ED she was not febrile but blood pressure was elevated. She was not hypoxic, tachycardic or tachypneic. WBC was 5.1. Urinalysis done showed no evidence of UTI. Creatinine was 1.46. CT of the abdomen and pelvis showed mild left hydronephrosis with extensive perinephric stranding likely due to 2 mm stone in the proximal left ureter as well as superimposed pyelonephritis could not be excluded. She was initially admitted to the floor to be managed for left-sided pyelonephritis with mild hydronephrosis due to nonobstructive proximal left ureteric stone as well as ROSANA on CKD stage III. Hospital course was complicated by a CODE BLUE being called with patient being emergently intubated. Urology was consulted and patient was emergently taken for cystoscopy with left ureteric stent insertion. She developed septic shock and was also intubated to protect her airway. Patient required up to 3 pressors. Critical care was consulted. Patient had a prolonged and protracted hospital course. ID was also consulted. Patient also developed non-STEMI as well as A-fib with RVR. She was placed on heparin drip. Patient was placed on broad-spectrum antibiotics. 2D echo showed EF of 65% with no regional motion abnormalities and moderate left atrial enlargement. Troponin elevation was thought to be due to demand ischemia from septic shock. Her Eliquis that she had been on for history of A-fib was held and as stated she was placed on heparin drip. Antibiotics were broadened to meropenem, vancomycin and micafungin due to sputum cultures growing Lenora. Patient completed a course of antibiotics. She was eventually extubated and transferred out of the ICU to the regular floor. Due to her A-fib she was placed on p.o. amiodarone, p.o. metoprolol and p.o. digoxin and her Eliquis was resumed. Speech therapy reviewed patient and recommended the modified Honey thick diet based on dysphagia. Patient was deemed as needing skilled care and was discharged to senior living facility on 05/21/2024. She is to follow up with her PCP within 1 to 2 weeks. Patient was seen and examined prior to discharge. She had no active complaints and had an uneventful. Symptoms otherwise negative. Labs and vitals reviewed. Home medication reviewed and reconciled. Physical Exam Const alert, oriented x3 and no apparent distress Constitutional Narrative: obese, frail General Appearance: cooperative and comfortable Orientation / Consciousness: awake and lethargic Exam Limitations: no limitations HEENT normocephalic, head/scalp atraumatic, hearing grossly normal bilaterally and moist oral mucous membranes Mouth: oral and palatal mucosa normal Eyes PERRL, EOMs intact bilaterally and conjunctivae normal Neck no lymphadenopathy, supple and no JVD Lymph Lymphatic: no lymphadenopathy noted and no lymphedema noted Resp normal respiratory effort, normal air movement, no retractions, no use of accessory muscles and clear to auscultation bilaterally Effort and Inspection: tachypneic Auscultation: Negative for crackles, rhonchi or wheezes Cardio regular rate, regular rhythm, S1 normal heart sound, S2 normal heart sound, no murmurs, no rub, no gallops and no clicks GI normal to inspection, nondistended, normoactive bowel sounds, soft to palpation, non-tender and non-distended GI Narrative: obese abdomen Extremity normal capillary refill, no clubbing, cyanosis or edema and no calf tenderness General Extremity: no tenderness to palpation of joints or extremities Skin no rashes or lesions noted General Skin Exam: no breakdown Neuro oriented x3, CN's II-XII intact bilaterally, moves all extremities, no focal motor deficits, no sensory deficits noted and deep tendon reflexes 2+ bilaterally Sensorium / Orientation: awake and alert Motor Exam: strength 5/5 throughout and general weakness Psych thought process normal, cooperative and affect normal Appearance: appropriate Weight / BMI Weight Weight: 218 lb 11.177 oz Body Mass Index (BMI) 39.9 ABG / Lab / Microbiology Data 05/21/24 06:41 05/21/24 06:41 Laboratory: Laboratory Results - last 24 hr 05/20/24 17:02: POC Glucose 122 H 05/20/24 20:03: POC Glucose 149 H 05/21/24 06:19: POC Glucose 123 H 05/21/24 06:41: WBC 10.1, RBC 4.96, Hgb 14.0, Hct 44.0, MCV 88.7, MCH 28.2, MCHC 31.8 L, RDW Std Deviation 48.6 H, RDW Coeff of Nabor 17.4 H, Plt Count 187, MPV 12.4 H, Immature Gran % (Auto) 0.600, Neut % (Auto) 77.4 H, Lymph % (Auto) 12.0 L, [place] % (Auto) 8.0, Eos % (Auto) 1.3, Baso % (Auto) 0.7, Absolute Neuts (auto) 7.8 H, Absolute Lymphs (auto) 1.21, Nucleated RBC % 0, Sodium 142, Potassium 3.4 L, Chloride 107, Carbon Dioxide 26.0, Anion Gap 9, BUN 44 H, Creatinine 1.03 H, Estim Creat Clear Calc 51.16, Est GFR (MDRD) Af Amer 67, Est GFR (MDRD) Non-Af 55 L, BUN/Creatinine Ratio 42.7 H, Glucose 120 H, Calcium 8.7, Digoxin 0.90 05/21/24 11:51: POC Glucose 185 H Microbiology: Microbiology 05/12/24 13:00 Blood Culture (Wb) - Left Wrist Blood Culture - Final No growth in 5 days. 05/12/24 12:50 Blood Culture (Wb) - Port Blood Culture - Final No growth in 5 days. 05/12/24 13:00 Sputum, Induced/Lukens Gram Stain - Final 05/12/24 13:00 Sputum, Induced/Lukens Respiratory Culture - Final Presumptive C albicans 05/08/24 20:05 Blood Culture (Wb) - Port Blood Culture - Final No growth in 5 days. 05/08/24 22:40 Blood Culture (Wb) - Line Draw Blood Culture - Final No growth in 5 days. 05/09/24 02:02 Sputum, Induced/Lukens Gram Stain - Final 05/09/24 02:02 Sputum, Induced/Lukens Respiratory Culture - Final Presumptive C albicans 05/09/24 13:00 Urine Catheter - Bruno Urine Culture - Final Culture exhibits no growth. 05/08/24 13:50 Urine, Clean Catch Urine Culture - Final Presumptive E. coli 05/08/24 13:25 Blood Culture (Wb) - Anticubital Left Blood Culture - Final Escherichia coli 05/09/24 01:00 Stool Enteric Bacteriology - Final 05/09/24 01:00 Stool Clostridioides difficile (PCR) - Final 05/08/24 13:25 Mucosa - Nose SARS-CoV-2, Influenza & RSV (PCR) - Final D/C Instructions Discharge Diet: Low fat / Low cholesterol Discharge Activity: Return to Normal Activity Weight Bearing Status: Weight bearing as tolerated Call your doctor if you observe: Fever of 101 or Higher, Shortness of breath, Dizziness, Swelling in the ankles and Chest pain Meaningful Use Info Meaningful Use Meaningful Use Diagnoses (Choose all that apply): None applicable Ischemic Stroke Statin Dosing Therapy Reference: STATIN DOSE THERAPY REFERENCE: * Patients > 75 years receive moderate or high dose statin therapy. * Patients 75 years or YOUNGER should receive HIGH intensity statin dose unless contraindicated. You will be required to document reason for non-treatment if statin daily dose does not meet guidelines. HIGH DOSE STATIN THERAPY DAILY Atorvastatin > than or = to 40 mg Rosuvastatin > than or = to 20 mg Amlodipine + Atorvastatin > than or = to 2.5/40 mg Ezetimibe + Simvastatin 10/80 mg Simvastatin 80mg Discharge Plan Admission Admit Date/Time: 05/08/24 16:26 Primary Reason for Your Visit: septic shock, E coli bacteremia, Acute hypoxic respiratory failure Attending Provider: Li Valverde Primary Care Provider: Quique Mims Consulting Providers: King Watkins; Li Valverde; Bryce Bender; Promise Bond; Richard Macedo; Roldan Henson; Jonn Fields; Arya Robertson; Iker Braga; Wilbur Lopez; Arnie Wood; Iman Aldridge; Newton José; Erensto Martin; Kimberlee Ruano; Yaneth Padron; Magdiel Fernandez; Baldemar Mckinley; Pramod Luque; Jhony Unger; Francisco Dubois; Dereck Vargas; Kevin Wolfe; Beatrice Aguilar Instructions Patient Instructions: ED Bacteremia, Suspected (Adult) Discharge Orders/Prescriptions Prescriptions: New metoprolol tartrate 100 mg Tablet 100 mg PO BID Qty: 60 2RF amiodarone 200 mg Tablet 200 mg PO BID Qty: 60 2RF amlodipine 5 mg Tablet 5 mg PO DAILY Qty: 30 2RF digoxin 125 mcg (0.125 mg) Tablet 125 mcg PO DAILY Qty: 30 2RF insulin glargine-yfgn 100 unit/mL (3 mL) Insulin Pen 14 unit subcut DAILY Qty: 15 2RF Continued (DME) compress.stocking,knee,reg,lrg Misc See Rx Instructions .ROUTE .MEDSUPPLY Qty: 2 1RF Rx Instructions: wear daily for venous insufficiency 20-30 mmHg magnesium oxide 400 mg magnesium capsule 400 mg PO DAILY loperamide 2 mg tablet 2 mg PO Q6H PRN (Reason: Diarrhea) albuterol sulfate [Ventolin HFA] 90 mcg/actuation HFA aerosol inhaler 1 inh inhalation ONCE PRN (Reason: SOB) multivitamin Tablet 1 tab PO DAILY ibandronate 150 mg tablet 150 mg PO QMONTH Qty: 14 2RF Patient Comments: PT TAKES ON OF EVERY MONTH hydrochlorothiazide 25 mg tablet 25 mg PO DAILY Qty: 90 3RF Avastin 25 mg/mL solution intravitreal MONTHLY Patient Comments: scheduled for tomorrow, but it has been cancelled. oxybutynin chloride 10 mg tablet extended release 24hr 10 mg PO DAILY Qty: 90 1RF docusate sodium [Colace] 100 mg Capsule 100 mg PO BID PRN (Reason: Constipation) cholecalciferol (vitamin D3) 1,250 mcg (50,000 unit) tablet 50,000 unit PO FR (DME) lancing device Misc See Rx Instructions .ROUTE .MEDSUPPLY Qty: 1 0RF Rx Instructions: As directed spironolactone 25 mg tablet 25 mg PO DAILY Qty: 90 3RF doxazosin 2 mg tablet 2 mg PO QHS Qty: 30 11RF buspirone 10 mg tablet 20 mg PO TID 90 Days Qty: 540 1RF fluticasone propion-salmeterol [Wixela Inhub] 500-50 mcg/dose blister with device 1 inh inhalation BID Qty: 3 3RF ezetimibe [Zetia] 10 mg tablet 10 mg PO QDAY Qty: 90 2RF pantoprazole 40 mg tablet,delayed release (/EC) 40 mg PO BID Qty: 180 5RF metformin 500 mg tablet 500 mg PO BID Qty: 180 1RF Eliquis 5 mg tablet 5 mg PO BID Qty: 180 3RF fenofibrate micronized 134 mg capsule 134 mg PO QPM Qty: 90 3RF lisinopril 20 mg tablet 20 mg PO BID Qty: 200 2RF lorazepam [Ativan] 0.5 mg tablet 0.5 mg PO BID PRN (Reason: Anxiety) Qty: 30 0RF Patient Comments: ran out in April duloxetine 60 mg capsule,delayed release(DR/EC) 60 mg PO DAILY Qty: 90 3RF Discontinued furosemide 40 mg tablet 20 mg PO PRN amlodipine 5 mg tablet 5 mg PO BID Qty: 180 3RF sotalol 120 mg tablet 120 mg PO DAILY Qty: 180 3RF Referrals / Follow Up: Quique Mims MD [Primary Care Provider] - Within 1 Week Disposition Disposition (needs filled in before D/C Order can be placed): Senior Living Facility Charges/Coding Visit Charges Inpatient E&M: 22715 Disch Hosp >30min
--- NOTE | 2024-05-21 16:07 | CASEMGMT ---
Discharge Planning Discharge orders, signed med list, and transport time sent to [facility] via [facility]. Physicians will transport patient by cot at 6:30p. Nursing, SW, patient, and her daughter (Olivia) updated. Debbie Da Silva DC Planning Asst.
[2024-05-21 17:29] LABS: Bedside Glucose 119 mg/dL (74-106)
[2024-05-21] MEDS: 0.9% Saline Lock 10 ML Syringe IV (18:46)
[2024-05-21] MEDS: Doxazosin 4 MG Tablet 2 MG PO (19:54)
[2024-05-21] MEDS: Fenofibrate 145 MG Tablet PO (19:56)
== END 2024-05-21 21:37 | disposition skilled nursing facility (03) | DRG 853 ==
LOC: ED 16:15 → MS3 16:50 → ICU 20:44 → PCU 05-17 18:09
PROVIDERS: Anesthesiology; Family Medicine; Internal Medicine; Internal Medicine Cardiovascular Disease; Internal Medicine Pulmonary Disease; Urology; Admitting Provider Internal Medicine; Emergency Provider Emergency Medicine; PCP Internal Medicine; Visit Provider Student in an Organized Health Care Education/Training Program
PROC: (CPT 52332; principal; 2024-05-09 06:30)
DX: A41.51 Sepsis due to Escherichia coli [E. coli] (principal); J96.01 Acute respiratory failure with hypoxia; K72.00 Acute and subacute hepatic failure without coma; N17.0 Acute kidney failure with tubular necrosis; J96.02 Acute respiratory failure with hypercapnia; R65.21 Severe sepsis with septic shock; G92.8 Other toxic encephalopathy; G93.41 Metabolic encephalopathy; I21.4 Non-ST elevation (NSTEMI) myocardial infarction; C56.9 Malignant neoplasm of unspecified ovary; I13.0 Hypertensive heart and chronic kidney disease with heart failure and stage 1 through stage 4 chronic kidney disease, or unspecified chronic kidney disease; Z68.42 Body mass index [BMI] 45.0-49.9, adult; I50.32 Chronic diastolic (congestive) heart failure; E87.20 Acidosis, unspecified; I24.89 Other forms of acute ischemic heart disease; N10 Acute pyelonephritis; N13.2 Hydronephrosis with renal and ureteral calculous obstruction; R78.81 Bacteremia; N13.6 Pyonephrosis; J44.9 Chronic obstructive pulmonary disease, unspecified; N18.30 Chronic kidney disease, stage 3 unspecified; E11.22 Type 2 diabetes mellitus with diabetic chronic kidney disease; F32.A Depression, unspecified; D69.6 Thrombocytopenia, unspecified; I48.0 Paroxysmal atrial fibrillation; D72.823 Leukemoid reaction; E66.01 Morbid (severe) obesity due to excess calories; K58.9 Irritable bowel syndrome, unspecified; E78.5 Hyperlipidemia, unspecified; G47.33 Obstructive sleep apnea (adult) (pediatric); I25.10 Atherosclerotic heart disease of native coronary artery without angina pectoris; F41.9 Anxiety disorder, unspecified; Z79.4 Long term (current) use of insulin; E87.6 Hypokalemia; N18.31 Chronic kidney disease, stage 3a; E83.42 Hypomagnesemia; Z51.5 Encounter for palliative care; Z79.01 Long term (current) use of anticoagulants; Z79.84 Long term (current) use of oral hypoglycemic drugs; N16 Renal tubulo-interstitial disorders in diseases classified elsewhere; Z79.51 Long term (current) use of inhaled steroids; G89.3 Neoplasm related pain (acute) (chronic); Z90.710 Acquired absence of both cervix and uterus; Z66 Do not resuscitate; Z79.891 Long term (current) use of opiate analgesic; Z79.2 Long term (current) use of antibiotics; R13.10 Dysphagia, unspecified; M81.0 Age-related osteoporosis without current pathological fracture
CPT/HCPCS: 31500; 31720; 36415; 36600; 36620; 70450; 71045; 74018; 74177; 74230; 76000; 76700; 80048; 80053; 80061; 80162; 80307; 81001; 82140; 82550; 82803; 82962; 83036; 83605; 83735; 84100; 84478; 84484; 85025; 85027; 85610; 85730; 87040; 87070; 87086; 87088; 87186; 87205; 87493; 87506; 87631; 92526; 92611; 93005; 93306; 94002; 94003; 94640; 94660; 94668; 94762; 97110; 97163; 97166; 97530; 97535; 97802; 97803; 99252; 99285; J2185; J7040; J7050; J7120; P9047; P9612; Q9957; Q9967; A4216; C1769; C2617; C8929; G0463; J0696; J1940; J2405; J3490

== ENCOUNTER → 2024-07-01 | Outpatient (REF) | payer MEDICARE, SELFPAY ==
[2024-07-01 08:44] LABS: Digoxin Level 1.75 ng/mL (0.80-2.00)
== END ==
LOC: OLS.SW 04:00
PROVIDERS: PCP Internal Medicine; Referring Provider Internal Medicine; Visit Provider Internal Medicine
DX: Z79.899 Other long term (current) drug therapy (principal)
CPT/HCPCS: 36415; 80162

== ENCOUNTER → 2024-07-10 | Outpatient (CLI) | payer MEDICARE, SELFPAY ==
[2024-07-10 13:13] LABS: Mucous, Urine 0 SEEN /hpf (<or=2+)
[2024-07-10 15:56] LABS: Color, Urine Yellow (Yellow); Glucose, Dipstick Normal (Normal); Ketone-Dipstick Negative (Negative); Leukocyte Esterase-Dipstick Negative /ul (Negative); Nitrite-Dipstick Negative (Negative); Occult Blood-Urine 150 /ul (Negative); Protein-Dipstick Negative (Negative); Urine Bilirubin Dipstick Negative (Negative); Urine Clarity Clear (Clear); Urine Urobilinogen Normal (Normal)
[2024-07-10 19:50] LABS: Hyaline Cast 0-5 SEEN /lpf (0-5); Squamous Epithelial Cells - UA 0-5 SEEN /hpf (5-10)
[2024-07-10 19:51] LABS: Bacteria 1+ /hpf (None Seen); Red Blood Cells-Urine 25-50 SEEN /hpf (0-5); White Blood Cells 0-5 SEEN /hpf (0-5)
== END | disposition home or self-care (01) ==
LOC: LABSPEC 13:12
PROVIDERS: PCP Internal Medicine; Referring Provider Internal Medicine; Visit Provider Internal Medicine
DX: R35.0 Frequency of micturition (principal)
CPT/HCPCS: 81001; 87086; 87088

== ENCOUNTER → 2024-07-29 | Outpatient (CLI) | payer MEDICARE, SELFPAY ==
[2024-07-29 12:25] LABS: Absolute Lymphocyte Count 1.84 X10^3/uL (0.83-4.51); Absolute Neutrophil Count 5.9 X10^3/uL (2.0-7.7); Basophil# 0.03 X10^3/uL; Basophil% 0.3 % (0-1); Eosinophil# 0.05 X10^3/uL; Eosinophils% 0.6 % (0-5); Hemoglobin 13.1 g/dL (12.0-15.0); Lymphocyte # 1.84 X10^3/ul (0.83-4.51); Lymphocyte % 21.4 % (19-41); Mean Corp Hgb Conc 30.5 g/dL (32-36); Mean Corpuscular Hgb 28.2 pg (27.0-32.0); Mean Corpuscular Volume 92.5 fL (81-99); Monocyte# 0.78 X10^3/uL; Monocyte% 9.1 % (0-10); NRBC Flagged by Analyzer 0 % (0-5); Neutrophil # 5.88 X10^3/uL (2.7-7.7); Neutrophil % 68.3 % (47-70); Platelet Count 269 K/mm3 (150-450); RBC Distribution Width CV 15.4 % (11.6-14.6); RBC Distribution Width SD 51.9 fl (35.1-43.9); Red Blood Count 4.65 M/mm3 (4.2-5.4); White Blood Count 8.6 K/mm3 (4.4-11.0)
[2024-07-29 13:04] LABS: Hemoglobin A1c 5.5 % (3.8-5.6)
[2024-07-29 16:32] LABS: AST(SGOT) 24 U/L (15-37); Alanine Aminotransfer ALT/SGPT 25 U/L (13-56); Albumin, Serum 3.5 g/dL (3.2-5.0); Alkaline Phosphatase 45 U/L (45-117); Anion Gap 5 (5-15); BUN 18 mg/dL (7-18); BUN/Creat Ratio 14.8 RATIO (10-20); Calcium,Total 9.7 mg/dL (8.5-10.1); Chloride 103 mmol/L (98-107); Creatinine, Serum 1.22 mg/dL (0.55-1.02); EST Glomerular Filtration Rate 46 mL/min (>60); Est Glom Filt Rate - Afr Amer 55 mL/min (>60); Globulin 3.4 g/dL (2.2-4.2); Glucose 86 mg/dL (74-106); Magnesium 2.3 mg/dL (1.6-2.6); Potassium 5.1 mmol/L (3.5-5.1); Protein, Total 6.9 g/dL (6.4-8.2); Sodium Level 138 mmol/L (136-145)
== END | disposition home or self-care (01) ==
LOC: BIMLAB 11:23
PROVIDERS: PCP Internal Medicine; Referring Provider Internal Medicine; Visit Provider Internal Medicine
DX: I10 Essential (primary) hypertension (principal); E11.9 Type 2 diabetes mellitus without complications
CPT/HCPCS: 36415; 80053; 83036; 83735; 85025

== ENCOUNTER → 2024-08-08 | Outpatient (CLI) | payer MEDICARE, SELFPAY | END | disposition home or self-care (01) | LOC: LABSPEC 12:11 | PROVIDERS: PCP Internal Medicine; Referring Provider Physician Assistant Surgical; Visit Provider Physician Assistant Surgical | DX: R31.9 Hematuria, unspecified (principal) | CPT/HCPCS: 87086; 87088 ==

== ENCOUNTER 2024-08-28 12:05 | Day surgery (SDC) | payer MEDICARE, SELFPAY ==
--- NOTE | 2024-08-22 06:37 | PAT.ANE_ITS ---
Pre-Assessment Diagnosis/Proposed Procedure Planned Operative Procedure(s): (L) Cysto,Ureteroscopy,Laser,Stent Anesthesia History Anesthesia History - home health nurse: Anesthesia History - home health nurse Hx Hospitalization No 08/21/24 14:19 Any Problems With Anesthesia [ No 03/13/23 10:46 1 (Initial Baseline)] Any Problems With Anesthesia No 08/21/24 14:19 Cholinesterase deficiency No 08/21/24 14:19 You/Your Family Experience No 08/21/24 14:19 fever (hyperthermia) with Relationship Recent Exposure to Contagious Disease Does patient have nerve No 08/21/24 14:19 stimulator Patient instructed to have device shut off --Does patient have Pacemaker or ICD? When Was Last Pacemaker Check QUESTION #4 FULL TEXT: You/Your Family Experience fever (hyperthermia) with Anesthesia Last Oral Intake Last Oral intake: Last Oral Intake NPO since Meds taken in AM with sips of water? Meds patient instructed to take am of surgery PONV PONV - home health nurse: PONV - home health nurse Female Yes 08/21/24 14:19 HX of Motion Sickness No 08/21/24 14:19 HX of N/V After Surgery No 08/21/24 14:19 Non-Smoker Yes 08/21/24 14:19 Duration of Surgery greater No 08/21/24 14:19 than 60 minutes Number of Risk Factors 2 08/21/24 14:19 PONV Score Moderate Risk 08/21/24 14:19 Height & Weight Height & Weight: Anesthesia: Height & Weight Height 5 ft 2 in 07/29/24 10:42 Respiratory Assessment Respiratory Assessment - home health nurse: Respiratory Tract Infection Hx - home health nurse Hx Respiratory Tract Infection No 08/21/24 14:19 STOP Sleep Apnea STOP Sleep Apnea - home health nurse: STOP Sleep Apnea - home health nurse Hx Hypertension Yes: CONTROLLED ON MED 08/21/24 14:19 Hx Sleep Apnea Yes 08/21/24 14:19 CPAP Yes 08/21/24 14:19 BIPAP No 08/21/24 14:19 Do you snore loudly (louder than talking or can be heard Do you often feel tired/ fatigued/ sleepy during daytime? Has anyone observed you stop breathing during sleep? STOP Results Positive 08/21/24 14:19 QUESTION #5 FULL TEXT : Do you snore loudly (louder than talking or can be heard through closed doors)? 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 Specify any problems Hx of Preganancy in last 3 No 08/21/24 14:19 Months Nurse Filling Out Transfusion VCHRISTIN 08/21/24 14:19 & Questions: Date: 08/21/24 08/21/24 14:19 Time: 14:20 08/21/24 14:19 Patient unable to answer at this time (ie. confused, unrespo /Reproduction History /Reproductive History - home health nurse: /Reproductive Hx- home health nurse Hx Now Gestational Age (in weeks): EDC: Hx Hx Para Hx Section SAB PFSH Medical History (Updated 08/21/24 @ 14:26 by Sandy Knight) Toothache Gastric reflux History of hiatal hernia Wears glasses Cancer Arthritis History of diverticulitis Sleep apnea Shortness of breath on exertion History of echocardiogram Hypertension History of CHF (congestive heart failure) Cardiology follow-up encounter Difficulty swallowing Umbilical discharge Upper back pain on right side Cough Depression Diabetes Kidney stones Non-smoker CPAP (continuous positive airway pressure) dependence Congestive heart failure (CHF) Myocardial infarct History of cancer chemotherapy History of ovarian cancer Hydronephrosis concurrent with and due to calculi of kidney and ureter Acute left flank pain OAB (overactive bladder) Atypical chest pain Urinary frequency Breast cancer screening Grief reaction Non-rheumatic tricuspid valve insufficiency Non-rheumatic mitral regurgitation History of cardioversion (~06/28/22) Chronic atrial fibrillation with RVR Obstructive sleep apnea Chronic obstructive pulmonary disease Atrial fibrillation Depression Preop cardiovascular exam Port-A-Cath in place Ovarian cancer Pelvic mass Ascites Diarrhea Abdominal pain Flu vaccine need Vitamin D deficiency Essential hypertension Diastolic congestive heart failure Atherosclerotic heart disease of [place] coronary artery without angina pectoris Long-term use of high-risk medication SOB (shortness of breath) Pulmonary HTN Panic disorder Hiatal hernia Debility Paroxysmal atrial fibrillation with rapid ventricular response Streptococcal pneumonia Acute exacerbation of chronic obstructive pulmonary disease (COPD) Acute respiratory failure with hypoxia and hypercarbia NSTEMI (non-ST elevated myocardial infarction) Sepsis Junctional rhythm Spastic colon Morbid obesity PAF (paroxysmal atrial fibrillation) HLD (hyperlipidemia) CAD (coronary artery disease) Anxiety DM2 (diabetes mellitus, type 2) Hypokalemia Home Medications ?Medication ?Instructions ?Recorded ?Last Taken ?Type compress.stocking,knee,reg,lrg #2 ea 05/06/19 Unknown Rx lancing device #1 ea 12/29/20 Unknown Rx multivitamin 1 tab PO DAILY 11/25/22 Unkn own History ezetimibe 10 mg tablet (Zetia) 10 mg PO QDAY cholester ol #90 tabs 02/06/24 Unknown Rx magnesium oxide 400 mg PO DAILY supplement 0 03/22/24 Unknown History lisinopril 20 mg tablet 20 mg PO BID #200 TABLETS Unknown Rx duloxetine 60 mg capsule,delayed 60 mg PO DAILY #90 ca ps 05/08/24 Unknown Rx release apixaban 5 mg tablet (Eliquis) 5 mg PO BID #180 tabs 1 08/14/23 Unknown Rx aspirin 81 mg chewable tablet 81 mg PO QDAY 07/04/24 U nknown History cholecalciferol (vitamin D3) 50 50 mcg PO QDAY 4 Unknown History mcg (2,000 unit) tablet fenofibrate micronized 200 mg 200 mg PO QDAY #90 caps 07/05/24 Unknown Rx capsule metoprolol tartrate 100 mg tablet 100 mg PO BID HOLD i f BP 100 07/05/24 Unknown Rx systolic or belo or HR 55 or below #60 tabs tolterodine 2 mg tablet 2 mg PO BID #180 tabs Unknown Rx amiodarone 200 mg tablet 200 mg PO QDAY #90 tabs 06/23 04/16 Unknown Rx lorazepam 0.5 mg tablet 0.5 mg PO BID PRN agitation 07/11/24 Unknown History furosemide 40 mg tablet 40 mg PO QDAY #90 tabs 07/19 Unknown Rx albuterol sulfate 90 mcg/actuation 2 puff inhalation Q AM PRN 07/29/24 Unknown Rx aerosol inhaler (Ventolin HFA) shortness of breath or wheezing #8.5 grams doxazosin 2 mg tablet 2 mg PO QHS #90 tabs 5 Unknown Rx fluticasone 100 mcg-salmeterol 50 1 inh inhalation BID 3 months #60 07/29/24 Unknown Rx mcg/dose blistr powdr for ea inhalation (Wixela Inhub) glimepiride 2 mg tablet 2 mg PO QAM #30 tabs 5 Unknown Rx nystatin 100,000 unit/gram topical 1 applic topical TI D 3 months #60 07/29/24 Unknown Rx powder (Klayesta) grams digoxin 125 mcg (0.125 mg) tablet 125 mcg PO DAILY HOL D if HR 55 or 08/07/24 Unknown Rx below #90 tabs nystatin 100,000 unit/mL oral 1 ml PO TID 5 days #60 m L 08/21/24 Unknown Rx suspension Allergy/AdvReac Type Severity Reaction Status Date / Time amoxicillin Allergy Severe hives Verified 08/21/24 13:55 chlorhexidine Allergy Unknown red skin Verified 08/21/24 13:55 morphine Allergy Unknown headaches Verified 08/21/24 13:55 labetalol Allergy Unknown Verified 08/21/24 13:55 pitavastatin (From Livalo) Allergy Other Verified 08/21/24 13:55 simvastatin (From Zocor) Allergy Other Verified 08/21/24 13:55 atorvastatin (From Lipitor) AdvReac Unknown myalgias Verified 08/21/24 13:55 budesonide (From Symbicort) AdvReac Other Verified 08/21/24 13:55 formoterol (From Symbicort) AdvReac Other Verified 08/21/24 13:55 hydrocodone (From Vicodin) AdvReac Other Verified 08/21/24 13:55 Tzwsvkj-EKV-DdK Reductase AdvReac Other Verified 08/21/24 13:55 Inhibitor (Dgztmvt-Adq-Cln Reductase Inhibitor) Family History Mother Cancer leukemia Father Respiratory disease Grandfather Myocardial infarction Grandmother Myocardial infarction Son Diabetes Surgical History (Updated 08/21/24 @ 14:18 by Sandy Knight) Hx of cataract extraction Hx of surgical procedure Hx of cystoscopy History of urethral stent Hx of prior ablation treatment Status post catheter ablation of atrial fibrillation History of hysterectomy History of exploratory laparotomy History of cataract surgery History of tonsillectomy and adenoidectomy History of surgery on right wrist History of colonoscopy Social History household members: spouse and children Smoking Status: Never smoker alcohol intake: never substance use type: does not use caffeine: Yes Type: coffee Number of servings: 1 what type of physical activity do you participate in: none seatbelt use: always do you feel safe at home: Yes Audit: Pertinent Findings Pertinent Findings EKG Perinent findings: May 09, 2024. Atrial fibrillation with rapid ventricular response. Prolonged QT. Echo (EF%) pertinent findings: May 10, 2024. Ejection fraction is 65%. Pulmonary artery systolic pressure is 30 mmHg. There is no aortic stenosis. Consult pertinent findings: July 11, 2024. Rufino LAWSON. 1. Atherosclerotic heart disease of [place] coronary artery without angina- patient has a history of mild coronary artery disease by remote catheterization in 2017. This appears stable. No medication changes at this time. 2. Essential atjpodtmirei-vzqu-pjlhyjfzad. 3. Paroxysmal atrial fibrillation-she has been cardioverted at least twice with short term relief only. Nguyễn score is 6. Atrial fibrillation stage IIIa. Current medications on metoprolol digoxin amiodarone and Eliquis. This regimen has kept her heart rate well-controlled. Continue Eliquis for stroke prevention. Decrease amiodarone from twice daily to once a day to avoid bradycardia. Recommendation Anesthesia Recommendation Anesthesia recommendation: OPTIMIZED for anesthesia
[2024-08-28] VITALS (7 sets, daily range): BP systolic 148–172; BP diastolic 60–98; PULSE 52–62; RESP 18–20; TEMP 35.9–37.2; O2SAT 93–98; BMI 37.9
--- NOTE | 2024-08-28 10:05 | PCM.PRE.AN2 ---
ASA Classification* ASA Classification ASA Classification: 3 Assessment & Plan Anesthesia* Anesthesia Assessment Anesthesia Assessment: Discussed sedation and/or anesthesia options, risks, benefits, and alternatives with patient/parents/legal guardian/POA. Questions invited. The patient/parents/legal guardian/POA seems to understand and agrees to proceed with anesthesia plan. Reviewed the physical assessment, medical history, allergy history and patient home medications list prior to surgery/procedure/anesthetic and documented any changes. Performed airway and anesthesia risk assessments. Anesthesia Type Anesthesia Type: General Anesthesia Focused Assessment* Airway Assessment Mouth opens: >3 cm Mallampati Score: II Focused Labs Anesthesia Preop lab: CBC WBC 8.6 K/mm3 (4.4-11.0) 07/29/24 11:23 07/29/24 RBC 4.65 M/mm3 (4.2-5.4) 07/29/24 11:07/29/24 Hgb 13.1 g/dL (12.0-15.0) 07/29/24 11:23 07/29/24 Hct 43.0 % (37-47) 07/29/24 11:23 07/29/24 Plt Count 269 K/mm3 (150-450) 07/29/24 11:23 07/29/24 CHEMISTRY Potassium 5.1 mmol/L (3.5-5.1) 07/29/24 11:23 07/29/24 Sodium 138 mmol/L (136-145) 07/29/24 11:23 07/29/24 Magnesium 2.3 mg/dL (1.6-2.6) 07/29/24 11:23 07/29/24 Phosphorus 5.3 mg/dL (2.5-4.9) H 05/19/24 05:54 05/19/24 BUN 18 mg/dL (7-18) 07/29/24 11:23 07/29/24 Creatinine 1.22 mg/dL (0.55-1.02) H 07/29/24 11:23 07/29/24 Glucose 86 mg/dL (74-106) 07/29/24 11:23 07/29/24 POC Glucose 119 mg/dL (74-106) H 05/21/24 16:41 05/21/24 TSH 3.240 uIU/mL (0.358-3.740) 05/22/24 06:30 05/22/24 COAG PT 15.1 SECONDS (11.7-14.9) H 05/11/24 11:25 05/11/24 Pre-Assessment Diagnosis/Proposed Procedure Planned Operative Procedure(s): (L) Cysto,Ureteroscopy,Laser,Stent Anesthesia History Anesthesia History - home health rn: Anesthesia History - home health rn Hx Hospitalization No 08/21/24 14:19 Any Problems With Anesthesia [ No 03/13/23 10:46 1 (Initial Baseline)] Any Problems With Anesthesia No 08/21/24 14:19 Cholinesterase deficiency No 08/21/24 14:19 You/Your Family Experience No 08/21/24 14:19 fever (hyperthermia) with Relationship Recent Exposure to Contagious No 05/16/18 09:13 Disease Does patient have nerve No 08/21/24 14:19 stimulator Patient instructed to have device shut off --Does patient have Pacemaker or ICD? When Was Last Pacemaker Check QUESTION #4 FULL TEXT: You/Your Family Experience fever (hyperthermia) with Anesthesia Last Oral Intake Last Oral intake: Last Oral Intake NPO since Meds taken in AM with sips of water? Meds patient instructed to take am of surgery PONV PONV - home health rn: PONV - home health rn Female Yes 08/21/24 14:19 HX of Motion Sickness No 08/21/24 14:19 HX of N/V After Surgery No 08/21/24 14:19 Non-Smoker Yes 08/21/24 14:19 Duration of Surgery greater No 08/21/24 14:19 than 60 minutes Number of Risk Factors 2 08/21/24 14:19 PONV Score Moderate Risk 08/21/24 14:19 Height & Weight Height & Weight: Anesthesia: Height & Weight Height 5 ft 2 in 08/27/24 08:07 Weight: 95.708 kg 08/27/24 08:07 Respiratory Assessment Respiratory Assessment - home health rn: Respiratory Tract Infection Hx - home health rn Hx Respiratory Tract Infection No 08/21/24 14:19 STOP Sleep Apnea STOP Sleep Apnea - home health rn: STOP Sleep Apnea - home health rn Hx Hypertension Yes: CONTROLLED ON MED 08/21/24 14:19 Hx Sleep Apnea Yes 08/21/24 14:19 CPAP Yes 08/21/24 14:19 BIPAP No 08/21/24 14:19 Do you snore loudly (louder than talking or can be heard Do you often feel tired/ fatigued/ sleepy during daytime? Has anyone observed you stop breathing during sleep? STOP Results Positive 08/21/24 14:19 QUESTION #5 FULL TEXT : Do you snore loudly (louder than talking or can be heard through closed doors)? 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 Specify any problems Hx of Preganancy in last 3 No 08/21/24 14:19 Months Nurse Filling Out Transfusion VCHRISTIN 08/21/24 14:19 & Questions: Date: 08/21/24 08/21/24 14:19 Time: 14:20 08/21/24 14:19 Patient unable to answer at this time (ie. confused, unrespo /Reproduction History /Reproductive History - home health rn: /Reproductive Hx- home health rn Hx Now Gestational Age (in weeks): EDC: Hx Hx Para Hx Section SAB Active Medications Active Medications: Current Medications Generic Name Dose Route Start Last Admin Trade Name Freq PRN Reason Stop Dose Admin Cefazolin Sodium 2 gm/ N/A 20 mls @ 400 mls/hr 08/28/24 14:20 IV 08/28/24 14:22 PREOP ONE PFSH Medical History Toothache Gastric reflux History of hiatal hernia Wears glasses Cancer Arthritis History of diverticulitis Sleep apnea Shortness of breath on exertion History of echocardiogram Hypertension History of CHF (congestive heart failure) Cardiology follow-up encounter Difficulty swallowing Umbilical discharge Upper back pain on right side Cough Depression Diabetes Kidney stones Non-smoker CPAP (continuous positive airway pressure) dependence Congestive heart failure (CHF) Myocardial infarct History of cancer chemotherapy History of ovarian cancer Hydronephrosis concurrent with and due to calculi of kidney and ureter Acute left flank pain OAB (overactive bladder) Atypical chest pain Urinary frequency Breast cancer screening Grief reaction Non-rheumatic tricuspid valve insufficiency Non-rheumatic mitral regurgitation History of cardioversion (~06/28/22) Chronic atrial fibrillation with RVR Obstructive sleep apnea Chronic obstructive pulmonary disease Atrial fibrillation Depression Preop cardiovascular exam Port-A-Cath in place Ovarian cancer Pelvic mass Ascites Diarrhea Abdominal pain Flu vaccine need Vitamin D deficiency Essential hypertension Diastolic congestive heart failure Atherosclerotic heart disease of [place] coronary artery without angina pectoris Long-term use of high-risk medication SOB (shortness of breath) Pulmonary HTN Panic disorder Hiatal hernia Debility Paroxysmal atrial fibrillation with rapid ventricular response Streptococcal pneumonia Acute exacerbation of chronic obstructive pulmonary disease (COPD) Acute respiratory failure with hypoxia and hypercarbia NSTEMI (non-ST elevated myocardial infarction) Sepsis Junctional rhythm Spastic colon Morbid obesity PAF (paroxysmal atrial fibrillation) HLD (hyperlipidemia) CAD (coronary artery disease) Anxiety DM2 (diabetes mellitus, type 2) Hypokalemia Home Medications ?Medication ?Instructions ?Recorded ?Last Taken ?Type compress.stocking,knee,reg,lrg #2 ea 05/06/19 Unknown Rx lancing device #1 ea 12/29/20 Unknown Rx multivitamin 1 tab PO DAILY 11/25/22 Unknown History ezetimibe 10 mg tablet (Zetia) 10 mg PO QDAY cholesterol #90 tabs 02/06/24 Unknown Rx magnesium oxide 400 mg PO DAILY supplement 03/22/24 Unknown History lisinopril 20 mg tablet 20 mg PO BID #200 TABLETS 04/30/24 Unknown Rx duloxetine 60 mg capsule,delayed 60 mg PO DAILY #90 caps 05/08/24 Unknown Rx release apixaban 5 mg tablet (Eliquis) 5 mg PO BID #180 tabs 06/14/24 Unknown Rx aspirin 81 mg chewable tablet 81 mg PO QDAY 07/04/24 Unknown History cholecalciferol (vitamin D3) 50 50 mcg PO QDAY 07/04/24 Unknown History mcg (2,000 unit) tablet fenofibrate micronized 200 mg 200 mg PO QDAY #90 caps 07/05/24 Unknown Rx capsule metoprolol tartrate 100 mg tablet 100 mg PO BID HOLD if BP 100 07/05/24 Unknown Rx systolic or belo or HR 55 or below #60 tabs tolterodine 2 mg tablet 2 mg PO BID #180 tabs 07/10/24 Unknown Rx amiodarone 200 mg tablet 200 mg PO QDAY #90 tabs 07/11/24 Unknown Rx lorazepam 0.5 mg tablet 0.5 mg PO BID PRN agitation 07/11/24 Unknown History furosemide 40 mg tablet 40 mg PO QDAY #90 tabs 07/19/24 Unknown Rx albuterol sulfate 90 mcg/actuation 2 puff inhalation QAM PRN 07/29/24 Unknown Rx aerosol inhaler (Ventolin HFA) shortness of breath or wheezing #8.5 grams doxazosin 2 mg tablet 2 mg PO QHS #90 tabs 07/29/24 Unknown Rx fluticasone 100 mcg-salmeterol 50 1 inh inhalation BID 3 months #60 07/29/24 Unknown Rx mcg/dose blistr powdr for ea inhalation (Wixela Inhub) glimepiride 2 mg tablet 2 mg PO QAM #30 tabs 07/29/24 Unknown Rx nystatin 100,000 unit/gram topical 1 applic topical TID 3 months #60 07/29/24 Unknown Rx powder (Klayesta) grams digoxin 125 mcg (0.125 mg) tablet 125 mcg PO DAILY HOLD if HR 55 or 08/07/24 Unknown Rx below #90 tabs Allergy/AdvReac Type Severity Reaction Status Date / Time amoxicillin Allergy Severe hives Verified 08/21/24 13:55 chlorhexidine Allergy Unknown red skin Verified 08/21/24 13:55 morphine Allergy Unknown headaches Verified 08/21/24 13:55 labetalol Allergy Unknown Verified 08/21/24 13:55 pitavastatin (From Livalo) Allergy Other Verified 08/21/24 13:55 simvastatin (From Zocor) Allergy Other Verified 08/21/24 13:55 atorvastatin (From Lipitor) AdvReac Unknown myalgias Verified 08/21/24 13:55 budesonide (From Symbicort) AdvReac Other Verified 08/21/24 13:55 formoterol (From Symbicort) AdvReac Other Verified 08/21/24 13:55 hydrocodone (From Vicodin) AdvReac Other Verified 08/21/24 13:55 Cmneadk-YIG-UnD Reductase AdvReac Other Verified 08/21/24 13:55 Inhibitor (Lesbcpx-Tbf-Ryl Reductase Inhibitor) Family History Mother Cancer leukemia Father Respiratory disease Grandfather Myocardial infarction Grandmother Myocardial infarction Son Diabetes Surgical History Hx of cataract extraction Hx of surgical procedure Hx of cystoscopy History of urethral stent Hx of prior ablation treatment Status post catheter ablation of atrial fibrillation History of hysterectomy History of exploratory laparotomy History of cataract surgery History of tonsillectomy and adenoidectomy History of surgery on right wrist History of colonoscopy Social History household members: spouse and children Smoking Status: Never smoker alcohol intake: never substance use type: does not use caffeine: Yes Type: coffee Number of servings: 1 what type of physical activity do you participate in: none seatbelt use: always do you feel safe at home: Yes Review of Systems (Anesthesia) ROS Narrative System reviewed and no additional complaints, except as documented.
[2024-08-28] MEDS: 0.9% Normal Saline (1000mL) 1,000 ML 15 ML IV (12:48)
[2024-08-28 13:07] LABS: Bedside Glucose 79 mg/dL (74-106)
[2024-08-28] MEDS: Cefazolin 2 GM in Syringe IV (14:25)
--- NOTE | 2024-08-28 14:27 | PCM.HP.STD ---
HPI - General General Date of Service: 08/28/24 Chief Complaint: Left kidney stone HPI Narrative ANDREW VELAZQUEZ, is a 78 F who presents for laser lithotripsy of left kidney stone status post stent placement on the left side. [facility] Medical History Toothache Gastric reflux History of hiatal hernia Wears glasses Cancer Arthritis History of diverticulitis Sleep apnea Shortness of breath on exertion History of echocardiogram Hypertension History of CHF (congestive heart failure) Cardiology follow-up encounter Difficulty swallowing Umbilical discharge Upper back pain on right side Cough Depression Diabetes Kidney stones Non-smoker CPAP (continuous positive airway pressure) dependence Congestive heart failure (CHF) Myocardial infarct History of cancer chemotherapy History of ovarian cancer Hydronephrosis concurrent with and due to calculi of kidney and ureter Acute left flank pain OAB (overactive bladder) Atypical chest pain Urinary frequency Breast cancer screening Grief reaction Non-rheumatic tricuspid valve insufficiency Non-rheumatic mitral regurgitation History of cardioversion (~06/28/22) Chronic atrial fibrillation with RVR Obstructive sleep apnea Chronic obstructive pulmonary disease Atrial fibrillation Depression Preop cardiovascular exam Port-A-Cath in place Ovarian cancer Pelvic mass Ascites Diarrhea Abdominal pain Flu vaccine need Vitamin D deficiency Essential hypertension Diastolic congestive heart failure Atherosclerotic heart disease of [place] coronary artery without angina pectoris Long-term use of high-risk medication SOB (shortness of breath) Pulmonary HTN Panic disorder Hiatal hernia Debility Paroxysmal atrial fibrillation with rapid ventricular response Streptococcal pneumonia Acute exacerbation of chronic obstructive pulmonary disease (COPD) Acute respiratory failure with hypoxia and hypercarbia NSTEMI (non-ST elevated myocardial infarction) Sepsis Junctional rhythm Spastic colon Morbid obesity PAF (paroxysmal atrial fibrillation) HLD (hyperlipidemia) CAD (coronary artery disease) Anxiety DM2 (diabetes mellitus, type 2) Hypokalemia Home Medications ?Medication ?Instructions ?Recorded ?Last Taken ?Type compress.stocking,knee,reg,lrg #2 ea 05/06/19 Unknown Rx lancing device #1 ea 12/29/20 Unknown Rx multivitamin 1 tab PO DAILY 11/25/22 08/27/24 History ezetimibe 10 mg tablet (Zetia) 10 mg PO QDAY cholesterol #90 tabs 02/06/24 08/27/24 Rx magnesium oxide 400 mg PO DAILY supplement 03/22/24 08/27/24 History lisinopril 20 mg tablet 20 mg PO BID #200 TABLETS 04/30/24 08/27/24 Rx duloxetine 60 mg capsule,delayed 60 mg PO DAILY #90 caps 05/08/24 08/27/24 Rx release apixaban 5 mg tablet (Eliquis) 5 mg PO BID #180 tabs 06/14/24 08/25/24 Rx Held on 08/28/24. Instructions: Resume on 09/02/24. aspirin 81 mg chewable tablet 81 mg PO QDAY 07/04/24 08/21/24 History cholecalciferol (vitamin D3) 50 50 mcg PO QDAY 07/04/24 08/27/24 History mcg (2,000 unit) tablet fenofibrate micronized 200 mg 200 mg PO QDAY #90 caps 07/05/24 08/27/24 Rx capsule metoprolol tartrate 100 mg tablet 100 mg PO BID HOLD if BP 100 07/05/24 08/28/24 Rx systolic or belo or HR 55 or below #60 tabs tolterodine 2 mg tablet 2 mg PO BID #180 tabs 07/10/24 08/27/24 Rx amiodarone 200 mg tablet 200 mg PO QDAY #90 tabs 07/11/24 08/28/24 Rx lorazepam 0.5 mg tablet 0.5 mg PO BID PRN agitation 07/11/24 Unknown History furosemide 40 mg tablet 40 mg PO QDAY #90 tabs 07/19/24 08/27/24 Rx albuterol sulfate 90 mcg/actuation 2 puff inhalation QAM PRN 07/29/24 08/28/24 Rx aerosol inhaler (Ventolin HFA) shortness of breath or wheezing #8.5 grams doxazosin 2 mg tablet 2 mg PO QHS #90 tabs 07/29/24 08/27/24 Rx fluticasone 100 mcg-salmeterol 50 1 inh inhalation BID 3 months #60 07/29/24 08/28/24 Rx mcg/dose blistr powdr for ea inhalation (Wixela Inhub) glimepiride 2 mg tablet 2 mg PO QAM #30 tabs 07/29/24 08/27/24 Rx nystatin 100,000 unit/gram topical 1 applic topical TID 3 months #60 07/29/24 08/26/24 Rx powder (Klayesta) grams digoxin 125 mcg (0.125 mg) tablet 125 mcg PO DAILY HOLD if HR 55 or 08/07/24 08/28/24 Rx below #90 tabs Allergy/AdvReac Type Severity Reaction Status Date / Time amoxicillin Allergy Severe hives Verified 08/28/24 12:34 chlorhexidine Allergy Unknown red skin Verified 08/28/24 12:34 morphine Allergy Unknown headaches Verified 08/28/24 12:34 labetalol Allergy Unknown Verified 08/28/24 12:34 pitavastatin (From Livalo) Allergy Other Verified 08/28/24 12:34 simvastatin (From Zocor) Allergy Other Verified 08/21/24 13:55 atorvastatin (From Lipitor) AdvReac Unknown myalgias Verified 08/28/24 12:34 budesonide (From Symbicort) AdvReac Other Verified 08/28/24 12:34 formoterol (From Symbicort) AdvReac Other Verified 08/28/24 12:34 hydrocodone (From Vicodin) AdvReac Other Verified 08/28/24 12:34 Lfqqsxq-VZZ-VpO Reductase AdvReac Other Verified 08/28/24 12:34 Inhibitor (Xcbzpzu-Gmy-Xgi Reductase Inhibitor) Family History Mother Cancer leukemia Father Respiratory disease Grandfather Myocardial infarction Grandmother Myocardial infarction Son Diabetes Surgical History Hx of cataract extraction Hx of surgical procedure Hx of cystoscopy History of urethral stent Hx of prior ablation treatment Status post catheter ablation of atrial fibrillation History of hysterectomy History of exploratory laparotomy History of cataract surgery History of tonsillectomy and adenoidectomy History of surgery on right wrist History of colonoscopy Social History household members: spouse and children Smoking Status: Never smoker alcohol intake: never substance use type: does not use caffeine: Yes Type: coffee Number of servings: 1 what type of physical activity do you participate in: none seatbelt use: always do you feel safe at home: Yes Vital Signs Vital Signs Vital Signs: 08/28/24 12:37 08/28/24 12:37 Temperature 98.9 F Temperature Source Temporal Pulse Rate 52 L Respiratory Rate 20 H Respiratory Pattern Normal Blood Pressure 148/69 H Blood Pressure Mean 95 Blood Pressure Source Monitor Blood Pressure Position Semi-Fowlers Blood Pressure Location Left Arm Pulse Ox 98 Oxygen Delivery Method Room Air Weight Weight: 94 kg Body Mass Index (BMI) 37.9 Results Lab / Micro Data Labs: Laboratory Results - last 24 hr 08/28/24 12:42: POC Glucose 79
--- NOTE | 2024-08-28 14:28 | DCINST_ITS ---
Discharge Instructions Diet Discharge Diet: No restrictions DC O2, CPAP, BIPAP needs Home O2 Discharge instructions: No Dressing / Incision Discharge Activity: Return to Normal Activity and May Not Drive (while taking narcotic pain medications.) Dressing / Incision Call your doctor if you observe: Fever of 101 or Higher Follow Up Care Please Follow Up With: Kevin Wolfe MD When: Call [phone] for an appointment Test Results: Test results from this visit will be discussed in further detail at your follow- up appointment, if applicable. Discharge Plan Admission Primary Reason for Your Visit: laser stone and removal of stent Attending Provider: Kevin Wolfe Primary Care Provider: Quique Mims Instructions Print Language: Kinyarwanda Discharge Orders/Prescriptions Prescriptions: Continued (DME) compress.stocking,knee,reg,lrg Misc See Rx Instructions .ROUTE .MEDSUPPLY Qty: 2 1RF Rx Instructions: wear daily for venous insufficiency 20-30 mmHg magnesium oxide 400 mg magnesium capsule 400 mg PO DAILY multivitamin Tablet 1 tab PO DAILY aspirin 81 mg tablet,chewable 81 mg PO QDAY cholecalciferol (vitamin D3) 50 mcg (2,000 unit) tablet 50 mcg PO QDAY fluticasone propion-salmeterol [Wixela Inhub] 100-50 mcg/dose blister with device 1 inh inhalation BID 90 Days Qty: 60 3RF albuterol sulfate [Ventolin HFA] 90 mcg/actuation HFA aerosol inhaler 2 puff inhalation QAM PRN (Reason: shortness of breath or wheezing) Qty: 8.5 3RF doxazosin 2 mg tablet 2 mg PO QHS Qty: 90 1RF nystatin [Klayesta] 100,000 unit/gram powder 1 applic topical TID 90 Days Qty: 60 7RF lorazepam 0.5 mg tablet 0.5 mg PO BID PRN (Reason: agitation) amiodarone 200 mg tablet 200 mg PO QDAY Qty: 90 3RF (DME) lancing device Misc See Rx Instructions .ROUTE .MEDSUPPLY Qty: 1 0RF Rx Instructions: As directed ezetimibe [Zetia] 10 mg tablet 10 mg PO QDAY Qty: 90 2RF lisinopril 20 mg tablet 20 mg PO BID Qty: 200 2RF duloxetine 60 mg capsule,delayed release(DR/EC) 60 mg PO DAILY Qty: 90 3RF fenofibrate micronized 200 mg capsule 200 mg PO QDAY Qty: 90 3RF metoprolol tartrate 100 mg tablet 100 mg PO BID Qty: 60 2RF tolterodine 2 mg tablet 2 mg PO BID Qty: 180 1RF furosemide 40 mg tablet 40 mg PO QDAY Qty: 90 1RF glimepiride 2 mg tablet 2 mg PO QAM Qty: 30 1RF Rx Instructions: administer with breakfast digoxin 125 mcg (0.125 mg) tablet 125 mcg PO DAILY Qty: 90 3RF Held Eliquis 5 mg tablet 5 mg PO BID Qty: 180 3RF Hold Instructions: Resume on 09/02/24. Patient Comments: STOP 3 DAYS PRIOR TO PROCEDURE Referrals / Follow Up: Quique Mims MD [Primary Care Provider] - Kevin Wolfe MD [Med Staff - Active Staff] - Disposition Disposition (needs filled in before D/C Order can be placed): Home, Self Care
[2024-08-28] MEDS: WATER IV (14:40)
[2024-08-28] MEDS: DEXTROSE 5% IV (14:40)
[2024-08-28 14:49] LABS: Bedside Glucose 70 mg/dL (74-106)
--- NOTE | 2024-08-28 14:52 | PCM.OPRPT ---
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 Type of Anesthesia: General RN Documented Start/Stop Times: Operation Date: 08/28/24 14:10 Case Time Into Pre-Op 08/28/24 12:16 Out of Pre-Op 08/28/24 14:10 Anesthesia Start 08/28/24 14:16 Into Room 08/28/24 14:16 Procedure Start Time: 14:15 Procedure Stop Time: 14:52 Select all DRAINS/GRAFTS/IMPLANTS that apply: None Estimated Blood Loss: 0 Specimen collected: No Description of surgery: This is a 78-year-old female who came in septic from obstructing stone she underwent cystoscopy and stent placement at the time she now comes back later for outpatient ureteroscopy and laser lithotripsy of the stones and removal of the stent, she is taken back to the operating room after smooth induction of anesthesia she was placed in dorsolithotomy position when in the bladder with a 21 Divehi rigid cystourethroscope grabbed the existing stent pulled out the meatus remove the stent and then went into the bladder with a flexible ureteroscope went up the ureter with the flexible ureteroscope and then went up to the upper pole and found the stones in the upper pole of the kidney the stones were lasered little tiny pieces after passing the round I inspected upper pole midpole and lower pole the kidney and no other major fragments were seen after completely lasering the stone with the thulium laser fiber 150 ?m laser fiber I then worked my way down the ureter. No stent was placed since a nice capacious open ureter and the laser was the stones was lasered completely. Patient's bladder was drained anesthetic reversed and she taken back to PACU in good condition can see her for follow-up in about 6 weeks in the office for checkup. Surgical Findings: Stones in the left kidney lasered completely into tiny dust pieces Complications Complications: No Admit VTE Documentation VTE Present on Admission: No VTE Mechan Device Prophylaxis: SCD's VTE Pharm Prophylaxis ordered?: No
[2024-08-28] MEDS: Ketorolac 15 MG/ML Vial IV (15:30)
--- NOTE | 2024-08-28 15:32 | PCM.POST.ANE ---
Anesthesia: Postop Eval I Current Vital Signs Temperature: 96.6 F Pulse Rate: 62 Blood Pressure: 159/60 Respiratory Rate: 18 Pulse Ox: 94 Assessment Airway patent: Yes Spontaneous unlabored respirations: Yes nausea: No Vomiting: No Anesthesia Complication: No Fluid Hydration Crystalloid volume administer (ml): 200 Total IV fluid infused: 200 Progress Note Anesthesia document: Postop Eval 1 completed: Yes
--- NOTE | 2024-08-28 15:33 | PCM.POSTANE2 ---
Anesthesia Postop Eval I Sum Postop Eval Completion status Anesthesia document: Postop Eval 1 completed: Yes Anesthesia Postop Eval I Summary Anesthesia Postop Eval I Summary: Anesthesia Postop Eval I: Assessment Summary Airway patent Yes 08/28/24 15:33 Spontaneous unlabored Yes 08/28/24 15:33 respirations Mental status nausea No 08/28/24 15:33 Vomiting No 08/28/24 15:33 Anesthesia Postop Eval I: Fluid Summary Crystalloid volume administer 200 08/28/24 15:33 (ml) Colloids volume administered ( ml) Blood Product volume administered (ml) Total IV fluid infused 200 08/28/24 15:33 Anesthesia Postop Eval I: Summary Notes Anesthesia Complication No 08/28/24 15:33 Anesthesia Complication Comment: Post-operative progress note Anesthesia: Postop Eval II Evaluation Mental status: Awake Pain Level: 0 nausea: No Vomiting: No
[2024-08-28 15:52] LABS: Bedside Glucose 139 mg/dL (74-106)
== END 2024-08-28 16:32 | disposition home or self-care (01) ==
LOC: SDC 12:06 → AC 12:07
PROVIDERS: PCP Internal Medicine; Referring Provider Urology; Visit Provider Urology
PROC: 0TJ98ZZ Inspection of Ureter, Via Natural or Artificial Opening Endoscopic (ICD-10-PCS; CPT 52352; principal; 2024-08-28 14:00)
DX: N20.0 Calculus of kidney (principal); I11.0 Hypertensive heart disease with heart failure; I50.30 Unspecified diastolic (congestive) heart failure; I27.20 Pulmonary hypertension, unspecified; J44.9 Chronic obstructive pulmonary disease, unspecified; I48.0 Paroxysmal atrial fibrillation; E11.9 Type 2 diabetes mellitus without complications; K21.9 Gastro-esophageal reflux disease without esophagitis; F32.A Depression, unspecified; G47.33 Obstructive sleep apnea (adult) (pediatric); I25.2 Old myocardial infarction; E55.9 Vitamin D deficiency, unspecified; E78.5 Hyperlipidemia, unspecified; F41.9 Anxiety disorder, unspecified; I25.10 Atherosclerotic heart disease of native coronary artery without angina pectoris; N32.81 Overactive bladder; I34.1 Nonrheumatic mitral (valve) prolapse; Z96.0 Presence of urogenital implants; Z88.0 Allergy status to penicillin; Z85.43 Personal history of malignant neoplasm of ovary; Z87.442 Personal history of urinary calculi; Z79.01 Long term (current) use of anticoagulants; Z79.899 Other long term (current) drug therapy; Z79.82 Long term (current) use of aspirin; Z79.84 Long term (current) use of oral hypoglycemic drugs
CPT/HCPCS: 52353; 82962; C1769; J2405

== ENCOUNTER 2024-09-22 07:51 | Inpatient (IN) | payer MEDICARE, SELFPAY ==
[2024-09-22] VITALS (10 sets, daily range): BP systolic 128–163; BP diastolic 61–80; PULSE 54–69; RESP 16–19; TEMP 36.6–36.9; O2SAT 94–96; BMI 38.2
--- NOTE | 2024-09-22 08:30 | EKG12_ITS ---
Test Reason : GENERAL Blood Pressure : */* mmHG Vent. Rate : 53 BPM Atrial Rate : * BPM P-R Int : * ms QRS Dur : 96 ms QT Int : 384 ms P-R-T Axes : * 66 264 degrees QTcB Int : 360 ms Atrial fibrillation with slow ventricular response ST & T wave abnormality, consider inferior ischemia ST & T wave abnormality, consider anterolateral ischemia Abnormal ECG Confirmed by Bryce Bender ([id number]), legal editor MONTY ARIZMENDI ([id number]) on 09/24/2024 10:41:45 AM Referred By: Confirmed By: Bryce Bender
--- NOTE | 2024-09-22 08:44 | EX.ED.DYSGE1 ---
HPI History of Present Illness Chief Complaint: Abd Pain Narrative Narrative: Chief complaint and HPI: Abdominal pain and umbilicus seepage. History taken by patient, daughter, medical record. Patient is a 78-year-old female with past medical history of ovarian cancer status postsurgery on Avastin, atrial fibrillation on Eliquis, DM2, HLD, HTN, COPD, CHF, CAD presents for evaluation of abdominal pain and seepage/bleeding from her umbilicus. On chart review, patient was admitted for sepsis secondary to obstructing stone. She underwent cystoscopy and stent placement. She had outpatient uteroscopy and laser lithotripsy of the stones and removal of the stent. She follows with Dr. Wolfe. Patient states since June she has had bleeding/the best from her umbilicus. She states that she has been evaluated by her physician. She was told she has an umbilical hernia and that they will continue to watch this. She has not been referred to a surgeon. Patient states the past several days she has had increased pain in her umbilicus. She denies any fever, chills, shortness of breath, chest pain, nausea, vomiting, constipation, dysuria. She states she did have some diarrhea today with streaks of blood. She states she has not seen blood in her stool since. She is a cancer patient with Dr. Ochoa. Patient is on Eliquis. Review of systems: See HPI Medications: As listed on the chart Allergies: As listed on the chart PFSH: Per chart Vital signs: As listed on the chart. Reviewed. Physical exam: Gen: A&O x3, NAD Head: Normocephalic, atraumatic Eyes: No sclera icterus, conjunctiva clear ENT: Moist mucous membranes Neck: Trachea midline, No JVD CV: RRR, no murmurs, no peripheral edema Resp: Lungs CTA BL, no w/r/c GI: Abd soft, non-distended, umbilical hernia with overlying skin changes of erythema and central necrosis/ulceration-tender to palpation, serosanguineous drainage from the area, abdomen nontender elsewhere Rectal: Normal external examination. No evidence of hemorrhoids or fissures. Normal tone and sensation. No masses, fluctuance, or tenderness. No pain out of proportion. + Yellow stool : No CVA tenderness Musc: Full ROM, no deformity Skin: Warm, dry Neuro: Alert, oriented, grossly intact, sensation intact Psych: Cooperative, appropriate mood and affect [facility] Medical History Toothache Gastric reflux History of hiatal hernia Wears glasses Cancer Arthritis History of diverticulitis Sleep apnea Shortness of breath on exertion History of echocardiogram Hypertension History of CHF (congestive heart failure) Cardiology follow-up encounter Difficulty swallowing Umbilical discharge Upper back pain on right side Cough Depression Diabetes Kidney stones Non-smoker CPAP (continuous positive airway pressure) dependence Congestive heart failure (CHF) Myocardial infarct History of cancer chemotherapy History of ovarian cancer Hydronephrosis concurrent with and due to calculi of kidney and ureter Acute left flank pain OAB (overactive bladder) Atypical chest pain Urinary frequency Breast cancer screening Grief reaction Non-rheumatic tricuspid valve insufficiency Non-rheumatic mitral regurgitation History of cardioversion (~06/28/22) Chronic atrial fibrillation with RVR Obstructive sleep apnea Chronic obstructive pulmonary disease Atrial fibrillation Depression Preop cardiovascular exam Port-A-Cath in place Ovarian cancer Pelvic mass Ascites Diarrhea Abdominal pain Flu vaccine need Vitamin D deficiency Essential hypertension Diastolic congestive heart failure Atherosclerotic heart disease of [place] coronary artery without angina pectoris Long-term use of high-risk medication SOB (shortness of breath) Pulmonary HTN Panic disorder Hiatal hernia Debility Paroxysmal atrial fibrillation with rapid ventricular response Streptococcal pneumonia Acute exacerbation of chronic obstructive pulmonary disease (COPD) Acute respiratory failure with hypoxia and hypercarbia NSTEMI (non-ST elevated myocardial infarction) Sepsis Junctional rhythm Spastic colon Morbid obesity PAF (paroxysmal atrial fibrillation) HLD (hyperlipidemia) CAD (coronary artery disease) Anxiety DM2 (diabetes mellitus, type 2) Hypokalemia Home Medications ?Medication ?Instructions ?Recorded ?Last Taken ?Type compress.stocking,knee,reg,lrg #2 ea 05/06/19 Unknown Rx lancing device #1 ea 12/29/20 Unknown Rx multivitamin 1 tab PO DAILY 11/25/22 08/27/24 History ezetimibe 10 mg tablet (Zetia) 10 mg PO QDAY cholesterol #90 tabs 02/06/24 08/27/24 Rx magnesium oxide 400 mg PO DAILY supplement 03/22/24 08/27/24 History lisinopril 20 mg tablet 20 mg PO BID #200 TABLETS 04/30/24 08/27/24 Rx duloxetine 60 mg capsule,delayed 60 mg PO DAILY #90 caps 05/08/24 08/27/24 Rx release apixaban 5 mg tablet (Eliquis) 5 mg PO BID #180 tabs 06/14/24 08/25/24 Rx Held on 08/28/24. Instructions: Resume on 09/02/24. aspirin 81 mg chewable tablet 81 mg PO QDAY 07/04/24 08/21/24 History cholecalciferol (vitamin D3) 50 50 mcg PO QDAY 07/04/24 08/27/24 History mcg (2,000 unit) tablet fenofibrate micronized 200 mg 200 mg PO QDAY #90 caps 07/05/24 08/27/24 Rx capsule tolterodine 2 mg tablet 2 mg PO BID #180 tabs 07/10/24 08/27/24 Rx amiodarone 200 mg tablet 200 mg PO QDAY #90 tabs 07/11/24 08/28/24 Rx lorazepam 0.5 mg tablet 0.5 mg PO BID PRN agitation 07/11/24 Unknown History furosemide 40 mg tablet 40 mg PO QDAY #90 tabs 07/19/24 08/27/24 Rx albuterol sulfate 90 mcg/actuation 2 puff inhalation QAM PRN 07/29/24 08/28/24 Rx aerosol inhaler (Ventolin HFA) shortness of breath or wheezing #8.5 grams fluticasone 100 mcg-salmeterol 50 1 inh inhalation BID 3 months #60 07/29/24 08/28/24 Rx mcg/dose blistr powdr for ea inhalation (Wixela Inhub) glimepiride 2 mg tablet 2 mg PO QAM #30 tabs 07/29/24 08/27/24 Rx nystatin 100,000 unit/gram topical 1 applic topical TID 3 months #60 07/29/24 08/26/24 Rx powder (Klayesta) grams digoxin 125 mcg (0.125 mg) tablet 125 mcg PO DAILY HOLD if HR 55 or 08/07/24 08/28/24 Rx below #90 tabs amlodipine 5 mg tablet 5 mg PO QDAY #30 tabs 09/02/24 Unknown Rx doxazosin 4 mg tablet 4 mg PO QHS this is a dose 09/11/24 Unknown Rx increase #90 tabs metoprolol tartrate 100 mg tablet 100 mg PO BID HOLD if BP 100 09/19/24 Unknown Rx systolic or belo or HR 55 or below #180 tabs Allergy/AdvReac Type Severity Reaction Status Date / Time amoxicillin Allergy Severe hives Verified 09/22/24 10:34 chlorhexidine Allergy Unknown red skin Verified 09/22/24 10:34 morphine Allergy Unknown headaches Verified 09/22/24 10:34 labetalol Allergy Unknown Verified 09/22/24 10:34 pitavastatin (From Livalo) Allergy Other Verified 09/22/24 10:34 simvastatin (From Zocor) Allergy Other Verified 09/22/24 10:34 atorvastatin (From Lipitor) AdvReac Unknown myalgias Verified 09/22/24 10:34 budesonide (From Symbicort) AdvReac Other Verified 09/22/24 10:34 formoterol (From Symbicort) AdvReac Other Verified 09/22/24 07:52 hydrocodone (From Vicodin) AdvReac Other Verified 09/22/24 10:34 Adczfxk-AJJ-YxV Reductase AdvReac Other Verified 09/22/24 10:34 Inhibitor (Pqkshse-Fob-Nxp Reductase Inhibitor) Family History Mother Cancer leukemia Father Respiratory disease Grandfather Myocardial infarction Grandmother Myocardial infarction Son Diabetes Surgical History Hx of cataract extraction Hx of surgical procedure Hx of cystoscopy History of urethral stent Hx of prior ablation treatment Status post catheter ablation of atrial fibrillation History of hysterectomy History of exploratory laparotomy History of cataract surgery History of tonsillectomy and adenoidectomy History of surgery on right wrist History of colonoscopy Social History household members: spouse and children Smoking Status: Never smoker alcohol intake: never substance use type: does not use caffeine: Yes Type: coffee Number of servings: 1 what type of physical activity do you participate in: none seatbelt use: always do you feel safe at home: Yes EXAM Physical Exam Const Vital Signs: 09/22/24 07:52 09/22/24 10:22 09/22/24 11:03 Temperature 98.4 F 97.8 F Temperature Source Oral Oral Pulse Rate 57 L 58 L 54 L Respiratory Rate 18 18 18 Blood Pressure 128/61 H 150/74 H 150/74 H Blood Pressure Mean 83 99 99 Pulse Ox 95 94 94 Oxygen Delivery Method Room Air Room Air Room Air 09/22/24 11:11 Temperature 98.2 F Temperature Source Pulse Rate 56 L Respiratory Rate 18 Blood Pressure 137/69 H Blood Pressure Mean 91 Pulse Ox 96 Oxygen Delivery Method MDM MDM MDM Narrative Medical decision making narrative: Patient is a 78-year-old female with past medical history of ovarian cancer status postsurgery on Avastin, atrial fibrillation on Eliquis, DM2, HLD, HTN, COPD, CHF, CAD presents for evaluation of abdominal pain and seepage/bleeding from her umbilicus. Differential diagnosis includes but is not limited to ischemic umbilical hernia, incarcerated hernia, infected umbilical hernia, cellulitis, intra-abdominal infection, UTI, C. difficile, GI bleed. NS bolus, morphine, Zofran ordered for symptoms. Abdominal pain workup ordered including CT abdomen and pelvis. Levaquin and Flagyl ordered for empiric antibiotics as I suspect infection/ischemia. Patient has allergy to penicillin. General surgery, Dr. Burkett was consulted to evaluate the patient. He saw the patient, agrees with plan. Plan will be for surgery a couple days secondary to Eliquis use. Given her extensive medical history recommends overall medical admission. Will update him with CT abdomen pelvis results. CBC without leukocytosis or anemia. Coagulation panel with normal INR. CMP without significant electrolyte abnormality, ROSANA, transaminitis. Lipase unremarkable. Lactic acid unremarkable. UA negative for UTI. Stool occult negative. C. difficile yet obtained. CT abdomen pelvis shows umbilical hernia with fat and small bowel. No strangulation. CT abdomen pelvis results were updated to general surgery. Patient accepted to the hospital by Dr. Watkins. Patient and family updated of all the results and the plan. They confirmed understanding. EKG: Interpreted by me/EM physician: EKG shows known atrial fibrillation with heart rate 53. Nonspecific ST changes. Impression: 1. Umbilical hernia with gangrene 2. History of ovarian cancer on chemotherapy Lab Data Labs: Laboratory Results - last 24 hr 09/22/24 09/22/24 09:06 09:19 WBC 8.3 RBC 4.32 Hgb 12.1 Hct 38.2 MCV 88.4 MCH 28.0 MCHC 31.7 L RDW Std Deviation 49.3 H RDW Coeff of Nabor 15.2 H Plt Count 253 MPV 10.5 Immature Gran % (Auto) 0.500 Neut % (Auto) 78.3 H Lymph % (Auto) 11.4 L [place] % (Auto) 9.1 Eos % (Auto) 0.5 Baso % (Auto) 0.2 Absolute Neuts (auto) 6.5 Absolute Lymphs (auto) 0.95 Nucleated RBC % 0 PT 18.5 H INR 1.5 APTT 31.0 Sodium 140 Potassium 3.9 Chloride Direct 102 Carbon Dioxide 27.5 Anion Gap 11 BUN 18 Creatinine 1.06 Estim Creat Clear Calc 48.46 L Est GFR (MDRD) Non-Af 54 L BUN/Creatinine Ratio 17.0 Glucose 119 H Lactic Acid 1.6 Calcium 9.2 Total Bilirubin 0.30 AST 16 ALT 11 Alkaline Phosphatase 41 Total Protein 6.1 Albumin 3.5 Globulin 2.6 Albumin/Globulin Ratio 1.4 Lipase 12 L Urine Color Yellow Urine Clarity Clear Urine pH 6.5 Ur Specific [place] 1.010 Urine Protein 15 H Urine Glucose (UA) Normal Urine Ketones Negative Urine Occult Blood Negative Urine Nitrite Negative Urine Bilirubin Negative Urine Urobilinogen Normal Ur Leukocyte Esterase Negative Urine RBC 0 SEEN Urine WBC 0 SEEN Ur Squamous Epith Cells 0 SEEN Urine Bacteria 0 SEEN Urine Mucus 0 SEEN Radiography Diagnostic Testing: Clinical Impression(s) from Imaging Studies Abdomen/Pelvis CT 09/22/24 10:14 IMPRESSION: 1. Moderate-sized hernia containing fluid fat and bowel with no evidence of strangulation 2. Hepatic steatosis 3. Mild splenomegaly 4. Nonobstructive calculus in the left kidney One or more dose reduction techniques were used (e.g., Automated exposure control, adjustment of the mA and/or kV according to patient size, use of iterative reconstruction technique). Reading Location: [facility] Discharge Plan Triage Chief Complaint: Abd Pain ED Provider: Sanchez Conner Dx/Rx/DC Orders Prescriptions: No Action (DME) compress.stocking,knee,reg,lrg Misc See Rx Instructions .ROUTE .MEDSUPPLY Qty: 2 1RF Rx Instructions: wear daily for venous insufficiency 20-30 mmHg magnesium oxide 400 mg magnesium capsule 400 mg PO DAILY multivitamin Tablet 1 tab PO DAILY aspirin 81 mg tablet,chewable 81 mg PO QDAY cholecalciferol (vitamin D3) 50 mcg (2,000 unit) tablet 50 mcg PO QDAY fluticasone propion-salmeterol [Wixela Inhub] 100-50 mcg/dose blister with device 1 inh inhalation BID 90 Days Qty: 60 3RF albuterol sulfate [Ventolin HFA] 90 mcg/actuation HFA aerosol inhaler 2 puff inhalation QAM PRN (Reason: shortness of breath or wheezing) Qty: 8.5 3RF nystatin [Klayesta] 100,000 unit/gram powder 1 applic topical TID 90 Days Qty: 60 7RF lorazepam 0.5 mg tablet 0.5 mg PO BID PRN (Reason: agitation) amiodarone 200 mg tablet 200 mg PO QDAY Qty: 90 3RF (DME) lancing device Misc See Rx Instructions .ROUTE .MEDSUPPLY Qty: 1 0RF Rx Instructions: As directed ezetimibe [Zetia] 10 mg tablet 10 mg PO QDAY Qty: 90 2RF lisinopril 20 mg tablet 20 mg PO BID Qty: 200 2RF duloxetine 60 mg capsule,delayed release(DR/EC) 60 mg PO DAILY Qty: 90 3RF Eliquis 5 mg tablet 5 mg PO BID Qty: 180 3RF Patient Comments: STOP 3 DAYS PRIOR TO PROCEDURE fenofibrate micronized 200 mg capsule 200 mg PO QDAY Qty: 90 3RF tolterodine 2 mg tablet 2 mg PO BID Qty: 180 1RF furosemide 40 mg tablet 40 mg PO QDAY Qty: 90 1RF glimepiride 2 mg tablet 2 mg PO QAM Qty: 30 1RF Rx Instructions: administer with breakfast digoxin 125 mcg (0.125 mg) tablet 125 mcg PO DAILY Qty: 90 3RF amlodipine 5 mg tablet 5 mg PO QDAY Qty: 30 11RF doxazosin 4 mg tablet 4 mg PO QHS Qty: 90 3RF metoprolol tartrate 100 mg tablet 100 mg PO BID Qty: 180 3RF Primary Care Provider: Quique Mims Referrals: Quique Mims MD [Primary Care Provider] - Print Language: [place]serratian
[2024-09-22] MEDS: 0.9% Normal Saline (1000mL) 1,000 ML 1000 ML IV (09:13)
[2024-09-22 09:16] LABS: Absolute Lymphocyte Count 0.95 X10^3/uL (0.83-4.51); Absolute Neutrophil Count 6.5 X10^3/uL (2.0-7.7); Basophil# 0.02 X10^3/uL; Basophil% 0.2 % (0-1); Eosinophil# 0.04 X10^3/uL; Eosinophils% 0.5 % (0-5); Hematocrit 38.2 % (37-47); Hemoglobin 12.1 g/dL (12.0-15.0); Lymphocyte # 0.95 X10^3/ul (0.83-4.51); Lymphocyte % 11.4 % (19-41); Mean Corp Hgb Conc 31.7 g/dL (32-36); Mean Corpuscular Volume 88.4 fL (81-99); Mean Platelet Vol. 10.5 fl (6.2-12.0); Monocyte# 0.76 X10^3/uL; Monocyte% 9.1 % (0-10); NRBC Flagged by Analyzer 0 % (0-5); Neutrophil # 6.52 X10^3/uL (2.7-7.7); Neutrophil % 78.3 % (47-70); Platelet Count 253 K/mm3 (150-450); RBC Distribution Width CV 15.2 % (11.6-14.6); RBC Distribution Width SD 49.3 fl (35.1-43.9); Red Blood Count 4.32 M/mm3 (4.2-5.4); White Blood Count 8.3 K/mm3 (4.4-11.0)
[2024-09-22 09:25] LABS: International Normalized Ratio 1.5; Prothrombin Time (Protime)PT. 18.5 SECONDS (11.7-14.9)
[2024-09-22 09:27] LABS: Bacteria 0 SEEN /hpf (None Seen); Mucous, Urine 0 SEEN /hpf (<or=2+); Squamous Epithelial Cells - UA 0 SEEN /hpf (5-10); White Blood Cells 0 SEEN /hpf (0-5)
--- NOTE | 2024-09-22 09:29 | EX.PCM.CON.S ---
Assessment & Plan Assessment/Plan (1) Umbilical hernia with gangrene: PLAN: The patient has a small umbilical hernia with gangrenous skin overlying it. There is some redness as well. There is serosanguineous drainage from this. There is also an area of ulceration at the umbilical stalk. I think the patient needs surgery to resect the necrotic skin. CT of the abdomen pelvis is pending to elucidate the contents of the hernia. I discussed the risks of the procedure including breakdown of the wound as the patient is currently on immunosuppression for ovarian cancer. I do not believe she has much alternative as the skin is necrotic and is likely to become infected if it is not already. I would recommend antibiotics and holding Eliquis and aspirin and I will operate on her Monday or of this week. Patient is agreeable. Carlos Burkett MD Pager: [facility] [address] [place] [address], [address] [place] [address] Office: HPI Consult Data Date of Consult: 09/22/24 HPI Narrative HPI Narrative: ANDREW VELAZQUEZ, is a 78 F who presents with seepage from her umbilical hernia. The patient says this has been black and seeping since June. She is currently on chemotherapy for ovarian cancer. She had surgery about a year ago. She reports mild pain. [facility] Medical History Toothache Gastric reflux History of hiatal hernia Wears glasses Cancer Arthritis History of diverticulitis Sleep apnea Shortness of breath on exertion History of echocardiogram Hypertension History of CHF (congestive heart failure) Cardiology follow-up encounter Difficulty swallowing Umbilical discharge Upper back pain on right side Cough Depression Diabetes Kidney stones Non-smoker CPAP (continuous positive airway pressure) dependence Congestive heart failure (CHF) Myocardial infarct History of cancer chemotherapy History of ovarian cancer Hydronephrosis concurrent with and due to calculi of kidney and ureter Acute left flank pain OAB (overactive bladder) Atypical chest pain Urinary frequency Breast cancer screening Grief reaction Non-rheumatic tricuspid valve insufficiency Non-rheumatic mitral regurgitation History of cardioversion (~06/28/22) Chronic atrial fibrillation with RVR Obstructive sleep apnea Chronic obstructive pulmonary disease Atrial fibrillation Depression Preop cardiovascular exam Port-A-Cath in place Ovarian cancer Pelvic mass Ascites Diarrhea Abdominal pain Flu vaccine need Vitamin D deficiency Essential hypertension Diastolic congestive heart failure Atherosclerotic heart disease of [place] coronary artery without angina pectoris Long-term use of high-risk medication SOB (shortness of breath) Pulmonary HTN Panic disorder Hiatal hernia Debility Paroxysmal atrial fibrillation with rapid ventricular response Streptococcal pneumonia Acute exacerbation of chronic obstructive pulmonary disease (COPD) Acute respiratory failure with hypoxia and hypercarbia NSTEMI (non-ST elevated myocardial infarction) Sepsis Junctional rhythm Spastic colon Morbid obesity PAF (paroxysmal atrial fibrillation) HLD (hyperlipidemia) CAD (coronary artery disease) Anxiety DM2 (diabetes mellitus, type 2) Hypokalemia Home Medications ?Medication ?Instructions ?Recorded ?Last Taken ?Type compress.stocking,knee,reg,lrg #2 ea 05/06/19 Unknown Rx lancing device #1 ea 12/29/20 Unknown Rx multivitamin 1 tab PO DAILY 11/25/22 08/27/24 History ezetimibe 10 mg tablet (Zetia) 10 mg PO QDAY cholesterol #90 tabs 02/06/24 08/27/24 Rx magnesium oxide 400 mg PO DAILY supplement 03/22/24 08/27/24 History lisinopril 20 mg tablet 20 mg PO BID #200 TABLETS 04/30/24 08/27/24 Rx duloxetine 60 mg capsule,delayed 60 mg PO DAILY #90 caps 05/08/24 08/27/24 Rx release apixaban 5 mg tablet (Eliquis) 5 mg PO BID #180 tabs 06/14/24 08/25/24 Rx Held on 08/28/24. Instructions: Resume on 09/02/24. aspirin 81 mg chewable tablet 81 mg PO QDAY 07/04/24 08/21/24 History cholecalciferol (vitamin D3) 50 50 mcg PO QDAY 07/04/24 08/27/24 History mcg (2,000 unit) tablet fenofibrate micronized 200 mg 200 mg PO QDAY #90 caps 07/05/24 08/27/24 Rx capsule tolterodine 2 mg tablet 2 mg PO BID #180 tabs 07/10/24 08/27/24 Rx amiodarone 200 mg tablet 200 mg PO QDAY #90 tabs 07/11/24 08/28/24 Rx lorazepam 0.5 mg tablet 0.5 mg PO BID PRN agitation 07/11/24 Unknown History furosemide 40 mg tablet 40 mg PO QDAY #90 tabs 07/19/24 08/27/24 Rx albuterol sulfate 90 mcg/actuation 2 puff inhalation QAM PRN 07/29/24 08/28/24 Rx aerosol inhaler (Ventolin HFA) shortness of breath or wheezing #8.5 grams fluticasone 100 mcg-salmeterol 50 1 inh inhalation BID 3 months #60 07/29/24 08/28/24 Rx mcg/dose blistr powdr for ea inhalation (Wixela Inhub) glimepiride 2 mg tablet 2 mg PO QAM #30 tabs 07/29/24 08/27/24 Rx nystatin 100,000 unit/gram topical 1 applic topical TID 3 months #60 07/29/24 08/26/24 Rx powder (Klayesta) grams digoxin 125 mcg (0.125 mg) tablet 125 mcg PO DAILY HOLD if HR 55 or 08/07/24 08/28/24 Rx below #90 tabs amlodipine 5 mg tablet 5 mg PO QDAY #30 tabs 09/02/24 Unknown Rx doxazosin 4 mg tablet 4 mg PO QHS this is a dose 09/11/24 Unknown Rx increase #90 tabs metoprolol tartrate 100 mg tablet 100 mg PO BID HOLD if BP 100 09/19/24 Unknown Rx systolic or belo or HR 55 or below #180 tabs Allergy/AdvReac Type Severity Reaction Status Date / Time amoxicillin Allergy Severe hives Verified 09/22/24 07:52 chlorhexidine Allergy Unknown red skin Verified 09/22/24 07:52 morphine Allergy Unknown headaches Verified 09/22/24 07:52 labetalol Allergy Unknown Verified 09/22/24 07:52 pitavastatin (From Livalo) Allergy Other Verified 09/22/24 07:52 simvastatin (From Zocor) Allergy Other Verified 09/22/24 07:52 atorvastatin (From Lipitor) AdvReac Unknown myalgias Verified 09/22/24 07:52 budesonide (From Symbicort) AdvReac Other Verified 09/22/24 07:52 formoterol (From Symbicort) AdvReac Other Verified 09/22/24 07:52 hydrocodone (From Vicodin) AdvReac Other Verified 09/22/24 07:52 Qpovqzn-JXP-GiC Reductase AdvReac Other Verified 09/22/24 07:52 Inhibitor (Jlldujy-Hmy-Rqn Reductase Inhibitor) Family History Mother Cancer leukemia Father Respiratory disease Grandfather Myocardial infarction Grandmother Myocardial infarction Son Diabetes Surgical History Hx of cataract extraction Hx of surgical procedure Hx of cystoscopy History of urethral stent Hx of prior ablation treatment Status post catheter ablation of atrial fibrillation History of hysterectomy History of exploratory laparotomy History of cataract surgery History of tonsillectomy and adenoidectomy History of surgery on right wrist History of colonoscopy Social History household members: spouse and children Smoking Status: Never smoker alcohol intake: never substance use type: does not use caffeine: Yes Type: coffee Number of servings: 1 what type of physical activity do you participate in: none seatbelt use: always do you feel safe at home: Yes ROS Constitutional Constitutional: Denies anorexia, chills or fatigue Eyes Eyes: Denies blurry vision ENT HEENT: Denies abnormal hearing Cardiovascular Cardiovascular: Denies chest pain Respiratory/Chest Respiratory/Chest: Denies cough or dyspnea Gastrointestinal Gastrointestinal: Reports abdominal pain; Denies nausea or vomiting Genitourinary Genitourinary: Denies change in urinary stream Musculoskeletal Musculoskeletal: Denies abnormal gait Integumentary Integumentary: Denies jaundice Neurologic Neurologic: Denies abnormal gait Endocrine Endocrinology: Denies flushing Hematologic/Lymphatic Hematologic/Lymphatic: Reports easy bleeding Physical Exam Const alert, oriented x3 and no apparent distress HEENT normocephalic Eyes PERRL Resp normal respiratory effort Cardio Rate: regular rate Rhythm: regular rhythm GI soft to palpation Palpation: tender periumbilical Lab / Micro Data 09/22/24 09:06 09/22/24 09:06 Labs: Laboratory Results - last 24 hr 09/22/24 09:06: WBC 8.3, RBC 4.32, Hgb 12.1, Hct 38.2, MCV 88.4, MCH 28.0, MCHC 31.7 L, RDW Std Deviation 49.3 H, RDW Coeff of [place] 15.2 H, Plt Count 253, MPV 10.5, Immature Gran % (Auto) 0.500, Neut % (Auto) 78.3 H, Lymph % (Auto) 11.4 L, [place] % (Auto) 9.1, Eos % (Auto) 0.5, Baso % (Auto) 0.2, Absolute Neuts (auto) 6.5, Absolute Lymphs (auto) 0.95, Nucleated RBC % 0, PT 18.5 H, INR 1.5, APTT 31.0
[2024-09-22 09:30] LABS: Color, Urine Yellow (Yellow); Glucose, Dipstick Normal (Normal); Ketone-Dipstick Negative (Negative); Leukocyte Esterase-Dipstick Negative /ul (Negative); Nitrite-Dipstick Negative (Negative); Occult Blood-Urine Negative /ul (Negative); Protein-Dipstick 15 mg/dl (Negative); Urine Bilirubin Dipstick Negative (Negative); Urine Clarity Clear (Clear); Urine Urobilinogen Normal (Normal); Urine pH 6.5 (5.0 - 8.0)
[2024-09-22 09:35] LABS: Red Blood Cells-Urine 0 SEEN /hpf (0-5)
[2024-09-22 09:47] LABS: ALB/GLOB Ratio 1.4 RATIO (0.9-2.4); AST(SGOT) 16 U/L (<=31); Alanine Aminotransfer ALT/SGPT 11 U/L (<=34); Albumin, Serum 3.5 g/dL (3.4-4.8); Alkaline Phosphatase 41 U/L (35-104); Anion Gap 11 (5-15); BUN 18 mg/dL (4-19); Calcium 9.2 mg/dL (7.6-11.0); Carbon Dioxide 27.5 mmol/L (22.0-29.0); Chloride 102 mmol/L (96-108); Creatinine, Serum 1.06 mg/dL (0.70-1.20); EST Glomerular Filtration Rate 54 (>60); Estimated Creatinine Clearance 48.46 ml/min (50-250); Globulin 2.6 g/dL (2.2-4.2); Glucose 119 mg/dL (70-99); Lactic Acid 1.6 mmol/L (0.0-2.0); Lipase 12 U/L (13-75); Potassium 3.9 mmol/L (3.3-5.1); Protein, Total 6.1 g/dL (5.9-8.4); Sodium Level 140 mmol/L (133-145)
--- NOTE | 2024-09-22 10:14 | CT_ITS ---
PROCEDURE: ABDOMEN/PELVIS W IV CONT ONLY REASON FOR EXAM: Abdominal pain, leakage of fluid from umbilicus TECHNIQUE: Abdomen and pelvis CT with intravenous contrast. COMPARISON: 05/08/2024 FINDINGS: Lung bases: Mild bilateral pleural effusions, [id number]-left Liver: Diffuse fatty infiltration. Gallbladder: Unremarkable. Spleen: Mildly enlarged Pancreas: Unremarkable. Adrenals: Unremarkable. Kidneys: Bilateral cortical thinning, [id number]-[id number]-right with 2.4 cm or less hypodensities likely representing cysts 4 mm nonobstructive calculus in the left kidney. Bladder: Unremarkable. Reproductive Organs: Unremarkable. Bowel: Colonic diverticulosis without diverticulitis. Suture material in the transverse colon from anastomosis. Appendix: Normal. Lymph nodes: No suspicious lymph node enlargement. Vasculature: The abdominal aorta and IVC are normal. Peritoneum / Retroperitoneum: No ascites. No free air. Bones: Unremarkable. Hernia: Umbilical hernia with osteo defect measuring 5 point 7 cm. Hernia contains fat small bowel and fluid with no evidence of strangulation. CT/Abdomen/Pelvis W IV Cont ONLY IMPRESSION: 1. Moderate-sized hernia containing fluid fat and bowel with no evidence of st rangulation 2. Hepatic steatosis 3. Mild splenomegaly 4. Nonobstructive calculus in the left kidney One or more dose reduction techniques were used (e.g., Automated exposure contr ol, adjustment of the mA and/or kV according to patient size, use of iterative reconstruction technique). Reading Location: [place]
[2024-09-22] MEDS: metroNIDAZOLE 500 MG/100 ML BAG 100 MG IV ×2 (10:20→22:11)
[2024-09-22] MEDS: levoFLOXacin IV 750 MG/150 ML BAG 100 MG IV (11:10)
--- NOTE | 2024-09-22 11:21 | PCM.HP.STD ---
HPI - General General Date of Admission: 09/22/24 Date of Service: 09/22/24 Chief Complaint: Drainage from umbilicus with bleeding with mild abdominal pain. Temperature 99.5 100 at home. Dark red blood about 3 to 4 days ago. HPI Narrative ANDREW VELAZQUEZ, is a 78 F who came to ED for discharge from [facility], dirty looking, seropurulent on and off since April2024 but has gotten worse over the last 2 to 3 weeks. Has mild abdominal pain around umbilicus area. Had temperature 99.5 ?F at home. She also had dark blood per rectum about 3 to 4 days ago which resolved spontaneously. Feeling generalized weakness. Denies nausea vomiting. Patient also has history of kidney stone and had ureteric stent for obstructive left UPJ stone and septic shock due to pyelonephritis in April 2024 for which she was stented and later laser lithotripsy in first week of August 2024 and stent removal. Patient worried about sepsis this time too. In ED, she was started on IV Levaquin and Flagyl. General surgeon Dr. Burkett saw the patient needs surgery but on anticoagulant therefore admitted to medicine. ON LICENSE OF [facility] Medical History Toothache Gastric reflux History of hiatal hernia Wears glasses Cancer Arthritis History of diverticulitis Sleep apnea Shortness of breath on exertion History of echocardiogram Hypertension History of CHF (congestive heart failure) Cardiology follow-up encounter Difficulty swallowing Umbilical discharge Upper back pain on right side Cough Depression Diabetes Kidney stones Non-smoker CPAP (continuous positive airway pressure) dependence Congestive heart failure (CHF) Myocardial infarct History of cancer chemotherapy History of ovarian cancer Hydronephrosis concurrent with and due to calculi of kidney and ureter Acute left flank pain OAB (overactive bladder) Atypical chest pain Urinary frequency Breast cancer screening Grief reaction Non-rheumatic tricuspid valve insufficiency Non-rheumatic mitral regurgitation History of cardioversion (~06/28/22) Chronic atrial fibrillation with RVR Obstructive sleep apnea Chronic obstructive pulmonary disease Atrial fibrillation Depression Preop cardiovascular exam Port-A-Cath in place Ovarian cancer Pelvic mass Ascites Diarrhea Abdominal pain Flu vaccine need Vitamin D deficiency Essential hypertension Diastolic congestive heart failure Atherosclerotic heart disease of [place] coronary artery without angina pectoris Long-term use of high-risk medication SOB (shortness of breath) Pulmonary HTN Panic disorder Hiatal hernia Debility Paroxysmal atrial fibrillation with rapid ventricular response Streptococcal pneumonia Acute exacerbation of chronic obstructive pulmonary disease (COPD) Acute respiratory failure with hypoxia and hypercarbia NSTEMI (non-ST elevated myocardial infarction) Sepsis Junctional rhythm Spastic colon Morbid obesity PAF (paroxysmal atrial fibrillation) HLD (hyperlipidemia) CAD (coronary artery disease) Anxiety DM2 (diabetes mellitus, type 2) Hypokalemia Home Medications ?Medication ?Instructions ?Recorded ?Last Taken ?Type compress.stocking,knee,reg,lrg #2 ea 05/06/19 Unknown Rx lancing device #1 ea 12/29/20 Unknown Rx multivitamin 1 tab PO DAILY 11/25/22 08/27/24 History ezetimibe 10 mg tablet (Zetia) 10 mg PO QDAY cholesterol #90 tabs 02/06/24 08/27/24 Rx magnesium oxide 400 mg PO DAILY supplement 03/22/24 08/27/24 History lisinopril 20 mg tablet 20 mg PO BID #200 TABLETS 04/30/24 08/27/24 Rx duloxetine 60 mg capsule,delayed 60 mg PO DAILY #90 caps 05/08/24 08/27/24 Rx release apixaban 5 mg tablet (Eliquis) 5 mg PO BID #180 tabs 06/14/24 08/25/24 Rx Held on 08/28/24. Instructions: Resume on 09/02/24. aspirin 81 mg chewable tablet 81 mg PO QDAY 07/04/24 08/21/24 History cholecalciferol (vitamin D3) 50 50 mcg PO QDAY 07/04/24 08/27/24 History mcg (2,000 unit) tablet fenofibrate micronized 200 mg 200 mg PO QDAY #90 caps 07/05/24 08/27/24 Rx capsule tolterodine 2 mg tablet 2 mg PO BID #180 tabs 07/10/24 08/27/24 Rx amiodarone 200 mg tablet 200 mg PO QDAY #90 tabs 07/11/24 08/28/24 Rx lorazepam 0.5 mg tablet 0.5 mg PO BID PRN agitation 07/11/24 Unknown History furosemide 40 mg tablet 40 mg PO QDAY #90 tabs 07/19/24 08/27/24 Rx albuterol sulfate 90 mcg/actuation 2 puff inhalation QAM PRN 07/29/24 08/28/24 Rx aerosol inhaler (Ventolin HFA) shortness of breath or wheezing #8.5 grams fluticasone 100 mcg-salmeterol 50 1 inh inhalation BID 3 months #60 07/29/24 08/28/24 Rx mcg/dose blistr powdr for ea inhalation (Wixela Inhub) glimepiride 2 mg tablet 2 mg PO QAM #30 tabs 07/29/24 08/27/24 Rx nystatin 100,000 unit/gram topical 1 applic topical TID 3 months #60 07/29/24 08/26/24 Rx powder (Klayesta) grams digoxin 125 mcg (0.125 mg) tablet 125 mcg PO DAILY HOLD if HR 55 or 08/07/24 08/28/24 Rx below #90 tabs amlodipine 5 mg tablet 5 mg PO QDAY #30 tabs 09/02/24 Unknown Rx doxazosin 4 mg tablet 4 mg PO QHS this is a dose 09/11/24 Unknown Rx increase #90 tabs metoprolol tartrate 100 mg tablet 100 mg PO BID HOLD if BP 100 09/19/24 Unknown Rx systolic or belo or HR 55 or below #180 tabs Allergy/AdvReac Type Severity Reaction Status Date / Time amoxicillin Allergy Severe hives Verified 09/22/24 10:34 chlorhexidine Allergy Unknown red skin Verified 09/22/24 10:34 morphine Allergy Unknown headaches Verified 09/22/24 10:34 labetalol Allergy Unknown Verified 09/22/24 10:34 pitavastatin (From Livalo) Allergy Other Verified 09/22/24 10:34 simvastatin (From Zocor) Allergy Other Verified 09/22/24 10:34 atorvastatin (From Lipitor) AdvReac Unknown myalgias Verified 09/22/24 10:34 budesonide (From Symbicort) AdvReac Other Verified 09/22/24 10:34 formoterol (From Symbicort) AdvReac Other Verified 09/22/24 07:52 hydrocodone (From Vicodin) AdvReac Other Verified 09/22/24 10:34 Zkzjrmg-FYP-HtV Reductase AdvReac Other Verified 09/22/24 10:34 Inhibitor (Lupuedu-Cbd-Dud Reductase Inhibitor) Family History Mother Cancer leukemia Father Respiratory disease Grandfather Myocardial infarction Grandmother Myocardial infarction Son Diabetes Surgical History Hx of cataract extraction Hx of surgical procedure Hx of cystoscopy History of urethral stent Hx of prior ablation treatment Status post catheter ablation of atrial fibrillation History of hysterectomy History of exploratory laparotomy History of cataract surgery History of tonsillectomy and adenoidectomy History of surgery on right wrist History of colonoscopy Social History household members: spouse and children Smoking Status: Never smoker alcohol intake: never substance use type: does not use caffeine: Yes Type: coffee Number of servings: 1 what type of physical activity do you participate in: none seatbelt use: always do you feel safe at home: Yes ROS ROS Narrative Constitutional: Reports, low-grade fever, fatigue and weakness. No fever. Multiple comorbidities which includes ovarian cancer, atrial fibrillation on anticoagulant/Eliquis, COPD and heart failure HEENT: Reports systems reviewed and no addt'l complaints, except as documented Respiratory/Chest: COPD. No acute shortness of breath or respiratory distress or wheezing. CVS: Denies chest pain pressure or tightness., Chronic A-fib and heart failure Gastrointestinal: Denies coffee ground emesis, hematemesis or vomiting. As described in HPI Genitourinary: Recent right ureteric/kidney stone and stenting and then removal. Denies burning urination or new urinary tract symptoms Musculoskeletal: Denies acute joint pain or limited range of motion. No acute injury Neurologic: Denies seizure-like symptoms. skin: Umbilical drainage, is discouraged. Endocrinology: Reports systems reviewed and no addt'l complaints, except as documented Hematologic/Lymphatic: Reports systems reviewed and no addt'l complaints, except as documented Rest 14 ROS are negative except as mentioned in HPI Vital Signs Vital Signs Vital Signs: 09/22/24 07:52 09/22/24 10:22 09/22/24 11:03 Temperature 98.4 F 97.8 F Temperature Source Oral Oral Pulse Rate 57 L 58 L 54 L Respiratory Rate 18 18 18 Blood Pressure 128/61 H 150/74 H 150/74 H Blood Pressure Mean 83 99 99 Pulse Ox 95 94 94 Oxygen Delivery Method Room Air Room Air Room Air 09/22/24 11:11 Temperature 98.2 F Temperature Source Pulse Rate 56 L Respiratory Rate 18 Blood Pressure 137/69 H Blood Pressure Mean 91 Pulse Ox 96 Oxygen Delivery Method Weight Weight: 209 lb Body Mass Index (BMI) 38.2 Physical Exam Narrative General: Alert, Oriented x3, Cooperative. BMI 38.2 kg per square HEENT: Atraumatic, PERRLA, EOMI, Normocephalic Oral: Oral mucosa dry. No Gingival or Mucosal Lesions/ Ulcerations Neck: Supple, No JVD, Negative Carotid Bruits Chest wall/Lungs: Air entry diminished in bilateral lung bases. No crepitation/rhonchi Cardiovascular: Irregular rhythm, A-fib, normal S1, Normal S2, systolic murmur Abdomen: Bowel Sounds sluggish, soft, tenderness present around umbilical region. No guarding/rigidity. No distention. Long midline abdominal surgical scar : No dysuria. No renal angle tenderness. No suprapubic tenderness. Extremities: No edema, Capillary Refill Less than 3 Seconds Skin: Blood mixed/seropurulent discharge from umbilicus. Musculoskeletal: No Tenderness to Palpation of Joints or Extremities. ROM mildly restricted. Easily. Neurological: Cranial nerves II-XII grossly intact, DTR 2+/4. No acute focal neurological deficit. Psych/Mental Status: Flat affect Results Lab / Micro Data 09/22/24 09:06 09/22/24 09:06 Labs: Laboratory Results - last 24 hr 09/22/24 09:06: WBC 8.3, RBC 4.32, Hgb 12.1, Hct 38.2, MCV 88.4, MCH 28.0, MCHC 31.7 L, RDW Std Deviation 49.3 H, RDW Coeff of Nabor 15.2 H, Plt Count 253, MPV 10.5, Immature Gran % (Auto) 0.500, Neut % (Auto) 78.3 H, Lymph % (Auto) 11.4 L, Motley % (Auto) 9.1, Eos % (Auto) 0.5, Baso % (Auto) 0.2, Absolute Neuts (auto) 6.5, Absolute Lymphs (auto) 0.95, Nucleated RBC % 0, PT 18.5 H, INR 1.5, APTT 31.0, Sodium 140, Potassium 3.9, Chloride Direct 102, Carbon Dioxide 27.5, Anion Gap 11, BUN 18, Creatinine 1.06, Estim Creat Clear Calc 48.46 L, Est GFR (MDRD) Non-Af 54 L, BUN/Creatinine Ratio 17.0, Glucose 119 H, Lactic Acid 1.6, Calcium 9.2, Total Bilirubin 0.30, AST 16, ALT 11, Alkaline Phosphatase 41, Total Protein 6.1, Albumin 3.5, Globulin 2.6, Albumin/Globulin Ratio 1.4, Lipase 12 L 09/22/24 09:19: Urine Color Yellow, Urine Clarity Clear, Urine pH 6.5, Ur Specific Mabel 1.010, Urine Protein 15 H, Urine Glucose (UA) Normal, Urine Ketones Negative, Urine Occult Blood Negative, Urine Nitrite Negative, Urine Bilirubin Negative, Urine Urobilinogen Normal, Ur Leukocyte Esterase Negative, Urine RBC 0 SEEN, Urine WBC 0 SEEN, Ur Squamous Epith Cells 0 SEEN, Urine Bacteria 0 SEEN, Urine Mucus 0 SEEN Micro: Microbiology 09/22/24 09:15 Stool Stool Occult Blood (BHAVIN) - Final Imaging Radiology Impression Abdomen/Pelvis CT 09/22/24 10:14 IMPRESSION: 1. Moderate-sized hernia containing fluid fat and bowel with no evidence of strangulation 2. Hepatic steatosis 3. Mild splenomegaly 4. Nonobstructive calculus in the left kidney One or more dose reduction techniques were used (e.g., Automated exposure control, adjustment of the mA and/or kV according to patient size, use of iterative reconstruction technique). Reading Location: [facility] Assessment & Plan Assessment/Plan (1) Umbilical hernia with gangrene: PLAN: Plan This 78-year-old female with history of ovarian cancer admitted with seropurulent/blood mixed discharge from umbilicus since April 2024. Mild low-grade fever and periumbilical abdominal pain 1. Umbilical hernia complicated with infection, ulceration and gangrene of the umbilical skin: [facility] Does not meet criteria for sepsis, heart rate blood pressure or control. No tachypnea or hypoxia. CT abdomen individually reviewed and shows moderate stenosis umbilical hernia containing fat and bowel with no evidence of strangulation. On IV fluid Ringer lactate. Started on IV Levaquin and Flagyl. IV clindamycin ordered for suppression of her toxin and anaerobic infect, x 2 doses patient was seen by surgeon Dr. Burkett. Aspirin and Eliquis on hold. Plan for or on Monday/ of this week. 2. Ovarian cancer status post debulking surgery and chemotherapy: Patient on chemotherapy. Home medications does not show active chemotherapy. She follows oncologist Dr. Ezekiel Ochoa. 3. COPD/obstructive sleep apnea/morbid obesity: Patient on maintenance inhaler, Wixela at home. On CPAP 11 cm of water. Patient advised to bring home CPAP. BMI 38.2 kg/m? consistent with morbid obesity. 4. Moderately severe oropharyngeal dysphagia: During previous hospitalization modified barium swallow done on 05/16/2024 showed moderate severe oropharyngeal dysphagia. Speech therapist ordered 5. Chronic A-fib: Twelve-lead EKG done in the ER shows A-fib with slow ventricular rate, [address]-T changes, T inversion in V4-V6. Last EKG in May 16 showed A-fib with RVR. Patient on amiodarone, metoprolol and digoxin continued. Eliquis on hold as mentioned above . 6. CKD stage IIIa: Patient had ROSANA in May 2024. She also had right pyelonephritis from infected obstructive right UPJ stone. She had laser lithotripsy and stent removal in first week of August 2024. She follows Dr. Wolfe 7. Chronic atherosclerotic heart disease without angina and benign essential hypertension: Lisinopril 20 mg twice daily, titrate the dose according to blood pressure 8. Type 2 diabetes mellitus: Last A1c was 5.5% on July 29, 2024: Glucose in BMP is 119. Lactic acid 1.6. Accu-Chek before meals and at bedtime with Humalog sliding scale coverage and hypoglycemia protocol. 9. Morbid obesity: Board Filler consult. Weight loss counseling. 10. DVT prophylaxis: bilateral SCDs Living will/advanced directive/end of life care: Patient does have living will or advanced directive. Her power of senior attorney for health is her daughter present in the room. After discussion of benefits/risks procedures involved with full code, DNR CC arrest and DNR CC, the patient opted for DNR CC. She had DNRCC record and papers signed during previous articulation by Dr. Arya Robertson. Also informed that her DNRCC status will be suspended for 48 hours after surgery. The patient and her daughter agreed. Patient doesn't want artificial life support including intubation, tube feed, ventilator and/chest compression, central venous catheter, vasopressor and DC shock if needed Total time spent in [id number] encounter in discussion of advanced directive 17 minutes. Microbiology Past 72 Hours 09/22/24 09:15 Stool Stool Occult Blood (BHAVIN) - Final Laboratory Results 09/22/24 09:06: WBC 8.3, RBC 4.32, Hgb 12.1, Hct 38.2, MCV 88.4, MCH 28.0, MCHC 31.7 L, RDW Std Deviation 49.3 H, RDW Coeff of Nabor 15.2 H, Plt Count 253, MPV 10.5, Immature Gran % (Auto) 0.500, Neut % (Auto) 78.3 H, Lymph % (Auto) 11.4 L, Motley % (Auto) 9.1, Eos % (Auto) 0.5, Baso % (Auto) 0.2, Absolute Neuts (auto) 6.5, Absolute Lymphs (auto) 0.95, Nucleated RBC % 0, PT 18.5 H, INR 1.5, APTT 31.0, Sodium 140, Potassium 3.9, Chloride Direct 102, Carbon Dioxide 27.5, Anion Gap 11, BUN 18, Creatinine 1.06, Estim Creat Clear Calc 48.46 L, Est GFR (MDRD) Non-Af 54 L, BUN/Creatinine Ratio 17.0, Glucose 119 H, Lactic Acid 1.6, Calcium 9.2, Total Bilirubin 0.30, AST 16, ALT 11, Alkaline Phosphatase 41, Total Protein 6.1, Albumin 3.5, Globulin 2.6, Albumin/Globulin Ratio 1.4, Lipase 12 L 09/22/24 09:19: Urine Color Yellow, Urine Clarity Clear, Urine pH 6.5, Ur Specific Mabel 1.010, Urine Protein 15 H, Urine Glucose (UA) Normal, Urine Ketones Negative, Urine Occult Blood Negative, Urine Nitrite Negative, Urine Bilirubin Negative, Urine Urobilinogen Normal, Ur Leukocyte Esterase Negative, Urine RBC 0 SEEN, Urine WBC 0 SEEN, Ur Squamous Epith Cells 0 SEEN, Urine Bacteria 0 SEEN, Urine Mucus 0 SEEN Clinical Impression(s) from Imaging Studies Abdomen/Pelvis CT 09/22/24 10:14 IMPRESSION: 1. Moderate-sized hernia containing fluid fat and bowel with no evidence of strangulation 2. Hepatic steatosis 3. Mild splenomegaly 4. Nonobstructive calculus in the left kidney One or more dose reduction techniques were used (e.g., Automated exposure control, adjustment of the mA and/or kV according to patient size, use of iterative reconstruction technique). Reading Location: [facility] Charges/Coding Visit Charges Inpatient E&M: 94228 Init Hosp L3 Procedures Hospitalists Procedures: 46970 Advncd Care Plan 30 Min
--- NOTE | 2024-09-22 12:00 | CASEMGMT ---
Care Management Face to Face with patient for initial transition planning/care coordination assessment in the ED.? This ad copy writer introduced self and role at [facility]. Patient alert and oriented. Patient willing to participate in assessment and is able to answer all questions appropriately.? Care providers, pharmacy, and demographics verified. Patient?s daughterOlivia was also present which patient consented to and Olivia assisted with questions. Admitting Diagnosis: Umbilical hernia with gangrene Other diagnosis history: Including but not limited to: Ovarian Cancer, DM2, HLD, HTN, COPD, CAD, Arthritis, OAB, SEVEN, Diverticulitis, and A-Fib. PCP: Dr. Mims Specialists: Cardio: ANTONIA Joy, Soils Analyst: Dr. Arya Robertson, Urologist: Dr. Wolfe, Oncologist: Dr. Ochoa, and Asphalt Paving Machine Operator, Dr. Green. [facility]erred [facility]acy: [facility] Insurance: AARP: [facility] Prescription Benefit: ?Mostly?. Patient does have a prescription benefit however does have some out of pocket cost. Living Will/HPOA: ??Pretty sure?.? Patient?s daughter, Olivia will look for it the next time she is at home. LNOK: Patient is a .? Patient has a daughter, Olivia, and 2 sons, Daniel and Butch. Living Arrangements: Patient and Olivia live together in a two-story home.? Patient?s living including bedroom and bathroom is all first floor.? Patient stated she has 3 steps leading in/out of the home that she is able to navigate without difficulty. There is also a handrail patient holds on to when needed. Transportation: Patient does not drive.? Patient?s daughter Olivia provides mot transportation and patient also has an 81 year old stud driver who also helps transport when needed.? Patient and her daughter are interested in transportation resources that can also be utilized.? Patient stated she uses the hospital?s transportation services however stated it?s sometimes difficult to get scheduled for quicker turn-around appointments such as a week away. DME: Quad cane, standard walker, wheelchair, RTS, shower bench, grab bar by toilet and shower, lift chair and a C-PAP machine through [employer]. HHC: No history and patient unable to pay out of pocket but would like. SNF/Rehab: Patient had a SNF admission from 2023-June of 2024 at [facility], [place].? Patient described her experience there as ?mixed? and stated she does not want to go back to a SNF. Community Resources: None at this time. Behavioral Health History: Anxiety, Depression and Panic Disorder.? Patient stated she?s on medication to treat which patient stated manages symptoms at times but not always.? Patient started seeing a counselor, Natanael, back in Aprilut only had the one appointment and was hospitalized almost immediately after and hasn?t been able to go back since then.? Patient stated she cannot remember which agency this was through.? Patient verbalized an interest in counseling that would be no cost. Patient verbalized significant financial stressors related to medical bills and does not feel as though she can afford any additional co-pays or bills. Patient goals: Patient wishes to discharge home when medically ready. Patient interested in no cost HHC if available, no or low cost transportation resources, and no cost counseling resources.? rubber worker would recommend an additional inquiry about completing ACD?s during admission.? No other needs/requests identified at this time. Disposition Plan: admission to acute; RN CM/SW to follow for discharge planning needs that may arise. Lisa Ibrahim, GREENHOUSE MANAGER, [employer] W[employer] CONSULTANT
[2024-09-22 12:15] LABS: Magnesium 1.8 mg/dL (1.5-2.2)
[2024-09-22] MEDS: Lactated Ringers 1,000 ML 100 ML IV (14:18)
[2024-09-22 14:19] LABS: Bedside Glucose 78 mg/dL (74-106)
[2024-09-22 14:19] LABS: Bedside Glucose 116 mg/dL (74-106)
[2024-09-22] MEDS: Clindamycin 600 MG/50 ML BAG 100 MG IV ×2 (16:35→21:32)
[2024-09-22] MEDS: Nystatin Powder 15gm Bottle 1 APPLIC TOPICAL ×2 (16:40→21:17)
[2024-09-22 17:16] LABS: Bedside Glucose 97 mg/dL (74-106)
[2024-09-22 17:16] LABS: Bedside Glucose 68 mg/dL (74-106)
[2024-09-22] MEDS: Budesonide Respules 0.5 MG/2 ML AMPUL.NEB. INHALATION (20:03)
[2024-09-22] MEDS: Lactobacillis Acidophilus 1 CAP PO (21:15)
[2024-09-22] MEDS: Doxazosin 4 MG Tablet PO (21:16)
[2024-09-22] MEDS: Menthol/Lanolin/Calamine/Znox 113 GM Tube 1 APPLIC TOPICAL (21:17)
[2024-09-22] MEDS: Metoprolol Tartrate 50 MG Tablet PO (21:33)
[2024-09-22 22:38] LABS: Bedside Glucose 89 mg/dL (74-106)
[2024-09-23] VITALS (11 sets, daily range): BP systolic 149–155; BP diastolic 61–81; PULSE 60–74; RESP 16–18; TEMP 36.4–37.1; O2SAT 93–98
--- NOTE | 2024-09-23 02:16 | NURSING ---
pt asking to have her bs checked, 68, juice given
[2024-09-23] MEDS: Lactated Ringers 1,000 ML 100 ML IV (02:21)
[2024-09-23 02:34] LABS: Bedside Glucose 66 mg/dL (74-106)
[2024-09-23] MEDS: metroNIDAZOLE 500 MG/100 ML BAG 100 MG IV ×3 (05:28→22:21)
[2024-09-23] MEDS: Nystatin Powder 15gm Bottle 1 APPLIC TOPICAL ×3 (05:31→22:26)
[2024-09-23 07:09] LABS: Bedside Glucose 91 mg/dL (74-106)
[2024-09-23] MEDS: Budesonide Respules 0.5 MG/2 ML AMPUL.NEB. INHALATION ×2 (07:31→17:52)
--- NOTE | 2024-09-23 07:58 | CPS ---
Pt instructed to do SMI and Pep on own after lab is done .
--- NOTE | 2024-09-23 08:04 | PCM.PN.SRG ---
Subjective Subjective Patient is still having drainage from her umbilicus Objective Data Objective Data Vital Signs: Vital Signs Temp Pulse Resp BP Pulse Ox O2 Del Method 97.5 F L 61 16 153/71 H 93 Room Air 09/23/24 02:00 09/23/24 07:31 09/23/24 07:31 09/23/24 02:00 09/23/24 02:00 09/23/24 07:31 Oxygen Delivery Method Room Air Weight: 209 lb Body Mass Index (BMI) 38.2 Intake & Output: Intake and Output for Last 24 Hours 09/21/24 09/22/24 09/23/24 23:59 23:59 23:59 Intake Total 1700 / 1700 1100 / 1100 Balance 1700 / 1700 1100 / 1100 Lab / Micro Data 09/22/24 09:06 09/22/24 09:06 Labs: Laboratory Results - last 24 hr 09/22/24 09:06: WBC 8.3, RBC 4.32, Hgb 12.1, Hct 38.2, MCV 88.4, MCH 28.0, MCHC 31.7 L, RDW Std Deviation 49.3 H, RDW Coeff of Nabor 15.2 H, Plt Count 253, MPV 10.5, Immature Gran % (Auto) 0.500, Neut % (Auto) 78.3 H, Lymph % (Auto) 11.4 L, [place] % (Auto) 9.1, Eos % (Auto) 0.5, Baso % (Auto) 0.2, Absolute Neuts (auto) 6.5, Absolute Lymphs (auto) 0.95, Nucleated RBC % 0, PT 18.5 H, INR 1.5, APTT 31.0, Sodium 140, Potassium 3.9, Chloride Direct 102, Carbon Dioxide 27.5, Anion Gap 11, BUN 18, Creatinine 1.06, Estim Creat Clear Calc 48.46 L, Est GFR (MDRD) Non-Af 54 L, BUN/Creatinine Ratio 17.0, Glucose 119 H, Lactic Acid 1.6, Calcium 9.2, Magnesium 1.8, Total Bilirubin 0.30, AST 16, ALT 11, Alkaline Phosphatase 41, Total Protein 6.1, Albumin 3.5, Globulin 2.6, Albumin/Globulin Ratio 1.4, Lipase 12 L 09/22/24 09:19: Urine Color Yellow, Urine Clarity Clear, Urine pH 6.5, Ur Specific [place] 1.010, Urine Protein 15 H, Urine Glucose (UA) Normal, Urine Ketones Negative, Urine Occult Blood Negative, Urine Nitrite Negative, Urine Bilirubin Negative, Urine Urobilinogen Normal, Ur Leukocyte Esterase Negative, Urine RBC 0 SEEN, Urine WBC 0 SEEN, Ur Squamous Epith Cells 0 SEEN, Urine Bacteria 0 SEEN, Urine Mucus 0 SEEN 09/22/24 12:53: POC Glucose 78 09/22/24 14:01: POC Glucose 116 H 09/22/24 16:30: POC Glucose 68 L 09/22/24 16:54: POC Glucose 97 09/22/24 21:40: POC Glucose 89 09/23/24 02:12: POC Glucose 66 L 09/23/24 06:23: POC Glucose 91 Micro: Microbiology 09/22/24 09:15 Stool Stool Occult Blood (BHAVIN) - Final Radiography Diagnostic Testing: Radiology Impression Abdomen/Pelvis CT 09/22/24 10:14 IMPRESSION: 1. Moderate-sized hernia containing fluid fat and bowel with no evidence of strangulation 2. Hepatic steatosis 3. Mild splenomegaly 4. Nonobstructive calculus in the left kidney One or more dose reduction techniques were used (e.g., Automated exposure control, adjustment of the mA and/or kV according to patient size, use of iterative reconstruction technique). Reading [facility] Physical Exam Const oriented x3 and no apparent distress Resp normal respiratory effort GI soft to palpation Palpation: tender Assessment & Plan Assessment/Plan (1) Umbilical hernia with gangrene: PLAN: The patient has a hernia with necrosis of her umbilical stalk. I discussed excising the necrotic tissue and trying to repair as much as I can of the hernia with suture. I discussed not placing mesh as there is infection present. Patient continues to be on Zosyn. I discussed resecting the skin and what ever hernia sac is with possible resection of small bowel. I discussed repair of the hernia primarily with suture. I will also resect the umbilical stalk and close the skin. Patient understands the risks and is willing to proceed. I will wait 1 more day until her Eliquis wears off and operate tomorrow. Carlos Burkett MD Pager: [facility] [address] [place] [address], [address] [place] [address] Office:
[2024-09-23 09:22] LABS: Anion Gap 12 (5-15); BUN 13 mg/dL (4-19); BUN/Creat Ratio 13.5 RATIO (10-20); Calcium 8.5 mg/dL (7.6-11.0); Chloride 103 mmol/L (96-108); Creatinine, Serum 0.95 mg/dL (0.70-1.20); EST Glomerular Filtration Rate 62 (>60); Estimated Creatinine Clearance 54.07 ml/min (50-250); Glucose 94 mg/dL (70-99); Phosphorus 3.4 mg/dL (2.7-4.5); Potassium 4.2 mmol/L (3.3-5.1); Sodium Level 140 mmol/L (133-145)
[2024-09-23] MEDS: Lactobacillis Acidophilus 1 CAP PO ×2 (09:45→22:26)
[2024-09-23] MEDS: Menthol/Lanolin/Calamine/Znox 113 GM Tube 1 APPLIC TOPICAL ×2 (09:45→22:27)
[2024-09-23] MEDS: amLODIPine 5 MG Tablet PO (09:46)
[2024-09-23] MEDS: Tolterodine Tartrate 4 MG CAP.SA PO (09:46)
[2024-09-23] MEDS: DULoxetine Hcl 60 MG Capsule PO (09:46)
[2024-09-23] MEDS: Magnesium Chloride 64 MG Delay Rel.Tablet 128 MG PO (09:46)
[2024-09-23] MEDS: Ezetimibe 10 MG Tablet PO (09:47)
[2024-09-23] MEDS: Cholecalciferol (VIT D3) 25 MCG TABLET (1,000 UNITS) 50 MCG PO (09:47)
[2024-09-23] MEDS: Amiodarone 200 MG Tablet PO (09:47)
[2024-09-23] MEDS: Metoprolol Tartrate 50 MG Tablet PO ×2 (09:47→22:26)
[2024-09-23] MEDS: Fenofibrate 145 MG Tablet PO (09:48)
[2024-09-23] MEDS: Digoxin 125 MCG Tablet PO (09:48)
[2024-09-23] MEDS: levoFLOXacin IV 500 MG/100 ML BAG 100 MG IV (09:55)
--- NOTE | 2024-09-23 11:09 | CASEMGMT ---
Social Work- SW met with pt to conduct SDOH assessment. SW introduced self and role; pt agreeable to meet with pt dtr and son in the room. Pt was anxious and guarded. Pt declined [facility] information stating that all she did was argue with them. Pt reports that she has attempted to get medicaid and just fought with them and does not feel that it's good for me so she just gave up. Pt dtr reports that pt does not qualify. Pt reports that she cannot get aides, but then reported recently being d/c from [facility]. Pt would like [facility] if she she needs HH at d/c. Pt reports that she did well today with therapy. SW provided resources as outlined on SDOH assessment. SW updated RNCM and remains available to follow. ELIA Mares
[2024-09-23 11:48] LABS: Bedside Glucose 127 mg/dL (74-106)
--- NOTE | 2024-09-23 13:30 | PCM.CONS.GEN ---
Assessment & Plan Assessment/Plan (1) Umbilical hernia with gangrene: PLAN: Will order wound cx. OR planned, cont levaquin/flagyl for now. Will follow, thank you HPI Consult Data Date of Consult: 09/23/24 HPI Narrative Reason for Consultation: infected wound HPI Narrative: ANDREW VELAZQUEZ, is a 78 F with h/o diverticulitis, kidney stone, presented with 1-2 months intermittent umbilical drainage and bleeding. Had new onset low grade fever, chills, not feeling well. Some mild abd pain. Came to ED, admitted on levaquin and flagyl, OR planned. Full ROS performed and neg except as noted above. [facility] Medical History Toothache Gastric reflux History of hiatal hernia Wears glasses Cancer Arthritis History of diverticulitis Sleep apnea Shortness of breath on exertion History of echocardiogram Hypertension History of CHF (congestive heart failure) Cardiology follow-up encounter Difficulty swallowing Umbilical discharge Upper back pain on right side Cough Depression Diabetes Kidney stones Non-smoker CPAP (continuous positive airway pressure) dependence Congestive heart failure (CHF) Myocardial infarct History of cancer chemotherapy History of ovarian cancer Hydronephrosis concurrent with and due to calculi of kidney and ureter Acute left flank pain OAB (overactive bladder) Atypical chest pain Urinary frequency Breast cancer screening Grief reaction Non-rheumatic tricuspid valve insufficiency Non-rheumatic mitral regurgitation History of cardioversion (~06/28/22) Chronic atrial fibrillation with RVR Obstructive sleep apnea Chronic obstructive pulmonary disease Atrial fibrillation Depression Preop cardiovascular exam Port-A-Cath in place Ovarian cancer Pelvic mass Ascites Diarrhea Abdominal pain Flu vaccine need Vitamin D deficiency Essential hypertension Diastolic congestive heart failure Atherosclerotic heart disease of [place] coronary artery without angina pectoris Long-term use of high-risk medication SOB (shortness of breath) Pulmonary HTN Panic disorder Hiatal hernia Debility Paroxysmal atrial fibrillation with rapid ventricular response Streptococcal pneumonia Acute exacerbation of chronic obstructive pulmonary disease (COPD) Acute respiratory failure with hypoxia and hypercarbia NSTEMI (non-ST elevated myocardial infarction) Sepsis Junctional rhythm Spastic colon Morbid obesity PAF (paroxysmal atrial fibrillation) HLD (hyperlipidemia) CAD (coronary artery disease) Anxiety DM2 (diabetes mellitus, type 2) Hypokalemia Home Medications ?Medication ?Instructions ?Recorded ?Last Taken ?Type compress.stocking,knee,reg,lrg #2 ea 05/06/19 Unknown Rx lancing device #1 ea 12/29/20 Unknown Rx multivitamin 1 tab PO DAILY 11/25/22 08/27/24 History ezetimibe 10 mg tablet (Zetia) 10 mg PO QDAY cholesterol #90 tabs 02/06/24 08/27/24 Rx magnesium oxide 400 mg PO DAILY supplement 03/22/24 08/27/24 History lisinopril 20 mg tablet 20 mg PO BID #200 TABLETS 04/30/24 08/27/24 Rx duloxetine 60 mg capsule,delayed 60 mg PO DAILY #90 caps 05/08/24 08/27/24 Rx release apixaban 5 mg tablet (Eliquis) 5 mg PO BID #180 tabs 06/14/24 08/25/24 Rx Held on 08/28/24. Instructions: Resume on 09/02/24. aspirin 81 mg chewable tablet 81 mg PO QDAY 07/04/24 08/21/24 History cholecalciferol (vitamin D3) 50 50 mcg PO QDAY 07/04/24 08/27/24 History mcg (2,000 unit) tablet fenofibrate micronized 200 mg 200 mg PO QDAY #90 caps 07/05/24 08/27/24 Rx capsule tolterodine 2 mg tablet 2 mg PO BID #180 tabs 07/10/24 08/27/24 Rx amiodarone 200 mg tablet 200 mg PO QDAY #90 tabs 07/11/24 08/28/24 Rx lorazepam 0.5 mg tablet 0.5 mg PO BID PRN agitation 07/11/24 Unknown History furosemide 40 mg tablet 40 mg PO QDAY #90 tabs 07/19/24 08/27/24 Rx albuterol sulfate 90 mcg/actuation 2 puff inhalation QAM PRN 07/29/24 08/28/24 Rx aerosol inhaler (Ventolin HFA) shortness of breath or wheezing #8.5 grams fluticasone 100 mcg-salmeterol 50 1 inh inhalation BID 3 months #60 07/29/24 08/28/24 Rx mcg/dose blistr powdr for ea inhalation (Wixela Inhub) glimepiride 2 mg tablet 2 mg PO QAM #30 tabs 07/29/24 08/27/24 Rx nystatin 100,000 unit/gram topical 1 applic topical TID 3 months #60 07/29/24 08/26/24 Rx powder (Klayesta) grams digoxin 125 mcg (0.125 mg) tablet 125 mcg PO DAILY HOLD if HR 55 or 08/07/24 08/28/24 Rx below #90 tabs amlodipine 5 mg tablet 5 mg PO QDAY #30 tabs 09/02/24 Unknown Rx doxazosin 4 mg tablet 4 mg PO QHS this is a dose 09/11/24 Unknown Rx increase #90 tabs metoprolol tartrate 100 mg tablet 100 mg PO BID HOLD if BP 100 09/19/24 Unknown Rx systolic or belo or HR 55 or below #180 tabs Allergy/AdvReac Type Severity Reaction Status Date / Time amoxicillin Allergy Severe hives Verified 09/22/24 10:34 chlorhexidine Allergy Unknown red skin Verified 09/22/24 10:34 morphine Allergy Unknown headaches Verified 09/22/24 10:34 labetalol Allergy Unknown Verified 09/22/24 10:34 pitavastatin (From Livalo) Allergy Other Verified 09/22/24 10:34 simvastatin (From Zocor) Allergy Other Verified 09/22/24 10:34 atorvastatin (From Lipitor) AdvReac Unknown myalgias Verified 09/22/24 10:34 budesonide (From Symbicort) AdvReac Other Verified 09/22/24 10:34 formoterol (From Symbicort) AdvReac Other Verified 09/22/24 07:52 hydrocodone (From Vicodin) AdvReac Other Verified 09/22/24 10:34 Jrannoc-PNT-JwN Reductase AdvReac Other Verified 09/22/24 10:34 Inhibitor (Rpulsgb-Rzq-Zyn Reductase Inhibitor) Family History Mother Cancer leukemia Father Respiratory disease Grandfather Myocardial infarction Grandmother Myocardial infarction Son Diabetes Surgical History Hx of cataract extraction Hx of surgical procedure Hx of cystoscopy History of urethral stent Hx of prior ablation treatment Status post catheter ablation of atrial fibrillation History of hysterectomy History of exploratory laparotomy History of cataract surgery History of tonsillectomy and adenoidectomy History of surgery on right wrist History of colonoscopy Social History household members: spouse and children Smoking Status: Never smoker alcohol intake: never substance use type: does not use caffeine: Yes Type: coffee Number of servings: 1 what type of physical activity do you participate in: none seatbelt use: always do you feel safe at home: Yes Physical Exam Const alert and no apparent distress General Appearance: cooperative HEENT normocephalic and head/scalp atraumatic Eyes PERRL and EOMs intact bilaterally Neck supple and No nodes Resp normal air movement and clear to auscultation bilaterally Cardio regular rate and regular rhythm GI soft to palpation and non-distended GI Narrative: mild soreness Extremity General Extremity: edema Skin Skin Narrative: umbilical drainage, mild redness Neuro CN's II-XII intact bilaterally Lab / Micro Data Attestation: I reviewed the patient's lab results. 09/22/24 09:06 09/23/24 07:39 Labs: Laboratory Results - last 24 hr 09/22/24 12:53: POC Glucose 78 09/22/24 14:01: POC Glucose 116 H 09/22/24 16:30: POC Glucose 68 L 09/22/24 16:54: POC Glucose 97 09/22/24 21:40: POC Glucose 89 09/23/24 02:12: POC Glucose 66 L 09/23/24 06:23: POC Glucose 91 09/23/24 07:39: Sodium 140, Potassium 4.2, Chloride Direct 103, Carbon Dioxide 25.0, Anion Gap 12, BUN 13, Creatinine 0.95, Estim Creat Clear Calc 54.07, Est GFR (MDRD) Non-Af 62, BUN/Creatinine Ratio 13.5, Glucose 94, Calcium 8.5, Phosphorus 3.4 09/23/24 11:26: POC Glucose 127 H Micro: Microbiology 09/23/24 07:02 Stool Clostridioides difficile (PCR) - Final 09/22/24 09:15 Stool Stool Occult Blood (BHAVIN) - Final
[2024-09-23] MEDS: Acetaminophen 325 MG Tablet 650 MG PO ×2 (14:28→22:48)
[2024-09-23] MEDS: KCL 20MEQ in D5.45NS 20 MEQ/1,000 ML IV.SOLN. 50 MEQ IV (14:32)
--- NOTE | 2024-09-23 14:42 | PCM.PN.HOSP ---
Reason for Visit Reason for Visit: Diagnoses Umbilical hernia with gangrene (09/22/24) Objective Data Objective Data Vital Signs: Vital Signs Temp Pulse Resp BP Pulse Ox O2 Del Method 98.1 F 60 18 149/61 H 94 Room Air 09/23/24 08:00 09/23/24 09:48 09/23/24 08:00 09/23/24 09:47 09/23/24 08:00 09/23/24 08:00 Oxygen Delivery Method Room Air Weight: 209 lb Body Mass Index (BMI) 38.2 Intake & Output: Intake and Output for Last 24 Hours 09/21/24 09/22/24 09/23/24 23:59 23:59 23:59 Intake Total 1700 / 1700 1300 / 1300 Balance 1700 / 1700 1300 / 1300 Lab / Micro Data 09/22/24 09:06 09/23/24 07:39 Labs: Laboratory Results - last 24 hr 09/22/24 16:30: POC Glucose 68 L 09/22/24 16:54: POC Glucose 97 09/22/24 21:40: POC Glucose 89 09/23/24 02:12: POC Glucose 66 L 09/23/24 06:23: POC Glucose 91 09/23/24 07:39: Sodium 140, Potassium 4.2, Chloride Direct 103, Carbon Dioxide 25.0, Anion Gap 12, BUN 13, Creatinine 0.95, Estim Creat Clear Calc 54.07, Est GFR (MDRD) Non-Af 62, BUN/Creatinine Ratio 13.5, Glucose 94, Calcium 8.5, Phosphorus 3.4 09/23/24 11:26: POC Glucose 127 H Micro: Microbiology 09/23/24 07:02 Stool Clostridioides difficile (PCR) - Final 09/22/24 09:15 Stool Stool Occult Blood (BHAVIN) - Final Physical Exam Narrative Seen and examined Patient's daughter said that she gets hypoglycemia when she has decreased oral intake in 60s to 80s. Usually her sugars are in the 160s normal health. Last night it was 60s to 70s. Started on IV fluid with D5W. Umbilical drainage was little dry today. Patient passing flatus. General: Alert, Oriented x3, Cooperative. BMI 38.2 kg per square HEENT: Atraumatic, PERRLA, EOMI, Normocephalic Oral: Oral mucosa dry. No Gingival or Mucosal Lesions/ Ulcerations Neck: Supple, No JVD, Negative Carotid Bruits Chest wall/Lungs: Air entry diminished in bilateral lung bases. No crepitation/rhonchi Cardiovascular: Irregular rhythm, A-fib, normal S1, Normal S2, systolic murmur Abdomen: Bowel Sounds sluggish, soft, mild tenderness present around umbilical region. No guarding/rigidity. No distention. Long midline abdominal surgical scar : No dysuria. No renal angle tenderness. No suprapubic tenderness. Extremities: No edema, Capillary Refill Less than 3 Seconds Skin: Mild discharge from umbilicus. Musculoskeletal: No Tenderness to Palpation of Joints or Extremities. ROM mildly restricted. Neurological: Cranial nerves II-XII grossly intact, DTR 2+/4. No acute focal neurological deficit. Psych/Mental Status: Flat affect Assessment & Plan Assessment/Plan (1) Umbilical hernia with gangrene: PLAN: Plan This 78-year-old female with history of ovarian cancer admitted with seropurulent/blood mixed discharge from umbilicus since April 2024. Mild low-grade fever and periumbilical abdominal pain 1. Umbilical hernia complicated with infection, ulceration and gangrene of the umbilical skin: [facility] Does not meet criteria for sepsis, heart rate blood pressure or control. No tachypnea or hypoxia. CT abdomen individually reviewed and shows moderate stenosis umbilical hernia containing fat and bowel with no evidence of strangulation. On IV fluid Ringer lactate. Started on IV Levaquin and Flagyl. IV clindamycin ordered for suppression of her toxin and anaerobic infect, x 2 doses patient was seen by surgeon Dr. Burkett. Aspirin and Eliquis on hold. Plan for or on Monday/ of this week. 3/3: Plan for surgery tomorrow. Dr. Burkett explained the surgery to the patient which might need excising the necrotic tissue and trying to repair the hernia. Further depends on the operative findings. 2. Ovarian cancer status post debulking surgery and chemotherapy: Patient on chemotherapy. Home medications does not show active chemotherapy. She follows oncologist Dr. Ezekiel Ochoa. 3. COPD/obstructive sleep apnea/morbid obesity: Patient on maintenance inhaler, Wixela at home. On CPAP 11 cm of water. Patient advised to bring home CPAP. BMI 38.2 kg/m? consistent with morbid obesity. 4. Moderately severe oropharyngeal dysphagia: During previous hospitalization modified barium swallow done on 05/16/2024 showed moderate severe oropharyngeal dysphagia. Speech therapist ordered 5. Chronic A-fib: Twelve-lead EKG done in the ER shows A-fib with slow ventricular rate, [address]-T changes, T inversion in V4-V6. Last EKG in May 16 showed A-fib with RVR. Patient on amiodarone, metoprolol and digoxin continued. Eliquis on hold as mentioned above . 6. CKD stage IIIa: Patient had ROSANA in May 2024. She also had right pyelonephritis from infected obstructive right UPJ stone. She had laser lithotripsy and stent removal in first week of August 2024. She follows Dr. Wolfe 7. Chronic atherosclerotic heart disease without angina and benign essential hypertension: Lisinopril 20 mg twice daily, titrate the dose according to blood pressure 8. Type 2 diabetes mellitus: Last A1c was 5.5% on July 29, 2024: Glucose in BMP is 119. Lactic acid 1.6. Accu-Chek before meals and at bedtime with Humalog sliding scale coverage and hypoglycemia protocol. 3: Hold if glucose less than 130 mg/dl, blood sugar was 66. Patient started on IV fluid D5. Hypoglycemia protocol followed. Glucose is 127. Continue IV fluid D5 W half NaCl plus KCl at 50 mL/h from now till patient goes for surgery. 9. Morbid obesity: Cytologist consult. Weight loss counseling. 10. DVT prophylaxis: bilateral SCDs Living will/advanced directive/end of life care: Patient does have living will or advanced directive. Her power of deputy county attorney for health is her daughter present in the room. After discussion of benefits/risks procedures involved with full code, DNR CC arrest and DNR CC, the patient opted for DNR CC. She had DNRCC record and papers signed during previous articulation by Dr. Arya Robertson. Also informed that her DNRCC status will be suspended for 48 hours after surgery. The patient and her daughter agreed. Patient doesn't want artificial life support including intubation, tube feed, ventilator and/chest compression, central venous catheter, vasopressor and DC shock if needed Total time spent in [id number] encounter in discussion of advanced directive 17 minutes. Microbiology Past 72 Hours 09/22/24 09:15 Stool Stool Occult Blood (BHAVIN) - Final Laboratory Results 09/22/24 09:06: WBC 8.3, RBC 4.32, Hgb 12.1, Hct 38.2, MCV 88.4, MCH 28.0, MCHC 31.7 L, RDW Std Deviation 49.3 H, RDW Coeff of Nabor 15.2 H, Plt Count 253, MPV 10.5, Immature Gran % (Auto) 0.500, Neut % (Auto) 78.3 H, Lymph % (Auto) 11.4 L, Ransom % (Auto) 9.1, Eos % (Auto) 0.5, Baso % (Auto) 0.2, Absolute Neuts (auto) 6.5, Absolute Lymphs (auto) 0.95, Nucleated RBC % 0, PT 18.5 H, INR 1.5, APTT 31.0, Sodium 140, Potassium 3.9, Chloride Direct 102, Carbon Dioxide 27.5, Anion Gap 11, BUN 18, Creatinine 1.06, Estim Creat Clear Calc 48.46 L, Est GFR (MDRD) Non-Af 54 L, BUN/Creatinine Ratio 17.0, Glucose 119 H, Lactic Acid 1.6, Calcium 9.2, Total Bilirubin 0.30, AST 16, ALT 11, Alkaline Phosphatase 41, Total Protein 6.1, Albumin 3.5, Globulin 2.6, Albumin/Globulin Ratio 1.4, Lipase 12 L 09/22/24 09:19: Urine Color Yellow, Urine Clarity Clear, Urine pH 6.5, Ur Specific Marshall 1.010, Urine Protein 15 H, Urine Glucose (UA) Normal, Urine Ketones Negative, Urine Occult Blood Negative, Urine Nitrite Negative, Urine Bilirubin Negative, Urine Urobilinogen Normal, Ur Leukocyte Esterase Negative, Urine RBC 0 SEEN, Urine WBC 0 SEEN, Ur Squamous Epith Cells 0 SEEN, Urine Bacteria 0 SEEN, Urine Mucus 0 SEEN Clinical Impression(s) from Imaging Studies Abdomen/Pelvis CT 09/22/24 10:14 IMPRESSION: 1. Moderate-sized hernia containing fluid fat and bowel with no evidence of strangulation 2. Hepatic steatosis 3. Mild splenomegaly 4. Nonobstructive calculus in the left kidney One or more dose reduction techniques were used (e.g., Automated exposure control, adjustment of the mA and/or kV according to patient size, use of iterative reconstruction technique). Reading Location: [facility] Charges/Coding Visit Charges Inpatient E&M: 00717 Subs Hosp L2
[2024-09-23 17:14] LABS: Bedside Glucose 90 mg/dL (74-106)
[2024-09-23] MEDS: Doxazosin 4 MG Tablet PO (22:27)
[2024-09-23 23:03] LABS: Bedside Glucose 109 mg/dL (74-106)
[2024-09-24] VITALS (22 sets, daily range): BP systolic 134–164; BP diastolic 61–90; PULSE 59–80; RESP 14–20; TEMP 36.4–37.1; O2SAT 92–99; BMI 38.5
[2024-09-24] MEDS: metroNIDAZOLE 500 MG/100 ML BAG 100 MG IV ×3 (06:26→20:58)
[2024-09-24] MEDS: Nystatin Powder 15gm Bottle 1 APPLIC TOPICAL ×3 (06:27→22:00)
--- NOTE | 2024-09-24 07:02 | PCM.PN.SRG ---
Subjective Subjective Patient had no new changes overnight Objective Data Objective Data Vital Signs: Vital Signs Temp Pulse Resp BP Pulse Ox O2 Del Method 97.6 F L 63 16 158/88 H 93 CPAP 09/24/24 04:38 09/24/24 04:38 09/24/24 04:38 09/24/24 04:38 09/24/24 04:38 09/24/24 04:38 Oxygen Delivery Method CPAP Weight: 209 lb Body Mass Index (BMI) 38.2 Intake & Output: Intake and Output for Last 24 Hours 09/22/24 09/23/24 09/24/24 23:59 23:59 23:59 Intake Total 1750 / 1750 3550 / 3850 400 / 400 Output Total 500 / 500 Balance 1750 / 1750 3550 / 3550 -100 / -100 Lab / Micro Data 09/22/24 09:06 09/23/24 07:39 Labs: Laboratory Results - last 24 hr 09/23/24 06:23: POC Glucose 91 09/23/24 07:39: Sodium 140, Potassium 4.2, Chloride Direct 103, Carbon Dioxide 25.0, Anion Gap 12, BUN 13, Creatinine 0.95, Estim Creat Clear Calc 54.07, Est GFR (MDRD) Non-Af 62, BUN/Creatinine Ratio 13.5, Glucose 94, Calcium 8.5, Phosphorus 3.4 09/23/24 11:26: POC Glucose 127 H 09/23/24 16:46: POC Glucose 90 09/23/24 22:28: POC Glucose 109 H Micro: Microbiology 09/23/24 14:00 Wound - Abdominal Gram Stain - Final 09/23/24 07:02 Stool Clostridioides difficile (PCR) - Final 09/22/24 09:15 Stool Stool Occult Blood (BHAVIN) - Final Physical Exam Const oriented x3 and no apparent distress Resp normal respiratory effort GI soft to palpation GI Narrative: Necrotic umbilicus with drainage Assessment & Plan Assessment/Plan (1) Umbilical hernia with gangrene: PLAN: Patient has ventral hernia from her incision that has been having necrosis over the umbilicus. I plan to take her to surgery today to resect the umbilical stalk and try to repair the main hernia with suture. I discussed possibility of bowel resection and I discussed the risks of the surgery such as bleeding, infection, injury to surrounding organs, need for bowel resection. Patient understands the risks and is willing to proceed. Carlos Burkett MD Pager: [facility] [address] [place] [address] [address] [place] [address] Office:
[2024-09-24 07:11] LABS: Bedside Glucose 124 mg/dL (74-106)
[2024-09-24 07:12] LABS: Absolute Lymphocyte Count 1.27 X10^3/uL (0.83-4.51); Absolute Neutrophil Count 6.1 X10^3/uL (2.0-7.7); Basophil# 0.02 X10^3/uL; Basophil% 0.2 % (0-1); Eosinophil# 0.12 X10^3/uL; Eosinophils% 1.4 % (0-5); Hematocrit 43.5 % (37-47); Lymphocyte # 1.27 X10^3/ul (0.83-4.51); Lymphocyte % 15.1 % (19-41); Mean Corp Hgb Conc 32.2 g/dL (32-36); Mean Corpuscular Hgb 28.2 pg (27.0-32.0); Mean Corpuscular Volume 87.7 fL (81-99); Mean Platelet Vol. 10.7 fl (6.2-12.0); Monocyte# 0.87 X10^3/uL; Monocyte% 10.3 % (0-10); NRBC Flagged by Analyzer 0 % (0-5); Neutrophil # 6.09 X10^3/uL (2.7-7.7); Neutrophil % 72.4 % (47-70); Platelet Count 298 K/mm3 (150-450); RBC Distribution Width CV 15.3 % (11.6-14.6); RBC Distribution Width SD 49.1 fl (35.1-43.9); Red Blood Count 4.96 M/mm3 (4.2-5.4); White Blood Count 8.4 K/mm3 (4.4-11.0)
[2024-09-24] MEDS: Budesonide Respules 0.5 MG/2 ML AMPUL.NEB. INHALATION ×2 (07:18→19:17)
[2024-09-24] MEDS: Digoxin 125 MCG Tablet PO (08:13)
[2024-09-24] MEDS: Metoprolol Tartrate 50 MG Tablet PO (08:14)
[2024-09-24 09:10] LABS: AST(SGOT) 18 U/L (<=31); Alanine Aminotransfer ALT/SGPT 9 U/L (<=34); Albumin, Serum 3.6 g/dL (3.4-4.8); Alkaline Phosphatase 46 U/L (35-104); Anion Gap 15 (5-15); BUN 12 mg/dL (4-19); BUN/Creat Ratio 13.6 RATIO (10-20); Bilirubin, Direct 0.17 mg/dL (0.00-0.30); Calcium 9.2 mg/dL (7.6-11.0); Carbon Dioxide 22.1 mmol/L (22.0-29.0); Chloride 105 mmol/L (96-108); Creatinine, Serum 0.91 mg/dL (0.70-1.20); EST Glomerular Filtration Rate 65 (>60); Glucose 113 mg/dL (70-99); Potassium 4.4 mmol/L (3.3-5.1); Protein, Total 6.6 g/dL (5.9-8.4); Sodium Level 142 mmol/L (133-145); Total Bilirubin 0.33 mg/dL (0.00-1.30)
--- NOTE | 2024-09-24 09:42 | NURSING ---
@ 3003, pt picked up by OR staff to go down to AC from OR prep-lalita sent w/ pt
[2024-09-24] MEDS: 0.9% Normal Saline (1000mL) 1,000 ML 15 ML IV (10:21)
[2024-09-24] MEDS: levoFLOXacin IV 500 MG/100 ML BAG 100 MG IV (10:22)
--- NOTE | 2024-09-24 10:23 | PCM.PRE.AN2 ---
ASA Classification* ASA Classification ASA Classification: 3 Assessment & Plan Anesthesia* Anesthesia Assessment Anesthesia Assessment: Discussed sedation and/or anesthesia options, risks, benefits, and alternatives with patient/parents/legal guardian/POA. Questions invited. The patient/parents/legal guardian/POA seems to understand and agrees to proceed with anesthesia plan. Reviewed the physical assessment, medical history, allergy history and patient home medications list prior to surgery/procedure/anesthetic and documented any changes. Performed airway and anesthesia risk assessments. Anesthesia Type Anesthesia Type: General History Source History Obtained from:: Patient and Chart Anesthesia Focused Assessment* Temperature: 98.7 F Pulse Rate: 66 Blood Pressure: 164/90 Respiratory Rate: 18 Pulse Ox: 95 Oxygen Delivery Method: Room Air Airway Assessment Mouth opens: >3 cm Mallampati Score: I Teeth Condition: Caps/Crowns (Patient has several crowns. They are all tight.) and Missing (Several missing teeth. Rest of the teeth are tight.) Neck Range of motion (ROM): Limited ROM Focused Labs Anesthesia Preop lab: CBC WBC 8.4 K/mm3 (4.4-11.0) 09/24/24 06:14 09/24/24 RBC 4.96 M/mm3 (4.2-5.4) 09/24/24 06:14 09/24/24 Hgb 14.0 g/dL (12.0-15.0) 09/24/24 06:14 09/24/24 Hct 43.5 % (37-47) 09/24/24 06:14 09/24/24 Plt Count 298 K/mm3 (150-450) 09/24/24 06:14 09/24/24 CHEMISTRY Potassium 4.4 mmol/L (3.3-5.1) 09/24/24 06:14 09/24/24 Sodium 142 mmol/L (133-145) 09/24/24 06:14 09/24/24 Magnesium 1.8 mg/dL (1.5-2.2) 09/22/24 09:06 09/22/24 Phosphorus 3.4 mg/dL (2.7-4.5) 09/23/24 07:39 09/23/24 BUN 12 mg/dL (4-19) 09/24/24 06:14 09/24/24 Creatinine 0.91 mg/dL (0.70-1.20) 09/24/24 06:14 09/24/24 Glucose 113 mg/dL (70-99) H 09/24/24 06:14 09/24/24 POC Glucose 124 mg/dL (74-106) H 09/24/24 06:27 09/24/24 TSH 3.240 uIU/mL (0.358-3.740) 05/22/24 06:30 05/22/24 COAG PT 18.5 SECONDS (11.7-14.9) H 09/22/24 09:06 09/22/24 Pre-Assessment Diagnosis/Proposed Procedure Planned Operative Procedure(s): Open ventral hernia repair. Possible bowel resection. 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 When Was Last Pacemaker Check QUESTION #4 FULL TEXT: You/Your Family Experience fever (hyperthermia) with Anesthesia Any additional information?: Yes Any Problems With Anesthesia: Yes (After last intubation, patient had trouble with swallowing. Had aspiration) Cholinesterase deficiency: No You/your family experience fever (hyperthermia) with anesthesia: No Last Oral Intake Last Oral intake: Last Oral Intake NPO since 23:55 09/24/24 08:33 Meds taken in AM with sips of Yes 09/24/24 08:33 water? Meds patient instructed to dig/metoprolol @ 0830 09/24/24 08:33 take am of surgery PONV PONV - armature coil winder: PONV - armature coil winder Female HX of Motion Sickness HX of N/V After Surgery Non-Smoker Duration of Surgery greater than 60 minutes Number of Risk Factors PONV Score Height & Weight Height & Weight: Anesthesia: Height & Weight Height 5 ft 1.81 in 09/24/24 08:33 Weight: 94.8 kg 09/24/24 08:33 Body Mass Index (BMI) 38.5 09/24/24 08:33 Respiratory Assessment Respiratory Assessment - armature coil winder: Respiratory Tract Infection Hx - armature coil winder Hx Respiratory Tract Infection No 09/24/24 06:30 STOP Sleep Apnea STOP Sleep Apnea - armature coil winder: STOP Sleep Apnea - armature coil winder Hx Hypertension Yes 09/23/24 11:03 Hx Sleep Apnea Yes 09/22/24 13:29 CPAP Yes 09/22/24 13:29 BIPAP No 09/22/24 13:29 Do you snore loudly (louder than talking or can be heard Do you often feel tired/ fatigued/ sleepy during daytime? Has anyone observed you stop breathing during sleep? STOP Results Positive 09/22/24 13:29 QUESTION #5 FULL TEXT : Do you snore loudly (louder than talking or can be heard through closed doors)? Tobacco Use History Tobacco Use History - armature coil winder: Tobacco Use History - armature coil winder Tobacco Use Smoking Status Never smoker 09/22/24 13:29 Hx Tobacco Use No 09/22/24 13:29 Years Smoking Packs Smoked per Day Smoking Cessation Date was within the last 15 years Hx Smoking Cessation Date Hx Smoking Cessation Counseling Hematologic Medial History Hematologic Hx - armature coil winder: Hematologic Medical Hx - velvet cutter Hx of Blood Transfusion Yes 09/22/24 13:29 Hx of Transfusion in last 3 No 09/22/24 13:29 Months Date of Last Transfusion (if within last 3 months) Ever experience any problems No 09/22/24 13:29 with transfusion(s)? Specify any problems Hx of Preganancy in last 3 N/A 09/22/24 13:29 Months Nurse Filling Out Transfusion ACOEY 09/22/24 13:29 & Questions: Date: 09/22/24 09/22/24 13:29 Time: 13:33 09/22/24 13:29 Patient unable to answer at this time (ie. confused, unrespo /Reproduction History /Reproductive History - armature coil winder: /Reproductive Hx- armature coil winder Hx Now No 09/24/24 06:30 Gestational Age (in weeks): EDC: Hx Hx Para Hx Section SAB No 09/24/24 06:30 Active Medications Active Medications: Current Medications Generic Name Dose Route Start Last Admin Trade Name Bartq PRN Reason Stop Dose Admin Acetaminophen 650 mg 09/22/24 12:38 09/23/24 22:48 Acetaminophen 325 Mg Tablet PO 650 mg Q6H PRN PRN Administration Pain 1-10 Or Fever >100.7 Albuterol/Ipratropium 3 ml 09/22/24 14:29 Ipratropium/Albuterol Sulfate 3 Ml Ampul.Neb INHALATION Q4H.RT PRN SOB/WHEEZING Amiodarone HCl 200 mg 09/23/24 08:00 09/24/24 08:12 Amiodarone 200 Mg Tablet PO Not Given BREAKFAST EM Amlodipine Besylate 5 mg 09/23/24 10:00 09/24/24 08:14 Amlodipine 5 Mg Tablet PO Not Given DAILY EM Protocol Budesonide 0.5 mg 09/22/24 15:30 09/24/24 07:18 Budesonide Respules 0.5 Mg/2 Ml Ampul.Neb. INHALATION 0.5 mg Q12H.RT EM Administration Calamine/Phenol 1 applic 09/22/24 14:00 09/24/24 09:44 Menthol/Lanolin/Calamine/Znox 113 Gm Tube TOPICAL Not Given BID EM Protocol Cholecalciferol 50 mcg 09/23/24 10:00 09/24/24 08:15 Cholecalciferol (Vit D3) 25 Mcg Tablet (1,000 Units) PO Not Given DAILY EM Digoxin 125 mcg 09/23/24 10:00 09/24/24 08:13 Digoxin 125 Mcg Tablet PO 125 mcg DAILY EM Administration Doxazosin Mesylate 4 mg 09/22/24 22:00 09/23/24 22:27 Doxazosin 4 Mg Tablet PO 4 mg QHS EM Administration Protocol Duloxetine HCl 60 mg 09/23/24 10:00 09/24/24 08:13 Duloxetine Hcl 60 Mg Capsule PO Not Given DAILY EM Ezetimibe 10 mg 09/23/24 10:00 09/24/24 08:15 Ezetimibe 10 Mg Tablet PO Not Given DAILY EM Fenofibrate 145 mg 09/23/24 10:00 09/24/24 08:15 Fenofibrate 145 Mg Tablet PO Not Given DAILY EM Glucagon 1 mg 09/22/24 14:31 Glucagon 1 Mg/Ml Syringe IM X1 PRN Hypoglycemia Protocol Metronidazole 500 mg in 100 mls @ 100 mls/hr 09/22/24 22:00 09/24/24 07:26 Flagyl IV Infused Q8 EM Infusion Levofloxacin 500 mg in 100 mls @ 100 mls/hr 09/23/24 10:00 09/24/24 10:22 Levaquin Iv IV 100 mls/hr Q24 EM Administration Dextrose 250 mls @ 0 mls/hr 09/22/24 14:31 Dextrose 10%-Water IV .Q0M PRN HYPOGLYCEMIA Protocol As Directed Potassium Chloride/Dextrose/Sod Cl 20 meq in 1,000 mls @ 50 mls/hr 09/23/24 11:40 09/23/24 14:32 IV 09/25/24 03:39 50 mls/hr .Q20H EM Administration Protocol Sodium Chloride 1,000 mls @ 15 mls/hr 09/24/24 10:10 09/24/24 10:21 IV 09/29/24 23:29 15 mls/hr .Q48H EM Administration Protocol Insulin Human Lispro 0 unit 09/22/24 16:00 09/24/24 09:45 Insulin Lispro 100 Unit/Ml Insuln.Pen SC Not Given ACHS [facility] Protocol Lorazepam 0.5 mg 09/22/24 14:27 Lorazepam 0.5 Mg Tablet PO BID PRN agitation Magnesium Chloride 128 mg 09/23/24 10:00 09/24/24 08:14 Magnesium Chloride 64 Mg Delay Rel.Tablet PO Not Given DAILY [facility] Metoprolol Tartrate 50 mg 09/22/24 22:00 09/24/24 08:14 Metoprolol Tartrate 50 Mg Tablet PO 50 mg BID [facility] Administration Protocol Nystatin 1 applic 09/22/24 14:00 09/24/24 06:27 Nystatin Powder 15gm Bottle TOPICAL 1 applic TID [facility] Administration Protocol Prochlorperazine Edisylate 5 mg 09/22/24 12:38 Prochlorperazine 10 Mg/2 Ml Vial IV Q4H PRN PRN Breakthrough nausea/vomiting Senna/Docusate Sodium 2 tablet 09/22/24 12:38 Senna/Docusate Sodium 1 Tablet PO BID PRN PRN Constipation Sodium Chloride 10 - 40 ml 09/22/24 13:26 0.9% Saline Lock 10 Ml Syringe IV UD PRN Port-a-Cath (VAD)/R Port Flush Sodium Chloride 10 - 40 ml 09/22/24 13:26 0.9 % Nacl (Sterile) Posiflush 10 Ml IV UD PRN Port access or dressing change Tolterodine Tartrate 4 mg 09/23/24 10:00 09/24/24 08:13 Tolterodine Tartrate 4 Mg Cap.Sa PO Not Given DAILY [facility] Medical History Toothache Gastric reflux History of hiatal hernia Wears glasses Cancer Arthritis History of diverticulitis Sleep apnea Shortness of breath on exertion History of echocardiogram Hypertension History of CHF (congestive heart failure) Cardiology follow-up encounter Difficulty swallowing Umbilical discharge Upper back pain on right side Cough Depression Diabetes Kidney stones Non-smoker CPAP (continuous positive airway pressure) dependence Congestive heart failure (CHF) Myocardial infarct History of cancer chemotherapy History of ovarian cancer Hydronephrosis concurrent with and due to calculi of kidney and ureter Acute left flank pain OAB (overactive bladder) Atypical chest pain Urinary frequency Breast cancer screening Grief reaction Non-rheumatic tricuspid valve insufficiency Non-rheumatic mitral regurgitation History of cardioversion (~06/28/22) Chronic atrial fibrillation with RVR Obstructive sleep apnea Chronic obstructive pulmonary disease Atrial fibrillation Depression Preop cardiovascular exam Port-A-Cath in place Ovarian cancer Pelvic mass Ascites Diarrhea Abdominal pain Flu vaccine need Vitamin D deficiency Essential hypertension Diastolic congestive heart failure Atherosclerotic heart disease of [place] coronary artery without angina pectoris Long-term use of high-risk medication SOB (shortness of breath) Pulmonary HTN Panic disorder Hiatal hernia Debility Paroxysmal atrial fibrillation with rapid ventricular response Streptococcal pneumonia Acute exacerbation of chronic obstructive pulmonary disease (COPD) Acute respiratory failure with hypoxia and hypercarbia NSTEMI (non-ST elevated myocardial infarction) Sepsis Junctional rhythm Spastic colon Morbid obesity PAF (paroxysmal atrial fibrillation) HLD (hyperlipidemia) CAD (coronary artery disease) Anxiety DM2 (diabetes mellitus, type 2) Hypokalemia Home Medications ?Medication ?Instructions ?Recorded ?Last Taken ?Type compress.stocking,knee,reg,lrg #2 ea 05/06/19 Unknown Rx lancing device #1 ea 12/29/20 Unknown Rx multivitamin 1 tab PO DAILY 11/25/22 08/27/24 History ezetimibe 10 mg tablet (Zetia) 10 mg PO QDAY cholesterol #90 tabs 02/06/24 08/27/24 Rx magnesium oxide 400 mg PO DAILY supplement 03/22/24 08/27/24 History lisinopril 20 mg tablet 20 mg PO BID #200 TABLETS 04/30/24 08/27/24 Rx duloxetine 60 mg capsule,delayed 60 mg PO DAILY #90 caps 05/08/24 08/27/24 Rx release apixaban 5 mg tablet (Eliquis) 5 mg PO BID #180 tabs 06/14/24 08/25/24 Rx Held on 08/28/24. Instructions: Resume on 09/02/24. aspirin 81 mg chewable tablet 81 mg PO QDAY 07/04/24 08/21/24 History cholecalciferol (vitamin D3) 50 50 mcg PO QDAY 07/04/24 08/27/24 History mcg (2,000 unit) tablet fenofibrate micronized 200 mg 200 mg PO QDAY #90 caps 07/05/24 08/27/24 Rx capsule tolterodine 2 mg tablet 2 mg PO BID #180 tabs 07/10/24 08/27/24 Rx amiodarone 200 mg tablet 200 mg PO QDAY #90 tabs 07/11/24 08/28/24 Rx lorazepam 0.5 mg tablet 0.5 mg PO BID PRN agitation 07/11/24 Unknown History furosemide 40 mg tablet 40 mg PO QDAY #90 tabs 07/19/24 08/27/24 Rx albuterol sulfate 90 mcg/actuation 2 puff inhalation QAM PRN 07/29/24 08/28/24 Rx aerosol inhaler (Ventolin HFA) shortness of breath or wheezing #8.5 grams fluticasone 100 mcg-salmeterol 50 1 inh inhalation BID 3 months #60 07/29/24 08/28/24 Rx mcg/dose blistr powdr for ea inhalation (Wixela Inhub) glimepiride 2 mg tablet 2 mg PO QAM #30 tabs 07/29/24 08/27/24 Rx nystatin 100,000 unit/gram topical 1 applic topical TID 3 months #60 07/29/24 08/26/24 Rx powder (Klayesta) grams digoxin 125 mcg (0.125 mg) tablet 125 mcg PO DAILY HOLD if HR 55 or 08/07/24 09/24/24 Rx below #90 tabs amlodipine 5 mg tablet 5 mg PO QDAY #30 tabs 09/02/24 Unknown Rx doxazosin 4 mg tablet 4 mg PO QHS this is a dose 09/11/24 Unknown Rx increase #90 tabs metoprolol tartrate 100 mg tablet 100 mg PO BID HOLD if BP 100 09/19/24 09/24/24 Rx systolic or belo or HR 55 or below #180 tabs Allergy/AdvReac Type Severity Reaction Status Date / Time amoxicillin Allergy Severe hives Verified 09/22/24 10:34 chlorhexidine Allergy Unknown red skin Verified 09/22/24 10:34 morphine Allergy Unknown headaches Verified 09/22/24 10:34 labetalol Allergy Unknown Verified 09/22/24 10:34 pitavastatin (From Livalo) Allergy Other Verified 09/22/24 10:34 simvastatin (From Zocor) Allergy Other Verified 09/22/24 10:34 atorvastatin (From Lipitor) AdvReac Unknown myalgias Verified 09/22/24 10:34 budesonide (From Symbicort) AdvReac Other Verified 09/22/24 10:34 formoterol (From Symbicort) AdvReac Other Verified 09/22/24 07:52 hydrocodone (From Vicodin) AdvReac Other Verified 09/22/24 10:34 Trnndit-VCS-MzH Reductase AdvReac Other Verified 09/22/24 10:34 Inhibitor (Ostrsje-Ufi-Iuj Reductase Inhibitor) Family History Mother Cancer leukemia Father Respiratory disease Grandfather Myocardial infarction Grandmother Myocardial infarction Son Diabetes Surgical History Hx of cataract extraction Hx of surgical procedure Hx of cystoscopy History of urethral stent Hx of prior ablation treatment Status post catheter ablation of atrial fibrillation History of hysterectomy History of exploratory laparotomy History of cataract surgery History of tonsillectomy and adenoidectomy History of surgery on right wrist History of colonoscopy Social History household members: spouse and children Smoking Status: Never smoker alcohol intake: never substance use type: does not use caffeine: Yes Type: coffee Number of servings: 1 what type of physical activity do you participate in: none seatbelt use: always do you feel safe at home: Yes Review of Systems (Anesthesia) ROS Narrative System reviewed and no additional complaints, except as documented.
[2024-09-24 10:55] LABS: Bedside Glucose 98 mg/dL (74-106)
--- NOTE | 2024-09-24 11:00 | HERN_PTH ---
PATIENT: CAYLA CHISHOLM LOC: MS3 U#:[id number] AGE/SX: 78/F [place] [facility] [place]22/[address]: Dr. King Watkins MD : 1945 BED: 1 DIS: 09/29/2024 SPEC #: [id number] RECD: 09/24/24 12:52 STATUS: BEKAH REGinger #: [id number] JOAO: 09/24/24 11:[address]: Carlos Burkett DEPT: SURGICAL PATHOLOGY RECD BY: Lorenzo Mcclain ENTERED: 09/24/24 12:53 SP TYPE: Hernia OTHR DR: MD Dr. King Lux MD Dr. Robert Leininger, MD Tissues: A - HERNIA B - Small intestine mucous membrane C - Peritoneal cavity, NOS D - HERNIA Procedures: Frozen Section (charge) Immunohistochemical Stains Surgery Specimen Level II Surgery Specimen Level IV IHC Stain ADDITIONAL HEADER OPERATION: Open ventral hernia repair with small bowel resection PRE-OP DIAGNOSIS: Umbilical hernia with gangrene, carcinomatosis TISSUE SUBMITTED: A- Peritoneal mass, B- Small bowel segment, C- Peritoneal stud, D- Hernia sac FROZEN SECTION DIAGNOSIS Peritoneal mass, biopsy: Carcinoma. MS/mr 09/24/2024 MICROSCOPIC DIAGNOSIS A. Peritoneal mass, biopsy: * Carcinoma, consistent with metastasis. B. Small bowel segment, segmental resection: * Widespread metastatic carcinoma with necrosis involving the mesentery and focally invading through the muscularis mucosae and into the submucosa. * Focal serosal adhesions. * Multiple separate tumor nodules in the mesentery. * Tumor involves one of the end resection margins. C. Peritoneal stud, excision: * Hyalinized nodule with focal calcification. * Viable tumor in the surrounding fibroadipose tissue. D. Skin and soft tissue, hernia sac, excision: * Abundant metastatic tumor involving the deep dermis/subcutis - see note and Comment. * Focal metastatic tumor involving the superficial papillary dermis. * IHCs performed: Positive: PAX8, Ki67 (75%). Negative: ER, p53 (wild type) Note: Intradepartmental consultation is pending with HOME PLANNING CONSULTANT SALESPERSON pathologist at [facility]. An ADDENDUM report will follow. COMMENT The previous cytology diagnosis is noted ([id number]). MICROSCOPIC DESCRIPTION Slides are reviewed. These tests were developed and their performance characteristics determined by [facility]. They may not have been cleared or approved by the U.S. Food and Drug Administration. The FDA has determined that such clearance or approval is not necessary. The above immunohistochemical/dualISH markers are ordered and reviewed by the Pathologist. GROSS DESCRIPTION Specimen A-received fresh labeled with the patient's name Cayla Chisholm and designated peritoneal mass is a pink-lee, rubbery, fibrous soft tissue fragment that measures 1.4 x 1.2 x 1.1 cm. Sections shows uniform pink-lee rubbery cut surface. Two physician representative sections are submitted for frozen section.Cassette summary:A1-frozen section sample two sections of specimenA2-remainder of specimenSpecimen B-received in formalin labeled with the patient's name Cayla Chisholm and designated small bowel segment is an unoriented segment of small bowel closed at opposite margins by staple lines. The segment measures 14.7 cm long and has an internal circumference that ranges from 3.2 to 5.6 cm. The serosa is red-brown, ragged, showing extensive fibrous adhesions at one end of the specimen there is a 5.5 x 4.2 cm focus of lee firm plaque-like material within the adhesions. This sectioning shows the plaque like material measures 1.2 cm thick and is confined to the outer surface of the small bowel. A second area of yellow plaque-like material is identified near the midpoint and measures 3.5 x 2.2 and measures 1.2 cm thick. This area is also confined to the outer surface with no involvement of the muscularis propria seen. Of the mucosal small bowel is lee-charles and shows normal mucosal folding. No suspicious areas are seen. On the surface of the mesentery are multiple yellow-lee surface nodules ranging from 0.2 to 0.8 cm in greatest dimension.Cassette summary:B1-shaved margin adjacent staple line closest to the plaqueB2-shaved margin adjacent to opposing staple pbczV7-M6-waxoj bowel including larger plaque focusB6-small bowel including smaller plaque focusB7-physician representative sections of small gikviV5-S1-zuiibvkp mesenteric nodulesSpecimen C-received in formalin labeled the patient's name Cayla Chisholm and designated peritoneal stud is an ovoid portion of yellow-lee, firm tissue that measures 2.0 x 1.6 x 1.2 cm. One surface of the specimen is yellow-lee and smooth, and the opposing surface is red, ragged and is inked black. Sectioning shows a 1.5 cm firm lee gritty nodule 0.1 cm from the black inked margin. 3 physician representative sections of the specimen are submitted in 1 cassette.Specimen D-received in formalin labeled with the patient's name Meryl Chisholm and designated hernia sac are multiple pink-lee to lee-charles ragged, irregularly-shaped, on oriented and disrupted fibrous tissue fragments and skin that aggregate to 12.5 benign 0.5 x 4.5 cm. The skin measures 8.2 x 4.5 cm and is lee slightly wrinkled with no lesions or areas of ulcerations seen. Sectioning through the skin shows an underlying disrupted cavity like focus approximates to 4.6 cm in greatest dimension. The lining of the cavity is lee ragged friable. Sectioning through the cavity is shows firm focally chalky focally rubbery cut surface. Financial Operations Clerk sections are submitted as follows:Cassette summary:K1-K4-yrpidrokcxqwrf sections of smaller chalky vqhjuwG5-W4-zov physician representative sections of skin and underlying cavity 09/25/2024 CPT:[id number], [id number] ADDENDUM ADDENDUM ADDENDUM ADDENDUM ADDENDUM ADDENDUM ADDENDUM ADDENDUM ADDENDUM ADDENDUM ADDENDUM 11/04/2024 17:30 ADDENDUM 11/04/2024 17:30 ADDENDUM 11/04/2024 17:30 ADDENDUM 11/04/2024 17:30 ADDENDUM 11/04/2024 17:30 This addendum is to report the opinion of Dr Moises Kee (HOME PLANNING CONSULTANT SALESPERSON pathologist, [facility]) as well as the additional IHCs performed. 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 Additional IHC performed include CK7 (patchy +) CK20 (negative), CDX2 (negative) and WT-1 (negative nuclear staining). These findings support a gynoecologic origin.
[2024-09-24] MEDS: Bupiv/Epi 0.25% 30 ML Vial (11:29)
--- NOTE | 2024-09-24 12:26 | OP.PCM_ITS ---
Operative Report (Standard) Operative Information Date of Procedure: 09/24/24 Pre-Operative Diagnosis: Umbilical necrosis with ventral hernia Post-Operative Diagnosis: 1. Ventral hernia with umbilical necrosis 2. Carcinomatosis 3. Small bowel involvement Surgery/Procedure Performed: 1. Ventral hernia repair with small bowel resection 2. Biopsy of carcinomatosis medical billing coordinator: Yes User Support Analyst Supervisor: Promise Bond Tasks completed by records assistant: Opening, Closing and Dissecting tissue Type of Anesthesia: General/Regional RN Documented Start/Stop Times: Operation Date: 09/24/24 11:00 Case Time Into Pre-Op 09/24/24 10:06 Out of Pre-Op 09/24/24 10:55 Anesthesia Start 09/24/24 11:00 Into Room 09/24/24 11:00 Procedure Start 09/24/24 11:21 Procedure End 09/24/24 12:20 Anesthesia End 09/24/24 12:23 Out of Room 09/24/24 12:23 Procedure Start Time: 11:21 Procedure Stop Time: 12:20 Select all DRAINS/GRAFTS/IMPLANTS that apply: None Estimated Blood Loss: 5 Specimen collected: Yes Description of specimen(s) removed: Small bowel segment and hernia sac Description of surgery: Patient was brought back to the operating room and general anesthesia was induced. The abdomen was prepped and draped in usual sterile fashion. An elliptical incision was marked around the umbilicus including her prior midline incision. The area was incised and the skin was taken down off of the subcutaneous tissue using electrocautery dissection. At the central area of the umbilicus it was tightly adherent to the small bowel. This was dissected free and appeared to be a mass that was attached to the small bowel that was attached to the umbilical stalk. The mass was sent for pathology and came back frozen section as carcinoma. The small bowel was dissected free distally and proximally and then the area that was stuck to the umbilical stalk was resected. Using a UBALDO stapler the small bowel was divided proximally distally to the umbilical stalk. LigaSure impact was used to take down the mesentery. A corner of each staple line was taken down and a UBALDO stapler was used to form a [id number] functional end-to-end anastomosis between 2 limbs of small bowel. Next a TX 60 was used to close the enterostomy. A 3-0 silk suture was used for a crotch stitch. The bowel was returned to the abdomen. The hernia sac was ian en off of the anterior fascia circumferentially. Next the area was irrigated and suctioned dry. The fascia was closed with interrupted [id number] Prolene sutures. The subcutaneous tissue was irrigated and suctioned dry. The dermis was closed with interrupted 3-0 Vicryl sutures. Skin cyndi were applied. Patient was taken to PACU in stable condition. Surgical Findings: Carcinomatosis of the abdomen confirmed on frozen section. Ventral hernia with tightly adherent small bowel segment to a mass Complications Complications: No Admit VTE Documentation VTE Mechan Device Prophylaxis: SCD's
--- NOTE | 2024-09-24 12:32 | PCM.POST.ANE ---
Anesthesia: Postop Eval I Current Vital Signs Temperature: 97.5 F Pulse Rate: 60 Blood Pressure: 139/70 Respiratory Rate: 14 Pulse Ox: 94 Oxygen Delivery Method: Nasal Cannula Oxygen Flow Rate (L/min): 4 Assessment Airway patent: Yes Spontaneous unlabored respirations: Yes Mental status: Awake and Calm nausea: No Vomiting: No Anesthesia Complication: No Fluid Hydration Crystalloid volume administer (ml): 500 Total IV fluid infused: 500 Progress Note Anesthesia document: Postop Eval 1 completed: Yes
[2024-09-24 13:05] LABS: Bedside Glucose 119 mg/dL (74-106)
--- NOTE | 2024-09-24 14:44 | CHAPLAIN ---
Type of Pastoral Visit ___ Initial Visit ___ Follow-up Visit ___ On-call Visit ___ General Patient Visit ___ Spiritual Assessment ___ Family Conference ___ Bereavement ___ Rapid Response ___ Code Blue ___ Other (describe below) Pastoral Care Referral From ___ Patient ___ Family ___ Nurse ___ Physician ___ Solutions Executive Security ___ Marketing Professor ___ Other (describe below) Sacrament/Intervention ___ Active listening ___ Anointing ___ Faith ___ Bereavement ___ Communion ___ Gisselle exploration ___ ___ Life review ___ Prayer ___ Reconciliation ___ Sacrament of Sick ___ Supportive presence ___ Wedding ___ Other (describe below) Pastoral Comments two attempts made to visit but the patient was not in the room; left a calling card
--- NOTE | 2024-09-24 15:02 | POSTOPAN2_ITS ---
Anesthesia Postop Eval I Sum Postop Eval Completion status Anesthesia document: Postop Eval 1 completed: Yes Anesthesia Postop Eval I Summary Anesthesia Postop Eval I Summary: Anesthesia Postop Eval I: Assessment Summary Airway patent Yes 09/24/24 12:33 APPRISE [email or web address] Spontaneous unlabored Yes 09/24/24 12:33 APPRISE COUNSELOR.[email or web address] respirations Mental status Awake,Calm 09/24/24 12:33 APPRISE COUNSELOR.[email or web address] nausea No 09/24/24 12:33 APPRISE COUNSELOR.[email or web address] Vomiting No 09/24/24 12:33 APPRISE COUNSELOR.[email or web address] Anesthesia Postop Eval I: Fluid Summary Crystalloid volume administer 500 09/24/24 12:33 APPRISE [email or web address].[email or web address] (ml) Colloids volume administered ( ml) Blood Product volume administered (ml) Total IV fluid infused 500 09/24/24 12:33 APPRISE [email or web address].[email or web address] Anesthesia Postop Eval I: Summary Notes Anesthesia Complication No 09/24/24 12:33 APPRISE [email or web address].[email or web address] Anesthesia Complication Comment: Post-operative progress note Anesthesia: Postop Eval II Evaluation Mental status: Awake Pain Level: 2 nausea: No Vomiting: No
--- NOTE | 2024-09-24 15:02 | PCM.POSTANE2 ---
Anesthesia Postop Eval I Sum Postop Eval Completion status Anesthesia document: Postop Eval 1 completed: Yes Anesthesia Postop Eval I Summary Anesthesia Postop Eval I Summary: Anesthesia Postop Eval I: Assessment Summary Airway patent Yes 09/24/24 12:33 CHOPPING MACHINE OPERATOR.[email or web address] Spontaneous unlabored Yes 09/24/24 12:33 CHOPPING MACHINE OPERATOR.[email or web address] respirations Mental status Awake,Calm 09/24/24 12:33 CHOPPING MACHINE OPERATOR.GDOTT nausea No 09/24/24 12:33 CHOPPING MACHINE OPERATOR.GDOTT Vomiting No 09/24/24 12:33 CHOPPING MACHINE OPERATOR.[email or web address] Anesthesia Postop Eval I: Fluid Summary Crystalloid volume administer 500 09/24/24 12:33 CHOPPING MACHINE OPERATOR.GDOTT (ml) Colloids volume administered ( ml) Blood Product volume administered (ml) Total IV fluid infused 500 09/24/24 12:33 CHOPPING MACHINE OPERATOR.GDOTT Anesthesia Postop Eval I: Summary Notes Anesthesia Complication No 09/24/24 12:33 CHOPPING MACHINE OPERATOR.GDOTT Anesthesia Complication Comment: Post-operative progress note Anesthesia: Postop Eval II Evaluation Mental status: Awake Pain Level: 2 nausea: No Vomiting: No
--- NOTE | 2024-09-24 15:08 | CASEMGMT ---
Social Work- SW met with pt dtr and son in room prior to pt returning from PACU. SW was notified by charge nurse on a hospice/palliative consult placed by surgeon. SW verified that pt dtr was interested in consult. Pt dtr reports that she would be, although she works until 5 daily. SW provided education on flexibility of family meetings, as well as hospice vs palliative services. Pt dtr questioning discharge timeline as well as coverage of services. SW provided education that pt would discharge when medically ready per physician. SW provided education on payor sources for services. Pt dtr was visibly overwhelmed with emotion, tearing up and rocking back and forth in pt chair. SW provided emotional supports. Pt dtr agreeable to referral for hospice services. SW placed referral and called to follow up and verify receipt. SOREN remains available to follow. ELIA Mares
--- NOTE | 2024-09-24 15:57 | CHAPLAIN ---
Type of Pastoral Visit _x__ Initial Visit ___ Follow-up Visit ___ On-call Visit ___ General Patient Visit ___ Spiritual Assessment ___ Family Conference ___ Bereavement ___ Rapid Response ___ Code Blue ___ Other (describe below) Pastoral Care Referral From _x__ Patient ___ Family _x__ Nurse ___ Physician ___ [place] ___ Pipeline Executive ___ Other (describe below) Sacrament/Intervention _x__ Active listening ___ Anointing ___ Scientologist ___ Bereavement ___ Communion _x__ Gisselle exploration ___ ___ Life review _x__ Prayer ___ Reconciliation ___ Sacrament of Sick _x__ Supportive presence ___ Wedding ___ Other (describe below) Pastoral Comments after an earlier attempt to visit the patient who was out of the room for her surgery, her nurse called to ask for this visit as patient had received bad news about her cancer; found pt in her bed with two adult children and an uncle in the room; pt was in the last year or so; pt is tearful as she acknowledges that surgery revealed more cancer in her body; family members question why this is happening; pt admits that she has 'ups and downs' in her thoughts about what God is doing; there is honest expressions of the pt and her families pain; listening ear, compassionate words, and offer of the promises of God in such difficult times; pt welcomes prayer; offer of future visit given;
--- NOTE | 2024-09-24 16:29 | PN.HOSP_ITS ---
Reason for Visit Reason for Visit: Diagnoses Umbilical hernia with gangrene (09/22/24) Objective Data Objective Data Vital Signs: Vital Signs Temp Pulse Resp BP Pulse Ox O2 Del Method O2 Flow Rate 97.8 F 69 18 160/77 H 99 Nasal Cannula 2 09/24/24 15:00 09/24/24 15:00 09/24/24 15:00 09/24/24 15:00 09/24/24 15:00 09/24/24 15:25 09/24/24 15:00 Oxygen Flow Rate (L/min) 2 Oxygen Delivery Method Nasal Cannula Weight: 208 lb 15.971 oz Body Mass Index (BMI) 38.5 Intake & Output: Intake and Output for Last 24 Hours 09/22/24 09/23/24 09/24/24 23:59 23:59 23:59 Intake Total 1750 / 1750 3550 / 3850 600 / 600 Output Total 500 / 500 Balance 1750 / 1750 3550 / 3550 100 / 100 Lab / Micro Data 09/25/24 06:05 09/25/24 06:05 Labs: Laboratory Results - last 24 hr 09/23/24 16:46: POC Glucose 90 09/23/24 22:28: POC Glucose 109 H 09/24/24 06:14: WBC 8.4, RBC 4.96, Hgb 14.0, Hct 43.5, MCV 87.7, MCH 28.2, MCHC 32.2, RDW Std Deviation 49.1 H, RDW Coeff of Nabor 15.3 H, Plt Count 298, MPV 10.7, Immature Gran % (Auto) 0.600, Neut % (Auto) 72.4 H, Lymph % (Auto) 15.1 L, [place] % (Auto) 10.3 H, Eos % (Auto) 1.4, Baso % (Auto) 0.2, Absolute Neuts (auto) 6.1, Absolute Lymphs (auto) 1.27, Nucleated RBC % 0, Sodium 142, Potassium 4.4, Chloride Direct 105, Carbon Dioxide 22.1, Anion Gap 15, BUN 12, Creatinine 0.91, Estim Creat Clear Calc 55.30, Est GFR (MDRD) Non-Af 65, BUN/Creatinine Ratio 13.6, Glucose 113 H, Calcium 9.2, Total Bilirubin 0.33, Direct Bilirubin 0.17, AST 18, ALT 9, Alkaline Phosphatase 46, Total Protein 6.6, Albumin 3.6, Globulin 3.0 09/24/24 06:27: POC Glucose 124 H 09/24/24 10:36: POC Glucose 98 09/24/24 12:47: POC Glucose 119 H Micro: Microbiology 09/22/24 14:58 Blood Culture (Wb) - Anticubital Right Blood Culture - Preliminary No growth in 48 hours. 09/22/24 14:50 Blood Culture (Wb) - Anticubital Left Blood Culture - Preliminary No growth in 48 hours. 09/23/24 14:00 Wound - Abdominal Gram Stain - Final 09/23/24 14:00 Wound - Abdominal Wound Culture - Preliminary Gram positive scarlett 09/23/24 07:02 Stool Clostridioides difficile (PCR) - Final 09/22/24 09:15 Stool Stool Occult Blood (BHAVIN) - Final Physical Exam Narrative Seen and examined in the PACU Patient mild drowsy. Discussed with the surgeon. Vitals reviewed. Physical exam: General: Awake, mildly drowsy/lethargy oriented x3, Cooperative. BMI 38.2 kg per square HEENT: Atraumatic, PERRLA, EOMI, Normocephalic Oral: Oral mucosa dry. No Gingival or Mucosal Lesions/ Ulcerations Neck: Supple, No JVD, Negative Carotid Bruits Chest wall/Lungs: Air entry diminished in bilateral lung bases. No crepitation/rhonchi Cardiovascular: Irregular rhythm, A-fib, normal S1, Normal S2, systolic murmur Abdomen: Surgical dressing. BRANT drain with serosanguineous discharge. Long midline abdominal surgical scar : No dysuria. No renal angle tenderness. No suprapubic tenderness. Extremities: No edema, Capillary Refill Less than 3 Seconds Skin: Mild discharge from umbilicus. Musculoskeletal: No Tenderness to Palpation of Joints or Extremities. ROM mildly restricted. Neurological: Cranial nerves II-XII grossly intact, DTR 2+/4. No acute focal neurological deficit. Psych/Mental Status: Flat affect Assessment & Plan Assessment/Plan (1) Umbilical hernia with gangrene: PLAN: Plan This 78-year-old female with history of ovarian cancer admitted with seropurulent/blood mixed discharge from umbilicus since April 2024. Mild low- grade fever and periumbilical abdominal pain 1. Umbilical hernia complicated with infection, ulceration and gangrene of the umbilical skin: Patient is being admitted on [facility] floor. Does not meet criteria for sepsis, heart rate blood pressure or control. No tachypnea or hypoxia. CT abdomen individually reviewed and shows moderate stenosis umbilical hernia containing fat and bowel with no evidence of strangulation. On IV fluid Ringer lactate. Started on IV Levaquin and Flagyl. IV clindamycin ordered for suppression of her toxin and anaerobic infect, x 2 doses patient was seen by surgeon Dr. Burkett. Aspirin and Eliquis on hold. Plan for or on Monday/ of this week. 09/23: Plan for surgery tomorrow. Dr. Burkett explained the surgery to the patient which might need excising the necrotic tissue and trying to repair the hernia. Further depends on the operative findings. 09/24: Patient had ventral hernia repair with small bowel resection and anastomosis. Biopsy of carcinomatosis. Postop diagnosis is ventral hernia with umbilical necrosis, carcinomatosis of small bowel involvement. Discussed with the surgeon Dr. Burkett. Hospice consult appropriate and called. CODE STATUS changed to DNR CC. DNRCC papers signed. 2. Ovarian cancer status post debulking surgery and chemotherapy: Patient on chemotherapy. Home medications does not show active chemotherapy. She follows oncologist Dr. Ezekiel Ochoa. 09/24: As mentioned above there was diffuse carcinomatosis of peritoneal lining and peritoneal cavity. Biopsy was taken. Poor prognosis. Hospice care. 3. COPD/obstructive sleep apnea/morbid obesity: Patient on maintenance inhaler, Wixela at home. On CPAP 11 cm of water. Patient advised to bring home CPAP. BMI 38.2 kg/m? consistent with morbid obesity. 4. Moderately severe oropharyngeal dysphagia: During previous hospitalization modified barium swallow done on 05/16/2024 showed moderate severe oropharyngeal dysphagia. Speech therapist ordered 5. Chronic A-fib: Twelve-lead EKG done in the ER shows A-fib with slow ventricular rate, [address]-T changes, T inversion in V4-V6. Last EKG in May 16 showed A-fib with RVR. Patient on amiodarone, metoprolol and digoxin continued. Eliquis on hold as mentioned above . 6. CKD stage IIIa: Patient had ROSANA in May 2024. She also had right pyelonephritis from infected obstructive right UPJ stone. She had laser lithotripsy and stent removal in first week of August 2024. She follows Dr. Wolfe 7. Chronic atherosclerotic heart disease without angina and benign essential hypertension: Lisinopril 20 mg twice daily, titrate the dose according to blood pressure 8. Type 2 diabetes mellitus: Last A1c was 5.5% on July 29, 2024: Glucose in BMP is 119. Lactic acid 1.6. Accu-Chek before meals and at bedtime with Humalog sliding scale coverage and hypoglycemia protocol. Patient's daughter said that she gets hypoglycemia when she has decreased oral intake in 60s to 80s. Usually her sugars are in the 160s in normal health. 3/3: Hold if glucose less than 130 mg/dl, blood sugar was 66. Patient started on IV fluid D5. Hypoglycemia protocol followed. Glucose is 127. Continue IV fluid D5 W half NaCl plus KCl at 50 mL/h from now till patient goes for surgery. 3/: Continue IV fluid with D5W for nutritional support and rehydration. 9. Morbid obesity: Software Technical Lead consult. Weight loss counseling. 10. DVT prophylaxis: bilateral SCDs Living will/advanced directive/end of life care: Patient does have living will or advanced directive. Her power of collections attorney for health is her daughter present in the room. After discussion of benefits/risks procedures involved with full code, DNR CC arrest and DNR CC, the patient opted for DNR CC. She had DNRCC record and papers signed during previous articulation by Dr. Arya Robertson. Also informed that her DNRCC status will be suspended for 48 hours after surgery. The patient and her daughter agreed. Patient doesn't want artificial life support including intubation, tube feed, ventilator and/chest compression, central venous catheter, vasopressor and DC shock if needed Total time spent in [id number] encounter in discussion of advanced directive 17 minutes. Clinical Impression(s) from Imaging Studies Abdomen/Pelvis CT 09/22/24 10:14 IMPRESSION: 1. Moderate-sized hernia containing fluid fat and bowel with no evidence of strangulation 2. Hepatic steatosis 3. Mild splenomegaly 4. Nonobstructive calculus in the left kidney One or more dose reduction techniques were used (e.g., Automated exposure control, adjustment of the mA and/or kV according to patient size, use of iterative reconstruction technique). Reading Location: [facility] Charges/Coding Visit Charges Inpatient E&M: 77701 Subs Hosp L2
[2024-09-24 17:25] LABS: Bedside Glucose 147 mg/dL (74-106)
[2024-09-24] MEDS: KCL 20MEQ in D5.45NS 20 MEQ/1,000 ML IV.SOLN. 50 MEQ IV (18:32)
[2024-09-24] MEDS: proCHLORPERazine 10 MG/2 ML Vial 5 MG IV (20:39)
[2024-09-24] MEDS: Menthol/Lanolin/Calamine/Znox 113 GM Tube 1 APPLIC TOPICAL (20:57)
[2024-09-24 23:47] LABS: Bedside Glucose 126 mg/dL (74-106)
[2024-09-25] VITALS (12 sets, daily range): BP systolic 156–176; BP diastolic 60–78; PULSE 63–73; RESP 15–18; TEMP 36.4–37; O2SAT 94–99
[2024-09-25] MEDS: metroNIDAZOLE 500 MG/100 ML BAG 100 MG IV ×3 (06:29→21:28)
[2024-09-25] MEDS: Nystatin Powder 15gm Bottle 1 APPLIC TOPICAL ×3 (06:31→21:25)
[2024-09-25] MEDS: proCHLORPERazine 10 MG/2 ML Vial 5 MG IV (06:47)
[2024-09-25 06:54] LABS: Absolute Lymphocyte Count 0.91 X10^3/uL (0.83-4.51); Absolute Neutrophil Count 6.6 X10^3/uL (2.0-7.7); Basophil# 0.03 X10^3/uL; Basophil% 0.4 % (0-1); Eosinophil# 0.01 X10^3/uL; Eosinophils% 0.1 % (0-5); Hematocrit 44.5 % (37-47); Hemoglobin 13.8 g/dL (12.0-15.0); Lymphocyte # 0.91 X10^3/ul (0.83-4.51); Lymphocyte % 10.8 % (19-41); Mean Corpuscular Hgb 27.4 pg (27.0-32.0); Mean Corpuscular Volume 88.3 fL (81-99); Mean Platelet Vol. 10.8 fl (6.2-12.0); Monocyte# 0.78 X10^3/uL; Monocyte% 9.3 % (0-10); NRBC Flagged by Analyzer 0 % (0-5); Neutrophil # 6.63 X10^3/uL (2.7-7.7); Neutrophil % 78.9 % (47-70); Platelet Count 284 K/mm3 (150-450); RBC Distribution Width CV 15.3 % (11.6-14.6); RBC Distribution Width SD 49.1 fl (35.1-43.9); Red Blood Count 5.04 M/mm3 (4.2-5.4); White Blood Count 8.4 K/mm3 (4.4-11.0)
[2024-09-25] MEDS: Budesonide Respules 0.5 MG/2 ML AMPUL.NEB. INHALATION ×2 (07:13→19:01)
[2024-09-25] MEDS: Ipratropium/Albuterol Sulfate 3 ML AMPUL.NEB INHALATION (07:13)
[2024-09-25 07:14] LABS: Anion Gap 14 (5-15); BUN 15 mg/dL (4-19); BUN/Creat Ratio 14.7 RATIO (10-20); Calcium 8.8 mg/dL (7.6-11.0); Carbon Dioxide 20.7 mmol/L (22.0-29.0); Chloride 105 mmol/L (96-108); Creatinine, Serum 1.02 mg/dL (0.70-1.20); EST Glomerular Filtration Rate 57 (>60); Estimated Creatinine Clearance 49.33 ml/min (50-250); Glucose 113 mg/dL (70-99); Potassium 4.1 mmol/L (3.3-5.1); Sodium Level 140 mmol/L (133-145)
[2024-09-25 07:26] LABS: Bedside Glucose 115 mg/dL (74-106)
--- NOTE | 2024-09-25 08:05 | PCM.PN.SRG ---
Subjective Subjective Patient evaluated resting comfortably in bed. She notes incisional discomfort. She denies any nausea, vomiting. She believes she passed flatus this morning. No bowel movement. Objective Data Objective Data Vital Signs: Vital Signs Temp Pulse Resp BP Pulse Ox O2 Del Method O2 Flow Rate 97.6 F L 69 18 176/68 H 94 Room Air 2 09/25/24 05:00 09/25/24 07:13 09/25/24 07:13 09/25/24 05:00 09/25/24 07:13 09/25/24 07:13 09/25/24 05:00 Oxygen Flow Rate (L/min) 2 Oxygen Delivery Method Room Air Weight: 208 lb 15.971 oz Body Mass Index (BMI) 38.5 Intake & Output: Intake and Output for Last 24 Hours 09/23/24 09/24/24 09/25/24 23:59 23:59 23:59 Intake Total 3550 / 3850 1723.33 / 1723.33 Output Total 500 / 500 400 / 400 Balance 3550 / 3550 1223.33 / 1223.33 -400 / -400 Lab / Micro Data 09/25/24 06:05 09/25/24 06:05 Labs: Laboratory Results - last 24 hr 09/24/24 06:14: Sodium 142, Potassium 4.4, Chloride Direct 105, Carbon Dioxide 22.1, Anion Gap 15, BUN 12, Creatinine 0.91, Estim Creat Clear Calc 55.30, Est GFR (MDRD) Non-Af 65, BUN/Creatinine Ratio 13.6, Glucose 113 H, Calcium 9.2, Total Bilirubin 0.33, Direct Bilirubin 0.17, AST 18, ALT 9, Alkaline Phosphatase 46, Total Protein 6.6, Albumin 3.6, Globulin 3.0 09/24/24 10:36: POC Glucose 98 09/24/24 12:47: POC Glucose 119 H 09/24/24 17:07: POC Glucose 147 H 09/24/24 23:10: POC Glucose 126 H 09/25/24 06:05: WBC 8.4, RBC 5.04, Hgb 13.8, Hct 44.5, MCV 88.3, MCH 27.4, MCHC 31.0 L, RDW Std Deviation 49.1 H, RDW Coeff of [place]abor 15.3 H, Plt Count 284, MPV 10.8, Immature Gran % (Auto) 0.500, Neut % (Auto) 78.9 H, Lymph % (Auto) 10.8 L, [place] % (Auto) 9.3, Eos % (Auto) 0.1, Baso % (Auto) 0.4, Absolute Neuts (auto) 6.6, Absolute Lymphs (auto) 0.91, Nucleated RBC % 0, Sodium 140, Potassium 4.1, Chloride Direct 105, Carbon Dioxide 20.7 L, Anion Gap 14, BUN 15, Creatinine 1.02, Estim Creat Clear Calc 49.33 L, Est GFR (MDRD) Non-Af 57 L, BUN/Creatinine Ratio 14.7, Glucose 113 H, Calcium 8.8 09/25/24 06:39: POC Glucose 115 H Micro: Microbiology 09/22/24 14:58 Blood Culture (Wb) - Anticubital Right Blood Culture - Preliminary No growth in 48 hours. 09/22/24 14:50 Blood Culture (Wb) - Anticubital Left Blood Culture - Preliminary No growth in 48 hours. 09/23/24 14:00 Wound - Abdominal Gram Stain - Final 09/23/24 14:00 Wound - Abdominal Wound Culture - Preliminary Gram positive scarlett 09/23/24 07:02 Stool Clostridioides difficile (PCR) - Final 09/22/24 09:15 Stool Stool Occult Blood (BHAVIN) - Final Physical Exam GI GI Narrative: Abdomen- soft, generalized tenderness. Incision c/d/i. No erythema or infection noted. Slight amount of ecchymosis noted. Becky intact. Assessment & Plan Assessment/Plan (1) Umbilical hernia with gangrene: (2) Carcinomatosis: PLAN: Plan I am following this patient in conjunction with Dr. Bond in Dr. Burkett's absence. She will independently evaluate this patient. Labs reviewed. Continue to monitor urine output Continue IV antibiotics for another 24 hours Encourage ambulation and I.S. Continue NPO for today May have PO meds with sip of water May restart Lovenox Hospice/Palliative care consult has been placed Continue icing the incisional area We will continue to monitor this patient Charges/Coding Visit Charges Inpatient E&M: 60055 Subs Hosp L1 (Post-op; no charge)
--- NOTE | 2024-09-25 09:07 | CASEMGMT ---
Addendum entered by Marielle Montiel 09/25/24 09:41: Hospice called and reports that dtr arranged 4:30PM meeting. ELIA Mares Original Note: Social Work- SW called hospice to verify contact with pt family. Hospice reports that when they reached out to pt dtr Olivia, she reported that she would call them back today with a meeting time. No meeting time has been set at this time. ELIA Mares
[2024-09-25] MEDS: DULoxetine Hcl 60 MG Capsule PO (09:11)
[2024-09-25] MEDS: Lactobacillis Acidophilus 1 CAP PO ×2 (09:11→21:24)
[2024-09-25] MEDS: Digoxin 125 MCG Tablet PO (09:11)
[2024-09-25] MEDS: Tolterodine Tartrate 4 MG CAP.SA PO (09:11)
[2024-09-25] MEDS: Metoprolol Tartrate 50 MG Tablet PO ×2 (09:12→20:23)
[2024-09-25] MEDS: Amiodarone 200 MG Tablet PO (09:13)
[2024-09-25] MEDS: Cholecalciferol (VIT D3) 25 MCG TABLET (1,000 UNITS) 50 MCG PO (09:13)
[2024-09-25] MEDS: Fenofibrate 145 MG Tablet PO (09:13)
[2024-09-25] MEDS: Magnesium Chloride 64 MG Delay Rel.Tablet 128 MG PO (09:14)
[2024-09-25] MEDS: levoFLOXacin IV 500 MG/100 ML BAG 100 MG IV (09:18)
[2024-09-25] MEDS: amLODIPine 5 MG Tablet PO (09:19)
[2024-09-25 12:33] LABS: Bedside Glucose 116 mg/dL (74-106)
[2024-09-25] MEDS: Acetaminophen 325 MG Tablet 650 MG PO ×2 (15:01→21:24)
--- NOTE | 2024-09-25 16:15 | PCM.PN.HOSP ---
Reason for Visit Reason for Visit: Diagnoses Disseminated malignant neoplasm, unspecified (09/22/24) Umbilical hernia with gangrene (09/22/24) Objective Data Objective Data Vital Signs: Vital Signs Temp Pulse Resp BP Pulse Ox O2 Del Method O2 Flow Rate 98.6 F 73 16 158/60 H 98 Room Air 2 09/25/24 15:00 09/25/24 15:00 09/25/24 15:00 09/25/24 15:00 09/25/24 15:00 09/25/24 15:00 09/25/24 05:00 Oxygen Flow Rate (L/min) 2 Oxygen Delivery Method Room Air Weight: 208 lb 15.971 oz Body Mass Index (BMI) 38.5 Intake & Output: Intake and Output for Last 24 Hours 09/23/24 09/24/24 09/25/24 23:59 23:59 23:59 Intake Total 3550 / 3850 1723.33 / 1723.33 200 / 200 Output Total 500 / 500 650 / 650 Balance 3550 / 3550 1223.33 / 1223.33 -450 / -450 Lab / Micro Data 09/25/24 06:05 09/25/24 06:05 Labs: Laboratory Results - last 24 hr 09/24/24 17:07: POC Glucose 147 H 09/24/24 23:10: POC Glucose 126 H 09/25/24 06:05: WBC 8.4, RBC 5.04, Hgb 13.8, Hct 44.5, MCV 88.3, MCH 27.4, MCHC 31.0 L, RDW Std Deviation 49.1 H, RDW Coeff of Nabor 15.3 H, Plt Count 284, MPV 10.8, Immature Gran % (Auto) 0.500, Neut % (Auto) 78.9 H, Lymph % (Auto) 10.8 L, [place] % (Auto) 9.3, Eos % (Auto) 0.1, Baso % (Auto) 0.4, Absolute Neuts (auto) 6.6, Absolute Lymphs (auto) 0.91, Nucleated RBC % 0, Sodium 140, Potassium 4.1, Chloride Direct 105, Carbon Dioxide 20.7 L, Anion Gap 14, BUN 15, Creatinine 1.02, Estim Creat Clear Calc 49.33 L, Est GFR (MDRD) Non-Af 57 L, BUN/Creatinine Ratio 14.7, Glucose 113 H, Calcium 8.8 09/25/24 06:39: POC Glucose 115 H 09/25/24 12:11: POC Glucose 116 H Micro: Microbiology 09/22/24 14:58 Blood Culture (Wb) - Anticubital Right Blood Culture - Preliminary No growth in 48 hours. 09/22/24 14:50 Blood Culture (Wb) - Anticubital Left Blood Culture - Preliminary No growth in 48 hours. 09/23/24 14:00 Wound - Abdominal Gram Stain - Final 09/23/24 14:00 Wound - Abdominal Wound Culture - Preliminary Gram positive scarlett 09/23/24 07:02 Stool Clostridioides difficile (PCR) - Final 09/22/24 09:15 Stool Stool Occult Blood (BHAVIN) - Final Physical Exam Narrative Seen and examined Patient is awake alert oriented x 3. BP 158/60 heart rate normal. Pulse ox 98% on room air. Patient doing incentive spirometry can range up to 1100 mL. Physical exam: General: Awake, alert oriented x3, Cooperative. BMI 38.2 kg per square, and mild pain HEENT: Atraumatic, PERRLA, EOMI, Normocephalic Oral: Oral mucosa dry. No Gingival or Mucosal Lesions/ Ulcerations Neck: Supple, No JVD, Negative Carotid Bruits Chest wall/Lungs: Air entry diminished in bilateral lung bases. No crepitation/rhonchi Cardiovascular: Irregular rhythm, A-fib, normal S1, Normal S2, systolic murmur Abdomen: Surgical dressing. BRANT drain with serosanguineous discharge. Long midline abdominal surgical scar. Bowel sounds absent. Soft. : No dysuria. No renal angle tenderness. No suprapubic tenderness. Extremities: No edema, Capillary Refill Less than 3 Seconds Skin: Mild discharge from umbilicus. Musculoskeletal: No Tenderness to Palpation of Joints or Extremities. ROM mildly restricted. Neurological: Cranial nerves II-XII grossly intact, DTR 2+/4. No acute focal neurological deficit. Psych/Mental Status: Flat affect Assessment & Plan Assessment/Plan (1) Umbilical hernia with gangrene: PLAN: Plan This 78-year-old female with history of ovarian cancer admitted with seropurulent/blood mixed discharge from umbilicus since April 2024. Mild low-grade fever and periumbilical abdominal pain 1. Umbilical hernia complicated with infection, ulceration and gangrene of the umbilical skin: Patient is being admitted on [facility] floor. Does not meet criteria for sepsis, heart rate blood pressure or control. No tachypnea or hypoxia. CT abdomen individually reviewed and shows moderate stenosis umbilical hernia containing fat and bowel with no evidence of strangulation. On IV fluid Ringer lactate. Started on IV Levaquin and Flagyl. IV clindamycin ordered for suppression of her toxin and anaerobic infect, x 2 doses patient was seen by surgeon Dr. Burkett. Aspirin and Eliquis on hold. Plan for or on Monday/ of this week. 09/23: Plan for surgery tomorrow. Dr. Burkett explained the surgery to the patient which might need excising the necrotic tissue and trying to repair the hernia. Further depends on the operative findings. 09/24: Patient had ventral hernia repair with small bowel resection and anastomosis on 09/24/2024. Biopsy of carcinomatosis. Postop diagnosis is ventral hernia with umbilical necrosis, carcinomatosis of small bowel involvement. Discussed with the surgeon Dr. Burkett. Hospice consult appropriate and called. CODE STATUS changed to DNR CC. DNRCC papers signed. 09/25: Postop day 1. With hospice meeting in the afternoon today. 2. Ovarian cancer status post debulking surgery and chemotherapy: Patient on chemotherapy. Home medications does not show active chemotherapy. She follows oncologist Dr. Ezekiel Ochoa. 09/24: As mentioned above there was diffuse carcinomatosis of peritoneal lining and peritoneal cavity. Biopsy was taken. Poor prognosis. Hospice care. 3. COPD/obstructive sleep apnea/morbid obesity: Patient on maintenance inhaler, Wixela at home. On CPAP 11 cm of water. Patient advised to bring home CPAP. BMI 38.2 kg/m? consistent with morbid obesity. 4. Moderately severe oropharyngeal dysphagia: During previous hospitalization modified barium swallow done on 05/16/2024 showed moderate severe oropharyngeal dysphagia. Speech therapist ordered 5. Chronic A-fib: Twelve-lead EKG done in the ER shows A-fib with slow ventricular rate, [address]-T changes, T inversion in V4-V6. Last EKG in May 16 showed A-fib with RVR. Patient on amiodarone, metoprolol and digoxin continued. Eliquis on hold as mentioned above . 6. CKD stage IIIa: Patient had ROSANA in May 2024. She also had right pyelonephritis from infected obstructive right UPJ stone. She had laser lithotripsy and stent removal in first week of August 2024. She follows Dr. Wolfe 7. Chronic atherosclerotic heart disease without angina and benign essential hypertension: Lisinopril 20 mg twice daily, titrate the dose according to blood pressure 8. Type 2 diabetes mellitus: Last A1c was 5.5% on July 29, 2024: Glucose in BMP is 119. Lactic acid 1.6. Accu-Chek before meals and at bedtime with Humalog sliding scale coverage and hypoglycemia protocol. Patient's daughter said that she gets hypoglycemia when she has decreased oral intake in 60s to 80s. Usually her sugars are in the 160s in normal health. 3: Hold if glucose less than 130 mg/dl, blood sugar was 66. Patient started on IV fluid D5. Hypoglycemia protocol followed. Glucose is 127. Continue IV fluid D5 W half NaCl plus KCl at 50 mL/h from now till patient goes for surgery. 3/: Continue IV fluid with D5W for nutritional support and rehydration. 35: Glucoses between 110-150. Continue IV fluid D5 half NS +20 mEq KCl 9. Morbid obesity: Sunglass Clip Attacher consult. Weight loss counseling. 10. DVT prophylaxis: bilateral SCDs Microbiology Past 72 Hours 09/22/24 14:58 Blood Culture (Wb) - Anticubital Right Blood Culture - Preliminary No growth in 48 hours. 09/22/24 14:50 Blood Culture (Wb) - Anticubital Left Blood Culture - Preliminary No growth in 48 hours. 09/23/24 14:00 Wound - Abdominal Gram Stain - Final 09/23/24 14:00 Wound - Abdominal Wound Culture - Preliminary Gram positive scarlett 09/23/24 07:02 Stool Clostridioides difficile (PCR) - Final Laboratory Results 09/24/24 17:07: POC Glucose 147 H 09/24/24 23:10: POC Glucose 126 H 09/25/24 06:05: WBC 8.4, RBC 5.04, Hgb 13.8, Hct 44.5, MCV 88.3, MCH 27.4, MCHC 31.0 L, RDW Std Deviation 49.1 H, RDW Coeff of Nabor 15.3 H, Plt Count 284, MPV 10.8, Immature Gran % (Auto) 0.500, Neut % (Auto) 78.9 H, Lymph % (Auto) 10.8 L, [place] % (Auto) 9.3, Eos % (Auto) 0.1, Baso % (Auto) 0.4, Absolute Neuts (auto) 6.6, Absolute Lymphs (auto) 0.91, Nucleated RBC % 0, Sodium 140, Potassium 4.1, Chloride Direct 105, Carbon Dioxide 20.7 L, Anion Gap 14, BUN 15, Creatinine 1.02, Estim Creat Clear Calc 49.33 L, Est GFR (MDRD) Non-Af 57 L, BUN/Creatinine Ratio 14.7, Glucose 113 H, Calcium 8.8 09/25/24 06:39: POC Glucose 115 H 09/25/24 12:11: POC Glucose 116 H Living will/advanced directive/end of life care: Patient does have living will or advanced directive. Her power of measurement department chief clerk for health is her daughter present in the room. After discussion of benefits/risks procedures involved with full code, DNR CC arrest and DNR CC, the patient opted for DNR CC. She had DNRCC record and papers signed during previous articulation by Dr. Arya Robertson. Also informed that her DNRCC status will be suspended for 48 hours after surgery. The patient and her daughter agreed. Patient doesn't want artificial life support including intubation, tube feed, ventilator and/chest compression, central venous catheter, vasopressor and DC shock if needed Total time spent in [id number] encounter in discussion of advanced directive 17 minutes. Clinical Impression(s) from Imaging Studies Abdomen/Pelvis CT 09/22/24 10:14 IMPRESSION: 1. Moderate-sized hernia containing fluid fat and bowel with no evidence of strangulation 2. Hepatic steatosis 3. Mild splenomegaly 4. Nonobstructive calculus in the left kidney One or more dose reduction techniques were used (e.g., Automated exposure control, adjustment of the mA and/or kV according to patient size, use of iterative reconstruction technique). Reading Location: [facility] Charges/Coding Visit Charges Inpatient E&M: 62535 Subs Hosp L2
[2024-09-25] MEDS: KCL 20MEQ in D5.45NS 20 MEQ/1,000 ML IV.SOLN. 50 MEQ IV (16:40)
[2024-09-25 16:55] LABS: Bedside Glucose 116 mg/dL (74-106)
[2024-09-25] MEDS: Doxazosin 4 MG Tablet PO (20:24)
[2024-09-25] MEDS: Menthol/Lanolin/Calamine/Znox 113 GM Tube 1 APPLIC TOPICAL (21:25)
[2024-09-25 22:41] LABS: Bedside Glucose 115 mg/dL (74-106)
[2024-09-26] VITALS (15 sets, daily range): BP systolic 153–177; BP diastolic 75–85; PULSE 64–91; RESP 16–22; TEMP 36.4–36.9; O2SAT 95–99
[2024-09-26] MEDS: metroNIDAZOLE 500 MG/100 ML BAG 100 MG IV ×3 (06:11→22:00)
[2024-09-26] MEDS: Nystatin Powder 15gm Bottle 1 APPLIC TOPICAL ×3 (06:12→22:00)
[2024-09-26 06:27] LABS: Absolute Lymphocyte Count 0.86 X10^3/uL (0.83-4.51); Absolute Neutrophil Count 6.5 X10^3/uL (2.0-7.7); Basophil# 0.03 X10^3/uL; Basophil% 0.4 % (0-1); Eosinophil# 0.08 X10^3/uL; Hematocrit 41.4 % (37-47); Hemoglobin 12.8 g/dL (12.0-15.0); Lymphocyte # 0.86 X10^3/ul (0.83-4.51); Lymphocyte % 10.3 % (19-41); Mean Corp Hgb Conc 30.9 g/dL (32-36); Mean Corpuscular Hgb 27.4 pg (27.0-32.0); Mean Corpuscular Volume 88.5 fL (81-99); Monocyte# 0.79 X10^3/uL; Monocyte% 9.5 % (0-10); NRBC Flagged by Analyzer 0 % (0-5); Neutrophil # 6.52 X10^3/uL (2.7-7.7); Neutrophil % 78.4 % (47-70); Platelet Count 244 K/mm3 (150-450); RBC Distribution Width CV 15.6 % (11.6-14.6); RBC Distribution Width SD 49.7 fl (35.1-43.9); Red Blood Count 4.68 M/mm3 (4.2-5.4); White Blood Count 8.3 K/mm3 (4.4-11.0)
[2024-09-26 06:55] LABS: Bedside Glucose 114 mg/dL (74-106)
[2024-09-26] MEDS: Ipratropium/Albuterol Sulfate 3 ML AMPUL.NEB INHALATION ×3 (07:02→14:36)
[2024-09-26] MEDS: Budesonide Respules 0.5 MG/2 ML AMPUL.NEB. INHALATION ×2 (07:02→19:30)
[2024-09-26 07:46] LABS: Anion Gap 15 (5-15); BUN 16 mg/dL (4-19); BUN/Creat Ratio 16.2 RATIO (10-20); Calcium,Total 8.9 mg/dL (7.6-11.0); Carbon Dioxide 19.6 mmol/L (21.0-32.0); Chloride 106 mmol/L (98-108); Creatinine, Serum 0.97 mg/dL (0.70-1.20); EST Glomerular Filtration Rate 61 (>60); Estimated Creatinine Clearance 51.88 ml/min (50-250); Glucose 123 mg/dL (70-99); Sodium Level 140 mmol/L (133-145)
[2024-09-26] MEDS: Amiodarone 200 MG Tablet PO (08:30)
[2024-09-26] MEDS: Magnesium Chloride 64 MG Delay Rel.Tablet 128 MG PO (08:30)
[2024-09-26] MEDS: Menthol/Lanolin/Calamine/Znox 113 GM Tube 1 APPLIC TOPICAL ×2 (08:30→22:00)
[2024-09-26] MEDS: Cholecalciferol (VIT D3) 25 MCG TABLET (1,000 UNITS) 50 MCG PO (08:30)
[2024-09-26] MEDS: Lactobacillis Acidophilus 1 CAP PO ×2 (08:30→21:59)
[2024-09-26] MEDS: DULoxetine Hcl 60 MG Capsule PO (08:30)
[2024-09-26] MEDS: Fenofibrate 145 MG Tablet PO (08:31)
[2024-09-26] MEDS: Digoxin 125 MCG Tablet PO (08:31)
[2024-09-26] MEDS: Tolterodine Tartrate 4 MG CAP.SA PO (08:31)
[2024-09-26] MEDS: Metoprolol Tartrate 50 MG Tablet PO ×2 (08:32→21:59)
[2024-09-26] MEDS: Ezetimibe 10 MG Tablet PO (08:33)
[2024-09-26] MEDS: amLODIPine 5 MG Tablet PO (08:33)
--- NOTE | 2024-09-26 09:02 | PN.SURG_ITS ---
Subjective Subjective Patient reports she is passing flatus and had a loose bowel movement. She denies nausea or vomiting. Objective Data Objective Data Vital Signs: Vital Signs Temp Pulse Resp BP Pulse Ox O2 Del Method O2 Flow Rate 97.5 F L 72 18 159/76 H 95 Room Air 2 09/26/24 06:13 09/26/24 08:32 09/26/24 07:10 09/26/24 08:32 09/26/24 08:54 09/26/24 08:54 09/25/24 05:00 Oxygen Flow Rate (L/min) 2 Oxygen Delivery Method Room Air Weight: 208 lb 15.971 oz Body Mass Index (BMI) 38.5 Intake & Output: Intake and Output for Last 24 Hours 09/24/24 09/25/24 09/26/24 23:59 23:59 23:59 Intake Total 1723.33 / 1723.33 600 / 600 100 / 100 Output Total 500 / 500 650 / 650 Balance 1223.33 / 1223.33 -50 / -50 100 / 100 Lab / Micro Data 09/26/24 05:36 09/26/24 05:36 Labs: Laboratory Results - last 24 hr 09/25/24 12:11: POC Glucose 116 H 09/25/24 16:36: POC Glucose 116 H 09/25/24 21:32: POC Glucose 115 H 09/26/24 05:36: WBC 8.3, RBC 4.68, Hgb 12.8, Hct 41.4, MCV 88.5, MCH 27.4, MCHC 30.9 L, RDW Std Deviation 49.7 H, RDW Coeff of Nabor 15.6 H, Plt Count 244, MPV 11.0, Immature Gran % (Auto) 0.400, Neut % (Auto) 78.4 H, Lymph % (Auto) 10.3 L, [place] % (Auto) 9.5, Eos % (Auto) 1.0, Baso % (Auto) 0.4, Absolute Neuts (auto) 6.5, Absolute Lymphs (auto) 0.86, Nucleated RBC % 0, Sodium 140, Potassium 4.0, Chloride 106, Carbon Dioxide 19.6 L, Anion Gap 15, BUN 16, Creatinine 0.97, Estim Creat Clear Calc 51.88, Est GFR (MDRD) Non-Af 61, BUN/Creatinine Ratio 16.2, Glucose 123 H, Calcium 8.9 09/26/24 06:09: POC Glucose 114 H Micro: Microbiology 09/22/24 14:58 Blood Culture (Wb) - Anticubital Right Blood Culture - Preliminary No growth in 48 hours. 09/22/24 14:50 Blood Culture (Wb) - Anticubital Left Blood Culture - Preliminary No growth in 48 hours. 09/23/24 14:00 Wound - Abdominal Gram Stain - Final 09/23/24 14:00 Wound - Abdominal Wound Culture - Preliminary Gram positive scarlett 09/23/24 07:02 Stool Clostridioides difficile (PCR) - Final 09/22/24 09:15 Stool Stool Occult Blood (BHAVIN) - Final Physical Exam Const oriented x3 and no apparent distress Resp normal respiratory effort GI soft to palpation and non-tender Assessment & Plan Assessment/Plan (1) Carcinomatosis: (2) Umbilical hernia with gangrene: PLAN: Plan Patient is postoperative day 2 from exploratory laparotomy and resection of small bowel for carcinomatosis and obstruction with gangrene to the skin. The area of small bowel was resected and she had anastomosis. I will start her on some clear liquids today. Continue antibiotics. Patient met with hospice and will likely be discharged to hospice following hospitalization. Carlos Burkett MD Pager: [facility] [address] [place] [address], [address] [place] [address] Office:
--- NOTE | 2024-09-26 10:27 | PCM.PN.ID ---
Physical Exam Narrative Feeling better, minimal abd pain, no fever, eating some, passing some flatus Const alert and no apparent distress General Appearance: cooperative Resp normal air movement and clear to auscultation bilaterally Cardio regular rate and regular rhythm GI soft to palpation, non-tender and non-distended Skin no rashes or lesions noted ID ID: Route of nutrition/ use of supplements: [] Nutritional Intake: [] IV Site: [] Bruno Catheter: [] Assessment & Plan Assessment/Plan (1) Umbilical hernia with gangrene: PLAN: GPR seen on wound cx. Taken to OR 09/24/[address] Burkett for small bowel resection and biopsy of carcinomatosis, cont levaquin/flagyl for short course. Will follow
--- NOTE | 2024-09-26 11:47 | CASEMGMT ---
Social Work- SW received a call from hospice asking for a timeline on discharge, reporting that the plan will be home with hospice. SW collaborated with hospitalist and surgeon who report potential readiness for discharge over the weekend. SW called pt dtr Olivia to provide updates. Olivia reports that she is agreeable to pt discharge over the weekend and that pt did sign with hospice services. Olivia appreciative of support from [facility] staff during this time. SW called hospice to provide updates; hospice reports they will call dtr to set delivery of DME. SW remains available to follow. Plan: Home with [facility] ELIA Mares
[2024-09-26 11:55] LABS: Bedside Glucose 135 mg/dL (74-106)
[2024-09-26] MEDS: levoFLOXacin IV 500 MG/100 ML BAG 100 MG IV (11:57)
--- NOTE | 2024-09-26 12:26 | CCN.REFER ---
DUE TO PATIENT'S TRANSITION TO HOSPICE UPON DC - PATIENT WILL BE DC [facility].
--- NOTE | 2024-09-26 16:27 | PN.HOSP_ITS ---
Reason for Visit Reason for Visit: Diagnoses Disseminated malignant neoplasm, unspecified (09/22/24) Umbilical hernia with gangrene (09/22/24) Objective Data Objective Data Vital Signs: Vital Signs Temp Pulse Resp BP Pulse Ox O2 Del Method O2 Flow Rate 98.1 F 70 18 153/85 H 99 Room Air 2 09/26/24 14:49 09/26/24 15:00 09/26/24 15:00 09/26/24 14:49 09/26/24 14:49 09/26/24 14:51 09/25/24 05:00 Oxygen Flow Rate (L/min) 2 Oxygen Delivery Method Room Air Weight: 208 lb 15.971 oz Body Mass Index (BMI) 38.5 Intake & Output: Intake and Output for Last 24 Hours 09/24/24 09/25/24 09/26/24 23:59 23:59 23:59 Intake Total 1723.33 / 1723.33 600 / 600 1000 / 1000 Output Total 500 / 500 650 / 650 Balance 1223.33 / 1223.33 -50 / -50 1000 / 1000 Lab / Micro Data 09/26/24 05:36 09/26/24 05:36 Labs: Laboratory Results - last 24 hr 09/25/24 16:36: POC Glucose 116 H 09/25/24 21:32: POC Glucose 115 H 09/26/24 05:36: WBC 8.3, RBC 4.68, Hgb 12.8, Hct 41.4, MCV 88.5, MCH 27.4, MCHC 30.9 L, RDW Std Deviation 49.7 H, RDW Coeff of Nabor 15.6 H, Plt Count 244, MPV 11.0, Immature Gran % (Auto) 0.400, Neut % (Auto) 78.4 H, Lymph % (Auto) 10.3 L, [place] % (Auto) 9.5, Eos % (Auto) 1.0, Baso % (Auto) 0.4, Absolute Neuts (auto) 6.5, Absolute Lymphs (auto) 0.86, Nucleated RBC % 0, Sodium 140, Potassium 4.0, Chloride 106, Carbon Dioxide 19.6 L, Anion Gap 15, BUN 16, Creatinine 0.97, Estim Creat Clear Calc 51.88, Est GFR (MDRD) Non-Af 61, BUN/Creatinine Ratio 16.2, Glucose 123 H, Calcium 8.9 09/26/24 06:09: POC Glucose 114 H 09/26/24 11:28: POC Glucose 135 H Micro: Microbiology 09/23/24 14:00 Wound - Abdominal Gram Stain - Final 09/23/24 14:00 Wound - Abdominal Wound Culture - Final Gram positive scarlett 09/22/24 14:58 Blood Culture (Wb) - Anticubital Right Blood Culture - Preliminary No growth in 48 hours. 09/22/24 14:50 Blood Culture (Wb) - Anticubital Left Blood Culture - Preliminary No growth in 48 hours. 09/23/24 07:02 Stool Clostridioides difficile (PCR) - Final 09/22/24 09:15 Stool Stool Occult Blood (BHAVIN) - Final Physical Exam Narrative Seen and examined Patient is awake alert oriented x 3. She passed flatus and had bowel movement. Blood pressure is good 153/85. Patient doing incentive spirometry. Surgeon allowed clear liquids. Physical exam: General: Awake, alert oriented x3, Cooperative. BMI 38.2 kg per square HEENT: Atraumatic, PERRLA, EOMI, Normocephalic Oral: Oral mucosa dry. No Gingival or Mucosal Lesions/ Ulcerations Neck: Supple, No JVD, Negative Carotid Bruits Chest wall/Lungs: Air entry diminished in bilateral lung bases. No crepitation/rhonchi Cardiovascular: Irregular rhythm, A-fib, normal S1, Normal S2, systolic murmur Abdomen: Surgical dressing. BRANT drain with serosanguineous discharge. Long midline abdominal surgical scar. Bowel sounds absent. Soft. : No dysuria. No renal angle tenderness. No suprapubic tenderness. Extremities: No edema, Capillary Refill Less than 3 Seconds Skin: Surgical dressing is dry. Musculoskeletal: No Tenderness to Palpation of Joints or Extremities. ROM mildly restricted. Neurological: Cranial nerves II-XII grossly intact, DTR 2+/4. No acute focal neurological deficit. Psych/Mental Status: Flat affect Assessment & Plan Assessment/Plan (1) Umbilical hernia with gangrene: PLAN: Plan This 78-year-old female with history of ovarian cancer admitted with seropurulent/blood mixed discharge from umbilicus since April 2024. Mild low- grade fever and periumbilical abdominal pain 1. Umbilical hernia complicated with infection, ulceration and gangrene of the umbilical skin: [facility] Does not meet criteria for sepsis, heart rate blood pressure or control. No tachypnea or hypoxia. CT abdomen individually reviewed and shows moderate stenosis umbilical hernia containing fat and bowel with no evidence of strangulation. On IV fluid Ringer lactate. Started on IV Levaquin and Flagyl. IV clindamycin ordered for suppression of her toxin and anaerobic infect, x 2 doses patient was seen by surgeon Dr. Burkett. Aspirin and Eliquis on hold. Plan for or on Monday/ of this week. 09/23: Plan for surgery tomorrow. Dr. Burkett explained the surgery to the patient which might need excising the necrotic tissue and trying to repair the hernia. Further depends on the operative findings. 09/24: Patient had ventral hernia repair with small bowel resection and anastomosis on 09/24/2024. Biopsy of carcinomatosis. Postop diagnosis is ventral hernia with umbilical necrosis, carcinomatosis of small bowel involvement. Discussed with the surgeon Dr. Burkett. Hospice consult appropriate and called. CODE STATUS changed to DNR CC. DNRCC papers signed. 09/25: Postop day 1. With hospice meeting in the afternoon today. 09/26: Postop day 2. Wound culture growing GPR. Continue Levaquin and Flagyl for short course. Patient had bowel movement and flatus. Clear liquid Dilaudid. Discussed with the patient and socially responsible investment adviser. Surgeon note reviewed. Plan for discharge over the weekend possible to hospice 2. Ovarian cancer status post debulking surgery and chemotherapy: Patient on chemotherapy. Home medications does not show active chemotherapy. She follows oncologist Dr. Ezekiel Ochoa. 09/24: As mentioned above there was diffuse carcinomatosis of peritoneal lining and peritoneal cavity. Biopsy was taken. Poor prognosis. Hospice care. 3. COPD/obstructive sleep apnea/morbid obesity: Patient on maintenance inhaler, Wixela at home. On CPAP 11 cm of water. Patient advised to bring home CPAP. BMI 38.2 kg/m? consistent with morbid obesity. 4. Moderately severe oropharyngeal dysphagia: During previous hospitalization modified barium swallow done on 05/16/2024 showed moderate severe oropharyngeal dysphagia. Speech therapist ordered 5. Chronic A-fib: Twelve-lead EKG done in the ER shows A-fib with slow ventricular rate, [address]-T changes, T inversion in V4-V6. Last EKG in May 16 showed A-fib with RVR. Patient on amiodarone, metoprolol and digoxin continued. Eliquis on hold as mentioned above . 6. CKD stage IIIa: Patient had ROSANA in May 2024. She also had right pyelonephritis from infected obstructive right UPJ stone. She had laser lithotripsy and stent removal in first week of August 2024. She follows Dr. Wolfe 7. Chronic atherosclerotic heart disease without angina and benign essential hypertension: Lisinopril 20 mg twice daily, titrate the dose according to blood pressure 8. Type 2 diabetes mellitus: Last A1c was 5.5% on July 29, 2024: Glucose in BMP is 119. Lactic acid 1.6. Accu-Chek before meals and at bedtime with Humalog sliding scale coverage and hypoglycemia protocol. Patient's daughter said that she gets hypoglycemia when she has decreased oral intake in 60s to 80s. Usually her sugars are in the 160s in normal health. 3/3: Hold if glucose less than 130 mg/dl, blood sugar was 66. Patient started on IV fluid D5. Hypoglycemia protocol followed. Glucose is 127. Continue IV fluid D5 W half NaCl plus KCl at 50 mL/h from now till patient goes for surgery. 3/4: Continue IV fluid with D5W for nutritional support and rehydration. 3/5: Glucoses between 110-150. Continue IV fluid D5 half NS +20 mEq KCl 9. Morbid obesity: Ham Curer consult. Weight loss counseling. 10. DVT prophylaxis: bilateral SCDs M Living will/advanced directive/end of life care: Patient does have living will or advanced directive. Her power of photographic developer and printer for health is her daughter present in the room. After discussion of benefits/risks procedures involved with full code, DNR CC arrest and DNR CC, the patient opted for DNR CC. She had DNRCC record and papers signed during previous articulation by Dr. Arya Robertson. Also informed that her DNRCC status will be suspended for 48 hours after surgery. The patient and her daughter agreed. Patient doesn't want artificial life support including intubation, tube feed, ventilator and/chest compression, central venous catheter, vasopressor and DC shock if needed Total time spent in [id number] encounter in discussion of advanced directive 17 minutes. Clinical Impression(s) from Imaging Studies Abdomen/Pelvis CT 09/22/24 10:14 IMPRESSION: 1. Moderate-sized hernia containing fluid fat and bowel with no evidence of strangulation 2. Hepatic steatosis 3. Mild splenomegaly 4. Nonobstructive calculus in the left kidney One or more dose reduction techniques were used (e.g., Automated exposure control, adjustment of the mA and/or kV according to patient size, use of iterative reconstruction technique). Reading Location: [facility] Charges/Coding Visit Charges Inpatient E&M: 28731 Subs Hosp L2
[2024-09-26] MEDS: KCL 20MEQ in D5.45NS 20 MEQ/1,000 ML IV.SOLN. 50 MEQ IV (17:42)
[2024-09-26 17:58] LABS: Bedside Glucose 129 mg/dL (74-106)
[2024-09-26] MEDS: Doxazosin 4 MG Tablet PO (21:59)
[2024-09-26 23:44] LABS: Bedside Glucose 105 mg/dL (74-106)
[2024-09-27] VITALS (9 sets, daily range): BP systolic 130–167; BP diastolic 58–77; PULSE 61–79; RESP 14–17; TEMP 36.3–36.5; O2SAT 95–100
[2024-09-27] MEDS: metroNIDAZOLE 500 MG/100 ML BAG 100 MG IV ×3 (05:19→21:52)
[2024-09-27] MEDS: Nystatin Powder 15gm Bottle 1 APPLIC TOPICAL ×3 (05:20→21:56)
[2024-09-27 07:00] LABS: Bedside Glucose 112 mg/dL (74-106)
[2024-09-27 07:02] LABS: Absolute Lymphocyte Count 0.85 X10^3/uL (0.83-4.51); Absolute Neutrophil Count 5.4 X10^3/uL (2.0-7.7); Basophil# 0.03 X10^3/uL; Basophil% 0.4 % (0-1); Eosinophil# 0.07 X10^3/uL; Hematocrit 42.9 % (37-47); Hemoglobin 13.5 g/dL (12.0-15.0); Lymphocyte # 0.85 X10^3/ul (0.83-4.51); Lymphocyte % 11.9 % (19-41); Mean Corp Hgb Conc 31.5 g/dL (32-36); Mean Corpuscular Hgb 27.7 pg (27.0-32.0); Mean Corpuscular Volume 88.1 fL (81-99); Mean Platelet Vol. 10.7 fl (6.2-12.0); Monocyte# 0.77 X10^3/uL; Monocyte% 10.8 % (0-10); NRBC Flagged by Analyzer 0 % (0-5); Neutrophil # 5.38 X10^3/uL (2.7-7.7); Neutrophil % 75.3 % (47-70); Platelet Count 259 K/mm3 (150-450); RBC Distribution Width CV 15.6 % (11.6-14.6); RBC Distribution Width SD 49.9 fl (35.1-43.9); Red Blood Count 4.87 M/mm3 (4.2-5.4); White Blood Count 7.1 K/mm3 (4.4-11.0)
[2024-09-27] MEDS: Ipratropium/Albuterol Sulfate 3 ML AMPUL.NEB INHALATION ×2 (07:43→11:33)
[2024-09-27] MEDS: Budesonide Respules 0.5 MG/2 ML AMPUL.NEB. INHALATION ×2 (07:43→19:57)
[2024-09-27 08:33] LABS: Anion Gap 15 (5-15); BUN 13 mg/dL (4-19); BUN/Creat Ratio 14.6 RATIO (10-20); Calcium,Total 8.7 mg/dL (7.6-11.0); Carbon Dioxide 17.3 mmol/L (21.0-32.0); Chloride 105 mmol/L (98-108); Creatinine, Serum 0.86 mg/dL (0.70-1.20); EST Glomerular Filtration Rate 70 (>60); Estimated Creatinine Clearance 58.51 ml/min (50-250); Glucose 118 mg/dL (70-99); Potassium 4.1 mmol/L (3.3-5.1); Sodium Level 137 mmol/L (133-145)
[2024-09-27] MEDS: amLODIPine 5 MG Tablet PO (08:47)
[2024-09-27] MEDS: Fenofibrate 145 MG Tablet PO (08:47)
[2024-09-27] MEDS: Cholecalciferol (VIT D3) 25 MCG TABLET (1,000 UNITS) 50 MCG PO (08:48)
[2024-09-27] MEDS: Ezetimibe 10 MG Tablet PO (08:48)
[2024-09-27] MEDS: Magnesium Chloride 64 MG Delay Rel.Tablet 128 MG PO (08:49)
[2024-09-27] MEDS: Tolterodine Tartrate 4 MG CAP.SA PO (08:49)
[2024-09-27] MEDS: Metoprolol Tartrate 50 MG Tablet PO ×2 (08:49→21:51)
[2024-09-27] MEDS: DULoxetine Hcl 60 MG Capsule PO (08:49)
[2024-09-27] MEDS: Digoxin 125 MCG Tablet PO (08:49)
[2024-09-27] MEDS: Lactobacillis Acidophilus 1 CAP PO ×2 (08:49→21:52)
[2024-09-27] MEDS: Amiodarone 200 MG Tablet PO (08:50)
[2024-09-27] MEDS: Menthol/Lanolin/Calamine/Znox 113 GM Tube 1 APPLIC TOPICAL ×2 (08:50→21:56)
[2024-09-27] MEDS: levoFLOXacin IV 500 MG/100 ML BAG 100 MG IV (08:55)
--- NOTE | 2024-09-27 10:29 | PN.ID_ITS ---
Physical Exam Narrative Some mild RLQ pain, no fever Const alert and no apparent distress General Appearance: cooperative Resp normal air movement and clear to auscultation bilaterally Cardio regular rate and regular rhythm GI soft to palpation, non-tender and non-distended Skin no rashes or lesions noted ID ID: Route of nutrition/ use of supplements: [] Nutritional Intake: [] IV Site: [] Bruno Catheter: [] Assessment & Plan Assessment/Plan (1) Umbilical hernia with gangrene: PLAN: GPR seen on wound cx. Taken to OR 09/24/[address] Burkett for small bow el resection and biopsy of carcinomatosis, cont levaquin/flagyl for short course, ok to stop on 09/29. Will follow
--- NOTE | 2024-09-27 11:03 | PN.SURG_ITS ---
Subjective Subjective Patient reports she had a bowel movement but there was some blood in it. She is passing flatus. She reports that she tolerated clears. Objective Data Objective Data Vital Signs: Vital Signs Temp Pulse Resp BP Pulse Ox O2 Del Method O2 Flow Rate 97.4 F L 68 15 158/77 H 97 Room Air 2 09/27/24 08:00 09/27/24 08:49 09/27/24 08:00 09/27/24 08:00 09/27/24 08:00 09/27/24 08:15 09/25/24 05:00 Oxygen Flow Rate (L/min) 2 Oxygen Delivery Method Room Air Weight: 208 lb 15.971 oz Body Mass Index (BMI) 38.5 Intake & Output: Intake and Output for Last 24 Hours 09/25/24 09/26/24 09/27/24 23:59 23:59 23:59 Intake Total 1600 / 1600 3050 / 3050 1368 / 1368 Output Total 650 / 650 Balance 950 / 950 3050 / 3050 1368 / 1368 Lab / Micro Data 09/27/24 06:43 09/27/24 06:43 Labs: Laboratory Results - last 24 hr 09/26/24 11:28: POC Glucose 135 H 09/26/24 17:38: POC Glucose 129 H 09/26/24 23:26: POC Glucose 105 09/27/24 06:31: POC Glucose 112 H 09/27/24 06:43: WBC 7.1, RBC 4.87, Hgb 13.5, Hct 42.9, MCV 88.1, MCH 27.7, MCHC 31.5 L, RDW Std Deviation 49.9 H, RDW Coeff of Nabor 15.6 H, Plt Count 259, MPV 10.7, Immature Gran % (Auto) 0.600, Neut % (Auto) 75.3 H, Lymph % (Auto) 11.9 L, [place] % (Auto) 10.8 H, Eos % (Auto) 1.0, Baso % (Auto) 0.4, Absolute Neuts (auto) 5.4, Absolute Lymphs (auto) 0.85, Nucleated RBC % 0, Sodium 137, Potassium 4.1, Chloride 105, Carbon Dioxide 17.3 L, Anion Gap 15, BUN 13, Creatinine 0.86, Estim Creat Clear Calc 58.51, Est GFR (MDRD) Non-Af 70, BUN/Creatinine Ratio 14.6, Glucose 118 H, Calcium 8.7 Micro: Microbiology 09/23/24 14:00 Wound - Abdominal Gram Stain - Final 09/23/24 14:00 Wound - Abdominal Wound Culture - Final Gram positive scarlett 09/22/24 14:58 Blood Culture (Wb) - Anticubital Right Blood Culture - Preliminary No growth in 48 hours. 09/22/24 14:50 Blood Culture (Wb) - Anticubital Left Blood Culture - Preliminary No growth in 48 hours. 09/23/24 07:02 Stool Clostridioides difficile (PCR) - Final 09/22/24 09:15 Stool Stool Occult Blood (BHAVIN) - Final Assessment & Plan Assessment/Plan (1) Carcinomatosis: PLAN: The patient saw hospice. I will advance her to a full liquid diet. I will stop her IV fluids and resume her home Lasix and her home Eliquis. Continue to observe hemoglobin. Resume oral hypoglycemics Carlos Burkett MD Pager: [facility] [address] [place] [address], [address] [place] [address] Office:
[2024-09-27 11:11] LABS: Bedside Glucose 197 mg/dL (74-106)
[2024-09-27] MEDS: APIXABAN 5 MG TABLET PO ×2 (11:36→21:52)
[2024-09-27] MEDS: Insulin Lispro 100 UNIT/ML INSULN.PEN SC (11:36)
--- NOTE | 2024-09-27 14:34 | PN.HOSP_ITS ---
Reason for Visit Reason for Visit: Diagnoses Disseminated malignant neoplasm, unspecified (09/22/24) Umbilical hernia with gangrene (09/22/24) Objective Data Objective Data Vital Signs: Vital Signs Temp Pulse Resp BP Pulse Ox O2 Del Method O2 Flow Rate 97.7 F L 67 14 143/70 H 97 Room Air 2 09/27/24 14:28 09/27/24 14:28 09/27/24 14:28 09/27/24 14:28 09/27/24 14:28 09/27/24 14:28 09/25/24 05:00 Oxygen Flow Rate (L/min) 2 Oxygen Delivery Method Room Air Weight: 208 lb 15.971 oz Body Mass Index (BMI) 38.5 Intake & Output: Intake and Output for Last 24 Hours 09/25/24 09/26/24 09/27/24 23:59 23:59 23:59 Intake Total 1600 / 1600 3050 / 3050 1368 / 1368 Output Total 650 / 650 Balance 950 / 950 3050 / 3050 1368 / 1368 Lab / Micro Data 09/27/24 06:43 09/27/24 06:43 Labs: Laboratory Results - last 24 hr 09/26/24 17:38: POC Glucose 129 H 09/26/24 23:26: POC Glucose 105 09/27/24 06:31: POC Glucose 112 H 09/27/24 06:43: WBC 7.1, RBC 4.87, Hgb 13.5, Hct 42.9, MCV 88.1, MCH 27.7, MCHC 31.5 L, RDW Std Deviation 49.9 H, RDW Coeff of Nabor 15.6 H, Plt Count 259, MPV 10.7, Immature Gran % (Auto) 0.600, Neut % (Auto) 75.3 H, Lymph % (Auto) 11.9 L, [place] % (Auto) 10.8 H, Eos % (Auto) 1.0, Baso % (Auto) 0.4, Absolute Neuts (auto) 5.4, Absolute Lymphs (auto) 0.85, Nucleated RBC % 0, Sodium 137, Potassium 4.1, Chloride 105, Carbon Dioxide 17.3 L, Anion Gap 15, BUN 13, Creatinine 0.86, Estim Creat Clear Calc 58.51, Est GFR (MDRD) Non-Af 70, BUN/Creatinine Ratio 14.6, Glucose 118 H, Calcium 8.7 09/27/24 10:36: POC Glucose 197 H Micro: Microbiology 09/23/24 14:00 Wound - Abdominal Gram Stain - Final 09/23/24 14:00 Wound - Abdominal Wound Culture - Final Gram positive scarlett 09/22/24 14:58 Blood Culture (Wb) - Anticubital Right Blood Culture - Preliminary No growth in 48 hours. 09/22/24 14:50 Blood Culture (Wb) - Anticubital Left Blood Culture - Preliminary No growth in 48 hours. 09/23/24 07:02 Stool Clostridioides difficile (PCR) - Final 09/22/24 09:15 Stool Stool Occult Blood (BHAVIN) - Final Physical Exam Narrative Seen and examined Patient is awake alert oriented x 3. She passed flatus and had bowel movement. Blood pressure is good 153/85. Patient doing incentive spirometry. Surgeon allowed clear liquids. Physical exam: General: Awake, alert oriented x3, Cooperative. BMI 38.2 kg per square HEENT: Atraumatic, PERRLA, EOMI, Normocephalic Oral: Oral mucosa dry. No Gingival or Mucosal Lesions/ Ulcerations Neck: Supple, No JVD, Negative Carotid Bruits Chest wall/Lungs: Air entry diminished in right lung base, possible right basilar atelectasis. No crepitation Cardiovascular: Irregular rhythm, A-fib, normal S1, Normal S2, systolic murmur Abdomen: Surgical dressing. Long midline abdominal surgical scar. Bowel sounds absent. Soft. : No dysuria. No renal angle tenderness. No suprapubic tenderness. Extremities: No edema, Capillary Refill Less than 3 Seconds Skin: Surgical dressing is dry. Musculoskeletal: No Tenderness to Palpation of Joints or Extremities. ROM mildly restricted. Neurological: Cranial nerves II-XII grossly intact, DTR 2+/4. No acute focal neurological deficit. Psych/Mental Status: Flat affect Assessment & Plan Assessment/Plan (1) Umbilical hernia with gangrene: PLAN: Plan This 78-year-old female with history of ovarian cancer admitted with seropurulent/blood mixed discharge from umbilicus since April 2024. Mild low- grade fever and periumbilical abdominal pain 1. Umbilical hernia complicated with infection, ulceration and gangrene of the umbilical skin: [facility] Does not meet criteria for sepsis, heart rate blood pressure or control. No tachypnea or hypoxia. CT abdomen individually reviewed and shows moderate stenosis umbilical hernia containing fat and bowel with no evidence of strangulation. On IV fluid Ringer lactate. Started on IV Levaquin and Flagyl. IV clindamycin ordered for suppression of her toxin and anaerobic infect, x 2 doses patient was seen by surgeon Dr. Burkett. Aspirin and Eliquis on hold. Plan for or on Monday/ of this week. 09/23: Plan for surgery tomorrow. Dr. Burkett explained the surgery to the patient which might need excising the necrotic tissue and trying to repair the hernia. Further depends on the operative findings. 09/24: Patient had ventral hernia repair with small bowel resection and anastomosis on 09/24/2024. Biopsy of carcinomatosis. Postop diagnosis is ventral hernia with umbilical necrosis, carcinomatosis of small bowel involvement. Discussed with the surgeon Dr. Burkett. Hospice consult appropriate and called. CODE STATUS changed to DNR CC. DNRCC papers signed. 09/25: Postop day 1. With hospice meeting in the afternoon today. 09/26: Postop day 2. Wound culture growing GPR. Continue Levaquin and Flagyl for short course. Patient had bowel movement and flatus. Clear liquid Dilaudid. Discussed with the patient and addiction social worker. Surgeon note reviewed. Plan for discharge over the weekend possible to hospice 09/27 : Positive fluid about 10 L. Mild metabolic acidosis, bicarb 17.3 with anion gap 15. Right lung base decreased breath sound. IV Lasix 20 mg ordered. Oral 40 mg to resume from tomorrow. Earlier IV fluid was discontinued and full liquid advanced by Dr. Burkett. 2. Ovarian cancer status post debulking surgery and chemotherapy: Patient on chemotherapy. Home medications does not show active chemotherapy. She follows oncologist Dr. Ezekiel Ochoa. 09/24: As mentioned above there was diffuse carcinomatosis of peritoneal lining and peritoneal cavity. Biopsy was taken. Poor prognosis. Hospice care. 3. COPD/obstructive sleep apnea/morbid obesity: Patient on maintenance inhaler, Wixela at home. On CPAP 11 cm of water. Patient advised to bring home CPAP. BMI 38.2 kg/m? consistent with morbid obesity. 4. Moderately severe oropharyngeal dysphagia: During previous hospitalization modified barium swallow done on 05/16/2024 showed moderate severe oropharyngeal dysphagia. Speech therapist ordered 5. Chronic A-fib: Twelve-lead EKG done in the ER shows A-fib with slow ventricular rate, [address]-T changes, T inversion in V4-V6. Last EKG in May 16 showed A-fib with RVR. Patient on amiodarone, metoprolol and digoxin continued. Eliquis on hold as mentioned above . 09/27: Eliquis resumed 6. CKD stage IIIa: Patient had ROSANA in May 2024. She also had right pyelonephritis from infected obstructive right UPJ stone. She had laser lithotripsy and stent removal in first week of August 2024. She follows Dr. Wolfe 09/27: Antihypertensive medications resumed. 7. Chronic atherosclerotic heart disease without angina and benign essential hypertension: Lisinopril 20 mg twice daily, titrate the dose according to blood pressure 8. Type 2 diabetes mellitus: Last A1c was 5.5% on July 29, 2024: Glucose in BMP is 119. Lactic acid 1.6. Accu-Chek before meals and at bedtime with Humalog sliding scale coverage and hypoglycemia protocol. Patient's daughter said that she gets hypoglycemia when she has decreased oral intake in 60s to 80s. Usually her sugars are in the 160s in normal health. 09/23: Hold if glucose less than 130 mg/dl, blood sugar was 66. Patient started on IV fluid D5. Hypoglycemia protocol followed. Glucose is 127. Continue IV fluid D5 W half NaCl plus KCl at 50 mL/h from now till patient goes for surgery. 09/24: Continue IV fluid with D5W for nutritional support and rehydration. 09/25: Glucoses between 110-150. Continue IV fluid D5 half NS +20 mEq KCl 09/26: Continue [place]. Glimepiride from tomorrow a.m. with holding parameters 9. Morbid obesity: Thermal Spray Operator consult. Weight loss counseling. 10. DVT prophylaxis: bilateral SCDs Microbiology Past 72 Hours 09/23/24 14:00 Wound - Abdominal Gram Stain - Final 09/23/24 14:00 Wound - Abdominal Wound Culture - Final Gram positive scarlett 09/22/24 14:58 Blood Culture (Wb) - Anticubital Right Blood Culture - Preliminary No growth in 48 hours. 09/22/24 14:50 Blood Culture (Wb) - Anticubital Left Blood Culture - Preliminary No growth in 48 hours. Laboratory Results 09/26/24 17:38: POC Glucose 129 H 09/26/24 23:26: POC Glucose 105 09/27/24 06:31: POC Glucose 112 H 09/27/24 06:43: WBC 7.1, RBC 4.87, Hgb 13.5, Hct 42.9, MCV 88.1, MCH 27.7, MCHC 31.5 L, RDW Std Deviation 49.9 H, RDW Coeff of Nabor 15.6 H, Plt Count 259, MPV 10.7, Immature Gran % (Auto) 0.600, Neut % (Auto) 75.3 H, Lymph % (Auto) 11.9 L, [place] % (Auto) 10.8 H, Eos % (Auto) 1.0, Baso % (Auto) 0.4, Absolute Neuts (auto) 5.4, Absolute Lymphs (auto) 0.85, Nucleated RBC % 0, Sodium 137, Potassium 4.1, Chloride 105, Carbon Dioxide 17.3 L, Anion Gap 15, BUN 13, Creatinine 0.86, Estim Creat Clear Calc 58.51, Est GFR (MDRD) Non-Af 70, BUN/Creatinine Ratio 14.6, Glucose 118 H, Calcium 8.7 09/27/24 10:36: POC Glucose 197 H Living will/advanced directive/end of life care: Patient does have living will or advanced directive. Her power of immigration attorney for health is her daughter present in the room. After discussion of benefits/risks procedures involved with full code, DNR CC arrest and DNR CC, the patient opted for DNR CC. She had DNRCC record and papers signed during previous articulation by Dr. Arya Robertson. Also informed that her DNRCC status will be suspended for 48 hours after surgery. The patient and her daughter agreed. Patient doesn't want artificial life support including intubation, tube feed, ventilator and/chest compression, central venous catheter, vasopressor and DC shock if needed Total time spent in [id number] encounter in discussion of advanced directive 17 minutes. Clinical Impression(s) from Imaging Studies Abdomen/Pelvis CT 09/22/24 10:14 IMPRESSION: 1. Moderate-sized hernia containing fluid fat and bowel with no evidence of strangulation 2. Hepatic steatosis 3. Mild splenomegaly 4. Nonobstructive calculus in the left kidney One or more dose reduction techniques were used (e.g., Automated exposure control, adjustment of the mA and/or kV according to patient size, use of iterative reconstruction technique). Reading Location: [facility] Charges/Coding Visit Charges Inpatient E&M: 50714 Subs Hosp L2
[2024-09-27] MEDS: Furosemide 20 MG/2 ML VIAL IV (15:42)
[2024-09-27] MEDS: 0.9% Saline Lock 10 ML Syringe IV (15:47)
[2024-09-27 16:32] LABS: Bedside Glucose 127 mg/dL (74-106)
[2024-09-27] MEDS: Lisinopril 10 MG Tablet PO (17:42)
[2024-09-27] MEDS: Doxazosin 4 MG Tablet PO (21:52)
[2024-09-27 22:47] LABS: Bedside Glucose 113 mg/dL (74-106)
[2024-09-28] VITALS (9 sets, daily range): BP systolic 124–155; BP diastolic 62–80; PULSE 67–76; RESP 14–20; TEMP 36.3–37; O2SAT 94–98
[2024-09-28] MEDS: Lisinopril 10 MG Tablet PO (06:31)
[2024-09-28] MEDS: Nystatin Powder 15gm Bottle 1 APPLIC TOPICAL ×3 (06:31→22:53)
[2024-09-28] MEDS: metroNIDAZOLE 500 MG/100 ML BAG 100 MG IV (06:42)
[2024-09-28 07:04] LABS: Bedside Glucose 109 mg/dL (74-106)
[2024-09-28] MEDS: Budesonide Respules 0.5 MG/2 ML AMPUL.NEB. INHALATION ×2 (07:43→18:51)
[2024-09-28] MEDS: Ipratropium/Albuterol Sulfate 3 ML AMPUL.NEB INHALATION ×2 (07:43→12:02)
[2024-09-28 08:11] LABS: Absolute Lymphocyte Count 1.06 X10^3/uL (0.83-4.51); Absolute Neutrophil Count 6.1 X10^3/uL (2.0-7.7); Basophil# 0.03 X10^3/uL; Basophil% 0.4 % (0-1); Eosinophil# 0.08 X10^3/uL; Hematocrit 41.6 % (37-47); Hemoglobin 13.2 g/dL (12.0-15.0); Lymphocyte # 1.06 X10^3/ul (0.83-4.51); Lymphocyte % 13.2 % (19-41); Mean Corp Hgb Conc 31.7 g/dL (32-36); Mean Corpuscular Hgb 27.4 pg (27.0-32.0); Mean Corpuscular Volume 86.3 fL (81-99); Mean Platelet Vol. 10.9 fl (6.2-12.0); Monocyte# 0.71 X10^3/uL; Monocyte% 8.9 % (0-10); NRBC Flagged by Analyzer 0 % (0-5); Neutrophil % 76.1 % (47-70); Platelet Count 262 K/mm3 (150-450); RBC Distribution Width CV 15.6 % (11.6-14.6); Red Blood Count 4.82 M/mm3 (4.2-5.4)
--- NOTE | 2024-09-28 08:11 | PN.SURG_ITS ---
Subjective Subjective Patient seen and examined during AM rounds. She is found sitting out of bed in the chair. She is visiting with her daughter. She denies any significant abdominal pain. She reports ongoing loose stools. She denies any nausea in response to her liquid diet. Her daughter questions when her mother may be suitable for discharge to home as she is trying to arrange for hospice to ready their home. Objective Data Objective Data Vital Signs: Vital Signs Temp Pulse Resp BP Pulse Ox O2 Del Method O2 Flow Rate 98.6 F 68 18 151/62 H 97 Room Air 2 09/28/24 06:26 09/28/24 06:26 09/28/24 06:26 09/28/24 06:26 09/28/24 06:26 09/28/24 06:26 09/25/24 05:00 Oxygen Flow Rate (L/min) 2 Oxygen Delivery Method Room Air Weight: 208 lb 15.971 oz Body Mass Index (BMI) 38.5 Intake & Output: Intake and Output for Last 24 Hours 09/26/24 09/27/24 09/28/24 23:59 23:59 23:59 Intake Total 3050 / 3050 2868 / 2868 300 / 300 Output Total 1000 / 1000 Balance 3050 / 3050 1868 / 1868 300 / 300 Lab / Micro Data 09/28/24 06:54 09/28/24 06:54 Labs: Laboratory Results - last 24 hr 09/27/24 06:43: Sodium 137, Potassium 4.1, Chloride 105, Carbon Dioxide 17.3 L, Anion Gap 15, BUN 13, Creatinine 0.86, Estim Creat Clear Calc 58.51, Est GFR (MDRD) Non-Af 70, BUN/Creatinine Ratio 14.6, Glucose 118 H, Calcium 8.7 09/27/24 10:36: POC Glucose 197 H 09/27/24 15:53: POC Glucose 127 H 09/27/24 21:47: POC Glucose 113 H 09/28/24 06:30: POC Glucose 109 H 09/28/24 06:54: WBC 8.0, RBC 4.82, Hgb 13.2, Hct 41.6, MCV 86.3, MCH 27.4, MCHC 31.7 L, RDW Std Deviation 49.0 H, RDW Coeff of Nabor 15.6 H, Plt Count 262, MPV 10.9, Immature Gran % (Auto) 0.400, Neut % (Auto) 76.1 H, Lymph % (Auto) 13.2 L, [place] % (Auto) 8.9, Eos % (Auto) 1.0, Baso % (Auto) 0.4, Absolute Neuts (auto) 6.1, Absolute Lymphs (auto) 1.06, Nucleated RBC % 0 Micro: Microbiology 09/22/24 14:50 Blood Culture (Wb) - Anticubital Left Blood Culture - Final No growth in 5 days. 09/22/24 14:58 Blood Culture (Wb) - Anticubital Right Blood Culture - Final No growth in 5 days. 09/23/24 14:00 Wound - Abdominal Gram Stain - Final 09/23/24 14:00 Wound - Abdominal Wound Culture - Final Gram positive scarlett 09/23/24 07:02 Stool Clostridioides difficile (PCR) - Final 09/22/24 09:15 Stool Stool Occult Blood (BHAVIN) - Final Physical Exam Const oriented x3 and no apparent distress Resp normal respiratory effort GI GI Narrative: Nondistended, operative dressing initially intact but once this is removed patient's incision remains well-approximated with skin cyndi. Wound is nonerythematous and nondraining. Patient has mild tenderness with removal of dressing but is otherwise nontender with palpation. Assessment & Plan Assessment/Plan (1) Carcinomatosis: PLAN: Patient is postoperative day 4 from exploratory laparotomy with small bowel resection and reanastomosis. She is apparently tolerating her full liquid diet without difficulty and having regular loose bowel movements. Therefore I recommend advancement to a transitional diet. Additionally, we will transition her IV antibiotics to an oral route in preparation for discharge. We are are looking for total coverage of 1 week after her operation. If patient tolerates these changes I believe she will be ready for discharge to home from a surgical standpoint by tomorrow. Lastly, we discussed that she is approved to shower over and uncover incision as early as today. Bryce Boyle MD General Surgery Endocrine Surgery Pager: [facility] [address] [place] [address], [facility], [address] [place] [address] Office: [phone] Charges/Coding Visit Charges Inpatient E&M: 60619 Subs Hosp L2
[2024-09-28] MEDS: Amiodarone 200 MG Tablet PO (09:08)
[2024-09-28] MEDS: Lactobacillis Acidophilus 1 CAP PO ×2 (09:11→22:53)
[2024-09-28] MEDS: DULoxetine Hcl 60 MG Capsule PO (09:11)
[2024-09-28] MEDS: Fenofibrate 145 MG Tablet PO (09:12)
[2024-09-28] MEDS: Digoxin 125 MCG Tablet PO (09:12)
[2024-09-28] MEDS: Tolterodine Tartrate 4 MG CAP.SA PO (09:13)
[2024-09-28] MEDS: Cholecalciferol (VIT D3) 25 MCG TABLET (1,000 UNITS) 50 MCG PO (09:13)
[2024-09-28] MEDS: Magnesium Chloride 64 MG Delay Rel.Tablet 128 MG PO (09:18)
[2024-09-28] MEDS: Metoprolol Tartrate 50 MG Tablet PO ×2 (09:18→22:52)
[2024-09-28] MEDS: Ezetimibe 10 MG Tablet PO (09:19)
[2024-09-28] MEDS: APIXABAN 5 MG TABLET PO ×2 (09:31→22:56)
[2024-09-28] MEDS: Glimepiride 2 MG Tablet PO (09:32)
[2024-09-28] MEDS: Furosemide 40 MG Tablet PO (09:32)
[2024-09-28 09:56] LABS: Anion Gap 16 (5-15); BUN 12 mg/dL (4-19); BUN/Creat Ratio 13.2 RATIO (10-20); Chloride 103 mmol/L (98-108); Creatinine, Serum 0.93 mg/dL (0.70-1.20); EST Glomerular Filtration Rate 64 (>60); Estimated Creatinine Clearance 54.11 ml/min (50-250); Glucose 100 mg/dL (70-99); Sodium Level 139 mmol/L (133-145)
[2024-09-28] MEDS: Acetaminophen 325 MG Tablet 650 MG PO ×2 (11:10→19:52)
[2024-09-28] MEDS: levoFLOXacin IV 500 MG/100 ML BAG 100 MG IV (11:11)
[2024-09-28] MEDS: Menthol/Lanolin/Calamine/Znox 113 GM Tube 1 APPLIC TOPICAL ×2 (11:11→22:53)
--- NOTE | 2024-09-28 12:06 | PCM.PN.HOSP ---
Reason for Visit Reason for Visit: Diagnoses Disseminated malignant neoplasm, unspecified (09/22/24) Umbilical hernia with gangrene (09/22/24) Objective Data Objective Data Vital Signs: Vital Signs Temp Pulse Resp BP Pulse Ox O2 Del Method O2 Flow Rate 98.6 F 69 20 H 151/62 H 94 Room Air 2 09/28/24 06:26 09/28/24 09:18 09/28/24 07:43 09/28/24 06:26 09/28/24 07:43 09/28/24 07:43 09/25/24 05:00 Oxygen Flow Rate (L/min) 2 Oxygen Delivery Method Room Air Weight: 208 lb 15.971 oz Body Mass Index (BMI) 38.5 Intake & Output: Intake and Output for Last 24 Hours 09/26/24 09/27/24 09/28/24 23:59 23:59 23:59 Intake Total 3050 / 3050 2868 / 2868 400 / 400 Output Total 1000 / 1000 Balance 3050 / 3050 1868 / 1868 400 / 400 Lab / Micro Data 09/28/24 06:54 09/28/24 06:54 Labs: Laboratory Results - last 24 hr 09/27/24 15:53: POC Glucose 127 H 09/27/24 21:47: POC Glucose 113 H 09/28/24 06:30: POC Glucose 109 H 09/28/24 06:54: WBC 8.0, RBC 4.82, Hgb 13.2, Hct 41.6, MCV 86.3, MCH 27.4, MCHC 31.7 L, RDW Std Deviation 49.0 H, RDW Coeff of Nabor 15.6 H, Plt Count 262, MPV 10.9, Immature Gran % (Auto) 0.400, Neut % (Auto) 76.1 H, Lymph % (Auto) 13.2 L, [place] % (Auto) 8.9, Eos % (Auto) 1.0, Baso % (Auto) 0.4, Absolute Neuts (auto) 6.1, Absolute Lymphs (auto) 1.06, Nucleated RBC % 0, Sodium 139, Potassium 4.0, Chloride 103, Carbon Dioxide 20.0 L, Anion Gap 16 H, BUN 12, Creatinine 0.93, Estim Creat Clear Calc 54.11, Est GFR (MDRD) Non-Af 64, BUN/Creatinine Ratio 13.2, Glucose 100 H, Hemoglobin A1c 6.0, Calcium 9.0 Micro: Microbiology 09/22/24 14:50 Blood Culture (Wb) - Anticubital Left Blood Culture - Final No growth in 5 days. 09/22/24 14:58 Blood Culture (Wb) - Anticubital Right Blood Culture - Final No growth in 5 days. 09/23/24 14:00 Wound - Abdominal Gram Stain - Final 09/23/24 14:00 Wound - Abdominal Wound Culture - Final Gram positive scarlett 09/23/24 07:02 Stool Clostridioides difficile (PCR) - Final 09/22/24 09:15 Stool Stool Occult Blood (BHAVIN) - Final Physical Exam Narrative Seen and examined Patient has mild leg swelling. Lasix 40 mg IV ordered. Diet advanced to soft diet. Moving her bowels and flatus P BP is elevated in systolic 150s to 160s patient doing incentive spirometry. Surgeon allowed clear liquids. Physical exam: General: Awake, alert oriented x3, Cooperative. BMI 38.2 kg per square HEENT: Atraumatic, PERRLA, EOMI, Normocephalic Oral: Oral mucosa dry. No Gingival or Mucosal Lesions/ Ulcerations Neck: Supple, No JVD, Negative Carotid Bruits Chest wall/Lungs: Air entry diminished in right lung base, possible right basilar atelectasis. No crepitation Cardiovascular: Irregular rhythm, A-fib, normal S1, Normal S2, systolic murmur Abdomen: Surgical dressing. Long midline abdominal surgical scar. Bowel sounds absent. Soft. : No dysuria. No renal angle tenderness. No suprapubic tenderness. Extremities: No edema, Capillary Refill Less than 3 Seconds Skin: Surgical dressing is dry. Musculoskeletal: No Tenderness to Palpation of Joints or Extremities. ROM mildly restricted. Neurological: Cranial nerves II-XII grossly intact, DTR 2+/4. No acute focal neurological deficit. Psych/Mental Status: Flat affect Assessment & Plan Assessment/Plan (1) Umbilical hernia with gangrene: PLAN: Plan This 78-year-old female with history of ovarian cancer admitted with seropurulent/blood mixed discharge from umbilicus since April 2024. Mild low-grade fever and periumbilical abdominal pain 1. Umbilical hernia complicated with infection, ulceration and gangrene of the umbilical skin: Patient is being admitted on [facility] floor. Does not meet criteria for sepsis, heart rate blood pressure or control. No tachypnea or hypoxia. CT abdomen individually reviewed and shows moderate stenosis umbilical hernia containing fat and bowel with no evidence of strangulation. On IV fluid Ringer lactate. Started on IV Levaquin and Flagyl. IV clindamycin ordered for suppression of her toxin and anaerobic infect, x 2 doses patient was seen by surgeon Dr. Burkett. Aspirin and Eliquis on hold. Plan for or on Monday/ of this week. 09/23: Plan for surgery tomorrow. Dr. Burkett explained the surgery to the patient which might need excising the necrotic tissue and trying to repair the hernia. Further depends on the operative findings. 09/24: Patient had ventral hernia repair with small bowel resection and anastomosis on 09/24/2024. Biopsy of carcinomatosis. Postop diagnosis is ventral hernia with umbilical necrosis, carcinomatosis of small bowel involvement. Discussed with the surgeon Dr. Burkett. Hospice consult appropriate and called. CODE STATUS changed to DNR CC. DNRCC papers signed. 09/25: Postop day 1. With hospice meeting in the afternoon today. 09/26: Postop day 2. Wound culture growing GPR. Continue Levaquin and Flagyl for short course. Patient had bowel movement and flatus. Clear liquid Dilaudid. Discussed with the patient and psychiatric social worker supervisor. Surgeon note reviewed. Plan for discharge over the weekend possible to hospice 09/27 : Positive fluid about 10 L. Mild metabolic acidosis, bicarb 17.3 with anion gap 15. Right lung base decreased breath sound. IV Lasix 20 mg ordered. Oral 40 mg to resume from tomorrow. Earlier IV fluid was discontinued and full liquid advanced by Dr. Burkett. 09/28: Lasix 40 mg IV 1 dose ordered. Lisinopril dose increased to 20 mg p.o. twice daily. Patient on glimepiride. Discussed with surgeon Dr. Boyle. Plan for discharge tomorrow with home hospice. 2. Ovarian cancer status post debulking surgery and chemotherapy: Patient on chemotherapy. Home medications does not show active chemotherapy. She follows oncologist Dr. Ezekiel Ochoa. 09/24: As mentioned above there was diffuse carcinomatosis of peritoneal lining and peritoneal cavity. Biopsy was taken. Poor prognosis. Hospice care. 3. COPD/obstructive sleep apnea/morbid obesity: Patient on maintenance inhaler, Wixela at home. On CPAP 11 cm of water. Patient advised to bring home CPAP. BMI 38.2 kg/m? consistent with morbid obesity. 4. Moderately severe oropharyngeal dysphagia: During previous hospitalization modified barium swallow done on 05/16/2024 showed moderate severe oropharyngeal dysphagia. Speech therapist ordered 5. Chronic A-fib: Twelve-lead EKG done in the ER shows A-fib with slow ventricular rate, [address]-T changes, T inversion in V4-V6. Last EKG in May 16 showed A-fib with RVR. Patient on amiodarone, metoprolol and digoxin continued. Eliquis on hold as mentioned above . 09/27: Eliquis resumed 6. CKD stage IIIa: Patient had ROSANA in May 2024. She also had right pyelonephritis from infected obstructive right UPJ stone. She had laser lithotripsy and stent removal in first week of August 2024. She follows Dr. Wolfe 09/27: Antihypertensive medications resumed. 7. Chronic atherosclerotic heart disease without angina and benign essential hypertension: Lisinopril 20 mg twice daily, titrate the dose according to blood pressure 8. Type 2 diabetes mellitus: Last A1c was 5.5% on July 29, 2024: Glucose in BMP is 119. Lactic acid 1.6. Accu-Chek before meals and at bedtime with Humalog sliding scale coverage and hypoglycemia protocol. Patient's daughter said that she gets hypoglycemia when she has decreased oral intake in 60s to 80s. Usually her sugars are in the 160s in normal health. 09/23: Hold if glucose less than 130 mg/dl, blood sugar was 66. Patient started on IV fluid D5. Hypoglycemia protocol followed. Glucose is 127. Continue IV fluid D5 W half NaCl plus KCl at 50 mL/h from now till patient goes for surgery. 3: Continue IV fluid with D5W for nutritional support and rehydration. 09/25: Glucoses between 110-150. Continue IV fluid D5 half NS +20 mEq KCl 3: Continue [place]uc[place]. Glimepiride from tomorrow a.m. with holding parameters 9. Morbid obesity: Microfilm Clerk consult. Weight loss counseling. 10. DVT prophylaxis: bilateral SCDs Microbiology Past 72 Hours 09/23/24 14:00 Wound - Abdominal Gram Stain - Final 09/23/24 14:00 Wound - Abdominal Wound Culture - Final Gram positive scarlett 09/22/24 14:58 Blood Culture (Wb) - Anticubital Right Blood Culture - Preliminary No growth in 48 hours. 09/22/24 14:50 Blood Culture (Wb) - Anticubital Left Blood Culture - Preliminary No growth in 48 hours. Laboratory Results 09/26/24 17:38: POC Glucose 129 H 09/26/24 23:26: POC Glucose 105 09/27/24 06:31: POC Glucose 112 H 09/27/24 06:43: WBC 7.1, RBC 4.87, Hgb 13.5, Hct 42.9, MCV 88.1, MCH 27.7, MCHC 31.5 L, RDW Std Deviation 49.9 H, RDW Coeff of Nabor 15.6 H, Plt Count 259, MPV 10.7, Immature Gran % (Auto) 0.600, Neut % (Auto) 75.3 H, Lymph % (Auto) 11.9 L, [place] % (Auto) 10.8 H, Eos % (Auto) 1.0, Baso % (Auto) 0.4, Absolute Neuts (auto) 5.4, Absolute Lymphs (auto) 0.85, Nucleated RBC % 0, Sodium 137, Potassium 4.1, Chloride 105, Carbon Dioxide 17.3 L, Anion Gap 15, BUN 13, Creatinine 0.86, Estim Creat Clear Calc 58.51, Est GFR (MDRD) Non-Af 70, BUN/Creatinine Ratio 14.6, Glucose 118 H, Calcium 8.7 09/27/24 10:36: POC Glucose 197 H Living will/advanced directive/end of life care: Patient does have living will or advanced directive. Her power of assistant attorney general for health is her daughter present in the room. After discussion of benefits/risks procedures involved with full code, DNR CC arrest and DNR CC, the patient opted for DNR CC. She had DNRCC record and papers signed during previous articulation by Dr. Arya Robertson. Also informed that her DNRCC status will be suspended for 48 hours after surgery. The patient and her daughter agreed. Patient doesn't want artificial life support including intubation, tube feed, ventilator and/chest compression, central venous catheter, vasopressor and DC shock if needed Total time spent in [id number] encounter in discussion of advanced directive 17 minutes. Clinical Impression(s) from Imaging Studies Abdomen/Pelvis CT 09/22/24 10:14 IMPRESSION: 1. Moderate-sized hernia containing fluid fat and bowel with no evidence of strangulation 2. Hepatic steatosis 3. Mild splenomegaly 4. Nonobstructive calculus in the left kidney One or more dose reduction techniques were used (e.g., Automated exposure control, adjustment of the mA and/or kV according to patient size, use of iterative reconstruction technique). Reading Location: [facility] Charges/Coding Visit Charges Inpatient E&M: 31498 Subs Hosp L2
[2024-09-28 12:48] LABS: Bedside Glucose 106 mg/dL (74-106)
[2024-09-28] MEDS: Furosemide 40 MG/4 ML Vial IV (13:54)
[2024-09-28] MEDS: metroNIDAZOLE 500 MG Tablet PO ×2 (14:12→18:32)
[2024-09-28] MEDS: Lisinopril 20 MG Tablet PO (18:32)
[2024-09-28 19:15] LABS: Bedside Glucose 101 mg/dL (74-106)
[2024-09-28] MEDS: Doxazosin 4 MG Tablet PO (22:53)
[2024-09-28 23:17] LABS: Bedside Glucose 94 mg/dL (74-106)
[2024-09-29 03:00] VITALS: BP 127/65; PULSE 56; RESP 16; TEMP 36.6; O2SAT 96
[2024-09-29] MEDS: levoFLOXacin 500 MG Tablet PO (06:19)
[2024-09-29] MEDS: Nystatin Powder 15gm Bottle 1 APPLIC TOPICAL (06:20)
[2024-09-29] MEDS: Lisinopril 20 MG Tablet PO (06:20)
[2024-09-29 07:17] LABS: Bedside Glucose 99 mg/dL (74-106)
[2024-09-29 07:30] VITALS: PULSE 71; RESP 18; O2SAT 94
[2024-09-29] MEDS: Budesonide Respules 0.5 MG/2 ML AMPUL.NEB. INHALATION (07:30)
--- NOTE | 2024-09-29 07:44 | DCINST_ITS ---
Discharge Instructions Diet Discharge Diet: Light diet - advance as tolerated DC O2, CPAP, BIPAP needs Home O2 Discharge instructions: No Dressing / Incision Discharge Activity: Return to Normal Activity Weight Bearing Status: Weight bearing as tolerated Dressing / Incision Call your doctor if you observe: - (Discharge home hospice ) Follow Up Care When: IN 2 WEEKS Test Results: Test results from this visit will be discussed in further detail at your follow- up appointment, if applicable. Discharge Plan Admission Admit Date/Time: 09/22/24 11:18 Primary Reason for Your Visit: Obstructive umbilical hernia with gangrenous skin. Attending Provider: King Watkins Primary Care Provider: Quique Mims Consulting Providers: Carlos Burkett; Iker Germain; Jamal Reis Jennifer; Gabriela Locke; Ana María Andrews AERONAUTICAL ENGINEERING PROFESSOR; Darling Ochoa; Richard Macedo Instructions Additional Instructions / Restrictions: Advised [id number] Tylenol 1 g Q8 hourly as needed for severe pain.
--- NOTE | 2024-09-29 07:44 | PCM.DC ---
Discharge Instructions Diet Discharge Diet: Light diet - advance as tolerated DC O2, CPAP, BIPAP needs Home O2 Discharge instructions: No Dressing / Incision Discharge Activity: Return to Normal Activity Weight Bearing Status: Weight bearing as tolerated Dressing / Incision Call your doctor if you observe: - (Discharge home hospice ) Follow Up Care When: IN 2 WEEKS Test Results: Test results from this visit will be discussed in further detail at your follow-up appointment, if applicable. Discharge Plan Admission Admit Date/Time: 09/22/24 11:18 Primary Reason for Your Visit: Obstructive umbilical hernia with gangrenous skin. Attending Provider: King Watkins Primary Care Provider: Quique Mims Consulting Providers: Carlos Burkett; Iker Germain; Minna Reis; Lisa Casey; Gabriela Locke; Ana María Andrews FIELD APPLICATION ENGINEER; Darling Ochoa; Richard Macedo Instructions Additional Instructions / Restrictions: Advised [id number] Tylenol 1 g Q8 hourly as needed for severe pain. Lactobacillus/probiotic 1 tablet twice daily [id number] for 1 week. Discharge Orders/Prescriptions Prescriptions: New metronidazole 500 mg Tablet 500 mg PO TIDCM 2 Days Qty: 6 0RF levofloxacin 500 mg Tablet 500 mg PO DAILY@0600 2 Days Qty: 2 0RF L.acidoph,saliva-B.bif-S.therm 175 mg Capsule 1 cap PO BID Qty: 0 0RF Rx Instructions: for 1 week. OTC Probiotics sennosides-docusate sodium [Stimulant Laxative Plus] 8.6-50 mg Tablet 2 tab PO BID PRN PRN (Reason: Constipation) Qty: 0 0RF Continued (DME) compress.stocking,knee,reg,lrg Misc See Rx Instructions .ROUTE .MEDSUPPLY Qty: 2 1RF Rx Instructions: wear daily for venous insufficiency 20-30 mmHg magnesium oxide 400 mg magnesium capsule 400 mg PO DAILY multivitamin Tablet 1 tab PO DAILY cholecalciferol (vitamin D3) 50 mcg (2,000 unit) tablet 50 mcg PO QDAY fluticasone propion-salmeterol [Wixela Inhub] 100-50 mcg/dose blister with device 1 inh inhalation BID 90 Days Qty: 60 3RF albuterol sulfate [Ventolin HFA] 90 mcg/actuation HFA aerosol inhaler 2 puff inhalation QAM PRN (Reason: shortness of breath or wheezing) Qty: 8.5 3RF nystatin [Klayesta] 100,000 unit/gram powder 1 applic topical TID 90 Days Qty: 60 7RF lorazepam 0.5 mg tablet 0.5 mg PO BID PRN (Reason: agitation) (DME) lancing device Misc See Rx Instructions .ROUTE .MEDSUPPLY Qty: 1 0RF Rx Instructions: As directed ezetimibe [Zetia] 10 mg tablet 10 mg PO QDAY Qty: 90 2RF lisinopril 20 mg tablet 20 mg PO BID Qty: 200 2RF duloxetine 60 mg capsule,delayed release(DR/EC) 60 mg PO DAILY Qty: 90 3RF Eliquis 5 mg tablet 5 mg PO BID Qty: 180 3RF Patient Comments: STOP 3 DAYS PRIOR TO PROCEDURE fenofibrate micronized 200 mg capsule 200 mg PO QDAY Qty: 90 3RF tolterodine 2 mg tablet 2 mg PO BID Qty: 180 1RF furosemide 40 mg tablet 40 mg PO QDAY Qty: 90 1RF glimepiride 2 mg tablet 2 mg PO QAM Qty: 30 1RF Rx Instructions: administer with breakfast digoxin 125 mcg (0.125 mg) tablet 125 mcg PO DAILY Qty: 90 3RF amlodipine 5 mg tablet 5 mg PO QDAY Qty: 30 11RF doxazosin 4 mg tablet 4 mg PO QHS Qty: 90 3RF metoprolol tartrate 100 mg tablet 100 mg PO BID Qty: 180 3RF Held aspirin 81 mg tablet,chewable 81 mg PO QDAY Hold Instructions: Hold for atleast 1 week amiodarone 200 mg tablet 200 mg PO QDAY Qty: 90 3RF Hold Instructions: Hold while taking Levofloxacin and Flagyl Referrals / Follow Up: Quique Mims MD [Primary Care Provider] - Carlos Burkett MD [Med Staff - Active Staff] - Within 2 Weeks Disposition Disposition (needs filled in before D/C Order can be placed): Hospice in Home
[2024-09-29 08:42] VITALS: BP 140/78; PULSE 72; RESP 17; TEMP 36.5; O2SAT 96
[2024-09-29] MEDS: Glimepiride 2 MG Tablet PO (08:43)
[2024-09-29] MEDS: Amiodarone 200 MG Tablet PO (08:43)
[2024-09-29] MEDS: DULoxetine Hcl 60 MG Capsule PO (08:44)
[2024-09-29] MEDS: Lactobacillis Acidophilus 1 CAP PO (08:44)
[2024-09-29] MEDS: metroNIDAZOLE 500 MG Tablet PO (08:44)
[2024-09-29] MEDS: Menthol/Lanolin/Calamine/Znox 113 GM Tube 1 APPLIC TOPICAL (08:44)
[2024-09-29] MEDS: APIXABAN 5 MG TABLET PO (08:48)
[2024-09-29] MEDS: Tolterodine Tartrate 4 MG CAP.SA PO (08:48)
[2024-09-29 08:49] VITALS: PULSE 72
[2024-09-29] MEDS: Ezetimibe 10 MG Tablet PO (08:49)
[2024-09-29] MEDS: Metoprolol Tartrate 50 MG Tablet PO (08:49)
[2024-09-29] MEDS: Fenofibrate 145 MG Tablet PO (08:49)
[2024-09-29] MEDS: Magnesium Chloride 64 MG Delay Rel.Tablet 128 MG PO (08:49)
[2024-09-29] MEDS: Digoxin 125 MCG Tablet PO (08:49)
[2024-09-29] MEDS: Cholecalciferol (VIT D3) 25 MCG TABLET (1,000 UNITS) 50 MCG PO (08:49)
--- NOTE | 2024-09-29 10:30 | PCM.DC.SUM ---
Providers Date of Admission: 09/22/24 Date of Discharge: 09/29/24 Primary Care Physician: Dr. Quique Mims MD Consultations 09/22/24 13:57 Consult: General Surgery Routine Consulting Provider: Carlos Burkett Reason for Consult: Umbilicus hernia, infected EMERGENT Consult: No Notified: Yes Date Notified: 09/22/24 Time Notified: 12:20 Method of Notification: ED Physician Initiated 09/22/24 14:26 Consult: Infectious Disease Routine Consulting Provider: Richard Macedo Reason for Consult: infected umblical hernia EMERGENT Consult: No Notified: Yes Date Notified: 09/22/24 Time Notified: 14:27 Method of Notification: Text 09/24/24 12:26 Consult: Hospice / Palliative Care Routine Consulting Provider: [facility] Reason for Consult: carcinomatosis EMERGENT Consult: No Notified: Yes Date Notified: 09/24/24 Time Notified: 15:06 Method of Notification: Answering Service Comments:: referral made by social worker delinquency prevention Marielle. Reason For Visit: INFECTED UMBILILCAL HERNIA W/NECROTIC SKIN Diagnosis Discharge Diagnosis (1) Umbilical hernia with gangrene: Status: Acute Code(s): K42.1 - Umbilical hernia with gangrene Plan This 78-year-old female with history of ovarian cancer admitted with seropurulent/blood mixed discharge from umbilicus since April 2024. Mild low-grade fever and periumbilical abdominal pain 1. Umbilical hernia complicated with infection, ulceration and gangrene of the umbilical skin: [facility] Does not meet criteria for sepsis, heart rate blood pressure or control. No tachypnea or hypoxia. CT abdomen individually reviewed and shows moderate stenosis umbilical hernia containing fat and bowel with no evidence of strangulation. On IV fluid Ringer lactate. Started on IV Levaquin and Flagyl. IV clindamycin ordered for suppression of her toxin and anaerobic infect, x 2 doses patient was seen by surgeon Dr. Burkett. Aspirin and Eliquis on hold. Plan for or on Monday/ of this week. 09/23: Plan for surgery tomorrow. Dr. Burkett explained the surgery to the patient which might need excising the necrotic tissue and trying to repair the hernia. Further depends on the operative findings. 09/24: Patient had ventral hernia repair with small bowel resection and anastomosis on 09/24/2024. Biopsy of carcinomatosis. Postop diagnosis is ventral hernia with umbilical necrosis, carcinomatosis of small bowel involvement. Discussed with the surgeon Dr. Burkett. Hospice consult appropriate and called. CODE STATUS changed to DNR CC. DNRCC papers signed. 09/25: Postop day 1. With hospice meeting in the afternoon today. 09/26: Postop day 2. Wound culture growing GPR. Continue Levaquin and Flagyl for short course. Patient had bowel movement and flatus. Clear liquid Dilaudid. Discussed with the patient and social worker delinquency prevention. Surgeon note reviewed. Plan for discharge over the weekend possible to hospice 09/27 : Positive fluid about 10 L. Mild metabolic acidosis, bicarb 17.3 with anion gap 15. Right lung base decreased breath sound. IV Lasix 20 mg ordered. Oral 40 mg to resume from tomorrow. Earlier IV fluid was discontinued and full liquid advanced by Dr. Burkett. 09/28: Lasix 40 mg IV 1 dose ordered. Lisinopril dose increased to 20 mg p.o. twice daily. Patient on glimepiride. Discussed with surgeon Dr. Boyle. Plan for discharge tomorrow with home hospice. 09/29: Patient discharged on home medications including Lasix lisinopril 20 mg twice daily and glimepiride. Discussed with Dr. Boyle. Recommended 1 week of antibiotic after surgery and she will complete 2 more days on 10/01/2023. She had antibiotic started since admission on Levaquin and Flagyl. Prescription for Levaquin and Flagyl given. 2. Ovarian cancer status post debulking surgery and chemotherapy: Patient on chemotherapy. Home medications does not show active chemotherapy. She follows oncologist Dr. Ezekiel Ochoa. 09/24: As mentioned above there was diffuse carcinomatosis of peritoneal lining and peritoneal cavity. Biopsy was taken. Poor prognosis. Hospice care. 09/29: Patient is being discharged home with home hospice. 3. COPD/obstructive sleep apnea/morbid obesity: Patient on maintenance inhaler, Wixela at home. On CPAP 11 cm of water. Patient advised to bring home CPAP. BMI 38.2 kg/m? consistent with morbid obesity. 4. Moderately severe oropharyngeal dysphagia: During previous hospitalization modified barium swallow done on 05/16/2024 showed moderate severe oropharyngeal dysphagia. Speech therapist ordered 5. Chronic A-fib: Twelve-lead EKG done in the ER shows A-fib with slow ventricular rate, [address]-T changes, T inversion in V4-V6. Last EKG in May 16 showed A-fib with RVR. Patient on amiodarone, metoprolol and digoxin continued. Eliquis on hold as mentioned above . 09/27: Eliquis resumed 6. CKD stage IIIa: Patient had ROSANA in May 2024. She also had right pyelonephritis from infected obstructive right UPJ stone. She had laser lithotripsy and stent removal in first week of August 2024. She follows Dr. Wolfe 09/27: Antihypertensive medications resumed. 7. Chronic atherosclerotic heart disease without angina and benign essential hypertension: Lisinopril 20 mg twice daily, titrate the dose according to blood pressure 8. Type 2 diabetes mellitus: Last A1c was 5.5% on July 29, 2024: Glucose in BMP is 119. Lactic acid 1.6. Accu-Chek before meals and at bedtime with Humalog sliding scale coverage and hypoglycemia protocol. Patient's daughter said that she gets hypoglycemia when she has decreased oral intake in 60s to 80s. Usually her sugars are in the 160s in normal health. 09/23: Hold if glucose less than 130 mg/dl, blood sugar was 66. Patient started on IV fluid D5. Hypoglycemia protocol followed. Glucose is 127. Continue IV fluid D5 W half NaCl plus KCl at 50 mL/h from now till patient goes for surgery. 09/24: Continue IV fluid with D5W for nutritional support and rehydration. 09/25: Glucoses between 110-150. Continue IV fluid D5 half NS +20 mEq KCl 09/26: Continue [place]. Glimepiride from tomorrow a.m. with holding parameters 09/27: Blood pressure is controlled. Glucose is also controlled. 9. Morbid obesity: Camera Repairer consult. Weight loss counseling. 10. DVT prophylaxis: bilateral SCDs Microbiology Past 72 Hours 09/23/24 14:00 Wound - Abdominal Gram Stain - Final 09/23/24 14:00 Wound - Abdominal Wound Culture - Final Gram positive scarlett 09/22/24 14:58 Blood Culture (Wb) - Anticubital Right Blood Culture - Preliminary No growth in 48 hours. 09/22/24 14:50 Blood Culture (Wb) - Anticubital Left Blood Culture - Preliminary No growth in 48 hours. Laboratory Results 09/26/24 17:38: POC Glucose 129 H 09/26/24 23:26: POC Glucose 105 09/27/24 06:31: POC Glucose 112 H 09/27/24 06:43: WBC 7.1, RBC 4.87, Hgb 13.5, Hct 42.9, MCV 88.1, MCH 27.7, MCHC 31.5 L, RDW Std Deviation 49.9 H, RDW Coeff of Nabor 15.6 H, Plt Count 259, MPV 10.7, Immature Gran % (Auto) 0.600, Neut % (Auto) 75.3 H, Lymph % (Auto) 11.9 L, [place] % (Auto) 10.8 H, Eos % (Auto) 1.0, Baso % (Auto) 0.4, Absolute Neuts (auto) 5.4, Absolute Lymphs (auto) 0.85, Nucleated RBC % 0, Sodium 137, Potassium 4.1, Chloride 105, Carbon Dioxide 17.3 L, Anion Gap 15, BUN 13, Creatinine 0.86, Estim Creat Clear Calc 58.51, Est GFR (MDRD) Non-Af 70, BUN/Creatinine Ratio 14.6, Glucose 118 H, Calcium 8.7 09/27/24 10:36: POC Glucose 197 H Living will/advanced directive/end of life care: Patient does have living will or advanced directive. Her power of vehicle dynamics engineer for health is her daughter present in the room. After discussion of benefits/risks procedures involved with full code, DNR CC arrest and DNR CC, the patient opted for DNR CC. She had DNRCC record and papers signed during previous articulation by Dr. Arya Robertson. Also informed that her DNRCC status will be suspended for 48 hours after surgery. The patient and her daughter agreed. Patient doesn't want artificial life support including intubation, tube feed, ventilator and/chest compression, central venous catheter, vasopressor and DC shock if needed Total time spent in [id number] encounter in discussion of advanced directive 17 minutes. Clinical Impression(s) from Imaging Studies Abdomen/Pelvis CT 09/22/24 10:14 IMPRESSION: 1. Moderate-sized hernia containing fluid fat and bowel with no evidence of strangulation 2. Hepatic steatosis 3. Mild splenomegaly 4. Nonobstructive calculus in the left kidney One or more dose reduction techniques were used (e.g., Automated exposure control, adjustment of the mA and/or kV according to patient size, use of iterative reconstruction technique). [facility] Medications at Discharge Home Medications compress.stocking,knee,reg,lrg #2 ea 05/06/19 lancing device #1 ea 12/29/20 multivitamin 1 tab PO DAILY 11/25/22 ezetimibe 10 mg tablet (Zetia) 10 mg PO QDAY cholesterol #90 tabs 02/06/24 magnesium oxide 400 mg PO DAILY supplement 03/22/24 lisinopril 20 mg tablet 20 mg PO BID #200 TABLETS 04/30/24 duloxetine 60 mg capsule,delayed release 60 mg PO DAILY #90 caps 05/08/24 apixaban 5 mg tablet (Eliquis) 5 mg PO BID #180 tabs 06/14/24 aspirin 81 mg chewable tablet 81 mg PO QDAY 07/04/24 Held on 09/29/24. Instructions: Hold for atleast 1 week cholecalciferol (vitamin D3) 50 mcg (2,000 unit) tablet 50 mcg PO QDAY 07/04/24 fenofibrate micronized 200 mg capsule 200 mg PO QDAY #90 caps 07/05/24 tolterodine 2 mg tablet 2 mg PO BID #180 tabs 07/10/24 amiodarone 200 mg tablet 200 mg PO QDAY #90 tabs 07/11/24 Held on 09/29/24. Instructions: Hold while taking Levofloxacin and Flagyl lorazepam 0.5 mg tablet 0.5 mg PO BID PRN agitation 07/11/24 furosemide 40 mg tablet 40 mg PO QDAY #90 tabs 07/19/24 albuterol sulfate 90 mcg/actuation aerosol inhaler (Ventolin HFA) 2 puff inhalation QAM PRN shortness of breath or wheezing #8.5 grams 07/29/24 fluticasone 100 mcg-salmeterol 50 mcg/dose blistr powdr for inhalation (Wixela Inhub) 1 inh inhalation BID 3 months #60 ea 07/29/24 glimepiride 2 mg tablet 2 mg PO QAM #30 tabs 07/29/24 nystatin 100,000 unit/gram topical powder (Klayesta) 1 applic topical TID 3 months #60 grams 07/29/24 digoxin 125 mcg (0.125 mg) tablet 125 mcg PO DAILY HOLD if HR 55 or below #90 tabs 08/07/24 amlodipine 5 mg tablet 5 mg PO QDAY #30 tabs 09/02/24 doxazosin 4 mg tablet 4 mg PO QHS this is a dose increase #90 tabs 09/11/24 metoprolol tartrate 100 mg tablet 100 mg PO BID HOLD if BP 100 systolic or belo or HR 55 or below #180 tabs 09/19/24 L.acidophil,salivari-Bifido bifidum-Strep thermoph 175 mg capsule 1 cap PO BID #0 caps 09/29/24 levofloxacin 500 mg tablet 500 mg PO DAILY@0600 2 days #2 tabs 09/29/24 metronidazole 500 mg tablet 500 mg PO TIDCM 2 days #6 tabs 09/29/24 sennosides 8.6 mg-docusate sodium 50 mg tablet (Stimulant Laxative Plus) 2 tab PO BID PRN PRN Constipation #0 tabs 09/29/24 Physical Exam Narrative Seen and examined Leg swelling has improved after IV Lasix was given. On soft diet. Moving her bowels. No further bleeding per rectum. Blood pressure and heart rate controlled. Getting discharged with home hospice today Physical exam: General: Awake, alert oriented x3, Cooperative. BMI 38.2 kg per square HEENT: Atraumatic, PERRLA, EOMI, Normocephalic Oral: Oral mucosa dry. No Gingival or Mucosal Lesions/ Ulcerations Neck: Supple, No JVD, Negative Carotid Bruits Chest wall/Lungs: Air entry slightly diminished in right lung base, but improved. No crepitation Cardiovascular: Irregular rhythm, A-fib, normal S1, Normal S2, systolic murmur Abdomen: Surgical dressing. Long midline abdominal surgical scar. Bowel sounds absent. Soft. : No dysuria. No renal angle tenderness. No suprapubic tenderness. Extremities: No edema, Capillary Refill Less than 3 Seconds Skin: Surgical dressing is dry. Musculoskeletal: No Tenderness to Palpation of Joints or Extremities. ROM mildly restricted. Neurological: Cranial nerves II-XII grossly intact, DTR 2+/4. No acute focal neurological deficit. Psych/Mental Status: Flat affect Weight / BMI Weight Weight: 208 lb 15.971 oz Body Mass Index (BMI) 38.5 ABG / Lab / Microbiology Data 09/28/24 06:54 09/28/24 06:54 Laboratory: Laboratory Results - last 24 hr 09/28/24 06:54: Sodium 139, Potassium 4.0, Chloride 103, Carbon Dioxide 20.0 L, Anion Gap 16 H, BUN 12, Creatinine 0.93, Estim Creat Clear Calc 54.11, Est GFR (MDRD) Non-Af 64, BUN/Creatinine Ratio 13.2, Glucose 100 H, Hemoglobin A1c 6.0, Calcium 9.0 09/28/24 12:27: POC Glucose 106 09/28/24 18:29: POC Glucose 101 09/28/24 22:58: POC Glucose 94 09/29/24 06:25: POC Glucose 99 Microbiology: Microbiology 09/22/24 14:50 Blood Culture (Wb) - Anticubital Left Blood Culture - Final No growth in 5 days. 09/22/24 14:58 Blood Culture (Wb) - Anticubital Right Blood Culture - Final No growth in 5 days. 09/23/24 14:00 Wound - Abdominal Gram Stain - Final 09/23/24 14:00 Wound - Abdominal Wound Culture - Final Gram positive scarlett 09/23/24 07:02 Stool Clostridioides difficile (PCR) - Final 09/22/24 09:15 Stool Stool Occult Blood (BHAVIN) - Final D/C Instructions Discharge Diet: Light diet - advance as tolerated Weight Bearing Status: Weight bearing as tolerated Call your doctor if you observe: - (Discharge home hospice ) DC O2, CPAP, BIPAP Needs Home O2 Discharge instructions: No When: IN 2 WEEKS Meaningful Use Info Meaningful Use Meaningful Use Diagnoses (Choose all that apply): None applicable Ischemic Stroke Statin Dosing Therapy Reference: STATIN DOSE THERAPY REFERENCE: * Patients > 75 years receive moderate or high dose statin therapy. * Patients 75 years or YOUNGER should receive HIGH intensity statin dose unless contraindicated. You will be required to document reason for non-treatment if statin daily dose does not meet guidelines. HIGH DOSE STATIN THERAPY DAILY Atorvastatin > than or = to 40 mg Rosuvastatin > than or = to 20 mg Amlodipine + Atorvastatin > than or = to 2.5/40 mg Ezetimibe + Simvastatin 10/80 mg Simvastatin 80mg Discharge Plan Admission Admit Date/Time: 09/22/24 11:18 Primary Reason for Your Visit: Obstructive umbilical hernia with gangrenous skin. Attending Provider: King Watkins Primary Care Provider: Quique Mims Consulting Providers: Carlos Burkett; Iker Germain; Minna Reis; Lisa Casey; Gabriela Locke; Ana María Andrews NP; Darling Ochoa; Richard Macedo Instructions Additional Instructions / Restrictions: Advised gozb-yof-vvoyixs Tylenol 1 g Q8 hourly as needed for severe pain. Lactobacillus/probiotic 1 tablet twice daily [id number] for 1 week. Continue incentive spirometry and PEP for 1 week Discharge Orders/Prescriptions Prescriptions: New metronidazole 500 mg Tablet 500 mg PO TIDCM 2 Days Qty: 6 0RF levofloxacin 500 mg Tablet 500 mg PO DAILY@0600 2 Days Qty: 2 0RF L.acidoph,saliva-B.bif-S.therm 175 mg Capsule 1 cap PO BID Qty: 0 0RF Rx Instructions: for 1 week. OTC Probiotics sennosides-docusate sodium [Stimulant Laxative Plus] 8.6-50 mg Tablet 2 tab PO BID PRN PRN (Reason: Constipation) Qty: 0 0RF Continued (DME) compress.stocking,knee,reg,lrg Misc See Rx Instructions .ROUTE .MEDSUPPLY Qty: 2 1RF Rx Instructions: wear daily for venous insufficiency 20-30 mmHg magnesium oxide 400 mg magnesium capsule 400 mg PO DAILY multivitamin Tablet 1 tab PO DAILY cholecalciferol (vitamin D3) 50 mcg (2,000 unit) tablet 50 mcg PO QDAY fluticasone propion-salmeterol [Wixela Inhub] 100-50 mcg/dose blister with device 1 inh inhalation BID 90 Days Qty: 60 3RF albuterol sulfate [Ventolin HFA] 90 mcg/actuation HFA aerosol inhaler 2 puff inhalation QAM PRN (Reason: shortness of breath or wheezing) Qty: 8.5 3RF nystatin [Klayesta] 100,000 unit/gram powder 1 applic topical TID 90 Days Qty: 60 7RF lorazepam 0.5 mg tablet 0.5 mg PO BID PRN (Reason: agitation) (DME) lancing device Misc See Rx Instructions .ROUTE .MEDSUPPLY Qty: 1 0RF Rx Instructions: As directed ezetimibe [Zetia] 10 mg tablet 10 mg PO QDAY Qty: 90 2RF lisinopril 20 mg tablet 20 mg PO BID Qty: 200 2RF duloxetine 60 mg capsule,delayed release(DR/EC) 60 mg PO DAILY Qty: 90 3RF Eliquis 5 mg tablet 5 mg PO BID Qty: 180 3RF Patient Comments: STOP 3 DAYS PRIOR TO PROCEDURE fenofibrate micronized 200 mg capsule 200 mg PO QDAY Qty: 90 3RF tolterodine 2 mg tablet 2 mg PO BID Qty: 180 1RF furosemide 40 mg tablet 40 mg PO QDAY Qty: 90 1RF glimepiride 2 mg tablet 2 mg PO QAM Qty: 30 1RF Rx Instructions: administer with breakfast digoxin 125 mcg (0.125 mg) tablet 125 mcg PO DAILY Qty: 90 3RF amlodipine 5 mg tablet 5 mg PO QDAY Qty: 30 11RF doxazosin 4 mg tablet 4 mg PO QHS Qty: 90 3RF metoprolol tartrate 100 mg tablet 100 mg PO BID Qty: 180 3RF Held aspirin 81 mg tablet,chewable 81 mg PO QDAY Hold Instructions: Hold for atleast 1 week amiodarone 200 mg tablet 200 mg PO QDAY Qty: 90 3RF Hold Instructions: Hold while taking Levofloxacin and Flagyl Referrals / Follow Up: Carlos Burkett MD [Med Staff - Active Staff] - Within 2 Weeks Quique Mims MD [Primary Care Provider] - Disposition Disposition (needs filled in before D/C Order can be placed): Hospice in Home Charges/Coding Visit Charges Inpatient E&M: 45132 Disch Hosp >30min
== END 2024-09-29 11:59 | disposition hospice, home (50) | DRG 354 ==
LOC: ED 11:13 → MS3 11:55
PROVIDERS: Surgery; Admitting Provider Internal Medicine; Emergency Provider Surgery; PCP Internal Medicine; Visit Provider Internal Medicine
PROC: 0WQF0ZZ Repair Abdominal Wall, Open Approach (ICD-10-PCS; principal; 2024-09-24 10:45)
DX: K42.1 Umbilical hernia with gangrene (principal); I13.0 Hypertensive heart and chronic kidney disease with heart failure and stage 1 through stage 4 chronic kidney disease, or unspecified chronic kidney disease; C78.6 Secondary malignant neoplasm of retroperitoneum and peritoneum; C56.9 Malignant neoplasm of unspecified ovary; I50.32 Chronic diastolic (congestive) heart failure; E11.22 Type 2 diabetes mellitus with diabetic chronic kidney disease; E66.01 Morbid (severe) obesity due to excess calories; B96.89 Other specified bacterial agents as the cause of diseases classified elsewhere; Z51.5 Encounter for palliative care; J44.9 Chronic obstructive pulmonary disease, unspecified; N18.31 Chronic kidney disease, stage 3a; K76.0 Fatty (change of) liver, not elsewhere classified; I48.91 Unspecified atrial fibrillation; I25.10 Atherosclerotic heart disease of native coronary artery without angina pectoris; G47.33 Obstructive sleep apnea (adult) (pediatric); E78.5 Hyperlipidemia, unspecified; Z66 Do not resuscitate; Z68.38 Body mass index [BMI] 38.0-38.9, adult; Z79.84 Long term (current) use of oral hypoglycemic drugs; Z79.01 Long term (current) use of anticoagulants; R16.1 Splenomegaly, not elsewhere classified; K43.7 Other and unspecified ventral hernia with gangrene; Z92.21 Personal history of antineoplastic chemotherapy; Z79.899 Other long term (current) drug therapy; Z79.82 Long term (current) use of aspirin; Z79.51 Long term (current) use of inhaled steroids; Z88.1 Allergy status to other antibiotic agents; Z88.8 Allergy status to other drugs, medicaments and biological substances; Z98.890 Other specified postprocedural states; Z96.0 Presence of urogenital implants
CPT/HCPCS: 36415; 36591; 74177; 80048; 80053; 80076; 81001; 82274; 82962; 83036; 83605; 83690; 83735; 84100; 85025; 85610; 85730; 87040; 87070; 87205; 87493; 88302; 88305; 88331; 93005; 94640; 94668; 97162; 97166; 99285; Q9967; A4216; J1940; J2405

== ENCOUNTER → 2024-11-18 | Outpatient (CLI) | payer MEDICARE, SELFPAY ==
[2024-11-18 17:33] LABS: Digoxin Level 1.07 ng/mL (0.00-2.00)
== END | disposition home or self-care (01) ==
LOC: LABSPEC 16:35
PROVIDERS: PCP Internal Medicine; Referring Provider Emergency Medicine; Visit Provider Emergency Medicine
DX: I48.91 Unspecified atrial fibrillation (principal)
CPT/HCPCS: 80162